=== PATIENT | male | born 1950 | race Caucasian/White ===

== ENCOUNTER 2021-06-06 18:10 | Inpatient (IN) | payer MEDICARE, SELFPAY ==
--- NOTE | ~2021-06-06 | XR_ITS ---
EXAMINATION: XR CHEST CLINICAL INFORMATION: Shortness of breath COMPARISON: CT abdomen pelvis earlier this evening, chest radiograph 11/06/2019 TECHNIQUE: Frontal view of the chest was obtained. FINDINGS: The heart and pulmonary vessels appear normal. Some minimal left basilar atelectasis is seen. No acute infiltrates, pleural effusions or lung masses are seen. There is no evidence of CHF. XR/XR chest 1V IMPRESSION: No acute intrathoracic disease.
--- NOTE | ~2021-06-06 | CT_ITS ---
EXAMINATION: CT ABDOMEN AND PELVIS WITHOUT CONTRAST CLINICAL INFORMATION: Abdominal pain with question of colitis COMPARISON: CT abdomen pelvis 11/06/[address] abdomen pelvis 06/18/2019 TECHNIQUE: Multidetector volumetric imaging was performed from the superior aspect of the liver through the pubic symphysis. Sagittal and coronal reformatted images were obtained on the technologist's workstation. This CT examination was performed using dose optimization techniques as appropriate, variously including the following: *Automated exposure control *Adjustment of mA and/or kV according to patient size (this includes techniques or standardized protocols for targeted exams where dose is matched to indication/reason for exam; i.e. extremities or head) *Use of iterative reconstruction technique DLP: 753 mGy-cm FINDINGS: LUNG BASES: The visualized lung bases are unremarkable. LIVER, GALLBLADDER, AND BILIARY TREE: The liver is normal in size, shape, and attenuation. No focal hepatic lesion or biliary ductal dilatation is present. Status post cholecystectomy PANCREAS: Unremarkable. SPLEEN: Unremarkable. ADRENAL GLANDS: Unremarkable. KIDNEYS AND URETERS: The kidneys are normal in size, shape, and attenuation. No hydronephrosis, hydroureter, or calculi seen. Some renal cysts are present including a tiny hyperattenuating Bosniak class II right renal cortical cyst. No perinephric stranding. BLADDER: Unremarkable. GASTROINTESTINAL TRACT: The patient status post colectomy. There is dilated proximal small bowel seen in the upper abdomen. Distal small bowel loops are completely decompressed (4.5 cm proximally versus 1 cm distally). Transition point appears to be similar to that noted on 06/18/2019 CT scan in the left lower quadrant. ABDOMINAL WALL: Ileostomy right abdomen. LYMPH NODES: No retroperitoneal lymphadenopathy. VASCULAR: Calcific atherosclerotic changes present in the aorta and iliofemoral vessels. PELVIC VISCERA: Unremarkable. OSSEOUS STRUCTURES: Unremarkable. CT/CT abdomen pelvis wo con IMPRESSION: Small bowel obstruction with significantly dilated proximal jejunum and decompressed small caliber ileum. A transition zone appears to be present in the pelvis, similar to that noted on the 06/18/2019 study. Fleischner guidelines were followed.
--- NOTE | ~2021-06-06 | XR_ITS ---
EXAMINATION: XR CHEST CLINICAL INFORMATION: Enteric tube placement. COMPARISON: Chest radiograph done earlier today at 10:[address] abdomen/pelvis done earlier today at 8:23 PM. TECHNIQUE: AP view of the chest was obtained. FINDINGS: An enteric tube terminates in satisfactory positioning within the stomach. EKG wires overlie the patient. Stable appearance of the cardiomediastinal silhouette. Redemonstration of left lower lobe/retrocardiac opacities and a small left pleural effusion which are slightly more apparent in this examination due to differences in patient positioning. No new focal airspace opacities. Evaluation of pneumothorax is suboptimal since the lung apices are outside of the field of view. No acute osseous abnormalities. Dilated loops of small bowel are best appreciated on a CT of the abdomen from a few hours earlier. XR/XR chest 1V IMPRESSION: Enteric tube terminates in appropriate positioning within the stomach body. Left lower lobe/retrocardiac opacities are likely related with subsegmental atelectasis. Trace amount of left-sided pleural fluid.
[2021-06-06 18:22] VITALS: BP 118/72; BP 153/73; PULSE 82; PULSE 90; RESP 18; TEMP 36.8; O2SAT 97; O2SAT 98; BMI 31.9
--- NOTE | 2021-06-06 18:30 | ED.GENADULT ---
HPI - General Adult General Chief complaint: General Medical Stated complaint: NAUSEA,VOMITING,CHILLS Time Seen by Provider: 06/06/21 18:30 Source: patient Mode of arrival: EMS Limitations: no limitations History of Present Illness HPI narrative: Patient status post right hip replacement One week on 05/25/21 ago 3 days after discharge patient complaining of nausea vomiting and loose stools in the colostomy bag with chills no fever diffuse abdominal cramps+ no other family members sick stool is darkish in color patient is on Eliquis and taking Pepto-Bismol no shortness of breath no cough Related Data Home Medications Medication Instructions Recorded Confirmed abacavir 600 mg-dolutegravir 50 1 tab PO DAILY 06/06/21 06/06/21 mg-lamivudine 300 mg tablet (Triumeq) acetaminophen 500 mg tablet 500 mg PO BID PRN 06/06/21 06/06/21 albuterol sulfate 90 mcg/actuation 2 puff INHALATION QID PRN 06/06/21 06/06/21 aerosol inhaler amlodipine 10 mg tablet 10 mg PO DAILY 06/06/21 06/06/21 apixaban 2.5 mg tablet 2.5 mg PO BID 06/06/21 06/06/21 buprenorphine 8 mg-naloxone 2 mg 3 film SUBLINGUAL DAILY 06/06/21 06/06/21 sublingual film buspirone 5 mg tablet 5 mg PO TID 06/06/21 06/06/21 carvedilol 12.5 mg tablet 12.5 mg PO BID 06/06/21 06/06/21 cetirizine 10 mg tablet 10 mg PO DAILY PRN 06/06/21 06/06/21 diclofenac sodium 1 % topical gel 2 g TOPICAL BID 06/06/21 06/06/21 gabapentin 600 mg tablet 600 mg PO BID 06/06/21 06/06/21 hydrochlorothiazide 12.5 mg tablet 12.5 mg PO DAILY 06/06/21 06/06/21 hydromorphone 4 mg tablet 4 mg PO Q3H PRN 06/06/21 06/06/21 omeprazole 20 mg capsule,delayed 20 mg PO DAILY@0630 06/06/21 06/06/21 release pravastatin 40 mg tablet 40 mg PO BEDTIME 06/06/21 06/06/21 sertraline 50 mg tablet 75 mg PO DAILY 06/06/21 06/06/21 sitagliptin 50 mg tablet (Januvia) 50 mg PO DAILY 06/06/21 06/06/21 trazodone 100 mg tablet 100 mg PO BEDTIME PRN 06/06/21 06/06/21 Allergies Allergy/AdvReac Type Severity Reaction Status Date / Time ampicillin [AMPICILLIN] Allergy Mild HIVES Unverified 01/15/20 15:10 aspirin [ASPIRIN] Allergy Unknown RASH Unverified 01/15/20 15:10 Review of Systems Review of Systems: Yes all other systems are reviewed and are negative [facility] Past Medical History Medical History (Updated 06/07/21 @ 01:17 by Carlo Mirza MD) Chronic hepatitis Chronic use of nonprescription opiate drugs CKD (chronic kidney disease) Diabetes mellitus HIV (human immunodeficiency virus infection) HTN (hypertension), benign Hyperlipemia Pancreatitis Ulcerative colitis Surgical History (Updated 06/06/21 @ 21:58 by Carlo Mirza MD) H/O colectomy History of total left knee replacement (TKR) Hx of cholecystectomy Hx of splenectomy Status post right hip replacement Social History Social History Alcohol intake: never Patient Tobacco Use Status: Never used Tobacco Use of substances other than those prescribed or required for medical reasons: No Advance Directives: No Advance Directives Information Provided: Yes Physical Exam Vital Signs: Vital Signs: Last Vital Signs Temp 98.3 F 06/07/21 00:54 Pulse 86 06/07/21 00:54 Resp 15 06/07/21 00:54 BP 162/72 H 06/07/21 00:54 Pulse Ox 97 06/06/21 23:17 BMI result Body Mass Index 31.9 Appearance: Alert. Oriented X3. in mild distress. Eyes: Pallor+ no icterus ENT: Pharynx normal. Oral Mucosa moist Neck: Normal inspection. Neck supple. CVS: Normal heart rate and rhythm. Pulses normal. Respiratory: No respiratory distress. Equal air entry bilateral, no wheezing/rales/rhonchi Abdomen: slight distended , diffuse abdominal tenderness no rebound tenderness or guarding close him back in place with liquid dark maroon colored stool, guaiac positive, Bowel sounds are present, no mass palpable, no CVA tenderness Skin: Skin warm and dry. Normal skin color. Normal skin turgor. Extremities: Right leg edema ++ No calf tenderness right hip postop Neuro: Oriented X 3. No motor deficit. Medical Decision Making MDM Narrative Medical decision making narrative: Patient CT scan of the abdomen showed small-bowel obstruction with significant GI bleed on Eliquis hemoglobin dropped to 6.5 will give blood transfusion admit for GI bleed and MARY JO a G-tube placed drained clear liquid Lab Data Lab results reviewed: Yes I reviewed the patient's lab results. Result diagrams: 06/06/21 20:54 06/06/21 20:54 Labs: Lab Results 06/06/21 06/06/21 06/06/21 Range/Units 19:05 19:21 19:58 WBC (4.8-10.8) X10*3/uL RBC (4.60-5.80) X10*6/uL Hgb (14.0-18.0) g/dl Hct (42.0-52.0) % MCV (80.0-98.0) fL MCH (27.0-33.0) pg MCHC (31.0-36.0) g/dl RDW (11.0-16.0) % Plt Count (160-400) X10*3/uL MPV (9.4-12.4) fL Immature Gran % (Auto) (0.0-0.4) % Neut % (Auto) (45-73) % Lymph % (Auto) (20-40) % [place] % (Auto) (2-11) % Eos % (Auto) (0-4) % Baso % (Auto) (0-2) % Lymph # (Auto) (1.2-4.9) X10*3/uL [place] # (Auto) (0.1-1.2) X10*3/uL Eos # (Auto) (0.0-0.4) X10*3/uL Baso # (Auto) (0.0-0.2) X10*3/uL Abs Immat Gran (auto) (0.00-0.03) X10*3/uL Absolute Neuts (auto) (2.0-8.3) x10*3/uL Absolute Nucleated RBC (0.0-0.012) X10*3/uL Nucleated RBC % (auto) (0.0-0.2) /100WBC PT (9.9-13.0) SEC INR (0.9-1.1) APTT (24.1-38.0) SEC Sodium (135-145) mmol/L Potassium (3.3-5.1) mmol/L Chloride (96-108) mmol/L Carbon Dioxide (22-29) mmol/L Anion Gap (12-20) BUN (9-16) mg/dL Creatinine (0.5-1.4) mg/dL Estim Creat Clear Calc Estimated GFR Random Glucose (60-115) mg/dL Lactic Acid (0.5-2.0) mmol/L Calcium (8.4-10.2) mg/dL Magnesium (1.6-2.6) mg/dL Total Bilirubin (0.0-1.0) mg/dL AST (5-37) U/L ALT (0-40) U/L Alkaline Phosphatase (39-117) U/L Total Protein (6.5-8.0) g/dL Albumin (3.5-5.0) g/dL Urine Color Urine Appearance Urine pH (5.0-8.0) Ur Specific [place] (1.005-1.025) Urine Protein (NEG-TRACE) MG/DL Urine Glucose (UA) (NEG) MG/DL Urine Ketones (NEG) MG/DL Urine Blood (NEG) Urine Nitrite (NEG) Ur Leukocyte Esterase (NEG) Stool Occult Blood POSITIVE (NEGATIVE) COVID-19 (RAYNA) Negative (Negative) COVID-19 Clin Com See Note Blood Type O Positive Antibody Screen NEGATIVE Crossmatch See Detail 06/06/21 06/06/21 06/06/21 Range/Units 20:06 20:54 20:54 WBC 20.0 H (4.8-10.8) X10*3/uL RBC 1.93 L (4.60-5.80) X10*6/uL Hgb 6.5 L* (14.0-18.0) g/dl Hct 19.6 L* (42.0-52.0) % MCV 101.6 H (80.0-98.0) fL MCH 33.7 H (27.0-33.0) pg MCHC 33.2 (31.0-36.0) g/dl RDW 14.6 (11.0-16.0) % Plt Count 334 (160-400) X10*3/uL MPV 9.6 (9.4-12.4) fL Immature Gran % (Auto) 1.0 H (0.0-0.4) % Neut % (Auto) 84.6 H (45-73) % Lymph % (Auto) 10.9 L (20-40) % [place] % (Auto) 3.1 (2-11) % Eos % (Auto) 0.0 (0-4) % Baso % (Auto) 0.4 (0-2) % Lymph # (Auto) 2.2 (1.2-4.9) X10*3/uL [place] # (Auto) 0.6 (0.1-1.2) X10*3/uL Eos # (Auto) 0.0 (0.0-0.4) X10*3/uL Baso # (Auto) 0.1 (0.0-0.2) X10*3/uL Abs Immat Gran (auto) 0.19 H (0.00-0.03) X10*3/uL Absolute Neuts (auto) 17.0 H (2.0-8.3) x10*3/uL Absolute Nucleated RBC 0.020 H (0.0-0.012) X10*3/uL Nucleated RBC % (auto) 0.1 (0.0-0.2) /100WBC PT (9.9-13.0) SEC INR (0.9-1.1) APTT (24.1-38.0) SEC Sodium 137 (135-145) mmol/L Potassium 4.6 (3.3-5.1) mmol/L Chloride 107 (96-108) mmol/L Carbon Dioxide 23 (22-29) mmol/L Anion Gap 12 (12-20) BUN 68 H (9-16) mg/dL Creatinine 2.49 H (0.5-1.4) mg/dL Estim Creat Clear Calc 28.1 Estimated GFR 26 Random Glucose 165 H (60-115) mg/dL Lactic Acid (0.5-2.0) mmol/L Calcium 7.7 L (8.4-10.2) mg/dL Magnesium 1.5 L (1.6-2.6) mg/dL Total Bilirubin 0.4 (0.0-1.0) mg/dL AST 11 (5-37) U/L ALT 9 (0-40) U/L Alkaline Phosphatase 60 (39-117) U/L Total Protein 4.9 L (6.5-8.0) g/dL Albumin 2.7 L (3.5-5.0) g/dL Urine Color YELLOW Urine Appearance CLEAR Urine pH 5.5 (5.0-8.0) Ur Specific [place] 1.015 (1.005-1.025) Urine Protein NEG (NEG-TRACE) MG/DL Urine Glucose (UA) NEG (NEG) MG/DL Urine Ketones NEG (NEG) MG/DL Urine Blood NEG (NEG) Urine Nitrite NEG (NEG) Ur Leukocyte Esterase NEG (NEG) Stool Occult Blood (NEGATIVE) COVID-19 (RAYNA) (Negative) COVID-19 Clin Com Blood Type Antibody Screen Crossmatch 06/06/21 06/06/21 Range/Units 20:54 20:54 WBC (4.8-10.8) X10*3/uL RBC (4.60-5.80) X10*6/uL Hgb (14.0-18.0) g/dl Hct (42.0-52.0) % MCV (80.0-98.0) fL MCH (27.0-33.0) pg MCHC (31.0-36.0) g/dl RDW (11.0-16.0) % Plt Count (160-400) X10*3/uL MPV (9.4-12.4) fL Immature Gran % (Auto) (0.0-0.4) % Neut % (Auto) (45-73) % Lymph % (Auto) (20-40) % [place] % (Auto) (2-11) % Eos % (Auto) (0-4) % Baso % (Auto) (0-2) % Lymph # (Auto) (1.2-4.9) X10*3/uL [place] # (Auto) (0.1-1.2) X10*3/uL Eos # (Auto) (0.0-0.4) X10*3/uL Baso # (Auto) (0.0-0.2) X10*3/uL Abs Immat Gran (auto) (0.00-0.03) X10*3/uL Absolute Neuts (auto) (2.0-8.3) x10*3/uL Absolute Nucleated RBC (0.0-0.012) X10*3/uL Nucleated RBC % (auto) (0.0-0.2) /100WBC PT 14.9 H (9.9-13.0) SEC INR 1.3 H (0.9-1.1) APTT 30.8 (24.1-38.0) SEC Sodium (135-145) mmol/L Potassium (3.3-5.1) mmol/L Chloride (96-108) mmol/L Carbon Dioxide (22-29) mmol/L Anion Gap (12-20) BUN (9-16) mg/dL Creatinine (0.5-1.4) mg/dL Estim Creat Clear Calc Estimated GFR Random Glucose (60-115) mg/dL Lactic Acid 1.3 (0.5-2.0) mmol/L Calcium (8.4-10.2) mg/dL Magnesium (1.6-2.6) mg/dL Total Bilirubin (0.0-1.0) mg/dL AST (5-37) U/L ALT (0-40) U/L Alkaline Phosphatase (39-117) U/L Total Protein (6.5-8.0) g/dL Albumin (3.5-5.0) g/dL Urine Color Urine Appearance Urine pH (5.0-8.0) Ur Specific [place] (1.005-1.025) Urine Protein (NEG-TRACE) MG/DL Urine Glucose (UA) (NEG) MG/DL Urine Ketones (NEG) MG/DL Urine Blood (NEG) Urine Nitrite (NEG) Ur Leukocyte Esterase (NEG) Stool Occult Blood (NEGATIVE) COVID-19 (RAYNA) (Negative) COVID-19 Clin Com Blood Type Antibody Screen Crossmatch Critical Care Time Critical Care Time Critical Care Time: Yes Total Critical Care Time: 55 Attestation: I spent 55 minutes of critical care, with interventions, assessments, speaking to patient, consultants. Discharge Plan Discharge Clinical Impression: Complete small bowel obstruction, Severe anemia, Acute GI bleeding, Acute kidney injury Patient Disposition: Admitted As Inpatient
--- NOTE | 2021-06-06 18:31 | PC.NURSE ---
pt a&ox3, reports nausea, vomiting, diarrhea, dizziness, weak, for about 3 days. right hip replacement about a week ago. colostomy bag for 5 years. provider with pt.
[2021-06-06] MEDS: 0.9 % Sodium Chloride 1,000 ML 999 ML IV ×3 (19:08→21:44)
[2021-06-06] MEDS: ondansetron HCL 4 MG/2 ML VIAL IVPUSH (19:09)
[2021-06-06 19:24] LABS: COVID-19 Test Negative (Negative); IDNOW Serial# 9DD0AD1C
[2021-06-06 19:28] LABS: OBS Int Ctl Valid YES; OBS1 POSITIVE (NEGATIVE)
--- NOTE | 2021-06-06 19:34 | PC.NURSE ---
tech to draw labs, iv site wouldnt draw
--- NOTE | 2021-06-06 19:52 | PC.NURSE ---
colostomy bag emptied, 200ml of rosie red blood, OBX sent to lab per provider order.
[2021-06-06 20:16] LABS: Appearance Urine CLEAR; Color Urine YELLOW; Glucose Urine UA NEG (NEG); Leukocyte Esterase Urine NEG (NEG); Nitrite Urine NEG (NEG); PH 5.5 (5.0-8.0); Specific Gravity - Urine 1.015 (1.005-1.025); Urine Blood NEG (NEG); Urine Ketones NEG (NEG); Urine Protein NEG (NEG-TRACE)
[2021-06-06 20:59] LABS: MANUAL DIFF FLAG NO
[2021-06-06 21:00] LABS: Basophils Absolute Auto 0.1 X10*3/uL (0.0-0.2); Basophils Percent Auto 0.4 % (0-2); Imm Gran Abs Auto 0.19 X10*3/uL (0.00-0.03); Lymphocytes Absolute Auto 2.2 X10*3/uL (1.2-4.9); Lymphocytes Percent Auto 10.9 % (20-40); Mean Corpuscular HGB Conc 33.2 g/dl (31.0-36.0); Mean Corpuscular Hemoglobin 33.7 pg (27.0-33.0); Mean Corpuscular Volume 101.6 fL (80.0-98.0); Mean Platelet Volume 9.6 fL (9.4-12.4); Monocytes Absolute Auto 0.6 X10*3/uL (0.1-1.2); Monocytes Percent Auto 3.1 % (2-11); NRBC Pct Auto 0.1 /100WBC (0.0-0.2); Neutrophils Percent Auto 84.6 % (45-73); Platelet Count 334 X10*3/uL (160-400); Red Blood Count 1.93 X10*6/uL (4.60-5.80); Red Cell Distribution Width 14.6 % (11.0-16.0)
[2021-06-06 21:06] LABS: Hemoglobin 6.5 g/dl (14.0-18.0)
[2021-06-06 21:07] LABS: Hematocrit 19.6 % (42.0-52.0)
[2021-06-06 21:09] LABS: Lactic Acid 1.3 mmol/L (0.5-2.0)
[2021-06-06 21:15] LABS: Alanine Aminotransferase 9 U/L (0-40); Albumin Level 2.7 g/dL (3.5-5.0); Alkaline Phosphatase 60 U/L (39-117); Anion Gap 12 (12-20); Aspartate Amino Transferase 11 U/L (5-37); Bilirubin Total 0.4 mg/dL (0.0-1.0); Blood Urea Nitrogen 68 mg/dL (9-16); Calcium 7.7 mg/dL (8.4-10.2); Carbon Dioxide 23 mmol/L (22-29); Chloride 107 mmol/L (96-108); Creatinine Clr Calc Pharmacy 28.1; Estimated Glomerular Filt Rate 26; Glucose Random 165 mg/dL (60-115); Magnesium 1.5 mg/dL (1.6-2.6); Potassium 4.6 mmol/L (3.3-5.1); Sodium 137 mmol/L (135-145); Total Protein 4.9 g/dL (6.5-8.0)
[2021-06-06 21:16] LABS: INTERNATIONAL NORM RATIO 1.3 (0.9-1.1); Prothrombin Time 14.9 SEC (9.9-13.0)
[2021-06-06 21:18] LABS: Partial Thromboplastin Time 30.8 SEC (24.1-38.0)
--- NOTE | 2021-06-06 21:39 | ECG_ITS ---
Test Reason : SEPSIS Blood Pressure : / mmHG Vent. Rate : 082 BPM Atrial Rate : 082 BPM P-R Int : 160 ms QRS Dur : 076 ms QT Int : 382 ms P-R-T Axes : -01 000 034 degrees QTc Int : 446 ms Normal sinus rhythm Normal ECG When compared with ECG of 06-NOV-2019 02:11, No significant change was found Referred By: Carlo Mirza Electronically Signed By:Miah Lyon
[2021-06-06] MEDS: Morphine Sulfate 4 MG/ML CARTRIDGE IVPUSH (21:41)
[2021-06-06] MEDS: Pantoprazole Sodium 40 MG/10 ML VIAL 80 MG IVPUSH (21:44)
[2021-06-06] MEDS: Piperacillin Sodium/Tazobactam 3.375 GM in 0.9 % Sodium Chloride 50 ML IV (21:44)
--- NOTE | 2021-06-06 21:45 | PHA.MEDREC ---
MED REC COMPLETE, Patient states he has not had his medications for a few days Pharmacy Consult ? Medication Reconciliation Pharmacy has completed the medication reconciliation.
--- NOTE | 2021-06-06 22:40 | PC.NURSE ---
NGT placed by Linda ADAMSON. XRay at bedside with MD to confirm placement. NGT attached to ILWS. Pt aware of plan for a transfusion.
[2021-06-06 22:46] VITALS: PULSE 84; RESP 12
--- NOTE | 2021-06-06 23:11 | P.HPHOSP_ITS ---
History of Present Illness Date of Service: 06/06/21 Chief Complaint: abd pain this is a 71-year-old male with past medical history of diabetes, HIV, HTN, hyperlipidemia, ulcerative colitis status post colostomy, chronic hepatitis, CKD who presents to the hospital with complaints of abdominal pain, nausea vomiting, blood in urostomy bag that started today. Patient had right hip replacement about a week ago and is currently on Eliquis for prophylaxis, he reports tenderness and abdominal pain diffuse, nonradiating, associated with vomiting, also started today, he reports that he has been seeing feces in his ostomy bag that has been bloody. He denies any chest pain, no shortness of breath, no lower extremity edema, no headache or change in vision, no numbness weakness or tingling. On arrival to the ED patient is hemodynamically stable with no significant abnormal vitals Labs are significant for WBC count of 20.7, hemoglobin of 6.5 with a baseline around 12, hematocrit of 19.6, PT of 14.9, INR of 1.3, BUN of 68, creatinine of 2.49 with a baseline around 1, magnesium of 1.5, albumin of 2.7, UA is negative, stool occult blood positive, Abdominal CT shows small bowel obstruction with significant dilated proximal jejunum and decompressed small caliber ileum. NG tube in place and patient will be admitted for further management Review of Systems Review of Systems: Yes all other systems are reviewed and are negative [facility], [facility] Medical History Chronic hepatitis Chronic use of nonprescription opiate drugs CKD (chronic kidney disease) Diabetes mellitus HIV (human immunodeficiency virus infection) HTN (hypertension), benign Hyperlipemia Pancreatitis Ulcerative colitis Surgical History H/O colectomy History of total left knee replacement (TKR) Hx of cholecystectomy Hx of splenectomy Status post right hip replacement Social History Alcohol intake: never Patient Tobacco Use Status: Never used Tobacco Use of substances other than those prescribed or required for medical reasons: No Advance Directives: No Advance Directives Information Provided: Yes Meds Allergies Allergy/AdvReac Type Severity Reaction Status Date / Time ampicillin [AMPICILLIN] Allergy Mild HIVES Unverified 01/15/20 15:10 aspirin [ASPIRIN] Allergy Unknown RASH Unverified 01/15/20 15:10 Active Medications: Current Medications Acetaminophen (Acetaminophen 325 Mg Tablet) 650 mg PO Q6H PRN PRN Reason: Pain, Mild (Pain Scale 1-3) Docusate Sodium (Docusate Sodium 100 Mg Capsule) 100 mg PO DAILY PRN PRN Reason: Constipation Lactated Ringer's (Lr) 1,000 mls @ 80 mls/hr IVCONT .[id number] [facility] [place] Ondansetron HCl (Ondansetron Hcl 4 Mg/2 Ml Vial) 4 mg IVPUSH Q8H PRN PRN Reason: Nausea and Vomiting Pharmacy Consult (Consult Rx Perform Med Rec) 1 each MISCELLANE ONCE PRN PRN Reason: Consult order Sodium Chloride (0.9 % Sodium Chloride Flush 3 Ml Syringe) 3 ml IVFLUSH QSHIFT [facility] Home Medications Medication Instructions Recorded Confirmed Last Taken Type abacavir 600 mg-dolutegravir 50 1 tab PO DAILY 06/06/21 06/06/21 Unknown History mg-lamivudine 300 mg tablet (Triumeq) acetaminophen 500 mg tablet 500 mg PO BID PRN 06/06/21 06/06/21 Unknown History albuterol sulfate 90 mcg/actuation 2 puff INHALATION QID PRN 06/06/21 06/06/21 Unknown History aerosol inhaler amlodipine 10 mg tablet 10 mg PO DAILY 06/06/21 06/06/21 Unknown History apixaban 2.5 mg tablet 2.5 mg PO BID 06/06/21 06/06/21 Unknown History buprenorphine 8 mg-naloxone 2 mg 3 film SUBLINGUAL DAILY 06/06/21 06/06/21 Unknown History sublingual film buspirone 5 mg tablet 5 mg PO TID 06/06/21 06/06/21 Unknown History carvedilol 12.5 mg tablet 12.5 mg PO BID 06/06/21 06/06/21 Unknown History cetirizine 10 mg tablet 10 mg PO DAILY PRN 06/06/21 06/06/21 Unknown History diclofenac sodium 1 % topical gel 2 g TOPICAL BID 06/06/21 06/06/21 Unknown History gabapentin 600 mg tablet 600 mg PO BID 06/06/21 06/06/21 Unknown History hydrochlorothiazide 12.5 mg tablet 12.5 mg PO DAILY 06/06/21 06/06/21 Unknown History hydromorphone 4 mg tablet 4 mg PO Q3H PRN 06/06/21 06/06/21 Unknown History omeprazole 20 mg capsule,delayed 20 mg PO DAILY@0630 06/06/21 06/06/21 Unknown History release pravastatin 40 mg tablet 40 mg PO BEDTIME 06/06/21 06/06/21 Unknown History sertraline 50 mg tablet 75 mg PO DAILY 06/06/21 06/06/21 Unknown History sitagliptin 50 mg tablet (Januvia) 50 mg PO DAILY 06/06/21 06/06/21 Unknown History trazodone 100 mg tablet 100 mg PO BEDTIME PRN 06/06/21 06/06/21 Unknown History Physical Exam Vital Signs and Narrative: Vital Signs: Last Vital Signs Temp 98.3 F 06/06/21 18:22 Pulse 84 06/06/21 22:46 Resp 12 06/06/21 22:46 BP 153/73 H 06/06/21 18:22 Pulse Ox 97 06/06/21 18:22 BMI result Body Mass Index 31.9 Const: General: cooperative and no acute distress Orientation/consciousn ess: patient oriented x3 Eyes: General: appearance normal, both eyes and all related structures Pupils: Equal, round and reactive pupils present Resp: Effort & Inspection: normal respiratory effort Auscultation: clear to auscultation bilaterally Cardio: Rate: regular rate Rhythm: regular rhythm GI: Other: yesterday bag in place with maroon-colored stool abdomen is soft, hyperactive bowel sounds Skin: General skin exam: no rashes or lesions noted Neuro: General: patient oriented x3 Cranial nerves: Yes Equal, round and reactive pupils present Cognition (Neuro): normal cognition Extrem: General: Yes normal to inspection and Yes no pedal edema Results Labs CBC and Chem 7: 06/07/21 06:14 06/07/21 06:14 Labs: Laboratory Results - last 24 hr 06/06/21 06/06/21 06/06/21 19:05 19:21 19:58 Hgb MCV MCH MCHC RDW Plt Count MPV Immature Gran % (Auto) Neut % (Auto) Lymph % (Auto) [place] % (Auto) Eos % (Auto) Baso % (Auto) Lymph # (Auto) [place] # (Auto) Eos # (Auto) Baso # (Auto) Abs Immat Gran (auto) Absolute Neuts (auto) Absolute Nucleated RBC Nucleated RBC % (auto) PT INR APTT Anion Gap Estim Creat Clear Calc Estimated GFR Random Glucose Lactic Acid Calcium Magnesium Total Bilirubin AST ALT Alkaline Phosphatase Total Protein Albumin Urine Color Urine Appearance Urine pH Ur Specific [place] Urine Protein Urine Glucose (UA) Urine Ketones Urine Blood Urine Nitrite Ur Leukocyte Esterase Stool Occult Blood POSITIVE COVID-19 (RAYNA) Negative COVID-19 Clin Com See Note Blood Type O Positive Antibody Screen NEGATIVE Crossmatch See Detail 06/06/21 06/06/21 06/06/21 20:06 20:54 20:54 Hgb 6.5 L* MCV 101.6 H MCH 33.7 H MCHC 33.2 RDW 14.6 Plt Count 334 MPV 9.6 Immature Gran % (Auto) 1.0 H Neut % (Auto) 84.6 H Lymph % (Auto) 10.9 L [place] % (Auto) 3.1 Eos % (Auto) 0.0 Baso % (Auto) 0.4 Lymph # (Auto) 2.2 [place] # (Auto) 0.6 Eos # (Auto) 0.0 Baso # (Auto) 0.1 Abs Immat Gran (auto) 0.19 H Absolute Neuts (auto) 17.0 H Absolute Nucleated RBC 0.020 H Nucleated RBC % (auto) 0.1 PT INR APTT Anion Gap 12 Estim Creat Clear Calc 28.1 Estimated GFR 26 Random Glucose 165 H Lactic Acid Calcium 7.7 L Magnesium 1.5 L Total Bilirubin 0.4 AST 11 ALT 9 Alkaline Phosphatase 60 Total Protein 4.9 L Albumin 2.7 L Urine Color YELLOW Urine Appearance CLEAR Urine pH 5.5 Ur Specific [place] 1.015 Urine Protein NEG Urine Glucose (UA) NEG Urine Ketones NEG Urine Blood NEG Urine Nitrite NEG Ur Leukocyte Esterase NEG Stool Occult Blood COVID-19 (RAYNA) COVID-19 Clin Com Blood Type Antibody Screen Crossmatch 06/06/21 06/06/21 20:54 20:54 Hgb MCV MCH MCHC RDW Plt Count MPV Immature Gran % (Auto) Neut % (Auto) Lymph % (Auto) [place] % (Auto) Eos % (Auto) Baso % (Auto) Lymph # (Auto) [place] # (Auto) Eos # (Auto) Baso # (Auto) Abs Immat Gran (auto) Absolute Neuts (auto) Absolute Nucleated RBC Nucleated RBC % (auto) PT 14.9 H INR 1.3 H APTT 30.8 Anion Gap Estim Creat Clear Calc Estimated GFR Random Glucose Lactic Acid 1.3 Calcium Magnesium Total Bilirubin AST ALT Alkaline Phosphatase Total Protein Albumin Urine Color Urine Appearance Urine pH Ur Specific [place] Urine Protein Urine Glucose (UA) Urine Ketones Urine Blood Urine Nitrite Ur Leukocyte Esterase Stool Occult Blood COVID-19 (RAYNA) COVID-19 Clin Com Blood Type Antibody Screen Crossmatch Imaging Radiologist's Impressions: Impressions Abdomen/Pelvis CT 06/06/21 20:33 IMPRESSION: Small bowel obstruction with significantly dilated proximal jejunum and decompressed small caliber ileum. A transition zone appears to be present in the pelvis, similar to that noted on the 06/18/2019 study. Fleischner guidelines were followed. Chest X-Ray 06/06/21 22:19 IMPRESSION: No acute intrathoracic disease. Chest X-Ray 06/06/21 22:38 IMPRESSION: Enteric tube terminates in appropriate positioning within the stomach body. Left lower lobe/retrocardiac opacities are likely related with subsegmental atelectasis. Trace amount of left-sided pleural fluid. Assessment and Plan (1) Complete small bowel obstruction: Status: Acute (2) Acute GI bleeding: Status: Acute (3) Acute kidney injury: Status: Acute (4) Severe anemia: Status: Acute Plan 71-year-old male with past medical history of HIV hypertension, diabetes who presents to the hospital with complaints of abdominal pain found to have small- bowel obstruction as well as acute GI bleed with anemia # acute small-bowel obstruction - most likely in the setting of history of colostomy as well as ulcerative colitis - NG tube in place - keep NPO - General surgery consulted # acute GI bleed anemia - patient with a recent hip replacement on Eliquis for prophylaxis present with a hemoglobin of 6.9 and stool occult positive - status post 2 units of PRBC transfuse in the ED - hemoglobin not at baseline - will hold Eliquis - GI consulted # MARY JO - possibly prerenal in the setting of GI bleed - IV fluids - follow BMP # recent hip replacement - SCDs for prophylaxis pending GI consultation and further recommendation in regards to prophylaxis # hypertension - stable - continue home meds - will hold hydrochlorothiazide in the setting of MARY JO # HIV - continue antiretrovirals # diabetes - continue home insulin, will add low-dose sliding scale insulin, diabetic diet DVT prophylaxis: SCDs Quality Stroke Does the patient have a stroke diagnosis?: No VTE Prior VTE?: No VTE Risk Level:: Medical - moderate - high VTE Device Contraindication: N/A - Device Ordered VTE Drug Contraindication: Treatment Not Tolerated
[2021-06-06 23:17] VITALS: BP 153/78; PULSE 85; RESP 15; TEMP 36.8; O2SAT 97
[2021-06-06 23:51] VITALS: BP 154/69; PULSE 87; RESP 16; TEMP 36.5
[2021-06-07] VITALS (10 sets, daily range): BP systolic 131–167; BP diastolic 59–79; PULSE 60–89; RESP 12–18; TEMP 36.1–37.1; O2SAT 95–97
[2021-06-07] MEDS: Morphine Sulfate 4 MG/ML CARTRIDGE IVPUSH ×2 (00:03→08:35)
[2021-06-07] MEDS: ondansetron HCL 4 MG/2 ML VIAL IVPUSH (00:03)
[2021-06-07] MEDS: traZODone HCL 100 MG TABLET PO (00:04)
[2021-06-07] MEDS: 0.9 % Sodium Chloride Flush 3 ML SYRINGE IVFLUSH ×2 (00:06→15:50)
[2021-06-07] MEDS: Lactated Ringers 1,000 ML 80 ML IVCONT ×4 (00:09→16:08)
--- NOTE | 2021-06-07 00:59 | PC.NURSE ---
1st unit of PRBC infused w/o difficulty. site intact. pt rating abd pain 12/07. pt medicated for pain. report given to JUAN DIEGO Lyman. Emptied approx 300ml of dk bloody stool from colostomy bag. pt being moved to overflow in stretcher w/o distress.
[2021-06-07 06:19] LABS: MANUAL DIFF FLAG NO
[2021-06-07 06:24] LABS: Basophils Absolute Auto 0.1 X10*3/uL (0.0-0.2); Basophils Percent Auto 0.4 % (0-2); Eosinophils Absolute Auto 0.1 X10*3/uL (0.0-0.4); Eosinophils Percent Auto 0.3 % (0-4); Hematocrit 26.6 % (42.0-52.0); Hemoglobin 9.1 g/dl (14.0-18.0); Imm Gran Abs Auto 0.15 X10*3/uL (0.00-0.03); Imm Gran Pct Auto 0.7 % (0.0-0.4); Lymphocytes Absolute Auto 4.1 X10*3/uL (1.2-4.9); Lymphocytes Percent Auto 19.9 % (20-40); Mean Corpuscular HGB Conc 34.2 g/dl (31.0-36.0); Mean Corpuscular Hemoglobin 33.3 pg (27.0-33.0); Mean Corpuscular Volume 97.4 fL (80.0-98.0); Mean Platelet Volume 9.9 fL (9.4-12.4); Monocytes Absolute Auto 1.5 X10*3/uL (0.1-1.2); Monocytes Percent Auto 7.1 % (2-11); NRBC Pct Auto 0.2 /100WBC (0.0-0.2); Neutrophils Absolute Auto 14.8 x10*3/uL (2.0-8.3); Neutrophils Percent Auto 71.6 % (45-73); Platelet Count 312 X10*3/uL (160-400); Red Blood Count 2.73 X10*6/uL (4.60-5.80); Red Cell Distribution Width 14.1 % (11.0-16.0); White Blood Count 20.7 X10*3/uL (4.8-10.8)
--- NOTE | 2021-06-07 06:40 | PC.NURSE ---
Patient tolerated blood transfusion without complication, VSS. Patient's colostomy bag was changed, patient educated regarding colostomy.
[2021-06-07 06:41] LABS: Anion Gap 13 (12-20); Blood Urea Nitrogen 58 mg/dL (9-16); Calcium 7.8 mg/dL (8.4-10.2); Carbon Dioxide 20 mmol/L (22-29); Chloride 109 mmol/L (96-108); Creatinine Clr Calc Pharmacy 32.7; Estimated Glomerular Filt Rate 31; Glucose Random 140 mg/dL (60-115); Potassium 4.3 mmol/L (3.3-5.1); Sodium 138 mmol/L (135-145)
[2021-06-07 08:15] LABS: Glucose, Whole Blood 143 mg/dL (60-115)
--- NOTE | 2021-06-07 08:20 | PM.CNGS ---
History of Present Illness Consult details Consult date: 06/07/21 Requesting physician: Gina Hi Narrative: 71-year-old male patient with a past history of diabetes, HIV, hypertension, ulcerative colitis status post colectomy with ileostomy performed approximately 10 years ago at [facility] now presenting with complaints of abdominal pain diffusely throughout his abdomen. Patient was also noted to have bloody stool per ostomy he has been on Eliquis following have placement approximately 1 week ago. He is also being treated with pain medication because of hip pain. Patient also reports nausea and vomiting but denied fever or chills. Upon presentation to the emergency department he was noted to be diffusely tender with bloody stool in his bag. WBC of 20.[address] of the abdomen and pelvis was obtained which revealed dilated proximal small bowel with decompressed distal small bowel suggestive of a small-bowel obstruction. . A nasogastric tube was placed in the emergency department. Patient is admitted to the hospital service management. Review of Systems Constitutional: Constitutional: Denies chills, Denies fever(s), Denies headache(s) and Reports poor appetite ENT: Reports dizziness and Denies headache(s) Cardiovascular: Cardiovascular: Denies chest pain, Denies rapid heart rate, Denies palpitations and Denies slow heart rate Respiratory: Respiratory: Denies chest congestion, Denies cough, Denies pain on inspiration and Denies wheezing Gastrointestinal: Gastrointestinal: Reports abdominal pain, Reports melena, Reports bloating, Denies change in stool character, Denies constipation, Denies diarrhea, Denies nausea, Denies vomiting and Denies hematemesis Musculoskeletal: Musculoskeletal: Denies back pain, Denies arthralgias, Denies joint swelling and Denies numbness Integumentary/Breasts: Skin/Breast: Denies change in pigmentation, Denies erythema and Denies rash Neurologic: Reports dizziness, Denies headache(s) and Denies numbness Psychiatric: Psychiatric: Denies anxiety and Denies depression Endocrine: Endocrine: Denies palpitations Hematologic/Lymphatic: Hematologic/Lymphatic: Denies easy bleeding, Denies easy bruising and Denies lymphadenopathy Allergic/Immunologic: Allergic/Immunologic: Denies wheezing PMFSH Past Medical History Medical History Chronic hepatitis Chronic use of nonprescription opiate drugs CKD (chronic kidney disease) Diabetes mellitus HIV (human immunodeficiency virus infection) HTN (hypertension), benign Hyperlipemia Pancreatitis Ulcerative colitis Surgical History Surgical History H/O colectomy History of total left knee replacement (TKR) Hx of cholecystectomy Hx of splenectomy Status post right hip replacement Social History Social History Alcohol intake: never Patient Tobacco Use Status: Never used Tobacco Use of substances other than those prescribed or required for medical reasons: No Advance Directives: No Advance Directives Information Provided: Yes Meds Allergies Allergy/AdvReac Type Severity Reaction Status Date / Time ampicillin [AMPICILLIN] Allergy Mild HIVES Unverified 01/15/20 15:10 aspirin [ASPIRIN] Allergy Unknown RASH Unverified 01/15/20 15:10 Active Medications: Current Medications Acetaminophen (Acetaminophen 325 Mg Tablet) 650 mg PO Q6H PRN PRN Reason: Pain, Mild (Pain Scale 1-3) Albuterol Sulfate (Albuterol Sulfate 90 Mcg 8 Gm Inhaler) 2 puff INHALE QID PRN PRN Reason: Respiratory Distress Amlodipine Besylate (Amlodipine Besylate 10 Mg Tablet) 10 mg PO DAILY RASHAD; Protocol Buprenorphine/Naloxone (Buprenorphine/Naloxone 8/2 Mg Film) 3 film SUBLINGUAL DAILY RASHAD Buspirone HCl (Buspirone Hcl 5 Mg Tablet) 5 mg PO TID RASHAD Carvedilol (Carvedilol 12.5 Mg Tablet) 12.5 mg PO BID RASHAD; Protocol Dextrose (Dextrose 50 % 25 Gm/50 Ml Syringe) 25 gm IVPUSH Q15M PRN; Protocol PRN Reason: per Hypoglycemia Standing Ord. Docusate Sodium (Docusate Sodium 100 Mg Capsule) 100 mg PO DAILY PRN PRN Reason: Constipation Gabapentin (Gabapentin 600 Mg Tablet) 600 mg PO BID RASHAD Glucose (Glucose Gel 15 Gm Gel..Gram.) 15 gm PO Q15M PRN; Protocol PRN Reason: per Hypoglycemia Standing Ord. Hydromorphone HCl (Hydromorphone Hcl 4 Mg Tablet) 4 mg PO Q3H PRN PRN Reason: Pain (Scale Score 4-6) Last Admin: 06/07/21 02:18 Dose: 4 mg Documented by: Lactated Ringer's (Lr) 1,000 mls @ 80 mls/hr IVCONT .[id number] [facility] Last Admin: 06/07/21 00:09 Dose: 80 mls/hr Documented by: Insulin Human Lispro (Insulin Lispro 100 Unit/Ml 3 Ml Vial) 0 unit SUBCUT QIDACHS [facility]; Protocol Loratadine (Loratadine 10 Mg Tablet) 10 mg PO DAILY PRN PRN Reason: Allergic Symptoms Morphine Sulfate (Morphine Sulfate 4 Mg/Ml Cartridge) 4 mg IVPUSH Q4H PRN; Protocol PRN Reason: Pain, Severe (Pain Scale 7-10) Last Admin: 06/07/21 00:03 Dose: 4 mg Documented by: Non-Formulary Medication ([id number] [Triumeq]) 1 tab PO DAILY [facility] Non-Formulary Medication (Diclofenac Sodium) 2 gm TOPICAL BID [facility] Omeprazole (Omeprazole 20 Mg Capsule.Dr) 20 mg PO DAILY@0630 [facility] Last Admin: 06/07/21 07:23 Dose: Not Given Documented by: Ondansetron HCl (Ondansetron Hcl 4 Mg/2 Ml Vial) 4 mg IVPUSH Q8H PRN PRN Reason: Nausea and Vomiting Last Admin: 06/07/21 00:03 Dose: 4 mg Documented by: Pharmacy Consult (Consult Rx Perform Med Rec) 1 each MISCELLANE ONCE PRN PRN Reason: Consult order Pravastatin Sodium (Pravastatin Sodium 40 Mg Tablet) 40 mg PO BEDTIME [facility] Sertraline HCl (Sertraline Hcl 25 Mg Tablet) 75 mg PO DAILY [facility] Sodium Chloride (0.9 % Sodium Chloride Flush 3 Ml Syringe) 3 ml IVFLUSH QSHIFT [facility] Last Admin: 06/07/21 00:06 Dose: 3 ml Documented by: Trazodone HCl (Trazodone Hcl 100 Mg Tablet) 100 mg PO BEDTIME PRN PRN Reason: Sleep Last Admin: 06/07/21 00:04 Dose: 100 mg Documented by: Home Medications Medication Instructions Recorded Confirmed Last Taken Type abacavir 600 mg-dolutegravir 50 1 tab PO DAILY 06/06/21 06/06/21 Unknown History mg-lamivudine 300 mg tablet (Triumeq) acetaminophen 500 mg tablet 500 mg PO BID PRN 06/06/21 06/06/21 Unknown History albuterol sulfate 90 mcg/actuation 2 puff INHALATION QID PRN 06/06/21 06/06/21 Unknown History aerosol inhaler amlodipine 10 mg tablet 10 mg PO DAILY 06/06/21 06/06/21 Unknown History apixaban 2.5 mg tablet 2.5 mg PO BID 06/06/21 06/06/21 Unknown History buprenorphine 8 mg-naloxone 2 mg 3 film SUBLINGUAL DAILY 06/06/21 06/06/21 Unknown History sublingual film buspirone 5 mg tablet 5 mg PO TID 06/06/21 06/06/21 Unknown History carvedilol 12.5 mg tablet 12.5 mg PO BID 06/06/21 06/06/21 Unknown History cetirizine 10 mg tablet 10 mg PO DAILY PRN 06/06/21 06/06/21 Unknown History diclofenac sodium 1 % topical gel 2 g TOPICAL BID 06/06/21 06/06/21 Unknown History gabapentin 600 mg tablet 600 mg PO BID 06/06/21 06/06/21 Unknown History hydrochlorothiazide 12.5 mg tablet 12.5 mg PO DAILY 06/06/21 06/06/21 Unknown History hydromorphone 4 mg tablet 4 mg PO Q3H PRN 06/06/21 06/06/21 Unknown History omeprazole 20 mg capsule,delayed 20 mg PO DAILY@0630 06/06/21 06/06/21 Unknown History release pravastatin 40 mg tablet 40 mg PO BEDTIME 06/06/21 06/06/21 Unknown History sertraline 50 mg tablet 75 mg PO DAILY 06/06/21 06/06/21 Unknown History sitagliptin 50 mg tablet (Januvia) 50 mg PO DAILY 06/06/21 06/06/21 Unknown History trazodone 100 mg tablet 100 mg PO BEDTIME PRN 06/06/21 06/06/21 Unknown History Physical Exam Vital Signs: Vital Signs: Last Vital Signs Temp 97 F 06/07/21 02:04 Pulse 69 06/07/21 06:14 Resp 12 06/07/21 06:14 BP 164/75 H 06/07/21 06:14 Pulse Ox 96 06/07/21 06:14 BMI result Body Mass Index 31.9 Const: General: cooperative, comfortable and well developed Nutritional Appearance: well nourished Orientation/consciousness: patient oriented x3 Eyes: Sclerae: sclerae normal EOM: EOMs intact bilaterally Neck: Neck: Yes normal visual inspection Resp: Effort & Inspection: normal respiratory effort, no cough, no respiratory distress and no stridor Cardio: Jugular venous distension: no JVD GI: Inspection: Yes normal to inspection Palpation (GI): Soft to palpation, Tenderness to palpation present (GI), no guarding and not rigid Percussion: Yes normal to percussion Auscultation: normal bowel sounds Rectal Exam - Male: Yes deferred Abdomen image: 1. ileostomy in place Skin: General skin exam: dry skin Rashes: no rashes Neuro: General: patient oriented x3 and no focal motor deficits Extrem: General: Yes full ROM and Yes no clubbing, cyanosis or edema Psych: Appearance: grossly normal Results Labs Result diagrams: 06/07/21 06:14 06/07/21 06:14 Labs: Abnormal lab results 06/06/21 06/06/21 06/06/21 Range/Units 19:58 20:54 20:54 WBC 20.0 H (4.8-10.8) X10*3/uL RBC 1.93 L (4.60-5.80) X10*6/uL Hgb 6.5 L* (14.0-18.0) g/dl Hct 19.6 L* (42.0-52.0) % MCV 101.6 H (80.0-98.0) fL MCH 33.7 H (27.0-33.0) pg Immature Gran % (Auto) 1.0 H (0.0-0.4) % Neut % (Auto) 84.6 H (45-73) % Lymph % (Auto) 10.9 L (20-40) % [place] # (Auto) (0.1-1.2) X10*3/uL Abs Immat Gran (auto) 0.19 H (0.00-0.03) X10*3/uL Absolute Neuts (auto) 17.0 H (2.0-8.3) x10*3/uL Absolute Nucleated RBC 0.020 H (0.0-0.012) X10*3/uL PT (9.9-13.0) SEC INR (0.9-1.1) Chloride (96-108) mmol/L Carbon Dioxide (22-29) mmol/L BUN 68 H (9-16) mg/dL Creatinine 2.49 H (0.5-1.4) mg/dL POC Glucose (60-115) mg/dL Random Glucose 165 H (60-115) mg/dL Calcium 7.7 L (8.4-10.2) mg/dL Magnesium 1.5 L (1.6-2.6) mg/dL Total Protein 4.9 L (6.5-8.0) g/dL Albumin 2.7 L (3.5-5.0) g/dL Crossmatch See Detail 06/06/21 06/07/21 06/07/21 Range/Units 20:54 06:14 06:14 WBC 20.7 H (4.8-10.8) X10*3/uL RBC 2.73 L D (4.60-5.80) X10*6/uL Hgb 9.1 L D (14.0-18.0) g/dl Hct 26.6 L D (42.0-52.0) % MCV (80.0-98.0) fL MCH 33.3 H (27.0-33.0) pg Immature Gran % (Auto) 0.7 H (0.0-0.4) % Neut % (Auto) (45-73) % Lymph % (Auto) 19.9 L (20-40) % [place] # (Auto) 1.5 H (0.1-1.2) X10*3/uL Abs Immat Gran (auto) 0.15 H (0.00-0.03) X10*3/uL Absolute Neuts (auto) 14.8 H (2.0-8.3) x10*3/uL Absolute Nucleated RBC 0.040 H (0.0-0.012) X10*3/uL PT 14.9 H (9.9-13.0) SEC INR 1.3 H (0.9-1.1) Chloride 109 H (96-108) mmol/L Carbon Dioxide 20 L (22-29) mmol/L BUN 58 H (9-16) mg/dL Creatinine 2.14 H (0.5-1.4) mg/dL POC Glucose (60-115) mg/dL Random Glucose 140 H (60-115) mg/dL Calcium 7.8 L (8.4-10.2) mg/dL Magnesium (1.6-2.6) mg/dL Total Protein (6.5-8.0) g/dL Albumin (3.5-5.0) g/dL Crossmatch 06/07/21 Range/Units 07:44 WBC (4.8-10.8) X10*3/uL RBC (4.60-5.80) X10*6/uL Hgb (14.0-18.0) g/dl Hct (42.0-52.0) % MCV (80.0-98.0) fL MCH (27.0-33.0) pg Immature Gran % (Auto) (0.0-0.4) % Neut % (Auto) (45-73) % Lymph % (Auto) (20-40) % [place] # (Auto) (0.1-1.2) X10*3/uL Abs Immat Gran (auto) (0.00-0.03) X10*3/uL Absolute Neuts (auto) (2.0-8.3) x10*3/uL Absolute Nucleated RBC (0.0-0.012) X10*3/uL PT (9.9-13.0) SEC INR (0.9-1.1) Chloride (96-108) mmol/L Carbon Dioxide (22-29) mmol/L BUN (9-16) mg/dL Creatinine (0.5-1.4) mg/dL POC Glucose 143 H (60-115) mg/dL Random Glucose (60-115) mg/dL Calcium (8.4-10.2) mg/dL Magnesium (1.6-2.6) mg/dL Total Protein (6.5-8.0) g/dL Albumin (3.5-5.0) g/dL Crossmatch Short CBC 06/06/21 06/07/21 Range/Units 20:54 06:14 WBC 20.0 H 20.7 H (4.8-10.8) X10*3/uL Hgb 6.5 L* 9.1 L D (14.0-18.0) g/dl Hct 19.6 L* 26.6 L D (42.0-52.0) % Plt Count 334 312 (160-400) X10*3/uL BMP 06/06/21 06/07/21 20:54 06:14 Sodium 137 138 Potassium 4.6 4.3 Chloride 107 109 H Carbon Dioxide 23 20 L BUN 68 H 58 H Creatinine 2.49 H 2.14 H Calcium 7.7 L 7.8 L Liver Function 06/06/21 Range/Units 20:54 Total Bilirubin 0.4 (0.0-1.0) mg/dL AST 11 (5-37) U/L ALT 9 (0-40) U/L Alkaline Phosphatase 60 (39-117) U/L Albumin 2.7 L (3.5-5.0) g/dL Urine 06/06/21 Range/Units 20:06 Urine Color YELLOW Urine Appearance CLEAR Urine pH 5.5 (5.0-8.0) Ur Specific [place] 1.015 (1.005-1.025) Urine Protein NEG (NEG-TRACE) MG/DL Urine Glucose (UA) NEG (NEG) MG/DL All other labs normal. Assessment and Plan (1) Complete small bowel obstruction: Status: Acute (2) Severe anemia: Status: Acute (3) Acute GI bleeding: Status: Acute Plan 71-year-old male patient with history of ulcerative colitis and prior colectomy with ileostomy presenting with evidence of a small-bowel obstruction and blood per ostomy. Clinically the patient is passing his bowels and reports some nausea and vomiting. Patient has been on Eliquis following hip surgery. In addition he is on pain medication which may result in an ileus following the hip surgery. Recommend continuing nasogastric decompression, IV hydration, and observation. Limit pain medications as much as possible. Will follow along with you during his hospitalization. Procedures Date of Service Date of Service: 06/07/21
--- NOTE | 2021-06-07 09:02 | P.CNGI_ITS ---
History of Present Illness Data of Consult Service Date: 06/07/21 Requesting physician: Gina Hi Primary Care Provider: Unknown Physician HPI Reason for consult: acute blood loss anemia 71-year-old male with past medical history of diabetes, HIV, HTN, hyperlipidemia, ulcerative colitis with colectomy and ileostomy, chronic hepatitis, CKD who I ams seeing for assessment for acute blood loss anemia. Patient had right hip replacement about a week ago and was placed on eliquis for DVT prophylaxis. Then yesterday he noted diffuse, nonradiating, abdominal pain with non bloody emesis and bloody output from the ileostomy. Saw surgical team and recommended to have NGT and decompression. LABS: WBC count of 20.7, hemoglobin 6.5 with a baseline around 12, hematocrit of 19.6,? PT of 14.9, INR of 1.3, BUN of 68, creatinine of 2.49 with a baseline around 1, magnesium of 1.5, albumin of 2.7, UA is negative CT: small bowel obstruction with significant dilated proximal jejunum and decompressed small caliber ileum. Review of Systems Review of Systems: Yes all other systems are reviewed and are negative Constitutional: Constitutional: Denies chills, Denies fever(s), Denies headache(s) and Reports poor appetite ENT: Reports dizziness and Denies headache(s) Cardiovascular: Cardiovascular: Denies chest pain, Denies rapid heart rate, Denies palpitations and Denies slow heart rate Respiratory: Respiratory: Denies chest congestion, Denies cough, Denies pain on inspiration and Denies wheezing Gastrointestinal: Gastrointestinal: Reports abdominal pain, Reports melena, Reports bloating, Denies change in stool character, Denies constipation, Denies diarrhea, Denies nausea, Denies vomiting and Denies hematemesis Musculoskeletal: Musculoskeletal: Denies back pain, Denies arthralgias, Denies joint swelling and Denies numbness Integumentary/Breasts: Skin/Breast: Denies change in pigmentation, Denies erythema and Denies rash Neurologic: Reports dizziness, Denies headache(s) and Denies numbness Psychiatric: Psychiatric: Denies anxiety and Denies depression Endocrine: Endocrine: Denies palpitations Hematologic/Lymphatic: Hematologic/Lymphatic: Denies easy bleeding, Denies easy bruising and Denies lymphadenopathy Allergic/Immunologic: Allergic/Immunologic: Denies wheezing PMFSH Past Medical History Medical History Chronic hepatitis Chronic use of nonprescription opiate drugs CKD (chronic kidney disease) Diabetes mellitus HIV (human immunodeficiency virus infection) HTN (hypertension), benign Hyperlipemia Pancreatitis Ulcerative colitis Surgical History Surgical History H/O colectomy History of total left knee replacement (TKR) Hx of cholecystectomy Hx of splenectomy Status post right hip replacement Social History Social History Alcohol intake: never Patient Tobacco Use Status: Never used Tobacco Use of substances other than those prescribed or required for medical reasons: No Advance Directives: No Advance Directives Information Provided: Yes Meds Allergies Allergy/AdvReac Type Severity Reaction Status Date / Time ampicillin [AMPICILLIN] Allergy Mild HIVES Unverified 01/15/20 15:10 aspirin [ASPIRIN] Allergy Unknown RASH Unverified 01/15/20 15:10 Active Medications: Current Medications Abacavir Sulfate (Abacavir Sulfate 300 Mg Tablet) 600 mg PO DAILY [facility] Acetaminophen (Acetaminophen 325 Mg Tablet) 650 mg PO Q6H PRN PRN Reason: Pain, Mild (Pain Scale 1-3) Albuterol Sulfate (Albuterol Sulfate 90 Mcg 8 Gm Inhaler) 2 puff INHALE QID PRN PRN Reason: Respiratory Distress Amlodipine Besylate (Amlodipine Besylate 10 Mg Tablet) 10 mg PO DAILY RASHAD; Protocol Buprenorphine/Naloxone (Buprenorphine/Naloxone 8/2 Mg Film) 3 film SUBLINGUAL DAILY RASHAD Buspirone HCl (Buspirone Hcl 5 Mg Tablet) 5 mg PO TID RASHAD Carvedilol (Carvedilol 12.5 Mg Tablet) 12.5 mg PO BID RASHAD; Protocol Dextrose (Dextrose 50 % 25 Gm/50 Ml Syringe) 25 gm IVPUSH Q15M PRN; Protocol PRN Reason: per Hypoglycemia Standing Ord. Docusate Sodium (Docusate Sodium 100 Mg Capsule) 100 mg PO DAILY PRN PRN Reason: Constipation Dolutegravir Sodium (Dolutegravir Sodium 50 Mg Tablet) 50 mg PO DAILY RASHAD Gabapentin (Gabapentin 600 Mg Tablet) 600 mg PO BID RASHAD Glucose (Glucose Gel 15 Gm Gel..Gram.) 15 gm PO Q15M PRN; Protocol PRN Reason: per Hypoglycemia Standing Ord. Hydromorphone HCl (Hydromorphone Hcl 4 Mg Tablet) 4 mg PO Q3H PRN PRN Reason: Pain (Scale Score 4-6) Last Admin: 06/07/21 02:18 Dose: 4 mg Documented by: Lactated Ringer's (Lr) 1,000 mls @ 80 mls/hr IVCONT .[id number] [facility] Last Admin: 06/07/21 00:09 Dose: 80 mls/hr Documented by: Insulin Human Lispro (Insulin Lispro 100 Unit/Ml 3 Ml Vial) 0 unit SUBCUT QIDACHS [facility]; Protocol Last Admin: 06/07/21 08:24 Dose: Not Given Documented by: Lamivudine (Lamivudine 150 Mg Tablet) 300 mg PO DAILY RASHAD Loratadine (Loratadine 10 Mg Tablet) 10 mg PO DAILY PRN PRN Reason: Allergic Symptoms Morphine Sulfate (Morphine Sulfate 4 Mg/Ml Cartridge) 4 mg IVPUSH Q4H PRN; Protocol PRN Reason: Pain, Severe (Pain Scale 7-10) Last Admin: 06/07/21 08:35 Dose: 4 mg Documented by: Omeprazole (Omeprazole 20 Mg Capsule.Dr) 20 mg PO DAILY@0630 [facility] Last Admin: 06/07/21 07:23 Dose: Not Given Documented by: Ondansetron HCl (Ondansetron Hcl 4 Mg/2 Ml Vial) 4 mg IVPUSH Q8H PRN PRN Reason: Nausea and Vomiting Last Admin: 06/07/21 00:03 Dose: 4 mg Documented by: Pharmacy Consult (Consult Rx Perform Med Rec) 1 each MISCELLANE ONCE PRN PRN Reason: Consult order Pravastatin Sodium (Pravastatin Sodium 40 Mg Tablet) 40 mg PO BEDTIME RASHAD Sertraline HCl (Sertraline Hcl 25 Mg Tablet) 75 mg PO DAILY [facility] Sodium Chloride (0.9 % Sodium Chloride Flush 3 Ml Syringe) [facility] Last Admin: 06/07/21 08:35 Dose: Not Given Documented by: Trazodone HCl (Trazodone Hcl 100 Mg Tablet) 100 mg PO BEDTIME PRN PRN Reason: Sleep Last Admin: 06/07/21 00:04 Dose: 100 mg Documented by: Home Medications Medication Instructions Recorded Confirmed Last Taken Type abacavir 600 mg-dolutegravir 50 1 tab PO DAILY 06/06/21 06/06/21 Unknown History mg-lamivudine 300 mg tablet (Triumeq) acetaminophen 500 mg tablet 500 mg PO BID PRN 06/06/21 06/06/21 Unknown History albuterol sulfate 90 mcg/actuation 2 puff INHALATION QID PRN 06/06/21 06/06/21 Unknown History aerosol inhaler amlodipine 10 mg tablet 10 mg PO DAILY 06/06/21 06/06/21 Unknown History apixaban 2.5 mg tablet 2.5 mg PO BID 06/06/21 06/06/21 Unknown History buprenorphine 8 mg-naloxone 2 mg 3 film SUBLINGUAL DAILY 06/06/21 06/06/21 Unknown History sublingual film buspirone 5 mg tablet 5 mg PO TID 06/06/21 06/06/21 Unknown History carvedilol 12.5 mg tablet 12.5 mg PO BID 06/06/21 06/06/21 Unknown History cetirizine 10 mg tablet 10 mg PO DAILY PRN 06/06/21 06/06/21 Unknown History diclofenac sodium 1 % topical gel 2 g TOPICAL BID 06/06/21 06/06/21 Unknown History gabapentin 600 mg tablet 600 mg PO BID 06/06/21 06/06/21 Unknown History hydrochlorothiazide 12.5 mg tablet 12.5 mg PO DAILY 06/06/21 06/06/21 Unknown H istory hydromorphone 4 mg tablet 4 mg PO Q3H PRN 06/06/21 06/06/21 Unknown History omeprazole 20 mg capsule,delayed 20 mg PO DAILY@0630 06/06/21 06/06/21 Unknown History release pravastatin 40 mg tablet 40 mg PO BEDTIME 06/06/21 06/06/21 Unknown History sertraline 50 mg tablet 75 mg PO DAILY 06/06/21 06/06/21 Unknown History sitagliptin 50 mg tablet (Januvia) 50 mg PO DAILY 06/06/21 06/06/21 Unknown History trazodone 100 mg tablet 100 mg PO BEDTIME PRN 06/06/21 06/06/21 Unknown History Physical Exam Vital Signs: Vital Signs: Last Vital Signs Temp 97 F 06/07/21 02:04 Pulse 69 06/07/21 06:14 Resp 12 06/07/21 06:14 BP 164/75 H 06/07/21 06:14 Pulse Ox 96 06/07/21 06:14 BMI result Body Mass Index 31.9 Const: General: cooperative, comfortable, no acute distress and well developed Nutritional Appearance: well nourished Orientation/consciousness: patient oriented x3 Eyes: General: appearance normal, both eyes and all related structures Sclerae: sclerae normal Pupils: Equal, round and reactive pupils present EOM: EOMs intact bilaterally Neck: Neck: Yes normal visual inspection Resp: Effort & Inspection: normal respiratory effort, no cough, no respiratory distress and no stridor Auscultation: clear to auscultation bilaterally Cardio: Jugular venous distension: no JVD Rate: regular rate Rhythm: regular rhythm GI: Other: yesterday bag in place with maroon-colored stool abdomen is soft, hyperactive bowel sounds Inspection: Yes normal to inspection Palpation (GI): Soft to palpation, Tenderness to palpation present (GI), no guarding and not rigid Percussion: Yes normal to percussion Auscultation: normal bowel sounds Rectal Exam - Male: Yes deferred Skin: General skin exam: no rashes or lesions noted and dry skin Rashes: no rashes Neuro: General: patient oriented x3 and no focal motor deficits Cranial nerves: Yes Equal, round and reactive pupils present Cognition (Neuro): normal cognition Extrem: General: Yes normal to inspection, Yes full ROM, Yes no clubbing, cyanosis or edema and Yes no pedal edema Psych: Appearance: grossly normal Results Labs CBC & Chem 7: 06/07/21 06:14 06/07/21 06:14 Labs: Short CBC 06/06/21 06/07/21 Range/Units 20:54 06:14 WBC 20.0 H 20.7 H (4.8-10.8) X10*3/uL Hgb 6.5 L* 9.1 L D (14.0-18.0) g/dl Hct 19.6 L* 26.6 L D (42.0-52.0) % Plt Count 334 312 (160-400) X10*3/uL BMP 06/06/21 06/07/21 20:54 06:14 Sodium 137 138 Potassium 4.6 4.3 Chloride 107 109 H Carbon Dioxide 23 20 L BUN 68 H 58 H Creatinine 2.49 H 2.14 H Calcium 7.7 L 7.8 L Liver Function 06/06/21 Range/Units 20:54 Total Bilirubin 0.4 (0.0-1.0) mg/dL AST 11 (5-37) U/L ALT 9 (0-40) U/L Alkaline Phosphatase 60 (39-117) U/L Albumin 2.7 L (3.5-5.0) g/dL Urine 06/06/21 Range/Units 20:06 Urine Color YELLOW Urine Appearance CLEAR Urine pH 5.5 (5.0-8.0) Ur Specific [place] 1.015 (1.005-1.025) Urine Protein NEG (NEG-TRACE) MG/DL Urine Glucose (UA) NEG (NEG) MG/DL Assessment and Plan (1) Complete small bowel obstruction: Status: Acute (2) Acute GI bleeding: Status: Acute
[2021-06-07] MEDS: Dolutegravir Sodium 50 MG TABLET PO (09:36)
[2021-06-07] MEDS: Omeprazole 20 MG CAPSULE.DR PO (09:36)
[2021-06-07] MEDS: lamiVUDine 150 MG TABLET 300 MG PO (09:36)
[2021-06-07] MEDS: Gabapentin 600 MG TABLET PO ×2 (09:37→20:49)
[2021-06-07] MEDS: amLODIPine Besylate 10 MG TABLET PO (09:37)
[2021-06-07] MEDS: busPIRone HCl 5 MG TABLET PO ×3 (09:37→20:47)
[2021-06-07] MEDS: carvediloL 12.5 MG TABLET PO ×2 (09:37→20:47)
[2021-06-07] MEDS: Sertraline HCL 25 MG TABLET 75 MG PO (09:37)
[2021-06-07] MEDS: Buprenorphine/Naloxone 8/2 mg FILM 3 FILM SUBLINGUAL (10:20)
--- NOTE | 2021-06-07 10:26 | MHC.SHP ---
Pre-Procedural Eval Section A Date of Service: 06/07/21 The patient is an INPATIENT: Yes The History & Physical has been completed within 30 days and I have reviewed it.: Yes Section B Chief Complaint: SNO. GI Bleed Allergies: Allergies Allergy/AdvReac Type Severity Reaction Status Date / Time ampicillin [AMPICILLIN] Allergy Mild HIVES Unverified 01/15/20 15:10 aspirin [ASPIRIN] Allergy Unknown RASH Unverified 01/15/20 15:10 Plan I have reviewed the history and physical and performed a pertinent physical examination on my patient. No changes have occurred unless specified.
--- NOTE | 2021-06-07 10:52 | PM.EVENT ---
Event Note Date of Service: 06/07/21 Event Note: GI-Full note dictated-Hx via patient, RN, and EMR Imp: UGI Bleed in a 71 yo male on Eliquis after right hip surgery 2 weeks ago at [facility]. He describes using Aleve at home despite having been told not to. Distant hx of EtOH and describes possible treatment for Hep C as well. He describes onset of abdominal pain with N/V yesterday with bloody emesis and maroon stool in colostomy bag. He has been stable overnight after transfusions without any further signs of bleeding. His ileus/SBO seems to be resolving as well. Diff Dx: UGI bleed due to PUD, Orin-Mustafa tear, gastritis Rec: EGD with MAC today with me or Dr. Cruz. Full consent has been obtained for this, including risks of bleeding and perforation. Continue IV PPI. Thanks.
--- NOTE | 2021-06-07 11:02 | PC.NURSE ---
Pt A&Ox4, pain 11/06 to abd at this time. Medicated accordingly. NG tube to R nare, low int suction with minimal output which is bile-like in appearance. Pt colostomy to R abd, burped for gas, brown liquid output with no signs of bleeding noted at this time. Pt noted to have one IV to R AC, second large bore IV not present, s/p blood transfusion done over nightshift. Plan for Endo mid day today. Call lyle within reach, will continue to monitor.
[2021-06-07 12:55] LABS: Glucose, Whole Blood 128 mg/dL (60-115)
--- NOTE | 2021-06-07 12:57 | PC.NURSE ---
Pt to SSS at this time.
--- NOTE | 2021-06-07 12:59 | HO.PM.IMPN ---
Subjective Subjective Date of Service: 06/07/21 Review of Systems Follow up SBO and GI Bleed Abd pain continued Physical Exam Vital Signs: Vital Signs: Last Vital Signs Temp 98.7 F 06/07/21 12:30 Pulse 64 06/07/21 12:30 Resp 16 06/07/21 12:30 BP 137/71 06/07/21 12:30 Pulse Ox 95 06/07/21 12:30 BMI result Body Mass Index 31.9 Appearing in pain neck is supple no lymphadenopathy, no JVD noted lung sounds are clear to auscultation heart regular rate rhythm, clear S1, S2 tender abdomen, NGT present neuro patient is alert x3, no focal deficits Objective Data Active Medications Abacavir Sulfate (Abacavir Sulfate 300 Mg Tablet) 600 mg PO DAILY [facility] Last Admin: 06/07/21 09:36 Dose: 600 mg Documented by: CECILY-CARLEEN Acetaminophen (Acetaminophen 325 Mg Tablet) 650 mg PO Q6H PRN PRN Reason: Pain, Mild (Pain Scale 1-3) Albuterol Sulfate (Albuterol Sulfate 90 Mcg 8 Gm Inhaler) 2 puff INHALE QID PRN PRN Reason: Respiratory Distress Amlodipine Besylate (Amlodipine Besylate 10 Mg Tablet) 10 mg PO DAILY [facility]; Protocol Last Admin: 06/07/21 09:37 Dose: 10 mg Documented by: CECILY-CARLEEN Buprenorphine/Naloxone (Buprenorphine/Naloxone 8/2 Mg Film) 3 film SUBLINGUAL DAILY [facility] Last Admin: 06/07/21 10:20 Dose: 3 film Documented by: CECILY-CARLEEN Buspirone HCl (Buspirone Hcl 5 Mg Tablet) 5 mg PO TID [facility] Last Admin: 06/07/21 09:37 Dose: 5 mg Documented by: CECILY-CARLEEN Carvedilol (Carvedilol 12.5 Mg Tablet) 12.5 mg PO BID [facility]; Protocol Last Admin: 06/07/21 09:37 Dose: 12.5 mg Documented by: CECILY-CARLEEN Dextrose (Dextrose 50 % 25 Gm/50 Ml Syringe) 25 gm IVPUSH Q15M PRN; Protocol PRN Reason: per Hypoglycemia Standing Ord. Docusate Sodium (Docusate Sodium 100 Mg Capsule) 100 mg PO DAILY PRN PRN Reason: Constipation Dolutegravir Sodium (Dolutegravir Sodium 50 Mg Tablet) 50 mg PO DAILY [facility] Last Admin: 06/07/21 09:36 Dose: 50 mg Documented by: CRUZ Gabapentin (Gabapentin 600 Mg Tablet) 600 mg PO BID [facility] Last Admin: 06/07/21 09:37 Dose: 600 mg Documented by: CRUZ Glucose (Glucose Gel 15 Gm Gel..Gram.) 15 gm PO Q15M PRN; Protocol PRN Reason: per Hypoglycemia Standing Ord. Hydromorphone HCl (Hydromorphone Hcl 4 Mg Tablet) 4 mg PO Q3H PRN PRN Reason: Pain (Scale Score 4-6) Last Admin: 06/07/21 02:18 Dose: 4 mg Documented by: ANABELL Lactated Ringer's (Lr) 1,000 mls @ 80 mls/hr IVCONT .[id number] [facility] Last Admin: 06/07/21 12:58 Dose: 80 mls/hr Documented by: CRUZ Insulin Human Lispro (Insulin Lispro 100 Unit/Ml 3 Ml Vial) 0 unit SUBCUT QIDACHS [facility]; Protocol Last Admin: 06/07/21 12:58 Dose: Not Given Documented by: CRUZ Non-Admin Reason: Off Unit: Surgery Lamivudine (Lamivudine 150 Mg Tablet) 300 mg PO DAILY [facility] Last Admin: 06/07/21 09:36 Dose: 300 mg Documented by: CRUZ Loratadine (Loratadine 10 Mg Tablet) 10 mg PO DAILY PRN PRN Reason: Allergic Symptoms Morphine Sulfate (Morphine Sulfate 4 Mg/Ml Cartridge) 4 mg IVPUSH Q4H PRN; Protocol PRN Reason: Pain, Severe (Pain Scale 7-10) Last Admin: 06/07/21 08:35 Dose: 4 mg Documented by: CRUZ Ondansetron HCl (Ondansetron Hcl 4 Mg/2 Ml Vial) 4 mg IVPUSH Q8H PRN PRN Reason: Nausea and Vomiting Last Admin: 06/07/21 00:03 Dose: 4 mg Documented by: JUAN MIGUEL Pantoprazole Sodium (Pantoprazole Sodium 40 Mg/10 Ml Vial) 40 mg IVPUSH BID@0630,1630 [facility] Last Admin: 06/07/21 12:59 Dose: Not Given Documented by: CRUZ Non-Admin Reason: Off Unit: Surgery Pharmacy Consult (Consult Rx Perform Med Rec) 1 each MISCELLANE ONCE PRN PRN Reason: Consult order Pravastatin Sodium (Pravastatin Sodium 40 Mg Tablet) 40 mg PO BEDTIME RASHAD Sertraline HCl (Sertraline Hcl 25 Mg Tablet) 75 mg PO DAILY [facility] Last Admin: 06/07/21 09:37 Dose: 75 mg Documented by: CRUZ Sodium Chloride (0.9 % Sodium Chloride Flush 3 Ml Syringe) 3 ml IVFLUSH QSHIFT [facility] Last Admin: 06/07/21 08:35 Dose: Not Given Documented by: CRUZ Non-Admin Reason: IV Running Trazodone HCl (Trazodone Hcl 100 Mg Tablet) 100 mg PO BEDTIME PRN PRN Reason: Sleep Last Admin: 06/07/21 00:04 Dose: 100 mg Documented by: JUAN MIGUEL Labs CBC & Chem 7: 06/07/21 06:14 06/07/21 06:14 Labs: Laboratory Results - last 24 hr 06/06/21 06/06/21 06/06/21 19:05 19:21 19:58 MCV MCH MCHC RDW Plt Count MPV Immature Gran % (Auto) Neut % (Auto) Lymph % (Auto) [place] % (Auto) Eos % (Auto) Baso % (Auto) Lymph # (Auto) [place] # (Auto) Eos # (Auto) Baso # (Auto) Abs Immat Gran (auto) Absolute Neuts (auto) Absolute Nucleated RBC Nucleated RBC % (auto) Smear Path Review PT INR APTT Anion Gap Estim Creat Clear Calc Estimated GFR POC Glucose Random Glucose Lactic Acid Calcium Magnesium Total Bilirubin AST ALT Alkaline Phosphatase Total Protein Albumin Urine Color Urine Appearance Urine pH Ur Specific [place] Urine Protein Urine Glucose (UA) Urine Ketones Urine Blood Urine Nitrite Ur Leukocyte Esterase Stool Occult Blood POSITIVE COVID-19 (RAYNA) Negative COVID-19 Clin Com See Note Blood Type O Positive Antibody Screen NEGATIVE Crossmatch See Detail 06/06/21 06/06/21 06/06/21 20:06 20:54 20:54 MCV 101.6 H MCH 33.7 H MCHC 33.2 RDW 14.6 Plt Count 334 MPV 9.6 Immature Gran % (Auto) 1.0 H Neut % (Auto) 84.6 H Lymph % (Auto) 10.9 L [place] % (Auto) 3.1 Eos % (Auto) 0.0 Baso % (Auto) 0.4 Lymph # (Auto) 2.2 [place] # (Auto) 0.6 Eos # (Auto) 0.0 Baso # (Auto) 0.1 Abs Immat Gran (auto) 0.19 H Absolute Neuts (auto) 17.0 H Absolute Nucleated RBC 0.020 H Nucleated RBC % (auto) 0.1 Smear Path Review SEE NOTE PT INR APTT Anion Gap 12 Estim Creat Clear Calc 28.1 Estimated GFR 26 POC Glucose Random Glucose 165 H Lactic Acid Calcium 7.7 L Magnesium 1.5 L Total Bilirubin 0.4 AST 11 ALT 9 Alkaline Phosphatase 60 Total Protein 4.9 L Albumin 2.7 L Urine Color YELLOW Urine Appearance CLEAR Urine pH 5.5 Ur Specific [place] 1.015 Urine Protein NEG Urine Glucose (UA) NEG Urine Ketones NEG Urine Blood NEG Urine Nitrite NEG Ur Leukocyte Esterase NEG Stool Occult Blood COVID-19 (RAYNA) COVID-19 [facility] Com Blood Type Antibody Screen Crossmatch 06/06/21 06/06/21 06/07/21 20:54 20:54 06:14 MCV 97.4 MCH 33.3 H MCHC 34.2 RDW 14.1 Plt Count 312 MPV 9.9 Immature Gran % (Auto) 0.7 H Neut % (Auto) 71.6 Lymph % (Auto) 19.9 L [place] % (Auto) 7.1 Eos % (Auto) 0.3 Baso % (Auto) 0.4 Lymph # (Auto) 4.1 [place] # (Auto) 1.5 H Eos # (Auto) 0.1 Baso # (Auto) 0.1 Abs Immat Gran (auto) 0.15 H Absolute Neuts (auto) 14.8 H Absolute Nucleated RBC 0.040 H Nucleated RBC % (auto) 0.2 Smear Path Review PT 14.9 H INR 1.3 H APTT 30.8 Anion Gap Estim Creat Clear Calc Estimated GFR POC Glucose Random Glucose Lactic Acid 1.3 Calcium Magnesium Total Bilirubin AST ALT Alkaline Phosphatase Total Protein Albumin Urine Color Urine Appearance Urine pH Ur Specific [place] Urine Protein Urine Glucose (UA) Urine Ketones Urine Blood Urine Nitrite Ur Leukocyte Esterase Stool Occult Blood COVID-19 (RAYNA) COVID-19 [facility] Com Blood Type Antibody Screen Crossmatch 06/07/21 06/07/21 06/07/21 06:14 07:44 12:41 MCV MCH MCHC RDW Plt Count MPV Immature Gran % (Auto) Neut % (Auto) Lymph % (Auto) [place] % (Auto) Eos % (Auto) Baso % (Auto) Lymph # (Auto) [place] # (Auto) Eos # (Auto) Baso # (Auto) Abs Immat Gran (auto) Absolute Neuts (auto) Absolute Nucleated RBC Nucleated RBC % (auto) Smear Path Review PT INR APTT Anion Gap 13 Estim Creat Clear Calc 32.7 Estimated GFR 31 POC Glucose 143 H 128 H Random Glucose 140 H Lactic Acid Calcium 7.8 L Magnesium Total Bilirubin AST ALT Alkaline Phosphatase Total Protein Albumin Urine Color Urine Appearance Urine pH Ur Specific [place] Urine Protein Urine Glucose (UA) Urine Ketones Urine Blood Urine Nitrite Ur Leukocyte Esterase Stool Occult Blood COVID-19 (RAYNA) COVID-19 Clin Com Blood Type Antibody Screen Crossmatch Assessment and Plan (1) Complete small bowel obstruction: Status: Acute Plan ?71-year-old male with past medical history of HIV hypertension, diabetes who presents to the hospital with complaints of abdominal pain found to have small-bowel obstruction as well as acute GI bleed with anemia Acute small-bowel obstruction, most likely in the setting of history of colostomy as well as ulcerative colitis NG tube in place keep NPO General surgery rec continued NGT, no surgical intervention at this time. Acute GI bleed with anemia., patient with a recent hip replacement on Eliquis for prophylaxis present with a hemoglobin of 6.9? and stool occult positive, also using aleve bloody emesis and maroon stool in colostomy bag yesterday status post 2 units of PRBC transfuse in the ED HH stable will hold Eliquis GI following, EGD in progress IV PPI MARY JO, possibly prerenal in the setting of GI bleed IV fluids follow BMP Recent hip replacement SCDs for prophylaxis pending GI consultation and further recommendation in regards to prophylaxis Hypertension, stable will hold hydrochlorothiazide in the setting of MARY JO HIV continue antiretrovirals diabetes continue home insulin, will add low-dose sliding scale insulin, diabetic diet DVT prophylaxis:? SCDs Attending Dr. [place]on Quality Stroke Does the patient have a stroke diagnosis?: No VTE Prior VTE?: No VTE Risk Level:: Medical - moderate - high VTE Device Contraindication: N/A - Device Ordered VTE Drug Contraindication: Treatment Not Tolerated
--- NOTE | 2021-06-07 13:25 | HO.ANESPROP2 ---
HPI - Anesthesia Eval Consult details Narrative: 71 M for EGD PMFSH Active Problems Active Problems: All Active Problems (Updated 06/07/21 @ 01:17 by Carlo Mirza MD) Complete small bowel obstruction (Acute) Severe anemia (Acute) Acute GI bleeding (Acute) Acute kidney injury (Acute) Past Medical History Medical History Chronic hepatitis Chronic use of nonprescription opiate drugs CKD (chronic kidney disease) Diabetes mellitus HIV (human immunodeficiency virus infection) HTN (hypertension), benign Hyperlipemia Pancreatitis Ulcerative colitis Family History Family history of problems with anesthesia: No Surgical History Surgical History H/O colectomy History of total left knee replacement (TKR) Hx of cholecystectomy Hx of splenectomy Status post right hip replacement History of Problems with Anesthesia: No Social History Social History Alcohol intake: never Patient Tobacco Use Status: Former Tobacco user Tobacco use type: Cigarette Smoked in Last 30 Days: No Use of substances other than those prescribed or required for medical reasons: Yes Are you DNR?: No Advance Directives: Yes Advance Directives on File: Yes Advance Directives Date on File: 06/07/21 service: No Current occupational status: disabled Meds Allergies Allergy/AdvReac Type Severity Reaction Status Date / Time ampicillin [AMPICILLIN] Allergy Mild HIVES Verified 06/07/21 12:29 aspirin [ASPIRIN] Allergy Unknown RASH Verified 06/07/21 12:29 Active Medications: Current Medications Abacavir Sulfate (Abacavir Sulfate 300 Mg Tablet) 600 mg PO DAILY [facility] Last Admin: 06/07/21 09:36 Dose: 600 mg Documented by: Acetaminophen (Acetaminophen 325 Mg Tablet) 650 mg PO Q6H PRN PRN Reason: Pain, Mild (Pain Scale 1-3) Albuterol Sulfate (Albuterol Sulfate 90 Mcg 8 Gm Inhaler) 2 puff INHALE QID PRN PRN Reason: Respiratory Distress Amlodipine Besylate (Amlodipine Besylate 10 Mg Tablet) 10 mg PO DAILY [facility]; Protocol Last Admin: 06/07/21 09:37 Dose: 10 mg Documented by: Buprenorphine/Naloxone (Buprenorphine/Naloxone 8/2 Mg Film) 3 film SUBLINGUAL DAILY [facility] Last Admin: 06/07/21 10:20 Dose: 3 film Documented by: Buspirone HCl (Buspirone Hcl 5 Mg Tablet) 5 mg PO TID [facility] Last Admin: 06/07/21 09:37 Dose: 5 mg Documented by: Carvedilol (Carvedilol 12.5 Mg Tablet) 12.5 mg PO BID [facility]; Protocol Last Admin: 06/07/21 09:37 Dose: 12.5 mg Documented by: Dextrose (Dextrose 50 % 25 Gm/50 Ml Syringe) 25 gm IVPUSH Q15M PRN; Protocol PRN Reason: per Hypoglycemia Standing Ord. Docusate Sodium (Docusate Sodium 100 Mg Capsule) 100 mg PO DAILY PRN PRN Reason: Constipation Dolutegravir Sodium (Dolutegravir Sodium 50 Mg Tablet) 50 mg PO DAILY [facility] Last Admin: 06/07/21 09:36 Dose: 50 mg Documented by: Gabapentin (Gabapentin 600 Mg Tablet) 600 mg PO BID [facility] Last Admin: 06/07/21 09:37 Dose: 600 mg Documented by: Glucose (Glucose Gel 15 Gm Gel..Gram.) 15 gm PO Q15M PRN; Protocol PRN Reason: per Hypoglycemia Standing Ord. Hydromorphone HCl (Hydromorphone Hcl 4 Mg Tablet) 4 mg PO Q3H PRN PRN Reason: Pain (Scale Score 4-6) Last Admin: 06/07/21 02:18 Dose: 4 mg Documented by: Lactated Ringer's (Lr) 1,000 mls @ 80 mls/hr IVCONT .[id number] [facility] Last Admin: 06/07/21 12:58 Dose: 80 mls/hr Documented by: Insulin Human Lispro (Insulin Lispro 100 Unit/Ml 3 Ml Vial) 0 unit SUBCUT QIDACHS [facility]; Protocol Last Admin: 06/07/21 12:58 Dose: Not Given Documented by: Lamivudine (Lamivudine 150 Mg Tablet) 300 mg PO DAILY [facility] Last Admin: 06/07/21 09:36 Dose: 300 mg Documented by: Loratadine (Loratadine 10 Mg Tablet) 10 mg PO DAILY PRN PRN Reason: Allergic Symptoms Morphine Sulfate (Morphine Sulfate 4 Mg/Ml Cartridge) 4 mg IVPUSH Q4H PRN; Protocol PRN Reason: Pain, Severe (Pain Scale 7-10) Last Admin: 06/07/21 08:35 Dose: 4 mg Documented by: Ondansetron HCl (Ondansetron Hcl 4 Mg/2 Ml Vial) 4 mg IVPUSH Q8H PRN PRN Reason: Nausea and Vomiting Last Admin: 06/07/21 00:03 Dose: 4 mg Documented by: Pantoprazole Sodium (Pantoprazole Sodium 40 Mg/10 Ml Vial) 40 mg IVPUSH BID@0630,1630 [facility] Last Admin: 06/07/21 12:59 Dose: Not Given Documented by: Pharmacy Consult (Consult Rx Perform Med Rec) 1 each MISCELLANE ONCE PRN PRN Reason: Consult order Pravastatin Sodium (Pravastatin Sodium 40 Mg Tablet) 40 mg PO BEDTIME [facility] Sertraline HCl (Sertraline Hcl 25 Mg Tablet) 75 mg PO DAILY [facility] Last Admin: 06/07/21 09:37 Dose: 75 mg Documented by: Sodium Chloride (0.9 % Sodium Chloride Flush 3 Ml Syringe) 3 ml IVFLUSH QSHIFT [facility] Last Admin: 06/07/21 08:35 Dose: Not Given Documented by: Trazodone HCl (Trazodone Hcl 100 Mg Tablet) 100 mg PO BEDTIME PRN PRN Reason: Sleep Last Admin: 06/07/21 00:04 Dose: 100 mg Documented by: Home Medications Medication Instructions Recorded Confirmed Last Taken Type abacavir 600 mg-dolutegravir 50 1 tab PO DAILY 06/06/21 06/06/21 Unknown History mg-lamivudine 300 mg tablet (Triumeq) acetaminophen 500 mg tablet 500 mg PO BID PRN 06/06/21 06/06/21 Unknown History albuterol sulfate 90 mcg/actuation 2 puff INHALATION QID PRN 06/06/21 06/06/21 Unknown History aerosol inhaler amlodipine 10 mg tablet 10 mg PO DAILY 06/06/21 06/06/21 Unknown History apixaban 2.5 mg tablet 2.5 mg PO BID 06/06/21 06/06/21 Unknown History buprenorphine 8 mg-naloxone 2 mg 3 film SUBLINGUAL DAILY 06/06/21 06/06/21 Unknown History sublingual film buspirone 5 mg tablet 5 mg PO TID 06/06/21 06/06/21 Unknown History carvedilol 12.5 mg tablet 12.5 mg PO BID 06/06/21 06/06/21 Unknown History cetirizine 10 mg tablet 10 mg PO DAILY PRN 06/06/21 06/06/21 Unknown History diclofenac sodium 1 % topical gel 2 g TOPICAL BID 06/06/21 06/06/21 Unknown History gabapentin 600 mg tablet 600 mg PO BID 06/06/21 06/06/21 Unknown History hydrochlorothiazide 12.5 mg tablet 12.5 mg PO DAILY 06/06/21 06/06/21 Unknown History hydromorphone 4 mg tablet 4 mg PO Q3H PRN 06/06/21 06/06/21 Unknown History omeprazole 20 mg capsule,delayed 20 mg PO DAILY@0630 06/06/21 06/06/21 Unknown History release pravastatin 40 mg tablet 40 mg PO BEDTIME 06/06/21 06/06/21 Unknown History sertraline 50 mg tablet 75 mg PO DAILY 06/06/21 06/06/21 Unknown History sitagliptin 50 mg tablet (Januvia) 50 mg PO DAILY 06/06/21 06/06/21 Unknown History trazodone 100 mg tablet 100 mg PO BEDTIME PRN 06/06/21 06/06/21 Unknown History Exam Exam Date and Time: June 07, 2021 1325 Height,Weight and Vital Signs: Height 5 ft 6 in Weight 89.811 kg Last Vital Signs Temp 98.7 F 06/07/21 12:30 Pulse 64 06/07/21 12:30 Resp 16 06/07/21 12:30 BP 137/71 06/07/21 12:30 Pulse Ox 95 06/07/21 12:30 Pertinent Lab Results Pertinent Lab Results: Laboratory Tests 06/06/21 06/06/21 06/06/21 19:05 19:21 19:58 WBC RBC Hgb Hct MCV MCH MCHC RDW Plt Count MPV Immature Gran % (Auto) Neut % (Auto) Lymph % (Auto) Douglas % (Auto) Eos % (Auto) Baso % (Auto) Lymph # (Auto) Douglas # (Auto) Eos # (Auto) Baso # (Auto) Abs Immat Gran (auto) Absolute Neuts (auto) Absolute Nucleated RBC Nucleated RBC % (auto) Smear Path Review PT INR APTT Sodium Potassium Chloride Carbon Dioxide Anion Gap BUN Creatinine Estim Creat Clear Calc Estimated GFR POC Glucose Random Glucose Lactic Acid Calcium Magnesium Total Bilirubin AST ALT Alkaline Phosphatase Total Protein Albumin Urine Color Urine Appearance Urine pH Ur Specific [place] Urine Protein Urine Glucose (UA) Urine Ketones Urine Blood Urine Nitrite Ur Leukocyte Esterase Stool Occult Blood POSITIVE COVID-19 (RAYNA) Negative COVID-19 Clin Com See Note Blood Type O Positive Antibody Screen NEGATIVE Crossmatch See Detail 06/06/21 06/06/21 06/06/21 20:06 20:54 20:54 WBC 20.0 H RBC 1.93 L Hgb 6.5 L* Hct 19.6 L* MCV 101.6 H MCH 33.7 H MCHC 33.2 RDW 14.6 Plt Count 334 MPV 9.6 Immature Gran % (Auto) 1.0 H Neut % (Auto) 84.6 H Lymph % (Auto) 10.9 L Douglas % (Auto) 3.1 Eos % (Auto) 0.0 Baso % (Auto) 0.4 Lymph # (Auto) 2.2 Douglas # (Auto) 0.6 Eos # (Auto) 0.0 Baso # (Auto) 0.1 Abs Immat Gran (auto) 0.19 H Absolute Neuts (auto) 17.0 H Absolute Nucleated RBC 0.020 H Nucleated RBC % (auto) 0.1 Smear Path Review SEE NOTE PT INR APTT Sodium 137 Potassium 4.6 Chloride 107 Carbon Dioxide 23 Anion Gap 12 BUN 68 H Creatinine 2.49 H Estim Creat Clear Calc 28.1 Estimated GFR 26 POC Glucose Random Glucose 165 H Lactic Acid Calcium 7.7 L Magnesium 1.5 L Total Bilirubin 0.4 AST 11 ALT 9 Alkaline Phosphatase 60 Total Protein 4.9 L Albumin 2.7 L Urine Color YELLOW Urine Appearance CLEAR Urine pH 5.5 Ur Specific [place] 1.015 Urine Protein NEG Urine Glucose (UA) NEG Urine Ketones NEG Urine Blood NEG Urine Nitrite NEG Ur Leukocyte Esterase NEG Stool Occult Blood COVID-19 (RAYNA) COVID-19 Clin Com Blood Type Antibody Screen Crossmatch 06/06/21 06/06/21 06/07/21 20:54 20:54 06:14 WBC 20.7 H RBC 2.73 L D Hgb 9.1 L D Hct 26.6 L D MCV 97.4 MCH 33.3 H MCHC 34.2 RDW 14.1 Plt Count 312 MPV 9.9 Immature Gran % (Auto) 0.7 H Neut % (Auto) 71.6 Lymph % (Auto) 19.9 L Douglas % (Auto) 7.1 Eos % (Auto) 0.3 Baso % (Auto) 0.4 Lymph # (Auto) 4.1 Douglas # (Auto) 1.5 H Eos # (Auto) 0.1 Baso # (Auto) 0.1 Abs Immat Gran (auto) 0.15 H Absolute Neuts (auto) 14.8 H Absolute Nucleated RBC 0.040 H Nucleated RBC % (auto) 0.2 Smear Path Review PT 14.9 H INR 1.3 H APTT 30.8 Sodium Potassium Chloride Carbon Dioxide Anion Gap BUN Creatinine Estim Creat Clear Calc Estimated GFR POC Glucose Random Glucose Lactic Acid 1.3 Calcium Magnesium Total Bilirubin AST ALT Alkaline Phosphatase Total Protein Albumin Urine Color Urine Appearance Urine pH Ur Specific [place] Urine Protein Urine Glucose (UA) Urine Ketones Urine Blood Urine Nitrite Ur Leukocyte Esterase Stool Occult Blood COVID-19 (RAYNA) COVID-C4 Imaging Blood Type Antibody Screen Crossmatch 06/07/21 06/07/21 06/07/21 06:14 07:44 12:41 WBC RBC Hgb Hct MCV MCH MCHC RDW Plt Count MPV Immature Gran % (Auto) Neut % (Auto) Lymph % (Auto) Douglas % (Auto) Eos % (Auto) Baso % (Auto) Lymph # (Auto) Douglas # (Auto) Eos # (Auto) Baso # (Auto) Abs Immat Gran (auto) Absolute Neuts (auto) Absolute Nucleated RBC Nucleated RBC % (auto) Smear Path Review PT INR APTT Sodium 138 Potassium 4.3 Chloride 109 H Carbon Dioxide 20 L Anion Gap 13 BUN 58 H Creatinine 2.14 H Estim Creat Clear Calc 32.7 Estimated GFR 31 POC Glucose 143 H 128 H Random Glucose 140 H Lactic Acid Calcium 7.8 L Magnesium Total Bilirubin AST ALT Alkaline Phosphatase Total Protein Albumin Urine Color Urine Appearance Urine pH Ur Specific [place] Urine Protein Urine Glucose (UA) Urine Ketones Urine Blood Urine Nitrite Ur Leukocyte Esterase Stool Occult Blood COVID-19 (RAYNA) COVID-19 [employer] Blood Type Antibody Screen Crossmatch Airway Mallampati Class: IV Neck ROM: Full Partial: Upper and Lower Loose/Missing/Broken Teeth: Yes Heart: rrr Lungs: bl breath sounds Assessment and Plan Assessment Anesthesia Assessment: Anesthesia Plan Discussed Final Anesthetic Review Family History of Problems with Anesthesia: No History of Problems with Anesthesia: No NPO: Yes ASA Class: IV and Emergency Patient Risk: High Procedure Risk: Intermediate Anesthetic Plan Anesthetic Plan: MAC: Disposition: Standard PACU
--- NOTE | 2021-06-07 14:28 | PM.OP ---
Brief Operative Note Date of Service: 06/07/21 Pre-op diagnosis: gi bleed Post-op diagnosis: same (duodenal ulcer) Procedure: egd Surgeon: Randall Crzu Anesthesia: MAC Was an Educational Audiologist used for this Procedure?: No Estimated blood loss (mL): 2 Pathology: other (antral biopsies) Condition: stable Disposition: PACU
--- NOTE | 2021-06-07 14:29 | PM.EVENT ---
Event Note Date of Service: 06/07/21 Event Note: EGD note dictated 15x20 mm duodenal bulb ulcer with visible vessel and no active bleeding ulcer treated with epinephrine and cautery antral biopsies obtained rec no AC/NSAIDs iv ppi follow hct leave ng out, trial clears
--- NOTE | 2021-06-07 15:08 | MHC.CM.PN ---
Attempted to meet with patient in regards to discharge planning. Patient currently having scope. Will attempt to meet again. Continue to monitor for d/c needs.
[2021-06-07] MEDS: Pantoprazole Sodium 40 MG/10 ML VIAL IVPUSH (15:50)
--- NOTE | 2021-06-07 15:54 | MHC.CM.PN ---
PATIENT LIVES ALONE HE HAS A CANE AND A WALKER HE ALSO HAS 2 HOURS OF DAILY [employer] SERVICES. NO VNA PATIENT'S MANAGED INSURANCE ([facility]) PROVIDES TRANSPORT TO AND FROM WHERE NEEDED, INCLUDING [place]. PCP IS DR SOSA TRISTAN OF [facility] OFFICE UPDATED. PATIENT HAS BEEN COVID-19 VACCINATED WITH J&J AND A MODERNA BOOSTER HE WILL GET HIS CARD OUT OF HIS WALLET ONCE HE COMES TO THE FLOORS AND IS FEELING MORE AWAKE ONCE HE DOES, HE WILL LET VIDEO EDITOR KNOW THE VACCINE DATES. CASE MANAGEMENT FOLLOWING. IMM 06/07 IN CHART HCP ON FILE AND VERIFIED
[2021-06-07 18:04] LABS: Glucose, Whole Blood 132 mg/dL (60-115)
[2021-06-07] MEDS: Pravastatin Sodium 40 MG TABLET PO (20:49)
[2021-06-07 20:58] LABS: Glucose, Whole Blood 133 mg/dL (60-115)
--- NOTE | 2021-06-07 23:14 | OP_ITS ---
SURGEON: Randall Cruz MD INDICATIONS: Upper GI bleeding. PREOPERATIVE DIAGNOSIS: POSTOPERATIVE DIAGNOSIS: PROCEDURE PERFORMED: Upper endoscopy with biopsy and control of hemorrhage. ESTIMATED BLOOD LOSS: COMPLICATIONS: ANESTHESIA: ASSISTANTS: SPECIMENS: MEDICATIONS: Monitored anesthesia care. DESCRIPTION OF PROCEDURE: History and physical were performed. The risks and benefits of the procedure were explained to the patient. Informed consent was obtained. The patient is placed in the left lateral decubitus position. The Olympus video gastroscope was introduced into the esophagus, stomach, and duodenum. Examination was performed and the scope was removed. He tolerated the procedure well and was returned to recovery in stable condition. FINDINGS: Esophagus: The esophagus was normal. There was no esophagitis. There was some whitish material adherent to the distal esophagus, possibly related to medication ingestion, but there were no changes of Asrah. Stomach: The stomach showed no evidence of masses or ulcers. There were multiple NG suction ireland from his NG tube, which was removed prior to the start of the procedure. Antral biopsies were obtained to rule out H pylori. Duodenum: In the bulb on the superior posterior wall was a large 15 x 20 mm ulcer with a visible vessel. There was no active bleeding. The 2nd portion was normal. A total of 3 cc of epinephrine was injected at the vicinity of the ulcer with good mucosal blanching and the Gold probe was used to cauterize the visible vessel, which was difficult based on the location and required cautery at a somewhat oblique angle. There was no bleeding at the termination of the procedure. IMPRESSION: 1. Duodenal ulcer. 2. Gastric biopsies obtained. RECOMMENDATION: 1. Follow up the biopsy results. 2. No NSAIDs or anticoagulants. 3. Monitor H and H. Randall Cruz MD BC/MODL / [id number]
--- NOTE | 2021-06-08 04:05 | CONS_ITS ---
DATE OF SERVICE: 06/07/2021 REASON FOR CONSULTATION: Upper GI bleeding. HISTORY OF PRESENT ILLNESS: This is a 71-year-old male who presents with the reported onset of some diffuse abdominal pain, nausea, vomiting, hematemesis, and bloody drainage in his colostomy bag. The patient had a hip repair about 2 weeks ago at [facility]. He was subsequently started on Eliquis postoperatively. Although he was cautioned against using NSAIDs, he reports that he has been using Aleve at home fairly regularly. He denies any previous history of GI bleeding. He does have a history of alcohol use in the past, but has been sober for quite some time. He may have also been treated for hepatitis C. He does have underlying HIV infection. On arrival in the hospital here, his hemoglobin was 6.5 and he received 2 units of blood with a subsequent hemoglobin up to 9.1 this morning. He did have a nasogastric tube placed due to concerns regarding a small bowel obstruction and this has only been draining a yellowish drainage. His colostomy bag has also just had a dark brown stool without any sign of bleeding. The patient denies tobacco use. He denies any previous history of ulcer disease. He denies any chronic heartburn or dysphagia. MEDICATIONS: List does include omeprazole at home. His present medications include Ziagen, albuterol inhaler p.r.n., amlodipine, Suboxone, BuSpar, carvedilol, Tivicay, gabapentin, Dilaudid p.r.n., insulin, Epivir, Claritin, morphine p.r.n., Zofran p.r.n., omeprazole, pravastatin, sertraline, trazodone. PAST MEDICAL HISTORY: Proctocolectomy for apparently refractory ulcerative colitis with a permanent colostomy. Knee replacement. Recent hip surgery as above. HIV infection. Previous alcohol abuse. Renal insufficiency. Hypertension. Hyperlipidemia. History of opiate addiction. Cholecystectomy. Reported splenectomy. SOCIAL HISTORY: He does not smoke. He presently does not use any alcohol. FAMILY HISTORY: Noncontributory. REVIEW OF SYSTEMS: CONSTITUTIONAL: He has been feeling fatigued at home with somewhat diminished appetite. CARDIAC: No chest pain. PULMONARY: No coughing. No hemoptysis. GI: As above. PHYSICAL EXAMINATION: GENERAL: The patient is a pleasant alert male. He does appear chronically ill. He has a nasogastric tube in. SKIN: Warm and dry. EYES: Anicteric sclerae. CARDIAC: Normal S1, S2. ABDOMEN: Soft. Normal bowel sounds. Nontender without palpable mass. LABORATORY DATA: As above. White blood cell count 20.7, hemoglobin 9.1 this morning. Platelets 312,000. PT 14.9 with INR 1.3. Normal electrolytes. BUN 58, creatinine 2.1, total bilirubin is 0.4, AST 11, ALT 9, alkaline phosphatase 60, albumin 2.7. IMAGING: CT scan showed a normal-appearing liver and no sign of any biliary obstruction. He is status post cholecystectomy. Kidneys appeared normal. There appeared to be a small bowel obstruction with decompressed distal small bowel with a transition point in the left lower quadrant. IMPRESSION: Given the patient's clinical history, I suspect his upper GI bleeding is in relation to probable peptic ulcer disease given his chronic use of Aleve in addition to his Eliquis. Other possibilities would be a Orin-Mustafa tear given his associated vomiting. Erosive gastritis and/or esophagitis could be in the differential diagnosis as well. At this point, he appears hemodynamically stable with an appropriate increase in hemoglobin after his transfusions. At this point, I would recommend an upper endoscopy with monitored anesthesia care. Full consent has been obtained for that, including risks of bleeding and perforation. In the meantime, I would switch him to an IV PPI and continue close monitoring of his vital signs and hemoglobin. Given the appearance of stool in his colostomy bag, it does appear that his partial small bowel obstruction seems to be resolving as well. I suspect this most likely is related to adhesions and/or a component of ileus in relation to his recent surgery. Thank you for the consultation. MD GREG Saleh/CHARBEL / [id number]
[2021-06-08 04:22] VITALS: BP 138/72; PULSE 76; RESP 17; TEMP 36.4; O2SAT 97
--- NOTE | 2021-06-08 05:42 | PC.NURSE ---
This RN assumed care at 1900. Patient received medication and is engageable. Patient received pain medication appropriately according to MAR. Colostomy bag emptied, liquid brown stool with no visible evidence of bleeding. Patient slept throughout the night, will continue to monitor.
[2021-06-08] MEDS: Pantoprazole Sodium 40 MG/10 ML VIAL IVPUSH ×2 (06:45→15:26)
--- NOTE | 2021-06-08 06:52 | HO.POSTANES ---
Post Anesthesia Evaluation Post Anesthesia Evaluation Vital Signs: Vital Signs Temp Pulse Resp BP Pulse Ox 06/08/21 04:22 97.6 F 76 17 138/72 97 06/07/21 20:54 68 18 131/59 L 96 Anesthesia: Monitored Mental Status: Awake Pain Control: Satisfactory Nausea/Vomiting: None Hydration: Adequate Anesthesia-Related Issues: No Anes. Related Issues
[2021-06-08 07:21] LABS: Hematocrit 24.8 % (42.0-52.0); Hemoglobin 8.1 g/dl (14.0-18.0); Mean Corpuscular HGB Conc 32.7 g/dl (31.0-36.0); Mean Corpuscular Hemoglobin 32.9 pg (27.0-33.0); Mean Corpuscular Volume 100.8 fL (80.0-98.0); Mean Platelet Volume 10.3 fL (9.4-12.4); NRBC Pct Auto 0.2 /100WBC (0.0-0.2); Platelet Count 317 X10*3/uL (160-400); Red Blood Count 2.46 X10*6/uL (4.60-5.80); Red Cell Distribution Width 15.1 % (11.0-16.0)
[2021-06-08 07:35] LABS: Alanine Aminotransferase 11 U/L (0-40); Albumin Level 2.6 g/dL (3.5-5.0); Alkaline Phosphatase 55 U/L (39-117); Aspartate Amino Transferase 15 U/L (5-37); Bilirubin Direct 0.2 mg/dL (0.0-0.5); Bilirubin Total 0.4 mg/dL (0.0-1.0); Total Protein 4.8 g/dL (6.5-8.0)
[2021-06-08 07:37] LABS: Anion Gap 9 (12-20); Blood Urea Nitrogen 32 mg/dL (9-16); Carbon Dioxide 26 mmol/L (22-29); Chloride 110 mmol/L (96-108); Creatinine Clr Calc Pharmacy 44.3; Estimated Glomerular Filt Rate 43; Glucose Random 133 mg/dL (60-115); Potassium 4.3 mmol/L (3.3-5.1); Sodium 141 mmol/L (135-145)
[2021-06-08 08:13] LABS: Glucose, Whole Blood 116 mg/dL (60-115)
[2021-06-08] MEDS: carvediloL 12.5 MG TABLET PO ×2 (08:51→21:30)
[2021-06-08] MEDS: amLODIPine Besylate 10 MG TABLET PO (08:51)
[2021-06-08] MEDS: lamiVUDine 150 MG TABLET 300 MG PO (08:51)
[2021-06-08] MEDS: Dolutegravir Sodium 50 MG TABLET PO (08:51)
[2021-06-08] MEDS: busPIRone HCl 5 MG TABLET PO ×3 (08:51→21:30)
[2021-06-08] MEDS: Sertraline HCL 25 MG TABLET 75 MG PO (08:51)
[2021-06-08] MEDS: Gabapentin 600 MG TABLET PO ×2 (08:51→21:30)
[2021-06-08] MEDS: 0.9 % Sodium Chloride Flush 3 ML SYRINGE IVFLUSH ×2 (08:59→15:16)
[2021-06-08] MEDS: Buprenorphine/Naloxone 8/2 mg FILM 3 FILM SUBLINGUAL (08:59)
[2021-06-08 09:00] VITALS: BP 145/68; PULSE 72; RESP 14; O2SAT 96
--- NOTE | 2021-06-08 09:43 | HO.PM.IMPN ---
Subjective Subjective Date of Service: 06/08/21 Interval History: seen and examined this AM tolerating clears but reported some abd distension afterwards, althought no nausea or vomiting and his ostomy bag is showing normal appearing (non bloody/tarry stools) Review of Systems negative except interval history Physical Exam Vital Signs: Vital Signs: Last Vital Signs Temp 97.6 F 06/08/21 04:22 Pulse 72 06/08/21 09:00 Resp 14 06/08/21 09:00 BP 145/68 H 06/08/21 09:00 Pulse Ox 96 06/08/21 09:00 BMI result Body Mass Index 31.9 Const: Other: General - no acute distress, appears comfortable Cardiovascular - regular rate and rhythm, S1-S2 Lungs - normal respiratory effort, clear to auscultation bilaterally, no wheezing Abdomen - soft, mildyl distended, ostomy without blood / dark stools; formed and regular apperance Extremities - no edema bilaterally Neuro - awake and alert, no focal deficits Objective Data Active Medications Abacavir Sulfate (Abacavir Sulfate 300 Mg Tablet) 600 mg PO DAILY [facility] Last Admin: 06/07/21 09:36 Dose: 600 mg Documented by: CRUZ Acetaminophen (Acetaminophen 325 Mg Tablet) 650 mg PO Q6H PRN PRN Reason: Pain, Mild (Pain Scale 1-3) Albuterol Sulfate (Albuterol Sulfate 90 Mcg 8 Gm Inhaler) 2 puff INHALE QID PRN PRN Reason: Respiratory Distress Amlodipine Besylate (Amlodipine Besylate 10 Mg Tablet) 10 mg PO DAILY [facility]; Protocol Last Admin: 06/08/21 08:51 Dose: 10 mg Documented by: CRUZ Buprenorphine/Naloxone (Buprenorphine/Naloxone 8/2 Mg Film) 3 film SUBLINGUAL DAILY [facility] Last Admin: 06/08/21 08:59 Dose: 3 film Documented by: CRUZ Buspirone HCl (Buspirone Hcl 5 Mg Tablet) 5 mg PO TID [facility] Last Admin: 06/08/21 08:51 Dose: 5 mg Documented by: CRUZ Carvedilol (Carvedilol 12.5 Mg Tablet) 12.5 mg PO BID [facility]; Protocol Last Admin: 06/08/21 08:51 Dose: 12.5 mg Documented by: HO.N-RAMSK Dextrose (Dextrose 50 % 25 Gm/50 Ml Syringe) 25 gm IVPUSH Q15M PRN; Protocol PRN Reason: per Hypoglycemia Standing Ord. Docusate Sodium (Docusate Sodium 100 Mg Capsule) 100 mg PO DAILY PRN PRN Reason: Constipation Dolutegravir Sodium (Dolutegravir Sodium 50 Mg Tablet) 50 mg PO DAILY [facility] Last Admin: 06/08/21 08:51 Dose: 50 mg Documented by: CECILY-RAMZORA Gabapentin (Gabapentin 600 Mg Tablet) 600 mg PO BID [facility] Last Admin: 06/08/21 08:51 Dose: 600 mg Documented by: CECILY-CARLEEN Glucose (Glucose Gel 15 Gm Gel..Gram.) 15 gm PO Q15M PRN; Protocol PRN Reason: per Hypoglycemia Standing Ord. Hydromorphone HCl (Hydromorphone Hcl 4 Mg Tablet) 4 mg PO Q3H PRN PRN Reason: Pain (Scale Score 4-6) Last Admin: 06/08/21 05:08 Dose: 4 mg Documented by: ANABELL Insulin Human Lispro (Insulin Lispro 100 Unit/Ml 3 Ml Vial) 0 unit SUBCUT QIDACHS [facility]; Protocol Last Admin: 06/08/21 08:58 Dose: Not Given Documented by: CRUZ Non-Admin Reason: No Insulin Coverage Lamivudine (Lamivudine 150 Mg Tablet) 300 mg PO DAILY [facility] Last Admin: 06/08/21 08:51 Dose: 300 mg Documented by: CECILY-CARLEEN Loratadine (Loratadine 10 Mg Tablet) 10 mg PO DAILY PRN PRN Reason: Allergic Symptoms Morphine Sulfate (Morphine Sulfate 4 Mg/Ml Cartridge) 4 mg IVPUSH Q4H PRN; Protocol PRN Reason: Pain, Severe (Pain Scale 7-10) Last Admin: 06/07/21 08:35 Dose: 4 mg Documented by: CRUZ Ondansetron HCl (Ondansetron Hcl 4 Mg/2 Ml Vial) 4 mg IVPUSH Q8H PRN PRN Reason: Nausea and Vomiting Last Admin: 06/07/21 00:03 Dose: 4 mg Documented by: JUAN MIGUEL Pantoprazole Sodium (Pantoprazole Sodium 40 Mg/10 Ml Vial) 40 mg IVPUSH BID@0630,1630 [facility] Last Admin: 06/08/21 06:45 Dose: 40 mg Documented by: ANABELL Pharmacy Consult (Consult Rx Perform Med Rec) 1 each MISCELLANE ONCE PRN PRN Reason: Consult order Pravastatin Sodium (Pravastatin Sodium 40 Mg Tablet) 40 mg PO BEDTIME [facility] Last Admin: 06/07/21 20:49 Dose: 40 mg Documented by: ANABELL Sertraline HCl (Sertraline Hcl 25 Mg Tablet) 75 mg PO DAILY [facility] Last Admin: 06/08/21 08:51 Dose: 75 mg Documented by: CRUZ Sodium Chloride (0.9 % Sodium Chloride Flush 3 Ml Syringe) 3 ml IVFLUSH QSHIFT [facility] Last Admin: 06/08/21 08:59 Dose: 3 ml Documented by: CRUZ Trazodone HCl (Trazodone Hcl 100 Mg Tablet) 100 mg PO BEDTIME PRN PRN Reason: Sleep Last Admin: 06/07/21 00:04 Dose: 100 mg Documented by: JUAN MIGUEL Labs CBC & Chem 7: 06/08/21 06:51 06/08/21 06:51 Labs: Laboratory Results - last 24 hr 06/06/21 06/07/21 06/07/21 20:54 12:41 17:52 MCV MCH MCHC RDW Plt Count MPV Absolute Nucleated RBC Nucleated RBC % (auto) Smear Path Review SEE NOTE Anion Gap Estim Creat Clear Calc Estimated GFR POC Glucose 128 H 132 H Random Glucose Calcium Total Bilirubin Direct Bilirubin AST ALT Alkaline Phosphatase Total Protein Albumin 06/07/21 06/08/21 06/08/21 20:52 06:51 06:51 MCV 100.8 H MCH 32.9 MCHC 32.7 RDW 15.1 Plt Count 317 MPV 10.3 Absolute Nucleated RBC 0.040 H Nucleated RBC % (auto) 0.2 Smear Path Review Anion Gap 9 L Estim Creat Clear Calc 44.3 Estimated GFR 43 POC Glucose 133 H Random Glucose 133 H Calcium 8.0 L Total Bilirubin Direct Bilirubin AST ALT Alkaline Phosphatase Total Protein Albumin 06/08/21 06/08/21 06:51 08:02 MCV MCH MCHC RDW Plt Count MPV Absolute Nucleated RBC Nucleated RBC % (auto) Smear Path Review Anion Gap Estim Creat Clear Calc Estimated GFR POC Glucose 116 H Random Glucose Calcium Total Bilirubin 0.4 Direct Bilirubin 0.2 AST 15 ALT 11 Alkaline Phosphatase 55 Total Protein 4.8 L Albumin 2.6 L Microbiology Microbiology Results: Microbiology 06/06/21 20:54 Blood Culture - Preliminary Blood - Venous No growth after 24 hours. 06/06/21 19:58 Blood Culture - Preliminary Blood - Venous No growth after 24 hours. Assessment and Plan (1) Acute GI bleeding: Status: Acute (2) Acute kidney injury: Status: Acute Plan This is a 71 yo M who was presented to [facility] [place] on 06/06/21 with complaints of abdominal pain. He was found to have SBO on CT as well as acute blood loss anemia secondary to GI bleed. He was admitted for further work up and treatment. 1. Acute Blood loss anemia secondary to GI bleed secondary to duodenal ucler (with visible vessel) slight drop in HCT, but clinically no evidence of further bleeding continue IV ppi for now continue with clear liquids Trend h/h and transfuse below 8 Reported that he had been taking Aleve at home due to his recent hip replacement GI input appreciated -- recommended no OAC or NSAIDS 2. Small bowel obstruction s/p NPO and NG tube placement clinically resolved -- passing stools in ostomy and NG tube has been removed Gen Surg input appreciated 3. Acute Kidney injury baseline SCr appears to be normal suspected secondary to hypovoluemia from his bleed renal function improving continue to monitor 4. DM hold orals, use sliding scale 5. HTN observe off antihypertensvies 6. Mood continue his baseline meds 7. History of HIV continue HAART 8. Recent Hip replacement no OAC for now due to acute gi bleed outpatient f/u with his ortho team at [facility] Full Code DVT pptx, Mechanical due to GI bleed Given the severity of his ulcer, will continue with IV PPI and clear liquids. He likely will require monitoring of his h/h every 6-8 hours for the next 24-48 hours. Quality Stroke Does the patient have a stroke diagnosis?: No VTE Prior VTE?: No VTE Risk Level:: Medical - moderate - high VTE Device Contraindication: N/A - Device Ordered VTE Drug Contraindication: Treatment Not Tolerated
--- NOTE | 2021-06-08 11:17 | PC.NURSE ---
Pt is A&Ox3, pain 6/10 upon morning assessment. Tolerating clear liquid diet at this time. Colostomy draining brown stool at this time with gas. Pt OOB to BR for AM care with stand by assist. IV fluids stopped as per [facility] orders, awaiting bed assignment. Call lyle within reach, will continue to monitor.
[2021-06-08 12:17] LABS: Hematocrit 24.7 % (42.0-52.0); Hemoglobin 8.2 g/dl (14.0-18.0)
[2021-06-08 13:05] VITALS: BP 112/49; PULSE 57; RESP 15; TEMP 36.9; O2SAT 93
--- NOTE | 2021-06-08 13:13 | MHC.CM.PN ---
Received notification from Dr Ordonez that patient will need a total of 14 days of IV antibiotics daily. Patient is active with [facility]. T/W spoke with patient's /HCP, Fracisco via telephone. He feels patient can safely come home with resumption of services and IV antibiotics. [facility] consulted. They will be able to deliver meds for Sunday. [facility] will be able to restart services on Sunday. On 06/09, patient will need her 5pm dose at 3pm, and then she can discharge home via BLS. Dr Ordonez aware. Continue to monitor for d/c needs.
[2021-06-08 13:30] LABS: Glucose, Whole Blood 110 mg/dL (60-115)
[2021-06-08 17:22] VITALS: BP 123/54; PULSE 56; RESP 14; TEMP 36.6; O2SAT 93
[2021-06-08 18:23] LABS: Glucose, Whole Blood 89 mg/dL (60-115)
[2021-06-08 21:27] LABS: Glucose, Whole Blood 126 mg/dL (60-115)
[2021-06-08] MEDS: Pravastatin Sodium 40 MG TABLET PO (21:30)
[2021-06-08] MEDS: traZODone HCL 100 MG TABLET PO (21:34)
[2021-06-08 23:39] VITALS: BP 121/47; PULSE 56; RESP 15; O2SAT 94
[2021-06-09] MEDS: ondansetron HCL 4 MG/2 ML VIAL IVPUSH (05:04)
[2021-06-09] MEDS: Pantoprazole Sodium 40 MG/10 ML VIAL IVPUSH ×2 (06:18→18:08)
[2021-06-09 07:45] LABS: Glucose, Whole Blood 101 mg/dL (60-115)
[2021-06-09] MEDS: amLODIPine Besylate 10 MG TABLET PO (08:12)
[2021-06-09] MEDS: busPIRone HCl 5 MG TABLET PO ×3 (08:12→20:51)
[2021-06-09] MEDS: lamiVUDine 150 MG TABLET 300 MG PO (08:12)
[2021-06-09] MEDS: Buprenorphine/Naloxone 8/2 mg FILM 3 FILM SUBLINGUAL (08:13)
[2021-06-09] MEDS: Dolutegravir Sodium 50 MG TABLET PO (08:13)
[2021-06-09] MEDS: Sertraline HCL 25 MG TABLET 75 MG PO (08:13)
[2021-06-09] MEDS: Gabapentin 600 MG TABLET PO ×2 (08:13→20:51)
[2021-06-09] MEDS: 0.9 % Sodium Chloride Flush 3 ML SYRINGE IVFLUSH ×2 (08:13→18:10)
[2021-06-09] MEDS: carvediloL 12.5 MG TABLET PO ×2 (08:13→20:50)
[2021-06-09 08:56] LABS: Hematocrit 24.4 % (42.0-52.0); Hemoglobin 7.9 g/dl (14.0-18.0); Mean Corpuscular HGB Conc 32.4 g/dl (31.0-36.0); Mean Corpuscular Hemoglobin 33.3 pg (27.0-33.0); Mean Platelet Volume 10.1 fL (9.4-12.4); NRBC Pct Auto 0.4 /100WBC (0.0-0.2); Platelet Count 339 X10*3/uL (160-400); Red Blood Count 2.37 X10*6/uL (4.60-5.80); Red Cell Distribution Width 15.5 % (11.0-16.0); White Blood Count 16.7 X10*3/uL (4.8-10.8)
[2021-06-09 09:09] LABS: Anion Gap 10 (12-20); Blood Urea Nitrogen 19 mg/dL (9-16); Carbon Dioxide 25 mmol/L (22-29); Chloride 108 mmol/L (96-108); Estimated Glomerular Filt Rate 46; Glucose Random 183 mg/dL (60-115); Sodium 139 mmol/L (135-145)
--- NOTE | 2021-06-09 11:01 | PC.NURSE ---
Pt A&Ox3, ambulatory with steady gait. Colostomy emptied for 150cc liquid brown stool, no blood seen at this time. Pt medicated as per [facility] orders. LCA, abd soft, non tender, tolerating clear diet well at this time. Call lyle within reach. Will continue to monitor.
[2021-06-09 12:36] LABS: Glucose, Whole Blood 125 mg/dL (60-115)
--- NOTE | 2021-06-09 14:03 | HO.PM.IMPN ---
Subjective Subjective Date of Service: 06/09/21 Interval History: seen and examined this morning had some abdominal pain overnight which he describes as stabbing. now resolved. no nausea or vomiting Review of Systems Review of Systems: Yes all other systems are reviewed and are negative Constitutional Constitutional: Denies chills and Reports fever(s) Physical Exam Vital Signs: Vital Signs: Last Vital Signs Temp 97.8 F 06/08/21 17:22 Pulse 56 06/08/21 23:39 Resp 15 06/08/21 23:39 BP 121/47 L 06/08/21 23:39 Pulse Ox 94 06/08/21 23:39 BMI result Body Mass Index 31.9 Const: General: cooperative, comfortable, no acute distress, alert and awake Eyes: Sclerae: sclerae normal Resp: Effort & Inspection: normal respiratory effort and able to speak in complete sentences Auscultation: clear to auscultation bilaterally Cardio: Heart sounds: S1 normal heart sound present and S2 normal heart sound present GI: Other: abdomen soft, non-tender; ostomy with non-bloody output Extrem: Other: no leg edema Objective Data Active Medications Abacavir Sulfate (Abacavir Sulfate 300 Mg Tablet) 600 mg PO DAILY [facility] Last Admin: 06/09/21 10:47 Dose: 600 mg Documented by: CECILY-CARLEEN Acetaminophen (Acetaminophen 325 Mg Tablet) 650 mg PO Q6H PRN PRN Reason: Pain, Mild (Pain Scale 1-3) Albuterol Sulfate (Albuterol Sulfate 90 Mcg 8 Gm Inhaler) 2 puff INHALE QID PRN PRN Reason: Respiratory Distress Amlodipine Besylate (Amlodipine Besylate 10 Mg Tablet) 10 mg PO DAILY [facility]; Protocol Last Admin: 06/09/21 08:12 Dose: 10 mg Documented by: CECILY-CARLEEN Buprenorphine/Naloxone (Buprenorphine/Naloxone 8/2 Mg Film) 3 film SUBLINGUAL DAILY [facility] Last Admin: 06/09/21 08:13 Dose: 3 film Documented by: CECILY-CARLEEN Buspirone HCl (Buspirone Hcl 5 Mg Tablet) 5 mg PO TID [facility] Last Admin: 06/09/21 08:12 Dose: 5 mg Documented by: CECILY-CARLEEN Carvedilol (Carvedilol 12.5 Mg Tablet) 12.5 mg PO BID [facility]; Protocol Last Admin: 06/09/21 08:13 Dose: 12.5 mg Documented by: CRUZ Dextrose (Dextrose 50 % 25 Gm/50 Ml Syringe) 25 gm IVPUSH Q15M PRN; Protocol PRN Reason: per Hypoglycemia Standing Ord. Docusate Sodium (Docusate Sodium 100 Mg Capsule) 100 mg PO DAILY PRN PRN Reason: Constipation Dolutegravir Sodium (Dolutegravir Sodium 50 Mg Tablet) 50 mg PO DAILY [facility] Last Admin: 06/09/21 08:13 Dose: 50 mg Documented by: CRUZ Gabapentin (Gabapentin 600 Mg Tablet) 600 mg PO BID [facility] Last Admin: 06/09/21 08:13 Dose: 600 mg Documented by: CRUZ Glucose (Glucose Gel 15 Gm Gel..Gram.) 15 gm PO Q15M PRN; Protocol PRN Reason: per Hypoglycemia Standing Ord. Hydromorphone HCl (Hydromorphone Hcl 4 Mg Tablet) 4 mg PO Q3H PRN PRN Reason: Pain (Scale Score 4-6) Last Admin: 06/09/21 08:12 Dose: 4 mg Documented by: CRUZ Insulin Human Lispro (Insulin Lispro 100 Unit/Ml 3 Ml Vial) 0 unit SUBCUT QIDACHS [facility]; Protocol Last Admin: 06/09/21 07:44 Dose: Not Given Documented by: CRUZ Non-Admin Reason: No Insulin Coverage Lamivudine (Lamivudine 150 Mg Tablet) 300 mg PO DAILY [facility] Last Admin: 06/09/21 08:12 Dose: 300 mg Documented by: CRUZ Loratadine (Loratadine 10 Mg Tablet) 10 mg PO DAILY PRN PRN Reason: Allergic Symptoms Morphine Sulfate (Morphine Sulfate 4 Mg/Ml Cartridge) 4 mg IVPUSH Q4H PRN; Protocol PRN Reason: Pain, Severe (Pain Scale 7-10) Last Admin: 06/07/21 08:35 Dose: 4 mg Documented by: CRUZ Ondansetron HCl (Ondansetron Hcl 4 Mg/2 Ml Vial) 4 mg IVPUSH Q8H PRN PRN Reason: Nausea and Vomiting Last Admin: 06/09/21 05:04 Dose: 4 mg Documented by: ANABELL Pantoprazole Sodium (Pantoprazole Sodium 40 Mg/10 Ml Vial) 40 mg IVPUSH BID@0630,1630 [facility] Last Admin: 06/09/21 06:18 Dose: 40 mg Documented by: ANABELL Pharmacy Consult (Consult Rx Perform Med Rec) 1 each MISCELLANE ONCE PRN PRN Reason: Consult order Pravastatin Sodium (Pravastatin Sodium 40 Mg Tablet) 40 mg PO BEDTIME [facility] Last Admin: 06/08/21 21:30 Dose: 40 mg Documented by: ANABELL Sertraline HCl (Sertraline Hcl 25 Mg Tablet) 75 mg PO DAILY [facility] Last Admin: 06/09/21 08:13 Dose: 75 mg Documented by: CRUZ Sodium Chloride (0.9 % Sodium Chloride Flush 3 Ml Syringe) 3 ml IVFLUSH QSHIFT [facility] Last Admin: 06/09/21 08:13 Dose: 3 ml Documented by: CRUZ Trazodone HCl (Trazodone Hcl 100 Mg Tablet) 100 mg PO BEDTIME PRN PRN Reason: Sleep Last Admin: 06/08/21 21:34 Dose: 100 mg Documented by: ANABELL Labs CBC & Chem 7: 06/09/21 08:50 06/09/21 08:50 Labs: Laboratory Results - last 24 hr 06/08/21 06/08/21 06/09/21 18:20 21:24 07:32 MCV MCH MCHC RDW Plt Count MPV Absolute Nucleated RBC Nucleated RBC % (auto) Anion Gap Estim Creat Clear Calc Estimated GFR POC Glucose 89 126 H 101 Random Glucose Calcium 06/09/21 06/09/21 06/09/21 08:50 08:50 12:33 MCV 103.0 H MCH 33.3 H MCHC 32.4 RDW 15.5 Plt Count 339 MPV 10.1 Absolute Nucleated RBC 0.070 H Nucleated RBC % (auto) 0.4 H Anion Gap 10 L Estim Creat Clear Calc 47.0 Estimated GFR 46 POC Glucose 125 H Random Glucose 183 H D Calcium 8.0 L Microbiology Microbiology Results: Microbiology 06/06/21 20:54 Blood Culture - Preliminary Blood - Venous No growth after 48 hours. 06/06/21 19:58 Blood Culture - Preliminary Blood - Venous No growth after 48 hours. Assessment and Plan (1) Acute GI bleeding: Status: Acute (2) Complete small bowel obstruction: Status: Acute Plan This is a 71 yo M who was presented to [facility] [place] on 06/06/21 with complaints of abdominal pain. He was found to have SBO on CT as well as acute blood loss anemia secondary to GI bleed. He was admitted for further work up and treatment. 1. Acute Blood loss anemia secondary to GI bleed secondary to duodenal ucler (with visible vessel) slight drop in HCT, but clinically no evidence of further bleeding continue IV ppi for now Trend h/h and transfuse below 8 Reported that he had been taking Aleve at home due to his recent hip replacement GI input appreciated -- recommended no OAC or NSAIDS will advance diet and follow CBC in am 2. Small bowel obstruction s/p NPO and NG tube placement clinically resolved -- passing stools in ostomy and NG tube has been removed Gen Surg input appreciated 3. Acute Kidney injury baseline SCr appears to be normal suspected secondary to hypovoluemia from his bleed renal function improving continue to monitor 4. DM hold orals, use sliding scale 5. HTN observe off antihypertensvies 6. Mood continue his baseline meds 7. History of HIV continue HAART 8. Recent Hip replacement no OAC for now due to acute gi bleed [place] [facility] [place] Code DVT pptx, Mechanical due to GI bleed attending: dr. herrera Quality Stroke Does the patient have a stroke diagnosis?: No VTE Prior VTE?: No VTE Risk Level:: Medical - moderate - high VTE Device Contraindication: N/A - Device Ordered VTE Drug Contraindication: Treatment Not Tolerated
[2021-06-09 14:32] VITALS: BP 132/51; PULSE 62; RESP 14; TEMP 36.8; O2SAT 92
[2021-06-09 18:08] LABS: Glucose, Whole Blood 109 mg/dL (60-115)
[2021-06-09 19:11] VITALS: BP 132/55; PULSE 62; RESP 15; TEMP 37.4; O2SAT 92
[2021-06-09] MEDS: traZODone HCL 100 MG TABLET PO (20:50)
[2021-06-09] MEDS: Pravastatin Sodium 40 MG TABLET PO (20:50)
[2021-06-09 20:51] LABS: Glucose, Whole Blood 138 mg/dL (60-115)
--- NOTE | 2021-06-09 21:30 | PC.NURSE ---
RN assumed care of patient at 1900. Patient resting comfortably, colostomy emptied for 100mL of liquid brown stool. Patient medicated per JUN. Will continue to monitor
[2021-06-10 01:25] VITALS: BP 133/49; PULSE 60; RESP 14; TEMP 36.9; O2SAT 90
[2021-06-10] MEDS: Pantoprazole Sodium 40 MG/10 ML VIAL IVPUSH (06:26)
[2021-06-10 06:46] LABS: Hematocrit 26.4 % (42.0-52.0); Hemoglobin 8.4 g/dl (14.0-18.0); Mean Corpuscular HGB Conc 31.8 g/dl (31.0-36.0); Mean Corpuscular Hemoglobin 32.8 pg (27.0-33.0); Mean Corpuscular Volume 103.1 fL (80.0-98.0); Mean Platelet Volume 9.9 fL (9.4-12.4); NRBC Pct Auto 0.4 /100WBC (0.0-0.2); Platelet Count 372 X10*3/uL (160-400); Red Blood Count 2.56 X10*6/uL (4.60-5.80); Red Cell Distribution Width 15.8 % (11.0-16.0); White Blood Count 18.3 X10*3/uL (4.8-10.8)
[2021-06-10 07:18] LABS: Glucose, Whole Blood 130 mg/dL (60-115)
[2021-06-10] MEDS: Sertraline HCL 25 MG TABLET 75 MG PO (07:19)
[2021-06-10] MEDS: carvediloL 12.5 MG TABLET PO (07:19)
[2021-06-10] MEDS: Dolutegravir Sodium 50 MG TABLET PO (07:19)
[2021-06-10] MEDS: lamiVUDine 150 MG TABLET 300 MG PO (07:19)
[2021-06-10] MEDS: amLODIPine Besylate 10 MG TABLET PO (07:19)
[2021-06-10] MEDS: busPIRone HCl 5 MG TABLET PO (07:19)
[2021-06-10] MEDS: Buprenorphine/Naloxone 8/2 mg FILM 3 FILM SUBLINGUAL (07:20)
[2021-06-10] MEDS: Gabapentin 600 MG TABLET PO (07:20)
[2021-06-10 07:37] VITALS: BP 126/48; PULSE 64; RESP 17; O2SAT 96
--- NOTE | 2021-06-10 10:31 | PC.NURSE ---
took morning meds, ate breakfast. in good spirits. pain controlled. ostomy bag changed, stoma appears healthy. producing loose stool and gas. denies abd pain/nausea. completing self care/adls in pt restroom w minimal assistance. likely plan for dc this afternoon per provider.
[2021-06-10 11:20] VITALS: BP 123/62; PULSE 57; RESP 18; O2SAT 94
[2021-06-10 11:35] LABS: Glucose, Whole Blood 160 mg/dL (60-115)
--- NOTE | 2021-06-10 12:12 | PM.DS ---
DS: Providers Provider Date of Service: 06/10/21 Date of admission: 06/06/21 23:07 Date of discharge: 06/10/21 Primary care physician: Noemi Ruffin MD Consults: 06/06/21 23:06 Consult to Gastroenterology Routine Consulting Provider: Kosta Mustafa Reason for consultation: GI bleed Has provider been notified: No Consult to General Surgery Routine Consulting Provider: Jacky Vo Reason for consultation: SBO Has provider been notified: No Attending physician on discharge: Familia Staton Discharging clinician: Arianne Coleman DS: Diagnosis Discharge Diagnosis (1) Acute GI bleeding: Status: Acute (2) Complete small bowel obstruction: Status: Acute (3) Acute kidney injury: Status: Acute (4) Duodenal ulcer: Status: Acute DS: Summary Hospital Course Hospital Course: From H&P on the day of admission this is a 71-year-old male with past medical history of diabetes, HIV, HTN, hyperlipidemia, ulcerative colitis status post colostomy, chronic hepatitis, CKD who presents to the hospital with complaints of abdominal pain, nausea vomiting, blood in urostomy bag? that started today.? Patient had right hip replacement about a week ago and is currently on Eliquis for prophylaxis, he reports tenderness and abdominal pain diffuse, nonradiating, associated with vomiting, also started today, he reports that he has been seeing feces in his ostomy bag that has been bloody.? He denies any chest pain, no shortness of breath, no lower extremity edema, no headache or change in vision, no numbness weakness or tingling.? On arrival to the ED patient is hemodynamically stable with no significant abnormal vitals Labs are significant for? WBC count of 20.7, hemoglobin of 6.5 with a baseline around 12, hematocrit of 19.6,? PT of 14.9, INR of 1.3, BUN of 68, creatinine of 2.49 with a baseline around 1, magnesium of 1.5, albumin of 2.7, UA is negative, stool occult blood positive, Abdominal CT shows small bowel obstruction with significant dilated proximal jejunum and decompressed small caliber ileum. NG tube in place and patient will be admitted for further management Acute Blood loss anemia secondary to GI bleed secondary to duodenal ucler (with visible vessel). Was seen by GI and underwent EGD with above findings. Reported that he had been taking Aleve at home due to his recent hip replacement in addition to eliquis. H/H has been stable for 48 hours. He will be discharged home with increased dose of PPI. He should follow up with GI. He has been instructed to stop using NSAIDs and hold Eliquis for at least 2 weeks. Small bowel obstruction. Initially made NPO and NG tube placement. seen by surgery and GI. Improved with conservative management. He is now tolerating a full diet. Acute Kidney injury baseline SCr appears to be normal. Creatinine improved from 2.49 to 1.49. Will hold HCTZ on discharge. Repeat labs in one week. Follow up with PCP Blood pressure has been stable without HCTZ. Leukocytosis. appears to be chronic. did trend down during admission. recommend outpatient follow up. Time Spent with Patient Time attestation: Total time spent providing and/or coordinating discharge services: Discharge coordination time: Greater than 30 minutes Quality: Stroke Does the patient have a stroke diagnosis?: No Physical Exam Vital Signs: Vital Signs: Last Vital Signs Temp 98.4 F 06/10/21 01:25 Pulse 57 06/10/21 11:20 Resp 18 06/10/21 11:20 BP 123/62 06/10/21 11:20 Pulse Ox 94 06/10/21 11:20 BMI result Body Mass Index 31.9 Const: General: cooperative, comfortable, alert and awake Nutritional Appearance: overweight Resp: Effort & Inspection: normal respiratory effort and able to speak in complete sentences Cardio: Rate: regular rate Heart sounds: S1 normal heart sound present and S2 normal heart sound present GI: Other: ostomy with output in bag; abdomen soft, non-tender Psych: Affect: normal affect DS: Data Data Completed and Pending Completed studies during hospitalization [Text1]: Pending at discharge 06/07/21 14:16 Surgical [PTH] Routine Labs on day of discharge: Laboratory Results - last 24 hr 06/09/21 06/09/21 06/09/21 12:33 18:05 20:43 WBC RBC Hgb Hct MCV MCH MCHC RDW Plt Count MPV Absolute Nucleated RBC Nucleated RBC % (auto) POC Glucose 125 H 109 138 H 06/10/21 06/10/21 06/10/21 06:36 07:06 11:26 WBC 18.3 H RBC 2.56 L Hgb 8.4 L Hct 26.4 L MCV 103.1 H MCH 32.8 MCHC 31.8 RDW 15.8 Plt Count 372 MPV 9.9 Absolute Nucleated RBC 0.070 H Nucleated RBC % (auto) 0.4 H POC Glucose 130 H 160 H Preliminary micro results at discharge 06/06/21 20:54 Blood Culture - Preliminary Blood - Venous No growth after 48 hours. 06/06/21 19:58 Blood Culture - Preliminary Blood - Venous No growth after 48 hours. Discharge Plan Discharge Patient Disposition: Home, Self-Care Discharge Diagnosis: Acute GI Bleeding Acute blood loss anemia secondary to duodenal ulcer Small bowel obstruction MARY JO Referrals: Noemi Ruffin MD [Primary Care Provider] - 1 Week Kosta Mustafa [Physician] - 1 Week Discharge Medications: New omeprazole 40 mg capsule,delayed release(DR/EC) 40 mg PO BID 30 Days Qty: 60 0RF Continued buspirone 5 mg Tablet 5 mg PO TID 0RF gabapentin 600 mg Tablet 600 mg PO BID 0RF carvedilol 12.5 mg Tablet 12.5 mg PO BID 0RF Rx Instructions: must administer with a meal/food cetirizine 10 mg Tablet 10 mg PO DAILY PRN (Reason: Allergic Symptoms) 0RF pravastatin 40 mg Tablet 40 mg PO BEDTIME 0RF trazodone 100 mg Tablet 100 mg PO BEDTIME PRN (Reason: Sleep) 0RF amlodipine 10 mg Tablet 10 mg PO DAILY 0RF albuterol sulfate 90 mcg/actuation Hfa Aerosol Inhaler 2 puff INHALATION QID PRN (Reason: Respiratory Distress) 0RF sertraline 50 mg Tablet 75 mg PO DAILY 0RF acetaminophen 500 mg Tablet 500 mg PO BID PRN (Reason: Pain (Scale Score 1-3)) 0RF Januvia 50 mg Tablet 50 mg PO DAILY 0RF Triumeq 600-50-300 mg Tablet 1 tab PO DAILY 0RF hydromorphone 4 mg Tablet 4 mg PO Q3H PRN (Reason: Pain (Scale Score 4-6)) 0RF buprenorphine-naloxone 8-2 mg Film 3 film SUBLINGUAL DAILY 0RF diclofenac sodium 1 % Gel 2 g TOPICAL BID 0RF Protocol: Apply to: Apply to: PAINFUL KNEES Rx Instructions: apply to single elbow, wrist or hand; for hand includes palm/fingers/back of hand Held hydrochlorothiazide 12.5 mg Tablet 12.5 mg PO DAILY 0RF Hold Instructions: hold until repeat labs in one week or you speak with PCP apixaban 2.5 mg Tablet 2.5 mg PO BID 0RF Hold Instructions: hold until follow up with ortho Discontinued omeprazole 20 mg Capsule,Delayed Release(Dr/Ec) 20 mg PO DAILY@0630 0RF Discharge Orders: Discharge Order (Routine); Ordered 06/10/21 Ordered By: Arianne Coleman Activity on Discharge: As tolerated Stand Alone Forms: Patient Portal Discharge page Other Ambulatory Orders: Basic Metabolic Panel (Routine) Timeframe: 20210617 Facility: [facility] - Location: Laboratory Ordered By: Arianne Coleman Complete Blood Count no Diff (Routine) Timeframe: 20210617 Facility: [facility] - Location: Laboratory Ordered By: Arianne Coleman Care Plan Goals: see below Health Concerns: GI bleeding duodenal ulcer MARY JO Plan of Treatment: do not take Eliquis for at least 2 weeks. follow up with your orthopedic provider do not NSAIDs (aspirin, ibuprofen, aleve or any similar medications) your dose of omeprazole has been increased call to schedule follow up with GI office for duodenal ulcer Call to schedule follow up with ortho and inform them you have been taken off your blood thinner Call to schedule follow up with PCP to follow kidney function and CBC Repeat labs are scheduled in one week, call to discuss results with your PCP Assessment: see discharge summary Discharge Date/Time: 06/10/21 13:40
--- NOTE | 2021-06-10 12:19 | P.CDIC_ITS ---
CDI Concurrent Query Documentation Clarification: PHYSICIAN'S DOCUMENTATION REQUEST Date of Query: 06/10/21 1220 Patient Name: Dhiraj Huntley Admit Date: 06/06/21 Dear Doctor, A review of the medical record indicates additional documentation may be needed. Please review below and update the documentation accordingly. Risk Factors/Clinical Indicators/Treatments H&P: 06/06 -History of Present Illness: CKD PMH: CKD Cr. of 2.49 w a baseline around 1. MARY JO GI note: 06/08 - PMH renal insufficiency Please clarify which of the following accurately represents the patient's renal status: * Acute renal failure on Chronic Kidney Disease (CKD) Stage 1-5 * CKD, please provide stage - see criteria * Other (please specify) * Unable to determine Criteria for MARY JO* Stages of Chronic Kidney Disease* 1. Increase in serum creatinine by ? 0.3 mg/dL Level Description GFR (?26.5 micromol/L) within 48 hours, or G1 Normal or High > 90 2. Increase in serum creatinine to ?1.5 times baseline, G2 Mildly decreased 60 ? 89 which is known or presumed to have occurred within 7 days, or G3a Mildly to moderately decreased 45 ? 59 3. Urine volume <0.5 mL/kg/hour for six hours G3b Moderately to severely decreased 30 - 44 G4 Severely decreased 15 ? 29 G5 Kidney failure < 15 *Source: Kidney Disease: Improving Global Outcomes (KDIGO) 2012 Use of terms such as suspected, likely, concern for, or probable (associated with a specific diagnosis that is being evaluated, monitored, or treated as if it exists) are acceptable and can be coded in the inpatient setting, when documented at the time of discharge. Thank you, Celine Moffett [facility], CDIS Extension: [phone] Please use your independent medical judgment in providing your response. THIS QUERY IS PART OF THE PERMANENT MEDICAL RECORD Provider Response: Acute Kidney Failure
--- NOTE | 2021-06-10 13:23 | MHC.CM.PN ---
PT CLEARED TO [facility] WITH NO NEW SERVICES TRANSPORT TBD
== END 2021-06-10 13:40 | disposition home or self-care (01) | DRG 378 ==
LOC: HO.ED 20:07 → HO.EDOVER 23:39
PROVIDERS: Family Medicine; Internal Medicine Gastroenterology; Nurse Practitioner Acute Care; Admitting Provider Internal Medicine; Emergency Provider Internal Medicine; PCP Internal Medicine; Visit Provider Physician Assistant Medical
PROC: 0DB78ZX Excision of Stomach, Pylorus, Via Natural or Artificial Opening Endoscopic, Diagnostic (ICD-10-PCS; principal; 2021-06-07 12:50)
DX: K26.4 Chronic or unspecified duodenal ulcer with hemorrhage (principal); N17.9 Acute kidney failure, unspecified; D62 Acute posthemorrhagic anemia; K56.601 Complete intestinal obstruction, unspecified as to cause; E78.5 Hyperlipidemia, unspecified; Z93.3 Colostomy status; D72.829 Elevated white blood cell count, unspecified; E11.9 Type 2 diabetes mellitus without complications; Z86.19 Personal history of other infectious and parasitic diseases; Z21 Asymptomatic human immunodeficiency virus [HIV] infection status; Z20.822 Contact with and (suspected) exposure to COVID-19; Z96.652 Presence of left artificial knee joint; Z87.891 Personal history of nicotine dependence; Z79.01 Long term (current) use of anticoagulants; Z79.899 Other long term (current) drug therapy
CPT/HCPCS: 36415; 71045; 74176; 80048; 80053; 80076; 81003; 82272; 82947; 83605; 83735; 85014; 85018; 85025; 85027; 85610; 85730; 86850; 86900; 86901; 86923; 87040; 87635; 88305; 88342; 93005; 96361; 96365; 96375; 96376; 99285; 99291; J0171; J2270; J2370; J2405; J2543; P9016

== ENCOUNTER 2021-06-18 17:19 | Inpatient (IN) | payer MEDICARE, SELFPAY ==
--- NOTE | ~2021-06-18 | US_ITS ---
EXAMINATION: US VENOUS ULTRASOUND WITH DOPPLER LOWER EXTREMITY, BILATERAL CLINICAL INFORMATION: Postoperative pain and swelling. COMPARISON: None TECHNIQUE: Ultrasound of the deep veins is performed from the hip to the calf with compression sonography and color and pulse Doppler assessment. Spectral analysis with color-flow imaging is performed. FINDINGS: RIGHT: There is normal venous compression and respiratory variation and augmented flow. The visualized common femoral vein, superficial femoral vein, profunda femoral vein, popliteal vein, and the trifurcation region shows no evidence of deep venous thrombosis. Calf veins not well seen due to swelling and edema. The visualized portions of peroneal and posterior tibial veins are unremarkable. There is no significant popliteal fossa cyst. LEFT: There is normal venous compression and respiratory variation and augmented flow. The visualized common femoral vein, superficial femoral vein, profunda femoral vein, popliteal vein, and the trifurcation region shows no evidence of deep venous thrombosis. Calf veins not well seen due to swelling and edema. The visualized portions of the posterior tibial veins are unremarkable. Peroneal vein not visualized. There is no significant popliteal fossa cyst. If the patient's symptoms persist, followup ultrasound in 5 days 7 days might be of value to exclude proximal propagation from a non-visualized calf vein. US/US venous duplex LE BI IMPRESSION: No DVT demonstrated in the bilateral lower extremity.
--- NOTE | ~2021-06-18 | XR_ITS ---
EXAMINATION: XR CHEST CLINICAL INFORMATION: Covid positive COMPARISON: Chest x-ray 06/06/2021 TECHNIQUE: Frontal view of the chest was obtained. FINDINGS: Subtle streaky opacities at the left lung base and retrocardiac area persistent unchanged since 06/06/2021. May be atelectasis or scarring. No focal consolidation. No pulmonary vascular congestion. There is no pleural effusion. The heart size is normal. The cardiac and mediastinal contours are normal. There are calcifications of the thoracic aorta. There are multilevel degenerative changes of dorsal spine. XR/XR chest 1V IMPRESSION: Persistent streaky subtle densities at the left lung base may be atelectasis or scarring. No focal consolidation.
[2021-06-18 17:29] VITALS: BP 130/59; PULSE 74; RESP 18; TEMP 36.9; O2SAT 98; BMI 31.9
--- NOTE | 2021-06-18 17:47 | ED.RECABL ---
HPI - Recheck/Abnormal Lab/Rx General Chief Complaint: Recheck/Abnormal Lab/Rx Stated Complaint: abnormal labs Time Seen by Provider: 06/18/21 17:26 Source: patient Mode of arrival: ambulatory Limitations: no limitations History of Present Illness HPI narrative: Patient 71 years old with history diabetes HIV with undetectable viral load, hypertension, hyperlipidemia, ulcerative colitis status post colostomy 5 years ago, chronic hepatitis, CKD, chronic leukocytosis etiology not known, upper GI bleed with duodenal ulcer 06/07/21 with visible vessel treated with epinephrine and cautery no active bleeding comes here as routine labs were done earlier 2 days ago which showed elevated potassium and PCP asked him to go to hospital. Patient otherwise feels at his baseline denies any shortness of breath or chest pain or palpitation has chronic leg edema not on any diuretics. Related Data Home Medications Medication Instructions Recorded Confirmed abacavir 600 mg-dolutegravir 50 1 tab PO DAILY 06/06/21 06/18/21 mg-lamivudine 300 mg tablet (Triumeq) albuterol sulfate 90 mcg/actuation 2 puff INHALATION QID PRN 06/06/21 06/18/21 aerosol inhaler amlodipine 10 mg tablet 10 mg PO DAILY 06/06/21 06/18/21 buprenorphine 8 mg-naloxone 2 mg 3 film SUBLINGUAL DAILY 06/06/21 06/18/21 sublingual film buspirone 5 mg tablet 5 mg PO TID 06/06/21 06/18/21 carvedilol 12.5 mg tablet 12.5 mg PO BID 06/06/21 06/18/21 cetirizine 10 mg tablet 10 mg PO DAILY PRN 06/06/21 06/18/21 diclofenac sodium 1 % topical gel 2 g TOPICAL BID 06/06/21 06/18/21 gabapentin 600 mg tablet 600 mg PO BID 06/06/21 06/18/21 hydrochlorothiazide 12.5 mg tablet 12.5 mg PO DAILY 06/06/21 06/18/21 hydromorphone 4 mg tablet 4 mg PO Q3H PRN 06/06/21 06/18/21 pravastatin 40 mg tablet 40 mg PO BEDTIME 06/06/21 06/18/21 sertraline 50 mg tablet 75 mg PO DAILY 06/06/21 06/18/21 sitagliptin 50 mg tablet (Januvia) 50 mg PO DAILY 06/06/21 06/18/21 trazodone 100 mg tablet 100 mg PO BEDTIME PRN 06/06/21 06/18/21 tramadol 50 mg tablet 1 - 2 tab PO Q4-6H PRN 06/18/21 06/18/21 Previous Rx's Medication Instructions Recorded omeprazole 40 mg capsule,delayed 40 mg PO BID 30 Days #60 cap 06/10/21 release Allergies Allergy/AdvReac Type Severity Reaction Status Date / Time ampicillin [AMPICILLIN] Allergy Mild HIVES Verified 06/07/21 12:29 aspirin [ASPIRIN] Allergy Unknown RASH Verified 06/07/21 12:29 Review of Systems Review of Systems: Yes all other systems are reviewed and are negative [facility] Past Medical History Medical History Chronic hepatitis Chronic use of nonprescription opiate drugs CKD (chronic kidney disease) Diabetes mellitus HIV (human immunodeficiency virus infection) HTN (hypertension), benign Hyperlipemia Pancreatitis Ulcerative colitis Surgical History H/O colectomy History of total left knee replacement (TKR) Hx of cholecystectomy Hx of splenectomy Status post right hip replacement Social History Social History Alcohol intake: never Patient Tobacco Use Status: Former Tobacco user Tobacco use type: Cigarette Advance Directives: Yes Advance Directives on File: Yes Advance Directives Date on File: 06/07/21 service: No Current occupational status: disabled Physical Exam Vital Signs: Vital Signs: Last Vital Signs Temp 98.4 F 06/18/21 21:15 Pulse 65 06/18/21 23:48 Resp 16 06/18/21 23:48 BP 159/78 H 06/18/21 23:48 Pulse Ox 95 06/18/21 23:48 BMI result Body Mass Index 31.9 Appearance: Alert. Oriented X3. No acute distress. Eyes: PERRLA, No Nystagmus pallor ENT: Pharynx normal. Oral Mucosa moist Neck: Normal inspection. Neck supple. CVS: Normal heart rate and rhythm. Pulses normal. Respiratory: No respiratory distress. Equal air entry bilateral, no wheezing/rales/rhonchi Abdomen: Soft and nontender. Colostomy bag in place with brown stool sounds are present, no mass palpable, no CVA tenderness Skin: Skin warm and dry. Normal skin color. Normal skin turgor. Extremities: 2+ lower extremity edema. No calf tenderness Neuro: Oriented X 3. No motor deficit. No sensory deficit. MDM - Recheck/Abnormal Lab/Rx MDM Narrative Medical decision making narrative: Patient's history of CKD with a KI previous creatinine was 1.49 on 06/09 now it is 2.32 also has hyperkalemia potassium 5.9 with no acute EKG changes also patient had hemoglobin dropped to 7.7 from previous 8.4 on 06/10 stools are brown patient denies any abdominal pain will admit patient for worsening of kidney failure hyperkalemia anemia. Patient does have chronic leukocytosis never had any workup done the past MCV is also elevated will check her B12 and folate may need Hematology consult Patient COVID test came positive although does not have any symptoms patient already received a booster dose 2 months ago will do the chest x-ray Chest x-ray without any infiltrate Medical Records Attestation: I reviewed the patient's medical records. Lab Data Attestation: I reviewed the patient's lab results. Result diagrams: 06/18/21 18:07 06/18/21 18:07 Labs: Lab Results 06/18/21 06/18/21 06/18/21 Range/Units 18:07 18:07 18:45 WBC 12.8 H (4.8-10.8) X10*3/uL RBC 2.36 L (4.60-5.80) X10*6/uL Hgb 7.7 L (14.0-18.0) g/dl Hct 24.1 L (42.0-52.0) % MCV 102.1 H (80.0-98.0) fL MCH 32.6 (27.0-33.0) pg MCHC 32.0 (31.0-36.0) g/dl RDW 15.1 (11.0-16.0) % Plt Count 565 H D (160-400) X10*3/uL MPV 9.6 (9.4-12.4) fL Immature Gran % (Auto) 0.2 (0.0-0.4) % Neut % (Auto) 57.4 (45-73) % Lymph % (Auto) 24.1 (20-40) % [place] % (Auto) 12.2 H (2-11) % Eos % (Auto) 5.5 H (0-4) % Baso % (Auto) 0.6 (0-2) % Lymph # (Auto) 3.1 (1.2-4.9) X10*3/uL [place] # (Auto) 1.6 H (0.1-1.2) X10*3/uL Eos # (Auto) 0.7 H (0.0-0.4) X10*3/uL Baso # (Auto) 0.1 (0.0-0.2) X10*3/uL Abs Immat Gran (auto) 0.02 (0.00-0.03) X10*3/uL Absolute Neuts (auto) 7.3 (2.0-8.3) x10*3/uL Absolute Nucleated RBC 0.000 (0.0-0.012) X10*3/uL Nucleated RBC % (auto) 0.0 (0.0-0.2) /100WBC PT 12.5 (9.9-13.0) SEC INR 1.1 (0.9-1.1) APTT 34.5 (24.1-38.0) SEC Sodium 137 (135-145) mmol/L Potassium 5.9 H D (3.3-5.1) mmol/L Chloride 107 (96-108) mmol/L Carbon Dioxide 25 (22-29) mmol/L Anion Gap 11 L (12-20) BUN 32 H D (9-16) mg/dL Creatinine 2.32 H (0.5-1.4) mg/dL Estim Creat Clear Calc 30.2 Estimated GFR 28 POC Glucose (60-115) mg/dL Random Glucose 112 D (60-115) mg/dL Calcium 8.7 D (8.4-10.2) mg/dL COVID-19 (RAYNA) (Negative) COVID-19 Clin Com Blood Type Antibody Screen 06/18/21 06/18/21 06/18/21 Range/Units 18:46 19:14 19:28 WBC (4.8-10.8) X10*3/uL RBC (4.60-5.80) X10*6/uL Hgb (14.0-18.0) g/dl Hct (42.0-52.0) % MCV (80.0-98.0) fL MCH (27.0-33.0) pg MCHC (31.0-36.0) g/dl RDW (11.0-16.0) % Plt Count (160-400) X10*3/uL MPV (9.4-12.4) fL Immature Gran % (Auto) (0.0-0.4) % Neut % (Auto) (45-73) % Lymph % (Auto) (20-40) % [place] % (Auto) (2-11) % Eos % (Auto) (0-4) % Baso % (Auto) (0-2) % Lymph # (Auto) (1.2-4.9) X10*3/uL [place] # (Auto) (0.1-1.2) X10*3/uL Eos # (Auto) (0.0-0.4) X10*3/uL Baso # (Auto) (0.0-0.2) X10*3/uL Abs Immat Gran (auto) (0.00-0.03) X10*3/uL Absolute Neuts (auto) (2.0-8.3) x10*3/uL Absolute Nucleated RBC (0.0-0.012) X10*3/uL Nucleated RBC % (auto) (0.0-0.2) /100WBC PT (9.9-13.0) SEC INR (0.9-1.1) APTT (24.1-38.0) SEC Sodium (135-145) mmol/L Potassium (3.3-5.1) mmol/L Chloride (96-108) mmol/L Carbon Dioxide (22-29) mmol/L Anion Gap (12-20) BUN (9-16) mg/dL Creatinine (0.5-1.4) mg/dL Estim Creat Clear Calc Estimated GFR POC Glucose 81 47 L* (60-115) mg/dL Random Glucose (60-115) mg/dL Calcium (8.4-10.2) mg/dL COVID-19 (RAYNA) (Negative) COVID-19 Clin Com Blood Type O Positive Antibody Screen NEGATIVE 06/18/21 06/18/21 06/18/21 Range/Units 19:46 20:00 20:25 WBC (4.8-10.8) X10*3/uL RBC (4.60-5.80) X10*6/uL Hgb (14.0-18.0) g/dl Hct (42.0-52.0) % MCV (80.0-98.0) fL MCH (27.0-33.0) pg MCHC (31.0-36.0) g/dl RDW (11.0-16.0) % Plt Count (160-400) X10*3/uL MPV (9.4-12.4) fL Immature Gran % (Auto) (0.0-0.4) % Neut % (Auto) (45-73) % Lymph % (Auto) (20-40) % [place] % (Auto) (2-11) % Eos % (Auto) (0-4) % Baso % (Auto) (0-2) % Lymph # (Auto) (1.2-4.9) X10*3/uL [place] # (Auto) (0.1-1.2) X10*3/uL Eos # (Auto) (0.0-0.4) X10*3/uL Baso # (Auto) (0.0-0.2) X10*3/uL Abs Immat Gran (auto) (0.00-0.03) X10*3/uL Absolute Neuts (auto) (2.0-8.3) x10*3/uL Absolute Nucleated RBC (0.0-0.012) X10*3/uL Nucleated RBC % (auto) (0.0-0.2) /100WBC PT (9.9-13.0) SEC INR (0.9-1.1) APTT (24.1-38.0) SEC Sodium (135-145) mmol/L Potassium (3.3-5.1) mmol/L Chloride (96-108) mmol/L Carbon Dioxide (22-29) mmol/L Anion Gap (12-20) BUN (9-16) mg/dL Creatinine (0.5-1.4) mg/dL Estim Creat Clear Calc Estimated GFR POC Glucose 144 H 72 (60-115) mg/dL Random Glucose (60-115) mg/dL Calcium (8.4-10.2) mg/dL COVID-19 (RAYNA) Positive A (Negative) COVID-19 Clin Com See Note Blood Type Antibody Screen ECG Data Attestation: I personally reviewed and interpreted this ECG as follows: Interpretation: Normal sinus rhythm heart rate 69 beats per minute LVH normal intervals normal axis no acute ischemic changes Critical Care Time Critical Care Time Critical Care Time: Yes Total Critical Care Time: 55 Attestation: I spent 55 minutes of critical care, with interventions, assessments, speaking to patient Discharge Plan Discharge Clinical Impression: Acute kidney failure, Acute hyperkalemia, Acute blood loss anemia, Leukocytosis, COVID-19 Patient Disposition: Admitted As Inpatient
--- NOTE | 2021-06-18 17:54 | ECG_ITS ---
Test Reason : ABNORMAL LABS Blood Pressure : / mmHG Vent. Rate : 069 BPM Atrial Rate : 069 BPM P-R Int : 168 ms QRS Dur : 084 ms QT Int : 390 ms P-R-T Axes : 002 -06 025 degrees QTc Int : 417 ms Normal sinus rhythm Minimal voltage criteria for LVH, may be normal variant ( R in aVL ) Borderline ECG When compared with ECG of 06-JUN-2021 21:48, No significant change was found Referred By: Carlo Mirza Electronically Signed By:DENICE ALEJANDRO MD
[2021-06-18 18:12] LABS: MANUAL DIFF FLAG NO
[2021-06-18 18:14] LABS: Basophils Absolute Auto 0.1 X10*3/uL (0.0-0.2); Basophils Percent Auto 0.6 % (0-2); Eosinophils Absolute Auto 0.7 X10*3/uL (0.0-0.4); Eosinophils Percent Auto 5.5 % (0-4); Hematocrit 24.1 % (42.0-52.0); Hemoglobin 7.7 g/dl (14.0-18.0); Imm Gran Abs Auto 0.02 X10*3/uL (0.00-0.03); Imm Gran Pct Auto 0.2 % (0.0-0.4); Lymphocytes Absolute Auto 3.1 X10*3/uL (1.2-4.9); Lymphocytes Percent Auto 24.1 % (20-40); Mean Corpuscular Hemoglobin 32.6 pg (27.0-33.0); Mean Corpuscular Volume 102.1 fL (80.0-98.0); Mean Platelet Volume 9.6 fL (9.4-12.4); Monocytes Absolute Auto 1.6 X10*3/uL (0.1-1.2); Monocytes Percent Auto 12.2 % (2-11); Neutrophils Absolute Auto 7.3 x10*3/uL (2.0-8.3); Neutrophils Percent Auto 57.4 % (45-73); Platelet Count 565 X10*3/uL (160-400); Red Blood Count 2.36 X10*6/uL (4.60-5.80); Red Cell Distribution Width 15.1 % (11.0-16.0); SCAN SMEAR FLAG 1; White Blood Count 12.8 X10*3/uL (4.8-10.8)
[2021-06-18 18:26] LABS: Anion Gap 11 (12-20); Blood Urea Nitrogen 32 mg/dL (9-16); Calcium 8.7 mg/dL (8.4-10.2); Carbon Dioxide 25 mmol/L (22-29); Chloride 107 mmol/L (96-108); Creatinine Clr Calc Pharmacy 30.2; Estimated Glomerular Filt Rate 28; Glucose Random 112 mg/dL (60-115); Potassium 5.9 mmol/L (3.3-5.1); Sodium 137 mmol/L (135-145)
[2021-06-18 18:38] VITALS: BP 161/76; PULSE 79; RESP 15; O2SAT 96
[2021-06-18] MEDS: Sodium Polystyrene Sulfon/Sorb 15 GM/60 ML ORAL.SUSP 30 GM PO (18:40)
[2021-06-18] MEDS: Insulin Regular, Human 100 UNIT/ML 3 ML VIAL IVPUSH (18:46)
[2021-06-18] MEDS: Dextrose 50 % 25 GM/50 ML SYRINGE IVPUSH ×2 (18:48→19:34)
[2021-06-18] MEDS: Calcium Gluconate/NaCl,Iso-Osm 2 GM/100 ML PLAST..BAG IV (18:51)
[2021-06-18 19:01] LABS: INTERNATIONAL NORM RATIO 1.1 (0.9-1.1); Prothrombin Time 12.5 SEC (9.9-13.0)
[2021-06-18 19:03] LABS: Partial Thromboplastin Time 34.5 SEC (24.1-38.0)
[2021-06-18 19:19] LABS: Glucose, Whole Blood 81 mg/dL (60-115)
[2021-06-18 19:33] LABS: Glucose, Whole Blood 47 mg/dL (60-115)
[2021-06-18 19:50] LABS: Glucose, Whole Blood 144 mg/dL (60-115)
[2021-06-18 20:28] VITALS: BP 159/76; PULSE 80; RESP 14; TEMP 36.9; O2SAT 96
--- NOTE | 2021-06-18 20:35 | P.HPHOSP_ITS ---
History of Present Illness Date of Service: 06/18/21 Chief Complaint: Hyperkalemia 71-year-old male with a past medical history of hypertension, hyperlipidemia, diabetes, CKD, opiate dependence on Suboxone, history of ulcerative colitis status post colectomy with subsequent colostomy bag, history of pancreatitis, HIV on HAART therapy, chronic hepatitis; history of left TKR, recent history of right hip replacement; also had a recent history of GI bleed secondary to gastric ulcer-off of Eliquis; anemia, presented to the hospital today with a chief complaint of abnormal labs-hyperkalemia on routine labs done as outpatient. Patient reported that he had routine labs done as outpatient noted to have elevated potassium levels; does not remember the levels; asked to go to the ER for further evaluation. Patient denies any chest pain palpitations lightheadedness dizziness. Denies any numbness tingling or focal weakness. Denies any leg cramps. Patient reports that he has been complaint with his home medications. For mentions that he stay eating and drinking normal. Reports that he had an admission to the hospital about 2 weeks ago for GI bleed secondary to gastric ulcer and as Eliquis was stopped. Patient also reports that he has a right hip replacement done about a month ago; Mentions that he has a right lower extremity swelling which has been gradually worsening over the past 1 month. Also complains of right cough pain. Denies any shortness of breath or dyspnea on exertion. Denies any GI symptoms. Review of all other systems is negative except mentioned above ER course: Per ER team patient on labs noted to have elevated creatinine compared to his baseline as well as potassium levels of 5.9; EKG showed no acute changes; given IV fluids. Admitted to the hospital for further management. [facility] Medical History Chronic hepatitis Chronic use of nonprescription opiate drugs CKD (chronic kidney disease) Diabetes mellitus HIV (human immunodeficiency virus infection) HTN (hypertension), benign Hyperlipemia Pancreatitis Ulcerative colitis Surgical History H/O colectomy History of total left knee replacement (TKR) Hx of cholecystectomy Hx of splenectomy Status post right hip replacement Social History Alcohol intake: never Patient Tobacco Use Status: Former Tobacco user Tobacco use type: Cigarette Advance Directives: Yes Advance Directives on File: Yes Advance Directives Date on File: 06/07/21 service: No Current occupational status: disabled Meds Allergies Allergy/AdvReac Type Severity Reaction Status Date / Time ampicillin [AMPICILLIN] Allergy Mild HIVES Verified 06/07/21 12:29 aspirin [ASPIRIN] Allergy Unknown RASH Verified 06/07/21 12:29 Active Medications: Current Medications Pharmacy Consult (Consult Rx Perform Med Rec) 1 each MISCELLANE ONCE PRN PRN Reason: Consult order Home Medications Medication Instructions Recorded Confirmed Last Taken Type abacavir 600 mg-dolutegravir 50 1 tab PO DAILY 06/06/21 06/18/21 06/18/21 History mg-lamivudine 300 mg tablet (Triumeq) albuterol sulfate 90 mcg/actuation 2 puff INHALATION QID PRN 06/06/21 06/18/21 06/18/21 History aerosol inhaler amlodipine 10 mg tablet 10 mg PO DAILY 06/06/21 06/18/21 06/18/21 History buprenorphine 8 mg-naloxone 2 mg 3 film SUBLINGUAL DAILY 06/06/21 06/18/21 0 06/18/21 History sublingual film buspirone 5 mg tablet 5 mg PO TID 06/06/21 06/18/21 06/18/21 History carvedilol 12.5 mg tablet 12.5 mg PO BID 06/06/21 06/18/21 06/18/21 History cetirizine 10 mg tablet 10 mg PO DAILY PRN 06/06/21 06/18/21 06/18/21 History diclofenac sodium 1 % topical gel 2 g TOPICAL BID 06/06/21 06/18/21 06/18/21 History gabapentin 600 mg tablet 600 mg PO BID 06/06/21 06/18/21 06/18/21 History hydrochlorothiazide 12.5 mg tablet 12.5 mg PO DAILY 06/06/21 06/18/21 06/18/21 History hydromorphone 4 mg tablet 4 mg PO Q3H PRN 06/06/21 06/18/21 06/18/21 History pravastatin 40 mg tablet 40 mg PO BEDTIME 06/06/21 06/18/21 06/17/21 History sertraline 50 mg tablet 75 mg PO DAILY 06/06/21 06/18/21 06/18/21 History sitagliptin 50 mg tablet (Januvia) 50 mg PO DAILY 06/06/21 06/18/21 06/18/21 History trazodone 100 mg tablet 100 mg PO BEDTIME PRN 06/06/21 06/18/21 06/17/21 History tramadol 50 mg tablet 1 - 2 tab PO Q4-6H PRN 06/18/21 06/18/21 06/18/21 History Physical Exam Vital Signs and Narrative: Vital Signs: Last Vital Signs Temp 98.4 F 06/18/21 20:28 Pulse 80 06/18/21 20:28 Resp 14 06/18/21 20:28 BP 159/76 H 06/18/21 20:28 Pulse Ox 96 06/18/21 20:28 BMI result Body Mass Index 31.9 Gen: Appears be in no acute distress HEENT: NCAT, Moist mucosa. Pulmonary: Vesicular breath sounds, fair air entry CVS: Normal S1-S2 Abdomen: BS+, Soft, Nontender. Colostomy bag in place with brown stool Extremities: Warm well perfused; 3+ pitting edema right lower extremity; 1+ pitting edema left lower extremity; right lower extremity is swollen compared to the left lower extremity. Noted right cough tenderness on deep palpation. Neuro: Alert and awake. Grossly nonfocal Results Labs CBC and Chem 7: 06/18/21 18:07 06/18/21 18:07 Labs: Laboratory Results - last 24 hr 06/18/21 06/18/21 06/18/21 18:07 18:07 18:45 MCV 102.1 H MCH 32.6 MCHC 32.0 RDW 15.1 Plt Count 565 H D MPV 9.6 Immature Gran % (Auto) 0.2 Neut % (Auto) 57.4 Lymph % (Auto) 24.1 [place] % (Auto) 12.2 H Eos % (Auto) 5.5 H Baso % (Auto) 0.6 Lymph # (Auto) 3.1 Spencer # (Auto) 1.6 H Eos # (Auto) 0.7 H Baso # (Auto) 0.1 Abs Immat Gran (auto) 0.02 Absolute Neuts (auto) 7.3 Absolute Nucleated RBC 0.000 Nucleated RBC % (auto) 0.0 PT 12.5 INR 1.1 APTT 34.5 Anion Gap 11 L Estim Creat Clear Calc 30.2 Estimated GFR 28 POC Glucose Random Glucose 112 D Calcium 8.7 D Blood Type Antibody Screen 06/18/21 06/18/21 06/18/21 18:46 19:14 19:28 MCV MCH MCHC RDW Plt Count MPV Immature Gran % (Auto) Neut % (Auto) Lymph % (Auto) Spencer % (Auto) Eos % (Auto) Baso % (Auto) Lymph # (Auto) [place] # (Auto) Eos # (Auto) Baso # (Auto) Abs Immat Gran (auto) Absolute Neuts (auto) Absolute Nucleated RBC Nucleated RBC % (auto) PT INR APTT Anion Gap Estim Creat Clear Calc Estimated GFR POC Glucose 81 47 L* Random Glucose Calcium Blood Type O Positive Antibody Screen NEGATIVE 06/18/21 19:46 MCV MCH MCHC RDW Plt Count MPV Immature Gran % (Auto) Neut % (Auto) Lymph % (Auto) Spencer % (Auto) Eos % (Auto) Baso % (Auto) Lymph # (Auto) [place] # (Auto) Eos # (Auto) Baso # (Auto) Abs Immat Gran (auto) Absolute Neuts (auto) Absolute Nucleated RBC Nucleated RBC % (auto) PT INR APTT Anion Gap Estim Creat Clear Calc Estimated GFR POC Glucose 144 H Random Glucose Calcium Blood Type Antibody Screen Assessment and Plan (1) Acute kidney injury superimposed on CKD: Status: Acute (2) Hyperkalemia: Status: Acute Plan 71-year-old male with a past medical history of hypertension, hyperlipidemia, diabetes, CKD, opiate dependence on Suboxone, history of ulcerative colitis status post colectomy with subsequent colostomy bag, history of pancreatitis, HIV on HAART therapy, chronic hepatitis; history of left TKR, recent history of right hip replacement; also had a recent history of GI bleed secondary to gastric ulcer-off of Eliquis; anemia, presented to the hospital today with a chief complaint of abnormal labs-hyperkalemia on routine labs done as outpatient. Noted to have hyperkalemia. Admitted for further management. Hyperkalemia: No EKG changes. Continue IV fluids. Repeat levels. Monitor on telemetry. Patient asymptomatic. Likely in the setting of renal insufficiency. Acute on chronic kidney injury: Patient's baseline creatinine is around 1.5 On presentation creatinine noted to be 2.3 Avoid nephrotoxins Hold home hydrochlorothiazide Gentle IV fluids Nephrology consult Right leg swelling/calf tenderness: Venous Duplex Negative. Episode of hypoglycemia: Patient uses glucose was 47. Followed by improved to 144. Patient asymptomatic. History of diabetes: Insulin sliding scale History of opiate dependence: Patient on Suboxone. Addiction Medicine consult History of anemia: Patient's hemoglobin on presentation was 7.7. Patient baseline hemoglobin is around 8.0. Patient denies any signs of bleeding. Monitor H&H. History of HIV: Continue home triumeq History of hypertension/hyperlipidemia: Continue home medications History of neuropathy: Patient is on gabapentin dose has been reduced to 300 mg b.i.d. given renal insufficiency. Pharmacy to renally dose his home medications. DVT prophylaxis: Subcu heparin Code status: Full code Quality Stroke Does the patient have a stroke diagnosis?: No VTE Prior VTE?: No VTE Risk Level:: Medical - moderate - high VTE Device Contraindication: Treatment Not Indicated VTE Drug Contraindication: N/A - Med Ordered
[2021-06-18 20:36] LABS: COVID-19 Test Positive (Negative)
--- NOTE | 2021-06-18 20:51 | PHA.MEDREC ---
Pharmacy Consult ? Medication Reconciliation Pharmacy has completed the medication reconciliation.
[2021-06-18 21:15] VITALS: BP 165/77; PULSE 71; TEMP 36.9; O2SAT 95
[2021-06-18 21:20] LABS: Glucose, Whole Blood 72 mg/dL (60-115)
[2021-06-18 21:20] LABS: Glucose, Whole Blood 97 mg/dL (60-115)
[2021-06-18] MEDS: 0.9 % Sodium Chloride 1,000 ML 75 ML IVCONT (21:20)
[2021-06-18] MEDS: Heparin Sodium,Porcine 5,000 UNIT/ML VIAL 5000 UNIT SUBCUT (21:25)
--- NOTE | 2021-06-18 21:54 | PC.NURSE ---
pt getting u/s at this time
[2021-06-18 23:48] VITALS: BP 159/78; PULSE 65; RESP 16; O2SAT 95
[2021-06-19] VITALS (9 sets, daily range): BP systolic 141–171; BP diastolic 63–80; PULSE 58–66; RESP 12–18; TEMP 36.8–37.6; O2SAT 92–96
--- NOTE | 2021-06-19 03:19 | PC.NURSE ---
pt pain to his right leg warm swelling and painful 8/10. pt medicated with dilaudid po. pt colostomy emptied and the new appliace is holding well with no leaking.
[2021-06-19] MEDS: Heparin Sodium,Porcine 5,000 UNIT/ML VIAL 5000 UNIT SUBCUT ×3 (04:48→20:33)
[2021-06-19 06:53] LABS: MANUAL DIFF FLAG NO
[2021-06-19 06:58] LABS: Basophils Absolute Auto 0.1 X10*3/uL (0.0-0.2); Basophils Percent Auto 0.9 % (0-2); Eosinophils Absolute Auto 0.8 X10*3/uL (0.0-0.4); Eosinophils Percent Auto 6.6 % (0-4); Hematocrit 26.5 % (42.0-52.0); Hemoglobin 8.6 g/dl (14.0-18.0); Imm Gran Abs Auto 0.03 X10*3/uL (0.00-0.03); Imm Gran Pct Auto 0.3 % (0.0-0.4); Lymphocytes Absolute Auto 2.8 X10*3/uL (1.2-4.9); Lymphocytes Percent Auto 23.1 % (20-40); Mean Corpuscular HGB Conc 32.5 g/dl (31.0-36.0); Mean Corpuscular Hemoglobin 32.7 pg (27.0-33.0); Mean Corpuscular Volume 100.8 fL (80.0-98.0); Mean Platelet Volume 10.5 fL (9.4-12.4); Monocytes Absolute Auto 1.2 X10*3/uL (0.1-1.2); Monocytes Percent Auto 10.3 % (2-11); Neutrophils Percent Auto 58.8 % (45-73); Platelet Count 628 X10*3/uL (160-400); Red Blood Count 2.63 X10*6/uL (4.60-5.80); Red Cell Distribution Width 14.8 % (11.0-16.0); White Blood Count 11.9 X10*3/uL (4.8-10.8)
[2021-06-19 07:14] LABS: Glucose, Whole Blood 104 mg/dL (60-115)
[2021-06-19] MEDS: Omeprazole 40 MG CAPSULE.DR PO ×2 (07:19→20:33)
[2021-06-19] MEDS: amLODIPine Besylate 10 MG TABLET PO (07:19)
[2021-06-19] MEDS: Sertraline HCL 25 MG TABLET 75 MG PO (07:20)
[2021-06-19] MEDS: Gabapentin 600 MG TABLET 300 MG PO ×2 (07:20→20:33)
[2021-06-19] MEDS: carvediloL 12.5 MG TABLET PO ×2 (07:20→20:32)
[2021-06-19 07:21] LABS: Anion Gap 13 (12-20); Blood Urea Nitrogen 23 mg/dL (9-16); Calcium 9.2 mg/dL (8.4-10.2); Carbon Dioxide 24 mmol/L (22-29); Chloride 106 mmol/L (96-108); Creatinine Clr Calc Pharmacy 39.5; Estimated Glomerular Filt Rate 38; Glucose Random 118 mg/dL (60-115); Potassium 5.4 mmol/L (3.3-5.1); Sodium 138 mmol/L (135-145)
[2021-06-19] MEDS: busPIRone HCl 5 MG TABLET PO ×3 (07:32→20:32)
[2021-06-19] MEDS: Dolutegravir Sodium 50 MG TABLET PO (07:32)
[2021-06-19] MEDS: lamiVUDine 150 MG TABLET 300 MG PO (07:32)
[2021-06-19] MEDS: Buprenorphine/Naloxone 8/2 mg FILM 3 FILM SUBLINGUAL (09:58)
[2021-06-19] MEDS: 0.9 % Sodium Chloride 1,000 ML 75 ML IVCONT ×2 (09:59→20:35)
--- NOTE | 2021-06-19 10:23 | PM.PNNEP ---
Subjective Subjective Date of Service: 06/19/21 Principal diagnosis: Patient seen and examined Physical Exam Vital Signs: Vital Signs: Last Vital Signs Temp 98.2 F 06/19/21 10:16 Pulse 64 06/19/21 10:16 Resp 12 06/19/21 10:16 BP 156/73 H 06/19/21 10:16 Pulse Ox 95 06/19/21 10:16 BMI result Body Mass Index 31.9 Objective Data Labs CBC & Chem 7: 06/19/21 06:35 06/19/21 06:35 Labs: Laboratory Results - last 24 hr 06/18/21 06/18/21 06/18/21 18:07 18:07 18:45 WBC 12.8 H RBC 2.36 L Hgb 7.7 L Hct 24.1 L MCV 102.1 H MCH 32.6 MCHC 32.0 RDW 15.1 Plt Count 565 H D MPV 9.6 Immature Gran % (Auto) 0.2 Neut % (Auto) 57.4 Lymph % (Auto) 24.1 [place] % (Auto) 12.2 H Eos % (Auto) 5.5 H Baso % (Auto) 0.6 Lymph # (Auto) 3.1 [place] # (Auto) 1.6 H Eos # (Auto) 0.7 H Baso # (Auto) 0.1 Abs Immat Gran (auto) 0.02 Absolute Neuts (auto) 7.3 Absolute Nucleated RBC 0.000 Nucleated RBC % (auto) 0.0 PT 12.5 INR 1.1 APTT 34.5 Sodium 137 Potassium 5.9 H D Chloride 107 Carbon Dioxide 25 Anion Gap 11 L BUN 32 H D Creatinine 2.32 H Estim Creat Clear Calc 30.2 Estimated GFR 28 POC Glucose Random Glucose 112 D Calcium 8.7 D COVID-19 (RAYNA) COVID-19 Clin Com Blood Type Antibody Screen 06/18/21 06/18/21 06/18/21 18:46 19:14 19:28 WBC RBC Hgb Hct MCV MCH MCHC RDW Plt Count MPV Immature Gran % (Auto) Neut % (Auto) Lymph % (Auto) [place] % (Auto) Eos % (Auto) Baso % (Auto) Lymph # (Auto) [place] # (Auto) Eos # (Auto) Baso # (Auto) Abs Immat Gran (auto) Absolute Neuts (auto) Absolute Nucleated RBC Nucleated RBC % (auto) PT INR APTT Sodium Potassium Chloride Carbon Dioxide Anion Gap BUN Creatinine Estim Creat Clear Calc Estimated GFR POC Glucose 81 47 L* Random Glucose Calcium COVID-19 (RAYNA) COVID-i'mma Com Blood Type O Positive Antibody Screen NEGATIVE 06/18/21 06/18/21 06/18/21 19:46 20:00 20:25 WBC RBC Hgb Hct MCV MCH MCHC RDW Plt Count MPV Immature Gran % (Auto) Neut % (Auto) Lymph % (Auto) [place] % (Auto) Eos % (Auto) Baso % (Auto) Lymph # (Auto) [place] # (Auto) Eos # (Auto) Baso # (Auto) Abs Immat Gran (auto) Absolute Neuts (auto) Absolute Nucleated RBC Nucleated RBC % (auto) PT INR APTT Sodium Potassium Chloride Carbon Dioxide Anion Gap BUN Creatinine Estim Creat Clear Calc Estimated GFR POC Glucose 144 H 72 Random Glucose Calcium COVID-19 (RAYNA) Positive A [employer] See Note Blood Type Antibody Screen 06/18/21 06/19/21 06/19/21 21:14 06:35 06:35 WBC 11.9 H RBC 2.63 L Hgb 8.6 L Hct 26.5 L MCV 100.8 H MCH 32.7 MCHC 32.5 RDW 14.8 Plt Count 628 H MPV 10.5 Immature Gran % (Auto) 0.3 Neut % (Auto) 58.8 Lymph % (Auto) 23.1 [place] % (Auto) 10.3 Eos % (Auto) 6.6 H Baso % (Auto) 0.9 Lymph # (Auto) 2.8 [place] # (Auto) 1.2 Eos # (Auto) 0.8 H Baso # (Auto) 0.1 Abs Immat Gran (auto) 0.03 Absolute Neuts (auto) 7.0 Absolute Nucleated RBC 0.000 Nucleated RBC % (auto) 0.0 PT INR APTT Sodium 138 Potassium 5.4 H Chloride 106 Carbon Dioxide 24 Anion Gap 13 BUN 23 H Creatinine 1.77 H Estim Creat Clear Calc 39.5 Estimated GFR 38 POC Glucose 97 Random Glucose 118 H Calcium 9.2 COVID-19 (RAYNA) [employer] Blood Type Antibody Screen 06/19/21 07:09 WBC RBC Hgb Hct MCV MCH MCHC RDW Plt Count MPV Immature Gran % (Auto) Neut % (Auto) Lymph % (Auto) [place] % (Auto) Eos % (Auto) Baso % (Auto) Lymph # (Auto) [place] # (Auto) Eos # (Auto) Baso # (Auto) Abs Immat Gran (auto) Absolute Neuts (auto) Absolute Nucleated RBC Nucleated RBC % (auto) PT INR APTT Sodium Potassium Chloride Carbon Dioxide Anion Gap BUN Creatinine Estim Creat Clear Calc Estimated GFR POC Glucose 104 Random Glucose Calcium COVID-19 (RAYNA) COVID-19 Clin Com Blood Type Antibody Screen Procedures Date of Service Date of Service: 06/19/21 Assessment & Plan Assessment and plan (1) MARY JO (acute kidney injury): Status: Acute (2) Hyperkalemia: Status: Acute Plan MARY JO due to renal hypopefusion normal baseline kidney function kidney function should improve with presybeterian of isovolemia elevated serum potassium due to decreased distal flow and thrombocytosis REC urine sodium plasma potassium IVF follow kidney function and electrolytes Thank you Time Spent With Patient Time: Total time spent is greater than 50% in coordination of care (as documented) at patient's floor/unit and/or counseling patient: Progress Note: Quality Stroke Does the patient have a stroke diagnosis?: No
--- NOTE | 2021-06-19 10:25 | HO.PM.IMPN ---
Subjective Subjective Date of Service: 06/19/21 Interval History: cc: sent in for outpatient K of 5.9 interval history: no complaints Cardiovascular Cardiovascular: Reports no additional cardiovascular complaints Respiratory Respiratory: Reports no additional respiratory complaints Physical Exam Vital Signs: Vital Signs: Last Vital Signs Temp 98.2 F 06/19/21 10:16 Pulse 64 06/19/21 10:16 Resp 12 06/19/21 10:16 BP 156/73 H 06/19/21 10:16 Pulse Ox 95 06/19/21 10:16 BMI result Body Mass Index 31.9 General: AO X 3, no acute distress Resp: CTA bilateral, no accessory muscles used CVS: S1,S2,RRR GI: soft, non tender, non distended Neuro: motor grossly intact, alert Psych: appropriate affect, appropriate insight Objective Data Active Medications Abacavir Sulfate (Abacavir Sulfate 300 Mg Tablet) 600 mg PO DAILY [facility] Last Admin: 06/19/21 07:32 Dose: 600 mg Documented by: NICK Acetaminophen (Acetaminophen 325 Mg Tablet) 650 mg PO Q6H PRN PRN Reason: Pain, Mild (Pain Scale 1-3) Albuterol Sulfate (Albuterol Sulfate 90 Mcg 8 Gm Inhaler) 2 puff INHALE QID PRN PRN Reason: Respiratory Distress Amlodipine Besylate (Amlodipine Besylate 10 Mg Tablet) 10 mg PO DAILY [facility]; Protocol Last Admin: 06/19/21 07:19 Dose: 10 mg Documented by: NICK Buprenorphine/Naloxone (Buprenorphine/Naloxone 8/2 Mg Film) 3 film SUBLINGUAL DAILY [facility] Last Admin: 06/19/21 09:58 Dose: 3 film Documented by: AMELIA Buspirone HCl (Buspirone Hcl 5 Mg Tablet) 5 mg PO TID [facility] Last Admin: 06/19/21 07:32 Dose: 5 mg Documented by: NICK Carvedilol (Carvedilol 12.5 Mg Tablet) 12.5 mg PO BID [facility]; Protocol Last Admin: 06/19/21 07:20 Dose: 12.5 mg Documented by: NICK Dextrose (Dextrose 50 % 25 Gm/50 Ml Syringe) 25 gm IVPUSH Q15M PRN; Protocol PRN Reason: per Hypoglycemia Standing Ord. Dolutegravir Sodium (Dolutegravir Sodium 50 Mg Tablet) 50 mg PO DAILY [facility] Last Admin: 06/19/21 07:32 Dose: 50 mg Documented by: NICK Gabapentin (Gabapentin 600 Mg Tablet) 300 mg PO BID [facility] Last Admin: 06/19/21 07:20 Dose: 300 mg Documented by: NICK Glucose (Glucose Gel 15 Gm Gel..Gram.) 15 gm PO Q15M PRN; Protocol PRN Reason: per Hypoglycemia Standing Ord. Heparin Sodium (Porcine) (Heparin Sodium,Porcine 5,000 Unit/Ml Vial) 5,000 unit SUBCUT Q8H [facility] Last Admin: 06/19/21 04:48 Dose: 5,000 unit Documented by: MCTA Hydromorphone HCl (Hydromorphone Hcl 4 Mg Tablet) 4 mg PO Q3H PRN PRN Reason: Pain (Scale Score 4-6) Last Admin: 06/19/21 07:21 Dose: 4 mg Documented by: NICK Sodium Chloride (Ns) 1,000 mls @ 75 mls/hr IVCONT .[id number] [facility] Last Admin: 06/19/21 09:59 Dose: 75 mls/hr Documented by: AMELIA Insulin Human Lispro (Insulin Lispro 100 Unit/Ml 3 Ml Vial) 0 unit SUBCUT QIDACHS [facility]; Protocol Last Admin: 06/19/21 07:13 Dose: Not Given Documented by: NICK Non-Admin Reason: No Insulin Coverage Lamivudine (Lamivudine 150 Mg Tablet) 300 mg PO DAILY [facility] Last Admin: 06/19/21 07:32 Dose: 300 mg Documented by: NICK Melatonin (Melatonin 3 Mg Tablet) 6 mg PO BEDTIME PRN PRN Reason: Insomnia Omeprazole (Omeprazole 40 Mg Capsule.Dr) 40 mg PO BID [facility] Last Admin: 06/19/21 07:19 Dose: 40 mg Documented by: NICK Pharmacy Consult (Consult Rx Perform Med Rec) 1 each MISCELLANE ONCE PRN PRN Reason: Consult order Pravastatin Sodium (Pravastatin Sodium 40 Mg Tablet) 40 mg PO BEDTIME [facility] Senna (Sennosides 8.6 Mg Tablet) 17.2 mg PO BEDTIME PRN PRN Reason: Constipation Sertraline HCl (Sertraline Hcl 25 Mg Tablet) 75 mg PO DAILY [facility] Last Admin: 06/19/21 07:20 Dose: 75 mg Documented by: NICK Sodium Chloride (0.9 % Sodium Chloride Flush 3 Ml Syringe) 3 ml IVFLUSH QSHIFT [facility] Last Admin: 06/19/21 07:13 Dose: Not Given Documented by: NICK Non-Admin Reason: Med Not Available Trazodone HCl (Trazodone Hcl 100 Mg Tablet) 100 mg PO BEDTIME PRN PRN Reason: Sleep Labs CBC & Chem 7: 06/19/21 06:35 06/19/21 06:35 Labs: Laboratory Results - last 24 hr 06/18/21 06/18/21 06/18/21 18:07 18:07 18:45 MCV 102.1 H MCH 32.6 MCHC 32.0 RDW 15.1 Plt Count 565 H D MPV 9.6 Immature Gran % (Auto) 0.2 Neut % (Auto) 57.4 Lymph % (Auto) 24.1 [place] % (Auto) 12.2 H Eos % (Auto) 5.5 H Baso % (Auto) 0.6 Lymph # (Auto) 3.1 [place] # (Auto) 1.6 H Eos # (Auto) 0.7 H Baso # (Auto) 0.1 Abs Immat Gran (auto) 0.02 Absolute Neuts (auto) 7.3 Absolute Nucleated RBC 0.000 Nucleated RBC % (auto) 0.0 PT 12.5 INR 1.1 APTT 34.5 Anion Gap 11 L Estim Creat Clear Calc 30.2 Estimated GFR 28 POC Glucose Random Glucose 112 D Calcium 8.7 D COVID-19 (RAYNA) COVID-Zoomaal Com Blood Type Antibody Screen 06/18/21 06/18/21 06/18/21 18:46 19:14 19:28 MCV MCH MCHC RDW Plt Count MPV Immature Gran % (Auto) Neut % (Auto) Lymph % (Auto) [place] % (Auto) Eos % (Auto) Baso % (Auto) Lymph # (Auto) [place] # (Auto) Eos # (Auto) Baso # (Auto) Abs Immat Gran (auto) Absolute Neuts (auto) Absolute Nucleated RBC Nucleated RBC % (auto) PT INR APTT Anion Gap Estim Creat Clear Calc Estimated GFR POC Glucose 81 47 L* Random Glucose Calcium COVID-19 (RAYNA) COVID-Zoomaal Com Blood Type O Positive Antibody Screen NEGATIVE 0206/18/21 06/18/21 19:46 20:00 20:25 MCV MCH MCHC RDW Plt Count MPV Immature Gran % (Auto) Neut % (Auto) Lymph % (Auto) [place] % (Auto) Eos % (Auto) Baso % (Auto) Lymph # (Auto) [place] # (Auto) Eos # (Auto) Baso # (Auto) Abs Immat Gran (auto) Absolute Neuts (auto) Absolute Nucleated RBC Nucleated RBC % (auto) PT INR APTT Anion Gap Estim Creat Clear Calc Estimated GFR POC Glucose 144 H 72 Random Glucose Calcium COVID-19 (RAYNA) Positive A COVID-19 Clin Com See Note Blood Type Antibody Screen 06/18/21 06/19/21 06/19/21 21:14 06:35 06:35 MCV 100.8 H MCH 32.7 MCHC 32.5 RDW 14.8 Plt Count 628 H MPV 10.5 Immature Gran % (Auto) 0.3 Neut % (Auto) 58.8 Lymph % (Auto) 23.1 [place] % (Auto) 10.3 Eos % (Auto) 6.6 H Baso % (Auto) 0.9 Lymph # (Auto) 2.8 [place] # (Auto) 1.2 Eos # (Auto) 0.8 H Baso # (Auto) 0.1 Abs Immat Gran (auto) 0.03 Absolute Neuts (auto) 7.0 Absolute Nucleated RBC 0.000 Nucleated RBC % (auto) 0.0 PT INR APTT Anion Gap 13 Estim Creat Clear Calc 39.5 Estimated GFR 38 POC Glucose 97 Random Glucose 118 H Calcium 9.2 COVID-19 (RAYNA) COVID-Zoomaal Com Blood Type Antibody Screen 06/19/21 07:09 MCV MCH MCHC RDW Plt Count MPV Immature Gran % (Auto) Neut % (Auto) Lymph % (Auto) [place] % (Auto) Eos % (Auto) Baso % (Auto) Lymph # (Auto) [place] # (Auto) Eos # (Auto) Baso # (Auto) Abs Immat Gran (auto) Absolute Neuts (auto) Absolute Nucleated RBC Nucleated RBC % (auto) PT INR APTT Anion Gap Estim Creat Clear Calc Estimated GFR POC Glucose 104 Random Glucose Calcium COVID-19 (RAYNA) COVID-erento Clin Com Blood Type Antibody Screen Assessment and Plan (1) MARY JO (acute kidney injury): Status: Acute Plan 71M sent in for hyperkalemia 5.9 and mary jo on CKDIII hyperkalemia now 5.4, nephro eval, monitor MARY JO on CKDIII now close to baseline covid 19 incidental on admission screen asymptomatic, monitor HIV continue HAART recent gi bleed, duodenal ulcer ppi opiate dependence suboxone Quality Stroke Does the patient have a stroke diagnosis?: No VTE Prior VTE?: No VTE Risk Level:: Medical - moderate - high VTE Device Contraindication: Treatment Not Indicated VTE Drug Contraindication: N/A - Med Ordered
[2021-06-19 12:16] LABS: Glucose, Whole Blood 84 mg/dL (60-115)
--- NOTE | 2021-06-19 13:18 | MHC.CM.PN ---
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
[2021-06-19 17:00] LABS: Glucose, Whole Blood 109 mg/dL (60-115)
[2021-06-19 19:45] LABS: Glucose, Whole Blood 125 mg/dL (60-115)
[2021-06-19] MEDS: Pravastatin Sodium 40 MG TABLET PO (20:32)
[2021-06-19] MEDS: traZODone HCL 100 MG TABLET PO (20:51)
[2021-06-20 03:45] VITALS: BP 170/77; PULSE 54; RESP 18; TEMP 37.6; O2SAT 95
[2021-06-20] MEDS: Heparin Sodium,Porcine 5,000 UNIT/ML VIAL 5000 UNIT SUBCUT ×3 (06:08→20:40)
[2021-06-20 06:51] LABS: Hematocrit 27.2 % (42.0-52.0); Hemoglobin 8.7 g/dl (14.0-18.0); Mean Corpuscular Hemoglobin 32.5 pg (27.0-33.0); Mean Corpuscular Volume 101.5 fL (80.0-98.0); Mean Platelet Volume 10.6 fL (9.4-12.4); Platelet Count 631 X10*3/uL (160-400); Red Blood Count 2.68 X10*6/uL (4.60-5.80); Red Cell Distribution Width 14.9 % (11.0-16.0)
[2021-06-20 06:56] LABS: Anion Gap 14 (12-20); Blood Urea Nitrogen 20 mg/dL (9-16); Calcium 8.9 mg/dL (8.4-10.2); Carbon Dioxide 23 mmol/L (22-29); Chloride 108 mmol/L (96-108); Creatinine Clr Calc Pharmacy 42.2; Estimated Glomerular Filt Rate 41; Glucose Fasting 100 mg/dL (60-99); Sodium 140 mmol/L (135-145)
[2021-06-20 08:00] VITALS: BP 175/74; PULSE 61; RESP 20; TEMP 36.9; O2SAT 94
[2021-06-20 08:06] LABS: Glucose, Whole Blood 118 mg/dL (60-115)
[2021-06-20] MEDS: 0.9 % Sodium Chloride 1,000 ML 75 ML IVCONT ×2 (08:21→20:42)
[2021-06-20] MEDS: 0.9 % Sodium Chloride Flush 3 ML SYRINGE IVFLUSH ×2 (08:24→16:22)
[2021-06-20 09:07] LABS: Folate 12.8 ng/mL (> or = 4.0); Vitamin B12 1288 pg/mL (200-900)
[2021-06-20] MEDS: Buprenorphine/Naloxone 8/2 mg FILM 3 FILM SUBLINGUAL (10:00)
[2021-06-20] MEDS: lamiVUDine 150 MG TABLET 300 MG PO (10:00)
[2021-06-20] MEDS: amLODIPine Besylate 10 MG TABLET PO (10:01)
[2021-06-20] MEDS: Dolutegravir Sodium 50 MG TABLET PO (10:02)
[2021-06-20] MEDS: Gabapentin 600 MG TABLET 300 MG PO ×2 (10:02→20:40)
[2021-06-20] MEDS: Omeprazole 40 MG CAPSULE.DR PO ×2 (10:02→20:39)
[2021-06-20] MEDS: busPIRone HCl 5 MG TABLET PO ×3 (10:02→20:40)
[2021-06-20] MEDS: carvediloL 12.5 MG TABLET PO ×2 (10:02→20:39)
[2021-06-20] MEDS: Sertraline HCL 25 MG TABLET 75 MG PO (10:03)
--- NOTE | 2021-06-20 10:25 | PM.PNNEP ---
Subjective Subjective Date of Service: 06/20/21 Principal diagnosis: Patient seen and examined Interval history: seen and examined no complaints Physical Exam Vital Signs: Vital Signs: Last Vital Signs Temp 98.4 F 06/20/21 08:00 Pulse 61 06/20/21 08:00 Resp 20 06/20/21 08:00 BP 175/74 H 06/20/21 08:00 Pulse Ox 94 06/20/21 08:00 BMI result Body Mass Index 31.9 Const: General: alert and awake HENMT: Head: Yes normocephalic and Yes atraumatic Neck: Neck: Yes supple Resp: Auscultation: diminished lung sounds Cardio: Heart sounds: S1 normal heart sound present and S2 normal heart sound present GI: Palpation (GI): Soft to palpation and nontender Extrem: General: No edema Objective Data Labs CBC & Chem 7: 06/20/21 06:03 06/20/21 06:03 Labs: Laboratory Results - last 24 hr 06/18/21 06/19/21 06/19/21 18:07 12:12 16:52 WBC RBC Hgb Hct MCV MCH MCHC RDW Plt Count MPV Absolute Nucleated RBC Nucleated RBC % (auto) Sodium Potassium Chloride Carbon Dioxide Anion Gap BUN Creatinine Estim Creat Clear Calc Estimated GFR POC Glucose 84 109 Fasting Glucose Calcium Vitamin B12 1288 H Folate 12.8 06/19/21 06/20/21 06/20/21 19:12 06:03 06:03 WBC 12.0 H RBC 2.68 L Hgb 8.7 L Hct 27.2 L MCV 101.5 H MCH 32.5 MCHC 32.0 RDW 14.9 Plt Count 631 H MPV 10.6 Absolute Nucleated RBC 0.000 Nucleated RBC % (auto) 0.0 Sodium 140 Potassium 5.0 Chloride 108 Carbon Dioxide 23 Anion Gap 14 BUN 20 H Creatinine 1.66 H Estim Creat Clear Calc 42.2 Estimated GFR 41 POC Glucose 125 H Fasting Glucose 100 H Calcium 8.9 Vitamin B12 Folate 06/20/21 08:02 WBC RBC Hgb Hct MCV MCH MCHC RDW Plt Count MPV Absolute Nucleated RBC Nucleated RBC % (auto) Sodium Potassium Chloride Carbon Dioxide Anion Gap BUN Creatinine Estim Creat Clear Calc Estimated GFR POC Glucose 118 H Fasting Glucose Calcium Vitamin B12 Folate Procedures Date of Service Date of Service: 06/20/21 Assessment & Plan Assessment and plan (1) MARY JO (acute kidney injury): Status: Acute (2) Hyperkalemia: Status: Acute Plan Scr better MARY JO due to renal hypopefusion normal baseline kidney function elevated serum potassium due to decreased distal flow and thrombocytosis REC IVF follow kidney function and electrolytes Time Spent With Patient Time: Total time spent is greater than 50% in coordination of care (as documented) at patient's floor/unit and/or counseling patient: Progress Note: Quality Stroke Does the patient have a stroke diagnosis?: No
--- NOTE | 2021-06-20 10:43 | P.PNIM_ITS ---
Subjective Subjective Date of Service: 06/20/21 Interval History: cc: sent in for outpatient K of 5.9 interval history: no complaints Cardiovascular Cardiovascular: Reports no additional cardiovascular complaints Respiratory Respiratory: Reports no additional respiratory complaints Physical Exam Vital Signs: Vital Signs: Last Vital Signs Temp 98.4 F 06/20/21 08:00 Pulse 61 06/20/21 08:00 Resp 20 06/20/21 08:00 BP 175/74 H 06/20/21 08:00 Pulse Ox 94 06/20/21 08:00 BMI result Body Mass Index 31.9 General: AO X 3, no acute distress Resp: CTA bilateral, no accessory muscles used CVS: S1,S2,RRR GI: soft, non tender, non distended Neuro: motor grossly intact, alert Psych: appropriate affect, appropriate insight Objective Data Active Medications Abacavir Sulfate (Abacavir Sulfate 300 Mg Tablet) 600 mg PO DAILY [facility] Last Admin: 06/20/21 10:01 Dose: 600 mg Documented by: ERIC Acetaminophen (Acetaminophen 325 Mg Tablet) 650 mg PO Q6H PRN PRN Reason: Pain, Mild (Pain Scale 1-3) Albuterol Sulfate (Albuterol Sulfate 90 Mcg 8 Gm Inhaler) 2 puff INHALE QID PRN PRN Reason: Respiratory Distress Amlodipine Besylate (Amlodipine Besylate 10 Mg Tablet) 10 mg PO DAILY [facility]; Protocol Last Admin: 06/20/21 10:01 Dose: 10 mg Documented by: ERIC Buprenorphine/Naloxone (Buprenorphine/Naloxone 8/2 Mg Film) 3 film SUBLINGUAL DAILY [facility] Last Admin: 06/20/21 10:00 Dose: 3 film Documented by: ERIC Buspirone HCl (Buspirone Hcl 5 Mg Tablet) 5 mg PO TID [facility] Last Admin: 06/20/21 10:02 Dose: 5 mg Documented by: ERIC Carvedilol (Carvedilol 12.5 Mg Tablet) 12.5 mg PO BID [facility]; Protocol Last Admin: 06/20/21 10:02 Dose: 12.5 mg Documented by: ERIC Dextrose (Dextrose 50 % 25 Gm/50 Ml Syringe) 25 gm IVPUSH Q15M PRN; Protocol PRN Reason: per Hypoglycemia Standing Ord. Dolutegravir Sodium (Dolutegravir Sodium 50 Mg Tablet) 50 mg PO DAILY [facility] Last Admin: 06/20/21 10:02 Dose: 50 mg Documented by: ERIC Gabapentin (Gabapentin 600 Mg Tablet) 300 mg PO BID [facility] Last Admin: 06/20/21 10:02 Dose: 300 mg Documented by: ERIC Glucose (Glucose Gel 15 Gm Gel..Gram.) 15 gm PO Q15M PRN; Protocol PRN Reason: per Hypoglycemia Standing Ord. Heparin Sodium (Porcine) (Heparin Sodium,Porcine 5,000 Unit/Ml Vial) 5,000 unit SUBCUT Q8H [facility] Last Admin: 06/20/21 06:08 Dose: 5,000 unit Documented by: ANNA Hydromorphone HCl (Hydromorphone Hcl 4 Mg Tablet) 4 mg PO Q3H PRN PRN Reason: Pain (Scale Score 4-6) Last Admin: 06/20/21 06:18 Dose: 4 mg Documented by: ANNA Sodium Chloride (Ns) 1,000 mls @ 75 mls/hr IVCONT .[id number] [facility] Last Admin: 06/20/21 08:21 Dose: 75 mls/hr Documented by: ERIC Insulin Human Lispro (Insulin Lispro 100 Unit/Ml 3 Ml Vial) 0 unit SUBCUT QIDACHS [facility]; Protocol Last Admin: 06/20/21 08:13 Dose: Not Given Documented by: ERIC Non-Admin Reason: No Insulin Coverage Lamivudine (Lamivudine 150 Mg Tablet) 300 mg PO DAILY [facility] Last Admin: 06/20/21 10:00 Dose: 300 mg Documented by: ERIC Melatonin (Melatonin 3 Mg Tablet) 6 mg PO BEDTIME PRN PRN Reason: Insomnia Omeprazole (Omeprazole 40 Mg Capsule.) 40 mg PO BID [facility] Last Admin: 06/20/21 10:02 Dose: 40 mg Documented by: ERIC Pharmacy Consult (Consult Rx Perform Med Rec) 1 each MISCELLANE ONCE PRN PRN Reason: Consult order Pravastatin Sodium (Pravastatin Sodium 40 Mg Tablet) 40 mg PO BEDTIME [facility] Last Admin: 06/19/21 20:32 Dose: 40 mg Documented by: ROBBI Senna (Sennosides 8.6 Mg Tablet) 17.2 mg PO BEDTIME PRN PRN Reason: Constipation Sertraline HCl (Sertraline Hcl 25 Mg Tablet) 75 mg PO DAILY [facility] Last Admin: 06/20/21 10:03 Dose: 75 mg Documented by: ERIC Sodium Chloride (0.9 % Sodium Chloride Flush 3 Ml Syringe) 3 ml IVFLUSH QSHIFT [facility] Last Admin: 06/20/21 08:24 Dose: 3 ml Documented by: ERIC Trazodone HCl (Trazodone Hcl 100 Mg Tablet) 100 mg PO BEDTIME PRN PRN Reason: Sleep Last Admin: 06/19/21 20:51 Dose: 100 mg Documented by: ROBBI Labs CBC & Chem 7: 06/20/21 06:03 06/20/21 06:03 Labs: Laboratory Results - last 24 hr 06/18/21 06/19/21 06/19/21 18:07 12:12 16:52 MCV MCH MCHC RDW Plt Count MPV Absolute Nucleated RBC Nucleated RBC % (auto) Anion Gap Estim Creat Clear Calc Estimated GFR POC Glucose 84 109 Fasting Glucose Calcium Vitamin B12 1288 H Folate 12.8 06/19/21 06/20/21 06/20/21 19:12 06:03 06:03 MCV 101.5 H MCH 32.5 MCHC 32.0 RDW 14.9 Plt Count 631 H MPV 10.6 Absolute Nucleated RBC 0.000 Nucleated RBC % (auto) 0.0 Anion Gap 14 Estim Creat Clear Calc 42.2 Estimated GFR 41 POC Glucose 125 H Fasting Glucose 100 H Calcium 8.9 Vitamin B12 Folate 06/20/21 08:02 MCV MCH MCHC RDW Plt Count MPV Absolute Nucleated RBC Nucleated RBC % (auto) Anion Gap Estim Creat Clear Calc Estimated GFR POC Glucose 118 H Fasting Glucose Calcium Vitamin B12 Folate Assessment and Plan (1) MARY JO (acute kidney injury): Status: Acute Plan 71M sent in for hyperkalemia 5.9 and mary jo on CKDIII hyperkalemia partially true, partialy pseudohypokalemia from thrombocytosis now 5, nephro appreciated MARY JO baseline creatinine around 1 continue ivf, monitor covid 19 incidental on admission screen asymptomatic, monitor HIV continue HAART recent gi bleed, duodenal ulcer ppi opiate dependence suboxone Quality Stroke Does the patient have a stroke diagnosis?: No VTE Prior VTE?: No VTE Risk Level:: Medical - moderate - high VTE Device Contraindication: Treatment Not Indicated VTE Drug Contraindication: N/A - Med Ordered
[2021-06-20 11:20] VITALS: BP 139/63; PULSE 58; RESP 20; TEMP 36.9; O2SAT 94
[2021-06-20 11:22] LABS: Glucose, Whole Blood 95 mg/dL (60-115)
[2021-06-20 15:39] VITALS: BP 156/70; PULSE 56; RESP 18; TEMP 37.2; O2SAT 98
[2021-06-20 15:46] LABS: Glucose, Whole Blood 78 mg/dL (60-115)
[2021-06-20 20:00] VITALS: BP 167/77; PULSE 67; RESP 18; TEMP 37.1; O2SAT 98
[2021-06-20] MEDS: Pravastatin Sodium 40 MG TABLET PO (20:40)
[2021-06-20] MEDS: traZODone HCL 100 MG TABLET PO (20:40)
[2021-06-20 20:42] LABS: Glucose, Whole Blood 87 mg/dL (60-115)
[2021-06-21] VITALS: BP 162/67; PULSE 56; RESP 20; TEMP 36.6; O2SAT 94
[2021-06-21 00:22] VITALS: BP 162/67; PULSE 56; RESP 20; TEMP 36.6; O2SAT 94
[2021-06-21 03:57] VITALS: BP 168/72; PULSE 53; RESP 18; TEMP 37; O2SAT 94
[2021-06-21] MEDS: Heparin Sodium,Porcine 5,000 UNIT/ML VIAL 5000 UNIT SUBCUT (04:42)
[2021-06-21 06:28] LABS: Hematocrit 27.7 % (42.0-52.0); Hemoglobin 8.8 g/dl (14.0-18.0); Mean Corpuscular HGB Conc 31.8 g/dl (31.0-36.0); Mean Corpuscular Hemoglobin 32.2 pg (27.0-33.0); Mean Corpuscular Volume 101.5 fL (80.0-98.0); Mean Platelet Volume 10.7 fL (9.4-12.4); Platelet Count 621 X10*3/uL (160-400); Red Blood Count 2.73 X10*6/uL (4.60-5.80); Red Cell Distribution Width 14.9 % (11.0-16.0); White Blood Count 10.9 X10*3/uL (4.8-10.8)
[2021-06-21 06:57] LABS: Anion Gap 11 (12-20); Blood Urea Nitrogen 18 mg/dL (9-16); Calcium 8.9 mg/dL (8.4-10.2); Carbon Dioxide 26 mmol/L (22-29); Chloride 108 mmol/L (96-108); Creatinine Clr Calc Pharmacy 47.6; Estimated Glomerular Filt Rate 47; Glucose Fasting 109 mg/dL (60-99); Potassium 4.8 mmol/L (3.3-5.1); Sodium 140 mmol/L (135-145)
[2021-06-21 07:24] LABS: Glucose, Whole Blood 109 mg/dL (60-115)
[2021-06-21 07:38] VITALS: BP 190/84; PULSE 52; RESP 12; TEMP 37.1; O2SAT 95
--- NOTE | 2021-06-21 08:04 | PM.PNNEP ---
Subjective Subjective Date of Service: 06/21/21 Principal diagnosis: Patient seen and examined Interval history: seen and examined no complaints Physical Exam Vital Signs: Vital Signs: Last Vital Signs Temp 98.7 F 06/21/21 07:38 Pulse 52 06/21/21 07:38 Resp 12 06/21/21 07:38 BP 190/84 H 06/21/21 07:38 Pulse Ox 95 06/21/21 07:38 BMI result Body Mass Index 31.9 Const: General: alert and awake HENMT: Head: Yes normocephalic and Yes atraumatic Neck: Neck: Yes supple Resp: Auscultation: diminished lung sounds Cardio: Heart sounds: S1 normal heart sound present and S2 normal heart sound present GI: Palpation (GI): Soft to palpation and nontender Extrem: General: No edema Objective Data Labs CBC & Chem 7: 06/21/21 05:45 06/21/21 05:45 Labs: Laboratory Results - last 24 hr 06/18/21 06/20/21 06/20/21 18:07 08:02 11:18 WBC RBC Hgb Hct MCV MCH MCHC RDW Plt Count MPV Absolute Nucleated RBC Nucleated RBC % (auto) Sodium Potassium Chloride Carbon Dioxide Anion Gap BUN Creatinine Estim Creat Clear Calc Estimated GFR POC Glucose 118 H 95 Fasting Glucose Calcium Vitamin B12 1288 H Folate 12.8 06/20/21 06/20/21 06/21/21 15:38 20:37 05:45 WBC 10.9 H RBC 2.73 L Hgb 8.8 L Hct 27.7 L MCV 101.5 H MCH 32.2 MCHC 31.8 RDW 14.9 Plt Count 621 H MPV 10.7 Absolute Nucleated RBC 0.000 Nucleated RBC % (auto) 0.0 Sodium Potassium Chloride Carbon Dioxide Anion Gap BUN Creatinine Estim Creat Clear Calc Estimated GFR POC Glucose 78 87 Fasting Glucose Calcium Vitamin B12 Folate 06/21/21 06/21/21 05:45 07:17 WBC RBC Hgb Hct MCV MCH MCHC RDW Plt Count MPV Absolute Nucleated RBC Nucleated RBC % (auto) Sodium 140 Potassium 4.8 Chloride 108 Carbon Dioxide 26 Anion Gap 11 L BUN 18 H Creatinine 1.47 H Estim Creat Clear Calc 47.6 Estimated GFR 47 POC Glucose 109 Fasting Glucose 109 H Calcium 8.9 Vitamin B12 Folate Procedures Date of Service Date of Service: 06/21/21 Assessment & Plan Assessment and plan (1) MARY JO (acute kidney injury): Status: Acute Plan kidney function improving MARY JO due to renal hypopefusion normal baseline kidney function elevated serum potassium due to decreased distal flow and thrombocytosis resolved REC discontinue IVF follow kidney function and electrolytes Time Spent With Patient Time: Total time spent is greater than 50% in coordination of care (as documented) at patient's floor/unit and/or counseling patient: Progress Note: Quality Stroke Does the patient have a stroke diagnosis?: No
[2021-06-21] MEDS: Sertraline HCL 25 MG TABLET 75 MG PO (08:07)
[2021-06-21] MEDS: Dolutegravir Sodium 50 MG TABLET PO (08:08)
[2021-06-21] MEDS: amLODIPine Besylate 10 MG TABLET PO (08:10)
[2021-06-21] MEDS: Omeprazole 40 MG CAPSULE.DR PO (08:10)
[2021-06-21] MEDS: Buprenorphine/Naloxone 8/2 mg FILM 3 FILM SUBLINGUAL (08:11)
[2021-06-21] MEDS: busPIRone HCl 5 MG TABLET PO (08:11)
[2021-06-21] MEDS: Gabapentin 600 MG TABLET 300 MG PO (08:12)
[2021-06-21] MEDS: 0.9 % Sodium Chloride Flush 3 ML SYRINGE IVFLUSH (08:12)
[2021-06-21] MEDS: carvediloL 12.5 MG TABLET PO (08:12)
[2021-06-21] MEDS: lamiVUDine 150 MG TABLET 300 MG PO (08:13)
--- NOTE | 2021-06-21 09:38 | PM.DS ---
DS: Providers Provider Date of Service: 06/21/21 Date of admission: 06/18/21 20:31 Primary care physician: Noemi Ruffin MD Consults: 06/18/21 20:31 Consult to Nephrology Routine Consulting Provider: Narciso Flores Reason for consultation: mary jo on ckd; hyperkalemia DS: Diagnosis Discharge Diagnosis (1) MARY JO (acute kidney injury): Status: Acute DS: Summary Hospital Course Hospital Course: Patient was admitted for acute kidney injury and hyperkalemia. The hyperkalemia was a mixture of 2 hyperkalemia and pseudohyperkalemia from thrombocytosis. Hyperkalemia resolved. For MARY JO he was treated with IV fluids and creatinine improved significantly. Patient was incidentally noted to have COVID-19 but is asymptomatic. He should continue isolation per CDC guidelines at home. Patient is feeling much better will be discharged home. Time Spent with Patient Time attestation: Total time spent providing and/or coordinating discharge services: Discharge coordination time: Greater than 30 minutes Quality: Stroke Does the patient have a stroke diagnosis?: No Physical Exam Vital Signs: Vital Signs: Last Vital Signs Temp 98.7 F 06/21/21 07:38 Pulse 52 06/21/21 07:38 Resp 12 06/21/21 07:38 BP 190/84 H 06/21/21 07:38 Pulse Ox 95 06/21/21 07:38 BMI result Body Mass Index 31.9 General: AO X 3, no acute distress Resp: CTA bilateral, no accessory muscles used CVS: S1,S2,RRR GI: soft, non tender, non distended Neuro: motor grossly intact, alert Psych: appropriate affect, appropriate insight DS: Data Data Completed and Pending Completed studies during hospitalization [Text1]: Procedures Excision of Stomach, Pylorus, Via Natural or Artificial Opening Endoscopic, Diagnostic (06/06/21) Introduction of Other Therapeutic Substance into Upper GI, Via Natural or Artificial Opening Endoscopic (06/06/21) Transfusion of Nonautologous Red Blood Cells into Peripheral Vein, Percutaneous Approach (06/06/21) Labs on day of discharge: Laboratory Results - last 24 hr 06/20/21 06/20/21 06/20/21 11:18 15:38 20:37 WBC RBC Hgb Hct MCV MCH MCHC RDW Plt Count MPV Absolute Nucleated RBC Nucleated RBC % (auto) Sodium Potassium Chloride Carbon Dioxide Anion Gap BUN Creatinine Estim Creat Clear Calc Estimated GFR POC Glucose 95 78 87 Fasting Glucose Calcium 06/21/21 06/21/21 06/21/21 05:45 05:45 07:17 WBC 10.9 H RBC 2.73 L Hgb 8.8 L Hct 27.7 L MCV 101.5 H MCH 32.2 MCHC 31.8 RDW 14.9 Plt Count 621 H MPV 10.7 Absolute Nucleated RBC 0.000 Nucleated RBC % (auto) 0.0 Sodium 140 Potassium 4.8 Chloride 108 Carbon Dioxide 26 Anion Gap 11 L BUN 18 H Creatinine 1.47 H Estim Creat Clear Calc 47.6 Estimated GFR 47 POC Glucose 109 Fasting Glucose 109 H Calcium 8.9 Discharge Plan Discharge Patient Disposition: Home, Self-Care Discharge Diagnosis: mary jo Referrals: Noemi Ruffin MD [Primary Care Provider] - 1 Week Discharge Medications: Continued buspirone 5 mg Tablet 5 mg PO TID 0RF gabapentin 600 mg Tablet 600 mg PO BID 0RF carvedilol 12.5 mg Tablet 12.5 mg PO BID 0RF Rx Instructions: must administer with a meal/food cetirizine 10 mg Tablet 10 mg PO DAILY PRN (Reason: Allergic Symptoms) 0RF pravastatin 40 mg Tablet 40 mg PO BEDTIME 0RF trazodone 100 mg Tablet 100 mg PO BEDTIME PRN (Reason: Sleep) 0RF amlodipine 10 mg Tablet 10 mg PO DAILY 0RF albuterol sulfate 90 mcg/actuation Hfa Aerosol Inhaler 2 puff INHALATION QID PRN (Reason: Respiratory Distress) 0RF sertraline 50 mg Tablet 75 mg PO DAILY 0RF Januvia 50 mg Tablet 50 mg PO DAILY 0RF hydrochlorothiazide 12.5 mg Tablet 12.5 mg PO DAILY 0RF Hold Instructions: hold until repeat labs in one week or you speak with PCP Triumeq 600-50-300 mg Tablet 1 tab PO DAILY 0RF hydromorphone 4 mg Tablet 4 mg PO Q3H PRN (Reason: Pain (Scale Score 4-6)) 0RF buprenorphine-naloxone 8-2 mg Film 3 film SUBLINGUAL DAILY 0RF diclofenac sodium 1 % Gel 2 g TOPICAL BID 0RF Protocol: Apply to: Apply to: PAINFUL KNEES Rx Instructions: apply to single elbow, wrist or hand; for hand includes palm/fingers/back of hand omeprazole 40 mg capsule,delayed release(DR/EC) 40 mg PO BID 30 Days Qty: 60 0RF tramadol 50 mg tablet 1 - 2 tab PO Q4-6H PRN (Reason: pain) 0RF Discharge Orders: Discharge Order (Routine); Ordered 06/21/21 Ordered By: Brady Rhodes Activity on Discharge: As tolerated Stand Alone Forms: Patient Portal Discharge page Care Plan Goals: recovery Health Concerns: covid, mary jo Plan of Treatment: follow up nephro, isolation per cdc guidelines for covid Assessment: see above
--- NOTE | 2021-06-21 09:49 | CONS_ITS ---
DATE OF SERVICE: 06/19/2021 REASON FOR CONSULTATION: I was asked to assist in management. HISTORY OF PRESENT ILLNESS: A 71-year-old patient with normal baseline kidney function, presents to the hospital because of worsening kidney function, elevated serum potassium of 3, had blood work as an outpatient. . Denies any chest pain, shortness of breath. There is no report of fever or chills. He recently had a history of GI bleed secondary to gastric ulcer. He tells me that he had been taking Aleve as of 2 weeks ago because of a recent history of hip replacement. He has had some nausea and vomiting in addition to decreased oral intake recently. PAST MEDICAL HISTORY: Remarkable for hypertension, HIV, ulcerative colitis, pancreatitis, dyslipidemia, diabetes mellitus, chronic hepatitis, chronic use of nose prescription opiate drugs. PAST SURGICAL HISTORY: Notable for notable for colectomy, total knee replacement, cholecystectomy, splenectomy, hip replacement. MEDICATIONS: Outpatient review and included 1. Tramadol. 2. Trazodone. 3. Januvia. 4. Sertraline. 5. Pravastatin. 6. Hydrochlorothiazide. 7. Gabapentin. 8. Diclofenac. 9. Carvedilol. 10. Buspirone. 11. Amlodipine. 12. Abacavir/dolutegravir/lamivudine. ALLERGIES: TO PENICILLIN AND ASPIRIN. SOCIAL HISTORY: He is an ex-smoker. FAMILY HISTORY: Negative for kidney disease. REVIEW OF SYMPTOMS: 27- negative except in history of present illness. PHYSICAL EXAMINATION: VITAL SIGNS: Blood pressure 155/75, heart rate 66, respiratory rate 16, temperature afebrile. CONSTITUTIONAL: He looks his stated age. No acute distress. NEUROLOGIC: Alert, awake, and maternal cephalic. NECK: Supple. LUNGS: Good air entry bilaterally. CARDIOVASCULAR: S1, S2. No rub. ABDOMEN: Soft, obese, nontender. EXTREMITIES: No edema. LAB: Showed a sodium 138, potassium 4.4, chloride 106, CO2 24, BUN 23, creatinine 1.77. White count 11.9, hemoglobin 8.6, platelet count 628. IMPRESSION: 1. Acute kidney injury. 2. Hyperkalemia. PLAN: The patient with acute kidney injury due to compromised kidney perfusion resulting in decreased effective circulation and disruption of the autoregulation of the kidney. There is no reason to suspect an acute interstitial injury. I doubt that he has obstructive uropathy. Kidney function should return to baseline which is normal with volume expansion. He has a mildly elevated serum potassium which is in part due to thrombocytosis which can increase the serum potassium by 0.1 mEq for each 100,000 platelet above the normal count. It will be reasonable to obtain a plasma potassium. For the time being, we will have him on IV fluid normal saline. Check his urine sodium and follow closely on his kidney function and electrolytes. Thank you for allowing me to participate in the care of this patient. Eun Bland MD GF/MODL / [id number]
[2021-06-21 11:10] LABS: Glucose, Whole Blood 142 mg/dL (60-115)
--- NOTE | 2021-06-21 11:42 | MHC.CM.PN ---
IMM 06/19/21 Male 71 DX MARY JO/CKD He is discharged home with resumption of services from [facility]. He has arranged for transportation.
[2021-06-21 12:09] VITALS: BP 117/55; PULSE 63
== END 2021-06-21 12:19 | disposition home or self-care (01) | DRG 682 ==
LOC: HO.ED 18:22 → HO.EDOVER 20:37 → HO.IMC 06-19 14:07
PROVIDERS: Admitting Provider Hospitalist; Emergency Provider Internal Medicine; PCP Internal Medicine; Visit Provider Internal Medicine
DX: N17.9 Acute kidney failure, unspecified (principal); U07.1 COVID-19; D62 Acute posthemorrhagic anemia; F11.20 Opioid dependence, uncomplicated; Z21 Asymptomatic human immunodeficiency virus [HIV] infection status; E78.5 Hyperlipidemia, unspecified; I12.9 Hypertensive chronic kidney disease with stage 1 through stage 4 chronic kidney disease, or unspecified chronic kidney disease; E87.5 Hyperkalemia; E11.22 Type 2 diabetes mellitus with diabetic chronic kidney disease; E11.649 Type 2 diabetes mellitus with hypoglycemia without coma; D75.839 Thrombocytosis, unspecified; N18.30 Chronic kidney disease, stage 3 unspecified; K26.9 Duodenal ulcer, unspecified as acute or chronic, without hemorrhage or perforation; E11.40 Type 2 diabetes mellitus with diabetic neuropathy, unspecified; Z88.6 Allergy status to analgesic agent; Z87.891 Personal history of nicotine dependence; Z79.899 Other long term (current) drug therapy
CPT/HCPCS: 36415; 71045; 80048; 82607; 82746; 82947; 85025; 85027; 85610; 85730; 86850; 86900; 86901; 87635; 93005; 93970; 96365; 96366; 96375; 96376; 99285; 99291; J0610

== ENCOUNTER 2022-12-18 05:50 | Inpatient (IN) | payer OTHER, SELFPAY ==
[2022-12-18] VITALS (10 sets, daily range): BP systolic 150–201; BP diastolic 68–92; PULSE 57–79; RESP 14–19; TEMP 36.2–37.7; O2SAT 94–98; BMI 33.4
--- NOTE | ~2022-12-18 | XR_ITS ---
EXAMINATION: XR HAND LEFT XR HAND RIGHT CLINICAL INFORMATION: Bilateral hand pain. COMPARISON: None TECHNIQUE: Right hand, 3 views Left hand, 3 views FINDINGS: Left hand: Bones are diffusely osteopenic. 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 Findings include loss of the radioscaphoid joint space with subarticular sclerosis, osteophytosis, and a well-corticated ossicle projects along the lateral aspect of the radioscaphoid joint. There is mild narrowing of capitolunate joint space. Osteophytes are present at degenerated first carpometacarpal joint. Mild osteoarthritis of the thumb metacarpophalangeal and interphalangeal joints. No erosions or periostitis. Right hand: Findings in the right hand are similar to those seen on the left. Bones are diffusely osteopenic. 4 mm of scapholunate dissociation and severe osteoarthritis of the radioscaphoid joint. There appears to be chondrocalcinosis of the triangular fibrocartilage. Midcarpal and carpometacarpal joint spaces are maintained. Osteophytes are present at degenerated first carpometacarpal joint. Small osteophytes noted at the thumb metacarpophalangeal and interphalangeal joints as well as fourth DIP joint. No erosions or periostitis. 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 * Also, osteoarthritis is noted at other joints in both hands, including [id number] osteoarthritis of bilateral first carpometacarpal joints and moderate osteoarthritis of the left DRUJ.
--- NOTE | ~2022-12-18 | XR_ITS ---
EXAMINATION: XR CHEST CLINICAL INFORMATION: NG placement confirmation COMPARISON: 06/19/2021 TECHNIQUE: Frontal view of the chest was obtained. FINDINGS: Enteric tube tip is below the diaphragm. Patchy atelectasis in the left lung base. No large effusion. No pneumothorax. Degenerative changes in the spine. XR/XR chest 1V IMPRESSION: Enteric tube tip is below the diaphragm.
--- NOTE | ~2022-12-18 | CT_ITS ---
EXAMINATION: CT ABDOMEN AND PELVIS WITHOUT CONTRAST CLINICAL INFORMATION: Recent small bowel resection. Vomiting. COMPARISON: 12/18/2022. TECHNIQUE: Multidetector volumetric imaging was performed from the superior aspect of the liver through the pubic symphysis. Sagittal and coronal reformatted images were obtained on the technologist's workstation. This CT examination was performed using dose optimization techniques as appropriate, variously including the following: *Automated exposure control *Adjustment of mA and/or kV according to patient size (this includes techniques or standardized protocols for targeted exams where dose is matched to indication/reason for exam; i.e. extremities or head) *Use of iterative reconstruction technique DLP: 1109.00 mGy-cm FINDINGS: LUNG BASES: There is atelectatic change at the lung bases associated with minimal left pleural fluid. LIVER, GALLBLADDER, AND BILIARY TREE: The liver is normal in size, shape, and attenuation. No focal hepatic lesion or biliary ductal dilatation is present. There has been a prior cholecystectomy. PANCREAS: Unremarkable. SPLEEN: Not seen. Multiple splenules are noted. ADRENAL GLANDS: Unremarkable. KIDNEYS AND URETERS: The kidneys are normal in size, shape, and attenuation. No hydronephrosis, hydroureter, or calculi seen. No perinephric stranding. BLADDER: Unremarkable. GASTROINTESTINAL TRACT: There is mild gastric distention with an air-fluid level. The duodenum is distended up to 4.6 cm and there is also proximal small bowel dilatation up to 6 cm with dilated small bowel loops extending to the level of the apparent anastomosis and decompressed small bowel distal to the anastomosis in the anterior lower abdomen. ABDOMINAL WALL: A midline surgical scar is noted with surgical clips in place. There is a right abdominal ostomy. There is postoperative infiltrative change and a minimal subcutaneous emphysema along the anterior abdominal wall. LYMPH NODES: Normal. VASCULAR: There is atherosclerotic plaque of the abdominal aorta. PELVIC VISCERA: There is minimal free fluid within the pelvis. OSSEOUS STRUCTURES: There is diffuse [id number]-[id number] disc degenerative change. A right hip prosthesis is in place. CT/CT abdomen pelvis wo IV con IMPRESSION: Distended stomach with an air-fluid levels a dilated duodenum and proximal small bowel to the level of apparent anterior lower abdominal and anastomosis with decompressed bowel beyond the anastomosis. This may be related to a partial obstruction. Correlation and follow up needed. Fleischner guidelines were followed.
--- NOTE | ~2022-12-18 | XR_ITS ---
EXAMINATION: XR ABDOMEN KUB CLINICAL INDICATION: Follow-up small bowel obstruction COMPARISON: Previous CT from yesterday TECHNIQUE: AP view of the abdomen. FINDINGS: There is a nasogastric tube projecting over the proximal stomach. There are still dilated air-filled loops of small bowel. This is similar to previous CT scan from yesterday. There is a possibility of bowel gas seen in the large bowel. There is a right lower quadrant ostomy. There are surgical clips in the right upper quadrant from previous cholecystectomy. There are degenerative changes of the spine and left hip joint. There is a right hip replacement. XR/XR KUB IMPRESSION: Dilated air-filled loops of small bowel and paucity of bowel gas in the large bowel similar to yesterday's CT scan.
--- NOTE | ~2022-12-18 | XR_ITS ---
EXAMINATION: XR CHEST CLINICAL INFORMATION: Check PICC line placement COMPARISON: Previous chest x-ray 12/18/2022 TECHNIQUE: Frontal view of the chest was obtained. FINDINGS: Left upper extremity PICC line tip projects over SVC. The cardiac and mediastinal contours are normal. The lungs are clear. No pleural effusion or pneumothorax. Bony structures are XR/XR chest 1V IMPRESSION: Left upper extremity PICC line tip projects over SVC.
--- NOTE | ~2022-12-18 | XR_ITS ---
EXAMINATION: XR HAND LEFT XR HAND RIGHT CLINICAL INFORMATION: Bilateral hand pain. COMPARISON: None TECHNIQUE: Right hand, 3 views Left hand, 3 views FINDINGS: Left hand: Bones are diffusely osteopenic. 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 Findings include loss of the radioscaphoid joint space with subarticular sclerosis, osteophytosis, and a well-corticated ossicle projects along the lateral aspect of the radioscaphoid joint. There is mild narrowing of capitolunate joint space. Osteophytes are present at degenerated first carpometacarpal joint. Mild osteoarthritis of the thumb metacarpophalangeal and interphalangeal joints. No erosions or periostitis. Right hand: Findings in the right hand are similar to those seen on the left. Bones are diffusely osteopenic. 4 mm of scapholunate dissociation and severe osteoarthritis of the radioscaphoid joint. There appears to be chondrocalcinosis of the triangular fibrocartilage. Midcarpal and carpometacarpal joint spaces are maintained. Osteophytes are present at degenerated first carpometacarpal joint. Small osteophytes noted at the thumb metacarpophalangeal and interphalangeal joints as well as fourth DIP joint. No erosions or periostitis. 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 * Also, osteoarthritis is noted at other joints in both hands, including [id number] osteoarthritis of bilateral first carpometacarpal joints and moderate osteoarthritis of the left DRUJ.
--- NOTE | ~2022-12-18 | CT_ITS ---
EXAMINATION: CT ABDOMEN AND PELVIS WITHOUT CONTRAST CLINICAL INFORMATION: Epigastric and left upper quadrant pain COMPARISON: Previous CT of the abdomen and pelvis May 2021 TECHNIQUE: Multidetector volumetric imaging was performed from the superior aspect of the liver through the pubic symphysis. Sagittal and coronal reformatted images were obtained on the technologist's workstation. This CT examination was performed using dose optimization techniques as appropriate, variously including the following: *Automated exposure control *Adjustment of mA and/or kV according to patient size (this includes techniques or standardized protocols for targeted exams where dose is matched to indication/reason for exam; i.e. extremities or head) *Use of iterative reconstruction technique DLP: 625 mGy-cm FINDINGS: LUNG BASES: The visualized lung bases are unremarkable. LIVER, GALLBLADDER, AND BILIARY TREE: The liver is normal in size, shape, and attenuation. No focal hepatic lesion or biliary ductal dilatation is present. The gallbladder has been removed. PANCREAS: Unremarkable. SPLEEN: Spleen not seen. Left upper quadrant splenules. ADRENAL GLANDS: Unremarkable. KIDNEYS AND URETERS: The kidneys are normal in size, shape, and attenuation. Small 2 mm nonobstructing stone in the lower pole of the left kidney. Kidneys are otherwise unremarkable. BLADDER: Unremarkable. GASTROINTESTINAL TRACT: Postop total colectomy and right lower quadrant ileostomy. Dilated small bowel with air-fluid levels suggestive of proximal small bowel obstruction. Appendix not seen. ABDOMINAL WALL: Redundant small bowel in the ostomy. LYMPH NODES: Normal. VASCULAR: Atherosclerotic disease. No aneurysm. PELVIC VISCERA: Not seen and may been removed. OSSEOUS STRUCTURES: Right hip replacement. Left femoral head AVN. Degenerative changes of the spine. CT/CT abdomen pelvis wo IV con IMPRESSION: Proximal small bowel obstruction. Postsurgical changes following colectomy and right lower quadrant ileostomy. Small nonobstructing left renal stone. Fleischner guidelines were followed.
[2022-12-18] MEDS: ondansetron HCL 4 MG/2 ML VIAL IVPUSH (06:11)
[2022-12-18] MEDS: 0.9 % Sodium Chloride 1,000 ML 999 ML IV ×2 (06:11→09:18)
[2022-12-18 06:20] LABS: Basophils Absolute Auto 0.1 X10*3/uL (0.0-0.2); Basophils Percent Auto 0.5 % (0-2); Eosinophils Absolute Auto 0.3 X10*3/uL (0.0-0.4); Eosinophils Percent Auto 1.5 % (0-4); Hematocrit 41.2 % (42.0-52.0); Imm Gran Abs Auto 0.06 X10*3/uL (0.00-0.03); Imm Gran Pct Auto 0.3 % (0.0-0.4); Lymphocytes Absolute Auto 3.9 X10*3/uL (1.2-4.9); Lymphocytes Percent Auto 21.1 % (20-40); MANUAL DIFF FLAG SCAN; Mean Corpuscular Hemoglobin 34.2 pg (27.0-33.0); Mean Corpuscular Volume 100.7 fL (80.0-98.0); Mean Platelet Volume 10.5 fL (9.4-12.4); Monocytes Absolute Auto 1.5 X10*3/uL (0.1-1.2); Monocytes Percent Auto 8.1 % (2-11); NRBC Pct Auto 0.2 /100WBC (0.0-0.2); Neutrophils Absolute Auto 12.8 x10*3/uL (2.0-8.3); Neutrophils Percent Auto 68.5 % (45-73); Platelet Count 348 X10*3/uL (160-400); Red Blood Count 4.09 X10*6/uL (4.60-5.80); Red Cell Distribution Width 13.7 % (11.0-16.0); SCAN SMEAR FLAG 1; White Blood Count 18.6 X10*3/uL (4.8-10.8)
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
--- OUTSIDE RECORDS SUMMARY | 2022-12-18 06:29 | XMS_ITS | Continuity of Care Document ---
Author Name Unknown Organization [facility] Address [address] [place] [address]- Care Team Providers Care Uptwist Spinner Name Role Phone Laly FERNANDEZ, Noemi Marshall Primary Care Physician [facility] Date(s): 12/03/20 - 01/02/[address] [address]- Allergies, Adverse Reactions, Alerts Substance Reaction Severity Status ampicillin Active aspirin BLEEDING Persistent Severe Active Pollen NASAL CONGESTION SNEEZING Persistent Mode rate Active NSAIDs bleeding Persistent Severe Active Immunizations Given and Recorded Vaccine Date Status Refusal Reason SARS-CoV-2 (COVID-19) mRNA BNT-162b2 vac 12/07/20 Given [...] VIS 10/03 4Result Comment: [12/07/2016] diluent LOT [id number] EXP 03/29/2018 5Result Comment: [07/18/2016] Liquid component: [id number], exp.: 05/2017 6Admin Note: VIS 12/13/2006 7Admin Note: vis 10/30/11 8Admin Note: vis [id number] 9Admin Note: done at [facility] this past march 10Admin Note: VIS GIVEN 2008- 11Admin Note: vis 11/25/06 Medications acetaminophen 500 mg oral tablet 1 tablet = 500 mg, By Mouth, 2 times a day, PRN for pain, take only if needed, # 60 tablet, 5 Refills, Maintenance, 04/17/19 10:49:00 EST, Tablet, [facility] - [place], [place] -, 172, cm, 04/17/19 9:42:00 EST, Height, 83.7, kg, 04/04/19 0:17:00 E... Start Date: 04/17/19 Stop Date: 10/14/19 Status: Ordered albuterol CFC free 90 mcg/inh inhalation aerosol 2, puffs, Inhalation, 4 times a day, PRN, # 1 each, Refills 1, Tot. Refills 1, Soft Stop, 12/07/20 11:08:00 EDT, Route to Pharmacy Electronically, [id number], [place], [place] - [id number], 172, cm, 12/07/20... Start Date: 12/07/20 Stop Date: 02/05/21 Status: Ordered Alcohol Pads See Instructions, # 50 each, Refills 11, Tot. Refills 11, Maintenance, E11.9 check BG daily, 12/05/18 7:49:59 EDT, Compound Start Date: 12/05/18 Status: Ordered amLODIPine 10 mg oral tablet 1 tablet = 10 mg, By Mouth, Daily, please note increase in dose., # 30 tablet, 5 Refills, Maintenance, 11/05/20 12:56:00 EDT, Tablet, [place], [place] - [id number], Partial fill uponpatient request if the prescription is for a schedu... Start Date: 11/05/20 Status: Ordered apixaban 2.5 mg oral tablet 1 tablet = 2.5 mg, By Mouth, 2 times a day, # 60 tablet, 0 Refills, Maintenance, 07/30/20 9:38:00 EDT, Tablet, [facility] 3, Partial fill upon patient request if the prescription is for aschedule II opioid drug., 172, cm, 07/30/20 7:29:00... Start Date: 07/30/20 Stop Date: 08/29/20 Status: Ordered azelastine 0.05% ophthalmic solution 1 [...] 07/14/19 Status: Ordered Talbert Elastic barrier strips #270748 Talbert Elastic barrier strips #[id number], See Instructions, # 1 units, Refills 11, Tot. Refills 11, Maintenance, To remove appliance at every change Dx Ulcerative Colitis, 01/31/18 11:44:17 EDT, Compound Start Date: 01/31/18 Status: Ordered busPIRone 5 mg oral tablet 1, tablet, By Mouth, 3 times a day, FOR ANXIETY., # 270 tablet, Refills 1, Tot. Refills 0, Maintenance, 10/26/20 10:29:00 EDT, Route to Pharmacy Electronically, [facility], 172, cm, 07/30/20 16:38:00 EDT, Height, 89.7, kg, 07/29/20 7:42:00 EDT, D... Start Date: 10/26/20 Status: Ordered carvedilol 12.5 mg oral tablet 12.5 mg, 1, tablet, By Mouth, 2 times a day, increase in dose, # 60 tablet, Refills 11, Tot. Refills 11, Maintenance, 10/12/20 11:48:00 EDT, Route to Pharmacy Electronically, [place], [place] - [id number], Partial fill upon patient re... Start Date: 10/12/20 Stop Date: 10/07/21 Status: Ordered cetirizine 10 mg oral tablet 1 tablet, By Mouth, Daily, PRN NEEDED for allergy, # 90 tablet, 1 Refills, Maintenance, 10/26/2109:30:00 EDT, [facility], 172, cm, 07/30/20 16:38:00 EDT, Height, 89.7, kg, 07/29/20 7:42:00 EDT, Dry Weight Start Date: 10/26/20 Status: Ordered Colace Capsule 100 mg, 1, capsule, By Mouth, 2 times a day, Hold for loose stool, Refills 0, Maintenance, 208:50:00 EST, Partial fill upon patient request if the prescription is for a schedule II opioid drug. Start Date: 04/12/20 Status: Ordered coloplast #29750 pouch coloplast #50315 pouch, See Instructions, # 20 each, Refills 11, Tot. Refills 11, Maintenance, use as needed for ostomy care. 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 Fax to Andre ([facility]), 06/25/19 12:46:00 EST, Compound Start Date: 06/25/19 Status: Ordered coloplast #32981 pouch coloplast #61292 pouch, See Instructions, # 40 each, Refills 11, Tot. Refills 11, Maintenance, use as needed for ostomy care. 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 Fax to Andre ([facility]). disp 40 coloplast pouche... Start Date: 08/05/19 Status: Ordered coloplast 17761 convex 1 piece coloplast 34439 convex 1 piece, See Instructions, # 1 box, Refills 11, Tot. Refills 11, Maintenance, use for ostomy changes Dx- uc/ileostomy, 07/25/18 11:04:40 EDT, Compound Start Date: 07/25/18 Status: Ordered coloplast bags #85235 coloplast bags #64682, See Instructions, # 20 each, Refills 11, Tot. Refills 11, Maintenance, use as needed for ostomy care Dx. ileostomy Z93.2, 07/14/19 10:56:00 EDT, Compound Start Date: 07/14/19 Status: Ordered Compression Stockings See Instructions, # 4 each, Refills 1, Tot. Refills 1, Maintenance, knee high compression hose 20-30mm 4 pair dx bilateral leg edema. R60.0 pls fax to [facility], 05/12/19 14:02:00 EST, Compound Start Date: 05/12/19 [...] A DAY maximum. WASH HANDS AFTER USE, 172, cm, 07/30/20 16:38:00 EDT,... Start Date: 11/24/20 Status: Ordered sophia seals sophia seals, See [...] refill, # 60 tablet, 11 Refills, Maintenance, 07/23/20 12:00:00 EDT, Tablet, [place], [place] - [id number], 173, cm, 07/19/20 10:52:00 EDT, Height, 86.8, kg, 04/07/20 8:07:00 EST, Dry Weight Start Date: 07/23/20 Stop Date: 07/18/21 Status: Ordered Imodium A-D 2 mg oral tablet See Instructions, PRN, 1 tab po after each loose stool, not to exceed 4 tablets in 24 hrs, # 100 tablet, Refills 1, Tot. Refills 1, Maintenance, for loose stool, 07/19/20 15:15:00 EDT, Instructions Replace Required Details, Route to Pharmacy Electroni... Start Date: 07/19/20 Status: Ordered Januvia 50 mg oral tablet 1 tablet = 50 mg, By Mouth, Daily before breakfast, for 30 days, for diabetes, # 30 tablet, 11 Refills, Hard Stop 07/18/21 12:01:00 EDT, 07/23/20 12:01:00 EDT, Tablet, [place], [place] - [id number], 173, cm, 07/19/20 10:52:00 EDT, Hei... Start Date: 07/23/20 Stop Date: 07/18/21 Status: Ordered LifeLine LifeLine, See Instructions, # 1 each, Refills 0, Tot. Refills 0, Maintenance, use to call for help in the home as directed length of need 99 B20, F32.9, F11.2 Pt address/#: [address] [place] [id number], [address]. [phone] Critical Signal... Start Date: 01/15/18 Status: Ordered [...] Date: 09/12/18 Status: Ordered No-nsting skin prep #[id number] No-nsting skin prep #[id number], See Instructions, # 1 bottle, Refills 11, Tot. Refills 11, Maintenance, Use as needed for ostomy care Dx: colostomy, 01/31/18 11:44:14 EDT, Compound Start Date: 01/31/18 Status: Ordered omeprazole 20 mg oral enteric coated capsule 1 capsule = 20 mg, By Mouth, Daily, PRN only if needed for acid reflux symptoms, # 90 capsule, 1 Refills, Maintenance, 07/23/20 12:01:00 EDT, EC Capsule, [place], [place] - [id number], 173, cm, 07/19/20 10:52:00 EDT, Height, 86.8, kg,... Start Date: 07/23/20 Status: Ordered Ostomy deodorizer liquid Ostomy deodorizer [...] EDT, Compound Start Date: 12/10/18 Status: Ordered pravastatin 40 mg oral tablet 1 tablet, By Mouth, Daily at bedtime, # 30 tablet, 11 Refills, Maintenance, 08/02/20 17:47:00 EDT, [facility], 172, cm, 07/30/20 16:38:00 EDT, Height, 89.7, kg, 07/29/20 7:42:00 EDT, Dry Weight Start Date: 08/02/20 Status: Ordered ready bath disposable WIPES ready [...] Mouth, Daily, # 45 tablet, 11 Refills, Maintenance, 06/22/20 20:22:00 EST, [facility], 173, cm, 04/12/20 11:01:00 EST, Height, 86.8, kg, 04/07/20 8:07:00 EST, Dry Weight Start Date: 06/22/20 Status: Ordered stoma powder stoma powder, See [...] mg sublingual film 2 film, Sublingual, Daily, [id number] MassPATchecked. dissolve under tongue, # 56 film, 0 Refills, Maintenance, 12/08/20 23:01:00 EDT, [facility] [id number], fill on 12/13/20-due date, 2 film Sublingual Daily,x28 days,Instr:X... Start Date: 12/08/20 Stop Date: 01/05/21 Status: Ordered traZODone 100 mg oral tablet 1, tablet, By Mouth, Daily at bedtime, PRN, # 30 tablet, Refills 11, Tot. Refills 0, Maintenance, NEEDED FOR insomnia, 07/23/20 12:03:00 EDT, Route to Pharmacy Electronically, [facility], 173, cm, 07/19/20 10:52:00 EDT, Height, 86.8, kg, 04/07... Start Date: 07/23/20 Status: Ordered Triumeq oral tablet 1 tablet, By Mouth, Daily, # 30 tablet, 11 Refills, Maintenance, 07/23/20 12:00:00 EDT, Tablet, [place], [place] - [id number], 1 tablet By Mouth Daily,x30 days, 173, cm, 07/19/20 10:52:00 EDT, Height, 86.8, kg, 04/07/20 8:07:00 EST, D... Start Date: 07/23/20 Stop Date: 07/18/21 Status: Ordered Unisolve adhesive remover #[id number] Unisolve adhesive remover #913237, See Instructions, # 1 box, Refills 11, [...] inguinal pain(Confirmed) Active 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) Active *[phone] Care Partn krysten-Jesica Jeter(Confirmed) Active traumatic splenectomy [...]
--- OUTSIDE RECORDS SUMMARY | 2022-12-18 06:29 | XMS_ITS | Continuity of Care Document ---
Author Name Unknown Organization [facility] Address [address] [place] [address]- Care Team Providers Care Bar Staff Name Role Phone Noemi Ruffin MD, I Primary Care Physician [facility]counter [facility] Date(s): 06/22/20 - 07/22/[address] [address]- Allergies, Adverse Reactions, Alerts Substance Reaction Severity [...] VIS 10/03 3Result Comment: [12/07/2016] diluent LOT [id number] EXP 03/29/2018 4Result Comment: [07/18/2016] Liquid component: [id number], exp.: 05/2017 5Admin Note: VIS 12/13/2006 6Admin Note: vis 10/30/11 7Admin Note: vis [id number] 8Admin Note: done at [facility] this past march 9Admin Note: VIS GIVEN 2008- 10Admin Note: vis 11/25/06 Medications acetaminophen 500 mg oral tablet 1 tablet = 500 mg, By Mouth, 2 times a day, PRN for pain, take only if needed, # 60 tablet, 5 Refills, Maintenance, 04/17/19 10:49:00 EST, Tablet, [facility] - [place], [place] -, 172, cm, 04/17/19 9:42:00 EST, Height, 83.7, kg, 04/04/19 0:17:00 E... Start Date: 04/17/19 Stop Date: 10/14/19 Status: Ordered albuterol CFC free 90 mcg/inh inhalation aerosol See Instructions, # 18 Gm, Refills 5 Tot. Refills 5, INHALE 2 PUFFS BY MOUTH INTO THE lungs 4 (FOUR) TIMES DAILY NEEDED FOR SHORTNESS OF BREATH OR FOR WHEEZING, [facility] - [place], [place] - Start Date: 01/21/19 Status: Ordered Alcohol Pads See Instructions, # 50 each, Refills 11, Tot. Refills 11, Maintenance, E11.9 check BG daily, 12/05/18 7:49:59 EDT, Compound Start Date: 12/05/18 Status: Ordered amLODIPine 5 mg oral tablet 1 tablet, By Mouth, Daily, # 30 tablet, 11 Refills, Maintenance, 06/22/20 20:22:00 EST, [facility], 173, cm, 04/12/20 11:01:00 EST, Height, 86.8, kg, 04/07/20 8:07:00 EST, Dry Weight Start Date: 06/22/20 Status: Ordered azelastine 0.05% ophthalmic solution 1 [...] 07/14/19 Status: Ordered Talbert Elastic barrier strips #599240 Talbert Elastic barrier strips #487454, See Instructions, # 1 units, Refills 11, [...] 04/19/20 11:34:00 EST, Route to Pharmacy Electronically, [facility] [id number], 173, cm, 04/12/20 11:01:00 EST, Heigh... Start Date: 04/19/20 Stop Date: 11/15/20 Status: Ordered carvedilol 6.25 mg oral tablet 6.25 mg, 1, tablet, By Mouth, 2 times a day, # 60 tablet, Refills 2, Tot. Refills 2, Maintenance, 06/22/20 11:26:00 EST, Route to Pharmacy Electronically, [facility], [facility] [id number], 173, cm, 04/12/20 11:01:00 EST, Height, 86.8, kg... Start Date: 06/22/20 Stop Date: 09/20/20 Status: Ordered carvedilol 6.25 mg oral tablet 6.25 mg, 1, tablet, By Mouth, 2 times a day, # 60 tablet, Refills 11, Tot. Refills 11, Maintenance,06/22/20 21:17:00 EST, Route to Pharmacy Electronically, [facility], [facility] [id number], 173, cm, 04/12/20 11:01:00 EST, Height, 86.8,... Start Date: 06/22/20 Stop Date: 06/17/21 Status: Ordered cetirizine 10 mg oral tablet 1 tablet = 10 mg, By Mouth, Daily, PRN if needed for allergy symptoms, do not blister pack, # 90 tablet, 1 Refills, Maintenance, 04/19/20 11:34:00 EST, Tablet, [facility], [facility] [id number], 173, cm, 04/12/20 11:01:00 EST, Height, 86.... Start Date: 04/19/20 Stop Date: 10/16/20 Status: Ordered Colace Capsule 100 mg, 1, capsule, By Mouth, 2 times a day, Hold for loose stool, Refills 0, Maintenance, 208:50:00 EST, Partial fill upon patient request if the prescription is for a schedule II opioid drug. Start Date: 04/12/20 Status: Ordered coloplast #49886 pouch coloplast #45014 pouch, See Instructions, # 20 each, Refills 11, Tot. Refills 11, Maintenance, use as needed for ostomy care. 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 Fax to Andre ([facility]), 06/25/19 12:46:00 EST, Compound Start Date: 06/25/19 Status: Ordered coloplast #60578 pouch coloplast #10426 pouch, See Instructions, # 40 each, Refills 11, Tot. Refills 11, Maintenance, use as needed for ostomy care. 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 Fax to Andre ([facility]). disp 40 coloplast pouche... Start Date: 08/05/19 Status: Ordered coloplast 32681 convex 1 piece coloplast 33353 convex 1 piece, See Instructions, # 1 box, Refills 11, Tot. Refills 11, Maintenance, use for ostomy changes Dx- uc/ileostomy, 07/25/18 11:04:40 EDT, Compound Start Date: 07/25/18 Status: Ordered coloplast bags #07401 coloplast bags #90880, See Instructions, # 20 each, Refills 11, Tot. Refills 11, Maintenance, use as needed for ostomy care Dx. ileostomy Z93.2, 07/14/19 10:56:00 EDT, Compound Start Date: 07/14/19 Status: Ordered Compression Stockings See Instructions, # 4 each, Refills 1, Tot. Refills 1, Maintenance, knee high compression hose 20-30mm 4 pair dx bilateral leg edema. R60.0 pls fax to [facility], 05/12/19 14:02:00 EST, Compound Start Date: [...] USE, # 100 Gm, 5 Refills, Maintenance, [facility], 30, APPLY TO PAINFUL KNEES 1 [...] 11 Refills, Maintenance, 07/29/19 11:40:00 EDT, Tablet, [place], [place] -, 172, cm, 06/25/19 10:26:00 EST, Height, 83.7, kg, 04/04/19 0:17:00 EST, Dry Weight Start Date: 07/29/19 Stop Date: 07/23/20 Status: Ordered Imodium A-D 2 mg oral [...] 0 Refills, Maintenance, 04/19/20 11:35:00 EST, Tablet, [place], [place] - [id number], 173, cm, 04/12/2011:01:00 EST, Height, 86.8, kg, 04/07/20 8:07:00 ES... Start Date: 04/19/20 Stop Date: 04/14/21 Status: Ordered LifeLine LifeLine, See Instructions, # 1 each, Refills 0, Tot. Refills 0, Maintenance, use to call for help in the home as directed length of need 99 B20, F32.9, F11.2 Pt address/#: [address] [place] [address], [address]. [phone] Critical Signal... Start Date: 01/15/18 Status: Ordered [...] Date: 09/12/18 Status: Ordered No-nsting skin prep #[id number] No-nsting skin prep #43474033, See Instructions, # 1 bottle, Refills 11, Tot. Refills 11, Maintenance, Use as needed for ostomy care Dx: colostomy, 01/31/18 11:44:14 EDT, Compound Start Date: 01/31/18 Status: Ordered omeprazole 20 mg oral enteric coated capsule 1 capsule = 20 mg, By Mouth, Daily, PRN only if needed for acid reflux symptoms, # 90 capsule, 0 Refills, Maintenance, 04/19/20 11:34:00 EST, EC Capsule, [place], [place] - [id number], 173, cm, 04/12/20 11:01:00 EST, Height, 86.8, [...] tablet, 11 Refills, Maintenance, 06/22/20 20:22:00 EST, [facility], 173, cm, 04/12/20 11:01:00 EST, Height, [...] Ordered Suboxone 8 mg-2 mg sublingual film 1.5 film, Sublingual, Daily, [id number] MassPATchecked. dissolve under tongue, # 42 film, 0 Refills,Maintenance, 07/19/20 11:29:00 EDT, [facility] [place], [place] - [id number], 1.5 film Sublingual Daily,x28 days,Instr:[id number]; MassPATchec... Start Date: 07/19/20 Stop Date: 08/16/20 Status: Ordered traZODone 100 mg oral tablet 1, tablet, By Mouth, Daily at bedtime, PRN, # 30 tablet, Refills 11, Tot. Refills 0, Maintenance, NEEDED FOR insomnia, 07/19/19 17:09:00 EDT, Route to Pharmacy Electronically, [facility], 172, cm, 06/25/19 10:26:00 EST, Height, 83.7, kg, 04/04... Start Date: 07/19/19 Status: Ordered Triumeq oral tablet 1 tablet, By Mouth, Daily, # 30 tablet, 11 Refills, Maintenance, 07/29/19 11:40:00 EDT, Tablet, [facility] - [place], [place] -, 1 tablet By Mouth Daily,x30 days, 172, cm, 06/25/19 10:26:00 EST, Height, 83.7, kg, 04/04/19 0:17:00 EST, Dry Weight Start Date: 07/29/19 Stop Date: 07/23/20 Status: Ordered Unisolve adhesive remover #799220 Unisolve adhesive remover #465180, See Instructions, # 1 box, Refills 11, Tot. Refills 11, Maintenance, To remove appliance at every change Dx Ulcerative Colitis, 01/31/18 11:44:15 EDT, Compound Start Date: 01/31/18 Status: Ordered warfarin 1 mg oral tablet See Instructions, Take 1-10 tablets By Mouth Daily as directed by [facility], # 150 tablet, 0 Refills, Maintenance, 04/12/20 8:51:00 EST, Tablet, [facility], [facility], Partial fill upon patient requestif [...] inguinal pain(Confirmed) Active 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) Active [phone] Care Partn er-Jesica Jeter(Confirmed) Active traumatic splenectomy [...]
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
--- OUTSIDE RECORDS SUMMARY | 2022-12-18 06:30 | XMS_ITS | Continuity of Care Document ---
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 Role Phone Laly FERNANDEZ, Noemi Marshall Primary Care Physician Encounter [facility] Date(s): 08/12/20 - 09/11/[address] [address]- Allergies, Adverse Reactions, Alerts Substance Reaction Severity Status ampicillin Active aspirin BLEEDING Persistent Severe Active Pollen NASAL CONGESTION SNEEZING Persistent Mode rate Active NSAIDs bleeding Persistent Severe Active Immunizations Given and Recorded Vaccine Date Status Refusal Reason SARS-CoV-2 (COVID-19) Ad26 vaccine 1 07/21/20 Sundar [...] VIS 10/03 4Result Comment: [12/07/2016] diluent LOT [id number] EXP 03/29/2018 5Result Comment: [07/18/2016] Liquid component: [id number], exp.: 05/2017 6Admin Note: VIS 12/13/2006 7Admin Note: vis 10/30/11 8Admin Note: vis [id number] 9Admin Note: done at [facility] this past march 10Admin Note: VIS GIVEN 2008- 11Admin Note: vis 11/25/06 Medications acetaminophen 500 mg oral tablet 1 tablet = 500 mg, By Mouth, 2 times a day, PRN for pain, take only if needed, # 60 tablet, 5 Refills, Maintenance, 04/17/19 10:49:00 EST, Tablet, [facility] [place], [place] -, 172, cm, 04/17/19 9:42:00 EST, Height, 83.7, kg, 04/04/19 0:17:00 E... Start Date: 04/17/19 Stop Date: 10/14/19 Status: Ordered albuterol CFC free 90 mcg/inh inhalation aerosol See Instructions, # 18 Gm, Refills 5 Tot. Refills 5, INHALE 2 PUFFS BY MOUTH INTO THE lungs 4 (FOUR) TIMES DAILY NEEDED FOR SHORTNESS OF BREATH OR FOR WHEEZING, [facility] [place] [place] - Start Date: 01/21/19 Status: Ordered Alcohol Pads See Instructions, # 50 each, Refills 11, Tot. Refills 11, Maintenance, E11.9 check BG daily, 12/05/18 7:49:59 EDT, Compound Start Date: 12/05/18 Status: Ordered amLODIPine 5 mg oral tablet 1 tablet, By Mouth, Daily, # 30 tablet, 11 Refills, Maintenance, 06/22/20 20:22:00 EST, [facility], 173, cm, 04/12/20 11:01:00 EST, Height, 86.8, kg, 04/07/20 8:07:00 EST, Dry Weight Start Date: 06/22/20 Status: Ordered apixaban 2.5 mg oral tablet 1 tablet = 2.5 mg, By Mouth, 2 times a day, # 60 tablet, 0 Refills, Maintenance, 07/30/20 9:38:00 EDT, Tablet, [facility], Partial fill upon patient request if [...] 07/14/19 Status: Ordered Talbert Elastic barrier strips #384386 Talbert Elastic barrier strips #972133, See Instructions, # 1 units, Refills 11, Tot. Refills 11, Maintenance, To remove appliance at every change Dx Ulcerative Colitis, 01/31/18 11:44:17 EDT, Compound Start Date: 01/31/18 Status: Ordered busPIRone 5 mg oral tablet 5 mg, 1, tablet, By Mouth, 3 times a day, for anxiety, # 270 tablet, Refills 1, Tot. Refills 1, Maintenance, 04/19/20 11:34:00 EST, Route to Pharmacy Electronically, [facility] [id number], 173, cm, 04/12/20 11:01:00 EST, Heigh... Start Date: 04/19/20 Stop Date: 11/15/20 Status: Ordered carvedilol 6.25 mg oral tablet 6.25 mg, 1, tablet, By Mouth, 2 times a day, # 60 tablet, Refills 11, Tot. Refills 11, Maintenance,06/22/20 21:17:00 EST, Route to Pharmacy Electronically, [facility] [id number], 173, cm, 04/12/20 11:01:00 EST, Height, 86.8,... Start Date: 06/22/20 Stop Date: 06/17/21 Status: Ordered cetirizine 10 mg oral tablet 1 tablet = 10 mg, By Mouth, Daily, PRN if needed for allergy symptoms, do not blister pack, # 90 tablet, 1 Refills, Maintenance, 04/19/20 11:34:00 EST, Tablet, [facility] [id number], 173, cm, 04/12/20 11:01:00 EST, Height, 86.... Start Date: 04/19/20 Stop Date: 10/16/20 Status: Ordered Colace Capsule 100 mg, 1, capsule, By Mouth, 2 times a day, Hold for loose stool, Refills 0, Maintenance, :50:00 EST, Partial fill upon patient request if the prescription is for a schedule II opioid drug. Start Date: 04/12/20 Status: Ordered coloplast #81175 pouch coloplast #16300 pouch, See Instructions, # 20 each, Refills 11, Tot. Refills 11, Maintenance, use as needed for ostomy care. 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 [facility] 06/25/19 12:46:00 EST, Compound Start Date: 06/25/19 Status: Ordered coloplast #89798 pouch coloplast #59807 pouch, See Instructions, # 40 each, Refills 11, Tot. Refills 11, Maintenance, use as needed for ostomy care. 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 Fax to [facility] disp 40 coloplast pouche... Start Date: 08/05/19 Status: Ordered coloplast 53266 convex 1 piece coloplast 67990 convex 1 piece, See Instructions, # 1 box, Refills 11, Tot. Refills 11, Maintenance, use for ostomy changes Dx- uc/ileostomy, 07/25/18 11:04:40 EDT, Compound Start Date: 07/25/18 Status: Ordered coloplast bags #81572 coloplast bags #76278, See Instructions, # 20 each, Refills 11, Tot. Refills 11, Maintenance, use as needed for ostomy care Dx. ileostomy Z93.2, 07/14/19 10:56:00 EDT, Compound Start Date: 07/14/19 Status: Ordered Compression Stockings See Instructions, # 4 each, Refills 1, Tot. Refills 1, Maintenance, knee high compression hose 20-30mm 4 pair dx bilateral leg edema. R60.0 pls fax to [facility], 05/12/19 14:02:00 EST, Compound Start Date: 05/12/19 Status: Ordered contour next EZ lancets contour next EZ lancets, See Instructions, # 50 each, Refills 11, Tot. Refills 11, Maintenance, E11.9 check BG daily, 05/22/18 16:10:05 EST, Compound Start Date: 05/22/18 Status: Ordered sophia seals sophia seals, See [...] 11 Refills, Maintenance, 07/23/20 12:00:00 EDT, Tablet, [place], [place] - [id number], 173, cm, 07/19/20 10:52:00 EDT, Height, 86.8, [...] 07/18/21 12:01:00 EDT, 07/23/20 12:01:00 EDT, Tablet, [facility] [place] [place] - [id number], 173, cm, 07/19/20 10:52:00 EDT, Hei... Start Date: 07/23/20 Stop Date: 07/18/21 Status: Ordered LifeLine LifeLine, See Instructions, # 1 each, Refills 0, Tot. Refills 0, Maintenance, use to call for help in the home as directed length of need 99 B20, F32.9, F11.2 Pt address/#: [address] [place] [address], [address]. [phone] Critical Signal... Start Date: 01/15/18 Status: Ordered [...] Date: 09/12/18 Status: Ordered No-nsting skin prep #[id number] No-nsting skin prep #32728604, See Instructions, # 1 bottle, Refills 11, Tot. Refills 11, Maintenance, Use as needed for ostomy care Dx: colostomy, 01/31/18 11:44:14 EDT, Compound Start Date: 01/31/18 Status: Ordered omeprazole 20 mg oral enteric coated capsule 1 capsule = 20 mg, By Mouth, Daily, PRN only if needed for acid reflux symptoms, # 90 capsule, 1 Refills, Maintenance, 07/23/20 12:01:00 EDT, EC Capsule, [facility] [place] [place] - [id number], 173, cm, 07/19/20 10:52:00 EDT, Height, 86.8, [...] tablet, 11 Refills, Maintenance, 08/02/20 17:47:00 EDT, [facility], 172, cm, 07/30/20 16:38:00 EDT, Height, [...] tablet, 11 Refills, Maintenance, 06/22/20 20:22:00 EST, [facility], 173, cm, 04/12/20 11:01:00 EST, Height, [...] mg sublingual film 2 film, Sublingual, Daily, [id number] MassPATchecked. dissolve under tongue, # 56 film, 0 Refills, Maintenance, 08/27/20 9:08:00 EDT, [place], [place] - [id number], 2 film Sublingual Daily,x28 days,Instr:[id number]; MassPATchecked.... Start Date: 08/27/20 Stop Date: 09/24/20 Status: Ordered traZODone 100 mg oral tablet 1, tablet, By Mouth, Daily at bedtime, PRN, # 30 tablet, Refills 11, Tot. Refills 0, Maintenance, NEEDED FOR insomnia, 07/23/20 12:03:00 EDT, Route to Pharmacy Electronically, [facility], 173, cm, 07/19/20 10:52:00 EDT, Height, 86.8, kg, 04/07... Start Date: 07/23/20 Status: Ordered Triumeq oral tablet 1 tablet, By Mouth, Daily, # 30 tablet, 11 Refills, Maintenance, 07/23/20 12:00:00 EDT, Tablet, [facility] [place] [place] - [id number], 1 tablet By Mouth Daily,x30 days, 173, cm, 07/19/20 10:52:00 EDT, Height, 86.8, kg, 04/07/20 8:07:00 EST D... Start Date: 07/23/20 Stop Date: 07/18/21 Status: Ordered Unisolve adhesive remover #347123 Unisolve adhesive remover #600426, See Instructions, # 1 box, Refills 11, [...] inguinal pain(Confirmed) Active 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) Active *[id number] Care Partn krysten-Jesica Jeter(Confirmed) Active traumatic splenectomy [...]
--- OUTSIDE RECORDS SUMMARY | 2022-12-18 06:30 | XMS_ITS | Continuity of Care Document ---
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 Role Phone Noemi Ruffin MD, I Primary Care Physician Encounter [facility] Date(s): 09/14/20 - 10/14/[address] [address]- Allergies, Adverse Reactions, Alerts Substance Reaction Severity [...] VIS 10/03 4Result Comment: [12/07/2016] diluent LOT [id number] EXP 03/29/2018 5Result Comment: [07/18/2016] Liquid component: [id number], exp.: 05/2017 6Admin Note: VIS 12/13/2006 7Admin Note: vis 10/30/11 8Admin Note: vis [id number] 9Admin Note: done at [facility] this past march 10Admin Note: VIS GIVEN 2008- 11Admin Note: vis 11/25/06 Medications acetaminophen 500 mg oral tablet 1 tablet = 500 mg, By Mouth, 2 times a day, PRN for pain, take only if needed, # 60 tablet, 5 Refills, Maintenance, 04/17/19 10:49:00 EST, Tablet, [facility] [place], [place] -, 172, cm, 04/17/19 9:42:00 EST, Height, 83.7, kg, 04/04/19 0:17:00 E... Start Date: 04/17/19 Stop Date: 10/14/19 Status: Ordered albuterol CFC free 90 mcg/inh inhalation aerosol See Instructions, # 18 Gm, Refills 5 Tot. Refills 5, INHALE 2 PUFFS BY MOUTH INTO THE lungs 4 (FOUR) TIMES DAILY NEEDED FOR SHORTNESS OF BREATH OR FOR WHEEZING, [facility] [place] [place] - Start Date: 01/21/19 Status: Ordered Alcohol Pads See Instructions, # 50 each, Refills 11, Tot. Refills 11, Maintenance, E11.9 check BG daily, 12/05/18 7:49:59 EDT, Compound Start Date: 12/05/18 Status: Ordered amLODIPine 5 mg oral tablet 1 tablet, By Mouth, Daily, # 30 tablet, 11 Refills, Maintenance, 06/22/20 20:22:00 EST, [facility], 173, cm, 04/12/20 11:01:00 EST, Height, 86.8, kg, 04/07/20 8:07:00 EST, Dry Weight Start Date: 06/22/20 Status: Ordered apixaban 2.5 mg oral tablet 1 tablet = 2.5 mg, By Mouth, 2 times a day, # 60 tablet, 0 Refills, Maintenance, 07/30/20 9:38:00 EDT, Tablet, [facility], Partial fill upon patient [...] 07/14/19 Status: Ordered Talbert Elastic barrier strips #138714 Talbert Elastic barrier strips #[id number], See Instructions, # 1 units, Refills 11, Tot. Refills 11, Maintenance, To remove appliance at every change Dx Ulcerative Colitis, 01/31/18 11:44:17 EDT, Compound Start Date: 01/31/18 Status: Ordered busPIRone 5 mg oral tablet 5 mg, 1, tablet, By Mouth, 3 times a day, for anxiety, # 270 tablet, Refills 1, Tot. Refills 1, Maintenance, 04/19/20 11:34:00 EST, Route to Pharmacy Electronically, [facility] [id number], 173, cm, 04/12/20 11:01:00 EST, Heigh... Start Date: 04/19/20 Stop Date: 11/15/20 Status: Ordered carvedilol 12.5 mg oral tablet 12.5 mg, 1, tablet, By Mouth, 2 times a day, increase in dose, # 60 tablet, Refills 11, Tot. Refills 11, Maintenance, 10/12/20 11:48:00 EDT, Route to Pharmacy Electronically, [facility] [id number], Partial fill upon patient re... Start Date: 10/12/20 Stop Date: 10/07/21 Status: Ordered cetirizine 10 mg oral tablet 1 tablet = 10 mg, By Mouth, Daily, PRN if needed for allergy symptoms, do not blister pack, # 90 tablet, 1 Refills, Maintenance, 04/19/20 11:34:00 EST, Tablet, [place], [place] - [id number], 173, cm, 04/12/20 11:01:00 EST, Height, 86.... Start Date: 04/19/20 Stop Date: 10/16/20 Status: Ordered Colace Capsule 100 mg, 1, capsule, By Mouth, 2 times a day, Hold for loose stool, Refills 0, Maintenance, :50:00 EST, Partial fill upon patient request if the prescription is for a schedule II opioid drug. Start Date: 04/12/20 Status: Ordered coloplast #01257 pouch coloplast #55511 pouch, See Instructions, # 20 each, Refills 11, Tot. Refills 11, Maintenance, use as needed for ostomy care. 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 Fax to [facility], 06/25/19 12:46:00 EST, Compound Start Date: 06/25/19 Status: Ordered coloplast #80377 pouch coloplast #89626 pouch, See Instructions, # 40 each, Refills 11, Tot. Refills 11, Maintenance, use as needed for ostomy care. 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 Fax to [facility]). disp 40 coloplast pouche... Start Date: 08/05/19 Status: Ordered coloplast 81920 convex 1 piece coloplast 37647 convex 1 piece, See Instructions, # 1 box, Refills 11, Tot. Refills 11, Maintenance, use for ostomy changes Dx- uc/ileostomy, 07/25/18 11:04:40 EDT, Compound Start Date: 07/25/18 Status: Ordered coloplast bags #57242 coloplast bags #29625, See Instructions, # 20 each, Refills 11, Tot. Refills 11, Maintenance, use as needed for ostomy care Dx. ileostomy Z93.2, 07/14/19 10:56:00 EDT, Compound Start Date: 07/14/19 Status: Ordered Compression Stockings See Instructions, # 4 each, Refills 1, Tot. Refills 1, Maintenance, knee high compression hose 20-30mm 4 pair dx bilateral leg edema. R60.0 pls fax to [facility], 05/12/19 14:02:00 EST, Compound Start Date: [...] 11 Refills, Maintenance, 07/23/20 12:00:00 EDT, Tablet, [place], [place] - [id number], 173, cm, 07/19/20 10:52:00 EDT, Height, 86.8, [...] 07/18/21 12:01:00 EDT, 07/23/20 12:01:00 EDT, Tablet, [facility] [place] [place] - [id number], 173, cm, 07/19/20 10:52:00 EDT, Hei... Start Date: 07/23/20 Stop Date: 07/18/21 Status: Ordered LifeLine LifeLine, See Instructions, # 1 each, Refills 0, Tot. Refills 0, Maintenance, use to call for help in the home as directed length of need 99 B20, F32.9, F11.2 Pt address/#: [address] [place] [address], [address]. [phone] Critical Signal... Start Date: 01/15/18 Status: Ordered [...] Date: 09/12/18 Status: Ordered No-nsting skin prep #[id number] No-nsting skin prep #[id number], See Instructions, # 1 bottle, Refills 11, Tot. Refills 11, Maintenance, Use as needed for ostomy care Dx: colostomy, 01/31/18 11:44:14 EDT, Compound Start Date: 01/31/18 Status: Ordered omeprazole 20 mg oral enteric coated capsule 1 capsule = 20 mg, By Mouth, Daily, PRN only if needed for acid reflux symptoms, # 90 capsule, 1 Refills, Maintenance, 07/23/20 12:01:00 EDT, EC Capsule, [facility] [place] [place] - [id number], 173, cm, 07/19/20 10:52:00 EDT, Height, 86.8, [...] tablet, 11 Refills, Maintenance, 08/02/20 17:47:00 EDT, [facility], 172, cm, 07/30/20 16:38:00 EDT, [...] tablet, 11 Refills, Maintenance, 06/22/20 20:22:00 EST, [facility], 173, cm, 04/12/20 11:01:00 EST, [...] mg sublingual film 2 film, Sublingual, Daily, [id number] MassPATchecked. dissolve under tongue, # 56 film, 0 Refills, Maintenance, 09/21/20 16:49:00 EDT, [place], [place] - [id number], 2 film SublingualDaily,x28 days,Instr:[id number]; MassPATchecked.... Start Date: 09/21/20 Stop Date: 10/19/20 Status: Ordered traZODone 100 mg oral tablet 1, tablet, By Mouth, Daily at bedtime, PRN, # 30 tablet, Refills 11, Tot. Refills 0, Maintenance, NEEDED FOR insomnia, 07/23/20 12:03:00 EDT, Route to Pharmacy Electronically, [facility], 173, cm, 07/19/20 10:52:00 EDT, Height, 86.8, kg, 04/07... Start Date: 07/23/20 Status: Ordered Triumeq oral tablet 1 tablet, By Mouth, Daily, # 30 tablet, 11 Refills, Maintenance, 07/23/20 12:00:00 EDT, Tablet, [facility] [place] [place] - [id number], 1 tablet By Mouth Daily,x30 days, 173, cm, 07/19/20 10:52:00 EDT, Height, 86.8, kg, 04/07/20 8:07:00 EST, D... Start Date: 07/23/20 Stop Date: 07/18/21 Status: Ordered Unisolve adhesive remover #922138 Unisolve adhesive remover #268985, See Instructions, # 1 box, Refills 11, [...] inguinal pain(Confirmed) Active 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) Active *[phone] Care Partn er-Jesica Jeter(Confirmed) Active traumatic splenectomy [...]
--- OUTSIDE RECORDS SUMMARY | 2022-12-18 06:30 | XMS_ITS | Continuity of Care Document ---
Author Name Unknown Organization 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 Phone Noemi Ruffin MD, I Primary Care Physician Encounter [facility] Date(s): 08/19/20 - 09/18/[address] [address]- Allergies, Adverse Reactions, Alerts Substance Reaction Severity [...] 02/22/07 Gi jurgen influenza virus vaccine, inactivated 02/23/06 Gi jurgen influenza virus vaccine, inactivated [...] VIS 10/03 4Result Comment: [12/07/2016] diluent LOT [id number] EXP 03/29/2018 5Result Comment: [07/18/2016] Liquid component: [id number], exp.: 05/2017 6Admin Note: VIS 12/13/2006 7Admin Note: vis 10/30/11 8Admin Note: vis [id number] 9Admin Note: done at [facility] this past march 10Admin Note: VIS GIVEN 2008- 11Admin Note: vis 11/25/06 Medications acetaminophen 500 mg oral tablet 1 tablet = 500 mg, By Mouth, 2 times a day, PRN for pain, take only if needed, # 60 tablet, 5 Refills, Maintenance, 04/17/19 10:49:00 EST, Tablet, [facility] [place], [place] -, 172, cm, 04/17/19 9:42:00 EST, Height, 83.7, kg, 04/04/19 0:17:00 E... Start Date: 04/17/19 Stop Date: 10/14/19 Status: Ordered albuterol CFC free 90 mcg/inh inhalation aerosol See Instructions, # 18 Gm, Refills 5 Tot. Refills 5, INHALE 2 PUFFS BY MOUTH INTO THE lungs 4 (FOUR) TIMES DAILY NEEDED FOR SHORTNESS OF BREATH OR FOR WHEEZING, [facility] [place] [place] - Start Date: 01/21/19 Status: Ordered Alcohol Pads See Instructions, # 50 each, Refills 11, Tot. Refills 11, Maintenance, E11.9 check BG daily, 12/05/18 7:49:59 EDT, Compound Start Date: 12/05/18 Status: Ordered amLODIPine 5 mg oral tablet 1 tablet, By Mouth, Daily, # 30 tablet, 11 Refills, Maintenance, 06/22/20 20:22:00 EST, [facility], 173, cm, 04/12/20 11:01:00 EST, Height, 86.8, kg, 04/07/20 8:07:00 EST, Dry Weight Start Date: 06/22/20 Status: Ordered apixaban 2.5 mg oral tablet 1 tablet = 2.5 mg, By Mouth, 2 times a day, # 60 tablet, 0 Refills, Maintenance, 07/30/20 9:38:00 EDT, Tablet, [facility], Partial fill upon patient [...] 07/14/19 Status: Ordered Talbert Elastic barrier strips #322874 Talbert Elastic barrier strips #228113, See Instructions, # 1 units, Refills 11, Tot. Refills 11, Maintenance, To remove appliance at every change Dx Ulcerative Colitis, 01/31/18 11:44:17 EDT, Compound Start Date: 01/31/18 Status: Ordered busPIRone 5 mg oral tablet 5 mg, 1, tablet, By Mouth, 3 times a day, for anxiety, # 270 tablet, Refills 1, Tot. Refills 1, Maintenance, 04/19/20 11:34:00 EST, Route to Pharmacy Electronically, [facility] [id number], 173, cm, 04/12/20 11:01:00 EST, Heigh... Start Date: 04/19/20 Stop Date: 11/15/20 Status: Ordered carvedilol 6.25 mg oral tablet 6.25 mg, 1, tablet, By Mouth, 2 times a day, # 60 tablet, Refills 11, Tot. Refills 11, Maintenance,06/22/20 21:17:00 EST, Route to Pharmacy Electronically, [facility] [id number], 173, cm, 04/12/20 11:01:00 EST, Height, 86.8,... Start Date: 06/22/20 Stop Date: 06/17/21 Status: Ordered cetirizine 10 mg oral tablet 1 tablet = 10 mg, By Mouth, Daily, PRN if needed for allergy symptoms, do not blister pack, # 90 tablet, 1 Refills, Maintenance, 04/19/20 11:34:00 EST, Tablet, [facility] [id number], 173, cm, 04/12/20 11:01:00 EST, Height, 86.... Start Date: 04/19/20 Stop Date: 10/16/20 Status: Ordered Colace Capsule 100 mg, 1, capsule, By Mouth, 2 times a day, Hold for loose stool, Refills 0, Maintenance, :50:00 EST, Partial fill upon patient request if the prescription is for a schedule II opioid drug. Start Date: 04/12/20 Status: Ordered coloplast #55742 pouch coloplast #40426 pouch, See Instructions, # 20 each, Refills 11, Tot. Refills 11, Maintenance, use as needed for ostomy care. 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 Fax to [facility]), 06/25/19 12:46:00 EST, Compound Start Date: 06/25/19 Status: Ordered coloplast #59903 pouch coloplast #26110 pouch, See Instructions, # 40 each, Refills 11, Tot. Refills 11, Maintenance, use as needed for ostomy care. 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 Fax to [facility] ([facility]). disp 40 coloplast pouche... Start Date: 08/05/19 Status: Ordered coloplast 68254 convex 1 piece coloplast 47292 convex 1 piece, See Instructions, # 1 box, Refills 11, Tot. Refills 11, Maintenance, use for ostomy changes Dx- uc/ileostomy, 07/25/18 11:04:40 EDT, Compound Start Date: 07/25/18 Status: Ordered coloplast bags #24515 coloplast bags #67690, See Instructions, # 20 each, Refills 11, Tot. Refills 11, Maintenance, use as needed for ostomy care Dx. ileostomy Z93.2, 07/14/19 10:56:00 EDT, Compound Start Date: 07/14/19 Status: Ordered Compression Stockings See Instructions, # 4 each, Refills 1, Tot. Refills 1, Maintenance, knee high compression hose 20-30mm 4 pair dx bilateral leg edema. R60.0 pls fax to [facility], 05/12/19 14:02:00 EST, Compound Start Date: [...] 11 Refills, Maintenance, 07/23/20 12:00:00 EDT, Tablet, [place], [place] - [id number], 173, cm, 07/19/20 10:52:00 EDT, Height, 86.8, [...] 07/18/21 12:01:00 EDT, 07/23/20 12:01:00 EDT, Tablet, [facility] [place] [place] - [id number], 173, cm, 07/19/20 10:52:00 EDT, Hei... Start Date: 07/23/20 Stop Date: 07/18/21 Status: Ordered LifeLine LifeLine, See Instructions, # 1 each, Refills 0, Tot. Refills 0, Maintenance, use to call for help in the home as directed length of need 99 B20, F32.9, F11.2 Pt address/#: [address] [place] [address], [address]. [phone] Critical Signal... Start Date: 01/15/18 Status: Ordered [...] Date: 09/12/18 Status: Ordered No-nsting skin prep #22501109 No-nsting skin prep #38708193, See Instructions, # 1 bottle, Refills 11, Tot. Refills 11, Maintenance, Use as needed for ostomy care Dx: colostomy, 01/31/18 11:44:14 EDT, Compound Start Date: 01/31/18 Status: Ordered omeprazole 20 mg oral enteric coated capsule 1 capsule = 20 mg, By Mouth, Daily, PRN only if needed for acid reflux symptoms, # 90 capsule, 1 Refills, Maintenance, 07/23/20 12:01:00 EDT, EC Capsule, [facility] [place] [place] - [id number], 173, cm, 07/19/20 10:52:00 EDT, Height, 86.8, [...] tablet, 11 Refills, Maintenance, 08/02/20 17:47:00 EDT, [facility], 172, cm, 07/30/20 16:38:00 EDT, [...] tablet, 11 Refills, Maintenance, 06/22/20 20:22:00 EST, [facility], 173, cm, 04/12/20 11:01:00 EST, [...] mg sublingual film 2 film, Sublingual, Daily, [id number] MassPATchecked. dissolve under tongue, # 56 film, 0 Refills, Maintenance, 08/27/20 9:08:00 EDT, [place], [place] - [id number], 2 film Sublingual Daily,x28 days,Instr:[id number]; MassPATchecked.... Start Date: 08/27/20 Stop Date: 09/24/20 Status: Ordered traZODone 100 mg oral tablet 1, tablet, By Mouth, Daily at bedtime, PRN, # 30 tablet, Refills 11, Tot. Refills 0, Maintenance, NEEDED FOR insomnia, 07/23/20 12:03:00 EDT, Route to Pharmacy Electronically, [facility], 173, cm, 07/19/20 10:52:00 EDT, Height, 86.8, kg, 04/07... Start Date: 07/23/20 Status: Ordered Triumeq oral tablet 1 tablet, By Mouth, Daily, # 30 tablet, 11 Refills, Maintenance, 07/23/20 12:00:00 EDT, Tablet, [facility] [place] [place] - [id number], 1 tablet By Mouth Daily,x30 days, 173, cm, 07/19/20 10:52:00 EDT, Height, 86.8, kg, 04/07/20 8:07:00 Heri MCGOVERN.. Start Date: 07/23/20 Stop Date: 07/18/21 Status: Ordered Unisolve adhesive remover #221192 Unisolve adhesive remover #852718, See Instructions, # 1 box, Refills 11, [...] inguinal pain(Confirmed) Active 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) Active *[phone] Care Partn krysten-Jesica Jeter(Confirmed) Active traumatic splenectomy [...]
--- OUTSIDE RECORDS SUMMARY | 2022-12-18 06:30 | XMS_ITS | Continuity of Care Document ---
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 this past march 10Admin Note: VIS GIVEN 2008- 11Admin Note: vis 11/25/06 Medications acetaminophen 500 mg oral tablet 1 tablet, By Mouth, 2 times a day, PRN NEEDED FOR PAIN, TAKE ONLY IF needed, # 60 tablet, 5 Refills, [facility], 172, cm, 01/18/21 12:02:00 EDT, Height, 89.7, kg, 07/29/20 7:42:00 EDT, Dry Weight Start Date: 01/27/21 Status: Ordered Albuterol (Eqv-ProAir HFA) 90 mcg/inh inhalation aerosol 2 puffs, Inhalation, 4 times a day, PRN NEEDED FOR SHORTNESS OF BREATH OR FOR WHEEZING, # 25.5 Gm, 1 Refills, Maintenance, 02/21/21 9:52:00 EDT, [place], [place] - [id number], 2 puffs Inhalation 4 times a day,PRN: [...] Weight Start Date: 01/05/21 Status: Ordered amLODIPine 10 mg oral tablet 1 tablet = 10 mg, By Mouth, Daily, please note increase in dose., # 30 tablet, 5 Refills, Maintenance, 11/05/20 12:56:00 EDT, Tablet, [place], [place] - [id number], Partial fill uponpatient request if the prescription is for a schedu... Start Date: 11/05/20 Status: Ordered apixaban 2.5 mg oral tablet 1 tablet = 2.5 mg, By Mouth, 2 times a day, # 60 tablet, 0 Refills, Maintenance, 07/30/20 9:38:00 EDT, Tablet, [facility], Partial fill upon patient request [...] 07/14/19 Status: Ordered Talbert Elastic barrier strips #021939 Talbert Elastic barrier strips #871073, See Instructions, # 1 units, Refills 11, Tot. Refills 11, Maintenance, To remove appliance at every change Dx Ulcerative Colitis, 01/31/18 11:44:17 EDT, Compound Start Date: 01/31/18 Status: Ordered busPIRone 5 mg oral tablet 1, tablet, By Mouth, 3 times a day, FOR ANXIETY., # 270 tablet, Refills 1, Tot. Refills 0, Maintenance, 10/26/20 10:29:00 EDT, Route to Pharmacy Electronically, [facility], 172, cm, 07/30/20 16:38:00 EDT, Height, 89.7, kg, 07/29/20 7:42:00 EDT, D... Start Date: 10/26/20 Status: Ordered carvedilol 12.5 mg oral tablet 12.5 mg, 1, tablet, By Mouth, 2 times a day, increase in dose, # 60 tablet, Refills 11, Tot. Refills 11, Maintenance, 10/12/20 11:48:00 EDT, Route to Pharmacy Electronically, [place], [place] - [id number], Partial fill upon patient re... Start Date: 10/12/20 Stop Date: 10/07/21 Status: Ordered cetirizine 10 mg oral tablet 1 tablet, By Mouth, Daily, PRN NEEDED for allergy, # 90 tablet, 1 Refills, Maintenance, 10/26/2109:30:00 EDT, [facility], 172, cm, [...] drug. Start Date: 04/12/20 Status: Ordered coloplast #84378 pouch coloplast #38826 pouch, See Instructions, # 20 each, Refills 11, Tot. Refills 11, Maintenance, use as needed for ostomy care. 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 Fax to [facility] ([facility]), 06/25/19 12:46:00 EST, Compound Start Date: 06/25/19 Status: Ordered coloplast #70757 pouch coloplast #29490 pouch, See Instructions, # 40 each, Refills 11, Tot. Refills 11, Maintenance, use as needed for ostomy care. 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 Fax to [facility] ([facility]). disp 40 coloplast pouche... Start Date: 08/05/19 Status: Ordered coloplast 75159 convex 1 piece coloplast 17511 convex 1 piece, See Instructions, # 1 box, Refills 11, Tot. Refills 11, Maintenance, use for ostomy changes Dx- uc/ileostomy, 07/25/18 11:04:40 EDT, Compound Start Date: 07/25/18 Status: Ordered coloplast bags #96478 coloplast bags #19508, See Instructions, # 20 each, Refills 11, Tot. Refills 11, Maintenance, use as needed for ostomy care Dx. ileostomy Z93.2, 07/14/19 10:56:00 EDT, Compound Start Date: 07/14/19 Status: Ordered Compression Stockings See Instructions, # 4 each, Refills 1, Tot. Refills 1, Maintenance, knee high compression hose 20-30mm 4 pair dx bilateral leg edema. R60.0 pls fax to [facility], 05/12/19 14:02:00 EST, Compound Start Date: [...] 11 Refills, Maintenance, 07/23/20 12:00:00 EDT, Tablet, [facility] [id number], 173, cm, 07/19/20 10:52:00 EDT, Height, 86.8, kg, 04/07/20 8:07:00 EST, Dry Weight Start Date: 07/23/20 Stop Date: 07/18/21 Status: Ordered hydrochlorothiazide 12.5 mg oral tablet 1 tablet = 12.5 mg, By Mouth, Daily, # 30 tablet, 11 Refills, Maintenance, 01/04/21 11:11:00 EDT, Tablet, [facility] [id number], Partial fill upon patient request if the [...] 07/18/21 12:01:00 EDT, 07/23/20 12:01:00 EDT, Tablet, [facility] [id number], 173, cm, 07/19/20 10:52:00 EDT, Hei... Start Date: 07/23/20 Stop Date: 07/18/21 Status: Ordered LifeLine LifeLine, See Instructions, # 1 each, Refills 0, Tot. Refills 0, Maintenance, use to call for help in the home as directed length of need 99 B20, F32.9, F11.2 Pt address/#: [place] [address], [address]. [phone] Critical Signal... Start Date: 01/15/18 Status: Ordered [...] Date: 09/12/18 Status: Ordered No-nsting skin prep #[id number] No-nsting skin prep #69503799, See Instructions, # 1 bottle, Refills 11, Tot. Refills 11, Maintenance, Use as needed for ostomy care Dx: colostomy, 01/31/18 11:44:14 EDT, Compound Start Date: 01/31/18 Status: Ordered omeprazole 20 mg oral enteric coated capsule 1 capsule = 20 mg, By Mouth, Daily, PRN only if needed for acid reflux symptoms, # 90 capsule, 0 Refills, Maintenance, 01/21/21 6:58:00 EDT, EC Capsule, [facility], 172, cm, 01/18/21 12:02:00 EDT, Height, 89.7, kg, 07/29/20 7:42:00 EDT,... Start Date: 01/21/21 Status: Ordered Ostomy deodorizer liquid Ostomy deodorizer [...] 1 recliner seat pls fax to [facility], 03/04/21 16:24:00 EDT, Supply Start Date: 03/04/21 Status: Ordered right hinged knee brace right [...] mg sublingual film 3 film, Sublingual, Daily, [id number] MassPATchecked. dissolve under tongue, # 84 film, 0 Refills, Maintenance, 02/08/21 17:07:00 EDT, [place], [place] - [id number], increase in dose from 16 mg to 24 mg daily, 3 film Sublingual Jennifer... Start Date: 02/08/21 Stop Date: 03/08/21 Status: Ordered traZODone 100 mg oral tablet 1, tablet, By Mouth, Daily at bedtime, PRN, # 30 tablet, Refills 11, Tot. Refills 0, Maintenance, NEEDED FOR insomnia, 07/23/20 12:03:00 EDT, Route to Pharmacy Electronically, [facility], 173, cm, 07/19/20 10:52:00 EDT, Height, 86.8, kg, 04/07... Start Date: 07/23/20 Status: Ordered Triumeq oral tablet 1 tablet, By Mouth, Daily, # 30 tablet, 11 Refills, Maintenance, 07/23/20 12:00:00 EDT, Tablet, [facility] [place], [place] - [id number], 1 tablet By Mouth Daily,x30 days, 173, cm, 07/19/20 10:52:00 EDT, Height, 86.8, kg, 04/07/20 8:07:00 EST, D... 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
--- OUTSIDE RECORDS SUMMARY | 2022-12-18 06:30 | XMS_ITS | Continuity of Care Document ---
Author Name Unknown Organization [facility] Address [address] [place] [address]- Care Team Providers Care Proposal Consultant Name Role Phone Noemi Ruffin MD, I Primary Care Physician [phone] Encounter [facility] Date(s): 06/21/20 - 07/21/[address] [address]- Allergies, Adverse Reactions, Alerts Substance Reaction Severity [...] VIS 10/03 3Result Comment: [12/07/2016] diluent LOT [id number] EXP 03/29/2018 4Result Comment: [07/18/2016] Liquid component: [id number], exp.: 05/2017 5Admin Note: VIS 12/13/2006 6Admin Note: vis 10/30/11 7Admin Note: vis [id number] 8Admin Note: done at [facility] this past march 9Admin Note: VIS GIVEN 2008- 10Admin Note: vis 11/25/06 Medications acetaminophen 500 mg oral tablet 1 tablet = 500 mg, By Mouth, 2 times a day, PRN for pain, take only if needed, # 60 tablet, 5 Refills, Maintenance, 04/17/19 10:49:00 EST, Tablet, [facility] - [place], [place] -, 172, cm, 04/17/19 9:42:00 EST, Height, 83.7, kg, 04/04/19 0:17:00 E... Start Date: 04/17/19 Stop Date: 10/14/19 Status: Ordered albuterol CFC free 90 mcg/inh inhalation aerosol See Instructions, # 18 Gm, Refills 5 Tot. Refills 5, INHALE 2 PUFFS BY MOUTH INTO THE lungs 4 (FOUR) TIMES DAILY NEEDED FOR SHORTNESS OF BREATH OR FOR WHEEZING, [facility] - [place], [place] - Start Date: 01/21/19 Status: Ordered Alcohol Pads See Instructions, # 50 each, Refills 11, Tot. Refills 11, Maintenance, E11.9 check BG daily, 12/05/18 7:49:59 EDT, Compound Start Date: 12/05/18 Status: Ordered amLODIPine 5 mg oral tablet 1 tablet, By Mouth, Daily, # 30 tablet, 11 Refills, Maintenance, 06/22/20 20:22:00 EST, [facility], 173, cm, 04/12/20 11:01:00 EST, [...] 07/14/19 Status: Ordered Talbert Elastic barrier strips #085823 Talbert Elastic barrier strips #239850, See Instructions, # 1 units, Refills 11, [...] 04/19/20 11:34:00 EST, Route to Pharmacy Electronically, [facility] [id number], 173, cm, 04/12/20 11:01:00 EST, Heigh... Start Date: 04/19/20 Stop Date: 11/15/20 Status: Ordered carvedilol 6.25 mg oral tablet 6.25 mg, 1, tablet, By Mouth, 2 times a day, # 60 tablet, Refills 2, Tot. Refills 2, Maintenance, 06/22/20 11:26:00 EST, Route to Pharmacy Electronically, [facility], [facility] [id number], 173, cm, 04/12/20 11:01:00 EST, Height, 86.8, kg... Start Date: 06/22/20 Stop Date: 09/20/20 Status: Ordered carvedilol 6.25 mg oral tablet 6.25 mg, 1, tablet, By Mouth, 2 times a day, # 60 tablet, Refills 11, Tot. Refills 11, Maintenance,06/22/20 21:17:00 EST, Route to Pharmacy Electronically, [facility], [facility] [id number], 173, cm, 04/12/20 11:01:00 EST, Height, 86.8,... Start Date: 06/22/20 Stop Date: 06/17/21 Status: Ordered cetirizine 10 mg oral tablet 1 tablet = 10 mg, By Mouth, Daily, PRN if needed for allergy symptoms, do not blister pack, # 90 tablet, 1 Refills, Maintenance, 04/19/20 11:34:00 EST, Tablet, [facility], [facility] [id number], 173, cm, 04/12/20 11:01:00 EST, Height, 86.... Start Date: 04/19/20 Stop Date: 10/16/20 Status: Ordered Colace Capsule 100 mg, 1, capsule, By Mouth, 2 times a day, Hold for loose stool, Refills 0, Maintenance, 208:50:00 EST, Partial fill upon patient request if the prescription is for a schedule II opioid drug. Start Date: 04/12/20 Status: Ordered coloplast #89064 pouch coloplast #51864 pouch, See Instructions, # 20 each, Refills 11, Tot. Refills 11, Maintenance, use as needed for ostomy care. 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 Fax to Andre ([facility]), 06/25/19 12:46:00 EST, Compound Start Date: 06/25/19 Status: Ordered coloplast #13869 pouch coloplast #96435 pouch, See Instructions, # 40 each, Refills 11, Tot. Refills 11, Maintenance, use as needed for ostomy care. 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 Fax to Andre ([facility]). disp 40 coloplast pouche... Start Date: 08/05/19 Status: Ordered coloplast 93495 convex 1 piece coloplast 87413 convex 1 piece, See Instructions, # 1 box, Refills 11, Tot. Refills 11, Maintenance, use for ostomy changes Dx- uc/ileostomy, 07/25/18 11:04:40 EDT, Compound Start Date: 07/25/18 Status: Ordered coloplast bags #56480 coloplast bags #51897, See Instructions, # 20 each, Refills 11, Tot. Refills 11, Maintenance, use as needed for ostomy care Dx. ileostomy Z93.2, 07/14/19 10:56:00 EDT, Compound Start Date: 07/14/19 Status: Ordered Compression Stockings See Instructions, # 4 each, Refills 1, Tot. Refills 1, Maintenance, knee high compression hose 20-30mm 4 pair dx bilateral leg edema. R60.0 pls fax to [facility], 05/12/19 14:02:00 EST, Compound Start Date: [...] USE, # 100 Gm, 5 Refills, Maintenance, [facility], 30, APPLY TO PAINFUL KNEES [...] 11 Refills, Maintenance, 07/29/19 11:40:00 EDT, Tablet, [place], [place] -, 172, cm, 06/25/19 10:26:00 EST, [...] 0 Refills, Maintenance, 04/19/20 11:35:00 EST, Tablet, [place], [place] - [id number], 173, cm, 04/12/2011:01:00 EST, Height, 86.8, kg, 04/07/20 8:07:00 ES... Start Date: 04/19/20 Stop Date: 04/14/21 Status: Ordered LifeLine LifeLine, See Instructions, # 1 each, Refills 0, Tot. Refills 0, Maintenance, use to call for help in the home as directed length of need 99 B20, F32.9, F11.2 Pt address/#: [address] [place] [address], [address]. [phone] Critical Signal... Start Date: 01/15/18 Status: Ordered [...] Date: 09/12/18 Status: Ordered No-nsting skin prep #[id number] No-nsting skin prep #95843752, See Instructions, # 1 bottle, Refills 11, Tot. Refills 11, Maintenance, Use as needed for ostomy care Dx: colostomy, 01/31/18 11:44:14 EDT, Compound Start Date: 01/31/18 Status: Ordered omeprazole 20 mg oral enteric coated capsule 1 capsule = 20 mg, By Mouth, Daily, PRN only if needed for acid reflux symptoms, # 90 capsule, 0 Refills, Maintenance, 04/19/20 11:34:00 EST, EC Capsule, [place], [place] - [id number], 173, cm, 04/12/20 11:01:00 EST, Height, 86.8, [...] tablet, 11 Refills, Maintenance, 06/22/20 20:22:00 EST, [facility], 173, cm, 04/12/20 11:01:00 EST, [...] mg sublingual film 1.5 film, Sublingual, Daily, [id number] MassPATchecked. dissolve under tongue, # 42 film, 0 Refills,Maintenance, 07/19/20 11:29:00 EDT, [facility] [place], [place] - [id number], 1.5 film Sublingual Daily,x28 days,Instr:[id number]; MassPATchec... Start Date: 07/19/20 Stop Date: 08/16/20 Status: Ordered traZODone 100 mg oral tablet 1, tablet, By Mouth, Daily at bedtime, PRN, # 30 tablet, Refills 11, Tot. Refills 0, Maintenance, NEEDED FOR insomnia, 07/19/19 17:09:00 EDT, Route to Pharmacy Electronically, [facility], 172, cm, 06/25/19 10:26:00 EST, Height, 83.7, kg, 04/04... Start Date: 07/19/19 Status: Ordered Triumeq oral tablet 1 tablet, By Mouth, Daily, # 30 tablet, 11 Refills, Maintenance, 07/29/19 11:40:00 EDT, Tablet, [facility] - [place], [place] -, 1 tablet By Mouth Daily,x30 days, 172, cm, 06/25/19 10:26:00 EST, Height, 83.7, kg, 04/04/19 0:17:00 EST, Dry Weight Start Date: 07/29/19 Stop Date: 07/23/20 Status: Ordered Unisolve adhesive remover #008215 Unisolve adhesive remover #641435, See Instructions, # 1 box, Refills 11, Tot. Refills 11, Maintenance, To remove appliance at every change Dx Ulcerative Colitis, 01/31/18 11:44:15 EDT, Compound Start Date: 01/31/18 Status: Ordered warfarin 1 mg oral tablet See Instructions, Take 1-10 tablets By Mouth Daily as directed by [facility]OS, # 150 tablet, 0 Refills, Maintenance, 04/12/20 8:51:00 EST, Tablet, [facility], Partial fill upon patient requestif the [...] inguinal pain(Confirmed) Active 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) Active *[phone] Care Partn er-Jesica Jeter(Confirmed) Active traumatic splenectomy [...]
--- OUTSIDE RECORDS SUMMARY | 2022-12-18 06:30 | XMS_ITS | Continuity of Care Document ---
Author Name Unknown Organization [facility] Address [address] [place] [address]- Care Team Providers Care Marine Driller Name Role Phone Laly FERNANEDZ, Noemi Marshall Primary Care Physician [facility]counter [facility] Date(s): 12/02/20 - 01/01/[address] [address]- Allergies, Adverse Reactions, Alerts Substance Reaction Severity [...] VIS 10/03 4Result Comment: [12/07/2016] diluent LOT [id number] EXP 03/29/2018 5Result Comment: [07/18/2016] Liquid component: [id number], exp.: 05/2017 6Admin Note: VIS 12/13/2006 7Admin Note: vis 10/30/11 8Admin Note: vis [id number] 9Admin Note: done at [facility] this past march 10Admin Note: VIS GIVEN 2008- 11Admin Note: vis 11/25/06 Medications acetaminophen 500 mg oral tablet 1 tablet = 500 mg, By Mouth, 2 times a day, PRN for pain, take only if needed, # 60 tablet, 5 Refills, Maintenance, 04/17/19 10:49:00 EST, Tablet, [facility] - [place], [place] -, 172, cm, 04/17/19 9:42:00 EST, Height, 83.7, kg, 04/04/19 0:17:00 E... Start Date: 04/17/19 Stop Date: 10/14/19 Status: Ordered albuterol CFC free 90 mcg/inh inhalation aerosol 2, puffs, Inhalation, 4 times a day, PRN, # 1 each, Refills 1, Tot. Refills 1, Soft Stop, 12/07/20 11:08:00 EDT, Route to Pharmacy Electronically, [id number], [place], [place] - [id number], 172, cm, 12/07/20... Start Date: 12/07/20 Stop [...] 5 Refills, Maintenance, 11/05/20 12:56:00 EDT, Tablet, [place], [place] - [id number], Partial fill uponpatient request if the prescription is for a schedu... Start Date: 11/05/20 Status: Ordered apixaban 2.5 mg oral tablet 1 tablet = 2.5 mg, By Mouth, 2 times a day, # 60 tablet, 0 Refills, Maintenance, 07/30/20 9:38:00 EDT, Tablet, [facility], Partial fill upon patient request if [...] 07/14/19 Status: Ordered Talbert Elastic barrier strips #914114 Talbert Elastic barrier strips #344738, See Instructions, # 1 units, Refills 11, Tot. Refills 11, Maintenance, To remove appliance at every change Dx Ulcerative Colitis, 01/31/18 11:44:17 EDT, Compound Start Date: 01/31/18 Status: Ordered busPIRone 5 mg oral tablet 1, tablet, By Mouth, 3 times a day, FOR ANXIETY., # 270 tablet, Refills 1, Tot. Refills 0, Maintenance, 10/26/20 10:29:00 EDT, Route to Pharmacy Electronically, [facility], 172, cm, 07/30/20 16:38:00 EDT, Height, 89.7, kg, 07/29/20 7:42:00 EDT, D... Start Date: 10/26/20 Status: Ordered carvedilol 12.5 mg oral tablet 12.5 mg, 1, tablet, By Mouth, 2 times a day, increase in dose, # 60 tablet, Refills 11, Tot. Refills 11, Maintenance, 10/12/20 11:48:00 EDT, Route to Pharmacy Electronically, [facility] [place], [place] - [id number], Partial fill upon patient re... Start Date: 10/12/20 Stop Date: 10/07/21 Status: Ordered cetirizine 10 mg oral tablet 1 tablet, By Mouth, Daily, PRN NEEDED for allergy, # 90 tablet, 1 Refills, Maintenance, 10/26/2109:30:00 EDT, [facility], [...] drug. Start Date: 04/12/20 Status: Ordered coloplast #32599 pouch coloplast #33216 pouch, See Instructions, # 20 each, Refills 11, Tot. Refills 11, Maintenance, use as needed for ostomy care. 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 Fax to Andre ([facility]), 06/25/19 12:46:00 EST, Compound Start Date: 06/25/19 Status: Ordered coloplast #76079 pouch coloplast #61679 pouch, See Instructions, # 40 each, Refills 11, Tot. Refills 11, Maintenance, use as needed for ostomy care. 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 Fax to Andre ([facility]). disp 40 coloplast pouche... Start Date: 08/05/19 Status: Ordered coloplast 72662 convex 1 piece coloplast 39955 convex 1 piece, See Instructions, # 1 box, Refills 11, Tot. Refills 11, Maintenance, use for ostomy changes Dx- uc/ileostomy, 07/25/18 11:04:40 EDT, Compound Start Date: 07/25/18 Status: Ordered coloplast bags #77592 coloplast bags #50103, See Instructions, # 20 each, Refills 11, Tot. Refills 11, Maintenance, use as needed for ostomy care Dx. ileostomy Z93.2, 07/14/19 10:56:00 EDT, Compound Start Date: 07/14/19 Status: Ordered Compression Stockings See Instructions, # 4 each, Refills 1, Tot. Refills 1, Maintenance, knee high compression hose 20-30mm 4 pair dx bilateral leg edema. R60.0 pls fax to [facility], 05/12/19 14:02:00 EST, Compound Start Date: [...] 11 Refills, Maintenance, 07/23/20 12:00:00 EDT, Tablet, [place], [place] - [id number], 173, cm, 07/19/20 10:52:00 EDT, Height, 86.8, [...] 07/18/21 12:01:00 EDT, 07/23/20 12:01:00 EDT, Tablet, [place], [place] - [id number], 173, cm, 07/19/20 10:52:00 EDT, Hei... Start Date: 07/23/20 Stop Date: 07/18/21 Status: Ordered LifeLine LifeLine, See Instructions, # 1 each, Refills 0, Tot. Refills 0, Maintenance, use to call for help in the home as directed length of need 99 B20, F32.9, F11.2 Pt address/#: [address] [place] [address], [address]. [phone] Critical Signal... Start Date: 01/15/18 Status: Ordered [...] Date: 09/12/18 Status: Ordered No-nsting skin prep #20430521 No-nsting skin prep #51146196, See Instructions, # 1 bottle, Refills 11, Tot. Refills 11, Maintenance, Use as needed for ostomy care Dx: colostomy, 01/31/18 11:44:14 EDT, Compound Start Date: 01/31/18 Status: Ordered omeprazole 20 mg oral enteric coated capsule 1 capsule = 20 mg, By Mouth, Daily, PRN only if needed for acid reflux symptoms, # 90 capsule, 1 Refills, Maintenance, 07/23/20 12:01:00 EDT, EC Capsule, [place], [place] - [id number], 173, cm, 07/19/20 10:52:00 EDT, Height, 86.8, [...] mg sublingual film 2 film, Sublingual, Daily, [id number] MassPATchecked. dissolve under tongue, # 56 film, 0 Refills, Maintenance, 12/08/20 23:01:00 EDT, [facility] [id number], fill on 12/13/20-due date, 2 film Sublingual Daily,x28 days,Instr:X... Start Date: 12/08/20 Stop Date: 01/05/21 Status: Ordered traZODone 100 mg oral tablet 1, tablet, By Mouth, Daily at bedtime, PRN, # 30 tablet, Refills 11, Tot. Refills 0, Maintenance, NEEDED FOR insomnia, 07/23/20 12:03:00 EDT, Route to Pharmacy Electronically, [facility], 173, cm, 07/19/20 10:52:00 EDT, Height, 86.8, kg, 04/07... Start Date: 07/23/20 Status: Ordered Triumeq oral tablet 1 tablet, By Mouth, Daily, # 30 tablet, 11 Refills, Maintenance, 07/23/20 12:00:00 EDT, Tablet, [place], [place] - [id number], 1 tablet By Mouth Daily,x30 days, 173, cm, 07/19/20 10:52:00 EDT, Height, 86.8, kg, 04/07/20 8:07:00 EST, D... Start Date: 07/23/20 Stop Date: 07/18/21 Status: Ordered Unisolve adhesive remover #850209 Unisolve adhesive remover #019204, See Instructions, # 1 box, Refills 11, [...] inguinal pain(Confirmed) Active 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) Active *[phone] Care Partn krysten-Jesica Jeter(Confirmed) Active traumatic splenectomy [...]
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
--- OUTSIDE RECORDS SUMMARY | 2022-12-18 06:30 | XMS_ITS | Continuity of Care Document ---
Author Name Unknown Organization [facility] [place] Address [address] [place] [address]- Care Team Providers Care Supervisor Elementary Education Name Role Phone Noemi Ruffin MD, I Primary Care Physician [phone] Encounter [facility] Date(s): 07/05/22 - 08/04/22 [facility] [place] [address] [place] [address]- Attending Physician: Jorge A Sutton Admitting Physician: AdmtrJorge A Referring Physician: Admtr, Ar8 Allergies, Adverse Reactions, Alerts Substance Reaction Severity Status ampicillin Active aspirin BLEEDING Persistent Severe Active NSAIDs bleeding Persistent Severe Active Pollen NASAL CONGESTION SNEEZING Persistent Mode rate Active Immunizations Given and Recorded Vaccine Date Status Refusal Reason [id number] 12y+ bivalent booster vax 02/02/22 Recorded SARS-CoV-2 [...] VIS 10/03 4Result Comment: [12/07/2016] diluent LOT [id number] EXP 03/29/2018 5Result Comment: [07/18/2016] Liquid component: [id number], exp.: 05/2017 6Admin Note: VIS 12/13/2006 7Admin Note: vis 10/30/11 8Admin Note: vis [id number] 9Admin Note: done at [facility] this past march 10Admin Note: VIS GIVEN 2008- 11Admin Note: vis 11/25/06 Medications acetaminophen 500 mg oral tablet 1 tablet, By Mouth, 4 times a day, PRN NEEDED FOR PAIN, TAKE ONLY IF needed, # 100 tablet, 5 Refills, Maintenance, 04/14/22 15:58:00 EST, [place], [place] - [id number], 167, cm, 04/10/22 11:48:00 EST, Height, 89.9, kg, 05/25/21 10:... Start Date: 04/14/22 Status: Ordered Albuterol (Eqv-ProAir HFA) 90 mcg/inh inhalation aerosol 2 puffs, Inhalation, 4 times a day, PRN NEEDED FOR SHORTNESS OF BREATH OR FOR WHEEZING, # 25.5 Gm, 5 Refills, [facility], 4, INHALE 2 PUFFS BY [...] tablet, 5 Refills, Maintenance, 06/26/22 22:22:00 EST, [facility], 167, cm, 04/10/22 11:48:00 EST, [...] 09/09/21 Status: Ordered Talbert Elastic barrier strips #875538 Talbert Elastic barrier strips #770663, See Instructions, # 120 each, Refills 11, [...] 07/24/22 17:21:00 EDT, Route to Pharmacy Electronically, [facility], 167, cm, 04/10/22 11:48:00 EST, Height, 89.9, kg, 05/25/21 10:21:00 EST, Start Date: 07/24/22 Status: Ordered carvedilol 12.5 mg oral tablet 1, tablet, By Mouth, 2 times a day, # 180 tablet, Refills 1, Maintenance, 06/26/22 22:23:00 EST, Route to Pharmacy Electronically, [facility], 167, cm, 04/10/22 11:48:00 EST, Height, 89.9, kg, 05/25/21 10:21:00 EST, Dry Weight Start Date: 06/26/22 Status: Ordered cetirizine 10 mg oral tablet 1 tablet, By Mouth, Daily, PRN NEEDED FOR FOR ALLERGY, # 90 tablet, 1 Refills, 02/23/22 14:13:00EDT, [facility] - [place], [place] - [id number], 167, cm, 08/08/21 11:18:00 EDT, Height, 89.9, kg, 05/25/21 10:21:00 EST, Dry Weight Start Date: 02/23/22 Status: Ordered coloplast #21439 pouch coloplast #38918 pouch, See Instructions, # 20 each, Refills 11, Tot. Refills 11, Maintenance, use as needed for ostomy care. 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 Fax to [facility]), 06/25/19 12:46:00 EST, Compound Start Date: 06/25/19 Status: Ordered coloplast #94713 pouch coloplast #84129 pouch, See Instructions, # 40 each, Refills 11, Tot. Refills 11, Maintenance, use as needed for ostomy care. 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 Fax to [facility] ([facility]). disp 40 coloplast pouche... Start Date: 08/05/19 Status: Ordered coloplast 24409 convex 1 piece coloplast 97678 convex 1 piece, See Instructions, # 1 box, Refills 11, Tot. Refills 11, Maintenance, use for ostomy changes Dx- uc/ileostomy, 07/25/18 11:04:40 EDT, Compound Start Date: 07/25/18 Status: Ordered coloplast bags #46851 coloplast bags #05967, See Instructions, # 20 each, Refills 11, [...] bilateral leg edema. R60.0 pls fax to [facility], 05/12/19 14:02:00 EST, Compound Start Date: [...] Gm, 5 Refills, Maintenance, 06/27/22 16:38:00 EST, [facility], 30, APPLY TO PAINFUL KNEES 1 TO 2 TIMES A DAY maximum. WASH HANDS AFTER USE, 167, cm,... Start Date: 06/27/22 Status: Ordered Dovato 50 mg-300 mg oral tablet 1 tablet, By Mouth, Daily, *pharmacy: please change triumeq to dovato with the next monthly medication delivery., # 30 tablet, 11 Refills, Maintenance, 04/21/22 14:15:00 EST, Tablet, [facility] - [place], [place] - [id number], Partial fill upon pa... Start Date: 04/21/22 [...] tablet, 11 Refills, Maintenance, 06/27/22 16:38:00 EST, [facility], 167, cm, 04/10/22 11:48:00 [...] tablet, 2 Refills, Maintenance, 05/27/22 4:01:00 EST, [facility], 167, cm, 04/10/22 11:48:00 EST, [...] 11 Refills, Maintenance, 07/07/22 11:45:00 EST, Tablet, [facility] - [place], [place] - [id number], Partial fill upon patient request if the prescription is for a schedule II opioid drug., 167,... Start Date: 07/07/22 Status: Ordered LifeLine LifeLine, See Instructions, # 1 each, Refills 0, Tot. Refills 0, Maintenance, use to call for help in the home as directed length of need 99 B20, F32.9, F11.2 Pt address/#: [address] [facility] [address], [address]. [phone] Critical Signal... Start Date: 01/15/18 Status: Ordered [...] Date: 09/12/18 Status: Ordered No-nsting skin prep #[id number] No-nsting skin prep #09272821, See Instructions, # 1 bottle, Refills 11, Tot. Refills 11, Maintenance, Use as needed for ostomy care Dx: colostomy, 01/31/18 11:44:14 EDT, Compound Start Date: 01/31/18 Status: Ordered omeprazole 40 mg oral enteric coated capsule 1 capsule, By Mouth, 2 times a day, # 60 capsule, 1 Refills, Maintenance, 07/24/22 17:23:00 EDT, [facility], 167, cm, 04/10/22 11:48:00 EST, [...] tablet, 1 Refills, Maintenance, 06/26/22 22:24:00 EST, [facility], 167, cm, 04/10/22 11:48:00 EST, [...] tablet, 11 Refills, Maintenance, 05/29/22 18:56:00 EST, [facility], 167, cm, 04/10/22 11:48:00 [...] mg sublingual film 3 film, Sublingual, Daily, Laly [id number] MassPATchecked. dissolve under tongue, # 84 film, 0 Refills, Maintenance, 07/14/22 9:48:00 EDT, [facility] [id number], increase in dose from 16 mg to 24 mg daily, 3 film Subling... Start Date: 07/14/22 Stop Date: 08/11/22 Status: Ordered traZODone 100 mg oral tablet 1, tablet, By Mouth, Daily at bedtime, PRN, # 90 tablet, Refills 1, Maintenance, NEEDED FOR insomnia, 06/27/22 16:38:00 EST, Route to Pharmacy Electronically, [facility], 167, cm, 04/10/22 11:48:00 EST, Height, 89.9, kg, 05/25/21 10:21:00 EST,... Start Date: 06/27/22 Status: Ordered Trulicity Pen 0.75 mg/0.5 mL subcutaneous solution 0.5 mL = 0.75 mg, Subcutaneous Injection, Every week, rotate injection sites, # 2 mL, 11 Refills, Maintenance, 07/07/22 11:45:00 EST, Solution, [facility] [id number], Partialfill upon patient request if the prescription is fo... 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/2020 Confirmed Active Hyperlipidemia Confirmed Active Hypertension Confirmed Active Right inguinal pain Confirmed Active NIDDM in obese Confirmed Active *[phone] Toddler Nanny Nitin Hancock Confirmed Active SLAC (scapholunate advanced [...] Care team information Care Team Personnel Name: Maru Grey NP Position: [facility] PCO Associate Professional Member Role: Primary Care Nurse Address: Address: [address] [place] [address]- Name: Arianne George RN Position: S RN Member Role: Primary Care Nurse Name: Radha Ewing RN Position: S RN Member Role: Primary Care Nurse Name: Macey Trevino RN Position: [facility] PCO RN Member Role: Primary Care Nurse Name: Nesha Leigh RN Position: [facility] SN RN Member Role: Primary Care Nurse Name: Alanna Ashby RN Position: [facility] RN Member Role: Primary Care Nurse Name: Loren Jimenez RN Position: [facility] RN Member Role: Primary Care Nurse Name: Starr Poon RN Position: [facility] SN RN Member Role: Primary Care Nurse Name: Vilma Perez RN Position: [facility] MR W/ Merge Member Role: Primary Care Nurse Name: John Noguera RN Position: [facility] RN Member Role: Primary Care Nurse Name: Noemi Ruffin MD, I Position: [facility] Primary Care Physician Member Role: PCP Address: Address: [address] [place] [address]- [place] Name: Dunia Arechiga RN Position: [facility] RN Member Role: Primary Care Nurse Name: Kamilah Baron Position: [facility] PCO TA Member Role: Primary Care Nurse Name: Ro Lopez RN Position: [facility] RN Member Role: Primary Care Nurse Name: Kosta Braun III, RN Position: [facility] RN Member Role: Primary Care Nurse Name: Lauryn Jiménez RN Position: [facility] Household Appliance Installer Member Role: Primary Care Nurse Name: Jorge Ching RN Position: [facility] RN Member Role: Primary Care Nurse Name: Valarie Srivastava RN Position: [facility] RN Member Role: Primary Care Nurse Name: Monica Jacobs RN Position: [facility] RN Member Role: Primary Care Nurse Name: Johanna Castaneda RN Position: [facility] RN Member Role: Primary Care Nurse Address: Address: [address] [place] [address]- [place] Name: Luisa Zavaleta RN Position: [facility] AMB Nurse Member Role: Primary Care Nurse Name: Yulissa Mora RN Position: [facility] SN RN Member Role: Primary Care Nurse Name: Francine Abrams RN Position: [facility] RN Member Role: Primary Care Nurse Name: Shea Marinelli RN Position: [facility] RN Member Role: Primary Care Nurse Care Team Related Persons Name: PEGGY GARDNER Address: home [address] [place] [address] Name: JLUIS WHITE STAGE NAME Name: ADIA WINTERS
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
--- OUTSIDE RECORDS SUMMARY | 2022-12-18 06:30 | XMS_ITS | Continuity of Care Document ---
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 Name Role Phone Mora Gooden MD Primary Care Physician Encounter [facility] Date(s): 11/03/22 - 12/03/[address] [address]- Allergies, Adverse Reactions, Alerts Substance Reaction Severity Status ampicillin Active aspirin BLEEDING Persistent Severe Active Pollen NASAL CONGESTION SNEEZING Persistent Mode rate Active NSAIDs bleeding Persistent Severe Active Immunizations Given and Recorded Vaccine Date Status Refusal Reason [id number] 12y+ bivalent booster vax 02/02/22 Recorded SARS-CoV-2 (COVID-19) mRNA-1273 vaccine 09/13/21 R ecorded SARS-CoV-2 (COVID-19) mRNA BNT-162b2 vac 05/17/21 Given SARS-CoV-2 (COVID-19) mRNA BNT-162b2 vac 12/07/20 Given SARS-CoV-2 (COVID-19) Ad26 vaccine 1 07/21/20 Sundar rded meningococcal group B vaccine 03/15/20 Given meningococcal group B vaccine 11/25/19 Given influenza virus vaccine, inactivated 03/15/20 Give n influenza virus vaccine, inactivated 02/01/20 Sundar rded influenza virus vaccine, inactivated 06/25/19 Give n influenza virus vaccine, inactivated 01/31/18 Give n influenza virus vaccine, inactivated 02/08/17 Give n influenza virus vaccine, inactivated 02/08/16 Give n influenza virus vaccine, inactivated 01/28/15 Give n influenza virus vaccine, inactivated 02/18/14 Give n influenza virus vaccine, inactivated 02/18/14 Give n influenza virus vaccine, inactivated 10/18/13 Give n influenza virus vaccine, inactivated 02/27/08 [...] VIS 10/03 4Result Comment: [12/07/2016] diluent LOT [id number] EXP 03/29/2018 5Result Comment: [07/18/2016] Liquid component: [id number], exp.: 05/2017 6Admin Note: VIS 12/13/2006 7Admin Note: vis 10/30/11 8Admin Note: vis [id number] 9Admin Note: done at [facility] this past march 10Admin Note: VIS GIVEN 2008- 11Admin Note: vis 11/25/06 Medications acetaminophen 500 mg oral tablet 1 tablet, By Mouth, 4 times a day, PRN NEEDED FOR PAIN, TAKE ONLY IF needed, # 100 tablet, 11 Refills, Maintenance, 10/06/22 14:19:00 EDT, [facility], 167, cm, 08/01/22 10:08:00 EDT, Height, 89.9, kg, 05/25/21 10:21:00 EST, Dry Weight Start Date: 10/06/22 Status: Ordered Albuterol (Eqv-ProAir HFA) 90 mcg/inh inhalation aerosol 2 puffs, Inhalation, 4 times a day, PRN NEEDED FOR SHORTNESS OF BREATH OR FOR WHEEZING, # 25.5 Gm, 5 Refills, [facility], 4, INHALE 2 PUFFS BY MOUTH [...] 09/09/21 Status: Ordered Talbert Elastic barrier strips #829430 Talbert Elastic barrier strips #855262, See Instructions, # 120 each, Refills 11, Tot. Refills 11, Maintenance, Dx: K51; Z93. 3 sig: use 4 strips a day with ostomy bag. disp: 4 bags of 30 strips = 120 strips per month. Fax to [facility] [phone], 07... Start Date: 11/09/22 Status: Ordered busPIRone 5 mg oral tablet 1, tablet, By Mouth, 3 times a day, PRN, # 270 tablet, Refills 1, Maintenance, NEEDED FOR ANXIETY, 07/24/22 17:21:00 EDT, Route to Pharmacy Electronically, [facility], 167, cm, 04/10/22 11:48:00 EST, Height, 89.9, kg, 05/25/21 10:21:00 EST, Start Date: 07/24/22 Status: Ordered carvedilol 12.5 mg oral tablet 1, tablet, By Mouth, 2 times a day, # 180 tablet, Refills 0, Tot. Refills 0, Maintenance, 11/17/22 10:57:00 EDT, Route to Pharmacy Electronically, [facility] [place], [place] - [id number], 167,cm, 10/10/22 10:21:00 EDT, Height, 89.9, kg, ... Start Date: 11/17/22 Status: Ordered cetirizine 10 mg oral tablet See Instructions, TAKE 1 TABLET BY MOUTH ONCE DAILY NEEDED for allergy, # 90 tablet, 1 Refills, Maintenance, 08/24/22 11:40:00 EDT, [facility], 167, cm, 08/01/22 10:08:00 EDT, Height, 89.9, kg, 05/25/21 10:21:00 EST, Dry Weight Start Date: 08/24/22 Status: Ordered coloplast #45587 pouch coloplast #28245 pouch, See Instructions, # 20 each, Refills 11, Tot. Refills 11, Maintenance, use as needed for ostomy care. 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 Fax to [facility] ([facility]), 06/25/19 12:46:00 EST, Compound Start Date: 06/25/19 Status: Ordered coloplast 64150 convex 1 piece coloplast 15298 convex 1 piece, See Instructions, # 1 box, Refills 11, Tot. Refills 11, Maintenance, use for ostomy changes Dx- uc/ileostomy, 07/25/18 11:04:40 EDT, Compound Start Date: 07/25/18 Status: Ordered coloplast bags #97363 coloplast bags #99013, See Instructions, # 20 each, Refills 11, [...] fax t... Start Date: 08/01/22 Status: Ordered contour next EZ lancets contour [...] Gm, 5 Refills, Maintenance, 06/27/22 16:38:00 EST, [facility], 30, APPLY TO PAINFUL KNEES 1 TO 2 TIMES A DAY maximum. WASH HANDS AFTER USE, 167, cm,... Start Date: 06/27/22 Status: Ordered Dovato 50 mg-300 mg oral tablet 1 tablet, By Mouth, Daily, *pharmacy: please change triumeq to dovato with the next monthly medication delivery., # 30 tablet, 11 Refills, Maintenance, 04/21/22 14:15:00 EST, Tablet, [facility] [place], [place] - [id number], Partial fill upon pa... Start Date: 04/21/22 [...] EDT, Supply Start Date: 08/01/22 Status: Ordered Gloves, size L Gloves, size L, See Instructions, # 4 each, Refills 11, Tot. Refills 11, Maintenance, Disp: 4 boxes/mo ICD 10 Z93. 3; K51 RICH 99 Fax to [facility] [phone], 09/28/22 14:39:00 EDT, Supply Start Date: 09/28/22 Status: Ordered hydrochlorothiazide 12.5 mg oral tablet See Instructions, TAKE 1 TABLET BY MOUTH ONCE DAILY, # 30 tablet, 5 Refills, Maintenance, 08/24/22 11:41:00 EDT, [place], [place] - [id number], 167, cm, 08/01/22 10:08:00 EDT, Height, 89.9, kg, 05/25/21 10:21:00 EST, Dry Weight Start Date: 08/24/22 Status: Ordered Imodium A-D 2 mg oral [...] 11 Refills, Maintenance, 07/07/22 11:45:00 EST, Tablet, [place], [place] - [id number], Partial fill upon patient request if the prescription is for a schedule II opioid drug., 167,... Start Date: 07/07/22 Status: Ordered LifeLine LifeLine, See Instructions, # 1 each, Refills 0, Tot. Refills 0, Maintenance, use to call for help in the home as directed length of need 99 B20, F32.9, F11.2 Pt address/#: [address] [place] [address], [address] [phone] Critical Signal... Start Date: 01/15/18 Status: Ordered [...] Date: 09/12/18 Status: Ordered No-nsting skin prep #34794247 No-nsting skin prep #42665103, See Instructions, # 1 bottle, Refills 11, Tot. Refills 11, Maintenance, Use as needed for ostomy care Dx: colostomy, 01/31/18 11:44:14 EDT, Compound Start Date: 01/31/18 Status: Ordered omeprazole 40 mg oral enteric coated capsule 1 capsule, By Mouth, 2 times a day, # 60 capsule, 11 Refills, Maintenance, 09/21/22 16:32:00 EDT, [facility], 167, cm, 08/01/22 10:08:00 EDT, Height, 89.9, kg, 05/25/21 10:21:00 EST, Dry Weight Start Date: 09/21/22 Status: Ordered Ostomy deodorizer liquid Ostomy deodorizer [...] EDT, Supply Start Date: 09/09/21 Status: Ordered polyethylene glycol 3350 oral powder for reconstitution See Instructions, DISSOLVE 17GM IN WATER BEFORE TAKING. TAKE WHILE ON SUBOXONE, # 510 Gm, 5 Refills, Maintenance, 08/24/22 15:20:00 EDT, [facility], 30, DISSOLVE 17GM IN WATER BEFORE TAKING. TAKE WHILE ON SUBOXONE, 167, cm, 08/01/22 10:08:00 EDT,... Start Date: 08/24/22 Status: Ordered pravastatin 40 mg oral tablet 1 tablet, By Mouth, Daily at bedtime, # 90 tablet, 1 Refills, Maintenance, 06/26/22 22:24:00 EST, [facility], 167, cm, 04/10/22 11:48:00 EST, [...] care z43.... Start Date: 08/01/22 Status: Ordered Ready Bath Disposable Wipes Ready Bath Disposable Wipes, See Instructions, # 24 each, Refills 11, Tot. Refills 11, Maintenance,Disp: 24 packages per 30d ICD 10 Z93. 3; K51 Fax to [facility], 09/07/22 15:51:00 EDT, Supply Start Date: 09/07/22 Status: Ordered Recliner seat Recliner seat, See [...] tablet, 11 Refills, Maintenance, 05/29/22 18:56:00 EST, [facility], 167, cm, 04/10/22 11:48:00 EST, [...] mg sublingual film 3 film, Sublingual, Daily, Fill on/after 10/05/2022 MassPATchecked. dissolve under tongue, # 90 film,1 Refills, Maintenance, 10/04/22 15:34:00 EDT, [facility] - [place], [place] - [id number], 3 film Sublingual Daily,x30 days,Instr:Fill on/after 6... Start Date: 10/04/22 Stop Date: 12/03/22 Status: Ordered traZODone 100 mg oral tablet 1, tablet, By Mouth, Daily at bedtime, PRN, # 90 tablet, Refills 1, Maintenance, NEEDED FOR insomnia, 06/27/22 16:38:00 EST, Route to Pharmacy Electronically, [facility], 167, cm, 04/10/22 11:48:00 EST, Height, 89.9, kg, 05/25/21 10:21:00 EST,... Start Date: 06/27/22 Status: Ordered Trulicity Pen 0.75 mg/0.5 mL subcutaneous solution 0.5 mL = 0.75 mg, Subcutaneous Injection, Every week, rotate injection sites, # 2 mL, 11 Refills, Maintenance, 07/07/22 11:45:00 EST, Solution, [facility] - [place], [place] - [id number], Partialfill upon patient request if the prescription is fo... 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 Confirmed Active Hyperlipidemia Confirmed Active Hypertension Confirmed Active Right inguinal pain Confirmed Active NIDDM in obese Confirmed Active Osteoarthritis of both hands Confirmed Active *[phone]-Genoveva katie Harris Confirmed Active SLAC (scapholunate advanced collapse) wrist [...] team information Care Team Personnel Name: Que TAVERA Maru M Position: [facility] PCO Associate Professional Member Role: Primary Care Nurse Address: Address: [address] [place] [address] [place] [address]- Name: Arianne George RN Position: [facility] RN Member Role: Primary Care Nurse Name: Radha Ewing RN Position: [facility] RN Member Role: Primary Care Nurse Name: Macey Trevino RN Position: [facility] AMB Nurse Member Role: Primary Care Nurse Name: Nesha Leigh RN Position: [facility] SN RN Member Role: Primary Care Nurse Name: Alanna Ashby RN Position: [facility] RN Member Role: Primary Care Nurse Name: Loren Jimenez RN Position: [facility] RN Member Role: Primary Care Nurse Name: Starr Poon RN Position: [facility] SN RN Member Role: Primary Care Nurse Name: Vilma Perez RN Position: [facility] MR W/ Merge Member Role: Primary Care Nurse Name: John Noguera RN Position: [facility] RN Member Role: Primary Care Nurse Name: Dunia Arechiga RN Position: [facility] RN Member Role: Primary Care Nurse Name: Kamilah Baron Position: [facility] PCO TA Member Role: Primary Care Nurse Name: Ro Lopez RN Position: [facility] RN Member Role: Primary Care Nurse Name: Kosta Braun III, RN Position: [facility] RN Member Role: Primary Care Nurse Name: Lauryn Jiménez RN Position: [facility] Hospital Poker Manager Member Role: Primary Care Nurse Name: Jorge Ching RN Position: [facility] RN Member Role: Primary Care Nurse Name: Valarie Srivastava RN Position: [facility] RN Member Role: Primary Care Nurse Name: Monica Jacobs RN Position: [facility] RN Member Role: Primary Care Nurse Name: Johanna Castaneda RN Position: [facility] RN Member Role: Primary Care Nurse Address: Address: [address] [place] [address]- Name: Luisa Zavaleta RN Position: [facility] AMB Nurse Member Role: Primary Care Nurse Name: Yulissa Mora RN Position: [facility] SN RN Member Role: Primary Care Nurse Name: Francine Abrams RN Position: [facility] RN Member Role: Primary Care Nurse Name: Shea Marinelli RN Position: [facility] RN Member Role: Primary Care Nurse Name: Mora Gooden MD Position: [facility] Physician - Primary Care Member Role: PCP Address: Address: [address] [place] [address]- [place] Care Team Related Persons Name: PEGGY GARDNER Address: home [address] [place] [address] Name: JLUIS WHITE STAGE NAME Name: ADIA WINTERS
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
--- OUTSIDE RECORDS SUMMARY | 2022-12-18 06:31 | XMS_ITS | Continuity of Care Document ---
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 Name Role Phone Noemi Ruffin MD, I Primary Care Physician [facility]counter [facility] Date(s): 05/17/22 - 06/16/[address] [address]- Allergies, Adverse Reactions, Alerts Substance Reaction Severity Status ampicillin Active aspirin BLEEDING Persistent Severe Active Pollen NASAL CONGESTION SNEEZING Persistent Mode rate Active NSAIDs bleeding Persistent Severe Active Immunizations Given and Recorded Vaccine Date Status Refusal Reason [id number] 12y+ bivalent booster vax 02/02/22 Recorded SARS-CoV-2 [...] VIS 10/03 4Result Comment: [12/07/2016] diluent LOT [id number] EXP 03/29/2018 5Result Comment: [07/18/2016] Liquid component: [id number], exp.: 05/2017 6Admin Note: VIS 12/13/2006 7Admin Note: vis 10/30/11 8Admin Note: vis [id number] 9Admin Note: done at [facility] this past march 10Admin Note: VIS GIVEN 2008- 11Admin Note: vis 11/25/06 Medications acetaminophen 500 mg oral tablet 1 tablet, By Mouth, 4 times a day, PRN NEEDED FOR PAIN, TAKE ONLY IF needed, # 100 tablet, 5 Refills, Maintenance, 04/14/22 15:58:00 EST, [place], [place] - [id number], 167, cm, 04/10/22 11:48:00 EST, Height, 89.9, kg, 05/25/21 10:... Start Date: 04/14/22 Status: Ordered Albuterol (Eqv-ProAir HFA) 90 mcg/inh inhalation aerosol 2 puffs, Inhalation, 4 times a day, PRN NEEDED FOR SHORTNESS OF BREATH OR FOR WHEEZING, # 25.5 Gm, 5 Refills, [facility], 4, INHALE 2 PUFFS [...] 07/26/21 14:15:00 EDT, Route to Pharmacy Electronically, [place], [place] - [id number], Partial fill upon patient request if the [...] 09/09/21 Status: Ordered Talbert Elastic barrier strips #920359 Talbert Elastic barrier strips #679311, See Instructions, # 120 each, Refills 11, [...] Tot. Refills 1, Maintenance, NEEDED FOR ANXIETY, 01/26/22 18:01:00 EDT, Route to Pharmacy Electronically, [place], [place] - [id number], 167, cm, 08/08/21 11:18:00 E... Start Date: 01/26/22 Stop Date: 07/25/22 Status: Ordered carvedilol 12.5 mg oral tablet 1, tablet, By Mouth, 2 times a day, # 180 tablet, Refills 0, Tot. Refills 0, Maintenance, 03/27/22 6:13:00 EST, Route to Pharmacy Electronically, [place], [place] - [id number], Office visit needed for further refills., 167, cm, ... Start Date: 03/27/22 Status: Ordered cetirizine 10 mg oral tablet 1 tablet, By Mouth, Daily, PRN NEEDED FOR FOR ALLERGY, # 90 tablet, 1 Refills, 02/23/22 14:13:00EDT, [facility], [place] - [id number], 167, cm, 08/08/21 11:18:00 EDT, Height, 89.9, kg, 05/25/21 10:21:00 EST, Dry Weight Start Date: 02/23/22 Status: Ordered coloplast #38909 pouch coloplast #16486 pouch, See Instructions, # 20 each, Refills 11, Tot. Refills 11, Maintenance, use as needed for ostomy care. 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 Fax to [facility] ([facility]), 06/25/19 12:46:00 EST, Compound Start Date: 06/25/19 Status: Ordered coloplast #84260 pouch coloplast #59739 pouch, See Instructions, # 40 each, Refills 11, Tot. Refills 11, Maintenance, use as needed for ostomy care. 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 Fax to [facility] ([facility]). disp 40 coloplast pouche... Start Date: 08/05/19 Status: Ordered coloplast 63005 convex 1 piece coloplast 18426 convex 1 piece, See Instructions, # 1 box, Refills 11, Tot. Refills 11, Maintenance, use for ostomy changes Dx- uc/ileostomy, 07/25/18 11:04:40 EDT, Compound Start Date: 07/25/18 Status: Ordered coloplast bags #52831 coloplast bags #27974, See Instructions, # 20 each, Refills 11, Tot. Refills 11, Maintenance, use as needed for ostomy care Dx. ileostomy Z93.2 fax to [facility], 09/09/21 10:48:00 EDT, Compound Start Date: 09/09/21 Status: Ordered Compression Stockings See Instructions, # 4 each, Refills 1, Tot. Refills 1, Maintenance, knee high compression hose 20-30mm 4 pair dx bilateral leg edema. R60.0 pls fax to [facility], 05/12/19 14:02:00 EST, Compound Start Date: 05/12/19 [...] USE, # 100 Gm, 5 Refills, Maintenance, 12/29/21 18:49:00 EDT, [facility], 30, APPLY TO PAINFUL KNEES 1 TO 2 TIMES A DAY maximum. WASH HANDS AFTER USE, 167, cm,... Start Date: 12/29/21 Status: Ordered Dovato 50 mg-300 mg oral tablet 1 tablet, By Mouth, Daily, *pharmacy: please change triumeq to dovato with the next monthly medication delivery., # 30 tablet, 11 Refills, Maintenance, 04/21/22 14:15:00 EST, Tablet, [facility] [place], [place] - [id number], Partial fill upon pa... Start Date: 04/21/22 [...] a day, # 60 tablet, 11 Refills, [facility], 167, cm, 05/26/21 7:07:00 EST, Height, [...] tablet, 2 Refills, Maintenance, 05/27/22 4:01:00 EST, [facility], 167, cm, 04/10/22 11:48:00 [...] Pharmacy Electroni... Start Date: 04/10/22 Status: Ordered LifeLine LifeLine, See Instructions, # 1 each, Refills 0, Tot. Refills 0, Maintenance, use to call for help in the home as directed length of need 99 B20, F32.9, F11.2 Pt address/#: [address] [place] [address], [address]. [phone] Critical Signal... Start Date: 01/15/18 Status: Ordered Lokelma 10 g oral powder for reconstitution See Instructions, DISSOLVE THE CONTENT OF 1 PACKET IN WATER AND DRINK ONCE DAILY. DO NOT TAKE WITHIN 2 HOURS OF other MEDICATIONS, # 30 pack/packet, 5 Refills, Maintenance, 04/25/22 16:05:00 EST, [facility], 167, cm, 04/10/22 11:48:00 EST, Height... Start Date: 04/25/22 Status: Ordered no sting skin prep spray [...] Date: 09/12/18 Status: Ordered No-nsting skin prep #[id number] No-nsting skin prep #10721009, See Instructions, # 1 bottle, Refills 11, Tot. Refills 11, Maintenance, Use as needed for ostomy care Dx: colostomy, 01/31/18 11:44:14 EDT, Compound Start Date: 01/31/18 Status: Ordered omeprazole 40 mg oral enteric coated capsule 1 capsule, By Mouth, 2 times a day, # 60 capsule, 1 Refills, Maintenance, 05/27/22 4:01:00 EST, [facility], 167, cm, 04/10/22 11:48:00 EST, Height, 89.9, kg, 05/25/21 10:21:00 EST, Dry Weight Start Date: 05/27/22 Status: Ordered Ostomy deodorizer liquid Ostomy deodorizer [...] bedtime, # 90 tablet, 1 Refills, Maintenance, 12/29/21 10:31:00 EDT, [facility], 167, cm, 08/08/21 11:18:00 EDT, Height, 89.9, kg, 05/25/21 10:21:00 EST, Dry Weight Start Date: 12/29/21 Status: Ordered ready bath disposable WIPES ready [...] tablet, 11 Refills, Maintenance, 05/29/22 18:56:00 EST, [facility], 167, cm, 04/10/22 11:48:00 EST, Height, 89.9, kg, 05/25/21 10:21:00 EST, Dry Weight Start Date: 05/29/22 Status: Ordered sitaGLIPtin 25 mg oral tablet 1 tablet = 25 mg, By Mouth, Daily, pls note the lower dose., # 30 tablet, 11 Refills, Maintenance, 08/11/21 15:34:00 EDT, Tablet, [facility] [place], [place] - [phone], Partial fill upon patient request if the [...] sublingual film 3 film, Sublingual, Daily, Laly [id number] MassPATchecked. dissolve under tongue, # 84 film, 0 Refills, Maintenance, 06/15/22 16:49:00 EST, [facility] [place], [place] - [id number], increasein dose from 16 mg to 24 mg daily, 3 film Sublin... Start Date: 06/15/22 Stop Date: 07/13/22 Status: Ordered traZODone 100 mg oral tablet 1, tablet, By Mouth, Daily at bedtime, PRN, # 90 tablet, Refills 1, Maintenance, NEEDED FOR insomnia, 12/29/21 10:33:00 EDT, Route to Pharmacy Electronically, [facility], 167, cm, 08/08/21 11:18:00 EDT, Height, 89.9, kg, 05/25/21 10:21:00 EST,... 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 Nitin Hancock Confirmed Active [facility]AC (scapholunate advanced [...] Team Personnel Name: Maru Grey NP Position: [facility] PCO Associate Professional Member Role: Primary Care Nurse Address: Address: [address] [place] [address]- Name: Arianne George RN Position: [facility] RN Member Role: Primary Care Nurse Name: Radha Ewing RN Position: [facility] RN Member Role: Primary Care Nurse Name: Macey Trevino RN [facility] RN Member Role: Primary Care Nurse Name: Nesha Leigh RN Position: [facility] SN RN Member Role: Primary Care Nurse Name: Alanna Ashby RN Position: [facility] RN Member Role: Primary Care Nurse Name: Loren Jimenez RN Position: [facility] RN Member Role: Primary Care Nurse Name: Starr Poon RN Position: [facility] SN RN Member Role: Primary Care Nurse Name: Vilma Perez RN Position: [facility] MR W/ Merge Member Role: Primary Care Nurse Name: John Noguera RN Position: [facility] RN Member Role: Primary Care Nurse Name: Noemi Ruffin MD, I Position: [facility] Primary Care Physician Member Role: PCP Address: Address: [address] [place] [address]- [place] Name: Dunia Arechiga RN Position: [facility] RN Member Role: Primary Care Nurse Name: Kamilah Baron Position: [facility] PCO TA Member Role: Primary Care Nurse Name: Manuela Duvall RN Position: [facility] RN Member Role: Primary Care Nurse Name: Ro Lopez RN Position: [facility] RN Member Role: Primary Care Nurse Name: Kosta Braun III, RN Position: [facility] RN Member Role: Primary Care Nurse Name: Lauryn Jiménez RN Position: [facility] Hospital Ammonia Still Operator Member Role: Primary Care Nurse Name: Jorge Ching RN Position: [facility] RN Member Role: Primary Care Nurse Name: Valarie Srivastava RN Position: [facility] RN Member Role: Primary Care Nurse Name: Monica Jacobs RN Position: [facility] RN Member Role: Primary Care Nurse Name: Johanna Castaneda RN Position: [facility] RN Member Role: Primary Care Nurse Address: Address: [address] [place] [address] Name: Luisa Zavaleta RN Position: [facility] AMB Nurse Member Role: Primary Care Nurse Name: Yulissa Mora RN Position: [facility] SN RN Member Role: Primary Care Nurse Name: Francine Abrams RN Position: [facility] RN Member Role: Primary Care Nurse Name: Shea Marinelli RN Position: [facility] RN Member Role: Primary Care Nurse Care Team Related Persons Name: PEGGY GARDNER Address: [address] [place] [address] Name: JLUIS WHITE STAGE NAME Name: ADIA WINTERS
--- OUTSIDE RECORDS SUMMARY | 2022-12-18 06:31 | XMS_ITS | Continuity of Care Document ---
Author Name Unknown Organization [facility] Address [address] [place] [address]- Care Team Providers Care Athletic Coordinator Name Role Phone Laly FERNANDEZ, Noemi Marshall Primary Care Physician [facility] Date(s): 06/15/22 - 07/15/[address] [address]- Allergies, Adverse Reactions, Alerts Substance Reaction Severity Status ampicillin Active aspirin BLEEDING Persistent Severe Active NSAIDs bleeding Persistent Severe Active Pollen NASAL CONGESTION SNEEZING Persistent Mode rate Active Immunizations Given and Recorded Vaccine Date Status Refusal Reason [id number] 12y+ bivalent booster vax 02/02/22 Recorded SARS-CoV-2 [...] VIS 10/03 4Result Comment: [12/07/2016] diluent LOT [id number] EXP 03/29/2018 5Result Comment: [07/18/2016] Liquid component: [id number], exp.: 05/2017 6Admin Note: VIS 12/13/2006 7Admin Note: vis 10/30/11 8Admin Note: vis [id number] 9Admin Note: done at [facility] this past march 10Admin Note: VIS GIVEN 2008- 11Admin Note: vis 11/25/06 Medications acetaminophen 500 mg oral tablet 1 tablet, By Mouth, 4 times a day, PRN NEEDED FOR PAIN, TAKE ONLY IF needed, # 100 tablet, 5 Refills, Maintenance, 04/14/22 15:58:00 EST, [place], [place] - [id number], 167, cm, 04/10/22 11:48:00 EST, Height, 89.9, kg, 05/25/21 10:... Start Date: 04/14/22 Status: Ordered Albuterol (Eqv-ProAir HFA) 90 mcg/inh inhalation aerosol 2 puffs, Inhalation, 4 times a day, PRN NEEDED FOR SHORTNESS OF BREATH OR FOR WHEEZING, # 25.5 Gm, 5 Refills, [facility], 4, INHALE 2 PUFFS BY [...] tablet, 5 Refills, Maintenance, 06/26/22 22:22:00 EST, [facility], 167, cm, 04/10/22 11:48:00 EST, Height, [...] 09/09/21 Status: Ordered Talbert Elastic barrier strips #135881 Talbert Elastic barrier strips #165654, See Instructions, # 120 each, Refills 11, [...] 01/26/22 18:01:00 EDT, Route to Pharmacy Electronically, [facility] - [place], [place] - [id number], 167, cm, 08/08/21 11:18:00 E... Start Date: 01/26/22 Stop Date: 07/25/22 Status: Ordered carvedilol 12.5 mg oral tablet 1, tablet, By Mouth, 2 times a day, # 180 tablet, Refills 1, Maintenance, 06/26/22 22:23:00 EST, Route to Pharmacy Electronically, [facility], 167, cm, 04/10/22 11:48:00 EST, Height, 89.9, kg, 05/25/21 10:21:00 EST, Dry Weight Start Date: 06/26/22 Status: Ordered cetirizine 10 mg oral tablet 1 tablet, By Mouth, Daily, PRN NEEDED FOR FOR ALLERGY, # 90 tablet, 1 Refills, 02/23/22 14:13:00EDT, [place], [place] - [id number], 167, cm, 08/08/21 11:18:00 EDT, Height, 89.9, kg, 05/25/21 10:21:00 EST, Dry Weight Start Date: 02/23/22 Status: Ordered coloplast #76161 pouch coloplast #62964 pouch, See Instructions, # 20 each, Refills 11, Tot. Refills 11, Maintenance, use as needed for ostomy care. 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 Fax to Andre ([facility]), 06/25/19 12:46:00 EST, Compound Start Date: 06/25/19 Status: Ordered coloplast #32247 pouch coloplast #43524 pouch, See Instructions, # 40 each, Refills 11, Tot. Refills 11, Maintenance, use as needed for ostomy care. 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 Fax to Andre ([facility]). disp 40 coloplast pouche... Start Date: 08/05/19 Status: Ordered coloplast 54598 convex 1 piece coloplast 27791 convex 1 piece, See Instructions, # 1 box, Refills 11, Tot. Refills 11, Maintenance, use for ostomy changes Dx- uc/ileostomy, 07/25/18 11:04:40 EDT, Compound Start Date: 07/25/18 Status: Ordered coloplast bags #10938 coloplast bags #91499, See Instructions, # 20 each, Refills 11, Tot. Refills 11, Maintenance, use as needed for ostomy care Dx. ileostomy Z93.2 fax to [facility], 09/09/21 10:48:00 EDT, Compound Start Date: 09/09/21 Status: Ordered Compression Stockings See Instructions, # 4 each, Refills 1, Tot. Refills 1, Maintenance, knee high compression hose 20-30mm 4 pair dx bilateral leg edema. R60.0 pls fax to [facility], 05/12/19 14:02:00 EST, Compound Start Date: [...] Gm, 5 Refills, Maintenance, 06/27/22 16:38:00 EST, [facility], 30, APPLY TO PAINFUL KNEES 1 TO 2 TIMES A DAY maximum. WASH HANDS AFTER USE, 167, cm,... Start Date: 06/27/22 Status: Ordered Dovato 50 mg-300 mg oral tablet 1 tablet, By Mouth, Daily, *pharmacy: please change triumeq to dovato with the next monthly medication delivery., # 30 tablet, 11 Refills, Maintenance, 04/21/22 14:15:00 EST, Tablet, [facility] - [place], [place] - [id number], Partial fill upon pa... Start Date: 04/21/22 [...] tablet, 2 Refills, Maintenance, 05/27/22 4:01:00 EST, [facility], 167, cm, 04/10/22 11:48:00 EST, [...] 11 Refills, Maintenance, 07/07/22 11:45:00 EST, Tablet, [facility] - [place], [place] - [id number], Partial fill upon patient request if the prescription is for a schedule II opioid drug., 167,... Start Date: 07/07/22 Status: Ordered LifeLine LifeLine, See Instructions, # 1 each, Refills 0, Tot. Refills 0, Maintenance, use to call for help in the home as directed length of need 99 B20, F32.9, F11.2 Pt address/#: [address] [place] [address], [address]. [phone] Critical Signal... Start Date: 01/15/18 Status: Ordered Lokelma 10 g oral powder for reconstitution See Instructions, DISSOLVE THE CONTENT OF 1 PACKET IN WATER AND DRINK ONCE DAILY. DO NOT TAKE WITHIN 2 HOURS OF other MEDICATIONS, # 30 pack/packet, 5 Refills, Maintenance, 04/25/22 16:05:00 EST, [facility], 167, cm, 04/10/22 11:48:00 EST, [...] Date: 09/12/18 Status: Ordered No-nsting skin prep #[id number] No-nsting skin prep #[id number], See Instructions, # 1 bottle, Refills 11, Tot. Refills 11, Maintenance, Use as needed for ostomy care Dx: colostomy, 01/31/18 11:44:14 EDT, Compound Start Date: 01/31/18 Status: Ordered omeprazole 40 mg oral enteric coated capsule 1 capsule, By Mouth, 2 times a day, # 60 capsule, 1 Refills, Maintenance, 05/27/22 4:01:00 EST, [facility], 167, cm, 04/10/22 11:48:00 EST, [...] tablet, 1 Refills, Maintenance, 06/26/22 22:24:00 EST, [facility], 167, cm, 04/10/22 11:48:00 EST, [...] tablet, 11 Refills, Maintenance, 05/29/22 18:56:00 EST, [facility], 167, cm, 04/10/22 11:48:00 EST, [...] sublingual film 3 film, Sublingual, Daily, Laly [id number] MassPATchecked. dissolve under tongue, # 84 film, 0 Refills, Maintenance, 07/14/22 9:48:00 EDT, [facility] [id number], increase in dose from 16 mg to 24 mg daily, 3 film Subling... Start Date: 07/14/22 Stop Date: 08/11/22 Status: Ordered traZODone 100 mg oral tablet 1, tablet, By Mouth, Daily at bedtime, PRN, # 90 tablet, Refills 1, Maintenance, NEEDED FOR insomnia, 06/27/22 16:38:00 EST, Route to Pharmacy Electronically, [facility], 167, cm, 04/10/22 11:48:00 EST, Height, 89.9, kg, 05/25/21 10:21:00 EST,... Start Date: 06/27/22 Status: Ordered Trulicity Pen 0.75 mg/0.5 mL subcutaneous solution 0.5 mL = 0.75 mg, Subcutaneous Injection, Every week, rotate injection sites, # 2 mL, 11 Refills, Maintenance, 07/07/22 11:45:00 EST, Solution, [facility], [place] - [phone], Partialfill upon patient request if the prescription is fo... Start Date: 07/07/22 Status: Ordered Unisolve adhesive remover #891266 Unisolve adhesive remover #927358, See Instructions, # 1 box, Refills 11, [...] Confirmed Active Obese class II Confirmed Active *[id number] Oracle Specialist Nitin Hancock Confirmed Active [facility] (scapholunate advanced [...] Member Role: Primary Care Nurse Address: Address: [address] [place] [address]- Name: Arianne George RN Position: [facility] RN Member Role: Primary Care Nurse Name: Radha Ewing RN Position: [facility] RN Member Role: Primary Care Nurse Name: Macey Trevino RN [facility] RN Member Role: Primary Care Nurse Name: Nesha Leigh RN Position: [facility] SN RN Member Role: Primary Care Nurse Name: Alanna Ashby RN Position: [facility] RN Member Role: Primary Care Nurse Name: Loren Jimenez RN Position: [facility] RN Member Role: Primary Care Nurse Name: Starr Poon RN Position: [facility] RN Member Role: Primary Care Nurse Name: Vilma Perez RN Position: [facility] W/ Jonny Member Role: Primary Care Nurse Name: John Noguera RN Position: [facility] RN Member Role: Primary Care Nurse Name: Noemi Ruffin MD, I Position: [facility] Primary Care Physician Member Role: PCP Address: Address: [address] [place] [address] [place] [address]- [place] Name: Dunia Arechiga RN [facility] Jiménez RN Position: [facility] [place] Member Role: Primary Care Nurse Name: Jorge hCing RN Position: [facility] RN Member Role: Primary Care Nurse Name: Valarie Srivastava RN Position: [facility] RN Member Role: Primary Care Nurse Name: Monica Jacobs RN Position: [facility] RN Member Role: Primary Care Nurse Name: Johanna Castaneda RN Position: [facility] RN Member Role: Primary Care Nurse Address: Address: [address] [place] [address]- Name: Luisa Zavaleta RN Position: [facility] [...] Persons Name: PEGGY GARDNER Address: home [address] [place] [address] Name: JLUIS WHITE STAGE NAME Name: ADIA WINTERS
--- OUTSIDE RECORDS SUMMARY | 2022-12-18 06:31 | XMS_ITS | Continuity of Care Document ---
Author Name Unknown Organization [facility] Address [address] [place] [address]- Care Team Providers Care Tip Out Worker Name Role Phone Noemi Ruffin MD, I Primary Care Physician [facility]counter [facility] Date(s): 06/22/20 - 07/22/[address] [address]- Allergies, Adverse Reactions, Alerts Substance Reaction Severity [...] VIS 10/03 3Result Comment: [12/07/2016] diluent LOT [id number] EXP 03/29/2018 4Result Comment: [07/18/2016] Liquid component: [id number], exp.: 05/2017 5Admin Note: VIS 12/13/2006 6Admin Note: vis 10/30/11 7Admin Note: vis [id number] 8Admin Note: done at [facility] this past march 9Admin Note: VIS GIVEN 2008- 10Admin Note: vis 11/25/06 Medications acetaminophen 500 mg oral tablet 1 tablet = 500 mg, By Mouth, 2 times a day, PRN for pain, take only if needed, # 60 tablet, 5 Refills, Maintenance, 04/17/19 10:49:00 EST, Tablet, [facility] - [place], [place] -, 172, cm, 04/17/19 9:42:00 EST, Height, 83.7, kg, 04/04/19 0:17:00 E... Start Date: 04/17/19 Stop Date: 10/14/19 Status: Ordered albuterol CFC free 90 mcg/inh inhalation aerosol See Instructions, # 18 Gm, Refills 5 Tot. Refills 5, INHALE 2 PUFFS BY MOUTH INTO THE lungs 4 (FOUR) TIMES DAILY NEEDED FOR SHORTNESS OF BREATH OR FOR WHEEZING, [facility] - [place], [place] - Start Date: 01/21/19 Status: Ordered Alcohol Pads See Instructions, # 50 each, Refills 11, Tot. Refills 11, Maintenance, E11.9 check BG daily, 12/05/18 7:49:59 EDT, Compound Start Date: 12/05/18 Status: Ordered amLODIPine 5 mg oral tablet 1 tablet, By Mouth, Daily, # 30 tablet, 11 Refills, Maintenance, 06/22/20 20:22:00 EST, [facility], 173, cm, 04/12/20 11:01:00 EST, [...] 07/14/19 Status: Ordered Talbert Elastic barrier strips #360620 Talbert Elastic barrier strips #475622, See Instructions, # 1 units, Refills 11, [...] 04/19/20 11:34:00 EST, Route to Pharmacy Electronically, [facility], [facility] [id number], 173, cm, 04/12/20 11:01:00 EST, [facility]... Start Date: 04/19/20 Stop Date: 11/15/20 Status: Ordered carvedilol 6.25 mg oral tablet 6.25 mg, 1, tablet, By Mouth, 2 times a day, # 60 tablet, Refills 2, Tot. Refills 2, Maintenance, 06/22/20 11:26:00 EST, Route to Pharmacy Electronically, [facility], [facility] [id number], 173, cm, 04/12/20 11:01:00 EST, Height, 86.8, kg... Start Date: 06/22/20 Stop Date: 09/20/20 Status: Ordered carvedilol 6.25 mg oral tablet 6.25 mg, 1, tablet, By Mouth, 2 times a day, # 60 tablet, Refills 11, Tot. Refills 11, Maintenance,06/22/20 21:17:00 EST, Route to Pharmacy Electronically, [facility], [facility] [id number], 173, cm, 04/12/20 11:01:00 EST, Height, 86.8,... Start Date: 06/22/20 Stop Date: 06/17/21 Status: Ordered cetirizine 10 mg oral tablet 1 tablet = 10 mg, By Mouth, Daily, PRN if needed for allergy symptoms, do not blister pack, # 90 tablet, 1 Refills, Maintenance, 04/19/20 11:34:00 EST, Tablet, [facility], [facility] [id number], 173, cm, 04/12/20 11:01:00 EST, Height, 86.... Start Date: 04/19/20 Stop Date: 10/16/20 Status: Ordered Colace Capsule 100 mg, 1, capsule, By Mouth, 2 times a day, Hold for loose stool, Refills 0, Maintenance, 208:50:00 EST, Partial fill upon patient request if the prescription is for a schedule II opioid drug. Start Date: 04/12/20 Status: Ordered coloplast #76256 pouch coloplast #17273 pouch, See Instructions, # 20 each, Refills 11, Tot. Refills 11, Maintenance, use as needed for ostomy care. 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 Fax to Andre ([facility]), 06/25/19 12:46:00 EST, Compound Start Date: 06/25/19 Status: Ordered coloplast #74495 pouch coloplast #15168 pouch, See Instructions, # 40 each, Refills 11, Tot. Refills 11, Maintenance, use as needed for ostomy care. 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 Fax to Andre ([facility]). disp 40 coloplast pouche... Start Date: 08/05/19 Status: Ordered coloplast 28914 convex 1 piece coloplast 67287 convex 1 piece, See Instructions, # 1 box, Refills 11, Tot. Refills 11, Maintenance, use for ostomy changes Dx- uc/ileostomy, 07/25/18 11:04:40 EDT, Compound Start Date: 07/25/18 Status: Ordered coloplast bags #60646 coloplast bags #08547, See Instructions, # 20 each, Refills 11, Tot. Refills 11, Maintenance, use as needed for ostomy care Dx. ileostomy Z93.2, 07/14/19 10:56:00 EDT, Compound Start Date: 07/14/19 Status: Ordered Compression Stockings See Instructions, # 4 each, Refills 1, Tot. Refills 1, Maintenance, knee high compression hose 20-30mm 4 pair dx bilateral leg edema. R60.0 pls fax to [facility], 05/12/19 14:02:00 EST, Compound Start Date: 05/12/19 [...] USE, # 100 Gm, 5 Refills, Maintenance, [facility], 30, APPLY TO PAINFUL KNEES [...] 11 Refills, Maintenance, 07/29/19 11:40:00 EDT, Tablet, [place], [place] -, 172, cm, 06/25/19 10:26:00 EST, [...] 0 Refills, Maintenance, 04/19/20 11:35:00 EST, Tablet, [place], [place] - [id number], 173, cm, 04/12/2011:01:00 EST, Height, 86.8, kg, 04/07/20 8:07:00 ES... Start Date: 04/19/20 Stop Date: 04/14/21 Status: Ordered LifeLine LifeLine, See Instructions, # 1 each, Refills 0, Tot. Refills 0, Maintenance, use to call for help in the home as directed length of need 99 B20, F32.9, F11.2 Pt address/#: [address] [place] [address], [address]. [phone] Critical Signal... Start Date: 01/15/18 Status: Ordered [...] Date: 09/12/18 Status: Ordered No-nsting skin prep #[id number] No-nsting skin prep #50721414, See Instructions, # 1 bottle, Refills 11, Tot. Refills 11, Maintenance, Use as needed for ostomy care Dx: colostomy, 01/31/18 11:44:14 EDT, Compound Start Date: 01/31/18 Status: Ordered omeprazole 20 mg oral enteric coated capsule 1 capsule = 20 mg, By Mouth, Daily, PRN only if needed for acid reflux symptoms, # 90 capsule, 0 Refills, Maintenance, 04/19/20 11:34:00 EST, EC Capsule, [facility] [id number], 173, cm, 04/12/20 11:01:00 EST, Height, 86.8, [...] tablet, 11 Refills, Maintenance, 06/22/20 20:22:00 EST, [facility], 173, cm, 04/12/20 11:01:00 EST, [...] mg sublingual film 1.5 film, Sublingual, Daily, [id number] MassPATchecked. dissolve under tongue, # 42 film, 0 Refills,Maintenance, 07/19/20 11:29:00 EDT, [facility] [place], [place] - [id number], 1.5 film Sublingual Daily,x28 days,Instr:[id number]; MassPATchec... Start Date: 07/19/20 Stop Date: 08/16/20 Status: Ordered traZODone 100 mg oral tablet 1, tablet, By Mouth, Daily at bedtime, PRN, # 30 tablet, Refills 11, Tot. Refills 0, Maintenance, NEEDED FOR insomnia, 07/19/19 17:09:00 EDT, Route to Pharmacy Electronically, [facility], 172, cm, 06/25/19 10:26:00 EST, Height, 83.7, kg, 04/04... Start Date: 07/19/19 Status: Ordered Triumeq oral tablet 1 tablet, By Mouth, Daily, # 30 tablet, 11 Refills, Maintenance, 07/29/19 11:40:00 EDT, Tablet, [facility] - [place], [place] -, 1 tablet By Mouth Daily,x30 days, 172, cm, 06/25/19 10:26:00 EST, Height, 83.7, kg, 04/04/19 0:17:00 EST, Dry Weight Start Date: 07/29/19 Stop Date: 07/23/20 Status: Ordered Unisolve adhesive remover #123688 Unisolve adhesive remover #077451, See Instructions, # 1 box, Refills 11, Tot. 

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
--- OUTSIDE RECORDS SUMMARY | 2022-12-18 06:31 | XMS_ITS | Continuity of Care Document ---
Author Name Unknown Organization [facility] Address [address] [place] [address]- Care Team Providers Care Park Naturalist Name Role Phone Noemi Ruffin MD, I Primary Care Physician Encounter [facility] Date(s): 07/03/20 - 08/02/[address] [address]- Allergies, Adverse Reactions, Alerts Substance Reaction Severity [...] VIS 10/03 3Result Comment: [12/07/2016] diluent LOT [id number] EXP 03/29/2018 4Result Comment: [07/18/2016] Liquid component: [id number], exp.: 05/2017 5Admin Note: VIS 12/13/2006 6Admin Note: vis 10/30/11 7Admin Note: vis [id number] 8Admin Note: done at [facility] this past march 9Admin Note: VIS GIVEN 2008- 10Admin Note: vis 11/25/06 Medications acetaminophen 500 mg oral tablet 1 tablet = 500 mg, By Mouth, 2 times a day, PRN for pain, take only if needed, # 60 tablet, 5 Refills, Maintenance, 04/17/19 10:49:00 EST, Tablet, [facility] [place], [place] -, 172, cm, 04/17/19 9:42:00 EST, Height, 83.7, kg, 04/04/19 0:17:00 E... Start Date: 04/17/19 Stop Date: 10/14/19 Status: Ordered albuterol CFC free 90 mcg/inh inhalation aerosol See Instructions, # 18 Gm, Refills 5 Tot. Refills 5, INHALE 2 PUFFS BY MOUTH INTO THE lungs 4 (FOUR) TIMES DAILY NEEDED FOR SHORTNESS OF BREATH OR FOR WHEEZING, [facility] - [place], [place] - Start Date: 01/21/19 Status: Ordered Alcohol Pads See Instructions, # 50 each, Refills 11, Tot. Refills 11, Maintenance, E11.9 check BG daily, 12/05/18 7:49:59 EDT, Compound Start Date: 12/05/18 Status: Ordered amLODIPine 5 mg oral tablet 1 tablet, By Mouth, Daily, # 30 tablet, 11 Refills, Maintenance, 06/22/20 20:22:00 EST, [facility], 173, cm, 04/12/20 11:01:00 EST, Height, 86.8, kg, 04/07/20 8:07:00 EST, Dry Weight Start Date: 06/22/20 Status: Ordered apixaban 2.5 mg oral tablet 1 tablet = 2.5 mg, By Mouth, 2 times a day, # 60 tablet, 0 Refills, Maintenance, 07/30/20 9:38:00 EDT, Tablet, [facility], Partial fill upon patient [...] 07/14/19 Status: Ordered Talbert Elastic barrier strips #[id number] Talbert Elastic barrier strips #592354, See Instructions, # 1 units, Refills 11, Tot. Refills 11, Maintenance, To remove appliance at every change Dx Ulcerative Colitis, 01/31/18 11:44:17 EDT, Compound Start Date: 01/31/18 Status: Ordered busPIRone 5 mg oral tablet 5 mg, 1, tablet, By Mouth, 3 times a day, for anxiety, # 270 tablet, Refills 1, Tot. Refills 1, Maintenance, 04/19/20 11:34:00 EST, Route to Pharmacy Electronically, [facility] [id number], 173, cm, 04/12/20 11:01:00 EST, Heigh... Start Date: 04/19/20 Stop Date: 11/15/20 Status: Ordered carvedilol 6.25 mg oral tablet 6.25 mg, 1, tablet, By Mouth, 2 times a day, # 60 tablet, Refills 11, Tot. Refills 11, Maintenance,06/22/20 21:17:00 EST, Route to Pharmacy Electronically, [facility] [id number], 173, cm, 04/12/20 11:01:00 EST, Height, 86.8,... Start Date: 06/22/20 Stop Date: 06/17/21 Status: Ordered cetirizine 10 mg oral tablet 1 tablet = 10 mg, By Mouth, Daily, PRN if needed for allergy symptoms, do not blister pack, # 90 tablet, 1 Refills, Maintenance, 04/19/20 11:34:00 EST, Tablet, [facility] [id number], 173, cm, 04/12/20 11:01:00 EST, Height, 86.... Start Date: 04/19/20 Stop Date: 10/16/20 Status: Ordered Colace Capsule 100 mg, 1, capsule, By Mouth, 2 times a day, Hold for loose stool, Refills 0, Maintenance, 208:50:00 EST, Partial fill upon patient request if the prescription is for a schedule II opioid drug. Start Date: 04/12/20 Status: Ordered coloplast #19824 pouch coloplast #18361 pouch, See Instructions, # 20 each, Refills 11, Tot. Refills 11, Maintenance, use as needed for ostomy care. 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 Fax to [facility]), 06/25/19 12:46:00 EST, Compound Start Date: 06/25/19 Status: Ordered coloplast #62501 pouch coloplast #59981 pouch, See Instructions, # 40 each, Refills 11, Tot. Refills 11, Maintenance, use as needed for ostomy care. 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 Fax to [facility]). disp 40 coloplast pouche... Start Date: 08/05/19 Status: Ordered coloplast 02320 convex 1 piece coloplast 63828 convex 1 piece, See Instructions, # 1 box, Refills 11, Tot. Refills 11, Maintenance, use for ostomy changes Dx- uc/ileostomy, 07/25/18 11:04:40 EDT, Compound Start Date: 07/25/18 Status: Ordered coloplast bags #90884 coloplast bags #86159, See Instructions, # 20 each, Refills 11, Tot. Refills 11, Maintenance, use as needed for ostomy care Dx. ileostomy Z93.2, 07/14/19 10:56:00 EDT, Compound Start Date: 07/14/19 Status: Ordered Compression Stockings See Instructions, # 4 each, Refills 1, Tot. Refills 1, Maintenance, knee high compression hose 20-30mm 4 pair dx bilateral leg edema. R60.0 pls fax to [facility], 05/12/19 14:02:00 EST, Compound Start Date: 05/12/19 Status: Ordered contour next EZ lancets contour next EZ lancets, See Instructions, # 50 each, Refills 11, Tot. Refills 11, Maintenance, E11.9 check BG daily, 05/22/18 16:10:05 EST, Compound Start Date: 05/22/18 Status: Ordered doxycycline monohydrate 100 mg oral capsule = 100 mg, By Mouth, Every 12 hours, for 14 days, infection prophylaxis, # 28 capsule, 0 Refills, Acute 08/13/20 9:43:00 EDT, 07/30/20 9:43:00 EDT, Capsule, [facility], Partial fill uponpatient request if the prescription is for a schedu... Start Date: 07/30/20 Stop Date: 08/13/20 Status: Ordered sophia seals sophia seals, See [...] 11 Refills, Maintenance, 07/23/20 12:00:00 EDT, Tablet, [facility] [place], [place] - [id number], 173, cm, 07/19/20 10:52:00 EDT, Height, 86.8, kg, 04/07/20 8:07:00 EST, Dry Weight Start Date: 07/23/20 Stop Date: 07/18/21 Status: Ordered HYDROmorphone 4 mg oral tablet See Instructions, PRN Pain , Mild, Take 1 tablet By Mouth Every 3 hours as needed for pain., # 56 tablet, 0 Refills, Acute 08/06/20 9:40:00 EDT, 07/30/20 9:39:00 EDT, Tablet, [facility], Partial fill upon patient request if the prescript... Start Date: 07/30/20 Stop Date: 08/06/20 Status: Ordered Imodium A-D 2 mg oral [...] 07/18/21 12:01:00 EDT, 07/23/20 12:01:00 EDT, Tablet, [facility] [place], [place] - [id number], 173, cm, 07/19/20 10:52:00 EDT, Hei... Start Date: 07/23/20 Stop Date: 07/18/21 Status: Ordered LifeLine LifeLine, See Instructions, # 1 each, Refills 0, Tot. Refills 0, Maintenance, use to call for help in the home as directed length of need 99 B20, F32.9, F11.2 Pt address/#: [address] [facility] [address], [address]. [phone] Critical Signal... Start Date: 01/15/18 Status: Ordered [...] Date: 09/12/18 Status: Ordered No-nsting skin prep #[id number] No-nsting skin prep #58715785, See Instructions, # 1 bottle, Refills 11, Tot. Refills 11, Maintenance, Use as needed for ostomy care Dx: colostomy, 01/31/18 11:44:14 EDT, Compound Start Date: 01/31/18 Status: Ordered omeprazole 20 mg oral enteric coated capsule 1 capsule = 20 mg, By Mouth, Daily, PRN only if needed for acid reflux symptoms, # 90 capsule, 1 Refills, Maintenance, 07/23/20 12:01:00 EDT, EC Capsule, [place], [place] - [id number], 173, cm, 07/19/20 10:52:00 EDT, Height, 86.8, [...] mg sublingual film 1.5 film, Sublingual, Daily, [id number] MassPATchecked. dissolve under tongue, # 42 film, 0 Refills,Maintenance, 07/19/20 11:29:00 EDT, [place], [place] - [id number], 1.5 film Sublingual Daily,x28 days,Instr:[id number]; MassPATchec... Start Date: 07/19/20 Stop Date: 08/16/20 Status: Ordered traZODone 100 mg oral tablet 1, tablet, By Mouth, Daily at bedtime, PRN, # 30 tablet, Refills 11, Tot. Refills 0, Maintenance, NEEDED FOR insomnia, 07/23/20 12:03:00 EDT, Route to Pharmacy Electronically, [facility], 173, cm, 07/19/20 10:52:00 EDT, Height, 86.8, kg, 04/07... Start Date: 07/23/20 Status: Ordered Triumeq oral tablet 1 tablet, By Mouth, Daily, # 30 tablet, 11 Refills, Maintenance, 07/23/20 12:00:00 EDT, Tablet, [place], [place] - [id number], 1 tablet By Mouth Daily,x30 days, 173, cm, 07/19/20 10:52:00 EDT, Height, 86.8, kg, 04/07/20 8:07:00 EST, D... Start Date: 07/23/20 Stop Date: 07/18/21 Status: Ordered Unisolve adhesive remover #[id number] Unisolve adhesive remover #959434, See Instructions, # 1 box, Refills 11, [...] inguinal pain(Confirmed) Active 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) Active *[id number] Care Partn krysten-Jesica Jeter(Confirmed) Active traumatic splenectomy [...]
--- OUTSIDE RECORDS SUMMARY | 2022-12-18 06:31 | XMS_ITS | Continuity of Care Document ---
Author Name Unknown Organization [facility] Address [address] [place] [address]- Care Team Providers Care Spectrographer Name Role Phone Noemi Ruffin MD, I Primary Care Physician [phone] [facility] Date[facility]): 11/27/[facility] - 12/27/[address] [address]- [facility] Allergies, Adverse Reactions, Alerts Substance Reaction Severity [...] VIS 10/03 3Result Comment: [12/07/2016] diluent LOT [id number] EXP 03/29/2018 4Result Comment: [07/18/2016] Liquid component: [id number], exp.: 05/2017 5Admin Note: VIS 12/13/2006 6Admin Note: vis 10/30/11 7Admin Note: vis [id number] 8Admin Note: done at [facility] this past march 9Admin Note: VIS GIVEN 2008- 10Admin Note: vis 11/25/06 Medications acetaminophen 500 mg oral tablet 1 tablet = 500 mg, By Mouth, 2 times a day, PRN for pain, take only if needed, # 60 tablet, 5 Refills, Maintenance, 04/17/19 10:49:00 EST, Tablet, [place], [place] -, 172, cm, 04/17/19 9:42:00 EST, Height, 83.7, kg, 04/04/19 0:17:00 E... Start Date: 04/17/19 Stop Date: 10/14/19 Status: Ordered albuterol CFC free 90 mcg/inh inhalation aerosol See Instructions, # 18 Gm, Refills 5 Tot. Refills 5, INHALE 2 PUFFS BY MOUTH INTO THE lungs 4 (FOUR) TIMES DAILY NEEDED FOR SHORTNESS OF BREATH OR FOR WHEEZING, [place], [place] - Start Date: 01/21/19 Status: Ordered Alcohol Pads See Instructions, # 50 each, Refills 11, Tot. Refills 11, Maintenance, E11.9 check BG daily, 12/05/18 7:49:59 EDT, Compound Start Date: 12/05/18 Status: Ordered amLODIPine 5 mg oral tablet 5 mg, 1, tablet, By Mouth, Daily, # 30 tablet, Refills 11, Tot. Refills 11, Maintenance, 06/16/19 12:27:00 EST, Route to Pharmacy Electronically, [facility] [place], [place] -, 172, cm, 06/16/19 11:20:00 EST, [...] 07/14/19 Status: Ordered Talbert Elastic barrier strips #[id number] Talbert Elastic barrier strips #[id number], See Instructions, # 1 units, Refills 11, Tot. Refills 11, Maintenance, To remove appliance at every change Dx Ulcerative Colitis, 01/31/18 11:44:17 EDT, Compound Start Date: 01/31/18 Status: Ordered busPIRone 5 mg oral tablet 5 mg, 1, tablet, By Mouth, 3 times a day, for anxiety, # 90 tablet, Refills 11, Tot. Refills 11, Maintenance, 04/17/19 10:43:00 EST, Route to Pharmacy Electronically, [place], [place] -, 172, cm, 04/17/19 9:42:00 EST, Height, 83.7, kg... Start Date: 04/17/19 Stop Date: 04/11/20 Status: Ordered carvedilol 6.25 mg oral tablet 6.25 mg, 1, tablet, By Mouth, 2 times a day, # 60 tablet, Refills 11, Tot. Refills 11, Maintenance,06/16/19 12:25:00 EST, Route to Pharmacy Electronically, [place], [place] -, 172, cm, 06/16/19 11:20:00 EST, [...] 04/17/19 10:43:00 EST, Route to Pharmacy Electronically, [place], [place] -, 172, cm, 04/17/19 9:42:00 EST, Height, 83.7, kg, 04/04/19 0:17:... Start Date: 04/17/19 Stop Date: 04/11/20 Status: Ordered Citrucel 500 mg oral tablet 2 tablet = 1,000 mg, By Mouth, Daily, for 60 days, with plenty of water, # 120 tablet, 1 Refills, Acute 02/12/20 16:54:00 EDT, 10/15/19 16:54:00 EDT, [facility], 172, cm, 06/25/19 10:26:00 EST, Height, 83.7, kg, 04/04/19 0:17:... Start Date: 10/15/19 Stop Date: 02/12/20 Status: Ordered coloplast #06688 pouch coloplast #92470 pouch, See Instructions, # 20 each, Refills 11, Tot. Refills 11, Maintenance, use as needed for ostomy care. 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 Fax to [facility]), 06/25/19 12:46:00 EST, Compound Start Date: 06/25/19 Status: Ordered coloplast #96636 pouch coloplast #07009 pouch, See Instructions, # 40 each, Refills 11, Tot. Refills 11, Maintenance, use as needed for ostomy care. 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 Fax to [facility] ([facility]). disp 40 coloplast pouche... Start Date: 08/05/19 Status: Ordered coloplast 73787 convex 1 piece coloplast 16834 convex 1 piece, See Instructions, # 1 box, Refills 11, Tot. Refills 11, Maintenance, use for ostomy changes Dx- uc/ileostomy, 07/25/18 11:04:40 EDT, Compound Start Date: 07/25/18 Status: Ordered coloplast bags #77191 coloplast bags #70619, See Instructions, # 20 each, Refills 11, Tot. Refills 11, Maintenance, use as needed for ostomy care Dx. ileostomy Z93.2, 07/14/19 10:56:00 EDT, Compound Start Date: 07/14/19 Status: Ordered Compression Stockings See Instructions, # 4 each, Refills 1, Tot. Refills 1, Maintenance, knee high compression hose 20-30mm 4 pair dx bilateral leg edema. R60.0 pls fax to [facility], 05/12/19 14:02:00 EST, Compound Start Date: [...] 11 Refills, Maintenance, 07/29/19 11:40:00 EDT, Tablet, [facility] [place], [place] -, 172, cm, 06/25/19 10:26:00 EST, Height, 83.7, kg, 04/04/19 0:17:00 EST, Dry Weight Start Date: 07/29/19 Stop Date: 07/23/20 Status: Ordered hydrOXYzine hydrochloride 10 mg oral tablet 2 tablet = 20 mg, By Mouth, 3 times a day, PRN for itching, # 80 tablet, 0 Refills, Maintenance, 06/25/19 11:37:00 EST, Tablet, [place], [place] -, 172, cm, 06/25/19 10:26:00 EST, [...] 01/02/19 10:34:25 EDT, Route to Pharmacy Electronically, [id number], [place]... Start Date: 01/02/19 Stop Date: 07/01/19 Status: Ordered Januvia 50 mg oral tablet 1 tablet = 50 mg, By Mouth, Daily before breakfast, for diabetes, # 30 tablet, 11 Refills, Maintenance, 04/17/19 10:46:00 EST, Tablet, [place], [place] -, 172, cm, 04/17/19 9:42:00 EST, Height, 83.7, kg, 04/04/19 0:17:00 EST, Dry Weight Start Date: 04/17/19 Stop Date: 04/11/20 Status: Ordered LifeLine LifeLine, See Instructions, # 1 each, Refills 0, Tot. Refills 0, Maintenance, use to call for help in the home as directed length of need 99 B20, F32.9, F11.2 Pt address/#: [address] [place] [id number], [address]. [phone] Critical Signal... Start Date: 01/15/18 Status: Ordered [...] Date: 09/12/18 Status: Ordered No-nsting skin prep #[id number] No-nsting skin prep #[id number], See Instructions, # 1 bottle, Refills 11, Tot. Refills 11, Maintenance, Use as needed for ostomy care Dx: colostomy, 01/31/18 11:44:14 EDT, Compound Start Date: 01/31/18 Status: Ordered omeprazole 20 mg oral enteric coated capsule 1 capsule = 20 mg, By Mouth, Daily, PRN only if needed for acid reflux symptoms, # 30 capsule, 5 Refills, Maintenance, 04/17/19 10:49:00 EST, EC Capsule, [place], [place] -, 172, cm,04/17/19 9:42:00 EST, Height, [...] tablet, 5 Refills, Maintenance, 07/19/19 13:20:00 EDT, [facility], 172, cm, 06/25/19 10:26:00 EST, Height, [...] 11 Refills, Maintenance, 06/16/19 12:26:00 EST, Tablet, [facility] [place], [place] -, 172, cm, 06/16/19 11:20:00 EST, [...] mg sublingual film 3 each, Sublingual, Daily, [id number], MassPATchecked. dissolve under tongue (ok to divide dose 3x/dif helps w/ pain), # 84 film, 0 Refills, Maintenance, 11/25/19 11:54:00 EDT, [place], [place] - [id number], 3 each Sublingual Daily,x... Start Date: 11/25/19 Stop Date: 12/23/19 Status: Ordered traZODone 100 mg oral tablet 1, tablet, By Mouth, Daily at bedtime, PRN, # 30 tablet, Refills 11, Tot. Refills 0, Maintenance, NEEDED FOR insomnia, 07/19/19 17:09:00 EDT, Route to Pharmacy Electronically, [facility], 172, cm, 06/25/19 10:26:00 EST, Height, 83.7, kg, 04/04... Start Date: 07/19/19 Status: Ordered Triumeq oral tablet 1 tablet, By Mouth, Daily, # 30 tablet, 11 Refills, Maintenance, 07/29/19 11:40:00 EDT, Tablet, [place], [place] -, 1 tablet By Mouth Daily,x30 days, 172, cm, 06/25/19 10:26:00 EST, Height, 83.7, kg, 04/04/19 0:17:00 EST, Dry Weight Start Date: 07/29/19 Stop Date: 07/23/20 Status: Ordered Unisolve adhesive remover #[id number] Unisolve adhesive remover #149455, See Instructions, # 1 box, Refills 11, Tot. Refills 11, Maintenance, To remove appliance at every change Dx Ulcerative Colitis, 01/31/18 11:44:15 EDT, Compound Start Date: 01/31/18 Status: Ordered Voltaren 1% topical gel See Instructions, PRN pain R knee, apply to painful knees 1-2x/day maximum; wash hands after, # 100Gm, 3 Refills, Maintenance, 06/25/19 11:49:00 EST, Gel, [place], [place] -, apply to painful knees 1-2x/day [...] 0 Refills, Maintenance, 06/25/19 11:36:00 EST, Tablet, [facility] [place], [place] -, 172, cm, 06/25/19 10:26:00 EST, [...] inguinal pain(Confirmed) Active 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) Active *[id number]- Care Part ner Jacky Sandhu(Confirmed) Active traumatic [...]
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
--- OUTSIDE RECORDS SUMMARY | 2022-12-18 06:31 | XMS_ITS | Continuity of Care Document ---
Author Name Unknown Organization [facility] Address [address] [place] [address]- Care Team Providers Care Registered Land Surveyor Name Role Phone Laly FERNANDEZ, Noemi Marshall Primary Care Physician [facility]counter [facility] Date(s): 06/29/22 - 07/29/[address] [address]- Allergies, Adverse Reactions, Alerts Substance Reaction Severity Status ampicillin Active aspirin BLEEDING Persistent Severe Active Pollen NASAL CONGESTION SNEEZING Persistent Mode rate Active NSAIDs bleeding Persistent Severe Active Immunizations Given and Recorded Vaccine Date Status Refusal Reason [id number] 12y+ bivalent booster vax 02/02/22 Recorded SARS-CoV-2 [...] VIS 10/03 4Result Comment: [12/07/2016] diluent LOT [id number] EXP 03/29/2018 5Result Comment: [07/18/2016] Liquid component: [id number], exp.: 05/2017 6Admin Note: VIS 12/13/2006 7Admin Note: vis 10/30/11 8Admin Note: vis [id number] 9Admin Note: done at [facility] this past march 10Admin Note: VIS GIVEN 2008- 11Admin Note: vis 11/25/06 Medications acetaminophen 500 mg oral tablet 1 tablet, By Mouth, 4 times a day, PRN NEEDED FOR PAIN, TAKE ONLY IF needed, # 100 tablet, 5 Refills, Maintenance, 04/14/22 15:58:00 EST, [place], [place] - [id number], 167, cm, 04/10/22 11:48:00 EST, Height, 89.9, kg, 05/25/21 10:... Start Date: 04/14/22 Status: Ordered Albuterol (Eqv-ProAir HFA) 90 mcg/inh inhalation aerosol 2 puffs, Inhalation, 4 times a day, PRN NEEDED FOR SHORTNESS OF BREATH OR FOR WHEEZING, # 25.5 Gm, 5 Refills, [facility], 4, INHALE 2 PUFFS BY [...] tablet, 5 Refills, Maintenance, 06/26/22 22:22:00 EST, [facility], 167, cm, 04/10/22 11:48:00 EST, Height, [...] 09/09/21 Status: Ordered Talbert Elastic barrier strips #083345 Talbert Elastic barrier strips #207334, See Instructions, # 120 each, Refills 11, [...] EST, Height, 89.9, kg, 05/25/21 10:21:00 EST, . Start Date: 07/24/22 Status: Ordered carvedilol 12.5 mg oral tablet 1, tablet, By Mouth, 2 times a day, # 180 tablet, Refills 1, Maintenance, 06/26/22 22:23:00 EST, Route to Pharmacy Electronically, [facility], 167, cm, 04/10/22 11:48:00 EST, Height, 89.9, kg, 05/25/21 10:21:00 EST, Dry Weight Start Date: 06/26/22 Status: Ordered cetirizine 10 mg oral tablet 1 tablet, By Mouth, Daily, PRN NEEDED FOR FOR ALLERGY, # 90 tablet, 1 Refills, 02/23/22 14:13:00EDT, [place], [place] - [id number], 167, cm, 08/08/21 11:18:00 EDT, Height, 89.9, kg, 05/25/21 10:21:00 EST, Dry Weight Start Date: 02/23/22 Status: Ordered coloplast #30618 pouch coloplast #64105 pouch, See Instructions, # 20 each, Refills 11, Tot. Refills 11, Maintenance, use as needed for ostomy care. 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 Fax to Andre ([facility]), 06/25/19 12:46:00 EST, Compound Start Date: 06/25/19 Status: Ordered coloplast #97256 pouch coloplast #15578 pouch, See Instructions, # 40 each, Refills 11, Tot. Refills 11, Maintenance, use as needed for ostomy care. 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 Fax to Andre ([facility]). disp 40 coloplast pouche... Start Date: 08/05/19 Status: Ordered coloplast 39519 convex 1 piece coloplast 04809 convex 1 piece, See Instructions, # 1 box, Refills 11, Tot. Refills 11, Maintenance, use for ostomy changes Dx- uc/ileostomy, 07/25/18 11:04:40 EDT, Compound Start Date: 07/25/18 Status: Ordered coloplast bags #06621 coloplast bags #45082, See Instructions, # 20 each, Refills 11, Tot. Refills 11, Maintenance, use as needed for ostomy care Dx. ileostomy Z93.2 fax to [facility], 09/09/21 10:48:00 EDT, Compound Start Date: 09/09/21 Status: Ordered Compression Stockings See Instructions, # 4 each, Refills 1, Tot. Refills 1, Maintenance, knee high compression hose 20-30mm 4 pair dx bilateral leg edema. R60.0 pls fax to [facility], 05/12/19 14:02:00 EST, Compound Start Date: [...] Gm, 5 Refills, Maintenance, 06/27/22 16:38:00 EST, [facility], 30, APPLY TO PAINFUL KNEES 1 TO 2 TIMES A DAY maximum. WASH HANDS AFTER USE, 167, cm,... Start Date: 06/27/22 Status: Ordered Dovato 50 mg-300 mg oral tablet 1 tablet, By Mouth, Daily, *pharmacy: please change triumeq to dovato with the next monthly medication delivery., # 30 tablet, 11 Refills, Maintenance, 04/21/22 14:15:00 EST, Tablet, [facility] - [place], [place] - [id number], Partial fill upon pa... Start Date: 04/21/22 [...] tablet, 2 Refills, Maintenance, 05/27/22 4:01:00 EST, [facility], 167, cm, 04/10/22 11:48:00 EST, [...] 11 Refills, Maintenance, 07/07/22 11:45:00 EST, Tablet, [facility] [place], [place] - [phone], Partial fill upon patient request if the prescription is for a schedule II opioid drug., 167,... Start Date: 07/07/22 Status: Ordered LifeLine LifeLine, See Instructions, # 1 each, Refills 0, Tot. Refills 0, Maintenance, use to call for help in the home as directed length of need 99 B20, F32.9, F11.2 Pt address/#: [address] [place] [address], [address]. [phone] Critical Signal... Start Date: 01/15/18 Status: Ordered Lokelma 10 g oral powder for reconstitution See Instructions, DISSOLVE THE CONTENT OF 1 PACKET IN WATER AND DRINK ONCE DAILY. DO NOT TAKE WITHIN 2 HOURS OF other MEDICATIONS, # 30 pack/packet, 5 Refills, Maintenance, 04/25/22 16:05:00 EST, [facility], 167, cm, 04/10/22 11:48:00 EST, [...] Date: 09/12/18 Status: Ordered No-nsting skin prep #[id number] No-nsting skin prep #[id number], See Instructions, # 1 bottle, Refills 11, [...] tablet, 1 Refills, Maintenance, 06/26/22 22:24:00 EST, [facility], 167, cm, 04/10/22 11:48:00 EST, [...] tablet, 11 Refills, Maintenance, 05/29/22 18:56:00 EST, [facility], 167, cm, 04/10/22 11:48:00 EST, [...] sublingual film 3 film, Sublingual, Daily, Laly [id number] MassPATchecked. dissolve under tongue, # 84 film, 0 Refills, Maintenance, 07/14/22 9:48:00 EDT, [facility], [place] - [id number], increase in dose from 16 mg to 24 mg daily, 3 film Subling... Start Date: 07/14/22 Stop Date: 08/11/22 Status: Ordered traZODone 100 mg oral tablet 1, tablet, By Mouth, Daily at bedtime, PRN, # 90 tablet, Refills 1, Maintenance, NEEDED FOR insomnia, 06/27/22 16:38:00 EST, Route to Pharmacy Electronically, [facility], 167, cm, 04/10/22 11:48:00 EST, Height, 89.9, kg, 05/25/21 10:21:00 EST,... Start Date: 06/27/22 Status: Ordered Trulicity Pen 0.75 mg/0.5 mL subcutaneous solution 0.5 mL = 0.75 mg, Subcutaneous Injection, Every week, rotate injection sites, # 2 mL, 11 Refills, Maintenance, 07/07/22 11:45:00 EST, Solution, [facility], [facility] [phone], Partialfill upon patient request if the prescription is fo... 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 Confirmed Active SLAC (scapholunate advanced [...] Team Personnel Name: Maru Grey NP Position: [facility] PCO Associate Professional Member Role: Primary Care Nurse Address: Address: [address] [place] [address]- Name: Arianne George RN Position: [facility] RN Member Role: Primary Care Nurse Name: Radha Ewing RN Position: [facility] RN Member Role: Primary Care Nurse Name: Macey Trevino RN Position: [facility] RN Member Role: Primary Care Nurse Name: Nesha Leigh RN Position: [facility] SN RN Member Role: Primary Care Nurse Name: Alanna Ashby RN Position: [facility] RN Member Role: Primary Care Nurse Name: Loren Jimenez RN Position: [facility] RN Member Role: Primary Care Nurse Name: Starr Poon RN Position: [facility] RN Member Role: Primary Care Nurse Name: Vilma Perez RN Position: [facility] W/ Jonny Member Role: Primary Care Nurse Name: John Noguera RN Position: [facility] RN Member Role: Primary Care Nurse Name: Noemi Ruffin MD, I Position: [facility] Primary Care Physician Member Role: PCP Address: Address: [address] [place] [address]- [place] Name: Dunia Arechiga RN Position: [facility] RN Member Role: Primary Care Nurse Name: Kamilah Baron Position: [facility] PCO TA Member Role: Primary Care Nurse Name: Ro Lopez RN Position: [facility] RN Member Role: Primary Care Nurse Name: Kosta Braun III, RN Position: [facility] RN Member Role: Primary Care Nurse Name: Lauryn Jiménez RN Position: [facility] Hospital Manager Operations Member Role: Primary Care Nurse Name: Jorge Ching RN Position: [facility] RN Member Role: Primary Care Nurse Name: Valarie Srivastava RN Position: [facility] RN Member Role: Primary Care Nurse Name: Monica Jacobs RN Position: [facility] RN Member Role: Primary Care Nurse Name: Johanna Castaneda RN Position: [facility] RN Member Role: Primary Care Nurse Address: Address: [address] [place] [address]- Name: Luisa Zavaleta RN Position: [facility] AMB Nurse Member Role: Primary Care Nurse Name: Yulissa Mora RN Position: [facility] SN RN Member Role: Primary Care Nurse Name: Francine Abrams RN Position: [facility] RN Member Role: Primary Care Nurse Name: Shea Marinelli RN Position: [facility] RN Member Role: Primary Care Nurse Care Team Related Persons Name: KENDRA PEGGY Address: [address] [place] [address] Name: JLUIS WHITE STAGE NAME Name: ADIA WINTERS
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
[2022-12-18 06:32] LABS: SLIDE REVIEW VERIFIED
--- OUTSIDE RECORDS SUMMARY | 2022-12-18 06:32 | XMS_ITS | Continuity of Care Document ---
Author Name Unknown Organization [facility] Address [address] [place] [address]- Care Team Providers Care Food Production Supervisor Name Role Phone Laly FERNANDEZ, Noemi Marshall Primary Care Physician [phone] Encounter [facility] Date(s): 06/21/22 - 07/21/[address] [address]- Allergies, Adverse Reactions, Alerts Substance Reaction Severity Status ampicillin Active aspirin BLEEDING Persistent Severe Active Pollen NASAL CONGESTION SNEEZING Persistent Mode rate Active NSAIDs bleeding Persistent Severe Active Immunizations Given and Recorded Vaccine Date Status Refusal Reason [id number] 12y+ bivalent booster vax 02/02/22 Recorded SARS-CoV-2 [...] VIS 10/03 4Result Comment: [12/07/2016] diluent LOT [id number] EXP 03/29/2018 5Result Comment: [07/18/2016] Liquid component: [id number], exp.: 05/2017 6Admin Note: VIS 12/13/2006 7Admin Note: vis 10/30/11 8Admin Note: vis [id number] 9Admin Note: done at [facility] this past march 10Admin Note: VIS GIVEN 2008- 11Admin Note: vis 11/25/06 Medications acetaminophen 500 mg oral tablet 1 tablet, By Mouth, 4 times a day, PRN NEEDED FOR PAIN, TAKE ONLY IF needed, # 100 tablet, 5 Refills, Maintenance, 04/14/22 15:58:00 EST, [place], [place] - [id number], 167, cm, 04/10/22 11:48:00 EST, Height, 89.9, kg, 05/25/21 10:... Start Date: 04/14/22 Status: Ordered Albuterol (Eqv-ProAir HFA) 90 mcg/inh inhalation aerosol 2 puffs, Inhalation, 4 times a day, PRN NEEDED FOR SHORTNESS OF BREATH OR FOR WHEEZING, # 25.5 Gm, 5 Refills, [facility], 4, INHALE 2 PUFFS BY [...] tablet, 5 Refills, Maintenance, 06/26/22 22:22:00 EST, [facility], 167, cm, 04/10/22 11:48:00 EST, Height, 89.9, [...] 09/09/21 Status: Ordered Talbert Elastic barrier strips #515388 Talbert Elastic barrier strips #452931, See Instructions, # 120 each, Refills 11, [...] 01/26/22 18:01:00 EDT, Route to Pharmacy Electronically, [facility] - [place], [place] - [id number], 167, cm, 08/08/21 11:18:00 E... Start Date: 01/26/22 Stop Date: 07/25/22 Status: Ordered carvedilol 12.5 mg oral tablet 1, tablet, By Mouth, 2 times a day, # 180 tablet, Refills 1, Maintenance, 06/26/22 22:23:00 EST, Route to Pharmacy Electronically, [facility], 167, cm, 04/10/22 11:48:00 EST, Height, 89.9, kg, 05/25/21 10:21:00 EST, Dry Weight Start Date: 06/26/22 Status: Ordered cetirizine 10 mg oral tablet 1 tablet, By Mouth, Daily, PRN NEEDED FOR FOR ALLERGY, # 90 tablet, 1 Refills, 02/23/22 14:13:00EDT, [facility] - [place], [place] - [id number], 167, cm, 08/08/21 11:18:00 EDT, Height, 89.9, kg, 05/25/21 10:21:00 EST, Dry Weight Start Date: 02/23/22 Status: Ordered coloplast #36487 pouch coloplast #88754 pouch, See Instructions, # 20 each, Refills 11, Tot. Refills 11, Maintenance, use as needed for ostomy care. 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 Fax to Andre ([facility]), 06/25/19 12:46:00 EST, Compound Start Date: 06/25/19 Status: Ordered coloplast #03953 pouch coloplast #69693 pouch, See Instructions, # 40 each, Refills 11, Tot. Refills 11, Maintenance, use as needed for ostomy care. 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 Fax to Andre ([facility]). disp 40 coloplast pouche... Start Date: 08/05/19 Status: Ordered coloplast 44220 convex 1 piece coloplast 19321 convex 1 piece, See Instructions, # 1 box, Refills 11, Tot. Refills 11, Maintenance, use for ostomy changes Dx- uc/ileostomy, 07/25/18 11:04:40 EDT, Compound Start Date: 07/25/18 Status: Ordered coloplast bags #10987 coloplast bags #84330, See Instructions, # 20 each, Refills 11, Tot. Refills 11, Maintenance, use as needed for ostomy care Dx. ileostomy Z93.2 fax to [facility], 09/09/21 10:48:00 EDT, Compound Start Date: 09/09/21 Status: Ordered Compression Stockings See Instructions, # 4 each, Refills 1, Tot. Refills 1, Maintenance, knee high compression hose 20-30mm 4 pair dx bilateral leg edema. R60.0 pls fax to &[facility], 05/12/19 14:02:00 EST, Compound Start Date: [...] Gm, 5 Refills, Maintenance, 06/27/22 16:38:00 EST, [facility], 30, APPLY TO PAINFUL KNEES 1 TO 2 TIMES A DAY maximum. WASH HANDS AFTER USE, 167, cm,... Start Date: 06/27/22 Status: Ordered Dovato 50 mg-300 mg oral tablet 1 tablet, By Mouth, Daily, *pharmacy: please change triumeq to dovato with the next monthly medication delivery., # 30 tablet, 11 Refills, Maintenance, 04/21/22 14:15:00 EST, Tablet, [facility] - [place], [place] - [id number], Partial fill upon pa... Start Date: 04/21/22 [...] tablet, 2 Refills, Maintenance, 05/27/22 4:01:00 EST, [facility], 167, cm, 04/10/22 11:48:00 EST, [...] 11 Refills, Maintenance, 07/07/22 11:45:00 EST, Tablet, [facility] - [place], [place] - [id number], Partial fill upon patient request if the prescription is for a schedule II opioid drug., 167,... Start Date: 07/07/22 Status: Ordered LifeLine LifeLine, See Instructions, # 1 each, Refills 0, Tot. Refills 0, Maintenance, use to call for help in the home as directed length of need 99 B20, F32.9, F11.2 Pt address/#: [address] [place] [address], [address]. [phone] Critical Signal... Start Date: 01/15/18 Status: Ordered Lokelma 10 g oral powder for reconstitution See Instructions, DISSOLVE THE CONTENT OF 1 PACKET IN WATER AND DRINK ONCE DAILY. DO NOT TAKE WITHIN 2 HOURS OF other MEDICATIONS, # 30 pack/packet, 5 Refills, Maintenance, 04/25/22 16:05:00 EST, [facility], 167, cm, 04/10/22 11:48:00 EST, [...] Date: 09/12/18 Status: Ordered No-nsting skin prep #[id number] No-nsting skin prep #[id number], See Instructions, # 1 bottle, Refills 11, Tot. Refills 11, Maintenance, Use as needed for ostomy care Dx: colostomy, 01/31/18 11:44:14 EDT, Compound Start Date: 01/31/18 Status: Ordered omeprazole 40 mg oral enteric coated capsule 1 capsule, By Mouth, 2 times a day, # 60 capsule, 1 Refills, Maintenance, 05/27/22 4:01:00 EST, [facility], 167, cm, 04/10/22 11:48:00 EST, [...] tablet, 1 Refills, Maintenance, 06/26/22 22:24:00 EST, [facility], 167, cm, 04/10/22 11:48:00 EST, [...] sublingual film 3 film, Sublingual, Daily, Laly [id number] MassPATchecked. dissolve under tongue, # 84 film, 0 Refills, Maintenance, 07/14/22 9:48:00 EDT, [facility], [facility] [id number], increase in dose from 16 mg to 24 mg daily, 3 film Subling... Start Date: 07/14/22 Stop Date: 08/11/22 Status: Ordered traZODone 100 mg oral tablet 1, tablet, By Mouth, Daily at bedtime, PRN, # 90 tablet, Refills 1, Maintenance, NEEDED FOR insomnia, 06/27/22 16:38:00 EST, Route to Pharmacy Electronically, [facility], 167, cm, 04/10/22 11:48:00 EST, Height, 89.9, kg, 05/25/21 10:21:00 EST,... Start Date: 06/27/22 Status: Ordered Trulicity Pen 0.75 mg/0.5 mL subcutaneous solution 0.5 mL = 0.75 mg, Subcutaneous Injection, Every week, rotate injection sites, # 2 mL, 11 Refills, Maintenance, 07/07/22 11:45:00 EST, Solution, [facility], [place] - [id number], Partialfill upon patient request if the prescription is fo... 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 PCO Associate Professional Member Role: Primary Care Nurse Address: Address: [address] [place] [address]- Name: Arianne George RN Position: [facility] RN Member Role: Primary Care Nurse Name: Radha Ewing RN Position: [facility] RN Member Role: Primary Care Nurse Name: Macey Trevino RN [facility] RN Member Role: Primary Care Nurse Name: Nesha Leigh RN Position: [facility] SN RN Member Role: Primary Care Nurse Name: Alanna Ashby RN Position: [facility] RN Member Role: Primary Care Nurse Name: Loren Jimenez RN Position: [facility] RN Member Role: Primary Care Nurse Name: Starr Poon RN Position: [facility] RN Member Role: Primary Care Nurse Name: Vilma Perez RN Position: [facility] W/ Jonny Member Role: Primary Care Nurse Name: John Noguera RN Position: [facility] RN Member Role: Primary Care Nurse Name: Noemi Ruffin MD, I Position: [facility] Primary Care Physician Member Role: PCP Address: Address: [address] [place] [address], [place] [address]- [place] Name: Dunia Arechiga RN Position: [facility] RN Member Role: Primary Care Nurse Name: Kamilah Baron Position: [facility] PCO TA Member Role: Primary Care Nurse Name: Ro Lopez RN Position: [facility] RN Member Role: Primary Care Nurse Name: Kosta Braun III, RN Position: [facility] RN Member Role: Primary Care Nurse Name: Lauryn Jiménez RN Position: [facility] Hospital Pipe Machine Operator Member Role: Primary Care Nurse Name: Jorge Ching RN Position: [facility] RN Member Role: Primary Care Nurse Name: Valarie Srivastava RN Position: [facility] RN Member Role: Primary Care Nurse Name: Monica Jacobs RN Position: [facility] RN Member Role: Primary Care Nurse Name: Johanna Castaneda RN Position: [facility] RN Member Role: Primary Care Nurse Address: Address: [address] [place] [address]- Name: Luisa Zavaleta RN Position: [facility] AMB Nurse Member Role: Primary Care Nurse Name: Yulissa Mora RN Position: [facility] SN RN Member Role: Primary Care Nurse Name: Francine Abrams RN Position: [facility] RN Member Role: Primary Care Nurse Name: Shea Marinelli RN Position: [facility] RN Member Role: Primary Care Nurse Care Team Related Persons Name: PEGGY GARDNER Address: home [address] [place] [address] Name: JLUIS WHITE STAGE NAME Name: ADIA WINTERS
--- OUTSIDE RECORDS SUMMARY | 2022-12-18 06:32 | XMS_ITS | Continuity of Care Document ---
Author Name Unknown Organization [facility] Address [address] [place] [address]- Care Team Providers Care Service Greeter Name Role Phone Noemi Ruffin MD, I Primary Care Physician [facility]counter [facility] Date(s): 04/27/20 - 05/27/[address] [address]- Allergies, Adverse Reactions, Alerts Substance Reaction Severity [...] VIS 10/03 3Result Comment: [12/07/2016] diluent LOT [id number] EXP 03/29/2018 4Result Comment: [07/18/2016] Liquid component: [id number], exp.: 05/2017 5Admin Note: VIS 12/13/2006 6Admin Note: vis 10/30/11 7Admin Note: vis [id number] 8Admin Note: done at [facility] this past march 9Admin Note: VIS GIVEN 2008- 10Admin Note: vis 11/25/06 Medications acetaminophen 500 mg oral tablet 1 tablet = 500 mg, By Mouth, 2 times a day, PRN for pain, take only if needed, # 60 tablet, 5 Refills, Maintenance, 04/17/19 10:49:00 EST, Tablet, [facility] - [place], [place] -, 172, cm, 04/17/19 9:42:00 EST, Height, 83.7, kg, 04/04/19 0:17:00 E... Start Date: 04/17/19 Stop Date: 10/14/19 Status: Ordered albuterol CFC free 90 mcg/inh inhalation aerosol See Instructions, # 18 Gm, Refills 5 Tot. Refills 5, INHALE 2 PUFFS BY MOUTH INTO THE lungs 4 (FOUR) TIMES DAILY NEEDED FOR SHORTNESS OF BREATH OR FOR WHEEZING, [place], [place] - Start Date: 01/21/19 Status: Ordered Alcohol Pads See Instructions, # 50 each, Refills 11, Tot. Refills 11, Maintenance, E11.9 check BG daily, 12/05/18 7:49:59 EDT, Compound Start Date: 12/05/18 Status: Ordered amLODIPine 5 mg oral tablet 5 mg, 1, tablet, By Mouth, Daily at bedtime, # 30 tablet, Refills 11, Tot. Refills 11, Maintenance,06/16/19 12:27:00 EST, Route to Pharmacy Electronically, [place], [place] -, 172, cm, 06/16/19 11:20:00 EST, [...] 07/14/19 Status: Ordered Talbert Elastic barrier strips #[id number] Talbret Elastic barrier strips #536205, See Instructions, # 1 units, Refills 11, [...] 04/19/20 11:34:00 EST, Route to Pharmacy Electronically, [place], [place]- [id number], 173, cm, 04/12/20 11:01:00 EST, Heigh... Start Date: 04/19/20 Stop Date: 11/15/20 Status: Ordered carvedilol 6.25 mg oral tablet 6.25 mg, 1, tablet, By Mouth, 2 times a day, # 60 tablet, Refills 11, Tot. Refills 11, Maintenance,06/16/19 12:25:00 EST, Route to Pharmacy Electronically, [place], [place] -, 172, cm, 06/16/19 11:20:00 EST, Height, 83.7, kg, ... Start Date: 06/16/19 Stop Date: 06/10/20 Status: Ordered cetirizine 10 mg oral tablet 1 tablet = 10 mg, By Mouth, Daily, PRN if needed for allergy symptoms, do not blister pack, # 90 tablet, 1 Refills, Maintenance, 04/19/20 11:34:00 EST, Tablet, [place], [place] - [id number], 173, cm, 04/12/20 11:01:00 EST, Height, 86.... [...] 5 Refills, Maintenance, 05/21/20 12:39:00 EST, Granule, [facility] - [place], [place] - [id number], Partial fill u... Start Date: 05/21/20 Stop Date: 11/17/20 Status: Ordered coloplast #96666 pouch coloplast #62644 pouch, See Instructions, # 20 each, Refills 11, Tot. Refills 11, Maintenance, use as needed for ostomy care. 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 Fax to Andre ([facility]), 06/25/19 12:46:00 EST, Compound Start Date: 06/25/19 Status: Ordered coloplast #91495 pouch coloplast #94667 pouch, See Instructions, # 40 each, Refills 11, Tot. Refills 11, Maintenance, use as needed for ostomy care. 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 Fax to Andre ([facility]). disp 40 coloplast pouche... Start Date: 08/05/19 Status: Ordered coloplast 04349 convex 1 piece coloplast 74722 convex 1 piece, See Instructions, # 1 box, Refills 11, Tot. Refills 11, Maintenance, use for ostomy changes Dx- uc/ileostomy, 07/25/18 11:04:40 EDT, Compound Start Date: 07/25/18 Status: Ordered coloplast bags #29464 coloplast bags #76440, See Instructions, # 20 each, Refills 11, Tot. Refills 11, Maintenance, use as needed for ostomy care Dx. ileostomy Z93.2, 07/14/19 10:56:00 EDT, Compound Start Date: 07/14/19 Status: Ordered Compression Stockings See Instructions, # 4 each, Refills 1, Tot. Refills 1, Maintenance, knee high compression hose 20-30mm 4 pair dx bilateral leg edema. R60.0 pls fax to [facility], 05/12/19 14:02:00 EST, Compound Start Date: [...] 11 Refills, Maintenance, 07/29/19 11:40:00 EDT, Tablet, [place], [place] -, 172, cm, 06/25/19 10:26:00 EST, Height, 83.7, kg, 04/04/19 0:17:00 EST, Dry Weight Start Date: 07/29/19 Stop Date: 07/23/20 Status: Ordered Januvia 50 mg oral tablet 1 tablet = 50 mg, By Mouth, Daily before breakfast, for diabetes, # 90 tablet, 0 Refills, Maintenance, 04/19/20 11:35:00 EST, Tablet, [place], [place] - [id number], 173, cm, 04/12/2011:01:00 EST, Height, 86.8, kg, 04/07/20 8:07:00 ES... Start Date: 04/19/20 Stop Date: 04/14/21 Status: Ordered LifeLine LifeLine, See Instructions, # 1 each, Refills 0, Tot. Refills 0, Maintenance, use to call for help in the home as directed length of need 99 B20, F32.9, F11.2 Pt address/#: [address] [place] [address], [address]. [phone] Critical Signal... Start Date: 01/15/18 Status: Ordered [...] Date: 09/12/18 Status: Ordered No-nsting skin prep #[id number] No-nsting skin prep #57637375, See Instructions, # 1 bottle, Refills 11, Tot. Refills 11, Maintenance, Use as needed for ostomy care Dx: colostomy, 01/31/18 11:44:14 EDT, Compound Start Date: 01/31/18 Status: Ordered omeprazole 20 mg oral enteric coated capsule 1 capsule = 20 mg, By Mouth, Daily, PRN only if needed for acid reflux symptoms, # 90 capsule, 0 Refills, Maintenance, 04/19/20 11:34:00 EST, EC Capsule, [place], [place] - [id number], 173, cm, 04/12/20 11:01:00 EST, Height, 86.8, [...] 11 Refills, Maintenance, 06/16/19 12:26:00 EST, Tablet, [facility] - [place], [place] -, 172, cm, 06/16/19 11:20:00 EST, [...] mg sublingual film 2 film, Sublingual, Daily, [id number], MassPATchecked. dissolve under tongue, # 56 film, 0 Refills, Maintenance, 05/24/20 18:26:00 EST, [place], [place] - [id number], 2 film Sublingual Daily,x28 days,Instr:[id number], MassGavinoed. d... Start Date: 05/24/20 Stop Date: 06/21/20 Status: Ordered traZODone 100 mg oral tablet 1, tablet, By Mouth, Daily at bedtime, PRN, # 30 tablet, Refills 11, Tot. Refills 0, Maintenance, NEEDED FOR insomnia, 07/19/19 17:09:00 EDT, Route to Pharmacy Electronically, [facility], 172, cm, 06/25/19 10:26:00 EST, Height, 83.7, kg, 04/04... Start Date: 07/19/19 Status: Ordered Triumeq oral tablet 1 tablet, By Mouth, Daily, # 30 tablet, 11 Refills, Maintenance, 07/29/19 11:40:00 EDT, Tablet, [place], [place] -, 1 tablet By Mouth Daily,x30 days, 172, cm, 06/25/19 10:26:00 EST, Height, 83.7, kg, 04/04/19 0:17:00 EST, Dry Weight Start Date: 07/29/19 Stop Date: 07/23/20 Status: Ordered Unisolve adhesive remover #886121 Unisolve adhesive remover #259969, See Instructions, # 1 box, Refills 11, Tot. Refills 11, Maintenance, To remove appliance at every change Dx Ulcerative Colitis, 01/31/18 11:44:15 EDT, Compound Start Date: 01/31/18 Status: Ordered warfarin 1 mg oral tablet See Instructions, Take 1-10 tablets By Mouth Daily as directed by [facility], # 150 tablet, 0 Refills, Maintenance, 04/12/20 8:51:00 EST, Tablet, [facility], Partial fill upon patient requestif [...] inguinal pain(Confirmed) Active 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) Active *[phone] Care Partn krysten-Jesica Jeter(Confirmed) Active traumatic splenectomy [...]
--- OUTSIDE RECORDS SUMMARY | 2022-12-18 06:32 | XMS_ITS | Continuity of Care Document ---
Author Name Unknown Organization [facility] Address [address] [place] [address]- Care Team Providers Care Destination Imagination Coordinator Name Role Phone Mora Gooden MD Primary Care Physician [facility] Date(s): 09/08/22 - 10/08/[address] [address]- Allergies, Adverse Reactions, Alerts Substance Reaction Severity Status ampicillin Active aspirin BLEEDING Persistent Severe Active NSAIDs bleeding Persistent Severe Active Pollen NASAL CONGESTION SNEEZING Persistent Mode rate Active Immunizations Given and Recorded Vaccine Date Status Refusal Reason [id number] 12y+ bivalent booster vax 02/02/22 Recorded SARS-CoV-2 [...] VIS 10/03 4Result Comment: [12/07/2016] diluent LOT [id number] EXP 03/29/2018 5Result Comment: [07/18/2016] Liquid component: [id number], exp.: 05/2017 6Admin Note: VIS 12/13/2006 7Admin Note: vis 10/30/11 8Admin Note: vis [id number] 9Admin Note: [facility] 10Admin Note: [...] Daily, # 30 tablet, 5 Refills, Maintenance, 02/27/23 22:22:00 EST, [facility], 167, cm, 04/10/22 [...] 09/09/21 Status: Ordered Talbert Elastic barrier strips #283438 Talbert Elastic barrier strips #205757, See Instructions, # 120 each, Refills 11, Tot. Refills 11, Maintenance, Dx: K51; Z93. 3 sig: use 4 strips a day with ostomy bag. disp: 4 bags of 30 strips = 120 strips per month. Fax to [facility] [phone], 04... Start Date: 08/21/22 Status: Ordered busPIRone 5 mg oral tablet 1, tablet, By Mouth, 3 times a day, PRN, # 270 tablet, Refills 1, Maintenance, NEEDED FOR ANXIETY, 07/24/22 17:21:00 EDT, Route to Pharmacy Electronically, [facility], 167, cm, 04/10/22 11:48:00 EST, Height, 89.9, kg, 05/25/21 10:21:00 EST, [facility].. Start Date: 07/24/22 Status: Ordered carvedilol 12.5 mg oral tablet 1, tablet, By Mouth, 2 times a day, # 180 tablet, Refills 1, Maintenance, 06/26/22 22:23:00 EST, Route to Pharmacy Electronically, [facility], 167, cm, 04/10/22 11:48:00 EST, Height, 89.9, kg, 05/25/21 10:21:00 EST, Dry Weight Start Date: 06/26/22 Status: Ordered cetirizine 10 mg oral tablet See Instructions, TAKE 1 TABLET BY MOUTH ONCE DAILY NEEDED for allergy, # 90 tablet, 1 Refills, Maintenance, 08/24/22 11:40:00 EDT, [facility], 167, cm, 08/01/22 10:08:00 EDT, Height, 89.9, kg, 05/25/21 10:21:00 EST, Dry Weight Start Date: 08/24/22 Status: Ordered coloplast #15033 pouch coloplast #12675 pouch, See Instructions, # 20 each, Refills 11, Tot. Refills 11, Maintenance, use as needed for ostomy care. 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 Fax to [facility] ([facility]), 06/25/19 12:46:00 EST, Compound Start Date: 06/25/19 Status: Ordered coloplast #84025 pouch coloplast #83133 pouch, See Instructions, # 40 each, Refills 11, Tot. Refills 11, Maintenance, use as needed for ostomy care. 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 Fax to Andre ([facility]). disp 40 coloplast pouche... Start Date: 08/05/19 Status: Ordered coloplast 23764 convex 1 piece coloplast 56020 convex 1 piece, See Instructions, # 1 box, Refills 11, Tot. Refills 11, Maintenance, use for ostomy changes Dx- uc/ileostomy, 07/25/18 11:04:40 EDT, Compound Start Date: 07/25/18 Status: Ordered coloplast bags #34481 coloplast bags #58860, See Instructions, # 20 each, Refills 11, [...] leg edema. R60.0 pls fax to [facility], 05/12/19 14:02:00 EST, Compound Start [...] Gm, 5 Refills, Maintenance, 06/27/22 16:38:00 EST, [facility], 30, APPLY TO PAINFUL KNEES 1 TO 2 TIMES A DAY maximum. WASH HANDS AFTER USE, 167, cm,... Start Date: 06/27/22 Status: Ordered Dovato 50 mg-300 mg oral tablet 1 tablet, By Mouth, Daily, *pharmacy: please change triumeq to dovato with the next monthly medication delivery., # 30 tablet, 11 Refills, Maintenance, 04/21/22 14:15:00 EST, Tablet, [facility] - [place], [place] - [phone], Partial fill upon pa... Start Date: 04/21/22 [...] tablet, 11 Refills, Maintenance, 06/27/22 16:38:00 EST, [facility], 167, cm, 04/10/22 11:48:00 EST, [...] Z93. 3; K51 RICH 99 Fax to [facility] [phone], 09/28/22 14:39:00 EDT, Supply Start Date: 09/28/22 Status: Ordered hydrochlorothiazide 12.5 mg oral tablet See Instructions, TAKE 1 TABLET BY MOUTH ONCE DAILY, # 30 tablet, 5 Refills, Maintenance, 08/24/22 11:41:00 EDT, [place], [place] - [id number], 167, cm, 08/01/22 10:08:00 EDT, Height, 89.9, [...] 11 Refills, Maintenance, 07/07/22 11:45:00 EST, Tablet, [facility] - [place], [place] - [phone], Partial fill upon patient request if the prescription is for a schedule II opioid drug., 167,... Start Date: 07/07/22 Status: Ordered LifeLine LifeLine, See Instructions, # 1 each, Refills 0, Tot. Refills 0, Maintenance, use to call for help in the home as directed length of need 99 B20, F32.9, F11.2 Pt address/#: [address] [place] [address], [address] [phone] Critical Signal... Start Date: 01/15/18 Status: Ordered [...] Date: 09/12/18 Status: Ordered No-nsting skin prep #[id number] No-nsting skin prep #[id number], See Instructions, # 1 bottle, Refills 11, Tot. Refills 11, Maintenance, Use as needed for ostomy care Dx: colostomy, 01/31/18 11:44:14 EDT, Compound Start Date: 01/31/18 Status: Ordered omeprazole 40 mg oral enteric coated capsule 1 capsule, By Mouth, 2 times a day, # 60 capsule, 11 Refills, Maintenance, 09/21/22 16:32:00 EDT, [facility], 167, cm, 08/01/22 10:08:00 EDT, [...] Gm, 5 Refills, Maintenance, 08/24/22 15:20:00 EDT, [facility], 30, DISSOLVE 17GM IN WATER [...] ICD 10 Z93. 3; K51 Fax to [facility], 09/07/22 15:51:00 EDT, Supply Start [...] 90 film,1 Refills, Maintenance, 10/04/22 15:34:00 EDT, [facility] [id number], 3 film Sublingual Daily,x30 days,Instr:Fill on/after 6... Start Date: 10/04/22 Stop Date: 12/03/22 Status: Ordered traZODone 100 mg oral tablet 1, tablet, By Mouth, Daily at bedtime, PRN, # 90 tablet, Refills 1, Maintenance, NEEDED FOR insomnia, 06/27/22 16:38:00 EST, Route to Pharmacy Electronically, [facility], 167, cm, 04/10/22 11:48:00 EST, Height, 89.9, kg, 05/25/21 10:21:00 EST,... Start Date: 06/27/22 Status: Ordered Trulicity Pen 0.75 mg/0.5 mL subcutaneous solution 0.5 mL = 0.75 mg, Subcutaneous Injection, Every week, rotate injection sites, # 2 mL, 11 Refills, Maintenance, 07/07/22 11:45:00 EST, Solution, [facility] [id number], Partialfill upon patient request if the prescription is fo... Start Date: 07/07/22 Status: Ordered Unisolve adhesive remover #739128 Unisolve adhesive remover #186815, See Instructions, # 1 box, Refills 11, [...] Active Osteoarthritis of both hands Confirmed Active *[id number]-Genoveva katie Harris Confirmed Active SLAC (scapholunate advanced [...] Team Personnel Name: Maru Grey NP Position: [facility] PCO Associate Professional Member Role: Primary Care Nurse Address: Address: [address] [place] [address] [place] [address]- Name: Arianne George RN Position: [facility] RN Member Role: Primary Care Nurse Name: Radha Ewing RN Position: [facility] RN Member Role: Primary Care Nurse Name: Macey Trevino RN Position: [facility] AMB Nurse Member Role: Primary Care Nurse Name: Nesha Leigh RN Position: [facility] RN Member Role: Primary Care Nurse Name: Alanna Ashby RN Position: [facility] RN Member Role: Primary Care Nurse Name: Loren Jimenez RN Position: [facility] RN Member Role: Primary Care Nurse Name: Starr Poon RN Position: [facility] SN RN Member Role: Primary Care Nurse Name: Vilma Perez RN Position: [facility] MR W/ Merge Member Role: Primary Care Nurse Name: John Noguera RN Position: [facility] RN Member Role: Primary Care Nurse Name: Dunia Arechiga RN Position: [facility] RN Member Role: Primary Care Nurse Name: Kamilah Baron Position: [facility] PCO TA Member Role: Primary Care Nurse Name: Ro Lopez RN Position: [facility] RN Member Role: Primary Care Nurse Name: Kosta Braun III, RN Position: [facility] RN Member Role: Primary Care Nurse Name: Lauryn Jiménez RN Position: [facility] Hospital Underground Foreman Member Role: Primary Care Nurse Name: Jorge Ching RN Position: [facility] RN Member Role: Primary Care Nurse Name: Valarie Srivastava RN Position: [facility] RN Member Role: Primary Care Nurse Name: Monica Jacobs RN Position: [facility] RN Member Role: Primary Care Nurse Name: Johanna Castaneda RN Position: [facility] RN Member Role: Primary Care Nurse Address: Address: [address] [place] [address]- [place] Name: Luisa Zavaleta RN Position: [facility] AMB Nurse Member Role: Primary Care Nurse Name: Yulissa Mora RN Position: [facility] SN RN Member Role: Primary Care Nurse Name: Francine Abrams RN Position: [facility] RN Member Role: Primary Care Nurse Name: Shea Marinelli RN Position: [facility] RN Member Role: Primary Care Nurse Name: Mora Gooden MD Position: [facility] Physician - Primary Care Member Role: PCP Address: Address: [address] [place] [address]- [place] Care Team Related Persons Name: KENDRA PEGGY Address: home [address] [place] [address] Name: JLUIS WHITE STAGE NAME Name: ADIA WINTERS
--- OUTSIDE RECORDS SUMMARY | 2022-12-18 06:32 | XMS_ITS | Continuity of Care Document ---
Author Name Unknown Organization [facility] Address [address] [place] [address]- Care Team Providers Care Mobile Solutions Architect Name Role Phone Noemi Ruffin MD, I Primary Care Physician [facility] Date(s): 12/31/19 - 01/30/[address] [address]- [facility] Allergies, Adverse Reactions, Alerts Substance Reaction Severity [...] VIS 10/03 3Result Comment: [12/07/2016] diluent LOT [id number] EXP 03/29/2018 4Result Comment: [07/18/2016] Liquid component: [id number], exp.: 05/2017 5Admin Note: VIS 12/13/2006 6Admin Note: vis 10/30/11 7Admin Note: vis [id number] 8Admin Note: done at [facility] this past march 9Admin Note: VIS GIVEN 2008- 10Admin Note: vis 11/25/06 Medications acetaminophen 500 mg oral tablet 1 tablet = 500 mg, By Mouth, 2 times a day, PRN for pain, take only if needed, # 60 tablet, 5 Refills, Maintenance, 04/17/19 10:49:00 EST, Tablet, [place], [place] -, 172, cm, 04/17/19 9:42:00 EST, Height, 83.7, kg, 04/04/19 0:17:00 E... Start Date: 04/17/19 Stop Date: 10/14/19 Status: Ordered albuterol CFC free 90 mcg/inh inhalation aerosol See Instructions, # 18 Gm, Refills 5 Tot. Refills 5, INHALE 2 PUFFS BY MOUTH INTO THE lungs 4 (FOUR) TIMES DAILY NEEDED FOR SHORTNESS OF BREATH OR FOR WHEEZING, [place], [place] - Start Date: 01/21/19 Status: Ordered Alcohol Pads See Instructions, # 50 each, Refills 11, Tot. Refills 11, Maintenance, E11.9 check BG daily, 12/05/18 7:49:59 EDT, Compound Start Date: 12/05/18 Status: Ordered amLODIPine 5 mg oral tablet 5 mg, 1, tablet, By Mouth, Daily, # 30 tablet, Refills 11, Tot. Refills 11, Maintenance, 06/16/19 12:27:00 EST, Route to Pharmacy Electronically, [facility] - [place], [place] -, 172, cm, 06/16/19 11:20:00 EST, [...] 07/14/19 Status: Ordered Talbert Elastic barrier strips #782980 Talbert Elastic barrier strips #469072, See Instructions, # 1 units, Refills 11, Tot. Refills 11, Maintenance, To remove appliance at every change Dx Ulcerative Colitis, 01/31/18 11:44:17 EDT, Compound Start Date: 01/31/18 Status: Ordered busPIRone 5 mg oral tablet 5 mg, 1, tablet, By Mouth, 3 times a day, for anxiety, # 90 tablet, Refills 11, Tot. Refills 11, Maintenance, 04/17/19 10:43:00 EST, Route to Pharmacy Electronically, [place], [place] -, 172, cm, 04/17/19 9:42:00 EST, Height, 83.7, kg... Start Date: 04/17/19 Stop Date: 04/11/20 Status: Ordered carvedilol 6.25 mg oral tablet 6.25 mg, 1, tablet, By Mouth, 2 times a day, # 60 tablet, Refills 11, Tot. Refills 11, Maintenance,06/16/19 12:25:00 EST, Route to Pharmacy Electronically, [place], [place] -, 172, cm, 06/16/19 11:20:00 EST, [...] 04/17/19 10:43:00 EST, Route to Pharmacy Electronically, [place], [place] -, 172, cm, 04/17/19 9:42:00 EST, Height, 83.7, kg, 04/04/19 0:17:... Start Date: 04/17/19 Stop Date: 04/11/20 Status: Ordered Citrucel 500 mg oral tablet 2 tablet = 1,000 mg, By Mouth, Daily, for 60 days, with plenty of water, # 120 tablet, 1 Refills, Acute 02/12/20 16:54:00 EDT, 10/15/19 16:54:00 EDT, [facility], 172, cm, 06/25/19 10:26:00 EST, Height, 83.7, kg, 04/04/19 0:17:... Start Date: 10/15/19 Stop Date: 02/12/20 Status: Ordered coloplast #39924 pouch coloplast #12951 pouch, See Instructions, # 20 each, Refills 11, Tot. Refills 11, Maintenance, use as needed for ostomy care. 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 Fax to [facility]), 06/25/19 12:46:00 EST, Compound Start Date: 06/25/19 Status: Ordered coloplast #62089 pouch coloplast #49943 pouch, See Instructions, # 40 each, Refills 11, Tot. Refills 11, Maintenance, use as needed for ostomy care. 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 Fax to Andre ([facility]). disp 40 coloplast pouche... Start Date: 08/05/19 Status: Ordered coloplast 82509 convex 1 piece coloplast 02680 convex 1 piece, See Instructions, # 1 box, Refills 11, Tot. Refills 11, Maintenance, use for ostomy changes Dx- uc/ileostomy, 07/25/18 11:04:40 EDT, Compound Start Date: 07/25/18 Status: Ordered coloplast bags #71030 coloplast bags #56938, See Instructions, # 20 each, Refills 11, Tot. Refills 11, Maintenance, use as needed for ostomy care Dx. ileostomy Z93.2, 07/14/19 10:56:00 EDT, Compound Start Date: 07/14/19 Status: Ordered Compression Stockings See Instructions, # 4 each, Refills 1, Tot. Refills 1, Maintenance, knee high compression hose 20-30mm 4 pair dx bilateral leg edema. R60.0 pls fax to [facility], 05/12/19 14:02:00 EST, Compound Start Date: 05/12/19 [...] 11 Refills, Maintenance, 07/29/19 11:40:00 EDT, Tablet, [facility] [place], [place] -, 172, cm, 06/25/19 10:26:00 EST, Height, 83.7, kg, 04/04/19 0:17:00 EST, Dry Weight Start Date: 07/29/19 Stop Date: 07/23/20 Status: Ordered hydrOXYzine hydrochloride 10 mg oral tablet 2 tablet = 20 mg, By Mouth, 3 times a day, PRN for itching, # 80 tablet, 0 Refills, Maintenance, 06/25/19 11:37:00 EST, Tablet, [place], [place] -, 172, cm, 06/25/19 10:26:00 EST, [...] 01/02/19 10:34:25 EDT, Route to Pharmacy Electronically, [id number], Kate... Start Date: 01/02/19 Stop Date: 07/01/19 Status: Ordered Januvia 50 mg oral tablet 1 tablet = 50 mg, By Mouth, Daily before breakfast, for diabetes, # 30 tablet, 11 Refills, Maintenance, 04/17/19 10:46:00 EST, Tablet, [place], [place] -, 172, cm, 04/17/19 9:42:00 EST, Height, 83.7, kg, 04/04/19 0:17:00 EST, Dry Weight Start Date: 04/17/19 Stop Date: 04/11/20 Status: Ordered LifeLine LifeLine, See Instructions, # 1 each, Refills 0, Tot. Refills 0, Maintenance, use to call for help in the home as directed length of need 99 B20, F32.9, F11.2 Pt address/#: [address] [place] [address], [address]. [phone] Critical Signal... Start Date: 01/15/18 Status: Ordered [...] Date: 09/12/18 Status: Ordered No-nsting skin prep #[id number] No-nsting skin prep #12889166, See Instructions, # 1 bottle, Refills 11, Tot. Refills 11, Maintenance, Use as needed for ostomy care Dx: colostomy, 01/31/18 11:44:14 EDT, Compound Start Date: 01/31/18 Status: Ordered omeprazole 20 mg oral enteric coated capsule 1 capsule = 20 mg, By Mouth, Daily, PRN only if needed for acid reflux symptoms, # 30 capsule, 5 Refills, Maintenance, 04/17/19 10:49:00 EST, EC Capsule, [place], [place] -, 172, cm,04/17/19 9:42:00 EST, Height, [...] tablet, 5 Refills, Maintenance, 01/19/20 15:08:00 EDT, [facility] [id number], 172, cm, 11/25/19 11:30:00 EDT, Height, 83.7,kg, [...] 11 Refills, Maintenance, 06/16/19 12:26:00 EST, Tablet, [facility] - [place], [place] -, 172, cm, 06/16/19 11:20:00 EST, [...] mg sublingual film 3 each, Sublingual, Daily, [id number], MassPATchecked. dissolve under tongue (ok to divide dose 3x/dif helps w/ pain), # 84 film, 0 Refills, Maintenance, 11/25/19 11:54:00 EDT, [place], [place] - [id number], 3 each Sublingual Daily,x... Start Date: 11/25/19 Stop Date: 12/23/19 Status: Ordered traZODone 100 mg oral tablet 1, tablet, By Mouth, Daily at bedtime, PRN, # 30 tablet, Refills 11, Tot. Refills 0, Maintenance, NEEDED FOR insomnia, 07/19/19 17:09:00 EDT, Route to Pharmacy Electronically, [facility], 172, cm, 06/25/19 10:26:00 EST, Height, 83.7, kg, 04/04... Start Date: 07/19/19 Status: Ordered Triumeq oral tablet 1 tablet, By Mouth, Daily, # 30 tablet, 11 Refills, Maintenance, 07/29/19 11:40:00 EDT, Tablet, [place], [place] -, 1 tablet By Mouth Daily,x30 days, 172, cm, 06/25/19 10:26:00 EST, Height, 83.7, kg, 04/04/19 0:17:00 EST, Dry Weight Start Date: 07/29/19 Stop Date: 07/23/20 Status: Ordered Unisolve adhesive remover #537861 Unisolve adhesive remover #144712, See Instructions, # 1 box, Refills 11, Tot. Refills 11, Maintenance, To remove appliance at every change Dx Ulcerative Colitis, 01/31/18 11:44:15 EDT, Compound Start Date: 01/31/18 Status: Ordered Voltaren 1% topical gel See Instructions, PRN pain R knee, apply to painful knees 1-2x/day maximum; wash hands after, # 100Gm, 3 Refills, Maintenance, 06/25/19 11:49:00 EST, Gel, [place], [place] -, apply to painful knees 1-2x/day [...] 0 Refills, Maintenance, 06/25/19 11:36:00 EST, Tablet, [facility] [place], [place] -, 172, cm, 06/25/19 10:26:00 EST, [...] inguinal pain(Confirmed) Active 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) Active *[id number] Care Partn -Jesica Jeter(Confirmed) Active traumatic splenectomy [...]
--- OUTSIDE RECORDS SUMMARY | 2022-12-18 06:32 | XMS_ITS | Continuity of Care Document ---
Author Name Unknown Organization [facility] Address [address] [place] [address]- Care Team Providers Care Assistant Director Of Residence Life Name Role Phone Laly FERNANDEZ, Noemi Marshall Primary Care Physician [phone] [facility]counter [facility] Date(s): 06/29/21 - 07/29/[address] [address]- Allergies, Adverse Reactions, Alerts Substance Reaction Severity [...] VIS 10/03 4Result Comment: [12/07/2016] diluent LOT [id number] EXP 03/29/2018 5Result Comment: [07/18/2016] Liquid component: [id number], exp.: 05/2017 6Admin Note: VIS 12/13/2006 7Admin Note: vis 10/30/11 8Admin Note: vis [id number] 9Admin Note: done at [facility] this past march 10Admin Note: VIS GIVEN 2008- 11Admin Note: vis 11/25/06 Medications acetaminophen 500 mg oral tablet 1 tablet, By Mouth, 2 times a day, PRN NEEDED FOR PAIN, TAKE ONLY IF needed, # 60 tablet, 5 Refills, [facility], 172, cm, 01/18/21 12:02:00 EDT, Height, 89.7, kg, 07/29/20 7:42:00 EDT, Dry Weight Start Date: 01/27/21 Status: Ordered Albuterol (Eqv-ProAir HFA) 90 mcg/inh inhalation aerosol 2 puffs, Inhalation, 4 times a day, PRN NEEDED FOR SHORTNESS OF BREATH OR FOR WHEEZING, # 25.5 Gm, 1 Refills, Maintenance, 02/21/21 9:52:00 EDT, [facility] [id number], 2 puffs Inhalation 4 times a day,PRN: [...] 07/26/21 14:15:00 EDT, Route to Pharmacy Electronically, [facility] [id number], Partial fill upon patient request if the [...] 07/14/19 Status: Ordered Talbert Elastic barrier strips #909170 Talbert Elastic barrier strips #496843, See Instructions, # 1 units, Refills 11, Tot. Refills 11, Maintenance, To remove appliance at every change Dx Ulcerative Colitis, 01/31/18 11:44:17 EDT, Compound Start Date: 01/31/18 Status: Ordered busPIRone 5 mg oral tablet 1, tablet, By Mouth, 3 times a day, FOR ANXIETY., # 90 tablet, Refills 1, Route to Pharmacy Electronically, [facility], 167, cm, 05/26/21 7:07:00 EST, Height, 89.9, kg, 05/25/21 10:21:00 EST, Dry Weight Start Date: 06/22/21 Status: Ordered carvedilol 12.5 mg oral tablet 12.5 mg, 1, tablet, By Mouth, 2 times a day, increase in dose, # 60 tablet, Refills 11, Tot. Refills 11, Maintenance, 10/12/20 11:48:00 EDT, Route to Pharmacy Electronically, [facility] [id number], Partial fill upon patient re... Start Date: 10/12/20 Stop Date: 10/07/21 Status: Ordered cetirizine 10 mg oral tablet 1 tablet, By Mouth, Daily, PRN NEEDED for allergy, # 90 tablet, 1 Refills, Maintenance, 04/21/2112:42:00 EST, [place], [place] - [id number], 172, cm, 02/22/21 10:36:00 EDT, Height, 89.7, kg, 07/29/20 7:42:00 EDT, Dry Weight Start Date: 04/21/21 Status: Ordered coloplast #10707 pouch coloplast #65972 pouch, See Instructions, # 20 each, Refills 11, Tot. Refills 11, Maintenance, use as needed for ostomy care. 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 Fax to Andre ([facility]), 06/25/19 12:46:00 EST, Compound Start Date: 06/25/19 Status: Ordered coloplast #06584 pouch coloplast #88987 pouch, See Instructions, # 40 each, Refills 11, Tot. Refills 11, Maintenance, use as needed for ostomy care. 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 Fax to Andre ([facility]). disp 40 coloplast pouche... Start Date: 08/05/19 Status: Ordered coloplast 94891 convex 1 piece coloplast 54590 convex 1 piece, See Instructions, # 1 box, Refills 11, Tot. Refills 11, Maintenance, use for ostomy changes Dx- uc/ileostomy, 07/25/18 11:04:40 EDT, Compound Start Date: 07/25/18 Status: Ordered coloplast bags #79292 coloplast bags #98435, See Instructions, # 20 each, Refills 11, Tot. Refills 11, Maintenance, use as needed for ostomy care Dx. ileostomy Z93.2, 07/14/19 10:56:00 EDT, Compound Start Date: 07/14/19 Status: Ordered Compression Stockings See Instructions, # 4 each, Refills 1, Tot. Refills 1, Maintenance, knee high compression hose 20-30mm 4 pair dx bilateral leg edema. R60.0 pls fax to [facility], 05/12/19 14:02:00 EST, Compound Start Date: [...] a day, # 60 tablet, 11 Refills, [facility], 167, cm, 05/26/21 7:07:00 EST, Height, 89.9, kg, 05/25/21 10:21:00 EST, Dry Weight Start Date: 07/25/21 Status: Ordered hydrochlorothiazide 12.5 mg oral tablet 1 tablet = 12.5 mg, By Mouth, Daily, # 30 tablet, 11 Refills, Maintenance, 01/04/21 11:11:00 EDT, Tablet, [facility] - [place], [place] - [id number], Partial fill upon patient request if the [...] FOR diabetes., # 30 tablet, 11 Refills, [facility], 167, cm, 05/26/21 7:07:00 EST, Height, 89.9, kg, 05/25/21 10:21:00 EST, Dry Weight Start Date: 07/25/21 Status: Ordered LifeLine LifeLine, See Instructions, # 1 each, Refills 0, Tot. Refills 0, Maintenance, use to call for help in the home as directed length of need 99 B20, F32.9, F11.2 Pt address/#: [address] [place] [address], [address]. [phone] Critical Signal... Start Date: 01/15/18 Status: Ordered [...] Date: 09/12/18 Status: Ordered No-nsting skin prep #[id number] No-nsting skin prep #06388240, See Instructions, # 1 bottle, Refills 11, Tot. Refills 11, Maintenance, Use as needed for ostomy care Dx: colostomy, 01/31/18 11:44:14 EDT, Compound Start Date: 01/31/18 Status: Ordered omeprazole 40 mg oral enteric coated capsule 1 capsule, By Mouth, 2 times a day, # 60 capsule, 1 Refills, [facility], 167, cm, 05/26/21 7:07:00 EST, Height, [...] tablet, 1 Refills, Maintenance, 07/25/21 12:03:00 EDT, [facility] [place], [place] - [id number], 167, cm, 05/26/21 7:07:00 EST, Height, 89.9, [...] Mouth, Daily, # 45 tablet, 11 Refills, [facility], 167, cm, 05/26/21 7:07:00 EST, Height, [...] mg sublingual film 3 film, Sublingual, Daily, [id number] MassPATchecked. dissolve under tongue Due 07/12/2021, # 84 film, 0 Refills, Maintenance, 07/14/21 11:59:00 EDT, [facility] - [place], [place] - [id number], increase in dose from 16 mg to 24 mg daily, 3 angélica... Start Date: 07/14/21 Stop Date: 08/11/21 Status: Ordered traZODone 100 mg oral tablet 1, tablet, By Mouth, Daily at bedtime, PRN, # 90 tablet, Refills 1, Tot. Refills 1, Maintenance, ASNEEDED FOR insomnia, 07/25/21 12:04:00 EDT, Route to Pharmacy Electronically, [facility] - [place], [place] - [id number], 167, cm, 05/26/21 7:07:00... Start Date: 07/25/21 Status: Ordered Triumeq oral tablet 1 tablet, By Mouth, Daily, # 30 tablet, 11 Refills, [facility], 30, TAKE ONE TABLET BY MOUTH DAILY, 167, cm, 05/26/21 7:07:00 EST, Height, 89.9, kg, 05/25/21 10:21:00 EST, Dry Weight Start Date: 07/25/21 Status: Ordered Unisolve adhesive remover #596440 Unisolve adhesive remover #224540, See Instructions, # 1 box, Refills 11, [...] in obese(Confirmed) Active Obese class I(Confirmed) Active *[phone] Care Partn er-Jesica Bookerdo(Confirmed) Active traumatic splenectomy [...]
--- OUTSIDE RECORDS SUMMARY | 2022-12-18 06:32 | XMS_ITS | Continuity of Care Document ---
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 this past march 10Admin Note: VIS GIVEN 2008- 11Admin Note: vis 11/25/06 Medications acetaminophen 500 mg oral tablet 1 tablet = 500 mg, By Mouth, 2 times a day, PRN for pain, take only if needed, # 60 tablet, 5 Refills, Maintenance, 04/17/19 10:49:00 EST, Tablet, [facility] [place], [place] -, 172, cm, 04/17/19 9:42:00 EST, Height, 83.7, kg, 04/04/19 0:17:00 E... Start Date: 04/17/19 Stop Date: 10/14/19 Status: Ordered albuterol CFC free 90 mcg/inh inhalation aerosol 2, puffs, Inhalation, 4 times a day, PRN, # 1 each, Refills 1, Tot. Refills 1, Soft Stop, 12/07/20 11:08:00 EDT, Route to Pharmacy Electronically, [id number], [place], [place] - [id number], 172, cm, 12/07/20... Start Date: 12/07/20 Stop [...] 5 Refills, Maintenance, 11/05/20 12:56:00 EDT, Tablet, [place], [place] - [id number], Partial fill uponpatient request if the prescription is for a schedu... Start Date: 11/05/20 Status: Ordered apixaban 2.5 mg oral tablet 1 tablet = 2.5 mg, By Mouth, 2 times a day, # 60 tablet, 0 Refills, Maintenance, 07/30/20 9:38:00 EDT, Tablet, [facility], Partial fill upon patient request [...] 07/14/19 Status: Ordered Talbert Elastic barrier strips #452215 Talbert Elastic barrier strips #673876, See Instructions, # 1 units, Refills 11, Tot. Refills 11, Maintenance, To remove appliance at every change Dx Ulcerative Colitis, 01/31/18 11:44:17 EDT, Compound Start Date: 01/31/18 Status: Ordered busPIRone 5 mg oral tablet 1, tablet, By Mouth, 3 times a day, FOR ANXIETY., # 270 tablet, Refills 1, Tot. Refills 0, Maintenance, 10/26/20 10:29:00 EDT, Route to Pharmacy Electronically, [facility], 172, cm, 07/30/20 16:38:00 EDT, Height, 89.7, kg, 07/29/20 7:42:00 EDT, D... Start Date: 10/26/20 Status: Ordered carvedilol 12.5 mg oral tablet 12.5 mg, 1, tablet, By Mouth, 2 times a day, increase in dose, # 60 tablet, Refills 11, Tot. Refills 11, Maintenance, 10/12/20 11:48:00 EDT, Route to Pharmacy Electronically, [facility] - [place], [place] - [id number], Partial fill upon patient re... Start Date: 10/12/20 Stop Date: 10/07/21 Status: Ordered cetirizine 10 mg oral tablet 1 tablet, By Mouth, Daily, PRN NEEDED for allergy, # 90 tablet, 1 Refills, Maintenance, 10/26/2109:30:00 EDT, [facility], 172, cm, 07/30/20 16:38:00 EDT, Height, 89.7, kg, 07/29/20 7:42:00 EDT, Dry Weight Start Date: 10/26/20 Status: Ordered Colace Capsule 100 mg, 1, capsule, By Mouth, 2 times a day, Hold for loose stool, Refills 0, Maintenance, :50:00 EST, Partial fill upon patient request if the prescription is for a schedule II opioid drug. Start Date: 04/12/20 Status: Ordered coloplast #63699 pouch coloplast #06856 pouch, See Instructions, # 20 each, Refills 11, Tot. Refills 11, Maintenance, use as needed for ostomy care. 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 Fax to [facility]), 06/25/19 12:46:00 EST, Compound Start Date: 06/25/19 Status: Ordered coloplast #90832 pouch coloplast #65849 pouch, See Instructions, # 40 each, Refills 11, Tot. Refills 11, Maintenance, use as needed for ostomy care. 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 Fax to Andre ([facility]). disp 40 coloplast pouche... Start Date: 08/05/19 Status: Ordered coloplast 99043 convex 1 piece coloplast 83586 convex 1 piece, See Instructions, # 1 box, Refills 11, Tot. Refills 11, Maintenance, use for ostomy changes Dx- uc/ileostomy, 07/25/18 11:04:40 EDT, Compound Start Date: 07/25/18 Status: Ordered coloplast bags #47688 coloplast bags #14347, See Instructions, # 20 each, Refills 11, Tot. Refills 11, Maintenance, use as needed for ostomy care Dx. ileostomy Z93.2, 07/14/19 10:56:00 EDT, Compound Start Date: 07/14/19 Status: Ordered Compression Stockings See Instructions, # 4 each, Refills 1, Tot. Refills 1, Maintenance, knee high compression hose 20-30mm 4 pair dx bilateral leg edema. R60.0 pls fax to [facility], 05/12/19 14:02:00 EST, Compound Start Date: 05/12/19 [...] 11 Refills, Maintenance, 07/23/20 12:00:00 EDT, Tablet, [facility] [id number], 173, cm, 07/19/20 10:52:00 EDT, Height, 86.8, kg, 04/07/20 8:07:00 EST, Dry Weight Start Date: 07/23/20 Stop Date: 07/18/21 Status: Ordered hydrochlorothiazide 12.5 mg oral tablet 1 tablet = 12.5 mg, By Mouth, Daily, # 30 tablet, 11 Refills, Maintenance, 01/04/21 11:11:00 EDT, Tablet, [facility] [id number], Partial fill upon patient request if the [...] 07/18/21 12:01:00 EDT, 07/23/20 12:01:00 EDT, Tablet, [facility] [id number], 173, cm, 07/19/20 10:52:00 EDT, Hei... Start Date: 07/23/20 Stop Date: 07/18/21 Status: Ordered LifeLine LifeLine, See Instructions, # 1 each, Refills 0, Tot. Refills 0, Maintenance, use to call for help in the home as directed length of need 99 B20, F32.9, F11.2 Pt address/#: [address] [address], [address] [phone] Critical Signal... Start Date: 01/15/18 Status: Ordered [...] Date: 09/12/18 Status: Ordered No-nsting skin prep #[id number] No-nsting skin prep #60738720, See Instructions, # 1 bottle, Refills 11, Tot. Refills 11, Maintenance, Use as needed for ostomy care Dx: colostomy, 01/31/18 11:44:14 EDT, Compound Start Date: 01/31/18 Status: Ordered omeprazole 20 mg oral enteric coated capsule 1 capsule = 20 mg, By Mouth, Daily, PRN only if needed for acid reflux symptoms, # 90 capsule, 1 Refills, Maintenance, 07/23/20 12:01:00 EDT, EC Capsule, [facility] [place], [place] - [id number], 173, cm, 07/19/20 10:52:00 EDT, Height, 86.8, [...] tablet, 11 Refills, Maintenance, 08/02/20 17:47:00 EDT, [facility], 172, cm, 07/30/20 16:38:00 EDT, [...] tablet, 11 Refills, Maintenance, 06/22/20 20:22:00 EST, [facility], 173, cm, 04/12/20 11:01:00 EST, [...] mg sublingual film 2 film, Sublingual, Daily, [id number] MassPATchecked. dissolve under tongue, # 56 film, 0 Refills, Maintenance, 12/08/20 23:01:00 EDT, [place], [place] - [id number], fill on 12/13/20-due date, 2 film Sublingual Daily,x28 days,Instr:X... Start Date: 12/08/20 Stop Date: 01/05/21 Status: Ordered traZODone 100 mg oral tablet 1, tablet, By Mouth, Daily at bedtime, PRN, # 30 tablet, Refills 11, Tot. Refills 0, Maintenance, NEEDED FOR insomnia, 07/23/20 12:03:00 EDT, Route to Pharmacy Electronically, [facility], 173, cm, 07/19/20 10:52:00 EDT, Height, 86.8, kg, 04/07... Start Date: 07/23/20 Status: Ordered Triumeq oral tablet 1 tablet, By Mouth, Daily, # 30 tablet, 11 Refills, Maintenance, 07/23/20 12:00:00 EDT, Tablet, [place], [place] - [id number], 1 tablet By Mouth Daily,x30 days, 173, cm, 07/19/20 10:52:00 EDT, Height, 86.8, kg, 04/07/20 8:07:00 Evan MCGOVERN. Start Date: 07/23/20 Stop Date: 07/18/21 Status: Ordered Unisolve adhesive remover #851657 Unisolve adhesive remover #266891, See Instructions, # 1 box, Refills 11, [...] inguinal pain(Confirmed) Active 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) Active *[phone] Care Partn krysten-Jesica Jeter(Confirmed) Active traumatic splenectomy [...]
--- OUTSIDE RECORDS SUMMARY | 2022-12-18 06:32 | XMS_ITS | Continuity of Care Document ---
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 Role Phone Noemi Ruffin MD, I Primary Care Physician [phone] [facility] Date(s): 09/17/20 - 10/17/[address] [address]- Allergies, Adverse Reactions, Alerts Substance Reaction Severity [...] VIS 10/03 4Result Comment: [12/07/2016] diluent LOT [id number] EXP 03/29/2018 5Result Comment: [07/18/2016] Liquid component: [id number], exp.: 05/2017 6Admin Note: VIS 12/13/2006 7Admin Note: vis 10/30/11 8Admin Note: vis 8860-3731 9Admin Note: done at [facility] this past march 10Admin Note: VIS GIVEN 2008- 11Admin Note: vis 11/25/06 Medications acetaminophen 500 mg oral tablet 1 tablet = 500 mg, By Mouth, 2 times a day, PRN for pain, take only if needed, # 60 tablet, 5 Refills, Maintenance, 04/17/19 10:49:00 EST, Tablet, [facility] - [place], [place] -, 172, cm, 04/17/19 9:42:00 EST, Height, 83.7, kg, 04/04/19 0:17:00 E... Start Date: 04/17/19 Stop Date: 10/14/19 Status: Ordered albuterol CFC free 90 mcg/inh inhalation aerosol See Instructions, # 18 Gm, Refills 5 Tot. Refills 5, INHALE 2 PUFFS BY MOUTH INTO THE lungs 4 (FOUR) TIMES DAILY NEEDED FOR SHORTNESS OF BREATH OR FOR WHEEZING, [facility] - [place], [place] - Start Date: 01/21/19 Status: Ordered Alcohol Pads See Instructions, # 50 each, Refills 11, Tot. Refills 11, Maintenance, E11.9 check BG daily, 12/05/18 7:49:59 EDT, Compound Start Date: 12/05/18 Status: Ordered amLODIPine 5 mg oral tablet 1 tablet, By Mouth, Daily, # 30 tablet, 11 Refills, Maintenance, 06/22/20 20:22:00 EST, [facility], 173, cm, 04/12/20 11:01:00 EST, Height, 86.8, kg, 04/07/20 8:07:00 EST, Dry Weight Start Date: 06/22/20 Status: Ordered apixaban 2.5 mg oral tablet 1 tablet = 2.5 mg, By Mouth, 2 times a day, # 60 tablet, 0 Refills, Maintenance, 07/30/20 9:38:00 EDT, Tablet, [facility], Partial fill upon patient [...] 07/14/19 Status: Ordered Talbert Elastic barrier strips #776604 Talbert Elastic barrier strips #893237, See Instructions, # 1 units, Refills 11, Tot. Refills 11, Maintenance, To remove appliance at every change Dx Ulcerative Colitis, 01/31/18 11:44:17 EDT, Compound Start Date: 01/31/18 Status: Ordered busPIRone 5 mg oral tablet 5 mg, 1, tablet, By Mouth, 3 times a day, for anxiety, # 270 tablet, Refills 1, Tot. Refills 1, Maintenance, 04/19/20 11:34:00 EST, Route to Pharmacy Electronically, [facility] [id number], 173, cm, 04/12/20 11:01:00 EST, Heigh... Start Date: 04/19/20 Stop Date: 11/15/20 Status: Ordered carvedilol 12.5 mg oral tablet 12.5 mg, 1, tablet, By Mouth, 2 times a day, increase in dose, # 60 tablet, Refills 11, Tot. Refills 11, Maintenance, 10/12/20 11:48:00 EDT, Route to Pharmacy Electronically, [facility] [id number], Partial fill upon patient re... Start Date: 10/12/20 Stop Date: 10/07/21 Status: Ordered cetirizine 10 mg oral tablet 1 tablet = 10 mg, By Mouth, Daily, PRN if needed for allergy symptoms, do not blister pack, # 90 tablet, 1 Refills, Maintenance, 04/19/20 11:34:00 EST, Tablet, [place], [place] - [id number], 173, cm, 04/12/20 11:01:00 EST, Height, 86.... Start Date: 04/19/20 Stop Date: 10/16/20 Status: Ordered Colace Capsule 100 mg, 1, capsule, By Mouth, 2 times a day, Hold for loose stool, Refills 0, Maintenance, :50:00 EST, Partial fill upon patient request if the prescription is for a schedule II opioid drug. Start Date: 04/12/20 Status: Ordered coloplast #46359 pouch coloplast #14179 pouch, See Instructions, # 20 each, Refills 11, Tot. Refills 11, Maintenance, use as needed for ostomy care. 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 Fax to [facility], 06/25/19 12:46:00 EST, Compound Start Date: 06/25/19 Status: Ordered coloplast #00174 pouch coloplast #04269 pouch, See Instructions, # 40 each, Refills 11, Tot. Refills 11, Maintenance, use as needed for ostomy care. 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 Fax to [facility]). disp 40 coloplast pouche... Start Date: 08/05/19 Status: Ordered coloplast 21568 convex 1 piece coloplast 40677 convex 1 piece, See Instructions, # 1 box, Refills 11, Tot. Refills 11, Maintenance, use for ostomy changes Dx- uc/ileostomy, 07/25/18 11:04:40 EDT, Compound Start Date: 07/25/18 Status: Ordered coloplast bags #38532 coloplast bags #39275, See Instructions, # 20 each, Refills 11, Tot. Refills 11, Maintenance, use as needed for ostomy care Dx. ileostomy Z93.2, 07/14/19 10:56:00 EDT, Compound Start Date: 07/14/19 Status: Ordered Compression Stockings See Instructions, # 4 each, Refills 1, Tot. Refills 1, Maintenance, knee high compression hose 20-30mm 4 pair dx bilateral leg edema. R60.0 pls fax to [facility], 05/12/19 14:02:00 EST, Compound Start Date: [...] 11 Refills, Maintenance, 07/23/20 12:00:00 EDT, Tablet, [place], [place] - [id number], 173, cm, 07/19/20 10:52:00 EDT, Height, 86.8, [...] 07/18/21 12:01:00 EDT, 07/23/20 12:01:00 EDT, Tablet, [facility] [place], [place] - [id number], 173, cm, 07/19/20 10:52:00 EDT, Hei... Start Date: 07/23/20 Stop Date: 07/18/21 Status: Ordered LifeLine LifeLine, See Instructions, # 1 each, Refills 0, Tot. Refills 0, Maintenance, use to call for help in the home as directed length of need 99 B20, F32.9, F11.2 Pt address/#: [address] [place] [address], [address]. [phone] Critical Signal... Start Date: 01/15/18 Status: Ordered [...] Date: 09/12/18 Status: Ordered No-nsting skin prep #[id number] No-nsting skin prep #60376670, See Instructions, # 1 bottle, Refills 11, Tot. Refills 11, Maintenance, Use as needed for ostomy care Dx: colostomy, 01/31/18 11:44:14 EDT, Compound Start Date: 01/31/18 Status: Ordered omeprazole 20 mg oral enteric coated capsule 1 capsule = 20 mg, By Mouth, Daily, PRN only if needed for acid reflux symptoms, # 90 capsule, 1 Refills, Maintenance, 07/23/20 12:01:00 EDT, EC Capsule, [facility] [place], [place] - [id number], 173, cm, 07/19/20 10:52:00 EDT, Height, 86.8, [...] tablet, 11 Refills, Maintenance, 08/02/20 17:47:00 EDT, [facility], 172, cm, 07/30/20 16:38:00 EDT, Height, [...] tablet, 11 Refills, Maintenance, 06/22/20 20:22:00 EST, [facility], 173, cm, 04/12/20 11:01:00 EST, Height, [...] mg sublingual film 2 film, Sublingual, Daily, [id number] MassPATchecked. dissolve under tongue, # 56 film, 0 Refills, Maintenance, 09/21/20 16:49:00 EDT, [place], [place] - [id number], 2 film SublingualDaily,x28 days,Instr:[id number]; MassPATchecked.... Start Date: 09/21/20 Stop Date: 10/19/20 Status: Ordered traZODone 100 mg oral tablet 1, tablet, By Mouth, Daily at bedtime, PRN, # 30 tablet, Refills 11, Tot. Refills 0, Maintenance, NEEDED FOR insomnia, 07/23/20 12:03:00 EDT, Route to Pharmacy Electronically, [facility], 173, cm, 07/19/20 10:52:00 EDT, Height, 86.8, kg, 04/07... Start Date: 07/23/20 Status: Ordered Triumeq oral tablet 1 tablet, By Mouth, Daily, # 30 tablet, 11 Refills, Maintenance, 07/23/20 12:00:00 EDT, Tablet, [facility] - [place], [place] - [id number], 1 tablet By Mouth Daily,x30 days, 173, cm, 07/19/20 10:52:00 EDT, Height, 86.8, kg, 04/07/20 8:07:00 EST, D... Start Date: 07/23/20 Stop Date: 07/18/21 Status: Ordered Unisolve adhesive remover #465423 Unisolve adhesive remover #047246, See Instructions, # 1 box, Refills 11, [...] inguinal pain(Confirmed) Active 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) Active *[phone] Care Partn er-Jesica Jeter(Confirmed) Active traumatic splenectomy [...]
--- OUTSIDE RECORDS SUMMARY | 2022-12-18 06:32 | XMS_ITS | Continuity of Care Document ---
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 Date(s): 11/28/19 - 12/28/19 [facility] [address] [place] [address]- [facility] Allergies, Adverse Reactions, Alerts Substance Reaction Severity [...] VIS 10/03 3Result Comment: [12/07/2016] diluent LOT [id number] EXP 03/29/2018 4Result Comment: [07/18/2016] Liquid component: [id number], exp.: 05/2017 5Admin Note: VIS 12/13/2006 6Admin Note: vis 10/30/11 7Admin Note: vis [id number] 8Admin Note: done at [facility] this past march 9Admin Note: VIS GIVEN 2008- 10Admin Note: vis 11/25/06 Medications acetaminophen 500 mg oral tablet 1 tablet = 500 mg, By Mouth, 2 times a day, PRN for pain, take only if needed, # 60 tablet, 5 Refills, Maintenance, 04/17/19 10:49:00 EST, Tablet, [place], [place] -, 172, cm, 04/17/19 9:42:00 EST, Height, 83.7, kg, 04/04/19 0:17:00 E... Start Date: 04/17/19 Stop Date: 10/14/19 Status: Ordered albuterol CFC free 90 mcg/inh inhalation aerosol See Instructions, # 18 Gm, Refills 5 Tot. Refills 5, INHALE 2 PUFFS BY MOUTH INTO THE lungs 4 (FOUR) TIMES DAILY NEEDED FOR SHORTNESS OF BREATH OR FOR WHEEZING, [place], [place] - Start Date: 01/21/19 Status: Ordered Alcohol Pads See Instructions, # 50 each, Refills 11, Tot. Refills 11, Maintenance, E11.9 check BG daily, 12/05/18 7:49:59 EDT, Compound Start Date: 12/05/18 Status: Ordered amLODIPine 5 mg oral tablet 5 mg, 1, tablet, By Mouth, Daily, # 30 tablet, Refills 11, Tot. Refills 11, Maintenance, 06/16/19 12:27:00 EST, Route to Pharmacy Electronically, [facility] [place], [place] -, 172, cm, 06/16/19 11:20:00 EST, [...] 07/14/19 Status: Ordered Talbert Elastic barrier strips #096549 Talbert Elastic barrier strips #[id number], See Instructions, # 1 units, Refills 11, Tot. Refills 11, Maintenance, To remove appliance at every change Dx Ulcerative Colitis, 01/31/18 11:44:17 EDT, Compound Start Date: 01/31/18 Status: Ordered busPIRone 5 mg oral tablet 5 mg, 1, tablet, By Mouth, 3 times a day, for anxiety, # 90 tablet, Refills 11, Tot. Refills 11, Maintenance, 04/17/19 10:43:00 EST, Route to Pharmacy Electronically, [facility], 172, cm, 04/17/19 9:42:00 EST, Height, 83.7, kg... Start Date: 04/17/19 Stop Date: 04/11/20 Status: Ordered carvedilol 6.25 mg oral tablet 6.25 mg, 1, tablet, By Mouth, 2 times a day, # 60 tablet, Refills 11, Tot. Refills 11, Maintenance,06/16/19 12:25:00 EST, Route to Pharmacy Electronically, [place], [place] -, 172, cm, 06/16/19 11:20:00 EST, [...] 04/17/19 10:43:00 EST, Route to Pharmacy Electronically, [place], [place] -, 172, cm, 04/17/19 9:42:00 EST, Height, 83.7, kg, 04/04/19 0:17:... Start Date: 04/17/19 Stop Date: 04/11/20 Status: Ordered Citrucel 500 mg oral tablet 2 tablet = 1,000 mg, By Mouth, Daily, for 60 days, with plenty of water, # 120 tablet, 1 Refills, Acute 02/12/20 16:54:00 EDT, 10/15/19 16:54:00 EDT, [facility], 172, cm, 06/25/19 10:26:00 EST, Height, 83.7, kg, 04/04/19 0:17:... Start Date: 10/15/19 Stop Date: 02/12/20 Status: Ordered coloplast #78232 pouch coloplast #96596 pouch, See Instructions, # 20 each, Refills 11, Tot. Refills 11, Maintenance, use as needed for ostomy care. 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 Fax to [facility]), 06/25/19 12:46:00 EST, Compound Start Date: 06/25/19 Status: Ordered coloplast #17728 pouch coloplast #43816 pouch, See Instructions, # 40 each, Refills 11, Tot. Refills 11, Maintenance, use as needed for ostomy care. 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 Fax to [facility] ([facility]). disp 40 coloplast pouche... Start Date: 08/05/19 Status: Ordered coloplast 18036 convex 1 piece coloplast 19626 convex 1 piece, See Instructions, # 1 box, Refills 11, Tot. Refills 11, Maintenance, use for ostomy changes Dx- uc/ileostomy, 07/25/18 11:04:40 EDT, Compound Start Date: 07/25/18 Status: Ordered coloplast bags #53768 coloplast bags #96292, See Instructions, # 20 each, Refills 11, [...] 11 Refills, Maintenance, 07/29/19 11:40:00 EDT, Tablet, [facility] [place], [place] -, 172, cm, 06/25/19 10:26:00 EST, Height, 83.7, kg, 04/04/19 0:17:00 EST, Dry Weight Start Date: 07/29/19 Stop Date: 07/23/20 Status: Ordered hydrOXYzine hydrochloride 10 mg oral tablet 2 tablet = 20 mg, By Mouth, 3 times a day, PRN for itching, # 80 tablet, 0 Refills, Maintenance, 06/25/19 11:37:00 EST, Tablet, [place], [place] -, 172, cm, 06/25/19 10:26:00 EST, [...] 01/02/19 10:34:25 EDT, Route to Pharmacy Electronically, [id number], Kate... Start Date: 01/02/19 Stop Date: 07/01/19 Status: Ordered Januvia 50 mg oral tablet 1 tablet = 50 mg, By Mouth, Daily before breakfast, for diabetes, # 30 tablet, 11 Refills, Maintenance, 04/17/19 10:46:00 EST, Tablet, [place], [place] -, 172, cm, 04/17/19 9:42:00 EST, Height, 83.7, kg, 04/04/19 0:17:00 EST, Dry Weight Start Date: 04/17/19 Stop Date: 04/11/20 Status: Ordered LifeLine LifeLine, See Instructions, # 1 each, Refills 0, Tot. Refills 0, Maintenance, use to call for help in the home as directed length of need 99 B20, F32.9, F11.2 Pt address/#: [address] [place] [address], [address]. [phone] Critical Signal... Start Date: 01/15/18 Status: Ordered [...] Date: 09/12/18 Status: Ordered No-nsting skin prep #[id number] No-nsting skin prep #[id number], See Instructions, # 1 bottle, Refills 11, Tot. Refills 11, Maintenance, Use as needed for ostomy care Dx: colostomy, 01/31/18 11:44:14 EDT, Compound Start Date: 01/31/18 Status: Ordered omeprazole 20 mg oral enteric coated capsule 1 capsule = 20 mg, By Mouth, Daily, PRN only if needed for acid reflux symptoms, # 30 capsule, 5 Refills, Maintenance, 04/17/19 10:49:00 EST, EC Capsule, [place], [place] -, 172, cm,04/17/19 9:42:00 EST, Height, [...] tablet, 5 Refills, Maintenance, 07/19/19 13:20:00 EDT, [facility], 172, cm, 06/25/19 10:26:00 EST, Height, 83.7, kg, 12/06/19 0:17:00 EST, Dry Weight Start Date: 07/19/19 [...] 11 Refills, Maintenance, 06/16/19 12:26:00 EST, Tablet, [facility] [place], [place] -, 172, cm, 06/16/19 11:20:00 EST, [...] mg sublingual film 3 each, Sublingual, Daily, [id number], MassPATchecked. dissolve under tongue (ok to divide dose 3x/dif helps w/ pain), # 84 film, 0 Refills, Maintenance, 11/25/19 11:54:00 EDT, [place], [place] - [id number], 3 each Sublingual Daily,x... Start Date: 11/25/19 Stop Date: 12/23/19 Status: Ordered traZODone 100 mg oral tablet 1, tablet, By Mouth, Daily at bedtime, PRN, # 30 tablet, Refills 11, Tot. Refills 0, Maintenance, NEEDED FOR insomnia, 07/19/19 17:09:00 EDT, Route to Pharmacy Electronically, [facility], 172, cm, 06/25/19 10:26:00 EST, Height, 83.7, kg, 04/04... Start Date: 07/19/19 Status: Ordered Triumeq oral tablet 1 tablet, By Mouth, Daily, # 30 tablet, 11 Refills, Maintenance, 07/29/19 11:40:00 EDT, Tablet, [place], [place] -, 1 tablet By Mouth Daily,x30 days, 172, cm, 06/25/19 10:26:00 EST, Height, 83.7, kg, 04/04/19 0:17:00 EST, Dry Weight Start Date: 07/29/19 Stop Date: 07/23/20 Status: Ordered Unisolve adhesive remover #[id number] Unisolve adhesive remover #138439, See Instructions, # 1 box, Refills 11, Tot. Refills 11, Maintenance, To remove appliance at every change Dx Ulcerative Colitis, 01/31/18 11:44:15 EDT, Compound Start Date: 01/31/18 Status: Ordered Voltaren 1% topical gel See Instructions, PRN pain R knee, apply to painful knees 1-2x/day maximum; wash hands after, # 100Gm, 3 Refills, Maintenance, 06/25/19 11:49:00 EST, Gel, [place], [place] -, apply to painful knees 1-2x/day [...] 0 Refills, Maintenance, 06/25/19 11:36:00 EST, Tablet, [facility] [place], [place] -, 172, cm, 06/25/19 10:26:00 EST, [...] inguinal pain(Confirmed) Active 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) Active *[phone] [facility] 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
--- OUTSIDE RECORDS SUMMARY | 2022-12-18 06:32 | XMS_ITS | Continuity of Care Document ---
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 Name Role Phone Laly FERNANDEZ, Noemi Marshall Primary Care Physician Encounter [facility] Date(s): 11/06/19 - 12/06/[address] [address]- [facility] Allergies, Adverse Reactions, Alerts Substance Reaction Severity [...] VIS 10/03 3Result Comment: [12/07/2016] diluent LOT [id number] EXP 03/29/2018 4Result Comment: [07/18/2016] Liquid component: [id number], exp.: 05/2017 5Admin Note: VIS 12/13/2006 6Admin Note: vis 10/30/11 7Admin Note: vis [id number] 8Admin Note: done at [facility] this past march 9Admin Note: VIS GIVEN 2008- 10Admin Note: vis 11/25/06 Medications acetaminophen 500 mg oral tablet 1 tablet = 500 mg, By Mouth, 2 times a day, PRN for pain, take only if needed, # 60 tablet, 5 Refills, Maintenance, 04/17/19 10:49:00 EST, Tablet, [place], [place] -, 172, cm, 04/17/19 9:42:00 EST, Height, 83.7, kg, 04/04/19 0:17:00 E... Start Date: 04/17/19 Stop Date: 10/14/19 Status: Ordered albuterol CFC free 90 mcg/inh inhalation aerosol See Instructions, # 18 Gm, Refills 5 Tot. Refills 5, INHALE 2 PUFFS BY MOUTH INTO THE lungs 4 (FOUR) TIMES DAILY NEEDED FOR SHORTNESS OF BREATH OR FOR WHEEZING, [place], [place] - Start Date: 01/21/19 Status: Ordered Alcohol Pads See Instructions, # 50 each, Refills 11, Tot. Refills 11, Maintenance, E11.9 check BG daily, 12/05/18 7:49:59 EDT, Compound Start Date: 12/05/18 Status: Ordered amLODIPine 5 mg oral tablet 5 mg, 1, tablet, By Mouth, Daily, # 30 tablet, Refills 11, Tot. Refills 11, Maintenance, 06/16/19 12:27:00 EST, Route to Pharmacy Electronically, [facility] [place], [place] -, 172, cm, 06/16/19 11:20:00 EST, [...] 07/14/19 Status: Ordered Talbert Elastic barrier strips #552159 Talbert Elastic barrier strips #[id number], See Instructions, # 1 units, Refills 11, Tot. Refills 11, Maintenance, To remove appliance at every change Dx Ulcerative Colitis, 01/31/18 11:44:17 EDT, Compound Start Date: 01/31/18 Status: Ordered busPIRone 5 mg oral tablet 5 mg, 1, tablet, By Mouth, 3 times a day, for anxiety, # 90 tablet, Refills 11, Tot. Refills 11, Maintenance, 04/17/19 10:43:00 EST, Route to Pharmacy Electronically, [place], [place] -, 172, cm, 04/17/19 9:42:00 EST, Height, 83.7, kg... Start Date: 04/17/19 Stop Date: 04/11/20 Status: Ordered carvedilol 6.25 mg oral tablet 6.25 mg, 1, tablet, By Mouth, 2 times a day, # 60 tablet, Refills 11, Tot. Refills 11, Maintenance,06/16/19 12:25:00 EST, Route to Pharmacy Electronically, [place], [place] -, 172, cm, 06/16/19 11:20:00 EST, [...] 04/17/19 10:43:00 EST, Route to Pharmacy Electronically, [place], [place] -, 172, cm, 04/17/19 9:42:00 EST, Height, 83.7, kg, 04/04/19 0:17:... Start Date: 04/17/19 Stop Date: 04/11/20 Status: Ordered Citrucel 500 mg oral tablet 2 tablet = 1,000 mg, By Mouth, Daily, for 60 days, with plenty of water, # 120 tablet, 1 Refills, Acute 02/12/20 16:54:00 EDT, 10/15/19 16:54:00 EDT, [facility], 172, cm, 06/25/19 10:26:00 EST, Height, 83.7, kg, 04/04/19 0:17:... Start Date: 10/15/19 Stop Date: 02/12/20 Status: Ordered coloplast #39580 pouch coloplast #62150 pouch, See Instructions, # 20 each, Refills 11, Tot. Refills 11, Maintenance, use as needed for ostomy care. 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 Fax to [facility]), 06/25/19 12:46:00 EST, Compound Start Date: 06/25/19 Status: Ordered coloplast #92483 pouch coloplast #75310 pouch, See Instructions, # 40 each, Refills 11, Tot. Refills 11, Maintenance, use as needed for ostomy care. 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 Fax to [facility] ([facility]). disp 40 coloplast pouche... Start Date: 08/05/19 Status: Ordered coloplast 47827 convex 1 piece coloplast 84978 convex 1 piece, See Instructions, # 1 box, Refills 11, Tot. Refills 11, Maintenance, use for ostomy changes Dx- uc/ileostomy, 07/25/18 11:04:40 EDT, Compound Start Date: 07/25/18 Status: Ordered coloplast bags #77839 coloplast bags #17876, See Instructions, # 20 each, Refills 11, Tot. Refills 11, Maintenance, use as needed for ostomy care Dx. ileostomy Z93.2, 07/14/19 10:56:00 EDT, Compound Start Date: 07/14/19 Status: Ordered Compression Stockings See Instructions, # 4 each, Refills 1, Tot. Refills 1, Maintenance, knee high compression hose 20-30mm 4 pair dx bilateral leg edema. R60.0 pls fax to [facility], 05/12/19 14:02:00 EST, Compound Start Date: 05/12/19 [...] Refills, Maintenance, 07/29/19 11:40:00 EDT, Tablet, [facility] [place], [place] -, 172, cm, 06/25/19 10:26:00 EST, Height, 83.7, kg, 04/04/19 0:17:00 EST, Dry Weight Start Date: 07/29/19 Stop Date: 07/23/20 Status: Ordered hydrOXYzine hydrochloride 10 mg oral tablet 2 tablet = 20 mg, By Mouth, 3 times a day, PRN for itching, # 80 tablet, 0 Refills, Maintenance, 06/25/19 11:37:00 EST, Tablet, [place], [place] -, 172, cm, 06/25/19 10:26:00 EST, [...] 01/02/19 10:34:25 EDT, Route to Pharmacy Electronically, [id number], Kate... Start Date: 01/02/19 Stop Date: 07/01/19 Status: Ordered Januvia 50 mg oral tablet 1 tablet = 50 mg, By Mouth, Daily before breakfast, for diabetes, # 30 tablet, 11 Refills, Maintenance, 04/17/19 10:46:00 EST, Tablet, [place], [place] -, 172, cm, 04/17/19 9:42:00 EST, Height, 83.7, kg, 04/04/19 0:17:00 EST, Dry Weight Start Date: 04/17/19 Stop Date: 04/11/20 Status: Ordered LifeLine LifeLine, See Instructions, # 1 each, Refills 0, Tot. Refills 0, Maintenance, use to call for help in the home as directed length of need 99 B20, F32.9, F11.2 Pt address/#: [address] [place] [address], [address]. [phone] Critical Signal... Start Date: 01/15/18 Status: Ordered [...] Date: 09/12/18 Status: Ordered No-nsting skin prep #[id number] No-nsting skin prep #37689721, See Instructions, # 1 bottle, Refills 11, Tot. Refills 11, Maintenance, Use as needed for ostomy care Dx: colostomy, 01/31/18 11:44:14 EDT, Compound Start Date: 01/31/18 Status: Ordered omeprazole 20 mg oral enteric coated capsule 1 capsule = 20 mg, By Mouth, Daily, PRN only if needed for acid reflux symptoms, # 30 capsule, 5 Refills, Maintenance, 04/17/19 10:49:00 EST, EC Capsule, [place], [place] -, 172, cm,04/17/19 9:42:00 EST, Height, [...] tablet, 5 Refills, Maintenance, 07/19/19 13:20:00 EDT, [place], [place] -, 172, cm, 06/25/19 10:26:00 EST, [...] 11 Refills, Maintenance, 06/16/19 12:26:00 EST, Tablet, [place], [place] -, 172, cm, 06/16/19 11:20:00 EST, [...] mg sublingual film 3 each, Sublingual, Daily, [id number], MassPATchecked. dissolve under tongue (ok to divide dose 3x/dif helps w/ pain), # 84 film, 0 Refills, Maintenance, 11/25/19 11:54:00 EDT, [place], [place] - [id number], 3 each Sublingual Daily,x... Start Date: 11/25/19 Stop Date: 12/23/19 Status: Ordered traZODone 100 mg oral tablet 1, tablet, By Mouth, Daily at bedtime, PRN, # 30 tablet, Refills 11, Tot. Refills 0, Maintenance, NEEDED FOR insomnia, 07/19/19 17:09:00 EDT, Route to Pharmacy Electronically, [facility], 172, cm, 06/25/19 10:26:00 EST, Height, 83.7, kg, 04/04... Start Date: 07/19/19 Status: Ordered Triumeq oral tablet 1 tablet, By Mouth, Daily, # 30 tablet, 11 Refills, Maintenance, 07/29/19 11:40:00 EDT, Tablet, [place], [place] -, 1 tablet By Mouth Daily,x30 days, 172, cm, 06/25/19 10:26:00 EST, Height, 83.7, kg, 04/04/19 0:17:00 EST, Dry Weight Start Date: 07/29/19 Stop Date: 07/23/20 Status: Ordered Unisolve adhesive remover #329806 Unisolve adhesive remover #223901, See Instructions, # 1 box, Refills 11, Tot. Refills 11, Maintenance, To remove appliance at every change Dx Ulcerative Colitis, 01/31/18 11:44:15 EDT, Compound Start Date: 01/31/18 Status: Ordered Voltaren 1% topical gel See Instructions, PRN pain R knee, apply to painful knees 1-2x/day maximum; wash hands after, # 100Gm, 3 Refills, Maintenance, 06/25/19 11:49:00 EST, Gel, [place], [place] -, apply to painful knees 1-2x/day [...] 06/25/19 11:36:00 EST, Tablet, [facility] [place], [place] -, 172, cm, 06/25/19 10:26:00 EST, [...] inguinal pain(Confirmed) Active 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) Active *[phone] [facility] 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
--- OUTSIDE RECORDS SUMMARY | 2022-12-18 06:32 | XMS_ITS | Continuity of Care Document ---
Author Name Unknown Organization [facility] Address [address] [place] [address]- Care Team Providers Care Diploma Maker Name Role Phone Laly FERNANDEZ, Noemi Marshall Primary Care Physician Encounter [facility] [id number] Date(s): 06/25/19 - 07/05/[address] [address]- [facility] Attending Physician: Jorge A Sutton Admitting Physician: Jorge A Sutton Referring Physician: AdmtrJorge A Allergies, Adverse Reactions, Alerts Substance Reaction Severity Status ampicillin Active aspirin BLEEDING Persistent Severe Active Pollen NASAL CONGESTION SNEEZING Persistent Mode rate Active NSAIDs bleeding Persistent Severe Active Immunizations Given and Recorded Vaccine Date Status Refusal Reason influenza virus vaccine, inactivated 06/25/19 Give n [...] VIS 10/03 3Result Comment: [12/07/2016] diluent LOT [id number] EXP 03/29/2018 4Result Comment: [07/18/2016] Liquid component: [id number], exp.: 05/2017 5Admin Note: VIS 12/13/2006 6Admin Note: vis 10/30/11 7Admin Note: vis [id number] 8Admin Note: done at [facility] this past march 9Admin Note: VIS GIVEN 2008- 10Admin Note: vis 11/25/06 Medications acetaminophen 500 mg oral tablet 1 tablet = 500 mg, By Mouth, 2 times a day, PRN for pain, take only if needed, # 60 tablet, 5 Refills, Maintenance, 04/17/19 10:49:00 EST, Tablet, [facility] - [place], [place] -, 172, cm, 04/17/19 9:42:00 EST, Height, 83.7, kg, 04/04/19 0:17:00 E... Start Date: 04/17/19 Stop Date: 10/14/19 Status: Ordered albuterol CFC free 90 mcg/inh inhalation aerosol See Instructions, # 18 Gm, Refills 5 Tot. Refills 5, INHALE 2 PUFFS BY MOUTH INTO THE lungs 4 (FOUR) TIMES DAILY NEEDED FOR SHORTNESS OF BREATH OR FOR WHEEZING, [facility] Start Date: 01/21/19 Status: Ordered Alcohol Pads See Instructions, # 50 each, Refills 11, Tot. Refills 11, Maintenance, E11.9 check BG daily, 12/05/18 7:49:59 EDT, Compound Start Date: 12/05/18 Status: Ordered amLODIPine 5 mg oral tablet 5 mg, 1, tablet, By Mouth, Daily, # 30 tablet, Refills 11, Tot. Refills 11, Maintenance, 06/16/19 12:27:00 EST, Route to Pharmacy Electronically, [place], [place] -, 172, cm, 06/16/19 11:20:00 EST, [...] 09/12/18 Status: Ordered Talbert Elastic barrier strips #885232 Talbert Elastic barrier strips #602191, See Instructions, # 1 units, Refills 11, Tot. Refills 11, Maintenance, To remove appliance at every change Dx Ulcerative Colitis, 01/31/18 11:44:17 EDT, Compound Start Date: 01/31/18 Status: Ordered busPIRone 5 mg oral tablet 5 mg, 1, tablet, By Mouth, 3 times a day, for anxiety, # 90 tablet, Refills 11, Tot. Refills 11, Maintenance, 04/17/19 10:43:00 EST, Route to Pharmacy Electronically, [place], [place] -, 172, cm, 04/17/19 9:42:00 EST, Height, 83.7, kg... Start Date: 04/17/19 Stop Date: 04/11/20 Status: Ordered carvedilol 6.25 mg oral tablet 6.25 mg, 1, tablet, By Mouth, 2 times a day, # 60 tablet, Refills 11, Tot. Refills 11, Maintenance,06/16/19 12:25:00 EST, Route to Pharmacy Electronically, [place], [place] -, 172, cm, 06/16/19 11:20:00 EST, [...] 04/17/19 10:43:00 EST, Route to Pharmacy Electronically, [place], [place] -, 172, cm, 04/17/19 9:42:00 EST, Height, 83.7, kg, 04/04/19 0:17:... Start Date: 04/17/19 Stop Date: 04/11/20 Status: Ordered coloplast #87794 pouch coloplast #09934 pouch, See Instructions, # 20 each, Refills 11, Tot. Refills 11, Maintenance, use as needed for ostomy care. 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 Fax to Andre ([facility]), 06/25/19 12:46:00 EST, Compound Start Date: 06/25/19 Status: Ordered coloplast 23889 convex 1 piece coloplast 26026 convex 1 piece, See Instructions, # 1 box, Refills 11, Tot. Refills 11, Maintenance, use for ostomy changes Dx- uc/ileostomy, 07/25/18 11:04:40 EDT, Compound Start Date: 07/25/18 Status: Ordered Compression Stockings See Instructions, # 4 each, Refills 1, Tot. Refills 1, Maintenance, knee high compression hose 20-30mm 4 pair dx bilateral leg edema. R60.0 pls fax [facility], 05/12/19 14:02:00 EST, Compound Start Date: 05/12/19 [...] 0 Refills, Maintenance, 06/25/19 11:37:00 EST, Tablet, [place], [place] -, 172, cm, 06/25/19 10:26:00 EST, [...] 01/02/19 10:34:25 EDT, Route to Pharmacy Electronically, [id number], Kate... Start Date: 01/02/19 Stop Date: 07/01/19 Status: Ordered Januvia 50 mg oral tablet 1 tablet = 50 mg, By Mouth, Daily before breakfast, for diabetes, # 30 tablet, 11 Refills, Maintenance, 04/17/19 10:46:00 EST, Tablet, [place], [place] -, 172, cm, 04/17/19 9:42:00 EST, Height, 83.7, kg, 04/04/19 0:17:00 EST, Dry Weight Start Date: 04/17/19 Stop Date: 04/11/20 Status: Ordered LifeLine LifeLine, See Instructions, # 1 each, Refills 0, Tot. Refills 0, Maintenance, use to call for help in the home as directed length of need 99 B20, F32.9, F11.2 Pt address/#: [address] [place] [address], [address]. [phone] Critical Signal... Start Date: 01/15/18 Status: Ordered no sting skin prep spray no sting skin prep spray, See Instructions, # 1 bottle, Refills 11, Tot. Refills 11, Maintenance, use as needed for ostomy care dx = illeostomy, 09/12/18 10:12:45 EDT, Compound Start Date: 09/12/18 Status: Ordered No-nsting skin prep #[id number] No-nsting skin prep #[id number], See Instructions, # 1 bottle, Refills 11, Tot. Refills 11, Maintenance, Use as needed for ostomy care Dx: colostomy, 01/31/18 11:44:14 EDT, Compound Start Date: 01/31/18 Status: Ordered omeprazole 20 mg oral enteric coated capsule 1 capsule = 20 mg, By Mouth, Daily, PRN only if needed for acid reflux symptoms, # 30 capsule, 5 Refills, Maintenance, 04/17/19 10:49:00 EST, EC Capsule, [facility] - [place], [place] -, 172, cm,04/17/19 9:42:00 EST, Height, [...] 11 Refills, Maintenance, 06/16/19 12:26:00 EST, Tablet, [place], [place] -, 172, cm, 06/16/19 11:20:00 EST, [...] mg sublingual film 2 each, Sublingual, Daily, [id number] MassPAT reviewed dissolve under the tongue fax to [facility] Fill on or after 07/14/19, # 56 each, 0 Refills, Maintenance, 07/14/19 11:42:00 EDT Start Date: 07/14/19 Stop Date: 08/11/19 Status: Ordered traZODone 100 mg oral tablet 100 mg, 1, tablet, By Mouth, Daily at bedtime, PRN, # 30 tablet, Refills 11, Tot. Refills 11, Maintenance, Insomnia, 07/11/18 10:25:23 EDT, Route to Pharmacy Electronically, [id number], [place], [place] - Start Date: 07/11/18 Stop Date: 07/06/19 Status: Ordered Triumeq oral tablet 1 tablet, By Mouth, Daily, # 30 tablet, 11 Refills, Maintenance, 07/11/18 10:25:21 EDT, Tablet, 1 tablet By Mouth Daily,x30 days Start Date: 07/11/18 Stop Date: 07/06/19 Status: Ordered Unisolve adhesive remover #[id number] Unisolve adhesive remover #454001, See Instructions, # 1 box, Refills 11, Tot. Refills 11, Maintenance, To remove appliance at every change Dx Ulcerative Colitis, 01/31/18 11:44:15 EDT, Compound Start Date: 01/31/18 Status: Ordered Voltaren 1% topical gel See Instructions, PRN pain R knee, apply to painful knees 1-2x/day maximum; wash hands after, # 100Gm, 3 Refills, Maintenance, 06/25/19 11:49:00 EST, Gel, [place], [place] -, apply to painful knees 1-2x/day maximum; wash hands after,... Start Date: 06/25/19 Status: Ordered Zofran 4 mg oral tablet 1 tablet = 4 mg, By Mouth, Every 8 hours, # 18 tablet, 0 Refills, Maintenance, 06/25/19 11:36:00 EST, Tablet, [place], [place] -, 172, cm, 06/25/19 10:26:00 EST, [...] inguinal pain(Confirmed) Active 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) Active *[id number]- Care Part ner Jacky Sandhu(Confirmed) Active traumatic [...]
--- OUTSIDE RECORDS SUMMARY | 2022-12-18 06:32 | XMS_ITS | Continuity of Care Document ---
Author Name Unknown Organization 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/[address] [address]- Attending Physician: Erna Bray NP Admitting Physician: Erna Bray NP Allergies, Adverse Reactions, Alerts Substance Reaction Severity Status ampicillin Active aspirin BLEEDING Persistent Severe Active Pollen NASAL CONGESTION SNEEZING Persistent Mode rate Active NSAIDs bleeding Persistent Severe Active Immunizations Given and Recorded Vaccine Date Status Refusal Reason [id number] 12y+ bivalent booster vax 02/02/22 Recorded SARS-CoV-2 [...] VIS 10/03 4Result Comment: [12/07/2016] diluent LOT [id number] EXP 03/29/2018 5Result Comment: [07/18/2016] Liquid component: [id number], exp.: 05/2017 6Admin Note: VIS 12/13/2006 7Admin Note: vis 10/30/11 8Admin Note: vis [id number] 9Admin Note: done at [facility] this past march 10Admin Note: VIS GIVEN 2008- 11Admin Note: vis 11/25/06 Medications acetaminophen 500 mg oral tablet 1 tablet, By Mouth, 4 times a day, PRN NEEDED FOR PAIN, TAKE ONLY IF needed, # 100 tablet, 5 Refills, Maintenance, 04/14/22 15:58:00 EST, [facility] - [place], [place] - [id number], 167, cm, 04/10/22 11:48:00 EST, Height, 89.9, kg, 05/25/21 10:... Start Date: 04/14/22 Status: Ordered Albuterol (Eqv-ProAir HFA) 90 mcg/inh inhalation aerosol 2 puffs, Inhalation, 4 times a day, PRN NEEDED FOR SHORTNESS OF BREATH OR FOR WHEEZING, # 25.5 Gm, 5 Refills, [facility], 4, INHALE 2 PUFFS BY [...] 09/09/21 Status: Ordered Talbert Elastic barrier strips #006327 Talbert Elastic barrier strips #279582, See Instructions, # 120 each, Refills 11, Tot. Refills 11, Maintenance, Dx: K51; Z93. 3 sig: use 4 strips a day with ostomy bag. disp: 4 bags of 30 strips = 120 strips per month. Fax to [facility] [phone], 04... Start Date: 08/21/22 Status: Ordered busPIRone 5 mg oral tablet 1, tablet, By Mouth, 3 times a day, PRN, # 270 tablet, Refills 1, Maintenance, NEEDED FOR ANXIETY, 07/24/22 17:21:00 EDT, Route to Pharmacy Electronically, [facility], 167, cm, 04/10/22 11:48:00 EST, Height, 89.9, kg, 05/25/21 10:21:00 EST, DrCatalino.. Start Date: 07/24/22 Status: Ordered carvedilol 12.5 mg oral tablet 1, tablet, By Mouth, 2 times a day, # 180 tablet, Refills 1, Maintenance, 06/26/22 22:23:00 EST, Route to Pharmacy Electronically, [facility], 167, cm, 04/10/22 11:48:00 EST, Height, 89.9, kg, 05/25/21 10:21:00 EST, Dry Weight Start Date: 06/26/22 Status: Ordered cetirizine 10 mg oral tablet See Instructions, TAKE 1 TABLET BY MOUTH ONCE DAILY NEEDED for allergy, # 90 tablet, 1 Refills, Maintenance, 08/24/22 11:40:00 EDT, [facility], 167, cm, 08/01/22 10:08:00 EDT, Height, 89.9, kg, 05/25/21 10:21:00 EST, Dry Weight Start Date: 08/24/22 Status: Ordered coloplast #03373 pouch coloplast #91159 pouch, See Instructions, # 20 each, Refills 11, Tot. Refills 11, Maintenance, use as needed for ostomy care. 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 Fax to Andre ([facility]), 06/25/19 12:46:00 EST, Compound Start Date: 06/25/19 Status: Ordered coloplast #72142 pouch coloplast #53453 pouch, See Instructions, # 40 each, Refills 11, Tot. Refills 11, Maintenance, use as needed for ostomy care. 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 Fax to Andre ([facility]). disp 40 coloplast pouche... Start Date: 08/05/19 Status: Ordered coloplast 51404 convex 1 piece coloplast 99473 convex 1 piece, See Instructions, # 1 box, Refills 11, Tot. Refills 11, Maintenance, use for ostomy changes Dx- uc/ileostomy, 07/25/18 11:04:40 EDT, Compound Start Date: 07/25/18 Status: Ordered coloplast bags #57742 coloplast bags #11849, See Instructions, # 20 each, Refills 11, [...] leg edema. R60.0 pls fax to [facility], 05/12/19 14:02:00 EST, Compound Start [...] Gm, 5 Refills, Maintenance, 06/27/22 16:38:00 EST, [facility], 30, APPLY TO PAINFUL KNEES 1 TO 2 TIMES A DAY maximum. WASH HANDS AFTER USE, 167, cm,... Start Date: 06/27/22 Status: Ordered Dovato 50 mg-300 mg oral tablet 1 tablet, By Mouth, Daily, *pharmacy: please change triumeq to dovato with the next monthly medication delivery., # 30 tablet, 11 Refills, Maintenance, 04/21/22 14:15:00 EST, Tablet, [facility] - [place], [place] - [phone], Partial fill upon pa... Start Date: 04/21/22 [...] tablet, 11 Refills, Maintenance, 06/27/22 16:38:00 EST, [facility], 167, cm, 04/10/22 11:48:00 EST, [...] 4 boxes/mo ICD 10 Z93. 3; K51 Fax to [facility], 08/14/22 17:37:00 EDT, Supply Start Date: 08/14/22 Status: Ordered hydrochlorothiazide 12.5 mg oral tablet See Instructions, TAKE 1 TABLET BY MOUTH ONCE DAILY, # 30 tablet, 5 Refills, Maintenance, 08/24/22 11:41:00 EDT, [place], [place] - [id number], 167, cm, 08/01/22 10:08:00 EDT, Height, 89.9, [...] 11 Refills, Maintenance, 07/07/22 11:45:00 EST, Tablet, [facility] [place], [place] - [phone], Partial fill upon patient request if the prescription is for a schedule II opioid drug., 167,... Start Date: 07/07/22 Status: Ordered LifeLine LifeLine, See Instructions, # 1 each, Refills 0, Tot. Refills 0, Maintenance, use to call for help in the home as directed length of need 99 B20, F32.9, F11.2 Pt address/#: [address] [place] [address], [address]. [phone] Critical Signal... Start Date: 01/15/18 Status: Ordered [...] Date: 09/12/18 Status: Ordered No-nsting skin prep #[id number] No-nsting skin prep #77086962, See Instructions, # 1 bottle, Refills 11, Tot. Refills 11, Maintenance, Use as needed for ostomy care Dx: colostomy, 01/31/18 11:44:14 EDT, Compound Start Date: 01/31/18 Status: Ordered omeprazole 40 mg oral enteric coated capsule 1 capsule, By Mouth, 2 times a day, # 60 capsule, 1 Refills, Maintenance, 07/24/22 17:23:00 EDT, [facility], 167, cm, 04/10/22 11:48:00 EST, [...] Gm, 5 Refills, Maintenance, 08/24/22 15:20:00 EDT, [facility], 30, DISSOLVE 17GM IN WATER [...] Ready Bath Disposable Wipes, See Instructions, # 5 each, Refills 11, Tot. Refills 11, Maintenance, Disp: 5 boxes/mo ICD 10 Z93. 3; K51 Fax to [facility], 08/14/22 17:38:00 EDT, Supply Start Date: 08/14/22 Status: Ordered Recliner seat Recliner seat, See [...] 84film, 0 Refills, Maintenance, 08/08/22 21:41:00 EDT, [facility] [id number], 3 film Sublingual Daily,x28 days,Instr:pls fill... Start Date: 08/08/22 Stop Date: 09/05/22 Status: Ordered traZODone 100 mg oral tablet 1, tablet, By Mouth, Daily at bedtime, PRN, # 90 tablet, Refills 1, Maintenance, NEEDED FOR insomnia, 06/27/22 16:38:00 EST, Route to Pharmacy Electronically, [facility], 167, cm, 04/10/22 11:48:00 EST, Height, 89.9, kg, 05/25/21 10:21:00 EST,... Start Date: 06/27/22 Status: Ordered Trulicity Pen 0.75 mg/0.5 mL subcutaneous solution 0.5 mL = 0.75 mg, Subcutaneous Injection, Every week, rotate injection sites, # 2 mL, 11 Refills, Maintenance, 07/07/22 11:45:00 EST, Solution, [facility] [phone], Partialfill upon patient request if the prescription is fo... 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 [facility] (scapholunate advanced [...] Team Personnel Name: Maru Grey [facility] Associate Professional Member Role: Primary Care Nurse Address: Address: [address] [place] [address] [place] [address]- Name: Arianne George RN Position: [facility] RN Member Role: Primary Care Nurse Name: Radha Ewing RN Position: [facility] RN Member Role: Primary Care Nurse Name: Macey Trevino RN Position: [facility] PCO RN Member Role: Primary Care Nurse Name: Nesha Leigh RN Position: [facility] SN RN Member Role: Primary Care Nurse Name: Alanna Ashby RN Position: [facility] RN Member Role: Primary Care Nurse Name: Loren Jimenez RN Position: [facility] RN Member Role: Primary Care Nurse Name: Starr Poon RN Position: [facility] SN RN Member Role: Primary Care Nurse Name: Vilma Perez RN Position: [facility] MR W/ Merge Member Role: Primary Care Nurse Name: John Noguera RN Position: [facility] RN Member Role: Primary Care Nurse Name: Dunia Arechiga RN Position: [facility] RN Member Role: Primary Care Nurse Name: Kamilah Baron Position: [facility] PCO TA Member Role: Primary Care Nurse Name: Ro Lopez RN Position: [facility] RN Member Role: Primary Care Nurse Name: Kosta Braun III, RN Position: [facility] RN Member Role: Primary Care Nurse Name: Lauryn Jiménez RN Position: [facility] Flyer Builder Member Role: Primary Care Nurse Name: Jorge Ching RN Position: [facility] RN Member Role: Primary Care Nurse Name: Valarie Srivastava RN Position: [facility] RN Member Role: Primary Care Nurse Name: Monica Jacobs RN Position: [facility] RN Member Role: Primary Care Nurse Name: Johanna Castaneda RN Position: [facility] RN Member Role: Primary Care Nurse Address: Address: [address] [place] [address]- Name: Luisa Zavaleta RN Position: [facility] AMB Nurse Member Role: Primary Care Nurse Name: Yulissa Mora RN Position: [facility] SN RN Member Role: Primary Care Nurse Name: Francine Abrams RN Position: [facility] RN Member Role: Primary Care Nurse Name: Shea Marinelli RN Position: [facility] RN Member Role: Primary Care Nurse Name: Mora Gooden MD Position: [facility] Primary Care Physician Member Role: PCP Address: Address: [address] [place] [address]- Care Team Related Persons Name: PEGGY GARDNER Address: home [address] [place] [address] Name: JLUIS WHITE NAME Name: ADIA WINTERS
--- OUTSIDE RECORDS SUMMARY | 2022-12-18 06:32 | XMS_ITS | Continuity of Care Document ---
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 Phone Laly FERNANDEZ, Noemi Marshall Primary Care Physician [facility] Date[facility]): 07/14/21 - 08/13/[address] [address]- Allergies, Adverse Reactions, Alerts Substance Reaction Severity [...] VIS 10/03 4Result Comment: [12/07/2016] diluent LOT [id number] EXP 03/29/2018 5Result Comment: [07/18/2016] Liquid component: [id number], exp.: 05/2017 6Admin Note: VIS 12/13/2006 7Admin Note: vis 10/30/11 8Admin Note: vis [id number] 9Admin Note: done at [facility] this past march 10Admin Note: VIS GIVEN 2008- 11Admin Note: vis 11/25/06 Medications acetaminophen 500 mg oral tablet 1 tablet, By Mouth, 2 times a day, PRN NEEDED FOR PAIN, TAKE ONLY IF needed, # 60 tablet, 5 Refills, [facility], 172, cm, 01/18/21 12:02:00 EDT, Height, 89.7, kg, 07/29/20 7:42:00 EDT, Dry Weight Start Date: 01/27/21 Status: Ordered Albuterol (Eqv-ProAir HFA) 90 mcg/inh inhalation aerosol 2 puffs, Inhalation, 4 times a day, PRN NEEDED FOR SHORTNESS OF BREATH OR FOR WHEEZING, # 25.5 Gm, 1 Refills, Maintenance, 02/21/21 9:52:00 EDT, [place], [place] - [id number], 2 puffs Inhalation 4 times a day,PRN: [...] 07/26/21 14:15:00 EDT, Route to Pharmacy Electronically, [facility] [id number], Partial fill upon patient request if the [...] 07/14/19 Status: Ordered Talbert Elastic barrier strips #980628 Talbert Elastic barrier strips #286248, See Instructions, # 1 units, Refills 11, Tot. Refills 11, Maintenance, To remove appliance at every change Dx Ulcerative Colitis, 01/31/18 11:44:17 EDT, Compound Start Date: 01/31/18 Status: Ordered busPIRone 5 mg oral tablet 1, tablet, By Mouth, 3 times a day, FOR ANXIETY., # 90 tablet, Refills 1, Route to Pharmacy Electronically, [facility], 167, cm, 05/26/21 7:07:00 EST, Height, 89.9, kg, 05/25/21 10:21:00 EST, Dry Weight Start Date: 06/22/21 Status: Ordered carvedilol 12.5 mg oral tablet 12.5 mg, 1, tablet, By Mouth, 2 times a day, increase in dose, # 60 tablet, Refills 11, Tot. Refills 11, Maintenance, 10/12/20 11:48:00 EDT, Route to Pharmacy Electronically, [place], [place] - [id number], Partial fill upon patient re... Start Date: 10/12/20 Stop Date: 10/07/21 Status: Ordered cetirizine 10 mg oral tablet 1 tablet, By Mouth, Daily, PRN NEEDED for allergy, # 90 tablet, 1 Refills, Maintenance, 04/21/2112:42:00 EST, [place], [place] - [id number], 172, cm, 02/22/21 10:36:00 EDT, Height, 89.7, kg, 07/29/20 7:42:00 EDT, Dry Weight Start Date: 04/21/21 Status: Ordered coloplast #81005 pouch coloplast #17139 pouch, See Instructions, # 20 each, Refills 11, Tot. Refills 11, Maintenance, use as needed for ostomy care. 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 Fax to Andre ([facility]), 06/25/19 12:46:00 EST, Compound Start Date: 06/25/19 Status: Ordered coloplast #45800 pouch coloplast #99138 pouch, See Instructions, # 40 each, Refills 11, Tot. Refills 11, Maintenance, use as needed for ostomy care. 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 Fax to Andre ([facility]). disp 40 coloplast pouche... Start Date: 08/05/19 Status: Ordered coloplast 68749 convex 1 piece coloplast 23766 convex 1 piece, See Instructions, # 1 box, Refills 11, Tot. Refills 11, Maintenance, use for ostomy changes Dx- uc/ileostomy, 07/25/18 11:04:40 EDT, Compound Start Date: 07/25/18 Status: Ordered coloplast bags #34894 coloplast bags #33013, See Instructions, # 20 each, Refills 11, Tot. Refills 11, Maintenance, use as needed for ostomy care Dx. ileostomy Z93.2, 07/14/19 10:56:00 EDT, Compound Start Date: 07/14/19 Status: Ordered Compression Stockings See Instructions, # 4 each, Refills 1, Tot. Refills 1, Maintenance, knee high compression hose 20-30mm 4 pair dx bilateral leg edema. R60.0 pls fax to [facility], 05/12/19 14:02:00 EST, Compound Start [...] a day, # 60 tablet, 11 Refills, [facility], 167, cm, 05/26/21 7:07:00 EST, Height, 89.9, kg, 05/25/21 10:21:00 EST, Dry Weight Start Date: 07/25/21 Status: Ordered hydrochlorothiazide 12.5 mg oral tablet 1 tablet = 12.5 mg, By Mouth, Daily, # 30 tablet, 11 Refills, Maintenance, 01/04/21 11:11:00 EDT, Tablet, [place], [place] - [id number], Partial fill upon patient request if the [...] 99 B20, F32.9, F11.2 Pt address/#: [address] [address], [address]. [phone] Critical Signal... Start Date: 01/15/18 Status: Ordered [...] Refills, Maintenance, 08/08/21 11:49:00 EDT, REC Powder, [place], [place] - [id number], Partial fill upon patient request if the [...] Date: 09/12/18 Status: Ordered No-nsting skin prep #43016281 No-nsting skin prep #25705913, See Instructions, # 1 bottle, Refills 11, Tot. Refills 11, Maintenance, Use as needed for ostomy care Dx: colostomy, 01/31/18 11:44:14 EDT, Compound Start Date: 01/31/18 Status: Ordered omeprazole 40 mg oral enteric coated capsule 1 capsule, By Mouth, 2 times a day, # 60 capsule, 1 Refills, [facility], 167, cm, 05/26/21 7:07:00 EST, [...] tablet, 1 Refills, Maintenance, 07/25/21 12:03:00 EDT, [place], [place] - [id number], 167, cm, 05/26/21 7:07:00 EST, Height, 89.9, [...] Mouth, Daily, # 45 tablet, 11 Refills, [facility], 167, cm, 05/26/21 7:07:00 EST, Height, 89.9, kg, 05/25/21 10:21:00 EST, Dry Weight Start Date: 06/22/21 Status: Ordered sitaGLIPtin 25 mg oral tablet 1 tablet = 25 mg, By Mouth, Daily, pls note the lower dose., # 30 tablet, 11 Refills, Maintenance, 08/11/21 15:34:00 EDT, Tablet, [facility] - [place], [place] - [phone], Partial fill upon patient request if the [...] mg sublingual film 3 film, Sublingual, Daily, [id number] MassPATchecked. dissolve under tongue fill on or after 08/11/21when due., # 84 film, 0 Refills, Maintenance, 08/08/21 15:56:00 EDT, [place], [place] - [id number], increase in dose from 16 mg... Start Date: 08/08/21 Stop Date: 09/05/21 Status: Ordered traZODone 100 mg oral tablet 1, tablet, By Mouth, Daily at bedtime, PRN, # 90 tablet, Refills 1, Tot. Refills 1, Maintenance, ASNEEDED FOR insomnia, 07/25/21 12:04:00 EDT, Route to Pharmacy Electronically, [facility], [place] - [id number], 167, cm, 05/26/21 7:07:00... Start Date: 07/25/21 Status: Ordered Triumeq oral tablet 1 tablet, By Mouth, Daily, # 30 tablet, 11 Refills, [facility], 30, TAKE ONE TABLET BY MOUTH DAILY, 167, cm, 05/26/21 7:07:00 EST, Height, 89.9, kg, 05/25/21 10:21:00 EST, Dry Weight Start Date: 07/25/21 Status: Ordered Unisolve adhesive remover #411261 Unisolve adhesive remover #786497, See Instructions, # 1 box, Refills 11, [...] in obese(Confirmed) Active Obese class I(Confirmed) Active *[id number] Care Partn krysten-Jesica Jeter(Confirmed) Active traumatic splenectomy [...]
--- OUTSIDE RECORDS SUMMARY | 2022-12-18 06:32 | XMS_ITS | Continuity of Care Document ---
Author Name Unknown Organization 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 Phone Noemi Ruffin MD, I Primary Care Physician [facility]counter [facility] Date[facility]s): 03/23/20 - 04/22/[address] [address]- Allergies, Adverse Reactions, Alerts Substance Reaction Severity [...] VIS 10/03 3Result Comment: [12/07/2016] diluent LOT [id number] EXP 03/29/2018 4Result Comment: [07/18/2016] Liquid component: [id number], exp.: 05/2017 5Admin Note: VIS 12/13/2006 6Admin Note: vis 10/30/11 7Admin Note: vis [id number] 8Admin Note: done at [facility] this past march 9Admin Note: VIS GIVEN 2008- 10Admin Note: vis 11/25/06 Medications acetaminophen 500 mg oral tablet 1 tablet = 500 mg, By Mouth, 2 times a day, PRN for pain, take only if needed, # 60 tablet, 5 Refills, Maintenance, 04/17/19 10:49:00 EST, Tablet, [facility] [place] [facility] [place], [place] -, 172, cm, 04/17/19 9:42:00 EST, Height, 83.7, kg, 04/04/19 0:17:00 E... Start Date: 04/17/19 Stop Date: 10/14/19 Status: Ordered albuterol CFC free 90 mcg/inh inhalation aerosol See Instructions, # 18 Gm, Refills 5 Tot. Refills 5, INHALE 2 PUFFS BY MOUTH INTO THE lungs 4 (FOUR) TIMES DAILY NEEDED FOR SHORTNESS OF BREATH OR FOR WHEEZING, [place], [place] - Start Date: 01/21/19 Status: Ordered Alcohol Pads See Instructions, # 50 each, Refills 11, Tot. Refills 11, Maintenance, E11.9 check BG daily, 12/05/18 7:49:59 EDT, Compound Start Date: 12/05/18 Status: Ordered amLODIPine 5 mg oral tablet 5 mg, 1, tablet, By Mouth, Daily at bedtime, # 30 tablet, Refills 11, Tot. Refills 11, Maintenance,06/16/19 12:27:00 EST, Route to Pharmacy Electronically, [place], [place] -, 172, cm, 06/16/19 11:20:00 EST, [...] 07/14/19 Status: Ordered Talbert Elastic barrier strips #725284 Talbert Elastic barrier strips #162750, See Instructions, # 1 units, Refills 11, [...] 04/19/20 11:34:00 EST, Route to Pharmacy Electronically, [place], [place]- [id number], 173, cm, 04/12/20 11:01:00 EST, Heigh... Start Date: 04/19/20 Stop Date: 11/15/20 Status: Ordered carvedilol 6.25 mg oral tablet 6.25 mg, 1, tablet, By Mouth, 2 times a day, # 60 tablet, Refills 11, Tot. Refills 11, Maintenance,06/16/19 12:25:00 EST, Route to Pharmacy Electronically, [place], [place] -, 172, cm, 06/16/19 11:20:00 EST, Height, 83.7, kg, ... Start Date: 06/16/19 Stop Date: 06/10/20 Status: Ordered cetirizine 10 mg oral tablet 1 tablet = 10 mg, By Mouth, Daily, PRN if needed for allergy symptoms, do not blister pack, # 90 tablet, 1 Refills, Maintenance, 04/19/20 11:34:00 EST, Tablet, [place], [place] - [id number], 173, cm, 04/12/20 11:01:00 EST, Height, 86.... [...] 1 Refills, Maintenance, 03/16/20 13:27:00 EST, Granule, [facility] - [place], [place] - [id number], Partial fill u... Start Date: 03/16/20 Stop Date: 05/15/20 Status: Ordered coloplast #81818 pouch coloplast #35448 pouch, See Instructions, # 20 each, Refills 11, Tot. Refills 11, Maintenance, use as needed for ostomy care. 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 Fax to Andre ([facility]), 06/25/19 12:46:00 EST, Compound Start Date: 06/25/19 Status: Ordered coloplast #12524 pouch coloplast #26921 pouch, See Instructions, # 40 each, Refills 11, Tot. Refills 11, Maintenance, use as needed for ostomy care. 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 Fax to Andre ([facility]). disp 40 coloplast pouche... Start Date: 08/05/19 Status: Ordered coloplast 95517 convex 1 piece coloplast 85840 convex 1 piece, See Instructions, # 1 box, Refills 11, Tot. Refills 11, Maintenance, use for ostomy changes Dx- uc/ileostomy, 07/25/18 11:04:40 EDT, Compound Start Date: 07/25/18 Status: Ordered coloplast bags #87493 coloplast bags #83436, See Instructions, # 20 each, Refills 11, Tot. Refills 11, Maintenance, use as needed for ostomy care Dx. ileostomy Z93.2, 07/14/19 10:56:00 EDT, Compound Start Date: 07/14/19 Status: Ordered Compression Stockings See Instructions, # 4 each, Refills 1, Tot. Refills 1, Maintenance, knee high compression hose 20-30mm 4 pair dx bilateral leg edema. R60.0 pls fax to [facility], 05/12/19 14:02:00 EST, Compound Start [...] 11 Refills, Maintenance, 07/29/19 11:40:00 EDT, Tablet, [facility] [place] [facility] [place], [place] -, 172, cm, 06/25/19 10:26:00 EST, Height, 83.7, kg, 04/04/19 0:17:00 EST, Dry Weight Start Date: 07/29/19 Stop Date: 07/23/20 Status: Ordered Januvia 50 mg oral tablet 1 tablet = 50 mg, By Mouth, Daily before breakfast, for diabetes, # 90 tablet, 0 Refills, Maintenance, 04/19/20 11:35:00 EST, Tablet, [facility] - [place], [place] - [id number], 173, cm, 04/12/2011:01:00 EST, Height, 86.8, kg, 04/07/20 8:07:00 ES... Start Date: 04/19/20 Stop Date: 04/14/21 Status: Ordered LifeLine LifeLine, See Instructions, # 1 each, Refills 0, Tot. Refills 0, Maintenance, use to call for help in the home as directed length of need 99 B20, F32.9, F11.2 Pt address/#: [address] [place] [address], [address]. [phone] Critical Signal... Start Date: 01/15/18 Status: Ordered [...] Date: 09/12/18 Status: Ordered No-nsting skin prep #[id number] No-nsting skin prep #87739201, See Instructions, # 1 bottle, Refills 11, Tot. Refills 11, Maintenance, Use as needed for ostomy care Dx: colostomy, 01/31/18 11:44:14 EDT, Compound Start Date: 01/31/18 Status: Ordered omeprazole 20 mg oral enteric coated capsule 1 capsule = 20 mg, By Mouth, Daily, PRN only if needed for acid reflux symptoms, # 90 capsule, 0 Refills, Maintenance, 04/19/20 11:34:00 EST, EC Capsule, [facility] [place] [facility] [place], [place] - [id number], 173, cm, 04/12/20 11:01:00 EST, Height, 86.8, [...] 11 Refills, Maintenance, 06/16/19 12:26:00 EST, Tablet, [facility] - [place], [place] -, 172, cm, 06/16/19 11:20:00 EST, [...] 07/19/19 17:09:00 EDT, Route to Pharmacy Electronically, [facility], 172, cm, 06/25/19 10:26:00 EST, Height, 83.7, kg, 04/04... Start Date: 07/19/19 Status: Ordered Triumeq oral tablet 1 tablet, By Mouth, Daily, # 30 tablet, 11 Refills, Maintenance, 07/29/19 11:40:00 EDT, Tablet, [facility] - [place], [place] -, 1 tablet By Mouth Daily,x30 days, 172, cm, 06/25/19 10:26:00 EST, Height, 83.7, kg, 04/04/19 0:17:00 EST, Dry Weight Start Date: 07/29/19 Stop Date: 07/23/20 Status: Ordered Unisolve adhesive remover #716376 Unisolve adhesive remover #836447, See Instructions, # 1 box, Refills 11, Tot. Refills 11, Maintenance, To remove appliance at every change Dx Ulcerative Colitis, 01/31/18 11:44:15 EDT, Compound Start Date: 01/31/18 Status: Ordered warfarin 1 mg oral tablet See Instructions, Take 1-10 tablets By Mouth Daily as directed by EVELYN, # 150 tablet, 0 Refills, Maintenance, 04/12/20 8:51:00 EST, Tablet, [facility], Partial fill upon patient requestif the [...] inguinal pain(Confirmed) Active 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) Active *[phone] Care Partn er-Jesica Jeter(Confirmed) Active traumatic splenectomy [...]
--- OUTSIDE RECORDS SUMMARY | 2022-12-18 06:32 | XMS_ITS | Continuity of Care Document ---
Author Name Unknown Organization [facility] Address [address] [place] [address]- Care Team Providers Care Boating Safety Officer Name Role Phone Laly FERNANDEZ, Noemi Marshall Primary Care Physician [facility] Date(s): 01/23/21 - 02/22/[address] [address]- Allergies, Adverse Reactions, Alerts Substance Reaction Severity [...] VIS 10/03 4Result Comment: [12/07/2016] diluent LOT [id number] EXP 03/29/2018 5Result Comment: [07/18/2016] Liquid component: [id number], exp.: 05/2017 6Admin Note: VIS 12/13/2006 7Admin Note: vis 10/30/11 8Admin Note: vis [id number] 9Admin Note: done at [facility] this past march 10Admin Note: VIS GIVEN 2008- 11Admin Note: vis 11/25/06 Medications acetaminophen 500 mg oral tablet 1 tablet, By Mouth, 2 times a day, PRN NEEDED FOR PAIN, TAKE ONLY IF needed, # 60 tablet, 5 Refills, [facility], 172, cm, 01/18/21 12:02:00 EDT, Height, 89.7, kg, 07/29/20 7:42:00 EDT, Dry Weight Start Date: 01/27/21 Status: Ordered Albuterol (Eqv-ProAir HFA) 90 mcg/inh inhalation aerosol 2 puffs, Inhalation, 4 times a day, PRN NEEDED FOR SHORTNESS OF BREATH OR FOR WHEEZING, # 25.5 Gm, 1 Refills, Maintenance, 02/21/21 9:52:00 EDT, [place], [place] - [id number], 2 puffs Inhalation 4 times a day,PRN: [...] 5 Refills, Maintenance, 11/05/20 12:56:00 EDT, Tablet, [place], [place] - [id number], Partial fill uponpatient request if the prescription is for a schedu... Start Date: 11/05/20 Status: Ordered apixaban 2.5 mg oral tablet 1 tablet = 2.5 mg, By Mouth, 2 times a day, # 60 tablet, 0 Refills, Maintenance, 07/30/20 9:38:00 EDT, Tablet, [facility] 3, Partial fill upon patient request [...] 07/14/19 Status: Ordered Talbert Elastic barrier strips #200519 Talbert Elastic barrier strips #322239, See Instructions, # 1 units, Refills 11, Tot. Refills 11, Maintenance, To remove appliance at every change Dx Ulcerative Colitis, 01/31/18 11:44:17 EDT, Compound Start Date: 01/31/18 Status: Ordered busPIRone 5 mg oral tablet 1, tablet, By Mouth, 3 times a day, FOR ANXIETY., # 270 tablet, Refills 1, Tot. Refills 0, Maintenance, 10/26/20 10:29:00 EDT, Route to Pharmacy Electronically, [facility], 172, cm, 07/30/20 16:38:00 EDT, Height, 89.7, kg, 07/29/20 7:42:00 EDT, D... Start Date: 10/26/20 Status: Ordered carvedilol 12.5 mg oral tablet 12.5 mg, 1, tablet, By Mouth, 2 times a day, increase in dose, # 60 tablet, Refills 11, Tot. Refills 11, Maintenance, 10/12/20 11:48:00 EDT, Route to Pharmacy Electronically, [facility] [place], [place] - [id number], Partial fill upon patient re... Start Date: 10/12/20 Stop Date: 10/07/21 Status: Ordered cetirizine 10 mg oral tablet 1 tablet, By Mouth, Daily, PRN NEEDED for allergy, # 90 tablet, 1 Refills, Maintenance, 10/26/2109:30:00 EDT, [facility], 172, cm, 07/30/20 16:38:00 EDT, Height, 89.7, kg, 07/29/20 7:42:00 EDT, Dry Weight Start Date: 10/26/20 Status: Ordered Colace Capsule 100 mg, 1, capsule, By Mouth, 2 times a day, Hold for loose stool, Refills 0, Maintenance, 208:50:00 EST, Partial fill upon patient request if the prescription is for a schedule II opioid drug. Start Date: 04/12/20 Status: Ordered coloplast #28217 pouch coloplast #21907 pouch, See Instructions, # 20 each, Refills 11, Tot. Refills 11, Maintenance, use as needed for ostomy care. 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 Fax to Andre ([facility]), 06/25/19 12:46:00 EST, Compound Start Date: 06/25/19 Status: Ordered coloplast #84461 pouch coloplast #91842 pouch, See Instructions, # 40 each, Refills 11, Tot. Refills 11, Maintenance, use as needed for ostomy care. 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 Fax to Andre ([facility]). disp 40 coloplast pouche... Start Date: 08/05/19 Status: Ordered coloplast 42926 convex 1 piece coloplast 25891 convex 1 piece, See Instructions, # 1 box, Refills 11, Tot. Refills 11, Maintenance, use for ostomy changes Dx- uc/ileostomy, 07/25/18 11:04:40 EDT, Compound Start Date: 07/25/18 Status: Ordered coloplast bags #82721 coloplast bags #25320, See Instructions, # 20 each, Refills 11, Tot. Refills 11, Maintenance, use as needed for ostomy care Dx. ileostomy Z93.2, 07/14/19 10:56:00 EDT, Compound Start Date: 07/14/19 Status: Ordered Compression Stockings See Instructions, # 4 each, Refills 1, Tot. Refills 1, Maintenance, knee high compression hose 20-30mm 4 pair dx bilateral leg edema. R60.0 pls fax to [facility], 05/12/19 14:02:00 EST, Compound Start Date: [...] 11 Refills, Maintenance, 07/23/20 12:00:00 EDT, Tablet, [facility] [phone], 173, cm, 07/19/20 10:52:00 EDT, Height, 86.8, kg, 04/07/20 8:07:00 EST, Dry Weight Start Date: 07/23/20 Stop Date: 07/18/21 Status: Ordered hydrochlorothiazide 12.5 mg oral tablet 1 tablet = 12.5 mg, By Mouth, Daily, # 30 tablet, 11 Refills, Maintenance, 01/04/21 11:11:00 EDT, Tablet, [facility] [phone], Partial fill upon patient request if the [...] 07/18/21 12:01:00 EDT, 07/23/20 12:01:00 EDT, Tablet, [facility] [id number], 173, cm, 07/19/20 10:52:00 EDT, Hei... Start Date: 07/23/20 Stop Date: 07/18/21 Status: Ordered LifeLine LifeLine, See Instructions, # 1 each, Refills 0, Tot. Refills 0, Maintenance, use to call for help in the home as directed length of need 99 B20, F32.9, F11.2 Pt [facility] [address] [address]. [phone] Critical Signal... Start Date: 01/15/18 Status: Ordered [...] Date: 09/12/18 Status: Ordered No-nsting skin prep #[id number] No-nsting skin prep #92483196, See Instructions, # 1 bottle, Refills 11, Tot. Refills 11, Maintenance, Use as needed for ostomy care Dx: colostomy, 01/31/18 11:44:14 EDT, Compound Start Date: 01/31/18 Status: Ordered omeprazole 20 mg oral enteric coated capsule 1 capsule = 20 mg, By Mouth, Daily, PRN only if needed for acid reflux symptoms, # 90 capsule, 0 Refills, Maintenance, 01/21/21 6:58:00 EDT, EC Capsule, [facility], 172, cm, 01/18/21 12:02:00 [...] tablet, 11 Refills, Maintenance, 08/02/20 17:47:00 EDT, [facility], 172, cm, 07/30/20 16:38:00 EDT, Height, [...] tablet, 11 Refills, Maintenance, 06/22/20 20:22:00 EST, [facility], 173, cm, 04/12/20 11:01:00 EST, Height, [...] mg sublingual film 3 film, Sublingual, Daily, [id number] MassPATchecked. dissolve under tongue, # 84 film, 0 Refills, Maintenance, 02/08/21 17:07:00 EDT, [place], [place] - [id number], increase in dose from 16 mg to 24 mg daily, 3 film Sublingual Jennifer... Start Date: 02/08/21 Stop Date: 03/08/21 Status: Ordered traZODone 100 mg oral tablet 1, tablet, By Mouth, Daily at bedtime, PRN, # 30 tablet, Refills 11, Tot. Refills 0, Maintenance, NEEDED FOR insomnia, 07/23/20 12:03:00 EDT, Route to Pharmacy Electronically, [facility], 173, cm, 07/19/20 10:52:00 EDT, Height, 86.8, kg, 04/07... Start Date: 07/23/20 Status: Ordered Triumeq oral tablet 1 tablet, By Mouth, Daily, # 30 tablet, 11 Refills, Maintenance, 07/23/20 12:00:00 EDT, Tablet, [facility] - [place], [place] - [id number], 1 tablet By Mouth Daily,x30 days, 173, cm, 07/19/20 10:52:00 EDT, Height, 86.8, kg, 04/07/20 8:07:00 Evan MCGOVERN. Start Date: 07/23/20 Stop Date: 07/18/21 Status: Ordered Unisolve adhesive remover #370229 Unisolve adhesive remover #430027, See Instructions, # 1 box, Refills 11, [...] inguinal pain(Confirmed) Active 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) Active *[phone] Care Partn krysten-Jesica Jeter(Confirmed) Active traumatic splenectomy [...]
[2022-12-18 06:33] LABS: Alanine Aminotransferase 21 U/L (0-40); Albumin Level 4.2 g/dL (3.5-5.0); Alkaline Phosphatase 83 U/L (39-117); Anion Gap 16 (12-20); Aspartate Amino Transferase 17 U/L (5-37); Bilirubin Direct 0.1 mg/dL (0.0-0.5); Bilirubin Total 0.3 mg/dL (0.0-1.0); Blood Urea Nitrogen 44 mg/dL (9-16); Calcium 10.4 mg/dL (8.4-10.2); Carbon Dioxide 24 mmol/L (22-29); Chloride 105 mmol/L (96-108); Creatinine Clr Calc Pharmacy 23.7; Estimated Glomerular Filt Rate 21; Glucose Random 216 mg/dL (60-115); Lipase 30 U/L (8-78); Potassium 4.3 mmol/L (3.3-5.1); Sodium 141 mmol/L (135-145); Total Protein 7.9 g/dL (6.5-8.0)
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
--- OUTSIDE RECORDS SUMMARY | 2022-12-18 06:33 | XMS_ITS | Continuity of Care Document ---
Author Name Unknown Organization [facility] ter Address [address] [place] [address]- Care Team Providers Care Parimutuel Cashier Name Role Phone Laly FERNANDEZ, Noemi Marshall Primary Care Physician [phone] [facility]counter [facility] Date(s): 05/16/19 - 05/23/[address] [address]- [facility] Attending Physician: Not on Staff, Attending MD Allergies, Adverse Reactions, Alerts Substance Reaction [...] VIS 10/03 3Result Comment: [12/07/2016] diluent LOT [id number] EXP 03/29/2018 4Result Comment: [07/18/2016] Liquid component: [id number], exp.: 05/2017 5Admin Note: VIS 12/13/2006 6Admin Note: vis 10/30/11 7Admin Note: vis [id number] 8Admin Note: done at [facility] this past march 9Admin Note: VIS GIVEN 2008- 10Admin Note: vis 11/25/06 Medications acetaminophen 500 mg oral tablet 1 tablet = 500 mg, By Mouth, 2 times a day, PRN for pain, take only if needed, # 60 tablet, 5 Refills, Maintenance, 04/17/19 10:49:00 EST, Tablet, [place], [place] -, 172, cm, 04/17/19 9:42:00 EST, Height, 83.7, kg, 04/04/19 0:17:00 E... Start Date: 04/17/19 Stop Date: 10/14/19 Status: Ordered albuterol CFC free 90 mcg/inh inhalation aerosol See Instructions, # 18 Gm, Refills 5 Tot. Refills 5, INHALE 2 PUFFS BY MOUTH INTO THE lungs 4 (FOUR) TIMES DAILY NEEDED FOR SHORTNESS OF BREATH OR FOR WHEEZING, [place], [place] - Start Date: 01/21/19 Status: Ordered Alcohol Pads See Instructions, # 50 each, Refills 11, Tot. Refills 11, Maintenance, E11.9 check BG daily, 12/05/18 7:49:59 EDT, Compound Start Date: 12/05/18 Status: Ordered amLODIPine 10 mg oral tablet See Instructions, Take 1/2 tablet po daily (change from 10mg daily 05/12/18), # 30 capsule, 2 Refills, Maintenance, 05/12/19 14:01:00 EST, Tablet, [place], [place] -, 172, cm, 05/12/19 13:25:00 EST, [...] 09/12/18 Status: Ordered Talbert Elastic barrier strips #831116 Talbert Elastic barrier strips #534281, See Instructions, # 1 units, Refills 11, Tot. Refills 11, Maintenance, To remove appliance at every change Dx Ulcerative Colitis, 01/31/18 11:44:17 EDT, Compound Start Date: 01/31/18 Status: Ordered busPIRone 5 mg oral tablet 5 mg, 1, tablet, By Mouth, 3 times a day, for anxiety, # 90 tablet, Refills 11, Tot. Refills 11, Maintenance, 04/17/19 10:43:00 EST, Route to Pharmacy Electronically, [place], [place] -, 172, cm, 04/17/19 9:42:00 EST, Height, 83.7, kg... Start Date: 04/17/19 Stop Date: 04/11/20 Status: Ordered carvedilol 6.25 mg oral tablet 6.25 mg, 1, tablet, By Mouth, 2 times a day, # 60 tablet, Refills 2, Tot. Refills 2, Maintenance, 05/12/19 14:03:00 EST, Route to Pharmacy Electronically, [place], [place] -, 172, cm, 05/12/19 13:25:00 EST, [...] 04/17/19 10:43:00 EST, Route to Pharmacy Electronically, [place], [place] -, 172, cm, 04/17/19 9:42:00 EST, Height, 83.7, kg, 04/04/19 0:17:... Start Date: 04/17/19 Stop Date: 04/11/20 Status: Ordered coloplast #60922 pouch coloplast #19685 pouch, See Instructions, # 20 each, Refills 11, Tot. Refills 11, Maintenance, use as needed for ostomy care dx + ileostomy, 09/12/18 10:12:37 EDT, Compound Start Date: 09/12/18 Status: Ordered coloplast 04022 convex 1 piece coloplast 65554 convex 1 piece, See Instructions, # 1 box, Refills 11, Tot. Refills 11, Maintenance, use for ostomy changes Dx- uc/ileostomy, 07/25/18 11:04:40 EDT, Compound Start Date: 07/25/18 Status: Ordered Compression Stockings See Instructions, # 4 each, Refills 1, Tot. Refills 1, Maintenance, knee high compression hose 20-30mm 4 pair dx bilateral leg edema. R60.0 pls fax to [facility], 05/12/19 14:02:00 EST, Compound Start Date: [...] Date: 03/06/19 Stop Date: 02/29/20 Status: Ordered Imodium A-D 2 mg oral tablet 2 mg, 1, tablet, By Mouth, 3 times a day, can take 2 tabs at once. not to exceed 4 tabs in 24 hrs.,# 90 tablet, Refills 5, Tot. Refills 5, Soft Stop, 01/02/19 10:34:25 EDT, Route to Pharmacy Electronically, [id number]... Start Date: 01/02/19 Stop Date: 07/01/19 Status: Ordered Januvia 50 mg oral tablet 1 tablet = 50 mg, By Mouth, Daily before breakfast, for diabetes, # 30 tablet, 11 Refills, Maintenance, 04/17/19 10:46:00 EST, Tablet, [place], [place] -, 172, cm, 04/17/19 9:42:00 EST, Height, 83.7, kg, 04/04/19 0:17:00 EST, Dry Weight Start Date: 04/17/19 Stop Date: 04/11/20 Status: Ordered LifeLine LifeLine, See Instructions, # 1 each, Refills 0, Tot. Refills 0, Maintenance, use to call for help in the home as directed length of need 99 B20, F32.9, F11.2 Pt address/#: [address] [address], [address] [phone] Critical Signal... Start Date: 01/15/18 Status: Ordered no sting skin prep spray no sting skin prep spray, See Instructions, # 1 bottle, Refills 11, Tot. Refills 11, Maintenance, use as needed for ostomy care dx = illeostomy, 09/12/18 10:12:45 EDT, Compound Start Date: 09/12/18 Status: Ordered No-nsting skin prep #[id number] No-nsting skin prep #52641502, See Instructions, # 1 bottle, Refills 11, Tot. Refills 11, Maintenance, Use as needed for ostomy care Dx: colostomy, 01/31/18 11:44:14 EDT, Compound Start Date: 01/31/18 Status: Ordered omeprazole 20 mg oral enteric coated capsule 1 capsule = 20 mg, By Mouth, Daily, PRN only if needed for acid reflux symptoms, # 30 capsule, 5 Refills, Maintenance, 04/17/19 10:49:00 EST, EC Capsule, [place], [place] -, 172, cm,04/17/19 9:42:00 EST, Height, [...] PARoxetine 10 mg oral tablet See Instructions, taper off: 1.5 tab qd x 7d, then 1 tab qd x 7d, then 0.5 tab qd x7d, then start sertraline, # 21 tablet, Refills 0, Tot. Refills 0, Maintenance, 04/17/19 10:43:00 EST, Instructions Replace Required Details, Route to Pharmacy Electron... Start Date: 04/17/19 Status: Ordered pravastatin 40 mg oral tablet [...] tablet, 2 Refills, Maintenance, 04/17/19 10:45:00 EST, [facility] [place], [place] -, 172, cm, 04/17/19 9:42:00 EST, Height, [...] mg sublingual film 2 each, Sublingual, Daily, [id number] MassPAT reviewed dissolve under the tongue fax to [facility], # 56 each, 0 Refills, Maintenance, 05/20/19 12:48:00 EST Start Date: 05/20/19 Stop Date: 06/17/19 Status: Ordered traZODone 100 mg oral tablet 100 mg, 1, tablet, By Mouth, Daily at bedtime, PRN, # 30 tablet, Refills 11, Tot. Refills 11, Maintenance, Insomnia, 07/11/18 10:25:23 EDT, Route to Pharmacy Electronically, [id number], [facility] [place], [place] - Start Date: 07/11/18 Stop Date: 07/06/19 Status: Ordered Triumeq oral tablet 1 tablet, By Mouth, Daily, # 30 tablet, 11 Refills, Maintenance, 07/11/18 10:25:21 EDT, Tablet, 1 tablet By Mouth Daily,x30 days Start Date: 07/11/18 Stop Date: 07/06/19 Status: Ordered Unisolve adhesive remover #[id number] Unisolve adhesive remover #767367, See Instructions, # 1 box, Refills 11, Tot. Refills 11, Maintenance, To remove appliance at every change Dx Ulcerative Colitis, 01/31/18 11:44:15 EDT, Compound Start Date: 01/31/18 Status: Ordered Voltaren 1% topical gel See Instructions, PRN pain R knee, apply to painful knees 1-2x/day maximum; wash hands after, # 100Gm, 3 Refills, Maintenance, 05/01/19 9:33:00 EST, Gel, [facility] [place] [place] -, apply to painful knees 1-2x/day maximum; wash hands after,P... Start Date: 05/01/19 Status: Ordered Problem List Condition Effective Dates Status Health Status Inform ant Allergic rhinitis(Confirmed) Active BPH(Confirmed) Active Cholecystectomy(Confirmed) 1 Active Chronic hepatitis B(Confirmed) 2 Active Diabetes mellitus(Confirmed) Active History of R TKR 2008, then infection and poly exchange R knee 05/[address] Boss(Confirmed) Active Hyperlipidemia(Confirmed) Active Hypertension(Confirmed) Active Right inguinal pain(Confirmed) Active 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) Active *[phone]- Care Part ner Jacky Sandhu(Confirmed) Active traumatic [...]
--- OUTSIDE RECORDS SUMMARY | 2022-12-18 06:33 | XMS_ITS | Continuity of Care Document ---
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 Name Role Phone Noemi Ruffin MD, I Primary Care Physician [facility]counter [facility] Date(s): 11/24/19 - 12/28/[address] [address]- [facility] Attending Physician: Royce Saini MD Admitting Physician: [...] VIS 10/03 3Result Comment: [12/07/2016] diluent LOT [id number] EXP 03/29/2018 4Result Comment: [07/18/2016] Liquid component: [id number], exp.: 05/2017 5Admin Note: VIS 12/13/2006 6Admin Note: vis 10/30/11 7Admin Note: vis [id number] 8Admin Note: done at [facility] this past march 9Admin Note: VIS GIVEN 2008- 10Admin Note: vis 11/25/06 Medications acetaminophen 500 mg oral tablet 1 tablet = 500 mg, By Mouth, 2 times a day, PRN for pain, take only if needed, # 60 tablet, 5 Refills, Maintenance, 04/17/19 10:49:00 EST, Tablet, [place], [place] -, 172, cm, 04/17/19 9:42:00 EST, Height, 83.7, kg, 04/04/19 0:17:00 E... Start Date: 04/17/19 Stop Date: 10/14/19 Status: Ordered albuterol CFC free 90 mcg/inh inhalation aerosol See Instructions, # 18 Gm, Refills 5 Tot. Refills 5, INHALE 2 PUFFS BY MOUTH INTO THE lungs 4 (FOUR) TIMES DAILY NEEDED FOR SHORTNESS OF BREATH OR FOR WHEEZING, [place] - Start Date: 01/21/19 Status: Ordered Alcohol Pads See Instructions, # 50 each, Refills 11, Tot. Refills 11, Maintenance, E11.9 check BG daily, 12/05/18 7:49:59 EDT, Compound Start Date: 12/05/18 Status: Ordered amLODIPine 5 mg oral tablet 5 mg, 1, tablet, By Mouth, Daily, # 30 tablet, Refills 11, Tot. Refills 11, Maintenance, 06/16/19 12:27:00 EST, Route to Pharmacy Electronically, [place], [place] -, 172, cm, 06/16/19 11:20:00 EST, [...] 07/14/19 Status: Ordered Talbert Elastic barrier strips #[id number] Talbert Elastic barrier strips #950656, See Instructions, # 1 units, Refills 11, Tot. Refills 11, Maintenance, To remove appliance at every change Dx Ulcerative Colitis, 01/31/18 11:44:17 EDT, Compound Start Date: 01/31/18 Status: Ordered busPIRone 5 mg oral tablet 5 mg, 1, tablet, By Mouth, 3 times a day, for anxiety, # 90 tablet, Refills 11, Tot. Refills 11, Maintenance, 04/17/19 10:43:00 EST, Route to Pharmacy Electronically, [place], [place] -, 172, cm, 04/17/19 9:42:00 EST, Height, 83.7, kg... Start Date: 04/17/19 Stop Date: 04/11/20 Status: Ordered carvedilol 6.25 mg oral tablet 6.25 mg, 1, tablet, By Mouth, 2 times a day, # 60 tablet, Refills 11, Tot. Refills 11, Maintenance,06/16/19 12:25:00 EST, Route to Pharmacy Electronically, [place], [place] -, 172, cm, 06/16/19 11:20:00 EST, [...] 04/17/19 10:43:00 EST, Route to Pharmacy Electronically, [place], [place] -, 172, cm, 04/17/19 9:42:00 EST, Height, 83.7, kg, 04/04/19 0:17:... Start Date: 04/17/19 Stop Date: 04/11/20 Status: Ordered Citrucel 500 mg oral tablet 2 tablet = 1,000 mg, By Mouth, Daily, for 60 days, with plenty of water, # 120 tablet, 1 Refills, Acute 02/12/20 16:54:00 EDT, 10/15/19 16:54:00 EDT, [place], [place] -, 172, cm, 06/25/19 10:26:00 EST, Height, 83.7, kg, 04/04/19 0:17:... Start Date: 10/15/19 Stop Date: 02/12/20 Status: Ordered coloplast #32386 pouch coloplast #75374 pouch, See Instructions, # 20 each, Refills 11, Tot. Refills 11, Maintenance, use as needed for ostomy care. 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 Fax to [facility]), 06/25/19 12:46:00 EST, Compound Start Date: 06/25/19 Status: Ordered coloplast #35156 pouch coloplast #30255 pouch, See Instructions, # 40 each, Refills 11, Tot. Refills 11, Maintenance, use as needed for ostomy care. 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 Fax to [facility]). disp 40 coloplast pouche... Start Date: 08/05/19 Status: Ordered coloplast 59138 convex 1 piece coloplast 41207 convex 1 piece, See Instructions, # 1 box, Refills 11, Tot. Refills 11, Maintenance, use for ostomy changes Dx- uc/ileostomy, 07/25/18 11:04:40 EDT, Compound Start Date: 07/25/18 Status: Ordered coloplast bags #99571 coloplast bags #57043, See Instructions, # 20 each, Refills 11, Tot. Refills 11, Maintenance, use as needed for ostomy care Dx. ileostomy Z93.2, 07/14/19 10:56:00 EDT, Compound Start Date: 07/14/19 Status: Ordered Compression Stockings See Instructions, # 4 each, Refills 1, Tot. Refills 1, Maintenance, knee high compression hose 20-30mm 4 pair dx bilateral leg edema. R60.0 pls fax to [facility], 05/12/19 14:02:00 EST, Compound Start [...] 11 Refills, Maintenance, 07/29/19 11:40:00 EDT, Tablet, [facility] [place], [place] -, 172, cm, 06/25/19 10:26:00 EST, Height, 83.7, kg, 04/04/19 0:17:00 EST, Dry Weight Start Date: 07/29/19 Stop Date: 07/23/20 Status: Ordered hydrOXYzine hydrochloride 10 mg oral tablet 2 tablet = 20 mg, By Mouth, 3 times a day, PRN for itching, # 80 tablet, 0 Refills, Maintenance, 06/25/19 11:37:00 EST, Tablet, [place], [place] -, 172, cm, 06/25/19 10:26:00 EST, [...] 01/02/19 10:34:25 EDT, Route to Pharmacy Electronically, [id number], [place]... Start Date: 01/02/19 Stop Date: 07/01/19 Status: Ordered Januvia 50 mg oral tablet 1 tablet = 50 mg, By Mouth, Daily before breakfast, for diabetes, # 30 tablet, 11 Refills, Maintenance, 04/17/19 10:46:00 EST, Tablet, [place], [place] -, 172, cm, 04/17/19 9:42:00 EST, Height, 83.7, kg, 04/04/19 0:17:00 EST, Dry Weight Start Date: 04/17/19 Stop Date: 04/11/20 Status: Ordered LifeLine LifeLine, See Instructions, # 1 each, Refills 0, Tot. Refills 0, Maintenance, use to call for help in the home as directed length of need 99 B20, F32.9, F11.2 Pt address/#: [address] [place] [address], [address] [phone] Critical Signal... Start Date: 01/15/18 Status: Ordered [...] Date: 09/12/18 Status: Ordered No-nsting skin prep #[id number] No-nsting skin prep #[id number], See Instructions, # 1 bottle, Refills 11, Tot. Refills 11, Maintenance, Use as needed for ostomy care Dx: colostomy, 01/31/18 11:44:14 EDT, Compound Start Date: 01/31/18 Status: Ordered omeprazole 20 mg oral enteric coated capsule 1 capsule = 20 mg, By Mouth, Daily, PRN only if needed for acid reflux symptoms, # 30 capsule, 5 Refills, Maintenance, 04/17/19 10:49:00 EST, EC Capsule, [place], [place] -, 172, cm,04/17/19 9:42:00 EST, Height, [...] tablet, 5 Refills, Maintenance, 07/19/19 13:20:00 EDT, [place], [place] -, 172, cm, 06/25/19 10:26:00 EST, [...] 11 Refills, Maintenance, 06/16/19 12:26:00 EST, Tablet, [facility] [place], [place] -, 172, cm, 06/16/19 11:20:00 EST, [...] mg sublingual film 3 each, Sublingual, Daily, [id number], MassPATchecked. dissolve under tongue (ok to divide dose 3x/dif helps w/ pain), # 84 film, 0 Refills, Maintenance, 11/25/19 11:54:00 EDT, [place], [place] - [id number], 3 each Sublingual Daily,x... Start Date: 11/25/19 Stop Date: 12/23/19 Status: Ordered traZODone 100 mg oral tablet 1, tablet, By Mouth, Daily at bedtime, PRN, # 30 tablet, Refills 11, Tot. Refills 0, Maintenance, NEEDED FOR insomnia, 07/19/19 17:09:00 EDT, Route to Pharmacy Electronically, [facility], 172, cm, 06/25/19 10:26:00 EST, Height, 83.7, kg, 04/04... Start Date: 07/19/19 Status: Ordered Triumeq oral tablet 1 tablet, By Mouth, Daily, # 30 tablet, 11 Refills, Maintenance, 07/29/19 11:40:00 EDT, Tablet, [place], [place] -, 1 tablet By Mouth Daily,x30 days, 172, cm, 06/25/19 10:26:00 EST, Height, 83.7, kg, 04/04/19 0:17:00 EST, Dry Weight Start Date: 07/29/19 Stop Date: 07/23/20 Status: Ordered Unisolve adhesive remover #989054 Unisolve adhesive remover #165553, See Instructions, # 1 box, Refills 11, Tot. Refills 11, Maintenance, To remove appliance at every change Dx Ulcerative Colitis, 01/31/18 11:44:15 EDT, Compound Start Date: 01/31/18 Status: Ordered Voltaren 1% topical gel See Instructions, PRN pain R knee, apply to painful knees 1-2x/day maximum; wash hands after, # 100Gm, 3 Refills, Maintenance, 06/25/19 11:49:00 EST, Gel, [place], [place] -, apply to painful knees 1-2x/day [...] 06/25/19 11:36:00 EST, Tablet, [facility] [place], [place] -, 172, cm, 06/25/19 10:26:00 EST, [...] inguinal pain(Confirmed) Active 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) Active *[phone]- Care Part ner Jacky Sandhu(Confirmed) Active traumatic [...]
--- OUTSIDE RECORDS SUMMARY | 2022-12-18 06:33 | XMS_ITS | Continuity of Care Document ---
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 Role Phone Noemi Ruffin MD, I Primary Care Physician [phone] [facility]counter [facility] Date(s): 04/04/22 - 05/04/[address] [address] Allergies, Adverse Reactions, Alerts Substance Reaction Severity Status ampicillin Active aspirin BLEEDING Persistent Severe Active Pollen NASAL CONGESTION SNEEZING Persistent Mode rate Active NSAIDs bleeding Persistent Severe Active Immunizations Given and Recorded Vaccine Date Status Refusal Reason [id number] 12y+ bivalent booster vax 02/02/22 Recorded SARS-CoV-2 [...] VIS 10/03 4Result Comment: [12/07/2016] diluent LOT [id number] EXP 03/29/2018 5Result Comment: [07/18/2016] Liquid component: [id number], exp.: 05/2017 6Admin Note: VIS 12/13/2006 7Admin Note: vis 10/30/11 8Admin Note: vis [id number] 9Admin Note: done at [facility] this past march 10Admin Note: VIS GIVEN 2008- 11Admin Note: vis 11/25/06 Medications acetaminophen 500 mg oral tablet 1 tablet, By Mouth, 4 times a day, PRN NEEDED FOR PAIN, TAKE ONLY IF needed, # 100 tablet, 5 Refills, Maintenance, 04/14/22 15:58:[address] [facility], [place], [place] - [phone], 167, cm, 04/10/22 11:48:00 EST, Height, 89.9, kg, 05/25/21 10:... Start Date: 04/14/22 Status: Ordered Albuterol (Eqv-ProAir HFA) 90 mcg/inh inhalation aerosol 2 puffs, Inhalation, 4 times a day, PRN NEEDED FOR SHORTNESS OF BREATH OR FOR WHEEZING, # 25.5 Gm, 5 Refills, [facility], 4, INHALE 2 PUFFS BY [...] 07/26/21 14:15:00 EDT, Route to Pharmacy Electronically, [facility], [place] - [id number], Partial fill upon patient request if the [...] 09/09/21 Status: Ordered Talbert Elastic barrier strips #133383 Talbert Elastic barrier strips #537091, See Instructions, # 1 units, Refills 11, Tot. Refills 11, Maintenance, To remove appliance at every change Dx Ulcerative Colitis, 01/31/18 11:44:17 EDT, Compound Start Date: 01/31/18 Status: Ordered busPIRone 5 mg oral tablet 1, tablet, By Mouth, 3 times a day, PRN, # 270 tablet, Refills 1, Tot. Refills 1, Maintenance, NEEDED FOR ANXIETY, 01/26/22 18:01:00 EDT, Route to Pharmacy Electronically, [facility] [id number], 167, cm, 08/08/21 11:18:00 E... Start Date: 01/26/22 Stop Date: 07/25/22 Status: Ordered carvedilol 12.5 mg oral tablet 1, tablet, By Mouth, 2 times a day, # 180 tablet, Refills 0, Tot. Refills 0, Maintenance, 03/27/22 6:13:00 EST, Route to Pharmacy Electronically, [facility] [id number], Office visit needed for further refills., 167, cm, ... Start Date: 03/27/22 Status: Ordered cetirizine 10 mg oral tablet 1 tablet, By Mouth, Daily, PRN NEEDED FOR FOR ALLERGY, # 90 tablet, 1 Refills, 02/23/22 14:13:00EDT, [place], [place] - [id number], 167, cm, 08/08/21 11:18:00 EDT, Height, 89.9, kg, 05/25/21 10:21:00 EST, Dry Weight Start Date: 02/23/22 Status: Ordered coloplast #59664 pouch coloplast #92303 pouch, See Instructions, # 20 each, Refills 11, Tot. Refills 11, Maintenance, use as needed for ostomy care. 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 Fax to [facility] ([facility]), 06/25/19 12:46:00 EST, Compound Start Date: 06/25/19 Status: Ordered coloplast #10569 pouch coloplast #52033 pouch, See Instructions, # 40 each, Refills 11, Tot. Refills 11, Maintenance, use as needed for ostomy care. 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 Fax to [facility] ([facility]). disp 40 coloplast pouche... Start Date: 08/05/19 Status: Ordered coloplast 65656 convex 1 piece coloplast 21763 convex 1 piece, See Instructions, # 1 box, Refills 11, Tot. Refills 11, Maintenance, use for ostomy changes Dx- uc/ileostomy, 07/25/18 11:04:40 EDT, Compound Start Date: 07/25/18 Status: Ordered coloplast bags #52601 coloplast bags #83425, See Instructions, # 20 each, Refills 11, Tot. Refills 11, Maintenance, use as needed for ostomy care Dx. ileostomy Z93.2 fax to [facility], 09/09/21 10:48:00 EDT, Compound Start Date: 09/09/21 Status: Ordered Compression Stockings See Instructions, # 4 each, Refills 1, Tot. Refills 1, Maintenance, knee high compression hose 20-30mm 4 pair dx bilateral leg edema. R60.0 pls fax to [facility], 05/12/19 14:02:00 EST, Compound Start Date: [...] Gm, 5 Refills, Maintenance, 12/29/21 18:49:00 EDT, [facility], 30, APPLY TO PAINFUL KNEES 1 TO 2 TIMES A DAY maximum. WASH HANDS AFTER USE, 167, cm,... Start Date: 12/29/21 Status: Ordered Dovato 50 mg-300 mg oral tablet 1 tablet, By Mouth, Daily, *pharmacy: please change triumeq to dovato with the next monthly medication delivery., # 30 tablet, 11 Refills, Maintenance, 04/21/22 14:15:00 EST, Tablet, [facility] [place], [place] - [id number], Partial fill upon pa... Start Date: 04/21/22 [...] a day, # 60 tablet, 11 Refills, [facility], 167, cm, 05/26/21 7:07:00 EST, [...] Mouth, Daily, # 30 tablet, 2 Refills, 02/23/22 14:14:00 EDT, [facility] [place], [place] - [id number], 167, cm, 08/08/21 11:18:00 EDT, Height, 89.9, kg, 05/25/21 10:21:00 EST, Dry Weight Start Date: 02/23/22 Status: Ordered Imodium A-D 2 mg oral [...] 99 B20, F32.9, F11.2 Pt address/#: [address] [place] [address], [address] [phone] Critical Signal... Start Date: 01/15/18 Status: Ordered Lokelma 10 g oral powder for reconstitution See Instructions, DISSOLVE THE CONTENT OF 1 PACKET IN WATER AND DRINK ONCE DAILY. DO NOT TAKE WITHIN 2 HOURS OF other MEDICATIONS, # 30 pack/packet, 5 Refills, Maintenance, 04/25/22 16:05:00 EST, [facility], 167, cm, 04/10/22 11:48:00 EST, [...] Date: 09/12/18 Status: Ordered No-nsting skin prep #[id number] No-nsting skin prep #09017584, See Instructions, # 1 bottle, Refills 11, Tot. Refills 11, Maintenance, Use as needed for ostomy care Dx: colostomy, 01/31/18 11:44:14 EDT, Compound Start Date: 01/31/18 Status: Ordered omeprazole 40 mg oral enteric coated capsule 1 capsule, By Mouth, 2 times a day, # 60 capsule, 1 Refills, Maintenance, 03/27/22 20:08:00 EST, [facility], 167, cm, 08/08/21 11:18:00 EDT, Height, 89.9, kg, 05/25/21 10:21:00 EST, Dry Weight Start Date: 03/27/22 Status: Ordered Ostomy deodorizer liquid Ostomy deodorizer [...] Mouth, Daily, # 45 tablet, 11 Refills, [facility], 167, cm, 05/26/21 7:07:00 EST, Height, 89.9, kg, 05/25/21 10:21:00 EST, Dry Weight Start Date: 06/22/21 Status: Ordered sitaGLIPtin 25 mg oral tablet 1 tablet = 25 mg, By Mouth, Daily, pls note the lower dose., # 30 tablet, 11 Refills, Maintenance, 08/11/21 15:34:00 EDT, Tablet, [facility] [place], [place] - [id number], Partial fill upon patient request if the [...] sublingual film 3 film, Sublingual, Daily, Laly [id number] MassPATchecked. dissolve under tongue May fill on or after 04/19/2022., # 84 film, 0 Refills, Maintenance, 04/17/22 17:05:00 EST, [facility] [place], [place] - [id number], increase in dose from 1... Start Date: 04/17/22 Stop Date: 05/15/22 Status: Ordered traZODone 100 mg oral tablet 1, tablet, By Mouth, Daily at bedtime, PRN, # 90 tablet, Refills 1, Maintenance, NEEDED FOR insomnia, 12/29/21 10:33:00 EDT, Route to Pharmacy Electronically, [facility], 167, cm, 08/08/21 11:18:00 EDT, Height, 89.9, kg, 05/25/21 10:21:00 EST,... Start Date: 12/29/21 Status: Ordered Unisolve adhesive remover #784334 Unisolve adhesive remover #799866, See Instructions, # 1 box, Refills 11, [...] Confirmed Active Obese class II Confirmed Active *[phone] Event Planning Manager Nitin Hancock Confirmed Active SLAC (scapholunate advanced [...] NP Position: [facility] Associate Professional Member Role: Primary Care Nurse Address: Address: [address] [place] [address]- Name: Arianne George RN Position: [facility] RN Member Role: Primary Care Nurse Name: Radha Ewing RN Position: [facility] RN Member Role: Primary Care Nurse Name: Macey Trevino RN Position: [facility] RN Member Role: Primary Care Nurse Name: Nesha Leigh RN Position: [facility] RN Member Role: Primary Care Nurse Name: Alanna Ashby RN Position: [facility] RN Member Role: Primary Care Nurse Name: Loren Jimenez RN Position: [facility] RN Member Role: Primary Care Nurse Name: Starr Poon RN Position: [facility] RN Member Role: Primary Care Nurse Name: Vilma Perez RN Position: [facility] MR W/ Merge Member Role: Primary Care Nurse Name: John Noguera RN Position: [facility] RN Member Role: Primary Care Nurse Name: Noemi Rufifn MD, I Position: [facility] Primary Care Physician Member Role: PCP Address: Address: [address] [place] [address]- [place] Name: Dunia Arechiga RN Position: [facility] RN Member Role: Primary Care Nurse Name: Kamilah Baron Position: [facility] PCO TA Member Role: Primary Care Nurse Name: Manuela [place] RN Position: [facility] RN Member Role: Primary Care Nurse Name: Ro Lopez RN Position: [facility] RN Member Role: Primary Care Nurse Name: Kosta Braun III, RN Position: [facility] RN Member Role: Primary Care Nurse Name: Lauryn Jiménez RN Position: [facility] Hospital Stab Setter And Driller Member Role: Primary Care Nurse Name: Jorge Ching RN Position: [facility] RN Member Role: Primary Care Nurse Name: Valarie Srivastava RN Position: [facility] RN Member Role: Primary Care Nurse Name: Monica Jacobs RN Position: [facility] RN Member Role: Primary Care Nurse Name: Johanna Castaneda RN Position: [facility] RN Member Role: Primary Care Nurse Address: Address: [address] [place] [address] Name: Luisa Zavaleta RN Position: [facility] AMB Nurse Member Role: Primary Care Nurse Name: Yulissa Mora RN Position: [facility] SN RN Member Role: Primary Care Nurse Name: Francine Abrams RN Position: [facility] RN Member Role: Primary Care Nurse Name: Shea Marinelli RN Position: [facility] RN Member Role: Primary Care Nurse Care Team Related Persons Name: PEGGY GARDNER Address: [address] [place] [address] Name: JLUIS WHITE STAGE NAME Name: ADIA WINTERS
--- OUTSIDE RECORDS SUMMARY | 2022-12-18 06:33 | XMS_ITS | Continuity of Care Document ---
Author Name Unknown Organization [facility] Address [address] [place] [address]- Care Team Providers Care Chain Person Name Role Phone Laly FERNANDEZ, Noemi Marshall Primary Care Physician Encounter [facility] Date(s): 06/02/22 - 07/02/[address] [address]- Allergies, Adverse Reactions, Alerts Substance Reaction Severity Status ampicillin Active aspirin BLEEDING Persistent Severe Active Pollen NASAL CONGESTION SNEEZING Persistent Mode rate Active NSAIDs bleeding Persistent Severe Active Immunizations Given and Recorded Vaccine Date Status Refusal Reason [id number] 12y+ bivalent booster vax 02/02/22 Recorded SARS-CoV-2 [...] VIS 10/03 4Result Comment: [12/07/2016] diluent LOT [id number] EXP 03/29/2018 5Result Comment: [07/18/2016] Liquid component: [id number], exp.: 05/2017 6Admin Note: VIS 12/13/2006 7Admin Note: vis 10/30/11 8Admin Note: vis [id number] 9Admin Note: done at [facility] this past march 10Admin Note: VIS GIVEN 2008- 11Admin Note: vis 11/25/06 Medications acetaminophen 500 mg oral tablet 1 tablet, By Mouth, 4 times a day, PRN NEEDED FOR PAIN, TAKE ONLY IF needed, # 100 tablet, 5 Refills, Maintenance, 04/14/22 15:58:00 EST, [place], [place] - [phone], 167, cm, 04/10/22 11:48:00 EST, Height, 89.9, kg, 05/25/21 10:... Start Date: 04/14/22 Status: Ordered Albuterol (Eqv-ProAir HFA) 90 mcg/inh inhalation aerosol 2 puffs, Inhalation, 4 times a day, PRN NEEDED FOR SHORTNESS OF BREATH OR FOR WHEEZING, # 25.5 Gm, 5 Refills, [facility], 4, INHALE 2 PUFFS BY [...] tablet, 5 Refills, Maintenance, 06/26/22 22:22:00 EST, [facility], 167, cm, 04/10/22 11:48:00 EST, Height, 89.9, [...] 09/09/21 Status: Ordered Talbert Elastic barrier strips #[id number] Talbert Elastic barrier strips #714261, See Instructions, # 120 each, Refills 11, [...] 01/26/22 18:01:00 EDT, Route to Pharmacy Electronically, [facility] - [place], [place] - [phone], 167, cm, 08/08/21 11:18:00 E... Start Date: 01/26/22 Stop Date: 07/25/22 Status: Ordered carvedilol 12.5 mg oral tablet 1, tablet, By Mouth, 2 times a day, # 180 tablet, Refills 1, Maintenance, 06/26/22 22:23:00 EST, Route to Pharmacy Electronically, [facility], 167, cm, 04/10/22 11:48:00 EST, Height, 89.9, kg, 05/25/21 10:21:00 EST, Dry Weight Start Date: 06/26/22 Status: Ordered cetirizine 10 mg oral tablet 1 tablet, By Mouth, Daily, PRN NEEDED FOR FOR ALLERGY, # 90 tablet, 1 Refills, 02/23/22 14:13:00EDT, [facility] - [place], [place] - [id number], 167, cm, 08/08/21 11:18:00 EDT, Height, 89.9, kg, 05/25/21 10:21:00 EST, Dry Weight Start Date: 02/23/22 Status: Ordered coloplast #69738 pouch coloplast #97310 pouch, See Instructions, # 20 each, Refills 11, Tot. Refills 11, Maintenance, use as needed for ostomy care. 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 Fax to [facility] ([facility]), 06/25/19 12:46:00 EST, Compound Start Date: 06/25/19 Status: Ordered coloplast #59928 pouch coloplast #40954 pouch, See Instructions, # 40 each, Refills 11, Tot. Refills 11, Maintenance, use as needed for ostomy care. 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 Fax to [facility] ([facility]). disp 40 coloplast pouche... Start Date: 08/05/19 Status: Ordered coloplast 81153 convex 1 piece coloplast 76508 convex 1 piece, See Instructions, # 1 box, Refills 11, Tot. Refills 11, Maintenance, use for ostomy changes Dx- uc/ileostomy, 07/25/18 11:04:40 EDT, Compound Start Date: 07/25/18 Status: Ordered coloplast bags #28629 coloplast bags #99332, See Instructions, # 20 each, Refills 11, Tot. Refills 11, Maintenance, use as needed for ostomy care Dx. ileostomy Z93.2 fax to [facility], 09/09/21 10:48:00 EDT, Compound Start Date: 09/09/21 Status: Ordered Compression Stockings See Instructions, # 4 each, Refills 1, Tot. Refills 1, Maintenance, knee high compression hose 20-30mm 4 pair dx bilateral leg edema. R60.0 pls fax to [facility], 05/12/19 14:02:00 EST, Compound Start Date: 05/12/19 [...] Gm, 5 Refills, Maintenance, 06/27/22 16:38:00 EST, [facility], 30, APPLY TO PAINFUL KNEES 1 TO 2 TIMES A DAY maximum. WASH HANDS AFTER USE, 167, cm,... Start Date: 06/27/22 Status: Ordered Dovato 50 mg-300 mg oral tablet 1 tablet, By Mouth, Daily, *pharmacy: please change triumeq to dovato with the next monthly medication delivery., # 30 tablet, 11 Refills, Maintenance, 04/21/22 14:15:00 EST, Tablet, [facility] - [place], [place] - [phone], Partial fill upon pa... Start Date: 04/21/22 [...] tablet, 2 Refills, Maintenance, 05/27/22 4:01:00 EST, [facility], 167, cm, 04/10/22 11:48:00 EST, [...] 99 B20, F32.9, F11.2 Pt address/#: [address] [place] [address], [address]. [phone] Critical Signal... Start Date: 01/15/18 Status: Ordered Lokelma 10 g oral powder for reconstitution See Instructions, DISSOLVE THE CONTENT OF 1 PACKET IN WATER AND DRINK ONCE DAILY. DO NOT TAKE WITHIN 2 HOURS OF other MEDICATIONS, # 30 pack/packet, 5 Refills, Maintenance, 04/25/22 16:05:00 EST, [facility], 167, cm, 04/10/22 11:48:00 EST, [...] Date: 09/12/18 Status: Ordered No-nsting skin prep #[id number] No-nsting skin prep #24638189, See Instructions, # 1 bottle, Refills 11, Tot. Refills 11, Maintenance, Use as needed for ostomy care Dx: colostomy, 01/31/18 11:44:14 EDT, Compound Start Date: 01/31/18 Status: Ordered omeprazole 40 mg oral enteric coated capsule 1 capsule, By Mouth, 2 times a day, # 60 capsule, 1 Refills, Maintenance, 05/27/22 4:01:00 EST, [facility], 167, cm, 04/10/22 11:48:00 EST, [...] tablet, 1 Refills, Maintenance, 06/26/22 22:24:00 EST, [facility], 167, cm, 04/10/22 11:48:00 EST, [...] tablet, 11 Refills, Maintenance, 05/29/22 18:56:00 EST, [facility], 167, cm, 04/10/22 11:48:00 EST, Height, 89.9, kg, 05/25/21 10:21:00 EST, Dry Weight Start Date: 05/29/22 Status: Ordered sitaGLIPtin 25 mg oral tablet 1 tablet = 25 mg, By Mouth, Daily, pls note the lower dose., # 30 tablet, 11 Refills, Maintenance, 08/11/21 15:34:00 EDT, Tablet, [facility] - [place], [place] - [phone], Partial fill upon patient request if the [...] sublingual film 3 film, Sublingual, Daily, Laly [id number] MassPATchecked. dissolve under tongue, # 84 film, 0 Refills, Maintenance, 06/15/22 16:49:00 EST, [facility] - [place], [place] - [phone], increasein dose from 16 mg to 24 mg daily, 3 film Sublin... Start Date: 06/15/22 Stop Date: 07/13/22 Status: Ordered traZODone 100 mg oral tablet 1, tablet, By Mouth, Daily at bedtime, PRN, # 90 tablet, Refills 1, Maintenance, NEEDED FOR insomnia, 06/27/22 16:38:00 EST, Route to Pharmacy Electronically, [facility], 167, cm, 04/10/22 11:48:00 EST, Height, 89.9, kg, 05/25/21 10:21:00 EST,... 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 SLAC (scapholunate advanced [...] Team Personnel Name: Maru Grey NP [facility] Associate Professional Member Role: Primary Care Nurse Address: Address: [address] [place] [address]- Name: Arianne George RN Position: [facility] RN Member Role: Primary Care Nurse Name: Radha Ewing RN Position: [facility] RN Member Role: Primary Care Nurse Name: Macey Trevino RN Position: [facility] RN Member Role: Primary Care Nurse Name: Nesha Leigh RN Position: [facility] SN RN Member Role: Primary Care Nurse Name: Alanna Ashby RN Position: [facility] RN Member Role: Primary Care Nurse Name: Loren Jimenez RN Position: [facility] RN Member Role: Primary Care Nurse Name: Starr Poon RN Position: [facility] SN RN Member Role: Primary Care Nurse Name: Vilma Perez RN Position: [facility] MR W/ Merge Member Role: Primary Care Nurse Name: John Noguera RN Position: [facility] RN Member Role: Primary Care Nurse Name: Noemi Ruffin MD, I Position: [facility] Primary Care Physician Member Role: PCP Address: Address: [address] [place] [address]- [place] Name: Dunia Arechiga RN Position: [facility] RN Member Role: Primary Care Nurse Name: Kamilah Baron Position: [facility] PCO TA Member Role: Primary Care Nurse Name: Ro Lopez RN Position: [facility] RN Member Role: Primary Care Nurse Name: Kosta Braun III, RN Position: [facility] RN Member Role: Primary Care Nurse Name: Lauryn Jiménez RN Position: [facility] Hospital Sales Assistant Displays Member Role: Primary Care Nurse Name: Jorge Ching RN Position: [facility] RN Member Role: Primary Care Nurse Name: Valarie Srivastava RN Position: [facility] RN Member Role: Primary Care Nurse Name: Monica Jacobs RN Position: [facility] RN Member Role: Primary Care Nurse Name: Johanna Castaneda RN Position: [facility] RN Member Role: Primary Care Nurse Address: Address: [address] [place] [address] Name: Luisa Zavaleta RN Position: [facility] AMB Nurse Member Role: Primary Care Nurse Name: Yulissa Mora RN Position: [facility] SN RN Member Role: Primary Care Nurse Name: Francine Abrams RN Position: [facility] RN Member Role: Primary Care Nurse Name: Shea Marinelli RN Position: [facility] RN Member Role: Primary Care Nurse Care Team Related Persons Name: PEGGY GARDNER Address: home [address] [place] [address] Name: JLUIS WHITE STAGE NAME Name: ADIA WINTERS
--- OUTSIDE RECORDS SUMMARY | 2022-12-18 06:33 | XMS_ITS | Continuity of Care Document ---
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 Role Phone Laly FERNANDEZ, Noemi Marshall Primary Care Physician [phone] [place] [facility] [id number] Date(s): 08/12/19 - 08/22/[address] [address]- [facility] Attending Physician: Jorge A Sutton Admitting Physician: [...] VIS 10/03 3Result Comment: [12/07/2016] diluent LOT [id number] EXP 03/29/2018 4Result Comment: [07/18/2016] Liquid component: [id number], exp.: 05/2017 5Admin Note: VIS 12/13/2006 6Admin Note: vis 10/30/11 7Admin Note: vis [id number] 8Admin Note: done at [facility] this past march 9Admin Note: VIS GIVEN 2008- 10Admin Note: vis 11/25/06 Medications acetaminophen 500 mg oral tablet 1 tablet = 500 mg, By Mouth, 2 times a day, PRN for pain, take only if needed, # 60 tablet, 5 Refills, Maintenance, 04/17/19 10:49:00 EST, Tablet, [facility] - [place], [place] -, 172, cm, 04/17/19 9:42:00 EST, Height, 83.7, kg, 04/04/19 0:17:00 E... Start Date: 04/17/19 Stop Date: 10/14/19 Status: Ordered albuterol CFC free 90 mcg/inh inhalation aerosol See Instructions, # 18 Gm, Refills 5 Tot. Refills 5, INHALE 2 PUFFS BY MOUTH INTO THE lungs 4 (FOUR) TIMES DAILY NEEDED FOR SHORTNESS OF BREATH OR FOR WHEEZING, [place], [place] - Start Date: 01/21/19 Status: Ordered Alcohol Pads See Instructions, # 50 each, Refills 11, Tot. Refills 11, Maintenance, E11.9 check BG daily, 12/05/18 7:49:59 EDT, Compound Start Date: 12/05/18 Status: Ordered amLODIPine 5 mg oral tablet 5 mg, 1, tablet, By Mouth, Daily, # 30 tablet, Refills 11, Tot. Refills 11, Maintenance, 06/16/19 12:27:00 EST, Route to Pharmacy Electronically, [place], [place] -, 172, cm, 06/16/19 11:20:00 EST, [...] 07/14/19 Status: Ordered Talbert Elastic barrier strips #385883 Talbert Elastic barrier strips #383442, See Instructions, # 1 units, Refills 11, Tot. Refills 11, Maintenance, To remove appliance at every change Dx Ulcerative Colitis, 01/31/18 11:44:17 EDT, Compound Start Date: 01/31/18 Status: Ordered busPIRone 5 mg oral tablet 5 mg, 1, tablet, By Mouth, 3 times a day, for anxiety, # 90 tablet, Refills 11, Tot. Refills 11, Maintenance, 04/17/19 10:43:00 EST, Route to Pharmacy Electronically, [place], [place] -, 172, cm, 04/17/19 9:42:00 EST, Height, 83.7, kg... Start Date: 04/17/19 Stop Date: 04/11/20 Status: Ordered carvedilol 6.25 mg oral tablet 6.25 mg, 1, tablet, By Mouth, 2 times a day, # 60 tablet, Refills 11, Tot. Refills 11, Maintenance,06/16/19 12:25:00 EST, Route to Pharmacy Electronically, [facility], 172, cm, 06/16/19 11:20:00 EST, Height, 83.7, [...] 04/17/19 10:43:00 EST, Route to Pharmacy Electronically, [place], [place] -, 172, cm, 04/17/19 9:42:00 EST, Height, 83.7, kg, 04/04/19 0:17:... Start Date: 04/17/19 Stop Date: 04/11/20 Status: Ordered coloplast #46400 pouch coloplast #04335 pouch, See Instructions, # 20 each, Refills 11, Tot. Refills 11, Maintenance, use as needed for ostomy care. 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 Fax to [facility]), 06/25/19 12:46:00 EST, Compound Start Date: 06/25/19 Status: Ordered coloplast #46032 pouch coloplast #61730 pouch, See Instructions, # 40 each, Refills 11, Tot. Refills 11, Maintenance, use as needed for ostomy care. 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 Fax to [facility] ([facility]). disp 40 coloplast pouche... Start Date: 08/05/19 Status: Ordered coloplast 69006 convex 1 piece coloplast 37596 convex 1 piece, See Instructions, # 1 box, Refills 11, Tot. Refills 11, Maintenance, use for ostomy changes Dx- uc/ileostomy, 07/25/18 11:04:40 EDT, Compound Start Date: 07/25/18 Status: Ordered coloplast bags #25810 coloplast bags #34439, See Instructions, # 20 each, Refills 11, Tot. Refills 11, Maintenance, use as needed for ostomy care Dx. ileostomy Z93.2, 07/14/19 10:56:00 EDT, Compound Start Date: 07/14/19 Status: Ordered Compression Stockings See Instructions, # 4 each, Refills 1, Tot. Refills 1, Maintenance, knee high compression hose 20-30mm 4 pair dx bilateral leg edema. R60.0 pls fax to [facility], 05/12/19 14:02:00 EST, Compound Start Date: [...] 11 Refills, Maintenance, 07/29/19 11:40:00 EDT, Tablet, [place], [place] -, 172, cm, 06/25/19 10:26:00 EST, Height, 83.7, kg, 04/04/19 0:17:00 EST, Dry Weight Start Date: 07/29/19 Stop Date: 07/23/20 Status: Ordered hydrOXYzine hydrochloride 10 mg oral tablet 2 tablet = 20 mg, By Mouth, 3 times a day, PRN for itching, # 80 tablet, 0 Refills, Maintenance, 06/25/19 11:37:00 EST, Tablet, [place], [place] -, 172, cm, 06/25/19 10:26:00 EST, [...] 01/02/19 10:34:25 EDT, Route to Pharmacy Electronically, [id number], Kate... Start Date: 01/02/19 Stop Date: 07/01/19 Status: Ordered Januvia 50 mg oral tablet 1 tablet = 50 mg, By Mouth, Daily before breakfast, for diabetes, # 30 tablet, 11 Refills, Maintenance, 04/17/19 10:46:00 EST, Tablet, [facility] - [place], [place] -, 172, cm, 04/17/19 9:42:00 EST, Height, 83.7, kg, 04/04/19 0:17:00 EST, Dry Weight Start Date: 04/17/19 Stop Date: 04/11/20 Status: Ordered LifeLine LifeLine, See Instructions, # 1 each, Refills 0, Tot. Refills 0, Maintenance, use to call for help in the home as directed length of need 99 B20, F32.9, F11.2 Pt address/#: [address] [place] [address], [address]. [phone] Critical Signal... Start Date: 01/15/18 Status: Ordered [...] Date: 09/12/18 Status: Ordered No-nsting skin prep #[id number] No-nsting skin prep #37638248, See Instructions, # 1 bottle, Refills 11, Tot. Refills 11, Maintenance, Use as needed for ostomy care Dx: colostomy, 01/31/18 11:44:14 EDT, Compound Start Date: 01/31/18 Status: Ordered omeprazole 20 mg oral enteric coated capsule 1 capsule = 20 mg, By Mouth, Daily, PRN only if needed for acid reflux symptoms, # 30 capsule, 5 Refills, Maintenance, 04/17/19 10:49:00 EST, EC Capsule, [place], [place] -, 172, cm,04/17/19 9:42:00 EST, Height, [...] tablet, 5 Refills, Maintenance, 07/19/19 13:20:00 EDT, [place], [place] -, 172, cm, 06/25/19 10:26:00 EST, [...] need 99 colostomy care z43.... Start Date: 07/16/19 Status: Ordered right hinged knee brace right [...] 11 Refills, Maintenance, 06/16/19 12:26:00 EST, Tablet, [facility] - [place], [place] -, 172, cm, 06/16/19 11:20:00 EST, [...] mg sublingual film 2 each, Sublingual, Daily, [id number] MassPAT reviewed dissolve under the tongue fax to [facility] Fill on or after 08/11/19, # 56 each, 0 Refills, Maintenance, 08/11/19 10:59:00 EDT Start Date: 08/11/19 Stop Date: 09/08/19 Status: Ordered traZODone 100 mg oral tablet 1, tablet, By Mouth, Daily at bedtime, PRN, # 30 tablet, Refills 11, Tot. Refills 0, Maintenance, NEEDED FOR insomnia, 07/19/19 17:09:00 EDT, Route to Pharmacy Electronically, [facility], 172, cm, 06/25/19 10:26:00 EST, Height, 83.7, kg, 04/04... Start Date: 07/19/19 Status: Ordered Triumeq oral tablet 1 tablet, By Mouth, Daily, # 30 tablet, 11 Refills, Maintenance, 07/29/19 11:40:00 EDT, Tablet, [place], [place] -, 1 tablet By Mouth Daily,x30 days, 172, cm, 06/25/19 10:26:00 EST, Height, 83.7, kg, 04/04/19 0:17:00 EST, Dry Weight Start Date: 07/29/19 Stop Date: 07/23/20 Status: Ordered Unisolve adhesive remover #972868 Unisolve adhesive remover #828420, See Instructions, # 1 box, Refills 11, Tot. Refills 11, Maintenance, To remove appliance at every change Dx Ulcerative Colitis, 01/31/18 11:44:15 EDT, Compound Start Date: 01/31/18 Status: Ordered Voltaren 1% topical gel See Instructions, PRN pain R knee, apply to painful knees 1-2x/day maximum; wash hands after, # 100Gm, 3 Refills, Maintenance, 06/25/19 11:49:00 EST, Gel, [place], [place] -, apply to painful knees 1-2x/day [...] 0 Refills, Maintenance, 06/25/19 11:36:00 EST, Tablet, [place], [place] -, 172, cm, 06/25/19 10:26:00 EST, [...] inguinal pain(Confirmed) Active 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) Active *[id number]- [facility] Part ner Jacky Phoebe(Confirmed) Active traumatic splenectomy [...]
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
--- OUTSIDE RECORDS SUMMARY | 2022-12-18 06:33 | XMS_ITS | Continuity of Care Document ---
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 Phone Noemi Ruffin MD, I Primary Care Physician [phone] [facility]counter [facility] Date(s): 11/25/19 - 12/25/[address] [address]- [facility] Allergies, Adverse Reactions, Alerts Substance Reaction Severity [...] VIS 10/03 3Result Comment: [12/07/2016] diluent LOT [id number] EXP 03/29/2018 4Result Comment: [07/18/2016] Liquid component: [id number], exp.: 05/2017 5Admin Note: VIS 12/13/2006 6Admin Note: vis 10/30/11 7Admin Note: vis [id number] 8Admin Note: done at [facility] this past march 9Admin Note: VIS GIVEN 2008- 10Admin Note: vis 11/25/06 Medications acetaminophen 500 mg oral tablet 1 tablet = 500 mg, By Mouth, 2 times a day, PRN for pain, take only if needed, # 60 tablet, 5 Refills, Maintenance, 04/17/19 10:49:00 EST, Tablet, [place], [place] -, 172, cm, 04/17/19 9:42:00 EST, Height, 83.7, kg, 04/04/19 0:17:00 E... Start Date: 04/17/19 Stop Date: 10/14/19 Status: Ordered albuterol CFC free 90 mcg/inh inhalation aerosol See Instructions, # 18 Gm, Refills 5 Tot. Refills 5, INHALE 2 PUFFS BY MOUTH INTO THE lungs 4 (FOUR) TIMES DAILY NEEDED FOR SHORTNESS OF BREATH OR FOR WHEEZING, [place], [place] - Start Date: 01/21/19 Status: Ordered Alcohol Pads See Instructions, # 50 each, Refills 11, Tot. Refills 11, Maintenance, E11.9 check BG daily, 12/05/18 7:49:59 EDT, Compound Start Date: 12/05/18 Status: Ordered amLODIPine 5 mg oral tablet 5 mg, 1, tablet, By Mouth, Daily, # 30 tablet, Refills 11, Tot. Refills 11, Maintenance, 06/16/19 12:27:00 EST, Route to Pharmacy Electronically, [facility] [place], [place] -, 172, cm, 06/16/19 11:20:00 EST, [...] 07/14/19 Status: Ordered Talbert Elastic barrier strips #756103 Talbert Elastic barrier strips #024891, See Instructions, # 1 units, Refills 11, Tot. Refills 11, Maintenance, To remove appliance at every change Dx Ulcerative Colitis, 01/31/18 11:44:17 EDT, Compound Start Date: 01/31/18 Status: Ordered busPIRone 5 mg oral tablet 5 mg, 1, tablet, By Mouth, 3 times a day, for anxiety, # 90 tablet, Refills 11, Tot. Refills 11, Maintenance, 04/17/19 10:43:00 EST, Route to Pharmacy Electronically, [place], [place] -, 172, cm, 04/17/19 9:42:00 EST, Height, 83.7, kg... Start Date: 04/17/19 Stop Date: 04/11/20 Status: Ordered carvedilol 6.25 mg oral tablet 6.25 mg, 1, tablet, By Mouth, 2 times a day, # 60 tablet, Refills 11, Tot. Refills 11, Maintenance,06/16/19 12:25:00 EST, Route to Pharmacy Electronically, [place], [place] -, 172, cm, 06/16/19 11:20:00 EST, [...] 04/17/19 10:43:00 EST, Route to Pharmacy Electronically, [place], [place] -, 172, cm, 04/17/19 9:42:00 EST, Height, 83.7, kg, 04/04/19 0:17:... Start Date: 04/17/19 Stop Date: 04/11/20 Status: Ordered Citrucel 500 mg oral tablet 2 tablet = 1,000 mg, By Mouth, Daily, for 60 days, with plenty of water, # 120 tablet, 1 Refills, Acute 02/12/20 16:54:00 EDT, 10/15/19 16:54:00 EDT, [facility], 172, cm, 06/25/19 10:26:00 EST, Height, 83.7, kg, 04/04/19 0:17:... Start Date: 10/15/19 Stop Date: 02/12/20 Status: Ordered coloplast #47889 pouch coloplast #59247 pouch, See Instructions, # 20 each, Refills 11, Tot. Refills 11, Maintenance, use as needed for ostomy care. 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 Fax to [facility]), 06/25/19 12:46:00 EST, Compound Start Date: 06/25/19 Status: Ordered coloplast #29014 pouch coloplast #91288 pouch, See Instructions, # 40 each, Refills 11, Tot. Refills 11, Maintenance, use as needed for ostomy care. 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 Fax to Andre ([facility]). disp 40 coloplast pouche... Start Date: 08/05/19 Status: Ordered coloplast 00624 convex 1 piece coloplast 04707 convex 1 piece, See Instructions, # 1 box, Refills 11, Tot. Refills 11, Maintenance, use for ostomy changes Dx- uc/ileostomy, 07/25/18 11:04:40 EDT, Compound Start Date: 07/25/18 Status: Ordered coloplast bags #36418 coloplast bags #98296, See Instructions, # 20 each, Refills 11, Tot. Refills 11, Maintenance, use as needed for ostomy care Dx. ileostomy Z93.2, 07/14/19 10:56:00 EDT, Compound Start Date: 07/14/19 Status: Ordered Compression Stockings See Instructions, # 4 each, Refills 1, Tot. Refills 1, Maintenance, knee high compression hose 20-30mm 4 pair dx bilateral leg edema. R60.0 pls fax to [facility], 05/12/19 14:02:00 EST, Compound Start [...] 11 Refills, Maintenance, 07/29/19 11:40:00 EDT, Tablet, [facility] [place], [place] -, 172, cm, 06/25/19 10:26:00 EST, Height, 83.7, kg, 04/04/19 0:17:00 EST, Dry Weight Start Date: 07/29/19 Stop Date: 07/23/20 Status: Ordered hydrOXYzine hydrochloride 10 mg oral tablet 2 tablet = 20 mg, By Mouth, 3 times a day, PRN for itching, # 80 tablet, 0 Refills, Maintenance, 06/25/19 11:37:00 EST, Tablet, [place], [place] -, 172, cm, 06/25/19 10:26:00 EST, [...] 01/02/19 10:34:25 EDT, Route to Pharmacy Electronically, [id number], Kate... Start Date: 01/02/19 Stop Date: 07/01/19 Status: Ordered Januvia 50 mg oral tablet 1 tablet = 50 mg, By Mouth, Daily before breakfast, for diabetes, # 30 tablet, 11 Refills, Maintenance, 04/17/19 10:46:00 EST, Tablet, [place], [place] -, 172, cm, 04/17/19 9:42:00 EST, Height, 83.7, kg, 04/04/19 0:17:00 EST, Dry Weight Start Date: 04/17/19 Stop Date: 04/11/20 Status: Ordered LifeLine LifeLine, See Instructions, # 1 each, Refills 0, Tot. Refills 0, Maintenance, use to call for help in the home as directed length of need 99 B20, F32.9, F11.2 Pt address/#: [address] [place] [address], [address]. [phone] Critical Signal... Start Date: 01/15/18 Status: Ordered [...] Date: 09/12/18 Status: Ordered No-nsting skin prep #[id number] No-nsting skin prep #58116655, See Instructions, # 1 bottle, Refills 11, Tot. Refills 11, Maintenance, Use as needed for ostomy care Dx: colostomy, 01/31/18 11:44:14 EDT, Compound Start Date: 01/31/18 Status: Ordered omeprazole 20 mg oral enteric coated capsule 1 capsule = 20 mg, By Mouth, Daily, PRN only if needed for acid reflux symptoms, # 30 capsule, 5 Refills, Maintenance, 04/17/19 10:49:00 EST, EC Capsule, [place], [place] -, 172, cm,04/17/19 9:42:00 EST, Height, [...] tablet, 5 Refills, Maintenance, 07/19/19 13:20:00 EDT, [facility], 172, cm, 06/25/19 10:26:00 EST, [...] 11 Refills, Maintenance, 06/16/19 12:26:00 EST, Tablet, [facility] [place], [place] -, 172, cm, 06/16/19 11:20:00 EST, [...] mg sublingual film 3 each, Sublingual, Daily, [id number], MassPATchecked. dissolve under tongue (ok to divide dose 3x/dif helps w/ pain), # 84 film, 0 Refills, Maintenance, 11/25/19 11:54:00 EDT, [place], [place] - [id number], 3 each Sublingual Daily,x... Start Date: 11/25/19 Stop Date: 12/23/19 Status: Ordered traZODone 100 mg oral tablet 1, tablet, By Mouth, Daily at bedtime, PRN, # 30 tablet, Refills 11, Tot. Refills 0, Maintenance, NEEDED FOR insomnia, 07/19/19 17:09:00 EDT, Route to Pharmacy Electronically, [facility], 172, cm, 06/25/19 10:26:00 EST, Height, 83.7, kg, 04/04... Start Date: 07/19/19 Status: Ordered Triumeq oral tablet 1 tablet, By Mouth, Daily, # 30 tablet, 11 Refills, Maintenance, 07/29/19 11:40:00 EDT, Tablet, [place], [place] -, 1 tablet By Mouth Daily,x30 days, 172, cm, 06/25/19 10:26:00 EST, Height, 83.7, kg, 04/04/19 0:17:00 EST, Dry Weight Start Date: 07/29/19 Stop Date: 07/23/20 Status: Ordered Unisolve adhesive remover #888756 Unisolve adhesive remover #784998, See Instructions, # 1 box, Refills 11, Tot. Refills 11, Maintenance, To remove appliance at every change Dx Ulcerative Colitis, 01/31/18 11:44:15 EDT, Compound Start Date: 01/31/18 Status: Ordered Voltaren 1% topical gel See Instructions, PRN pain R knee, apply to painful knees 1-2x/day maximum; wash hands after, # 100Gm, 3 Refills, Maintenance, 06/25/19 11:49:00 EST, Gel, [place], [place] -, apply to painful knees 1-2x/day [...] 0 Refills, Maintenance, 06/25/19 11:36:00 EST, Tablet, [facility] [place], [place] -, 172, cm, 06/25/19 10:26:00 EST, [...] inguinal pain(Confirmed) Active 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) Active *[phone]- Care Part ner Jacky Sandhu(Confirmed) Active traumatic [...]
--- OUTSIDE RECORDS SUMMARY | 2022-12-18 06:33 | XMS_ITS | Continuity of Care Document ---
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 Phone Laly FERNANDEZ, Noemi Marshall Primary Care Physician [phone] [facility]counter [facility] Date(s): 06/18/21 - 07/18/[address] [address]- Allergies, Adverse Reactions, Alerts Substance Reaction Severity [...] VIS 10/03 4Result Comment: [12/07/2016] diluent LOT [id number] EXP 03/29/2018 5Result Comment: [07/18/2016] Liquid component: [id number], exp.: 05/2017 6Admin Note: VIS 12/13/2006 7Admin Note: vis 10/30/11 8Admin Note: vis [id number] 9Admin Note: done at [facility] this past march 10Admin Note: VIS GIVEN 2008- 11Admin Note: vis 11/25/06 Medications acetaminophen 500 mg oral tablet 1 tablet, By Mouth, 2 times a day, PRN NEEDED FOR PAIN, TAKE ONLY IF needed, # 60 tablet, 5 Refills, [facility], 172, cm, 01/18/21 12:02:00 EDT, Height, 89.7, kg, 07/29/20 7:42:00 EDT, Dry Weight Start Date: 01/27/21 Status: Ordered Albuterol (Eqv-ProAir HFA) 90 mcg/inh inhalation aerosol 2 puffs, Inhalation, 4 times a day, PRN NEEDED FOR SHORTNESS OF BREATH OR FOR WHEEZING, # 25.5 Gm, 1 Refills, Maintenance, 02/21/21 9:52:00 EDT, [place], [place] - [id number], 2 puffs Inhalation 4 times a day,PRN: [...] Dry Weight Start Date: 01/05/21 Status: Ordered azelastine 0.05% ophthalmic solution 1 [...] 07/14/19 Status: Ordered Talbert Elastic barrier strips #914258 Talbert Elastic barrier strips #387977, See Instructions, # 1 units, Refills 11, Tot. Refills 11, Maintenance, To remove appliance at every change Dx Ulcerative Colitis, 01/31/18 11:44:17 EDT, Compound Start Date: 01/31/18 Status: Ordered busPIRone 5 mg oral tablet 1, tablet, By Mouth, 3 times a day, FOR ANXIETY., # 90 tablet, Refills 1, Route to Pharmacy Electronically, [facility], 167, cm, 05/26/21 7:07:00 EST, Height, 89.9, kg, 05/25/21 10:21:00 EST, Dry Weight Start Date: 06/22/21 Status: Ordered carvedilol 12.5 mg oral tablet 12.5 mg, 1, tablet, By Mouth, 2 times a day, increase in dose, # 60 tablet, Refills 11, Tot. Refills 11, Maintenance, 10/12/20 11:48:00 EDT, Route to Pharmacy Electronically, [place], [place] - [id number], Partial fill upon patient re... Start Date: 10/12/20 Stop Date: 10/07/21 Status: Ordered cetirizine 10 mg oral tablet 1 tablet, By Mouth, Daily, PRN NEEDED for allergy, # 90 tablet, 1 Refills, Maintenance, 04/21/2112:42:00 EST, [facility], [place] - [id number], 172, cm, 02/22/21 10:36:00 EDT, Height, 89.7, kg, 07/29/20 7:42:00 EDT, Dry Weight Start Date: 04/21/21 Status: Ordered coloplast #62978 pouch coloplast #26831 pouch, See Instructions, # 20 each, Refills 11, Tot. Refills 11, Maintenance, use as needed for ostomy care. 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 Fax to [facility]), 06/25/19 12:46:00 EST, Compound Start Date: 06/25/19 Status: Ordered coloplast #24665 pouch coloplast #00426 pouch, See Instructions, # 40 each, Refills 11, Tot. Refills 11, Maintenance, use as needed for ostomy care. 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 Fax to Andre ([facility]). disp 40 coloplast pouche... Start Date: 08/05/19 Status: Ordered coloplast 61658 convex 1 piece coloplast 16422 convex 1 piece, See Instructions, # 1 box, Refills 11, Tot. Refills 11, Maintenance, use for ostomy changes Dx- uc/ileostomy, 07/25/18 11:04:40 EDT, Compound Start Date: 07/25/18 Status: Ordered coloplast bags #31359 coloplast bags #73446, See Instructions, # 20 each, Refills 11, Tot. Refills 11, Maintenance, use as needed for ostomy care Dx. ileostomy Z93.2, 07/14/19 10:56:00 EDT, Compound Start Date: 07/14/19 Status: Ordered Compression Stockings See Instructions, # 4 each, Refills 1, Tot. Refills 1, Maintenance, knee high compression hose 20-30mm 4 pair dx bilateral leg edema. R60.0 pls fax to [facility], 05/12/19 14:02:00 EST, Compound Start Date: [...] 11 Refills, Maintenance, 07/23/20 12:00:00 EDT, Tablet, [facility] [id number], 173, cm, 07/19/20 10:52:00 EDT, Height, 86.8, kg, 04/07/20 8:07:00 EST, Dry Weight Start Date: 07/23/20 Stop Date: 07/18/21 Status: Ordered hydrochlorothiazide 12.5 mg oral tablet 1 tablet = 12.5 mg, By Mouth, Daily, # 30 tablet, 11 Refills, Maintenance, 01/04/21 11:11:00 EDT, Tablet, [facility] [id number], Partial fill upon patient request if the [...] 99 B20, F32.9, F11.2 Pt address/#: [address] [facility] [address], [address]. [phone] Critical Signal... Start Date: 01/15/18 Status: Ordered [...] Date: 09/12/18 Status: Ordered No-nsting skin prep #[id number] No-nsting skin prep #85849124, See Instructions, # 1 bottle, Refills 11, Tot. Refills 11, Maintenance, Use as needed for ostomy care Dx: colostomy, 01/31/18 11:44:14 EDT, Compound Start Date: 01/31/18 Status: Ordered omeprazole 40 mg oral enteric coated capsule 1 capsule, By Mouth, 2 times a day, # 60 capsule, 1 Refills, [facility], 167, cm, 05/26/21 7:07:00 EST, [...] tablet, 11 Refills, Maintenance, 08/02/20 17:47:00 EDT, [facility], 172, cm, 07/30/20 16:38:00 EDT, [...] Mouth, Daily, # 45 tablet, 11 Refills, [facility], 167, cm, 05/26/21 7:07:00 EST, [...] mg sublingual film 3 film, Sublingual, Daily, [id number] MassPATchecked. dissolve under tongue Due 07/12/2021, # 84 film, 0 Refills, Maintenance, 07/14/21 11:59:00 EDT, [place], [place] - [id number], increase in dose from 16 mg to 24 mg daily, 3 angélica... Start Date: 07/14/21 Stop Date: 08/11/21 Status: Ordered traZODone 100 mg oral tablet 1, tablet, By Mouth, Daily at bedtime, PRN, # 30 tablet, Refills 11, Tot. Refills 0, Maintenance, NEEDED FOR insomnia, 07/23/20 12:03:00 EDT, Route to Pharmacy Electronically, [facility], 173, cm, 07/19/20 10:52:00 EDT, Height, 86.8, kg, 04/07... Start Date: 07/23/20 Status: Ordered Triumeq oral tablet 1 tablet, By Mouth, Daily, # 30 tablet, 11 Refills, Maintenance, 07/23/20 12:00:00 EDT, Tablet, [facility] [place], [place] - [id number], 1 tablet By Mouth Daily,x30 days, 173, cm, 07/19/20 10:52:00 EDT, Height, 86.8, kg, 04/07/20 8:07:00 EST [place].. Start Date: 07/23/20 Stop Date: 07/18/21 Status: Ordered Unisolve adhesive remover #747575 Unisolve adhesive remover #892527, See Instructions, # 1 box, Refills 11, [...] in obese(Confirmed) Active Obese class I(Confirmed) Active *[phone] Care Partn krysten-Jesica Jeter(Confirmed) Active traumatic splenectomy [...]
--- OUTSIDE RECORDS SUMMARY | 2022-12-18 06:33 | XMS_ITS | Continuity of Care Document ---
Author Name Unknown Organization [facility] Address [address] [place] [id number]- Care Team Providers Care Health Information Clerk Name Role Phone Laly FERNANDEZ, Noemi Marshall Primary Care Physician Encounter [facility] Date(s): 11/24/19 - 12/25/[address] [address]- [facility] Attending Physician: Royce Saini MD Referring Physician: Royce [...] (Td) 09/06/04 Given Meningococcal Conjugate Vaccine 3 8/10/17 Given Meningococcal Conjugate Vaccine 4 07/18/16 Given [...] VIS 10/03 3Result Comment: [12/07/2016] diluent LOT [id number] EXP 03/29/2018 4Result Comment: [07/18/2016] Liquid component: [id number], exp.: 05/2017 5Admin Note: VIS 12/13/2006 6Admin Note: vis 10/30/11 7Admin Note: vis [id number] 8Admin Note: done at [facility] this past march 9Admin Note: VIS GIVEN 2008- 10Admin Note: vis 11/25/06 Medications acetaminophen 500 mg oral tablet 1 tablet = 500 mg, By Mouth, 2 times a day, PRN for pain, take only if needed, # 60 tablet, 5 Refills, Maintenance, 04/17/19 10:49:00 EST, Tablet, [place], [place] -, 172, cm, 04/17/19 9:42:00 EST, Height, 83.7, kg, 04/04/19 0:17:00 E... Start Date: 04/17/19 Stop Date: 10/14/19 Status: Ordered albuterol CFC free 90 mcg/inh inhalation aerosol See Instructions, # 18 Gm, Refills 5 Tot. Refills 5, INHALE 2 PUFFS BY MOUTH INTO THE lungs 4 (FOUR) TIMES DAILY NEEDED FOR SHORTNESS OF BREATH OR FOR WHEEZING, [place], [place] - Start Date: 01/21/19 Status: Ordered Alcohol Pads See Instructions, # 50 each, Refills 11, Tot. Refills 11, Maintenance, E11.9 check BG daily, 12/05/18 7:49:59 EDT, Compound Start Date: 12/05/18 Status: Ordered amLODIPine 5 mg oral tablet 5 mg, 1, tablet, By Mouth, Daily, # 30 tablet, Refills 11, Tot. Refills 11, Maintenance, 06/16/19 12:27:00 EST, Route to Pharmacy Electronically, [facility] [place], [place] -, 172, cm, 06/16/19 11:20:00 EST, [...] 07/14/19 Status: Ordered Talbert Elastic barrier strips #795119 Talbert Elastic barrier strips #[id number], See Instructions, # 1 units, Refills 11, Tot. Refills 11, Maintenance, To remove appliance at every change Dx Ulcerative Colitis, 01/31/18 11:44:17 EDT, Compound Start Date: 01/31/18 Status: Ordered busPIRone 5 mg oral tablet 5 mg, 1, tablet, By Mouth, 3 times a day, for anxiety, # 90 tablet, Refills 11, Tot. Refills 11, Maintenance, 04/17/19 10:43:00 EST, Route to Pharmacy Electronically, [facility] [place] -, 172, cm, 04/17/19 9:42:00 EST, Height, 83.7, kg... Start Date: 04/17/19 Stop Date: 04/11/20 Status: Ordered carvedilol 6.25 mg oral tablet 6.25 mg, 1, tablet, By Mouth, 2 times a day, # 60 tablet, Refills 11, Tot. Refills 11, Maintenance,06/16/19 12:25:00 EST, Route to Pharmacy Electronically, [facility] [place] -, 172, cm, 06/16/19 11:20:00 EST, Height, [...] 04/17/19 10:43:00 EST, Route to Pharmacy Electronically, [facility] [place] -, 172, cm, 04/17/19 9:42:00 EST, Height, 83.7, kg, 04/04/19 0:17:... Start Date: 04/17/19 Stop Date: 04/11/20 Status: Ordered Citrucel 500 mg oral tablet 2 tablet = 1,000 mg, By Mouth, Daily, for 60 days, with plenty of water, # 120 tablet, 1 Refills, Acute 02/12/20 16:54:00 EDT, 10/15/19 16:54:00 EDT, [facility], 172, cm, 06/25/19 10:26:00 EST, Height, 83.7, kg, 04/04/19 0:17:... Start Date: 10/15/19 Stop Date: 02/12/20 Status: Ordered coloplast #88753 pouch coloplast #15321 pouch, See Instructions, # 20 each, Refills 11, Tot. Refills 11, Maintenance, use as needed for ostomy care. 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 Fax to [facility]), 06/25/19 12:46:00 EST, Compound Start Date: 06/25/19 Status: Ordered coloplast #52204 pouch coloplast #68055 pouch, See Instructions, # 40 each, Refills 11, Tot. Refills 11, Maintenance, use as needed for ostomy care. 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 Fax to [facility]). disp 40 coloplast pouche... Start Date: 08/05/19 Status: Ordered coloplast 89669 convex 1 piece coloplast 74750 convex 1 piece, See Instructions, # 1 box, Refills 11, Tot. Refills 11, Maintenance, use for ostomy changes Dx- uc/ileostomy, 07/25/18 11:04:40 EDT, Compound Start Date: 07/25/18 Status: Ordered coloplast bags #63938 coloplast bags #36868, See Instructions, # 20 each, Refills 11, [...] 11 Refills, Maintenance, 07/29/19 11:40:00 EDT, Tablet, [facility] [place], [place] -, 172, cm, 06/25/19 10:26:00 EST, Height, 83.7, kg, 04/04/19 0:17:00 EST, Dry Weight Start Date: 07/29/19 Stop Date: 07/23/20 Status: Ordered hydrOXYzine hydrochloride 10 mg oral tablet 2 tablet = 20 mg, By Mouth, 3 times a day, PRN for itching, # 80 tablet, 0 Refills, Maintenance, 06/25/19 11:37:00 EST, Tablet, [place], [place] -, 172, cm, 06/25/19 10:26:00 EST, [...] 01/02/19 10:34:25 EDT, Route to Pharmacy Electronically, [id number], [place]... Start Date: 01/02/19 Stop Date: 07/01/19 Status: Ordered Januvia 50 mg oral tablet 1 tablet = 50 mg, By Mouth, Daily before breakfast, for diabetes, # 30 tablet, 11 Refills, Maintenance, 04/17/19 10:46:00 EST, Tablet, [place], [place] -, 172, cm, 04/17/19 9:42:00 EST, Height, 83.7, kg, 04/04/19 0:17:00 EST, Dry Weight Start Date: 04/17/19 Stop Date: 04/11/20 Status: Ordered LifeLine LifeLine, See Instructions, # 1 each, Refills 0, Tot. Refills 0, Maintenance, use to call for help in the home as directed length of need 99 B20, F32.9, F11.2 Pt address/#: [address] [place] [id number], [address]. [phone] Critical Signal... Start Date: 01/15/18 Status: Ordered [...] Date: 09/12/18 Status: Ordered No-nsting skin prep #[id number] No-nsting skin prep #[id number], See Instructions, # 1 bottle, Refills 11, Tot. Refills 11, Maintenance, Use as needed for ostomy care Dx: colostomy, 01/31/18 11:44:14 EDT, Compound Start Date: 01/31/18 Status: Ordered omeprazole 20 mg oral enteric coated capsule 1 capsule = 20 mg, By Mouth, Daily, PRN only if needed for acid reflux symptoms, # 30 capsule, 5 Refills, Maintenance, 04/17/19 10:49:00 EST, EC Capsule, [place], [place] -, 172, cm,04/17/19 9:42:00 EST, Height, [...] tablet, 5 Refills, Maintenance, 07/19/19 13:20:00 EDT, [place], [place] -, 172, cm, 06/25/19 10:26:00 EST, [...] 11 Refills, Maintenance, 06/16/19 12:26:00 EST, Tablet, [facility] [place], [place] -, 172, cm, 06/16/19 11:20:00 EST, [...] mg sublingual film 3 each, Sublingual, Daily, [id number], MassPATchecked. dissolve under tongue (ok to divide dose 3x/dif helps w/ pain), # 84 film, 0 Refills, Maintenance, 11/25/19 11:54:00 EDT, [place], [place] - [id number], 3 each Sublingual Daily,x... Start Date: 11/25/19 Stop Date: 12/23/19 Status: Ordered traZODone 100 mg oral tablet 1, tablet, By Mouth, Daily at bedtime, PRN, # 30 tablet, Refills 11, Tot. Refills 0, Maintenance, NEEDED FOR insomnia, 07/19/19 17:09:00 EDT, Route to Pharmacy Electronically, [facility], 172, cm, 06/25/19 10:26:00 EST, Height, 83.7, kg, 04/04... Start Date: 07/19/19 Status: Ordered Triumeq oral tablet 1 tablet, By Mouth, Daily, # 30 tablet, 11 Refills, Maintenance, 07/29/19 11:40:00 EDT, Tablet, [place], [place] -, 1 tablet By Mouth Daily,x30 days, 172, cm, 06/25/19 10:26:00 EST, Height, 83.7, kg, 04/04/19 0:17:00 EST, Dry Weight Start Date: 07/29/19 Stop Date: 07/23/20 Status: Ordered Unisolve adhesive remover #441946 Unisolve adhesive remover #141592, See Instructions, # 1 box, Refills 11, Tot. Refills 11, Maintenance, To remove appliance at every change Dx Ulcerative Colitis, 01/31/18 11:44:15 EDT, Compound Start Date: 01/31/18 Status: Ordered Voltaren 1% topical gel See Instructions, PRN pain R knee, apply to painful knees 1-2x/day maximum; wash hands after, # 100Gm, 3 Refills, Maintenance, 06/25/19 11:49:00 EST, Gel, [place], [place] -, apply to painful knees 1-2x/day [...] 0 Refills, Maintenance, 06/25/19 11:36:00 EST, Tablet, [facility] [place], [place] -, 172, cm, 06/25/19 10:26:00 EST, [...] inguinal pain(Confirmed) Active 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) Active *[id number]- Care Part ner Jacky Sandhu(Confirmed) Active traumatic [...]
--- OUTSIDE RECORDS SUMMARY | 2022-12-18 06:33 | XMS_ITS | Continuity of Care Document ---
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 Name Role Phone Noemi Ruffin MD, I Primary Care Physician Encounter [facility] [id number] Date(s): 03/15/20 - 04/14/[address] [address]- Attending Physician: Jorge A Sutton Admitting Physician: [...] VIS 10/03 3Result Comment: [12/07/2016] diluent LOT [id number] EXP 03/29/2018 4Result Comment: [07/18/2016] Liquid component: [id number], exp.: 05/2017 5Admin Note: VIS 12/13/2006 6Admin Note: vis 10/30/11 7Admin Note: vis [id number] 8Admin Note: done at [facility] this past march 9Admin Note: VIS GIVEN 2008- 10Admin Note: vis 11/25/06 Medications acetaminophen 500 mg oral tablet 1 tablet = 500 mg, By Mouth, 2 times a day, PRN for pain, take only if needed, # 60 tablet, 5 Refills, Maintenance, 04/17/19 10:49:00 EST, Tablet, [facility] [place], [place] -, 172, cm, 04/17/19 9:42:00 EST, Height, 83.7, kg, 04/04/19 0:17:00 E... Start Date: 04/17/19 Stop Date: 10/14/19 Status: Ordered albuterol CFC free 90 mcg/inh inhalation aerosol See Instructions, # 18 Gm, Refills 5 Tot. Refills 5, INHALE 2 PUFFS BY MOUTH INTO THE lungs 4 (FOUR) TIMES DAILY NEEDED FOR SHORTNESS OF BREATH OR FOR WHEEZING, [facility] [place], [place] - Start Date: 01/21/19 Status: Ordered Alcohol Pads See Instructions, # 50 each, Refills 11, Tot. Refills 11, Maintenance, E11.9 check BG daily, 12/05/18 7:49:59 EDT, Compound Start Date: 12/05/18 Status: Ordered amLODIPine 5 mg oral tablet 5 mg, 1, tablet, By Mouth, Daily at bedtime, # 30 tablet, Refills 11, Tot. Refills 11, Maintenance,06/16/19 12:27:00 EST, Route to Pharmacy Electronically, [place], [place] -, 172, cm, 06/16/19 11:20:00 EST, [...] 07/14/19 Status: Ordered Talbert Elastic barrier strips #393964 Talbert Elastic barrier strips #875364, See Instructions, # 1 units, Refills 11, [...] 04/17/19 10:43:00 EST, Route to Pharmacy Electronically, [place], [place] -, 172, cm, 04/17/19 9:42:00 EST, Height, 83.7, kg... Start Date: 04/17/19 Stop Date: 04/11/20 Status: Ordered carvedilol 6.25 mg oral tablet 6.25 mg, 1, tablet, By Mouth, 2 times a day, # 60 tablet, Refills 11, Tot. Refills 11, Maintenance,06/16/19 12:25:00 EST, Route to Pharmacy Electronically, [place], [place] -, 172, cm, 06/16/19 11:20:00 EST, [...] 1 Refills, Maintenance, 03/16/20 13:27:00 EST, Granule, [facility] [place], [place] - [phone], Partial fill u... Start Date: 03/16/20 Stop Date: 05/15/20 Status: Ordered coloplast #95214 pouch coloplast #77061 pouch, See Instructions, # 20 each, Refills 11, Tot. Refills 11, Maintenance, use as needed for ostomy care. 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 Fax to [facility]), 06/25/19 12:46:00 EST, Compound Start Date: 06/25/19 Status: Ordered coloplast #91493 pouch coloplast #80282 pouch, See Instructions, # 40 each, Refills 11, Tot. Refills 11, Maintenance, use as needed for ostomy care. 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 Fax to [facility]). disp 40 coloplast pouche... Start Date: 08/05/19 Status: Ordered coloplast 72430 convex 1 piece coloplast 26994 convex 1 piece, See Instructions, # 1 box, Refills 11, Tot. Refills 11, Maintenance, use for ostomy changes Dx- uc/ileostomy, 07/25/18 11:04:40 EDT, Compound Start Date: 07/25/18 Status: Ordered coloplast bags #19195 coloplast bags #38086, See Instructions, # 20 each, Refills 11, Tot. Refills 11, Maintenance, use as needed for ostomy care Dx. ileostomy Z93.2, 07/14/19 10:56:00 EDT, Compound Start Date: 07/14/19 Status: Ordered Compression Stockings See Instructions, # 4 each, Refills 1, Tot. Refills 1, Maintenance, knee high compression hose 20-30mm 4 pair dx bilateral leg edema. R60.0 pls fax to [facility], 05/12/19 14:02:00 EST, Compound Start Date: 05/12/19 [...] 04/19/20 8:54:00 EST, 04/12/20 8:53:00 EST, Tablet, [facility],Partial fill upon patient request [...] 11 Refills, Maintenance, 07/29/19 11:40:00 EDT, Tablet, [place], [place] -, 172, cm, 06/25/19 10:26:00 EST, Height, 83.7, kg, 04/04/19 0:17:00 EST, Dry Weight Start Date: 07/29/19 Stop Date: 07/23/20 Status: Ordered Januvia 50 mg oral tablet 1 tablet = 50 mg, By Mouth, Daily before breakfast, for diabetes, # 30 tablet, 11 Refills, Maintenance, 04/17/19 10:46:00 EST, Tablet, [place], [place] -, 172, cm, 04/17/19 9:42:00 EST, Height, 83.7, kg, 04/04/19 0:17:00 EST, Dry Weight Start Date: 04/17/19 Stop Date: 04/11/20 Status: Ordered LifeLine LifeLine, See Instructions, # 1 each, Refills 0, Tot. Refills 0, Maintenance, use to call for help in the home as directed length of need 99 B20, F32.9, F11.2 Pt address/#: [address] [place] [address], [address]. [phone] Critical Signal... Start Date: 01/15/18 Status: Ordered [...] Date: 09/12/18 Status: Ordered No-nsting skin prep #[id number] No-nsting skin prep #65727246, See Instructions, # 1 bottle, Refills 11, Tot. Refills 11, Maintenance, Use as needed for ostomy care Dx: colostomy, 01/31/18 11:44:14 EDT, Compound Start Date: 01/31/18 Status: Ordered omeprazole 20 mg oral enteric coated capsule 1 capsule = 20 mg, By Mouth, Daily, PRN only if needed for acid reflux symptoms, # 30 capsule, 5 Refills, Maintenance, 04/17/19 10:49:00 EST, EC Capsule, [facility] [place], [place] -, 172, cm,04/17/19 9:42:00 EST, Height, [...] 11 Refills, Maintenance, 06/16/19 12:26:00 EST, Tablet, [facility] [place], [place] -, 172, cm, 06/16/19 11:20:00 EST, [...] 07/19/19 17:09:00 EDT, Route to Pharmacy Electronically, [facility], 172, cm, 06/25/19 10:26:00 EST, Height, 83.7, kg, 04/04... Start Date: 07/19/19 Status: Ordered Triumeq oral tablet 1 tablet, By Mouth, Daily, # 30 tablet, 11 Refills, Maintenance, 07/29/19 11:40:00 EDT, Tablet, [facility] [place] [place] -, 1 tablet By Mouth Daily,x30 days, 172, cm, 06/25/19 10:26:00 EST, Height, 83.7, kg, 04/04/19 0:17:00 EST, Dry Weight Start Date: 07/29/19 Stop Date: 07/23/20 Status: Ordered Unisolve adhesive remover #254644 Unisolve adhesive remover #372794, See Instructions, # 1 box, Refills 11, Tot. Refills 11, Maintenance, To remove appliance at every change Dx Ulcerative Colitis, 01/31/18 11:44:15 EDT, Compound Start Date: 01/31/18 Status: Ordered warfarin 1 mg oral tablet See Instructions, Take 1-10 tablets By Mouth Daily as directed by EVELYN, # 150 tablet, 0 Refills, Maintenance, 04/12/20 8:51:00 EST, Tablet, [facility], Partial fill upon patient [...] inguinal pain(Confirmed) Active 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) Active [phone] Care Partn er-Jesica Jeter(Confirmed) Active traumatic splenectomy [...]
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
--- OUTSIDE RECORDS SUMMARY | 2022-12-18 06:33 | XMS_ITS | Continuity of Care Document ---
Author Name Unknown Organization [facility] Address [address] [place] [address]- Care Team Providers Care Mri Manager Name Role Phone Mora Gooden MD Primary Care Physician [facility]counter [facility] Date(s): 07/31/22 - 08/30/[address] [address]- Allergies, Adverse Reactions, Alerts Substance Reaction Severity Status ampicillin Active aspirin BLEEDING Persistent Severe Active Pollen NASAL CONGESTION SNEEZING Persistent Mode rate Active NSAIDs bleeding Persistent Severe Active Immunizations Given and Recorded Vaccine Date Status Refusal Reason [id number] 12y+ bivalent booster vax 02/02/22 Recorded SARS-CoV-2 [...] VIS 10/03 4Result Comment: [12/07/2016] diluent LOT [id number] EXP 03/29/2018 5Result Comment: [07/18/2016] Liquid component: [id number], exp.: 05/2017 6Admin Note: VIS 12/13/2006 7Admin Note: vis 10/30/11 8Admin Note: vis [id number] 9Admin Note: done at [facility] this past march 10Admin Note: VIS GIVEN 2008- 11Admin Note: vis 11/25/06 Medications acetaminophen 500 mg oral tablet 1 tablet, By Mouth, 4 times a day, PRN NEEDED FOR PAIN, TAKE ONLY IF needed, # 100 tablet, 5 Refills, Maintenance, 04/14/22 15:58:00 EST, [place], [place] - [id number], 167, cm, 04/10/22 11:48:00 EST, Height, 89.9, kg, 05/25/21 10:... Start Date: 04/14/22 Status: Ordered Albuterol (Eqv-ProAir HFA) 90 mcg/inh inhalation aerosol 2 puffs, Inhalation, 4 times a day, PRN NEEDED FOR SHORTNESS OF BREATH OR FOR WHEEZING, # 25.5 Gm, 5 Refills, [facility], 4, INHALE 2 PUFFS BY [...] 09/09/21 Status: Ordered Talbert Elastic barrier strips #[id number] Talbert Elastic barrier strips #679723, See Instructions, # 120 each, Refills 11, Tot. Refills 11, Maintenance, Dx: K51; Z93. 3 sig: use 4 strips a day with ostomy bag. disp: 4 bags of 30 strips = 120 strips per month. Fax to [facility] [phone], 04... Start Date: 08/21/22 Status: Ordered busPIRone 5 mg oral tablet 1, tablet, By Mouth, 3 times a day, PRN, # 270 tablet, Refills 1, Maintenance, NEEDED FOR ANXIETY, 07/24/22 17:21:00 EDT, Route to Pharmacy Electronically, [facility], 167, cm, 04/10/22 11:48:00 EST, Height, 89.9, kg, 05/25/21 10:21:00 EST, [facility]. Start Date: 07/24/22 Status: Ordered carvedilol 12.5 mg oral tablet 1, tablet, By Mouth, 2 times a day, # 180 tablet, Refills 1, Maintenance, 06/26/22 22:23:00 EST, Route to Pharmacy Electronically, [facility], 167, cm, 04/10/22 11:48:00 EST, Height, 89.9, kg, 05/25/21 10:21:00 EST, Dry Weight Start Date: 06/26/22 Status: Ordered cetirizine 10 mg oral tablet See Instructions, TAKE 1 TABLET BY MOUTH ONCE DAILY NEEDED for allergy, # 90 tablet, 1 Refills, Maintenance, 08/24/22 11:40:00 EDT, [facility], 167, cm, 08/01/22 10:08:00 EDT, Height, 89.9, kg, 05/25/21 10:21:00 EST, Dry Weight Start Date: 08/24/22 Status: Ordered coloplast #37749 pouch coloplast #01680 pouch, See Instructions, # 20 each, Refills 11, Tot. Refills 11, Maintenance, use as needed for ostomy care. 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 [facility]ax to [facility]), 06/25/19 12:46:00 EST, Compound Start Date: 06/25/19 Status: Ordered coloplast #31142 pouch coloplast #68551 pouch, See Instructions, # 40 each, Refills 11, Tot. Refills 11, Maintenance, use as needed for ostomy care. 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 Fax to [facility]). disp 40 coloplast pouche... Start Date: 08/05/19 Status: Ordered coloplast 38402 convex 1 piece coloplast 01073 convex 1 piece, See Instructions, # 1 box, Refills 11, Tot. Refills 11, Maintenance, use for ostomy changes Dx- uc/ileostomy, 07/25/18 11:04:40 EDT, Compound Start Date: 07/25/18 Status: Ordered coloplast bags #16571 coloplast bags #97565, See Instructions, # 20 each, Refills 11, [...] leg edema. R60.0 pls fax to [facility], 05/12/19 14:02:00 EST, Compound Start [...] 11 Refills, Maintenance, 04/21/22 14:15:00 EST, Tablet, [facility] [place] [place] - [phone], Partial fill upon pa... Start Date: 04/21/22 [...] tablet, 11 Refills, Maintenance, 06/27/22 16:38:00 EST, [facility], 167, cm, 04/10/22 11:48:00 EST, [...] tablet, 5 Refills, Maintenance, 08/24/22 11:41:00 EDT, [place], [place] - [id number], 167, cm, 08/01/22 10:08:00 EDT, Height, 89.9, [...] 11 Refills, Maintenance, 07/07/22 11:45:00 EST, Tablet, [facility] [place], [place] - [id number], Partial fill upon patient request if the prescription is for a schedule II opioid drug., 167,... Start Date: 07/07/22 Status: Ordered LifeLine LifeLine, See Instructions, # 1 each, Refills 0, Tot. Refills 0, Maintenance, use to call for help in the home as directed length of need 99 B20, F32.9, F11.2 Pt address/#: [address] [place] [address], [address]. [phone] Critical Signal... Start Date: 01/15/18 Status: Ordered [...] Date: 09/12/18 Status: Ordered No-nsting skin prep #[id number] No-nsting skin prep #47694034, See Instructions, # 1 bottle, Refills 11, Tot. Refills 11, Maintenance, Use as needed for ostomy care Dx: colostomy, 01/31/18 11:44:14 EDT, Compound Start Date: 01/31/18 Status: Ordered omeprazole 40 mg oral enteric coated capsule 1 capsule, By Mouth, 2 times a day, # 60 capsule, 1 Refills, Maintenance, 07/24/22 17:23:00 EDT, [facility], 167, cm, 04/10/22 11:48:00 EST, [...] Gm, 5 Refills, Maintenance, 08/24/22 15:20:00 EDT, [facility], 30, DISSOLVE 17GM IN WATER [...] ICD 10 Z93. 3; K51 Fax to [facility], 08/14/22 17:38:00 EDT, Supply Start [...] 84film, 0 Refills, Maintenance, 08/08/22 21:41:00 EDT, [facility] [id number], 3 film Sublingual Daily,x28 days,Instr:pls fill... Start Date: 08/08/22 Stop Date: 09/05/22 Status: Ordered traZODone 100 mg oral tablet 1, tablet, By Mouth, Daily at bedtime, PRN, # 90 tablet, Refills 1, Maintenance, NEEDED FOR insomnia, 06/27/22 16:38:00 EST, Route to Pharmacy Electronically, [facility], 167, cm, 04/10/22 11:48:00 EST, Height, 89.9, kg, 05/25/21 10:21:00 EST,... Start Date: 06/27/22 Status: Ordered Trulicity Pen 0.75 mg/0.5 mL subcutaneous solution 0.5 mL = 0.75 mg, Subcutaneous Injection, Every week, rotate injection sites, # 2 mL, 11 Refills, Maintenance, 07/07/22 11:45:00 EST, Solution, [place], [place] - [id number], Partialfill upon patient request if the prescription is fo... 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 SLAC (scapholunate advanced [...] Team Personnel Name: Maru Grey NP [facility] Associate Professional Member Role: Primary Care Nurse Address: Address: [address] [place] [address] [place] [address]- Name: Arianne George RN Position: [facility] RN Member Role: Primary Care Nurse Name: Radha Ewing RN Position: [facility] RN Member Role: Primary Care Nurse Name: Macey Trevino RN Position: [facility] PCO RN Member Role: Primary Care Nurse Name: Nesha Leigh RN Position: [facility] SN RN Member Role: Primary Care Nurse Name: Alanna Ashby RN Position: [facility] RN Member Role: Primary Care Nurse Name: Loren Jimenez RN Position: [facility] RN Member Role: Primary Care Nurse Name: Starr Poon RN Position: [facility] SN RN Member Role: Primary Care Nurse Name: Vilma Perez RN Position: [facility] MR W/ Merge Member Role: Primary Care Nurse Name: John Noguera RN Position: [facility] RN Member Role: Primary Care Nurse Name: Dunia Arechiga RN Position: [facility] RN Member Role: Primary Care Nurse Name: Kamilah Baron Position: [facility] PCO TA Member Role: Primary Care Nurse Name: Ro Lopez RN Position: [facility] RN Member Role: Primary Care Nurse Name: Kosta Braun III, RN Position: [facility] RN Member Role: Primary Care Nurse Name: Lauryn Jiménez RN Position: [facility] Health Physics Technician Member Role: Primary Care Nurse Name: Jorge Ching RN Position: [facility] RN Member Role: Primary Care Nurse Name: Valarie Srivastava RN Position: [facility] RN Member Role: Primary Care Nurse Name: Monica Jacobs RN Position: [facility] RN Member Role: Primary Care Nurse Name: Johanna Castaneda RN Position: [facility] RN Member Role: Primary Care Nurse Address: Address: [address] [place] [address]- [place] Name: Luisa Zavaleta RN Position: [facility] AMB Nurse Member Role: Primary Care Nurse Name: Yulissa Mora RN Position: [facility] SN RN Member Role: Primary Care Nurse Name: Francine Abrams RN Position: [facility] RN Member Role: Primary Care Nurse Name: Shea Marinelli RN Position: [facility] RN Member Role: Primary Care Nurse Name: Mora Gooden MD Position: [facility] Primary Care Physician Member Role: PCP Address: Address: [address] [place] [address]- Care Team Related Persons Name: PEGGY GARDNER Address: [address] [place] [address] Name: JLUIS WHITE NAME Name: ADIA WINTERS
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
--- OUTSIDE RECORDS SUMMARY | 2022-12-18 06:34 | XMS_ITS | Continuity of Care Document ---
Author Name Unknown Organization [facility] Address [address] [place] [address]- Care Team Providers Care Forest Aide Name Role Phone Noemi Ruffin MD, I Primary Care Physician [facility] Date[facility]): 11/24/19 - 12/24/[address] [address]- [facility] Allergies, Adverse Reactions, Alerts Substance Reaction [...] VIS 10/03 3Result Comment: [12/07/2016] diluent LOT [id number] EXP 03/29/2018 4Result Comment: [07/18/2016] Liquid component: [id number], exp.: 05/2017 5Admin Note: VIS 12/13/2006 6Admin Note: vis 10/30/11 7Admin Note: vis [id number] 8Admin Note: done at [facility] this past march 9Admin Note: VIS GIVEN 2008- 10Admin Note: vis 11/25/06 Medications acetaminophen 500 mg oral tablet 1 tablet = 500 mg, By Mouth, 2 times a day, PRN for pain, take only if needed, # 60 tablet, 5 Refills, Maintenance, 04/17/19 10:49:00 EST, Tablet, [place], [place] -, 172, cm, 04/17/19 9:42:00 EST, Height, 83.7, kg, 04/04/19 0:17:00 E... Start Date: 04/17/19 Stop Date: 10/14/19 Status: Ordered albuterol CFC free 90 mcg/inh inhalation aerosol See Instructions, # 18 Gm, Refills 5 Tot. Refills 5, INHALE 2 PUFFS BY MOUTH INTO THE lungs 4 (FOUR) TIMES DAILY NEEDED FOR SHORTNESS OF BREATH OR FOR WHEEZING, [place], [place] - Start Date: 01/21/19 Status: Ordered Alcohol Pads See Instructions, # 50 each, Refills 11, Tot. Refills 11, Maintenance, E11.9 check BG daily, 12/05/18 7:49:59 EDT, Compound Start Date: 12/05/18 Status: Ordered amLODIPine 5 mg oral tablet 5 mg, 1, tablet, By Mouth, Daily, # 30 tablet, Refills 11, Tot. Refills 11, Maintenance, 06/16/19 12:27:00 EST, Route to Pharmacy Electronically, [facility] - [place], [place] -, 172, cm, 06/16/19 11:20:00 EST, [...] 07/14/19 Status: Ordered Talbert Elastic barrier strips #273773 Talbert Elastic barrier strips #091770, See Instructions, # 1 units, Refills 11, Tot. Refills 11, Maintenance, To remove appliance at every change Dx Ulcerative Colitis, 01/31/18 11:44:17 EDT, Compound Start Date: 01/31/18 Status: Ordered busPIRone 5 mg oral tablet 5 mg, 1, tablet, By Mouth, 3 times a day, for anxiety, # 90 tablet, Refills 11, Tot. Refills 11, Maintenance, 04/17/19 10:43:00 EST, Route to Pharmacy Electronically, [place], [place] -, 172, cm, 04/17/19 9:42:00 EST, Height, 83.7, kg... Start Date: 04/17/19 Stop Date: 04/11/20 Status: Ordered carvedilol 6.25 mg oral tablet 6.25 mg, 1, tablet, By Mouth, 2 times a day, # 60 tablet, Refills 11, Tot. Refills 11, Maintenance,06/16/19 12:25:00 EST, Route to Pharmacy Electronically, [place], [place] -, 172, cm, 06/16/19 11:20:00 EST, [...] 04/17/19 10:43:00 EST, Route to Pharmacy Electronically, [place], [place] -, 172, cm, 04/17/19 9:42:00 EST, Height, 83.7, kg, 04/04/19 0:17:... Start Date: 04/17/19 Stop Date: 04/11/20 Status: Ordered Citrucel 500 mg oral tablet 2 tablet = 1,000 mg, By Mouth, Daily, for 60 days, with plenty of water, # 120 tablet, 1 Refills, Acute 02/12/20 16:54:00 EDT, 10/15/19 16:54:00 EDT, [facility], 172, cm, 06/25/19 10:26:00 EST, Height, 83.7, kg, 04/04/19 0:17:... Start Date: 10/15/19 Stop Date: 02/12/20 Status: Ordered coloplast #51976 pouch coloplast #63877 pouch, See Instructions, # 20 each, Refills 11, Tot. Refills 11, Maintenance, use as needed for ostomy care. 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 Fax to [facility]), 06/25/19 12:46:00 EST, Compound Start Date: 06/25/19 Status: Ordered coloplast #45375 pouch coloplast #44661 pouch, See Instructions, # 40 each, Refills 11, Tot. Refills 11, Maintenance, use as needed for ostomy care. 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 Fax to Andre ([facility]). disp 40 coloplast pouche... Start Date: 08/05/19 Status: Ordered coloplast 17002 convex 1 piece coloplast 73810 convex 1 piece, See Instructions, # 1 box, Refills 11, Tot. Refills 11, Maintenance, use for ostomy changes Dx- uc/ileostomy, 07/25/18 11:04:40 EDT, Compound Start Date: 07/25/18 Status: Ordered coloplast bags #78028 coloplast bags #42051, See Instructions, # 20 each, Refills 11, Tot. Refills 11, Maintenance, use as needed for ostomy care Dx. ileostomy Z93.2, 07/14/19 10:56:00 EDT, Compound Start Date: 07/14/19 Status: Ordered Compression Stockings See Instructions, # 4 each, Refills 1, Tot. Refills 1, Maintenance, knee high compression hose 20-30mm 4 pair dx bilateral leg edema. R60.0 pls fax to [facility], 05/12/19 14:02:00 EST, Compound Start [...] 11 Refills, Maintenance, 07/29/19 11:40:00 EDT, Tablet, [facility] [place], [place] -, 172, cm, 06/25/19 10:26:00 EST, Height, 83.7, kg, 04/04/19 0:17:00 EST, Dry Weight Start Date: 07/29/19 Stop Date: 07/23/20 Status: Ordered hydrOXYzine hydrochloride 10 mg oral tablet 2 tablet = 20 mg, By Mouth, 3 times a day, PRN for itching, # 80 tablet, 0 Refills, Maintenance, 06/25/19 11:37:00 EST, Tablet, [place], [place] -, 172, cm, 06/25/19 10:26:00 EST, [...] 01/02/19 10:34:25 EDT, Route to Pharmacy Electronically, [id number], Kate... Start Date: 01/02/19 Stop Date: 07/01/19 Status: Ordered Januvia 50 mg oral tablet 1 tablet = 50 mg, By Mouth, Daily before breakfast, for diabetes, # 30 tablet, 11 Refills, Maintenance, 04/17/19 10:46:00 EST, Tablet, [place], [place] -, 172, cm, 04/17/19 9:42:00 EST, Height, 83.7, kg, 04/04/19 0:17:00 EST, Dry Weight Start Date: 04/17/19 Stop Date: 04/11/20 Status: Ordered LifeLine LifeLine, See Instructions, # 1 each, Refills 0, Tot. Refills 0, Maintenance, use to call for help in the home as directed length of need 99 B20, F32.9, F11.2 Pt address/#: [address] [place] [address], [address]. [phone] Critical Signal... Start Date: 01/15/18 Status: Ordered [...] Date: 09/12/18 Status: Ordered No-nsting skin prep #[id number] No-nsting skin prep #[id number], See Instructions, # 1 bottle, Refills 11, Tot. Refills 11, Maintenance, Use as needed for ostomy care Dx: colostomy, 01/31/18 11:44:14 EDT, Compound Start Date: 01/31/18 Status: Ordered omeprazole 20 mg oral enteric coated capsule 1 capsule = 20 mg, By Mouth, Daily, PRN only if needed for acid reflux symptoms, # 30 capsule, 5 Refills, Maintenance, 04/17/19 10:49:00 EST, EC Capsule, [place], [place] -, 172, cm,04/17/19 9:42:00 EST, Height, [...] tablet, 5 Refills, Maintenance, 07/19/19 13:20:00 EDT, [facility], 172, cm, 06/25/19 10:26:00 EST, [...] 11 Refills, Maintenance, 06/16/19 12:26:00 EST, Tablet, [facility] - [place], [place] -, 172, cm, 06/16/19 11:20:00 EST, [...] mg sublingual film 3 each, Sublingual, Daily, [id number], MassPATchecked. dissolve under tongue (ok to divide dose 3x/dif helps w/ pain), # 84 film, 0 Refills, Maintenance, 11/25/19 11:54:00 EDT, [place], [place] - [id number], 3 each Sublingual Daily,x... Start Date: 11/25/19 Stop Date: 12/23/19 Status: Ordered traZODone 100 mg oral tablet 1, tablet, By Mouth, Daily at bedtime, PRN, # 30 tablet, Refills 11, Tot. Refills 0, Maintenance, NEEDED FOR insomnia, 07/19/19 17:09:00 EDT, Route to Pharmacy Electronically, [facility], 172, cm, 06/25/19 10:26:00 EST, Height, 83.7, kg, 04/04... Start Date: 07/19/19 Status: Ordered Triumeq oral tablet 1 tablet, By Mouth, Daily, # 30 tablet, 11 Refills, Maintenance, 07/29/19 11:40:00 EDT, Tablet, [place], [place] -, 1 tablet By Mouth Daily,x30 days, 172, cm, 06/25/19 10:26:00 EST, Height, 83.7, kg, 04/04/19 0:17:00 EST, Dry Weight Start Date: 07/29/19 Stop Date: 07/23/20 Status: Ordered Unisolve adhesive remover #088099 Unisolve adhesive remover #384225, See Instructions, # 1 box, Refills 11, Tot. Refills 11, Maintenance, To remove appliance at every change Dx Ulcerative Colitis, 01/31/18 11:44:15 EDT, Compound Start Date: 01/31/18 Status: Ordered Voltaren 1% topical gel See Instructions, PRN pain R knee, apply to painful knees 1-2x/day maximum; wash hands after, # 100Gm, 3 Refills, Maintenance, 06/25/19 11:49:00 EST, Gel, [place], [place] -, apply to painful knees 1-2x/day [...] 0 Refills, Maintenance, 06/25/19 11:36:00 EST, Tablet, [facility] - [place], [place] -, 172, cm, 06/25/19 10:26:00 EST, [...] inguinal pain(Confirmed) Active 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) Active *[id number]- Care Part ner Jacky Sandhu(Confirmed) Active traumatic [...]
--- OUTSIDE RECORDS SUMMARY | 2022-12-18 06:34 | XMS_ITS | Continuity of Care Document ---
Author Name Unknown Organization [facility] Address [address] [place] [address]- Care Team Providers Care Assistant Secretary Name Role Phone Noemi Ruffin MD, I Primary Care Physician Encounter [facility] Date(s): 07/22/20 - 08/21/[address] [address]- Allergies, Adverse Reactions, Alerts Substance Reaction Severity [...] VIS 10/03 4Result Comment: [12/07/2016] diluent LOT [id number] EXP 03/29/2018 5Result Comment: [07/18/2016] Liquid component: [id number], exp.: 05/2017 6Admin Note: VIS 12/13/2006 7Admin Note: vis 10/30/11 8Admin Note: vis [id number] 9Admin Note: done at [facility] this past march 10Admin Note: VIS GIVEN 2008- 11Admin Note: vis 11/25/06 Medications acetaminophen 500 mg oral tablet 1 tablet = 500 mg, By Mouth, 2 times a day, PRN for pain, take only if needed, # 60 tablet, 5 Refills, Maintenance, 04/17/19 10:49:00 EST, Tablet, [facility] [place], [place] -, 172, cm, 04/17/19 9:42:00 EST, Height, 83.7, kg, 04/04/19 0:17:00 E... Start Date: 04/17/19 Stop Date: 10/14/19 Status: Ordered albuterol CFC free 90 mcg/inh inhalation aerosol See Instructions, # 18 Gm, Refills 5 Tot. Refills 5, INHALE 2 PUFFS BY MOUTH INTO THE lungs 4 (FOUR) TIMES DAILY NEEDED FOR SHORTNESS OF BREATH OR FOR WHEEZING, [facility] - [place], [place] - Start Date: 01/21/19 Status: Ordered Alcohol Pads See Instructions, # 50 each, Refills 11, Tot. Refills 11, Maintenance, E11.9 check BG daily, 12/05/18 7:49:59 EDT, Compound Start Date: 12/05/18 Status: Ordered amLODIPine 5 mg oral tablet 1 tablet, By Mouth, Daily, # 30 tablet, 11 Refills, Maintenance, 06/22/20 20:22:00 EST, [facility], 173, cm, 04/12/20 11:01:00 EST, Height, 86.8, kg, 04/07/20 8:07:00 EST, Dry Weight Start Date: 06/22/20 Status: Ordered apixaban 2.5 mg oral tablet 1 tablet = 2.5 mg, By Mouth, 2 times a day, # 60 tablet, 0 Refills, Maintenance, 07/30/20 9:38:00 EDT, Tablet, [facility], Partial fill upon patient [...] 07/14/19 Status: Ordered Talbert Elastic barrier strips #455735 Talbert Elastic barrier strips #707281, See Instructions, # 1 units, Refills 11, Tot. Refills 11, Maintenance, To remove appliance at every change Dx Ulcerative Colitis, 01/31/18 11:44:17 EDT, Compound Start Date: 01/31/18 Status: Ordered busPIRone 5 mg oral tablet 5 mg, 1, tablet, By Mouth, 3 times a day, for anxiety, # 270 tablet, Refills 1, Tot. Refills 1, Maintenance, 04/19/20 11:34:00 EST, Route to Pharmacy Electronically, [facility] [id number], 173, cm, 04/12/20 11:01:00 EST, Heigh... Start Date: 04/19/20 Stop Date: 11/15/20 Status: Ordered carvedilol 6.25 mg oral tablet 6.25 mg, 1, tablet, By Mouth, 2 times a day, # 60 tablet, Refills 11, Tot. Refills 11, Maintenance,06/22/20 21:17:00 EST, Route to Pharmacy Electronically, [facility] [id number], 173, cm, 04/12/20 11:01:00 EST, Height, 86.8,... Start Date: 06/22/20 Stop Date: 06/17/21 Status: Ordered cetirizine 10 mg oral tablet 1 tablet = 10 mg, By Mouth, Daily, PRN if needed for allergy symptoms, do not blister pack, # 90 tablet, 1 Refills, Maintenance, 04/19/20 11:34:00 EST, Tablet, [facility] [id number], 173, cm, 04/12/20 11:01:00 EST, Height, 86.... Start Date: 04/19/20 Stop Date: 10/16/20 Status: Ordered Colace Capsule 100 mg, 1, capsule, By Mouth, 2 times a day, Hold for loose stool, Refills 0, Maintenance, :50:00 EST, Partial fill upon patient request if the prescription is for a schedule II opioid drug. Start Date: 04/12/20 Status: Ordered coloplast #09195 pouch coloplast #31792 pouch, See Instructions, # 20 each, Refills 11, Tot. Refills 11, Maintenance, use as needed for ostomy care. 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 Fax to [facility]), 06/25/19 12:46:00 EST, Compound Start Date: 06/25/19 Status: Ordered coloplast #74698 pouch coloplast #20099 pouch, See Instructions, # 40 each, Refills 11, Tot. Refills 11, Maintenance, use as needed for ostomy care. 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 Fax to Andre ([facility]). disp 40 coloplast pouche... Start Date: 08/05/19 Status: Ordered coloplast 67581 convex 1 piece coloplast 00026 convex 1 piece, See Instructions, # 1 box, Refills 11, Tot. Refills 11, Maintenance, use for ostomy changes Dx- uc/ileostomy, 07/25/18 11:04:40 EDT, Compound Start Date: 07/25/18 Status: Ordered coloplast bags #92779 coloplast bags #52219, See Instructions, # 20 each, Refills 11, Tot. Refills 11, Maintenance, use as needed for ostomy care Dx. ileostomy Z93.2, 07/14/19 10:56:00 EDT, Compound Start Date: 07/14/19 Status: Ordered Compression Stockings See Instructions, # 4 each, Refills 1, Tot. Refills 1, Maintenance, knee high compression hose 20-30mm 4 pair dx bilateral leg edema. R60.0 pls fax to [facility], 05/12/19 14:02:00 EST, Compound Start Date: 05/12/19 [...] 11 Refills, Maintenance, 07/23/20 12:00:00 EDT, Tablet, [place], [place] - [id number], 173, cm, 07/19/20 10:52:00 EDT, Height, 86.8, [...] 07/18/21 12:01:00 EDT, 07/23/20 12:01:00 EDT, Tablet, [facility] [place], [place] - [id number], 173, cm, 07/19/20 10:52:00 EDT, Hei... Start Date: 07/23/20 Stop Date: 07/18/21 Status: Ordered LifeLine LifeLine, See Instructions, # 1 each, Refills 0, Tot. Refills 0, Maintenance, use to call for help in the home as directed length of need 99 B20, F32.9, F11.2 Pt address/#: [address] [place] [address], [address]. [phone] Critical Signal... Start Date: 01/15/18 Status: Ordered [...] Date: 09/12/18 Status: Ordered No-nsting skin prep #[id number] No-nsting skin prep #07019574, See Instructions, # 1 bottle, Refills 11, Tot. Refills 11, Maintenance, Use as needed for ostomy care Dx: colostomy, 01/31/18 11:44:14 EDT, Compound Start Date: 01/31/18 Status: Ordered omeprazole 20 mg oral enteric coated capsule 1 capsule = 20 mg, By Mouth, Daily, PRN only if needed for acid reflux symptoms, # 90 capsule, 1 Refills, Maintenance, 07/23/20 12:01:00 EDT, EC Capsule, [facility] [place], [place] - [id number], 173, cm, 07/19/20 10:52:00 EDT, Height, 86.8, [...] tablet, 11 Refills, Maintenance, 08/02/20 17:47:00 EDT, [facility], 172, cm, 07/30/20 16:38:00 EDT, [...] tablet, 11 Refills, Maintenance, 06/22/20 20:22:00 EST, [facility], 173, cm, 04/12/20 11:01:00 EST, [...] mg sublingual film 1.5 film, Sublingual, Daily, [id number] MassPATchecked. dissolve under tongue, # 42 film, 0 Refills,Maintenance, 07/19/20 11:29:00 EDT, [place], [place] - [id number], 1.5 film Sublingual Daily,x28 days,Instr:[id number]; MassPATchec... Start Date: 07/19/20 Stop Date: 08/16/20 Status: Ordered traZODone 100 mg oral tablet 1, tablet, By Mouth, Daily at bedtime, PRN, # 30 tablet, Refills 11, Tot. Refills 0, Maintenance, NEEDED FOR insomnia, 07/23/20 12:03:00 EDT, Route to Pharmacy Electronically, [facility], 173, cm, 07/19/20 10:52:00 EDT, Height, 86.8, kg, 04/07... Start Date: 07/23/20 Status: Ordered Triumeq oral tablet 1 tablet, By Mouth, Daily, # 30 tablet, 11 Refills, Maintenance, 07/23/20 12:00:00 EDT, Tablet, [facility] [place], [place] - [id number], 1 tablet By Mouth Daily,x30 days, 173, cm, 07/19/20 10:52:00 EDT, Height, 86.8, kg, 04/07/20 8:07:00 Heri MCGOVERN.. Start Date: 07/23/20 Stop Date: 07/18/21 Status: Ordered Unisolve adhesive remover #062152 Unisolve adhesive remover #925407, See Instructions, # 1 box, Refills 11, [...] inguinal pain(Confirmed) Active 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) Active *[phone] Care Partn krysten-Jesica Corona(Confirmed) Active traumatic splenectomy [...]
--- OUTSIDE RECORDS SUMMARY | 2022-12-18 06:34 | XMS_ITS | Continuity of Care Document ---
Author Name Unknown Organization [facility] Address [address] [place] [address]- Care Team Providers Care Linux Kernel Developer Name Role Phone Laly FERNANDEZ, Noemi Marshall Primary Care Physician [phone] Encounter [facility] Date(s): 06/18/21 - 07/18/[address] [address]- Allergies, Adverse Reactions, Alerts Substance Reaction Severity [...] VIS 10/03 4Result Comment: [12/07/2016] diluent LOT [id number] EXP 03/29/2018 5Result Comment: [07/18/2016] Liquid component: [id number], exp.: 05/2017 6Admin Note: VIS 12/13/2006 7Admin Note: vis 10/30/11 8Admin Note: vis [id number] 9Admin Note: done at [facility] this past march 10Admin Note: VIS GIVEN 2008- 11Admin Note: vis 11/25/06 Medications acetaminophen 500 mg oral tablet 1 tablet, By Mouth, 2 times a day, PRN NEEDED FOR PAIN, TAKE ONLY IF needed, # 60 tablet, 5 Refills, [facility], 172, cm, 01/18/21 12:02:00 EDT, Height, 89.7, kg, 07/29/20 7:42:00 EDT, Dry Weight Start Date: 01/27/21 Status: Ordered Albuterol (Eqv-ProAir HFA) 90 mcg/inh inhalation aerosol 2 puffs, Inhalation, 4 times a day, PRN NEEDED FOR SHORTNESS OF BREATH OR FOR WHEEZING, # 25.5 Gm, 1 Refills, Maintenance, 02/21/21 9:52:00 EDT, [place], [place] - [id number], 2 puffs Inhalation 4 times a day,PRN: [...] 07/14/19 Status: Ordered Talbert Elastic barrier strips #042878 Talbert Elastic barrier strips #169756, See Instructions, # 1 units, Refills 11, Tot. Refills 11, Maintenance, To remove appliance at every change Dx Ulcerative Colitis, 01/31/18 11:44:17 EDT, Compound Start Date: 01/31/18 Status: Ordered busPIRone 5 mg oral tablet 1, tablet, By Mouth, 3 times a day, FOR ANXIETY., # 90 tablet, Refills 1, Route to Pharmacy Electronically, [facility], 167, cm, 05/26/21 7:07:00 EST, Height, 89.9, kg, 05/25/21 10:21:00 EST, Dry Weight Start Date: 06/22/21 Status: Ordered carvedilol 12.5 mg oral tablet 12.5 mg, 1, tablet, By Mouth, 2 times a day, increase in dose, # 60 tablet, Refills 11, Tot. Refills 11, Maintenance, 10/12/20 11:48:00 EDT, Route to Pharmacy Electronically, [place], [place] - [id number], Partial fill upon patient re... Start Date: 10/12/20 Stop Date: 10/07/21 Status: Ordered cetirizine 10 mg oral tablet 1 tablet, By Mouth, Daily, PRN NEEDED for allergy, # 90 tablet, 1 Refills, Maintenance, 04/21/2112:42:00 EST, [facility], [place] - [id number], 172, cm, 02/22/21 10:36:00 EDT, Height, 89.7, kg, 07/29/20 7:42:00 EDT, Dry Weight Start Date: 04/21/21 Status: Ordered coloplast #43864 pouch coloplast #47411 pouch, See Instructions, # 20 each, Refills 11, Tot. Refills 11, Maintenance, use as needed for ostomy care. 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 Fax to [facility]), 06/25/19 12:46:00 EST, Compound Start Date: 06/25/19 Status: Ordered coloplast #18961 pouch coloplast #72615 pouch, See Instructions, # 40 each, Refills 11, Tot. Refills 11, Maintenance, use as needed for ostomy care. 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 Fax to Andre ([facility]). disp 40 coloplast pouche... Start Date: 08/05/19 Status: Ordered coloplast 93343 convex 1 piece coloplast 27545 convex 1 piece, See Instructions, # 1 box, Refills 11, Tot. Refills 11, Maintenance, use for ostomy changes Dx- uc/ileostomy, 07/25/18 11:04:40 EDT, Compound Start Date: 07/25/18 Status: Ordered coloplast bags #54671 coloplast bags #09146, See Instructions, # 20 each, Refills 11, Tot. Refills 11, Maintenance, use as needed for ostomy care Dx. ileostomy Z93.2, 07/14/19 10:56:00 EDT, Compound Start Date: 07/14/19 Status: Ordered Compression Stockings See Instructions, # 4 each, Refills 1, Tot. Refills 1, Maintenance, knee high compression hose 20-30mm 4 pair dx bilateral leg edema. R60.0 pls fax to [facility], 05/12/19 14:02:00 EST, Compound Start Date: [...] 11 Refills, Maintenance, 07/23/20 12:00:00 EDT, Tablet, [facility] [id number], 173, cm, 07/19/20 10:52:00 EDT, Height, 86.8, kg, 04/07/20 8:07:00 EST, Dry Weight Start Date: 07/23/20 Stop Date: 07/18/21 Status: Ordered hydrochlorothiazide 12.5 mg oral tablet 1 tablet = 12.5 mg, By Mouth, Daily, # 30 tablet, 11 Refills, Maintenance, 01/04/21 11:11:00 EDT, Tablet, [facility] [id number], Partial fill upon patient request if the [...] 99 B20, F32.9, F11.2 Pt address/#: [address] [facility] [address], [address]. [phone] Critical Signal... Start Date: 01/15/18 Status: Ordered [...] Date: 09/12/18 Status: Ordered No-nsting skin prep #94121502 No-nsting skin prep #29471025, See Instructions, # 1 bottle, Refills 11, Tot. Refills 11, Maintenance, Use as needed for ostomy care Dx: colostomy, 01/31/18 11:44:14 EDT, Compound Start Date: 01/31/18 Status: Ordered omeprazole 40 mg oral enteric coated capsule 1 capsule, By Mouth, 2 times a day, # 60 capsule, 1 Refills, [facility], 167, cm, 05/26/21 7:07:00 [...] tablet, 11 Refills, Maintenance, 08/02/20 17:47:00 EDT, [facility], 172, cm, 07/30/20 16:38:00 EDT, [...] Mouth, Daily, # 45 tablet, 11 Refills, [facility], 167, cm, 05/26/21 7:07:00 [...] mg sublingual film 3 film, Sublingual, Daily, [id number] MassPATchecked. dissolve under tongue Due 07/12/2021, # 84 film, 0 Refills, Maintenance, 07/14/21 11:59:00 EDT, [place], [place] - [id number], increase in dose from 16 mg to 24 mg daily, 3 angélica... Start Date: 07/14/21 Stop Date: 08/11/21 Status: Ordered traZODone 100 mg oral tablet 1, tablet, By Mouth, Daily at bedtime, PRN, # 30 tablet, Refills 11, Tot. Refills 0, Maintenance, NEEDED FOR insomnia, 07/23/20 12:03:00 EDT, Route to Pharmacy Electronically, [facility], 173, cm, 07/19/20 10:52:00 EDT, Height, 86.8, kg, 04/07... Start Date: 07/23/20 Status: Ordered Triumeq oral tablet 1 tablet, By Mouth, Daily, # 30 tablet, 11 Refills, Maintenance, 07/23/20 12:00:00 EDT, Tablet, [facility] [place], [place] - [id number], 1 tablet By Mouth Daily,x30 days, 173, cm, 07/19/20 10:52:00 EDT, Height, 86.8, kg, 04/07/20 8:07:00 EST DCatalino.. Start Date: 07/23/20 Stop Date: 07/18/21 Status: Ordered Unisolve adhesive remover #745840 Unisolve adhesive remover #369970, See Instructions, # 1 box, Refills 11, [...] in obese(Confirmed) Active Obese class I(Confirmed) Active *[phone] Care Partn krysten-Jesica Jeter(Confirmed) Active traumatic splenectomy [...]
--- OUTSIDE RECORDS SUMMARY | 2022-12-18 06:34 | XMS_ITS | Continuity of Care Document ---
Author Name Unknown Organization [facility] Address [address] [place] [address]- Care Team Providers Care Inspector Raw Quartz Name Role Phone Noemi Ruffin MD, I Primary Care Physician [phone] Encounter [facility] Date(s): 02/04/20 - 03/05/[address] [address]- Allergies, Adverse Reactions, Alerts Substance Reaction Severity [...] VIS 10/03 3Result Comment: [12/07/2016] diluent LOT [id number] EXP 03/29/2018 4Result Comment: [07/18/2016] Liquid component: [id number], exp.: 05/2017 5Admin Note: VIS 12/13/2006 6Admin Note: vis 10/30/11 7Admin Note: vis [id number] 8Admin Note: done at [facility] this past march 9Admin Note: VIS GIVEN 2008- 10Admin Note: vis 11/25/06 Medications acetaminophen 500 mg oral tablet 1 tablet = 500 mg, By Mouth, 2 times a day, PRN for pain, take only if needed, # 60 tablet, 5 Refills, Maintenance, 04/17/19 10:49:00 EST, Tablet, [place], [place] -, 172, cm, 04/17/19 9:42:00 EST, Height, 83.7, kg, 04/04/19 0:17:00 E... Start Date: 04/17/19 Stop Date: 10/14/19 Status: Ordered albuterol CFC free 90 mcg/inh inhalation aerosol See Instructions, # 18 Gm, Refills 5 Tot. Refills 5, INHALE 2 PUFFS BY MOUTH INTO THE lungs 4 (FOUR) TIMES DAILY NEEDED FOR SHORTNESS OF BREATH OR FOR WHEEZING, [place], [place] - Start Date: 01/21/19 Status: Ordered Alcohol Pads See Instructions, # 50 each, Refills 11, Tot. Refills 11, Maintenance, E11.9 check BG daily, 12/05/18 7:49:59 EDT, Compound Start Date: 12/05/18 Status: Ordered amLODIPine 5 mg oral tablet 5 mg, 1, tablet, By Mouth, Daily, # 30 tablet, Refills 11, Tot. Refills 11, Maintenance, 06/16/19 12:27:00 EST, Route to Pharmacy Electronically, [facility] [place], [place] -, 172, cm, 06/16/19 11:20:00 EST, [...] 07/14/19 Status: Ordered Talbert Elastic barrier strips #572577 Talbert Elastic barrier strips #923804, See Instructions, # 1 units, Refills 11, Tot. Refills 11, Maintenance, To remove appliance at every change Dx Ulcerative Colitis, 01/31/18 11:44:17 EDT, Compound Start Date: 01/31/18 Status: Ordered busPIRone 5 mg oral tablet 5 mg, 1, tablet, By Mouth, 3 times a day, for anxiety, # 90 tablet, Refills 11, Tot. Refills 11, Maintenance, 04/17/19 10:43:00 EST, Route to Pharmacy Electronically, [facility], 172, cm, 04/17/19 9:42:00 EST, Height, 83.7, kg... Start Date: 04/17/19 Stop Date: 04/11/20 Status: Ordered carvedilol 6.25 mg oral tablet 6.25 mg, 1, tablet, By Mouth, 2 times a day, # 60 tablet, Refills 11, Tot. Refills 11, Maintenance,06/16/19 12:25:00 EST, Route to Pharmacy Electronically, [place], [place] -, 172, cm, 06/16/19 11:20:00 EST, [...] 04/17/19 10:43:00 EST, Route to Pharmacy Electronically, [place], [place] -, 172, cm, 04/17/19 9:42:00 EST, Height, 83.7, kg, 04/04/19 0:17:... Start Date: 04/17/19 Stop Date: 04/11/20 Status: Ordered coloplast #69009 pouch coloplast #03740 pouch, See Instructions, # 20 each, Refills 11, Tot. Refills 11, Maintenance, use as needed for ostomy care. 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 Fax to Andre ([facility]), 06/25/19 12:46:00 EST, Compound Start Date: 06/25/19 Status: Ordered coloplast #67213 pouch coloplast #45978 pouch, See Instructions, # 40 each, Refills 11, Tot. Refills 11, Maintenance, use as needed for ostomy care. 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 Fax to Andre ([facility]). disp 40 coloplast pouche... Start Date: 08/05/19 Status: Ordered coloplast 66755 convex 1 piece coloplast 61594 convex 1 piece, See Instructions, # 1 box, Refills 11, Tot. Refills 11, Maintenance, use for ostomy changes Dx- uc/ileostomy, 07/25/18 11:04:40 EDT, Compound Start Date: 07/25/18 Status: Ordered coloplast bags #88586 coloplast bags #60088, See Instructions, # 20 each, Refills 11, Tot. Refills 11, Maintenance, use as needed for ostomy care Dx. ileostomy Z93.2, 07/14/19 10:56:00 EDT, Compound Start Date: 07/14/19 Status: Ordered Compression Stockings See Instructions, # 4 each, Refills 1, Tot. Refills 1, Maintenance, knee high compression hose 20-30mm 4 pair dx bilateral leg edema. R60.0 pls fax to [facility], 05/12/19 14:02:00 EST, Compound Start Date: [...] 11 Refills, Maintenance, 07/29/19 11:40:00 EDT, Tablet, [place], [place] -, 172, cm, 06/25/19 10:26:00 EST, Height, 83.7, kg, 04/04/19 0:17:00 EST, Dry Weight Start Date: 07/29/19 Stop Date: 07/23/20 Status: Ordered hydrOXYzine hydrochloride 10 mg oral tablet 2 tablet = 20 mg, By Mouth, 3 times a day, PRN for itching, # 80 tablet, 0 Refills, Maintenance, 06/25/19 11:37:00 EST, Tablet, [place], [place] -, 172, cm, 06/25/19 10:26:00 EST, [...] 01/02/19 10:34:25 EDT, Route to Pharmacy Electronically, [id number]... Start Date: 01/02/19 Stop Date: 07/01/19 Status: Ordered Januvia 50 mg oral tablet 1 tablet = 50 mg, By Mouth, Daily before breakfast, for diabetes, # 30 tablet, 11 Refills, Maintenance, 04/17/19 10:46:00 EST, Tablet, [facility] [place], [place] -, 172, cm, 04/17/19 9:42:00 EST, Height, 83.7, kg, 04/04/19 0:17:00 EST, Dry Weight Start Date: 04/17/19 Stop Date: 04/11/20 Status: Ordered LifeLine LifeLine, See Instructions, # 1 each, Refills 0, Tot. Refills 0, Maintenance, use to call for help in the home as directed length of need 99 B20, F32.9, F11.2 Pt address/#: [address] [place] [address], [address]. [phone] Critical Signal... Start Date: 01/15/18 Status: Ordered [...] Date: 09/12/18 Status: Ordered No-nsting skin prep #68665680 No-nsting skin prep #43278463, See Instructions, # 1 bottle, Refills 11, Tot. Refills 11, Maintenance, Use as needed for ostomy care Dx: colostomy, 01/31/18 11:44:14 EDT, Compound Start Date: 01/31/18 Status: Ordered omeprazole 20 mg oral enteric coated capsule 1 capsule = 20 mg, By Mouth, Daily, PRN only if needed for acid reflux symptoms, # 30 capsule, 5 Refills, Maintenance, 04/17/19 10:49:00 EST, EC Capsule, [place], [place] -, 172, cm,04/17/19 9:42:00 EST, Height, [...] tablet, 5 Refills, Maintenance, 01/19/20 15:08:00 EDT, [place], [place] - [id number], 172, cm, 11/25/19 11:30:00 EDT, Height, 83.7,kg, [...] 11 Refills, Maintenance, 06/16/19 12:26:00 EST, Tablet, [facility] [place], [place] -, 172, cm, 06/16/19 11:20:00 EST, [...] 01/31/18 Status: Ordered Suboxone 8 mg-2 mg Sublingual Film 1.5 film, Sublingual, Daily, (dose was reduced to prepare for TKR. required by NEOS/anesthesia) dissolve under the tongue, 0 Refills, Maintenance, 02/02/20 10:07:00 EDT, Film Start Date: 02/02/20 Status: Ordered Suboxone 8 mg-2 mg sublingual film 1.5 film, Sublingual, Daily, [id number], MassPATchecked. dissolve under tongue, # 42 film, 0 Refills, Maintenance, 03/03/20 23:05:00 EST, Dry Weight Start Date: 03/03/20 Stop Date: 03/31/20 Status: Ordered traZODone 100 mg oral tablet 1, tablet, By Mouth, Daily at bedtime, PRN, # 30 tablet, Refills 11, Tot. Refills 0, Maintenance, NEEDED FOR insomnia, 07/19/19 17:09:00 EDT, Route to Pharmacy Electronically, [facility], 172, cm, 06/25/19 10:26:00 EST, Height, 83.7, kg, 04/04... Start Date: 07/19/19 Status: Ordered Triumeq oral tablet 1 tablet, By Mouth, Daily, # 30 tablet, 11 Refills, Maintenance, 07/29/19 11:40:00 EDT, Tablet, [place], [place] -, 1 tablet By Mouth Daily,x30 days, 172, cm, 06/25/19 10:26:00 EST, Height, 83.7, kg, 04/04/19 0:17:00 EST, Dry Weight Start Date: 07/29/19 Stop Date: 07/23/20 Status: Ordered Unisolve adhesive remover #300803 Unisolve adhesive remover #976183, See Instructions, # 1 box, Refills 11, Tot. Refills 11, Maintenance, To remove appliance at every change Dx Ulcerative Colitis, 01/31/18 11:44:15 EDT, Compound Start Date: 01/31/18 Status: Ordered Voltaren 1% topical gel See Instructions, PRN pain R knee, apply to painful knees 1-2x/day maximum; wash hands after, # 100Gm, 3 Refills, Maintenance, 06/25/19 11:49:00 EST, Gel, [place], [place] -, apply to painful knees 1-2x/day [...] 0 Refills, Maintenance, 06/25/19 11:36:00 EST, Tablet, [facility], 172, cm, 06/25/19 10:26:00 EST, Height, [...] inguinal pain(Confirmed) Active 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) Active *[phone] Care Partn er-Jesica Jeter(Confirmed) Active traumatic splenectomy [...]
--- OUTSIDE RECORDS SUMMARY | 2022-12-18 06:34 | XMS_ITS | Continuity of Care Document ---
Author Name Unknown Organization [facility] Address [address] [place] [id number]- Care Team Providers Care Product Development Director Name Role Phone Laly FERNANDEZ, Noemi Marshall Primary Care Physician [place] [facility] [id number] Date(s): 05/20/19 - 05/30/[address] [address] [facility] Attending Physician: Jorge A Sutton Admitting Physician: [...] Pneumococcal Poly (PPV23) (oldterm) 10 02/22/07 Gi jurgne Pneumococcal Poly (PPV23) (oldterm) 11/05/87 Given Pneumococcal Vacc (oldterm) 10/28/01 Given 1Admin Note: vis 2Admin Note: VIS 10/03 3Result Comment: [12/07/2016] diluent LOT [id number] EXP 03/29/2018 4Result Comment: [07/18/2016] Liquid component: [id number], exp.: 05/2017 5Admin Note: VIS 12/13/2006 6Admin Note: vis 10/30/11 7Admin Note: vis [id number] 8Admin Note: done at [facility] this past march 9Admin Note: VIS GIVEN 2008- 10Admin Note: vis 11/25/06 Medications acetaminophen 500 mg oral tablet 1 tablet = 500 mg, By Mouth, 2 times a day, PRN for pain, take only if needed, # 60 tablet, 5 Refills, Maintenance, 04/17/19 10:49:00 EST, Tablet, [place], [place] -, 172, cm, 04/17/19 9:42:00 EST, Height, 83.7, kg, 04/04/19 0:17:00 E... Start Date: 04/17/19 Stop Date: 10/14/19 Status: Ordered albuterol CFC free 90 mcg/inh inhalation aerosol See Instructions, # 18 Gm, Refills 5 Tot. Refills 5, INHALE 2 PUFFS BY MOUTH INTO THE lungs 4 (FOUR) TIMES DAILY NEEDED FOR SHORTNESS OF BREATH OR FOR WHEEZING, [facility] Start Date: 01/21/19 Status: Ordered Alcohol Pads See Instructions, # 50 each, Refills 11, Tot. Refills 11, Maintenance, E11.9 check BG daily, 12/05/18 7:49:59 EDT, Compound Start Date: 12/05/18 Status: Ordered amLODIPine 10 mg oral tablet See Instructions, Take 1/2 tablet po daily (change from 10mg daily 05/12/18), # 30 capsule, 2 Refills, Maintenance, 05/12/19 14:01:00 EST, Tablet, [place], [place] -, 172, cm, 05/12/19 13:25:00 EST, [...] 09/12/18 Status: Ordered Talbert Elastic barrier strips #[id number] Talbert Elastic barrier strips #[id number], See Instructions, # 1 units, Refills 11, Tot. Refills 11, Maintenance, To remove appliance at every change Dx Ulcerative Colitis, 01/31/18 11:44:17 EDT, Compound Start Date: 01/31/18 Status: Ordered busPIRone 5 mg oral tablet 5 mg, 1, tablet, By Mouth, 3 times a day, for anxiety, # 90 tablet, Refills 11, Tot. Refills 11, Maintenance, 04/17/19 10:43:00 EST, Route to Pharmacy Electronically, [place], [place] -, 172, cm, 04/17/19 9:42:00 EST, Height, 83.7, kg... Start Date: 04/17/19 Stop Date: 04/11/20 Status: Ordered carvedilol 6.25 mg oral tablet 6.25 mg, 1, tablet, By Mouth, 2 times a day, # 60 tablet, Refills 2, Tot. Refills 2, Maintenance, 05/12/19 14:03:00 EST, Route to Pharmacy Electronically, [place], [place] -, 172, cm, 05/12/19 13:25:00 EST, [...] 04/17/19 10:43:00 EST, Route to Pharmacy Electronically, [place], [place] -, 172, cm, 04/17/19 9:42:00 EST, Height, 83.7, kg, 04/04/19 0:17:... Start Date: 04/17/19 Stop Date: 04/11/20 Status: Ordered coloplast #20268 pouch coloplast #10265 pouch, See Instructions, # 20 each, Refills 11, Tot. Refills 11, Maintenance, use as needed for ostomy care dx + ileostomy, 09/12/18 10:12:37 EDT, Compound Start Date: 09/12/18 Status: Ordered coloplast 28143 convex 1 piece coloplast 53159 convex 1 piece, See Instructions, # 1 box, Refills 11, Tot. Refills 11, Maintenance, use for ostomy changes Dx- uc/ileostomy, 07/25/18 11:04:40 EDT, Compound Start Date: 07/25/18 Status: Ordered Compression Stockings See Instructions, # 4 each, Refills 1, Tot. Refills 1, Maintenance, knee high compression hose 20-30mm 4 pair dx bilateral leg edema. R60.0 pls fax to [facility], 05/12/19 14:02:00 EST, Compound Start [...] 01/02/19 10:34:25 EDT, Route to Pharmacy Electronically, [id number], Kate... Start Date: 01/02/19 Stop Date: 07/01/19 Status: Ordered Januvia 50 mg oral tablet 1 tablet = 50 mg, By Mouth, Daily before breakfast, for diabetes, # 30 tablet, 11 Refills, Maintenance, 04/17/19 10:46:00 EST, Tablet, [facility] [place], [place] -, 172, cm, 04/17/19 9:42:00 EST, Height, 83.7, kg, 04/04/19 0:17:00 EST, Dry Weight Start Date: 04/17/19 Stop Date: 04/11/20 Status: Ordered LifeLine LifeLine, See Instructions, # 1 each, Refills 0, Tot. Refills 0, Maintenance, use to call for help in the home as directed length of need 99 B20, F32.9, F11.2 Pt address/#: [address] [place] [address], [address]. [phone] Critical Signal... Start Date: 01/15/18 Status: Ordered no sting skin prep spray no sting skin prep spray, See Instructions, # 1 bottle, Refills 11, Tot. Refills 11, Maintenance, use as needed for ostomy care dx = illeostomy, 09/12/18 10:12:45 EDT, Compound Start Date: 09/12/18 Status: Ordered No-nsting skin prep #[id number] No-nsting skin prep #[id number], See Instructions, # 1 bottle, Refills 11, Tot. Refills 11, Maintenance, Use as needed for ostomy care Dx: colostomy, 01/31/18 11:44:14 EDT, Compound Start Date: 01/31/18 Status: Ordered omeprazole 20 mg oral enteric coated capsule 1 capsule = 20 mg, By Mouth, Daily, PRN only if needed for acid reflux symptoms, # 30 capsule, 5 Refills, Maintenance, 04/17/19 10:49:00 EST, EC Capsule, [place], [place] -, 172, cm,04/17/19 9:42:00 EST, Height, [...] tablet, 2 Refills, Maintenance, 04/17/19 10:45:00 EST, [place], [place] -, 172, cm, 04/17/19 9:42:00 EST, [...] mg sublingual film 2 each, Sublingual, Daily, [id number] MassPAT reviewed dissolve under the tongue fax to [facility], # 56 each, 0 Refills, Maintenance, 05/20/19 12:48:00 EST Start Date: 05/20/19 Stop Date: 06/17/19 Status: Ordered traZODone 100 mg oral tablet 100 mg, 1, tablet, By Mouth, Daily at bedtime, PRN, # 30 tablet, Refills 11, Tot. Refills 11, Maintenance, Insomnia, 07/11/18 10:25:23 EDT, Route to Pharmacy Electronically, [id number], [place] - Start Date: 07/11/18 Stop Date: 07/06/19 Status: Ordered Triumeq oral tablet 1 tablet, By Mouth, Daily, # 30 tablet, 11 Refills, Maintenance, 07/11/18 10:25:21 EDT, Tablet, 1 tablet By Mouth Daily,x30 days Start Date: 07/11/18 Stop Date: 07/06/19 Status: Ordered Unisolve adhesive remover #[id number] Unisolve adhesive remover #769376, See Instructions, # 1 box, Refills 11, Tot. Refills 11, Maintenance, To remove appliance at every change Dx Ulcerative Colitis, 01/31/18 11:44:15 EDT, Compound Start Date: 01/31/18 Status: Ordered Voltaren 1% topical gel See Instructions, PRN pain R knee, apply to painful knees 1-2x/day maximum; wash hands after, # 100Gm, 3 Refills, Maintenance, 05/01/19 9:33:00 EST, Gel, [place], [place] -, apply to painful knees 1-2x/day [...] inguinal pain(Confirmed) Active 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) Active *[id number]- Care Part ner Jacky Sandhu(Confirmed) Active traumatic [...]
--- OUTSIDE RECORDS SUMMARY | 2022-12-18 06:34 | XMS_ITS | Continuity of Care Document ---
Author Name Unknown Organization [facility] Address [address] [place] [address]- Care Team Providers Care Sales Development Consultant Name Role Phone Noemi Ruffin MD, I Primary Care Physician [phone] [facility] [place] [id number] Date(s): 12/01/19 - 12/31/[address] [address]- [facility] Attending Physician: Jorge A Sutton Admitting Physician: [...] VIS 10/03 3Result Comment: [12/07/2016] diluent LOT [id number] EXP 03/29/2018 4Result Comment: [07/18/2016] Liquid component: [id number], exp.: 05/2017 5Admin Note: VIS 12/13/2006 6Admin Note: vis 10/30/11 7Admin Note: vis [id number] 8Admin Note: done at [facility] this past march 9Admin Note: VIS GIVEN 2008- 10Admin Note: vis 11/25/06 Medications acetaminophen 500 mg oral tablet 1 tablet = 500 mg, By Mouth, 2 times a day, PRN for pain, take only if needed, # 60 tablet, 5 Refills, Maintenance, 04/17/19 10:49:00 EST, Tablet, [facility] [place], [place] -, 172, cm, 04/17/19 9:42:00 EST, Height, 83.7, kg, 04/04/19 0:17:00 E... Start Date: 04/17/19 Stop Date: 10/14/19 Status: Ordered albuterol CFC free 90 mcg/inh inhalation aerosol See Instructions, # 18 Gm, Refills 5 Tot. Refills 5, INHALE 2 PUFFS BY MOUTH INTO THE lungs 4 (FOUR) TIMES DAILY NEEDED FOR SHORTNESS OF BREATH OR FOR WHEEZING, [place], [place] - Start Date: 01/21/19 Status: Ordered Alcohol Pads See Instructions, # 50 each, Refills 11, Tot. Refills 11, Maintenance, E11.9 check BG daily, 12/05/18 7:49:59 EDT, Compound Start Date: 12/05/18 Status: Ordered amLODIPine 5 mg oral tablet 5 mg, 1, tablet, By Mouth, Daily, # 30 tablet, Refills 11, Tot. Refills 11, Maintenance, 06/16/19 12:27:00 EST, Route to Pharmacy Electronically, [place], [place] -, 172, cm, 06/16/19 11:20:00 EST, [...] 07/14/19 Status: Ordered Talbert Elastic barrier strips #[id number] Talbert Elastic barrier strips #450754, See Instructions, # 1 units, Refills 11, Tot. Refills 11, Maintenance, To remove appliance at every change Dx Ulcerative Colitis, 01/31/18 11:44:17 EDT, Compound Start Date: 01/31/18 Status: Ordered busPIRone 5 mg oral tablet 5 mg, 1, tablet, By Mouth, 3 times a day, for anxiety, # 90 tablet, Refills 11, Tot. Refills 11, Maintenance, 04/17/19 10:43:00 EST, Route to Pharmacy Electronically, [facility], 172, cm, 04/17/19 9:42:00 EST, Height, 83.7, kg... Start Date: 04/17/19 Stop Date: 04/11/20 Status: Ordered carvedilol 6.25 mg oral tablet 6.25 mg, 1, tablet, By Mouth, 2 times a day, # 60 tablet, Refills 11, Tot. Refills 11, Maintenance,06/16/19 12:25:00 EST, Route to Pharmacy Electronically, [facility], 172, cm, 06/16/19 11:20:00 EST, Height, 83.7, [...] 04/17/19 10:43:00 EST, Route to Pharmacy Electronically, [facility], 172, cm, 04/17/19 9:42:00 EST, Height, 83.7, kg, 04/04/19 0:17:... Start Date: 04/17/19 Stop Date: 04/11/20 Status: Ordered Citrucel 500 mg oral tablet 2 tablet = 1,000 mg, By Mouth, Daily, for 60 days, with plenty of water, # 120 tablet, 1 Refills, Acute 02/12/20 16:54:00 EDT, 10/15/19 16:54:00 EDT, [facility], 172, cm, 06/25/19 10:26:00 EST, Height, 83.7, kg, 04/04/19 0:17:... Start Date: 10/15/19 Stop Date: 02/12/20 Status: Ordered coloplast #24383 pouch coloplast #90553 pouch, See Instructions, # 20 each, Refills 11, Tot. Refills 11, Maintenance, use as needed for ostomy care. 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 Fax to [facility] ([facility]), 06/25/19 12:46:00 EST, Compound Start Date: 06/25/19 Status: Ordered coloplast #33714 pouch coloplast #50354 pouch, See Instructions, # 40 each, Refills 11, Tot. Refills 11, Maintenance, use as needed for ostomy care. 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 Fax to [facility]). disp 40 coloplast pouche... Start Date: 08/05/19 Status: Ordered coloplast 13329 convex 1 piece coloplast 60930 convex 1 piece, See Instructions, # 1 box, Refills 11, Tot. Refills 11, Maintenance, use for ostomy changes Dx- uc/ileostomy, 07/25/18 11:04:40 EDT, Compound Start Date: 07/25/18 Status: Ordered coloplast bags #31004 coloplast bags #45737, See Instructions, # 20 each, Refills 11, Tot. Refills 11, Maintenance, use as needed for ostomy care Dx. ileostomy Z93.2, 07/14/19 10:56:00 EDT, Compound Start Date: 07/14/19 Status: Ordered Compression Stockings See Instructions, # 4 each, Refills 1, Tot. Refills 1, Maintenance, knee high compression hose 20-30mm 4 pair dx bilateral leg edema. R60.0 pls fax to [facility], 05/12/19 14:02:00 EST, Compound Start Date: [...] 11 Refills, Maintenance, 07/29/19 11:40:00 EDT, Tablet, [place], [place] -, 172, cm, 06/25/19 10:26:00 EST, Height, 83.7, kg, 04/04/19 0:17:00 EST, Dry Weight Start Date: 07/29/19 Stop Date: 07/23/20 Status: Ordered hydrOXYzine hydrochloride 10 mg oral tablet 2 tablet = 20 mg, By Mouth, 3 times a day, PRN for itching, # 80 tablet, 0 Refills, Maintenance, 06/25/19 11:37:00 EST, Tablet, [place], [place] -, 172, cm, 06/25/19 10:26:00 EST, [...] 01/02/19 10:34:25 EDT, Route to Pharmacy Electronically, [id number], Kate... Start Date: 01/02/19 Stop Date: 07/01/19 Status: Ordered Januvia 50 mg oral tablet 1 tablet = 50 mg, By Mouth, Daily before breakfast, for diabetes, # 30 tablet, 11 Refills, Maintenance, 04/17/19 10:46:00 EST, Tablet, [place], [place] -, 172, cm, 04/17/19 9:42:00 EST, Height, 83.7, kg, 04/04/19 0:17:00 EST, Dry Weight Start Date: 04/17/19 Stop Date: 04/11/20 Status: Ordered LifeLine LifeLine, See Instructions, # 1 each, Refills 0, Tot. Refills 0, Maintenance, use to call for help in the home as directed length of need 99 B20, F32.9, F11.2 Pt address/#: [address] [place] [address], [address]. [phone] Critical Signal... Start Date: 01/15/18 Status: Ordered [...] Date: 09/12/18 Status: Ordered No-nsting skin prep #[id number] No-nsting skin prep #32834309, See Instructions, # 1 bottle, Refills 11, Tot. Refills 11, Maintenance, Use as needed for ostomy care Dx: colostomy, 01/31/18 11:44:14 EDT, Compound Start Date: 01/31/18 Status: Ordered omeprazole 20 mg oral enteric coated capsule 1 capsule = 20 mg, By Mouth, Daily, PRN only if needed for acid reflux symptoms, # 30 capsule, 5 Refills, Maintenance, 04/17/19 10:49:00 EST, EC Capsule, [facility], 172, cm,04/17/19 9:42:00 EST, Height, 83.7, [...] tablet, 5 Refills, Maintenance, 07/19/19 13:20:00 EDT, [place], [place] -, 172, cm, 06/25/19 10:26:00 EST, [...] 11 Refills, Maintenance, 06/16/19 12:26:00 EST, Tablet, [place], [place] -, 172, cm, 06/16/19 11:20:00 EST, [...] mg sublingual film 3 each, Sublingual, Daily, [id number], MassPATchecked. dissolve under tongue (ok to divide dose 3x/dif helps w/ pain), # 84 film, 0 Refills, Maintenance, 11/25/19 11:54:00 EDT, [place], [place] - [id number], 3 each Sublingual Daily,x... Start Date: 11/25/19 Stop Date: 12/23/19 Status: Ordered traZODone 100 mg oral tablet 1, tablet, By Mouth, Daily at bedtime, PRN, # 30 tablet, Refills 11, Tot. Refills 0, Maintenance, NEEDED FOR insomnia, 07/19/19 17:09:00 EDT, Route to Pharmacy Electronically, [facility], 172, cm, 06/25/19 10:26:00 EST, Height, 83.7, kg, 04/04... Start Date: 07/19/19 Status: Ordered Triumeq oral tablet 1 tablet, By Mouth, Daily, # 30 tablet, 11 Refills, Maintenance, 07/29/19 11:40:00 EDT, Tablet, [place], [place] -, 1 tablet By Mouth Daily,x30 days, 172, cm, 06/25/19 10:26:00 EST, Height, 83.7, kg, 04/04/19 0:17:00 EST, Dry Weight Start Date: 07/29/19 Stop Date: 07/23/20 Status: Ordered Unisolve adhesive remover #[id number] Unisolve adhesive remover #327428, See Instructions, # 1 box, Refills 11, Tot. Refills 11, Maintenance, To remove appliance at every change Dx Ulcerative Colitis, 01/31/18 11:44:15 EDT, Compound Start Date: 01/31/18 Status: Ordered Voltaren 1% topical gel See Instructions, PRN pain R knee, apply to painful knees 1-2x/day maximum; wash hands after, # 100Gm, 3 Refills, Maintenance, 06/25/19 11:49:00 EST, Gel, [place], [place] -, apply to painful knees 1-2x/day [...] 0 Refills, Maintenance, 06/25/19 11:36:00 EST, Tablet, [facility] [place], [place] -, 172, cm, 06/25/19 10:26:00 EST, [...] inguinal pain(Confirmed) Active 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) Active *[phone]- [facility] Part ner Jacky Phoebe(Confirmed) Active traumatic splenectomy [...]
--- OUTSIDE RECORDS SUMMARY | 2022-12-18 06:34 | XMS_ITS | Continuity of Care Document ---
Author Name Unknown Organization [facility] Address [address] [place] [id number]- Care Team Providers Care Lead Recreation Assistant Name Role Phone Laly FERNANDEZ, Noemi Marshall Primary Care Physician [phone] Encounter [facility] [id number] Date(s): 10/06/19 - 11/05/[address] [address]- [facility] Attending Physician: Jorge A Sutton Admitting Physician: [...] VIS 10/03 3Result Comment: [12/07/2016] diluent LOT [id number] EXP 03/29/2018 4Result Comment: [07/18/2016] Liquid component: [id number], exp.: 05/2017 5Admin Note: VIS 12/13/2006 6Admin Note: vis 10/30/11 7Admin Note: vis [id number] 8Admin Note: done at [facility] this past march 9Admin Note: VIS GIVEN 2008- 10Admin Note: vis 11/25/06 Medications acetaminophen 500 mg oral tablet 1 tablet = 500 mg, By Mouth, 2 times a day, PRN for pain, take only if needed, # 60 tablet, 5 Refills, Maintenance, 04/17/19 10:49:00 EST, Tablet, [facility] [place], [place] -, 172, cm, 04/17/19 9:42:00 EST, Height, 83.7, kg, 04/04/19 0:17:00 E... Start Date: 04/17/19 Stop Date: 10/14/19 Status: Ordered albuterol CFC free 90 mcg/inh inhalation aerosol See Instructions, # 18 Gm, Refills 5 Tot. Refills 5, INHALE 2 PUFFS BY MOUTH INTO THE lungs 4 (FOUR) TIMES DAILY NEEDED FOR SHORTNESS OF BREATH OR FOR WHEEZING, [place], [place] - Start Date: 01/21/19 Status: Ordered Alcohol Pads See Instructions, # 50 each, Refills 11, Tot. Refills 11, Maintenance, E11.9 check BG daily, 12/05/18 7:49:59 EDT, Compound Start Date: 12/05/18 Status: Ordered amLODIPine 5 mg oral tablet 5 mg, 1, tablet, By Mouth, Daily, # 30 tablet, Refills 11, Tot. Refills 11, Maintenance, 06/16/19 12:27:00 EST, Route to Pharmacy Electronically, [place], [place] -, 172, cm, 06/16/19 11:20:00 EST, [...] 07/14/19 Status: Ordered Talbert Elastic barrier strips #049142 Talbert Elastic barrier strips #086331, See Instructions, # 1 units, Refills 11, Tot. Refills 11, Maintenance, To remove appliance at every change Dx Ulcerative Colitis, 01/31/18 11:44:17 EDT, Compound Start Date: 01/31/18 Status: Ordered busPIRone 5 mg oral tablet 5 mg, 1, tablet, By Mouth, 3 times a day, for anxiety, # 90 tablet, Refills 11, Tot. Refills 11, Maintenance, 04/17/19 10:43:00 EST, Route to Pharmacy Electronically, [place], [place] -, 172, cm, 04/17/19 9:42:00 EST, Height, 83.7, kg... Start Date: 04/17/19 Stop Date: 04/11/20 Status: Ordered carvedilol 6.25 mg oral tablet 6.25 mg, 1, tablet, By Mouth, 2 times a day, # 60 tablet, Refills 11, Tot. Refills 11, Maintenance,06/16/19 12:25:00 EST, Route to Pharmacy Electronically, [facility], 172, cm, 06/16/19 11:20:00 EST, Height, [...] 04/17/19 10:43:00 EST, Route to Pharmacy Electronically, [place], [place] -, 172, cm, 04/17/19 9:42:00 EST, Height, 83.7, kg, 04/04/19 0:17:... Start Date: 04/17/19 Stop Date: 04/11/20 Status: Ordered Citrucel 500 mg oral tablet 2 tablet = 1,000 mg, By Mouth, Daily, for 60 days, with plenty of water, # 120 tablet, 1 Refills, Acute 02/12/20 16:54:00 EDT, 10/15/19 16:54:00 EDT, [facility], 172, cm, 06/25/19 10:26:00 EST, Height, 83.7, kg, 04/04/19 0:17:... Start Date: 10/15/19 Stop Date: 02/12/20 Status: Ordered coloplast #58793 pouch coloplast #64792 pouch, See Instructions, # 20 each, Refills 11, Tot. Refills 11, Maintenance, use as needed for ostomy care. 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 Fax to Andre ([facility]), 06/25/19 12:46:00 EST, Compound Start Date: 06/25/19 Status: Ordered coloplast #93414 pouch coloplast #49112 pouch, See Instructions, # 40 each, Refills 11, Tot. Refills 11, Maintenance, use as needed for ostomy care. 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 Fax to Andre ([facility]). disp 40 coloplast pouche... Start Date: 08/05/19 Status: Ordered coloplast 59935 convex 1 piece coloplast 35323 convex 1 piece, See Instructions, # 1 box, Refills 11, Tot. Refills 11, Maintenance, use for ostomy changes Dx- uc/ileostomy, 07/25/18 11:04:40 EDT, Compound Start Date: 07/25/18 Status: Ordered coloplast bags #30661 coloplast bags #30737, See Instructions, # 20 each, Refills 11, Tot. Refills 11, Maintenance, use as needed for ostomy care Dx. ileostomy Z93.2, 07/14/19 10:56:00 EDT, Compound Start Date: 07/14/19 Status: Ordered Compression Stockings See Instructions, # 4 each, Refills 1, Tot. Refills 1, Maintenance, knee high compression hose 20-30mm 4 pair dx bilateral leg edema. R60.0 pls fax to [facility], 05/12/19 14:02:00 EST, Compound Start Date: [...] 11 Refills, Maintenance, 07/29/19 11:40:00 EDT, Tablet, [facility] [place], [place] -, 172, cm, 06/25/19 10:26:00 EST, Height, 83.7, kg, 04/04/19 0:17:00 EST, Dry Weight Start Date: 07/29/19 Stop Date: 07/23/20 Status: Ordered hydrOXYzine hydrochloride 10 mg oral tablet 2 tablet = 20 mg, By Mouth, 3 times a day, PRN for itching, # 80 tablet, 0 Refills, Maintenance, 06/25/19 11:37:00 EST, Tablet, [place], [place] -, 172, cm, 06/25/19 10:26:00 EST, [...] 01/02/19 10:34:25 EDT, Route to Pharmacy Electronically, [id number], Kate... Start Date: 01/02/19 Stop Date: 07/01/19 Status: Ordered Januvia 50 mg oral tablet 1 tablet = 50 mg, By Mouth, Daily before breakfast, for diabetes, # 30 tablet, 11 Refills, Maintenance, 04/17/19 10:46:00 EST, Tablet, [place], [place] -, 172, cm, 04/17/19 9:42:00 EST, Height, 83.7, kg, 04/04/19 0:17:00 EST, Dry Weight Start Date: 04/17/19 Stop Date: 04/11/20 Status: Ordered LifeLine LifeLine, See Instructions, # 1 each, Refills 0, Tot. Refills 0, Maintenance, use to call for help in the home as directed length of need 99 B20, F32.9, F11.2 Pt address/#: [address] [place] [address], [address]. [phone] Critical Signal... Start Date: 01/15/18 Status: Ordered loperamide 2 mg oral capsule 2 mg, 1, capsule, By Mouth, 2 times a day, for 30 days, # 60 capsule, Refills 0, Tot. Refills 0, Acute 11/14/19 16:56:00 EDT, 10/15/19 16:56:00 EDT, Route to Pharmacy Electronically, [place], [place] -, 172, cm, 06/25/19 10:26:00 EST,... Start Date: 10/15/19 Stop Date: 11/14/19 Status: Ordered no sting skin prep spray [...] Date: 09/12/18 Status: Ordered No-nsting skin prep #[id number] No-nsting skin prep #[id number], See Instructions, # 1 bottle, Refills 11, Tot. Refills 11, Maintenance, Use as needed for ostomy care Dx: colostomy, 01/31/18 11:44:14 EDT, Compound Start Date: 01/31/18 Status: Ordered omeprazole 20 mg oral enteric coated capsule 1 capsule = 20 mg, By Mouth, Daily, PRN only if needed for acid reflux symptoms, # 30 capsule, 5 Refills, Maintenance, 04/17/19 10:49:00 EST, EC Capsule, [facility] - [place], [place] -, 172, cm,04/17/19 9:42:00 EST, Height, [...] tablet, 5 Refills, Maintenance, 07/19/19 13:20:00 EDT, [place], [place] -, 172, cm, 06/25/19 10:26:00 EST, [...] 11 Refills, Maintenance, 06/16/19 12:26:00 EST, Tablet, [place], [place] -, 172, cm, 06/16/19 11:20:00 EST, [...] Ordered Suboxone 8 mg-2 mg sublingual film 2.5 each, Sublingual, Daily, [id number], MassPATchecked. dissolve under tongue (ok to divide dose 3x/d if helps w/ pain) (note increase in dose), # 70 film, 0 Refills, Maintenance, 10/29/19 15:21:00 EDT, Dry Weight Start Date: 10/29/19 Stop Date: 11/26/19 Status: Ordered traZODone 100 mg oral tablet 1, tablet, By Mouth, Daily at bedtime, PRN, # 30 tablet, Refills 11, Tot. Refills 0, Maintenance, NEEDED FOR insomnia, 07/19/19 17:09:00 EDT, Route to Pharmacy Electronically, [facility], 172, cm, 06/25/19 10:26:00 EST, Height, 83.7, kg, 04/04... Start Date: 07/19/19 Status: Ordered Triumeq oral tablet 1 tablet, By Mouth, Daily, # 30 tablet, 11 Refills, Maintenance, 07/29/19 11:40:00 EDT, Tablet, [facility] [place], [place] -, 1 tablet By Mouth Daily,x30 days, 172, cm, 06/25/19 10:26:00 EST, Height, 83.7, kg, 04/04/19 0:17:00 EST, Dry Weight Start Date: 07/29/19 Stop Date: 07/23/20 Status: Ordered Unisolve adhesive remover #217312 Unisolve adhesive remover #257754, See Instructions, # 1 box, Refills 11, Tot. Refills 11, Maintenance, To remove appliance at every change Dx Ulcerative Colitis, 01/31/18 11:44:15 EDT, Compound Start Date: 01/31/18 Status: Ordered Voltaren 1% topical gel See Instructions, PRN pain R knee, apply to painful knees 1-2x/day maximum; wash hands after, # 100Gm, 3 Refills, Maintenance, 06/25/19 11:49:00 EST, Gel, [place], [place] -, apply to painful knees 1-2x/day [...] 0 Refills, Maintenance, 06/25/19 11:36:00 EST, Tablet, [place], [place] -, 172, cm, 06/25/19 10:26:00 EST, [...] inguinal pain(Confirmed) Active 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) Active *[phone]- [facility] 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
--- OUTSIDE RECORDS SUMMARY | 2022-12-18 06:34 | XMS_ITS | Continuity of Care Document ---
Author Name Unknown Organization [facility] Address [address] [place] [address]- Care Team Providers Care Automotive Lot Attendant Name Role Phone Noemi Ruffin MD, I Primary Care Physician [phone] Encounter [facility] Date(s): 02/04/20 - 03/05/[address] [address]- Allergies, Adverse Reactions, Alerts Substance Reaction Severity [...] VIS 10/03 3Result Comment: [12/07/2016] diluent LOT [id number] EXP 03/29/2018 4Result Comment: [07/18/2016] Liquid component: [id number], exp.: 05/2017 5Admin Note: VIS 12/13/2006 6Admin Note: vis 10/30/11 7Admin Note: vis [id number] 8Admin Note: done at [facility] this past march 9Admin Note: VIS GIVEN 2008- 10Admin Note: vis 11/25/06 Medications acetaminophen 500 mg oral tablet 1 tablet = 500 mg, By Mouth, 2 times a day, PRN for pain, take only if needed, # 60 tablet, 5 Refills, Maintenance, 04/17/19 10:49:00 EST, Tablet, [place], [place] -, 172, cm, 04/17/19 9:42:00 EST, Height, 83.7, kg, 04/04/19 0:17:00 E... Start Date: 04/17/19 Stop Date: 10/14/19 Status: Ordered albuterol CFC free 90 mcg/inh inhalation aerosol See Instructions, # 18 Gm, Refills 5 Tot. Refills 5, INHALE 2 PUFFS BY MOUTH INTO THE lungs 4 (FOUR) TIMES DAILY NEEDED FOR SHORTNESS OF BREATH OR FOR WHEEZING, [place], [place] - Start Date: 01/21/19 Status: Ordered Alcohol Pads See Instructions, # 50 each, Refills 11, Tot. Refills 11, Maintenance, E11.9 check BG daily, 12/05/18 7:49:59 EDT, Compound Start Date: 12/05/18 Status: Ordered amLODIPine 5 mg oral tablet 5 mg, 1, tablet, By Mouth, Daily, # 30 tablet, Refills 11, Tot. Refills 11, Maintenance, 06/16/19 12:27:00 EST, Route to Pharmacy Electronically, [facility] [place], [place] -, 172, cm, 06/16/19 11:20:00 EST, [...] 07/14/19 Status: Ordered Talbert Elastic barrier strips #099798 Talbert Elastic barrier strips #[id number], See Instructions, # 1 units, Refills 11, Tot. Refills 11, Maintenance, To remove appliance at every change Dx Ulcerative Colitis, 01/31/18 11:44:17 EDT, Compound Start Date: 01/31/18 Status: Ordered busPIRone 5 mg oral tablet 5 mg, 1, tablet, By Mouth, 3 times a day, for anxiety, # 90 tablet, Refills 11, Tot. Refills 11, Maintenance, 12/19/19 10:43:00 EST, Route to Pharmacy Electronically, [facility], 172, cm, 04/17/19 9:42:00 EST, Height, 83.7, kg... Start Date: 04/17/19 Stop Date: 04/11/20 Status: Ordered carvedilol 6.25 mg oral tablet 6.25 mg, 1, tablet, By Mouth, 2 times a day, # 60 tablet, Refills 11, Tot. Refills 11, Maintenance,06/16/19 12:25:00 EST, Route to Pharmacy Electronically, [place], [place] -, 172, cm, 06/16/19 11:20:00 EST, [...] 04/17/19 10:43:00 EST, Route to Pharmacy Electronically, [place], [place] -, 172, cm, 04/17/19 9:42:00 EST, Height, 83.7, kg, 04/04/19 0:17:... Start Date: 04/17/19 Stop Date: 04/11/20 Status: Ordered coloplast #77782 pouch coloplast #01977 pouch, See Instructions, # 20 each, Refills 11, Tot. Refills 11, Maintenance, use as needed for ostomy care. 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 Fax to Andre ([facility]), 06/25/19 12:46:00 EST, Compound Start Date: 06/25/19 Status: Ordered coloplast #88434 pouch coloplast #77679 pouch, See Instructions, # 40 each, Refills 11, Tot. Refills 11, Maintenance, use as needed for ostomy care. 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 Fax to Andre ([facility]). disp 40 coloplast pouche... Start Date: 08/05/19 Status: Ordered coloplast 20892 convex 1 piece coloplast 80521 convex 1 piece, See Instructions, # 1 box, Refills 11, Tot. Refills 11, Maintenance, use for ostomy changes Dx- uc/ileostomy, 07/25/18 11:04:40 EDT, Compound Start Date: 07/25/18 Status: Ordered coloplast bags #88302 coloplast bags #76206, See Instructions, # 20 each, Refills 11, Tot. Refills 11, Maintenance, use as needed for ostomy care Dx. ileostomy Z93.2, 07/14/19 10:56:00 EDT, Compound Start Date: 07/14/19 Status: Ordered Compression Stockings See Instructions, # 4 each, Refills 1, Tot. Refills 1, Maintenance, knee high compression hose 20-30mm 4 pair dx bilateral leg edema. R60.0 pls fax to [facility], 05/12/19 14:02:00 EST, Compound Start Date: 05/12/19 [...] 11 Refills, Maintenance, 07/29/19 11:40:00 EDT, Tablet, [place], [place] -, 172, cm, 06/25/19 10:26:00 EST, Height, 83.7, kg, 04/04/19 0:17:00 EST, Dry Weight Start Date: 07/29/19 Stop Date: 07/23/20 Status: Ordered hydrOXYzine hydrochloride 10 mg oral tablet 2 tablet = 20 mg, By Mouth, 3 times a day, PRN for itching, # 80 tablet, 0 Refills, Maintenance, 06/25/19 11:37:00 EST, Tablet, [place], [place] -, 172, cm, 06/25/19 10:26:00 EST, [...] 01/02/19 10:34:25 EDT, Route to Pharmacy Electronically, [id number], Kate... Start Date: 01/02/19 Stop Date: 07/01/19 Status: Ordered Januvia 50 mg oral tablet 1 tablet = 50 mg, By Mouth, Daily before breakfast, for diabetes, # 30 tablet, 11 Refills, Maintenance, 04/17/19 10:46:00 EST, Tablet, [facility] [place], [place] -, 172, cm, 04/17/19 9:42:00 EST, Height, 83.7, kg, 04/04/19 0:17:00 EST, Dry Weight Start Date: 04/17/19 Stop Date: 04/11/20 Status: Ordered LifeLine LifeLine, See Instructions, # 1 each, Refills 0, Tot. Refills 0, Maintenance, use to call for help in the home as directed length of need 99 B20, F32.9, F11.2 Pt address/#: [address] [place] [address], [address]. [phone] Critical Signal... Start Date: 01/15/18 Status: Ordered [...] Date: 09/12/18 Status: Ordered No-nsting skin prep #[id number] No-nsting skin prep #78240686, See Instructions, # 1 bottle, Refills 11, Tot. Refills 11, Maintenance, Use as needed for ostomy care Dx: colostomy, 01/31/18 11:44:14 EDT, Compound Start Date: 01/31/18 Status: Ordered omeprazole 20 mg oral enteric coated capsule 1 capsule = 20 mg, By Mouth, Daily, PRN only if needed for acid reflux symptoms, # 30 capsule, 5 Refills, Maintenance, 04/17/19 10:49:00 EST, EC Capsule, [place], [place] -, 172, cm,04/17/19 9:42:00 EST, Height, [...] tablet, 5 Refills, Maintenance, 01/19/20 15:08:00 EDT, [place], [place] - [id number], 172, cm, 11/25/19 11:30:00 EDT, Height, 83.7,kg, [...] 11 Refills, Maintenance, 06/16/19 12:26:00 EST, Tablet, [facility] [place], [place] -, 172, cm, 06/16/19 11:20:00 EST, [...] mg sublingual film 1.5 film, Sublingual, Daily, [id number], MassPATchecked. dissolve under tongue, # 42 film, 0 Refills, Maintenance, 03/03/20 23:05:00 EST, Dry Weight Start Date: 03/03/20 Stop Date: 03/31/20 Status: Ordered traZODone 100 mg oral tablet 1, tablet, By Mouth, Daily at bedtime, PRN, # 30 tablet, Refills 11, Tot. Refills 0, Maintenance, NEEDED FOR insomnia, 07/19/19 17:09:00 EDT, Route to Pharmacy Electronically, [facility], 172, cm, 06/25/19 10:26:00 EST, Height, 83.7, kg, 04/04... Start Date: 07/19/19 Status: Ordered Triumeq oral tablet 1 tablet, By Mouth, Daily, # 30 tablet, 11 Refills, Maintenance, 07/29/19 11:40:00 EDT, Tablet, [facility], 1 tablet By Mouth Daily,x30 days, 172, cm, 06/25/19 10:26:00 EST, Height, 83.7, kg, 04/04/19 0:17:00 EST, Dry Weight Start Date: 07/29/19 Stop Date: 07/23/20 Status: Ordered Unisolve adhesive remover #920826 Unisolve adhesive remover #166787, See Instructions, # 1 box, Refills 11, Tot. Refills 11, Maintenance, To remove appliance at every change Dx Ulcerative Colitis, 01/31/18 11:44:15 EDT, Compound Start Date: 01/31/18 Status: Ordered Voltaren 1% topical gel See Instructions, PRN pain R knee, apply to painful knees 1-2x/day maximum; wash hands after, # 100Gm, 3 Refills, Maintenance, 06/25/19 11:49:00 EST, Gel, [facility], apply to painful knees 1-2x/day maximum; wash [...] 0 Refills, Maintenance, 06/25/19 11:36:00 EST, Tablet, [facility], 172, cm, 06/25/19 10:26:00 EST, Height, [...] inguinal pain(Confirmed) Active 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) Active *[phone] Care Partn er-Jesica Jeter(Confirmed) Active traumatic splenectomy [...]
--- OUTSIDE RECORDS SUMMARY | 2022-12-18 06:34 | XMS_ITS | Continuity of Care Document ---
Author Name Unknown Organization [facility] Address [address] [place] [address]- Care Team Providers Care Filling Machine Tender Name Role Phone Laly FERNANDEZ, Noemi Marshall Primary Care Physician Encounter [facility] Date(s): 06/15/22 - 07/15/[address] [address]- Allergies, Adverse Reactions, Alerts Substance Reaction Severity Status ampicillin Active aspirin BLEEDING Persistent Severe Active Pollen NASAL CONGESTION SNEEZING Persistent Mode rate Active NSAIDs bleeding Persistent Severe Active Immunizations Given and Recorded Vaccine Date Status Refusal Reason [id number] 12y+ bivalent booster vax 02/02/22 Recorded SARS-CoV-2 [...] VIS 10/03 4Result Comment: [12/07/2016] diluent LOT [id number] EXP 03/29/2018 5Result Comment: [07/18/2016] Liquid component: [id number], exp.: 05/2017 6Admin Note: VIS 12/13/2006 7Admin Note: vis 10/30/11 8Admin Note: vis [id number] 9Admin Note: done at [facility] this past march 10Admin Note: VIS GIVEN 2008- 11Admin Note: vis 11/25/06 Medications acetaminophen 500 mg oral tablet 1 tablet, By Mouth, 4 times a day, PRN NEEDED FOR PAIN, TAKE ONLY IF needed, # 100 tablet, 5 Refills, Maintenance, 04/14/22 15:58:00 EST, [place], [place] - [id number], 167, cm, 04/10/22 11:48:00 EST, Height, 89.9, kg, 05/25/21 10:... Start Date: 04/14/22 Status: Ordered Albuterol (Eqv-ProAir HFA) 90 mcg/inh inhalation aerosol 2 puffs, Inhalation, 4 times a day, PRN NEEDED FOR SHORTNESS OF BREATH OR FOR WHEEZING, # 25.5 Gm, 5 Refills, [facility], 4, INHALE 2 PUFFS BY MOUTH [...] tablet, 5 Refills, Maintenance, 06/26/22 22:22:00 EST, [facility], 167, cm, 04/10/22 11:48:00 EST, [...] 09/09/21 Status: Ordered Talbert Elastic barrier strips #[id number] Talbert Elastic barrier strips #[id number], See Instructions, # 120 each, Refills 11, [...] 01/26/22 18:01:00 EDT, Route to Pharmacy Electronically, [facility] - [place], [place] - [id number], 167, cm, 08/08/21 11:18:00 E... Start Date: 01/26/22 Stop Date: 07/25/22 Status: Ordered carvedilol 12.5 mg oral tablet 1, tablet, By Mouth, 2 times a day, # 180 tablet, Refills 1, Maintenance, 06/26/22 22:23:00 EST, Route to Pharmacy Electronically, [facility], 167, cm, 04/10/22 11:48:00 EST, Height, 89.9, kg, 05/25/21 10:21:00 EST, Dry Weight Start Date: 06/26/22 Status: Ordered cetirizine 10 mg oral tablet 1 tablet, By Mouth, Daily, PRN NEEDED FOR FOR ALLERGY, # 90 tablet, 1 Refills, 02/23/22 14:13:00EDT, [facility] - [place], [place] - [id number], 167, cm, 08/08/21 11:18:00 EDT, Height, 89.9, kg, 05/25/21 10:21:00 EST, Dry Weight Start Date: 02/23/22 Status: Ordered coloplast #06608 pouch coloplast #99285 pouch, See Instructions, # 20 each, Refills 11, Tot. Refills 11, Maintenance, use as needed for ostomy care. 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 Fax to Andre ([facility]), 06/25/19 12:46:00 EST, Compound Start Date: 06/25/19 Status: Ordered coloplast #62372 pouch coloplast #21413 pouch, See Instructions, # 40 each, Refills 11, Tot. Refills 11, Maintenance, use as needed for ostomy care. 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 Fax to Andre ([facility]). disp 40 coloplast pouche... Start Date: 08/05/19 Status: Ordered coloplast 84625 convex 1 piece coloplast 45588 convex 1 piece, See Instructions, # 1 box, Refills 11, Tot. Refills 11, Maintenance, use for ostomy changes Dx- uc/ileostomy, 07/25/18 11:04:40 EDT, Compound Start Date: 07/25/18 Status: Ordered coloplast bags #25029 coloplast bags #98051, See Instructions, # 20 each, Refills 11, Tot. Refills 11, Maintenance, use as needed for ostomy care Dx. ileostomy Z93.2 fax to [facility], 09/09/21 10:48:00 EDT, Compound Start Date: 09/09/21 Status: Ordered Compression Stockings See Instructions, # 4 each, Refills 1, Tot. Refills 1, Maintenance, knee high compression hose 20-30mm 4 pair dx bilateral leg edema. R60.0 pls fax [facility], 05/12/19 14:02:00 EST, Compound Start Date: [...] Gm, 5 Refills, Maintenance, 06/27/22 16:38:00 EST, [facility], 30, APPLY TO PAINFUL KNEES 1 TO 2 TIMES A DAY maximum. WASH HANDS AFTER USE, 167, cm,... Start Date: 06/27/22 Status: Ordered Dovato 50 mg-300 mg oral tablet 1 tablet, By Mouth, Daily, *pharmacy: please change triumeq to dovato with the next monthly medication delivery., # 30 tablet, 11 Refills, Maintenance, 04/21/22 14:15:00 EST, Tablet, [facility] - [place], [place] - [id number], Partial fill upon pa... Start Date: 04/21/22 [...] tablet, 2 Refills, Maintenance, 05/27/22 4:01:00 EST, [facility], 167, cm, 04/10/22 11:48:00 EST, Height, [...] 11 Refills, Maintenance, 07/07/22 11:45:00 EST, Tablet, [facility] - [place], [place] - [id number], Partial fill upon patient request if the prescription is for a schedule II opioid drug., 167,... Start Date: 07/07/22 Status: Ordered LifeLine LifeLine, See Instructions, # 1 each, Refills 0, Tot. Refills 0, Maintenance, use to call for help in the home as directed length of need 99 B20, F32.9, F11.2 Pt address/#: [address] [place] [address], [address]. [phone] Critical Signal... Start Date: 01/15/18 Status: Ordered Lokelma 10 g oral powder for reconstitution See Instructions, DISSOLVE THE CONTENT OF 1 PACKET IN WATER AND DRINK ONCE DAILY. DO NOT TAKE WITHIN 2 HOURS OF other MEDICATIONS, # 30 pack/packet, 5 Refills, Maintenance, 04/25/22 16:05:00 EST, [facility], 167, cm, 04/10/22 11:48:00 EST, Height... [...] Date: 09/12/18 Status: Ordered No-nsting skin prep #[id number] No-nsting skin prep #12508863, See Instructions, # 1 bottle, Refills 11, Tot. Refills 11, Maintenance, Use as needed for ostomy care Dx: colostomy, 01/31/18 11:44:14 EDT, Compound Start Date: 01/31/18 Status: Ordered omeprazole 40 mg oral enteric coated capsule 1 capsule, By Mouth, 2 times a day, # 60 capsule, 1 Refills, Maintenance, 05/27/22 4:01:00 EST, [facility], 167, cm, 04/10/22 11:48:00 EST, Height, [...] tablet, 1 Refills, Maintenance, 06/26/22 22:24:00 EST, [facility], 167, cm, 04/10/22 11:48:00 EST, Height, [...] sublingual film 3 film, Sublingual, Daily, Laly [id number] MassPATchecked. dissolve under tongue, # 84 film, 0 Refills, Maintenance, 07/14/22 9:48:00 EDT, [facility], [facility] [id number], increase in dose from 16 mg to 24 mg daily, 3 film Subling... Start Date: 07/14/22 Stop Date: 08/11/22 Status: Ordered traZODone 100 mg oral tablet 1, tablet, By Mouth, Daily at bedtime, PRN, # 90 tablet, Refills 1, Maintenance, NEEDED FOR insomnia, 06/27/22 16:38:00 EST, Route to Pharmacy Electronically, [facility], 167, cm, 04/10/22 11:48:00 EST, Height, 89.9, kg, 05/25/21 10:21:00 EST,... Start Date: 06/27/22 Status: Ordered Trulicity Pen 0.75 mg/0.5 mL subcutaneous solution 0.5 mL = 0.75 mg, Subcutaneous Injection, Every week, rotate injection sites, # 2 mL, 11 Refills, Maintenance, 07/07/22 11:45:00 EST, Solution, [facility], [place] - [id number], Partialfill upon patient request if the prescription is fo... Start Date: 07/07/22 Status: Ordered Unisolve adhesive remover #096722 Unisolve adhesive remover #265878, See Instructions, # 1 box, Refills 11, [...] Confirmed Active Obese class II Confirmed Active *[id number] Experimental Display Builder Nitin Hancock Confirmed Active SLAC (scapholunate advanced [...] Name: Maru Grey NP Position: [facility] PCO Associate Professional Member Role: Primary Care Nurse Address: Address: [address] [place] [address]- Name: Arianne George RN Position: [facility] RN Member Role: Primary Care Nurse Name: Radha Ewing RN Position: [facility] RN Member Role: Primary Care Nurse Name: Macey Trevino RN [facility] RN Member Role: Primary Care Nurse Name: Nesha Leigh RN Position: [facility] SN RN Member Role: Primary Care Nurse Name: Alanna Ashby RN Position: [facility] RN Member Role: Primary Care Nurse Name: Loren Jimenez RN Position: [facility] RN Member Role: Primary Care Nurse Name: Starr Poon RN Position: [facility] RN Member Role: Primary Care Nurse Name: Vilma Perez RN Position: [facility] W/ Jonny Member Role: Primary Care Nurse Name: John Noguera RN Position: [facility] RN Member Role: Primary Care Nurse Name: Noemi Ruffin MD, I Position: [facility] Primary Care Physician Member Role: PCP Address: Address: [address] [place] [address], [place] [address]- [place] Name: Dunia Arechiga RN Position: [facility] RN Member Role: Primary Care Nurse Name: Kamilah Baron Position: [facility] TA Member Role: Primary Care Nurse Name: Ro Lopez RN Position: [facility] RN Member Role: Primary Care Nurse Name: Kosta Braun III, RN Position: [facility] RN Member Role: Primary Care Nurse Name: Lauryn Jiménez RN Position: [facility] Hospital [employer] Correspondent Member Role: Primary Care Nurse Name: Jorge Ching RN Position: [facility] RN Member Role: Primary Care Nurse Name: Valarie Srivastava RN Position: [facility] RN Member Role: Primary Care Nurse Name: Monica Jacobs RN Position: [facility] RN Member Role: Primary Care Nurse Name: Johanna Castaneda RN Position: [facility] RN Member Role: Primary Care Nurse Address: Address: [address] [place] [address]- Name: Luisa Zavaleta RN Position: [facility] AMB Nurse Member Role: Primary Care Nurse Name: Yulissa Mora RN Position: [facility] SN RN Member Role: Primary Care Nurse Name: Francine Abrams RN Position: [facility] RN Member Role: Primary Care Nurse Name: Shea Marinelli RN Position: [facility] RN Member Role: Primary Care Nurse Care Team Related Persons Name: PEGGY GARDNER Address: home [address] [place] [address] Name: JLUIS WHITE STAGE NAME Name: ADIA WINTERS
--- OUTSIDE RECORDS SUMMARY | 2022-12-18 06:34 | XMS_ITS | Continuity of Care Document ---
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 Name Role Phone Noemi Ruffin MD, I Primary Care Physician [phone] Encounter [facility] Date(s): 06/13/21 - 08/04/[address] [address]- Attending Physician: Noemi Ruffin MD, I Admitting [...] VIS 10/03 4Result Comment: [12/07/2016] diluent LOT [id number] EXP 03/29/2018 5Result Comment: [07/18/2016] Liquid component: [id number], exp.: 05/2017 6Admin Note: VIS 12/13/2006 7Admin Note: vis 10/30/11 8Admin Note: vis [id number] 9Admin Note: done at [facility] this past march 10Admin Note: VIS GIVEN 2008- 11Admin Note: vis 11/25/06 Medications acetaminophen 500 mg oral tablet 1 tablet, By Mouth, 2 times a day, PRN NEEDED FOR PAIN, TAKE ONLY IF needed, # 60 tablet, 5 Refills, [facility], 172, cm, 01/18/21 12:02:00 EDT, Height, 89.7, kg, 07/29/20 7:42:00 EDT, Dry Weight Start Date: 01/27/21 Status: Ordered Albuterol (Eqv-ProAir HFA) 90 mcg/inh inhalation aerosol 2 puffs, Inhalation, 4 times a day, PRN NEEDED FOR SHORTNESS OF BREATH OR FOR WHEEZING, # 25.5 Gm, 1 Refills, Maintenance, 02/21/21 9:52:00 EDT, [facility] [id number], 2 puffs Inhalation 4 times a day,PRN: [...] EDT, Route to Pharmacy Electronically, [facility] [id number], Partial fill upon patient request if the [...] asneeded for ostomy care dx = ileostomy, 05/16/19 10:12:48 EDT, Compound Start Date: 09/12/18 Status: Ordered brava strips brava strips, See Instructions, # 40 each, Refills 11, Tot. Refills 11, Maintenance, use as needed for ostomy care Dx ileostomy Z 93.2, 07/14/19 10:55:00 EDT, Compound Start Date: 07/14/19 Status: Ordered Talbert Elastic barrier strips #163391 Talbert Elastic barrier strips #042420, See Instructions, # 1 units, Refills 11, Tot. Refills 11, Maintenance, To remove appliance at every change Dx Ulcerative Colitis, 01/31/18 11:44:17 EDT, Compound Start Date: 01/31/18 Status: Ordered busPIRone 5 mg oral tablet 1, tablet, By Mouth, 3 times a day, FOR ANXIETY., # 90 tablet, Refills 1, Route to Pharmacy Electronically, [facility], 167, cm, 05/26/21 7:07:00 EST, Height, 89.9, kg, 05/25/21 10:21:00 EST, Dry Weight Start Date: 06/22/21 Status: Ordered carvedilol 12.5 mg oral tablet 12.5 mg, 1, tablet, By Mouth, 2 times a day, increase in dose, # 60 tablet, Refills 11, Tot. Refills 11, Maintenance, 10/12/20 11:48:00 EDT, Route to Pharmacy Electronically, [facility] [id number], Partial fill upon patient re... Start Date: 10/12/20 Stop Date: 10/07/21 Status: Ordered cetirizine 10 mg oral tablet 1 tablet, By Mouth, Daily, PRN NEEDED for allergy, # 90 tablet, 1 Refills, Maintenance, 04/21/2112:42:00 EST, [facility] [id number], 172, cm, 02/22/21 10:36:00 EDT, Height, 89.7, kg, 07/29/20 7:42:00 EDT, Dry Weight Start Date: 04/21/21 Status: Ordered coloplast #70269 pouch coloplast #75720 pouch, See Instructions, # 20 each, Refills 11, Tot. Refills 11, Maintenance, use as needed for ostomy care. 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 Fax to [facility]), 06/25/19 12:46:00 EST, Compound Start Date: 06/25/19 Status: Ordered coloplast #31893 pouch coloplast #88630 pouch, See Instructions, # 40 each, Refills 11, Tot. Refills 11, Maintenance, use as needed for ostomy care. 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 Fax to Andre ([facility]). disp 40 coloplast pouche... Start Date: 08/05/19 Status: Ordered coloplast 59460 convex 1 piece coloplast 47948 convex 1 piece, See Instructions, # 1 box, Refills 11, Tot. Refills 11, Maintenance, use for ostomy changes Dx- uc/ileostomy, 07/25/18 11:04:40 EDT, Compound Start Date: 07/25/18 Status: Ordered coloplast bags #46803 coloplast bags #92684, See Instructions, # 20 each, Refills 11, Tot. Refills 11, Maintenance, use as needed for ostomy care Dx. ileostomy Z93.2, 07/14/19 10:56:00 EDT, Compound Start Date: 07/14/19 Status: Ordered Compression Stockings See Instructions, # 4 each, Refills 1, Tot. Refills 1, Maintenance, knee high compression hose 20-30mm 4 pair dx bilateral leg edema. R60.0 pls fax to [facility], 05/12/19 14:02:00 EST, Compound Start Date: [...] AFTER USE, # 100 Gm, 5 Refills, [facility], 180, APPLY TO PAINFUL KNEES 1 [...] a day, # 60 tablet, 11 Refills, [facility], 167, cm, 05/26/21 7:07:00 EST, Height, 89.9, kg, 05/25/21 10:21:00 EST, Dry Weight Start Date: 07/25/21 Status: Ordered hydrochlorothiazide 12.5 mg oral tablet 1 tablet = 12.5 mg, By Mouth, Daily, # 30 tablet, 11 Refills, Maintenance, 01/04/21 11:11:00 EDT, Tablet, [facility] - [place], [place] - [id number], Partial fill upon patient request if the [...] FOR diabetes., # 30 tablet, 11 Refills, [facility], 167, cm, 05/26/21 7:07:00 EST, Height, 89.9, kg, 05/25/21 10:21:00 EST, Dry Weight Start Date: 07/25/21 Status: Ordered LifeLine LifeLine, See Instructions, # 1 each, Refills 0, Tot. Refills 0, Maintenance, use to call for help in the home as directed length of need 99 B20, F32.9, F11.2 Pt address/#: [address] [place] [address], [address] [phone] Critical Signal... Start Date: 01/15/18 Status: Ordered [...] Date: 09/12/18 Status: Ordered No-nsting skin prep #84349401 No-nsting skin prep #12488063, See Instructions, # 1 bottle, Refills 11, Tot. Refills 11, Maintenance, Use as needed for ostomy care Dx: colostomy, 01/31/18 11:44:14 EDT, Compound Start Date: 01/31/18 Status: Ordered omeprazole 40 mg oral enteric coated capsule 1 capsule, By Mouth, 2 times a day, # 60 capsule, 1 Refills, [facility], 167, cm, 05/26/21 7:07:00 [...] tablet, 1 Refills, Maintenance, 07/25/21 12:03:00 EDT, [facility] - [place], [place] - [id number], 167, cm, 05/26/21 7:07:00 EST, Height, 89.9, [...] Mouth, Daily, # 45 tablet, 11 Refills, [facility], 167, cm, 05/26/21 7:07:00 [...] mg sublingual film 3 film, Sublingual, Daily, [id number] MassPATchecked. dissolve under tongue Due 07/12/2021, # 84 film, 0 Refills, Maintenance, 07/14/21 11:59:00 EDT, [facility] [id number], increase in dose from 16 mg to 24 mg daily, 3 angélica... Start Date: 07/14/21 Stop Date: 08/11/21 Status: Ordered traZODone 100 mg oral tablet 1, tablet, By Mouth, Daily at bedtime, PRN, # 90 tablet, Refills 1, Tot. Refills 1, Maintenance, ASNEEDED FOR insomnia, 07/25/21 12:04:00 EDT, Route to Pharmacy Electronically, [facility], [place] - [id number], 167, cm, 05/26/21 7:07:00... Start Date: 07/25/21 Status: Ordered Triumeq oral tablet 1 tablet, By Mouth, Daily, # 30 tablet, 11 Refills, [facility], 30, TAKE ONE TABLET BY MOUTH DAILY, 167, cm, 05/26/21 7:07:00 EST, Height, 89.9, kg, 05/25/21 10:21:00 EST, Dry Weight Start Date: 07/25/21 Status: Ordered Unisolve adhesive remover #433583 Unisolve adhesive remover #609520, See Instructions, # 1 box, Refills 11, [...] in obese(Confirmed) Active Obese class I(Confirmed) Active *[id number] Care Partn er-Jesica Jeter(Confirmed) Active traumatic splenectomy [...]
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
--- OUTSIDE RECORDS SUMMARY | 2022-12-18 06:34 | XMS_ITS | Continuity of Care Document ---
Author Name Unknown Organization [facility] Address [address] [place] [address]- Care Team Providers Care Gyro Compass Tester Name Role Phone Mora Gooden MD Primary Care Physician Encounter [facility] [id number] Date(s): 08/01/22 - 08/31/22 [facility]/[address] [address]- Attending Physician: Jorge A Sutton Admitting Physician: AdmJorge A decker Referring Physician: Admtr, Ar8 Allergies, Adverse Reactions, Alerts Substance Reaction Severity Status ampicillin Active aspirin BLEEDING Persistent Severe Active Pollen NASAL CONGESTION SNEEZING Persistent Mode rate Active NSAIDs bleeding Persistent Severe Active Immunizations Given and Recorded Vaccine Date Status Refusal Reason [id number] 12y+ bivalent booster vax 02/02/22 Recorded SARS-CoV-2 [...] VIS 10/03 4Result Comment: [12/07/2016] diluent LOT [id number] EXP 03/29/2018 5Result Comment: [07/18/2016] Liquid component: [id number], exp.: 05/2017 6Admin Note: VIS 12/13/2006 7Admin Note: vis 10/30/11 8Admin Note: vis [id number] 9Admin Note: done at [facility] this past march 10Admin Note: VIS GIVEN 2008- 11Admin Note: vis 11/25/06 Medications acetaminophen 500 mg oral tablet 1 tablet, By Mouth, 4 times a day, PRN NEEDED FOR PAIN, TAKE ONLY IF needed, # 100 tablet, 5 Refills, Maintenance, 12/16/22 15:58:00 EST, [facility] [place], [place] - [id number], 167, cm, 04/10/22 11:48:00 EST, Height, 89.9, kg, 05/25/21 10:... Start Date: 04/14/22 Status: Ordered Albuterol (Eqv-ProAir HFA) 90 mcg/inh inhalation aerosol 2 puffs, Inhalation, 4 times a day, PRN NEEDED FOR SHORTNESS OF BREATH OR FOR WHEEZING, # 25.5 Gm, 5 Refills, [facility], 4, INHALE 2 PUFFS BY [...] 09/09/21 Status: Ordered Talbert Elastic barrier strips #382455 Talbert Elastic barrier strips #115973, See Instructions, # 120 each, Refills 11, Tot. Refills 11, Maintenance, Dx: K51; Z93. 3 sig: use 4 strips a day with ostomy bag. disp: 4 bags of 30 strips = 120 strips per month. Fax to [facility] [phone], 04... Start Date: 08/21/22 Status: Ordered busPIRone 5 mg oral tablet 1, tablet, By Mouth, 3 times a day, PRN, # 270 tablet, Refills 1, Maintenance, NEEDED FOR ANXIETY, 07/24/22 17:21:00 EDT, Route to Pharmacy Electronically, [facility], 167, cm, 04/10/22 11:48:00 EST, Height, 89.9, kg, 05/25/21 10:21:00 EST, [facility]. Start Date: 07/24/22 Status: Ordered carvedilol 12.5 mg oral tablet 1, tablet, By Mouth, 2 times a day, # 180 tablet, Refills 1, Maintenance, 06/26/22 22:23:00 EST, Route to Pharmacy Electronically, [facility], 167, cm, 04/10/22 11:48:00 EST, Height, 89.9, kg, 05/25/21 10:21:00 EST, Dry Weight Start Date: 06/26/22 Status: Ordered cetirizine 10 mg oral tablet See Instructions, TAKE 1 TABLET BY MOUTH ONCE DAILY NEEDED for allergy, # 90 tablet, 1 Refills, Maintenance, 08/24/22 11:40:00 EDT, [facility], 167, cm, 08/01/22 10:08:00 EDT, Height, 89.9, kg, 05/25/21 10:21:00 EST, Dry Weight Start Date: 08/24/22 Status: Ordered coloplast #16735 pouch coloplast #74787 pouch, See Instructions, # 20 each, Refills 11, Tot. Refills 11, Maintenance, use as needed for ostomy care. 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 Fax to Andre ([facility]), 06/25/19 12:46:00 EST, Compound Start Date: 06/25/19 Status: Ordered coloplast #80647 pouch coloplast #22484 pouch, See Instructions, # 40 each, Refills 11, Tot. Refills 11, Maintenance, use as needed for ostomy care. 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 Fax to Andre ([facility]). disp 40 coloplast pouche... Start Date: 08/05/19 Status: Ordered coloplast 54623 convex 1 piece coloplast 27444 convex 1 piece, See Instructions, # 1 box, Refills 11, Tot. Refills 11, Maintenance, use for ostomy changes Dx- uc/ileostomy, 07/25/18 11:04:40 EDT, Compound Start Date: 07/25/18 Status: Ordered coloplast bags #63539 coloplast bags #80060, See Instructions, # 20 each, Refills 11, [...] leg edema. R60.0 pls fax to [facility] 05/12/19 14:02:00 EST, Compound Start Date: 05/12/19 [...] Gm, 5 Refills, Maintenance, 06/27/22 16:38:00 EST, [facility], 30, APPLY TO PAINFUL KNEES 1 TO 2 TIMES A DAY maximum. WASH HANDS AFTER USE, 167, cm,... Start Date: 06/27/22 Status: Ordered Dovato 50 mg-300 mg oral tablet 1 tablet, By Mouth, Daily, *pharmacy: please change triumeq to dovato with the next monthly medication delivery., # 30 tablet, 11 Refills, Maintenance, 04/21/22 14:15:00 EST, Tablet, [facility] - [place], [place] - [id number], Partial fill upon pa... Start Date: 04/21/22 [...] tablet, 11 Refills, Maintenance, 06/27/22 16:38:00 EST, [facility], 167, cm, 04/10/22 11:48:00 EST, Height, [...] tablet, 5 Refills, Maintenance, 08/24/22 11:41:00 EDT, [place], [place] - [id number], 167, cm, 08/01/22 10:08:00 EDT, Height, 89.9, [...] 11 Refills, Maintenance, 07/07/22 11:45:00 EST, Tablet, [facility] - [place], [place] - [id number], Partial fill upon patient request if the prescription is for a schedule II opioid drug., 167,... Start Date: 07/07/22 Status: Ordered LifeLine LifeLine, See Instructions, # 1 each, Refills 0, Tot. Refills 0, Maintenance, use to call for help in the home as directed length of need 99 B20, F32.9, F11.2 Pt address/#: [address] [place] [address], [address] [phone] Critical Signal... Start Date: 01/15/18 Status: Ordered [...] Date: 09/12/18 Status: Ordered No-nsting skin prep #[id number] No-nsting skin prep #41104895, See Instructions, # 1 bottle, Refills 11, Tot. Refills 11, Maintenance, Use as needed for ostomy care Dx: colostomy, 01/31/18 11:44:14 EDT, Compound Start Date: 01/31/18 Status: Ordered omeprazole 40 mg oral enteric coated capsule 1 capsule, By Mouth, 2 times a day, # 60 capsule, 1 Refills, Maintenance, 07/24/22 17:23:00 EDT, [facility], 167, cm, 04/10/22 11:48:00 EST, [...] Gm, 5 Refills, Maintenance, 08/24/22 15:20:00 EDT, [facility], 30, DISSOLVE 17GM IN WATER [...] 84film, 0 Refills, Maintenance, 08/08/22 21:41:00 EDT, [place], [place] - [id number], 3 film Sublingual Daily,x28 days,Instr:pls fill... Start Date: 08/08/22 Stop Date: 09/05/22 Status: Ordered traZODone 100 mg oral tablet 1, tablet, By Mouth, Daily at bedtime, PRN, # 90 tablet, Refills 1, Maintenance, NEEDED FOR insomnia, 06/27/22 16:38:00 EST, Route to Pharmacy Electronically, [facility], 167, cm, 04/10/22 11:48:00 EST, Height, 89.9, kg, 05/25/21 10:21:00 EST,... Start Date: 06/27/22 Status: Ordered Trulicity Pen 0.75 mg/0.5 mL subcutaneous solution 0.5 mL = 0.75 mg, Subcutaneous Injection, Every week, rotate injection sites, # 2 mL, 11 Refills, Maintenance, 07/07/22 11:45:00 EST, Solution, [facility] [phone], Partialfill upon patient request if the prescription is fo... Start Date: 07/07/22 Status: Ordered Unisolve adhesive remover #715844 Unisolve adhesive remover #952174, See Instructions, # 1 box, Refills 11, [...] Confirmed Active NIDDM in obese Confirmed Active *[id number] County Agent Nitin Hancock Confirmed Active SL[facility] (scapholunate advanced [...] Team Personnel Name: Maru Grey NP Position: [facility]O Associate Professional Member Role: Primary Care Nurse Address: Address: [address] [place] [address] [place] [address]- Name: Arianne George RN Position: [facility] RN Member Role: Primary Care Nurse Name: Radha Ewing RN Position: [facility] RN Member Role: Primary Care Nurse Name: Macey Trevino RN Position: [facility] RN Member Role: Primary Care Nurse Name: Nesha Leigh RN Position: [facility] SN RN Member Role: Primary Care Nurse Name: Alanna Ashby RN Position: [facility] RN Member Role: Primary Care Nurse Name: Loren Jimenez RN Position: [facility] RN Member Role: Primary Care Nurse Name: Starr Poon RN Position: [facility] SN RN Member Role: Primary Care Nurse Name: Vilma Perez RN Position: [facility] MR W/ Merge Member Role: Primary Care Nurse Name: John Noguera RN Position: [facility] RN Member Role: Primary Care Nurse Name: Dunia Arechiga RN Position: [facility] RN Member Role: Primary Care Nurse Name: Kamilah Baron Position: [facility] PCO TA Member Role: Primary Care Nurse Name: Ro Lopez RN Position: [facility] RN Member Role: Primary Care Nurse Name: Kosta Braun III, RN Position: [facility] RN Member Role: Primary Care Nurse Name: Lauryn Jiménez RN Position: [facility] Laborer Syrup Machine Member Role: Primary Care Nurse Name: Jorge Ching RN Position: [facility] RN Member Role: Primary Care Nurse Name: Valarie Srivastava RN Position: [facility] RN Member Role: Primary Care Nurse Name: Monica Jacobs RN Position: [facility] RN Member Role: Primary Care Nurse Name: Johanna Castaneda RN Position: [facility] RN Member Role: Primary Care Nurse Address: Address: [address] [place] [address]- Name: Luisa Zavaleta RN Position: [facility] AMB Nurse Member Role: Primary Care Nurse Name: Yulissa Mora RN Position: [facility] SN RN Member Role: Primary Care Nurse Name: Francine Abrams RN Position: [facility] RN Member Role: Primary Care Nurse Name: Shea Marinelli RN Position: [facility] RN Member Role: Primary Care Nurse Name: Mora Gooden MD Position: [facility] Primary Care Physician Member Role: PCP Address: Address: [address] [place] [address]- Care Team Related Persons Name: PEGGY GARDNER Address: home [address] [place] [address] Name: JLUIS WHITE STAGE NAME Name: ADIA WINTERS
--- OUTSIDE RECORDS SUMMARY | 2022-12-18 06:34 | XMS_ITS | Continuity of Care Document ---
Author Name Unknown Organization [facility] Address [address] [place] [address]- Care Team Providers Care Pelt Inspector Name Role Phone Noemi Ruffin MD, I Primary Care Physician Encounter [facility] Date(s): 05/21/20 - 06/20/[address] [address]- Allergies, Adverse Reactions, Alerts Substance Reaction Severity [...] VIS 10/03 3Result Comment: [12/07/2016] diluent LOT [id number] EXP 03/29/2018 4Result Comment: [07/18/2016] Liquid component: [id number], exp.: 05/2017 5Admin Note: VIS 12/13/2006 6Admin Note: vis 10/30/11 7Admin Note: vis [id number] 8Admin Note: done at [facility] this past march 9Admin Note: VIS GIVEN 2008- 10Admin Note: vis 11/25/06 Medications acetaminophen 500 mg oral tablet 1 tablet = 500 mg, By Mouth, 2 times a day, PRN for pain, take only if needed, # 60 tablet, 5 Refills, Maintenance, 04/17/19 10:49:00 EST, Tablet, [facility] - [place], [place] -, 172, cm, 04/17/19 9:42:00 EST, Height, 83.7, kg, 04/04/19 0:17:00 E... Start Date: 04/17/19 Stop Date: 10/14/19 Status: Ordered albuterol CFC free 90 mcg/inh inhalation aerosol See Instructions, # 18 Gm, Refills 5 Tot. Refills 5, INHALE 2 PUFFS BY MOUTH INTO THE lungs 4 (FOUR) TIMES DAILY NEEDED FOR SHORTNESS OF BREATH OR FOR WHEEZING, [place], [place] - Start Date: 01/21/19 Status: Ordered Alcohol Pads See Instructions, # 50 each, Refills 11, Tot. Refills 11, Maintenance, E11.9 check BG daily, 12/05/18 7:49:59 EDT, Compound Start Date: 12/05/18 Status: Ordered amLODIPine 5 mg oral tablet 5 mg, 1, tablet, By Mouth, Daily at bedtime, # 30 tablet, Refills 11, Tot. Refills 11, Maintenance,06/16/19 12:27:00 EST, Route to Pharmacy Electronically, [place], [place] -, 172, cm, 06/16/19 11:20:00 EST, [...] 07/14/19 Status: Ordered Talbert Elastic barrier strips #901620 Talbert Elastic barrier strips #701673, See Instructions, # 1 units, Refills 11, [...] 04/19/20 11:34:00 EST, Route to Pharmacy Electronically, [place], [place]- [id number], 173, cm, 04/12/20 11:01:00 EST, Heigh... Start Date: 04/19/20 Stop Date: 11/15/20 Status: Ordered carvedilol 6.25 mg oral tablet 6.25 mg, 1, tablet, By Mouth, 2 times a day, # 60 tablet, Refills 11, Tot. Refills 11, Maintenance,06/16/19 12:25:00 EST, Route to Pharmacy Electronically, [place], [place] -, 172, cm, 06/16/19 11:20:00 EST, Height, 83.7, kg, ... Start Date: 06/16/19 Stop Date: 06/10/20 Status: Ordered cetirizine 10 mg oral tablet 1 tablet = 10 mg, By Mouth, Daily, PRN if needed for allergy symptoms, do not blister pack, # 90 tablet, 1 Refills, Maintenance, 04/19/20 11:34:00 EST, Tablet, [place], [place] - [id number], 173, cm, 04/12/20 11:01:00 EST, Height, 86.... [...] 5 Refills, Maintenance, 05/21/20 12:39:00 EST, Granule, [facility] - [place], [place] - [id number], Partial fill u... Start Date: 05/21/20 Stop Date: 11/17/20 Status: Ordered coloplast #41804 pouch coloplast #05956 pouch, See Instructions, # 20 each, Refills 11, Tot. Refills 11, Maintenance, use as needed for ostomy care. 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 Fax to Andre ([facility]), 06/25/19 12:46:00 EST, Compound Start Date: 06/25/19 Status: Ordered coloplast #62367 pouch coloplast #39339 pouch, See Instructions, # 40 each, Refills 11, Tot. Refills 11, Maintenance, use as needed for ostomy care. 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 Fax to Andre ([facility]). disp 40 coloplast pouche... Start Date: 08/05/19 Status: Ordered coloplast 19096 convex 1 piece coloplast 99467 convex 1 piece, See Instructions, # 1 box, Refills 11, Tot. Refills 11, Maintenance, use for ostomy changes Dx- uc/ileostomy, 07/25/18 11:04:40 EDT, Compound Start Date: 07/25/18 Status: Ordered coloplast bags #77514 coloplast bags #76965, See Instructions, # 20 each, Refills 11, Tot. Refills 11, Maintenance, use as needed for ostomy care Dx. ileostomy Z93.2, 07/14/19 10:56:00 EDT, Compound Start Date: 07/14/19 Status: Ordered Compression Stockings See Instructions, # 4 each, Refills 1, Tot. Refills 1, Maintenance, knee high compression hose 20-30mm 4 pair dx bilateral leg edema. R60.0 pls fax to [facility], 05/12/19 14:02:00 EST, Compound Start [...] 11 Refills, Maintenance, 07/29/19 11:40:00 EDT, Tablet, [place], [place] -, 172, cm, 06/25/19 10:26:00 EST, Height, 83.7, kg, 04/04/19 0:17:00 EST, Dry Weight Start Date: 07/29/19 Stop Date: 07/23/20 Status: Ordered Januvia 50 mg oral tablet 1 tablet = 50 mg, By Mouth, Daily before breakfast, for diabetes, # 90 tablet, 0 Refills, Maintenance, 04/19/20 11:35:00 EST, Tablet, [place], [place] - [id number], 173, cm, 04/12/2011:01:00 EST, Height, 86.8, kg, 04/07/20 8:07:00 ES... Start Date: 04/19/20 Stop Date: 04/14/21 Status: Ordered LifeLine LifeLine, See Instructions, # 1 each, Refills 0, Tot. Refills 0, Maintenance, use to call for help in the home as directed length of need 99 B20, F32.9, F11.2 Pt address/#: [address] [place] [address], [address]. [phone] Critical Signal... Start Date: 01/15/18 Status: Ordered [...] Date: 09/12/18 Status: Ordered No-nsting skin prep #[id number] No-nsting skin prep #[id number], See Instructions, # 1 bottle, Refills 11, Tot. Refills 11, Maintenance, Use as needed for ostomy care Dx: colostomy, 01/31/18 11:44:14 EDT, Compound Start Date: 01/31/18 Status: Ordered omeprazole 20 mg oral enteric coated capsule 1 capsule = 20 mg, By Mouth, Daily, PRN only if needed for acid reflux symptoms, # 90 capsule, 0 Refills, Maintenance, 04/19/20 11:34:00 EST, EC Capsule, [place], [place] - [id number], 173, cm, 04/12/20 11:01:00 EST, Height, 86.8, [...] 06/16/19 12:26:00 EST, Tablet, [facility] - [place], [place] -, 172, cm, 06/16/19 11:20:00 EST, [...] mg sublingual film 2 film, Sublingual, Daily, [id number], MassPATchecked. dissolve under tongue, # 56 film, 0 Refills, Maintenance, 05/24/20 18:26:00 EST, [place], [place] - [id number], 2 film Sublingual Daily,x28 days,Instr:[id number], MassGavinoed. d... Start Date: 05/24/20 Stop Date: 06/21/20 Status: Ordered traZODone 100 mg oral tablet 1, tablet, By Mouth, Daily at bedtime, PRN, # 30 tablet, Refills 11, Tot. Refills 0, Maintenance, NEEDED FOR insomnia, 07/19/19 17:09:00 EDT, Route to Pharmacy Electronically, [facility], 172, cm, 06/25/19 10:26:00 EST, Height, 83.7, kg, 04/04... Start Date: 07/19/19 Status: Ordered Triumeq oral tablet 1 tablet, By Mouth, Daily, # 30 tablet, 11 Refills, Maintenance, 07/29/19 11:40:00 EDT, Tablet, [place], [place] -, 1 tablet By Mouth Daily,x30 days, 172, cm, 06/25/19 10:26:00 EST, Height, 83.7, kg, 04/04/19 0:17:00 EST, Dry Weight Start Date: 07/29/19 Stop Date: 07/23/20 Status: Ordered Unisolve adhesive remover #726182 Unisolve adhesive remover #456925, See Instructions, # 1 box, Refills 11, Tot. Refills 11, Maintenance, To remove appliance at every change Dx Ulcerative Colitis, 01/31/18 11:44:15 EDT, Compound Start Date: 01/31/18 Status: Ordered warfarin 1 mg oral tablet See Instructions, Take 1-10 tablets By Mouth Daily as directed by [facility], # 150 tablet, 0 Refills, Maintenance, 04/12/20 8:51:00 EST, Tablet, [facility], Partial fill upon patient requestif [...] inguinal pain(Confirmed) Active 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) Active *[phone] Care Partn krysten-Jesica Jeter(Confirmed) Active traumatic splenectomy [...]
--- OUTSIDE RECORDS SUMMARY | 2022-12-18 06:34 | XMS_ITS | Continuity of Care Document ---
Author Name Unknown Organization [facility] Address [address] [place] [address]- Care Team Providers Care Principal Technical Architect Name Role Phone Noemi Ruffin MD, I Primary Care Physician Encounter [facility] Date(s): 02/28/21 - 03/30/[address] [address]- Allergies, Adverse Reactions, Alerts Substance Reaction Severity [...] VIS 10/03 4Result Comment: [12/07/2016] diluent LOT [id number] EXP 03/29/2018 5Result Comment: [07/18/2016] Liquid component: [id number], exp.: 05/2017 6Admin Note: VIS 12/13/2006 7Admin Note: vis 10/30/11 8Admin Note: vis [id number] 9Admin Note: done at [facility] this past march 10Admin Note: VIS GIVEN 2008- 11Admin Note: vis 11/25/06 Medications acetaminophen 500 mg oral tablet 1 tablet, By Mouth, 2 times a day, PRN NEEDED FOR PAIN, TAKE ONLY IF needed, # 60 tablet, 5 Refills, [facility], 172, cm, 01/18/21 12:02:00 EDT, Height, 89.7, kg, 07/29/20 7:42:00 EDT, Dry Weight Start Date: 01/27/21 Status: Ordered Albuterol (Eqv-ProAir HFA) 90 mcg/inh inhalation aerosol 2 puffs, Inhalation, 4 times a day, PRN NEEDED FOR SHORTNESS OF BREATH OR FOR WHEEZING, # 25.5 Gm, 1 Refills, Maintenance, 02/21/21 9:52:00 EDT, [place], [place] - [id number], 2 puffs Inhalation 4 times a day,PRN: [...] 5 Refills, Maintenance, 11/05/20 12:56:00 EDT, Tablet, [place], [place] - [id number], Partial fill uponpatient request if the prescription is for a schedu... Start Date: 11/05/20 Status: Ordered apixaban 2.5 mg oral tablet 1 tablet = 2.5 mg, By Mouth, 2 times a day, # 60 tablet, 0 Refills, Maintenance, 07/30/20 9:38:00 EDT, Tablet, [facility] 3, Partial fill upon patient request [...] 07/14/19 Status: Ordered Talbert Elastic barrier strips #519583 Talbert Elastic barrier strips #418984, See Instructions, # 1 units, Refills 11, Tot. Refills 11, Maintenance, To remove appliance at every change Dx Ulcerative Colitis, 01/31/18 11:44:17 EDT, Compound Start Date: 01/31/18 Status: Ordered busPIRone 5 mg oral tablet 1, tablet, By Mouth, 3 times a day, FOR ANXIETY., # 270 tablet, Refills 1, Tot. Refills 0, Maintenance, 10/26/20 10:29:00 EDT, Route to Pharmacy Electronically, [facility], 172, cm, 07/30/20 16:38:00 EDT, Height, 89.7, kg, 07/29/20 7:42:00 EDT, D... Start Date: 10/26/20 Status: Ordered carvedilol 12.5 mg oral tablet 12.5 mg, 1, tablet, By Mouth, 2 times a day, increase in dose, # 60 tablet, Refills 11, Tot. Refills 11, Maintenance, 10/12/20 11:48:00 EDT, Route to Pharmacy Electronically, [place], [place] - [id number], Partial fill upon patient re... Start Date: 10/12/20 Stop Date: 10/07/21 Status: Ordered cetirizine 10 mg oral tablet 1 tablet, By Mouth, Daily, PRN NEEDED for allergy, # 90 tablet, 1 Refills, Maintenance, 10/26/2109:30:00 EDT, [facility], 172, cm, 07/30/20 16:38:00 EDT, Height, 89.7, kg, 07/29/20 7:42:00 EDT, Dry Weight Start Date: 10/26/20 Status: Ordered Colace Capsule 100 mg, 1, capsule, By Mouth, 2 times a day, Hold for loose stool, Refills 0, Maintenance, 208:50:00 EST, Partial fill upon patient request if the prescription is for a schedule II opioid drug. Start Date: 04/12/20 Status: Ordered coloplast #09140 pouch coloplast #72231 pouch, See Instructions, # 20 each, Refills 11, Tot. Refills 11, Maintenance, use as needed for ostomy care. 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 Fax to Andre ([facility]), 06/25/19 12:46:00 EST, Compound Start Date: 06/25/19 Status: Ordered coloplast #37182 pouch coloplast #02435 pouch, See Instructions, # 40 each, Refills 11, Tot. Refills 11, Maintenance, use as needed for ostomy care. 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 Fax to Anrde ([facility]). disp 40 coloplast pouche... Start Date: 08/05/19 Status: Ordered coloplast 79384 convex 1 piece coloplast 46053 convex 1 piece, See Instructions, # 1 box, Refills 11, Tot. Refills 11, Maintenance, use for ostomy changes Dx- uc/ileostomy, 07/25/18 11:04:40 EDT, Compound Start Date: 07/25/18 Status: Ordered coloplast bags #41693 coloplast bags #84204, See Instructions, # 20 each, Refills 11, [...] 11 Refills, Maintenance, 07/23/20 12:00:00 EDT, Tablet, [facility] [id number], 173, cm, 07/19/20 10:52:00 EDT, Height, 86.8, kg, 04/07/20 8:07:00 EST, Dry Weight Start Date: 07/23/20 Stop Date: 07/18/21 Status: Ordered hydrochlorothiazide 12.5 mg oral tablet 1 tablet = 12.5 mg, By Mouth, Daily, # 30 tablet, 11 Refills, Maintenance, 01/04/21 11:11:00 EDT, Tablet, [facility] [id number], Partial fill upon patient request if the [...] 07/18/21 12:01:00 EDT, 07/23/20 12:01:00 EDT, Tablet, [facility] [id number], 173, cm, 07/19/20 10:52:00 EDT, Hei... Start Date: 07/23/20 Stop Date: 3/21/22 Status: Ordered LifeLine LifeLine, See Instructions, # 1 each, Refills 0, Tot. Refills 0, Maintenance, use to call for help in the home as directed length of need 99 B20, F32.9, F11.2 Pt address/#: [place] [address], [address]. [phone] Critical Signal... Start Date: 01/15/18 Status: Ordered [...] Date: 09/12/18 Status: Ordered No-nsting skin prep #[id number] No-nsting skin prep #29961079, See Instructions, # 1 bottle, Refills 11, Tot. Refills 11, Maintenance, Use as needed for ostomy care Dx: colostomy, 01/31/18 11:44:14 EDT, Compound Start Date: 01/31/18 Status: Ordered omeprazole 20 mg oral enteric coated capsule 1 capsule = 20 mg, By Mouth, Daily, PRN only if needed for acid reflux symptoms, # 90 capsule, 0 Refills, Maintenance, 01/21/21 6:58:00 EDT, EC Capsule, [facility], 172, cm, 01/18/21 12:02:00 [...] tablet, 11 Refills, Maintenance, 08/02/20 17:47:00 EDT, [facility], 172, cm, 07/30/20 16:38:00 EDT, [...] tablet, 11 Refills, Maintenance, 06/22/20 20:22:00 EST, [facility], 173, cm, 04/12/20 11:01:00 EST, [...] mg sublingual film 3 film, Sublingual, Daily, [id number] MassPATchecked. dissolve under tongue, # 84 film, 0 Refills, Maintenance, 03/07/21 16:43:00 EST, [place], [place] - [id number], increase in dose from 16 mg to 24 mg daily, 3 film Sublingual Jennifer... Start Date: 03/07/21 Stop Date: 04/04/21 Status: Ordered traZODone 100 mg oral tablet 1, tablet, By Mouth, Daily at bedtime, PRN, # 30 tablet, Refills 11, Tot. Refills 0, Maintenance, NEEDED FOR insomnia, 07/23/20 12:03:00 EDT, Route to Pharmacy Electronically, [facility], 173, cm, 07/19/20 10:52:00 EDT, Height, 86.8, kg, 04/07... Start Date: 07/23/20 Status: Ordered Triumeq oral tablet 1 tablet, By Mouth, Daily, # 30 tablet, 11 Refills, Maintenance, 07/23/20 12:00:00 EDT, Tablet, [facility] - [place], [place] - [id number], 1 tablet By Mouth Daily,x30 days, 173, cm, 07/19/20 10:52:00 EDT, Height, 86.8, kg, 04/07/20 8:07:00 EST, D... Start Date: 07/23/20 Stop Date: 07/18/21 Status: Ordered Unisolve adhesive remover #930497 Unisolve adhesive remover #932503, See Instructions, # 1 box, Refills 11, [...] inguinal pain(Confirmed) Active 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) Active *[phone] Care Partn krysten-Jesica Jeter(Confirmed) Active traumatic splenectomy [...]
[2022-12-18 06:35] LABS: Troponin-I High Sensitivity 18.2 ng/L (<3.5-35.0)
--- OUTSIDE RECORDS SUMMARY | 2022-12-18 06:35 | XMS_ITS | Continuity of Care Document ---
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 Name Role Phone Mora Gooden MD Primary Care Physician [facility]counter [facility] Date(s): 08/14/22 - 09/13/[address] [address]- Allergies, Adverse Reactions, Alerts Substance Reaction Severity Status ampicillin Active aspirin BLEEDING Persistent Severe Active Pollen NASAL CONGESTION SNEEZING Persistent Mode rate Active NSAIDs bleeding Persistent Severe Active Immunizations Given and Recorded Vaccine Date Status Refusal Reason [id number] 12y+ bivalent booster vax 02/02/22 Recorded SARS-CoV-2 [...] VIS 10/03 4Result Comment: [12/07/2016] diluent LOT [id number] EXP 03/29/2018 5Result Comment: [07/18/2016] Liquid component: [id number], exp.: 05/2017 6Admin Note: VIS 12/13/2006 7Admin Note: vis 10/30/11 8Admin Note: vis [id number] 9Admin Note: done at [facility] this past march 10Admin Note: VIS GIVEN 2008- 11Admin Note: vis 11/25/06 Medications acetaminophen 500 mg oral tablet 1 tablet, By Mouth, 4 times a day, PRN NEEDED FOR PAIN, TAKE ONLY IF needed, # 100 tablet, 5 Refills, Maintenance, 04/14/22 15:58:00 EST, [facility] - [place], [place] - [phone], 167, cm, 04/10/22 11:48:00 EST, Height, 89.9, kg, 05/25/21 10:... Start Date: 04/14/22 Status: Ordered Albuterol (Eqv-ProAir HFA) 90 mcg/inh inhalation aerosol 2 puffs, Inhalation, 4 times a day, PRN NEEDED FOR SHORTNESS OF BREATH OR FOR WHEEZING, # 25.5 Gm, 5 Refills, [facility], 4, INHALE 2 PUFFS BY [...] 09/09/21 Status: Ordered Talbert Elastic barrier strips #[id number] Talbert Elastic barrier strips #[id number], See Instructions, # 120 each, Refills 11, Tot. Refills 11, Maintenance, Dx: K51; Z93. 3 sig: use 4 strips a day with ostomy bag. disp: 4 bags of 30 strips = 120 strips per month. Fax to [facility] [phone], 04... Start Date: 08/21/22 Status: Ordered busPIRone 5 mg oral tablet 1, tablet, By Mouth, 3 times a day, PRN, # 270 tablet, Refills 1, Maintenance, NEEDED FOR ANXIETY, 07/24/22 17:21:00 EDT, Route to Pharmacy Electronically, [facility], 167, cm, 04/10/22 11:48:00 EST, Height, 89.9, kg, 05/25/21 10:21:00 EST, [facility]. Start Date: 07/24/22 Status: Ordered carvedilol 12.5 mg oral tablet 1, tablet, By Mouth, 2 times a day, # 180 tablet, Refills 1, Maintenance, 06/26/22 22:23:00 EST, Route to Pharmacy Electronically, [facility], 167, cm, 04/10/22 11:48:00 EST, Height, 89.9, kg, 05/25/21 10:21:00 EST, Dry Weight Start Date: 06/26/22 Status: Ordered cetirizine 10 mg oral tablet See Instructions, TAKE 1 TABLET BY MOUTH ONCE DAILY NEEDED for allergy, # 90 tablet, 1 Refills, Maintenance, 08/24/22 11:40:00 EDT, [facility], 167, cm, 08/01/22 10:08:00 EDT, Height, 89.9, kg, 05/25/21 10:21:00 EST, Dry Weight Start Date: 08/24/22 Status: Ordered coloplast #09762 pouch coloplast #51063 pouch, See Instructions, # 20 each, Refills 11, Tot. Refills 11, Maintenance, use as needed for ostomy care. 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 Fax to Andre ([facility]), 06/25/19 12:46:00 EST, Compound Start Date: 06/25/19 Status: Ordered coloplast #53610 pouch coloplast #57424 pouch, See Instructions, # 40 each, Refills 11, Tot. Refills 11, Maintenance, use as needed for ostomy care. 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 Fax to Andre ([facility]). disp 40 coloplast pouche... Start Date: 08/05/19 Status: Ordered coloplast 31164 convex 1 piece coloplast 92564 convex 1 piece, See Instructions, # 1 box, Refills 11, Tot. Refills 11, Maintenance, use for ostomy changes Dx- uc/ileostomy, 07/25/18 11:04:40 EDT, Compound Start Date: 07/25/18 Status: Ordered coloplast bags #56653 coloplast bags #01465, See Instructions, # 20 each, Refills 11, [...] R60.0 pls fax to [facility] 05/12/19 14:02:00 EST, Compound Start Date: [...] Gm, 5 Refills, Maintenance, 06/27/22 16:38:00 EST, [facility], 30, APPLY TO PAINFUL KNEES 1 TO 2 TIMES A DAY maximum. WASH HANDS AFTER USE, 167, cm,... Start Date: 06/27/22 Status: Ordered Dovato 50 mg-300 mg oral tablet 1 tablet, By Mouth, Daily, *pharmacy: please change triumeq to dovato with the next monthly medication delivery., # 30 tablet, 11 Refills, Maintenance, 04/21/22 14:15:00 EST, Tablet, [facility] - [place], [place] - [phone], Partial fill upon pa... Start Date: 04/21/22 [...] tablet, 11 Refills, Maintenance, 06/27/22 16:38:00 EST, [facility], 167, cm, 04/10/22 11:48:00 EST, [...] tablet, 5 Refills, Maintenance, 08/24/22 11:41:00 EDT, [place], [place] - [id number], 167, cm, 08/01/22 10:08:00 EDT, Height, 89.9, [...] 11 Refills, Maintenance, 07/07/22 11:45:00 EST, Tablet, [facility] - [place], [place] - [phone], Partial fill upon patient request if the prescription is for a schedule II opioid drug., 167,... Start Date: 07/07/22 Status: Ordered LifeLine LifeLine, See Instructions, # 1 each, Refills 0, Tot. Refills 0, Maintenance, use to call for help in the home as directed length of need 99 B20, F32.9, F11.2 Pt address/#: [address] [place] [address], [address] [phone] Critical Signal... Start Date: 01/15/18 Status: Ordered [...] Date: 09/12/18 Status: Ordered No-nsting skin prep #[id number] No-nsting skin prep #[id number], See Instructions, # 1 bottle, Refills 11, Tot. Refills 11, Maintenance, Use as needed for ostomy care Dx: colostomy, 01/31/18 11:44:14 EDT, Compound Start Date: 01/31/18 Status: Ordered omeprazole 40 mg oral enteric coated capsule 1 capsule, By Mouth, 2 times a day, # 60 capsule, 1 Refills, Maintenance, 07/24/22 17:23:00 EDT, [facility], 167, cm, 04/10/22 11:48:00 EST, [...] Gm, 5 Refills, Maintenance, 08/24/22 15:20:00 EDT, [facility], 30, DISSOLVE 17GM IN WATER BEFORE [...] mg sublingual film 3 film, Sublingual, Daily, MassPATchecked. dissolve under tongue, # 90 film, 0 Refills, Maintenance, 09/07/22 15:44:00 EDT, [facility] [id number], 3 film Sublingual Daily,l03aclj,Instr:MassPATchecked. dissolve under tongue,... Start Date: 09/07/22 Stop Date: 10/07/22 Status: Ordered traZODone 100 mg oral tablet 1, tablet, By Mouth, Daily at bedtime, PRN, # 90 tablet, Refills 1, Maintenance, NEEDED FOR insomnia, 06/27/22 16:38:00 EST, Route to Pharmacy Electronically, [facility], 167, cm, 04/10/22 11:48:00 EST, Height, 89.9, kg, 05/25/21 10:21:00 EST,... Start Date: 06/27/22 Status: Ordered Trulicity Pen 0.75 mg/0.5 mL subcutaneous solution 0.5 mL = 0.75 mg, Subcutaneous Injection, Every week, rotate injection sites, # 2 mL, 11 Refills, Maintenance, 07/07/22 11:45:00 EST, Solution, [facility] [phone], Partialfill upon patient request if the prescription is fo... 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 SLAC (scapholunate [...] Team Personnel Name: Maru Grey NP [facility] Associate Professional Member Role: Primary Care Nurse Address: Address: [address] [place] [address] [place] [address]- Name: Arianne George RN Position: [facility] RN Member Role: Primary Care Nurse Name: Radha Ewing RN Position: [facility] RN Member Role: Primary Care Nurse Name: Macey Trevino RN Position: [facility] PCO RN Member Role: Primary Care Nurse Name: Nesha Leigh RN Position: [facility] SN RN Member Role: Primary Care Nurse Name: Alanna Ashby RN Position: [facility] RN Member Role: Primary Care Nurse Name: Loren Jimenez RN Position: [facility] RN Member Role: Primary Care Nurse Name: Starr Poon RN Position: [facility] SN RN Member Role: Primary Care Nurse Name: Vilma Perez RN Position: [facility] MR W/ Merge Member Role: Primary Care Nurse Name: John Noguera RN Position: [facility] RN Member Role: Primary Care Nurse Name: Dunia Arechiga RN Position: [facility] RN Member Role: Primary Care Nurse Name: Kamilah Baron Position: [facility] PCO TA Member Role: Primary Care Nurse Name: Ro Lopez RN Position: [facility] RN Member Role: Primary Care Nurse Name: Kosta Braun III, RN Position: [facility] RN Member Role: Primary Care Nurse Name: Lauryn Jiménez RN Position: [facility] Nurse Member Role: Primary Care Nurse Name: Jorge Ching RN Position: [facility] RN Member Role: Primary Care Nurse Name: Valarie Srivastava RN Position: [facility] RN Member Role: Primary Care Nurse Name: Monica Jacobs RN Position: [facility] RN Member Role: Primary Care Nurse Name: Johanna Castaneda RN Position: [facility] RN Member Role: Primary Care Nurse Address: Address: [address] [place] [address]- Name: Luisa Zavaleta RN Position: [facility] AMB Nurse Member Role: Primary Care Nurse Name: Yulissa Mora RN Position: [facility] SN RN Member Role: Primary Care Nurse Name: Francine Abrams RN Position: [facility] RN Member Role: Primary Care Nurse Name: Shea Marinelli RN Position: [facility] RN Member Role: Primary Care Nurse Name: Mora Gooden MD Position: [facility] Primary Care Physician Member Role: PCP Address: Address: [address] [place] [address]- Care Team Related Persons Name: PEGGY GARDNER Address: home [address] [place] [address] Name: JLUIS WHITE STAGE NAME Name: ADIA WINTERS
--- OUTSIDE RECORDS SUMMARY | 2022-12-18 06:35 | XMS_ITS | Continuity of Care Document ---
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 Role Phone Noemi Ruffin MD, I Primary Care Physician [facility]counter [facility] Date[facility]s): 03/19/20 - 04/18/[address] [address] Attending Physician: AdmJorge A decker Admitting Physician: Admtr, [id number] Referring Physician: Admtr, [id number] Allergies, Adverse Reactions, [...] VIS 10/03 3Result Comment: [12/07/2016] diluent LOT [id number] EXP 03/29/2018 4Result Comment: [07/18/2016] Liquid component: [id number], exp.: 05/2017 5Admin Note: VIS 12/13/2006 6Admin Note: vis 10/30/11 7Admin Note: vis [id number] 8Admin Note: done at [facility] this past march 9Admin Note: VIS GIVEN 2008- 10Admin Note: vis 11/25/06 Medications acetaminophen 500 mg oral tablet 1 tablet = 500 mg, By Mouth, 2 times a day, PRN for pain, take only if needed, # 60 tablet, 5 Refills, Maintenance, 04/17/19 10:49:00 EST, Tablet, [facility] - [place], [place] -, 172, cm, 04/17/19 9:42:00 EST, Height, 83.7, kg, 04/04/19 0:17:00 E... Start Date: 04/17/19 Stop Date: 10/14/19 Status: Ordered albuterol CFC free 90 mcg/inh inhalation aerosol See Instructions, # 18 Gm, Refills 5 Tot. Refills 5, INHALE 2 PUFFS BY MOUTH INTO THE lungs 4 (FOUR) TIMES DAILY NEEDED FOR SHORTNESS OF BREATH OR FOR WHEEZING, [facility] - [place], [place] - Start Date: 01/21/19 Status: Ordered Alcohol Pads See Instructions, # 50 each, Refills 11, Tot. Refills 11, Maintenance, E11.9 check BG daily, 12/05/18 7:49:59 EDT, Compound Start Date: 12/05/18 Status: Ordered amLODIPine 5 mg oral tablet 5 mg, 1, tablet, By Mouth, Daily at bedtime, # 30 tablet, Refills 11, Tot. Refills 11, Maintenance,06/16/19 12:27:00 EST, Route to Pharmacy Electronically, [facility] - [place], [place] -, 172, cm, 06/16/19 11:20:00 EST, [...] 07/14/19 Status: Ordered Talbert Elastic barrier strips #[id number] Talbert Elastic barrier strips #073054, See Instructions, # 1 units, Refills 11, [...] 04/17/19 10:43:00 EST, Route to Pharmacy Electronically, [place], [place] -, 172, cm, 04/17/19 9:42:00 EST, Height, 83.7, kg... Start Date: 04/17/19 Stop Date: 04/11/20 Status: Ordered carvedilol 6.25 mg oral tablet 6.25 mg, 1, tablet, By Mouth, 2 times a day, # 60 tablet, Refills 11, Tot. Refills 11, Maintenance,06/16/19 12:25:00 EST, Route to Pharmacy Electronically, [place], [place] -, 172, cm, 06/16/19 11:20:00 EST, [...] 1 Refills, Maintenance, 03/16/20 13:27:00 EST, Granule, [facility] - [place], [place] - [phone], Partial fill u... Start Date: 03/16/20 Stop Date: 05/15/20 Status: Ordered coloplast #50153 pouch coloplast #70782 pouch, See Instructions, # 20 each, Refills 11, Tot. Refills 11, Maintenance, use as needed for ostomy care. 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 Fax to Andre ([facility]), 06/25/19 12:46:00 EST, Compound Start Date: 06/25/19 Status: Ordered coloplast #40737 pouch coloplast #08545 pouch, See Instructions, # 40 each, Refills 11, Tot. Refills 11, Maintenance, use as needed for ostomy care. 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 Fax to Andre ([facility]). disp 40 coloplast pouche... Start Date: 08/05/19 Status: Ordered coloplast 34602 convex 1 piece coloplast 55663 convex 1 piece, See Instructions, # 1 box, Refills 11, Tot. Refills 11, Maintenance, use for ostomy changes Dx- uc/ileostomy, 07/25/18 11:04:40 EDT, Compound Start Date: 07/25/18 Status: Ordered coloplast bags #27752 coloplast bags #67627, See Instructions, # 20 each, Refills 11, [...] 04/19/20 8:54:00 EST, 04/12/20 8:53:00 EST, Tablet, [facility],Partial fill upon patient request if [...] 11 Refills, Maintenance, 07/29/19 11:40:00 EDT, Tablet, [place], [place] -, 172, cm, 06/25/19 10:26:00 EST, Height, 83.7, kg, 04/04/19 0:17:00 EST, Dry Weight Start Date: 07/29/19 Stop Date: 07/23/20 Status: Ordered Januvia 50 mg oral tablet 1 tablet = 50 mg, By Mouth, Daily before breakfast, for diabetes, # 30 tablet, 11 Refills, Maintenance, 04/17/19 10:46:00 EST, Tablet, [place], [place] -, 172, cm, 04/17/19 9:42:00 EST, Height, 83.7, kg, 04/04/19 0:17:00 EST, Dry Weight Start Date: 04/17/19 Stop Date: 04/11/20 Status: Ordered LifeLine LifeLine, See Instructions, # 1 each, Refills 0, Tot. Refills 0, Maintenance, use to call for help in the home as directed length of need 99 B20, F32.9, F11.2 Pt address/#: [address] [address], [address] [phone] Critical Signal... Start Date: 01/15/18 Status: Ordered [...] Date: 09/12/18 Status: Ordered No-nsting skin prep #74776806 No-nsting skin prep #59566552, See Instructions, # 1 bottle, Refills 11, Tot. Refills 11, Maintenance, Use as needed for ostomy care Dx: colostomy, 01/31/18 11:44:14 EDT, Compound Start Date: 01/31/18 Status: Ordered omeprazole 20 mg oral enteric coated capsule 1 capsule = 20 mg, By Mouth, Daily, PRN only if needed for acid reflux symptoms, # 30 capsule, 5 Refills, Maintenance, 04/17/19 10:49:00 EST, EC Capsule, [facility] - [place], [place] -, 172, cm,04/17/19 9:42:00 EST, Height, [...] 11 Refills, Maintenance, 06/16/19 12:26:00 EST, Tablet, [facility] - [place], [place] -, 172, cm, 06/16/19 11:20:00 EST, [...] 07/19/19 17:09:00 EDT, Route to Pharmacy Electronically, [facility], 172, cm, 06/25/19 10:26:00 EST, Height, 83.7, kg, 04/04... Start Date: 07/19/19 Status: Ordered Triumeq oral tablet 1 tablet, By Mouth, Daily, # 30 tablet, 11 Refills, Maintenance, 07/29/19 11:40:00 EDT, Tablet, [facility] - [place], [place] -, 1 tablet By Mouth Daily,x30 days, 172, cm, 06/25/19 10:26:00 EST, Height, 83.7, kg, 04/04/19 0:17:00 EST, Dry Weight Start Date: 07/29/19 Stop Date: 07/23/20 Status: Ordered Unisolve adhesive remover #158549 Unisolve adhesive remover #162099, See Instructions, # 1 box, Refills 11, Tot. Refills 11, Maintenance, To remove appliance at every change Dx Ulcerative Colitis, 01/31/18 11:44:15 EDT, Compound Start Date: 01/31/18 Status: Ordered warfarin 1 mg oral tablet See Instructions, Take 1-10 tablets By Mouth Daily as directed by EVELYN, # 150 tablet, 0 Refills, Maintenance, 04/12/20 8:51:00 EST, Tablet, [facility], Partial fill upon patient requestif the [...] inguinal pain(Confirmed) Active 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) Active *[id number] Care Partn er-Jesica Jeter(Confirmed) Active traumatic splenectomy [...]
--- OUTSIDE RECORDS SUMMARY | 2022-12-18 06:35 | XMS_ITS | Continuity of Care Document ---
Author Name Unknown Organization [facility] Address [address] [place] [address]- Care Team Providers Care Body Joiner Name Role Phone Noemi Ruffin MD, I Primary Care Physician [place] [facility] [id number] Date(s): 04/10/22 - 05/10/[address] [address]- Attending Physician: Jorge A Sutton Admitting Physician: AdmtrJorge A Referring Physician: Admtr, Ar8 Allergies, Adverse Reactions, Alerts Substance Reaction Severity Status ampicillin Active aspirin BLEEDING Persistent Severe Active Pollen NASAL CONGESTION SNEEZING Persistent Mode rate Active NSAIDs bleeding Persistent Severe Active Immunizations Given and Recorded Vaccine Date Status Refusal Reason [id number] 12y+ bivalent booster vax 02/02/22 Recorded SARS-CoV-2 [...] influenza virus vaccine, inactivated 2 02/22/07 Gi jrugen influenza virus vaccine, inactivated 3 02/23/06 Gi [...] Pneumococcal Poly (PPV23) (oldterm) 11 02/22/07 Gi juregn Pneumococcal Poly (PPV23) (oldterm) 11/05/87 Given Pneumococcal Vacc (oldterm) 10/28/01 Given 1Result Comment: Received where he lives 2Admin Note: vis 3Admin Note: VIS 10/03 4Result Comment: [12/07/2016] diluent LOT [id number] EXP 03/29/2018 5Result Comment: [07/18/2016] Liquid component: [id number], exp.: 05/2017 6Admin Note: VIS 12/13/2006 7Admin Note: vis 10/30/11 8Admin Note: vis [id number] 9Admin Note: done at [facility] this past march 10Admin Note: VIS GIVEN 2008- 11Admin Note: vis 11/25/06 Medications acetaminophen 500 mg oral tablet 1 tablet, By Mouth, 4 times a day, PRN NEEDED FOR PAIN, TAKE ONLY IF needed, # 100 tablet, 5 Refills, Maintenance, 04/14/22 15:58:00 EST, [place], [place] - [id number], 167, cm, 04/10/22 11:48:00 EST, Height, 89.9, kg, 05/25/21 10:... Start Date: 04/14/22 Status: Ordered Albuterol (Eqv-ProAir HFA) 90 mcg/inh inhalation aerosol 2 puffs, Inhalation, 4 times a day, PRN NEEDED FOR SHORTNESS OF BREATH OR FOR WHEEZING, # 25.5 Gm, 5 Refills, [facility], 4, INHALE 2 PUFFS BY [...] 07/26/21 14:15:00 EDT, Route to Pharmacy Electronically, [facility] [phone], Partial fill upon patient request if the [...] 09/09/21 Status: Ordered Talbert Elastic barrier strips #[id number] Talbert Elastic barrier strips #[id number], See Instructions, # 1 units, Refills 11, Tot. Refills 11, Maintenance, To remove appliance at every change Dx Ulcerative Colitis, 01/31/18 11:44:17 EDT, Compound Start Date: 01/31/18 Status: Ordered busPIRone 5 mg oral tablet 1, tablet, By Mouth, 3 times a day, PRN, # 270 tablet, Refills 1, Tot. Refills 1, Maintenance, NEEDED FOR ANXIETY, 01/26/22 18:01:00 EDT, Route to Pharmacy Electronically, [facility] [place], [place] - [id number], 167, cm, 08/08/21 11:18:00 E... Start Date: 01/26/22 Stop Date: 07/25/22 Status: Ordered carvedilol 12.5 mg oral tablet 1, tablet, By Mouth, 2 times a day, # 180 tablet, Refills 0, Tot. Refills 0, Maintenance, 03/27/22 6:13:00 EST, Route to Pharmacy Electronically, [place], [place] - [id number], Office visit needed for further refills., 167, cm, ... Start Date: 03/27/22 Status: Ordered cetirizine 10 mg oral tablet 1 tablet, By Mouth, Daily, PRN NEEDED FOR FOR ALLERGY, # 90 tablet, 1 Refills, 02/23/22 14:13:00EDT, [facility], [place] - [id number], 167, cm, 08/08/21 11:18:00 EDT, Height, 89.9, kg, 05/25/21 10:21:00 EST, Dry Weight Start Date: 02/23/22 Status: Ordered coloplast #82122 pouch coloplast #87797 pouch, See Instructions, # 20 each, Refills 11, Tot. Refills 11, Maintenance, use as needed for ostomy care. 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 Fax to Andre ([facility]), 06/25/19 12:46:00 EST, Compound Start Date: 06/25/19 Status: Ordered coloplast #92505 pouch coloplast #41926 pouch, See Instructions, # 40 each, Refills 11, Tot. Refills 11, Maintenance, use as needed for ostomy care. 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 Fax to Andre ([facility]). disp 40 coloplast pouche... Start Date: 08/05/19 Status: Ordered coloplast 59419 convex 1 piece coloplast 90496 convex 1 piece, See Instructions, # 1 box, Refills 11, Tot. Refills 11, Maintenance, use for ostomy changes Dx- uc/ileostomy, 07/25/18 11:04:40 EDT, Compound Start Date: 07/25/18 Status: Ordered coloplast bags #74933 coloplast bags #00157, See Instructions, # 20 each, Refills 11, Tot. Refills 11, Maintenance, use as needed for ostomy care Dx. ileostomy Z93.2 fax to [facility], 09/09/21 10:48:00 EDT, Compound Start Date: 09/09/21 Status: Ordered Compression Stockings See Instructions, # 4 each, Refills 1, Tot. Refills 1, Maintenance, knee high compression hose 20-30mm 4 pair dx bilateral leg edema. R60.0 pls fax to [facility], 05/12/19 14:02:00 EST, Compound Start [...] Gm, 5 Refills, Maintenance, 12/29/21 18:49:00 EDT, [facility], 30, APPLY TO PAINFUL KNEES 1 TO 2 TIMES A DAY maximum. WASH HANDS AFTER USE, 167, cm,... Start Date: 12/29/21 Status: Ordered Dovato 50 mg-300 mg oral tablet 1 tablet, By Mouth, Daily, *pharmacy: please change triumeq to dovato with the next monthly medication delivery., # 30 tablet, 11 Refills, Maintenance, 04/21/22 14:15:00 EST, Tablet, [facility] - [place], [place] - [id number], Partial fill upon pa... Start Date: 04/21/22 [...] a day, # 60 tablet, 11 Refills, [facility], 167, cm, 05/26/21 7:07:00 EST, [...] 30 tablet, 2 Refills, 02/23/22 14:14:00 EDT, [facility] - [place], [place] - [id number], 167, cm, 08/08/21 11:18:00 EDT, Height, 89.9, [...] need 99 B20, F32.9, F11.2 Pt address/#: [address] [place] [address], [address]. [phone] Critical Signal... Start Date: 01/15/18 Status: Ordered Lokelma 10 g oral powder for reconstitution See Instructions, DISSOLVE THE CONTENT OF 1 PACKET IN WATER AND DRINK ONCE DAILY. DO NOT TAKE WITHIN 2 HOURS OF other MEDICATIONS, # 30 pack/packet, 5 Refills, Maintenance, 04/25/22 16:05:00 EST, [facility], 167, cm, 04/10/22 11:48:00 EST, [...] Date: 09/12/18 Status: Ordered No-nsting skin prep #[id number] No-nsting skin prep #[id number], See Instructions, # 1 bottle, Refills 11, [...] Mouth, Daily, # 45 tablet, 11 Refills, [facility], 167, cm, 05/26/21 7:07:00 EST, Height, 89.9, kg, 05/25/21 10:21:00 EST, Dry Weight Start Date: 06/22/21 Status: Ordered sitaGLIPtin 25 mg oral tablet 1 tablet = 25 mg, By Mouth, Daily, pls note the lower dose., # 30 tablet, 11 Refills, Maintenance, 08/11/21 15:34:00 EDT, Tablet, [facility] - [place], [place] - [id number], Partial fill upon patient request if the [...] needed with every change Dx ulcerative Colitis, 10/04/18 11:44:07 EDT, Compound Start Date: 01/31/18 Status: Ordered Suboxone 8 mg-2 mg sublingual film 3 film, Sublingual, Daily, Laly [id number] MassPATchecked. dissolve under tongue May fill on or after 04/19/2022., # 84 film, 0 Refills, Maintenance, 04/17/22 17:05:00 EST, [facility] - [place], [place] - [id number], increase in dose from 1... Start Date: 04/17/22 Stop Date: 05/15/22 Status: Ordered traZODone 100 mg oral tablet 1, tablet, By Mouth, Daily at bedtime, PRN, # 90 tablet, Refills 1, Maintenance, NEEDED FOR insomnia, 12/29/21 10:33:00 EDT, Route to Pharmacy Electronically, [facility], 167, cm, 08/08/21 11:18:00 EDT, Height, 89.9, kg, 05/25/21 10:21:00 EST,... 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 Sex Note * Event Display: Laboratory Result Scanned Authored Date: * Event Display: IR Special Procedures, Non-BH Authored Date: * Event Display: Non BH Lab Results Authored Date: * Event Display: Laboratory Result Scanned Authored Date: * Event Display: IR Special Procedures Authored Date: * Vivi Rhodes: PERFORM Event Display: Case Management Discharge Plan Authored Date: Today CM spoke to darren at the [employer] and she ask if i had hear anything form client. CM told her I haven't seen him in a while. Darren said I'm still waiting on his Cori paperwork. CM said I will let him know if I see him. Darren said I will sent out al letter to him it will not have anything about HIV on it letting him know that if I don't get the paperwork within two week or a phone call I will close out his case. GERONIMO said ok and If I speak to him I will let him know. Patient Care team information Care Team Personnel Name: Maru Grey NP Position: [facility] PCO Associate Professional Member Role: Primary Care Nurse Address: Address: [address] [place] [address] [place] [address]- Name: Arianne George RN Position: S RN Member Role: Primary Care Nurse Name: Radha Ewing RN Position: [facility] RN Member Role: Primary Care Nurse Name: Macey Trevino RN Position: [facility] RN Member Role: Primary Care Nurse Name: Nesha Leigh RN Position: [facility] SN RN Member Role: Primary Care Nurse Name: Alanna Ashby RN Position: [facility] RN Member Role: Primary Care Nurse Name: Loren Jimenez RN Position: [facility] RN Member Role: Primary Care Nurse Name: Starr Poon RN Position: [facility] SN RN Member Role: Primary Care Nurse Name: Vilma Perez RN Position: [facility] MR W/ Merge Member Role: Primary Care Nurse Name: John Noguera RN Position: [facility] RN Member Role: Primary Care Nurse Name: Noemi Ruffin MD, I Position: [facility] Primary Care Physician Member Role: PCP Address: Address: [address] [place] [address]- Name: Dunia Arechiga RN Position: [facility] RN Member Role: Primary Care Nurse Name: Kamilah Baron Position: [facility] TA Member Role: Primary Care Nurse Name: Darren Duvall RN Position: [facility] RN Member Role: Primary Care Nurse Name: Ro Lopez RN Position: [facility] RN Member Role: Primary Care Nurse Name: Kosta Braun III, RN Position: [facility] RN Member Role: Primary Care Nurse Name: Lauryn Jiménez RN Position: [facility] Network Operations Analyst Member Role: Primary Care Nurse Name: Jorge Ching RN Position: [facility] RN Member Role: Primary Care Nurse Name: Valarie Srivastava RN Position: [facility] RN Member Role: Primary Care Nurse Name: Monica Jacobs RN Position: [facility] RN Member Role: Primary Care Nurse Name: Johanna Castaneda RN Position: [facility] RN Member Role: Primary Care Nurse Address: Address: [address] [place] [address]- [place] Name: Luisa Zavaleta RN Position: [facility] AMB Nurse Member Role: Primary Care Nurse Name: Yulissa Mora RN Position: [facility] SN RN Member Role: Primary Care Nurse Name: Francine Abrams RN Position: [facility] RN Member Role: Primary Care Nurse Name: Shea Marinelli RN Position: [facility] RN Member Role: Primary Care Nurse Care Team Related Persons Name: PEGGY GARDNER Address: home [address] [place] [address] Name: JLUIS WHITE STAGE NAME Name: ADIA WINTERS
--- OUTSIDE RECORDS SUMMARY | 2022-12-18 06:35 | XMS_ITS | Continuity of Care Document ---
Author Name Unknown Organization [facility] Address [address] [place] [address]- Care Team Providers Care Agriculture Sales Account Manager Name Role Phone Mora Gooden MD Primary Care Physician Encounter [facility] Date(s): 08/24/22 - 09/23/[address] [address]- Allergies, Adverse Reactions, Alerts Substance Reaction Severity Status ampicillin Active aspirin BLEEDING Persistent Severe Active Pollen NASAL CONGESTION SNEEZING Persistent Mode rate Active NSAIDs bleeding Persistent Severe Active Immunizations Given and Recorded Vaccine Date Status Refusal Reason [id number] 12y+ bivalent booster vax 02/02/22 Recorded SARS-CoV-2 [...] VIS 10/03 4Result Comment: [12/07/2016] diluent LOT [id number] EXP 03/29/2018 5Result Comment: [07/18/2016] Liquid component: [id number], exp.: 05/2017 6Admin Note: VIS 12/13/2006 7Admin Note: vis 10/30/11 8Admin Note: vis [id number] 9Admin Note: done at [facility] this past march 10Admin Note: VIS GIVEN 2008- 11Admin Note: vis 11/25/06 Medications acetaminophen 500 mg oral tablet 1 tablet, By Mouth, 4 times a day, PRN NEEDED FOR PAIN, TAKE ONLY IF needed, # 100 tablet, 5 Refills, Maintenance, 04/14/22 15:58:00 EST, [facility] - [place], [place] - [id number], 167, cm, 04/10/22 11:48:00 EST, Height, 89.9, kg, 05/25/21 10:... Start Date: 04/14/22 Status: Ordered Albuterol (Eqv-ProAir HFA) 90 mcg/inh inhalation aerosol 2 puffs, Inhalation, 4 times a day, PRN NEEDED FOR SHORTNESS OF BREATH OR FOR WHEEZING, # 25.5 Gm, 5 Refills, [facility], 4, INHALE 2 PUFFS BY [...] 09/09/21 Status: Ordered Talbert Elastic barrier strips #628364 Talbert Elastic barrier strips #798133, See Instructions, # 120 each, Refills 11, Tot. Refills 11, Maintenance, Dx: K51; Z93. 3 sig: use 4 strips a day with ostomy bag. disp: 4 bags of 30 strips = 120 strips per month. Fax to [facility] [phone], 04... Start Date: 08/21/22 Status: Ordered busPIRone 5 mg oral tablet 1, tablet, By Mouth, 3 times a day, PRN, # 270 tablet, Refills 1, Maintenance, NEEDED FOR ANXIETY, 07/24/22 17:21:00 EDT, Route to Pharmacy Electronically, [facility], 167, cm, 04/10/22 11:48:00 EST, Height, 89.9, kg, 05/25/21 10:21:00 EST, [facility]. Start Date: 07/24/22 Status: Ordered carvedilol 12.5 mg oral tablet 1, tablet, By Mouth, 2 times a day, # 180 tablet, Refills 1, Maintenance, 06/26/22 22:23:00 EST, Route to Pharmacy Electronically, [facility], 167, cm, 04/10/22 11:48:00 EST, Height, 89.9, kg, 05/25/21 10:21:00 EST, Dry Weight Start Date: 06/26/22 Status: Ordered cetirizine 10 mg oral tablet See Instructions, TAKE 1 TABLET BY MOUTH ONCE DAILY NEEDED for allergy, # 90 tablet, 1 Refills, Maintenance, 08/24/22 11:40:00 EDT, [facility], 167, cm, 08/01/22 10:08:00 EDT, Height, 89.9, kg, 05/25/21 10:21:00 EST, Dry Weight Start Date: 08/24/22 Status: Ordered coloplast #46229 pouch coloplast #85162 pouch, See Instructions, # 20 each, Refills 11, Tot. Refills 11, Maintenance, use as needed for ostomy care. 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 Fax to Andre ([facility]), 06/25/19 12:46:00 EST, Compound Start Date: 06/25/19 Status: Ordered coloplast #39103 pouch coloplast #00566 pouch, See Instructions, # 40 each, Refills 11, Tot. Refills 11, Maintenance, use as needed for ostomy care. 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 Fax to Andre ([facility]). disp 40 coloplast pouche... Start Date: 08/05/19 Status: Ordered coloplast 73690 convex 1 piece coloplast 91608 convex 1 piece, See Instructions, # 1 box, Refills 11, Tot. Refills 11, Maintenance, use for ostomy changes Dx- uc/ileostomy, 07/25/18 11:04:40 EDT, Compound Start Date: 07/25/18 Status: Ordered coloplast bags #07307 coloplast bags #57481, See Instructions, # 20 each, Refills 11, [...] leg edema. R60.0 pls fax to [facility] 05/12/19 14:02:00 EST, Compound Start Date: 05/12/19 [...] Gm, 5 Refills, Maintenance, 06/27/22 16:38:00 EST, [facility], 30, APPLY TO PAINFUL KNEES 1 TO 2 TIMES A DAY maximum. WASH HANDS AFTER USE, 167, cm,... Start Date: 06/27/22 Status: Ordered Dovato 50 mg-300 mg oral tablet 1 tablet, By Mouth, Daily, *pharmacy: please change triumeq to dovato with the next monthly medication delivery., # 30 tablet, 11 Refills, Maintenance, 04/21/22 14:15:00 EST, Tablet, [facility] - [place], [place] - [id number], Partial fill upon pa... Start Date: 04/21/22 [...] tablet, 11 Refills, Maintenance, 06/27/22 16:38:00 EST, [facility], 167, cm, 04/10/22 11:48:00 EST, [...] Maintenance, 08/24/22 11:41:00 EDT, [place], [place] - [id number], 167, cm, 08/01/22 10:08:00 EDT, Height, 89.9, [...] 11 Refills, Maintenance, 07/07/22 11:45:00 EST, Tablet, [facility] - [place], [place] - [id number], Partial fill upon patient request if the prescription is for a schedule II opioid drug., 167,... Start Date: 07/07/22 Status: Ordered LifeLine LifeLine, See Instructions, # 1 each, Refills 0, Tot. Refills 0, Maintenance, use to call for help in the home as directed length of need 99 B20, F32.9, F11.2 Pt address/#: [address] [place] [address], [address]. [phone] Critical Signal... Start Date: 01/15/18 Status: Ordered [...] Date: 09/12/18 Status: Ordered No-nsting skin prep #[id number] No-nsting skin prep #97268824, See Instructions, # 1 bottle, Refills 11, Tot. Refills 11, Maintenance, Use as needed for ostomy care Dx: colostomy, 01/31/18 11:44:14 EDT, Compound Start Date: 01/31/18 Status: Ordered omeprazole 40 mg oral enteric coated capsule 1 capsule, By Mouth, 2 times a day, # 60 capsule, 11 Refills, Maintenance, 09/21/22 16:32:00 EDT, [facility], 167, cm, 08/01/22 10:08:00 EDT, [...] Gm, 5 Refills, Maintenance, 08/24/22 15:20:00 EDT, [facility], 30, DISSOLVE 17GM IN WATER [...] film, 0 Refills, Maintenance, 09/07/22 15:44:00 EDT, [facility] [id number], 3 film Sublingual Daily,[id number],Instr:MassPATchecked. dissolve under tongue,... Start Date: 09/07/22 Stop Date: 10/07/22 Status: Ordered traZODone 100 mg oral tablet 1, tablet, By Mouth, Daily at bedtime, PRN, # 90 tablet, Refills 1, Maintenance, NEEDED FOR insomnia, 06/27/22 16:38:00 EST, Route to Pharmacy Electronically, [facility], 167, cm, 04/10/22 11:48:00 EST, Height, 89.9, kg, 05/25/21 10:21:00 EST,... Start Date: 06/27/22 Status: Ordered Trulicity Pen 0.75 mg/0.5 mL subcutaneous solution 0.5 mL = 0.75 mg, Subcutaneous Injection, Every week, rotate injection sites, # 2 mL, 11 Refills, Maintenance, 07/07/22 11:45:00 EST, Solution, [facility] [phone], Partialfill upon patient request if the prescription is fo... Start Date: 07/07/22 Status: Ordered Unisolve adhesive remover #[id number] Unisolve adhesive remover #163124, See Instructions, # 1 box, Refills 11, [...] Active Osteoarthritis of both hands Confirmed Active *[phone] [employer] Crew Member Nitin Hancock Confirmed Active SLAC (scapholunate advanced [...] Team Personnel Name: Maru Grey NP [facility] Associate Professional Member Role: Primary Care Nurse Address: Address: [address] [place] [address] [place] [address]- Name: Arianne George RN Position: [facility] RN Member Role: Primary Care Nurse Name: Radha Ewing RN Position: [facility] RN Member Role: Primary Care Nurse Name: Macey Trevino RN Position: [facility] PCO RN Member Role: Primary Care Nurse Name: Nesha Leigh RN Position: [facility] RN Member Role: Primary Care Nurse Name: Alanna Ashby RN Position: [facility] RN Member Role: Primary Care Nurse Name: Loren Jimenez RN Position: [facility] RN Member Role: Primary Care Nurse Name: Starr Poon RN Position: [facility] SN RN Member Role: Primary Care Nurse Name: Vilma Perez RN Position: [facility] MR W/ Merge Member Role: Primary Care Nurse Name: John Noguera RN Position: [facility] RN Member Role: Primary Care Nurse Name: Dunia Arechiga RN Position: [facility] RN Member Role: Primary Care Nurse Name: Kamilah Baron Position: [facility] PCO TA Member Role: Primary Care Nurse Name: Ro Lopez RN Position: [facility] RN Member Role: Primary Care Nurse Name: Kosta Braun III, RN Position: [facility] RN Member Role: Primary Care Nurse Name: Lauryn Jiménez RN Position: [facility] Installations Inspector Member Role: Primary Care Nurse Name: Jorge Ching RN Position: [facility] RN Member Role: Primary Care Nurse Name: Valarie Srivastava RN Position: [facility] RN Member Role: Primary Care Nurse Name: Monica Jacobs RN Position: [facility] RN Member Role: Primary Care Nurse Name: Johanna Castaneda RN Position: [facility] RN Member Role: Primary Care Nurse Address: Address: [address] [place] [address]- Name: Luisa Zavaleta RN Position: [facility] AMB Nurse Member Role: Primary Care Nurse Name: Yulissa Mora RN Position: [facility] SN RN Member Role: Primary Care Nurse Name: Francine Abrams RN Position: [facility] RN Member Role: Primary Care Nurse Name: Shea Marinelli RN Position: [facility] RN Member Role: Primary Care Nurse Name: Mora Gooden MD Position: [facility] Physician - Primary Care Member Role: PCP Address: Address: [address] [place] [address]- Care Team Related Persons Name: KENDRA PEGGY Address: [address] [place] [address] Name: JLUIS WHITE STAGE NAME Name: ADIA WINTERS
--- OUTSIDE RECORDS SUMMARY | 2022-12-18 06:35 | XMS_ITS | Continuity of Care Document ---
Author Name Unknown Organization [facility] Address [address] [place] [address]- Care Team Providers Care District Manager Name Role Phone Noemi Ruffin MD, I Primary Care Physician [phone] Encounter [facility] ACCT R [id number] Date(s): 09/16/20 - 10/16/[address] [address]- Attending Physician: Jorge A Sutton Admitting Physician: [...] VIS 10/03 4Result Comment: [12/07/2016] diluent LOT [id number] EXP 03/29/2018 5Result Comment: [07/18/2016] Liquid component: [id number], exp.: 05/2017 6Admin Note: VIS 12/13/2006 7Admin Note: vis 10/30/11 8Admin Note: vis 9Admin Note: done at [facility] this past march 10Admin Note: VIS GIVEN 2008- 11Admin Note: vis 11/25/06 Medications acetaminophen 500 mg oral tablet 1 tablet = 500 mg, By Mouth, 2 times a day, PRN for pain, take only if needed, # 60 tablet, 5 Refills, Maintenance, 04/17/19 10:49:00 EST, Tablet, [facility] [place], [place] -, 172, cm, 04/17/19 9:42:00 EST, Height, 83.7, kg, 04/04/19 0:17:00 E... Start Date: 04/17/19 Stop Date: 10/14/19 Status: Ordered albuterol CFC free 90 mcg/inh inhalation aerosol See Instructions, # 18 Gm, Refills 5 Tot. Refills 5, INHALE 2 PUFFS BY MOUTH INTO THE lungs 4 (FOUR) TIMES DAILY NEEDED FOR SHORTNESS OF BREATH OR FOR WHEEZING, [facility] [place], [place] - Start Date: 01/21/19 Status: Ordered Alcohol Pads See Instructions, # 50 each, Refills 11, Tot. Refills 11, Maintenance, E11.9 check BG daily, 12/05/18 7:49:59 EDT, Compound Start Date: 12/05/18 Status: Ordered amLODIPine 5 mg oral tablet 1 tablet, By Mouth, Daily, # 30 tablet, 11 Refills, Maintenance, 06/22/20 20:22:00 EST, [facility], 173, cm, 04/12/20 11:01:00 EST, Height, 86.8, kg, 04/07/20 8:07:00 EST, Dry Weight Start Date: 06/22/20 Status: Ordered apixaban 2.5 mg oral tablet 1 tablet = 2.5 mg, By Mouth, 2 times a day, # 60 tablet, 0 Refills, Maintenance, 07/30/20 9:38:00 EDT, Tablet, [facility], Partial fill upon patient [...] 07/14/19 Status: Ordered Talbert Elastic barrier strips #042524 Talbert Elastic barrier strips #968810, See Instructions, # 1 units, Refills 11, Tot. Refills 11, Maintenance, To remove appliance at every change Dx Ulcerative Colitis, 01/31/18 11:44:17 EDT, Compound Start Date: 01/31/18 Status: Ordered busPIRone 5 mg oral tablet 5 mg, 1, tablet, By Mouth, 3 times a day, for anxiety, # 270 tablet, Refills 1, Tot. Refills 1, Maintenance, 04/19/20 11:34:00 EST, Route to Pharmacy Electronically, [facility] [id number], 173, cm, 04/12/20 11:01:00 EST, Heigh... Start Date: 04/19/20 Stop Date: 11/15/20 Status: Ordered carvedilol 12.5 mg oral tablet 12.5 mg, 1, tablet, By Mouth, 2 times a day, increase in dose, # 60 tablet, Refills 11, Tot. Refills 11, Maintenance, 10/12/20 11:48:00 EDT, Route to Pharmacy Electronically, [facility] [id number], Partial fill upon patient re... Start Date: 10/12/20 Stop Date: 10/07/21 Status: Ordered cetirizine 10 mg oral tablet 1 tablet = 10 mg, By Mouth, Daily, PRN if needed for allergy symptoms, do not blister pack, # 90 tablet, 1 Refills, Maintenance, 04/19/20 11:34:00 EST, Tablet, [facility] [id number], 173, cm, 04/12/20 11:01:00 EST, Height, 86.... Start Date: 04/19/20 Stop Date: 10/16/20 Status: Ordered Colace Capsule 100 mg, 1, capsule, By Mouth, 2 times a day, Hold for loose stool, Refills 0, Maintenance, 12/14/208:50:00 EST, Partial fill upon patient request if the prescription is for a schedule II opioid drug. Start Date: 04/12/20 Status: Ordered coloplast #37966 pouch coloplast #81609 pouch, See Instructions, # 20 each, Refills 11, Tot. Refills 11, Maintenance, use as needed for ostomy care. 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 Fax to [facility]), 06/25/19 12:46:00 EST, Compound Start Date: 06/25/19 Status: Ordered coloplast #67496 pouch coloplast #01989 pouch, See Instructions, # 40 each, Refills 11, Tot. Refills 11, Maintenance, use as needed for ostomy care. 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 Fax to Andre ([facility] disp 40 coloplast pouche... Start Date: 08/05/19 Status: Ordered coloplast 13114 convex 1 piece coloplast 19495 convex 1 piece, See Instructions, # 1 box, Refills 11, Tot. Refills 11, Maintenance, use for ostomy changes Dx- uc/ileostomy, 07/25/18 11:04:40 EDT, Compound Start Date: 07/25/18 Status: Ordered coloplast bags #38312 coloplast bags #97047, See Instructions, # 20 each, Refills 11, Tot. Refills 11, Maintenance, use as needed for ostomy care Dx. ileostomy Z93.2, 07/14/19 10:56:00 EDT, Compound Start Date: 07/14/19 Status: Ordered Compression Stockings See Instructions, # 4 each, Refills 1, Tot. Refills 1, Maintenance, knee high compression hose 20-30mm 4 pair dx bilateral leg edema. R60.0 pls fax to [facility], 05/12/19 14:02:00 EST, Compound Start Date: [...] 11 Refills, Maintenance, 07/23/20 12:00:00 EDT, Tablet, [place], [place] - [id number], 173, cm, 07/19/20 10:52:00 EDT, Height, 86.8, [...] 07/18/21 12:01:00 EDT, 07/23/20 12:01:00 EDT, Tablet, [facility] [place], [place] - [id number], 173, cm, 07/19/20 10:52:00 EDT, Hei... Start Date: 07/23/20 Stop Date: 07/18/21 Status: Ordered LifeLine LifeLine, See Instructions, # 1 each, Refills 0, Tot. Refills 0, Maintenance, use to call for help in the home as directed length of need 99 B20, F32.9, F11.2 Pt address/#: [address] [place] [address], [address]. [phone] Critical Signal... Start Date: 01/15/18 Status: Ordered [...] Date: 09/12/18 Status: Ordered No-nsting skin prep #80515808 No-nsting skin prep #82977865, See Instructions, # 1 bottle, Refills 11, Tot. Refills 11, Maintenance, Use as needed for ostomy care Dx: colostomy, 01/31/18 11:44:14 EDT, Compound Start Date: 01/31/18 Status: Ordered omeprazole 20 mg oral enteric coated capsule 1 capsule = 20 mg, By Mouth, Daily, PRN only if needed for acid reflux symptoms, # 90 capsule, 1 Refills, Maintenance, 07/23/20 12:01:00 EDT, EC Capsule, [facility] [place], [place] - [id number], 173, cm, 07/19/20 10:52:00 EDT, Height, 86.8, [...] tablet, 11 Refills, Maintenance, 08/02/20 17:47:00 EDT, [facility], 172, cm, 07/30/20 16:38:00 EDT, [...] tablet, 11 Refills, Maintenance, 06/22/20 20:22:00 EST, [facility], 173, cm, 04/12/20 11:01:00 EST, [...] mg sublingual film 2 film, Sublingual, Daily, [id number] MassPATchecked. dissolve under tongue, # 56 film, 0 Refills, Maintenance, 09/21/20 16:49:00 EDT, [place], [place] - [id number], 2 film SublingualDaily,x28 days,Instr:[id number]; MassPATchecked.... Start Date: 09/21/20 Stop Date: 10/19/20 Status: Ordered traZODone 100 mg oral tablet 1, tablet, By Mouth, Daily at bedtime, PRN, # 30 tablet, Refills 11, Tot. Refills 0, Maintenance, NEEDED FOR insomnia, 07/23/20 12:03:00 EDT, Route to Pharmacy Electronically, [facility], 173, cm, 07/19/20 10:52:00 EDT, Height, 86.8, kg, 04/07... Start Date: 07/23/20 Status: Ordered Triumeq oral tablet 1 tablet, By Mouth, Daily, # 30 tablet, 11 Refills, Maintenance, 07/23/20 12:00:00 EDT, Tablet, [facility] [place], [place] - [id number], 1 tablet By Mouth Daily,x30 days, 173, cm, 07/19/20 10:52:00 EDT, Height, 86.8, kg, 04/07/20 8:07:00 EST D... Start Date: 07/23/20 Stop Date: 07/18/21 Status: Ordered Unisolve adhesive remover #587564 Unisolve adhesive remover #767212, See Instructions, # 1 box, Refills 11, [...] inguinal pain(Confirmed) Active 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) Active *[id number] Care Partn krysten-Jesica Jeter(Confirmed) Active traumatic splenectomy [...]
--- OUTSIDE RECORDS SUMMARY | 2022-12-18 06:35 | XMS_ITS | Continuity of Care Document ---
Author Name Unknown Organization [facility] Address [address] [place] [address]- Care Team Providers Care Teletypesetter Operator Name Role Phone Noemi Ruffin MD, I Primary Care Physician [phone] Encounter [facility] Date(s): 11/09/20 - 12/09/[address] [address]- Allergies, Adverse Reactions, Alerts Substance Reaction Severity [...] VIS 10/03 4Result Comment: [12/07/2016] diluent LOT [id number] EXP 03/29/2018 5Result Comment: [07/18/2016] Liquid component: [id number], exp.: 05/2017 6Admin Note: VIS 12/13/2006 7Admin Note: vis 10/30/11 8Admin Note: vis [id number] 9Admin Note: done at [facility] this past march 10Admin Note: VIS GIVEN 2008- 11Admin Note: vis 11/25/06 Medications acetaminophen 500 mg oral tablet 1 tablet = 500 mg, By Mouth, 2 times a day, PRN for pain, take only if needed, # 60 tablet, 5 Refills, Maintenance, 04/17/19 10:49:00 EST, Tablet, [facility] [place], [place] -, 172, cm, 04/17/19 9:42:00 EST, Height, 83.7, kg, 04/04/19 0:17:00 E... Start Date: 04/17/19 Stop Date: 10/14/19 Status: Ordered albuterol CFC free 90 mcg/inh inhalation aerosol 2, puffs, Inhalation, 4 times a day, PRN, # 1 each, Refills 1, Tot. Refills 1, Soft Stop, 12/07/20 11:08:00 EDT, Route to Pharmacy Electronically, [id number], [place], [place] - [id number], 172, cm, 12/07/20... Start Date: 12/07/20 Stop [...] 5 Refills, Maintenance, 11/05/20 12:56:00 EDT, Tablet, [place], [place] - [id number], Partial fill uponpatient request if the prescription is for a schedu... Start Date: 11/05/20 Status: Ordered apixaban 2.5 mg oral tablet 1 tablet = 2.5 mg, By Mouth, 2 times a day, # 60 tablet, 0 Refills, Maintenance, 07/30/20 9:38:00 EDT, Tablet, [facility], Partial fill upon patient request [...] 07/14/19 Status: Ordered Talbert Elastic barrier strips #836086 Talbert Elastic barrier strips #877578, See Instructions, # 1 units, Refills 11, Tot. Refills 11, Maintenance, To remove appliance at every change Dx Ulcerative Colitis, 01/31/18 11:44:17 EDT, Compound Start Date: 01/31/18 Status: Ordered busPIRone 5 mg oral tablet 1, tablet, By Mouth, 3 times a day, FOR ANXIETY., # 270 tablet, Refills 1, Tot. Refills 0, Maintenance, 10/26/20 10:29:00 EDT, Route to Pharmacy Electronically, [facility], 172, cm, 07/30/20 16:38:00 EDT, Height, 89.7, kg, 07/29/20 7:42:00 EDT, D... Start Date: 10/26/20 Status: Ordered carvedilol 12.5 mg oral tablet 12.5 mg, 1, tablet, By Mouth, 2 times a day, increase in dose, # 60 tablet, Refills 11, Tot. Refills 11, Maintenance, 10/12/20 11:48:00 EDT, Route to Pharmacy Electronically, [facility] [place], [place] - [id number], Partial fill upon patient re... Start Date: 10/12/20 Stop Date: 10/07/21 Status: Ordered cetirizine 10 mg oral tablet 1 tablet, By Mouth, Daily, PRN NEEDED for allergy, # 90 tablet, 1 Refills, Maintenance, 10/26/2109:30:00 EDT, [facility], 172, cm, 07/30/20 16:38:00 EDT, Height, 89.7, kg, 07/29/20 7:42:00 EDT, Dry Weight Start Date: 10/26/20 Status: Ordered Colace Capsule 100 mg, 1, capsule, By Mouth, 2 times a day, Hold for loose stool, Refills 0, Maintenance, 208:50:00 EST, Partial fill upon patient request if the prescription is for a schedule II opioid drug. Start Date: 04/12/20 Status: Ordered coloplast #24343 pouch coloplast #01577 pouch, See Instructions, # 20 each, Refills 11, Tot. Refills 11, Maintenance, use as needed for ostomy care. 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 Fax to [facility] ([facility]), 06/25/19 12:46:00 EST, Compound Start Date: 06/25/19 Status: Ordered coloplast #48613 pouch coloplast #81216 pouch, See Instructions, # 40 each, Refills 11, Tot. Refills 11, Maintenance, use as needed for ostomy care. 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 Fax to Andre ([facility]). disp 40 coloplast pouche... Start Date: 08/05/19 Status: Ordered coloplast 04566 convex 1 piece coloplast 35701 convex 1 piece, See Instructions, # 1 box, Refills 11, Tot. Refills 11, Maintenance, use for ostomy changes Dx- uc/ileostomy, 07/25/18 11:04:40 EDT, Compound Start Date: 07/25/18 Status: Ordered coloplast bags #27145 coloplast bags #27321, See Instructions, # 20 each, Refills 11, Tot. Refills 11, Maintenance, use as needed for ostomy care Dx. ileostomy Z93.2, 07/14/19 10:56:00 EDT, Compound Start Date: 07/14/19 Status: Ordered Compression Stockings See Instructions, # 4 each, Refills 1, Tot. Refills 1, Maintenance, knee high compression hose 20-30mm 4 pair dx bilateral leg edema. R60.0 pls fax to [facility], 05/12/19 14:02:00 EST, Compound Start [...] 11 Refills, Maintenance, 07/23/20 12:00:00 EDT, Tablet, [place], [place] - [id number], 173, cm, 07/19/20 10:52:00 EDT, Height, 86.8, [...] 07/18/21 12:01:00 EDT, 07/23/20 12:01:00 EDT, Tablet, [place], [place] - [id number], 173, cm, 07/19/20 10:52:00 EDT, Hei... Start Date: 07/23/20 Stop Date: 07/18/21 Status: Ordered LifeLine LifeLine, See Instructions, # 1 each, Refills 0, Tot. Refills 0, Maintenance, use to call for help in the home as directed length of need 99 B20, F32.9, F11.2 Pt address/#: [address] [place] [address], [address]. [phone] Critical Signal... Start Date: 01/15/18 Status: Ordered [...] Date: 09/12/18 Status: Ordered No-nsting skin prep #05134894 No-nsting skin prep #00452873, See Instructions, # 1 bottle, Refills 11, Tot. Refills 11, Maintenance, Use as needed for ostomy care Dx: colostomy, 01/31/18 11:44:14 EDT, Compound Start Date: 01/31/18 Status: Ordered omeprazole 20 mg oral enteric coated capsule 1 capsule = 20 mg, By Mouth, Daily, PRN only if needed for acid reflux symptoms, # 90 capsule, 1 Refills, Maintenance, 07/23/20 12:01:00 EDT, EC Capsule, [facility] [id number], 173, cm, 07/19/20 10:52:00 EDT, Height, 86.8, [...] mg sublingual film 2 film, Sublingual, Daily, for 28 days, [id number] MassPATchecked. dissolve under tongue, # 56 film,0 Refills, Hard Stop 12/13/20 16:29:00 EDT, 11/15/20 16:29:00 EDT, [facility] [id number], 172, cm, 07/30/20 16:38:00 EDT, H... Start Date: 11/15/20 Stop Date: 12/13/20 Status: Ordered Suboxone 8 mg-2 mg sublingual film 2 film, Sublingual, Daily, [id number] MassPATchecked. dissolve under tongue, # 56 film, 0 Refills, Maintenance, 12/08/20 23:01:00 EDT, [facility] [id number], fill on 12/13/20-due date, 2 film Sublingual Daily,x28 days,Instr:X... Start Date: 12/08/20 Stop Date: 01/05/21 Status: Ordered traZODone 100 mg oral tablet 1, tablet, By Mouth, Daily at bedtime, PRN, # 30 tablet, Refills 11, Tot. Refills 0, Maintenance, NEEDED FOR insomnia, 07/23/20 12:03:00 EDT, Route to Pharmacy Electronically, [facility], 173, cm, 07/19/20 10:52:00 EDT, Height, 86.8, kg, 04/07... Start Date: 07/23/20 Status: Ordered Triumeq oral tablet 1 tablet, By Mouth, Daily, # 30 tablet, 11 Refills, Maintenance, 07/23/20 12:00:00 EDT, Tablet, [facility], [place] - [id number], 1 tablet By Mouth Daily,x30 days, 173, cm, 07/19/20 10:52:00 EDT, Height, 86.8, kg, 04/07/20 8:07:00 EST, D... Start Date: 07/23/20 Stop Date: 07/18/21 Status: Ordered Unisolve adhesive remover #199487 Unisolve adhesive remover #614714, See Instructions, # 1 box, Refills 11, [...] inguinal pain(Confirmed) Active 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) Active *[phone] Care Partn krysten-Jesica Jeter(Confirmed) Active traumatic splenectomy [...]
--- OUTSIDE RECORDS SUMMARY | 2022-12-18 06:35 | XMS_ITS | Continuity of Care Document ---
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 Barge Mounted Name Role Phone Noemi Ruffin MD, I Primary Care Physician Encounter [facility] [id number] Date(s): 03/08/21 - 04/07/[address] [address]- Attending Physician: AdmJorge A decker Admitting Physician: AdmtrJorge A Referring Physician: Admtr, [...] VIS 10/03 4Result Comment: [12/07/2016] diluent LOT [id number] EXP 03/29/2018 5Result Comment: [07/18/2016] Liquid component: [id number], exp.: 05/2017 6Admin Note: VIS 12/13/2006 7Admin Note: vis 10/30/11 8Admin Note: vis [id number] 9Admin Note: done at [facility] this past march 10Admin Note: VIS GIVEN 2008- 11Admin Note: vis 11/25/06 Medications acetaminophen 500 mg oral tablet 1 tablet, By Mouth, 2 times a day, PRN NEEDED FOR PAIN, TAKE ONLY IF needed, # 60 tablet, 5 Refills, [facility], 172, cm, 01/18/21 12:02:00 EDT, Height, 89.7, kg, 07/29/20 7:42:00 EDT, Dry Weight Start Date: 01/27/21 Status: Ordered Albuterol (Eqv-ProAir HFA) 90 mcg/inh inhalation aerosol 2 puffs, Inhalation, 4 times a day, PRN NEEDED FOR SHORTNESS OF BREATH OR FOR WHEEZING, # 25.5 Gm, 1 Refills, Maintenance, 02/21/21 9:52:00 EDT, [place], [place] - [id number], 2 puffs Inhalation 4 times a day,PRN: [...] 5 Refills, Maintenance, 11/05/20 12:56:00 EDT, Tablet, [place], [place] - [id number], Partial fill uponpatient request if the prescription [...] 07/14/19 Status: Ordered Talbert Elastic barrier strips #247826 Talbert Elastic barrier strips #596466, See Instructions, # 1 units, Refills 11, Tot. Refills 11, Maintenance, To remove appliance at every change Dx Ulcerative Colitis, 01/31/18 11:44:17 EDT, Compound Start Date: 01/31/18 Status: Ordered busPIRone 5 mg oral tablet 1, tablet, By Mouth, 3 times a day, FOR ANXIETY., # 270 tablet, Refills 1, Tot. Refills 0, Maintenance, 10/26/20 10:29:00 EDT, Route to Pharmacy Electronically, [facility], 172, cm, 07/30/20 16:38:00 EDT, Height, 89.7, kg, 07/29/20 7:42:00 EDT, D... Start Date: 10/26/20 Status: Ordered carvedilol 12.5 mg oral tablet 12.5 mg, 1, tablet, By Mouth, 2 times a day, increase in dose, # 60 tablet, Refills 11, Tot. Refills 11, Maintenance, 10/12/20 11:48:00 EDT, Route to Pharmacy Electronically, [facility] - [place], [place] - [id number], Partial fill upon patient re... Start Date: 10/12/20 Stop Date: 10/07/21 Status: Ordered cetirizine 10 mg oral tablet 1 tablet, By Mouth, Daily, PRN NEEDED for allergy, # 90 tablet, 1 Refills, Maintenance, 10/26/2109:30:00 EDT, [facility], 172, cm, 07/30/20 16:38:00 EDT, Height, 89.7, kg, 07/29/20 7:42:00 EDT, Dry Weight Start Date: 10/26/20 Status: Ordered Colace Capsule 100 mg, 1, capsule, By Mouth, 2 times a day, Hold for loose stool, Refills 0, Maintenance, 208:50:00 EST, Partial fill upon patient request if the prescription is for a schedule II opioid drug. Start Date: 04/12/20 Status: Ordered coloplast #80686 pouch coloplast #26237 pouch, See Instructions, # 20 each, Refills 11, Tot. Refills 11, Maintenance, use as needed for ostomy care. 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 Fax to [facility] ([facility]), 06/25/19 12:46:00 EST, Compound Start Date: 06/25/19 Status: Ordered coloplast #86528 pouch coloplast #15297 pouch, See Instructions, # 40 each, Refills 11, Tot. Refills 11, Maintenance, use as needed for ostomy care. 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 Fax to Andre ([facility]). disp 40 coloplast pouche... Start Date: 08/05/19 Status: Ordered coloplast 88124 convex 1 piece coloplast 47964 convex 1 piece, See Instructions, # 1 box, Refills 11, Tot. Refills 11, Maintenance, use for ostomy changes Dx- uc/ileostomy, 07/25/18 11:04:40 EDT, Compound Start Date: 07/25/18 Status: Ordered coloplast bags #57367 coloplast bags #48797, See Instructions, # 20 each, Refills 11, Tot. Refills 11, Maintenance, use as needed for ostomy care Dx. ileostomy Z93.2, 07/14/19 10:56:00 EDT, Compound Start Date: 07/14/19 Status: Ordered Compression Stockings See Instructions, # 4 each, Refills 1, Tot. Refills 1, Maintenance, knee high compression hose 20-30mm 4 pair dx bilateral leg edema. R60.0 pls fax to [facility] [address] 05/12/19 14:02:00 EST, Compound Start Date: 05/12/19 [...] 11 Refills, Maintenance, 07/23/20 12:00:00 EDT, Tablet, [facility] [id number], 173, cm, 07/19/20 10:52:00 EDT, Height, 86.8, kg, 04/07/20 8:07:00 EST, Dry Weight Start Date: 07/23/20 Stop Date: 07/18/21 Status: Ordered hydrochlorothiazide 12.5 mg oral tablet 1 tablet = 12.5 mg, By Mouth, Daily, # 30 tablet, 11 Refills, Maintenance, 01/04/21 11:11:00 EDT, Tablet, [facility] [id number], Partial fill upon patient request if the [...] 07/18/21 12:01:00 EDT, 07/23/20 12:01:00 EDT, Tablet, [place], [place] - [id number], 173, cm, 07/19/20 10:52:00 EDT, Hei... Start Date: 07/23/20 Stop Date: 07/18/21 Status: Ordered LifeLine LifeLine, See Instructions, # 1 each, Refills 0, Tot. Refills 0, Maintenance, use to call for help in the home as directed length of need 99 B20, F32.9, F11.2 Pt address/#: [address] [place] [address], [address]. [phone] Critical Signal... Start Date: 01/15/18 Status: Ordered [...] Date: 09/12/18 Status: Ordered No-nsting skin prep #19823691 No-nsting skin prep #38475217, See Instructions, # 1 bottle, Refills 11, Tot. Refills 11, Maintenance, Use as needed for ostomy care Dx: colostomy, 01/31/18 11:44:14 EDT, Compound Start Date: 01/31/18 Status: Ordered omeprazole 20 mg oral enteric coated capsule 1 capsule = 20 mg, By Mouth, Daily, PRN only if needed for acid reflux symptoms, # 90 capsule, 0 Refills, Maintenance, 01/21/21 6:58:00 EDT, EC Capsule, [facility], 172, cm, 01/18/21 12:02:00 EDT, Height, [...] tablet, 11 Refills, Maintenance, 08/02/20 17:47:00 EDT, [facility], 172, cm, 07/30/20 16:38:00 EDT, [...] tablet, 11 Refills, Maintenance, 06/22/20 20:22:00 EST, [facility], 173, cm, 04/12/20 11:01:00 EST, [...] mg sublingual film 3 film, Sublingual, Daily, [id number] MassPATchecked. dissolve under tongue, # 84 film, 0 Refills, Maintenance, 04/05/21 13:12:00 EST, [place], [place] - [id number], increase in dose from 16 mg to 24 mg daily, 3 film Sublingual Jennifer... Start Date: 04/05/21 Stop Date: 05/03/21 Status: Ordered traZODone 100 mg oral tablet 1, tablet, By Mouth, Daily at bedtime, PRN, # 30 tablet, Refills 11, Tot. Refills 0, Maintenance, NEEDED FOR insomnia, 07/23/20 12:03:00 EDT, Route to Pharmacy Electronically, [facility], 173, cm, 07/19/20 10:52:00 EDT, Height, 86.8, kg, 04/07... Start Date: 07/23/20 Status: Ordered Triumeq oral tablet 1 tablet, By Mouth, Daily, # 30 tablet, 11 Refills, Maintenance, 07/23/20 12:00:00 EDT, Tablet, [facility] [place], [place] - [id number], 1 tablet By Mouth Daily,x30 days, 173, cm, 07/19/20 10:52:00 EDT, Height, 86.8, kg, 04/07/20 8:07:00 EST, D... Start Date: 07/23/20 Stop Date: 07/18/21 Status: Ordered Unisolve adhesive remover #037506 Unisolve adhesive remover #899225, See Instructions, # 1 box, Refills 11, [...] inguinal pain(Confirmed) Active 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) Active *[phone] Care Partn er-Jesica Jeter(Confirmed) Active traumatic splenectomy [...]
--- OUTSIDE RECORDS SUMMARY | 2022-12-18 06:35 | XMS_ITS | Continuity of Care Document ---
Author Name Unknown Organization [facility] ter Address [address] [place] [id number]- Care Team Providers Care Etcher Aircraft Name Role Phone Noemi Ruffin MD, I Primary Care Physician Encounter [facility] Date(s): 07/15/20 - 08/14/[address] [id number] Attending Physician: Jorge A Sutton Admitting Physician: [...] VIS 10/03 3Result Comment: [12/07/2016] diluent LOT [id number] EXP 03/29/2018 4Result Comment: [07/18/2016] Liquid component: [id number], exp.: 05/2017 5Admin Note: VIS 12/13/2006 6Admin Note: vis 10/30/11 7Admin Note: vis 1254-3385 8Admin Note: done at [facility] this past march 9Admin Note: VIS GIVEN 2008- 10Admin Note: vis 11/25/06 Medications acetaminophen 500 mg oral tablet 1 tablet = 500 mg, By Mouth, 2 times a day, PRN for pain, take only if needed, # 60 tablet, 5 Refills, Maintenance, 04/17/19 10:49:00 EST, Tablet, [facility] - -, 172, cm, 04/17/19 9:42:00 EST, Height, 83.7, kg, 04/04/19 0:17:00 E... Start Date: 04/17/19 Stop Date: 10/14/19 Status: Ordered albuterol CFC free 90 mcg/inh inhalation aerosol See Instructions, # 18 Gm, Refills 5 Tot. Refills 5, INHALE 2 PUFFS BY MOUTH INTO THE lungs 4 (FOUR) TIMES DAILY NEEDED FOR SHORTNESS OF BREATH OR FOR WHEEZING, [facility] - - Start Date: 01/21/19 Status: Ordered Alcohol Pads See Instructions, # 50 each, Refills 11, Tot. Refills 11, Maintenance, E11.9 check BG daily, 12/05/18 7:49:59 EDT, Compound Start Date: 12/05/18 Status: Ordered amLODIPine 5 mg oral tablet 1 tablet, By Mouth, Daily, # 30 tablet, 11 Refills, Maintenance, 06/22/20 20:22:00 EST, [facility], 173, cm, 04/12/20 11:01:00 EST, Height, 86.8, kg, 04/07/20 8:07:00 EST, Dry Weight Start Date: 06/22/20 Status: Ordered apixaban 2.5 mg oral tablet 1 tablet = 2.5 mg, By Mouth, 2 times a day, # 60 tablet, 0 Refills, Maintenance, 07/30/20 9:38:00 EDT, Tablet, [facility], Partial fill upon patient [...] 07/14/19 Status: Ordered Talbert Elastic barrier strips #491424 Talbert Elastic barrier strips #723734, See Instructions, # 1 units, Refills 11, Tot. Refills 11, Maintenance, To remove appliance at every change Dx Ulcerative Colitis, 01/31/18 11:44:17 EDT, Compound Start Date: 01/31/18 Status: Ordered busPIRone 5 mg oral tablet 5 mg, 1, tablet, By Mouth, 3 times a day, for anxiety, # 270 tablet, Refills 1, Tot. Refills 1, Maintenance, 04/19/20 11:34:00 EST, Route to Pharmacy Electronically, [facility] [id number], 173, cm, 04/12/20 11:01:00 EST, Heigh... Start Date: 04/19/20 Stop Date: 11/15/20 Status: Ordered carvedilol 6.25 mg oral tablet 6.25 mg, 1, tablet, By Mouth, 2 times a day, # 60 tablet, Refills 11, Tot. Refills 11, Maintenance,06/22/20 21:17:00 EST, Route to Pharmacy Electronically, [facility] [id number], 173, cm, 04/12/20 11:01:00 EST, Height, 86.8,... Start Date: 06/22/20 Stop Date: 06/17/21 Status: Ordered cetirizine 10 mg oral tablet 1 tablet = 10 mg, By Mouth, Daily, PRN if needed for allergy symptoms, do not blister pack, # 90 tablet, 1 Refills, Maintenance, 04/19/20 11:34:00 EST, Tablet, [facility] [id number], 173, cm, 04/12/20 11:01:00 EST, Height, 86.... Start Date: 04/19/20 Stop Date: 10/16/20 Status: Ordered Colace Capsule 100 mg, 1, capsule, By Mouth, 2 times a day, Hold for loose stool, Refills 0, Maintenance, :50:00 EST, Partial fill upon patient request if the prescription is for a schedule II opioid drug. Start Date: 04/12/20 Status: Ordered coloplast #92057 pouch coloplast #80761 pouch, See Instructions, # 20 each, Refills 11, Tot. Refills 11, Maintenance, use as needed for ostomy care. 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 Fax to [facility], 06/25/19 12:46:00 EST, Compound Start Date: 06/25/19 Status: Ordered coloplast #41553 pouch coloplast #97142 pouch, See Instructions, # 40 each, Refills 11, Tot. Refills 11, Maintenance, use as needed for ostomy care. 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 Fax to [facility]). disp 40 coloplast pouche... Start Date: 08/05/19 Status: Ordered coloplast 67357 convex 1 piece coloplast 93884 convex 1 piece, See Instructions, # 1 box, Refills 11, Tot. Refills 11, Maintenance, use for ostomy changes Dx- uc/ileostomy, 07/25/18 11:04:40 EDT, Compound Start Date: 07/25/18 Status: Ordered coloplast bags #96296 coloplast bags #27956, See Instructions, # 20 each, Refills 11, Tot. Refills 11, Maintenance, use as needed for ostomy care Dx. ileostomy Z93.2, 07/14/19 10:56:00 EDT, Compound Start Date: 07/14/19 Status: Ordered Compression Stockings See Instructions, # 4 each, Refills 1, Tot. Refills 1, Maintenance, knee high compression hose 20-30mm 4 pair dx bilateral leg edema. R60.0 pls fax to [facility], 05/12/19 14:02:00 EST, Compound Start Date: [...] 11 Refills, Maintenance, 07/23/20 12:00:00 EDT, Tablet, [place], [place] - [id number], 173, cm, 07/19/20 10:52:00 EDT, Height, 86.8, [...] 07/18/21 12:01:00 EDT, 07/23/20 12:01:00 EDT, Tablet, [facility] - - [id number], 173, cm, 07/19/20 10:52:00 EDT, Hei... Start Date: 07/23/20 Stop Date: 07/18/21 Status: Ordered LifeLine LifeLine, See Instructions, # 1 each, Refills 0, Tot. Refills 0, Maintenance, use to call for help in the home as directed length of need 99 B20, F32.9, F11.2 Pt address/#: [address] [place] [address], [address]. [phone] Critical Signal... Start Date: 01/15/18 Status: Ordered [...] Date: 09/12/18 Status: Ordered No-nsting skin prep #[id number] No-nsting skin prep #[id number], See Instructions, # 1 bottle, Refills 11, Tot. Refills 11, Maintenance, Use as needed for ostomy care Dx: colostomy, 01/31/18 11:44:14 EDT, Compound Start Date: 01/31/18 Status: Ordered omeprazole 20 mg oral enteric coated capsule 1 capsule = 20 mg, By Mouth, Daily, PRN only if needed for acid reflux symptoms, # 90 capsule, 1 Refills, Maintenance, 07/23/20 12:01:00 EDT, EC Capsule, [facility] - - [id number], 173, cm, 07/19/20 10:52:00 EDT, Height, 86.8, [...] tablet, 11 Refills, Maintenance, 08/02/20 17:47:00 EDT, [facility], 172, cm, 07/30/20 16:38:00 EDT, [...] tablet, 11 Refills, Maintenance, 06/22/20 20:22:00 EST, [facility], 173, cm, 04/12/20 11:01:00 EST, [...] mg sublingual film 1.5 film, Sublingual, Daily, [id number] MassPATchecked. dissolve under tongue, # 42 film, 0 Refills,Maintenance, 07/19/20 11:29:00 EDT, [place], [place] - [id number], 1.5 film Sublingual Daily,x28 days,Instr:[id number]; MassPATchec... Start Date: 07/19/20 Stop Date: 08/16/20 Status: Ordered traZODone 100 mg oral tablet 1, tablet, By Mouth, Daily at bedtime, PRN, # 30 tablet, Refills 11, Tot. Refills 0, Maintenance, NEEDED FOR insomnia, 07/23/20 12:03:00 EDT, Route to Pharmacy Electronically, [facility], 173, cm, 07/19/20 10:52:00 EDT, Height, 86.8, kg, 04/07... Start Date: 07/23/20 Status: Ordered Triumeq oral tablet 1 tablet, By Mouth, Daily, # 30 tablet, 11 Refills, Maintenance, 07/23/20 12:00:00 EDT, Tablet, [facility] - - [id number], 1 tablet By Mouth Daily,x30 days, 173, cm, 07/19/20 10:52:00 EDT, Height, 86.8, kg, 04/07/20 8:07:00 EST, D... Start Date: 07/23/20 Stop Date: 07/18/21 Status: Ordered Unisolve adhesive remover #140507 Unisolve adhesive remover #[id number], See Instructions, # 1 box, Refills 11, [...] inguinal pain(Confirmed) Active 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) Active *[id number] Care Partn er-Jesica Jeter(Confirmed) Active traumatic splenectomy [...]
--- OUTSIDE RECORDS SUMMARY | 2022-12-18 06:35 | XMS_ITS | Continuity of Care Document ---
Author Name Unknown Organization [facility] Address [address] [place] [address]- Care Team Providers Care Sample Wrapper Name Role Phone Noemi Ruffin MD, I Primary Care Physician [phone] Encounter [facility] Date(s): 11/28/19 - 12/28/[address] [address]- [facility] Attending Physician: Jorge A Sutton Admitting [...] VIS 10/03 3Result Comment: [12/07/2016] diluent LOT [id number] EXP 03/29/2018 4Result Comment: [07/18/2016] Liquid component: [id number], exp.: 05/2017 5Admin Note: VIS 12/13/2006 6Admin Note: vis 10/30/11 7Admin Note: vis [id number] 8Admin Note: done at [facility] this past march 9Admin Note: VIS GIVEN 2008- 10Admin Note: vis 11/25/06 Medications acetaminophen 500 mg oral tablet 1 tablet = 500 mg, By Mouth, 2 times a day, PRN for pain, take only if needed, # 60 tablet, 5 Refills, Maintenance, 04/17/19 10:49:00 EST, Tablet, [place], [place] -, 172, cm, 04/17/19 9:42:00 EST, Height, 83.7, kg, 04/04/19 0:17:00 E... Start Date: 04/17/19 Stop Date: 10/14/19 Status: Ordered albuterol CFC free 90 mcg/inh inhalation aerosol See Instructions, # 18 Gm, Refills 5 Tot. Refills 5, INHALE 2 PUFFS BY MOUTH INTO THE lungs 4 (FOUR) TIMES DAILY NEEDED FOR SHORTNESS OF BREATH OR FOR WHEEZING, [place], [place] - Start Date: 01/21/19 Status: Ordered Alcohol Pads See Instructions, # 50 each, Refills 11, Tot. Refills 11, Maintenance, E11.9 check BG daily, 12/05/18 7:49:59 EDT, Compound Start Date: 12/05/18 Status: Ordered amLODIPine 5 mg oral tablet 5 mg, 1, tablet, By Mouth, Daily, # 30 tablet, Refills 11, Tot. Refills 11, Maintenance, 06/16/19 12:27:00 EST, Route to Pharmacy Electronically, [place], [place] -, 172, cm, 06/16/19 11:20:00 EST, [...] 07/14/19 Status: Ordered Talbert Elastic barrier strips #324811 Talbert Elastic barrier strips #310026, See Instructions, # 1 units, Refills 11, Tot. Refills 11, Maintenance, To remove appliance at every change Dx Ulcerative Colitis, 01/31/18 11:44:17 EDT, Compound Start Date: 01/31/18 Status: Ordered busPIRone 5 mg oral tablet 5 mg, 1, tablet, By Mouth, 3 times a day, for anxiety, # 90 tablet, Refills 11, Tot. Refills 11, Maintenance, 04/17/19 10:43:00 EST, Route to Pharmacy Electronically, [place], [place] -, 172, cm, 04/17/19 9:42:00 EST, Height, 83.7, kg... Start Date: 04/17/19 Stop Date: 04/11/20 Status: Ordered carvedilol 6.25 mg oral tablet 6.25 mg, 1, tablet, By Mouth, 2 times a day, # 60 tablet, Refills 11, Tot. Refills 11, Maintenance,06/16/19 12:25:00 EST, Route to Pharmacy Electronically, [place], [place] -, 172, cm, 06/16/19 11:20:00 EST, [...] 04/17/19 10:43:00 EST, Route to Pharmacy Electronically, [place], [place] -, 172, cm, 04/17/19 9:42:00 EST, Height, 83.7, kg, 04/04/19 0:17:... Start Date: 04/17/19 Stop Date: 04/11/20 Status: Ordered Citrucel 500 mg oral tablet 2 tablet = 1,000 mg, By Mouth, Daily, for 60 days, with plenty of water, # 120 tablet, 1 Refills, Acute 02/12/20 16:54:00 EDT, 10/15/19 16:54:00 EDT, [place], [place] -, 172, cm, 06/25/19 10:26:00 EST, Height, 83.7, kg, 04/04/19 0:17:... Start Date: 10/15/19 Stop Date: 02/12/20 Status: Ordered coloplast #70971 pouch coloplast #82459 pouch, See Instructions, # 20 each, Refills 11, Tot. Refills 11, Maintenance, use as needed for ostomy care. 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 Fax to [facility]), 06/25/19 12:46:00 EST, Compound Start Date: 06/25/19 Status: Ordered coloplast #50721 pouch coloplast #97689 pouch, See Instructions, # 40 each, Refills 11, Tot. Refills 11, Maintenance, use as needed for ostomy care. 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 Fax to [facility]). disp 40 coloplast pouche... Start Date: 08/05/19 Status: Ordered coloplast 87446 convex 1 piece coloplast 02612 convex 1 piece, See Instructions, # 1 box, Refills 11, Tot. Refills 11, Maintenance, use for ostomy changes Dx- uc/ileostomy, 07/25/18 11:04:40 EDT, Compound Start Date: 07/25/18 Status: Ordered coloplast bags #39316 coloplast bags #36891, See Instructions, # 20 each, Refills 11, [...] 11 Refills, Maintenance, 07/29/19 11:40:00 EDT, Tablet, [facility] [place], [place] -, 172, cm, 06/25/19 10:26:00 EST, Height, 83.7, kg, 04/04/19 0:17:00 EST, Dry Weight Start Date: 07/29/19 Stop Date: 07/23/20 Status: Ordered hydrOXYzine hydrochloride 10 mg oral tablet 2 tablet = 20 mg, By Mouth, 3 times a day, PRN for itching, # 80 tablet, 0 Refills, Maintenance, 06/25/19 11:37:00 EST, Tablet, [place], [place] -, 172, cm, 06/25/19 10:26:00 EST, [...] 01/02/19 10:34:25 EDT, Route to Pharmacy Electronically, [id number], [place]... Start Date: 01/02/19 Stop Date: 07/01/19 Status: Ordered Januvia 50 mg oral tablet 1 tablet = 50 mg, By Mouth, Daily before breakfast, for diabetes, # 30 tablet, 11 Refills, Maintenance, 04/17/19 10:46:00 EST, Tablet, [place], [place] -, 172, cm, 04/17/19 9:42:00 EST, Height, 83.7, kg, 04/04/19 0:17:00 EST, Dry Weight Start Date: 04/17/19 Stop Date: 04/11/20 Status: Ordered LifeLine LifeLine, See Instructions, # 1 each, Refills 0, Tot. Refills 0, Maintenance, use to call for help in the home as directed length of need 99 B20, F32.9, F11.2 Pt address/#: [address] [place] [address], [address]. [phone] Critical Signal... Start Date: 01/15/18 Status: Ordered [...] Date: 09/12/18 Status: Ordered No-nsting skin prep #[id number] No-nsting skin prep #00805602, See Instructions, # 1 bottle, Refills 11, Tot. Refills 11, Maintenance, Use as needed for ostomy care Dx: colostomy, 01/31/18 11:44:14 EDT, Compound Start Date: 01/31/18 Status: Ordered omeprazole 20 mg oral enteric coated capsule 1 capsule = 20 mg, By Mouth, Daily, PRN only if needed for acid reflux symptoms, # 30 capsule, 5 Refills, Maintenance, 04/17/19 10:49:00 EST, EC Capsule, [place], [place] -, 172, cm,04/17/19 9:42:00 EST, Height, [...] tablet, 5 Refills, Maintenance, 07/19/19 13:20:00 EDT, [place], [place] -, 172, cm, 06/25/19 10:26:00 EST, [...] 11 Refills, Maintenance, 06/16/19 12:26:00 EST, Tablet, [facility] [place], [place] -, 172, cm, 06/16/19 11:20:00 EST, [...] mg sublingual film 3 each, Sublingual, Daily, [id number], MassPATchecked. dissolve under tongue (ok to divide dose 3x/dif helps w/ pain), # 84 film, 0 Refills, Maintenance, 11/25/19 11:54:00 EDT, [place], [place] - [id number], 3 each Sublingual Daily,x... Start Date: 11/25/19 Stop Date: 12/23/19 Status: Ordered traZODone 100 mg oral tablet 1, tablet, By Mouth, Daily at bedtime, PRN, # 30 tablet, Refills 11, Tot. Refills 0, Maintenance, NEEDED FOR insomnia, 07/19/19 17:09:00 EDT, Route to Pharmacy Electronically, [facility], 172, cm, 06/25/19 10:26:00 EST, Height, 83.7, kg, 04/04... Start Date: 07/19/19 Status: Ordered Triumeq oral tablet 1 tablet, By Mouth, Daily, # 30 tablet, 11 Refills, Maintenance, 07/29/19 11:40:00 EDT, Tablet, [place], [place] -, 1 tablet By Mouth Daily,x30 days, 172, cm, 06/25/19 10:26:00 EST, Height, 83.7, kg, 04/04/19 0:17:00 EST, Dry Weight Start Date: 07/29/19 Stop Date: 07/23/20 Status: Ordered Unisolve adhesive remover #191606 Unisolve adhesive remover #263649, See Instructions, # 1 box, Refills 11, Tot. Refills 11, Maintenance, To remove appliance at every change Dx Ulcerative Colitis, 01/31/18 11:44:15 EDT, Compound Start Date: 01/31/18 Status: Ordered Voltaren 1% topical gel See Instructions, PRN pain R knee, apply to painful knees 1-2x/day maximum; wash hands after, # 100Gm, 3 Refills, Maintenance, 06/25/19 11:49:00 EST, Gel, [place], [place] -, apply to painful knees 1-2x/day [...] 06/25/19 11:36:00 EST, Tablet, [facility] [place], [place] -, 172, cm, 06/25/19 10:26:00 EST, [...] inguinal pain(Confirmed) Active 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) Active *[id number]- [facility] 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
--- OUTSIDE RECORDS SUMMARY | 2022-12-18 06:35 | XMS_ITS | Continuity of Care Document ---
Author Name Unknown Organization [facility] Address [address] [place] [address]- Care Team Providers Care Permit Review Assistant Name Role Phone Noemi Ruffin MD, I Primary Care Physician [facility] Date([facility]): 12/01/19 - 12/31/[address] [address]- [facility] Allergies, Adverse Reactions, Alerts Substance Reaction Severity [...] VIS 10/03 3Result Comment: [12/07/2016] diluent LOT [id number] EXP 03/29/2018 4Result Comment: [07/18/2016] Liquid component: [id number], exp.: 05/2017 5Admin Note: VIS 12/13/2006 6Admin Note: vis 10/30/11 7Admin Note: vis [id number] 8Admin Note: done at [facility] this past march 9Admin Note: VIS GIVEN 2008- 10Admin Note: vis 11/25/06 Medications acetaminophen 500 mg oral tablet 1 tablet = 500 mg, By Mouth, 2 times a day, PRN for pain, take only if needed, # 60 tablet, 5 Refills, Maintenance, 04/17/19 10:49:00 EST, Tablet, [place], [place] -, 172, cm, 04/17/19 9:42:00 EST, Height, 83.7, kg, 04/04/19 0:17:00 E... Start Date: 04/17/19 Stop Date: 10/14/19 Status: Ordered albuterol CFC free 90 mcg/inh inhalation aerosol See Instructions, # 18 Gm, Refills 5 Tot. Refills 5, INHALE 2 PUFFS BY MOUTH INTO THE lungs 4 (FOUR) TIMES DAILY NEEDED FOR SHORTNESS OF BREATH OR FOR WHEEZING, [place], [place] - Start Date: 01/21/19 Status: Ordered Alcohol Pads See Instructions, # 50 each, Refills 11, Tot. Refills 11, Maintenance, E11.9 check BG daily, 12/05/18 7:49:59 EDT, Compound Start Date: 12/05/18 Status: Ordered amLODIPine 5 mg oral tablet 5 mg, 1, tablet, By Mouth, Daily, # 30 tablet, Refills 11, Tot. Refills 11, Maintenance, 06/16/19 12:27:00 EST, Route to Pharmacy Electronically, [facility] [place], [place] -, 172, cm, 06/16/19 11:20:00 EST, [...] 07/14/19 Status: Ordered Talbert Elastic barrier strips #896905 Talbert Elastic barrier strips #[id number], See Instructions, # 1 units, Refills 11, Tot. Refills 11, Maintenance, To remove appliance at every change Dx Ulcerative Colitis, 01/31/18 11:44:17 EDT, Compound Start Date: 01/31/18 Status: Ordered busPIRone 5 mg oral tablet 5 mg, 1, tablet, By Mouth, 3 times a day, for anxiety, # 90 tablet, Refills 11, Tot. Refills 11, Maintenance, 04/17/19 10:43:00 EST, Route to Pharmacy Electronically, [place], [place] -, 172, cm, 04/17/19 9:42:00 EST, Height, 83.7, kg... Start Date: 04/17/19 Stop Date: 04/11/20 Status: Ordered carvedilol 6.25 mg oral tablet 6.25 mg, 1, tablet, By Mouth, 2 times a day, # 60 tablet, Refills 11, Tot. Refills 11, Maintenance,06/16/19 12:25:00 EST, Route to Pharmacy Electronically, [place], [place] -, 172, cm, 06/16/19 11:20:00 EST, [...] 04/17/19 10:43:00 EST, Route to Pharmacy Electronically, [place], [place] -, 172, cm, 04/17/19 9:42:00 EST, Height, 83.7, kg, 04/04/19 0:17:... Start Date: 04/17/19 Stop Date: 04/11/20 Status: Ordered Citrucel 500 mg oral tablet 2 tablet = 1,000 mg, By Mouth, Daily, for 60 days, with plenty of water, # 120 tablet, 1 Refills, Acute 02/12/20 16:54:00 EDT, 10/15/19 16:54:00 EDT, [facility], 172, cm, 06/25/19 10:26:00 EST, Height, 83.7, kg, 04/04/19 0:17:... Start Date: 10/15/19 Stop Date: 02/12/20 Status: Ordered coloplast #49536 pouch coloplast #41504 pouch, See Instructions, # 20 each, Refills 11, Tot. Refills 11, Maintenance, use as needed for ostomy care. 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 Fax to [facility]), 06/25/19 12:46:00 EST, Compound Start Date: 06/25/19 Status: Ordered coloplast #95004 pouch coloplast #11987 pouch, See Instructions, # 40 each, Refills 11, Tot. Refills 11, Maintenance, use as needed for ostomy care. 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 Fax to [facility]). disp 40 coloplast pouche... Start Date: 08/05/19 Status: Ordered coloplast 35845 convex 1 piece coloplast 49357 convex 1 piece, See Instructions, # 1 box, Refills 11, Tot. Refills 11, Maintenance, use for ostomy changes Dx- uc/ileostomy, 07/25/18 11:04:40 EDT, Compound Start Date: 07/25/18 Status: Ordered coloplast bags #28450 coloplast bags #11545, See Instructions, # 20 each, Refills 11, Tot. Refills 11, Maintenance, use as needed for ostomy care Dx. ileostomy Z93.2, 07/14/19 10:56:00 EDT, Compound Start Date: 07/14/19 Status: Ordered Compression Stockings See Instructions, # 4 each, Refills 1, Tot. Refills 1, Maintenance, knee high compression hose 20-30mm 4 pair dx bilateral leg edema. R60.0 pls fax to [facility], 05/12/19 14:02:00 EST, Compound [...] 11 Refills, Maintenance, 07/29/19 11:40:00 EDT, Tablet, [facility] [place], [place] -, 172, cm, 06/25/19 10:26:00 EST, Height, 83.7, kg, 04/04/19 0:17:00 EST, Dry Weight Start Date: 07/29/19 Stop Date: 07/23/20 Status: Ordered hydrOXYzine hydrochloride 10 mg oral tablet 2 tablet = 20 mg, By Mouth, 3 times a day, PRN for itching, # 80 tablet, 0 Refills, Maintenance, 06/25/19 11:37:00 EST, Tablet, [place], [place] -, 172, cm, 06/25/19 10:26:00 EST, [...] 01/02/19 10:34:25 EDT, Route to Pharmacy Electronically, [id number]... Start Date: 01/02/19 Stop Date: 07/01/19 Status: Ordered Januvia 50 mg oral tablet 1 tablet = 50 mg, By Mouth, Daily before breakfast, for diabetes, # 30 tablet, 11 Refills, Maintenance, 04/17/19 10:46:00 EST, Tablet, [place], [place] -, 172, cm, 04/17/19 9:42:00 EST, Height, 83.7, kg, 04/04/19 0:17:00 EST, Dry Weight Start Date: 04/17/19 Stop Date: 04/11/20 Status: Ordered LifeLine LifeLine, See Instructions, # 1 each, Refills 0, Tot. Refills 0, Maintenance, use to call for help in the home as directed length of need 99 B20, F32.9, F11.2 Pt address/#: [address] [place] [id number], [address]. [phone] Critical Signal... Start Date: 01/15/18 Status: Ordered [...] Date: 09/12/18 Status: Ordered No-nsting skin prep #08230261 No-nsting skin prep #[id number], See Instructions, # 1 bottle, Refills 11, Tot. Refills 11, Maintenance, Use as needed for ostomy care Dx: colostomy, 01/31/18 11:44:14 EDT, Compound Start Date: 01/31/18 Status: Ordered omeprazole 20 mg oral enteric coated capsule 1 capsule = 20 mg, By Mouth, Daily, PRN only if needed for acid reflux symptoms, # 30 capsule, 5 Refills, Maintenance, 04/17/19 10:49:00 EST, EC Capsule, [place], [place] -, 172, cm,04/17/19 9:42:00 EST, Height, [...] tablet, 5 Refills, Maintenance, 07/19/19 13:20:00 EDT, [facility], 172, cm, 06/25/19 10:26:00 EST, [...] 11 Refills, Maintenance, 06/16/19 12:26:00 EST, Tablet, [facility] [place], [place] -, 172, cm, 06/16/19 11:20:00 EST, [...] mg sublingual film 3 each, Sublingual, Daily, [id number], MassPATchecked. dissolve under tongue (ok to divide dose 3x/dif helps w/ pain), # 84 film, 0 Refills, Maintenance, 11/25/19 11:54:00 EDT, [place], [place] - [id number], 3 each Sublingual Daily,x... Start Date: 11/25/19 Stop Date: 12/23/19 Status: Ordered traZODone 100 mg oral tablet 1, tablet, By Mouth, Daily at bedtime, PRN, # 30 tablet, Refills 11, Tot. Refills 0, Maintenance, NEEDED FOR insomnia, 07/19/19 17:09:00 EDT, Route to Pharmacy Electronically, [facility], 172, cm, 06/25/19 10:26:00 EST, Height, 83.7, kg, 04/04... Start Date: 07/19/19 Status: Ordered Triumeq oral tablet 1 tablet, By Mouth, Daily, # 30 tablet, 11 Refills, Maintenance, 07/29/19 11:40:00 EDT, Tablet, [place], [place] -, 1 tablet By Mouth Daily,x30 days, 172, cm, 06/25/19 10:26:00 EST, Height, 83.7, kg, 04/04/19 0:17:00 EST, Dry Weight Start Date: 07/29/19 Stop Date: 07/23/20 Status: Ordered Unisolve adhesive remover #[id number] Unisolve adhesive remover #766777, See Instructions, # 1 box, Refills 11, Tot. Refills 11, Maintenance, To remove appliance at every change Dx Ulcerative Colitis, 01/31/18 11:44:15 EDT, Compound Start Date: 01/31/18 Status: Ordered Voltaren 1% topical gel See Instructions, PRN pain R knee, apply to painful knees 1-2x/day maximum; wash hands after, # 100Gm, 3 Refills, Maintenance, 06/25/19 11:49:00 EST, Gel, [place], [place] -, apply to painful knees 1-2x/day maximum; wash hands after,... Start Date: 06/25/19 Status: Ordered XL pull-ups XL pull-ups, See Instructions, # 150 each, Refills 11, Tot. Refills 11, Maintenance, dx urge urinary incontinence (N39.41) use 5/day length of need 99 ht 172cm, wt 80kg, bmi 27., 03/24/20 13:10:00 EDT, Supply Start Date: 07/22/19 Status: Ordered Zofran 4 mg oral tablet 1 tablet = 4 mg, By Mouth, Every 8 hours, # 18 tablet, 0 Refills, Maintenance, 06/25/19 11:36:00 EST, Tablet, [facility] [place], [place] -, 172, cm, 06/25/19 10:26:00 EST, [...] inguinal pain(Confirmed) Active 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) Active *[id number]- Care Part ner Jacky Sandhu(Confirmed) Active traumatic [...]
--- OUTSIDE RECORDS SUMMARY | 2022-12-18 06:35 | XMS_ITS | Continuity of Care Document ---
Author Name Unknown Organization [facility] Address [address] [place] [address]- Care Team Providers Care Frame Table Operator Helper Name Role Phone Laly FERNANDEZ, Noemi Marshall Primary Care Physician [facility] Date[facility]): 11/[facility]19 - 12/06/[address] [address]- [facility] Allergies, Adverse Reactions, Alerts Substance Reaction [...] VIS 10/03 3Result Comment: [12/07/2016] diluent LOT [id number] EXP 03/29/2018 4Result Comment: [07/18/2016] Liquid component: [id number], exp.: 05/2017 5Admin Note: VIS 12/13/2006 6Admin Note: vis 10/30/11 7Admin Note: vis [id number] 8Admin Note: done at [facility] this past march 9Admin Note: VIS GIVEN 2008- 10Admin Note: vis 11/25/06 Medications acetaminophen 500 mg oral tablet 1 tablet = 500 mg, By Mouth, 2 times a day, PRN for pain, take only if needed, # 60 tablet, 5 Refills, Maintenance, 04/17/19 10:49:00 EST, Tablet, [place], [place] -, 172, cm, 04/17/19 9:42:00 EST, Height, 83.7, kg, 04/04/19 0:17:00 E... Start Date: 04/17/19 Stop Date: 10/14/19 Status: Ordered albuterol CFC free 90 mcg/inh inhalation aerosol See Instructions, # 18 Gm, Refills 5 Tot. Refills 5, INHALE 2 PUFFS BY MOUTH INTO THE lungs 4 (FOUR) TIMES DAILY NEEDED FOR SHORTNESS OF BREATH OR FOR WHEEZING, [place], [place] - Start Date: 01/21/19 Status: Ordered Alcohol Pads See Instructions, # 50 each, Refills 11, Tot. Refills 11, Maintenance, E11.9 check BG daily, 12/05/18 7:49:59 EDT, Compound Start Date: 12/05/18 Status: Ordered amLODIPine 5 mg oral tablet 5 mg, 1, tablet, By Mouth, Daily, # 30 tablet, Refills 11, Tot. Refills 11, Maintenance, 06/16/19 12:27:00 EST, Route to Pharmacy Electronically, [facility] [place], [place] -, 172, cm, 06/16/19 11:20:00 EST, [...] 07/14/19 Status: Ordered Talbert Elastic barrier strips #313321 Talbert Elastic barrier strips #374865, See Instructions, # 1 units, Refills 11, Tot. Refills 11, Maintenance, To remove appliance at every change Dx Ulcerative Colitis, 01/31/18 11:44:17 EDT, Compound Start Date: 01/31/18 Status: Ordered busPIRone 5 mg oral tablet 5 mg, 1, tablet, By Mouth, 3 times a day, for anxiety, # 90 tablet, Refills 11, Tot. Refills 11, Maintenance, 04/17/19 10:43:00 EST, Route to Pharmacy Electronically, [place], [place] -, 172, cm, 04/17/19 9:42:00 EST, Height, 83.7, kg... Start Date: 04/17/19 Stop Date: 04/11/20 Status: Ordered carvedilol 6.25 mg oral tablet 6.25 mg, 1, tablet, By Mouth, 2 times a day, # 60 tablet, Refills 11, Tot. Refills 11, Maintenance,06/16/19 12:25:00 EST, Route to Pharmacy Electronically, [place], [place] -, 172, cm, 06/16/19 11:20:00 EST, [...] 04/17/19 10:43:00 EST, Route to Pharmacy Electronically, [place], [place] -, 172, cm, 04/17/19 9:42:00 EST, Height, 83.7, kg, 04/04/19 0:17:... Start Date: 04/17/19 Stop Date: 04/11/20 Status: Ordered Citrucel 500 mg oral tablet 2 tablet = 1,000 mg, By Mouth, Daily, for 60 days, with plenty of water, # 120 tablet, 1 Refills, Acute 02/12/20 16:54:00 EDT, 10/15/19 16:54:00 EDT, [facility], 172, cm, 06/25/19 10:26:00 EST, Height, 83.7, kg, 04/04/19 0:17:... Start Date: 10/15/19 Stop Date: 02/12/20 Status: Ordered coloplast #28007 pouch coloplast #64457 pouch, See Instructions, # 20 each, Refills 11, Tot. Refills 11, Maintenance, use as needed for ostomy care. 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 Fax to [facility], 06/25/19 12:46:00 EST, Compound Start Date: 06/25/19 Status: Ordered coloplast #77693 pouch coloplast #26301 pouch, See Instructions, # 40 each, Refills 11, Tot. Refills 11, Maintenance, use as needed for ostomy care. 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 Fax to [facility]). disp 40 coloplast pouche... Start Date: 08/05/19 Status: Ordered coloplast 89134 convex 1 piece coloplast 65222 convex 1 piece, See Instructions, # 1 box, Refills 11, Tot. Refills 11, Maintenance, use for ostomy changes Dx- uc/ileostomy, 07/25/18 11:04:40 EDT, Compound Start Date: 07/25/18 Status: Ordered coloplast bags #78567 coloplast bags #01128, See Instructions, # 20 each, Refills 11, Tot. Refills 11, Maintenance, use as needed for ostomy care Dx. ileostomy Z93.2, 07/14/19 10:56:00 EDT, Compound Start Date: 07/14/19 Status: Ordered Compression Stockings See Instructions, # 4 each, Refills 1, Tot. Refills 1, Maintenance, knee high compression hose 20-30mm 4 pair dx bilateral leg edema. R60.0 pls fax to [facility], 05/12/19 14:02:00 EST, Compound Start [...] 11 Refills, Maintenance, 07/29/19 11:40:00 EDT, Tablet, [facility] [place], [place] -, 172, cm, 06/25/19 10:26:00 EST, Height, 83.7, kg, 04/04/19 0:17:00 EST, Dry Weight Start Date: 07/29/19 Stop Date: 07/23/20 Status: Ordered hydrOXYzine hydrochloride 10 mg oral tablet 2 tablet = 20 mg, By Mouth, 3 times a day, PRN for itching, # 80 tablet, 0 Refills, Maintenance, 06/25/19 11:37:00 EST, Tablet, [place], [place] -, 172, cm, 06/25/19 10:26:00 EST, [...] 01/02/19 10:34:25 EDT, Route to Pharmacy Electronically, [id number], [place]... Start Date: 01/02/19 Stop Date: 07/01/19 Status: Ordered Januvia 50 mg oral tablet 1 tablet = 50 mg, By Mouth, Daily before breakfast, for diabetes, # 30 tablet, 11 Refills, Maintenance, 04/17/19 10:46:00 EST, Tablet, [place], [place] -, 172, cm, 04/17/19 9:42:00 EST, Height, 83.7, kg, 04/04/19 0:17:00 EST, Dry Weight Start Date: 04/17/19 Stop Date: 04/11/20 Status: Ordered LifeLine LifeLine, See Instructions, # 1 each, Refills 0, Tot. Refills 0, Maintenance, use to call for help in the home as directed length of need 99 B20, F32.9, F11.2 Pt address/#: [address] [address], [address]. [phone] Critical Signal... Start Date: 01/15/18 Status: Ordered [...] Date: 09/12/18 Status: Ordered No-nsting skin prep #[id number] No-nsting skin prep #14957267, See Instructions, # 1 bottle, Refills 11, Tot. Refills 11, Maintenance, Use as needed for ostomy care Dx: colostomy, 01/31/18 11:44:14 EDT, Compound Start Date: 01/31/18 Status: Ordered omeprazole 20 mg oral enteric coated capsule 1 capsule = 20 mg, By Mouth, Daily, PRN only if needed for acid reflux symptoms, # 30 capsule, 5 Refills, Maintenance, 04/17/19 10:49:00 EST, EC Capsule, [place], [place] -, 172, cm,04/17/19 9:42:00 EST, Height, [...] tablet, 5 Refills, Maintenance, 07/19/19 13:20:00 EDT, [place], [place] -, 172, cm, 06/25/19 10:26:00 EST, [...] 11 Refills, Maintenance, 06/16/19 12:26:00 EST, Tablet, [place], [place] -, 172, cm, 06/16/19 11:20:00 EST, [...] mg sublingual film 3 each, Sublingual, Daily, [id number], MassPATchecked. dissolve under tongue (ok to divide dose 3x/dif helps w/ pain), # 84 film, 0 Refills, Maintenance, 11/25/19 11:54:00 EDT, [place], [place] - [id number], 3 each Sublingual Daily,x... Start Date: 11/25/19 Stop Date: 12/23/19 Status: Ordered traZODone 100 mg oral tablet 1, tablet, By Mouth, Daily at bedtime, PRN, # 30 tablet, Refills 11, Tot. Refills 0, Maintenance, NEEDED FOR insomnia, 07/19/19 17:09:00 EDT, Route to Pharmacy Electronically, [facility], 172, cm, 06/25/19 10:26:00 EST, Height, 83.7, kg, 04/04... Start Date: 07/19/19 Status: Ordered Triumeq oral tablet 1 tablet, By Mouth, Daily, # 30 tablet, 11 Refills, Maintenance, 07/29/19 11:40:00 EDT, Tablet, [place], [place] -, 1 tablet By Mouth Daily,x30 days, 172, cm, 06/25/19 10:26:00 EST, Height, 83.7, kg, 04/04/19 0:17:00 EST, Dry Weight Start Date: 07/29/19 Stop Date: 07/23/20 Status: Ordered Unisolve adhesive remover #787999 Unisolve adhesive remover #942194, See Instructions, # 1 box, Refills 11, Tot. Refills 11, Maintenance, To remove appliance at every change Dx Ulcerative Colitis, 01/31/18 11:44:15 EDT, Compound Start Date: 01/31/18 Status: Ordered Voltaren 1% topical gel See Instructions, PRN pain R knee, apply to painful knees 1-2x/day maximum; wash hands after, # 100Gm, 3 Refills, Maintenance, 06/25/19 11:49:00 EST, Gel, [place], [place] -, apply to painful knees 1-2x/day [...] 06/25/19 11:36:00 EST, Tablet, [facility] [place], [place] -, 172, cm, 06/25/19 10:26:00 EST, [...] inguinal pain(Confirmed) Active 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) Active *[phone]- [facility] [place] 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
--- OUTSIDE RECORDS SUMMARY | 2022-12-18 06:35 | XMS_ITS | Continuity of Care Document ---
Author Name Unknown Organization [facility] Address [address] [place] [address]- Care Team Providers Care Hr Clerk Name Role Phone Noemi Ruffin MD, I Primary Care Physician [phone] Encounter [facility] Date(s): 06/09/20 - 07/09/[address] [address]- Allergies, Adverse Reactions, Alerts Substance Reaction Severity [...] VIS 10/03 3Result Comment: [12/07/2016] diluent LOT [id number] EXP 03/29/2018 4Result Comment: [07/18/2016] Liquid component: [id number], exp.: 05/2017 5Admin Note: VIS 12/13/2006 6Admin Note: vis 10/30/11 7Admin Note: vis [id number] 8Admin Note: done at [facility] this past march 9Admin Note: VIS GIVEN 2008- 10Admin Note: vis 11/25/06 Medications acetaminophen 500 mg oral tablet 1 tablet = 500 mg, By Mouth, 2 times a day, PRN for pain, take only if needed, # 60 tablet, 5 Refills, Maintenance, 04/17/19 10:49:00 EST, Tablet, [facility] - [place], [place] -, 172, cm, 04/17/19 9:42:00 EST, Height, 83.7, kg, 04/04/19 0:17:00 E... Start Date: 04/17/19 Stop Date: 10/14/19 Status: Ordered albuterol CFC free 90 mcg/inh inhalation aerosol See Instructions, # 18 Gm, Refills 5 Tot. Refills 5, INHALE 2 PUFFS BY MOUTH INTO THE lungs 4 (FOUR) TIMES DAILY NEEDED FOR SHORTNESS OF BREATH OR FOR WHEEZING, [facility] - [place], [place] - Start Date: 01/21/19 Status: Ordered Alcohol Pads See Instructions, # 50 each, Refills 11, Tot. Refills 11, Maintenance, E11.9 check BG daily, 12/05/18 7:49:59 EDT, Compound Start Date: 12/05/18 Status: Ordered amLODIPine 5 mg oral tablet 1 tablet, By Mouth, Daily, # 30 tablet, 11 Refills, Maintenance, 06/22/20 20:22:00 EST, [facility], 173, cm, 04/12/20 11:01:00 EST, [...] 07/14/19 Status: Ordered Talbert Elastic barrier strips #481530 Talbert Elastic barrier strips #087192, See Instructions, # 1 units, Refills 11, [...] 04/19/20 11:34:00 EST, Route to Pharmacy Electronically, [facility] [id number], 173, cm, 04/12/20 11:01:00 EST, Heigh... Start Date: 04/19/20 Stop Date: 11/15/20 Status: Ordered carvedilol 6.25 mg oral tablet 6.25 mg, 1, tablet, By Mouth, 2 times a day, # 60 tablet, Refills 2, Tot. Refills 2, Maintenance, 06/22/20 11:26:00 EST, Route to Pharmacy Electronically, [facility], [facility] [id number], 173, cm, 04/12/20 11:01:00 EST, Height, 86.8, kg... Start Date: 06/22/20 Stop Date: 09/20/20 Status: Ordered carvedilol 6.25 mg oral tablet 6.25 mg, 1, tablet, By Mouth, 2 times a day, # 60 tablet, Refills 11, Tot. Refills 11, Maintenance,06/22/20 21:17:00 EST, Route to Pharmacy Electronically, [facility], [facility] [id number], 173, cm, 04/12/20 11:01:00 EST, Height, 86.8,... Start Date: 06/22/20 Stop Date: 06/17/21 Status: Ordered cetirizine 10 mg oral tablet 1 tablet = 10 mg, By Mouth, Daily, PRN if needed for allergy symptoms, do not blister pack, # 90 tablet, 1 Refills, Maintenance, 04/19/20 11:34:00 EST, Tablet, [facility], [facility] [id number], 173, cm, 04/12/20 11:01:00 EST, Height, 86.... [...] 5 Refills, Maintenance, 05/21/20 12:39:00 EST, Granule, [facility] - [place], [place] - [id number], Partial fill u... Start Date: 05/21/20 Stop Date: 11/17/20 Status: Ordered coloplast #97687 pouch coloplast #46633 pouch, See Instructions, # 20 each, Refills 11, Tot. Refills 11, Maintenance, use as needed for ostomy care. 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 Fax to Andre ([facility]), 06/25/19 12:46:00 EST, Compound Start Date: 06/25/19 Status: Ordered coloplast #78476 pouch coloplast #04789 pouch, See Instructions, # 40 each, Refills 11, Tot. Refills 11, Maintenance, use as needed for ostomy care. 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 Fax to [facility] ([facility]). disp 40 coloplast pouche... Start Date: 08/05/19 Status: Ordered coloplast 37250 convex 1 piece coloplast 26956 convex 1 piece, See Instructions, # 1 box, Refills 11, Tot. Refills 11, Maintenance, use for ostomy changes Dx- uc/ileostomy, 07/25/18 11:04:40 EDT, Compound Start Date: 07/25/18 Status: Ordered coloplast bags #41771 coloplast bags #52559, See Instructions, # 20 each, Refills 11, Tot. Refills 11, Maintenance, use as needed for ostomy care Dx. ileostomy Z93.2, 07/14/19 10:56:00 EDT, Compound Start Date: 07/14/19 Status: Ordered Compression Stockings See Instructions, # 4 each, Refills 1, Tot. Refills 1, Maintenance, knee high compression hose 20-30mm 4 pair dx bilateral leg edema. R60.0 pls fax to [facility], 05/12/19 14:02:00 EST, Compound Start Date: 05/12/19 [...] 11 Refills, Maintenance, 07/29/19 11:40:00 EDT, Tablet, [place], [place] -, 172, cm, 06/25/19 10:26:00 EST, Height, 83.7, kg, 04/04/19 0:17:00 EST, Dry Weight Start Date: 07/29/19 Stop Date: 07/23/20 Status: Ordered Januvia 50 mg oral tablet 1 tablet = 50 mg, By Mouth, Daily before breakfast, for diabetes, # 90 tablet, 0 Refills, Maintenance, 04/19/20 11:35:00 EST, Tablet, [place], [place] - [id number], 173, cm, 04/12/2011:01:00 EST, Height, 86.8, kg, 04/07/20 8:07:00 ES... Start Date: 04/19/20 Stop Date: 04/14/21 Status: Ordered LifeLine LifeLine, See Instructions, # 1 each, Refills 0, Tot. Refills 0, Maintenance, use to call for help in the home as directed length of need 99 B20, F32.9, F11.2 Pt address/#: [address] [place] [address], [address]. [phone] Critical Signal... Start Date: 01/15/18 Status: Ordered [...] Date: 09/12/18 Status: Ordered No-nsting skin prep #25313507 No-nsting skin prep #64440819, See Instructions, # 1 bottle, Refills 11, Tot. Refills 11, Maintenance, Use as needed for ostomy care Dx: colostomy, 01/31/18 11:44:14 EDT, Compound Start Date: 01/31/18 Status: Ordered omeprazole 20 mg oral enteric coated capsule 1 capsule = 20 mg, By Mouth, Daily, PRN only if needed for acid reflux symptoms, # 90 capsule, 0 Refills, Maintenance, 04/19/20 11:34:00 EST, EC Capsule, [facility] [id number], 173, cm, 04/12/20 11:01:00 EST, Height, 86.8, [...] mg sublingual film 2 film, Sublingual, Daily, [id number] MassPATchecked. dissolve under tongue, # 56 film, 0 Refills, Maintenance, 06/22/20 21:18:00 EST, [place], [place] - [id number], 2 film SublingualDaily,x28 days,Instr:[id number]; MassPATchecked.... Start Date: 06/22/20 Stop Date: 07/20/20 Status: Ordered traZODone 100 mg oral tablet 1, tablet, By Mouth, Daily at bedtime, PRN, # 30 tablet, Refills 11, Tot. Refills 0, Maintenance, NEEDED FOR insomnia, 07/19/19 17:09:00 EDT, Route to Pharmacy Electronically, [facility], 172, cm, 06/25/19 10:26:00 EST, Height, 83.7, kg, 04/04... Start Date: 07/19/19 Status: Ordered Triumeq oral tablet 1 tablet, By Mouth, Daily, # 30 tablet, 11 Refills, Maintenance, 07/29/19 11:40:00 EDT, Tablet, [place], [place] -, 1 tablet By Mouth Daily,x30 days, 172, cm, 06/25/19 10:26:00 EST, Height, 83.7, kg, 04/04/19 0:17:00 EST, Dry Weight Start Date: 07/29/19 Stop Date: 07/23/20 Status: Ordered Unisolve adhesive remover #335699 Unisolve adhesive remover #548752, See Instructions, # 1 box, Refills 11, Tot. Refills 11, Maintenance, To remove appliance at every change Dx Ulcerative Colitis, 01/31/18 11:44:15 EDT, Compound Start Date: 01/31/18 Status: Ordered warfarin 1 mg oral tablet See Instructions, Take 1-10 tablets By Mouth Daily as directed by [facility], # 150 tablet, 0 Refills, Maintenance, 04/12/20 8:51:00 EST, Tablet, [facility] 3, Partial fill upon patient [...] inguinal pain(Confirmed) Active 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) Active *[id number] Care Partn krysten-Jesica Jeter(Confirmed) Active traumatic splenectomy [...]
--- OUTSIDE RECORDS SUMMARY | 2022-12-18 06:35 | XMS_ITS | Continuity of Care Document ---
Author Name Unknown Organization [facility] Address [address] [place] [address]- Care Team Providers Care Metal Room Dental Technician Name Role Phone Mora Gooden MD Primary Care Physician Encounter [facility] Date(s): 10/04/22 - 11/03/[address] [address]- Allergies, Adverse Reactions, Alerts Substance Reaction Severity Status ampicillin Active aspirin BLEEDING Persistent Severe Active Pollen NASAL CONGESTION SNEEZING Persistent Mode rate Active NSAIDs bleeding Persistent Severe Active Immunizations Given and Recorded Vaccine Date Status Refusal Reason [id number] 12y+ bivalent booster vax 02/02/22 Recorded SARS-CoV-2 [...] VIS 10/03 4Result Comment: [12/07/2016] diluent LOT [id number] EXP 03/29/2018 5Result Comment: [07/18/2016] Liquid component: [id number], exp.: 05/2017 6Admin Note: VIS 12/13/2006 7Admin Note: vis 10/30/11 8Admin Note: vis [id number] 9Admin Note: [facility] [...] 09/09/21 Status: Ordered Talbert Elastic barrier strips #303236 Talbert Elastic barrier strips #934637, See Instructions, # 120 each, Refills 11, Tot. Refills 11, Maintenance, Dx: K51; Z93. 3 sig: use 4 strips a day with ostomy bag. disp: 4 bags of 30 strips = 120 strips per month. Fax to [facility] [phone], 07... Start Date: 11/03/22 Status: Ordered busPIRone 5 mg oral tablet 1, tablet, By Mouth, 3 times a day, PRN, # 270 tablet, Refills 1, Maintenance, NEEDED FOR ANXIETY, 07/24/22 17:21:00 EDT, Route to Pharmacy Electronically, [facility], 167, cm, 04/10/22 11:48:00 EST, Height, 89.9, kg, 05/25/21 10:21:00 EST, [facility]. Start Date: 07/24/22 Status: Ordered carvedilol 12.5 mg oral tablet 1, tablet, By Mouth, 2 times a day, # 180 tablet, Refills 1, Maintenance, 06/26/22 22:23:00 EST, Route to Pharmacy Electronically, [facility], 167, cm, 04/10/22 11:48:00 EST, Height, 89.9, kg, 05/25/21 10:21:00 EST, Dry Weight Start Date: 06/26/22 Status: Ordered cetirizine 10 mg oral tablet See Instructions, TAKE 1 TABLET BY MOUTH ONCE DAILY NEEDED for allergy, # 90 tablet, 1 Refills, Maintenance, 08/24/22 11:40:00 EDT, [facility], 167, cm, 08/01/22 10:08:00 EDT, Height, 89.9, kg, 05/25/21 10:21:00 EST, Dry Weight Start Date: 08/24/22 Status: Ordered coloplast #14397 pouch coloplast #26976 pouch, See Instructions, # 20 each, Refills 11, Tot. Refills 11, Maintenance, use as needed for ostomy care. 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 Fax to Andre ([facility]), 06/25/19 12:46:00 EST, Compound Start Date: 06/25/19 Status: Ordered coloplast 15196 convex 1 piece coloplast 08429 convex 1 piece, See Instructions, # 1 box, Refills 11, Tot. Refills 11, Maintenance, use for ostomy changes Dx- uc/ileostomy, 07/25/18 11:04:40 EDT, Compound Start Date: 07/25/18 Status: Ordered coloplast bags #82881 coloplast bags #92227, See Instructions, # 20 each, Refills 11, [...] Gm, 5 Refills, Maintenance, 06/27/22 16:38:00 EST, [facility], 30, APPLY TO PAINFUL KNEES 1 TO 2 TIMES A DAY maximum. WASH HANDS AFTER USE, 167, cm,... Start Date: 06/27/22 Status: Ordered Dovato 50 mg-300 mg oral tablet 1 tablet, By Mouth, Daily, *pharmacy: please change triumeq to dovato with the next monthly medication delivery., # 30 tablet, 11 Refills, Maintenance, 04/21/22 14:15:00 EST, Tablet, [facility] - [place], [place] - [id number], Partial fill upon pa... Start Date: 04/21/22 [...] Z93. 3; K51 RICH 99 Fax to [facility] [phone], 09/28/22 14:39:00 EDT, Supply Start Date: 09/28/22 Status: Ordered hydrochlorothiazide 12.5 mg oral tablet See Instructions, TAKE 1 TABLET BY MOUTH ONCE DAILY, # 30 tablet, 5 Refills, Maintenance, 08/24/22 11:41:00 EDT, [facility] [id number], 167, cm, 08/01/22 10:08:00 EDT, Height, 89.9, [...] 11 Refills, Maintenance, 07/07/22 11:45:00 EST, Tablet, [place], [place] - [id number], Partial fill upon patient request if the prescription is for a schedule II opioid drug., 167,... Start Date: 07/07/22 Status: Ordered LifeLine LifeLine, See Instructions, # 1 each, Refills 0, Tot. Refills 0, Maintenance, use to call for help in the home as directed length of need 99 B20, F32.9, F11.2 Pt address/#: [address] [address], [address] [phone] Critical Signal... Start Date: 01/15/18 Status: Ordered [...] Date: 09/12/18 Status: Ordered No-nsting skin prep #73745351 No-nsting skin prep #70694760, See Instructions, # 1 bottle, Refills 11, Tot. Refills 11, Maintenance, Use as needed for ostomy care Dx: colostomy, 01/31/18 11:44:14 EDT, Compound Start Date: 01/31/18 Status: Ordered omeprazole 40 mg oral enteric coated capsule 1 capsule, By Mouth, 2 times a day, # 60 capsule, 11 Refills, Maintenance, 09/21/22 16:32:00 EDT, [facility], 167, cm, 08/01/22 10:08:00 EDT, [...] Gm, 5 Refills, Maintenance, 08/24/22 15:20:00 EDT, [facility], 30, DISSOLVE 17GM IN WATER [...] 3; K51 Fax to [facility], 09/07/22 15:51:00 EDT, Supply Start [...] 90 film,1 Refills, Maintenance, 10/04/22 15:34:00 EDT, [place], [place] - [id number], 3 film Sublingual Daily,x30 days,Instr:Fill on/after 6... Start Date: 10/04/22 Stop Date: 12/03/22 Status: Ordered traZODone 100 mg oral tablet 1, tablet, By Mouth, Daily at bedtime, PRN, # 90 tablet, Refills 1, Maintenance, NEEDED FOR insomnia, 06/27/22 16:38:00 EST, Route to Pharmacy Electronically, [facility], 167, cm, 04/10/22 11:48:00 EST, Height, 89.9, kg, 05/25/21 10:21:00 EST,... Start Date: 06/27/22 Status: Ordered Trulicity Pen 0.75 mg/0.5 mL subcutaneous solution 0.5 mL = 0.75 mg, Subcutaneous Injection, Every week, rotate injection sites, # 2 mL, 11 Refills, Maintenance, 07/07/22 11:45:00 EST, Solution, [place], [place] - [id number], Partialfill upon patient request if the prescription is fo... Start Date: 07/07/22 Status: Ordered Unisolve adhesive remover #450596 Unisolve adhesive remover #160329, See Instructions, # 1 box, Refills 11, [...] Active Osteoarthritis of both hands Confirmed Active *[phone]-Genoveva katie Harris Confirmed Active SLAC (scapholunate advanced [...] Team Personnel Name: Maru Grey NP Position: [facility] PCO Associate Professional Member Role: Primary Care Nurse Address: Address: [address] [place] [address] [place], [place] [address] Name: Arianne George RN Position: [facility] RN Member Role: Primary Care Nurse Name: Radha Ewing RN Position: [facility] RN Member Role: Primary Care Nurse Name: Macey Trevino RN Position: [facility] AMB Nurse Member Role: Primary Care Nurse Name: Nesha Leigh RN Position: [facility] SN RN Member Role: Primary Care Nurse Name: Alanna Ashby RN Position: [facility] RN Member Role: Primary Care Nurse Name: Loren Jimenez RN Position: [facility] RN Member Role: Primary Care Nurse Name: Starr Poon RN Position: [facility] SN RN Member Role: Primary Care Nurse Name: Vilma Perez RN Position: [facility] MR W/ Merge Member Role: Primary Care Nurse Name: John Noguera RN Position: [facility] RN Member Role: Primary Care Nurse Name: Dunia Arechiga RN Position: [facility] RN Member Role: Primary Care Nurse Name: Kamilah Baron Position: [facility] PCO TA Member Role: Primary Care Nurse Name: Ro Lopez RN Position: [facility] RN Member Role: Primary Care Nurse Name: Kosta Braun III, RN Position: [facility] RN Member Role: Primary Care Nurse Name: Lauryn Jiménez RN Position: [facility] Hospital Funeral Home Attendant Member Role: Primary Care Nurse Name: Jorge Ching RN Position: [facility] RN Member Role: Primary Care Nurse Name: Valarie Srivastava RN Position: [facility] RN Member Role: Primary Care Nurse Name: Monica Jacobs RN Position: [facility] RN Member Role: Primary Care Nurse Name: Johanna Castaneda RN Position: [facility] RN Member Role: Primary Care Nurse Address: Address: [address] [place] [address]- Name: Luisa Zavaleta RN Position: [facility] AMB Nurse Member Role: Primary Care Nurse Name: Yulissa Mora RN Position: [facility] SN RN Member Role: Primary Care Nurse Name: Francine Abrams RN Position: [facility] RN Member Role: Primary Care Nurse Name: Shea Marinelli RN Position: [facility] RN Member Role: Primary Care Nurse Name: Mora Gooden MD Position: [facility] Physician - Primary Care Member Role: PCP Address: Address: [address] [place] [address]- Care Team Related Persons Name: KENDRA PEGGY Address: home [address] [place] [address] Name: JLUIS WHITE NAME Name: ADIA WINTERS
--- OUTSIDE RECORDS SUMMARY | 2022-12-18 06:36 | XMS_ITS | Continuity of Care Document ---
Author Name Unknown Organization [facility] Address [address] [place] [address]- Care Team Providers Care Guest Relations Associate Name Role Phone Laly FERNANDEZ, Noemi Marshall Primary Care Physician [facility]counter [facility] Date(s): 06/21/22 - 07/21/[address] [address]- Allergies, Adverse Reactions, Alerts Substance Reaction Severity Status ampicillin Active aspirin BLEEDING Persistent Severe Active Pollen NASAL CONGESTION SNEEZING Persistent Mode rate Active NSAIDs bleeding Persistent Severe Active Immunizations Given and Recorded Vaccine Date Status Refusal Reason [id number] 12y+ bivalent booster vax 02/02/22 Recorded SARS-CoV-2 [...] VIS 10/03 4Result Comment: [12/07/2016] diluent LOT [id number] EXP 03/29/2018 5Result Comment: [07/18/2016] Liquid component: [id number], exp.: 05/2017 6Admin Note: VIS 12/13/2006 7Admin Note: vis 10/30/11 8Admin Note: vis [id number] 9Admin Note: done at [facility] this past march 10Admin Note: VIS GIVEN 2008- 11Admin Note: vis 11/25/06 Medications acetaminophen 500 mg oral tablet 1 tablet, By Mouth, 4 times a day, PRN NEEDED FOR PAIN, TAKE ONLY IF needed, # 100 tablet, 5 Refills, Maintenance, 04/14/22 15:58:00 EST, [place], [place] - [id number], 167, cm, 04/10/22 11:48:00 EST, Height, 89.9, kg, 05/25/21 10:... Start Date: 04/14/22 Status: Ordered Albuterol (Eqv-ProAir HFA) 90 mcg/inh inhalation aerosol 2 puffs, Inhalation, 4 times a day, PRN NEEDED FOR SHORTNESS OF BREATH OR FOR WHEEZING, # 25.5 Gm, 5 Refills, [facility], 4, INHALE 2 PUFFS [...] tablet, 5 Refills, Maintenance, 06/26/22 22:22:00 EST, [facility], 167, cm, 04/10/22 11:48:00 EST, [...] 09/09/21 Status: Ordered Talbert Elastic barrier strips #481605 Talbert Elastic barrier strips #[id number], See Instructions, # 120 each, Refills 11, [...] 01/26/22 18:01:00 EDT, Route to Pharmacy Electronically, [facility] - [place], [place] - [id number], 167, cm, 08/08/21 11:18:00 E... Start Date: 01/26/22 Stop Date: 07/25/22 Status: Ordered carvedilol 12.5 mg oral tablet 1, tablet, By Mouth, 2 times a day, # 180 tablet, Refills 1, Maintenance, 06/26/22 22:23:00 EST, Route to Pharmacy Electronically, [facility], 167, cm, 04/10/22 11:48:00 EST, Height, 89.9, kg, 05/25/21 10:21:00 EST, Dry Weight Start Date: 06/26/22 Status: Ordered cetirizine 10 mg oral tablet 1 tablet, By Mouth, Daily, PRN NEEDED FOR FOR ALLERGY, # 90 tablet, 1 Refills, 02/23/22 14:13:00EDT, [place], [place] - [id number], 167, cm, 08/08/21 11:18:00 EDT, Height, 89.9, kg, 05/25/21 10:21:00 EST, Dry Weight Start Date: 02/23/22 Status: Ordered coloplast #82237 pouch coloplast #66097 pouch, See Instructions, # 20 each, Refills 11, Tot. Refills 11, Maintenance, use as needed for ostomy care. 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 Fax to Andre ([facility]), 06/25/19 12:46:00 EST, Compound Start Date: 06/25/19 Status: Ordered coloplast #51049 pouch coloplast #10106 pouch, See Instructions, # 40 each, Refills 11, Tot. Refills 11, Maintenance, use as needed for ostomy care. 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 Fax to Andre ([facility]). disp 40 coloplast pouche... Start Date: 08/05/19 Status: Ordered coloplast 45011 convex 1 piece coloplast 39166 convex 1 piece, See Instructions, # 1 box, Refills 11, Tot. Refills 11, Maintenance, use for ostomy changes Dx- uc/ileostomy, 07/25/18 11:04:40 EDT, Compound Start Date: 07/25/18 Status: Ordered coloplast bags #27489 coloplast bags #58549, See Instructions, # 20 each, Refills 11, Tot. Refills 11, Maintenance, use as needed for ostomy care Dx. ileostomy Z93.2 fax to [facility], 09/09/21 10:48:00 EDT, Compound Start Date: 09/09/21 Status: Ordered Compression Stockings See Instructions, # 4 each, Refills 1, Tot. Refills 1, Maintenance, knee high compression hose 20-30mm 4 pair dx bilateral leg edema. R60.0 pls fax to [facility], 05/12/19 14:02:00 EST, Compound Start Date: [...] Gm, 5 Refills, Maintenance, 06/27/22 16:38:00 EST, [facility], 30, APPLY TO PAINFUL KNEES 1 TO 2 TIMES A DAY maximum. WASH HANDS AFTER USE, 167, cm,... Start Date: 06/27/22 Status: Ordered Dovato 50 mg-300 mg oral tablet 1 tablet, By Mouth, Daily, *pharmacy: please change triumeq to dovato with the next monthly medication delivery., # 30 tablet, 11 Refills, Maintenance, 04/21/22 14:15:00 EST, Tablet, [facility] - [place], [place] - [id number], Partial fill upon pa... Start Date: 04/21/22 [...] tablet, 2 Refills, Maintenance, 05/27/22 4:01:00 EST, [facility], 167, cm, 04/10/22 11:48:00 [...] 11 Refills, Maintenance, 07/07/22 11:45:00 EST, Tablet, [facility] - [place], [place] - [id number], Partial fill upon patient request if the prescription is for a schedule II opioid drug., 167,... Start Date: 07/07/22 Status: Ordered LifeLine LifeLine, See Instructions, # 1 each, Refills 0, Tot. Refills 0, Maintenance, use to call for help in the home as directed length of need 99 B20, F32.9, F11.2 Pt address/#: [address] [place] [address], [address]. [phone] Critical Signal... Start Date: 01/15/18 Status: Ordered Lokelma 10 g oral powder for reconstitution See Instructions, DISSOLVE THE CONTENT OF 1 PACKET IN WATER AND DRINK ONCE DAILY. DO NOT TAKE WITHIN 2 HOURS OF other MEDICATIONS, # 30 pack/packet, 5 Refills, Maintenance, 04/25/22 16:05:00 EST, [facility], 167, cm, 04/10/22 11:48:00 [...] Date: 09/12/18 Status: Ordered No-nsting skin prep #56790004 No-nsting skin prep #59075005, See Instructions, # 1 bottle, Refills 11, Tot. Refills 11, Maintenance, Use as needed for ostomy care Dx: colostomy, 01/31/18 11:44:14 EDT, Compound Start Date: 01/31/18 Status: Ordered omeprazole 40 mg oral enteric coated capsule 1 capsule, By Mouth, 2 times a day, # 60 capsule, 1 Refills, Maintenance, 05/27/22 4:01:00 EST, [facility], 167, cm, 04/10/22 11:48:00 [...] tablet, 1 Refills, Maintenance, 06/26/22 22:24:00 EST, [facility], 167, cm, 04/10/22 11:48:00 [...] tablet, 11 Refills, Maintenance, 05/29/22 18:56:00 EST, [facility], 167, cm, 04/10/22 11:48:00 [...] sublingual film 3 film, Sublingual, Daily, Laly [id number] MassPATchecked. dissolve under tongue, # 84 film, 0 Refills, Maintenance, 07/14/22 9:48:00 EDT, [facility], [facility] [id number], increase in dose from 16 mg to 24 mg daily, 3 film Subling... Start Date: 07/14/22 Stop Date: 08/11/22 Status: Ordered traZODone 100 mg oral tablet 1, tablet, By Mouth, Daily at bedtime, PRN, # 90 tablet, Refills 1, Maintenance, NEEDED FOR insomnia, 06/27/22 16:38:00 EST, Route to Pharmacy Electronically, [facility], 167, cm, 04/10/22 11:48:00 EST, Height, 89.9, kg, 05/25/21 10:21:00 EST,... Start Date: 06/27/22 Status: Ordered Trulicity Pen 0.75 mg/0.5 mL subcutaneous solution 0.5 mL = 0.75 mg, Subcutaneous Injection, Every week, rotate injection sites, # 2 mL, 11 Refills, Maintenance, 07/07/22 11:45:00 EST, Solution, [facility], [place] - [id number], Partialfill upon patient request if the prescription is fo... Start Date: 07/07/22 Status: Ordered Unisolve adhesive remover #[id number] Unisolve adhesive remover #930989, See Instructions, # 1 box, Refills 11, [...] Confirmed Active Obese class II Confirmed Active *[id number] Web Producer Nitin Hancock Confirmed Active SLAC (scapholunate advanced [...] Team Personnel Name: Maru Grey NP Position: [facility] PCO Associate Professional Member Role: Primary Care Nurse Address: Address: [address] [place] [address]- Name: Arianne George RN Position: [facility] RN Member Role: Primary Care Nurse Name: Radha Ewing RN Position: [facility] RN Member Role: Primary Care Nurse Name: Macey Trevino RN [facility] RN Member Role: Primary Care Nurse Name: Nesha Leigh RN Position: [facility] SN RN Member Role: Primary Care Nurse Name: Alanna Ashby RN Position: [facility] RN Member Role: Primary Care Nurse Name: Loren Jimenez RN Position: [facility] RN Member Role: Primary Care Nurse Name: Starr Poon RN Position: [facility] RN Member Role: Primary Care Nurse Name: Vilma Perez RN Position: [facility] W/ Jonny Member Role: Primary Care Nurse Name: John Noguera RN Position: [facility] RN Member Role: Primary Care Nurse Name: Noemi Ruffin MD, I Position: [facility] Primary Care Physician Member Role: PCP Address: Address: [address] [place] [address] [place] [address]- [place] Name: Dunia Arechiga RN Position: [facility] RN Member Role: Primary Care Nurse Name: Kamilah Baron Position: [facility] PCO TA Member Role: Primary Care Nurse Name: Ro Lopez RN Position: [facility] RN Member Role: Primary Care Nurse Name: Kosta Braun III, RN Position: [facility] RN Member Role: Primary Care Nurse Name: Lauryn Jiménez RN Position: [facility] Hospital Television Repair Teacher Member Role: Primary Care Nurse Name: Jorge Ching RN Position: [facility] RN Member Role: Primary Care Nurse Name: Valarie Srivastava RN Position: [facility] RN Member Role: Primary Care Nurse Name: Monica Jacobs RN Position: [facility] RN Member Role: Primary Care Nurse Name: Johanna Castaneda RN Position: [facility] RN Member Role: Primary Care Nurse Address: Address: [address] [place] [address]- Name: Luisa Zavaleta RN Position: [facility] AMB Nurse Member Role: Primary Care Nurse Name: Yulissa Mora RN Position: [facility] SN RN Member Role: Primary Care Nurse Name: Francine Abrams RN Position: [facility] RN Member Role: Primary Care Nurse Name: hSea Marinelli RN Position: [facility] RN Member Role: Primary Care Nurse Care Team Related Persons Name: PEGGY GARDNER Address: home [address] [place] [address] Name: JLUIS WHITE STAGE NAME Name: ADIA WINTERS
--- OUTSIDE RECORDS SUMMARY | 2022-12-18 06:36 | XMS_ITS | Continuity of Care Document ---
Author Name Unknown Organization [facility] Address [address] [place] [address]- Care Team Providers Care Test Operator Name Role Phone Noemi Ruffin MD, I Primary Care Physician [phone] Encounter [facility] Date(s): 02/04/20 - 03/05/[address] [address]- Allergies, Adverse Reactions, Alerts Substance Reaction Severity [...] VIS 10/03 3Result Comment: [12/07/2016] diluent LOT [id number] EXP 03/29/2018 4Result Comment: [07/18/2016] Liquid component: [id number], exp.: 05/2017 5Admin Note: VIS 12/13/2006 6Admin Note: vis 10/30/11 7Admin Note: vis [id number] 8Admin Note: done at [facility] this past march 9Admin Note: VIS GIVEN 2008- 10Admin Note: vis 11/25/06 Medications acetaminophen 500 mg oral tablet 1 tablet = 500 mg, By Mouth, 2 times a day, PRN for pain, take only if needed, # 60 tablet, 5 Refills, Maintenance, 04/17/19 10:49:00 EST, Tablet, [place], [place] -, 172, cm, 04/17/19 9:42:00 EST, Height, 83.7, kg, 04/04/19 0:17:00 E... Start Date: 04/17/19 Stop Date: 10/14/19 Status: Ordered albuterol CFC free 90 mcg/inh inhalation aerosol See Instructions, # 18 Gm, Refills 5 Tot. Refills 5, INHALE 2 PUFFS BY MOUTH INTO THE lungs 4 (FOUR) TIMES DAILY NEEDED FOR SHORTNESS OF BREATH OR FOR WHEEZING, [place], [place] - Start Date: 01/21/19 Status: Ordered Alcohol Pads See Instructions, # 50 each, Refills 11, Tot. Refills 11, Maintenance, E11.9 check BG daily, 12/05/18 7:49:59 EDT, Compound Start Date: 12/05/18 Status: Ordered amLODIPine 5 mg oral tablet 5 mg, 1, tablet, By Mouth, Daily, # 30 tablet, Refills 11, Tot. Refills 11, Maintenance, 06/16/19 12:27:00 EST, Route to Pharmacy Electronically, [facility] - [place], [place] -, 172, cm, 06/16/19 11:20:00 EST, [...] 07/14/19 Status: Ordered Talbert Elastic barrier strips #[id number] Talbert Elastic barrier strips #780954, See Instructions, # 1 units, Refills 11, Tot. Refills 11, Maintenance, To remove appliance at every change Dx Ulcerative Colitis, 01/31/18 11:44:17 EDT, Compound Start Date: 01/31/18 Status: Ordered busPIRone 5 mg oral tablet 5 mg, 1, tablet, By Mouth, 3 times a day, for anxiety, # 90 tablet, Refills 11, Tot. Refills 11, Maintenance, 04/17/19 10:43:00 EST, Route to Pharmacy Electronically, [facility], 172, cm, 04/17/19 9:42:00 EST, Height, 83.7, kg... Start Date: 04/17/19 Stop Date: 04/11/20 Status: Ordered carvedilol 6.25 mg oral tablet 6.25 mg, 1, tablet, By Mouth, 2 times a day, # 60 tablet, Refills 11, Tot. Refills 11, Maintenance,06/16/19 12:25:00 EST, Route to Pharmacy Electronically, [place], [place] -, 172, cm, 06/16/19 11:20:00 EST, [...] 04/17/19 10:43:00 EST, Route to Pharmacy Electronically, [place], [place] -, 172, cm, 04/17/19 9:42:00 EST, Height, 83.7, kg, 04/04/19 0:17:... Start Date: 04/17/19 Stop Date: 04/11/20 Status: Ordered coloplast #12524 pouch coloplast #98986 pouch, See Instructions, # 20 each, Refills 11, Tot. Refills 11, Maintenance, use as needed for ostomy care. 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 Fax to Andre ([facility]), 06/25/19 12:46:00 EST, Compound Start Date: 06/25/19 Status: Ordered coloplast #02198 pouch coloplast #75008 pouch, See Instructions, # 40 each, Refills 11, Tot. Refills 11, Maintenance, use as needed for ostomy care. 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 Fax to [facility] ([facility]). disp 40 coloplast pouche... Start Date: 08/05/19 Status: Ordered coloplast 88750 convex 1 piece coloplast 29055 convex 1 piece, See Instructions, # 1 box, Refills 11, Tot. Refills 11, Maintenance, use for ostomy changes Dx- uc/ileostomy, 07/25/18 11:04:40 EDT, Compound Start Date: 07/25/18 Status: Ordered coloplast bags #83865 coloplast bags #98859, See Instructions, # 20 each, Refills 11, Tot. Refills 11, Maintenance, use as needed for ostomy care Dx. ileostomy Z93.2, 07/14/19 10:56:00 EDT, Compound Start Date: 07/14/19 Status: Ordered Compression Stockings See Instructions, # 4 each, Refills 1, Tot. Refills 1, Maintenance, knee high compression hose 20-30mm 4 pair dx bilateral leg edema. R60.0 pls fax to [facility], 05/12/19 14:02:00 EST, Compound Start Date: 05/12/19 [...] 11 Refills, Maintenance, 07/29/19 11:40:00 EDT, Tablet, [place], [place] -, 172, cm, 06/25/19 10:26:00 EST, Height, 83.7, kg, 04/04/19 0:17:00 EST, Dry Weight Start Date: 07/29/19 Stop Date: 07/23/20 Status: Ordered hydrOXYzine hydrochloride 10 mg oral tablet 2 tablet = 20 mg, By Mouth, 3 times a day, PRN for itching, # 80 tablet, 0 Refills, Maintenance, 06/25/19 11:37:00 EST, Tablet, [place], [place] -, 172, cm, 06/25/19 10:26:00 EST, [...] 01/02/19 10:34:25 EDT, Route to Pharmacy Electronically, [id number]... Start Date: 01/02/19 Stop Date: 07/01/19 Status: Ordered Januvia 50 mg oral tablet 1 tablet = 50 mg, By Mouth, Daily before breakfast, for diabetes, # 30 tablet, 11 Refills, Maintenance, 04/17/19 10:46:00 EST, Tablet, [facility] - [place], [place] -, 172, cm, 04/17/19 9:42:00 EST, Height, 83.7, kg, 04/04/19 0:17:00 EST, Dry Weight Start Date: 04/17/19 Stop Date: 04/11/20 Status: Ordered LifeLine LifeLine, See Instructions, # 1 each, Refills 0, Tot. Refills 0, Maintenance, use to call for help in the home as directed length of need 99 B20, F32.9, F11.2 Pt address/#: [address] [place] [address], [address]. [phone] Critical Signal... Start Date: 01/15/18 Status: Ordered [...] Date: 09/12/18 Status: Ordered No-nsting skin prep #[id number] No-nsting skin prep #03342218, See Instructions, # 1 bottle, Refills 11, Tot. Refills 11, Maintenance, Use as needed for ostomy care Dx: colostomy, 01/31/18 11:44:14 EDT, Compound Start Date: 01/31/18 Status: Ordered omeprazole 20 mg oral enteric coated capsule 1 capsule = 20 mg, By Mouth, Daily, PRN only if needed for acid reflux symptoms, # 30 capsule, 5 Refills, Maintenance, 04/17/19 10:49:00 EST, EC Capsule, [place], [place] -, 172, cm,04/17/19 9:42:00 EST, Height, [...] tablet, 5 Refills, Maintenance, 01/19/20 15:08:00 EDT, [place], [place] - [id number], 172, cm, 11/25/19 11:30:00 EDT, Height, 83.7,kg, [...] 12:26:00 EST, Tablet, [facility] - [place], [place] -, 172, cm, 06/16/19 11:20:00 EST, [...] mg sublingual film 1.5 film, Sublingual, Daily, [id number], MassPATchecked. dissolve under tongue, # 42 film, 0 Refills, Maintenance, 03/03/20 23:05:00 EST, Dry Weight Start Date: 03/03/20 Stop Date: 03/31/20 Status: Ordered traZODone 100 mg oral tablet 1, tablet, By Mouth, Daily at bedtime, PRN, # 30 tablet, Refills 11, Tot. Refills 0, Maintenance, NEEDED FOR insomnia, 07/19/19 17:09:00 EDT, Route to Pharmacy Electronically, [facility], 172, cm, 06/25/19 10:26:00 EST, Height, 83.7, kg, 04/04... Start Date: 07/19/19 Status: Ordered Triumeq oral tablet 1 tablet, By Mouth, Daily, # 30 tablet, 11 Refills, Maintenance, 07/29/19 11:40:00 EDT, Tablet, [place], [place] -, 1 tablet By Mouth Daily,x30 days, 172, cm, 06/25/19 10:26:00 EST, Height, 83.7, kg, 04/04/19 0:17:00 EST, Dry Weight Start Date: 07/29/19 Stop Date: 07/23/20 Status: Ordered Unisolve adhesive remover #036323 Unisolve adhesive remover #259579, See Instructions, # 1 box, Refills 11, Tot. Refills 11, Maintenance, To remove appliance at every change Dx Ulcerative Colitis, 01/31/18 11:44:15 EDT, Compound Start Date: 01/31/18 Status: Ordered Voltaren 1% topical gel See Instructions, PRN pain R knee, apply to painful knees 1-2x/day maximum; wash hands after, # 100Gm, 3 Refills, Maintenance, 06/25/19 11:49:00 EST, Gel, [place], [place] -, apply to painful knees 1-2x/day [...] 0 Refills, Maintenance, 06/25/19 11:36:00 EST, Tablet, [facility], 172, cm, 06/25/19 10:26:00 EST, Height, [...] inguinal pain(Confirmed) Active 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) Active *[phone] Care Partn er-Jesica Jeter(Confirmed) Active traumatic splenectomy [...]
--- OUTSIDE RECORDS SUMMARY | 2022-12-18 06:36 | XMS_ITS | Continuity of Care Document ---
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 Role Phone Noemi Ruffin MD, I Primary Care Physician [facility] Date(s): 11/13/19 - 12/13/[address] [address]- [facility] Allergies, Adverse Reactions, Alerts Substance [...] VIS 10/03 3Result Comment: [12/07/2016] diluent LOT [id number] EXP 03/29/2018 4Result Comment: [07/18/2016] Liquid component: [id number], exp.: 05/2017 5Admin Note: VIS 12/13/2006 6Admin Note: vis 10/30/11 7Admin Note: vis [id number] 8Admin Note: done at [facility] this past march 9Admin Note: VIS GIVEN 2008- 10Admin Note: vis 11/25/06 Medications acetaminophen 500 mg oral tablet 1 tablet = 500 mg, By Mouth, 2 times a day, PRN for pain, take only if needed, # 60 tablet, 5 Refills, Maintenance, 04/17/19 10:49:00 EST, Tablet, [place], [place] -, 172, cm, 04/17/19 9:42:00 EST, Height, 83.7, kg, 04/04/19 0:17:00 E... Start Date: 04/17/19 Stop Date: 10/14/19 Status: Ordered albuterol CFC free 90 mcg/inh inhalation aerosol See Instructions, # 18 Gm, Refills 5 Tot. Refills 5, INHALE 2 PUFFS BY MOUTH INTO THE lungs 4 (FOUR) TIMES DAILY NEEDED FOR SHORTNESS OF BREATH OR FOR WHEEZING, [place], [place] - Start Date: 01/21/19 Status: Ordered Alcohol Pads See Instructions, # 50 each, Refills 11, Tot. Refills 11, Maintenance, E11.9 check BG daily, 12/05/18 7:49:59 EDT, Compound Start Date: 12/05/18 Status: Ordered amLODIPine 5 mg oral tablet 5 mg, 1, tablet, By Mouth, Daily, # 30 tablet, Refills 11, Tot. Refills 11, Maintenance, 06/16/19 12:27:00 EST, Route to Pharmacy Electronically, [facility] [place], [place] -, 172, cm, 06/16/19 11:20:00 EST, [...] 07/14/19 Status: Ordered Talbert Elastic barrier strips #989904 Talbert Elastic barrier strips #[id number], See Instructions, # 1 units, Refills 11, Tot. Refills 11, Maintenance, To remove appliance at every change Dx Ulcerative Colitis, 01/31/18 11:44:17 EDT, Compound Start Date: 01/31/18 Status: Ordered busPIRone 5 mg oral tablet 5 mg, 1, tablet, By Mouth, 3 times a day, for anxiety, # 90 tablet, Refills 11, Tot. Refills 11, Maintenance, 04/17/19 10:43:00 EST, Route to Pharmacy Electronically, [place], [place] -, 172, cm, 04/17/19 9:42:00 EST, Height, 83.7, kg... Start Date: 04/17/19 Stop Date: 04/11/20 Status: Ordered carvedilol 6.25 mg oral tablet 6.25 mg, 1, tablet, By Mouth, 2 times a day, # 60 tablet, Refills 11, Tot. Refills 11, Maintenance,06/16/19 12:25:00 EST, Route to Pharmacy Electronically, [place], [place] -, 172, cm, 06/16/19 11:20:00 EST, [...] 04/17/19 10:43:00 EST, Route to Pharmacy Electronically, [place], [place] -, 172, cm, 04/17/19 9:42:00 EST, Height, 83.7, kg, 04/04/19 0:17:... Start Date: 04/17/19 Stop Date: 04/11/20 Status: Ordered Citrucel 500 mg oral tablet 2 tablet = 1,000 mg, By Mouth, Daily, for 60 days, with plenty of water, # 120 tablet, 1 Refills, Acute 02/12/20 16:54:00 EDT, 10/15/19 16:54:00 EDT, [facility], 172, cm, 06/25/19 10:26:00 EST, Height, 83.7, kg, 04/04/19 0:17:... Start Date: 10/15/19 Stop Date: 02/12/20 Status: Ordered coloplast #03601 pouch coloplast #15033 pouch, See Instructions, # 20 each, Refills 11, Tot. Refills 11, Maintenance, use as needed for ostomy care. 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 Fax to [facility]), 06/25/19 12:46:00 EST, Compound Start Date: 06/25/19 Status: Ordered coloplast #53989 pouch coloplast #09291 pouch, See Instructions, # 40 each, Refills 11, Tot. Refills 11, Maintenance, use as needed for ostomy care. 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 Fax to [facility]). disp 40 coloplast pouche... Start Date: 08/05/19 Status: Ordered coloplast 65713 convex 1 piece coloplast 61716 convex 1 piece, See Instructions, # 1 box, Refills 11, Tot. Refills 11, Maintenance, use for ostomy changes Dx- uc/ileostomy, 07/25/18 11:04:40 EDT, Compound Start Date: 07/25/18 Status: Ordered coloplast bags #19459 coloplast bags #96325, See Instructions, # 20 each, Refills 11, Tot. Refills 11, Maintenance, use as needed for ostomy care Dx. ileostomy Z93.2, 07/14/19 10:56:00 EDT, Compound Start Date: 07/14/19 Status: Ordered Compression Stockings See Instructions, # 4 each, Refills 1, Tot. Refills 1, Maintenance, knee high compression hose 20-30mm 4 pair dx bilateral leg edema. R60.0 pls fax to [facility], 05/12/19 14:02:00 EST, Compound Start [...] 11 Refills, Maintenance, 07/29/19 11:40:00 EDT, Tablet, [facility] [place], [place] -, 172, cm, 06/25/19 10:26:00 EST, Height, 83.7, kg, 04/04/19 0:17:00 EST, Dry Weight Start Date: 07/29/19 Stop Date: 07/23/20 Status: Ordered hydrOXYzine hydrochloride 10 mg oral tablet 2 tablet = 20 mg, By Mouth, 3 times a day, PRN for itching, # 80 tablet, 0 Refills, Maintenance, 06/25/19 11:37:00 EST, Tablet, [place], [place] -, 172, cm, 06/25/19 10:26:00 EST, [...] 01/02/19 10:34:25 EDT, Route to Pharmacy Electronically, [id number], Kate... Start Date: 01/02/19 Stop Date: 07/01/19 Status: Ordered Januvia 50 mg oral tablet 1 tablet = 50 mg, By Mouth, Daily before breakfast, for diabetes, # 30 tablet, 11 Refills, Maintenance, 04/17/19 10:46:00 EST, Tablet, [place], [place] -, 172, cm, 04/17/19 9:42:00 EST, Height, 83.7, kg, 04/04/19 0:17:00 EST, Dry Weight Start Date: 04/17/19 Stop Date: 04/11/20 Status: Ordered LifeLine LifeLine, See Instructions, # 1 each, Refills 0, Tot. Refills 0, Maintenance, use to call for help in the home as directed length of need 99 B20, F32.9, F11.2 Pt address/#: [address] [place] [address], [address]. [phone] Critical Signal... Start Date: 01/15/18 Status: Ordered [...] Date: 09/12/18 Status: Ordered No-nsting skin prep #31088756 No-nsting skin prep #[id number], See Instructions, # 1 bottle, Refills 11, Tot. Refills 11, Maintenance, Use as needed for ostomy care Dx: colostomy, 01/31/18 11:44:14 EDT, Compound Start Date: 01/31/18 Status: Ordered omeprazole 20 mg oral enteric coated capsule 1 capsule = 20 mg, By Mouth, Daily, PRN only if needed for acid reflux symptoms, # 30 capsule, 5 Refills, Maintenance, 04/17/19 10:49:00 EST, EC Capsule, [place], [place] -, 172, cm,04/17/19 9:42:00 EST, Height, [...] tablet, 5 Refills, Maintenance, 07/19/19 13:20:00 EDT, [place], [place] -, 172, cm, 06/25/19 10:26:00 EST, [...] 11 Refills, Maintenance, 06/16/19 12:26:00 EST, Tablet, [place], [place] -, 172, cm, 06/16/19 11:20:00 EST, [...] mg sublingual film 3 each, Sublingual, Daily, [id number], MassPATchecked. dissolve under tongue (ok to divide dose 3x/dif helps w/ pain), # 84 film, 0 Refills, Maintenance, 11/25/19 11:54:00 EDT, [place], [place] - [id number], 3 each Sublingual Daily,x... Start Date: 11/25/19 Stop Date: 12/23/19 Status: Ordered traZODone 100 mg oral tablet 1, tablet, By Mouth, Daily at bedtime, PRN, # 30 tablet, Refills 11, Tot. Refills 0, Maintenance, NEEDED FOR insomnia, 07/19/19 17:09:00 EDT, Route to Pharmacy Electronically, [facility], 172, cm, 06/25/19 10:26:00 EST, Height, 83.7, kg, 04/04... Start Date: 07/19/19 Status: Ordered Triumeq oral tablet 1 tablet, By Mouth, Daily, # 30 tablet, 11 Refills, Maintenance, 07/29/19 11:40:00 EDT, Tablet, [place], [place] -, 1 tablet By Mouth Daily,x30 days, 172, cm, 06/25/19 10:26:00 EST, Height, 83.7, kg, 04/04/19 0:17:00 EST, Dry Weight Start Date: 07/29/19 Stop Date: 07/23/20 Status: Ordered Unisolve adhesive remover #[id number] Unisolve adhesive remover #975945, See Instructions, # 1 box, Refills 11, Tot. Refills 11, Maintenance, To remove appliance at every change Dx Ulcerative Colitis, 01/31/18 11:44:15 EDT, Compound Start Date: 01/31/18 Status: Ordered Voltaren 1% topical gel See Instructions, PRN pain R knee, apply to painful knees 1-2x/day maximum; wash hands after, # 100Gm, 3 Refills, Maintenance, 06/25/19 11:49:00 EST, Gel, [place], [place] -, apply to painful knees 1-2x/day [...] 0 Refills, Maintenance, 06/25/19 11:36:00 EST, Tablet, [facility] [place], [place] -, 172, cm, 06/25/19 10:26:00 EST, [...] inguinal pain(Confirmed) Active 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) Active *[id number]- [facility] 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
--- OUTSIDE RECORDS SUMMARY | 2022-12-18 06:36 | XMS_ITS | Continuity of Care Document ---
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 Phone Noemi Ruffin MD, I Primary Care Physician [facility] Date(s): 02/04/20 - 03/05/[address] [address]- Allergies, Adverse Reactions, Alerts Substance Reaction Severity [...] VIS 10/03 3Result Comment: [12/07/2016] diluent LOT [id number] EXP 03/29/2018 4Result Comment: [07/18/2016] Liquid component: [id number], exp.: 05/2017 5Admin Note: VIS 12/13/2006 6Admin Note: vis 10/30/11 7Admin Note: vis [id number] 8Admin Note: done at [facility] this past march 9Admin Note: VIS GIVEN 2008- 10Admin Note: vis 11/25/06 Medications acetaminophen 500 mg oral tablet 1 tablet = 500 mg, By Mouth, 2 times a day, PRN for pain, take only if needed, # 60 tablet, 5 Refills, Maintenance, 04/17/19 10:49:00 EST, Tablet, [place], [place] -, 172, cm, 04/17/19 9:42:00 EST, Height, 83.7, kg, 04/04/19 0:17:00 E... Start Date: 04/17/19 Stop Date: 10/14/19 Status: Ordered albuterol CFC free 90 mcg/inh inhalation aerosol See Instructions, # 18 Gm, Refills 5 Tot. Refills 5, INHALE 2 PUFFS BY MOUTH INTO THE lungs 4 (FOUR) TIMES DAILY NEEDED FOR SHORTNESS OF BREATH OR FOR WHEEZING, [place], [place] - Start Date: 01/21/19 Status: Ordered Alcohol Pads See Instructions, # 50 each, Refills 11, Tot. Refills 11, Maintenance, E11.9 check BG daily, 12/05/18 7:49:59 EDT, Compound Start Date: 12/05/18 Status: Ordered amLODIPine 5 mg oral tablet 5 mg, 1, tablet, By Mouth, Daily, # 30 tablet, Refills 11, Tot. Refills 11, Maintenance, 06/16/19 12:27:00 EST, Route to Pharmacy Electronically, [facility] [place], [place] -, 172, cm, 06/16/19 11:20:00 EST, [...] 07/14/19 Status: Ordered Talbert Elastic barrier strips #[id number] Talbert Elastic barrier strips #954197, See Instructions, # 1 units, Refills 11, Tot. Refills 11, Maintenance, To remove appliance at every change Dx Ulcerative Colitis, 01/31/18 11:44:17 EDT, Compound Start Date: 01/31/18 Status: Ordered busPIRone 5 mg oral tablet 5 mg, 1, tablet, By Mouth, 3 times a day, for anxiety, # 90 tablet, Refills 11, Tot. Refills 11, Maintenance, 04/17/19 10:43:00 EST, Route to Pharmacy Electronically, [facility], 172, cm, 04/17/19 9:42:00 EST, Height, 83.7, kg... Start Date: 04/17/19 Stop Date: 04/11/20 Status: Ordered carvedilol 6.25 mg oral tablet 6.25 mg, 1, tablet, By Mouth, 2 times a day, # 60 tablet, Refills 11, Tot. Refills 11, Maintenance,06/16/19 12:25:00 EST, Route to Pharmacy Electronically, [place], [place] -, 172, cm, 06/16/19 11:20:00 EST, [...] 04/17/19 10:43:00 EST, Route to Pharmacy Electronically, [place], [place] -, 172, cm, 04/17/19 9:42:00 EST, Height, 83.7, kg, 04/04/19 0:17:... Start Date: 04/17/19 Stop Date: 04/11/20 Status: Ordered coloplast #63122 pouch coloplast #28185 pouch, See Instructions, # 20 each, Refills 11, Tot. Refills 11, Maintenance, use as needed for ostomy care. 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 Fax to [facility] ([facility]), 06/25/19 12:46:00 EST, Compound Start Date: 06/25/19 Status: Ordered coloplast #32049 pouch coloplast #45951 pouch, See Instructions, # 40 each, Refills 11, Tot. Refills 11, Maintenance, use as needed for ostomy care. 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 Fax to [facility] ([facility]). disp 40 coloplast pouche... Start Date: 08/05/19 Status: Ordered coloplast 54979 convex 1 piece coloplast 49874 convex 1 piece, See Instructions, # 1 box, Refills 11, Tot. Refills 11, Maintenance, use for ostomy changes Dx- uc/ileostomy, 07/25/18 11:04:40 EDT, Compound Start Date: 07/25/18 Status: Ordered coloplast bags #11909 coloplast bags #08828, See Instructions, # 20 each, Refills 11, Tot. Refills 11, Maintenance, use as needed for ostomy care Dx. ileostomy Z93.2, 07/14/19 10:56:00 EDT, Compound Start Date: 07/14/19 Status: Ordered Compression Stockings See Instructions, # 4 each, Refills 1, Tot. Refills 1, Maintenance, knee high compression hose 20-30mm 4 pair dx bilateral leg edema. R60.0 pls fax to [facility], 05/12/19 14:02:00 EST, Compound Start Date: [...] 11 Refills, Maintenance, 07/29/19 11:40:00 EDT, Tablet, [place], [place] -, 172, cm, 06/25/19 10:26:00 EST, Height, 83.7, kg, 04/04/19 0:17:00 EST, Dry Weight Start Date: 07/29/19 Stop Date: 07/23/20 Status: Ordered hydrOXYzine hydrochloride 10 mg oral tablet 2 tablet = 20 mg, By Mouth, 3 times a day, PRN for itching, # 80 tablet, 0 Refills, Maintenance, 06/25/19 11:37:00 EST, Tablet, [place], [place] -, 172, cm, 06/25/19 10:26:00 EST, [...] 01/02/19 10:34:25 EDT, Route to Pharmacy Electronically, [id number]... Start Date: 01/02/19 Stop Date: 07/01/19 Status: Ordered Januvia 50 mg oral tablet 1 tablet = 50 mg, By Mouth, Daily before breakfast, for diabetes, # 30 tablet, 11 Refills, Maintenance, 04/17/19 10:46:00 EST, Tablet, [facility] [place], [place] -, 172, cm, 04/17/19 9:42:00 EST, Height, 83.7, kg, 04/04/19 0:17:00 EST, Dry Weight Start Date: 04/17/19 Stop Date: 04/11/20 Status: Ordered LifeLine LifeLine, See Instructions, # 1 each, Refills 0, Tot. Refills 0, Maintenance, use to call for help in the home as directed length of need 99 B20, F32.9, F11.2 Pt address/#: [address] [place] [address], [address]. [phone] Critical Signal... Start Date: 01/15/18 Status: Ordered [...] Date: 09/12/18 Status: Ordered No-nsting skin prep #[id number] No-nsting skin prep #[id number], See Instructions, # 1 bottle, Refills 11, Tot. Refills 11, Maintenance, Use as needed for ostomy care Dx: colostomy, 01/31/18 11:44:14 EDT, Compound Start Date: 01/31/18 Status: Ordered omeprazole 20 mg oral enteric coated capsule 1 capsule = 20 mg, By Mouth, Daily, PRN only if needed for acid reflux symptoms, # 30 capsule, 5 Refills, Maintenance, 04/17/19 10:49:00 EST, EC Capsule, [place], [place] -, 172, cm,04/17/19 9:42:00 EST, Height, [...] tablet, 5 Refills, Maintenance, 01/19/20 15:08:00 EDT, [place], [place] - [id number], 172, cm, 11/25/19 11:30:00 EDT, Height, 83.7,kg, [...] 12:26:00 EST, Tablet, [facility] [place], [place] -, 172, cm, 06/16/19 11:20:00 EST, [...] mg sublingual film 1.5 film, Sublingual, Daily, [id number], MassPATchecked. dissolve under tongue, # 42 film, [...] 11 Refills, Maintenance, 07/29/19 11:40:00 EDT, Tablet, [place], [place] -, 1 tablet By Mouth Daily,x30 days, 172, cm, 06/25/19 10:26:00 EST, Height, 83.7, kg, 04/04/19 0:17:00 EST, Dry Weight Start Date: 07/29/19 Stop Date: 07/23/20 Status: Ordered Unisolve adhesive remover #658634 Unisolve adhesive remover #556643, See Instructions, # 1 box, Refills 11, Tot. Refills 11, Maintenance, To remove appliance at every change Dx Ulcerative Colitis, 01/31/18 11:44:15 EDT, Compound Start Date: 01/31/18 Status: Ordered Voltaren 1% topical gel See Instructions, PRN pain R knee, apply to painful knees 1-2x/day maximum; wash hands after, # 100Gm, 3 Refills, Maintenance, 06/25/19 11:49:00 EST, Gel, [place], [place] -, apply to painful knees 1-2x/day [...] 0 Refills, Maintenance, 06/25/19 11:36:00 EST, Tablet, [facility], 172, cm, 06/25/19 10:26:00 EST, Height, 83.7, [...] inguinal pain(Confirmed) Active 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) Active *[id number] Care Partn er-Jesica Jeter(Confirmed) Active traumatic splenectomy [...]
--- OUTSIDE RECORDS SUMMARY | 2022-12-18 06:36 | XMS_ITS | Continuity of Care Document ---
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 Role Phone Noemi Ruffin MD, I Primary Care Physician [facility]counter [facility] Date(s): 04/19/20 - 05/19/[address] [address]- Allergies, Adverse Reactions, Alerts Substance Reaction Severity [...] Pneumococcal Poly (PPV23) (oldterm) 10 02/22/07 Gi jugren Pneumococcal Poly (PPV23) (oldterm) 11/05/87 Given Pneumococcal Vacc (oldterm) 10/28/01 Given 1Admin Note: vis 2Admin Note: VIS 10/03 3Result Comment: [12/07/2016] diluent LOT [id number] EXP 03/29/2018 4Result Comment: [07/18/2016] Liquid component: [id number], exp.: 05/2017 5Admin Note: VIS 12/13/2006 6Admin Note: vis 10/30/11 7Admin Note: vis [id number] 8Admin Note: done at [facility] this past march 9Admin Note: VIS GIVEN 2008- 10Admin Note: vis 11/25/06 Medications acetaminophen 500 mg oral tablet 1 tablet = 500 mg, By Mouth, 2 times a day, PRN for pain, take only if needed, # 60 tablet, 5 Refills, Maintenance, 04/17/19 10:49:00 EST, Tablet, [facility] [place], [place] -, 172, cm, 04/17/19 9:42:00 EST, Height, 83.7, kg, 04/04/19 0:17:00 E... Start Date: 04/17/19 Stop Date: 10/14/19 Status: Ordered albuterol CFC free 90 mcg/inh inhalation aerosol See Instructions, # 18 Gm, Refills 5 Tot. Refills 5, INHALE 2 PUFFS BY MOUTH INTO THE lungs 4 (FOUR) TIMES DAILY NEEDED FOR SHORTNESS OF BREATH OR FOR WHEEZING, [place], [place] - Start Date: 01/21/19 Status: Ordered Alcohol Pads See Instructions, # 50 each, Refills 11, Tot. Refills 11, Maintenance, E11.9 check BG daily, 12/05/18 7:49:59 EDT, Compound Start Date: 12/05/18 Status: Ordered amLODIPine 5 mg oral tablet 5 mg, 1, tablet, By Mouth, Daily at bedtime, # 30 tablet, Refills 11, Tot. Refills 11, Maintenance,06/16/19 12:27:00 EST, Route to Pharmacy Electronically, [place], [place] -, 172, cm, 06/16/19 11:20:00 EST, [...] 07/14/19 Status: Ordered Talbert Elastic barrier strips #[id number] Talbert Elastic barrier strips #[id number], See Instructions, # 1 units, Refills 11, [...] 04/19/20 11:34:00 EST, Route to Pharmacy Electronically, [place], [place]- [id number], 173, cm, 04/12/20 11:01:00 EST, Heigh... Start Date: 04/19/20 Stop Date: 11/15/20 Status: Ordered carvedilol 6.25 mg oral tablet 6.25 mg, 1, tablet, By Mouth, 2 times a day, # 60 tablet, Refills 11, Tot. Refills 11, Maintenance,06/16/19 12:25:00 EST, Route to Pharmacy Electronically, [place], [place] -, 172, cm, 06/16/19 11:20:00 EST, Height, 83.7, kg, ... Start Date: 06/16/19 Stop Date: 06/10/20 Status: Ordered cetirizine 10 mg oral tablet 1 tablet = 10 mg, By Mouth, Daily, PRN if needed for allergy symptoms, do not blister pack, # 90 tablet, 1 Refills, Maintenance, 04/19/20 11:34:00 EST, Tablet, [place], [place] - [id number], 173, cm, 04/12/20 11:01:00 EST, Height, 86.... [...] 1 Refills, Maintenance, 03/16/20 13:27:00 EST, Granule, [facility] [place], [place] - [id number], Partial fill u... Start Date: 03/16/20 Stop Date: 05/15/20 Status: Ordered coloplast #37365 pouch coloplast #29842 pouch, See Instructions, # 20 each, Refills 11, Tot. Refills 11, Maintenance, use as needed for ostomy care. 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 Fax to [facility] ([facility]), 06/25/19 12:46:00 EST, Compound Start Date: 06/25/19 Status: Ordered coloplast #55359 pouch coloplast #87077 pouch, See Instructions, # 40 each, Refills 11, Tot. Refills 11, Maintenance, use as needed for ostomy care. 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 Fax to [facility] ([facility]). disp 40 coloplast pouche... Start Date: 08/05/19 Status: Ordered coloplast 12006 convex 1 piece coloplast 79701 convex 1 piece, See Instructions, # 1 box, Refills 11, Tot. Refills 11, Maintenance, use for ostomy changes Dx- uc/ileostomy, 07/25/18 11:04:40 EDT, Compound Start Date: 07/25/18 Status: Ordered coloplast bags #34564 coloplast bags #68628, See Instructions, # 20 each, Refills 11, Tot. Refills 11, Maintenance, use as needed for ostomy care Dx. ileostomy Z93.2, 07/14/19 10:56:00 EDT, Compound Start Date: 07/14/19 Status: Ordered Compression Stockings See Instructions, # 4 each, Refills 1, Tot. Refills 1, Maintenance, knee high compression hose 20-30mm 4 pair dx bilateral leg edema. R60.0 pls fax to [facility], 05/12/19 14:02:00 EST, Compound Start [...] 11 Refills, Maintenance, 07/29/19 11:40:00 EDT, Tablet, [facility] [place], [place] -, 172, cm, 06/25/19 10:26:00 EST, Height, 83.7, kg, 04/04/19 0:17:00 EST, Dry Weight Start Date: 07/29/19 Stop Date: 07/23/20 Status: Ordered Januvia 50 mg oral tablet 1 tablet = 50 mg, By Mouth, Daily before breakfast, for diabetes, # 90 tablet, 0 Refills, Maintenance, 04/19/20 11:35:00 EST, Tablet, [facility] [place], [place] - [id number], 173, cm, 04/12/2011:01:00 EST, Height, 86.8, kg, 04/07/20 8:07:00 ES... Start Date: 04/19/20 Stop Date: 04/14/21 Status: Ordered LifeLine LifeLine, See Instructions, # 1 each, Refills 0, Tot. Refills 0, Maintenance, use to call for help in the home as directed length of need 99 B20, F32.9, F11.2 Pt address/#: [address] [place] [address], [address] [phone] Critical Signal... Start Date: 01/15/18 Status: Ordered [...] Date: 09/12/18 Status: Ordered No-nsting skin prep #[id number] No-nsting skin prep #63583616, See Instructions, # 1 bottle, Refills 11, Tot. Refills 11, Maintenance, Use as needed for ostomy care Dx: colostomy, 01/31/18 11:44:14 EDT, Compound Start Date: 01/31/18 Status: Ordered omeprazole 20 mg oral enteric coated capsule 1 capsule = 20 mg, By Mouth, Daily, PRN only if needed for acid reflux symptoms, # 90 capsule, 0 Refills, Maintenance, 04/19/20 11:34:00 EST, EC Capsule, [facility] [place], [place] - [id number], 173, cm, 04/12/20 11:01:00 EST, Height, 86.8, [...] 11 Refills, Maintenance, 06/16/19 12:26:00 EST, Tablet, [place], [place] -, 172, cm, 06/16/19 11:20:00 EST, [...] mg sublingual film 2 film, Sublingual, Daily, [id number], MassPATchecked. dissolve under tongue, # 56 film, 0 Refills, Maintenance, 04/28/20 15:01:00 EST, [place], [place] - [id number], 2 film Sublingual Daily,x28 days,Instr:[id number], MassPATchecked. d... Start Date: 04/28/20 Stop Date: 05/26/20 Status: Ordered traZODone 100 mg oral tablet 1, tablet, By Mouth, Daily at bedtime, PRN, # 30 tablet, Refills 11, Tot. Refills 0, Maintenance, NEEDED FOR insomnia, 07/19/19 17:09:00 EDT, Route to Pharmacy Electronically, [facility], 172, cm, 06/25/19 10:26:00 EST, Height, 83.7, kg, 04/04... Start Date: 07/19/19 Status: Ordered Triumeq oral tablet 1 tablet, By Mouth, Daily, # 30 tablet, 11 Refills, Maintenance, 07/29/19 11:40:00 EDT, Tablet, [facility] [place], [place] -, 1 tablet By Mouth Daily,x30 days, 172, cm, 06/25/19 10:26:00 EST, Height, 83.7, kg, 04/04/19 0:17:00 EST, Dry Weight Start Date: 07/29/19 Stop Date: 07/23/20 Status: Ordered Unisolve adhesive remover #140763 Unisolve adhesive remover #131792, See Instructions, # 1 box, Refills 11, Tot. Refills 11, Maintenance, To remove appliance at every change Dx Ulcerative Colitis, 01/31/18 11:44:15 EDT, Compound Start Date: 01/31/18 Status: Ordered warfarin 1 mg oral tablet See Instructions, Take 1-10 tablets By Mouth Daily as directed by [facility], # 150 tablet, 0 Refills, Maintenance, 04/12/20 8:51:00 EST, Tablet, [facility]- [facility] By [facility], Partial fill upon patient requestif the [...] inguinal pain(Confirmed) Active 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) Active *[phone] Care Partn er-Jesica Bookerdo(Confirmed) Active traumatic splenectomy [...]
--- OUTSIDE RECORDS SUMMARY | 2022-12-18 06:36 | XMS_ITS | Continuity of Care Document ---
Author Name Unknown Organization [facility] Address [address] [place] [address]- Care Team Providers Care Bungy Jump Master Name Role Phone Noemi Ruffin MD, I Primary Care Physician Encounter [facility] Date(s): 12/01/19 - 12/31/[address] [address]- [facility] Allergies, Adverse Reactions, Alerts Substance Reaction [...] VIS 10/03 3Result Comment: [12/07/2016] diluent LOT [id number] EXP 03/29/2018 4Result Comment: [07/18/2016] Liquid component: [id number], exp.: 05/2017 5Admin Note: VIS 12/13/2006 6Admin Note: vis 10/30/11 7Admin Note: vis [id number] 8Admin Note: done at [facility] this past march 9Admin Note: VIS GIVEN 2008- 10Admin Note: vis 11/25/06 Medications acetaminophen 500 mg oral tablet 1 tablet = 500 mg, By Mouth, 2 times a day, PRN for pain, take only if needed, # 60 tablet, 5 Refills, Maintenance, 04/17/19 10:49:00 EST, Tablet, [place], [place] -, 172, cm, 04/17/19 9:42:00 EST, Height, 83.7, kg, 04/04/19 0:17:00 E... Start Date: 04/17/19 Stop Date: 10/14/19 Status: Ordered albuterol CFC free 90 mcg/inh inhalation aerosol See Instructions, # 18 Gm, Refills 5 Tot. Refills 5, INHALE 2 PUFFS BY MOUTH INTO THE lungs 4 (FOUR) TIMES DAILY NEEDED FOR SHORTNESS OF BREATH OR FOR WHEEZING, [place], [place] - Start Date: 01/21/19 Status: Ordered Alcohol Pads See Instructions, # 50 each, Refills 11, Tot. Refills 11, Maintenance, E11.9 check BG daily, 12/05/18 7:49:59 EDT, Compound Start Date: 12/05/18 Status: Ordered amLODIPine 5 mg oral tablet 5 mg, 1, tablet, By Mouth, Daily, # 30 tablet, Refills 11, Tot. Refills 11, Maintenance, 06/16/19 12:27:00 EST, Route to Pharmacy Electronically, [facility] [place], [place] -, 172, cm, 06/16/19 11:20:00 EST, [...] 07/14/19 Status: Ordered Talbert Elastic barrier strips #[id number] Talbert Elastic barrier strips #[id number], See Instructions, # 1 units, Refills 11, Tot. Refills 11, Maintenance, To remove appliance at every change Dx Ulcerative Colitis, 01/31/18 11:44:17 EDT, Compound Start Date: 01/31/18 Status: Ordered busPIRone 5 mg oral tablet 5 mg, 1, tablet, By Mouth, 3 times a day, for anxiety, # 90 tablet, Refills 11, Tot. Refills 11, Maintenance, 04/17/19 10:43:00 EST, Route to Pharmacy Electronically, [place], [place] -, 172, cm, 04/17/19 9:42:00 EST, Height, 83.7, kg... Start Date: 04/17/19 Stop Date: 04/11/20 Status: Ordered carvedilol 6.25 mg oral tablet 6.25 mg, 1, tablet, By Mouth, 2 times a day, # 60 tablet, Refills 11, Tot. Refills 11, Maintenance,06/16/19 12:25:00 EST, Route to Pharmacy Electronically, [place], [place] -, 172, cm, 06/16/19 11:20:00 EST, [...] 04/17/19 10:43:00 EST, Route to Pharmacy Electronically, [place], [place] -, 172, cm, 04/17/19 9:42:00 EST, Height, 83.7, kg, 04/04/19 0:17:... Start Date: 04/17/19 Stop Date: 04/11/20 Status: Ordered Citrucel 500 mg oral tablet 2 tablet = 1,000 mg, By Mouth, Daily, for 60 days, with plenty of water, # 120 tablet, 1 Refills, Acute 02/12/20 16:54:00 EDT, 10/15/19 16:54:00 EDT, [facility], 172, cm, 06/25/19 10:26:00 EST, Height, 83.7, kg, 04/04/19 0:17:... Start Date: 10/15/19 Stop Date: 02/12/20 Status: Ordered coloplast #51549 pouch coloplast #46737 pouch, See Instructions, # 20 each, Refills 11, Tot. Refills 11, Maintenance, use as needed for ostomy care. 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 Fax to [facility]), 06/25/19 12:46:00 EST, Compound Start Date: 06/25/19 Status: Ordered coloplast #91546 pouch coloplast #47699 pouch, See Instructions, # 40 each, Refills 11, Tot. Refills 11, Maintenance, use as needed for ostomy care. 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 Fax to [facility]). disp 40 coloplast pouche... Start Date: 08/05/19 Status: Ordered coloplast 98889 convex 1 piece coloplast 64830 convex 1 piece, See Instructions, # 1 box, Refills 11, Tot. Refills 11, Maintenance, use for ostomy changes Dx- uc/ileostomy, 07/25/18 11:04:40 EDT, Compound Start Date: 07/25/18 Status: Ordered coloplast bags #21704 coloplast bags #49658, See Instructions, # 20 each, Refills 11, Tot. Refills 11, Maintenance, use as needed for ostomy care Dx. ileostomy Z93.2, 07/14/19 10:56:00 EDT, Compound Start Date: 07/14/19 Status: Ordered Compression Stockings See Instructions, # 4 each, Refills 1, Tot. Refills 1, Maintenance, knee high compression hose 20-30mm 4 pair dx bilateral leg edema. R60.0 pls fax to [facility], 05/12/19 14:02:00 EST, Compound Start Date: [...] 11 Refills, Maintenance, 07/29/19 11:40:00 EDT, Tablet, [facility] [place], [place] -, 172, cm, 06/25/19 10:26:00 EST, Height, 83.7, kg, 04/04/19 0:17:00 EST, Dry Weight Start Date: 07/29/19 Stop Date: 07/23/20 Status: Ordered hydrOXYzine hydrochloride 10 mg oral tablet 2 tablet = 20 mg, By Mouth, 3 times a day, PRN for itching, # 80 tablet, 0 Refills, Maintenance, 06/25/19 11:37:00 EST, Tablet, [place], [place] -, 172, cm, 06/25/19 10:26:00 EST, [...] 01/02/19 10:34:25 EDT, Route to Pharmacy Electronically, [id number]... Start Date: 01/02/19 Stop Date: 07/01/19 Status: Ordered Januvia 50 mg oral tablet 1 tablet = 50 mg, By Mouth, Daily before breakfast, for diabetes, # 30 tablet, 11 Refills, Maintenance, 04/17/19 10:46:00 EST, Tablet, [place], [place] -, 172, cm, 04/17/19 9:42:00 EST, Height, 83.7, kg, 04/04/19 0:17:00 EST, Dry Weight Start Date: 04/17/19 Stop Date: 04/11/20 Status: Ordered LifeLine LifeLine, See Instructions, # 1 each, Refills 0, Tot. Refills 0, Maintenance, use to call for help in the home as directed length of need 99 B20, F32.9, F11.2 Pt address/#: [address] [place] [address], [address]. [phone] Critical Signal... Start Date: 01/15/18 Status: Ordered [...] Date: 09/12/18 Status: Ordered No-nsting skin prep #[id number] No-nsting skin prep #[id number], See Instructions, # 1 bottle, Refills 11, Tot. Refills 11, Maintenance, Use as needed for ostomy care Dx: colostomy, 01/31/18 11:44:14 EDT, Compound Start Date: 01/31/18 Status: Ordered omeprazole 20 mg oral enteric coated capsule 1 capsule = 20 mg, By Mouth, Daily, PRN only if needed for acid reflux symptoms, # 30 capsule, 5 Refills, Maintenance, 04/17/19 10:49:00 EST, EC Capsule, [place], [place] -, 172, cm,04/17/19 9:42:00 EST, Height, [...] tablet, 5 Refills, Maintenance, 07/19/19 13:20:00 EDT, [facility], 172, cm, 06/25/19 10:26:00 EST, Height, 83.7, [...] 11 Refills, Maintenance, 06/16/19 12:26:00 EST, Tablet, [facility] [place], [place] -, 172, cm, 06/16/19 11:20:00 EST, [...] mg sublingual film 3 each, Sublingual, Daily, [id number], MassPATchecked. dissolve under tongue (ok to divide dose 3x/dif helps w/ pain), # 84 film, 0 Refills, Maintenance, 11/25/19 11:54:00 EDT, [place], [place] - [id number], 3 each Sublingual Daily,x... Start Date: 11/25/19 Stop Date: 12/23/19 Status: Ordered traZODone 100 mg oral tablet 1, tablet, By Mouth, Daily at bedtime, PRN, # 30 tablet, Refills 11, Tot. Refills 0, Maintenance, NEEDED FOR insomnia, 07/19/19 17:09:00 EDT, Route to Pharmacy Electronically, [facility], 172, cm, 06/25/19 10:26:00 EST, Height, 83.7, kg, 04/04... Start Date: 07/19/19 Status: Ordered Triumeq oral tablet 1 tablet, By Mouth, Daily, # 30 tablet, 11 Refills, Maintenance, 07/29/19 11:40:00 EDT, Tablet, [place], [place] -, 1 tablet By Mouth Daily,x30 days, 172, cm, 06/25/19 10:26:00 EST, Height, 83.7, kg, 04/04/19 0:17:00 EST, Dry Weight Start Date: 07/29/19 Stop Date: 07/23/20 Status: Ordered Unisolve adhesive remover #047738 Unisolve adhesive remover #639260, See Instructions, # 1 box, Refills 11, Tot. Refills 11, Maintenance, To remove appliance at every change Dx Ulcerative Colitis, 01/31/18 11:44:15 EDT, Compound Start Date: 01/31/18 Status: Ordered Voltaren 1% topical gel See Instructions, PRN pain R knee, apply to painful knees 1-2x/day maximum; wash hands after, # 100Gm, 3 Refills, Maintenance, 06/25/19 11:49:00 EST, Gel, [place], [place] -, apply to painful knees 1-2x/day [...] 0 Refills, Maintenance, 06/25/19 11:36:00 EST, Tablet, [facility] [place], [place] -, 172, cm, 06/25/19 10:26:00 EST, [...] inguinal pain(Confirmed) Active 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) Active *[id number]- Care Part ner Jacky Sandhu(Confirmed) Active traumatic [...]
--- OUTSIDE RECORDS SUMMARY | 2022-12-18 06:36 | XMS_ITS | Continuity of Care Document ---
Author Name Unknown Organization [facility] Address [address] [place] [address]- Care Team Providers Care Quill Cleaner Name Role Phone Mora Gooden MD Primary Care Physician Encounter [facility] [id number] Date(s): 08/01/22 - 08/31/[address] [address]- Attending Physician: AdmJorge A decker Admitting Physician: AdmtrJorge A Referring Physician: Admtr, Ar8 Allergies, Adverse Reactions, Alerts Substance Reaction Severity Status ampicillin Active aspirin BLEEDING Persistent Severe Active NSAIDs bleeding Persistent Severe Active Pollen NASAL CONGESTION SNEEZING Persistent Mode rate Active Immunizations Given and Recorded Vaccine Date Status Refusal Reason [id number] 12y+ bivalent booster vax 02/02/22 Recorded SARS-CoV-2 [...] VIS 10/03 4Result Comment: [12/07/2016] diluent LOT [id number] EXP 03/29/2018 5Result Comment: [07/18/2016] Liquid component: [id number], exp.: 05/2017 6Admin Note: VIS 12/13/2006 7Admin Note: vis 10/30/11 8Admin Note: vis [id number] 9Admin Note: done at [facility] this past march 10Admin Note: VIS GIVEN 2008- 11Admin Note: vis 11/25/06 Medications acetaminophen 500 mg oral tablet 1 tablet, By Mouth, 4 times a day, PRN NEEDED FOR PAIN, TAKE ONLY IF needed, # 100 tablet, 5 Refills, Maintenance, 04/14/22 15:58:00 EST, [facility] [place], [place] - [phone], 167, cm, 04/10/22 11:48:00 EST, Height, 89.9, kg, 05/25/21 10:... Start Date: 04/14/22 Status: Ordered Albuterol (Eqv-ProAir HFA) 90 mcg/inh inhalation aerosol 2 puffs, Inhalation, 4 times a day, PRN NEEDED FOR SHORTNESS OF BREATH OR FOR WHEEZING, # 25.5 Gm, 5 Refills, [facility], 4, INHALE 2 PUFFS [...] 09/09/21 Status: Ordered Talbert Elastic barrier strips #061314 Talbert Elastic barrier strips #509716, See Instructions, # 120 each, Refills 11, Tot. Refills 11, Maintenance, Dx: K51; Z93. 3 sig: use 4 strips a day with ostomy bag. disp: 4 bags of 30 strips = 120 strips per month. Fax to [facility] [phone], 04... Start Date: 08/21/22 Status: Ordered busPIRone [...] 22:23:00 EST, Route to Pharmacy Electronically, [facility], 167, cm, 04/10/22 11:48:00 EST, Height, 89.9, kg, 05/25/21 10:21:00 EST, Dry Weight Start Date: 06/26/22 Status: Ordered cetirizine 10 mg oral tablet See Instructions, TAKE 1 TABLET BY MOUTH ONCE DAILY NEEDED for allergy, # 90 tablet, 1 Refills, Maintenance, 08/24/22 11:40:00 EDT, [facility], 167, cm, 08/01/22 10:08:00 EDT, Height, 89.9, kg, 05/25/21 10:21:00 EST, Dry Weight Start Date: 08/24/22 Status: Ordered coloplast #93167 pouch coloplast #03121 pouch, See Instructions, # 20 each, Refills 11, Tot. Refills 11, Maintenance, use as needed for ostomy care. 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 Fax to [facility] ([facility]), 06/25/19 12:46:00 EST, Compound Start Date: 06/25/19 Status: Ordered coloplast #77450 pouch coloplast #49849 pouch, See Instructions, # 40 each, Refills 11, Tot. Refills 11, Maintenance, use as needed for ostomy care. 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 Fax to [facility] ([facility]). disp 40 coloplast pouche... Start Date: 08/05/19 Status: Ordered coloplast 05701 convex 1 piece coloplast 93779 convex 1 piece, See Instructions, # 1 box, Refills 11, Tot. Refills 11, Maintenance, use for ostomy changes Dx- uc/ileostomy, 07/25/18 11:04:40 EDT, Compound Start Date: 07/25/18 Status: Ordered coloplast bags #79380 coloplast bags #46833, See Instructions, # 20 each, Refills 11, [...] leg edema. R60.0 pls fax to [facility], 05/12/19 14:02:00 EST, Compound Start Date: [...] 5 Refills, Maintenance, 06/27/22 16:38:00 EST, [facility], 30, APPLY TO PAINFUL KNEES 1 TO 2 TIMES A DAY maximum. WASH HANDS AFTER USE, 167, cm,... Start Date: 06/27/22 Status: Ordered Dovato 50 mg-300 mg oral tablet 1 tablet, By Mouth, Daily, *pharmacy: please change triumeq to dovato with the next monthly medication delivery., # 30 tablet, 11 Refills, Maintenance, 04/21/22 14:15:00 EST, Tablet, [facility] [place], [place] - [phone], Partial fill upon pa... Start Date: 04/21/22 [...] tablet, 11 Refills, Maintenance, 06/27/22 16:38:00 EST, [facility], 167, cm, 04/10/22 11:48:00 [...] tablet, 5 Refills, Maintenance, 08/24/22 11:41:00 EDT, [place], [place] - [phone], 167, cm, 08/01/22 10:08:00 EDT, Height, 89.9, [...] 11 Refills, Maintenance, 07/07/22 11:45:00 EST, Tablet, [facility] [place], [place] - [phone], Partial fill upon patient request if the prescription is for a schedule II opioid drug., 167,... Start Date: 07/07/22 Status: Ordered LifeLine LifeLine, See Instructions, # 1 each, Refills 0, Tot. Refills 0, Maintenance, use to call for help in the home as directed length of need 99 B20, F32.9, F11.2 Pt address/#: [address] [place] [address], [address] [phone] Critical Signal... Start Date: 01/15/18 Status: Ordered [...] Date: 09/12/18 Status: Ordered No-nsting skin prep #[id number] No-nsting skin prep #93438038, See Instructions, # 1 bottle, Refills 11, Tot. Refills 11, Maintenance, Use as needed for ostomy care Dx: colostomy, 01/31/18 11:44:14 EDT, Compound Start Date: 01/31/18 Status: Ordered omeprazole 40 mg oral enteric coated capsule 1 capsule, By Mouth, 2 times a day, # 60 capsule, 1 Refills, Maintenance, 07/24/22 17:23:00 EDT, [facility], 167, cm, 04/10/22 11:48:00 [...] Gm, 5 Refills, Maintenance, 08/24/22 15:20:00 EDT, [facility], 30, DISSOLVE 17GM IN WATER BEFORE [...] 84film, 0 Refills, Maintenance, 08/08/22 21:41:00 EDT, [place], [place] - [id number], 3 film Sublingual Daily,x28 days,Instr:pls fill... Start Date: 08/08/22 Stop Date: 09/05/22 Status: Ordered traZODone 100 mg oral tablet 1, tablet, By Mouth, Daily at bedtime, PRN, # 90 tablet, Refills 1, Maintenance, NEEDED FOR insomnia, 06/27/22 16:38:00 EST, Route to Pharmacy Electronically, [facility], 167, cm, 04/10/22 11:48:00 EST, Height, 89.9, kg, 05/25/21 10:21:00 EST,... Start Date: 06/27/22 Status: Ordered Trulicity Pen 0.75 mg/0.5 mL subcutaneous solution 0.5 mL = 0.75 mg, Subcutaneous Injection, Every week, rotate injection sites, # 2 mL, 11 Refills, Maintenance, 07/07/22 11:45:00 EST, Solution, [place], [place] - [phone], Partialfill upon patient request if the prescription is fo... Start Date: 07/07/22 Status: Ordered Unisolve adhesive remover #894899 Unisolve adhesive remover #551079, See Instructions, # 1 box, Refills 11, [...] Confirmed Active NIDDM in obese Confirmed Active *[id number] Toolmaker Nitin Hancock Confirmed Active [facility] (scapholunate advanced [...] age 20-21 until 10 years ago.. Sex Laboratory * Event Display: Laboratory Result Scanned Authored Date: * Event Display: Non BH Lab Results Authored Date: * Event Display: Laboratory Result Scanned Authored Date: Radiology * Event Display: IR Special Procedures, Non-BH Authored Date: * Event Display: IR Special Procedures Authored Date: Note * Vivi Rhodes: PERFORM Event Display: Case Management Discharge Plan Authored Date: Today CM spoke to darren at [facility] [employer] and she ask if i had hear [...] call I will close out his case. CM said ok and If I speak to him I will let him know. Patient Care team information Care Team Personnel Name: Maru Grey NP Position: [facility] PCO Associate Professional Member Role: Primary Care Nurse Address: Address: [address] [place] [address] [place] [address]- Name: Arianne George RN Position: [facility] RN Member Role: Primary Care Nurse Name: Radha Ewing RN Position: [facility] RN Member Role: Primary Care Nurse Name: Macey Trevino RN [facility] RN Member Role: Primary Care Nurse [...] Care Nurse Name: Lauryn Jiménez RN Position: [facility] Hospital Enterprise Sales Person Member Role: Primary Care Nurse Name: Jorge [...] Member Role: Primary Care Nurse Address: Address: [address] [place] [address]- Name: Luisa Zavaleta RN [facility] [...] Care Physician Member Role: PCP Address: Address: [address] [place] [address]- Care Team Related Persons Name: PEGGY GARDNER Address: home [address] [place] [address] Name: JLUIS WHITE STAGE NAME Name: ADIA WINTERS
--- OUTSIDE RECORDS SUMMARY | 2022-12-18 06:36 | XMS_ITS | Continuity of Care Document ---
Author Name Unknown Organization [facility] Address [address] [place] [address]- Care Team Providers Care Wire Twister Name Role Phone Noemi Ruffin MD, I Primary Care Physician [phone] Encounter [facility] Date(s): 03/25/19 - 05/08/[address] [address]- [facility] Attending Physician: Noemi Ruffin MD, I Admitting Physician: Noemi Ruffin MD, I Referring Physician: Noemi Ruffin MD, I Allergies, [...] VIS 10/03 3Result Comment: [12/07/2016] diluent LOT [id number] EXP 03/29/2018 4Result Comment: [07/18/2016] Liquid component: [id number], exp.: 05/2017 5Admin Note: VIS 12/13/2006 6Admin Note: vis 10/30/11 7Admin Note: vis [id number] 8Admin Note: done at [facility] this past march 9Admin Note: VIS GIVEN 2008- 10Admin Note: vis 11/25/06 Medications acetaminophen 500 mg oral tablet 1 tablet = 500 mg, By Mouth, 2 times a day, PRN for pain, take only if needed, # 60 tablet, 5 Refills, Maintenance, 04/17/19 10:49:00 EST, Tablet, [facility] [place], [place] -, 172, cm, 04/17/19 9:42:00 EST, Height, 83.7, kg, 04/04/19 0:17:00 E... Start Date: 04/17/19 Stop Date: 10/14/19 Status: Ordered albuterol CFC free 90 mcg/inh inhalation aerosol See Instructions, # 18 Gm, Refills 5 Tot. Refills 5, INHALE 2 PUFFS BY MOUTH INTO THE lungs 4 (FOUR) TIMES DAILY NEEDED FOR SHORTNESS OF BREATH OR FOR WHEEZING, [facility] Start Date: 01/21/19 Status: Ordered Alcohol Pads See Instructions, # 50 each, Refills 11, Tot. Refills 11, Maintenance, E11.9 check BG daily, 12/05/18 7:49:59 EDT, Compound Start Date: 12/05/18 Status: Ordered amLODIPine 10 mg oral tablet 1 tablet = 10 mg, By Mouth, Daily, # 30 tablet, 11 Refills, Maintenance, 04/17/19 10:46:00 EST, Tablet, [place], [place] -, 172, cm, 04/17/19 9:42:00 EST, Height, 83.7, kg, 04/04/19 0:17:00 EST, Dry Weight Start Date: 04/17/19 Stop Date: 04/11/20 Status: Ordered azelastine 0.05% ophthalmic solution 1 [...] 09/12/18 Status: Ordered Talbert Elastic barrier strips #451651 Talbert Elastic barrier strips #991009, See Instructions, # 1 units, Refills 11, Tot. Refills 11, Maintenance, To remove appliance at every change Dx Ulcerative Colitis, 01/31/18 11:44:17 EDT, Compound Start Date: 01/31/18 Status: Ordered busPIRone 5 mg oral tablet 5 mg, 1, tablet, By Mouth, 3 times a day, for anxiety, # 90 tablet, Refills 11, Tot. Refills 11, Maintenance, 04/17/19 10:43:00 EST, Route to Pharmacy Electronically, [place], [place] -, 172, cm, 04/17/19 9:42:00 EST, Height, 83.7, kg... Start Date: 04/17/19 Stop Date: 04/11/20 Status: Ordered cetirizine 10 mg oral tablet [...] 04/17/19 10:43:00 EST, Route to Pharmacy Electronically, [facility] [place], [place] -, 172, cm, 04/17/19 9:42:00 EST, Height, 83.7, kg, 04/04/19 0:17:... Start Date: 04/17/19 Stop Date: 04/11/20 Status: Ordered coloplast #77289 pouch coloplast #30295 pouch, See Instructions, # 20 each, Refills 11, Tot. Refills 11, Maintenance, use as needed for ostomy care dx + ileostomy, 09/12/18 10:12:37 EDT, Compound Start Date: 09/12/18 Status: Ordered coloplast 55000 convex 1 piece coloplast 58581 convex 1 piece, See Instructions, # 1 box, Refills 11, Tot. Refills 11, Maintenance, use for ostomy changes Dx- uc/ileostomy, 07/25/18 11:04:40 EDT, Compound Start Date: 07/25/18 Status: Ordered Compression Stockings See Instructions, # 4 each, Refills 1, Tot. Refills 1, Maintenance, knee high compression hose 20-30mm 4 pair dx bilateral leg edema pls fax to [facility], 05/08/19 12:02:00 EST, Compound Start Date: 05/08/19 Status: Ordered contour next EZ lancets contour [...] 01/02/19 10:34:25 EDT, Route to Pharmacy Electronically, [id number], Kate... Start Date: 01/02/19 Stop Date: 07/01/19 Status: Ordered Januvia 50 mg oral tablet 1 tablet = 50 mg, By Mouth, Daily before breakfast, for diabetes, # 30 tablet, 11 Refills, Maintenance, 04/17/19 10:46:00 EST, Tablet, [place], [place] -, 172, cm, 04/17/19 9:42:00 EST, Height, 83.7, kg, 04/04/19 0:17:00 EST, Dry Weight Start Date: 04/17/19 Stop Date: 04/11/20 Status: Ordered LifeLine LifeLine, See Instructions, # 1 each, Refills 0, Tot. Refills 0, Maintenance, use to call for help in the home as directed length of need 99 B20, F32.9, F11.2 Pt address/#: [address] [place] [address], [address] [phone] Critical Signal... Start Date: 01/15/18 Status: Ordered no sting skin prep spray no sting skin prep spray, See Instructions, # 1 bottle, Refills 11, Tot. Refills 11, Maintenance, use as needed for ostomy care dx = illeostomy, 09/12/18 10:12:45 EDT, Compound Start Date: 09/12/18 Status: Ordered No-nsting skin prep #[id number] No-nsting skin prep #34334966, See Instructions, # 1 bottle, Refills 11, Tot. Refills 11, Maintenance, Use as needed for ostomy care Dx: colostomy, 01/31/18 11:44:14 EDT, Compound Start Date: 01/31/18 Status: Ordered omeprazole 20 mg oral enteric coated capsule 1 capsule = 20 mg, By Mouth, Daily, PRN only if needed for acid reflux symptoms, # 30 capsule, 5 Refills, Maintenance, 04/17/19 10:49:00 EST, EC Capsule, [place], [place] -, 172, cm,04/17/19 9:42:00 EST, Height, [...] tablet, 2 Refills, Maintenance, 04/17/19 10:45:00 EST, [facility] [place], [place] -, 172, cm, 04/17/19 9:42:00 EST, [...] mg sublingual film 2 each, Sublingual, Daily, [id number] MassPAT reviewed dissolve under the tongue fax to [facility], # 56 each, 0 Refills, Maintenance, 04/22/19 12:09:00 EST Start Date: 04/22/19 Stop Date: 05/20/19 Status: Ordered traZODone 100 mg oral tablet 100 mg, 1, tablet, By Mouth, Daily at bedtime, PRN, # 30 tablet, Refills 11, Tot. Refills 11, Maintenance, Insomnia, 07/11/18 10:25:23 EDT, Route to Pharmacy Electronically, [id number], [place], [place] - Start Date: 07/11/18 Stop Date: 07/06/19 Status: Ordered Triumeq oral tablet 1 tablet, By Mouth, Daily, # 30 tablet, 11 Refills, Maintenance, 07/11/18 10:25:21 EDT, Tablet, 1 tablet By Mouth Daily,x30 days Start Date: 07/11/18 Stop Date: 07/06/19 Status: Ordered Unisolve adhesive remover #358211 Unisolve adhesive remover #443334, See Instructions, # 1 box, Refills 11, Tot. Refills 11, Maintenance, To remove appliance at every change Dx Ulcerative Colitis, 01/31/18 11:44:15 EDT, Compound Start Date: 01/31/18 Status: Ordered Voltaren 1% topical gel See Instructions, PRN pain R knee, apply to painful knees 1-2x/day maximum; wash hands after, # 100Gm, 3 Refills, Maintenance, 05/01/19 9:33:00 EST, Gel, [place], [place] -, apply to painful knees 1-2x/day [...] inguinal pain(Confirmed) Active 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) Active *[id number]- [facility] Part ner Jacky Sandhu(Confirmed) Active traumatic [...]
--- OUTSIDE RECORDS SUMMARY | 2022-12-18 06:36 | XMS_ITS | Continuity of Care Document ---
Author Name Unknown Organization [facility] Address [address] [place] [address]- Care Team Providers Care Summons Server Name Role Phone Mora Gooden MD Primary Care Physician Encounter [facility] Date(s): 09/01/22 - 10/01/[address] [address]- Allergies, Adverse Reactions, Alerts Substance Reaction Severity Status ampicillin Active aspirin BLEEDING Persistent Severe Active Pollen NASAL CONGESTION SNEEZING Persistent Mode rate Active NSAIDs bleeding Persistent Severe Active Immunizations Given and Recorded Vaccine Date Status Refusal Reason [id number] 12y+ bivalent booster vax 02/02/22 Recorded SARS-CoV-2 [...] VIS 10/03 4Result Comment: [12/07/2016] diluent LOT [id number] EXP 03/29/2018 5Result Comment: [07/18/2016] Liquid component: [id number], exp.: 05/2017 6Admin Note: VIS 12/13/2006 7Admin Note: vis 10/30/11 8Admin Note: vis [id number] 9Admin Note: done at [facility] this past march 10Admin Note: VIS GIVEN 2008- 11Admin Note: vis 11/25/06 Medications acetaminophen 500 mg oral tablet 1 tablet, By Mouth, 4 times a day, PRN NEEDED FOR PAIN, TAKE ONLY IF needed, # 100 tablet, 5 Refills, Maintenance, 04/14/22 15:58:00 EST, [facility] - [place], [place] - [id number], 167, cm, 04/10/22 11:48:00 EST, Height, 89.9, kg, 05/25/21 10:... Start Date: 04/14/22 Status: Ordered Albuterol (Eqv-ProAir HFA) 90 mcg/inh inhalation aerosol 2 puffs, Inhalation, 4 times a day, PRN NEEDED FOR SHORTNESS OF BREATH OR FOR WHEEZING, # 25.5 Gm, 5 Refills, [facility], 4, INHALE 2 PUFFS BY [...] 09/09/21 Status: Ordered Talbert Elastic barrier strips #467956 Talbert Elastic barrier strips #669340, See Instructions, # 120 each, Refills 11, Tot. Refills 11, Maintenance, Dx: K51; Z93. 3 sig: use 4 strips a day with ostomy bag. disp: 4 bags of 30 strips = 120 strips per month. Fax to [facility] [phone], 04... Start Date: 08/21/22 Status: Ordered busPIRone [...] Weight Start Date: 08/24/22 Status: Ordered coloplast #93111 pouch coloplast #17206 pouch, See Instructions, # 20 each, Refills 11, Tot. Refills 11, Maintenance, use as needed for ostomy care. 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 Fax to Andre ([facility]), 06/25/19 12:46:00 EST, Compound Start Date: 06/25/19 Status: Ordered coloplast #63034 pouch coloplast #95016 pouch, See Instructions, # 40 each, Refills 11, Tot. Refills 11, Maintenance, use as needed for ostomy care. 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 Fax to Andre ([facility]). disp 40 coloplast pouche... Start Date: 08/05/19 Status: Ordered coloplast 10597 convex 1 piece coloplast 69868 convex 1 piece, See Instructions, # 1 box, Refills 11, Tot. Refills 11, Maintenance, use for ostomy changes Dx- uc/ileostomy, 07/25/18 11:04:40 EDT, Compound Start Date: 07/25/18 Status: Ordered coloplast bags #21795 coloplast bags #74336, See Instructions, # 20 each, Refills 11, [...] pls fax to [facility] 05/12/19 14:02:00 EST, Compound Start Date: 05/12/19 [...] 11 Refills, Maintenance, 04/21/22 14:15:00 EST, Tablet, [facility] - [place], [place] - [phone], Partial fill upon pa... Start Date: 04/21/22 [...] Z93. 3; K51 RICH 99 Fax to [facility] [phone], 09/28/22 14:39:00 EDT, Supply Start Date: 09/28/22 Status: Ordered hydrochlorothiazide 12.5 mg oral tablet See Instructions, TAKE 1 TABLET BY MOUTH ONCE DAILY, # 30 tablet, 5 Refills, Maintenance, 08/24/22 11:41:00 EDT, [place], [place] - [id number], 167, cm, 08/01/22 10:08:00 EDT, Height, 89.9, [...] 11 Refills, Maintenance, 07/07/22 11:45:00 EST, Tablet, [facility] - [place], [place] - [phone], Partial fill upon patient request if the prescription is for a schedule II opioid drug., 167,... Start Date: 07/07/22 Status: Ordered LifeLine LifeLine, See Instructions, # 1 each, Refills 0, Tot. Refills 0, Maintenance, use to call for help in the home as directed length of need 99 B20, F32.9, F11.2 Pt address/#: [address] [place] [address], [address] [phone] Critical Signal... Start Date: 01/15/18 Status: Ordered [...] Date: 09/12/18 Status: Ordered No-nsting skin prep #14244076 No-nsting skin prep #97757349, See Instructions, # 1 bottle, Refills 11, [...] film, 0 Refills, Maintenance, 09/07/22 15:44:00 EDT, [facility] [id number], 3 film Sublingual Daily,w21hazu,Instr:MassPATchecked. dissolve under tongue,... Start Date: 09/07/22 Stop Date: 10/07/22 Status: Ordered traZODone 100 mg oral tablet 1, tablet, By Mouth, Daily at bedtime, PRN, # 90 tablet, Refills 1, Maintenance, NEEDED FOR insomnia, 06/27/22 16:38:00 EST, Route to Pharmacy Electronically, [facility], 167, cm, 04/10/22 11:48:00 EST, Height, 89.9, kg, 05/25/21 10:21:00 EST,... Start Date: 06/27/22 Status: Ordered Trulicity Pen 0.75 mg/0.5 mL subcutaneous solution 0.5 mL = 0.75 mg, Subcutaneous Injection, Every week, rotate injection sites, # 2 mL, 11 Refills, Maintenance, 07/07/22 11:45:00 EST, Solution, [facility] [phone], Partialfill upon patient request if the prescription is fo... Start Date: 07/07/22 Status: Ordered Unisolve adhesive remover #201607 Unisolve adhesive remover #517424, See Instructions, # 1 box, Refills 11, [...] Active Osteoarthritis of both hands Confirmed Active *[id number] Environmental Health Officer Nitin Aminier Confirmed Active SLAC (scapholunate advanced collapse) wrist [...] Team Personnel Name: Maru Grey NP Position: [facility] PCO Associate Professional Member Role: Primary Care Nurse Address: Address: [address] [place] [address] [place] [address]- Name: Arianne George RN Position: [facility] RN Member Role: Primary Care Nurse Name: Radha Ewing RN Position: [facility] RN Member Role: Primary Care Nurse Name: Macey Trevino RN Position: [facility] AMB Nurse Member Role: Primary Care Nurse Name: Nesha Leigh RN Position: [facility] RN Member Role: Primary Care Nurse Name: Alanna Ashby RN Position: [facility] RN Member Role: Primary Care Nurse Name: Loren Jimenez RN Position: [facility] RN Member Role: Primary Care Nurse Name: Starr Poon RN Position: [facility] SN RN Member Role: Primary Care Nurse Name: Vilma Perez RN Position: [facility] MR W/ Merge Member Role: Primary Care Nurse Name: John Noguera RN Position: [facility] RN Member Role: Primary Care Nurse Name: Dunia Arechiga RN Position: [facility] RN Member Role: Primary Care Nurse Name: Kamilah Baron Position: [facility] PCO TA Member Role: Primary Care Nurse Name: Ro Lopez RN Position: [facility] RN Member Role: Primary Care Nurse Name: Kosta Braun III, RN Position: [facility] RN Member Role: Primary Care Nurse Name: Lauryn Jiménez RN Position: [facility] Hospital Service Car Operator Member Role: Primary Care Nurse Name: Jorge Ching RN Position: [facility] RN Member Role: Primary Care Nurse Name: Valarie Srivastava RN Position: [facility] RN Member Role: Primary Care Nurse Name: Monica Jacobs RN Position: [facility] RN Member Role: Primary Care Nurse Name: Johanna Castaneda RN Position: [facility] RN Member Role: Primary Care Nurse Address: Address: [address] [place] [address]- [place] Name: Luisa Zavaleta RN Position: [facility] AMB Nurse Member Role: Primary Care Nurse Name: Yulissa Mora RN Position: [facility] SN RN Member Role: Primary Care Nurse Name: Francine Abrams RN Position: [facility] RN Member Role: Primary Care Nurse Name: Shea Marinelli RN Position: [facility] RN Member Role: Primary Care Nurse Name: Mora Gooden MD Position: [facility] Physician - Primary Care Member Role: PCP Address: Address: [address] [place] [address]- [place] Care Team Related Persons Name: KENDRA PEGGY Address: home [address] [place] [address] Name: JLUIS WHITE STAGE NAME Name: ADIA WINTERS
--- OUTSIDE RECORDS SUMMARY | 2022-12-18 06:36 | XMS_ITS | Continuity of Care Document ---
Author Name Unknown Organization [facility] ter Address [address] [place] [address]- Care Team Providers Care Hogshead Head Matcher Name Role Phone Noemi Ruffin MD, I Primary Care Physician Encounter [facility] Date(s): 07/09/20 - 08/14/[address] [address] Attending Physician: Royce Saini MD Admitting Physician: [...] VIS 10/03 3Result Comment: [12/07/2016] diluent LOT [id number] EXP 03/29/2018 4Result Comment: [07/18/2016] Liquid component: [id number], exp.: 05/2017 5Admin Note: VIS 12/13/2006 6Admin Note: vis 10/30/11 7Admin Note: vis [id number] 8Admin Note: done at [facility] this past march 9Admin Note: VIS GIVEN 2008- 10Admin Note: vis 11/25/06 Medications acetaminophen 500 mg oral tablet 1 tablet = 500 mg, By Mouth, 2 times a day, PRN for pain, take only if needed, # 60 tablet, 5 Refills, Maintenance, 04/17/19 10:49:00 EST, Tablet, [facility] - [place], [place] -, 172, cm, 04/17/19 9:42:00 EST, Height, 83.7, kg, 04/04/19 0:17:00 E... Start Date: 04/17/19 Stop Date: 10/14/19 Status: Ordered albuterol CFC free 90 mcg/inh inhalation aerosol See Instructions, # 18 Gm, Refills 5 Tot. Refills 5, INHALE 2 PUFFS BY MOUTH INTO THE lungs 4 (FOUR) TIMES DAILY NEEDED FOR SHORTNESS OF BREATH OR FOR WHEEZING, [facility] - [place], [place] - Start Date: 01/21/19 Status: Ordered [...] 0 Refills, Maintenance, 07/30/20 9:38:00 EDT, Tablet, [facility], Partial fill upon patient request [...] 93.2, 07/14/19 10:55:00 EDT, Compound Start Date: 3/16/20 Status: Ordered Talbert Elastic barrier strips #927204 Talbert Elastic barrier strips #958372, See Instructions, # 1 units, Refills 11, Tot. Refills 11, Maintenance, To remove appliance at every change Dx Ulcerative Colitis, 01/31/18 11:44:17 EDT, Compound Start Date: 01/31/18 Status: Ordered busPIRone 5 mg oral tablet 5 mg, 1, tablet, By Mouth, 3 times a day, for anxiety, # 270 tablet, Refills 1, Tot. Refills 1, Maintenance, 04/19/20 11:34:00 EST, Route to Pharmacy Electronically, [facility] [id number], 173, cm, 04/12/20 11:01:00 EST, Heigh... Start Date: 04/19/20 Stop Date: 11/15/20 Status: Ordered carvedilol 6.25 mg oral tablet 6.25 mg, 1, tablet, By Mouth, 2 times a day, # 60 tablet, Refills 11, Tot. Refills 11, Maintenance,06/22/20 21:17:00 EST, Route to Pharmacy Electronically, [facility] [id number], 173, cm, 04/12/20 11:01:00 EST, Height, 86.8,... Start Date: 06/22/20 Stop Date: 06/17/21 Status: Ordered cetirizine 10 mg oral tablet 1 tablet = 10 mg, By Mouth, Daily, PRN if needed for allergy symptoms, do not blister pack, # 90 tablet, 1 Refills, Maintenance, 04/19/20 11:34:00 EST, Tablet, [facility] [id number], 173, cm, 04/12/20 11:01:00 EST, Height, 86.... Start Date: 04/19/20 Stop Date: 10/16/20 Status: Ordered Colace Capsule 100 mg, 1, capsule, By Mouth, 2 times a day, Hold for loose stool, Refills 0, Maintenance, :50:00 EST, Partial fill upon patient request if the prescription is for a schedule II opioid drug. Start Date: 04/12/20 Status: Ordered coloplast #15127 pouch coloplast #66118 pouch, See Instructions, # 20 each, Refills 11, Tot. Refills 11, Maintenance, use as needed for ostomy care. 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 Fax to [facility], 06/25/19 12:46:00 EST, Compound Start Date: 06/25/19 Status: Ordered coloplast #70983 pouch coloplast #57843 pouch, See Instructions, # 40 each, Refills 11, Tot. Refills 11, Maintenance, use as needed for ostomy care. 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 [facility] disp 40 coloplast pouche... Start Date: 08/05/19 Status: Ordered coloplast 28112 convex 1 piece coloplast 64473 convex 1 piece, See Instructions, # 1 box, Refills 11, Tot. Refills 11, Maintenance, use for ostomy changes Dx- uc/ileostomy, 07/25/18 11:04:40 EDT, Compound Start Date: 07/25/18 Status: Ordered coloplast bags #92625 coloplast bags #70389, See Instructions, # 20 each, Refills 11, Tot. Refills 11, Maintenance, use as needed for ostomy care Dx. ileostomy Z93.2, 07/14/19 10:56:00 EDT, Compound Start Date: 07/14/19 Status: Ordered Compression Stockings See Instructions, # 4 each, Refills 1, Tot. Refills 1, Maintenance, knee high compression hose 20-30mm 4 pair dx bilateral leg edema. R60.0 pls fax to [facility], 05/12/19 14:02:00 EST, Compound Start [...] 11 Refills, Maintenance, 07/23/20 12:00:00 EDT, Tablet, [place], [place] - [id number], 173, cm, 07/19/20 10:52:00 EDT, Height, 86.8, [...] 07/18/21 12:01:00 EDT, 07/23/20 12:01:00 EDT, Tablet, [facility] - [place], [place] - [id number], 173, cm, 07/19/20 10:52:00 EDT, Hei... Start Date: 07/23/20 Stop Date: 07/18/21 Status: Ordered LifeLine LifeLine, See Instructions, # 1 each, Refills 0, Tot. Refills 0, Maintenance, use to call for help in the home as directed length of need 99 B20, F32.9, F11.2 Pt address/#: [address] [place] [address], [address]. [phone] Critical Signal... Start Date: 01/15/18 Status: Ordered [...] Date: 09/12/18 Status: Ordered No-nsting skin prep #03577570 No-nsting skin prep #94757772, See Instructions, # 1 bottle, Refills 11, Tot. Refills 11, Maintenance, Use as needed for ostomy care Dx: colostomy, 01/31/18 11:44:14 EDT, Compound Start Date: 01/31/18 Status: Ordered omeprazole 20 mg oral enteric coated capsule 1 capsule = 20 mg, By Mouth, Daily, PRN only if needed for acid reflux symptoms, # 90 capsule, 1 Refills, Maintenance, 07/23/20 12:01:00 EDT, EC Capsule, [facility] - [place], [place] - [id number], 173, cm, 07/19/20 10:52:00 EDT, Height, 86.8, [...] tablet, 11 Refills, Maintenance, 08/02/20 17:47:00 EDT, [facility], 172, cm, 07/30/20 16:38:00 EDT, [...] need 99 colostomy care z43.... Start Date: 7/28/20 Status: Ordered right hinged knee brace right [...] mg sublingual film 1.5 film, Sublingual, Daily, [id number] MassPATchecked. dissolve under tongue, # 42 film, 0 Refills,Maintenance, 07/19/20 11:29:00 EDT, [place], [place] - [id number], 1.5 film Sublingual Daily,x28 days,Instr:[id number]; MassPATchec... Start Date: 07/19/20 Stop Date: 08/16/20 Status: Ordered traZODone 100 mg oral tablet 1, tablet, By Mouth, Daily at bedtime, PRN, # 30 tablet, Refills 11, Tot. Refills 0, Maintenance, NEEDED FOR insomnia, 07/23/20 12:03:00 EDT, Route to Pharmacy Electronically, [facility], 173, cm, 07/19/20 10:52:00 EDT, Height, 86.8, kg, 04/07... Start Date: 07/23/20 Status: Ordered Triumeq oral tablet 1 tablet, By Mouth, Daily, # 30 tablet, 11 Refills, Maintenance, 07/23/20 12:00:00 EDT, Tablet, [facility] [place], [place] - [id number], 1 tablet By Mouth Daily,x30 days, 173, cm, 07/19/20 10:52:00 EDT, Height, 86.8, kg, 04/07/20 8:07:00 EST, D... 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
--- OUTSIDE RECORDS SUMMARY | 2022-12-18 06:36 | XMS_ITS | Continuity of Care Document ---
Author Name Unknown Organization [facility] Address [address] [place] [address]- Care Team Providers Care Car Retarder Operator Name Role Phone Noemi Ruffin MD, I Primary Care Physician [phone] Encounter [facility] Date(s): 12/08/20 - 01/07/[address] [address]- Allergies, Adverse Reactions, Alerts Substance Reaction Severity [...] VIS 10/03 4Result Comment: [12/07/2016] diluent LOT [id number] EXP 03/29/2018 5Result Comment: [07/18/2016] Liquid component: [id number], exp.: 05/2017 6Admin Note: VIS 12/13/2006 7Admin Note: vis 10/30/11 8Admin Note: vis [id number] 9Admin Note: done at [facility] this past march 10Admin Note: VIS GIVEN 2008- 11Admin Note: vis 11/25/06 Medications acetaminophen 500 mg oral tablet 1 tablet = 500 mg, By Mouth, 2 times a day, PRN for pain, take only if needed, # 60 tablet, 5 Refills, Maintenance, 04/17/19 10:49:00 EST, Tablet, [facility] - [place], [place] -, 172, cm, 04/17/19 9:42:00 EST, Height, 83.7, kg, 04/04/19 0:17:00 E... Start Date: 04/17/19 Stop Date: 10/14/19 Status: Ordered albuterol CFC free 90 mcg/inh inhalation aerosol 2, puffs, Inhalation, 4 times a day, PRN, # 1 each, Refills 1, Tot. Refills 1, Soft Stop, 12/07/20 11:08:00 EDT, Route to Pharmacy Electronically, [id number], [place], [place] - [id number], 172, cm, 12/07/20... Start Date: 12/07/20 Stop [...] 5 Refills, Maintenance, 11/05/20 12:56:00 EDT, Tablet, [place], [place] - [id number], Partial fill uponpatient request if the prescription is for a schedu... Start Date: 11/05/20 Status: Ordered apixaban 2.5 mg oral tablet 1 tablet = 2.5 mg, By Mouth, 2 times a day, # 60 tablet, 0 Refills, Maintenance, 07/30/20 9:38:00 EDT, Tablet, [facility] 3, Partial fill upon patient request [...] 07/14/19 Status: Ordered Talbert Elastic barrier strips #818986 Talbert Elastic barrier strips #617191, See Instructions, # 1 units, Refills 11, Tot. Refills 11, Maintenance, To remove appliance at every change Dx Ulcerative Colitis, 01/31/18 11:44:17 EDT, Compound Start Date: 01/31/18 Status: Ordered busPIRone 5 mg oral tablet 1, tablet, By Mouth, 3 times a day, FOR ANXIETY., # 270 tablet, Refills 1, Tot. Refills 0, Maintenance, 10/26/20 10:29:00 EDT, Route to Pharmacy Electronically, [facility], 172, cm, 07/30/20 16:38:00 EDT, Height, 89.7, kg, 07/29/20 7:42:00 EDT, D... Start Date: 10/26/20 Status: Ordered carvedilol 12.5 mg oral tablet 12.5 mg, 1, tablet, By Mouth, 2 times a day, increase in dose, # 60 tablet, Refills 11, Tot. Refills 11, Maintenance, 10/12/20 11:48:00 EDT, Route to Pharmacy Electronically, [facility] - [place], [place] - [id number], Partial fill upon patient re... Start Date: [...] drug. Start Date: 04/12/20 Status: Ordered coloplast #36759 pouch coloplast #17223 pouch, See Instructions, # 20 each, Refills 11, Tot. Refills 11, Maintenance, use as needed for ostomy care. 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 Fax to [facility]), 06/25/19 12:46:00 EST, Compound Start Date: 06/25/19 Status: Ordered coloplast #61731 pouch coloplast #02386 pouch, See Instructions, # 40 each, Refills 11, Tot. Refills 11, Maintenance, use as needed for ostomy care. 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 Fax to Andre ([facility]). disp 40 coloplast pouche... Start Date: 08/05/19 Status: Ordered coloplast 73266 convex 1 piece coloplast 59950 convex 1 piece, See Instructions, # 1 box, Refills 11, Tot. Refills 11, Maintenance, use for ostomy changes Dx- uc/ileostomy, 07/25/18 11:04:40 EDT, Compound Start Date: 07/25/18 Status: Ordered coloplast bags #78968 coloplast bags #04051, See Instructions, # 20 each, Refills 11, Tot. Refills 11, Maintenance, use as needed for ostomy care Dx. ileostomy Z93.2, 07/14/19 10:56:00 EDT, Compound Start Date: 07/14/19 Status: Ordered Compression Stockings See Instructions, # 4 each, Refills 1, Tot. Refills 1, Maintenance, knee high compression hose 20-30mm 4 pair dx bilateral leg edema. R60.0 pls fax to [facility], 05/12/19 14:02:00 EST, Compound Start Date: [...] 11 Refills, Maintenance, 07/23/20 12:00:00 EDT, Tablet, [facility] [id number], 173, cm, 07/19/20 10:52:00 EDT, Height, 86.8, kg, 04/07/20 8:07:00 EST, Dry Weight Start Date: 07/23/20 Stop Date: 07/18/21 Status: Ordered hydrochlorothiazide 12.5 mg oral tablet 1 tablet = 12.5 mg, By Mouth, Daily, # 30 tablet, 11 Refills, Maintenance, 01/04/21 11:11:00 EDT, Tablet, [facility] [id number], Partial fill upon patient request if the [...] 07/18/21 12:01:00 EDT, 07/23/20 12:01:00 EDT, Tablet, [facility] [id number], 173, cm, 07/19/20 10:52:00 EDT, Hei... Start Date: 07/23/20 Stop Date: 07/18/21 Status: Ordered LifeLine LifeLine, See Instructions, # 1 each, Refills 0, Tot. Refills 0, Maintenance, use to call for help in the home as directed length of need 99 B20, F32.9, F11.2 Pt address/#: [address] [facility] [address], [address] [phone] Critical Signal... Start Date: 01/15/18 Status: Ordered [...] Date: 09/12/18 Status: Ordered No-nsting skin prep #[id number] No-nsting skin prep #76134429, See Instructions, # 1 bottle, Refills 11, Tot. Refills 11, Maintenance, Use as needed for ostomy care Dx: colostomy, 01/31/18 11:44:14 EDT, Compound Start Date: 01/31/18 Status: Ordered omeprazole 20 mg oral enteric coated capsule 1 capsule = 20 mg, By Mouth, Daily, PRN only if needed for acid reflux symptoms, # 90 capsule, 1 Refills, Maintenance, 07/23/20 12:01:00 EDT, EC Capsule, [facility] [place], [place] - [id number], 173, cm, 07/19/20 10:52:00 EDT, Height, 86.8, [...] tablet, 11 Refills, Maintenance, 08/02/20 17:47:00 EDT, [facility], 172, cm, 07/30/20 16:38:00 EDT, [...] tablet, 11 Refills, Maintenance, 06/22/20 20:22:00 EST, [facility], 173, cm, 04/12/20 11:01:00 EST, [...] mg sublingual film 2 film, Sublingual, Daily, [id number] MassPATchecked. dissolve under tongue, # 56 film, 0 Refills, Maintenance, 12/08/20 23:01:00 EDT, [place], [place] - [id number], fill on 12/13/20-due date, 2 film Sublingual Daily,x28 days,Instr:X... Start Date: 12/08/20 Stop Date: 01/05/21 Status: Ordered traZODone 100 mg oral tablet 1, tablet, By Mouth, Daily at bedtime, PRN, # 30 tablet, Refills 11, Tot. Refills 0, Maintenance, NEEDED FOR insomnia, 07/23/20 12:03:00 EDT, Route to Pharmacy Electronically, [facility], 173, cm, 07/19/20 10:52:00 EDT, Height, 86.8, kg, 04/07... Start Date: 07/23/20 Status: Ordered Triumeq oral tablet 1 tablet, By Mouth, Daily, # 30 tablet, 11 Refills, Maintenance, 07/23/20 12:00:00 EDT, Tablet, [place], [place] - [id number], 1 tablet By Mouth Daily,x30 days, 173, cm, 07/19/20 10:52:00 EDT, Height, 86.8, kg, 04/07/20 8:07:00 Evan MCGOVERN. Start Date: 07/23/20 Stop Date: 07/18/21 Status: Ordered Unisolve adhesive remover #004627 Unisolve adhesive remover #893539, See Instructions, # 1 box, Refills 11, [...] inguinal pain(Confirmed) Active 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) Active *[phone] Care Partn krysten-Jesica Jeter(Confirmed) Active traumatic splenectomy [...]
--- OUTSIDE RECORDS SUMMARY | 2022-12-18 06:36 | XMS_ITS | Continuity of Care Document ---
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 Role Phone Noemi Ruffin MD, I Primary Care Physician [facility]counter [facility] Date(s): 11/18/19 - 12/18/[address] [address]- [facility] Allergies, Adverse Reactions, Alerts Substance Reaction [...] VIS 10/03 3Result Comment: [12/07/2016] diluent LOT [id number] EXP 03/29/2018 4Result Comment: [07/18/2016] Liquid component: [id number], exp.: 05/2017 5Admin Note: VIS 12/13/2006 6Admin Note: vis 10/30/11 7Admin Note: vis 0919-1500 8Admin Note: done at [facility] this past march 9Admin Note: VIS GIVEN 2008- 10Admin Note: vis 11/25/06 Medications acetaminophen 500 mg oral tablet 1 tablet = 500 mg, By Mouth, 2 times a day, PRN for pain, take only if needed, # 60 tablet, 5 Refills, Maintenance, 04/17/19 10:49:00 EST, Tablet, [place], [place] -, 172, cm, 04/17/19 9:42:00 EST, Height, 83.7, kg, 04/04/19 0:17:00 E... Start Date: 04/17/19 Stop Date: 10/14/19 Status: Ordered albuterol CFC free 90 mcg/inh inhalation aerosol See Instructions, # 18 Gm, Refills 5 Tot. Refills 5, INHALE 2 PUFFS BY MOUTH INTO THE lungs 4 (FOUR) TIMES DAILY NEEDED FOR SHORTNESS OF BREATH OR FOR WHEEZING, [place], [place] - Start Date: 01/21/19 Status: Ordered Alcohol Pads See Instructions, # 50 each, Refills 11, Tot. Refills 11, Maintenance, E11.9 check BG daily, 12/05/18 7:49:59 EDT, Compound Start Date: 12/05/18 Status: Ordered amLODIPine 5 mg oral tablet 5 mg, 1, tablet, By Mouth, Daily, # 30 tablet, Refills 11, Tot. Refills 11, Maintenance, 06/16/19 12:27:00 EST, Route to Pharmacy Electronically, [facility] [place], [place] -, 172, cm, 06/16/19 11:20:00 EST, [...] 07/14/19 Status: Ordered Talbert Elastic barrier strips #903034 Talbert Elastic barrier strips #[id number], See Instructions, # 1 units, Refills 11, Tot. Refills 11, Maintenance, To remove appliance at every change Dx Ulcerative Colitis, 01/31/18 11:44:17 EDT, Compound Start Date: 01/31/18 Status: Ordered busPIRone 5 mg oral tablet 5 mg, 1, tablet, By Mouth, 3 times a day, for anxiety, # 90 tablet, Refills 11, Tot. Refills 11, Maintenance, 04/17/19 10:43:00 EST, Route to Pharmacy Electronically, [place], [place] -, 172, cm, 04/17/19 9:42:00 EST, Height, 83.7, kg... Start Date: 04/17/19 Stop Date: 04/11/20 Status: Ordered carvedilol 6.25 mg oral tablet 6.25 mg, 1, tablet, By Mouth, 2 times a day, # 60 tablet, Refills 11, Tot. Refills 11, Maintenance,06/16/19 12:25:00 EST, Route to Pharmacy Electronically, [place], [place] -, 172, cm, 06/16/19 11:20:00 EST, [...] 04/17/19 10:43:00 EST, Route to Pharmacy Electronically, [place], [place] -, 172, cm, 04/17/19 9:42:00 EST, Height, 83.7, kg, 04/04/19 0:17:... Start Date: 04/17/19 Stop Date: 04/11/20 Status: Ordered Citrucel 500 mg oral tablet 2 tablet = 1,000 mg, By Mouth, Daily, for 60 days, with plenty of water, # 120 tablet, 1 Refills, Acute 02/12/20 16:54:00 EDT, 10/15/19 16:54:00 EDT, [facility], 172, cm, 06/25/19 10:26:00 EST, Height, 83.7, kg, 04/04/19 0:17:... Start Date: 10/15/19 Stop Date: 02/12/20 Status: Ordered coloplast #45263 pouch coloplast #78836 pouch, See Instructions, # 20 each, Refills 11, Tot. Refills 11, Maintenance, use as needed for ostomy care. 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 Fax to [facility]), 06/25/19 12:46:00 EST, Compound Start Date: 06/25/19 Status: Ordered coloplast #95906 pouch coloplast #24644 pouch, See Instructions, # 40 each, Refills 11, Tot. Refills 11, Maintenance, use as needed for ostomy care. 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 Fax to [facility]). disp 40 coloplast pouche... Start Date: 08/05/19 Status: Ordered coloplast 55662 convex 1 piece coloplast 65441 convex 1 piece, See Instructions, # 1 box, Refills 11, Tot. Refills 11, Maintenance, use for ostomy changes Dx- uc/ileostomy, 07/25/18 11:04:40 EDT, Compound Start Date: 07/25/18 Status: Ordered coloplast bags #56485 coloplast bags #10756, See Instructions, # 20 each, Refills 11, Tot. Refills 11, Maintenance, use as needed for ostomy care Dx. ileostomy Z93.2, 07/14/19 10:56:00 EDT, Compound Start Date: 07/14/19 Status: Ordered Compression Stockings See Instructions, # 4 each, Refills 1, Tot. Refills 1, Maintenance, knee high compression hose 20-30mm 4 pair dx bilateral leg edema. R60.0 pls fax to [facility], 05/12/19 14:02:00 EST, Compound Start [...] 11 Refills, Maintenance, 07/29/19 11:40:00 EDT, Tablet, [facility] [place], [place] -, 172, cm, 06/25/19 10:26:00 EST, Height, 83.7, kg, 04/04/19 0:17:00 EST, Dry Weight Start Date: 07/29/19 Stop Date: 07/23/20 Status: Ordered hydrOXYzine hydrochloride 10 mg oral tablet 2 tablet = 20 mg, By Mouth, 3 times a day, PRN for itching, # 80 tablet, 0 Refills, Maintenance, 06/25/19 11:37:00 EST, Tablet, [place], [place] -, 172, cm, 06/25/19 10:26:00 EST, [...] 01/02/19 10:34:25 EDT, Route to Pharmacy Electronically, [id number], Kate... Start Date: 01/02/19 Stop Date: 07/01/19 Status: Ordered Januvia 50 mg oral tablet 1 tablet = 50 mg, By Mouth, Daily before breakfast, for diabetes, # 30 tablet, 11 Refills, Maintenance, 04/17/19 10:46:00 EST, Tablet, [place], [place] -, 172, cm, 04/17/19 9:42:00 EST, Height, 83.7, kg, 04/04/19 0:17:00 EST, Dry Weight Start Date: 04/17/19 Stop Date: 04/11/20 Status: Ordered LifeLine LifeLine, See Instructions, # 1 each, Refills 0, Tot. Refills 0, Maintenance, use to call for help in the home as directed length of need 99 B20, F32.9, F11.2 Pt address/#: [address] [place] [address], [address]. [phone] Critical Signal... Start Date: 01/15/18 Status: Ordered [...] Date: 09/12/18 Status: Ordered No-nsting skin prep #[id number] No-nsting skin prep #[id number], See Instructions, # 1 bottle, Refills 11, Tot. Refills 11, Maintenance, Use as needed for ostomy care Dx: colostomy, 01/31/18 11:44:14 EDT, Compound Start Date: 01/31/18 Status: Ordered omeprazole 20 mg oral enteric coated capsule 1 capsule = 20 mg, By Mouth, Daily, PRN only if needed for acid reflux symptoms, # 30 capsule, 5 Refills, Maintenance, 04/17/19 10:49:00 EST, EC Capsule, [place], [place] -, 172, cm,04/17/19 9:42:00 EST, Height, [...] tablet, 5 Refills, Maintenance, 07/19/19 13:20:00 EDT, [place], [place] -, 172, cm, 06/25/19 10:26:00 EST, [...] 11 Refills, Maintenance, 06/16/19 12:26:00 EST, Tablet, [place], [place] -, 172, cm, 06/16/19 11:20:00 EST, [...] mg sublingual film 3 each, Sublingual, Daily, [id number], MassPATchecked. dissolve under tongue (ok to divide dose 3x/dif helps w/ pain), # 84 film, 0 Refills, Maintenance, 11/25/19 11:54:00 EDT, [place], [place] - [id number], 3 each Sublingual Daily,x... Start Date: 11/25/19 Stop Date: 12/23/19 Status: Ordered traZODone 100 mg oral tablet 1, tablet, By Mouth, Daily at bedtime, PRN, # 30 tablet, Refills 11, Tot. Refills 0, Maintenance, NEEDED FOR insomnia, 07/19/19 17:09:00 EDT, Route to Pharmacy Electronically, [facility], 172, cm, 06/25/19 10:26:00 EST, Height, 83.7, kg, 04/04... Start Date: 07/19/19 Status: Ordered Triumeq oral tablet 1 tablet, By Mouth, Daily, # 30 tablet, 11 Refills, Maintenance, 07/29/19 11:40:00 EDT, Tablet, [place], [place] -, 1 tablet By Mouth Daily,x30 days, 172, cm, 06/25/19 10:26:00 EST, Height, 83.7, kg, 04/04/19 0:17:00 EST, Dry Weight Start Date: 07/29/19 Stop Date: 07/23/20 Status: Ordered Unisolve adhesive remover #[id number] Unisolve adhesive remover #096768, See Instructions, # 1 box, Refills 11, Tot. Refills 11, Maintenance, To remove appliance at every change Dx Ulcerative Colitis, 01/31/18 11:44:15 EDT, Compound Start Date: 01/31/18 Status: Ordered Voltaren 1% topical gel See Instructions, PRN pain R knee, apply to painful knees 1-2x/day maximum; wash hands after, # 100Gm, 3 Refills, Maintenance, 06/25/19 11:49:00 EST, Gel, [place], [place] -, apply to painful knees 1-2x/day [...] 0 Refills, Maintenance, 06/25/19 11:36:00 EST, Tablet, [facility] [place], [place] -, 172, cm, 06/25/19 10:26:00 EST, [...] inguinal pain(Confirmed) Active 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) Active *[id number]- [facility] Part ner Jacky Sandhu(Confirmed) Active traumatic [...]
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
--- OUTSIDE RECORDS SUMMARY | 2022-12-18 06:36 | XMS_ITS | Continuity of Care Document ---
Author Name Unknown Organization [facility] [place] Address [address] [place] [address]- Care Team Providers Care Mess Attendant Name Role Phone Laly FERNANDEZ, Noemi Marshall Primary Care Physician Encounter [facility] Date(s): 04/06/22 - 08/04/22 [facility] [place] [address] [place] [address]- Attending Physician: Enrico Buck MD Referring Physician: Noemi Ruffin MD, I Allergies, Adverse Reactions, Alerts Substance Reaction Severity Status ampicillin Active aspirin BLEEDING Persistent Severe Active Pollen NASAL CONGESTION SNEEZING Persistent Mode rate Active NSAIDs bleeding Persistent Severe Active Immunizations Given and Recorded Vaccine Date Status Refusal Reason [id number] 12y+ bivalent booster vax 02/02/22 Recorded SARS-CoV-2 [...] VIS 10/03 4Result Comment: [12/07/2016] diluent LOT [id number] EXP 03/29/2018 5Result Comment: [07/18/2016] Liquid component: [id number], exp.: 05/2017 6Admin Note: VIS 12/13/2006 7Admin Note: vis 10/30/11 8Admin Note: vis [id number] 9Admin Note: done at [facility] this past march 10Admin Note: VIS GIVEN 2008- 11Admin Note: vis 11/25/06 Medications acetaminophen 500 mg oral tablet 1 tablet, By Mouth, 4 times a day, PRN NEEDED FOR PAIN, TAKE ONLY IF needed, # 100 tablet, 5 Refills, Maintenance, 04/14/22 15:58:00 EST, [place], [place] - [id number], 167, cm, 04/10/22 11:48:00 EST, Height, 89.9, kg, 05/25/21 10:... Start Date: 04/14/22 Status: Ordered Albuterol (Eqv-ProAir HFA) 90 mcg/inh inhalation aerosol 2 puffs, Inhalation, 4 times a day, PRN NEEDED FOR SHORTNESS OF BREATH OR FOR WHEEZING, # 25.5 Gm, 5 Refills, [facility], 4, INHALE 2 PUFFS [...] tablet, 5 Refills, Maintenance, 06/26/22 22:22:00 EST, [facility], 167, cm, 04/10/22 11:48:00 [...] 09/09/21 Status: Ordered Talbert Elastic barrier strips #706006 Talbert Elastic barrier strips #280133, See Instructions, # 120 each, Refills 11, [...] 07/24/22 17:21:00 EDT, Route to Pharmacy Electronically, [facility], 167, cm, 04/10/22 11:48:00 EST, Height, 89.9, kg, 05/25/21 10:21:00 EST, Start Date: 07/24/22 Status: Ordered carvedilol 12.5 mg oral tablet 1, tablet, By Mouth, 2 times a day, # 180 tablet, Refills 1, Maintenance, 06/26/22 22:23:00 EST, Route to Pharmacy Electronically, [facility], 167, cm, 04/10/22 11:48:00 EST, Height, 89.9, kg, 05/25/21 10:21:00 EST, Dry Weight Start Date: 06/26/22 Status: Ordered cetirizine 10 mg oral tablet 1 tablet, By Mouth, Daily, PRN NEEDED FOR FOR ALLERGY, # 90 tablet, 1 Refills, 02/23/22 14:13:00EDT, [facility] - [place], [place] - [id number], 167, cm, 08/08/21 11:18:00 EDT, Height, 89.9, kg, 05/25/21 10:21:00 EST, Dry Weight Start Date: 02/23/22 Status: Ordered coloplast #42561 pouch coloplast #53947 pouch, See Instructions, # 20 each, Refills 11, Tot. Refills 11, Maintenance, use as needed for ostomy care. 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 Fax to Andre ([facility]), 06/25/19 12:46:00 EST, Compound Start Date: 06/25/19 Status: Ordered coloplast #79345 pouch coloplast #93909 pouch, See Instructions, # 40 each, Refills 11, Tot. Refills 11, Maintenance, use as needed for ostomy care. 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 Fax to Andre ([facility]). disp 40 coloplast pouche... Start Date: 08/05/19 Status: Ordered coloplast 08312 convex 1 piece coloplast 85471 convex 1 piece, See Instructions, # 1 box, Refills 11, Tot. Refills 11, Maintenance, use for ostomy changes Dx- uc/ileostomy, 07/25/18 11:04:40 EDT, Compound Start Date: 07/25/18 Status: Ordered coloplast bags #97636 coloplast bags #56356, See Instructions, # 20 each, Refills 11, Tot. Refills 11, Maintenance, use as needed for ostomy care Dx. ileostomy Z93.2 fax to [facility], 09/09/21 10:48:00 EDT, Compound Start Date: 09/09/21 [...] leg edema. R60.0 pls fax to [facility], 05/12/19 14:02:00 EST, Compound Start [...] Gm, 5 Refills, Maintenance, 06/27/22 16:38:00 EST, [facility], 30, APPLY TO PAINFUL KNEES 1 TO 2 TIMES A DAY maximum. WASH HANDS AFTER USE, 167, cm,... Start Date: 06/27/22 Status: Ordered Dovato 50 mg-300 mg oral tablet 1 tablet, By Mouth, Daily, *pharmacy: please change triumeq to dovato with the next monthly medication delivery., # 30 tablet, 11 Refills, Maintenance, 04/21/22 14:15:00 EST, Tablet, [facility] - [place], [place] - [id number], Partial fill upon pa... Start Date: 04/21/22 [...] tablet, 2 Refills, Maintenance, 05/27/22 4:01:00 EST, [facility], 167, cm, 04/10/22 11:48:00 [...] 11 Refills, Maintenance, 07/07/22 11:45:00 EST, Tablet, [facility] - [place], [place] - [id number], Partial fill upon patient request if the prescription is for a schedule II opioid drug., 167,... Start Date: 07/07/22 Status: Ordered LifeLine LifeLine, See Instructions, # 1 each, Refills 0, Tot. Refills 0, Maintenance, use to call for help in the home as directed length of need 99 B20, F32.9, F11.2 Pt address/#: [address] [address], [address]. [phone] Critical Signal... Start Date: 01/15/18 Status: Ordered [...] Date: 09/12/18 Status: Ordered No-nsting skin prep #[id number] No-nsting skin prep #[id number], See Instructions, # 1 bottle, Refills 11, Tot. Refills 11, Maintenance, Use as needed for ostomy care Dx: colostomy, 01/31/18 11:44:14 EDT, Compound Start Date: 01/31/18 Status: Ordered omeprazole 40 mg oral enteric coated capsule 1 capsule, By Mouth, 2 times a day, # 60 capsule, 1 Refills, Maintenance, 07/24/22 17:23:00 EDT, [facility], 167, cm, 04/10/22 11:48:00 [...] sublingual film 3 film, Sublingual, Daily, Laly [id number] MassPATchecked. dissolve under tongue, # 84 film, 0 Refills, Maintenance, 07/14/22 9:48:00 EDT, [place], [place] - [id number], increase in dose from 16 mg to 24 mg daily, 3 film Subling... Start Date: 07/14/22 Stop Date: 08/11/22 Status: Ordered traZODone 100 mg oral tablet 1, tablet, By Mouth, Daily at bedtime, PRN, # 90 tablet, Refills 1, Maintenance, NEEDED FOR insomnia, 06/27/22 16:38:00 EST, Route to Pharmacy Electronically, [facility], 167, cm, 04/10/22 11:48:00 EST, Height, 89.9, kg, 05/25/21 10:21:00 EST,... Start Date: 06/27/22 Status: Ordered Trulicity Pen 0.75 mg/0.5 mL subcutaneous solution 0.5 mL = 0.75 mg, Subcutaneous Injection, Every week, rotate injection sites, # 2 mL, 11 Refills, Maintenance, 07/07/22 11:45:00 EST, Solution, [place], [place] - [id number], Partialfill upon patient request if the prescription is fo... Start Date: 07/07/22 Status: Ordered Unisolve adhesive remover #[id number] Unisolve adhesive remover #482571, See Instructions, # 1 box, Refills 11, [...] Confirmed Active NIDDM in obese Confirmed Active *[phone] Evaporator Supervisor Nitin Hancock Confirmed Active SLAC (scapholunate advanced [...] Team Personnel Name: Maru Grey NP Position: [facility] PCO Associate Professional Member Role: Primary Care Nurse Address: Address: [address] [place] [address]- Name: Arianne George RN Position: [facility] RN Member Role: Primary Care Nurse Name: Radha Ewing RN Position: [facility] RN Member Role: Primary Care Nurse Name: Macey Trevino [facility] RN Member Role: Primary Care Nurse Name: Nesha Leigh RN Position: [facility] SN RN Member Role: Primary Care Nurse Name: Alanna Ashby RN Position: [facility] RN Member Role: Primary Care Nurse Name: Loren Jimenez RN Position: [facility] RN Member Role: Primary Care Nurse Name: Starr Poon RN Position: [facility] SN RN Member Role: Primary Care Nurse Name: Vilma Perez RN Position: [facility] MR W/ Merge Member Role: Primary Care Nurse Name: John Noguera RN Position: [facility] RN Member Role: Primary Care Nurse Name: Noemi Ruffin MD, I Position: [facility] Primary Care Physician Member Role: PCP Address: Address: [address] [place] [address]- [place] Name: Dunia Arechiga RN Position: [facility] RN Member Role: Primary Care Nurse Name: Kamilah Baron Position: [facility] PCO TA Member Role: Primary Care Nurse Name: Ro Lopez RN Position: [facility] RN Member Role: Primary Care Nurse Name: Kosta Braun III, RN Position: [facility] RN Member Role: Primary Care Nurse Name: Lauryn Jiménez RN Position: [facility] Epic Willow Specialist Member Role: Primary Care Nurse Name: Jorge Ching RN Position: [facility] RN Member Role: Primary Care Nurse Name: Valarie Srivastava RN Position: [facility] RN Member Role: Primary Care Nurse Name: Monica Jacobs RN Position: [facility] RN Member Role: Primary Care Nurse Name: Johanna Castaneda RN Position: [facility] RN Member Role: Primary Care Nurse Address: Address: [address] [place] [address]- [place] Name: Luisa Zavaleta RN Position: [facility] AMB Nurse Member Role: Primary Care Nurse Name: Yulissa Mora RN Position: [facility] SN RN Member Role: Primary Care Nurse Name: Francine Abrams RN Position: [facility] RN Member Role: Primary Care Nurse Name: Shea Marinelli RN Position: [facility] RN Member Role: Primary Care Nurse Care Team Related Persons Name: PEGGY GARDNER Address: home [address] [place] [address] Name: MELNAI WHITEBONicole STAGE NAME Name: ADIA WINTERS
--- OUTSIDE RECORDS SUMMARY | 2022-12-18 06:37 | XMS_ITS | Continuity of Care Document ---
Author Name Unknown Organization [facility] Address [address] [place] [address]- Care Team Providers Care Growth Media Mixer Mushroom Name Role Phone Laly FERNANDEZ, Noemi Marshall Primary Care Physician [place] [facility] [place] [id number] Date(s): 08/08/21 - 09/07/[address] [address]- Attending Physician: Jorge A Sutton Admitting Physician: [...] VIS 10/03 4Result Comment: [12/07/2016] diluent LOT [id number] EXP 03/29/2018 5Result Comment: [07/18/2016] Liquid component: [id number], exp.: 05/2017 6Admin Note: VIS 12/13/2006 7Admin Note: vis 10/30/11 8Admin Note: vis [id number] 9Admin Note: done at [facility] this past march 10Admin Note: VIS GIVEN 2008- 11Admin Note: vis 11/25/06 Medications acetaminophen 500 mg oral tablet 1 tablet, By Mouth, 2 times a day, PRN NEEDED FOR PAIN, TAKE ONLY IF needed, # 60 tablet, 5 Refills, Maintenance, 08/24/21 8:13:00 EDT, [place], [place] - [id number], 167, cm, 08/08/21 11:18:00 EDT, Height, 89.9, kg, 05/25/21 10:21... Start Date: 08/24/21 Status: Ordered Albuterol (Eqv-ProAir HFA) 90 mcg/inh inhalation aerosol 2 puffs, Inhalation, 4 times a day, PRN NEEDED FOR SHORTNESS OF BREATH OR FOR WHEEZING, # 25.5 Gm, 1 Refills, Maintenance, 02/21/21 9:52:00 EDT, [facility] [id number], 2 puffs Inhalation 4 times a day,PRN: [...] 07/26/21 14:15:00 EDT, Route to Pharmacy Electronically, [facility] [id number], Partial fill upon patient request if the [...] Dx ileostomy Z 93.2 fax to [facility], 09/07/21 21:15:00 EDT, Compound Start Date: 09/07/21 Status: Ordered Talbert Elastic barrier strips #492631 Talbert Elastic barrier strips #865213, See Instructions, # 1 units, Refills 11, Tot. Refills 11, Maintenance, To remove appliance at every change Dx Ulcerative Colitis, 01/31/18 11:44:17 EDT, Compound Start Date: 01/31/18 Status: Ordered busPIRone 5 mg oral tablet 1, tablet, By Mouth, 3 times a day, PRN, # 270 tablet, Refills 1, Tot. Refills 1, Maintenance, NEEDED FOR ANXIETY, 08/24/21 8:09:00 EDT, Route to Pharmacy Electronically, [facility] [id number], 167, cm, 08/08/21 11:18:00 ED... Start Date: 08/24/21 Status: Ordered carvedilol 12.5 mg oral tablet 12.5 mg, 1, tablet, By Mouth, 2 times a day, increase in dose, # 60 tablet, Refills 11, Tot. Refills 11, Maintenance, 10/12/20 11:48:00 EDT, Route to Pharmacy Electronically, [facility] [id number], Partial fill upon patient re... Start Date: 10/12/20 Stop Date: 10/07/21 Status: Ordered cetirizine 10 mg oral tablet 1 tablet, By Mouth, Daily, PRN NEEDED for allergy, # 90 tablet, 1 Refills, Maintenance, 04/21/2112:42:00 EST, [facility] [id number], 172, cm, 02/22/21 10:36:00 EDT, Height, 89.7, kg, 07/29/20 7:42:00 EDT, Dry Weight Start Date: 04/21/21 Status: Ordered coloplast #99303 pouch coloplast #15120 pouch, See Instructions, # 20 each, Refills 11, Tot. Refills 11, Maintenance, use as needed for ostomy care. 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 Fax to Andre ([facility]), 06/25/19 12:46:00 EST, Compound Start Date: 06/25/19 Status: Ordered coloplast #04760 pouch coloplast #79982 pouch, See Instructions, # 40 each, Refills 11, Tot. Refills 11, Maintenance, use as needed for ostomy care. 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 Fax to Andre ([facility]). disp 40 coloplast pouche... Start Date: 08/05/19 Status: Ordered coloplast 11109 convex 1 piece coloplast 74567 convex 1 piece, See Instructions, # 1 box, Refills 11, Tot. Refills 11, Maintenance, use for ostomy changes Dx- uc/ileostomy, 07/25/18 11:04:40 EDT, Compound Start Date: 07/25/18 Status: Ordered coloplast bags #78253 coloplast bags #47866, See Instructions, # 20 each, Refills 11, Tot. Refills 11, Maintenance, use as needed for ostomy care Dx. ileostomy Z93.2 fax to [facility], 09/07/21 21:15:00 EDT, Compound Start Date: 09/07/21 Status: Ordered Compression Stockings See Instructions, # 4 each, Refills 1, Tot. Refills 1, Maintenance, knee high compression hose 20-30mm 4 pair dx bilateral leg edema. R60.0 pls fax to [facility], 05/12/19 14:02:00 EST, Compound Start Date: [...] maintenance Dx ileostomy Z93.2 fax to [facility], 09/07/21 21:15:00 EDT, Compound Start Date: 09/07/21 Status: Ordered sophia seals sophia seals, See [...] a day, # 60 tablet, 11 Refills, [facility], 167, cm, 05/26/21 7:07:00 EST, [...] 11 Refills, Maintenance, 01/04/21 11:11:00 EDT, Tablet, [facility] - [place], [place] - [id number], Partial fill upon patient request if the [...] [facility] [address], [address]. [phone] Critical Signal... Start Date: 01/15/18 Status: Ordered [...] Refills, Maintenance, 08/08/21 11:49:00 EDT, REC Powder, [facility] [place], [place] - [id number], Partial fill upon patient request if the prescri... Start Date: 08/08/21 Status: Ordered no sting skin prep spray no sting skin prep spray, See Instructions, # 1 each, Refills 11, Tot. Refills 11, Maintenance, useas needed for ostomy care. Dx ileostomy Z 93.2 fax to [facility], 09/07/21 21:15:00 EDT, Compound Start Date: 09/07/21 Status: Ordered no sting skin prep spray no sting skin prep spray, See Instructions, # 1 bottle, Refills 11, Tot. Refills 11, Maintenance, use as needed for ostomy care dx = illeostomy, 09/12/18 10:12:45 EDT, Compound Start Date: 09/12/18 Status: Ordered No-nsting skin prep #[id number] No-nsting skin prep #48141921, See Instructions, # 1 bottle, Refills 11, Tot. Refills 11, Maintenance, Use as needed for ostomy care Dx: colostomy, 01/31/18 11:44:14 EDT, Compound Start Date: 01/31/18 Status: Ordered omeprazole 40 mg oral enteric coated capsule 1 capsule, By Mouth, 2 times a day, # 60 capsule, 1 Refills, [facility], 167, cm, 05/26/21 7:07:00 EST, [...] maintenance Dx ileostomy Z93.2 fax to [facility], 09/07/21 21:19:00 EDT, Supply Start Date: 09/07/21 Status: Ordered pravastatin 40 mg oral tablet 1 tablet, By Mouth, Daily at bedtime, # 90 tablet, 1 Refills, Maintenance, 07/25/21 12:03:00 EDT, [place], [place] - [id number], 167, cm, 05/26/21 7:07:00 EST, Height, 89.9, [...] Mouth, Daily, # 45 tablet, 11 Refills, [facility], 167, cm, 05/26/21 7:07:00 EST, Height, 89.9, kg, 05/25/21 10:21:00 EST, Dry Weight Start Date: 06/22/21 Status: Ordered sitaGLIPtin 25 mg oral tablet 1 tablet = 25 mg, By Mouth, Daily, pls note the lower dose., # 30 tablet, 11 Refills, Maintenance, 08/11/21 15:34:00 EDT, Tablet, [place], [place] - [id number], Partial fill upon patient request if the [...] mg sublingual film 3 film, Sublingual, Daily, [id number] MassPATchecked. dissolve under tongue May fill on or after 09/08/2021., # 84 film, 0 Refills, Maintenance, 09/04/21 13:48:00 EDT, [place], [place]- [id number], increase in dose from 16 mg to 24... Start Date: 09/04/21 Stop Date: 10/02/21 Status: Ordered traZODone 100 mg oral tablet 1, tablet, By Mouth, Daily at bedtime, PRN, # 90 tablet, Refills 1, Tot. Refills 1, Maintenance, ASNEEDED FOR insomnia, 07/25/21 12:04:00 EDT, [facility] [place] [facility] [id number], 167, cm, 05/26/21 7:07:00... Start Date: 07/25/21 Status: Ordered Triumeq oral tablet 1 tablet, By Mouth, Daily, # 30 tablet, 11 Refills, [facility], 30, TAKE ONE TABLET BY MOUTH DAILY, 167, cm, 05/26/21 7:07:00 EST, Height, 89.9, kg, 05/25/21 10:21:00 EST, Dry Weight Start Date: 07/25/21 Status: Ordered Unisolve adhesive remover #955113 Unisolve adhesive remover #818227, See Instructions, # 1 box, Refills 11, [...] in obese(Confirmed) Active Obese class I(Confirmed) Active *[phone] Care Partn krysten-Jesica Jeter(Confirmed) Active traumatic splenectomy [...]
--- OUTSIDE RECORDS SUMMARY | 2022-12-18 06:37 | XMS_ITS | Continuity of Care Document ---
Author Name Unknown Organization [facility] Address [address] [place] [address]- Care Team Providers Care Head End Desizing Machine Operator Name Role Phone Laly FERNANDEZ, Noemi Marshall Primary Care Physician [phone] Encounter [facility] Date(s): 08/11/20 - 09/10/[address] [address]- Allergies, Adverse Reactions, Alerts Substance Reaction Severity [...] VIS 10/03 4Result Comment: [12/07/2016] diluent LOT [id number] EXP 03/29/2018 5Result Comment: [07/18/2016] Liquid component: [id number], exp.: 05/2017 6Admin Note: VIS 12/13/2006 7Admin Note: vis 10/30/11 8Admin Note: vis [id number] 9Admin Note: done at [facility] this past march 10Admin Note: VIS GIVEN 2008- 11Admin Note: vis 11/25/06 Medications acetaminophen 500 mg oral tablet 1 tablet = 500 mg, By Mouth, 2 times a day, PRN for pain, take only if needed, # 60 tablet, 5 Refills, Maintenance, 04/17/19 10:49:00 EST, Tablet, [facility] [place], [place] -, 172, cm, 04/17/19 9:42:00 EST, Height, 83.7, kg, 04/04/19 0:17:00 E... Start Date: 04/17/19 Stop Date: 10/14/19 Status: Ordered albuterol CFC free 90 mcg/inh inhalation aerosol See Instructions, # 18 Gm, Refills 5 Tot. Refills 5, INHALE 2 PUFFS BY MOUTH INTO THE lungs 4 (FOUR) TIMES DAILY NEEDED FOR SHORTNESS OF BREATH OR FOR WHEEZING, [facility] [place] [place] - Start Date: 01/21/19 Status: Ordered [...] 07/30/20 9:38:00 EDT, Tablet, [facility], Partial fill upon patient [...] 07/14/19 Status: Ordered Talbert Elastic barrier strips #[id number] Talbert Elastic barrier strips #[id number], See Instructions, # 1 units, Refills 11, Tot. Refills 11, Maintenance, To remove appliance at every change Dx Ulcerative Colitis, 01/31/18 11:44:17 EDT, Compound Start Date: 01/31/18 Status: Ordered busPIRone 5 mg oral tablet 5 mg, 1, tablet, By Mouth, 3 times a day, for anxiety, # 270 tablet, Refills 1, Tot. Refills 1, Maintenance, 04/19/20 11:34:00 EST, Route to Pharmacy Electronically, [facility] [id number], 173, cm, 04/12/20 11:01:00 EST, Heigh... Start Date: 04/19/20 Stop Date: 11/15/20 Status: Ordered carvedilol 6.25 mg oral tablet 6.25 mg, 1, tablet, By Mouth, 2 times a day, # 60 tablet, Refills 11, Tot. Refills 11, Maintenance,06/22/20 21:17:00 EST, Route to Pharmacy Electronically, [facility] [id number], 173, cm, 04/12/20 11:01:00 EST, Height, 86.8,... Start Date: 06/22/20 Stop Date: 06/17/21 Status: Ordered cetirizine 10 mg oral tablet 1 tablet = 10 mg, By Mouth, Daily, PRN if needed for allergy symptoms, do not blister pack, # 90 tablet, 1 Refills, Maintenance, 04/19/20 11:34:00 EST, Tablet, [facility] [id number], 173, cm, 04/12/20 11:01:00 EST, Height, 86.... Start Date: 04/19/20 Stop Date: 10/16/20 Status: Ordered Colace Capsule 100 mg, 1, capsule, By Mouth, 2 times a day, Hold for loose stool, Refills 0, Maintenance, :50:00 EST, Partial fill upon patient request if the prescription is for a schedule II opioid drug. Start Date: 04/12/20 Status: Ordered coloplast #29153 pouch coloplast #46973 pouch, See Instructions, # 20 each, Refills 11, Tot. Refills 11, Maintenance, use as needed for ostomy care. 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 Fax to [facility]), 06/25/19 12:46:00 EST, Compound Start Date: 06/25/19 Status: Ordered coloplast #51771 pouch coloplast #27513 pouch, See Instructions, # 40 each, Refills 11, Tot. Refills 11, Maintenance, use as needed for ostomy care. 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 Fax to [facility] ([facility]). disp 40 coloplast pouche... Start Date: 08/05/19 Status: Ordered coloplast 42614 convex 1 piece coloplast 82659 convex 1 piece, See Instructions, # 1 box, Refills 11, Tot. Refills 11, Maintenance, use for ostomy changes Dx- uc/ileostomy, 07/25/18 11:04:40 EDT, Compound Start Date: 07/25/18 Status: Ordered coloplast bags #32679 coloplast bags #69915, See Instructions, # 20 each, Refills 11, Tot. Refills 11, Maintenance, use as needed for ostomy care Dx. ileostomy Z93.2, 07/14/19 10:56:00 EDT, Compound Start Date: 07/14/19 Status: Ordered Compression Stockings See Instructions, # 4 each, Refills 1, Tot. Refills 1, Maintenance, knee high compression hose 20-30mm 4 pair dx bilateral leg edema. R60.0 pls fax to [facility], 05/12/19 14:02:00 EST, Compound Start [...] 11 Refills, Maintenance, 07/23/20 12:00:00 EDT, Tablet, [place], [place] - [id number], 173, cm, 07/19/20 10:52:00 EDT, Height, 86.8, [...] 07/18/21 12:01:00 EDT, 07/23/20 12:01:00 EDT, Tablet, [facility] [place] [place] - [id number], 173, cm, 07/19/20 10:52:00 EDT, Hei... Start Date: 07/23/20 Stop Date: 07/18/21 Status: Ordered LifeLine LifeLine, See Instructions, # 1 each, Refills 0, Tot. Refills 0, Maintenance, use to call for help in the home as directed length of need 99 B20, F32.9, F11.2 Pt address/#: [address] [place] [address], [address]. [phone] Critical Signal... Start Date: 01/15/18 Status: Ordered [...] Date: 09/12/18 Status: Ordered No-nsting skin prep #[id number] No-nsting skin prep #[id number], See Instructions, # 1 bottle, Refills 11, Tot. Refills 11, Maintenance, Use as needed for ostomy care Dx: colostomy, 01/31/18 11:44:14 EDT, Compound Start Date: 01/31/18 Status: Ordered omeprazole 20 mg oral enteric coated capsule 1 capsule = 20 mg, By Mouth, Daily, PRN only if needed for acid reflux symptoms, # 90 capsule, 1 Refills, Maintenance, 07/23/20 12:01:00 EDT, EC Capsule, [facility] [place] [place] - [id number], 173, cm, 07/19/20 10:52:00 EDT, Height, 86.8, [...] tablet, 11 Refills, Maintenance, 08/02/20 17:47:00 EDT, [facility], 172, cm, 07/30/20 16:38:00 EDT, [...] mg sublingual film 2 film, Sublingual, Daily, [id number] MassPATchecked. dissolve under tongue, # 56 film, 0 Refills, Maintenance, 08/27/20 9:08:00 EDT, [place], [place] - [id number], 2 film Sublingual Daily,x28 days,Instr:[id number]; MassPATchecked.... Start Date: 08/27/20 Stop Date: 09/24/20 Status: Ordered traZODone 100 mg oral tablet 1, tablet, By Mouth, Daily at bedtime, PRN, # 30 tablet, Refills 11, Tot. Refills 0, Maintenance, NEEDED FOR insomnia, 07/23/20 12:03:00 EDT, Route to Pharmacy Electronically, [facility], 173, cm, 07/19/20 10:52:00 EDT, Height, 86.8, kg, 04/07... Start Date: 07/23/20 Status: Ordered Triumeq oral tablet 1 tablet, By Mouth, Daily, # 30 tablet, 11 Refills, Maintenance, 07/23/20 12:00:00 EDT, Tablet, [facility] [place], [place] - [id number], 1 tablet By Mouth Daily,x30 days, 173, cm, 07/19/20 10:52:00 EDT, Height, 86.8, kg, 04/07/20 8:07:00 EST D... Start Date: 07/23/20 Stop Date: 07/18/21 Status: Ordered Unisolve adhesive remover #852752 Unisolve adhesive remover #[id number], See Instructions, # 1 box, Refills 11, [...] inguinal pain(Confirmed) Active 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) Active *[id number] Care Partn krysten-Jesica Jeter(Confirmed) Active traumatic splenectomy [...]
--- OUTSIDE RECORDS SUMMARY | 2022-12-18 06:37 | XMS_ITS | Continuity of Care Document ---
Author Name Unknown Organization [facility] Address [address] [place] [address]- Care Team Providers Care Education Coordinator Name Role Phone Noemi Ruffin MD, I Primary Care Physician [facility]counter [facility] Date(s): 11/25/19 - 12/25/[address] [address]- [facility] Allergies, Adverse Reactions, Alerts Substance Reaction Severity [...] VIS 10/03 3Result Comment: [12/07/2016] diluent LOT [id number] EXP 03/29/2018 4Result Comment: [07/18/2016] Liquid component: [id number], exp.: 05/2017 5Admin Note: VIS 12/13/2006 6Admin Note: vis 10/30/11 7Admin Note: vis [id number] 8Admin Note: done at [facility] this past march 9Admin Note: VIS GIVEN 2008- 10Admin Note: vis 11/25/06 Medications acetaminophen 500 mg oral tablet 1 tablet = 500 mg, By Mouth, 2 times a day, PRN for pain, take only if needed, # 60 tablet, 5 Refills, Maintenance, 04/17/19 10:49:00 EST, Tablet, [place], [place] -, 172, cm, 04/17/19 9:42:00 EST, Height, 83.7, kg, 04/04/19 0:17:00 E... Start Date: 04/17/19 Stop Date: 10/14/19 Status: Ordered albuterol CFC free 90 mcg/inh inhalation aerosol See Instructions, # 18 Gm, Refills 5 Tot. Refills 5, INHALE 2 PUFFS BY MOUTH INTO THE lungs 4 (FOUR) TIMES DAILY NEEDED FOR SHORTNESS OF BREATH OR FOR WHEEZING, [place], [place] - Start Date: 01/21/19 Status: Ordered Alcohol Pads See Instructions, # 50 each, Refills 11, Tot. Refills 11, Maintenance, E11.9 check BG daily, 12/05/18 7:49:59 EDT, Compound Start Date: 12/05/18 Status: Ordered amLODIPine 5 mg oral tablet 5 mg, 1, tablet, By Mouth, Daily, # 30 tablet, Refills 11, Tot. Refills 11, Maintenance, 06/16/19 12:27:00 EST, Route to Pharmacy Electronically, [facility] [place], [place] -, 172, cm, 06/16/19 11:20:00 EST, [...] 07/14/19 Status: Ordered Talbert Elastic barrier strips #[id number] Talbert Elastic barrier strips #357365, See Instructions, # 1 units, Refills 11, Tot. Refills 11, Maintenance, To remove appliance at every change Dx Ulcerative Colitis, 01/31/18 11:44:17 EDT, Compound Start Date: 01/31/18 Status: Ordered busPIRone 5 mg oral tablet 5 mg, 1, tablet, By Mouth, 3 times a day, for anxiety, # 90 tablet, Refills 11, Tot. Refills 11, Maintenance, 04/17/19 10:43:00 EST, Route to Pharmacy Electronically, [place], [place] -, 172, cm, 04/17/19 9:42:00 EST, Height, 83.7, kg... Start Date: 04/17/19 Stop Date: 04/11/20 Status: Ordered carvedilol 6.25 mg oral tablet 6.25 mg, 1, tablet, By Mouth, 2 times a day, # 60 tablet, Refills 11, Tot. Refills 11, Maintenance,06/16/19 12:25:00 EST, Route to Pharmacy Electronically, [place], [place] -, 172, cm, 06/16/19 11:20:00 EST, [...] 04/17/19 10:43:00 EST, Route to Pharmacy Electronically, [place], [place] -, 172, cm, 04/17/19 9:42:00 EST, Height, 83.7, kg, 04/04/19 0:17:... Start Date: 04/17/19 Stop Date: 04/11/20 Status: Ordered Citrucel 500 mg oral tablet 2 tablet = 1,000 mg, By Mouth, Daily, for 60 days, with plenty of water, # 120 tablet, 1 Refills, Acute 02/12/20 16:54:00 EDT, 10/15/19 16:54:00 EDT, [facility], 172, cm, 06/25/19 10:26:00 EST, Height, 83.7, kg, 04/04/19 0:17:... Start Date: 10/15/19 Stop Date: 02/12/20 Status: Ordered coloplast #00987 pouch coloplast #05524 pouch, See Instructions, # 20 each, Refills 11, Tot. Refills 11, Maintenance, use as needed for ostomy care. 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 [facility]ax to [facility]), 06/25/19 12:46:00 EST, Compound Start Date: 06/25/19 Status: Ordered coloplast #87743 pouch coloplast #53985 pouch, See Instructions, # 40 each, Refills 11, Tot. Refills 11, Maintenance, use as needed for ostomy care. 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 Fax to [facility] ([facility]). disp 40 coloplast pouche... Start Date: 08/05/19 Status: Ordered coloplast 14185 convex 1 piece coloplast 68293 convex 1 piece, See Instructions, # 1 box, Refills 11, Tot. Refills 11, Maintenance, use for ostomy changes Dx- uc/ileostomy, 07/25/18 11:04:40 EDT, Compound Start Date: 07/25/18 Status: Ordered coloplast bags #69842 coloplast bags #83433, See Instructions, # 20 each, Refills 11, Tot. Refills 11, Maintenance, use as needed for ostomy care Dx. ileostomy Z93.2, 07/14/19 10:56:00 EDT, Compound Start Date: 07/14/19 Status: Ordered Compression Stockings See Instructions, # 4 each, Refills 1, Tot. Refills 1, Maintenance, knee high compression hose 20-30mm 4 pair dx bilateral leg edema. R60.0 pls fax to [facility], 05/12/19 14:02:00 EST, Compound Start [...] 11 Refills, Maintenance, 07/29/19 11:40:00 EDT, Tablet, [facility] [place], [place] -, 172, cm, 06/25/19 10:26:00 EST, Height, 83.7, kg, 04/04/19 0:17:00 EST, Dry Weight Start Date: 07/29/19 Stop Date: 07/23/20 Status: Ordered hydrOXYzine hydrochloride 10 mg oral tablet 2 tablet = 20 mg, By Mouth, 3 times a day, PRN for itching, # 80 tablet, 0 Refills, Maintenance, 06/25/19 11:37:00 EST, Tablet, [place], [place] -, 172, cm, 06/25/19 10:26:00 EST, [...] 01/02/19 10:34:25 EDT, Route to Pharmacy Electronically, [id number], Kate... Start Date: 01/02/19 Stop Date: 07/01/19 Status: Ordered Januvia 50 mg oral tablet 1 tablet = 50 mg, By Mouth, Daily before breakfast, for diabetes, # 30 tablet, 11 Refills, Maintenance, 04/17/19 10:46:00 EST, Tablet, [place], [place] -, 172, cm, 04/17/19 9:42:00 EST, Height, 83.7, kg, 04/04/19 0:17:00 EST, Dry Weight Start Date: 04/17/19 Stop Date: 04/11/20 Status: Ordered LifeLine LifeLine, See Instructions, # 1 each, Refills 0, Tot. Refills 0, Maintenance, use to call for help in the home as directed length of need 99 B20, F32.9, F11.2 Pt address/#: [address] [place] [address], [address]. [phone] Critical Signal... Start Date: 01/15/18 Status: Ordered [...] Date: 09/12/18 Status: Ordered No-nsting skin prep #[id number] No-nsting skin prep #52979052, See Instructions, # 1 bottle, Refills 11, Tot. Refills 11, Maintenance, Use as needed for ostomy care Dx: colostomy, 01/31/18 11:44:14 EDT, Compound Start Date: 01/31/18 Status: Ordered omeprazole 20 mg oral enteric coated capsule 1 capsule = 20 mg, By Mouth, Daily, PRN only if needed for acid reflux symptoms, # 30 capsule, 5 Refills, Maintenance, 04/17/19 10:49:00 EST, EC Capsule, [place], [place] -, 172, cm,04/17/19 9:42:00 EST, Height, [...] tablet, 5 Refills, Maintenance, 07/19/19 13:20:00 EDT, [facility], 172, cm, 06/25/19 10:26:00 EST, Height, [...] 11 Refills, Maintenance, 06/16/19 12:26:00 EST, Tablet, [facility] [place], [place] -, 172, cm, 06/16/19 11:20:00 EST, [...] mg sublingual film 3 each, Sublingual, Daily, [id number], MassPATchecked. dissolve under tongue (ok to divide dose 3x/dif helps w/ pain), # 84 film, 0 Refills, Maintenance, 11/25/19 11:54:00 EDT, [place], [place] - [id number], 3 each Sublingual Daily,x... Start Date: 11/25/19 Stop Date: 12/23/19 Status: Ordered traZODone 100 mg oral tablet 1, tablet, By Mouth, Daily at bedtime, PRN, # 30 tablet, Refills 11, Tot. Refills 0, Maintenance, NEEDED FOR insomnia, 07/19/19 17:09:00 EDT, Route to Pharmacy Electronically, [facility], 172, cm, 06/25/19 10:26:00 EST, Height, 83.7, kg, 04/04... Start Date: 07/19/19 Status: Ordered Triumeq oral tablet 1 tablet, By Mouth, Daily, # 30 tablet, 11 Refills, Maintenance, 07/29/19 11:40:00 EDT, Tablet, [place], [place] -, 1 tablet By Mouth Daily,x30 days, 172, cm, 06/25/19 10:26:00 EST, Height, 83.7, kg, 04/04/19 0:17:00 EST, Dry Weight Start Date: 07/29/19 Stop Date: 07/23/20 Status: Ordered Unisolve adhesive remover #318604 Unisolve adhesive remover #917569, See Instructions, # 1 box, Refills 11, Tot. Refills 11, Maintenance, To remove appliance at every change Dx Ulcerative Colitis, 01/31/18 11:44:15 EDT, Compound Start Date: 01/31/18 Status: Ordered Voltaren 1% topical gel See Instructions, PRN pain R knee, apply to painful knees 1-2x/day maximum; wash hands after, # 100Gm, 3 Refills, Maintenance, 06/25/19 11:49:00 EST, Gel, [place], [place] -, apply to painful knees 1-2x/day [...] 0 Refills, Maintenance, 06/25/19 11:36:00 EST, Tablet, [facility] [place], [place] -, 172, cm, 06/25/19 10:26:00 EST, [...] inguinal pain(Confirmed) Active 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) Active *[phone]- Care Part ner Jacky Sandhu(Confirmed) Active traumatic [...]
--- OUTSIDE RECORDS SUMMARY | 2022-12-18 06:37 | XMS_ITS | Continuity of Care Document ---
Author Name Unknown Organization [facility] Address [address] [place] [address]- Care Team Providers Care Qa Specialist Name Role Phone Noemi Ruffin MD, I Primary Care Physician [facility] Date[facility]s): 12/10/19 - 01/09/[address] [address]- [facility] Allergies, Adverse Reactions, Alerts [...] VIS 10/03 3Result Comment: [12/07/2016] diluent LOT [id number] EXP 03/29/2018 4Result Comment: [07/18/2016] Liquid component: [id number], exp.: 05/2017 5Admin Note: VIS 12/13/2006 6Admin Note: vis 10/30/11 7Admin Note: vis [id number] 8Admin Note: done at [facility] this past march 9Admin Note: VIS GIVEN 2008- 10Admin Note: vis 11/25/06 Medications acetaminophen 500 mg oral tablet 1 tablet = 500 mg, By Mouth, 2 times a day, PRN for pain, take only if needed, # 60 tablet, 5 Refills, Maintenance, 04/17/19 10:49:00 EST, Tablet, [place], [place] -, 172, cm, 04/17/19 9:42:00 EST, Height, 83.7, kg, 04/04/19 0:17:00 E... Start Date: 04/17/19 Stop Date: 10/14/19 Status: Ordered albuterol CFC free 90 mcg/inh inhalation aerosol See Instructions, # 18 Gm, Refills 5 Tot. Refills 5, INHALE 2 PUFFS BY MOUTH INTO THE lungs 4 (FOUR) TIMES DAILY NEEDED FOR SHORTNESS OF BREATH OR FOR WHEEZING, [place], [place] - Start Date: 01/21/19 Status: Ordered Alcohol Pads See Instructions, # 50 each, Refills 11, Tot. Refills 11, Maintenance, E11.9 check BG daily, 12/05/18 7:49:59 EDT, Compound Start Date: 12/05/18 Status: Ordered amLODIPine 5 mg oral tablet 5 mg, 1, tablet, By Mouth, Daily, # 30 tablet, Refills 11, Tot. Refills 11, Maintenance, 06/16/19 12:27:00 EST, Route to Pharmacy Electronically, [facility] [place], [place] -, 172, cm, 06/16/19 11:20:00 EST, [...] 07/14/19 Status: Ordered Talbert Elastic barrier strips #374231 Talbert Elastic barrier strips #395432, See Instructions, # 1 units, Refills 11, Tot. Refills 11, Maintenance, To remove appliance at every change Dx Ulcerative Colitis, 01/31/18 11:44:17 EDT, Compound Start Date: 01/31/18 Status: Ordered busPIRone 5 mg oral tablet 5 mg, 1, tablet, By Mouth, 3 times a day, for anxiety, # 90 tablet, Refills 11, Tot. Refills 11, Maintenance, 04/17/19 10:43:00 EST, Route to Pharmacy Electronically, [place], [place] -, 172, cm, 04/17/19 9:42:00 EST, Height, 83.7, kg... Start Date: 04/17/19 Stop Date: 04/11/20 Status: Ordered carvedilol 6.25 mg oral tablet 6.25 mg, 1, tablet, By Mouth, 2 times a day, # 60 tablet, Refills 11, Tot. Refills 11, Maintenance,06/16/19 12:25:00 EST, Route to Pharmacy Electronically, [place], [place] -, 172, cm, 06/16/19 11:20:00 [...] 04/17/19 10:43:00 EST, Route to Pharmacy Electronically, [place], [place] -, 172, cm, 04/17/19 9:42:00 [...] 10/15/19 Stop Date: 02/12/20 Status: Ordered coloplast #72289 pouch coloplast #93858 pouch, See Instructions, # 20 each, Refills 11, Tot. Refills 11, Maintenance, use as needed for ostomy care. 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 Fax to [facility]), 06/25/19 12:46:00 EST, Compound Start Date: 06/25/19 Status: Ordered coloplast #15798 pouch coloplast #50484 pouch, See Instructions, # 40 each, Refills 11, Tot. Refills 11, Maintenance, use as needed for ostomy care. 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 Fax to [facility]). disp 40 coloplast pouche... Start Date: 08/05/19 Status: Ordered coloplast 57703 convex 1 piece coloplast 88368 convex 1 piece, See Instructions, # 1 box, Refills 11, Tot. Refills 11, Maintenance, use for ostomy changes Dx- uc/ileostomy, 07/25/18 11:04:40 EDT, Compound Start Date: 07/25/18 Status: Ordered coloplast bags #41178 coloplast bags #15599, See Instructions, # 20 each, Refills 11, Tot. Refills 11, Maintenance, use as needed for ostomy care Dx. ileostomy Z93.2, 07/14/19 10:56:00 EDT, Compound Start Date: 07/14/19 Status: Ordered Compression Stockings See Instructions, # 4 each, Refills 1, Tot. Refills 1, Maintenance, knee high compression hose 20-30mm 4 pair dx bilateral leg edema. R60.0 pls fax to [facility], 05/12/19 14:02:00 EST, Compound Start Date: [...] 11 Refills, Maintenance, 07/29/19 11:40:00 EDT, Tablet, [facility] [place], [place] -, 172, cm, 06/25/19 10:26:00 EST, Height, 83.7, kg, 04/04/19 0:17:00 EST, Dry Weight Start Date: 07/29/19 Stop Date: 07/23/20 Status: Ordered hydrOXYzine hydrochloride 10 mg oral tablet 2 tablet = 20 mg, By Mouth, 3 times a day, PRN for itching, # 80 tablet, 0 Refills, Maintenance, 06/25/19 11:37:00 EST, Tablet, [place], [place] -, 172, cm, 06/25/19 10:26:00 [...] 01/02/19 10:34:25 EDT, Route to Pharmacy Electronically, [id number]... Start Date: 01/02/19 Stop Date: 07/01/19 Status: Ordered Januvia 50 mg oral tablet 1 tablet = 50 mg, By Mouth, Daily before breakfast, for diabetes, # 30 tablet, 11 Refills, Maintenance, 04/17/19 10:46:00 EST, Tablet, [place], [place] -, 172, cm, 04/17/19 9:42:00 EST, Height, 83.7, kg, 04/04/19 0:17:00 EST, Dry Weight Start Date: 04/17/19 Stop Date: 04/11/20 Status: Ordered LifeLine LifeLine, See Instructions, # 1 each, Refills 0, Tot. Refills 0, Maintenance, use to call for help in the home as directed length of need 99 B20, F32.9, F11.2 Pt address/#: [address] [place] [address], [address]. [phone] Critical Signal... Start Date: 01/15/18 Status: Ordered [...] Date: 09/12/18 Status: Ordered No-nsting skin prep #[id number] No-nsting skin prep #27604049, See Instructions, # 1 bottle, Refills 11, Tot. Refills 11, Maintenance, Use as needed for ostomy care Dx: colostomy, 01/31/18 11:44:14 EDT, Compound Start Date: 01/31/18 Status: Ordered omeprazole 20 mg oral enteric coated capsule 1 capsule = 20 mg, By Mouth, Daily, PRN only if needed for acid reflux symptoms, # 30 capsule, 5 Refills, Maintenance, 04/17/19 10:49:00 EST, EC Capsule, [place], [place] -, 172, cm,04/17/19 9:42:00 EST, [...] tablet, 5 Refills, Maintenance, 07/19/19 13:20:00 EDT, [facility], 172, cm, 06/25/19 10:26:00 [...] 11 Refills, Maintenance, 06/16/19 12:26:00 EST, Tablet, [facility] [place], [place] -, 172, cm, 06/16/19 11:20:00 EST, [...] mg sublingual film 3 each, Sublingual, Daily, [id number], MassPATchecked. dissolve under tongue (ok to divide dose 3x/dif helps w/ pain), # 84 film, 0 Refills, Maintenance, 11/25/19 11:54:00 EDT, [place], [place] - [id number], 3 each Sublingual Daily,x... Start Date: 11/25/19 Stop Date: 12/23/19 Status: Ordered traZODone 100 mg oral tablet 1, tablet, By Mouth, Daily at bedtime, PRN, # 30 tablet, Refills 11, Tot. Refills 0, Maintenance, NEEDED FOR insomnia, 07/19/19 17:09:00 EDT, Route to Pharmacy Electronically, [facility], 172, cm, 06/25/19 10:26:00 EST, Height, 83.7, kg, 04/04... Start Date: 07/19/19 Status: Ordered Triumeq oral tablet 1 tablet, By Mouth, Daily, # 30 tablet, 11 Refills, Maintenance, 07/29/19 11:40:00 EDT, Tablet, [place], [place] -, 1 tablet By Mouth Daily,x30 days, 172, cm, 06/25/19 10:26:00 EST, Height, 83.7, kg, 04/04/19 0:17:00 EST, Dry Weight Start Date: 07/29/19 Stop Date: 07/23/20 Status: Ordered Unisolve adhesive remover #961131 Unisolve adhesive remover #318081, See Instructions, # 1 box, Refills 11, Tot. Refills 11, Maintenance, To remove appliance at every change Dx Ulcerative Colitis, 01/31/18 11:44:15 EDT, Compound Start Date: 01/31/18 Status: Ordered Voltaren 1% topical gel See Instructions, PRN pain R knee, apply to painful knees 1-2x/day maximum; wash hands after, # 100Gm, 3 Refills, Maintenance, 06/25/19 11:49:00 EST, Gel, [place], [place] -, apply to painful knees 1-2x/day [...] 0 Refills, Maintenance, 06/25/19 11:36:00 EST, Tablet, [facility] [place], [place] -, 172, cm, 06/25/19 10:26:00 EST, [...] inguinal pain(Confirmed) Active 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) Active *[phone]- Care Part ner Jacky Sandhu(Confirmed) Active traumatic [...]
--- OUTSIDE RECORDS SUMMARY | 2022-12-18 06:37 | XMS_ITS | Continuity of Care Document ---
Author Name Unknown Organization [facility] Address [address] [place] [address]- Care Team Providers Care Floral Associate Name Role Phone Noemi Ruffin MD, I Primary Care Physician Encounter [facility] Date(s): 06/22/20 - 07/22/[address] [address]- Allergies, Adverse Reactions, Alerts Substance Reaction Severity [...] VIS 10/03 3Result Comment: [12/07/2016] diluent LOT [id number] EXP 03/29/2018 4Result Comment: [07/18/2016] Liquid component: [id number], exp.: 05/2017 5Admin Note: VIS 12/13/2006 6Admin Note: vis 10/30/11 7Admin Note: vis [id number] 8Admin Note: done at [facility] this past march 9Admin Note: VIS GIVEN 2008- 10Admin Note: vis 11/25/06 Medications acetaminophen 500 mg oral tablet 1 tablet = 500 mg, By Mouth, 2 times a day, PRN for pain, take only if needed, # 60 tablet, 5 Refills, Maintenance, 04/17/19 10:49:00 EST, Tablet, [facility] [place], [place] -, 172, cm, 04/17/19 9:42:00 EST, Height, 83.7, kg, 04/04/19 0:17:00 E... Start Date: 04/17/19 Stop Date: 10/14/19 Status: Ordered albuterol CFC free 90 mcg/inh inhalation aerosol See Instructions, # 18 Gm, Refills 5 Tot. Refills 5, INHALE 2 PUFFS BY MOUTH INTO THE lungs 4 (FOUR) TIMES DAILY NEEDED FOR SHORTNESS OF BREATH OR FOR WHEEZING, [facility] [place], [place] - Start Date: 01/21/19 Status: Ordered Alcohol Pads See Instructions, # 50 each, Refills 11, Tot. Refills 11, Maintenance, E11.9 check BG daily, 12/05/18 7:49:59 EDT, Compound Start Date: 12/05/18 Status: Ordered amLODIPine 5 mg oral tablet 1 tablet, By Mouth, Daily, # 30 tablet, 11 Refills, Maintenance, 06/22/20 20:22:00 EST, [facility], 173, cm, 04/12/20 11:01:00 [...] 07/14/19 Status: Ordered Talbert Elastic barrier strips #[id number] Talbert Elastic barrier strips #454144, See Instructions, # 1 units, Refills 11, [...] 04/19/20 11:34:00 EST, Route to Pharmacy Electronically, [facility], [facility] [id number], 173, cm, 04/12/20 11:01:00 EST, Heigh... Start Date: 04/19/20 Stop Date: 11/15/20 Status: Ordered carvedilol 6.25 mg oral tablet 6.25 mg, 1, tablet, By Mouth, 2 times a day, # 60 tablet, Refills 2, Tot. Refills 2, Maintenance, 06/22/20 11:26:00 EST, Route to Pharmacy Electronically, [facility], [facility] [id number], 173, cm, 04/12/20 11:01:00 EST, Height, 86.8, kg... Start Date: 06/22/20 Stop Date: 09/20/20 Status: Ordered carvedilol 6.25 mg oral tablet 6.25 mg, 1, tablet, By Mouth, 2 times a day, # 60 tablet, Refills 11, Tot. Refills 11, Maintenance,06/22/20 21:17:00 EST, Route to Pharmacy Electronically, [facility], [facility] [id number], 173, cm, 04/12/20 11:01:00 EST, Height, 86.8,... Start Date: 06/22/20 Stop Date: 06/17/21 Status: Ordered cetirizine 10 mg oral tablet 1 tablet = 10 mg, By Mouth, Daily, PRN if needed for allergy symptoms, do not blister pack, # 90 tablet, 1 Refills, Maintenance, 04/19/20 11:34:00 EST, Tablet, [facility], [facility] [id number], 173, cm, 04/12/20 11:01:00 EST, Height, 86.... Start Date: 04/19/20 Stop Date: 10/16/20 Status: Ordered Colace Capsule 100 mg, 1, capsule, By Mouth, 2 times a day, Hold for loose stool, Refills 0, Maintenance, 208:50:00 EST, Partial fill upon patient request if the prescription is for a schedule II opioid drug. Start Date: 04/12/20 Status: Ordered coloplast #73532 pouch coloplast #77018 pouch, See Instructions, # 20 each, Refills 11, Tot. Refills 11, Maintenance, use as needed for ostomy care. 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 Fax to Andre ([facility] [place]), 06/25/19 12:46:00 EST, Compound Start Date: 06/25/19 Status: Ordered coloplast #19180 pouch coloplast #09961 pouch, See Instructions, # 40 each, Refills 11, Tot. Refills 11, Maintenance, use as needed for ostomy care. 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 Fax to Andre ([facility] [place]). disp 40 coloplast pouche... Start Date: 08/05/19 Status: Ordered coloplast 22311 convex 1 piece coloplast 54468 convex 1 piece, See Instructions, # 1 box, Refills 11, Tot. Refills 11, Maintenance, use for ostomy changes Dx- uc/ileostomy, 07/25/18 11:04:40 EDT, Compound Start Date: 07/25/18 Status: Ordered coloplast bags #24794 coloplast bags #48205, See Instructions, # 20 each, Refills 11, Tot. Refills 11, Maintenance, use as needed for ostomy care Dx. ileostomy Z93.2, 07/14/19 10:56:00 EDT, Compound Start Date: 07/14/19 Status: Ordered Compression Stockings See Instructions, # 4 each, Refills 1, Tot. Refills 1, Maintenance, knee high compression hose 20-30mm 4 pair dx bilateral leg edema. R60.0 pls fax to [facility], 05/12/19 14:02:00 EST, Compound Start [...] USE, # 100 Gm, 5 Refills, Maintenance, [facility], 30, APPLY TO PAINFUL [...] 11 Refills, Maintenance, 07/29/19 11:40:00 EDT, Tablet, [place], [place] -, 172, cm, 06/25/19 10:26:00 EST, [...] 0 Refills, Maintenance, 04/19/20 11:35:00 EST, Tablet, [place], [place] - [id number], 173, cm, 04/12/2011:01:00 EST, Height, 86.8, kg, 04/07/20 8:07:00 ES... Start Date: 04/19/20 Stop Date: 04/14/21 Status: Ordered LifeLine LifeLine, See Instructions, # 1 each, Refills 0, Tot. Refills 0, Maintenance, use to call for help in the home as directed length of need 99 B20, F32.9, F11.2 Pt address/#: [address] [place] [address], [address]. [phone] Critical Signal... Start Date: 01/15/18 Status: Ordered [...] Date: 09/12/18 Status: Ordered No-nsting skin prep #47309770 No-nsting skin prep #35255039, See Instructions, # 1 bottle, Refills 11, Tot. Refills 11, Maintenance, Use as needed for ostomy care Dx: colostomy, 01/31/18 11:44:14 EDT, Compound Start Date: 01/31/18 Status: Ordered omeprazole 20 mg oral enteric coated capsule 1 capsule = 20 mg, By Mouth, Daily, PRN only if needed for acid reflux symptoms, # 90 capsule, 0 Refills, Maintenance, 04/19/20 11:34:00 EST, EC Capsule, [facility] [id number], 173, cm, 04/12/20 11:01:00 EST, Height, 86.8, [...] tablet, 11 Refills, Maintenance, 06/22/20 20:22:00 EST, [facility], 173, cm, 04/12/20 11:01:00 [...] mg sublingual film 1.5 film, Sublingual, Daily, [id number] MassPATchecked. dissolve under tongue, # 42 film, 0 Refills,Maintenance, 07/19/20 11:29:00 EDT, [facility] [place], [place] - [id number], 1.5 film Sublingual Daily,x28 days,Instr:[id number]; MassPATchec... Start Date: 07/19/20 Stop Date: 08/16/20 Status: Ordered traZODone 100 mg oral tablet 1, tablet, By Mouth, Daily at bedtime, PRN, # 30 tablet, Refills 11, Tot. Refills 0, Maintenance, NEEDED FOR insomnia, 07/19/19 17:09:00 EDT, Route to Pharmacy Electronically, [facility], 172, cm, 06/25/19 10:26:00 EST, Height, 83.7, kg, 04/04... Start Date: 07/19/19 Status: Ordered Triumeq oral tablet 1 tablet, By Mouth, Daily, # 30 tablet, 11 Refills, Maintenance, 07/29/19 11:40:00 EDT, Tablet, [facility] [place], [place] -, 1 tablet By Mouth Daily,x30 days, 172, cm, 06/25/19 10:26:00 EST, Height, 83.7, kg, 04/04/19 0:17:00 EST, Dry Weight Start Date: 07/29/19 Stop Date: 07/23/20 Status: Ordered Unisolve adhesive remover #072152 Unisolve adhesive remover #189236, See Instructions, # 1 box, Refills 11, Tot. Refills 11, Maintenance, To remove appliance at every change Dx Ulcerative Colitis, 01/31/18 11:44:15 EDT, Compound Start Date: 01/31/18 Status: Ordered warfarin 1 mg oral tablet See Instructions, Take 1-10 tablets By Mouth Daily as directed by [facility], # 150 tablet, 0 Refills, Maintenance, 04/12/20 8:51:00 EST, Tablet, [facility] 3, Partial fill upon patient [...] inguinal pain(Confirmed) Active 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) Active *[phone] Care Partn er-Jesica Jeter(Confirmed) Active traumatic splenectomy [...]
--- OUTSIDE RECORDS SUMMARY | 2022-12-18 06:37 | XMS_ITS | Continuity of Care Document ---
Author Name Unknown Organization [facility] Address [address] [place] [address]- Care Team Providers Care Control Engineer Name Role Phone Laly FERNANDEZ, Noemi Marshall Primary Care Physician [place] [facility] [place] [facility] [place]14/19 [facility] [address] [place] [address]- [facility] Attending Physician: Jorge A Sutton Admitting Physician: [...] VIS 10/03 3Result Comment: [12/07/2016] diluent LOT [id number] EXP 03/29/2018 4Result Comment: [07/18/2016] Liquid component: [id number], exp.: 05/2017 5Admin Note: VIS 12/13/2006 6Admin Note: vis 10/30/11 7Admin Note: vis [id number] 8Admin Note: done at [facility] this past march 9Admin Note: VIS GIVEN 2008- 10Admin Note: vis 11/25/06 Medications acetaminophen 500 mg oral tablet 1 tablet = 500 mg, By Mouth, 2 times a day, PRN for pain, take only if needed, # 60 tablet, 5 Refills, Maintenance, 04/17/19 10:49:00 EST, Tablet, [place], [place] -, 172, cm, 04/17/19 9:42:00 EST, Height, 83.7, kg, 04/04/19 0:17:00 E... Start Date: 04/17/19 Stop Date: 10/14/19 Status: Ordered albuterol CFC free 90 mcg/inh inhalation aerosol See Instructions, # 18 Gm, Refills 5 Tot. Refills 5, INHALE 2 PUFFS BY MOUTH INTO THE lungs 4 (FOUR) TIMES DAILY NEEDED FOR SHORTNESS OF BREATH OR FOR WHEEZING, [place], [place] - Start Date: 01/21/19 Status: Ordered Alcohol Pads See Instructions, # 50 each, Refills 11, Tot. Refills 11, Maintenance, E11.9 check BG daily, 12/05/18 7:49:59 EDT, Compound Start Date: 12/05/18 Status: Ordered amLODIPine 5 mg oral tablet 5 mg, 1, tablet, By Mouth, Daily, # 30 tablet, Refills 11, Tot. Refills 11, Maintenance, 06/16/19 12:27:00 EST, Route to Pharmacy Electronically, [place], [place] -, 172, cm, 06/16/19 11:20:00 [...] 07/14/19 Status: Ordered Talbert Elastic barrier strips #437628 Talbert Elastic barrier strips #361419, See Instructions, # 1 units, Refills 11, Tot. Refills 11, Maintenance, To remove appliance at every change Dx Ulcerative Colitis, 01/31/18 11:44:17 EDT, Compound Start Date: 01/31/18 Status: Ordered busPIRone 5 mg oral tablet 5 mg, 1, tablet, By Mouth, 3 times a day, for anxiety, # 90 tablet, Refills 11, Tot. Refills 11, Maintenance, 04/17/19 10:43:00 EST, Route to Pharmacy Electronically, [facility], 172, cm, 04/17/19 9:42:00 EST, Height, 83.7, kg... Start Date: 04/17/19 Stop Date: 04/11/20 Status: Ordered carvedilol 6.25 mg oral tablet 6.25 mg, 1, tablet, By Mouth, 2 times a day, # 60 tablet, Refills 11, Tot. Refills 11, Maintenance,06/16/19 12:25:00 EST, Route to Pharmacy Electronically, [place], [place] -, 172, cm, 06/16/19 11:20:00 [...] 04/17/19 10:43:00 EST, Route to Pharmacy Electronically, [place], [place] -, 172, cm, 04/17/19 9:42:00 EST, Height, 83.7, kg, 04/04/19 0:17:... Start Date: 04/17/19 Stop Date: 04/11/20 Status: Ordered Citrucel 500 mg oral tablet 2 tablet = 1,000 mg, By Mouth, Daily, for 60 days, with plenty of water, # 120 tablet, 1 Refills, Acute 02/12/20 16:54:00 EDT, 10/15/19 16:54:00 EDT, [place], [place] -, 172, cm, 06/25/19 10:26:00 EST, Height, 83.7, kg, 04/04/19 0:17:... Start Date: 10/15/19 Stop Date: 02/12/20 Status: Ordered coloplast #85831 pouch coloplast #36094 pouch, See Instructions, # 20 each, Refills 11, Tot. Refills 11, Maintenance, use as needed for ostomy care. 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 Fax to [facility]), 06/25/19 12:46:00 EST, Compound Start Date: 06/25/19 Status: Ordered coloplast #98246 pouch coloplast #12377 pouch, See Instructions, # 40 each, Refills 11, Tot. Refills 11, Maintenance, use as needed for ostomy care. 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 Fax to [facility]). disp 40 coloplast pouche... Start Date: 08/05/19 Status: Ordered coloplast 55979 convex 1 piece coloplast 61432 convex 1 piece, See Instructions, # 1 box, Refills 11, Tot. Refills 11, Maintenance, use for ostomy changes Dx- uc/ileostomy, 07/25/18 11:04:40 EDT, Compound Start Date: 07/25/18 Status: Ordered coloplast bags #44500 coloplast bags #10281, See Instructions, # 20 each, Refills 11, Tot. Refills 11, Maintenance, use as needed for ostomy care Dx. ileostomy Z93.2, 07/14/19 10:56:00 EDT, Compound Start Date: 07/14/19 Status: Ordered Compression Stockings See Instructions, # 4 each, Refills 1, Tot. Refills 1, Maintenance, knee high compression hose 20-30mm 4 pair dx bilateral leg edema. R60.0 pls fax to [facility], 05/12/19 14:02:00 EST, Compound Start [...] 11 Refills, Maintenance, 07/29/19 11:40:00 EDT, Tablet, [facility] [place], [place] -, 172, cm, 06/25/19 10:26:00 EST, Height, 83.7, kg, 04/04/19 0:17:00 EST, Dry Weight Start Date: 07/29/19 Stop Date: 07/23/20 Status: Ordered hydrOXYzine hydrochloride 10 mg oral tablet 2 tablet = 20 mg, By Mouth, 3 times a day, PRN for itching, # 80 tablet, 0 Refills, Maintenance, 06/25/19 11:37:00 EST, Tablet, [place], [place] -, 172, cm, 06/25/19 10:26:00 [...] 01/02/19 10:34:25 EDT, Route to Pharmacy Electronically, [id number], Kate... Start Date: 01/02/19 Stop Date: 07/01/19 Status: Ordered Januvia 50 mg oral tablet 1 tablet = 50 mg, By Mouth, Daily before breakfast, for diabetes, # 30 tablet, 11 Refills, Maintenance, 04/17/19 10:46:00 EST, Tablet, [place], [place] -, 172, cm, 04/17/19 9:42:00 EST, Height, 83.7, kg, 04/04/19 0:17:00 EST, Dry Weight Start Date: 04/17/19 Stop Date: 04/11/20 Status: Ordered LifeLine LifeLine, See Instructions, # 1 each, Refills 0, Tot. Refills 0, Maintenance, use to call for help in the home as directed length of need 99 B20, F32.9, F11.2 Pt address/#: [address] [place] [address], [address]. [phone] Critical Signal... Start Date: 01/15/18 Status: Ordered [...] Date: 09/12/18 Status: Ordered No-nsting skin prep #[id number] No-nsting skin prep #98221596, See Instructions, # 1 bottle, Refills 11, Tot. Refills 11, Maintenance, Use as needed for ostomy care Dx: colostomy, 01/31/18 11:44:14 EDT, Compound Start Date: 01/31/18 Status: Ordered omeprazole 20 mg oral enteric coated capsule 1 capsule = 20 mg, By Mouth, Daily, PRN only if needed for acid reflux symptoms, # 30 capsule, 5 Refills, Maintenance, 04/17/19 10:49:00 EST, EC Capsule, [place], [place] -, 172, cm,04/17/19 9:42:00 EST, [...] tablet, 5 Refills, Maintenance, 07/19/19 13:20:00 EDT, [facility], 172, cm, 06/25/19 10:26:00 EST, [...] 11 Refills, Maintenance, 06/16/19 12:26:00 EST, Tablet, [facility] [place], [place] -, 172, cm, 06/16/19 11:20:00 EST, [...] mg sublingual film 2.5 each, Sublingual, Daily, [id number], MassPATchecked. dissolve under tongue (ok to divide [...] 17:09:00 EDT, Route to Pharmacy Electronically, [facility], 172, cm, 06/25/19 10:26:00 EST, Height, 83.7, kg, 04/04... Start Date: 07/19/19 Status: Ordered Triumeq oral tablet 1 tablet, By Mouth, Daily, # 30 tablet, 11 Refills, Maintenance, 07/29/19 11:40:00 EDT, Tablet, [place], [place] -, 1 tablet By Mouth Daily,x30 days, 172, cm, 06/25/19 10:26:00 EST, Height, 83.7, kg, 04/04/19 0:17:00 EST, Dry Weight Start Date: 07/29/19 Stop Date: 07/23/20 Status: Ordered Unisolve adhesive remover #117644 Unisolve adhesive remover #526862, See Instructions, # 1 box, Refills 11, Tot. Refills 11, Maintenance, To remove appliance at every change Dx Ulcerative Colitis, 01/31/18 11:44:15 EDT, Compound Start Date: 01/31/18 Status: Ordered Voltaren 1% topical gel See Instructions, PRN pain R knee, apply to painful knees 1-2x/day maximum; wash hands after, # 100Gm, 3 Refills, Maintenance, 06/25/19 11:49:00 EST, Gel, [place], [place] -, apply to painful knees [...] 0 Refills, Maintenance, 06/25/19 11:36:00 EST, Tablet, [facility] [place], [place] -, 172, cm, 06/25/19 10:26:00 EST, [...] inguinal pain(Confirmed) Active 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) Active *[phone]- [facility] Part ner Jacky Sandhu(Confirmed) Active traumatic [...]
--- OUTSIDE RECORDS SUMMARY | 2022-12-18 06:37 | XMS_ITS | Continuity of Care Document ---
Author Name Unknown Organization [facility] Address [address] [place] [address]- Care Team Providers Care Quality Improvement Coordinator Name Role Phone Noemi Ruffin MD, I Primary Care Physician Encounter [place] Date(s): 07/26/20 - 09/18/[address] [address]- Attending Physician: Mark Saleem OD Admitting Physician: Mark Saleem OD Referring Physician: Noemi Ruffin MD, I Allergies, [...] VIS 10/03 4Result Comment: [12/07/2016] diluent LOT [id number] EXP 03/29/2018 5Result Comment: [07/18/2016] Liquid component: [id number], exp.: 05/2017 6Admin Note: VIS 12/13/2006 7Admin Note: vis 10/30/11 8Admin Note: vis [id number] 9Admin Note: done at [facility] this past march 10Admin Note: VIS GIVEN 2008- 11Admin Note: vis 11/25/06 Medications acetaminophen 500 mg oral tablet 1 tablet = 500 mg, By Mouth, 2 times a day, PRN for pain, take only if needed, # 60 tablet, 5 Refills, Maintenance, 04/17/19 10:49:00 EST, Tablet, [facility] [place], [place] -, 172, cm, 04/17/19 9:42:00 EST, Height, 83.7, kg, 04/04/19 0:17:00 E... Start Date: 04/17/19 Stop Date: 10/14/19 Status: Ordered albuterol CFC free 90 mcg/inh inhalation aerosol See Instructions, # 18 Gm, Refills 5 Tot. Refills 5, INHALE 2 PUFFS BY MOUTH INTO THE lungs 4 (FOUR) TIMES DAILY NEEDED FOR SHORTNESS OF BREATH OR FOR WHEEZING, [facility] [place] [place] - Start Date: 01/21/19 Status: Ordered Alcohol Pads See Instructions, # 50 each, Refills 11, Tot. Refills 11, Maintenance, E11.9 check BG daily, 12/05/18 7:49:59 EDT, Compound Start Date: 12/05/18 Status: Ordered amLODIPine 5 mg oral tablet 1 tablet, By Mouth, Daily, # 30 tablet, 11 Refills, Maintenance, 06/22/20 20:22:00 EST, [facility], 173, cm, 04/12/20 11:01:00 EST, Height, 86.8, kg, 04/07/20 8:07:00 EST, Dry Weight Start Date: 06/22/20 Status: Ordered apixaban 2.5 mg oral tablet 1 tablet = 2.5 mg, By Mouth, 2 times a day, # 60 tablet, 0 Refills, Maintenance, 07/30/20 9:38:00 EDT, Tablet, [facility], Partial fill upon patient request [...] 07/14/19 Status: Ordered Talbert Elastic barrier strips #212604 Talbert Elastic barrier strips #814339, See Instructions, # 1 units, Refills 11, Tot. Refills 11, Maintenance, To remove appliance at every change Dx Ulcerative Colitis, 01/31/18 11:44:17 EDT, Compound Start Date: 01/31/18 Status: Ordered busPIRone 5 mg oral tablet 5 mg, 1, tablet, By Mouth, 3 times a day, for anxiety, # 270 tablet, Refills 1, Tot. Refills 1, Maintenance, 04/19/20 11:34:00 EST, Route to Pharmacy Electronically, [facility] [id number], 173, cm, 04/12/20 11:01:00 EST, Heigh... Start Date: 04/19/20 Stop Date: 11/15/20 Status: Ordered carvedilol 6.25 mg oral tablet 6.25 mg, 1, tablet, By Mouth, 2 times a day, # 60 tablet, Refills 11, Tot. Refills 11, Maintenance,06/22/20 21:17:00 EST, Route to Pharmacy Electronically, [facility] [id number], 173, cm, 04/12/20 11:01:00 EST, Height, 86.8,... Start Date: 06/22/20 Stop Date: 06/17/21 Status: Ordered cetirizine 10 mg oral tablet 1 tablet = 10 mg, By Mouth, Daily, PRN if needed for allergy symptoms, do not blister pack, # 90 tablet, 1 Refills, Maintenance, 04/19/20 11:34:00 EST, Tablet, [facility] [id number], 173, cm, 04/12/20 11:01:00 EST, Height, 86.... Start Date: 04/19/20 Stop Date: 10/16/20 Status: Ordered Colace Capsule 100 mg, 1, capsule, By Mouth, 2 times a day, Hold for loose stool, Refills 0, Maintenance, 208:50:00 EST, Partial fill upon patient request if the prescription is for a schedule II opioid drug. Start Date: 04/12/20 Status: Ordered coloplast #57917 pouch coloplast #26536 pouch, See Instructions, # 20 each, Refills 11, Tot. Refills 11, Maintenance, use as needed for ostomy care. 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 Fax to [facility]), 06/25/19 12:46:00 EST, Compound Start Date: 06/25/19 Status: Ordered coloplast #68172 pouch coloplast #12285 pouch, See Instructions, # 40 each, Refills 11, Tot. Refills 11, Maintenance, use as needed for ostomy care. 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 Fax to [facility]). disp 40 coloplast pouche... Start Date: 08/05/19 Status: Ordered coloplast 68364 convex 1 piece coloplast 52581 convex 1 piece, See Instructions, # 1 box, Refills 11, Tot. Refills 11, Maintenance, use for ostomy changes Dx- uc/ileostomy, 07/25/18 11:04:40 EDT, Compound Start Date: 07/25/18 Status: Ordered coloplast bags #83532 coloplast bags #14436, See Instructions, # 20 each, Refills 11, [...] 11 Refills, Maintenance, 07/23/20 12:00:00 EDT, Tablet, [place], [place] - [id number], 173, cm, 07/19/20 10:52:00 EDT, Height, 86.8, [...] 07/18/21 12:01:00 EDT, 07/23/20 12:01:00 EDT, Tablet, [facility] [place] [place] - [id number], 173, cm, 07/19/20 10:52:00 EDT, Hei... Start Date: 07/23/20 Stop Date: 07/18/21 Status: Ordered LifeLine LifeLine, See Instructions, # 1 each, Refills 0, Tot. Refills 0, Maintenance, use to call for help in the home as directed length of need 99 B20, F32.9, F11.2 Pt address/#: [address] [place] [address], [address]. [phone] Critical Signal... Start Date: 01/15/18 Status: Ordered [...] Date: 09/12/18 Status: Ordered No-nsting skin prep #[id number] No-nsting skin prep #54357420, See Instructions, # 1 bottle, Refills 11, Tot. Refills 11, Maintenance, Use as needed for ostomy care Dx: colostomy, 01/31/18 11:44:14 EDT, Compound Start Date: 01/31/18 Status: Ordered omeprazole 20 mg oral enteric coated capsule 1 capsule = 20 mg, By Mouth, Daily, PRN only if needed for acid reflux symptoms, # 90 capsule, 1 Refills, Maintenance, 07/23/20 12:01:00 EDT, EC Capsule, [place], [place] - [id number], 173, cm, 07/19/20 10:52:00 EDT, Height, 86.8, [...] tablet, 11 Refills, Maintenance, 08/02/20 17:47:00 EDT, [facility], 172, cm, 07/30/20 16:38:00 EDT, [...] tablet, 11 Refills, Maintenance, 06/22/20 20:22:00 EST, [facility], 173, cm, 04/12/20 11:01:00 EST, [...] mg sublingual film 2 film, Sublingual, Daily, [id number] MassPATchecked. dissolve under tongue, # 56 film, 0 Refills, Maintenance, 08/27/20 9:08:00 EDT, [place], [place] - [id number], 2 film Sublingual Daily,x28 days,Instr:[id number]; MassPATchecked.... Start Date: 08/27/20 Stop Date: 09/24/20 Status: Ordered traZODone 100 mg oral tablet 1, tablet, By Mouth, Daily at bedtime, PRN, # 30 tablet, Refills 11, Tot. Refills 0, Maintenance, NEEDED FOR insomnia, 07/23/20 12:03:00 EDT, Route to Pharmacy Electronically, [facility], 173, cm, 07/19/20 10:52:00 EDT, Height, 86.8, kg, 04/07... Start Date: 07/23/20 Status: Ordered Triumeq oral tablet 1 tablet, By Mouth, Daily, # 30 tablet, 11 Refills, Maintenance, 07/23/20 12:00:00 EDT, Tablet, [facility] [place] [place] - [id number], 1 tablet By Mouth Daily,x30 days, 173, cm, 07/19/20 10:52:00 EDT, Height, 86.8, kg, 04/07/20 8:07:00 EST, D... Start Date: 07/23/20 Stop Date: 07/18/21 Status: Ordered Unisolve adhesive remover #923482 Unisolve adhesive remover #039757, See Instructions, # 1 box, Refills 11, [...] inguinal pain(Confirmed) Active 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) Active *[phone] Care Partn er-Jesica Corona(Confirmed) Active traumatic splenectomy [...]
--- OUTSIDE RECORDS SUMMARY | 2022-12-18 06:37 | XMS_ITS | Continuity of Care Document ---
Author Name Unknown Organization [facility] Address [address] [place] [address]- Care Team Providers Care Medical Cost Consultant Name Role Phone Laly FERNANDEZ, Noemi Marshall Primary Care Physician [phone] Encounter [facility] Date(s): 08/31/21 - 09/30/[address] [address]- Allergies, Adverse Reactions, Alerts Substance Reaction Severity [...] VIS 10/03 4Result Comment: [12/07/2016] diluent LOT [id number] EXP 03/29/2018 5Result Comment: [07/18/2016] Liquid component: [id number], exp.: 05/2017 6Admin Note: VIS 12/13/2006 7Admin Note: vis 10/30/11 8Admin Note: vis [id number] 9Admin Note: done at [facility] this past march 10Admin Note: VIS GIVEN 2008- 11Admin Note: vis 11/25/06 Medications acetaminophen 500 mg oral tablet 1 tablet, By Mouth, 2 times a day, PRN NEEDED FOR PAIN, TAKE ONLY IF needed, # 60 tablet, 5 Refills, Maintenance, 08/24/21 8:13:00 EDT, [facility] [employer], [place] - [id number], 167, cm, 08/08/21 11:18:00 EDT, Height, 89.9, kg, 05/25/21 10:21... Start Date: 08/24/21 Status: Ordered Albuterol (Eqv-ProAir HFA) 90 mcg/inh inhalation aerosol 2 puffs, Inhalation, 4 times a day, PRN NEEDED FOR SHORTNESS OF BREATH OR FOR WHEEZING, # 25.5 Gm, 1 Refills, Maintenance, 02/21/21 9:52:00 EDT, [facility] [id number], 2 puffs Inhalation 4 times a day,PRN: [...] 07/26/21 14:15:00 EDT, Route to Pharmacy Electronically, [facility] [id number], Partial fill upon patient request if the [...] 09/09/21 Status: Ordered Talbert Elastic barrier strips #221079 Talbert Elastic barrier strips #595195, See Instructions, # 1 units, Refills 11, Tot. Refills 11, Maintenance, To remove appliance at every change Dx Ulcerative Colitis, 01/31/18 11:44:17 EDT, Compound Start Date: 01/31/18 Status: Ordered busPIRone 5 mg oral tablet 1, tablet, By Mouth, 3 times a day, PRN, # 270 tablet, Refills 1, Tot. Refills 1, Maintenance, NEEDED FOR ANXIETY, 08/24/21 8:09:00 EDT, Route to Pharmacy Electronically, [facility] [id number], 167, cm, 08/08/21 11:18:00 ED... Start Date: 08/24/21 Status: Ordered carvedilol 12.5 mg oral tablet 1, tablet, By Mouth, 2 times a day, # 180 tablet, Refills 1, Tot. Refills 1, Maintenance, 09/21/21 9:52:00 EDT, Route to Pharmacy Electronically, [facility] [id number], 167, cm, 08/08/21 11:18:00 EDT, Height, 89.9, kg, ... Start Date: 09/21/21 Status: Ordered cetirizine 10 mg oral tablet 1 tablet, By Mouth, Daily, PRN NEEDED for allergy, # 90 tablet, 1 Refills, Maintenance, 04/21/2112:42:00 EST, [facility] [id number], 172, cm, 02/22/21 10:36:00 EDT, Height, 89.7, kg, 07/29/20 7:42:00 EDT, Dry Weight Start Date: 04/21/21 Status: Ordered coloplast #81327 pouch coloplast #63390 pouch, See Instructions, # 20 each, Refills 11, Tot. Refills 11, Maintenance, use as needed for ostomy care. 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 Fax to [facility] ([facility]), 06/25/19 12:46:00 EST, Compound Start Date: 06/25/19 Status: Ordered coloplast #46463 pouch coloplast #76377 pouch, See Instructions, # 40 each, Refills 11, Tot. Refills 11, Maintenance, use as needed for ostomy care. 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 Fax to [facility] ([facility]). disp 40 coloplast pouche... Start Date: 08/05/19 Status: Ordered coloplast 66712 convex 1 piece coloplast 46523 convex 1 piece, See Instructions, # 1 box, Refills 11, Tot. Refills 11, Maintenance, use for ostomy changes Dx- uc/ileostomy, 07/25/18 11:04:40 EDT, Compound Start Date: 07/25/18 Status: Ordered coloplast bags #41537 coloplast bags #90195, See Instructions, # 20 each, Refills 11, Tot. Refills 11, Maintenance, use as needed for ostomy care Dx. ileostomy Z93.2 fax to [facility], 09/09/21 10:48:00 EDT, Compound Start Date: 09/09/21 Status: Ordered Compression Stockings See Instructions, # 4 each, Refills 1, Tot. Refills 1, Maintenance, knee high compression hose 20-30mm 4 pair dx bilateral leg edema. R60.0 pls fax to [facility], 05/12/19 14:02:00 EST, Compound Start Date: 05/12/19 [...] a day, # 60 tablet, 11 Refills, [facility], 167, cm, 05/26/21 7:07:00 EST, [...] 11 Refills, Maintenance, 01/04/21 11:11:00 EDT, Tablet, [facility] [employer], [place] - [id number], Partial fill upon patient request if the [...] address/#: [address] [address], [address]. [phone] Critical Signal... Start Date: 01/15/18 Status: Ordered Lokelma 10 g oral powder for reconstitution = 10 Gm, By Mouth, Daily, do not take within 2 hours of other medications mix with water, # 30 each, 3 Refills, Maintenance, 09/22/21 9:46:00 EDT, [facility], [place], [place] - [id number], Partial fill upon patient request if the prescr... Start Date: 09/22/21 Stop Date: 01/20/22 Status: Ordered MiraLax oral powder for reconstitution = 17 Gm, By Mouth, Daily, daily while on suboxone. dissolve in water before taking, # 255 Gm, 5 Refills, Maintenance, 08/08/21 11:49:00 EDT, REC Powder, [place], [place] - [id number], Partial fill upon patient request if the [...] Date: 09/12/18 Status: Ordered No-nsting skin prep #[id number] No-nsting skin prep #[id number], See Instructions, # 1 bottle, Refills 11, Tot. Refills 11, Maintenance, Use as needed for ostomy care Dx: colostomy, 01/31/18 11:44:14 EDT, Compound Start Date: 01/31/18 Status: Ordered omeprazole 40 mg oral enteric coated capsule 1 capsule, By Mouth, 2 times a day, # 60 capsule, 2 Refills, Maintenance, 09/21/21 9:50:00 EDT, [place], [place] - [id number], 167, cm, 08/08/21 11:18:00 EDT, Height, 89.9, kg, 05/25/21 10:21:00 EST, Dry Weight Start Date: 09/21/21 Status: Ordered Ostomy deodorizer liquid Ostomy deodorizer [...] tablet, 1 Refills, Maintenance, 07/25/21 12:03:00 EDT, [place], [place] - [id number], 167, cm, 05/26/21 7:07:00 EST, Height, 89.9, [...] Mouth, Daily, # 45 tablet, 11 Refills, [facility], 167, cm, 05/26/21 7:07:00 EST, Height, 89.9, kg, 05/25/21 10:21:00 EST, Dry Weight Start Date: 06/22/21 Status: Ordered sitaGLIPtin 25 mg oral tablet 1 tablet = 25 mg, By Mouth, Daily, pls note the lower dose., # 30 tablet, 11 Refills, Maintenance, 08/11/21 15:34:00 EDT, Tablet, [place], [place] - [id number], Partial fill upon patient request if the [...] mg sublingual film 3 film, Sublingual, Daily, [id number] MassPATchecked. dissolve under tongue May fill on or after 09/08/2021., # 84 film, 0 Refills, Maintenance, 09/04/21 13:48:00 EDT, [place], [place]- [id number], increase in dose from 16 mg to 24... Start Date: 09/04/21 Stop Date: 10/02/21 Status: Ordered traZODone 100 mg oral tablet 1, tablet, By Mouth, Daily at bedtime, PRN, # 90 tablet, Refills 1, Tot. Refills 1, Maintenance, ASNEEDED FOR insomnia, 07/25/21 12:04:00 EDT, Route to Pharmacy Electronically, [place], [place] - [id number], 167, cm, 05/26/21 7:07:00... Start Date: 07/25/21 Status: Ordered Triumeq oral tablet 1 tablet, By Mouth, Daily, # 30 tablet, 11 Refills, [facility], 30, TAKE ONE TABLET BY MOUTH DAILY, 167, cm, 05/26/21 7:07:00 EST, Height, 89.9, kg, 05/25/21 10:21:00 EST, Dry Weight Start Date: 07/25/21 Status: Ordered Unisolve adhesive remover #274778 Unisolve adhesive remover #626109, See Instructions, # 1 box, Refills 11, [...] in obese(Confirmed) Active Obese class I(Confirmed) Active *[phone] Care Partn er-Jesica Jeter(Confirmed) Active traumatic splenectomy [...]
--- OUTSIDE RECORDS SUMMARY | 2022-12-18 06:37 | XMS_ITS | Continuity of Care Document ---
Author Name Unknown Organization [facility] Address [address] [place] [address]- Care Team Providers Care Floral Clerk Name Role Phone Noemi Ruffin MD, I Primary Care Physician [phone] Encounter [facility] Date(s): 12/07/20 - 01/06/[address] [address]- Allergies, Adverse Reactions, Alerts Substance Reaction Severity [...] VIS 10/03 4Result Comment: [12/07/2016] diluent LOT [id number] EXP 03/29/2018 5Result Comment: [07/18/2016] Liquid component: [id number], exp.: 05/2017 6Admin Note: VIS 12/13/2006 7Admin Note: vis 10/30/11 8Admin Note: vis 1046-1945 9Admin Note: done at [facility] this past march 10Admin Note: VIS GIVEN 2008- 11Admin Note: vis 11/25/06 Medications acetaminophen 500 mg oral tablet 1 tablet = 500 mg, By Mouth, 2 times a day, PRN for pain, take only if needed, # 60 tablet, 5 Refills, Maintenance, 04/17/19 10:49:00 EST, Tablet, [facility] [place], [place] -, 172, cm, 04/17/19 9:42:00 EST, Height, 83.7, kg, 04/04/19 0:17:00 E... Start Date: 04/17/19 Stop Date: 10/14/19 Status: Ordered albuterol CFC free 90 mcg/inh inhalation aerosol 2, puffs, Inhalation, 4 times a day, PRN, # 1 each, Refills 1, Tot. Refills 1, Soft Stop, 12/07/20 11:08:00 EDT, Route to Pharmacy Electronically, [id number], [place], [place] - [id number], 172, cm, 12/07/20... Start Date: 12/07/20 Stop [...] 5 Refills, Maintenance, 11/05/20 12:56:00 EDT, Tablet, [place], [place] - [id number], Partial fill uponpatient request if the prescription is for a schedu... Start Date: 11/05/20 Status: Ordered apixaban 2.5 mg oral tablet 1 tablet = 2.5 mg, By Mouth, 2 times a day, # 60 tablet, 0 Refills, Maintenance, 07/30/20 9:38:00 EDT, Tablet, [facility], Partial fill upon patient request [...] 07/14/19 Status: Ordered Talbert Elastic barrier strips #654252 Talbert Elastic barrier strips #879236, See Instructions, # 1 units, Refills 11, Tot. Refills 11, Maintenance, To remove appliance at every change Dx Ulcerative Colitis, 01/31/18 11:44:17 EDT, Compound Start Date: 01/31/18 Status: Ordered busPIRone 5 mg oral tablet 1, tablet, By Mouth, 3 times a day, FOR ANXIETY., # 270 tablet, Refills 1, Tot. Refills 0, Maintenance, 10/26/20 10:29:00 EDT, Route to Pharmacy Electronically, [facility], 172, cm, 07/30/20 16:38:00 EDT, Height, 89.7, kg, 07/29/20 7:42:00 EDT, D... Start Date: 10/26/20 Status: Ordered carvedilol 12.5 mg oral tablet 12.5 mg, 1, tablet, By Mouth, 2 times a day, increase in dose, # 60 tablet, Refills 11, Tot. Refills 11, Maintenance, 10/12/20 11:48:00 EDT, Route to Pharmacy Electronically, [facility] [place], [place] - [id number], Partial fill upon patient re... Start Date: [...] drug. Start Date: 04/12/20 Status: Ordered coloplast #80909 pouch coloplast #83872 pouch, See Instructions, # 20 each, Refills 11, Tot. Refills 11, Maintenance, use as needed for ostomy care. 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 Fax to [facility]), 06/25/19 12:46:00 EST, Compound Start Date: 06/25/19 Status: Ordered coloplast #06406 pouch coloplast #95636 pouch, See Instructions, # 40 each, Refills 11, Tot. Refills 11, Maintenance, use as needed for ostomy care. 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 Fax to Andre ([facility]). disp 40 coloplast pouche... Start Date: 08/05/19 Status: Ordered coloplast 60907 convex 1 piece coloplast 10914 convex 1 piece, See Instructions, # 1 box, Refills 11, Tot. Refills 11, Maintenance, use for ostomy changes Dx- uc/ileostomy, 07/25/18 11:04:40 EDT, Compound Start Date: 07/25/18 Status: Ordered coloplast bags #68878 coloplast bags #27212, See Instructions, # 20 each, Refills 11, Tot. Refills 11, Maintenance, use as needed for ostomy care Dx. ileostomy Z93.2, 07/14/19 10:56:00 EDT, Compound Start Date: 07/14/19 Status: Ordered Compression Stockings See Instructions, # 4 each, Refills 1, Tot. Refills 1, Maintenance, knee high compression hose 20-30mm 4 pair dx bilateral leg edema. R60.0 pls fax to [facility], 05/12/19 14:02:00 EST, Compound Start Date: 05/12/19 [...] Maintenance, 07/23/20 12:00:00 EDT, Tablet, [facility] [id number], 173, cm, 07/19/20 10:52:00 EDT, Height, 86.8, kg, 04/07/20 8:07:00 EST, Dry Weight Start Date: 07/23/20 Stop Date: 07/18/21 Status: Ordered hydrochlorothiazide 12.5 mg oral tablet 1 tablet = 12.5 mg, By Mouth, Daily, # 30 tablet, 11 Refills, Maintenance, 01/04/21 11:11:00 EDT, Tablet, [facility] [id number], Partial fill upon patient request if the [...] 07/18/21 12:01:00 EDT, 07/23/20 12:01:00 EDT, Tablet, [facility] [id number], 173, cm, 07/19/20 10:52:00 EDT, Hei... Start Date: 07/23/20 Stop Date: 07/18/21 Status: Ordered LifeLine LifeLine, See Instructions, # 1 each, Refills 0, Tot. Refills 0, Maintenance, use to call for help in the home as directed length of need 99 B20, F32.9, F11.2 Pt address/#: [address] [address], [address]. [phone] Critical Signal... Start Date: 01/15/18 Status: Ordered [...] Date: 09/12/18 Status: Ordered No-nsting skin prep #[id number] No-nsting skin prep #50552492, See Instructions, # 1 bottle, Refills 11, Tot. Refills 11, Maintenance, Use as needed for ostomy care Dx: colostomy, 01/31/18 11:44:14 EDT, Compound Start Date: 01/31/18 Status: Ordered omeprazole 20 mg oral enteric coated capsule 1 capsule = 20 mg, By Mouth, Daily, PRN only if needed for acid reflux symptoms, # 90 capsule, 1 Refills, Maintenance, 07/23/20 12:01:00 EDT, EC Capsule, [facility] [place], [place] - [id number], 173, cm, 07/19/20 10:52:00 EDT, Height, 86.8, [...] tablet, 11 Refills, Maintenance, 08/02/20 17:47:00 EDT, [facility], 172, cm, 07/30/20 16:38:00 EDT, Height, [...] tablet, 11 Refills, Maintenance, 06/22/20 20:22:00 EST, [facility], 173, cm, 04/12/20 11:01:00 EST, Height, [...] mg sublingual film 2 film, Sublingual, Daily, [id number] MassPATchecked. dissolve under tongue, # 56 film, 0 Refills, Maintenance, 12/08/20 23:01:00 EDT, [place], [place] - [id number], fill on 12/13/20-due date, 2 film Sublingual Daily,x28 days,Instr:X... Start Date: 12/08/20 Stop Date: 01/05/21 Status: Ordered traZODone 100 mg oral tablet 1, tablet, By Mouth, Daily at bedtime, PRN, # 30 tablet, Refills 11, Tot. Refills 0, Maintenance, NEEDED FOR insomnia, 07/23/20 12:03:00 EDT, Route to Pharmacy Electronically, [facility], 173, cm, 07/19/20 10:52:00 EDT, Height, 86.8, kg, 04/07... Start Date: 07/23/20 Status: Ordered Triumeq oral tablet 1 tablet, By Mouth, Daily, # 30 tablet, 11 Refills, Maintenance, 07/23/20 12:00:00 EDT, Tablet, [facility], [place] - [id number], 1 tablet By Mouth Daily,x30 days, 173, cm, 07/19/20 10:52:00 EDT, Height, 86.8, kg, 04/07/20 8:07:00 Evan MCGOVERN. Start Date: 07/23/20 Stop Date: 07/18/21 Status: Ordered Unisolve adhesive remover #045960 Unisolve adhesive remover #743320, See Instructions, # 1 box, Refills 11, [...] inguinal pain(Confirmed) Active 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) Active *[phone] Care Partn krysten-Jesica Jeter(Confirmed) Active traumatic splenectomy [...]
--- OUTSIDE RECORDS SUMMARY | 2022-12-18 06:37 | XMS_ITS | Continuity of Care Document ---
Author Name Unknown Organization [facility] Address [address] [place] [address]- Care Team Providers Care End Frazer Name Role Phone Laly FERNANDEZ, Noemi Marshall Primary Care Physician [facility]counter [facility] Date(s): 06/06/22 - 07/06/[address] [address]- Allergies, Adverse Reactions, Alerts Substance Reaction Severity Status ampicillin Active aspirin BLEEDING Persistent Severe Active NSAIDs bleeding Persistent Severe Active Pollen NASAL CONGESTION SNEEZING Persistent Mode rate Active Immunizations Given and Recorded Vaccine Date Status Refusal Reason [id number] 12y+ bivalent booster vax 02/02/22 Recorded SARS-CoV-2 [...] VIS 10/03 4Result Comment: [12/07/2016] diluent LOT [id number] EXP 03/29/2018 5Result Comment: [07/18/2016] Liquid component: [id number], exp.: 05/2017 6Admin Note: VIS 12/13/2006 7Admin Note: vis 10/30/11 8Admin Note: vis [id number] 9Admin Note: done at [facility] 10Admin Note: VIS GIVEN 2008- 11Admin Note: vis 11/25/06 Medications acetaminophen 500 mg oral tablet 1 tablet, By Mouth, 4 times a day, PRN NEEDED FOR PAIN, TAKE ONLY IF needed, # 100 tablet, 5 Refills, Maintenance, 04/14/22 15:58:00 EST, [place], [place] - [id number], 167, cm, 04/10/22 11:48:00 EST, Height, 89.9, kg, 05/25/21 10:... Start Date: 04/14/22 Status: Ordered Albuterol (Eqv-ProAir HFA) 90 mcg/inh inhalation aerosol 2 puffs, Inhalation, 4 times a day, PRN NEEDED FOR SHORTNESS OF BREATH OR FOR WHEEZING, # 25.5 Gm, 5 Refills, [facility], 4, INHALE 2 PUFFS [...] 5 Refills, Maintenance, 06/26/22 22:22:00 EST, [facility], 167, cm, 04/10/22 11:48:00 EST, [...] 09/09/21 Status: Ordered Talbert Elastic barrier strips #[id number] Talbert Elastic barrier strips #[id number], See Instructions, # 120 each, Refills 11, [...] 01/26/22 18:01:00 EDT, Route to Pharmacy Electronically, [facility] [place], [place] - [id number], 167, cm, 08/08/21 11:18:00 E... Start Date: 01/26/22 Stop Date: 07/25/22 Status: Ordered carvedilol 12.5 mg oral tablet 1, tablet, By Mouth, 2 times a day, # 180 tablet, Refills 1, Maintenance, 06/26/22 22:23:00 EST, Route to Pharmacy Electronically, [facility], 167, cm, 04/10/22 11:48:00 EST, Height, 89.9, kg, 05/25/21 10:21:00 EST, Dry Weight Start Date: 06/26/22 Status: Ordered cetirizine 10 mg oral tablet 1 tablet, By Mouth, Daily, PRN NEEDED FOR FOR ALLERGY, # 90 tablet, 1 Refills, 02/23/22 14:13:00EDT, [facility] [place], [place] - [id number], 167, cm, 08/08/21 11:18:00 EDT, Height, 89.9, kg, 05/25/21 10:21:00 EST, Dry Weight Start Date: 02/23/22 Status: Ordered coloplast #64299 pouch coloplast #21319 pouch, See Instructions, # 20 each, Refills 11, Tot. Refills 11, Maintenance, use as needed for ostomy care. 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 Fax to Andre ([facility]), 06/25/19 12:46:00 EST, Compound Start Date: 06/25/19 Status: Ordered coloplast #06928 pouch coloplast #29346 pouch, See Instructions, # 40 each, Refills 11, Tot. Refills 11, Maintenance, use as needed for ostomy care. 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 Fax to Andre ([facility]). disp 40 coloplast pouche... Start Date: 08/05/19 Status: Ordered coloplast 26680 convex 1 piece coloplast 41704 convex 1 piece, See Instructions, # 1 box, Refills 11, Tot. Refills 11, Maintenance, use for ostomy changes Dx- uc/ileostomy, 07/25/18 11:04:40 EDT, Compound Start Date: 07/25/18 Status: Ordered coloplast bags #28717 coloplast bags #32928, See Instructions, # 20 each, Refills 11, Tot. Refills 11, Maintenance, use as needed for ostomy care Dx. ileostomy Z93.2 fax to [facility], 09/09/21 10:48:00 EDT, Compound Start Date: 09/09/21 Status: Ordered Compression Stockings See Instructions, # 4 each, Refills 1, Tot. Refills 1, Maintenance, knee high compression hose 20-30mm 4 pair dx bilateral leg edema. R60.0 pls fax to [facility], 05/12/19 14:02:00 EST, Compound Start [...] Gm, 5 Refills, Maintenance, 06/27/22 16:38:00 EST, [facility], 30, APPLY TO PAINFUL KNEES 1 TO 2 TIMES A DAY maximum. WASH HANDS AFTER USE, 167, cm,... Start Date: 06/27/22 Status: Ordered Dovato 50 mg-300 mg oral tablet 1 tablet, By Mouth, Daily, *pharmacy: please change triumeq to dovato with the next monthly medication delivery., # 30 tablet, 11 Refills, Maintenance, 04/21/22 14:15:00 EST, Tablet, [facility] - [place], [place] - [id number], Partial fill upon pa... Start Date: 04/21/22 [...] tablet, 2 Refills, Maintenance, 05/27/22 4:01:00 EST, [facility], 167, cm, 04/10/22 11:48:00 [...] need 99 B20, F32.9, F11.2 Pt address/#: [address] [place] [address], [address]. [phone] Critical Signal... Start Date: 01/15/18 Status: Ordered Lokelma 10 g oral powder for reconstitution See Instructions, DISSOLVE THE CONTENT OF 1 PACKET IN WATER AND DRINK ONCE DAILY. DO NOT TAKE WITHIN 2 HOURS OF other MEDICATIONS, # 30 pack/packet, 5 Refills, Maintenance, 04/25/22 16:05:00 EST, [facility], 167, cm, 04/10/22 11:48:00 [...] Date: 09/12/18 Status: Ordered No-nsting skin prep #[id number] No-nsting skin prep #[id number], See Instructions, # 1 bottle, Refills 11, Tot. Refills 11, Maintenance, Use as needed for ostomy care Dx: colostomy, 01/31/18 11:44:14 EDT, Compound Start Date: 01/31/18 Status: Ordered omeprazole 40 mg oral enteric coated capsule 1 capsule, By Mouth, 2 times a day, # 60 capsule, 1 Refills, Maintenance, 05/27/22 4:01:00 EST, [facility], 167, cm, 04/10/22 11:48:00 [...] tablet, 1 Refills, Maintenance, 06/26/22 22:24:00 EST, [facility], 167, cm, 04/10/22 11:48:00 [...] tablet, 11 Refills, Maintenance, 05/29/22 18:56:00 EST, [facility], 167, cm, 04/10/22 11:48:00 EST, Height, 89.9, kg, 05/25/21 10:21:00 EST, Dry Weight Start Date: 05/29/22 Status: Ordered sitaGLIPtin 25 mg oral tablet 1 tablet = 25 mg, By Mouth, Daily, pls note the lower dose., # 30 tablet, 11 Refills, Maintenance, 08/11/21 15:34:00 EDT, Tablet, [facility] - [place], [place] - [phone], Partial fill upon patient request if the [...] sublingual film 3 film, Sublingual, Daily, Laly [id number] MassPATchecked. dissolve under tongue, # 84 film, 0 Refills, Maintenance, 06/15/22 16:49:00 EST, [facility] [place], [place] - [id number], increasein dose from 16 mg to 24 mg daily, 3 film Sublin... Start Date: 06/15/22 Stop Date: 07/13/22 Status: Ordered traZODone 100 mg oral tablet 1, tablet, By Mouth, Daily at bedtime, PRN, # 90 tablet, Refills 1, Maintenance, NEEDED FOR insomnia, 06/27/22 16:38:00 EST, Route to Pharmacy Electronically, [facility], 167, cm, 04/10/22 11:48:00 EST, Height, 89.9, kg, 05/25/21 10:21:00 EST,... Start Date: 06/27/22 Status: Ordered Unisolve adhesive remover #162130 Unisolve adhesive remover #986330, See Instructions, # 1 box, Refills 11, [...] Confirmed Active Obese class II Confirmed Active *[id number] Asbestos Remover Nitin Hancock Confirmed Active SLAC (scapholunate advanced [...] Member Role: Primary Care Nurse Address: Address: [address] [place] [address]- Name: Arianne George RN Position: [facility] RN Member Role: Primary Care Nurse Name: Radha Ewing RN Position: [facility] RN Member Role: Primary Care Nurse Name: Macey Trevino RN [facility] RN Member Role: Primary Care Nurse Name: Nesha Leigh RN Position: [facility] SN RN Member Role: Primary Care Nurse Name: lAanna Ashby RN Position: [facility] RN Member Role: Primary Care Nurse Name: Loren Jimenez RN Position: [facility] RN Member Role: Primary Care Nurse Name: Starr Poon RN Position: [facility] SN RN Member Role: Primary Care Nurse Name: Vilma Perez RN Position: [facility] MR W/ Merge Member Role: Primary Care Nurse Name: John Noguera RN Position: [facility] RN Member Role: Primary Care Nurse Name: Noemi Ruffin MD, I Position: [facility] Primary Care Physician Member Role: PCP Address: Address: [address] [place] [address]- [place] Name: Dunia Arechiga RN Position: [facility] RN Member Role: Primary Care Nurse Name: Kamilah Baron Position: [facility] PCO TA Member Role: Primary Care Nurse Name: Ro Lopez RN Position: [facility] RN Member Role: Primary Care Nurse Name: Kosta Braun III, RN Position: [facility] RN Member Role: Primary Care Nurse Name: Lauryn Jiménez RN Position: [facility] Hospital Playback Operator Member Role: Primary Care Nurse Name: Jorge Ching RN Position: [facility] RN Member Role: Primary Care Nurse Name: Valarie Srivastava RN Position: [facility] RN Member Role: Primary Care Nurse Name: Monica Jaocbs RN Position: [facility] RN Member Role: Primary Care Nurse Name: Johanna Castaneda RN Position: [facility] RN Member Role: Primary Care Nurse Address: Address: [address] [place] [address] Name: Luisa Zavaleta RN Position: [facility] AMB Nurse Member Role: Primary Care Nurse Name: Yulissa Mora RN Position: [facility] SN RN Member Role: Primary Care Nurse Name: Francine Abrams RN Position: [facility] RN Member Role: Primary Care Nurse Name: Shea Marinelli RN Position: [facility] RN Member Role: Primary Care Nurse Care Team Related Persons Name: PEGGY GARDNER Address: home [address] [place] [address] Name: JLUIS WHITE STAGE NAME Name: ADIA WINTERS
--- OUTSIDE RECORDS SUMMARY | 2022-12-18 06:37 | XMS_ITS | Continuity of Care Document ---
Author Name Unknown Organization [facility] Address [address] [place] [address]- Care Team Providers Care Cellophane Bag Machine Operator Name Role Phone Noemi Ruffin MD, I Primary Care Physician [facility]counter [facility] Date(s): 05/10/21 - 06/16/[address] [address]- Attending Physician: Not on Staff, Attending MD Referring Physician: Noemi Ruffin MD, I [...] VIS 10/03 4Result Comment: [12/07/2016] diluent LOT [id number] EXP 03/29/2018 5Result Comment: [07/18/2016] Liquid component: [id number], exp.: 05/2017 6Admin Note: VIS 12/13/2006 7Admin Note: vis 10/30/11 8Admin Note: vis [id number] 9Admin Note: done at [facility] this past march 10Admin Note: VIS GIVEN 2008- 11Admin Note: vis 11/25/06 Medications acetaminophen 500 mg oral tablet 1 tablet, By Mouth, 2 times a day, PRN NEEDED FOR PAIN, TAKE ONLY IF needed, # 60 tablet, 5 Refills, [facility], 172, cm, 01/18/21 12:02:00 EDT, Height, 89.7, kg, 07/29/20 7:42:00 EDT, Dry Weight Start Date: 01/27/21 Status: Ordered Albuterol (Eqv-ProAir HFA) 90 mcg/inh inhalation aerosol 2 puffs, Inhalation, 4 times a day, PRN NEEDED FOR SHORTNESS OF BREATH OR FOR WHEEZING, # 25.5 Gm, 1 Refills, Maintenance, 02/21/21 9:52:00 EDT, [facility] [id number], 2 puffs Inhalation 4 times a day,PRN: [...] 2 Refills, Maintenance, 04/21/21 12:39:00 EST, Tablet, [place], [place] - [id number], Partial fill uponpatient request if the prescription is for a schedu... Start Date: 04/21/21 Status: Ordered apixaban 2.5 mg oral tablet 1 tablet = 2.5 mg, By Mouth, 2 times a day, # 60 tablet, 0 Refills, Maintenance, 05/26/21 9:34:00 EST, Tablet, [facility], Partial fill upon patient request [...] 07/14/19 Status: Ordered Talbert Elastic barrier strips #554316 Talbert Elastic barrier strips #591104, See Instructions, # 1 units, Refills 11, Tot. Refills 11, Maintenance, To remove appliance at every change Dx Ulcerative Colitis, 01/31/18 11:44:17 EDT, Compound Start Date: 01/31/18 Status: Ordered busPIRone 5 mg oral tablet 1, tablet, By Mouth, 3 times a day, FOR ANXIETY., # 90 tablet, Refills 1, Route to Pharmacy Electronically, [facility], 172, cm, 02/22/21 10:36:00 EDT, Height, 89.7, kg, 07/29/20 7:42:00 EDT, Dry Weight Start Date: 04/21/21 Status: Ordered carvedilol 12.5 mg oral tablet 12.5 mg, 1, tablet, By Mouth, 2 times a day, increase in dose, # 60 tablet, Refills 11, Tot. Refills 11, Maintenance, 10/12/20 11:48:00 EDT, Route to Pharmacy Electronically, [facility] [id number], Partial fill upon patient re... Start Date: 10/12/20 Stop Date: 10/07/21 Status: Ordered cetirizine 10 mg oral tablet 1 tablet, By Mouth, Daily, PRN NEEDED for allergy, # 90 tablet, 1 Refills, Maintenance, 04/21/2112:42:00 EST, [facility], [facility] [id number], 172, cm, 02/22/21 10:36:00 EDT, Height, 89.7, kg, 07/29/20 7:42:00 EDT, Dry Weight Start Date: 04/21/21 Status: Ordered coloplast #32805 pouch coloplast #02679 pouch, See Instructions, # 20 each, Refills 11, Tot. Refills 11, Maintenance, use as needed for ostomy care. 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 Fax to Andre ([facility]), 06/25/19 12:46:00 EST, Compound Start Date: 06/25/19 Status: Ordered coloplast #73028 pouch coloplast #80869 pouch, See Instructions, # 40 each, Refills 11, Tot. Refills 11, Maintenance, use as needed for ostomy care. 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 Fax to Andre ([facility]). disp 40 coloplast pouche... Start Date: 08/05/19 Status: Ordered coloplast 41875 convex 1 piece coloplast 77540 convex 1 piece, See Instructions, # 1 box, Refills 11, Tot. Refills 11, Maintenance, use for ostomy changes Dx- uc/ileostomy, 07/25/18 11:04:40 EDT, Compound Start Date: 07/25/18 Status: Ordered coloplast bags #52678 coloplast bags #39074, See Instructions, # 20 each, Refills 11, [...] 11 Refills, Maintenance, 07/23/20 12:00:00 EDT, Tablet, [facility] [id number], 173, cm, 07/19/20 10:52:00 EDT, Height, 86.8, kg, 04/07/20 8:07:00 EST, Dry Weight Start Date: 07/23/20 Stop Date: 07/18/21 Status: Ordered hydrochlorothiazide 12.5 mg oral tablet 1 tablet = 12.5 mg, By Mouth, Daily, # 30 tablet, 11 Refills, Maintenance, 01/04/21 11:11:00 EDT, Tablet, [facility] [id number], Partial fill upon patient request if the [...] 07/18/21 12:01:00 EDT, 07/23/20 12:01:00 EDT, Tablet, [facility] [id number], 173, cm, 07/19/20 10:52:00 EDT, Hei... Start Date: 07/23/20 Stop Date: 07/18/21 Status: Ordered LifeLine LifeLine, See Instructions, # 1 each, Refills 0, Tot. Refills 0, Maintenance, use to call for help in the home as directed length of need 99 B20, F32.9, F11.2 Pt address/#: [address] [place] [address], [address]. [phone] Critical Signal... Start Date: 01/15/18 Status: Ordered [...] Date: 09/12/18 Status: Ordered No-nsting skin prep #[id number] No-nsting skin prep #10931922, See Instructions, # 1 bottle, Refills 11, Tot. Refills 11, Maintenance, Use as needed for ostomy care Dx: colostomy, 01/31/18 11:44:14 EDT, Compound Start Date: 01/31/18 Status: Ordered omeprazole 20 mg oral enteric coated capsule 1 capsule = 20 mg, By Mouth, Daily, PRN only if needed for acid reflux symptoms, # 90 capsule, 0 Refills, Maintenance, 01/21/21 6:58:00 EDT, EC Capsule, [facility], 172, cm, 01/18/21 12:02:00 [...] mg sublingual film 3 film, Sublingual, Daily, [id number] MassPATchecked. dissolve under tongue, # 84 film, 0 Refills, Maintenance, 06/13/21 22:21:00 EST, [facility], [place] - [id number], increase in dose from 16 mg to 24 mg daily, 3 film Sublingual Jennifer... Start Date: 06/13/21 Stop Date: 07/11/21 Status: Ordered traZODone 100 mg oral tablet 1, tablet, By Mouth, Daily at bedtime, PRN, # 30 tablet, Refills 11, Tot. Refills 0, Maintenance, NEEDED FOR insomnia, 07/23/20 12:03:00 EDT, Route to Pharmacy Electronically, [facility], 173, cm, 07/19/20 10:52:00 EDT, Height, 86.8, kg, 04/07... Start Date: 07/23/20 Status: Ordered Triumeq oral tablet 1 tablet, By Mouth, Daily, # 30 tablet, 11 Refills, Maintenance, 07/23/20 12:00:00 EDT, Tablet, [facility], [place] - [id number], 1 tablet By Mouth Daily,x30 days, 173, cm, 07/19/20 10:52:00 EDT, Height, 86.8, kg, 04/07/20 8:07:00 EST, D... 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
--- NOTE | 2022-12-18 06:41 | ED.GENADULT ---
HPI - General Adult General Chief complaint: Nausea/Vomiting/Diarrhea Stated complaint: Nausea/Vomitting Time Seen by Provider: 12/18/22 06:37 Source: patient Mode of arrival: ambulatory Limitations: no limitations History of Present Illness HPI narrative: A 72-year-old male history of diabetes, hypertension, HIV , pancreatitis presenting to the emergency department via ambulance for complaints of epigastric/ left upper quadrant pain that started suddenly this morning, patient reports abdominal pain is associated nausea and vomiting. Unable to tell me what makes anything better or worse. Patient tells me he is very uncomfortable. Reports he was a former drinker however no current history of Alcohol abuse. patient does have a history of pancreatitis . patient denies sick contacts. Denies fevers, chills, chest pain, shortness of breath, headache, vision changes, melena, hematochezia, headache, vision changes, dizziness Related Data Home Medications Medication Instructions Recorded Confirmed albuterol sulfate 90 mcg/actuation 2 puff inhalation QID PRN 06/06/21 12/18/22 aerosol inhaler Respiratory Distress buprenorphine 8 mg-naloxone 2 mg 1 film sublingual TID 06/06/21 12/18/22 sublingual film buspirone 5 mg tablet 5 mg PO TID 06/06/21 12/18/22 carvedilol 12.5 mg tablet 12.5 mg PO BID 06/06/21 12/18/22 cetirizine 10 mg tablet 10 mg PO DAILY PRN Allergic 06/06/21 12/18/22 Symptoms gabapentin 600 mg tablet 600 mg PO BID 06/06/21 12/18/22 hydrochlorothiazide 12.5 mg tablet 12.5 mg PO DAILY 06/06/21 12/18/22 pravastatin 40 mg tablet 40 mg PO BEDTIME 06/06/21 12/18/22 sertraline 50 mg tablet 75 mg PO DAILY 06/06/21 12/18/22 trazodone 100 mg tablet 100 mg PO BEDTIME PRN Sleep 06/06/21 12/18/22 amlodipine 5 mg tablet 5 mg PO DAILY 12/18/22 12/18/22 dolutegravir 50 mg-lamivudine 300 1 tab PO DAILY 12/18/22 12/18/22 mg tablet (Dovato) dulaglutide 0.75 mg/0.5 mL 0.75 mg subcut MO 12/18/22 12/18/22 subcutaneous pen injector (Trulicity) empagliflozin 10 mg tablet 10 mg PO DAILY 12/18/22 12/18/22 (Jardiance) loperamide 2 mg tablet 2 mg PO Q6H PRN Diarrhea 12/18/22 12/18/22 (Anti-Diarrheal (loperamide)) Previous Rx's Medication Instructions Recorded omeprazole 40 mg capsule,delayed 40 mg PO BID 30 days #60 caps 06/10/21 release Allergies Allergy/AdvReac Type Severity Reaction Status Date / Time ampicillin [AMPICILLIN] Allergy Mild HIVES Verified 06/07/21 12:29 aspirin [ASPIRIN] Allergy Unknown RASH Verified 06/07/21 12:29 Review of Systems Review of Systems: Constitutional : No Weight loss, No Fever, No Chills, No Fatigue, No Malaise ENT/Mouth : No sore throat, No Rhinorrhea Eyes: No Eye Pain, No Swelling, No Redness Cardiovascular : No Chest Pain, No SOB, No Dyspnea on Exertion, No Orthopnea, No Edema, No Palpitations Respiratory : No Cough, No Sputum, No Wheezing Gastrointestinal : + Nausea, + Vomiting, No Diarrhea, No Constipation, + abdominal Pain, No Hematochezia, No Melena Genitourinary : No Dysuria, No Urinary Frequency, No Hematuria, Musculoskeletal : No joint pain, No Myalgias, No Joint Swelling Skin : No Skin Lesions, No rash Neuro : No Weakness, No Numbness, No Dizziness, No Headache Psych : No Anxiety/Panic, No Depression All other systems reviewed and are negative Yes all other systems are reviewed and are negative [facility] Past Medical History Attestation statement: The following information was validated with the patient. Source: old records reviewed and nursing notes reviewed Medical History Chronic hepatitis Chronic use of nonprescription opiate drugs CKD (chronic kidney disease) Diabetes mellitus HIV (human immunodeficiency virus infection) HTN (hypertension), benign Hyperlipemia Pancreatitis Ulcerative colitis Surgical History H/O colectomy History of total left knee replacement (TKR) Hx of cholecystectomy Hx of splenectomy Status post right hip replacement Social History Social History Household Members: None Alcohol intake: never Patient Tobacco Use Status: Former Tobacco user Tobacco use type: Cigarette Smoked in Last 30 Days: No Use of substances other than those prescribed or required for medical reasons: No Advance Directives: Yes Advance Directives on File: Yes Advance Directives Date on File: 06/07/21 service: No Current occupational status: disabled Physical Exam ED Vital Signs: Vital Signs - 24 hr 12/18/22 06:14 12/18/22 07:29 12/18/22 09:03 Temperature 98.4 F 98.2 F Pulse Rate 57 59 65 Respiratory Rate 14 15 14 Blood Pressure 201/88 H 192/87 H 178/68 H Pulse Oximetry 97 98 97 Oxygen Delivery Method Room Air Room Air Room Air Oxygen Flow Rate 12/18/22 10:51 12/18/22 11:41 Temperature 100 F Pulse Rate 75 79 Respiratory Rate 17 17 Blood Pressure 184/79 H 150/73 H Pulse Oximetry 97 95 Oxygen Delivery Method Nasal Cannula Nasal Cannula Oxygen Flow Rate 2 2 BMI result Body Mass Index 33.4 hypertensive however currently actively vomiting likely reason for hypertension Appearance: Alert.? Oriented X3.? No acute distress.? Head: Normocephalic, atraumatic, no step-offs or deformities Eyes: Pupils equal, round and reactive to light.? Neck: Normal inspection.? Neck supple.? CVS: Normal heart rate and rhythm.? Pulses normal.? Respiratory: No respiratory distress.? Breath sounds normal.? Abdomen: Soft and epigastric and LUQ ttp .? Skin: Skin warm and dry.? Normal skin color.? Normal skin turgor.? Extremities: No lower extremity edema.? No calf ttp. 5/5 strength to bilateral upper and lower extremities Neuro: Oriented X 3.? No motor deficit.? No sensory deficit. CN 2-12 intact Course Reevaluation(s) Reevaluation #1: CBC with leukocytosis 18.6 likely reactive secondary to nausea and vomiting, unlikely from infection, no left shift. Chemistry with acute on chronic kidney injury, fluids have been ordered, I suspect this is likely secondary to GI losses from nausea and vomiting. Patient's calcium also slightly elevated 10.4. CT abdomen pelvis with proximal small-bowel obstruction, postsurgical changes following colectomy and right lower quadrant ileostomy. Small nonobstructing left renal stone. NGT ordered and surgical consult to Dr. Bill placed. Time: 09:55 Reevaluation #2: Dr. Vo will come evaluate patient. Time: 09:56 Medications Administered Generic Name Dose Route Start Last Admin Trade Name Freq PRN Reason Stop Dose Admin Enoxaparin Sodium 30 mg 12/18/22 11:00 12/18/22 11:42 Enoxaparin Sodium 30 Mg/0.3 Ml Syringe SUBCUT 30 mg Q24H RASHAD Administration Lactated Ringer's 1,000 mls @ 100 mls/hr 12/18/22 10:30 12/18/22 11:15 Lr IVCONT 100 mls/hr .Q10H RASHAD Administration Acetaminophen 1,000 mg in 100 mls @ 400 mls/hr 12/18/22 10:30 12/18/22 11:15 Ofirmev IV 12/19/22 04:44 Infused Q6H RASHAD Infusion Discontinued Medications Generic Name Dose Route Start Last Admin Trade Name Freq PRN Reason Stop Dose Admin Diphenhydramine HCl 25 mg 12/18/22 07:35 12/18/22 07:49 Diphenhydramine Hcl 50 Mg/Ml Vial IVPUSH 12/18/22 07:36 25 mg ONCE ONE Administration Fentanyl 50 mcg 12/18/22 08:33 12/18/22 09:01 Fentanyl Citrate/Pf 100 Mcg/2 Ml Vial IVPUSH 12/18/22 08:34 50 mcg ONCE ONE Administration Protocol Sodium Chloride 1,000 mls @ 999 mls/hr 12/18/22 05:55 12/18/22 08:23 Ns IV 12/18/22 06:55 Infused .Q1H1M ONE Infusion Sodium Chloride 1,000 mls @ 999 mls/hr 12/18/22 09:15 12/18/22 11:15 Ns IV 12/18/22 10:15 Infused .Q1H1M RASHAD Infusion Lidocaine HCl 1 appl 12/18/22 10:38 12/18/22 11:42 Lidocaine Hcl 4 % Mpf W/Madgic 5 Ml Ampul TOPICAL 12/18/22 10:39 1 appl ONCE ONE Administration Protocol Metoclopramide HCl 10 mg 12/18/22 07:35 12/18/22 07:49 Metoclopramide Hcl 10 Mg/2 Ml Vial IVPUSH 12/18/22 07:36 10 mg ONCE ONE Administration Morphine Sulfate 4 mg 12/18/22 07:20 12/18/22 07:26 Morphine Sulfate 4 Mg/Ml Cartridge IVPUSH 12/18/22 07:21 4 mg ONCE ONE Administration Protocol Ondansetron HCl 4 mg 12/18/22 05:55 12/18/22 06:11 Ondansetron Hcl 4 Mg/2 Ml Vial IVPUSH 12/18/22 05:56 4 mg ONCE ONE Administration Medical Decision Making Medical Decision Making [facility] Narrative: 1645 72-year-old male presents to the emergency department with complaints of epigastric/ left upper quadrant pain, nausea and vomiting since this morning sudden onset. No sick contacts physical exam with epigastric/left upper quadrant tenderness to palpation. Concerns for pancreatitis versus viral illness vs obstruction vs ileus. Unlikely diverticulitis, cholecystitis, appendicitis or acute surgical abdomen. Plan at this time labs, imaging, urine. Differential Diagnosis Differential Diagnoses: The differential diagnosis associated with the presentation includes Concerns for pancreatitis versus viral illness vs obstruction vs ileus.. Unlikely diverticulitis, cholecystitis, appendicitis or acute surgical abdomen. Admission/Observation Consideration of admission/observation: Escalation of care including admission/observation considered Consult Healthcare Provider Management of the patient was discussed with: Lipcoat Sprayer Lab Data [facility] Lab Attestation statement: I reviewed the patient's lab results. 12/18/22 06:07 12/18/22 06:07 Labs: Lab Results 12/18/22 12/18/22 12/18/22 Range/Units 06:07 06:07 06:07 WBC 18.6 H (4.8-10.8) X10*3/uL RBC 4.09 L D (4.60-5.80) X10*6/uL Hgb 14.0 D (14.0-18.0) g/dl Hct 41.2 L D (42.0-52.0) % MCV 100.7 H (80.0-98.0) fL MCH 34.2 H (27.0-33.0) pg MCHC 34.0 (31.0-36.0) g/dl RDW 13.7 (11.0-16.0) % Plt Count 348 D (160-400) X10*3/uL MPV 10.5 (9.4-12.4) fL Immature Gran % (Auto) 0.3 (0.0-0.4) % Neut % (Auto) 68.5 (45-73) % Lymph % (Auto) 21.1 (20-40) % [place] % (Auto) 8.1 (2-11) % Eos % (Auto) 1.5 (0-4) % Baso % (Auto) 0.5 (0-2) % Lymph # (Auto) 3.9 (1.2-4.9) X10*3/uL [place] # (Auto) 1.5 H (0.1-1.2) X10*3/uL Eos # (Auto) 0.3 (0.0-0.4) X10*3/uL Baso # (Auto) 0.1 (0.0-0.2) X10*3/uL Abs Immat Gran (auto) 0.06 H (0.00-0.03) X10*3/uL Absolute Neuts (auto) 12.8 H (2.0-8.3) x10*3/uL Absolute Nucleated RBC 0.030 H (0.0-0.012) X10*3/uL Nucleated RBC % (auto) 0.2 (0.0-0.2) /100WBC Smear Tech's Comments VERIFIED Sodium 141 (135-145) mmol/L Potassium 4.3 (3.3-5.1) mmol/L Chloride 105 (96-108) mmol/L Carbon Dioxide 24 (22-29) mmol/L Anion Gap 16 (12-20) BUN 44 H (9-16) mg/dL Creatinine 2.97 H (0.5-1.4) mg/dL Estim Creat Clear Calc 23.7 Estimated GFR 21 Random Glucose 216 H (60-115) mg/dL Calcium 10.4 H D (8.4-10.2) mg/dL Total Bilirubin 0.3 (0.0-1.0) mg/dL Direct Bilirubin 0.1 (0.0-0.5) mg/dL AST 17 (5-37) U/L ALT 21 (0-40) U/L Alkaline Phosphatase 83 (39-117) U/L Troponin I High Sens 18.2 (<3.5-35.0) ng/L Total Protein 7.9 (6.5-8.0) g/dL Albumin 4.2 (3.5-5.0) g/dL Lipase 30 (8-78) U/L Urine Color Urine Appearance Urine pH (5.0-9.0) Ur Specific [place] (1.005-1.025) Urine Protein (Neg-Trace) mg/dL Urine Glucose (UA) (Negative) mg/dL Urine Ketones (Negative) mg/dL Urine Blood (Negative) Urine Nitrite (Negative) Ur Leukocyte Esterase (Negative) Urine RBC (0-2) /HPF Urine WBC (0-5) /HPF Ur Squamous Epith Cells (0-2) /HPF Urine Bacteria (None Seen) Hyaline Casts (0-2) /LPF 12/18/22 Range/Units 10:49 WBC (4.8-10.8) X10*3/uL RBC (4.60-5.80) X10*6/uL Hgb (14.0-18.0) g/dl Hct (42.0-52.0) % MCV (80.0-98.0) fL MCH (27.0-33.0) pg MCHC (31.0-36.0) g/dl RDW (11.0-16.0) % Plt Count (160-400) X10*3/uL MPV (9.4-12.4) fL Immature Gran % (Auto) (0.0-0.4) % Neut % (Auto) (45-73) % Lymph % (Auto) (20-40) % [place] % (Auto) (2-11) % Eos % (Auto) (0-4) % Baso % (Auto) (0-2) % Lymph # (Auto) (1.2-4.9) X10*3/uL [place] # (Auto) (0.1-1.2) X10*3/uL Eos # (Auto) (0.0-0.4) X10*3/uL Baso # (Auto) (0.0-0.2) X10*3/uL Abs Immat Gran (auto) (0.00-0.03) X10*3/uL Absolute Neuts (auto) (2.0-8.3) x10*3/uL Absolute Nucleated RBC (0.0-0.012) X10*3/uL Nucleated RBC % (auto) (0.0-0.2) /100WBC Smear Tech's Comments Sodium (135-145) mmol/L Potassium (3.3-5.1) mmol/L Chloride (96-108) mmol/L Carbon Dioxide (22-29) mmol/L Anion Gap (12-20) BUN (9-16) mg/dL Creatinine (0.5-1.4) mg/dL Estim Creat Clear Calc Estimated GFR Random Glucose (60-115) mg/dL Calcium (8.4-10.2) mg/dL Total Bilirubin (0.0-1.0) mg/dL Direct Bilirubin (0.0-0.5) mg/dL AST (5-37) U/L ALT (0-40) U/L Alkaline Phosphatase (39-117) U/L Troponin I High Sens (<3.5-35.0) ng/L Total Protein (6.5-8.0) g/dL Albumin (3.5-5.0) g/dL Lipase (8-78) U/L Urine Color Yellow Urine Appearance Clear Urine pH 5.5 (5.0-9.0) Ur Specific [place] 1.015 (1.005-1.025) Urine Protein 30 (1+) H (Neg-Trace) mg/dL Urine Glucose (UA) 500 H (Negative) mg/dL Urine Ketones Negative (Negative) mg/dL Urine Blood Trace H (Negative) Urine Nitrite Negative (Negative) Ur Leukocyte Esterase Negative (Negative) Urine RBC 0-2 (0-2) /HPF Urine WBC 0-5 (0-5) /HPF Ur Squamous Epith Cells 0-2 (0-2) /HPF Urine Bacteria None Seen (None Seen) Hyaline Casts 0-2 (0-2) /LPF Independent Interpretation I performed an independent interpretation of an: CT Scan ( CT/CT abdomen pelvis wo IV con IMPRESSION: Proximal small bowel obstruction. Postsurgical changes following colectomy and right lower quadrant ileostomy. Small nonobstructing left renal stone. Fleischner guidelines were followed.) Radiology Impression Discussion of test interpretation with radiology: I have reviewed the radiologist's reading. Critical Care Time Critical Care Time Critical Care Time: Yes Total Critical Care Time: 35 Attestation: I attest to this time spent taking care of the patient, obtaining history, physical, reviewing labs, imaging, speaking to my attending, speaking to specialist. Discharge Plan Discharge Clinical Impression: Small bowel obstruction Patient Disposition: Still a Patient Prescriptions: No Action buspirone 5 mg Tablet 5 mg PO TID gabapentin 600 mg Tablet 600 mg PO BID carvedilol 12.5 mg Tablet 12.5 mg PO BID Rx Instructions: must administer with a meal/food cetirizine 10 mg Tablet 10 mg PO DAILY PRN (Reason: Allergic Symptoms) pravastatin 40 mg Tablet 40 mg PO BEDTIME trazodone 100 mg Tablet 100 mg PO BEDTIME PRN (Reason: Sleep) albuterol sulfate 90 mcg/actuation Hfa Aerosol Inhaler 2 puff INHALATION QID PRN (Reason: Respiratory Distress) sertraline 50 mg Tablet 75 mg PO DAILY hydrochlorothiazide 12.5 mg Tablet 12.5 mg PO DAILY Hold Instructions: hold until repeat labs in one week or you speak with PCP buprenorphine-naloxone 8-2 mg Film 1 film SUBLINGUAL TID omeprazole 40 mg capsule,delayed release(DR/EC) 40 mg PO BID 30 Days Qty: 60 0RF loperamide [Anti-Diarrheal (loperamide)] 2 mg tablet 2 mg PO Q6H PRN (Reason: Diarrhea) amlodipine 5 mg tablet 5 mg PO DAILY Jardiance 10 mg tablet 10 mg PO DAILY Dovato 50-300 mg tablet 1 tab PO DAILY Trulicity 0.75 mg/0.5 mL pen injector 0.75 mg subcut MO
[2022-12-18] MEDS: Morphine Sulfate 4 MG/ML CARTRIDGE IVPUSH (07:26)
[2022-12-18] MEDS: Metoclopramide HCl 10 MG/2 ML VIAL IVPUSH (07:49)
[2022-12-18] MEDS: diphenhydrAMINE HCL 50 MG/ML VIAL 25 MG IVPUSH (07:49)
[2022-12-18] MEDS: fentaNYL citrate/PF 100 MCG/2 ML VIAL 50 MCG IVPUSH (09:01)
--- NOTE | 2022-12-18 09:40 | PHA.MEDREC ---
Pharmacy Consult ? Medication Reconciliation Pharmacy has completed the medication reconciliation. Patient is on Dovato now in place of Triumeq. Patient also stopped januvia and is now on jardiance Davonte
--- NOTE | 2022-12-18 10:28 | P.HPGS_ITS ---
History of Present Illness History of Present Illness Date of Service: 12/18/22 Chief complaint: Nausea/Vomitting Narrative: 71-year-old male patient with a past history of diabetes, HIV, hypertension, ulcerative colitis status post colectomy with ileostomy performed approximately 10 years ago at [facility] now presenting with complaints of abdominal pain diffusely throughout his abdomen.? Patient also reports nausea and vomiting but denied fever or chills. His ostomy has been producing liquid without gas for the past several days. Patient had similar symptoms approximately 6 months ago was admitted to the hospitalist service. At that time he was found to have blood in his ostomy and was anemic. Currently denies any blood per ostomy. Upon presentation to the emergency department he was noted to be diffusely tender with palpation to his abdomen. ? WBC of 18.6 with a normal hemoglobin. A CT abdomen and pelvis revealed dilated loops of small bowel with air-fluid levels suggestive of a proximal small bowel obstruction. Decompressed small bowel was noted distally. A nasogastric tube was requested in the emergency department.? Patient is admitted to the? hospital service management. Review of Systems Constitutional: Constitutional: Denies chills, Denies fever(s), Denies headache(s) and Reports poor appetite ENT: Reports dizziness and Denies headache(s) Cardiovascular: Cardiovascular: Denies chest pain, Denies rapid heart rate, Denies palpitations and Denies slow heart rate Respiratory: Respiratory: Denies chest congestion, Denies cough, Denies pain on inspiration and Denies wheezing Gastrointestinal: Gastrointestinal: Reports abdominal pain, Reports melena, Reports bloating, Reports change in stool character (per ileostomy), Denies constipation, Denies diarrhea, Reports nausea, Reports vomiting and Denies hematemesis Musculoskeletal: Musculoskeletal: Denies back pain, Denies arthralgias, Denies joint swelling and Denies numbness Integumentary/Breasts: Skin/Breast: Denies change in pigmentation, Denies erythema and Denies rash Neurologic: Reports dizziness, Denies headache(s) and Denies numbness Psychiatric: Psychiatric: Denies anxiety and Denies depression Endocrine: Endocrine: Denies palpitations Hematologic/Lymphatic: Hematologic/Lymphatic: Denies easy bleeding, Denies easy bruising and Denies lymphadenopathy Allergic/Immunologic: Allergic/Immunologic: Denies wheezing PMFSH Past Medical History Medical History Chronic hepatitis Chronic use of nonprescription opiate drugs CKD (chronic kidney disease) Diabetes mellitus HIV (human immunodeficiency virus infection) HTN (hypertension), benign Hyperlipemia Pancreatitis Ulcerative colitis Surgical History Surgical History H/O colectomy History of total left knee replacement (TKR) Hx of cholecystectomy Hx of splenectomy Status post right hip replacement Social History Social History Household Members: None Alcohol intake: never Patient Tobacco Use Status: Former Tobacco user Tobacco use type: Cigarette Smoked in Last 30 Days: No Use of substances other than those prescribed or required for medical reasons: No Advance Directives: Yes Advance Directives on File: Yes Advance Directives Date on File: 06/07/21 service: No Current occupational status: disabled Meds Allergies Allergy/AdvReac Type Severity Reaction Status Date / Time ampicillin [AMPICILLIN] Allergy Mild HIVES Verified 06/07/21 12:29 aspirin [ASPIRIN] Allergy Unknown RASH Verified 06/07/21 12:29 Active Medications: Current Medications Vancomycin HCl (Vancomycin/Ns) 2,000 mg in 500 mls @ 250 mls/hr IV ONCE ONE Stop: 12/18/22 12:01 Pharmacy Consult (Consult Rx Vancomycin Dosing) 1 each MISCELLANE DAILY PRN PRN Reason: Consult order Home Medications Medication Instructions Recorded Confirmed Last Taken Type albuterol sulfate 90 mcg/actuation 2 puff inhalation QID PRN 06/06/21 12/18/22 2 Days Ago History aerosol inhaler Respiratory Distress ~12/16/22 buprenorphine 8 mg-naloxone 2 mg 1 film sublingual TID 06/06/21 12/18/22 2 Days Ago History sublingual film ~12/16/22 buspirone 5 mg tablet 5 mg PO TID 06/06/21 12/18/22 2 Days Ago History ~12/16/22 carvedilol 12.5 mg tablet 12.5 mg PO BID 06/06/21 12/18/22 2 Days Ago History ~12/16/22 cetirizine 10 mg tablet 10 mg PO DAILY PRN Allergic 06/06/21 12/18/22 2 Days Ago History Symptoms ~12/16/22 gabapentin 600 mg tablet 600 mg PO BID 06/06/21 12/18/22 2 Days Ago History ~12/16/22 hydrochlorothiazide 12.5 mg tablet 12.5 mg PO DAILY 06/06/21 12/18/22 2 Days Ago History ~12/16/22 pravastatin 40 mg tablet 40 mg PO BEDTIME 06/06/21 12/18/22 2 Days Ago History ~12/16/22 sertraline 50 mg tablet 75 mg PO DAILY 06/06/21 12/18/22 2 Days Ago History ~12/16/22 trazodone 100 mg tablet 100 mg PO BEDTIME PRN Sleep 06/06/21 12/18/22 2 Days Ago History ~12/16/22 amlodipine 5 mg tablet 5 mg PO DAILY 12/18/22 12/18/22 2 Days Ago History ~12/16/22 dolutegravir 50 mg-lamivudine 300 1 tab PO DAILY 12/18/22 12/18/22 2 Days Ago History mg tablet (Dovato) ~12/16/22 dulaglutide 0.75 mg/0.5 mL 0.75 mg subcut MO 12/18/22 12/18/22 2 Days Ago History subcutaneous pen injector ~12/16/22 (Trulicity) empagliflozin 10 mg tablet 10 mg PO DAILY 12/18/22 12/18/22 2 Days Ago History (Jardiance) ~12/16/22 loperamide 2 mg tablet 2 mg PO Q6H PRN Diarrhea 12/18/22 12/18/22 2 Days Ago History (Anti-Diarrheal (loperamide)) ~12/16/22 Physical Exam Vital Signs: Vital Signs: Last Vital Signs Temp 98.2 F 12/18/22 07:29 Pulse 65 12/18/22 09:03 Resp 14 12/18/22 09:03 BP 178/68 H 12/18/22 09:03 Pulse Ox 97 12/18/22 09:03 O2 Del Method Room Air 12/18/22 09:03 BMI result Body Mass Index 33.4 Const: General: cooperative, comfortable and well developed Nutritional Appearance: well nourished Orientation/consciousness: patient oriented x3 Eyes: Sclerae: sclerae normal EOM: EOMs intact bilaterally Neck: Neck: Yes normal visual inspection Resp: Effort & Inspection: normal respiratory effort, no cough, no respiratory distress and no stridor Cardio: Jugular venous distension: no JVD GI: Inspection: Yes normal to inspection Palpation (GI): Soft to palpation, Tenderness to palpation present (GI), no guarding and not rigid Percussion: Yes normal to percussion and Yes tympanic to percussion Auscultation: normal bowel sounds Rectal Exam - Male: Yes deferred Skin: General skin exam: dry skin Rashes: no rashes Neuro: General: patient oriented x3 and no focal motor deficits Extrem: General: Yes full ROM and Yes no clubbing, cyanosis or edema Psych: Appearance: grossly normal Results Results Labs: Short CBC 12/18/22 Range/Units 06:07 WBC 18.6 H (4.8-10.8) X10*3/uL Hgb 14.0 D (14.0-18.0) g/dl Hct 41.2 L D (42.0-52.0) % Plt Count 348 D (160-400) X10*3/uL BMP 12/18/22 06:07 Sodium 141 Potassium 4.3 Chloride 105 Carbon Dioxide 24 BUN 44 H Creatinine 2.97 H Calcium 10.4 H D Liver Function 12/18/22 Range/Units 06:07 Total Bilirubin 0.3 (0.0-1.0) mg/dL Direct Bilirubin 0.1 (0.0-0.5) mg/dL AST 17 (5-37) U/L ALT 21 (0-40) U/L Alkaline Phosphatase 83 (39-117) U/L Albumin 4.2 (3.5-5.0) g/dL Assessment and Plan (1) Small bowel obstruction: Status: Acute Plan 72-year-old male patient with history of a prior colectomy with ileostomy presenting with complaints of abdominal pain, nausea and vomiting. He also reports decreased output from his ostomy with decreased gas formation. He has a previous history of bowel obstruction treated approximately 6 months ago with similar symptoms. At that time he had blood per ostomy although this time he does not have any bleeding. CT abdomen and pelvis does reveal dilated loops of small bowel proximally with air-fluid level suggestive of a proximal small bowel obstruction without a clear transition point. He is being admitted to the surgical service for NG tube decompression. Hospitalist consultation was requested for management of his multiple medical issues. Time Spent With Patient Time: Total time managing care of this patient today ____ minutes. Quality Stroke Does the patient have a stroke diagnosis?: No VTE Prior VTE?: No VTE Risk Level:: Surgical - moderate VTE Device Contraindication: N/A - Device Ordered VTE Drug Contraindication: N/A - Med Ordered Procedures Date of Service Date of Service: 12/18/22
[2022-12-18] MEDS: Acetaminophen 1,000 MG/100 ML PIGGYBACK 400 MG IV ×3 (10:55→21:47)
[2022-12-18 10:58] LABS: Appearance Urine Clear; Color Urine Yellow; Glucose Urine UA 500 mg/dL (Negative); Leukocyte Esterase Urine Negative (Negative); Nitrite Urine Negative (Negative); PH 5.5 (5.0-9.0); Specific Gravity - Urine 1.015 (1.005-1.025); UMIC TRIGGER UACC YES; Urine Blood Trace (Negative); Urine Ketones Negative (Negative); Urine Protein 30 (1+) mg/dL (Neg-Trace)
[2022-12-18 11:10] LABS: Bacteria Urine None Seen (None Seen); Hyaline Casts Urine 0-2 /LPF (0-2); RBC Urine 0-2 /HPF (0-2); Squamous Epithelial Cell Urine 0-2 /HPF (0-2); WBC Urine 0-5 /HPF (0-5)
[2022-12-18] MEDS: Lactated Ringers 1,000 ML 100 ML IVCONT ×2 (11:15→19:27)
--- NOTE | 2022-12-18 11:20 | PC.NURSE ---
assumed care pt this am. pt reported 02/06; n/v. pt medicated per jun. improved sx. ivf infused. pt reported pain upon reassessment; 01/07 pain; pt medicated per order. LR infusing. pt axox4, respirations even and unlabored, sats 98% 2L NC, nsr on monitor 76 bpm. +bs x 4. ostomy RLQ with liquid stool present. skin wpd. call to pharmacy for lidocaine.
[2022-12-18] MEDS: Enoxaparin Sodium 30 MG/0.3 ML SYRINGE SUBCUT (11:42)
[2022-12-18] MEDS: Lidocaine HCl 4 % MPF w/MADgic 5 ML AMPUL 1 APPL TOPICAL (11:42)
--- NOTE | 2022-12-18 11:59 | PC.NURSE ---
nasogastric tube inserted R. nare; no immediate output. pt tolerated well. dressing secured. awaiting xray to confirm placement.
--- NOTE | 2022-12-18 13:24 | PM.IMHP ---
History of Present Illness Date of Service: 12/18/22 Attending physician on admission: Jacky Vo Chief Complaint: medical management 72-year-old male with history of [id number] type 2 diabetes, HIV on do Dovato following with [facility] ID, hypertension, ulcerative colitis s/p colectomy with ileostomy, GERD, and mood disorder admitted to General surgery for conservative management of small-bowel obstruction with consult placed to hospitalist service for medical management. Last viral load was undetectable and last CD4 count was greater than 900. He reports compliance with all of his medications. He is a former smoker with a history of IV drug abuse who quit 20 years ago. He denies any alcohol use. Review of Systems Review of Systems: General: No fevers, malaise, unintentional weight loss HEENT: No blurred vision, diplopia. No sore throat, nasal congestion, rhinorrhea, sinus pain, ear pain Cardiovascular: No chest pain, palpitations, or leg edema Respiratory: No shortness of breath, wheezing, cough GI: +abd pain, +nasuea. No vomiting, diarrhea, constipation, melena, hematochezia Neuro: No headaches, weakness, paresthesias Skin: No rashes or lesions PMFSH Medical History Chronic hepatitis Chronic use of nonprescription opiate drugs CKD (chronic kidney disease) Diabetes mellitus HIV (human immunodeficiency virus infection) HTN (hypertension), benign Hyperlipemia Pancreatitis Ulcerative colitis Surgical History H/O colectomy History of total left knee replacement (TKR) Hx of cholecystectomy Hx of splenectomy Status post right hip replacement Social History Household Members: None Alcohol intake: never Patient Tobacco Use Status: Former Tobacco user Tobacco use type: Cigarette Smoked in Last 30 Days: No Use of substances other than those prescribed or required for medical reasons: No Advance Directives: Yes Advance Directives on File: Yes Advance Directives Date on File: 06/07/21 service: No Current occupational status: disabled Meds Allergies Allergy/AdvReac Type Severity Reaction Status Date / Time ampicillin [AMPICILLIN] Allergy Mild HIVES Verified 06/07/21 12:29 aspirin [ASPIRIN] Allergy Unknown RASH Verified 06/07/21 12:29 Active Medications: Current Medications Enoxaparin Sodium (Enoxaparin Sodium 30 Mg/0.3 Ml Syringe) 30 mg SUBCUT Q24H [facility] Last Admin: 12/18/22 11:42 Dose: 30 mg Hydromorphone HCl (Hydromorphone Hcl 0.5 Mg/0.5 Ml Syringe) 0.5 mg IVPUSH Q3H PRN; Protocol PRN Reason: Pain, Severe (Pain Scale 7-10) Lactated Ringer's (Lr) 1,000 mls @ 100 mls/hr IVCONT .Q10H [facility] Last Admin: 12/18/22 11:15 Dose: 100 mls/hr Acetaminophen (Ofirmev) 1,000 mg in 100 mls @ 400 mls/hr IV Q6H [facility] Stop: 12/19/22 04:44 Last Infusion: 12/18/22 11:15 Dose: Infused Ondansetron HCl (Ondansetron Hcl 4 Mg/2 Ml Vial) 4 mg IVPUSH Q8H PRN PRN Reason: Nausea and Vomiting Sodium Chloride (0.9 % Sodium Chloride Flush 3 Ml Syringe) 3 ml IVFLUSH QSHIFT [facility] Zolpidem Tartrate (Zolpidem Tartrate 5 Mg Tablet) 5 mg PO BEDTIME PRN PRN Reason: Insomnia Home Medications Medication Instructions Recorded Confirmed Last Taken Type albuterol sulfate 90 mcg/actuation 2 puff inhalation QID PRN 06/06/21 12/18/22 2 Days Ago History aerosol inhaler Respiratory Distress ~12/16/22 buprenorphine 8 mg-naloxone 2 mg 1 film sublingual TID 06/06/21 12/18/22 2 Days Ago History sublingual film ~12/16/22 buspirone 5 mg tablet 5 mg PO TID 06/06/21 12/18/22 2 Days Ago History ~12/16/22 carvedilol 12.5 mg tablet 12.5 mg PO BID 06/06/21 12/18/22 2 Days Ago History ~12/16/22 cetirizine 10 mg tablet 10 mg PO DAILY PRN Allergic 06/06/21 12/18/22 2 Days Ago History Symptoms ~12/16/22 gabapentin 600 mg tablet 600 mg PO BID 06/06/21 12/18/22 2 Days Ago History ~12/16/22 hydrochlorothiazide 12.5 mg tablet 12.5 mg PO DAILY 06/06/21 12/18/22 2 Days Ago History ~12/16/22 pravastatin 40 mg tablet 40 mg PO BEDTIME 06/06/21 12/18/22 2 Days Ago History ~12/16/22 sertraline 50 mg tablet 75 mg PO DAILY 06/06/21 12/18/22 2 Days Ago History ~12/16/22 trazodone 100 mg tablet 100 mg PO BEDTIME PRN Sleep 06/06/21 12/18/22 2 Days Ago History ~12/16/22 amlodipine 5 mg tablet 5 mg PO DAILY 12/18/22 12/18/22 2 Days Ago History ~12/16/22 dolutegravir 50 mg-lamivudine 300 1 tab PO DAILY 12/18/22 12/18/22 2 Days Ago History mg tablet (Dovato) ~12/16/22 dulaglutide 0.75 mg/0.5 mL 0.75 mg subcut MO 12/18/22 12/18/22 2 Days Ago History subcutaneous pen injector ~12/16/22 (Trulicity) empagliflozin 10 mg tablet 10 mg PO DAILY 12/18/22 12/18/22 2 Days Ago History (Jardiance) ~12/16/22 loperamide 2 mg tablet 2 mg PO Q6H PRN Diarrhea 12/18/22 12/18/22 2 Days Ago History (Anti-Diarrheal (loperamide)) ~12/16/22 Physical Exam Vital Signs and Narrative: Vital Signs: Last Vital Signs Temp 100 F 12/18/22 10:51 Pulse 79 12/18/22 11:41 Resp 17 12/18/22 11:41 BP 150/73 H 12/18/22 11:41 Pulse Ox 95 12/18/22 11:41 O2 Del Method Nasal Cannula 12/18/22 11:41 O2 Flow Rate 2 12/18/22 11:41 BMI result Body Mass Index 33.4 Constitutional - Awake and Alert, No apparent distress Eyes - PERRLA, EOMI Cardiovascular - S1S2, RRR, No edema Respiratory - Normal lung expansion, Normal respiratory effort, No respiratory distress, CTA bilaterally Extremities - no calf tenderness bilaterally, no swelling Skin - Warm/Dry Neurological - Alert & oriented x3 Psychological - Appropriate affect Results Labs 12/18/22 06:07 12/18/22 06:07 Labs: Laboratory Results - last 24 hr 12/18/22 12/18/22 12/18/22 06:07 06:07 10:49 MCV 100.7 H MCH 34.2 H MCHC 34.0 RDW 13.7 Plt Count 348 D MPV 10.5 Immature Gran % (Auto) 0.3 Neut % (Auto) 68.5 Lymph % (Auto) 21.1 [place] % (Auto) 8.1 Eos % (Auto) 1.5 Baso % (Auto) 0.5 Lymph # (Auto) 3.9 [place] # (Auto) 1.5 H Eos # (Auto) 0.3 Baso # (Auto) 0.1 Abs Immat Gran (auto) 0.06 H Absolute Neuts (auto) 12.8 H Absolute Nucleated RBC 0.030 H Nucleated RBC % (auto) 0.2 Smear Tech's Comments VERIFIED Anion Gap 16 Estim Creat Clear Calc 23.7 Estimated GFR 21 Random Glucose 216 H Calcium 10.4 H D Total Bilirubin 0.3 Direct Bilirubin 0.1 AST 17 ALT 21 Alkaline Phosphatase 83 Total Protein 7.9 Albumin 4.2 Lipase 30 Urine Color Yellow Urine Appearance Clear Urine pH 5.5 Ur Specific [place] 1.015 Urine Protein 30 (1+) H Urine Glucose (UA) 500 H Urine Ketones Negative Urine Blood Trace H Urine Nitrite Negative Ur Leukocyte Esterase Negative Urine RBC 0-2 Urine WBC 0-5 Ur Squamous Epith Cells 0-2 Urine Bacteria None Seen Hyaline Casts 0-2 Imaging Radiologist's Impressions: Impressions Abdomen/Pelvis CT 12/18/22 08:12 IMPRESSION: Proximal small bowel obstruction. Postsurgical changes following colectomy and right lower quadrant ileostomy. Small nonobstructing left renal stone. Fleischner guidelines were followed. Assessment and Plan (1) Small bowel obstruction: Status: Acute Plan 72-year-old male with history of [id number] type 2 diabetes, HIV on do Dovato following with [facility] ID, hypertension, ulcerative colitis s/p colectomy with ileostomy, GERD, and mood disorder admitted to General surgery for conservative management of small-bowel obstruction with consult placed to hospitalist service for medical management. #Acute SBO -plan per general surgery -npo with NG tube in place # huq-nldfgrg-cvheigkzr type 2 diabetes -POC glucose -advanced diabetic diet per General surgery -hold on Humalog per sliding scale given NPO status -continue Jardiance # HIV -last viral load undetectable, last CD4 count greater than 900 -continue dovato # hypertension -continue carvedilol, amlodipine -hold hydrochlorothiazide setting of MARY JO # mood disorder -continue Zoloft, trazodone, BuSpar -hold gabapentin setting of MARY JO DVT prophylaxis per General surgery Thank you for this consult, we will continue to follow Time Spent With Patient Time: Total time managing care of this patient today ____ minutes. Quality Stroke Does the patient have a stroke diagnosis?: No VTE Prior VTE?: No VTE Risk Level:: Surgical - moderate VTE Device Contraindication: N/A - Device Ordered VTE Drug Contraindication: N/A - Med Ordered
--- NOTE | 2022-12-18 13:35 | PC.NURSE ---
Pt appears comfortable. Awaiting placement xray to result prior to suction
[2022-12-18] MEDS: HYDROmorphone HCl 0.5 MG/0.5 ML SYRINGE IVPUSH ×2 (14:50→18:01)
--- NOTE | 2022-12-18 15:05 | PC.NURSE ---
report given to JUAN DIEGO Romero
[2022-12-18] MEDS: Omeprazole 40 MG CAPSULE.DR PO (16:43)
[2022-12-18] MEDS: busPIRone HCl 5 MG TABLET PO ×2 (16:43→19:26)
[2022-12-18] MEDS: Buprenorphine/Naloxone 8/2 mg FILM 1 FILM SUBLINGUAL ×2 (16:43→19:27)
[2022-12-18 16:44] LABS: Glucose, Whole Blood 162 mg/dL (60-115)
[2022-12-18] MEDS: carvediloL 12.5 MG TABLET PO (19:26)
[2022-12-18] MEDS: traZODone HCL 100 MG TABLET PO (19:26)
[2022-12-18 20:26] LABS: Glucose, Whole Blood 132 mg/dL (60-115)
[2022-12-19] VITALS (7 sets, daily range): BP systolic 158–162; BP diastolic 80–92; PULSE 63–70; RESP 16–20; TEMP 36.3–36.7; O2SAT 93–95
[2022-12-19] MEDS: HYDROmorphone HCl 0.5 MG/0.5 ML SYRINGE IVPUSH ×8 (00:59→20:37)
[2022-12-19] MEDS: Acetaminophen 1,000 MG/100 ML PIGGYBACK 400 MG IV ×4 (03:47→20:41)
[2022-12-19] MEDS: Lactated Ringers 1,000 ML 100 ML IVCONT ×3 (03:47→23:46)
[2022-12-19 05:53] LABS: Basophils Absolute Auto 0.1 X10*3/uL (0.0-0.2); Basophils Percent Auto 0.3 % (0-2); Eosinophils Percent Auto 0.2 % (0-4); Hematocrit 42.1 % (42.0-52.0); Imm Gran Abs Auto 0.08 X10*3/uL (0.00-0.03); Imm Gran Pct Auto 0.4 % (0.0-0.4); Lymphocytes Absolute Auto 1.5 X10*3/uL (1.2-4.9); Lymphocytes Percent Auto 7.2 % (20-40); MANUAL DIFF FLAG SCAN; Mean Corpuscular HGB Conc 33.3 g/dl (31.0-36.0); Mean Corpuscular Hemoglobin 34.3 pg (27.0-33.0); Mean Corpuscular Volume 103.2 fL (80.0-98.0); Mean Platelet Volume 11.2 fL (9.4-12.4); Monocytes Absolute Auto 1.9 X10*3/uL (0.1-1.2); Neutrophils Absolute Auto 17.2 x10*3/uL (2.0-8.3); Neutrophils Percent Auto 82.9 % (45-73); Platelet Count 302 X10*3/uL (160-400); Red Blood Count 4.08 X10*6/uL (4.60-5.80); Red Cell Distribution Width 13.8 % (11.0-16.0); SCAN SMEAR FLAG 1; White Blood Count 20.8 X10*3/uL (4.8-10.8)
[2022-12-19 06:09] LABS: Anion Gap 15 (12-20); Blood Urea Nitrogen 29 mg/dL (9-16); Calcium 9.4 mg/dL (8.4-10.2); Carbon Dioxide 26 mmol/L (22-29); Chloride 104 mmol/L (96-108); Creatinine Clr Calc Pharmacy 35.8; Estimated Glomerular Filt Rate 33; Glucose Random 163 mg/dL (60-115); Sodium 141 mmol/L (135-145)
[2022-12-19] MEDS: Omeprazole 40 MG CAPSULE.DR PO ×2 (06:20→14:45)
[2022-12-19 06:34] LABS: SLIDE REVIEW VERIFIED
[2022-12-19 07:39] LABS: Glucose, Whole Blood 180 mg/dL (60-115)
--- NOTE | 2022-12-19 07:47 | P.PNGS_ITS ---
Subjective Subjective Date of Service: 12/19/22 <Sophie Zavaleta PA-C - Last Filed: 12/19/22 07:52> 12/19/22 <Jacky Vo MD - Last Filed: 12/19/22 08:07> Interval history: C/o nausea. Still has diffuse abd pain. Ostomy with liquid output. <CLAIRE Esposito Last Filed: 12/19/22 07:52> Physical Exam Vital Signs: Vital Signs: Last Vital Signs Temp 97.3 F 12/19/22 07:09 Pulse 68 12/19/22 07:09 Resp 20 12/19/22 07:09 BP 162/82 H 12/19/22 07:09 Pulse Ox 95 12/19/22 07:09 O2 Del Method Room Air 12/19/22 07:09 O2 Flow Rate 2 12/18/22 15:36 BMI result Body Mass Index 33.4 <CLAIRE Esposito Last Filed: 12/19/22 07:52> Const: General: no acute distress and alert <CLAIRE Esposito st Filed: 12/19/22 07:52> Orientation/consciousness: patient oriented x3 <CLAIRE Esposito Last Filed: 12/19/22 07:52> HEENT: Other: NGT with bilious output <CLAIRE Esposito Last Filed: 12/19/22 07:52> Resp: Effort & Inspection: normal respiratory effort <CLAIRE Esposito Last Filed: 12/19/22 07:52> GI: Other: soft, nondistended, mild mid abdominal tenderness, ostomy pink with liquid output <CLAIRE Esposito Last Filed: 12/19/22 07:52> Skin: General skin exam: no rashes or lesions noted <CLAIRE Esposito Last Filed: 12/19/22 07:52> Neuro: General: patient oriented x3 and moves all extremities <CLAIRE Esposito Last Filed: 12/19/22 07:52> Objective Data Active Medications Albuterol Sulfate (Albuterol Sulfate 90 Mcg 8 Gm Inhaler) 2 puff INHALE RQID PRN PRN Reason: Respiratory Distress Amlodipine Besylate (Amlodipine Besylate 5 Mg Tablet) 5 mg PO DAILY [facility]; Protocol Buprenorphine/Naloxone (Buprenorphine/Naloxone 8/2 Mg Film) 1 film SUBLINGUAL TID [facility] Last Admin: 12/18/22 19:27 Dose: 1 film Documented By: MISHEL Buspirone HCl (Buspirone Hcl 5 Mg Tablet) 5 mg PO TID [facility] Last Admin: 12/18/22 19:26 Dose: 5 mg Documented By: MISHEL Carvedilol (Carvedilol 12.5 Mg Tablet) 12.5 mg PO BID [facility]; Protocol Last Admin: 12/18/22 19:26 Dose: 12.5 mg Documented By: MISHEL Dextrose (Dextrose 50 % 25 Gm/50 Ml Syringe) 25 gm IVPUSH Q15M PRN; Protocol PRN Reason: per Hypoglycemia Standing Ord. Enoxaparin Sodium (Enoxaparin Sodium 30 Mg/0.3 Ml Syringe) 30 mg SUBCUT Q24H [facility] Last Admin: 12/18/22 11:42 Dose: 30 mg Documented By: MELANIA Glucose (Glucose Gel 15 Gm Gel..Gram.) 15 gm PO Q15M PRN; Protocol PRN Reason: per Hypoglycemia Standing Ord. Hydromorphone HCl (Hydromorphone Hcl 0.5 Mg/0.5 Ml Syringe) 0.5 mg IVPUSH Q3H PRN; Protocol PRN Reason: Pain, Severe (Pain Scale 7-10) Last Admin: 12/19/22 06:34 Dose: 0.5 mg Documented By: MISHEL Lactated Ringer's (Lr) 1,000 mls @ 100 mls/hr IVCONT .Q10H [facility] Last Admin: 12/19/22 03:47 Dose: 100 mls/hr Documented By: MISHEL Loratadine (Loratadine 10 Mg Tablet) 10 mg PO DAILY PRN PRN Reason: Allergic Symptoms Non-Formulary Medication (Dolutegravir-Lamivudine [Dovato]) 1 tab PO DAILY [facility] Omeprazole (Omeprazole 40 Mg Capsule.) 40 mg PO BID@0630,1630 [facility] Last Admin: 12/19/22 06:20 Dose: 40 mg Documented By: MISHEL Ondansetron HCl (Ondansetron Hcl 4 Mg/2 Ml Vial) 4 mg IVPUSH Q8H PRN PRN Reason: Nausea and Vomiting Sertraline HCl (Sertraline Hcl 25 Mg Tablet) 75 mg PO DAILY [facility] Sodium Chloride (0.9 % Sodium Chloride Flush 3 Ml Syringe) 3 ml IVFLUSH QSHIFT [facility] Last Admin: 12/19/22 07:38 Dose: Not Given Documented By: COTEMA Non-Admin Reason: IV Running Trazodone HCl (Trazodone Hcl 100 Mg Tablet) 100 mg PO BEDTIME PRN PRN Reason: Sleep Last Admin: 12/18/22 19:26 Dose: 100 mg Documented By: MISHEL Zolpidem Tartrate (Zolpidem Tartrate 5 Mg Tablet) 5 mg PO BEDTIME PRN PRN Reason: Insomnia <Sophie Zavaleta PA-C - Last Filed: 12/19/22 07:52> Labs CBC & Chem 7: 12/19/22 05:27 12/19/22 05:27 <Sophie Zavaleta PA-C - Last Filed: 12/19/22 07:52> Labs: Laboratory Results - last 24 hr 12/18/22 12/18/22 12/18/22 10:49 16:40 20:16 MCV MCH MCHC RDW Plt Count MPV Immature Gran % (Auto) Neut % (Auto) Lymph % (Auto) [place] % (Auto) Eos % (Auto) Baso % (Auto) Lymph # (Auto) [place] # (Auto) Eos # (Auto) Baso # (Auto) Abs Immat Gran (auto) Absolute Neuts (auto) Absolute Nucleated RBC Nucleated RBC % (auto) Smear Tech's Comments Anion Gap Estim Creat Clear Calc Estimated GFR POC Glucose 162 H 132 H Random Glucose Calcium Urine Color Yellow Urine Appearance Clear Urine pH 5.5 Ur Specific [place] 1.015 Urine Protein 30 (1+) H Urine Glucose (UA) 500 H Urine Ketones Negative Urine Blood Trace H Urine Nitrite Negative Ur Leukocyte Esterase Negative Urine RBC 0-2 Urine WBC 0-5 Ur Squamous Epith Cells 0-2 Urine Bacteria None Seen Hyaline Casts 0-2 12/19/22 12/19/22 12/19/22 05:27 05:27 07:22 MCV 103.2 H MCH 34.3 H MCHC 33.3 RDW 13.8 Plt Count 302 MPV 11.2 Immature Gran % (Auto) 0.4 Neut % (Auto) 82.9 H Lymph % (Auto) 7.2 L [place] % (Auto) 9.0 Eos % (Auto) 0.2 Baso % (Auto) 0.3 Lymph # (Auto) 1.5 [place] # (Auto) 1.9 H Eos # (Auto) 0.0 Baso # (Auto) 0.1 Abs Immat Gran (auto) 0.08 H Absolute Neuts (auto) 17.2 H Absolute Nucleated RBC 0.000 Nucleated RBC % (auto) 0.0 Smear Tech's Comments VERIFIED Anion Gap 15 Estim Creat Clear Calc 35.8 Estimated GFR 33 POC Glucose 180 H Random Glucose 163 H Calcium 9.4 D Urine Color Urine Appearance Urine pH Ur Specific [place] Urine Protein Urine Glucose (UA) Urine Ketones Urine Blood Urine Nitrite Ur Leukocyte Esterase Urine RBC Urine WBC Ur Squamous Epith Cells Urine Bacteria Hyaline Casts <Sophie Zavaleta PA-C - Last Filed: 12/19/22 07:52> Procedures Date of Service Date of Service: 12/19/22 <Sophie Zavaleta PA-C - Last Filed: 12/19/22 07:52> 12/19/22 <Jacky Vo MD - Last Filed: 12/19/22 08:07> Progress Note: A&P Assessment and plan (1) Small bowel obstruction: Status: Acute <Sophie Zavaleta PA-C - Last Filed: 12/19/22 07:52> Assessment and Plan: 72 year old male with history of total colectomy with end ileostomy now with SBO. Appears uncomfortable this am but has not received suboxone yet. NGT in place and draining, abd soft. Will obtain AXR this am. Will reassess later today. Cont conservative measures with NGT, IVF, OOB/ambulation. Pain control. <Sophie Zavaleta PA-C - Last Filed: 12/19/22 07:52> 72 year old male with history of total colectomy with end ileostomy now with SBO. Appears uncomfortable this am but has not received suboxone yet. NGT in place and draining, abd soft. Will obtain AXR this am. Will reassess later today. Cont conservative measures with NGT, IVF, OOB/ambulation. Pain control. Agree with the above assessment and plan. Patient due for his suboxone and is having abdominal discomfort. Will reevaluate after meds provided. <Jacky Vo MD - Last Filed: 12/19/22 08:07> Time Spent With Patient Time: Total time managing care of this patient today ____ minutes. <Sophie Zavaleta PA-C - Last Filed: 12/19/22 07:52> Quality Stroke Does the patient have a stroke diagnosis?: No <Sophie Zavaleta PA-C - Last Filed: 12/19/22 07:52> VTE Prior VTE?: No <Sophie Zavaleta PA-C - Last Filed: 12/19/22 07:52> VTE Risk Level:: Surgical - moderate <Sophie Zavaleta PA-C - Last Filed: 12/19/22 07:52> VTE Device Contraindication: N/A - Device Ordered <Sophie Zavaleta PA-C - Last Filed: 12/19/22 07:52> VTE Drug Contraindication: N/A - Med Ordered <Sophie Zavaleta PA-C - Last Filed: 12/19/22 07:52>
[2022-12-19] MEDS: carvediloL 12.5 MG TABLET PO ×2 (08:40→20:44)
[2022-12-19] MEDS: Dolutegravir Sodium 50 MG TABLET PO (08:40)
[2022-12-19] MEDS: Buprenorphine/Naloxone 8/2 mg FILM 1 FILM SUBLINGUAL ×3 (08:40→20:45)
[2022-12-19] MEDS: busPIRone HCl 5 MG TABLET PO ×3 (08:40→20:44)
[2022-12-19] MEDS: amLODIPine Besylate 5 MG TABLET PO (08:40)
[2022-12-19] MEDS: Sertraline HCL 25 MG TABLET 75 MG PO (08:40)
[2022-12-19] MEDS: lamiVUDine 150 MG TABLET 300 MG PO (09:02)
[2022-12-19] MEDS: Enoxaparin Sodium 30 MG/0.3 ML SYRINGE SUBCUT (09:04)
[2022-12-19 11:24] LABS: Glucose, Whole Blood 168 mg/dL (60-115)
[2022-12-19] MEDS: ondansetron HCL 4 MG/2 ML VIAL IVPUSH (12:59)
--- NOTE | 2022-12-19 15:41 | HO.PM.IMPN ---
Subjective Subjective Date of Service: 12/19/22 Interval History: complaining of abdominal pain, nausea, NG tube with bilious drainage, denies headache, no dizziness, no fevers, no chills, no chest pain, no shortness of breath or cough no other acute issues overnight Review of Systems all other system reviewed and negative Physical Exam Vital Signs: Vital Signs: Last Vital Signs Temp 97.6 F 12/19/22 15:23 Pulse 70 12/19/22 15:23 Resp 16 12/19/22 15:23 BP 162/82 H 12/19/22 07:09 Pulse Ox 93 12/19/22 15:23 O2 Del Method Room Air 12/19/22 15:23 O2 Flow Rate 2 12/18/22 15:36 BMI result Body Mass Index 33.4 Const: Other: General awake alert x3,in no acute distress. NG with bilious drainage Neck is supple no JVD. CVS regular rate rhythm, Respiratory lungs clear to auscultation, no respiratory distress, no rhonchi. Gastrointestinal abdomen soft, mid abdominal tenderness to palpation, bowel sounds audible, no guarding , no rigidity, colostomy bag with light brown liquid. Extremities no edema. Neuro nonfocal ,speech clear. Skin no rash appropriate affect Objective Data Active Medications Albuterol Sulfate (Albuterol Sulfate 90 Mcg 8 Gm Inhaler) 2 puff INHALE RQID PRN PRN Reason: Respiratory Distress Amlodipine Besylate (Amlodipine Besylate 5 Mg Tablet) 5 mg PO DAILY [facility]; Protocol Last Admin: 12/19/22 08:40 Dose: 5 mg Documented By: PEG.COTEMA Buprenorphine/Naloxone (Buprenorphine/Naloxone 8/2 Mg Film) 1 film SUBLINGUAL TID [facility] Last Admin: 12/19/22 14:45 Dose: 1 film Documented By: PEG.COTEMA Buspirone HCl (Buspirone Hcl 5 Mg Tablet) 5 mg PO TID [facility] Last Admin: 12/19/22 14:45 Dose: 5 mg Documented By: PEG.COTEMA Carvedilol (Carvedilol 12.5 Mg Tablet) 12.5 mg PO BID [facility]; Protocol Last Admin: 12/19/22 08:40 Dose: 12.5 mg Documented By: COTEMA Dextrose (Dextrose 50 % 25 Gm/50 Ml Syringe) 25 gm IVPUSH Q15M PRN; Protocol PRN Reason: per Hypoglycemia Standing Ord. Dolutegravir Sodium (Dolutegravir Sodium 50 Mg Tablet) 50 mg PO DAILY [facility] Last Admin: 12/19/22 08:40 Dose: 50 mg Documented By: PEG.COTEMA Enoxaparin Sodium (Enoxaparin Sodium 30 Mg/0.3 Ml Syringe) 30 mg SUBCUT Q24H [facility] Last Admin: 12/19/22 09:04 Dose: 30 mg Documented By: PEG.COTEMA Gabapentin (Gabapentin 600 Mg Tablet) 600 mg PO BID [facility] Glucose (Glucose Gel 15 Gm Gel..Gram.) 15 gm PO Q15M PRN; Protocol PRN Reason: per Hypoglycemia Standing Ord. Hydromorphone HCl (Hydromorphone Hcl 0.5 Mg/0.5 Ml Syringe) 0.5 mg IVPUSH Q3H PRN; Protocol PRN Reason: Pain, Severe (Pain Scale 7-10) Last Admin: 12/19/22 14:46 Dose: 0.5 mg Documented By: COTEMA Lactated Ringer's (Lr) 1,000 mls @ 100 mls/hr IVCONT .Q10H [facility] Last Admin: 12/19/22 14:03 Dose: 100 mls/hr Documented By: PEG.COTEMA Acetaminophen (Ofirmev) 1,000 mg in 100 mls @ 400 mls/hr IV Q6H [facility] Last Infusion: 12/19/22 14:21 Dose: 0 mls/hr Documented By: COTEMA Lamivudine (Lamivudine 150 Mg Tablet) 300 mg PO DAILY [facility] Last Admin: 12/19/22 09:02 Dose: 300 mg Documented By: COTEMA Loratadine (Loratadine 10 Mg Tablet) 10 mg PO DAILY PRN PRN Reason: Allergic Symptoms Omeprazole (Omeprazole 40 Mg Capsule.) 40 mg PO BID@0630,1630 [facility] Last Admin: 12/19/22 14:45 Dose: 40 mg Documented By: PEG.COTEMA Ondansetron HCl (Ondansetron Hcl 4 Mg/2 Ml Vial) 4 mg IVPUSH Q8H PRN PRN Reason: Nausea and Vomiting Last Admin: 12/19/22 12:59 Dose: 4 mg Documented By: PEG.COTEMA Sertraline HCl (Sertraline Hcl 25 Mg Tablet) 75 mg PO DAILY [facility] Last Admin: 12/19/22 08:40 Dose: 75 mg Documented By: JEANINE Sodium Chloride (0.9 % Sodium Chloride Flush 3 Ml Syringe) 3 ml IVFLUSH QSHIFT [facility] Last Admin: 12/19/22 14:46 Dose: Not Given Documented By: JEANINE Non-Admin Reason: IV Running Trazodone HCl (Trazodone Hcl 100 Mg Tablet) 100 mg PO BEDTIME PRN PRN Reason: Sleep Last Admin: 12/18/22 19:26 Dose: 100 mg Documented By: MISHEL Zolpidem Tartrate (Zolpidem Tartrate 5 Mg Tablet) 5 mg PO BEDTIME PRN PRN Reason: Insomnia Labs 12/19/22 05:27 12/19/22 05:27 Labs: Laboratory Results - last 24 hr 12/18/22 12/18/22 12/19/22 16:40 20:16 05:27 MCV 103.2 H MCH 34.3 H MCHC 33.3 RDW 13.8 Plt Count 302 MPV 11.2 Immature Gran % (Auto) 0.4 Neut % (Auto) 82.9 H Lymph % (Auto) 7.2 L [place] % (Auto) 9.0 Eos % (Auto) 0.2 Baso % (Auto) 0.3 Lymph # (Auto) 1.5 [place] # (Auto) 1.9 H Eos # (Auto) 0.0 Baso # (Auto) 0.1 Abs Immat Gran (auto) 0.08 H Absolute Neuts (auto) 17.2 H Absolute Nucleated RBC 0.000 Nucleated RBC % (auto) 0.0 Smear Tech's Comments VERIFIED Anion Gap Estim Creat Clear Calc Estimated GFR POC Glucose 162 H 132 H Random Glucose Calcium 12/19/22 12/19/22 12/19/22 05:27 07:22 11:14 MCV MCH MCHC RDW Plt Count MPV Immature Gran % (Auto) Neut % (Auto) Lymph % (Auto) [place] % (Auto) Eos % (Auto) Baso % (Auto) Lymph # (Auto) [place] # (Auto) Eos # (Auto) Baso # (Auto) Abs Immat Gran (auto) Absolute Neuts (auto) Absolute Nucleated RBC Nucleated RBC % (auto) Smear Tech's Comments Anion Gap 15 Estim Creat Clear Calc 35.8 Estimated GFR 33 POC Glucose 180 H 168 H Random Glucose 163 H Calcium 9.4 D Assessment and Plan (1) Small bowel obstruction: Status: Acute (2) Leukocytosis: Status: Acute (3) Acute kidney injury superimposed on CKD: Status: Acute Plan 72-year-old male with history of [id number] type 2 diabetes, HIV on do Dovato [place] [facility] [place] [facility], hypertension, ulcerative colitis s/p colectomy with ileostomy, GERD, and mood disorder admitted to General surgery for conservative management of small-bowel obstruction with consult placed to hospitalist service for medical management. #Acute SBO -npo with NG tube in place, receiving IV fluids, 650 NG output this morning, scheduled for K[facility] treatment plan as per General surgery chronically elevated leukocytosis, normal UA, normal chest x-ray, CT abdomen pelvis not suggestive of infection. # [id number] type 2 diabetes -POC glucose Less than 200 -advanced diabetic diet per General surgery -hold on Humalog per sliding scale given NPO status, hold Jardiance # acute on chronic kidney disease stage III continue IV fluid renal function trending down # HIV -last viral load undetectable, last CD4 count greater than 900 -continue dovato # hypertension -continue carvedilol, amlodipine, hold hydrochlorothiazide setting of MARY JO # mood disorder -continue Zoloft, trazodone, BuSpar, resume gabapentin DVT prophylaxis on Lovenox disposition as per General surgery Time Spent With Patient Time: Total time managing care of this patient today ____ minutes. Quality Stroke Does the patient have a stroke diagnosis?: No VTE Prior VTE?: No VTE Risk Level:: Surgical - moderate VTE Device Contraindication: N/A - Device Ordered VTE Drug Contraindication: N/A - Med Ordered
[2022-12-19 16:48] LABS: Glucose, Whole Blood 185 mg/dL (60-115)
--- NOTE | 2022-12-19 17:17 | PC.NURSE ---
PATIENT COMPLAINT OF 10/10 PAIN AT 1240 PT WAS NOT DUE FOR IV DILAUDID OR IV TYLENOL. NG TUBE DRAINING. GARY COTA AWARE- 1X DOSE OF IV DILAUDID ORDERED AND GIVEN. PT COMPLAINT OF 10/10 PAIN AGAIN AT 1620 STATING HE DID NOT FEEL LIKE HE WAS GETTING ANY BETTER AND THAT HE BELIEVED HE NEEDED SURGERY PT NOT DUE FOR ANY PAIN MEDICATION AT THIS TIME. NG TUBE DRAINING. DR. PHILLIPS MADE AWARE AND SAID HE WILL ADD HIM TO THE SURGICAL SCHEDULE FOR TOMORROW IF NO RESOLUTION IN PAIN. WILL CONTINUE TO MONITOR NG OUTPUT AND PAIN.
[2022-12-19] MEDS: LORazepam 2 MG/ML VIAL 0.5 MG IVPUSH (18:07)
[2022-12-19 20:25] LABS: Glucose, Whole Blood 157 mg/dL (60-115)
[2022-12-19] MEDS: traZODone HCL 100 MG TABLET PO (20:44)
[2022-12-19] MEDS: Gabapentin 600 MG TABLET PO (20:44)
[2022-12-20] VITALS (43 sets, daily range): BP systolic 156–200; BP diastolic 60–103; PULSE 57–97; RESP 14–22; TEMP 32–36.9; O2SAT 91–99
[2022-12-20] MEDS: HYDROmorphone HCl 0.5 MG/0.5 ML SYRINGE IVPUSH ×8 (02:17→22:07)
[2022-12-20] MEDS: LORazepam 2 MG/ML VIAL 0.5 MG IVPUSH ×2 (02:20→20:32)
[2022-12-20] MEDS: Acetaminophen 1,000 MG/100 ML PIGGYBACK 400 MG IV ×2 (02:23→18:45)
[2022-12-20] MEDS: Omeprazole 40 MG CAPSULE.DR PO (05:50)
[2022-12-20 05:53] LABS: Hematocrit 39.9 % (42.0-52.0); Mean Corpuscular HGB Conc 32.6 g/dl (31.0-36.0); Mean Corpuscular Hemoglobin 33.4 pg (27.0-33.0); Mean Corpuscular Volume 102.6 fL (80.0-98.0); Mean Platelet Volume 11.2 fL (9.4-12.4); NRBC Pct Auto 0.2 /100WBC (0.0-0.2); Platelet Count 273 X10*3/uL (160-400); Red Blood Count 3.89 X10*6/uL (4.60-5.80); Red Cell Distribution Width 13.7 % (11.0-16.0); White Blood Count 10.1 X10*3/uL (4.8-10.8)
[2022-12-20 06:04] LABS: Anion Gap 14 (12-20); Blood Urea Nitrogen 32 mg/dL (9-16); Calcium 9.2 mg/dL (8.4-10.2); Carbon Dioxide 27 mmol/L (22-29); Chloride 102 mmol/L (96-108); Creatinine Clr Calc Pharmacy 37.1; Estimated Glomerular Filt Rate 35; Glucose Random 147 mg/dL (60-115); Potassium 3.6 mmol/L (3.3-5.1); Sodium 139 mmol/L (135-145)
[2022-12-20 07:30] LABS: Glucose, Whole Blood 153 mg/dL (60-115)
[2022-12-20] MEDS: Sertraline HCL 25 MG TABLET 75 MG PO (07:52)
[2022-12-20] MEDS: carvediloL 12.5 MG TABLET PO ×2 (07:52→22:07)
[2022-12-20] MEDS: lamiVUDine 150 MG TABLET 300 MG PO (07:53)
[2022-12-20] MEDS: amLODIPine Besylate 5 MG TABLET PO (07:54)
[2022-12-20] MEDS: busPIRone HCl 5 MG TABLET PO ×2 (07:54→22:07)
[2022-12-20] MEDS: Gabapentin 600 MG TABLET PO ×2 (07:55→22:07)
[2022-12-20] MEDS: Buprenorphine/Naloxone 8/2 mg FILM 1 FILM SUBLINGUAL ×2 (07:55→22:08)
[2022-12-20] MEDS: 0.9 % Sodium Chloride Flush 3 ML SYRINGE IVFLUSH (07:56)
[2022-12-20] MEDS: Dolutegravir Sodium 50 MG TABLET PO (07:57)
--- NOTE | 2022-12-20 08:17 | PM.PNGS ---
Subjective Subjective Date of Service: 12/20/22 Interval history: Pain 7/10 this morning; having some liquid stool from ostomy. NGT with bilious output. Physical Exam Vital Signs: Vital Signs: Last Vital Signs Temp 97.5 F 12/20/22 07:43 Pulse 63 12/20/22 07:43 Resp 18 12/20/22 07:43 BP 181/85 H 12/20/22 07:43 Pulse Ox 91 L 12/20/22 07:43 O2 Del Method Room Air 12/20/22 07:43 O2 Flow Rate 2 12/18/22 15:36 BMI result Body Mass Index 33.4 Const: General: well developed Nutritional Appearance: well nourished Orientation/consciousness: patient oriented x3 Limitations: no limitations Resp: Effort & Inspection: normal respiratory effort GI: Palpation (GI): Soft to palpation, Tenderness to palpation present (GI) in the LLQ and in the RLQ, no guarding, not rigid and No Rebound tenderness present Percussion: Yes normal to percussion Auscultation: normal bowel sounds Neuro: General: patient oriented x3 Extrem: General: Yes normal to inspection Objective Data Active Medications Albuterol Sulfate (Albuterol Sulfate 90 Mcg 8 Gm Inhaler) 2 puff INHALE RQID PRN PRN Reason: Respiratory Distress Amlodipine Besylate (Amlodipine Besylate 5 Mg Tablet) 5 mg PO DAILY [facility]; Protocol Last Admin: 12/20/22 07:54 Dose: 5 mg Documented By: ABAD Buprenorphine/Naloxone (Buprenorphine/Naloxone 8/2 Mg Film) 1 film SUBLINGUAL TID [facility] Last Admin: 12/20/22 07:55 Dose: 1 film Documented By: ABAD Buspirone HCl (Buspirone Hcl 5 Mg Tablet) 5 mg PO TID [facility] Last Admin: 12/20/22 07:54 Dose: 5 mg Documented By: ABAD Carvedilol (Carvedilol 12.5 Mg Tablet) 12.5 mg PO BID [facility]; Protocol Last Admin: 12/20/22 07:52 Dose: 12.5 mg Documented By: ABAD Dextrose (Dextrose 50 % 25 Gm/50 Ml Syringe) 25 gm IVPUSH Q15M PRN; Protocol PRN Reason: per Hypoglycemia Standing Ord. Dolutegravir Sodium (Dolutegravir Sodium 50 Mg Tablet) 50 mg PO DAILY [facility] Last Admin: 12/20/22 07:57 Dose: 50 mg Documented By: ABAD Enoxaparin Sodium (Enoxaparin Sodium 30 Mg/0.3 Ml Syringe) 30 mg SUBCUT Q24H [facility] Last Admin: 12/19/22 09:04 Dose: 30 mg Documented By: JEANINE Gabapentin (Gabapentin 600 Mg Tablet) 600 mg PO BID [facility] Last Admin: 12/20/22 07:55 Dose: 600 mg Documented By: ABAD Glucose (Glucose Gel 15 Gm Gel..Gram.) 15 gm PO Q15M PRN; Protocol PRN Reason: per Hypoglycemia Standing Ord. Hydromorphone HCl (Hydromorphone Hcl 0.5 Mg/0.5 Ml Syringe) 0.5 mg IVPUSH Q3H PRN; Protocol PRN Reason: Pain, Severe (Pain Scale 7-10) Last Admin: 12/20/22 05:56 Dose: 0.5 mg Documented By: HERMAN Lactated Ringer's (Lr) 1,000 mls @ 100 mls/hr IVCONT .Q10H [facility] Last Admin: 12/19/22 23:46 Dose: 100 mls/hr Documented By: HERMAN Acetaminophen (Ofirmev) 1,000 mg in 100 mls @ 400 mls/hr IV Q6H [facility] Last Infusion: 12/20/22 03:08 Dose: 0 mls/hr Documented By: HERMAN Lamivudine (Lamivudine 150 Mg Tablet) 300 mg PO DAILY [facility] Last Admin: 12/20/22 07:53 Dose: 300 mg Documented By: ABAD Loratadine (Loratadine 10 Mg Tablet) 10 mg PO DAILY PRN PRN Reason: Allergic Symptoms Lorazepam (Lorazepam 2 Mg/Ml Vial) 0.5 mg IVPUSH Q8H PRN PRN Reason: Anxiety Stop: 12/21/22 17:54 Last Admin: 12/20/22 02:20 Dose: 0.5 mg Documented By: HERMAN Omeprazole (Omeprazole 40 Mg Capsule.) 40 mg PO BID@0630,1630 [facility] Last Admin: 12/20/22 05:50 Dose: 40 mg Documented By: HERMAN Ondansetron HCl (Ondansetron Hcl 4 Mg/2 Ml Vial) 4 mg IVPUSH Q8H PRN PRN Reason: Nausea and Vomiting Last Admin: 12/19/22 12:59 Dose: 4 mg Documented By: JEANINE Sertraline HCl (Sertraline Hcl 25 Mg Tablet) 75 mg PO DAILY [facility] Last Admin: 12/20/22 07:52 Dose: 75 mg Documented By: ABAD Sodium Chloride (0.9 % Sodium Chloride Flush 3 Ml Syringe) 3 ml IVFLUSH QSHIFT [facility] Last Admin: 12/20/22 07:56 Dose: 3 ml Documented By: ABAD Trazodone HCl (Trazodone Hcl 100 Mg Tablet) 100 mg PO BEDTIME PRN PRN Reason: Sleep Last Admin: 12/19/22 20:44 Dose: 100 mg Documented By: HERMAN Zolpidem Tartrate (Zolpidem Tartrate 5 Mg Tablet) 5 mg PO BEDTIME PRN PRN Reason: Insomnia Labs 12/20/22 05:07 12/20/22 05:07 Labs: Laboratory Results - last 24 hr 12/19/22 12/19/22 12/19/22 11:14 16:43 20:21 MCV MCH MCHC RDW Plt Count MPV Absolute Nucleated RBC Nucleated RBC % (auto) Anion Gap Estim Creat Clear Calc Estimated GFR POC Glucose 168 H 185 H 157 H Random Glucose Calcium 12/20/22 12/20/22 12/20/22 05:07 05:07 07:08 MCV 102.6 H MCH 33.4 H MCHC 32.6 RDW 13.7 Plt Count 273 MPV 11.2 Absolute Nucleated RBC 0.020 H Nucleated RBC % (auto) 0.2 Anion Gap 14 Estim Creat Clear Calc 37.1 Estimated GFR 35 POC Glucose 153 H Random Glucose 147 H Calcium 9.2 Procedures Date of Service Date of Service: 12/20/22 Progress Note: A&P Assessment and plan (1) Small bowel obstruction: Status: Acute Plan Overall patient is improved today with improved labs, normal WBC, and decreased abdominal pain. Ostomy producing clear liquid stool. Discussed possible exploratory laparotomy with lysis of adhesions vs. continued observation. Pain seems somewhat improved, therefore will continue bowel rest, NGT. Encouraged OOB and ambulation today. Time Spent With Patient Time: Total time managing care of this patient today ____ minutes. Quality Stroke Does the patient have a stroke diagnosis?: No VTE Prior VTE?: No VTE Risk Level:: Surgical - moderate VTE Device Contraindication: N/A - Device Ordered VTE Drug Contraindication: N/A - Med Ordered
--- NOTE | 2022-12-20 10:22 | P.CONAN_ITS ---
[facility] Active Problems Active Problems: All Active Problems (Updated 12/18/22 @ 09:57 by BUTCH Elmore) Small bowel obstruction (Acute) Acute hyperkalemia (Acute) Leukocytosis (Acute) COVID-19 (Acute) Acute kidney injury superimposed on CKD (Acute) Duodenal ulcer (Acute) Severe anemia (Acute) Past Medical History Medical History Chronic hepatitis Chronic use of nonprescription opiate drugs CKD (chronic kidney disease) Diabetes mellitus HIV (human immunodeficiency virus infection) HTN (hypertension), benign Hyperlipemia Pancreatitis Ulcerative colitis Family History Family history of problems with anesthesia: No Surgical History Surgical History H/O colectomy History of total left knee replacement (TKR) Hx of cholecystectomy Hx of splenectomy Status post right hip replacement History of Problems with Anesthesia: No Social History Social History Household Members: None Housing: Apartment Do you presently have visiting nurse or other home services: No Alcohol intake: never Patient Tobacco Use Status: Former Tobacco user Tobacco use type: Cigarette Advance Directives Date on File: 06/07/21 service: No Current occupational status: disabled Meds Allergies Allergy/AdvReac Type Severity Reaction Status Date / Time ampicillin [AMPICILLIN] Allergy Mild HIVES Verified 06/07/21 12:29 aspirin [ASPIRIN] Allergy Unknown RASH Verified 06/07/21 12:29 Active Medications: Current Medications Albuterol Sulfate (Albuterol Sulfate 90 Mcg 8 Gm Inhaler) 2 puff INHALE RQID PRN PRN Reason: Respiratory Distress Amlodipine Besylate (Amlodipine Besylate 5 Mg Tablet) 5 mg PO DAILY [facility]; Protocol Last Admin: 12/20/22 07:54 Dose: 5 mg Buprenorphine/Naloxone (Buprenorphine/Naloxone 8/2 Mg Film) 1 film SUBLINGUAL TID [facility] Last Admin: 12/20/22 07:55 Dose: 1 film Buspirone HCl (Buspirone Hcl 5 Mg Tablet) 5 mg PO TID [facility] Last Admin: 12/20/22 07:54 Dose: 5 mg Carvedilol (Carvedilol 12.5 Mg Tablet) 12.5 mg PO BID [facility]; Protocol Last Admin: 12/20/22 07:52 Dose: 12.5 mg Dextrose (Dextrose 50 % 25 Gm/50 Ml Syringe) 25 gm IVPUSH Q15M PRN; Protocol PRN Reason: per Hypoglycemia Standing Ord. Dolutegravir Sodium (Dolutegravir Sodium 50 Mg Tablet) 50 mg PO DAILY [facility] Last Admin: 12/20/22 07:57 Dose: 50 mg Enoxaparin Sodium (Enoxaparin Sodium 30 Mg/0.3 Ml Syringe) 30 mg SUBCUT Q24H [facility] Last Admin: 12/19/22 09:04 Dose: 30 mg Gabapentin (Gabapentin 600 Mg Tablet) 600 mg PO BID [facility] Last Admin: 12/20/22 07:55 Dose: 600 mg Glucose (Glucose Gel 15 Gm Gel..Gram.) 15 gm PO Q15M PRN; Protocol PRN Reason: per Hypoglycemia Standing Ord. Hydromorphone HCl (Hydromorphone Hcl 0.5 Mg/0.5 Ml Syringe) 0.5 mg IVPUSH Q3H PRN; Protocol PRN Reason: Pain, Severe (Pain Scale 7-10) Last Admin: 12/20/22 09:29 Dose: 0.5 mg Lactated Ringer's (Lr) 1,000 mls @ 100 mls/hr IVCONT .Q10H [facility] Last Infusion: 12/20/22 09:46 Dose: Infused Acetaminophen (Ofirmev) 1,000 mg in 100 mls @ 400 mls/hr IV Q6H [facility] Last Infusion: 12/20/22 03:08 Dose: Infused Lamivudine (Lamivudine 150 Mg Tablet) 300 mg PO DAILY [facility] Last Admin: 12/20/22 07:53 Dose: 300 mg Loratadine (Loratadine 10 Mg Tablet) 10 mg PO DAILY PRN PRN Reason: Allergic Symptoms Lorazepam (Lorazepam 2 Mg/Ml Vial) 0.5 mg IVPUSH Q8H PRN PRN Reason: Anxiety Stop: 12/21/22 17:54 Last Admin: 12/20/22 02:20 Dose: 0.5 mg Omeprazole (Omeprazole 40 Mg Capsule.Dr) 40 mg PO BID@0630,1630 [facility] Last Admin: 12/20/22 05:50 Dose: 40 mg Ondansetron HCl (Ondansetron Hcl 4 Mg/2 Ml Vial) 4 mg IVPUSH Q8H PRN PRN Reason: Nausea and Vomiting Last Admin: 12/19/22 12:59 Dose: 4 mg Sertraline HCl (Sertraline Hcl 25 Mg Tablet) 75 mg PO DAILY [facility] Last Admin: 12/20/22 07:52 Dose: 75 mg Sodium Chloride (0.9 % Sodium Chloride Flush 3 Ml Syringe) 3 ml IVFLUSH QSHIFT [facility] Last Admin: 12/20/22 07:56 Dose: 3 ml Trazodone HCl (Trazodone Hcl 100 Mg Tablet) 100 mg PO BEDTIME PRN PRN Reason: Sleep Last Admin: 12/19/22 20:44 Dose: 100 mg Zolpidem Tartrate (Zolpidem Tartrate 5 Mg Tablet) 5 mg PO BEDTIME PRN PRN Reason: Insomnia Home Medications Medication Instructions Recorded Confirmed Last Taken Type albuterol sulfate 90 mcg/actuation 2 puff inhalation QID PRN 06/06/21 12/18/22 2 Days Ago History aerosol inhaler Respiratory Distress ~12/16/22 buprenorphine 8 mg-naloxone 2 mg 1 film sublingual TID 06/06/21 12/18/22 2 Days Ago History sublingual film ~12/16/22 buspirone 5 mg tablet 5 mg PO TID 06/06/21 12/18/22 2 Days Ago History ~12/16/22 carvedilol 12.5 mg tablet 12.5 mg PO BID 06/06/21 12/18/22 2 Days Ago History ~12/16/22 cetirizine 10 mg tablet 10 mg PO DAILY PRN Allergic 06/06/21 12/18/22 2 Days Ago History Symptoms ~12/16/22 gabapentin 600 mg tablet 600 mg PO BID 06/06/21 12/18/22 2 Days Ago History ~12/16/22 hydrochlorothiazide 12.5 mg tablet 12.5 mg PO DAILY 06/06/21 12/18/22 2 Days Ago History ~12/16/22 pravastatin 40 mg tablet 40 mg PO BEDTIME 06/06/21 12/18/22 2 Days Ago History ~12/16/22 sertraline 50 mg tablet 75 mg PO DAILY 06/06/21 12/18/22 2 Days Ago History ~12/16/22 trazodone 100 mg tablet 100 mg PO BEDTIME PRN Sleep 06/06/21 12/18/22 2 Days Ago History ~12/16/22 amlodipine 5 mg tablet 5 mg PO DAILY 12/18/22 12/18/22 2 Days Ago History ~12/16/22 dolutegravir 50 mg-lamivudine 300 1 tab PO DAILY 12/18/22 12/18/22 2 Days Ago History mg tablet (Dovato) ~12/16/22 dulaglutide 0.75 mg/0.5 mL 0.75 mg subcut [place] 12/18/22 12/18/22 2 Days Ago History subcutaneous pen injector ~12/16/22 (Trulicity) empagliflozin 10 mg tablet 10 mg PO DAILY 12/18/22 12/18/22 2 Days Ago History (Jardiance) ~12/16/22 loperamide 2 mg tablet 2 mg PO Q6H PRN Diarrhea 12/18/22 12/18/22 2 Days Ago History (Anti-Diarrheal (loperamide)) ~12/16/22 Exam Exam Date and Time: December 20, 2022 1022 Height,Weight and Vital Signs: Height 5 ft 6 in Weight 93.9 kg Last Vital Signs Temp 97.5 F 12/20/22 07:43 Pulse 63 12/20/22 07:43 Resp 18 12/20/22 07:43 BP 181/85 H 12/20/22 07:43 Pulse Ox 91 L 12/20/22 07:43 O2 Del Method Room Air 12/20/22 07:43 O2 Flow Rate 2 12/18/22 15:36 Pertinent Lab Results Pertinent Lab Results: Laboratory Tests 12/18/22 12/18/22 12/18/22 06:07 06:07 06:07 WBC 18.6 H RBC 4.09 L D Hgb 14.0 D Hct 41.2 L D MCV 100.7 H MCH 34.2 H MCHC 34.0 RDW 13.7 Plt Count 348 D MPV 10.5 Immature Gran % (Auto) 0.3 Neut % (Auto) 68.5 Lymph % (Auto) 21.1 Edgar % (Auto) 8.1 Eos % (Auto) 1.5 Baso % (Auto) 0.5 Lymph # (Auto) 3.9 Edgar # (Auto) 1.5 H Eos # (Auto) 0.3 Baso # (Auto) 0.1 Abs Immat Gran (auto) 0.06 H Absolute Neuts (auto) 12.8 H Absolute Nucleated RBC 0.030 H Nucleated RBC % (auto) 0.2 Smear Tech's Comments VERIFIED Sodium 141 Potassium 4.3 Chloride 105 Carbon Dioxide 24 Anion Gap 16 BUN 44 H Creatinine 2.97 H Estim Creat Clear Calc 23.7 Estimated GFR 21 POC Glucose Random Glucose 216 H Calcium 10.4 H D Total Bilirubin 0.3 Direct Bilirubin 0.1 AST 17 ALT 21 Alkaline Phosphatase 83 Troponin I High Sens 18.2 Total Protein 7.9 Albumin 4.2 Lipase 30 Urine Color Urine Appearance Urine pH Ur Specific [place] Urine Protein Urine Glucose (UA) Urine Ketones Urine Blood Urine Nitrite Ur Leukocyte Esterase Urine RBC Urine WBC Ur Squamous Epith Cells Urine Bacteria Hyaline Casts 12/18/22 12/18/22 12/18/22 10:49 16:40 20:16 WBC RBC Hgb Hct MCV MCH MCHC RDW Plt Count MPV Immature Gran % (Auto) Neut % (Auto) Lymph % (Auto) Edgar % (Auto) Eos % (Auto) Baso % (Auto) Lymph # (Auto) Edgar # (Auto) Eos # (Auto) Baso # (Auto) Abs Immat Gran (auto) Absolute Neuts (auto) Absolute Nucleated RBC Nucleated RBC % (auto) Smear Tech's Comments Sodium Potassium Chloride Carbon Dioxide Anion Gap BUN Creatinine Estim Creat Clear Calc Estimated GFR POC Glucose 162 H 132 H Random Glucose Calcium Total Bilirubin Direct Bilirubin AST ALT Alkaline Phosphatase Troponin I High Sens Total Protein Albumin Lipase Urine Color Yellow Urine Appearance Clear Urine pH 5.5 Ur Specific [place] 1.015 Urine Protein 30 (1+) H Urine Glucose (UA) 500 H Urine Ketones Negative Urine Blood Trace H Urine Nitrite Negative Ur Leukocyte Esterase Negative Urine RBC 0-2 Urine WBC 0-5 Ur Squamous Epith Cells 0-2 Urine Bacteria None Seen Hyaline Casts 0-2 12/19/22 12/19/22 12/19/22 05:27 05:27 07:22 WBC 20.8 H RBC 4.08 L Hgb 14.0 Hct 42.1 MCV 103.2 H MCH 34.3 H MCHC 33.3 RDW 13.8 Plt Count 302 MPV 11.2 Immature Gran % (Auto) 0.4 Neut % (Auto) 82.9 H Lymph % (Auto) 7.2 L Edgar % (Auto) 9.0 Eos % (Auto) 0.2 Baso % (Auto) 0.3 Lymph # (Auto) 1.5 Edgar # (Auto) 1.9 H Eos # (Auto) 0.0 Baso # (Auto) 0.1 Abs Immat Gran (auto) 0.08 H Absolute Neuts (auto) 17.2 H Absolute Nucleated RBC 0.000 Nucleated RBC % (auto) 0.0 Smear Tech's Comments VERIFIED Sodium 141 Potassium 4.0 Chloride 104 Carbon Dioxide 26 Anion Gap 15 BUN 29 H Creatinine 1.97 H Estim Creat Clear Calc 35.8 Estimated GFR 33 POC Glucose 180 H Random Glucose 163 H Calcium 9.4 D Total Bilirubin Direct Bilirubin AST ALT Alkaline Phosphatase Troponin I High Sens Total Protein Albumin Lipase Urine Color Urine Appearance Urine pH Ur Specific [place] Urine Protein Urine Glucose (UA) Urine Ketones Urine Blood Urine Nitrite Ur Leukocyte Esterase Urine RBC Urine WBC Ur Squamous Epith Cells Urine Bacteria Hyaline Casts 12/19/22 12/19/22 12/19/22 11:14 16:43 20:21 WBC RBC Hgb Hct MCV MCH MCHC RDW Plt Count MPV Immature Gran % (Auto) Neut % (Auto) Lymph % (Auto) Edgar % (Auto) Eos % (Auto) Baso % (Auto) Lymph # (Auto) Edgar # (Auto) Eos # (Auto) Baso # (Auto) Abs Immat Gran (auto) Absolute Neuts (auto) Absolute Nucleated RBC Nucleated RBC % (auto) Smear Tech's Comments Sodium Potassium Chloride Carbon Dioxide Anion Gap BUN Creatinine Estim Creat Clear Calc Estimated GFR POC Glucose 168 H 185 H 157 H Random Glucose Calcium Total Bilirubin Direct Bilirubin AST ALT Alkaline Phosphatase Troponin I High Sens Total Protein Albumin Lipase Urine Color Urine Appearance Urine pH Ur Specific [place] Urine Protein Urine Glucose (UA) Urine Ketones Urine Blood Urine Nitrite Ur Leukocyte Esterase Urine RBC Urine WBC Ur Squamous Epith Cells Urine Bacteria Hyaline Casts 12/20/22 12/20/22 12/20/22 05:07 05:07 07:08 WBC 10.1 RBC 3.89 L Hgb 13.0 L Hct 39.9 L MCV 102.6 H MCH 33.4 H MCHC 32.6 RDW 13.7 Plt Count 273 MPV 11.2 Immature Gran % (Auto) Neut % (Auto) Lymph % (Auto) Edgar % (Auto) Eos % (Auto) Baso % (Auto) Lymph # (Auto) Edgar # (Auto) Eos # (Auto) Baso # (Auto) Abs Immat Gran (auto) Absolute Neuts (auto) Absolute Nucleated RBC 0.020 H Nucleated RBC % (auto) 0.2 Smear Tech's Comments Sodium 139 Potassium 3.6 Chloride 102 Carbon Dioxide 27 Anion Gap 14 BUN 32 H Creatinine 1.90 H Estim Creat Clear Calc 37.1 Estimated GFR 35 POC Glucose 153 H Random Glucose 147 H Calcium 9.2 Total Bilirubin Direct Bilirubin AST ALT Alkaline Phosphatase Troponin I High Sens Total Protein Albumin Lipase Urine Color Urine Appearance Urine pH Ur Specific [place] Urine Protein Urine Glucose (UA) Urine Ketones Urine Blood Urine Nitrite Ur Leukocyte Esterase Urine RBC Urine WBC Ur Squamous Epith Cells Urine Bacteria Hyaline Casts Airway Mallampati Class: II TM Dist: >3cm Neck ROM: Limited Heart: rrr Lungs: cta Assessment and Plan Assessment Anesthesia Assessment: Anesthesia Plan Discussed and Chart Reviewed Final Anesthetic Review Family History of Problems with Anesthesia: No History of Problems with Anesthesia: No NPO: Yes ASA Class: III and Emergency Final Preanesthetic Review: No Changes in Pt Med Stat, Meds/Allgs Chart Reviewed, Consent Obtained/Reviewed and Anes Risks/Benef Reviewed Patient Risk: Intermediate Procedure Risk: High Anesthetic Plan Anesthetic Plan: GA and Agree w/ Assess. and Plan Disposition: Standard PACU
[2022-12-20] MEDS: Famotidine/PF 20 MG/2 ML VIAL IVPUSH (10:36)
--- NOTE | 2022-12-20 10:44 | P.CDIM_ITS ---
PROVIDER RESPONSE TEXT: To clarify, the appropriate diagnosis supported by the clinical indicators: Partial SBO QUERY TEXT: PHYSICIAN'S DOCUMENTATION REQUEST Date of Query: 12/19/2022 01:58 PM EDT Patient Name: Dhiraj Huntley Admit Date: 12/18/2022 Dear Jacky Vo, A review of the medical record indicates additional documentation may be needed. Please review below and update the documentation accordingly. Clinical Indicators: The following diagnoses or signs and symptoms were noted in the patient record: Per General Surgery H&P 12/18/22: CT abdomen and pelvis does reveal dilated loops of small bowel proximally with air-fluid level sugges tive of a proximal small bowel obstruction without a clear transition point. He is being admitted to the surgical service for NG tube decompression. Based on the above, could you clarify the appropriate diagnosis, if significant, that supports the ab ove abnormalities and additional evaluation, monitoring, and/or treatment rendered: Complete SBO Partial SBO Other (explain)Clinically unable to determine (explain)Thank you, Nhung Lozano RN Use of terms such as suspected, likely, concern for, or probable (associated with a specific diagnosi s that is being evaluated, monitored, or treated as if it exists) are acceptable and can be coded in the inpatient se tting, when documented at the time of discharge. Please use your independent medical judgment in providing your response. THIS QUERY IS PART OF THE PERMANENT MEDICAL RECORD
[2022-12-20 10:51] LABS: Glucose, Whole Blood 155 mg/dL (60-115)
--- NOTE | 2022-12-20 10:51 | PC.NURSE ---
o2 sat down to 88-90% when falling asleep. o2 2l nc applied
[2022-12-20] MEDS: ceFAZolin Sodium/Dextrose,Iso 2 GM/50 ML PIGGYBACK IV (11:36)
--- NOTE | 2022-12-20 12:14 | P.PNIM_ITS ---
Subjective Subjective Date of Service: 12/21/22 Interval History: sbo,htn , ckd Review of Systems went for surgery Physical Exam Vital Signs: Vital Signs: Last Vital Signs Temp 98.4 F 12/20/22 10:28 Pulse 57 12/20/22 10:28 Resp 18 12/20/22 10:28 BP 178/86 H 12/20/22 10:28 Pulse Ox 92 12/20/22 10:28 O2 Del Method Room Air 12/20/22 10:28 O2 Flow Rate 2 12/18/22 15:36 BMI result Body Mass Index 33.4 Appearance: Alert.? Oriented X3.? not in distress.? cvs: rrr, [id number]. res: clear to auscultation ,no rhonchii or wheezing abd: ext pulses present , no cyanosis. neuro: axo3 , nonfocal. Objective Data Active Medications Albuterol Sulfate (Albuterol Sulfate 90 Mcg 8 Gm Inhaler) 2 puff INHALE RQID PRN PRN Reason: Respiratory Distress Amlodipine Besylate (Amlodipine Besylate 5 Mg Tablet) 5 mg PO DAILY [facility]; Protocol Last Admin: 12/20/22 07:54 Dose: 5 mg Documented By: ABAD Buprenorphine/Naloxone (Buprenorphine/Naloxone 8/2 Mg Film) 1 film SUBLINGUAL TID [facility] Last Admin: 12/20/22 07:55 Dose: 1 film Documented By: ABAD Buspirone HCl (Buspirone Hcl 5 Mg Tablet) 5 mg PO TID [facility] Last Admin: 12/20/22 07:54 Dose: 5 mg Documented By: ABAD Carvedilol (Carvedilol 12.5 Mg Tablet) 12.5 mg PO BID [facility]; Protocol Last Admin: 12/20/22 07:52 Dose: 12.5 mg Documented By: ABAD Dextrose (Dextrose 50 % 25 Gm/50 Ml Syringe) 25 gm IVPUSH Q15M PRN; Protocol PRN Reason: per Hypoglycemia Standing Ord. Dolutegravir Sodium (Dolutegravir Sodium 50 Mg Tablet) 50 mg PO DAILY [facility] Last Admin: 12/20/22 07:57 Dose: 50 mg Documented By: ABAD Enoxaparin Sodium (Enoxaparin Sodium 30 Mg/0.3 Ml Syringe) 30 mg SUBCUT Q24H [facility] Last Admin: 12/19/22 09:04 Dose: 30 mg Documented By: JEANINE Gabapentin (Gabapentin 600 Mg Tablet) 600 mg PO BID [facility] Last Admin: 12/20/22 07:55 Dose: 600 mg Documented By: ABAD Glucose (Glucose Gel 15 Gm Gel..Gram.) 15 gm PO Q15M PRN; Protocol PRN Reason: per Hypoglycemia Standing Ord. Hydromorphone HCl (Hydromorphone Hcl 0.5 Mg/0.5 Ml Syringe) 0.5 mg IVPUSH Q3H PRN; Protocol PRN Reason: Pain, Severe (Pain Scale 7-10) Last Admin: 12/20/22 09:29 Dose: 0.5 mg Documented By: ABAD Lactated Ringer's (Lr) 1,000 mls @ 100 mls/hr IVCONT .Q10H [facility] Last Infusion: 12/20/22 09:46 Dose: 0 mls/hr Documented By: ABAD Acetaminophen (Ofirmev) 1,000 mg in 100 mls @ 400 mls/hr IV Q6H [facility] Last Infusion: 12/20/22 03:08 Dose: 0 mls/hr Documented By: HERMAN Lamivudine (Lamivudine 150 Mg Tablet) 300 mg PO DAILY [facility] Last Admin: 12/20/22 07:53 Dose: 300 mg Documented By: ABAD Loratadine (Loratadine 10 Mg Tablet) 10 mg PO DAILY PRN PRN Reason: Allergic Symptoms Lorazepam (Lorazepam 2 Mg/Ml Vial) 0.5 mg IVPUSH Q8H PRN PRN Reason: Anxiety Stop: 12/21/22 17:54 Last Admin: 12/20/22 02:20 Dose: 0.5 mg Documented By: HERMAN Omeprazole (Omeprazole 40 Mg Capsule.Dr) 40 mg PO BID@0630,1630 [facility] Last Admin: 12/20/22 05:50 Dose: 40 mg Documented By: HERMAN Ondansetron HCl (Ondansetron Hcl 4 Mg/2 Ml Vial) 4 mg IVPUSH Q8H PRN PRN Reason: Nausea and Vomiting Last Admin: 12/19/22 12:59 Dose: 4 mg Documented By: JEANINE Sertraline HCl (Sertraline Hcl 25 Mg Tablet) 75 mg PO DAILY [facility] Last Admin: 12/20/22 07:52 Dose: 75 mg Documented By: ABAD Sodium Chloride (0.9 % Sodium Chloride Flush 3 Ml Syringe) 3 ml IVFLUSH QSHIFT [facility] Last Admin: 12/20/22 07:56 Dose: 3 ml Documented By: ABAD Trazodone HCl (Trazodone Hcl 100 Mg Tablet) 100 mg PO BEDTIME PRN PRN Reason: Sleep Last Admin: 12/19/22 20:44 Dose: 100 mg Documented By: HERMAN Zolpidem Tartrate (Zolpidem Tartrate 5 Mg Tablet) 5 mg PO BEDTIME PRN PRN Reason: Insomnia Labs 12/20/22 05:07 12/20/22 05:07 Labs: Laboratory Results - last 24 hr 12/19/22 12/19/22 12/20/22 16:43 20:21 05:07 MCV 102.6 H MCH 33.4 H MCHC 32.6 RDW 13.7 Plt Count 273 MPV 11.2 Absolute Nucleated RBC 0.020 H Nucleated RBC % (auto) 0.2 Anion Gap Estim Creat Clear Calc Estimated GFR POC Glucose 185 H 157 H Random Glucose Calcium Blood Type Antibody Screen 12/20/22 12/20/22 12/20/22 05:07 07:08 09:53 MCV MCH MCHC RDW Plt Count MPV Absolute Nucleated RBC Nucleated RBC % (auto) Anion Gap 14 Estim Creat Clear Calc 37.1 Estimated GFR 35 POC Glucose 153 H Random Glucose 147 H Calcium 9.2 Blood Type O Positive Antibody Screen NEGATIVE 12/20/22 10:45 MCV MCH MCHC RDW Plt Count MPV Absolute Nucleated RBC Nucleated RBC % (auto) Anion Gap Estim Creat Clear Calc Estimated GFR POC Glucose 155 H Random Glucose Calcium Blood Type Antibody Screen Assessment and Plan (1) Small bowel obstruction: Status: Acute Plan 72-year-old male with history of ank-ayxndyl-ndookqqrr type 2 diabetes, HIV [place]ov[place], hypertension, ulcerative colitis s/p colectomy with ileostomy, GERD, and mood disorder admitted to General surgery for conservative management of small-bowel obstruction with consult placed to hospitalist service for medical management. Acute SBO -npo with NG tube in place, receiving IV fluids, 650 NG output this morning, scheduled for KUB treatment plan as per General surgery ? chronically elevated leukocytosis, normal UA, normal chest x-ray, CT abdomen pelvis not suggestive of? infection. [id number] type 2 diabetes -POC glucose Less than 200 -advanced diabetic diet per General surgery -hold on Humalog per sliding scale given NPO status, hold Jardiance acute on chronic kidney disease? stage III continue IV fluid renal function trending down HIV -last viral load undetectable, last CD4 count greater than 900 -continue dovato hypertension -continue carvedilol, amlodipine, hold hydrochlorothiazide setting of MARY JO mood disorder -continue Zoloft, trazodone, BuSpar, resume? gabapentin DVT prophylaxis? on Lovenox ?dispo-as per primary team. Time Spent With Patient Time: Total time managing care of this patient today ____ minutes. Quality Stroke Does the patient have a stroke diagnosis?: No VTE Prior VTE?: No VTE Risk Level:: Surgical - moderate VTE Device Contraindication: N/A - Device Ordered VTE Drug Contraindication: N/A - Med Ordered
--- NOTE | 2022-12-20 14:56 | W.PM.OPN ---
Operative Note Operative Note Date of Service: 12/20/22 Narrative: Preoperative diagnosis:Small-bowel obstruction, history of ulcer colitis with total colectomy, ileostomy Postoperative diagnosis: same with density adhesions Procedure: exploratory laparotomy, extensive lysis of adhesions , small-bowel resection Surgeon: Jacky Vo MD Coverage Specialist Rn: Sophie Zavaleta PA-C Anesthesia: general endotracheal (Dr. Jones) Indications for procedure: 72-year-old male patient history of ulcerative colitis previous history of total abdominal colectomy and ileostomy presenting with recurrent episode of abdominal pain, nausea and vomiting found to have small-bowel obstruction by CT scan. After An attempt at non operative management with nasogastric deep compression decision was made to proceed to exploratory laparotomy with lysis of adhesions due to persistent pain and abdominal distension. Operative findings: Extensive adhesions throughout the abdominal especially in the pelvis. Decompressed small bowel noted distally extending to the ostomy. No infarcted bowel although severely stricture bowel noted within the pelvis. Small-bowel resection performed. Specimen: small-bowel Estimated blood loss: 100 mL Complications: none Procedure details: patient was brought to the OR placed in a supine position. After administering general anesthesia patient's abdomen was prepped with ChloraPrep and draped in a sterile fashion. A surgical time-out was called the consent confirmed. Patient received preoperative antibiotics and Venodyne boots were in place. Local anesthesia consisting of 0.5% Sensorcaine with epinephrine was infiltrated in the midline over the previous incision. Midline incision was then made and carried out through subcutaneous tissue, through linea alba into the peritoneal cavity. Immediately dense adhesions were identified. Extensive lysis of adhesions was required. Dilated proximal small bowel was identified. This was then dissected distally and a single loop noted to be densely adherent into the pelvis. This was dissected with much difficulty and subsequently brought up through the incision. Small bowel distal to this was noted to be decompressed. A small-bowel resection was performed at this loop. Mesentery was divided using a hemostat and a EHCO 60 stapler with a blue load used to divide proximal and distal to the area obstruction. The mesentery was then divided using LigaSure. Specimens passed off table and sent to pathology for further examination. A functional end-to-end anastomosis then performed using a ECHO stapler to anastomose the proximal distal loops of small bowel. The enterotomies were then closed using a TA 60 blue stapler. The anastomosis was then reinforced using Lembert 3-0 Surgilon sutures. A suture was also placed at the crotch of the incision to prevent twisting. Remainder of the small bowel was run and no other areas of obstruction could be identified. Abdomen was then thoroughly irrigated with Irrisept followed by saline solution. Hemostasis was assured using electrocautery. The small-bowel was returned to the abdominal cavity in a sinusoidal fashion to prevent further obstruction. Fascia was then closed using a running looped PDS 0 suture. Additional local was infiltrated into the subcutaneous tissue. Dermis was then reapproximated using interrupted 3-0 Polysorb sutures. Skin was closed using skin radha. Sterile dressings were then applied and a new ostomy appliance applied. The patient tolerated the procedure well was transferred to PACU in stable condition. Sponge, instrument, needle counts reported as correct.
[2022-12-20] MEDS: hydrALAZINE HCl 20 MG/ML VIAL 10 MG IVPUSH ×2 (15:38→16:00)
[2022-12-20 15:41] LABS: ABG HCO3 23 mmol/L (22-26); ABG pCO2 26 mmHg (32-45); ABG pH 7.54 (7.35-7.45); ABG pO2 107 mmHg (83-108)
[2022-12-20] MEDS: fentaNYL citrate/PF 100 MCG/2 ML VIAL 50 MCG IVPUSH ×2 (17:20→17:40)
--- NOTE | 2022-12-20 17:28 | P.CONCC_ITS ---
History of Present Illness Data of Consult Service Date: 12/20/22 Requesting physician: Drew Jones Primary Care Provider: Unknown Physician HPI Reason for consult: postoperative respiratory insufficiency 72-year-old male with a remote history of IV drug abuse. Twenty years ago resulting in HIV he is on antiretroviral regimen last the viral load count was undetectable and his last CD4 count was greater than 900 and he is status post colectomy with ileostomy for ulcerative colitis presents with small-bowel obstruction and he failed to respond to conservative therapy with NG suction and went in and had a very long complex case with lysis of adhesions to relieve the obstruction and it did have to have some resection and reanastomosis of the bowel came out still on the ventilator and just needed a little bit more time to be able to wean from the ventilator he apparently been given a rather large dose of of fentanyl postoperatively but on the pressure support of 5/5 for an hour he was consistently pulling 550-650 cc tidal volumes end-tidal CO2 is which were initially 30 and comfortable actually dropped as low as 24 his respiratory rate was very low teens minute ventilatory requirement was under 10 L he was on an FiO2 that was barely 30% he clearly qualify for it in for extubation which we did without complication and just simply placed him on nasal cannula Underlying hypertensive and [id number] type 2 diabetic as well with resolving acute on chronic renal insufficiency Bedside echo showing normal LV and RV function no significant IVC distension and no primary valve or pericardial disease Review of Systems Review of Systems: Yes Unobtainable due to mental status PMFSH Past Medical History Medical History Chronic hepatitis Chronic use of nonprescription opiate drugs CKD (chronic kidney disease) Diabetes mellitus HIV (human immunodeficiency virus infection) HTN (hypertension), benign Hyperlipemia Pancreatitis Ulcerative colitis Surgical History Surgical History H/O colectomy History of total left knee replacement (TKR) Hx of cholecystectomy Hx of splenectomy Status post right hip replacement Social History Social History Household Members: None Housing: Apartment Do you presently have visiting nurse or other home services: No Alcohol intake: never Patient Tobacco Use Status: Former Tobacco user Quit Date: 15 yrs ago Tobacco use type: Cigarette Advance Directives Date on File: 06/07/21 service: No Current occupational status: disabled Meds Allergies Allergy/AdvReac Type Severity Reaction Status Date / Time ampicillin [AMPICILLIN] Allergy Mild HIVES Verified 06/07/21 12:29 aspirin [ASPIRIN] Allergy Unknown RASH Verified 06/07/21 12:29 Active Medications: Current Medications Albuterol Sulfate (Albuterol Sulfate 90 Mcg 8 Gm Inhaler) 2 puff INHALE RQID PRN PRN Reason: Respiratory Distress Amlodipine Besylate (Amlodipine Besylate 5 Mg Tablet) 5 mg PO DAILY [facility]; Protocol Last Admin: 12/20/22 07:54 Dose: 5 mg Buprenorphine/Naloxone (Buprenorphine/Naloxone 8/2 Mg Film) 1 film SUBLINGUAL TID [facility] Last Admin: 12/20/22 07:55 Dose: 1 film Buspirone HCl (Buspirone Hcl 5 Mg Tablet) 5 mg PO TID [facility] Last Admin: 12/20/22 07:54 Dose: 5 mg Carvedilol (Carvedilol 12.5 Mg Tablet) 12.5 mg PO BID [facility]; Protocol Last Admin: 12/20/22 07:52 Dose: 12.5 mg Dextrose (Dextrose 50 % 25 Gm/50 Ml Syringe) 25 gm IVPUSH Q15M PRN; Protocol PRN Reason: per Hypoglycemia Standing Ord. Dolutegravir Sodium (Dolutegravir Sodium 50 Mg Tablet) 50 mg PO DAILY [facility] Last Admin: 12/20/22 07:57 Dose: 50 mg Enoxaparin Sodium (Enoxaparin Sodium 30 Mg/0.3 Ml Syringe) 30 mg SUBCUT Q24H [facility] Last Admin: 12/19/22 09:04 Dose: 30 mg Fentanyl (Fentanyl Citrate/Pf 100 Mcg/2 Ml Vial) 50 mcg IVPUSH Q5M PRN; Protocol PRN Reason: Pain, Severe (Pain Scale 7-10) Last Admin: 12/20/22 17:20 Dose: 50 mcg Fentanyl (Fentanyl Citrate/Pf 100 Mcg/2 Ml Vial) 50 mcg IVPUSH Q5M PRN; Protocol PRN Reason: Pain, Severe (Pain Scale 7-10) Gabapentin (Gabapentin 600 Mg Tablet) 600 mg PO BID [facility] Last Admin: 12/20/22 07:55 Dose: 600 mg Glucose (Glucose Gel 15 Gm Gel..Gram.) 15 gm PO Q15M PRN; Protocol PRN Reason: per Hypoglycemia Standing Ord. Hydralazine HCl (Hydralazine Hcl 20 Mg/Ml Vial) 10 mg IVPUSH Q20M PRN PRN Reason: SBP >160 Last Admin: 12/20/22 16:00 Dose: 10 mg Hydromorphone HCl (Hydromorphone Hcl 0.5 Mg/0.5 Ml Syringe) 0.5 mg IVPUSH Q3H PRN; Protocol PRN Reason: Pain, Severe (Pain Scale 7-10) Last Admin: 12/20/22 09:29 Dose: 0.5 mg Hydromorphone HCl (Hydromorphone Hcl 0.5 Mg/0.5 Ml Syringe) 0.5 mg IVPUSH Q5M PRN; Protocol PRN Reason: Pain, Severe (Pain Scale 7-10) Lactated Ringer's (Lr) 1,000 mls @ 100 mls/hr IVCONT .Q10H [facility] Last Infusion: 12/20/22 09:46 Dose: Infused Acetaminophen (Ofirmev) 1,000 mg in 100 mls @ 400 mls/hr IV Q6H [facility] Last Infusion: 12/20/22 03:08 Dose: Infused Lamivudine (Lamivudine 150 Mg Tablet) 300 mg PO DAILY [facility] Last Admin: 12/20/22 07:53 Dose: 300 mg Loratadine (Loratadine 10 Mg Tablet) 10 mg PO DAILY PRN PRN Reason: Allergic Symptoms Lorazepam (Lorazepam 2 Mg/Ml Vial) 0.5 mg IVPUSH Q8H PRN PRN Reason: Anxiety Stop: 12/21/22 17:54 Last Admin: 12/20/22 02:20 Dose: 0.5 mg Omeprazole (Omeprazole 40 Mg Capsule.Dr) 40 mg PO BID@0630,1630 [facility] Last Admin: 12/20/22 05:50 Dose: 40 mg Ondansetron HCl (Ondansetron Hcl 4 Mg/2 Ml Vial) 4 mg IVPUSH Q8H PRN PRN Reason: Nausea and Vomiting Last Admin: 12/19/22 12:59 Dose: 4 mg Ondansetron HCl (Ondansetron Hcl 4 Mg/2 Ml Vial) 4 mg IVPUSH ONCE PRN PRN Reason: Nausea and Vomiting Ondansetron HCl (Ondansetron Hcl 4 Mg/2 Ml Vial) 4 mg IVPUSH ONCE PRN PRN Reason: Nausea and Vomiting Sertraline HCl (Sertraline Hcl 25 Mg Tablet) 75 mg PO DAILY [facility] Last Admin: 12/20/22 07:52 Dose: 75 mg Sodium Chloride (0.9 % Sodium Chloride Flush 3 Ml Syringe) 3 ml IVFLUSH QSHIFT [facility] Last Admin: 12/20/22 07:56 Dose: 3 ml Trazodone HCl (Trazodone Hcl 100 Mg Tablet) 100 mg PO BEDTIME PRN PRN Reason: Sleep Last Admin: 12/19/22 20:44 Dose: 100 mg Zolpidem Tartrate (Zolpidem Tartrate 5 Mg Tablet) 5 mg PO BEDTIME PRN PRN Reason: Insomnia Home Medications Medication Instructions Recorded Confirmed Last Taken Type albuterol sulfate 90 mcg/actuation 2 puff inhalation QID PRN 06/06/21 12/18/22 2 Days Ago History aerosol inhaler Respiratory Distress ~12/16/22 buprenorphine 8 mg-naloxone 2 mg 1 film sublingual TID 06/06/21 12/18/22 2 Days Ago History sublingual film ~12/16/22 buspirone 5 mg tablet 5 mg PO TID 06/06/21 12/18/22 2 Days Ago History ~12/16/22 carvedilol 12.5 mg tablet 12.5 mg PO BID 06/06/21 12/18/22 2 Days Ago History ~12/16/22 cetirizine 10 mg tablet 10 mg PO DAILY PRN Allergic 06/06/21 12/18/22 2 Days Ago History Symptoms ~12/16/22 gabapentin 600 mg tablet 600 mg PO BID 06/06/21 12/18/22 2 Days Ago History ~12/16/22 hydrochlorothiazide 12.5 mg tablet 12.5 mg PO DAILY 06/06/21 12/18/22 2 Days Ago History ~12/16/22 pravastatin 40 mg tablet 40 mg PO BEDTIME 06/06/21 12/18/22 2 Days Ago History ~12/16/22 sertraline 50 mg tablet 75 mg PO DAILY 06/06/21 12/18/22 2 Days Ago History ~12/16/22 trazodone 100 mg tablet 100 mg PO BEDTIME PRN Sleep 06/06/21 12/18/22 2 Days Ago History ~12/16/22 amlodipine 5 mg tablet 5 mg PO DAILY 12/18/22 12/18/22 2 Days Ago History ~12/16/22 dolutegravir 50 mg-lamivudine 300 1 tab PO DAILY 12/18/22 12/18/22 2 Days Ago History mg tablet (Dovato) ~12/16/22 dulaglutide 0.75 mg/0.5 mL 0.75 mg subcut MO 12/18/22 12/18/22 2 Days Ago History subcutaneous pen injector ~12/16/22 (Trulicity) empagliflozin 10 mg tablet 10 mg PO DAILY 12/18/22 12/18/22 2 Days Ago History (Jardiance) ~12/16/22 loperamide 2 mg tablet 2 mg PO Q6H PRN Diarrhea 12/18/22 12/18/22 2 Days Ago History (Anti-Diarrheal (loperamide)) ~12/16/22 Physical Exam Vital Signs: Vital Signs: Last Vital Signs Temp 97.5 F 12/20/22 15:41 Pulse 91 12/20/22 17:25 Resp 18 12/20/22 17:25 BP 181/86 H 12/20/22 17:25 Pulse Ox 95 12/20/22 17:25 O2 Del Method Nasal Cannula 12/20/22 17:25 O2 Flow Rate 2 12/20/22 17:25 FiO2 30 12/20/22 16:11 BMI result Body Mass Index 33.4 He was Blanca hypertensive but clearly was having postoperative discomfort and he was awakening to acute indications I personally would not treat the acute hypertension I think extubation will serve that purpose 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 Bedside echo depicting normal LV function Chest x-ray basically clear Results Labs 12/20/22 05:07 12/20/22 05:07 Labs: Short CBC 12/20/22 Range/Units 05:07 WBC 10.1 (4.8-10.8) X10*3/uL Hgb 13.0 L (14.0-18.0) g/dl Hct 39.9 L (42.0-52.0) % Plt Count 273 (160-400) X10*3/uL BMP 12/20/22 05:07 Sodium 139 Potassium 3.6 Chloride 102 Carbon Dioxide 27 BUN 32 H Creatinine 1.90 H Calcium 9.2 Assessment and Plan (1) S/P exploratory laparotomy: Status: Acute (2) Small bowel obstruction: Status: Acute (3) Acute hyperkalemia: Status: Acute (4) Leukocytosis: Status: Acute (5) COVID-19: Status: Acute (6) Acute kidney injury superimposed on CKD: Status: Acute (7) Duodenal ulcer: Status: Acute (8) Severe anemia: Status: Acute Plan Stayed with him for an hour as he did awaken hypertension certainly did not hurt his function it was purely secondary to awakening as well as having pain the cure for all this was extubation which we did successfully He was able to go back to regular medical floor no need for more advance care rhythm was excellent EKG unchanged no acute ST-T problems Time Spent With Patient Time: Total time managing care of this patient today 60____ minutes.
[2022-12-20] MEDS: Morphine Sulfate 2 MG/ML CARTRIDGE 5 MG IVPUSH (17:57)
[2022-12-20] MEDS: HYDROmorphone HCl 2 MG/ML VIAL IVPUSH (18:30)
[2022-12-20] MEDS: ondansetron HCL 4 MG/2 ML VIAL IVPUSH (20:32)
[2022-12-20 20:37] LABS: Glucose, Whole Blood 185 mg/dL (60-115)
[2022-12-21] MEDS: hydrALAZINE HCl 20 MG/ML VIAL 10 MG IVPUSH (00:02)
[2022-12-21 00:27] LABS: ABG Refer to POC result
[2022-12-21] MEDS: Acetaminophen 1,000 MG/100 ML PIGGYBACK 400 MG IV ×4 (01:00→20:09)
[2022-12-21] MEDS: traZODone HCL 100 MG TABLET PO (01:00)
[2022-12-21 04:00] VITALS: BP 148/76; PULSE 84; RESP 16; TEMP 36.8; O2SAT 94
[2022-12-21] MEDS: HYDROmorphone HCl 0.5 MG/0.5 ML SYRINGE IVPUSH ×6 (04:40→20:56)
[2022-12-21] MEDS: Lactated Ringers 1,000 ML 100 ML IVCONT ×3 (06:01→23:46)
[2022-12-21] MEDS: Omeprazole 40 MG CAPSULE.DR PO ×2 (06:02→16:33)
[2022-12-21 07:28] LABS: Glucose, Whole Blood 165 mg/dL (60-115)
[2022-12-21 07:47] VITALS: BP 179/91; PULSE 82; RESP 18; TEMP 36.8; O2SAT 97
--- NOTE | 2022-12-21 07:52 | PM.PNGS ---
Subjective Subjective Date of Service: 12/21/22 Interval history: C/o abdominal pain this morning, at incision site. Different than yesterday. Some mild nausea. Ostomy with stool output. Physical Exam Vital Signs: Vital Signs: Last Vital Signs Temp 98.3 F 12/21/22 07:47 Pulse 82 12/21/22 07:47 Resp 18 12/21/22 07:47 BP 179/91 H 12/21/22 07:47 Pulse Ox 97 12/21/22 07:47 O2 Del Method Nasal Cannula 12/21/22 07:47 O2 Flow Rate 2 12/21/22 07:47 FiO2 33 12/20/22 18:30 BMI result Body Mass Index 33.4 Const: General: comfortable, no acute distress and alert Orientation/consciousness: patient oriented x3 Resp: Effort & Inspection: normal respiratory effort GI: Other: stoma pink, soft brown stool in appliance Inspection: No distended and Yes incision (dressing c/d/i) Palpation (GI): Soft to palpation, Tenderness to palpation present (GI) (incisional), no guarding and not rigid Skin: General skin exam: no rashes or lesions noted Neuro: General: patient oriented x3 and moves all extremities Objective Data Active Medications Albuterol Sulfate (Albuterol Sulfate 90 Mcg 8 Gm Inhaler) 2 puff INHALE RQID PRN PRN Reason: Respiratory Distress Amlodipine Besylate (Amlodipine Besylate 5 Mg Tablet) 5 mg PO DAILY [facility]; Protocol Last Admin: 12/20/22 07:54 Dose: 5 mg Documented By: ABAD Buprenorphine/Naloxone (Buprenorphine/Naloxone 8/2 Mg Film) 1 film SUBLINGUAL TID [facility] Last Admin: 12/20/22 22:08 Dose: 1 film Documented By: SARAHI Buspirone HCl (Buspirone Hcl 5 Mg Tablet) 5 mg PO TID [facility] Last Admin: 12/20/22 22:07 Dose: 5 mg Documented By: SARAHI Carvedilol (Carvedilol 12.5 Mg Tablet) 12.5 mg PO BID [facility]; Protocol Last Admin: 12/20/22 22:07 Dose: 12.5 mg Documented By: SARAHI Dextrose (Dextrose 50 % 25 Gm/50 Ml Syringe) 25 gm IVPUSH Q15M PRN; Protocol PRN Reason: per Hypoglycemia Standing Ord. Dextrose (Dextrose 50 % 25 Gm/50 Ml Syringe) 25 gm IVPUSH Q15M PRN; Protocol PRN Reason: per Hypoglycemia Standing Ord. Dolutegravir Sodium (Dolutegravir Sodium 50 Mg Tablet) 50 mg PO DAILY [facility] Last Admin: 12/20/22 07:57 Dose: 50 mg Documented By: ABAD Enoxaparin Sodium (Enoxaparin Sodium 30 Mg/0.3 Ml Syringe) 30 mg SUBCUT Q24H [facility] Last Admin: 12/20/22 20:37 Dose: Not Given Documented By: SARAHI Non-Admin Reason: surgery Fentanyl (Fentanyl Citrate/Pf 100 Mcg/2 Ml Vial) 50 mcg IVPUSH Q5M PRN; Protocol PRN Reason: Pain, Severe (Pain Scale 7-10) Last Admin: 12/20/22 17:40 Dose: 50 mcg Documented By: BLAIR Gabapentin (Gabapentin 600 Mg Tablet) 600 mg PO BID [facility] Last Admin: 12/20/22 22:07 Dose: 600 mg Documented By: SARAHI Glucose (Glucose Gel 15 Gm Gel..Gram.) 15 gm PO Q15M PRN; Protocol PRN Reason: per Hypoglycemia Standing Ord. Hydralazine HCl (Hydralazine Hcl 20 Mg/Ml Vial) 10 mg IVPUSH Q20M PRN PRN Reason: SBP >160 Last Admin: 12/21/22 00:02 Dose: 10 mg Documented By: SARAHI Hydromorphone HCl (Hydromorphone Hcl 0.5 Mg/0.5 Ml Syringe) 0.5 mg IVPUSH Q2H PRN; Protocol PRN Reason: Pain, Severe (Pain Scale 7-10) Lactated Ringer's (Lr) 1,000 mls @ 100 mls/hr IVCONT .Q10H [facility] Last Admin: 12/21/22 06:01 Dose: 100 mls/hr Documented By: SARAHI Acetaminophen (Ofirmev) 1,000 mg in 100 mls @ 400 mls/hr IV Q6H [facility] Last Infusion: 12/21/22 01:15 Dose: 0 mls/hr Documented By: SARAHI Insulin Human Lispro (Insulin Lispro 100 Unit/Ml 3 Ml Vial) 0 unit SUBCUT Q6H [facility]; Protocol Lamivudine (Lamivudine 150 Mg Tablet) 300 mg PO DAILY [facility] Last Admin: 12/20/22 07:53 Dose: 300 mg Documented By: ABAD Loratadine (Loratadine 10 Mg Tablet) 10 mg PO DAILY PRN PRN Reason: Allergic Symptoms Lorazepam (Lorazepam 2 Mg/Ml Vial) 0.5 mg IVPUSH Q8H PRN PRN Reason: Anxiety Stop: 12/21/22 17:54 Last Admin: 12/20/22 20:32 Dose: 0.5 mg Documented By: SARAHI Omeprazole (Omeprazole 40 Mg Capsule.Dr) 40 mg PO BID@0630,1630 [facility] Last Admin: 12/21/22 06:02 Dose: 40 mg Documented By: SARAHI Ondansetron HCl (Ondansetron Hcl 4 Mg/2 Ml Vial) 4 mg IVPUSH Q8H PRN PRN Reason: Nausea and Vomiting Last Admin: 12/20/22 20:32 Dose: 4 mg Documented By: SARAHI Ondansetron HCl (Ondansetron Hcl 4 Mg/2 Ml Vial) 4 mg IVPUSH ONCE PRN PRN Reason: Nausea and Vomiting Sertraline HCl (Sertraline Hcl 25 Mg Tablet) 75 mg PO DAILY [facility] Last Admin: 12/20/22 07:52 Dose: 75 mg Documented By: ABAD Sodium Chloride (0.9 % Sodium Chloride Flush 3 Ml Syringe) 3 ml IVFLUSH QSHIFT [facility] Last Admin: 12/20/22 22:18 Dose: Not Given Documented By: SARAHI Non-Admin Reason: IV Running Trazodone HCl (Trazodone Hcl 100 Mg Tablet) 100 mg PO BEDTIME PRN PRN Reason: Sleep Last Admin: 12/21/22 01:00 Dose: 100 mg Documented By: SARAHI Zolpidem Tartrate (Zolpidem Tartrate 5 Mg Tablet) 5 mg PO BEDTIME PRN PRN Reason: Insomnia Labs 12/20/22 05:07 12/20/22 05:07 Labs: Laboratory Results - last 24 hr 12/20/22 12/20/22 12/20/22 09:53 10:45 15:36 O2 Saturation 100.0 ABG pH at Pt Temp 7.54 H ABG pCO2 at Pt Temp 26 L ABG pO2 at Pt Temp 107 ABG HCO3 23 ABG Base Excess (Actual) 2.0 POC Glucose 155 H Blood Type O Positive Antibody Screen NEGATIVE 12/20/22 12/21/22 20:26 07:25 O2 Saturation ABG pH at Pt Temp ABG pCO2 at Pt Temp ABG pO2 at Pt Temp ABG HCO3 ABG Base Excess (Actual) POC Glucose 185 H 165 H Blood Type Antibody Screen Procedures Date of Service Date of Service: 12/21/22 Progress Note: A&P Assessment and plan (1) Small bowel obstruction: Status: Acute (2) S/P exploratory laparotomy: Status: Acute Plan 72 year old male with history of total colectomy admitted with SBO now POD #1 s/p exploratory laparotomy, extensive lysis of adhesions , small-bowel resection. Ostomy now with soft stool output. Patient c/o incisional pain. VSS. Abd exam benign, soft with appropriate post op tenderness, dressing c/d/i. Pain control will be difficulty in light of suboxone. Encouraged OOB/ambulation and IS use. Dc kenyon. Follow NGT output. Hospitalists following. Time Spent With Patient Time: Total time managing care of this patient today ____ minutes. Quality Stroke Does the patient have a stroke diagnosis?: No VTE Prior VTE?: No VTE Risk Level:: Surgical - moderate VTE Device Contraindication: N/A - Device Ordered VTE Drug Contraindication: N/A - Med Ordered
[2022-12-21] MEDS: 0.9 % Sodium Chloride Flush 3 ML SYRINGE IVFLUSH (08:00)
[2022-12-21] MEDS: Sertraline HCL 25 MG TABLET 75 MG PO (08:02)
[2022-12-21] MEDS: Dolutegravir Sodium 50 MG TABLET PO (08:02)
[2022-12-21] MEDS: lamiVUDine 150 MG TABLET 300 MG PO (08:03)
[2022-12-21] MEDS: carvediloL 12.5 MG TABLET PO ×2 (08:03→20:10)
[2022-12-21] MEDS: Buprenorphine/Naloxone 8/2 mg FILM 1 FILM SUBLINGUAL ×3 (08:04→20:10)
[2022-12-21] MEDS: amLODIPine Besylate 5 MG TABLET PO (08:04)
[2022-12-21] MEDS: Gabapentin 600 MG TABLET PO ×2 (08:04→20:10)
[2022-12-21] MEDS: Insulin Lispro 100 UNIT/ML 3 ML VIAL SUBCUT (08:15)
[2022-12-21] MEDS: busPIRone HCl 5 MG TABLET PO ×3 (08:27→20:10)
[2022-12-21 09:08] LABS: Hematocrit 39.9 % (42.0-52.0); Hemoglobin 13.4 g/dl (14.0-18.0); Mean Corpuscular HGB Conc 33.6 g/dl (31.0-36.0); Mean Corpuscular Hemoglobin 34.6 pg (27.0-33.0); Mean Corpuscular Volume 103.1 fL (80.0-98.0); Mean Platelet Volume 11.5 fL (9.4-12.4); NRBC Pct Auto 0.3 /100WBC (0.0-0.2); Platelet Count 239 X10*3/uL (160-400); Red Blood Count 3.87 X10*6/uL (4.60-5.80); Red Cell Distribution Width 13.9 % (11.0-16.0); White Blood Count 16.2 X10*3/uL (4.8-10.8)
--- NOTE | 2022-12-21 09:15 | HO.PM.IMPN ---
Subjective Subjective Date of Service: 12/21/22 Interval History: sbo,htn , ckd Review of Systems abd pain seems slightly improving Ostomy now with soft stool output Physical Exam Vital Signs: Vital Signs: Last Vital Signs Temp 98.3 F 12/21/22 07:47 Pulse 82 12/21/22 07:47 Resp 18 12/21/22 07:47 BP 179/91 H 12/21/22 07:47 Pulse Ox 97 12/21/22 07:47 O2 Del Method Nasal Cannula 12/21/22 07:47 O2 Flow Rate 2 12/21/22 07:47 FiO2 33 12/20/22 18:30 BMI result Body Mass Index 33.4 Appearance: Alert.? Oriented X3.? not in distress.? cvs: rrr, [id number]. res: clear to auscultation ,no rhonchii or wheezing abd:no rigidity or guarding ,abd soft-small amount of soft stool in ostomy bag ext pulses present , no cyanosis. neuro: axo3 , nonfocal. Objective Data Active Medications Albuterol Sulfate (Albuterol Sulfate 90 Mcg 8 Gm Inhaler) 2 puff INHALE RQID PRN PRN Reason: Respiratory Distress Amlodipine Besylate (Amlodipine Besylate 5 Mg Tablet) 5 mg PO DAILY [facility]; Protocol Last Admin: 12/21/22 08:04 Dose: 5 mg Documented By: ABAD Buprenorphine/Naloxone (Buprenorphine/Naloxone 8/2 Mg Film) 1 film SUBLINGUAL TID [facility] Last Admin: 12/21/22 08:04 Dose: 1 film Documented By: ABAD Buspirone HCl (Buspirone Hcl 5 Mg Tablet) 5 mg PO TID [facility] Last Admin: 12/21/22 08:27 Dose: 5 mg Documented By: ABAD Carvedilol (Carvedilol 12.5 Mg Tablet) 12.5 mg PO BID [facility]; Protocol Last Admin: 12/21/22 08:03 Dose: 12.5 mg Documented By: ABAD Dextrose (Dextrose 50 % 25 Gm/50 Ml Syringe) 25 gm IVPUSH Q15M PRN; Protocol PRN Reason: per Hypoglycemia Standing Ord. Dextrose (Dextrose 50 % 25 Gm/50 Ml Syringe) 25 gm IVPUSH Q15M PRN; Protocol PRN Reason: per Hypoglycemia Standing Ord. Dolutegravir Sodium (Dolutegravir Sodium 50 Mg Tablet) 50 mg PO DAILY [facility] Last Admin: 12/21/22 08:02 Dose: 50 mg Documented By: ABAD Enoxaparin Sodium (Enoxaparin Sodium 30 Mg/0.3 Ml Syringe) 30 mg SUBCUT Q24H [facility] Last Admin: 12/20/22 20:37 Dose: Not Given Documented By: SARAHI Non-Admin Reason: surgery Fentanyl (Fentanyl Citrate/Pf 100 Mcg/2 Ml Vial) 50 mcg IVPUSH Q5M PRN; Protocol PRN Reason: Pain, Severe (Pain Scale 7-10) Last Admin: 12/20/22 17:40 Dose: 50 mcg Documented By: BLIAR Gabapentin (Gabapentin 600 Mg Tablet) 600 mg PO BID [facility] Last Admin: 12/21/22 08:04 Dose: 600 mg Documented By: ABAD Glucose (Glucose Gel 15 Gm Gel..Gram.) 15 gm PO Q15M PRN; Protocol PRN Reason: per Hypoglycemia Standing Ord. Hydralazine HCl (Hydralazine Hcl 20 Mg/Ml Vial) 10 mg IVPUSH Q20M PRN PRN Reason: SBP >160 Last Admin: 12/21/22 00:02 Dose: 10 mg Documented By: SARAHI Hydromorphone HCl (Hydromorphone Hcl 0.5 Mg/0.5 Ml Syringe) 0.5 mg IVPUSH Q2H PRN; Protocol PRN Reason: Pain, Severe (Pain Scale 7-10) Last Admin: 12/21/22 08:17 Dose: 0.5 mg Documented By: ABAD Lactated Ringer's (Lr) 1,000 mls @ 100 mls/hr IVCONT .Q10H [facility] Last Admin: 12/21/22 06:01 Dose: 100 mls/hr Documented By: SARAHI Acetaminophen (Ofirmev) 1,000 mg in 100 mls @ 400 mls/hr IV Q6H [facility] Last Infusion: 12/21/22 08:25 Dose: 0 mls/hr Documented By: ABAD Insulin Human Lispro (Insulin Lispro 100 Unit/Ml 3 Ml Vial) 0 unit SUBCUT Q6H [facility]; Protocol Last Admin: 12/21/22 08:15 Dose: 2 unit Documented By: ABAD Lamivudine (Lamivudine 150 Mg Tablet) 300 mg PO DAILY [facility] Last Admin: 12/21/22 08:03 Dose: 300 mg Documented By: ABAD Loratadine (Loratadine 10 Mg Tablet) 10 mg PO DAILY PRN PRN Reason: Allergic Symptoms Lorazepam (Lorazepam 2 Mg/Ml Vial) 0.5 mg IVPUSH Q8H PRN PRN Reason: Anxiety Stop: 12/21/22 17:54 Last Admin: 12/20/22 20:32 Dose: 0.5 mg Documented By: SARAHI Omeprazole (Omeprazole 40 Mg Capsule.) 40 mg PO BID@0630,1630 [facility] Last Admin: 12/21/22 06:02 Dose: 40 mg Documented By: SARAHI Ondansetron HCl (Ondansetron Hcl 4 Mg/2 Ml Vial) 4 mg IVPUSH Q8H PRN PRN Reason: Nausea and Vomiting Last Admin: 12/20/22 20:32 Dose: 4 mg Documented By: SARAHI Ondansetron HCl (Ondansetron Hcl 4 Mg/2 Ml Vial) 4 mg IVPUSH ONCE PRN PRN Reason: Nausea and Vomiting Sertraline HCl (Sertraline Hcl 25 Mg Tablet) 75 mg PO DAILY [facility] Last Admin: 12/21/22 08:02 Dose: 75 mg Documented By: ABAD Sodium Chloride (0.9 % Sodium Chloride Flush 3 Ml Syringe) 3 ml IVFLUSH [facility] Last Admin: 12/21/22 08:00 Dose: 3 ml Documented By: ABAD Trazodone HCl (Trazodone Hcl 100 Mg Tablet) 100 mg PO BEDTIME PRN PRN Reason: Sleep Last Admin: 12/21/22 01:00 Dose: 100 mg Documented By: SARAHI Zolpidem Tartrate (Zolpidem Tartrate 5 Mg Tablet) 5 mg PO BEDTIME PRN PRN Reason: Insomnia Labs 12/21/22 08:45 12/20/22 05:07 Labs: Laboratory Results - last 24 hr 12/20/22 12/20/22 12/20/22 09:53 10:45 15:36 MCV MCH MCHC RDW Plt Count MPV Immature Gran % (Auto) Neut % (Auto) Lymph % (Auto) [place] % (Auto) Eos % (Auto) Baso % (Auto) Lymph # (Auto) [place] # (Auto) Eos # (Auto) Baso # (Auto) Abs Immat Gran (auto) Absolute Neuts (auto) Absolute Nucleated RBC Nucleated RBC % (auto) O2 Saturation 100.0 ABG pH at Pt Temp 7.54 H ABG pCO2 at Pt Temp 26 L ABG pO2 at Pt Temp 107 ABG HCO3 23 ABG Base Excess (Actual) 2.0 POC Glucose 155 H Blood Type O Positive Antibody Screen NEGATIVE 12/20/22 12/21/22 12/21/22 20:26 07:25 08:45 MCV 103.1 H MCH 34.6 H MCHC 33.6 RDW 13.9 Plt Count 239 MPV 11.5 Immature Gran % (Auto) Cancelled Neut % (Auto) Cancelled Lymph % (Auto) Cancelled [place] % (Auto) Cancelled Eos % (Auto) Cancelled Baso % (Auto) Cancelled Lymph # (Auto) Cancelled [place] # (Auto) Cancelled Eos # (Auto) Cancelled Baso # (Auto) Cancelled Abs Immat Gran (auto) Cancelled Absolute Neuts (auto) Cancelled Absolute Nucleated RBC 0.050 H Nucleated RBC % (auto) 0.3 H O2 Saturation ABG pH at Pt Temp ABG pCO2 at Pt Temp ABG pO2 at Pt Temp ABG HCO3 ABG Base Excess (Actual) POC Glucose 185 H 165 H Blood Type Antibody Screen Assessment and Plan (1) Small bowel obstruction: Status: Acute Plan 72-year-old male with history of [id number] type 2 diabetes, HIV on do Dovato following with [facility] ID, hypertension, ulcerative colitis s/p colectomy with ileostomy, GERD, and mood disorder admitted to General surgery for conservative management of small-bowel obstruction with consult placed to hospitalist service for medical management. Acute SBO chronically elevated leukocytosis, normal UA, normal chest x-ray, CT abdomen pelvis not suggestive of? infection. s/p exploratory laparotomy, extensive lysis of adhesions , small-bowel resection (12/20/22). pain control with dilaudid. [id number] type 2 diabetes -avoid POC glucose Less than 200 -advanced diabetic diet per General surgery -hold on Humalog per sliding scale given NPO status, hold Jardiance acute on chronic kidney disease? stage III continue IV fluid renal function trending down HIV -last viral load undetectable, last CD4 count greater than 900 -continue dovato hypertension -continue carvedilol, amlodipine, hold hydrochlorothiazide setting of MARY JO mood disorder -continue Zoloft, trazodone, BuSpar, resume? gabapentin possible mary jo : in : cr was around 1.5 range continue iv hydration added nephro eval. DVT prophylaxis? on Lovenox ?dispo-as per primary team. Time Spent With Patient Time: Total time managing care of this patient today ____ minutes. Quality Stroke Does the patient have a stroke diagnosis?: No VTE Prior VTE?: No VTE Risk Level:: Surgical - moderate VTE Device Contraindication: N/A - Device Ordered VTE Drug Contraindication: N/A - Med Ordered
[2022-12-21 09:25] LABS: Anion Gap 12 (12-20); Blood Urea Nitrogen 37 mg/dL (9-16); Calcium 8.5 mg/dL (8.4-10.2); Carbon Dioxide 26 mmol/L (22-29); Chloride 104 mmol/L (96-108); Creatinine Clr Calc Pharmacy 38.1; Estimated Glomerular Filt Rate 36; Glucose Random 177 mg/dL (60-115); Potassium 3.4 mmol/L (3.3-5.1); Sodium 139 mmol/L (135-145)
--- NOTE | 2022-12-21 10:03 | HO.POSTANES ---
Post Anesthesia Evaluation Post Anesthesia Evaluation Date of Service: 12/21/22 Vital Signs: Vital Signs Temp Pulse Resp BP Pulse Ox O2 Del Method O2 Flow Rate 12/21/22 07:47 98.3 F 82 18 179/91 H 97 Nasal Cannula 2 12/21/22 04:00 98.3 F 84 16 148/76 H 94 Nasal Cannula 2 12/20/22 23:34 96.8 F 80 16 190/90 H 97 Nasal Cannula 2 Anesthesia: General Endotracheal-GETA Mental Status: Awake Pain Control: Satisfactory (mild pain) Nausea/Vomiting: Mild Hydration: Adequate Anesthesia-Related Issues: No Anes. Related Issues
[2022-12-21 10:07] LABS: Band Neutrophils Percent 20 % (3-5); Lymphocytes Absolute Manual 1.5 X10*3/uL (1.2-4.9); Lymphocytes Percent Manual 9 % (20-40); Monocytes Absolute Manual 0.5 X10*3/uL (0.1-1.2); Monocytes Percent Manual 3 % (2-11); Neutrophils Absolute Manual 14.3 X10*3/uL (2.0-8.3); Neutrophils Percent Manual 68 % (45-73); Nucleated Red Blood Cells 2 /100WBC (0-0)
[2022-12-21 10:11] LABS: Acanthocytes 2+ (3-5) /OIF; Burr Cells 1+ (0-2) /OIF; Dohle Bodies PRESENT; Macrocytosis 1+ (5-14) /OIF; Platelet Estimate NORMAL (NORMAL); Platelet Morphology Comment NORMAL; RBC Morphology NOTED
[2022-12-21 11:47] LABS: Glucose, Whole Blood 137 mg/dL (60-115)
[2022-12-21 11:48] VITALS: BP 167/81; PULSE 78; RESP 18; TEMP 36.8; O2SAT 95
[2022-12-21] MEDS: Enoxaparin Sodium 30 MG/0.3 ML SYRINGE SUBCUT (11:56)
[2022-12-21 15:13] VITALS: BP 161/70; PULSE 75; RESP 18; TEMP 36.4; O2SAT 96
[2022-12-21 16:22] LABS: Glucose, Whole Blood 140 mg/dL (60-115)
--- NOTE | 2022-12-21 17:49 | PC.NURSE ---
Lazo removed at 1330 per protocol. @ 1700 pt reports that he has not been able to void yet. Bladder scan shows 4ml. Will inform provider and continue to monitor
--- NOTE | 2022-12-21 18:58 | PC.NURSE ---
@ 1815 pt voided 200ml in urinal
[2022-12-21 19:00] VITALS: BP 170/78; PULSE 74; RESP 16; TEMP 36.2; O2SAT 95
[2022-12-21 20:12] LABS: Glucose, Whole Blood 150 mg/dL (60-115)
[2022-12-21] MEDS: LORazepam 2 MG/ML VIAL 0.5 MG IVPUSH (20:56)
[2022-12-21 23:48] VITALS: BP 154/76; PULSE 74; RESP 18; TEMP 36.1; O2SAT 96
[2022-12-22] MEDS: HYDROmorphone HCl 0.5 MG/0.5 ML SYRINGE IVPUSH ×6 (01:12→23:15)
[2022-12-22] MEDS: Acetaminophen 1,000 MG/100 ML PIGGYBACK 400 MG IV ×4 (01:50→20:37)
[2022-12-22 03:35] VITALS: BP 150/70; PULSE 66; RESP 18; TEMP 36.2; O2SAT 95
[2022-12-22] MEDS: Omeprazole 40 MG CAPSULE.DR PO (05:12)
[2022-12-22 05:44] LABS: Hemoglobin 11.2 g/dl (14.0-18.0); Mean Corpuscular HGB Conc 32.9 g/dl (31.0-36.0); Mean Corpuscular Hemoglobin 34.7 pg (27.0-33.0); Mean Corpuscular Volume 105.3 fL (80.0-98.0); Mean Platelet Volume 11.8 fL (9.4-12.4); NRBC Pct Auto 0.1 /100WBC (0.0-0.2); Platelet Count 186 X10*3/uL (160-400); Red Blood Count 3.23 X10*6/uL (4.60-5.80); Red Cell Distribution Width 13.9 % (11.0-16.0); White Blood Count 18.1 X10*3/uL (4.8-10.8)
[2022-12-22 06:09] LABS: Anion Gap 11 (12-20); Blood Urea Nitrogen 42 mg/dL (9-16); Carbon Dioxide 27 mmol/L (22-29); Chloride 106 mmol/L (96-108); Creatinine Clr Calc Pharmacy 40.3; Estimated Glomerular Filt Rate 38; Glucose Random 134 mg/dL (60-115); Potassium 3.4 mmol/L (3.3-5.1); Sodium 141 mmol/L (135-145)
[2022-12-22 06:20] LABS: Band Neutrophils Percent 15 % (3-5); Eosinophils Absolute Manual 0.2 X10*3/uL (0.0-0.4); Eosinophils Percent Manual 1 % (0-4); Lymphocytes Absolute Manual 1.8 X10*3/uL (1.2-4.9); Lymphocytes Percent Manual 10 % (20-40); Monocytes Absolute Manual 1.3 X10*3/uL (0.1-1.2); Monocytes Percent Manual 7 % (2-11); Neutrophils Absolute Manual 14.8 X10*3/uL (2.0-8.3); Neutrophils Percent Manual 67 % (45-73); Nucleated Red Blood Cells 1 /100WBC (0-0)
[2022-12-22 06:21] LABS: Acanthocytes 1+ (0-2) /OIF; Basophilic Stippling 1+ (0-2) /OIF; Burr Cells 2+ (3-5) /OIF; Dohle Bodies PRESENT; Howell Jolly Bodies PRESENT; Macrocytosis 1+ (5-14) /OIF; Pappenheimer Bodies PRESENT; Platelet Estimate NORMAL (NORMAL); Platelet Morphology Comment NORMAL; RBC Morphology NOTED; Smudge Cells PRESENT
[2022-12-22 06:22] LABS: Toxic Vacuolation PRESENT
--- NOTE | 2022-12-22 07:57 | P.PNGS_ITS ---
Agree with the above assessment and plan. Overall patient is improved and ostomy is now producing stool. Agree with clamping trial of NG tube. Will monitor WBC. Encourage out of bed and ambulation, incentive spirometry. Subjective Subjective Date of Service: 12/22/22 Interval history: Feels improved this morning but still has incisional pain. Ostomy with soft stool and liquid output. Nausea improved. has not been OOB. Physical Exam Vital Signs: Vital Signs: Last Vital Signs Temp 97.1 F 12/22/22 03:35 Pulse 66 12/22/22 03:35 Resp 18 12/22/22 03:35 BP 150/70 H 12/22/22 03:35 Pulse Ox 95 12/22/22 03:35 O2 Del Method Nasal Cannula 12/22/22 03:35 O2 Flow Rate 2 12/22/22 03:35 FiO2 33 12/20/22 18:30 BMI result Body Mass Index 33.4 Const: General: comfortable, no acute distress and alert Orientation/consciousness: patient oriented x3 HEENT: Other: NGT in place, scant bilious output Resp: Effort & Inspection: normal respiratory effort GI: Inspection: No distended and Yes incision (clean incision) Palpation (GI): Soft to palpation, Tenderness to palpation present (GI) (mild, incisiona l), no guarding and not rigid Skin: General skin exam: no rashes or lesions noted Neuro: General: patient oriented x3 Objective Data Active Medications Albuterol Sulfate (Albuterol Sulfate 90 Mcg 8 Gm Inhaler) 2 puff INHALE RQID PRN PRN Reason: Respiratory Distress Amlodipine Besylate (Amlodipine Besylate 5 Mg Tablet) 5 mg PO DAILY [facility]; Protocol Last Admin: 12/21/22 08:04 Dose: 5 mg Documented By: ABAD Buprenorphine/Naloxone (Buprenorphine/Naloxone 8/2 Mg Film) 1 film SUBLINGUAL TID [facility] Last Admin: 12/21/22 20:10 Dose: 1 film Documented By: SARAHI Buspirone HCl (Buspirone Hcl 5 Mg Tablet) 5 mg PO TID [facility] Last Admin: 12/21/22 20:10 Dose: 5 mg Documented By: SARAHI Carvedilol (Carvedilol 12.5 Mg Tablet) 12.5 mg PO BID [facility]; Protocol Last Admin: 12/21/22 20:10 Dose: 12.5 mg Documented By: SARAHI Dextrose (Dextrose 50 % 25 Gm/50 Ml Syringe) 25 gm IVPUSH Q15M PRN; Protocol PRN Reason: per Hypoglycemia Standing Ord. Dextrose (Dextrose 50 % 25 Gm/50 Ml Syringe) 25 gm IVPUSH Q15M PRN; Protocol PRN Reason: per Hypoglycemia Standing Ord. Dolutegravir Sodium (Dolutegravir Sodium 50 Mg Tablet) 50 mg PO DAILY [facility] Last Admin: 12/21/22 08:02 Dose: 50 mg Documented By: ABAD Enoxaparin Sodium (Enoxaparin Sodium 30 Mg/0.3 Ml Syringe) 30 mg SUBCUT Q24H [facility] Last Admin: 12/21/22 11:56 Dose: 30 mg Documented By: ABAD Fentanyl (Fentanyl Citrate/Pf 100 Mcg/2 Ml Vial) 50 mcg IVPUSH Q5M PRN; Protocol PRN Reason: Pain, Severe (Pain Scale 7-10) Last Admin: 12/20/22 17:40 Dose: 50 mcg Documented By: BLAIR Gabapentin (Gabapentin 600 Mg Tablet) 600 mg PO BID [facility] Last Admin: 12/21/22 20:10 Dose: 600 mg Documented By: SARAHI Glucose (Glucose Gel 15 Gm Gel..Gram.) 15 gm PO Q15M PRN; Protocol PRN Reason: per Hypoglycemia Standing Ord. Hydralazine HCl (Hydralazine Hcl 20 Mg/Ml Vial) 10 mg IVPUSH Q20M PRN PRN Reason: SBP >160 Last Admin: 12/21/22 00:02 Dose: 10 mg Documented By: SARAHI Hydromorphone HCl (Hydromorphone Hcl 0.5 Mg/0.5 Ml Syringe) 0.5 mg IVPUSH Q2H PRN; Protocol PRN Reason: Pain, Severe (Pain Scale 7-10) Last Admin: 12/22/22 05:11 Dose: 0.5 mg Documented By: SARAHI Lactated Ringer's (Lr) 1,000 mls @ 100 mls/hr IVCONT .Q10H [facility] Last Admin: 12/21/22 23:46 Dose: 100 mls/hr Documented By: SARAHI Acetaminophen (Ofirmev) 1,000 mg in 100 mls @ 400 mls/hr IV Q6H [facility] Last Infusion: 12/22/22 02:05 Dose: 0 mls/hr Documented By: SARAHI Insulin Human Lispro (Insulin Lispro 100 Unit/Ml 3 Ml Vial) 0 unit SUBCUT QIDACHS [facility]; Protocol Last Admin: 12/21/22 20:15 Dose: Not Given Documented By: SARAHI Non-Admin Reason: No Insulin Coverage Lamivudine (Lamivudine 150 Mg Tablet) 300 mg PO DAILY [facility] Last Admin: 12/21/22 08:03 Dose: 300 mg Documented By: ABAD Loratadine (Loratadine 10 Mg Tablet) 10 mg PO DAILY PRN PRN Reason: Allergic Symptoms Lorazepam (Lorazepam 2 Mg/Ml Vial) 0.5 mg IVPUSH Q8H PRN PRN Reason: anxiety/restlessness Last Admin: 12/21/22 20:56 Dose: 0.5 mg Documented By: SARAHI Omeprazole (Omeprazole 40 Mg Capsule.Dr) 40 mg PO BID@0630,1630 [facility] Last Admin: 12/22/22 05:12 Dose: 40 mg Documented By: SARAHI Ondansetron HCl (Ondansetron Hcl 4 Mg/2 Ml Vial) 4 mg IVPUSH Q8H PRN PRN Reason: Nausea and Vomiting Last Admin: 12/20/22 20:32 Dose: 4 mg Documented By: SARAHI Ondansetron HCl (Ondansetron Hcl 4 Mg/2 Ml Vial) 4 mg IVPUSH ONCE PRN PRN Reason: Nausea and Vomiting Sertraline HCl (Sertraline Hcl 25 Mg Tablet) 75 mg PO DAILY [facility] Last Admin: 12/21/22 08:02 Dose: 75 mg Documented By: ABAD Sodium Chloride (0.9 % Sodium Chloride Flush 3 Ml Syringe) 3 ml IVFLUSH QSHIFT [facility] Last Admin: 12/21/22 20:29 Dose: Not Given Documented By: SARAHI Non-Admin Reason: IV Running Trazodone HCl (Trazodone Hcl 100 Mg Tablet) 100 mg PO BEDTIME PRN PRN Reason: Sleep Last Admin: 12/21/22 01:00 Dose: 100 mg Documented By: SARAHI Zolpidem Tartrate (Zolpidem Tartrate 5 Mg Tablet) 5 mg PO BEDTIME PRN PRN Reason: Insomnia Labs 12/22/22 05:05 12/22/22 05:05 Labs: Laboratory Results - last 24 hr 12/21/22 12/21/22 12/21/22 08:45 08:45 11:38 MCV 103.1 H MCH 34.6 H MCHC 33.6 RDW 13.9 Plt Count 239 MPV 11.5 Immature Gran % (Auto) Cancelled Neut % (Auto) Cancelled Lymph % (Auto) Cancelled [place] % (Auto) Cancelled Eos % (Auto) Cancelled Baso % (Auto) Cancelled Lymph # (Auto) Cancelled [place] # (Auto) Cancelled Eos # (Auto) Cancelled Baso # (Auto) Cancelled Abs Immat Gran (auto) Cancelled Absolute Neuts (auto) Cancelled Absolute Nucleated RBC 0.050 H Nucleated RBC % (auto) 0.3 H Neutrophils % (Manual) 68 Band Neutrophils % 20 H Lymphocytes % (Manual) 9 L Monocytes % (Manual) 3 Eosinophils % (Manual) Abs Neuts (Manual) 14.3 H Lymphocytes # (Manual) 1.5 Monocytes # (Manual) 0.5 Eosinophils # (Manual) Nucleated RBCs 2 H Smudge Cells Toxic Vacuolation Dohle Bodies PRESENT Platelet Estimate NORMAL Plt Morphology Comment NORMAL RBC Morphology NOTED Basophilic Stippling Macrocytosis 1+ (5-14) Pappenheimer Bodies [place] Bodies [place] Cells 1+ (0-2) Acanthocytes (Spur) 2+ (3-5) Anion Gap 12 Estim Creat Clear Calc 38.1 Estimated GFR 36 POC Glucose 137 H Random Glucose 177 H Calcium 8.5 D 12/21/22 12/21/22 12/22/22 16:06 20:05 05:05 MCV 105.3 H MCH 34.7 H MCHC 32.9 RDW 13.9 Plt Count 186 MPV 11.8 Immature Gran % (Auto) Cancelled Neut % (Auto) Cancelled Lymph % (Auto) Cancelled [place] % (Auto) Cancelled Eos % (Auto) Cancelled Baso % (Auto) Cancelled Lymph # (Auto) Cancelled [place] # (Auto) Cancelled Eos # (Auto) Cancelled Baso # (Auto) Cancelled Abs Immat Gran (auto) Cancelled Absolute Neuts (auto) Cancelled Absolute Nucleated RBC 0.020 H Nucleated RBC % (auto) 0.1 Neutrophils % (Manual) 67 Band Neutrophils % 15 H Lymphocytes % (Manual) 10 L Monocytes % (Manual) 7 Eosinophils % (Manual) 1 Abs Neuts (Manual) 14.8 H Lymphocytes # (Manual) 1.8 Monocytes # (Manual) 1.3 H Eosinophils # (Manual) 0.2 Nucleated RBCs 1 H Smudge Cells PRESENT Toxic Vacuolation PRESENT Dohle Bodies PRESENT Platelet Estimate NORMAL Plt Morphology Comment NORMAL RBC Morphology NOTED Basophilic Stippling 1+ (0-2) Macrocytosis 1+ (5-14) Pappenheimer Bodies PRESENT [place] Bodies PRESENT [place] Cells 2+ (3-5) Acanthocytes (Spur) 1+ (0-2) Anion Gap Estim Creat Clear Calc Estimated GFR POC Glucose 140 H 150 H Random Glucose Calcium 12/22/22 05:05 MCV MCH MCHC RDW Plt Count MPV Immature Gran % (Auto) Neut % (Auto) Lymph % (Auto) [place] % (Auto) Eos % (Auto) Baso % (Auto) Lymph # (Auto) [place] # (Auto) Eos # (Auto) Baso # (Auto) Abs Immat Gran (auto) Absolute Neuts (auto) Absolute Nucleated RBC Nucleated RBC % (auto) Neutrophils % (Manual) Band Neutrophils % Lymphocytes % (Manual) Monocytes % (Manual) Eosinophils % (Manual) Abs Neuts (Manual) Lymphocytes # (Manual) Monocytes # (Manual) Eosinophils # (Manual) Nucleated RBCs Smudge Cells Toxic Vacuolation Dohle Bodies Platelet Estimate Plt Morphology Comment RBC Morphology Basophilic Stippling Macrocytosis Pappenheimer Bodies [place] Bodies [place] Cells Acanthocytes (Spur) Anion Gap 11 L Estim Creat Clear Calc 40.3 Estimated GFR 38 POC Glucose Random Glucose 134 H Calcium 9.0 Procedures Date of Service Date of Service: 12/22/22 Progress Note: A&P Assessment and plan (1) S/P exploratory laparotomy: Status: Acute (2) Small bowel obstruction: Status: Acute Plan 72 year old male with history of total colectomy admitted with SBO now POD #2 s/p exploratory laparotomy, extensive lysis of adhesions , small-bowel resection. Ostomy continues with soft stool output, NGT output less. VSS. Abd exam benign, nondistended with clean incision. Cont pain control, IVF. Encouraged OOB/ambulation and IS use. Will return for possible NGT clamping trial. WBC up this am, repeat in AM. MARY JO improving. Hospitalists following. Time Spent With Patient Time: Total time managing care of this patient today ____ minutes. Quality Stroke Does the patient have a stroke diagnosis?: No VTE Prior VTE?: No VTE Risk Level:: Surgical - moderate VTE Device Contraindication: N/A - Device Ordered VTE Drug Contraindication: N/A - Med Ordered
[2022-12-22 08:00] VITALS: BP 162/70; PULSE 73; RESP 18; TEMP 36.3; O2SAT 97
[2022-12-22 08:08] LABS: Glucose, Whole Blood 126 mg/dL (60-115)
[2022-12-22] MEDS: 0.9 % Sodium Chloride Flush 3 ML SYRINGE IVFLUSH ×2 (09:05→20:38)
[2022-12-22] MEDS: Lactated Ringers 1,000 ML 100 ML IVCONT ×3 (09:06→23:47)
[2022-12-22] MEDS: Sertraline HCL 25 MG TABLET 75 MG PO (09:12)
[2022-12-22] MEDS: Gabapentin 600 MG TABLET PO ×2 (09:12→20:53)
[2022-12-22] MEDS: lamiVUDine 150 MG TABLET 300 MG PO (09:12)
[2022-12-22] MEDS: Dolutegravir Sodium 50 MG TABLET PO (09:12)
[2022-12-22] MEDS: carvediloL 12.5 MG TABLET PO ×2 (09:12→20:52)
[2022-12-22] MEDS: amLODIPine Besylate 5 MG TABLET PO (09:13)
[2022-12-22] MEDS: busPIRone HCl 5 MG TABLET PO ×3 (09:13→20:53)
[2022-12-22] MEDS: Buprenorphine/Naloxone 8/2 mg FILM 1 FILM SUBLINGUAL ×3 (09:13→20:52)
[2022-12-22 11:16] LABS: Glucose, Whole Blood 122 mg/dL (60-115)
--- NOTE | 2022-12-22 11:20 | MHC.CM.PN ---
PER [facility] NURSE, JEANETTE PEARL, PT IS ACTIVE WITH [facility]. RETURN REFERRAL SENT VIA [employer].
[2022-12-22] MEDS: Enoxaparin Sodium 30 MG/0.3 ML SYRINGE SUBCUT (11:57)
--- NOTE | 2022-12-22 12:05 | P.PNIM_ITS ---
Subjective Subjective Date of Service: 12/22/22 Interval History: sbo,htn , ckd Review of Systems abd pain seems slightly improving Ostomy now with soft stool output Physical Exam Vital Signs: Vital Signs: Last Vital Signs Temp 97.4 F 12/22/22 08:00 Pulse 73 12/22/22 08:00 Resp 18 12/22/22 08:00 BP 162/70 H 12/22/22 08:00 Pulse Ox 97 12/22/22 08:00 O2 Del Method Nasal Cannula 12/22/22 08:00 O2 Flow Rate 1.5 12/22/22 08:00 FiO2 33 12/20/22 18:30 BMI result Body Mass Index 33.4 Appearance: Alert.? Oriented X3.? not in distress.? cvs: rrr, [id number]. res: clear to auscultation ,no rhonchii or wheezing abd:no rigidity or guarding ,abd soft-small amount of liquid stool in ostomy bag ext pulses present , no cyanosis. neuro: axo3 , nonfocal. Objective Data Active Medications Albuterol Sulfate (Albuterol Sulfate 90 Mcg 8 Gm Inhaler) 2 puff INHALE RQID PRN PRN Reason: Respiratory Distress Amlodipine Besylate (Amlodipine Besylate 5 Mg Tablet) 5 mg PO DAILY [facility]; Protocol Last Admin: 12/22/22 09:13 Dose: 5 mg Documented By: BRUCE Buprenorphine/Naloxone (Buprenorphine/Naloxone 8/2 Mg Film) 1 film SUBLINGUAL TID [facility] Last Admin: 12/22/22 09:13 Dose: 1 film Documented By: BRUCE Buspirone HCl (Buspirone Hcl 5 Mg Tablet) 5 mg PO TID [facility] Last Admin: 12/22/22 09:13 Dose: 5 mg Documented By: BRUCE Carvedilol (Carvedilol 12.5 Mg Tablet) 12.5 mg PO BID [facility]; Protocol Last Admin: 12/22/22 09:12 Dose: 12.5 mg Documented By: BRUCE Dextrose (Dextrose 50 % 25 Gm/50 Ml Syringe) 25 gm IVPUSH Q15M PRN; Protocol PRN Reason: per Hypoglycemia Standing Ord. Dextrose (Dextrose 50 % 25 Gm/50 Ml Syringe) 25 gm IVPUSH Q15M PRN; Protocol PRN Reason: per Hypoglycemia Standing Ord. Dolutegravir Sodium (Dolutegravir Sodium 50 Mg Tablet) 50 mg PO DAILY [facility] Last Admin: 12/22/22 09:12 Dose: 50 mg Documented By: BRUCE Enoxaparin Sodium (Enoxaparin Sodium 30 Mg/0.3 Ml Syringe) 30 mg SUBCUT Q24H [facility] Last Admin: 12/22/22 11:57 Dose: 30 mg Documented By: BRUCE Fentanyl (Fentanyl Citrate/Pf 100 Mcg/2 Ml Vial) 50 mcg IVPUSH Q5M PRN; Protocol PRN Reason: Pain, Severe (Pain Scale 7-10) Last Admin: 12/20/22 17:40 Dose: 50 mcg Documented By: BLAIR Gabapentin (Gabapentin 600 Mg Tablet) 600 mg PO BID [facility] Last Admin: 12/22/22 09:12 Dose: 600 mg Documented By: BRUCE Glucose (Glucose Gel 15 Gm Gel..Gram.) 15 gm PO Q15M PRN; Protocol PRN Reason: per Hypoglycemia Standing Ord. Hydralazine HCl (Hydralazine Hcl 20 Mg/Ml Vial) 10 mg IVPUSH Q20M PRN PRN Reason: SBP >160 Last Admin: 12/21/22 00:02 Dose: 10 mg Documented By: SARAHI Hydromorphone HCl (Hydromorphone Hcl 0.5 Mg/0.5 Ml Syringe) 0.5 mg IVPUSH Q2H PRN; Protocol PRN Reason: Pain, Severe (Pain Scale 7-10) Last Admin: 12/22/22 09:06 Dose: 0.5 mg Documented By: BRUCE Lactated Ringer's (Lr) 1,000 mls @ 100 mls/hr IVCONT .Q10H [facility] Last Admin: 12/22/22 09:06 Dose: 100 mls/hr Documented By: BRUCE Acetaminophen (Ofirmev) 1,000 mg in 100 mls @ 400 mls/hr IV Q6H [facility] Last Infusion: 12/22/22 09:31 Dose: 0 mls/hr Documented By: BRUCE Insulin Human Lispro (Insulin Lispro 100 Unit/Ml 3 Ml Vial) 0 unit SUBCUT QIDACHS [facility]; Protocol Last Admin: 12/22/22 11:20 Dose: Not Given Documented By: BRUCE Non-Admin Reason: No Insulin Coverage Lamivudine (Lamivudine 150 Mg Tablet) 300 mg PO DAILY [facility] Last Admin: 12/22/22 09:12 Dose: 300 mg Documented By: BRUCE Loratadine (Loratadine 10 Mg Tablet) 10 mg PO DAILY PRN PRN Reason: Allergic Symptoms Lorazepam (Lorazepam 2 Mg/Ml Vial) 0.5 mg IVPUSH Q8H PRN PRN Reason: anxiety/restlessness Last Admin: 12/21/22 20:56 Dose: 0.5 mg Documented By: SARAHI Omeprazole (Omeprazole 40 Mg Capsule.Dr) 40 mg PO BID@0630,1630 [facility] Last Admin: 12/22/22 05:12 Dose: 40 mg Documented By: SARAHI Ondansetron HCl (Ondansetron Hcl 4 Mg/2 Ml Vial) 4 mg IVPUSH Q8H PRN PRN Reason: Nausea and Vomiting Last Admin: 12/20/22 20:32 Dose: 4 mg Documented By: SARAHI Ondansetron HCl (Ondansetron Hcl 4 Mg/2 Ml Vial) 4 mg IVPUSH ONCE PRN PRN Reason: Nausea and Vomiting Sertraline HCl (Sertraline Hcl 25 Mg Tablet) 75 mg PO DAILY [facility] Last Admin: 12/22/22 09:12 Dose: 75 mg Documented By: BRUCE Sodium Chloride (0.9 % Sodium Chloride Flush 3 Ml Syringe) 3 ml IVFLUSH QSHIFT [facility] Last Admin: 12/22/22 09:05 Dose: 3 ml Documented By: BRUCE Trazodone HCl (Trazodone Hcl 100 Mg Tablet) 100 mg PO BEDTIME PRN PRN Reason: Sleep Last Admin: 12/21/22 01:00 Dose: 100 mg Documented By: SARAHI Zolpidem Tartrate (Zolpidem Tartrate 5 Mg Tablet) 5 mg PO BEDTIME PRN PRN Reason: Insomnia Labs 12/22/22 05:05 12/22/22 05:05 Labs: Laboratory Results - last 24 hr 12/21/22 12/21/22 12/22/22 16:06 20:05 05:05 MCV 105.3 H MCH 34.7 H MCHC 32.9 RDW 13.9 Plt Count 186 MPV 11.8 Immature Gran % (Auto) Cancelled Neut % (Auto) Cancelled Lymph % (Auto) Cancelled Hinds % (Auto) Cancelled Eos % (Auto) Cancelled Baso % (Auto) Cancelled Lymph # (Auto) Cancelled Hinds # (Auto) Cancelled Eos # (Auto) Cancelled Baso # (Auto) Cancelled Abs Immat Gran (auto) Cancelled Absolute Neuts (auto) Cancelled Absolute Nucleated RBC 0.020 H Nucleated RBC % (auto) 0.1 Neutrophils % (Manual) 67 Band Neutrophils % 15 H Lymphocytes % (Manual) 10 L Monocytes % (Manual) 7 Eosinophils % (Manual) 1 Abs Neuts (Manual) 14.8 H Lymphocytes # (Manual) 1.8 Monocytes # (Manual) 1.3 H Eosinophils # (Manual) 0.2 Nucleated RBCs 1 H Smudge Cells PRESENT Toxic Vacuolation PRESENT Dohle Bodies PRESENT Platelet Estimate NORMAL Plt Morphology Comment NORMAL RBC Morphology NOTED Basophilic Stippling 1+ (0-2) Macrocytosis 1+ (5-14) Pappenheimer Bodies PRESENT Hammer-Mecca Bodies PRESENT Crawford Cells 2+ (3-5) Acanthocytes (Spur) 1+ (0-2) Anion Gap Estim Creat Clear Calc Estimated GFR POC Glucose 140 H 150 H Random Glucose Calcium 12/22/22 12/22/22 12/22/22 05:05 08:05 11:00 MCV MCH MCHC RDW Plt Count MPV Immature Gran % (Auto) Neut % (Auto) Lymph % (Auto) Hinds % (Auto) Eos % (Auto) Baso % (Auto) Lymph # (Auto) Hinds # (Auto) Eos # (Auto) Baso # (Auto) Abs Immat Gran (auto) Absolute Neuts (auto) Absolute Nucleated RBC Nucleated RBC % (auto) Neutrophils % (Manual) Band Neutrophils % Lymphocytes % (Manual) Monocytes % (Manual) Eosinophils % (Manual) Abs Neuts (Manual) Lymphocytes # (Manual) Monocytes # (Manual) Eosinophils # (Manual) Nucleated RBCs Smudge Cells Toxic Vacuolation Dohle Bodies Platelet Estimate Plt Morphology Comment RBC Morphology Basophilic Stippling Macrocytosis Pappenheimer Bodies Hammer-Mecca Bodies Balta Cells Acanthocytes (Spur) Anion Gap 11 L Estim Creat Clear Calc 40.3 Estimated GFR 38 POC Glucose 126 H 122 H Random Glucose 134 H Calcium 9.0 Assessment and Plan (1) S/P exploratory laparotomy: Status: Acute (2) Small bowel obstruction: Status: Acute Plan 72-year-old male with history of qci-pnxqpps-xrbdkcvct type 2 diabetes, HIV on do Dovato following with [facility] ID, hypertension, ulcerative colitis s/p colectomy with ileostomy, GERD, and mood disorder admitted to General surgery for conservative management of small-bowel obstruction with consult placed to hospitalist service for medical management. Acute SBO ?chronically elevated leukocytosis, normal UA, normal chest x-ray, CT abdomen pelvis not suggestive of? infection. s/p exploratory laparotomy, extensive lysis of adhesions , small-bowel resection (12/20/22). pain control with dilaudid. [id number] type 2 diabetes -avoid POC glucose Less than 200 -advanced diabetic diet per General surgery -hold on Humalog per sliding scale given NPO status, hold Jardiance ?acute on chronic kidney disease? stage III continue IV fluid renal function trending down HIV -last viral load undetectable, last CD4 count greater than 900 -continue dovato hypertension -continue carvedilol, amlodipine, hold hydrochlorothiazide setting of MARY JO ?mood disorder -continue Zoloft, trazodone, BuSpar, resume? gabapentin possible mary jo on possible ckd 3: in : cr was around 1.5 range continue iv hydration if cr worsen nephro eval. DVT prophylaxis? on Lovenox ?dispo-as per primary team. Time Spent With Patient Time: Total time managing care of this patient today ____ minutes. Quality Stroke Does the patient have a stroke diagnosis?: No VTE Prior VTE?: No VTE Risk Level:: Surgical - moderate VTE Device Contraindication: N/A - Device Ordered VTE Drug Contraindication: N/A - Med Ordered
[2022-12-22 15:19] VITALS: BP 164/78; PULSE 62; RESP 18; TEMP 36; O2SAT 94
[2022-12-22 16:11] LABS: Glucose, Whole Blood 128 mg/dL (60-115)
[2022-12-22] MEDS: LORazepam 2 MG/ML VIAL 0.5 MG IVPUSH (18:38)
[2022-12-22 19:08] VITALS: BP 168/84; PULSE 64; RESP 18; TEMP 36; O2SAT 97
[2022-12-22 19:20] VITALS: BP 152/70
[2022-12-22 20:21] LABS: Glucose, Whole Blood 105 mg/dL (60-115)
[2022-12-22] MEDS: traZODone HCL 100 MG TABLET PO (23:17)
[2022-12-22] MEDS: ondansetron HCL 4 MG/2 ML VIAL IVPUSH (23:46)
[2022-12-22 23:47] VITALS: RESP 16
[2022-12-23] VITALS (14 sets, daily range): BP systolic 135–182; BP diastolic 60–80; PULSE 60–75; RESP 16–19; TEMP 36.1–36.8; O2SAT 95–96
[2022-12-23] MEDS: HYDROmorphone HCl 0.5 MG/0.5 ML SYRINGE IVPUSH ×8 (02:16→19:35)
[2022-12-23] MEDS: Acetaminophen 1,000 MG/100 ML PIGGYBACK 400 MG IV ×4 (02:16→19:59)
[2022-12-23] MEDS: hydrALAZINE HCl 20 MG/ML VIAL 10 MG IVPUSH ×3 (05:16→15:03)
[2022-12-23] MEDS: Omeprazole 40 MG CAPSULE.DR PO (05:30)
[2022-12-23 06:07] LABS: MANUAL DIFF FLAG NO
[2022-12-23 06:12] LABS: Basophils Absolute Auto 0.1 X10*3/uL (0.0-0.2); Basophils Percent Auto 0.5 % (0-2); Eosinophils Absolute Auto 0.2 X10*3/uL (0.0-0.4); Hematocrit 34.2 % (42.0-52.0); Imm Gran Abs Auto 0.13 X10*3/uL (0.00-0.03); Imm Gran Pct Auto 0.8 % (0.0-0.4); Lymphocytes Absolute Auto 1.3 X10*3/uL (1.2-4.9); Mean Corpuscular HGB Conc 32.2 g/dl (31.0-36.0); Mean Corpuscular Hemoglobin 33.8 pg (27.0-33.0); Mean Corpuscular Volume 105.2 fL (80.0-98.0); Mean Platelet Volume 12.2 fL (9.4-12.4); Monocytes Absolute Auto 1.5 X10*3/uL (0.1-1.2); NRBC Pct Auto 0.2 /100WBC (0.0-0.2); Neutrophils Absolute Auto 13.5 x10*3/uL (2.0-8.3); Neutrophils Percent Auto 80.7 % (45-73); Platelet Count 208 X10*3/uL (160-400); Red Blood Count 3.25 X10*6/uL (4.60-5.80); Red Cell Distribution Width 14.2 % (11.0-16.0); White Blood Count 16.7 X10*3/uL (4.8-10.8)
[2022-12-23 06:28] LABS: Anion Gap 12 (12-20); Blood Urea Nitrogen 41 mg/dL (9-16); Calcium 8.9 mg/dL (8.4-10.2); Carbon Dioxide 26 mmol/L (22-29); Chloride 108 mmol/L (96-108); Creatinine Clr Calc Pharmacy 53.8; Estimated Glomerular Filt Rate 54; Glucose Fasting 109 mg/dL (60-99); Potassium 3.2 mmol/L (3.3-5.1); Sodium 143 mmol/L (135-145)
[2022-12-23 07:39] LABS: Glucose, Whole Blood 105 mg/dL (60-115)
[2022-12-23] MEDS: Buprenorphine/Naloxone 8/2 mg FILM 1 FILM SUBLINGUAL ×3 (08:54→20:02)
[2022-12-23] MEDS: amLODIPine Besylate 5 MG TABLET PO (08:54)
[2022-12-23] MEDS: busPIRone HCl 5 MG TABLET PO ×3 (08:54→20:02)
[2022-12-23] MEDS: Potassium Chloride/H20 10 MEQ/100 ML PIGGYBACK 100 MEQ IV ×4 (08:55→12:17)
[2022-12-23] MEDS: Gabapentin 600 MG TABLET PO ×2 (08:55→20:02)
[2022-12-23] MEDS: Sertraline HCL 25 MG TABLET 75 MG PO (08:55)
[2022-12-23] MEDS: lamiVUDine 150 MG TABLET 300 MG PO (08:55)
[2022-12-23] MEDS: carvediloL 12.5 MG TABLET PO ×2 (08:55→20:02)
[2022-12-23] MEDS: Dolutegravir Sodium 50 MG TABLET PO (08:55)
--- NOTE | 2022-12-23 10:10 | P.PNIM_ITS ---
Subjective Subjective Date of Service: 12/23/22 Interval History: sbo,htn , ckd Review of Systems abd pain seems slightly improving Ostomy now with soft stool output Physical Exam Vital Signs: Vital Signs: Last Vital Signs Temp 97.9 F 12/23/22 07:09 Pulse 70 12/23/22 07:09 Resp 18 12/23/22 07:48 BP 168/78 H 12/23/22 08:57 Pulse Ox 95 12/23/22 07:09 O2 Del Method Nasal Cannula 12/23/22 07:09 O2 Flow Rate 2 12/23/22 07:09 FiO2 33 12/20/22 18:30 BMI result Body Mass Index 33.4 Appearance: Alert.? Oriented X3.? not in distress.? cvs: rrr, [id number]. res: clear to auscultation ,no rhonchii or wheezing abd:no rigidity or guarding ,abd soft-small amount of liquid stool in ostomy bag ext pulses present , no cyanosis. neuro: axo3 , nonfocal. Objective Data Active Medications Albuterol Sulfate (Albuterol Sulfate 90 Mcg 8 Gm Inhaler) 2 puff INHALE RQID PRN PRN Reason: Respiratory Distress Amlodipine Besylate (Amlodipine Besylate 5 Mg Tablet) 5 mg PO DAILY [facility]; Protocol Last Admin: 12/23/22 08:54 Dose: 5 mg Documented By: COTEMA Buprenorphine/Naloxone (Buprenorphine/Naloxone 8/2 Mg Film) 1 film SUBLINGUAL TID [facility] Last Admin: 12/23/22 08:54 Dose: 1 film Documented By: COTEMA Buspirone HCl (Buspirone Hcl 5 Mg Tablet) 5 mg PO TID [facility] Last Admin: 12/23/22 08:54 Dose: 5 mg Documented By: COTEMA Carvedilol (Carvedilol 12.5 Mg Tablet) 12.5 mg PO BID [facility]; Protocol Last Admin: 12/23/22 08:55 Dose: 12.5 mg Documented By: COTEMA Dextrose (Dextrose 50 % 25 Gm/50 Ml Syringe) 25 gm IVPUSH Q15M PRN; Protocol PRN Reason: per Hypoglycemia Standing Ord. Dextrose (Dextrose 50 % 25 Gm/50 Ml Syringe) 25 gm IVPUSH Q15M PRN; Protocol PRN Reason: per Hypoglycemia Standing Ord. Dolutegravir Sodium (Dolutegravir Sodium 50 Mg Tablet) 50 mg PO DAILY [facility] Last Admin: 12/23/22 08:55 Dose: 50 mg Documented By: JEANINE Enoxaparin Sodium (Enoxaparin Sodium 30 Mg/0.3 Ml Syringe) 30 mg SUBCUT Q24H [facility] Last Admin: 12/22/22 11:57 Dose: 30 mg Documented By: BRUCE Fentanyl (Fentanyl Citrate/Pf 100 Mcg/2 Ml Vial) 50 mcg IVPUSH Q5M PRN; Protocol PRN Reason: Pain, Severe (Pain Scale 7-10) Last Admin: 12/20/22 17:40 Dose: 50 mcg Documented By: GUILLAUMEERSLuz Gabapentin (Gabapentin 600 Mg Tablet) 600 mg PO BID [facility] Last Admin: 12/23/22 08:55 Dose: 600 mg Documented By: JEANINE Glucose (Glucose Gel 15 Gm Gel..Gram.) 15 gm PO Q15M PRN; Protocol PRN Reason: per Hypoglycemia Standing Ord. Hydralazine HCl (Hydralazine Hcl 20 Mg/Ml Vial) 10 mg IVPUSH Q20M PRN PRN Reason: SBP >160 Last Admin: 12/23/22 07:48 Dose: 10 mg Documented By: JEANINE Hydromorphone HCl (Hydromorphone Hcl 0.5 Mg/0.5 Ml Syringe) 0.5 mg IVPUSH Q2H PRN; Protocol PRN Reason: Pain, Severe (Pain Scale 7-10) Last Admin: 12/23/22 07:48 Dose: 0.5 mg Documented By: JEANINE Lactated Ringer's (Lr) 1,000 mls @ 100 mls/hr IVCONT .Q10H [facility] Last Admin: 12/22/22 23:47 Dose: 100 mls/hr Documented By: OZORALB Acetaminophen (Ofirmev) 1,000 mg in 100 mls @ 400 mls/hr IV Q6H [facility] Last Infusion: 12/23/22 08:09 Dose: 0 mls/hr Documented By: BRENDANEMA Potassium Chloride (Potassium Chloride/H20) 10 meq in 100 mls @ 100 mls/hr IV Q1H [facility] Stop: 12/23/22 12:59 Last Admin: 12/23/22 08:55 Dose: 100 mls/hr Documented By: JEANINE Insulin Human Lispro (Insulin Lispro 100 Unit/Ml 3 Ml Vial) 0 unit SUBCUT QIDACHS [facility]; Protocol Last Admin: 12/23/22 07:20 Dose: Not Given Documented By: JEANINE Non-Admin Reason: No Insulin Coverage Lamivudine (Lamivudine 150 Mg Tablet) 300 mg PO DAILY [facility] Last Admin: 12/23/22 08:55 Dose: 300 mg Documented By: JEANINE Loratadine (Loratadine 10 Mg Tablet) 10 mg PO DAILY PRN PRN Reason: Allergic Symptoms Lorazepam (Lorazepam 2 Mg/Ml Vial) 0.5 mg IVPUSH Q8H PRN PRN Reason: anxiety/restlessness Last Admin: 12/22/22 18:38 Dose: 0.5 mg Documented By: BRUCE Omeprazole (Omeprazole 40 Mg Capsule.Dr) 40 mg PO BID@0630,1630 [facility] Last Admin: 12/23/22 05:30 Dose: 40 mg Documented By: WAYLON Ondansetron HCl (Ondansetron Hcl 4 Mg/2 Ml Vial) 4 mg IVPUSH Q8H PRN PRN Reason: Nausea and Vomiting Last Admin: 12/22/22 23:46 Dose: 4 mg Documented By: WAYLON Ondansetron HCl (Ondansetron Hcl 4 Mg/2 Ml Vial) 4 mg IVPUSH ONCE PRN PRN Reason: Nausea and Vomiting Sertraline HCl (Sertraline Hcl 25 Mg Tablet) 75 mg PO DAILY [facility] Last Admin: 12/23/22 08:55 Dose: 75 mg Documented By: JEANINE Sodium Chloride (0.9 % Sodium Chloride Flush 3 Ml Syringe) [facility] Last Admin: 12/23/22 07:20 Dose: Not Given Documented By: JEANINE Non-Admin Reason: IV Running Trazodone HCl (Trazodone Hcl 100 Mg Tablet) 100 mg PO BEDTIME PRN PRN Reason: Sleep Last Admin: 12/22/22 23:17 Dose: 100 mg Documented By: WAYLON Zolpidem Tartrate (Zolpidem Tartrate 5 Mg Tablet) 5 mg PO BEDTIME PRN PRN Reason: Insomnia Labs 12/23/22 05:26 12/23/22 05:26 Labs: Laboratory Results - last 24 hr 12/22/22 12/22/22 12/22/22 11:00 16:08 20:13 MCV MCH MCHC RDW Plt Count MPV Immature Gran % (Auto) Neut % (Auto) Lymph % (Auto) Haines % (Auto) Eos % (Auto) Baso % (Auto) Lymph # (Auto) Haines # (Auto) Eos # (Auto) Baso # (Auto) Abs Immat Gran (auto) Absolute Neuts (auto) Absolute Nucleated RBC Nucleated RBC % (auto) Anion Gap Estim Creat Clear Calc Estimated GFR POC Glucose 122 H 128 H 105 Fasting Glucose Calcium Magnesium 12/23/22 12/23/22 12/23/22 05:26 05:26 07:14 MCV 105.2 H MCH 33.8 H MCHC 32.2 RDW 14.2 Plt Count 208 MPV 12.2 Immature Gran % (Auto) 0.8 H Neut % (Auto) 80.7 H Lymph % (Auto) 8.0 L Haines % (Auto) 9.0 Eos % (Auto) 1.0 Baso % (Auto) 0.5 Lymph # (Auto) 1.3 Haines # (Auto) 1.5 H Eos # (Auto) 0.2 Baso # (Auto) 0.1 Abs Immat Gran (auto) 0.13 H Absolute Neuts (auto) 13.5 H Absolute Nucleated RBC 0.030 H Nucleated RBC % (auto) 0.2 Anion Gap 12 Estim Creat Clear Calc 53.8 Estimated GFR 54 POC Glucose 105 Fasting Glucose 109 H Calcium 8.9 Magnesium 2.0 Assessment and Plan (1) Small bowel obstruction: Status: Acute Plan 72-year-old male with history of jii-gmhtrim-iyumqbxew type 2 diabetes, HIV on do Dovato following with [facility] ID, hypertension, ulcerative colitis s/p colectomy with ileostomy, GERD, and mood disorder admitted to General surgery for conservative management of small-bowel obstruction with consult placed to hospitalist service for medical management. Acute SBO ?chronically elevated leukocytosis, normal UA, normal chest x-ray, CT abdomen pelvis not suggestive of? infection. s/p exploratory laparotomy, extensive lysis of adhesions , small-bowel resection (12/20/22). pain control with dilaudid. bod-kudighc-uresszrwt type 2 diabetes -avoid POC glucose Less than 200 -advanced diabetic diet per General surgery -hold on Humalog per sliding scale given NPO status, hold Jardiance ?acute on chronic kidney disease? stage III continue IV fluid renal function trending down HIV -last viral load undetectable, last CD4 count greater than 900 -continue dovato hypertension -continue carvedilol, amlodipine, hold hydrochlorothiazide setting of MARY JO ?mood disorder -continue Zoloft, trazodone, BuSpar, resume? gabapentin possible mary jo on possible? ckd 3: in : cr was around 1.5 range continue iv hydration if? cr worsen nephro eval. DVT prophylaxis? on Lovenox ?dispo-as per primary team. Time Spent With Patient Time: Total time managing care of this patient today ____ minutes. Quality Stroke Does the patient have a stroke diagnosis?: No VTE Prior VTE?: No VTE Risk Level:: Surgical - moderate VTE Device Contraindication: N/A - Device Ordered VTE Drug Contraindication: N/A - Med Ordered
[2022-12-23] MEDS: Lactated Ringers 1,000 ML 100 ML IVCONT ×2 (10:12→21:09)
[2022-12-23] MEDS: Enoxaparin Sodium 30 MG/0.3 ML SYRINGE SUBCUT (10:13)
[2022-12-23 11:37] LABS: Glucose, Whole Blood 104 mg/dL (60-115)
[2022-12-23 16:42] LABS: Glucose, Whole Blood 103 mg/dL (60-115)
[2022-12-23] MEDS: LORazepam 2 MG/ML VIAL 0.5 MG IVPUSH (17:05)
--- NOTE | 2022-12-23 17:24 | P.PNGS_ITS ---
Subjective Subjective Date of Service: 12/23/22 Interval history: Patient would like his NG tube removed. Has not been out of bed. Has not been using his incentive spirometer. Modest NG tube output. White blood cell 16, H&H stable. Physical Exam Vital Signs: Vital Signs: Last Vital Signs Temp 98.2 F 12/23/22 14:50 Pulse 75 12/23/22 15:25 Resp 16 12/23/22 14:50 BP 168/72 H 12/23/22 15:25 Pulse Ox 95 12/23/22 14:50 O2 Del Method Nasal Cannula 12/23/22 14:50 O2 Flow Rate 2 12/23/22 14:50 FiO2 33 12/20/22 18:30 BMI result Body Mass Index 33.4 GI: Other: Abdomen soft. Ileostomy with semi-solid output. Incision clean dry and intact. Objective Data Active Medications Albuterol Sulfate (Albuterol Sulfate 90 Mcg 8 Gm Inhaler) 2 puff INHALE RQID PRN PRN Reason: Respiratory Distress Amlodipine Besylate (Amlodipine Besylate 5 Mg Tablet) 5 mg PO DAILY [facility]; Protocol Last Admin: 12/23/22 08:54 Dose: 5 mg Documented By: COTEMA Buprenorphine/Naloxone (Buprenorphine/Naloxone 8/2 Mg Film) 1 film SUBLINGUAL TID [facility] Last Admin: 12/23/22 14:21 Dose: 1 film Documented By: COTEMA Buspirone HCl (Buspirone Hcl 5 Mg Tablet) 5 mg PO TID [facility] Last Admin: 12/23/22 14:21 Dose: 5 mg Documented By: COTEMA Carvedilol (Carvedilol 12.5 Mg Tablet) 12.5 mg PO BID [facility]; Protocol Last Admin: 12/23/22 08:55 Dose: 12.5 mg Documented By: COTEMA Dextrose (Dextrose 50 % 25 Gm/50 Ml Syringe) 25 gm IVPUSH Q15M PRN; Protocol PRN Reason: per Hypoglycemia Standing Ord. Dextrose (Dextrose 50 % 25 Gm/50 Ml Syringe) 25 gm IVPUSH Q15M PRN; Protocol PRN Reason: per Hypoglycemia Standing Ord. Dolutegravir Sodium (Dolutegravir Sodium 50 Mg Tablet) 50 mg PO DAILY [facility] Last Admin: 12/23/22 08:55 Dose: 50 mg Documented By: COTEMA Enoxaparin Sodium (Enoxaparin Sodium 30 Mg/0.3 Ml Syringe) 30 mg SUBCUT Q24H [facility] Last Admin: 12/23/22 10:13 Dose: 30 mg Documented By: COTEMA Fentanyl (Fentanyl Citrate/Pf 100 Mcg/2 Ml Vial) 50 mcg IVPUSH Q5M PRN; Protocol PRN Reason: Pain, Severe (Pain Scale 7-10) Last Admin: 12/20/22 17:40 Dose: 50 mcg Documented By: BLAIR Gabapentin (Gabapentin 600 Mg Tablet) 600 mg PO BID [facility] Last Admin: 12/23/22 08:55 Dose: 600 mg Documented By: JEANINE Glucose (Glucose Gel 15 Gm Gel..Gram.) 15 gm PO Q15M PRN; Protocol PRN Reason: per Hypoglycemia Standing Ord. Hydralazine HCl (Hydralazine Hcl 20 Mg/Ml Vial) 10 mg IVPUSH Q20M PRN PRN Reason: SBP >160 Last Admin: 12/23/22 15:03 Dose: 10 mg Documented By: JEANINE Hydromorphone HCl (Hydromorphone Hcl 0.5 Mg/0.5 Ml Syringe) 0.5 mg IVPUSH Q2H PRN; Protocol PRN Reason: Pain, Severe (Pain Scale 7-10) Last Admin: 12/23/22 17:06 Dose: 0.5 mg Documented By: COTEMA Lactated Ringer's (Lr) 1,000 mls @ 100 mls/hr IVCONT .Q10H [facility] Last Admin: 12/23/22 10:12 Dose: 100 mls/hr Documented By: COTEMA Acetaminophen (Ofirmev) 1,000 mg in 100 mls @ 400 mls/hr IV Q6H [facility] Last Infusion: 12/23/22 14:42 Dose: 0 mls/hr Documented By: JEANINE Insulin Human Lispro (Insulin Lispro 100 Unit/Ml 3 Ml Vial) 0 unit SUBCUT QIDACHS [facility]; Protocol Last Admin: 12/23/22 16:50 Dose: Not Given Documented By: COTEMA Non-Admin Reason: No Insulin Coverage Lamivudine (Lamivudine 150 Mg Tablet) 300 mg PO DAILY [facility] Last Admin: 12/23/22 08:55 Dose: 300 mg Documented By: HO.COTEMA Loratadine (Loratadine 10 Mg Tablet) 10 mg PO DAILY PRN PRN Reason: Allergic Symptoms Lorazepam (Lorazepam 2 Mg/Ml Vial) 0.5 mg IVPUSH Q8H PRN PRN Reason: anxiety/restlessness Last Admin: 12/23/22 17:05 Dose: 0.5 mg Documented By: JEANINE Omeprazole (Omeprazole 40 Mg Capsule.Dr) 40 mg PO BID@0630,1630 [facility] Last Admin: 12/23/22 15:03 Dose: Not Given Documented By: JEANINE Non-Admin Reason: Patient Refused Ondansetron HCl (Ondansetron Hcl 4 Mg/2 Ml Vial) 4 mg IVPUSH Q8H PRN PRN Reason: Nausea and Vomiting Last Admin: 12/22/22 23:46 Dose: 4 mg Documented By: WAYLON Ondansetron HCl (Ondansetron Hcl 4 Mg/2 Ml Vial) 4 mg IVPUSH ONCE PRN PRN Reason: Nausea and Vomiting Sertraline HCl (Sertraline Hcl 25 Mg Tablet) 75 mg PO DAILY [facility] Last Admin: 12/23/22 08:55 Dose: 75 mg Documented By: JEANINE Sodium Chloride (0.9 % Sodium Chloride Flush 3 Ml Syringe) 3 ml IVFLUSH QSHIFT [facility] Last Admin: 12/23/22 14:20 Dose: Not Given Documented By: JEANINE Non-Admin Reason: IV Running Trazodone HCl (Trazodone Hcl 100 Mg Tablet) 100 mg PO BEDTIME PRN PRN Reason: Sleep Last Admin: 12/22/22 23:17 Dose: 100 mg Documented By: WAYLON Zolpidem Tartrate (Zolpidem Tartrate 5 Mg Tablet) 5 mg PO BEDTIME PRN PRN Reason: Insomnia Labs 12/23/22 05:26 12/23/22 05:26 Labs: Laboratory Results - last 24 hr 12/22/22 12/23/22 12/23/22 20:13 05:26 05:26 MCV 105.2 H MCH 33.8 H MCHC 32.2 RDW 14.2 Plt Count 208 MPV 12.2 Immature Gran % (Auto) 0.8 H Neut % (Auto) 80.7 H Lymph % (Auto) 8.0 L Benzie % (Auto) 9.0 Eos % (Auto) 1.0 Baso % (Auto) 0.5 Lymph # (Auto) 1.3 Benzie # (Auto) 1.5 H Eos # (Auto) 0.2 Baso # (Auto) 0.1 Abs Immat Gran (auto) 0.13 H Absolute Neuts (auto) 13.5 H Absolute Nucleated RBC 0.030 H Nucleated RBC % (auto) 0.2 Anion Gap 12 Estim Creat Clear Calc 53.8 Estimated GFR 54 POC Glucose 105 Fasting Glucose 109 H Calcium 8.9 Magnesium 2.0 12/23/22 12/23/22 12/23/22 07:14 11:18 16:29 MCV MCH MCHC RDW Plt Count MPV Immature Gran % (Auto) Neut % (Auto) Lymph % (Auto) Benzie % (Auto) Eos % (Auto) Baso % (Auto) Lymph # (Auto) Benzie # (Auto) Eos # (Auto) Baso # (Auto) Abs Immat Gran (auto) Absolute Neuts (auto) Absolute Nucleated RBC Nucleated RBC % (auto) Anion Gap Estim Creat Clear Calc Estimated GFR POC Glucose 105 104 103 Fasting Glucose Calcium Magnesium Procedures Date of Service Date of Service: 12/23/22 Progress Note: A&P Assessment and plan (1) S/P exploratory laparotomy: Status: Acute (2) Small bowel obstruction: Status: Acute Plan DC NG tube, sips of p.o., out of bed with assistance, incentive spirometry, follow I's and O's. Time Spent With Patient Time: Total time managing care of this patient today ____ minutes. Quality Stroke Does the patient have a stroke diagnosis?: No VTE Prior VTE?: No VTE Risk Level:: Surgical - moderate VTE Device Contraindication: N/A - Device Ordered VTE Drug Contraindication: N/A - Med Ordered
[2022-12-23] MEDS: 0.9 % Sodium Chloride Flush 3 ML SYRINGE IVFLUSH (20:02)
[2022-12-23 20:18] LABS: Glucose, Whole Blood 90 mg/dL (60-115)
[2022-12-24] VITALS (21 sets, daily range): BP systolic 134–192; BP diastolic 66–93; PULSE 70–86; RESP 15–20; TEMP 36.1–37; O2SAT 92–95
[2022-12-24] MEDS: HYDROmorphone HCl 0.5 MG/0.5 ML SYRINGE IVPUSH ×8 (00:58→23:37)
[2022-12-24] MEDS: traZODone HCL 100 MG TABLET PO (00:58)
[2022-12-24] MEDS: LORazepam 2 MG/ML VIAL 0.5 MG IVPUSH ×2 (03:01→11:23)
[2022-12-24] MEDS: Omeprazole 40 MG CAPSULE.DR PO ×2 (05:43→15:29)
[2022-12-24] MEDS: Lactated Ringers 1,000 ML 100 ML IVCONT (05:44)
[2022-12-24 07:31] LABS: Glucose, Whole Blood 131 mg/dL (60-115)
[2022-12-24] MEDS: busPIRone HCl 5 MG TABLET PO ×3 (07:45→20:19)
[2022-12-24] MEDS: lamiVUDine 150 MG TABLET 300 MG PO (07:45)
[2022-12-24] MEDS: amLODIPine Besylate 10 MG TABLET PO (07:45)
[2022-12-24] MEDS: Gabapentin 600 MG TABLET PO ×2 (07:45→20:19)
[2022-12-24] MEDS: carvediloL 12.5 MG TABLET PO (07:45)
[2022-12-24] MEDS: Sertraline HCL 25 MG TABLET 75 MG PO (07:45)
[2022-12-24] MEDS: Dolutegravir Sodium 50 MG TABLET PO (07:46)
[2022-12-24] MEDS: Acetaminophen 1,000 MG/100 ML PIGGYBACK 400 MG IV (07:46)
[2022-12-24 08:31] LABS: Potassium 3.6 mmol/L (3.3-5.1)
[2022-12-24] MEDS: Buprenorphine/Naloxone 8/2 mg FILM 1 FILM SUBLINGUAL ×3 (08:49→20:18)
--- NOTE | 2022-12-24 10:20 | P.PNIM_ITS ---
Subjective Subjective Date of Service: 12/24/22 Interval History: sbo,htn , ckd Review of Systems abd pain seems slightly improving Ostomy now with soft stool output Physical Exam Vital Signs: Vital Signs: Last Vital Signs Temp 98.6 F 12/24/22 07:09 Pulse 77 12/24/22 07:09 Resp 19 12/24/22 07:46 BP 179/80 H 12/24/22 07:09 Pulse Ox 95 12/24/22 07:09 O2 Del Method Nasal Cannula 12/24/22 07:09 O2 Flow Rate 2 12/24/22 07:09 FiO2 33 12/20/22 18:30 BMI result Body Mass Index 33.4 Appearance: Alert.? Oriented X3.? not in distress.? cvs: rrr, [id number]. res: clear to auscultation ,no rhonchii or wheezing abd:no rigidity or guarding ,abd soft-small amount of liquid stool in ostomy bag ext pulses present , no cyanosis. neuro: axo3 , nonfocal. Objective Data Active Medications Albuterol Sulfate (Albuterol Sulfate 90 Mcg 8 Gm Inhaler) 2 puff INHALE RQID PRN PRN Reason: Respiratory Distress Amlodipine Besylate (Amlodipine Besylate 10 Mg Tablet) 10 mg PO DAILY [facility]; Protocol Last Admin: 12/24/22 07:45 Dose: 10 mg Documented By: COTEMA Buprenorphine/Naloxone (Buprenorphine/Naloxone 8/2 Mg Film) 1 film SUBLINGUAL TID [facility] Last Admin: 12/24/22 08:49 Dose: 1 film Documented By: COTEMA Buspirone HCl (Buspirone Hcl 5 Mg Tablet) 5 mg PO TID [facility] Last Admin: 12/24/22 07:45 Dose: 5 mg Documented By: COTEMA Carvedilol (Carvedilol 12.5 Mg Tablet) 12.5 mg PO BID [facility]; Protocol Last Admin: 12/24/22 07:45 Dose: 12.5 mg Documented By: COTEMA Dextrose (Dextrose 50 % 25 Gm/50 Ml Syringe) 25 gm IVPUSH Q15M PRN; Protocol PRN Reason: per Hypoglycemia Standing Ord. Dextrose (Dextrose 50 % 25 Gm/50 Ml Syringe) 25 gm IVPUSH Q15M PRN; Protocol PRN Reason: per Hypoglycemia Standing Ord. Dolutegravir Sodium (Dolutegravir Sodium 50 Mg Tablet) 50 mg PO DAILY [facility] Last Admin: 12/24/22 07:46 Dose: 50 mg Documented By: JEANINE Enoxaparin Sodium (Enoxaparin Sodium 30 Mg/0.3 Ml Syringe) 30 mg SUBCUT Q24H [facility] Last Admin: 12/23/22 10:13 Dose: 30 mg Documented By: BRENDANEMA Fentanyl (Fentanyl Citrate/Pf 100 Mcg/2 Ml Vial) 50 mcg IVPUSH Q5M PRN; Protocol PRN Reason: Pain, Severe (Pain Scale 7-10) Last Admin: 12/20/22 17:40 Dose: 50 mcg Documented By: ANDERSO Gabapentin (Gabapentin 600 Mg Tablet) 600 mg PO BID [facility] Last Admin: 12/24/22 07:45 Dose: 600 mg Documented By: JEANINE Glucose (Glucose Gel 15 Gm Gel..Gram.) 15 gm PO Q15M PRN; Protocol PRN Reason: per Hypoglycemia Standing Ord. Hydralazine HCl (Hydralazine Hcl 20 Mg/Ml Vial) 10 mg IVPUSH Q20M PRN PRN Reason: SBP >160 Last Admin: 12/23/22 15:03 Dose: 10 mg Documented By: JEANINE Hydromorphone HCl (Hydromorphone Hcl 0.5 Mg/0.5 Ml Syringe) 0.5 mg IVPUSH Q2H PRN; Protocol PRN Reason: Pain, Severe (Pain Scale 7-10) Last Admin: 12/24/22 07:46 Dose: 0.5 mg Documented By: JEANINE Lactated Ringer's (Lr) 1,000 mls @ 100 mls/hr IVCONT .Q10H [facility] Last Admin: 12/24/22 05:44 Dose: 100 mls/hr Documented By: OZORALB Insulin Human Lispro (Insulin Lispro 100 Unit/Ml 3 Ml Vial) 0 unit SUBCUT QIDACHS [facility]; Protocol Last Admin: 12/24/22 07:35 Dose: Not Given Documented By: JEANINE Non-Admin Reason: No Insulin Coverage Lamivudine (Lamivudine 150 Mg Tablet) 300 mg PO DAILY [facility] Last Admin: 12/24/22 07:45 Dose: 300 mg Documented By: JEANINE Loratadine (Loratadine 10 Mg Tablet) 10 mg PO DAILY PRN PRN Reason: Allergic Symptoms Lorazepam (Lorazepam 2 Mg/Ml Vial) 0.5 mg IVPUSH Q8H PRN PRN Reason: anxiety/restlessness Last Admin: 12/24/22 03:01 Dose: 0.5 mg Documented By: WAYLON Omeprazole (Omeprazole 40 Mg Capsule.) 40 mg PO BID@0630,1630 [facility] Last Admin: 12/24/22 05:43 Dose: 40 mg Documented By: WAYLON Ondansetron HCl (Ondansetron Hcl 4 Mg/2 Ml Vial) 4 mg IVPUSH Q8H PRN PRN Reason: Nausea and Vomiting Last Admin: 12/22/22 23:46 Dose: 4 mg Documented By: WAYLON Ondansetron HCl (Ondansetron Hcl 4 Mg/2 Ml Vial) 4 mg IVPUSH ONCE PRN PRN Reason: Nausea and Vomiting Sertraline HCl (Sertraline Hcl 25 Mg Tablet) 75 mg PO DAILY [facility] Last Admin: 12/24/22 07:45 Dose: 75 mg Documented By: COTEMA Sodium Chloride (0.9 % Sodium Chloride Flush 3 Ml Syringe) 3 ml IVFLUSH QSHIFT [facility] Last Admin: 12/24/22 07:35 Dose: Not Given Documented By: COTEMA Non-Admin Reason: IV Running Trazodone HCl (Trazodone Hcl 100 Mg Tablet) 100 mg PO BEDTIME PRN PRN Reason: Sleep Last Admin: 12/24/22 00:58 Dose: 100 mg Documented By: WAYLON Labs 12/23/22 05:26 12/24/22 08:19 Labs: Laboratory Results - last 24 hr 12/23/22 12/23/22 12/23/22 11:18 16:29 20:12 POC Glucose 104 103 90 12/24/22 07:12 POC Glucose 131 H Assessment and Plan (1) Small bowel obstruction: Status: Acute Plan 72-year-old male with history of [id number] type 2 diabetes, HIV on do Dovato following with [facility] ID, hypertension, ulcerative colitis s/p colectomy with ileostomy, GERD, and mood disorder admitted to General surgery for conservative management of small-bowel obstruction with consult placed to hospitalist service for medical management. Acute SBO ?chronically elevated leukocytosis, normal UA, normal chest x-ray, CT abdomen pelvis not suggestive of? infection. s/p exploratory laparotomy, extensive lysis of adhesions , small-bowel resection (12/20/22). pain control with dilaudid. uni-[id number]-ytwerauah type 2 diabetes -avoid POC glucose Less than 200 -advanced diabetic diet per General surgery -hold on Humalog per sliding scale given NPO status, hold Jardiance ?acute on chronic kidney disease? stage III continue IV fluid renal function tr ending down HIV -last viral load undetectable, last CD4 count greater than 900 -continue dovato hypertension -continue carvedilol, amlodipine, hold hydrochlorothiazide setting of MARY JO ?mood disorder -continue Zoloft, trazodone, BuSpar, resume? gabapentin possible mary jo on possible? ckd 3: in : cr was around 1.5 range continue iv hydration if? cr worsen nephro eval. DVT prophylaxis? on Lovenox ?dispo-as per primary team. Time Spent With Patient Time: Total time managing care of this patient today ____ minutes. Quality Stroke Does the patient have a stroke diagnosis?: No VTE Prior VTE?: No VTE Risk Level:: Surgical - moderate VTE Device Contraindication: N/A - Device Ordered VTE Drug Contraindication: N/A - Med Ordered
[2022-12-24] MEDS: Enoxaparin Sodium 30 MG/0.3 ML SYRINGE SUBCUT (10:49)
[2022-12-24 11:27] LABS: Glucose, Whole Blood 165 mg/dL (60-115)
--- NOTE | 2022-12-24 15:38 | P.PNGS_ITS ---
Subjective Subjective Date of Service: 12/24/22 Interval history: Uneventful evening. Patient tolerated NG tube being removed. He is taking in liquids. He has minimal incisional discomfort. Physical Exam Vital Signs: Vital Signs: Last Vital Signs Temp 96.9 F 12/24/22 15:08 Pulse 70 12/24/22 15:08 Resp 15 12/24/22 15:08 BP 172/84 H 12/24/22 15:08 Pulse Ox 92 12/24/22 15:08 O2 Del Method Room Air 12/24/22 15:08 O2 Flow Rate 2 12/24/22 07:09 FiO2 33 12/20/22 18:30 BMI result Body Mass Index 33.4 GI: Other: Wound clean dry and intact. Ostomy with semi-solid output. Objective Data Active Medications Albuterol Sulfate (Albuterol Sulfate 90 Mcg 8 Gm Inhaler) 2 puff INHALE RQID PRN PRN Reason: Respiratory Distress Amlodipine Besylate (Amlodipine Besylate 10 Mg Tablet) 10 mg PO DAILY [facility]; Protocol Last Admin: 12/24/22 07:45 Dose: 10 mg Documented By: JEANINE Buprenorphine/Naloxone (Buprenorphine/Naloxone 8/2 Mg Film) 1 film SUBLINGUAL TID [facility] Last Admin: 12/24/22 14:16 Dose: 1 film Documented By: ERNIE Buspirone HCl (Buspirone Hcl 5 Mg Tablet) 5 mg PO TID [facility] Last Admin: 12/24/22 14:16 Dose: 5 mg Documented By: ERNIE Carvedilol (Carvedilol 12.5 Mg Tablet) 12.5 mg PO BID [facility]; Protocol Last Admin: 12/24/22 07:45 Dose: 12.5 mg Documented By: JEANINE Dextrose (Dextrose 50 % 25 Gm/50 Ml Syringe) 25 gm IVPUSH Q15M PRN; Protocol PRN Reason: per Hypoglycemia Standing Ord. Dextrose (Dextrose 50 % 25 Gm/50 Ml Syringe) 25 gm IVPUSH Q15M PRN; Protocol PRN Reason: per Hypoglycemia Standing Ord. Dolutegravir Sodium (Dolutegravir Sodium 50 Mg Tablet) 50 mg PO DAILY [facility] Last Admin: 12/24/22 07:46 Dose: 50 mg Documented By: BRENDANEMA Enoxaparin Sodium (Enoxaparin Sodium 30 Mg/0.3 Ml Syringe) 30 mg SUBCUT Q24H [facility] Last Admin: 12/24/22 10:49 Dose: 30 mg Documented By: COTEMA Fentanyl (Fentanyl Citrate/Pf 100 Mcg/2 Ml Vial) 50 mcg IVPUSH Q5M PRN; Protocol PRN Reason: Pain, Severe (Pain Scale 7-10) Last Admin: 12/20/22 17:40 Dose: 50 mcg Documented By: BLAIR Gabapentin (Gabapentin 600 Mg Tablet) 600 mg PO BID [facility] Last Admin: 12/24/22 07:45 Dose: 600 mg Documented By: COTEMA Glucose (Glucose Gel 15 Gm Gel..Gram.) 15 gm PO Q15M PRN; Protocol PRN Reason: per Hypoglycemia Standing Ord. Hydralazine HCl (Hydralazine Hcl 20 Mg/Ml Vial) 10 mg IVPUSH Q20M PRN PRN Reason: SBP >160 Last Admin: 12/23/22 15:03 Dose: 10 mg Documented By: BRENDANEMA Hydromorphone HCl (Hydromorphone Hcl 0.5 Mg/0.5 Ml Syringe) 0.5 mg IVPUSH Q2H PRN; Protocol PRN Reason: Pain, Severe (Pain Scale 7-10) Last Admin: 12/24/22 15:01 Dose: 0.5 mg Documented By: JEANINE Insulin Human Lispro (Insulin Lispro 100 Unit/Ml 3 Ml Vial) 0 unit SUBCUT QIDACHS [facility]; Protocol Last Admin: 12/24/22 11:22 Dose: Not Given Documented By: JEANINE Non-Admin Reason: No Insulin Coverage Lamivudine (Lamivudine 150 Mg Tablet) 300 mg PO DAILY [facility] Last Admin: 12/24/22 07:45 Dose: 300 mg Documented By: COTEMA Loratadine (Loratadine 10 Mg Tablet) 10 mg PO DAILY PRN PRN Reason: Allergic Symptoms Lorazepam (Lorazepam 2 Mg/Ml Vial) 0.5 mg IVPUSH Q8H PRN PRN Reason: anxiety/restlessness Last Admin: 12/24/22 11:23 Dose: 0.5 mg Documented By: BRENDANEMA Omeprazole (Omeprazole 40 Mg Negrita.) 40 mg PO BID@0630,1630 [facility] Last Admin: 12/24/22 15:29 Dose: 40 mg Documented By: GOMEZ Ondansetron HCl (Ondansetron Hcl 4 Mg/2 Ml Vial) 4 mg IVPUSH Q8H PRN PRN Reason: Nausea and Vomiting Last Admin: 12/22/22 23:46 Dose: 4 mg Documented By: WAYLON Ondansetron HCl (Ondansetron Hcl 4 Mg/2 Ml Vial) 4 mg IVPUSH ONCE PRN PRN Reason: Nausea and Vomiting Sertraline HCl (Sertraline Hcl 25 Mg Tablet) 75 mg PO DAILY [facility] Last Admin: 12/24/22 07:45 Dose: 75 mg Documented By: COTEMA Sodium Chloride (0.9 % Sodium Chloride Flush 3 Ml Syringe) 3 ml IVFLUSH QSHIFT [facility] Last Admin: 12/24/22 15:30 Dose: Not Given Documented By: GOMEZ Non-Admin Reason: IV Running Trazodone HCl (Trazodone Hcl 100 Mg Tablet) 100 mg PO BEDTIME PRN PRN Reason: Sleep Last Admin: 12/24/22 00:58 Dose: 100 mg Documented By: WAYLON Labs 12/23/22 05:26 12/24/22 08:19 Labs: Laboratory Results - last 24 hr 12/23/22 12/23/22 12/24/22 16:29 20:12 07:12 POC Glucose 103 90 131 H 12/24/22 11:06 POC Glucose 165 H Procedures Date of Service Date of Service: 12/24/22 Progress Note: A&P Assessment and plan (1) S/P exploratory laparotomy: Status: Acute (2) Small bowel obstruction: Status: Acute Plan Patient does not wish to have his diet advanced be on clear liquids at this time. Out of bed, incentive spirometry, follow outputs Time Spent With Patient Time: Total time managing care of this patient today ____ minutes. Quality Stroke Does the patient have a stroke diagnosis?: No VTE Prior VTE?: No VTE Risk Level:: Surgical - moderate VTE Device Contraindication: N/A - Device Ordered VTE Drug Contraindication: N/A - Med Ordered
[2022-12-24 16:24] LABS: Glucose, Whole Blood 169 mg/dL (60-115)
--- NOTE | 2022-12-24 16:35 | PC.NURSE ---
Addendum entered by Rosemary Mac RN 12/24/22 18:23: dose of IV Hydralazine was adninistered as ordered,BP went down initially but is elevated 186/87 pulse 80 one hour after administration,patient is complaining of feeling very weak,BS was checked is 217,Dr. Barkley was notified Original Note: BP elevated 172/82 pulse 73 ,IV fluid stopped as ordered ,Dr. Aggarwal notified
[2022-12-24] MEDS: hydrALAZINE HCl 20 MG/ML VIAL 10 MG IVPUSH (17:12)
[2022-12-24 18:15] LABS: Glucose, Whole Blood 217 mg/dL (60-115)
[2022-12-24] MEDS: hydrALAZINE HCl 25 MG TABLET PO (19:05)
[2022-12-24 20:13] LABS: Glucose, Whole Blood 183 mg/dL (60-115)
[2022-12-24] MEDS: carvediloL 12.5 MG TABLET 25 MG PO (20:19)
[2022-12-24] MEDS: 0.9 % Sodium Chloride Flush 3 ML SYRINGE IVFLUSH (23:37)
[2022-12-25 00:20] VITALS: BP 128/67; PULSE 65; RESP 16; TEMP 36.6
[2022-12-25] MEDS: HYDROmorphone HCl 0.5 MG/0.5 ML SYRINGE IVPUSH ×5 (05:27→21:43)
[2022-12-25] MEDS: Omeprazole 40 MG CAPSULE.DR PO ×2 (05:27→17:23)
[2022-12-25 07:08] VITALS: BP 159/76; PULSE 78; RESP 18; TEMP 36.1; O2SAT 96
[2022-12-25 07:37] LABS: Glucose, Whole Blood 150 mg/dL (60-115)
[2022-12-25] MEDS: Sertraline HCL 25 MG TABLET 75 MG PO (08:30)
[2022-12-25] MEDS: 0.9 % Sodium Chloride Flush 3 ML SYRINGE IVFLUSH (08:30)
[2022-12-25] MEDS: Gabapentin 600 MG TABLET PO ×2 (08:31→20:20)
[2022-12-25] MEDS: Dolutegravir Sodium 50 MG TABLET PO (08:31)
[2022-12-25] MEDS: carvediloL 12.5 MG TABLET 25 MG PO ×2 (08:31→20:20)
[2022-12-25] MEDS: busPIRone HCl 5 MG TABLET PO ×3 (08:31→20:20)
[2022-12-25] MEDS: lamiVUDine 150 MG TABLET 300 MG PO (08:31)
[2022-12-25] MEDS: amLODIPine Besylate 10 MG TABLET PO (08:31)
[2022-12-25] MEDS: Buprenorphine/Naloxone 8/2 mg FILM 1 FILM SUBLINGUAL ×3 (08:32→20:20)
--- NOTE | 2022-12-25 10:07 | PM.PNGS ---
Subjective Subjective Date of Service: 12/25/22 <Sophie Zavaleta PA-C - Last Filed: 12/25/22 10:11> 12/25/22 <Jacky Vo MD - Last Filed: 12/25/22 13:13> Interval history: NGT removed over the weekend. He is on clear liquids and reports some mild nausea after eating. Ostomy continues with stool output. Has not been OOB. <Sophie Zavaleta PA-C - Last Filed: 12/25/22 10:11> Physical Exam Vital Signs: Vital Signs: Last Vital Signs Temp 96.9 F 12/25/22 07:08 Pulse 78 12/25/22 07:08 Resp 18 12/25/22 07:08 BP 159/76 H 12/25/22 07:08 Pulse Ox 96 12/25/22 07:08 O2 Del Method Nasal Cannula 12/25/22 07:08 O2 Flow Rate 2 12/25/22 07:08 FiO2 33 12/20/22 18:30 BMI result Body Mass Index 33.4 <Sophie Zavaleta PA-C - Last Filed: 12/25/22 10:11> Const: General: comfortable, no acute distress and alert <CLAIRE Esposito Last Filed: 12/25/22 10:11> Orientation/consciousness: patient oriented x3 <Sophie Zavaleta PA-C - Last Filed: 12/25/22 10:11> Resp: Effort & Inspection: normal respiratory effort <Sophie Zavaleta PA-C - Last Filed: 12/25/22 10:11> GI: Inspection: No distended and Yes incision (clean) <Sophie Zavaleta PA-C - Last Filed: 12/25/22 10:11> Palpation (GI): Soft to palpation, Tenderness to palpation present (GI) (mild incisional), no guarding and not rigid <CLAIRE Esposito Last Filed: 12/25/22 10:11> Skin: General skin exam: no rashes or lesions noted <CLAIRE Esposito Last Filed: 12/25/22 10:11> Neuro: General: patient oriented x3 and moves all extremities <Sophie Zavaleta PA-C - Last Filed: 12/25/22 10:11> Objective Data Active Medications Albuterol Sulfate (Albuterol Sulfate 90 Mcg 8 Gm Inhaler) 2 puff INHALE RQID PRN PRN Reason: Respiratory Distress Amlodipine Besylate (Amlodipine Besylate 10 Mg Tablet) 10 mg PO DAILY [facility]; Protocol Last Admin: 12/25/22 08:31 Dose: 10 mg Documented By: BRINA Buprenorphine/Naloxone (Buprenorphine/Naloxone 8/2 Mg Film) 1 film SUBLINGUAL TID [facility] Last Admin: 12/25/22 08:32 Dose: 1 film Documented By: BRINA Buspirone HCl (Buspirone Hcl 5 Mg Tablet) 5 mg PO TID [facility] Last Admin: 12/25/22 08:31 Dose: 5 mg Documented By: BRINA Carvedilol (Carvedilol 12.5 Mg Tablet) 25 mg PO BID [facility]; Protocol Last Admin: 12/25/22 08:31 Dose: 25 mg Documented By: BRINA Dextrose (Dextrose 50 % 25 Gm/50 Ml Syringe) 25 gm IVPUSH Q15M PRN; Protocol PRN Reason: per Hypoglycemia Standing Ord. Dextrose (Dextrose 50 % 25 Gm/50 Ml Syringe) 25 gm IVPUSH Q15M PRN; Protocol PRN Reason: per Hypoglycemia Standing Ord. Dolutegravir Sodium (Dolutegravir Sodium 50 Mg Tablet) 50 mg PO DAILY [facility] Last Admin: 12/25/22 08:31 Dose: 50 mg Documented By: BRINA Enoxaparin Sodium (Enoxaparin Sodium 30 Mg/0.3 Ml Syringe) 30 mg SUBCUT Q24H [facility] Last Admin: 12/24/22 10:49 Dose: 30 mg Documented By: COTEMA Gabapentin (Gabapentin 600 Mg Tablet) 600 mg PO BID [facility] Last Admin: 12/25/22 08:31 Dose: 600 mg Documented By: BRINA Glucose (Glucose Gel 15 Gm Gel..Gram.) 15 gm PO Q15M PRN; Protocol PRN Reason: per Hypoglycemia Standing Ord. Hydralazine HCl (Hydralazine Hcl 20 Mg/Ml Vial) 10 mg IVPUSH Q20M PRN PRN Reason: SBP >160 Last Admin: 12/24/22 17:12 Dose: 10 mg Documented By: GOMEZ Hydromorphone HCl (Hydromorphone Hcl 0.5 Mg/0.5 Ml Syringe) 0.5 mg IVPUSH Q2H PRN; Protocol PRN Reason: Pain, Severe (Pain Scale 7-10) Last Admin: 12/25/22 08:40 Dose: 0.5 mg Documented By: BRINA Insulin Human Lispro (Insulin Lispro 100 Unit/Ml 3 Ml Vial) 0 unit SUBCUT QIDACHS [facility]; Protocol Last Admin: 12/25/22 07:29 Dose: Not Given Documented By: BRINA Non-Admin Reason: No Insulin Coverage Lamivudine (Lamivudine 150 Mg Tablet) 300 mg PO DAILY [facility] Last Admin: 12/25/22 08:31 Dose: 300 mg Documented By: BRINA Loratadine (Loratadine 10 Mg Tablet) 10 mg PO DAILY PRN PRN Reason: Allergic Symptoms Lorazepam (Lorazepam 2 Mg/Ml Vial) 0.5 mg IVPUSH Q8H PRN PRN Reason: anxiety/restlessness Last Admin: 12/24/22 11:23 Dose: 0.5 mg Documented By: JEANINE Omeprazole (Omeprazole 40 Mg Capsule.Dr) 40 mg PO BID@0630,1630 [facility] Last Admin: 12/25/22 05:27 Dose: 40 mg Documented By: BRINA Ondansetron HCl (Ondansetron Hcl 4 Mg/2 Ml Vial) 4 mg IVPUSH Q8H PRN PRN Reason: Nausea and Vomiting Last Admin: 12/22/22 23:46 Dose: 4 mg Documented By: WAYLON Ondansetron HCl (Ondansetron Hcl 4 Mg/2 Ml Vial) 4 mg IVPUSH ONCE PRN PRN Reason: Nausea and Vomiting Sertraline HCl (Sertraline Hcl 25 Mg Tablet) 75 mg PO DAILY [facility] Last Admin: 12/25/22 08:30 Dose: 75 mg Documented By: BRINA Sodium Chloride (0.9 % Sodium Chloride Flush 3 Ml Syringe) 3 ml IVFLUSH [facility] Last Admin: 12/25/22 08:30 Dose: 3 ml Documented By: BRINA Trazodone HCl (Trazodone Hcl 100 Mg Tablet) 100 mg PO BEDTIME PRN PRN Reason: Sleep Last Admin: 12/24/22 00:58 Dose: 100 mg Documented By: WAYLON <Sophie Zavaleta PA-C - Last Filed: 12/25/22 10:11> Labs CBC & Chem 7: 12/23/22 05:26 12/24/22 08:19 <Sophie Zavaleta PA-C - Last Filed: 12/25/22 10:11> Labs: Laboratory Results - last 24 hr 12/24/22 12/24/22 12/24/22 11:06 16:20 18:12 POC Glucose 165 H 169 H 217 H 12/24/22 12/25/22 19:53 07:17 POC Glucose 183 H 150 H <Sophie Zavaleta PA-C - Last Filed: 12/25/22 10:11> Procedures Date of Service Date of Service: 12/25/22 <Sophie Zavaleta PA-C - Last Filed: 12/25/22 10:11> 12/25/22 <Jacky Vo MD - Last Filed: 12/25/22 13:13> Progress Note: A&P Assessment and plan (1) S/P exploratory laparotomy: Status: Acute <Sophie Zavaleta PA-C - Last Filed: 12/25/22 10:11> (2) Small bowel obstruction: Status: Acute <Sophie Zavaleta PA-C - Last Filed: 12/25/22 10:11> Assessment and Plan: 72 year old male with hx of total colectomy admitted with SBO now POD #5 s/p ex lap, extensive LEVI, small bowel resection. NGT removed over the weekend and on clear liquids but c/o nausea with clears. Ostomy continues with stool output, abd benign and incision clean. Will cont clear liquids for now. Strongly encouraged OOB/ambulation. Will consult PT for deconditioning, patient lives alone. <Sophie Zavaleta PA-C - Last Filed: 12/25/22 10:11> 72 year old male with hx of total colectomy admitted with SBO now POD #5 s/p ex lap, extensive LEVI, small bowel resection. NGT removed over the weekend and on clear liquids but c/o nausea with clears. Ostomy continues with stool output, abd benign and incision clean. Will cont clear liquids for now. Strongly encouraged OOB/ambulation. Will consult PT for deconditioning, patient lives alone. Patient continues on clears and is not interested in advancing the diet. Ostomy functioning well with both gas and stool in the bag. Agree with the above assessment and plan. Will start PPN, requested PICC; will need Nephrology consult prior to PICC per radiology. Start TPN once PICC in place. <Jacky Vo MD - Last Filed: 12/25/22 13:13> Time Spent With Patient Time: Total time managing care of this patient today ____ minutes. <Sophie Zavaleta PA-C - Last Filed: 12/25/22 10:11> Quality Stroke Does the patient have a stroke diagnosis?: No <Sophie Zavaleta PA-C - Last Filed: 12/25/22 10:11> VTE Prior VTE?: No <Sophie Zavaleta PA-C - Last Filed: 12/25/22 10:11> VTE Risk Level:: Surgical - moderate <Sophie Zavaleta PA-C - Last Filed: 12/25/22 10:11> VTE Device Contraindication: N/A - Device Ordered <Sophie Zavaleta PA-C - Last Filed: 12/25/22 10:11> VTE Drug Contraindication: N/A - Med Ordered <Sophie Zavaleta PA-C - Last Filed: 12/25/22 10:11>
[2022-12-25 10:24] VITALS: BMI 33.4
--- NOTE | 2022-12-25 10:40 | HO.PM.IMPN ---
Subjective Subjective Date of Service: 12/25/22 Interval History: sbo,htn , ckd Review of Systems abd pain seems slightly improving Ostomy now with soft stool output. Physical Exam Vital Signs: Vital Signs: Last Vital Signs Temp 96.9 F 12/25/22 07:08 Pulse 78 12/25/22 07:08 Resp 18 12/25/22 07:08 BP 159/76 H 12/25/22 07:08 Pulse Ox 96 12/25/22 07:08 O2 Del Method Nasal Cannula 12/25/22 07:08 O2 Flow Rate 2 12/25/22 07:08 FiO2 33 12/20/22 18:30 BMI result Body Mass Index 33.4 Appearance: Alert.? Oriented X3.? not in distress.? cvs: rrr, [id number]. res: clear to auscultation ,no rhonchii or wheezing abd:no rigidity or guarding ,abd soft-small amount of liquid stool in ostomy bag ext pulses present , no cyanosis. neuro: axo3 , nonfocal. Objective Data Active Medications Albuterol Sulfate (Albuterol Sulfate 90 Mcg 8 Gm Inhaler) 2 puff INHALE RQID PRN PRN Reason: Respiratory Distress Amlodipine Besylate (Amlodipine Besylate 10 Mg Tablet) 10 mg PO DAILY [facility]; Protocol Last Admin: 12/25/22 08:31 Dose: 10 mg Documented By: BRINA Buprenorphine/Naloxone (Buprenorphine/Naloxone 8/2 Mg Film) 1 film SUBLINGUAL TID [facility] Last Admin: 12/25/22 08:32 Dose: 1 film Documented By: BRINA Buspirone HCl (Buspirone Hcl 5 Mg Tablet) 5 mg PO TID [facility] Last Admin: 12/25/22 08:31 Dose: 5 mg Documented By: BRINA Carvedilol (Carvedilol 12.5 Mg Tablet) 25 mg PO BID [facility]; Protocol Last Admin: 12/25/22 08:31 Dose: 25 mg Documented By: BRINA Dextrose (Dextrose 50 % 25 Gm/50 Ml Syringe) 25 gm IVPUSH Q15M PRN; Protocol PRN Reason: per Hypoglycemia Standing Ord. Dextrose (Dextrose 50 % 25 Gm/50 Ml Syringe) 25 gm IVPUSH Q15M PRN; Protocol PRN Reason: per Hypoglycemia Standing Ord. Dolutegravir Sodium (Dolutegravir Sodium 50 Mg Tablet) 50 mg PO DAILY [facility] Last Admin: 12/25/22 08:31 Dose: 50 mg Documented By: BRINA Enoxaparin Sodium (Enoxaparin Sodium 30 Mg/0.3 Ml Syringe) 30 mg SUBCUT Q24H [facility] Last Admin: 12/24/22 10:49 Dose: 30 mg Documented By: COTEMA Gabapentin (Gabapentin 600 Mg Tablet) 600 mg PO BID [facility] Last Admin: 12/25/22 08:31 Dose: 600 mg Documented By: BRINA Glucose (Glucose Gel 15 Gm Gel..Gram.) 15 gm PO Q15M PRN; Protocol PRN Reason: per Hypoglycemia Standing Ord. Hydromorphone HCl (Hydromorphone Hcl 0.5 Mg/0.5 Ml Syringe) 0.5 mg IVPUSH Q2H PRN; Protocol PRN Reason: Pain, Severe (Pain Scale 7-10) Last Admin: 12/25/22 08:40 Dose: 0.5 mg Documented By: BRINA Insulin Human Lispro (Insulin Lispro 100 Unit/Ml 3 Ml Vial) 0 unit SUBCUT QIDACHS [facility]; Protocol Last Admin: 12/25/22 07:29 Dose: Not Given Documented By: BRINA Non-Admin Reason: No Insulin Coverage Lamivudine (Lamivudine 150 Mg Tablet) 300 mg PO DAILY [facility] Last Admin: 12/25/22 08:31 Dose: 300 mg Documented By: BRINA Loratadine (Loratadine 10 Mg Tablet) 10 mg PO DAILY PRN PRN Reason: Allergic Symptoms Lorazepam (Lorazepam 2 Mg/Ml Vial) 0.5 mg IVPUSH Q8H PRN PRN Reason: anxiety/restlessness Last Admin: 12/24/22 11:23 Dose: 0.5 mg Documented By: JEANINE Omeprazole (Omeprazole 40 Mg Negrita.) 40 mg PO BID@0630,1630 [facility] Last Admin: 12/25/22 05:27 Dose: 40 mg Documented By: BRINA Ondansetron HCl (Ondansetron Hcl 4 Mg/2 Ml Vial) 4 mg IVPUSH Q8H PRN PRN Reason: Nausea and Vomiting Last Admin: 12/22/22 23:46 Dose: 4 mg Documented By: WAYLON Pharmacy Consult (Consult Rx Parenteral Nutrition Ordering) 1 each MISCELLANE DAILY PRN PRN Reason: Consult order Sertraline HCl (Sertraline Hcl 25 Mg Tablet) 75 mg PO DAILY [facility] Last Admin: 12/25/22 08:30 Dose: 75 mg Documented By: BRINA Sodium Chloride (0.9 % Sodium Chloride Flush 3 Ml Syringe) 3 ml IVFLUSH QSHIFT [facility] Last Admin: 12/25/22 08:30 Dose: 3 ml Documented By: BRINA Trazodone HCl (Trazodone Hcl 100 Mg Tablet) 100 mg PO BEDTIME PRN PRN Reason: Sleep Last Admin: 12/24/22 00:58 Dose: 100 mg Documented By: WAYLON Labs 12/23/22 05:26 12/24/22 08:19 Labs: Laboratory Results - last 24 hr 12/24/22 12/24/22 12/24/22 11:06 16:20 18:12 POC Glucose 165 H 169 H 217 H 12/24/22 12/25/22 19:53 07:17 POC Glucose 183 H 150 H Assessment and Plan (1) Small bowel obstruction: Status: Acute (2) Acute kidney injury superimposed on CKD: Status: Acute Assessment and Plan: 72-year-old male with history of nom-ldraxay-[id number] type 2 diabetes, HIV on do Dovato following with [facility] ID, hypertension, ulcerative colitis s/p colectomy with ileostomy, GERD, and mood disorder admitted to General surgery for conservative management of small-bowel obstruction with consult placed to hospitalist service for medical management. Acute SBO ?chronically elevated leukocytosis, normal UA, normal chest x-ray, CT abdomen pelvis not suggestive of? infection. s/p exploratory laparotomy, extensive lysis of adhesions , small-bowel resection (12/20/22). pain control with dilaudid. byx-bebeepb-vngqfdxit type 2 diabetes -avoid POC glucose Less than 200 -advanced diabetic diet per General surgery -hold on Humalog per sliding scale given NPO status, hold Jardiance ?acute on chronic kidney disease? stage III continue IV fluid renal function trending down HIV -last viral load undetectable, last CD4 count greater than 900 -continue dovato hypertension -continue carvedilol, amlodipine, hold hydrochlorothiazide setting of MARY JO ?mood disorder -continue Zoloft, trazodone, BuSpar, resume? gabapentin possible mary jo on possible? ckd 3: in : cr was around 1.5 range continue iv hydration if? cr worsen nephro eval. DVT prophylaxis? on Lovenox ?dispo-as per primary team. Time Spent With Patient Time: Total time managing care of this patient today ____ minutes. Quality Stroke Does the patient have a stroke diagnosis?: No VTE Prior VTE?: No VTE Risk Level:: Surgical - moderate VTE Device Contraindication: N/A - Device Ordered VTE Drug Contraindication: N/A - Med Ordered
--- NOTE | 2022-12-25 10:47 | MHC.CLN ---
NUTRITION PATIENT WITH SBO WITH CLEAR LIQUID DIET. UNABLE TO MEET NUTRITIONAL NEEDS PO. PATIENT TO RECEIVE PICC TODAY AND START PARENTERAL NUTRITION. IF PPN, RECOMMEND START D10AA4.25 AT 35 ML PER HOUR; 36 G PROTEIN; 84 G DEXTROSE; NO LIPIDS. IF TPN, RECOMMEND START D15AA5 AT 30 ML PER HOUR; 36 G PROTEIN, 108 G DEXTROSE; NO LIPIDS. SEE CLINICAL NUTRITION ASSESSMENT 12/25/22.
[2022-12-25] MEDS: Enoxaparin Sodium 30 MG/0.3 ML SYRINGE SUBCUT (11:21)
[2022-12-25 11:33] LABS: Glucose, Whole Blood 156 mg/dL (60-115)
[2022-12-25 11:52] LABS: Albumin Level 2.5 g/dL (3.5-5.0); Anion Gap 12 (12-20); Blood Urea Nitrogen 40 mg/dL (9-16); Calcium 8.6 mg/dL (8.4-10.2); Carbon Dioxide 27 mmol/L (22-29); Chloride 103 mmol/L (96-108); Creatinine Clr Calc Pharmacy 55.5; Estimated Glomerular Filt Rate 56; Glucose Random 176 mg/dL (60-115); Magnesium 1.9 mg/dL (1.6-2.6); Potassium 3.5 mmol/L (3.3-5.1); Sodium 138 mmol/L (135-145)
[2022-12-25] MEDS: Potassium Phosphate/NS 15 MMOL/250 ML PLAST..BAG 62.5 MMOL IV ×2 (13:00→17:23)
--- NOTE | 2022-12-25 13:20 | PM.PNNEP ---
Subjective Subjective Date of Service: 12/25/22 Interval history: sbo,htn , ckd Physical Exam Vital Signs: Vital Signs: Last Vital Signs Temp 96.9 F 12/25/22 07:08 Pulse 78 12/25/22 07:08 Resp 18 12/25/22 07:08 BP 159/76 H 12/25/22 07:08 Pulse Ox 96 12/25/22 07:08 O2 Del Method Nasal Cannula 12/25/22 07:08 O2 Flow Rate 2 12/25/22 07:08 FiO2 33 12/20/22 18:30 BMI result Body Mass Index 33.4 Objective Data Labs 12/23/22 05:26 12/25/22 11:04 Labs: Laboratory Results - last 24 hr 12/24/22 12/24/22 12/24/22 16:20 18:12 19:53 Sodium Potassium Chloride Carbon Dioxide Anion Gap BUN Creatinine Estim Creat Clear Calc Estimated GFR POC Glucose 169 H 217 H 183 H Random Glucose Calcium Phosphorus Magnesium Albumin 12/25/22 12/25/22 12/25/22 07:17 11:04 11:17 Sodium 138 Potassium 3.5 Chloride 103 Carbon Dioxide 27 Anion Gap 12 BUN 40 H Creatinine 1.27 Estim Creat Clear Calc 55.5 Estimated GFR 56 POC Glucose 150 H 156 H Random Glucose 176 H Calcium 8.6 Phosphorus 2.0 L Magnesium 1.9 Albumin 2.5 L Procedures Date of Service Date of Service: 12/25/22 Assessment & Plan Assessment and plan (1) CKD (chronic kidney disease): Status: Acute Plan CKD 3- Creatinine ar baseline MARY JO resolved No absolute contraindication for PICC line Thank you Time Spent With Patient Time: Total time managing care of this patient today ____ minutes. Progress Note: Quality Stroke Does the patient have a stroke diagnosis?: No
[2022-12-25] MEDS: LORazepam 2 MG/ML VIAL 0.5 MG IVPUSH (14:27)
--- NOTE | 2022-12-25 14:29 | MHC.CM.PN ---
per rounds pt being followed by surgery archana follow for dc orders from same
[2022-12-25 15:02] VITALS: BP 163/78; PULSE 70; RESP 18; TEMP 36.2; O2SAT 96
[2022-12-25 16:14] LABS: Glucose, Whole Blood 168 mg/dL (60-115)
[2022-12-25] MEDS: ondansetron HCL 4 MG/2 ML VIAL IVPUSH (17:47)
[2022-12-25 19:24] VITALS: BP 163/81; PULSE 71; RESP 18; TEMP 36.3; O2SAT 94
[2022-12-25] MEDS: Parenteral Nutrition 840 ML 35 ML IV (21:30)
[2022-12-25 21:45] LABS: Glucose, Whole Blood 146 mg/dL (60-115)
--- NOTE | 2022-12-26 01:20 | PC.NURSE ---
Pt vomited large amt of brown liquid at 2300 washed up no further n/v HOB elevated resting comfortably at present time.
[2022-12-26] MEDS: HYDROmorphone HCl 0.5 MG/0.5 ML SYRINGE IVPUSH ×7 (02:09→22:16)
[2022-12-26] MEDS: ondansetron HCL 4 MG/2 ML VIAL IVPUSH (02:10)
[2022-12-26 03:05] VITALS: BP 138/68; PULSE 72; RESP 18; TEMP 36.3; O2SAT 93
[2022-12-26] MEDS: Omeprazole 40 MG CAPSULE.DR PO ×2 (05:20→16:36)
[2022-12-26] MEDS: Loratadine 10 MG TABLET PO (05:28)
[2022-12-26 07:45] VITALS: BP 138/92; PULSE 90; RESP 20; TEMP 36.3; O2SAT 98
[2022-12-26 07:46] VITALS: BP 130/65; PULSE 77; RESP 20; TEMP 36.1; O2SAT 97
[2022-12-26 07:46] LABS: Glucose, Whole Blood 149 mg/dL (60-115)
[2022-12-26 07:52] LABS: Albumin Level 2.3 g/dL (3.5-5.0); Magnesium 1.8 mg/dL (1.6-2.6); Phosphorus 3.6 mg/dL (2.7-4.5)
--- NOTE | 2022-12-26 07:58 | PM.PNGS ---
Subjective Subjective Date of Service: 12/26/22 Interval history: Feels improved today with decreased abdominal pain and decreased nausea. Did have an episode of vomiting yesterday night, but feels better today. He would like to try a regular diet. Physical Exam Vital Signs: Vital Signs: Last Vital Signs Temp 97.0 F 12/26/22 07:46 Pulse 77 12/26/22 07:46 Resp 20 12/26/22 07:46 BP 130/65 12/26/22 07:46 Pulse Ox 97 12/26/22 07:46 O2 Del Method Room Air 12/26/22 07:46 O2 Flow Rate 2 12/26/22 03:05 FiO2 33 12/20/22 18:30 BMI result Body Mass Index 33.4 Const: General: no acute distress Nutritional Appearance: obese Orientation/consciousness: patient oriented x3 Limitations: no limitations Resp: Effort & Inspection: normal respiratory effort GI: Other: midline incision is clean and dry with a small amount of redness noted to the left of midline. Ostomy functioning well with semisolid stool and gas noted. Skin: General skin exam: no rashes or lesions noted Neuro: General: patient oriented x3 Extrem: General: Yes no clubbing, cyanosis or edema Objective Data Active Medications Albuterol Sulfate (Albuterol Sulfate 90 Mcg 8 Gm Inhaler) 2 puff INHALE RQID PRN PRN Reason: Respiratory Distress Amlodipine Besylate (Amlodipine Besylate 10 Mg Tablet) 10 mg PO DAILY [facility]; Protocol Last Admin: 12/25/22 08:31 Dose: 10 mg Documented By: BRINA Buprenorphine/Naloxone (Buprenorphine/Naloxone 8/2 Mg Film) 1 film SUBLINGUAL TID [facility] Last Admin: 12/25/22 20:20 Dose: 1 film Documented By: SARAHI Buspirone HCl (Buspirone Hcl 5 Mg Tablet) 5 mg PO TID [facility] Last Admin: 12/25/22 20:20 Dose: 5 mg Documented By: SARAHI Carvedilol (Carvedilol 12.5 Mg Tablet) 25 mg PO BID [facility]; Protocol Last Admin: 12/25/22 20:20 Dose: 25 mg Documented By: SARAHI Dextrose (Dextrose 50 % 25 Gm/50 Ml Syringe) 25 gm IVPUSH Q15M PRN; Protocol PRN Reason: per Hypoglycemia Standing Ord. Dextrose (Dextrose 50 % 25 Gm/50 Ml Syringe) 25 gm IVPUSH Q15M PRN; Protocol PRN Reason: per Hypoglycemia Standing Ord. Dolutegravir Sodium (Dolutegravir Sodium 50 Mg Tablet) 50 mg PO DAILY [facility] Last Admin: 12/25/22 08:31 Dose: 50 mg Documented By: BRINA Enoxaparin Sodium (Enoxaparin Sodium 30 Mg/0.3 Ml Syringe) 30 mg SUBCUT Q24H [facility] Last Admin: 12/25/22 11:21 Dose: 30 mg Documented By: BRINA Gabapentin (Gabapentin 600 Mg Tablet) 600 mg PO BID [facility] Last Admin: 12/25/22 20:20 Dose: 600 mg Documented By: SARAHI Glucose (Glucose Gel 15 Gm Gel..Gram.) 15 gm PO Q15M PRN; Protocol PRN Reason: per Hypoglycemia Standing Ord. Hydromorphone HCl (Hydromorphone Hcl 0.5 Mg/0.5 Ml Syringe) 0.5 mg IVPUSH Q2H PRN; Protocol PRN Reason: Pain, Severe (Pain Scale 7-10) Last Admin: 12/26/22 05:20 Dose: 0.5 mg Documented By: SARAHI Nutrition (Parenteral) (Parenteral Nutrition) 840 mls @ 35 mls/hr IV .Q24H [facility]; Protocol Stop: 12/26/22 20:59 Last Admin: 12/25/22 21:30 Dose: 35 mls/hr Documented By: SARAHI Insulin Human Lispro (Insulin Lispro 100 Unit/Ml 3 Ml Vial) 0 unit SUBCUT QIDACHS [facility]; Protocol Last Admin: 12/26/22 07:49 Dose: Not Given Documented By: CARROL Non-Admin Reason: No Insulin Coverage Lamivudine (Lamivudine 150 Mg Tablet) 300 mg PO DAILY [facility] Last Admin: 12/25/22 08:31 Dose: 300 mg Documented By: BRINA Loratadine (Loratadine 10 Mg Tablet) 10 mg PO DAILY PRN PRN Reason: Allergic Symptoms Last Admin: 12/26/22 05:28 Dose: 10 mg Documented By: SARAHI Lorazepam (Lorazepam 2 Mg/Ml Vial) 0.5 mg IVPUSH Q8H PRN PRN Reason: anxiety/restlessness Last Admin: 12/25/22 14:27 Dose: 0.5 mg Documented By: BRINA Omeprazole (Omeprazole 40 Mg Capsule.) 40 mg PO BID@0630,1630 [facility] Last Admin: 12/26/22 05:20 Dose: 40 mg Documented By: SARAHI Ondansetron HCl (Ondansetron Hcl 4 Mg/2 Ml Vial) 4 mg IVPUSH Q8H PRN PRN Reason: Nausea and Vomiting Last Admin: 12/26/22 02:10 Dose: 4 mg Documented By: SARAHI Pharmacy Consult (Consult Rx Parenteral Nutrition Ordering) 1 each MISCELLANE DAILY PRN PRN Reason: Consult order Sertraline HCl (Sertraline Hcl 25 Mg Tablet) 75 mg PO DAILY [facility] Last Admin: 12/25/22 08:30 Dose: 75 mg Documented By: BRINA Sodium Chloride (0.9 % Sodium Chloride Flush 3 Ml Syringe) 3 ml IVFLUSH QSHIFT [facility] Last Admin: 12/26/22 07:40 Dose: Not Given Documented By: CARROL Non-Admin Reason: IV Running Trazodone HCl (Trazodone Hcl 100 Mg Tablet) 100 mg PO BEDTIME PRN PRN Reason: Sleep Last Admin: 12/24/22 00:58 Dose: 100 mg Documented By: BRIIORALB Labs 12/23/22 05:26 12/25/22 11:04 Labs: Laboratory Results - last 24 hr 12/25/22 12/25/22 12/25/22 11:04 11:17 16:05 Anion Gap 12 Estim Creat Clear Calc 55.5 Estimated GFR 56 POC Glucose 156 H 168 H Random Glucose 176 H Calcium 8.6 Phosphorus 2.0 L Magnesium 1.9 Albumin 2.5 L 12/25/22 12/26/22 12/26/22 21:41 07:07 07:41 Anion Gap Estim Creat Clear Calc Estimated GFR POC Glucose 146 H 149 H Random Glucose Calcium Phosphorus 3.6 Magnesium 1.8 Albumin 2.3 L Procedures Date of Service Date of Service: 12/26/22 Progress Note: A&P Assessment and plan (1) S/P exploratory laparotomy: Status: Acute (2) Small bowel obstruction: Status: Acute (3) CKD (chronic kidney disease): Status: Acute Plan S/p exp lap, enterolysis, SBR now tolerating liquids. PICC line planned for today for TPN. Currently on PPN. Will try regular diet today as patient is feeling improved. Appreciate nephrology and hospitalist input. Encouraged OOB, IS. Time Spent With Patient Time: Total time managing care of this patient today ____ minutes. Quality Stroke Does the patient have a stroke diagnosis?: No VTE Prior VTE?: No VTE Risk Level:: Surgical - moderate VTE Device Contraindication: N/A - Device Ordered VTE Drug Contraindication: N/A - Med Ordered
[2022-12-26 08:04] LABS: Anion Gap 11 (12-20); Blood Urea Nitrogen 43 mg/dL (9-16); Calcium 8.8 mg/dL (8.4-10.2); Carbon Dioxide 29 mmol/L (22-29); Chloride 105 mmol/L (96-108); Estimated Glomerular Filt Rate 48; Glucose Random 149 mg/dL (60-115); Potassium 4.4 mmol/L (3.3-5.1); Sodium 141 mmol/L (135-145)
[2022-12-26] MEDS: carvediloL 12.5 MG TABLET 25 MG PO ×2 (08:30→20:02)
[2022-12-26] MEDS: Dolutegravir Sodium 50 MG TABLET PO (08:30)
[2022-12-26] MEDS: Sertraline HCL 25 MG TABLET 75 MG PO (08:30)
[2022-12-26] MEDS: amLODIPine Besylate 10 MG TABLET PO (08:31)
[2022-12-26] MEDS: Buprenorphine/Naloxone 8/2 mg FILM 1 FILM SUBLINGUAL ×3 (08:31→20:02)
[2022-12-26] MEDS: busPIRone HCl 5 MG TABLET PO ×3 (08:31→20:02)
[2022-12-26] MEDS: Gabapentin 600 MG TABLET PO ×2 (08:31→20:02)
[2022-12-26] MEDS: lamiVUDine 150 MG TABLET 300 MG PO (08:31)
--- NOTE | 2022-12-26 09:04 | PC.NURSE ---
Pt asked for OJ this AM. Educated that he is on a clear liquid diet and his status as a dietetic diet that this option is not appropriate per MD orders. Lacks understanding.
--- NOTE | 2022-12-26 10:48 | MHC.CLN ---
F/U PT'S DIET ADVANCED TO 2200DM PT RECEIVED PPN YESTERDAY AT 3ML/HR PROVIDED 428KCALS, 36G PROTEIN, 84G DEXTROSE PATIENT AWAITING PICC TODAY AND START PARENTERAL NUTRITION REVIEWED LABS DISCUSSED WITH PHARMACY IF PPN NEEDED, RECOMMEND INCREASING TO D10AA4.25 AT 55ML PER HOUR TO PROVIDE 673KCALS, 56G PROTEIN, 132G DEXTROSE; NO LIPIDS IF PICC PLACED BEFORE NOON 12/26 START TPN, RECOMMEND D15AA5 AT 50 ML PER HOUR TO PROVIDE 852KCALS, 60G PROTEIN, 180G DEXTROSE; NO LIPIDS CHECK TRIGS REPLETE LYTES NEEDED MONITOR PO INTAKE CLOSELY FOLLOWING WITH TEAM
--- NOTE | 2022-12-26 11:20 | HO.PICC ---
PICC Line Insertion NPICC Diagnosis: Small bowel obstruction Indication: TPN Pertinent Labs: Reviewed Technique: Following informed consent including risks, benefits and alternatives and using sterile technique including cap and mask, sterile gown, glove and drape, the Left arm was prepped and draped in the usual sterile fashion of full barrier technique with CHG. Following completion of [place] Protocol the skin and soft tissues were anesthetized with 1% Lidocaine plain. Using ultrasound guidance, Thew Left brachial vein access was obtained in the second attempt by this RN. Over an 0.018 wire through peel-away sheath, a 5 tunisian triple lumen PASV PICC line was positioned. Catheter length is 49 cm internal length, 0 external length ( it is at the 0 cm sammy ), for a total trimmed length of 49 cm. The procedure was performed in S272. Tip verification was performed by Gordon Spencer with Sherlock 3CG. Tip located in SVC. Ultrasound was used to document vein patency and for needle entry. A formal ultrasound picture and cardiac rhythm strip was recorded. [employer] has released the line for use and it is currently dressed with a StatLock, Tegaderm, and CHG disc. Verification has been performed for blood return and line patency. Arm Circumference: 30 cm Equipment: [employer] PowerPICC Solo HF Catheter with Sherlock 3 CG Catheter Type: 5 tunisian triple lumen PASV PICC Lot #: [id number]
[2022-12-26] MEDS: Enoxaparin Sodium 30 MG/0.3 ML SYRINGE SUBCUT (11:36)
[2022-12-26 11:42] LABS: Glucose, Whole Blood 148 mg/dL (60-115)
[2022-12-26] MEDS: 0.9 % Sodium Chloride Flush 10 ML SYRINGE 5 ML IVFLUSH ×2 (15:09→20:03)
[2022-12-26 16:00] VITALS: BP 132/61; PULSE 85; RESP 20; TEMP 36.2; O2SAT 96
[2022-12-26 16:40] LABS: Glucose, Whole Blood 180 mg/dL (60-115)
[2022-12-26 19:29] VITALS: BP 128/62; PULSE 73; RESP 18; TEMP 36.5; O2SAT 96
[2022-12-26 19:57] LABS: Glucose, Whole Blood 141 mg/dL (60-115)
[2022-12-26] MEDS: Parenteral Nutrition 1,200 ML 50 ML IV (20:03)
[2022-12-26] MEDS: LORazepam 2 MG/ML VIAL 0.5 MG IVPUSH (21:03)
[2022-12-27] MEDS: HYDROmorphone HCl 0.5 MG/0.5 ML SYRINGE IVPUSH ×3 (01:29→08:08)
[2022-12-27 01:48] VITALS: BP 145/70; PULSE 77; RESP 18; TEMP 36.6; O2SAT 93
--- NOTE | 2022-12-27 01:51 | PC.NURSE ---
Very small drainage noted from lower portion of abd incision. ABD pad applied, radha intact.
[2022-12-27 04:00] VITALS: RESP 18
[2022-12-27] MEDS: Omeprazole 40 MG CAPSULE.DR PO ×2 (06:05→17:33)
[2022-12-27 06:12] LABS: Anion Gap 12 (12-20); Blood Urea Nitrogen 44 mg/dL (9-16); Calcium 8.8 mg/dL (8.4-10.2); Carbon Dioxide 26 mmol/L (22-29); Chloride 105 mmol/L (96-108); Creatinine Clr Calc Pharmacy 44.3; Estimated Glomerular Filt Rate 43; Glucose Random 210 mg/dL (60-115); Magnesium 1.9 mg/dL (1.6-2.6); Phosphorus 3.1 mg/dL (2.7-4.5); Potassium 3.9 mmol/L (3.3-5.1); Sodium 139 mmol/L (135-145)
[2022-12-27 07:23] VITALS: BP 145/65; PULSE 92; RESP 20; TEMP 36.3; O2SAT 94
[2022-12-27 07:48] LABS: Glucose, Whole Blood 212 mg/dL (60-115)
[2022-12-27] MEDS: carvediloL 12.5 MG TABLET 25 MG PO ×2 (08:08→21:07)
[2022-12-27] MEDS: busPIRone HCl 5 MG TABLET PO ×3 (08:08→21:07)
[2022-12-27] MEDS: Dolutegravir Sodium 50 MG TABLET PO (08:08)
[2022-12-27] MEDS: Gabapentin 600 MG TABLET PO ×2 (08:08→21:07)
[2022-12-27] MEDS: lamiVUDine 150 MG TABLET 300 MG PO (08:08)
[2022-12-27] MEDS: Insulin Lispro 100 UNIT/ML 3 ML VIAL SUBCUT ×2 (08:09→12:30)
[2022-12-27] MEDS: amLODIPine Besylate 10 MG TABLET PO (08:09)
[2022-12-27] MEDS: Sertraline HCL 25 MG TABLET 75 MG PO (08:09)
[2022-12-27] MEDS: 0.9 % Sodium Chloride Flush 3 ML SYRINGE IVFLUSH ×2 (08:10→14:42)
[2022-12-27] MEDS: Buprenorphine/Naloxone 8/2 mg FILM 1 FILM SUBLINGUAL ×3 (08:11→21:07)
--- NOTE | 2022-12-27 08:12 | PM.PNGS ---
Subjective Subjective Date of Service: 12/27/22 <Sophie Zavaleta PA-C - Last Filed: 12/27/22 08:16> 12/27/22 <Jourdan Blankenship MD - Last Filed: 12/27/22 08:30> Interval history: C/o diffuse abdominal pain. Was able to eat some solid food yesterday. OOB and ambulated. <Sophie Zavaleta PA-C - Last Filed: 12/27/22 08:16> Physical Exam Vital Signs: Vital Signs: Last Vital Signs Temp 97.4 F 12/27/22 07:23 Pulse 92 12/27/22 07:23 Resp 20 12/27/22 07:23 BP 145/65 H 12/27/22 07:23 Pulse Ox 94 12/27/22 07:23 O2 Del Method Nasal Cannula 12/27/22 07:23 O2 Flow Rate 2 12/27/22 07:23 FiO2 33 12/20/22 18:30 BMI result Body Mass Index 33.4 <Sophie Zavaleta PA-C - Last Filed: 12/27/22 08:16> Const: General: comfortable, no acute distress and alert <Sophie Zavlaeta PA-C - Last Filed: 12/27/22 08:16> Orientation/consciousness: patient oriented x3 <CLAIRE Esposito Last Filed: 12/27/22 08:16> Resp: Effort & Inspection: normal respiratory effort <Sophie Zavaleta PA-C - Last Filed: 12/27/22 08:16> GI: Other: inferior aspect of incision with erythema, one staple removed and copious purulent output drained ostomy continues with flatus and stool output <Sophie Zavaleta PA-C - Last Filed: 12/27/22 08:16> Inspection: No distended <CLAIRE Esposito Last Filed: 12/27/22 08:16> Skin: General skin exam: no rashes or lesions noted <CLAIRE Esposito Last Filed: 12/27/22 08:16> Neuro: General: patient oriented x3 and moves all extremities <CLAIRE Esposito Last Filed: 12/27/22 08:16> Objective Data Active Medications Albuterol Sulfate (Albuterol Sulfate 90 Mcg 8 Gm Inhaler) 2 puff INHALE RQID PRN PRN Reason: Respiratory Distress Amlodipine Besylate (Amlodipine Besylate 10 Mg Tablet) 10 mg PO DAILY [facility]; Protocol Last Admin: 12/27/22 08:09 Dose: 10 mg Documented By: KEISHA Buprenorphine/Naloxone (Buprenorphine/Naloxone 8/2 Mg Film) 1 film SUBLINGUAL TID [facility] Last Admin: 12/27/22 08:11 Dose: 1 film Documented By: KEISHA Buspirone HCl (Buspirone Hcl 5 Mg Tablet) 5 mg PO TID [facility] Last Admin: 12/27/22 08:08 Dose: 5 mg Documented By: KEISHA Carvedilol (Carvedilol 12.5 Mg Tablet) 25 mg PO BID [facility]; Protocol Last Admin: 12/27/22 08:08 Dose: 25 mg Documented By: KEISHA Dextrose (Dextrose 50 % 25 Gm/50 Ml Syringe) 25 gm IVPUSH Q15M PRN; Protocol PRN Reason: per Hypoglycemia Standing Ord. Dextrose (Dextrose 50 % 25 Gm/50 Ml Syringe) 25 gm IVPUSH Q15M PRN; Protocol PRN Reason: per Hypoglycemia Standing Ord. Dolutegravir Sodium (Dolutegravir Sodium 50 Mg Tablet) 50 mg PO DAILY [facility] Last Admin: 12/27/22 08:08 Dose: 50 mg Documented By: KEISHA Enoxaparin Sodium (Enoxaparin Sodium 30 Mg/0.3 Ml Syringe) 30 mg SUBCUT Q24H [facility] Last Admin: 12/26/22 11:36 Dose: 30 mg Documented By: CARROL Gabapentin (Gabapentin 600 Mg Tablet) 600 mg PO BID [facility] Last Admin: 12/27/22 08:08 Dose: 600 mg Documented By: KEISHA Glucose (Glucose Gel 15 Gm Gel..Gram.) 15 gm PO Q15M PRN; Protocol PRN Reason: per Hypoglycemia Standing Ord. Hydromorphone HCl (Hydromorphone Hcl 0.5 Mg/0.5 Ml Syringe) 0.5 mg IVPUSH Q2H PRN; Protocol PRN Reason: Pain, Severe (Pain Scale 7-10) Last Admin: 12/27/22 08:08 Dose: 0.5 mg Documented By: KEISHA Nutrition (Parenteral) (Parenteral Nutrition) 1,200 mls @ 50 mls/hr IV .Q24H [facility]; Protocol Stop: 12/27/22 20:59 Last Admin: 12/26/22 20:03 Dose: 50 mls/hr Documented By: BRITTNEY Insulin Human Lispro (Insulin Lispro 100 Unit/Ml 3 Ml Vial) 0 unit SUBCUT QIDACHS [facility]; Protocol Last Admin: 12/27/22 08:09 Dose: 2 unit Documented By: KEISHA Lamivudine (Lamivudine 150 Mg Tablet) 300 mg PO DAILY [facility] Last Admin: 12/27/22 08:08 Dose: 300 mg Documented By: KEISHA Levofloxacin (Levofloxacin 500 Mg Tablet) 500 mg PO Q24H [facility] Loratadine (Loratadine 10 Mg Tablet) 10 mg PO DAILY PRN PRN Reason: Allergic Symptoms Last Admin: 12/26/22 05:28 Dose: 10 mg Documented By: SARAHI Lorazepam (Lorazepam 2 Mg/Ml Vial) 0.5 mg IVPUSH Q8H PRN PRN Reason: anxiety/restlessness Last Admin: 12/26/22 21:03 Dose: 0.5 mg Documented By: BRITTNEY Metronidazole (Metronidazole 500 Mg Tablet) 500 mg PO Q12H [facility] Omeprazole (Omeprazole 40 Mg Capsule.Dr) 40 mg PO BID@0630,1630 [facility] Last Admin: 12/27/22 06:05 Dose: 40 mg Documented By: BRITTNEY Ondansetron HCl (Ondansetron Hcl 4 Mg/2 Ml Vial) 4 mg IVPUSH Q8H PRN PRN Reason: Nausea and Vomiting Last Admin: 12/26/22 02:10 Dose: 4 mg Documented By: SARAHI Pharmacy Consult (Consult Rx Parenteral Nutrition Ordering) 1 each MISCELLANE DAILY PRN PRN Reason: Consult order Sertraline HCl (Sertraline Hcl 25 Mg Tablet) 75 mg PO DAILY [facility] Last Admin: 12/27/22 08:09 Dose: 75 mg Documented By: KEISHA Sodium Chloride (0.9 % Sodium Chloride Flush 3 Ml Syringe) 3 ml IVFLUSH QSHIFT [facility] Last Admin: 12/27/22 08:10 Dose: 3 ml Documented By: KEISHA Sodium Chloride (0.9 % Sodium Chloride Flush 10 Ml Syringe) 5 ml IVFLUSH TID [facility] Last Admin: 12/27/22 07:52 Dose: Not Given Documented By: KEISHA Non-Admin Reason: Duplicate Order Trazodone HCl (Trazodone Hcl 100 Mg Tablet) 100 mg PO BEDTIME PRN PRN Reason: Sleep Last Admin: 12/24/22 00:58 Dose: 100 mg Documented By: WAYLON <Sophie Zavaelta PA-C - Last Filed: 12/27/22 08:16> Labs CBC & Chem 7: 12/23/22 05:26 12/27/22 05:05 <Sophie Zavaleta PA-C - Last Filed: 12/27/22 08:16> Labs: Laboratory Results - last 24 hr 12/26/22 12/26/22 12/26/22 11:37 16:33 19:32 Anion Gap Estim Creat Clear Calc Estimated GFR POC Glucose 148 H 180 H 141 H Random Glucose Calcium Phosphorus Magnesium 12/27/22 12/27/22 05:05 07:43 Anion Gap 12 Estim Creat Clear Calc 44.3 Estimated GFR 43 POC Glucose 212 H Random Glucose 210 H Calcium 8.8 Phosphorus 3.1 Magnesium 1.9 <Sophie Zavaleta PA-C - Last Filed: 12/27/22 08:16> Procedures Date of Service Date of Service: 12/27/22 <Sophie Zavaleta PA-C - Last Filed: 12/27/22 08:16> 12/27/22 <Jourdan Blankenship MD - Last Filed: 12/27/22 08:30> Progress Note: A&P Assessment and plan (1) CKD (chronic kidney disease): Status: Acute <Sophie Zavaleta PA-C - Last Filed: 12/27/22 08:16> Assessment and Plan: Complained of pain on incision Large amount of purulent fluid drained Cultures taken Started on Levaquin and Flagyl p.o. - he has ampicillin allergy Stoma functioning well Diet as tolerated - p.o. intake margin Seen and examined independently <Jourdan Blankenship MD - Last Filed: 12/27/22 08:30> (2) S/P exploratory laparotomy: Status: Acute <Sophie Zavaleta PA-C - Last Filed: 12/27/22 08:16> (3) Small bowel obstruction: Status: Acute <Sophie Zavaleta PA-C - Last Filed: 12/27/22 08:16> Assessment and Plan: S/p exp lap, enterolysis, SBR.? PICC line, continue TPN until PO intake increases.?Purulent incisional drainage cultured, start PO abx. Dressing change as needed. Appreciate nephrology and hospitalist input.? Encouraged OOB, IS, PT.? <Sophie Zavaleta PA-C - Last Filed: 12/27/22 08:16> Time Spent With Patient Time: Total time managing care of this patient today ____ minutes. <Sophie Zavaleta PA-C - Last Filed: 12/27/22 08:16> Quality Stroke Does the patient have a stroke diagnosis?: No <Sophie Zavaleta PA-C - Last Filed: 12/27/22 08:16> VTE Prior VTE?: No <Sophie Zavaleta PA-C - Last Filed: 12/27/22 08:16> VTE Risk Level:: Surgical - moderate <CLAIRE Esposito Last Filed: 12/27/22 08:16> VTE Device Contraindication: N/A - Device Ordered <Sophie Zavaleta PA-C - Last Filed: 12/27/22 08:16> VTE Drug Contraindication: N/A - Med Ordered <Sophie Zavaleta PA-C - Last Filed: 12/27/22 08:16>
[2022-12-27] MEDS: levoFLOXacin 500 MG TABLET PO (08:22)
[2022-12-27] MEDS: metroNIDAZOLE 500 MG TABLET PO (08:22)
--- NOTE | 2022-12-27 09:55 | PM.PNNEP ---
Subjective Subjective Date of Service: 12/28/22 Interval history: Events noted Physical Exam Vital Signs: Vital Signs: Last Vital Signs Temp 97.4 F 12/27/22 07:23 Pulse 92 12/27/22 07:23 Resp 20 12/27/22 07:23 BP 145/65 H 12/27/22 07:23 Pulse Ox 94 12/27/22 07:23 O2 Del Method Nasal Cannula 12/27/22 07:23 O2 Flow Rate 2 12/27/22 07:23 FiO2 33 12/20/22 18:30 BMI result Body Mass Index 33.4 Neck: Neck: Yes supple Resp: Effort & Inspection: normal respiratory effort Cardio: Jugular venous distension: no JVD Palpation: no palpable S3 Heart sounds: no murmurs and no rubs GI: Inspection: Yes other (ostomy bag in place) Palpation (GI): Soft to palpation Auscultation: normal bowel sounds Neuro: Motor exam (neuro): No Asterixis during motor activity present Objective Data Labs 12/23/22 05:26 12/27/22 05:05 Labs: Laboratory Results - last 24 hr 12/26/22 12/26/22 12/26/22 11:37 16:33 19:32 Sodium Potassium Chloride Carbon Dioxide Anion Gap BUN Creatinine Estim Creat Clear Calc Estimated GFR POC Glucose 148 H 180 H 141 H Random Glucose Calcium Phosphorus Magnesium 12/27/22 12/27/22 05:05 07:43 Sodium 139 Potassium 3.9 Chloride 105 Carbon Dioxide 26 Anion Gap 12 BUN 44 H Creatinine 1.59 H Estim Creat Clear Calc 44.3 Estimated GFR 43 POC Glucose 212 H Random Glucose 210 H Calcium 8.8 Phosphorus 3.1 Magnesium 1.9 Procedures Date of Service Date of Service: 12/28/22 Assessment & Plan Assessment and plan (1) Acute kidney injury superimposed on CKD: Status: Acute Plan MARY JO superimposed on CKD MARY JO due to tubular injury Need to watch for obstructive uropathy Keep I > O Avoid hypotension and nephrotoxins Watch Urine output Time Spent With Patient Time: Total time managing care of this patient today ____ minutes. Progress Note: Quality Stroke Does the patient have a stroke diagnosis?: No
--- NOTE | 2022-12-27 10:02 | MHC.CLN ---
Addendum entered by Salma Anderson, GERI 12/27/22 11:22: [id number]. OK TO ADD LIPIDS. RECOMMEND MAX GOAL RATE D15AA5@65 ML PER HOUR, 69 G LIPIDS. PROVIDES 1798 TOTAL KCALS (25 KCALS/KG CMW), 234 G DEXTROSE, 78 G PROTEIN (1.09 G/KG CMW), 69 G LIPIDS. Original Note: F/U DIET=DIABETIC 2200 KCAL. PATIENT WITH ABDOMINAL PAIN. INTAKE SHOWS ABOUT 75%. PICC PLACED AND RECEIVING TPN. RECOMMEND D15AA5 AT 65 ML PER HOUR TO PROVIDE 1108 KCALS, 78 G PROTEIN, 234 G DEXTROSE; NO LIPIDS. REVIEWED LABS, DISCUSSED WITH PHARMACY. AWAITING TRIGLYCERIDES LABS. REVIEW TRIGLYCERIDES AND IF APPROPRIATE ADD LIPIDS. MAX GOAL RATE D15AA5@65 ML PER HOUR, 69 G LIPIDS. PROVIDES 1798 TOTAL KCALS (25 KCALS/KG CMW), 234 G DEXTROSE, 78 G PROTEIN (1.09 G/KG CMW), 69 G LIPIDS. REPLETE LYTES NEEDED. MONITOR PO INTAKE CLOSELY. FOLLOWING WITH TEAM.
[2022-12-27 10:50] LABS: Triglycerides 177 mg/dL (<150)
[2022-12-27] MEDS: Enoxaparin Sodium 30 MG/0.3 ML SYRINGE SUBCUT (11:07)
[2022-12-27] MEDS: ondansetron HCL 4 MG/2 ML VIAL IVPUSH (11:36)
[2022-12-27 12:24] LABS: Glucose, Whole Blood 206 mg/dL (60-115)
[2022-12-27] MEDS: LORazepam 2 MG/ML VIAL 0.5 MG IVPUSH (14:41)
[2022-12-27] MEDS: metroNIDAZOLE/NS 500 MG/100 ML PIGGYBACK 100 MG IV ×2 (14:42→21:09)
[2022-12-27 15:26] VITALS: BP 149/70; PULSE 81; RESP 18; TEMP 36.1; O2SAT 94
[2022-12-27 15:39] VITALS: O2SAT 96
[2022-12-27 16:37] LABS: Glucose, Whole Blood 186 mg/dL (60-115)
[2022-12-27 19:28] VITALS: BP 161/74; PULSE 81; RESP 18; TEMP 36; O2SAT 95
[2022-12-27 19:32] LABS: Glucose, Whole Blood 188 mg/dL (60-115)
[2022-12-27] MEDS: Parenteral Nutrition 1,560 ML 65 ML IV (21:08)
[2022-12-27] MEDS: 0.9 % Sodium Chloride Flush 10 ML SYRINGE 5 ML IVFLUSH (21:08)
[2022-12-28] MEDS: HYDROmorphone HCl 0.5 MG/0.5 ML SYRINGE IVPUSH ×3 (00:13→19:22)
--- NOTE | 2022-12-28 00:38 | PC.NURSE ---
abd CT urgent was ordered at noon yesterday, taken at 1500 the same day but no report at this time.This RN called ER CT to find out what happened, emergency vehicle technician placed stat reading just now, awaiting results.
--- NOTE | 2022-12-28 00:45 | PC.NURSE ---
Moderate amt of purulent drainage noted on lower portion of abd incision/dsg.Placed new gauze followed by ABD pad.
[2022-12-28] MEDS: Acetaminophen 1,000 MG/100 ML PIGGYBACK 400 MG IV ×2 (03:27→10:17)
[2022-12-28 04:00] VITALS: BP 154/70; PULSE 79; RESP 18; TEMP 36.4; O2SAT 95
[2022-12-28 06:02] LABS: Albumin Level 2.2 g/dL (3.5-5.0); Anion Gap 13 (12-20); Blood Urea Nitrogen 43 mg/dL (9-16); Calcium 8.8 mg/dL (8.4-10.2); Carbon Dioxide 24 mmol/L (22-29); Chloride 105 mmol/L (96-108); Creatinine Clr Calc Pharmacy 45.8; Estimated Glomerular Filt Rate 45; Glucose Random 245 mg/dL (60-115); Magnesium 1.8 mg/dL (1.6-2.6); Sodium 138 mmol/L (135-145)
[2022-12-28] MEDS: metroNIDAZOLE/NS 500 MG/100 ML PIGGYBACK 100 MG IV ×3 (06:12→20:27)
[2022-12-28] MEDS: Omeprazole 40 MG CAPSULE.DR PO ×2 (06:12→17:32)
[2022-12-28 07:21] LABS: Glucose, Whole Blood 231 mg/dL (60-115)
[2022-12-28 07:22] VITALS: BP 140/68; PULSE 82; RESP 17; TEMP 36.4; O2SAT 97
[2022-12-28] MEDS: lamiVUDine 150 MG TABLET 300 MG PO (07:45)
[2022-12-28] MEDS: Sertraline HCL 25 MG TABLET 75 MG PO (07:45)
[2022-12-28] MEDS: carvediloL 12.5 MG TABLET 25 MG PO ×2 (07:45→20:24)
[2022-12-28] MEDS: Gabapentin 600 MG TABLET PO ×2 (07:45→20:24)
[2022-12-28 07:46] VITALS: RESP 19
[2022-12-28] MEDS: busPIRone HCl 5 MG TABLET PO ×3 (07:46→20:24)
[2022-12-28] MEDS: Insulin Lispro 100 UNIT/ML 3 ML VIAL SUBCUT ×3 (07:46→20:27)
[2022-12-28] MEDS: Dolutegravir Sodium 50 MG TABLET PO (07:46)
[2022-12-28] MEDS: amLODIPine Besylate 10 MG TABLET PO (07:46)
--- NOTE | 2022-12-28 08:06 | P.PNGS_ITS ---
Subjective Subjective Date of Service: 12/28/22 Interval history: Reports less abdominal pain this morning, not very hungry, just taking water. Physical Exam Vital Signs: Vital Signs: Last Vital Signs Temp 97.5 F 12/28/22 07:22 Pulse 82 12/28/22 07:22 Resp 19 12/28/22 07:46 BP 140/68 H 12/28/22 07:22 Pulse Ox 97 12/28/22 07:22 O2 Del Method Nasal Cannula 12/28/22 07:22 O2 Flow Rate 1 12/28/22 07:22 FiO2 33 12/20/22 18:30 BMI result Body Mass Index 33.4 Const: General: no acute distress Nutritional Appearance: obese Orientation/consciousness: patient oriented x3 Resp: Effort & Inspection: normal respiratory effort, no audible wheezes, no cough and no respiratory distress GI: Other: soft, nondistended, dressings recently changed, clean and dry. Ostomy patent and producing gas and stool. Skin: General skin exam: no rashes or lesions noted Neuro: General: patient oriented x3 Objective Data Active Medications Albuterol Sulfate (Albuterol Sulfate 90 Mcg 8 Gm Inhaler) 2 puff INHALE RQID PRN PRN Reason: Respiratory Distress Amlodipine Besylate (Amlodipine Besylate 10 Mg Tablet) 10 mg PO DAILY [facility]; Protocol Last Admin: 12/28/22 07:46 Dose: 10 mg Documented By: JEANINE Buprenorphine/Naloxone (Buprenorphine/Naloxone 8/2 Mg Film) 1 film SUBLINGUAL TID [facility] Last Admin: 12/27/22 21:07 Dose: 1 film Documented By: LYSDayanara Buspirone HCl (Buspirone Hcl 5 Mg Tablet) 5 mg PO TID [facility] Last Admin: 12/28/22 07:46 Dose: 5 mg Documented By: BRENDANEMA Carvedilol (Carvedilol 12.5 Mg Tablet) 25 mg PO BID [facility]; Protocol Last Admin: 12/28/22 07:45 Dose: 25 mg Documented By: COTEMA Dextrose (Dextrose 50 % 25 Gm/50 Ml Syringe) 25 gm IVPUSH Q15M PRN; Protocol PRN Reason: per Hypoglycemia Standing Ord. Dextrose (Dextrose 50 % 25 Gm/50 Ml Syringe) 25 gm IVPUSH Q15M PRN; Protocol PRN Reason: per Hypoglycemia Standing Ord. Dolutegravir Sodium (Dolutegravir Sodium 50 Mg Tablet) 50 mg PO DAILY [facility] Last Admin: 12/28/22 07:46 Dose: 50 mg Documented By: JEANINE Enoxaparin Sodium (Enoxaparin Sodium 30 Mg/0.3 Ml Syringe) 30 mg SUBCUT Q24H [facility] Last Admin: 12/27/22 11:07 Dose: 30 mg Documented By: MCGINNM Gabapentin (Gabapentin 600 Mg Tablet) 600 mg PO BID [facility] Last Admin: 12/28/22 07:45 Dose: 600 mg Documented By: JEANINE Glucose (Glucose Gel 15 Gm Gel..Gram.) 15 gm PO Q15M PRN; Protocol PRN Reason: per Hypoglycemia Standing Ord. Hydromorphone HCl (Hydromorphone Hcl 0.5 Mg/0.5 Ml Syringe) 0.5 mg IVPUSH Q2H PRN; Protocol PRN Reason: Pain, Severe (Pain Scale 7-10) Last Admin: 12/28/22 07:46 Dose: 0.5 mg Documented By: JEANINE Nutrition (Parenteral) (Parenteral Nutrition) 1,560 mls @ 65 mls/hr IV .Q24H [facility]; Protocol Stop: 12/28/22 20:59 Last Admin: 12/27/22 21:08 Dose: 65 mls/hr Documented By: BRITTNEY Acetaminophen (Ofirmev) 1,000 mg in 100 mls @ 400 mls/hr IV Q6H PRN PRN Reason: abdominal pain Last Infusion: 12/28/22 03:42 Dose: 0 mls/hr Documented By: BRITTNEY Metronidazole (Flagyl) 500 mg in 100 mls @ 100 mls/hr IV Q8H [facility] Last Infusion: 12/28/22 07:37 Dose: 0 mls/hr Documented By: JEANINE Levofloxacin (Levaquin) 250 mg in 50 mls @ 50 mls/hr IV Q24H [facility] Insulin Human Lispro (Insulin Lispro 100 Unit/Ml 3 Ml Vial) 0 unit SUBCUT QIDA [facility]; Protocol Last Admin: 12/28/22 07:46 Dose: 2 unit Documented By: JEANINE Lamivudine (Lamivudine 150 Mg Tablet) 300 mg PO DAILY [facility] Last Admin: 12/28/22 07:45 Dose: 300 mg Documented By: JEANINE Loratadine (Loratadine 10 Mg Tablet) 10 mg PO DAILY PRN PRN Reason: Allergic Symptoms Last Admin: 12/26/22 05:28 Dose: 10 mg Documented By: SARAHI Lorazepam (Lorazepam 2 Mg/Ml Vial) 0.5 mg IVPUSH Q8H PRN PRN Reason: anxiety/restlessness Last Admin: 12/27/22 14:41 Dose: 0.5 mg Documented By: KEISHA Omeprazole (Omeprazole 40 Mg Capsule.Dr) 40 mg PO BID@0630,1630 [facility] Last Admin: 12/28/22 06:12 Dose: 40 mg Documented By: BRITTNEY Ondansetron HCl (Ondansetron Hcl 4 Mg/2 Ml Vial) 4 mg IVPUSH Q8H PRN PRN Reason: Nausea and Vomiting Last Admin: 12/27/22 11:36 Dose: 4 mg Documented By: KEISHA Oxycodone HCl (Oxycodone Hcl Immed Release 5 Mg Tablet) 5 mg PO Q4H PRN PRN Reason: Pain, Moderate(Pain Scale 4-6) Oxycodone HCl (Oxycodone Hcl Immed Release 5 Mg Tablet) 10 mg PO Q4H PRN PRN Reason: Pain, Severe (Pain Scale 7-10) Pharmacy Consult (Consult Rx Parenteral Nutrition Ordering) 1 each MISCELLANE DAILY PRN PRN Reason: Consult order Sertraline HCl (Sertraline Hcl 25 Mg Tablet) 75 mg PO DAILY [facility] Last Admin: 12/28/22 07:45 Dose: 75 mg Documented By: JEANINE Sodium Chloride (0.9 % Sodium Chloride Flush 3 Ml Syringe) 3 ml IVFLUSH QSHIFT [facility] Last Admin: 12/28/22 07:29 Dose: Not Given Documented By: JEANINE Non-Admin Reason: IV Running Sodium Chloride (0.9 % Sodium Chloride Flush 10 Ml Syringe) 5 ml IVFLUSH TID [facility] Last Admin: 12/28/22 07:29 Dose: Not Given Documented By: JEANINE Non-Admin Reason: IV Running Trazodone HCl (Trazodone Hcl 100 Mg Tablet) 100 mg PO BEDTIME PRN PRN Reason: Sleep Last Admin: 12/24/22 00:58 Dose: 100 mg Documented By: WAYLON Labs 12/23/22 05:26 12/28/22 05:00 Labs: Laboratory Results - last 24 hr 12/27/22 12/27/22 12/27/22 10:33 12:20 16:22 Anion Gap Estim Creat Clear Calc Estimated GFR POC Glucose 206 H 186 H Random Glucose Calcium Phosphorus Magnesium Albumin Triglycerides 177 H 12/27/22 12/28/22 12/28/22 19:27 05:00 07:18 Anion Gap 13 Estim Creat Clear Calc 45.8 Estimated GFR 45 POC Glucose 188 H 231 H Random Glucose 245 H Calcium 8.8 Phosphorus 3.0 Magnesium 1.8 Albumin 2.2 L Triglycerides Microbiology Microbiology Results: Microbiology 12/27/22 07:55 Gram Stain - Final Incision Procedures Date of Service Date of Service: 12/28/22 Progress Note: A&P Assessment and plan (1) S/P exploratory laparotomy: Status: Acute (2) Small bowel obstruction: Status: Acute Plan s/p exploratory laparotomy, enterolysis and SBR for SBO, with return of bowel function, but still decreased po intake. Patient currently on TPN; will need to continue. Incision opened yesterday, cultures pending, continue current antibiotics. Encouraged OOB and ambulation. Time Spent With Patient Time: Total time managing care of this patient today ____ minutes. Quality Stroke Does the patient have a stroke diagnosis?: No VTE Prior VTE?: No VTE Risk Level:: Surgical - moderate VTE Device Contraindication: N/A - Device Ordered VTE Drug Contraindication: N/A - Med Ordered
[2022-12-28] MEDS: Buprenorphine/Naloxone 8/2 mg FILM 1 FILM SUBLINGUAL ×3 (08:50→20:25)
--- NOTE | 2022-12-28 10:11 | P.PNNP_ITS ---
Subjective Subjective Date of Service: 12/28/22 Interval history: Events noted Physical Exam 2 Vital Signs: Vital Signs: Last Vital Signs Temp 97.5 F 12/28/22 07:22 Pulse 82 12/28/22 07:22 Resp 19 12/28/22 07:46 BP 140/68 H 12/28/22 07:22 Pulse Ox 97 12/28/22 07:22 O2 Del Method Nasal Cannula 12/28/22 07:22 O2 Flow Rate 1 12/28/22 07:22 FiO2 33 12/20/22 18:30 BMI result Body Mass Index 33.4 Neck: Neck: Yes supple Resp: Effort & Inspection: normal respiratory effort Cardio: Jugular venous distension: no JVD Palpation: no palpable S3 H eart sounds: no murmurs and no rubs GI: Inspection: Yes other (ostomy bag in place) Palpation (GI): Soft to palpation Auscultation: normal bowel sounds Neuro: Motor exam (neuro): No Asterixis during motor activity present Objective Data Labs 12/23/22 05:26 12/28/22 05:00 Labs: Laboratory Results - last 24 hr 12/27/22 12/27/22 12/27/22 10:33 12:20 16:22 Sodium Potassium Chloride Carbon Dioxide Anion Gap BUN Creatinine Estim Creat Clear Calc Estimated GFR POC Glucose 206 H 186 H Random Glucose Calcium Phosphorus Magnesium Albumin Triglycerides 177 H 12/27/22 12/28/22 12/28/22 19:27 05:00 07:18 Sodium 138 Potassium 4.0 Chloride 105 Carbon Dioxide 24 Anion Gap 13 BUN 43 H Creatinine 1.54 H Estim Creat Clear Calc 45.8 Estimated GFR 45 POC Glucose 188 H 231 H Random Glucose 245 H Calcium 8.8 Phosphorus 3.0 Magnesium 1.8 Albumin 2.2 L Triglycerides Microbiology Microbiology Results: Microbiology 12/27/22 07:55 Incision Gram Stain - Final 12/27/22 07:55 Incision Routine Culture - Preliminary Culture in progress. Procedures Date of Service Date of Service: 12/28/22 Assessment & Plan Assessment and plan (1) Acute kidney injury superimposed on CKD: Status: Acute Plan MARY JO superimposed on CKD MARY JO due to tubular injury Creatinine is marginally better Need to watch for obstructive uropathy; currently nonoliguric Keep I > O Avoid hypotension and nephrotoxins Watch Urine output Time Spent With Patient Time: Total time managing care of this patient today ____ minutes. Progress Note: Quality Stroke Does the patient have a stroke diagnosis?: No
[2022-12-28] MEDS: Enoxaparin Sodium 30 MG/0.3 ML SYRINGE SUBCUT (10:17)
[2022-12-28] MEDS: levoFLOXacin/D5W 250 MG/50 ML PIGGYBACK 50 MG IV (11:04)
--- NOTE | 2022-12-28 11:07 | MHC.CLN ---
F/U DIET=DIABETIC 2200 KCAL. INTAKE IS VARIABLE REVIEWED LABS, DISCUSSED WITH PHARMACY PT RECEIVING MAX GOAL RATE D15AA5@65 ML PER HOUR, 69 G LIPIDS. PROVIDES 1798 TOTAL KCALS (25 KCALS/KG CMW), 234 G DEXTROSE, 78 G PROTEIN (1.09 G/KG CMW), 69 G LIPIDS CONTINUE SAME RATE TODAY REPLETE LYTES NEEDED MONITOR PO INTAKE CLOSELY
[2022-12-28 11:09] LABS: Glucose, Whole Blood 191 mg/dL (60-115)
[2022-12-28] MEDS: oxyCODONE HCl Immed Release 5 MG TABLET 10 MG PO (12:31)
[2022-12-28] MEDS: oxyCODONE HCl Immed Release 5 MG TABLET PO (14:30)
[2022-12-28 15:09] VITALS: BP 129/65; PULSE 75; RESP 18; TEMP 36.2; O2SAT 99
[2022-12-28 16:13] LABS: Glucose, Whole Blood 256 mg/dL (60-115)
[2022-12-28 18:20] LABS: Glucose, Whole Blood 235 mg/dL (60-115)
[2022-12-28 19:10] VITALS: BP 136/68; PULSE 79; RESP 20; TEMP 36.4; O2SAT 97
[2022-12-28 19:42] LABS: Glucose, Whole Blood 219 mg/dL (60-115)
[2022-12-28] MEDS: traZODone HCL 100 MG TABLET PO (20:24)
[2022-12-28] MEDS: 0.9 % Sodium Chloride Flush 10 ML SYRINGE 5 ML IVFLUSH (20:29)
[2022-12-28] MEDS: Parenteral Nutrition 1,560 ML 65 ML IV (20:32)
[2022-12-29] MEDS: HYDROmorphone HCl 0.5 MG/0.5 ML SYRINGE IVPUSH ×4 (00:12→19:23)
[2022-12-29] MEDS: LORazepam 2 MG/ML VIAL 0.5 MG IVPUSH ×2 (00:12→12:01)
[2022-12-29 03:15] VITALS: BP 147/69; PULSE 80; RESP 18; TEMP 37.1; O2SAT 95
[2022-12-29] MEDS: Omeprazole 40 MG CAPSULE.DR PO ×2 (05:24→16:52)
[2022-12-29] MEDS: metroNIDAZOLE/NS 500 MG/100 ML PIGGYBACK 100 MG IV ×3 (05:28→21:34)
[2022-12-29 05:42] LABS: MANUAL DIFF FLAG NO
[2022-12-29 05:48] LABS: Basophils Absolute Auto 0.1 X10*3/uL (0.0-0.2); Basophils Percent Auto 0.4 % (0-2); Eosinophils Absolute Auto 0.2 X10*3/uL (0.0-0.4); Eosinophils Percent Auto 0.9 % (0-4); Hematocrit 33.7 % (42.0-52.0); Hemoglobin 10.8 g/dl (14.0-18.0); Imm Gran Abs Auto 0.46 X10*3/uL (0.00-0.03); Imm Gran Pct Auto 2.6 % (0.0-0.4); Lymphocytes Absolute Auto 1.5 X10*3/uL (1.2-4.9); Lymphocytes Percent Auto 8.6 % (20-40); Mean Corpuscular Hemoglobin 33.4 pg (27.0-33.0); Mean Corpuscular Volume 104.3 fL (80.0-98.0); Mean Platelet Volume 11.6 fL (9.4-12.4); Monocytes Absolute Auto 1.3 X10*3/uL (0.1-1.2); Monocytes Percent Auto 7.3 % (2-11); NRBC Pct Auto 0.5 /100WBC (0.0-0.2); Neutrophils Percent Auto 80.2 % (45-73); Platelet Count 324 X10*3/uL (160-400); Red Blood Count 3.23 X10*6/uL (4.60-5.80); Red Cell Distribution Width 13.9 % (11.0-16.0); White Blood Count 17.4 X10*3/uL (4.8-10.8)
[2022-12-29 06:24] LABS: Albumin Level 2.2 g/dL (3.5-5.0); Anion Gap 15 (12-20); Blood Urea Nitrogen 48 mg/dL (9-16); Calcium 9.1 mg/dL (8.4-10.2); Carbon Dioxide 19 mmol/L (22-29); Chloride 106 mmol/L (96-108); Creatinine Clr Calc Pharmacy 44.1; Estimated Glomerular Filt Rate 43; Glucose Random 235 mg/dL (60-115); Magnesium 1.9 mg/dL (1.6-2.6); Potassium 4.4 mmol/L (3.3-5.1); Sodium 136 mmol/L (135-145)
[2022-12-29 07:00] VITALS: BP 132/68; PULSE 79; RESP 18; TEMP 36.1; O2SAT 94
[2022-12-29 07:23] LABS: Glucose, Whole Blood 235 mg/dL (60-115)
--- NOTE | 2022-12-29 07:46 | P.PNGS_ITS ---
Patient feels improved today. CT abdomen and pelvis reviewed. Dilated stomach and small bowel noted. Patient continues to have stool and flatus per ostomy. Agree with clear liquids. Subjective Subjective Date of Service: 12/29/22 Interval history: Feels a little better this morning. Denies nausea. Has been OOB and ambulating. Ostomy still functioning well. Physical Exam Vital Signs: Vital Signs: Last Vital Signs Temp 97 F 12/29/22 07:00 Pulse 79 12/29/22 07:00 Resp 18 12/29/22 07:00 BP 132/68 12/29/22 07:00 Pulse Ox 94 12/29/22 07:00 O2 Del Method Nasal Cannula 12/29/22 07:00 O2 Flow Rate 1 12/29/22 07:00 FiO2 33 12/20/22 18:30 BMI result Body Mass Index 33.4 Const: General: comfortable, no acute distress and alert Orientation/consciousness: patient oriented x3 Resp: Effort & Inspection: normal respiratory effort GI: Other: incision continues with purulent output from superior and inferior aspect; no significant erythema ostomy with liquid output Palpation (GI): Soft to palpation, Tenderness to palpation present (GI) (mild incisional), no guarding and not rigid Skin: General skin exam: no rashes or lesions noted Neuro: General: patient oriented x3 and moves all extremities Objective Data Active Medications Albuterol Sulfate (Albuterol Sulfate 90 Mcg 8 Gm Inhaler) 2 puff INHALE RQID PRN PRN Reason: Respiratory Distress Amlodipine Besylate (Amlodipine Besylate 10 Mg Tablet) 10 mg PO DAILY [facility]; Protocol Last Admin: 12/28/22 07:46 Dose: 10 mg Documented By: COTEMA Buprenorphine/Naloxone (Buprenorphine/Naloxone 8/2 Mg Film) 1 film SUBLINGUAL TID [facility] Last Admin: 12/28/22 20:25 Dose: 1 film Documented By: MISHEL Buspirone HCl (Buspirone Hcl 5 Mg Tablet) 5 mg PO TID [facility] Last Admin: 12/28/22 20:24 Dose: 5 mg Documented By: MISHEL Carvedilol (Carvedilol 12.5 Mg Tablet) 25 mg PO BID [facility]; Protocol Last Admin: 12/28/22 20:24 Dose: 25 mg Documented By: MISHEL Dextrose (Dextrose 50 % 25 Gm/50 Ml Syringe) 25 gm IVPUSH Q15M PRN; Protocol PRN Reason: per Hypoglycemia Standing Ord. Dextrose (Dextrose 50 % 25 Gm/50 Ml Syringe) 25 gm IVPUSH Q15M PRN; Protocol PRN Reason: per Hypoglycemia Standing Ord. Dolutegravir Sodium (Dolutegravir Sodium 50 Mg Tablet) 50 mg PO DAILY [facility] Last Admin: 12/28/22 07:46 Dose: 50 mg Documented By: COTEMA Enoxaparin Sodium (Enoxaparin Sodium 30 Mg/0.3 Ml Syringe) 30 mg SUBCUT Q24H [facility] Last Admin: 12/28/22 10:17 Dose: 30 mg Documented By: JEANINE Gabapentin (Gabapentin 600 Mg Tablet) 600 mg PO BID [facility] Last Admin: 12/28/22 20:24 Dose: 600 mg Documented By: MISHEL Glucose (Glucose Gel 15 Gm Gel..Gram.) 15 gm PO Q15M PRN; Protocol PRN Reason: per Hypoglycemia Standing Ord. Hydromorphone HCl (Hydromorphone Hcl 0.5 Mg/0.5 Ml Syringe) 0.5 mg IVPUSH Q2H PRN; Protocol PRN Reason: Pain, Severe (Pain Scale 7-10) Last Admin: 12/29/22 05:24 Dose: 0.5 mg Documented By: MISHEL Acetaminophen (Ofirmev) 1,000 mg in 100 mls @ 400 mls/hr IV Q6H PRN PRN Reason: abdominal pain Last Infusion: 12/28/22 10:38 Dose: 0 mls/hr Documented By: JEANINE Metronidazole (Flagyl) 500 mg in 100 mls @ 100 mls/hr IV Q8H [facility] Last Infusion: 12/29/22 06:28 Dose: 0 mls/hr Documented By: MISHEL Levofloxacin (Levaquin) 250 mg in 50 mls @ 50 mls/hr IV Q24H [facility] Last Infusion: 12/28/22 12:20 Dose: 0 mls/hr Documented By: COTPHILIP Nutrition (Parenteral) (Parenteral Nutrition) 1,560 mls @ 65 mls/hr IV .Q24H [facility]; Protocol Stop: 12/29/22 20:59 Last Admin: 12/28/22 20:32 Dose: 65 mls/hr Documented By: MISHEL Insulin Human Lispro (Insulin Lispro 100 Unit/Ml 3 Ml Vial) 0 unit SUBCUT QIDACHS [facility]; Protocol Last Admin: 12/28/22 20:27 Dose: 2 unit Documented By: MISHEL Lamivudine (Lamivudine 150 Mg Tablet) 300 mg PO DAILY [facility] Last Admin: 12/28/22 07:45 Dose: 300 mg Documented By: JEANINE Loratadine (Loratadine 10 Mg Tablet) 10 mg PO DAILY PRN PRN Reason: Allergic Symptoms Last Admin: 12/26/22 05:28 Dose: 10 mg Documented By: SARAHI Lorazepam (Lorazepam 2 Mg/Ml Vial) 0.5 mg IVPUSH Q8H PRN PRN Reason: anxiety/restlessness Last Admin: 12/29/22 00:12 Dose: 0.5 mg Documented By: MISHEL Omeprazole (Omeprazole 40 Mg Capsule.Dr) 40 mg PO BID@0630,1630 [facility] Last Admin: 12/29/22 05:24 Dose: 40 mg Documented By: MISHEL Ondansetron HCl (Ondansetron Hcl 4 Mg/2 Ml Vial) 4 mg IVPUSH Q8H PRN PRN Reason: Nausea and Vomiting Last Admin: 12/27/22 11:36 Dose: 4 mg Documented By: KEISHA Oxycodone HCl (Oxycodone Hcl Immed Release 5 Mg Tablet) 5 mg PO Q4H PRN PRN Reason: Pain, Moderate(Pain Scale 4-6) Last Admin: 12/28/22 14:30 Dose: 5 mg Documented By: JEANINE Oxycodone HCl (Oxycodone Hcl Immed Release 5 Mg Tablet) 10 mg PO Q4H PRN PRN Reason: Pain, Severe (Pain Scale 7-10) Last Admin: 12/28/22 12:31 Dose: 10 mg Documented By: JEANINE Pharmacy Consult (Consult Rx Parenteral Nutrition Ordering) 1 each MISCELLANE DAILY PRN PRN Reason: Consult order Sertraline HCl (Sertraline Hcl 25 Mg Tablet) 75 mg PO DAILY [facility] Last Admin: 12/28/22 07:45 Dose: 75 mg Documented By: JEANINE Sodium Chloride (0.9 % Sodium Chloride Flush 3 Ml Syringe) 3 ml IVFLUSH QSHIFT [facility] Last Admin: 12/29/22 07:38 Dose: Not Given Documented By: BRENDANEMA Non-Admin Reason: IV Running Sodium Chloride (0.9 % Sodium Chloride Flush 10 Ml Syringe) 5 ml IVFLUSH TID [facility] Last Admin: 12/29/22 07:38 Dose: Not Given Documented By: BRENDANEMA Non-Admin Reason: IV Running Trazodone HCl (Trazodone Hcl 100 Mg Tablet) 100 mg PO BEDTIME PRN PRN Reason: Sleep Last Admin: 12/28/22 20:24 Dose: 100 mg Documented By: MISHEL Labs 12/29/22 05:01 12/29/22 05:01 Labs: Laboratory Results - last 24 hr 12/28/22 12/28/22 12/28/22 11:00 15:52 18:15 MCV MCH MCHC RDW Plt Count MPV Immature Gran % (Auto) Neut % (Auto) Lymph % (Auto) [place] % (Auto) Eos % (Auto) Baso % (Auto) Lymph # (Auto) [place] # (Auto) Eos # (Auto) Baso # (Auto) Abs Immat Gran (auto) Absolute Neuts (auto) Absolute Nucleated RBC Nucleated RBC % (auto) Anion Gap Estim Creat Clear Calc Estimated GFR POC Glucose 191 H 256 H 235 H Random Glucose Calcium Phosphorus Magnesium Albumin 12/28/22 12/29/22 12/29/22 19:29 05:01 05:01 MCV 104.3 H MCH 33.4 H MCHC 32.0 RDW 13.9 Plt Count 324 D MPV 11.6 Immature Gran % (Auto) 2.6 H Neut % (Auto) 80.2 H Lymph % (Auto) 8.6 L [place] % (Auto) 7.3 Eos % (Auto) 0.9 Baso % (Auto) 0.4 Lymph # (Auto) 1.5 [place] # (Auto) 1.3 H Eos # (Auto) 0.2 Baso # (Auto) 0.1 Abs Immat Gran (auto) 0.46 H Absolute Neuts (auto) 14.0 H Absolute Nucleated RBC 0.080 H Nucleated RBC % (auto) 0.5 H Anion Gap 15 Estim Creat Clear Calc 44.1 Estimated GFR 43 POC Glucose 219 H Random Glucose 235 H Calcium 9.1 Phosphorus 3.0 Magnesium 1.9 Albumin 2.2 L 12/29/22 06:59 MCV MCH MCHC RDW Plt Count MPV Immature Gran % (Auto) Neut % (Auto) Lymph % (Auto) [place] % (Auto) Eos % (Auto) Baso % (Auto) Lymph # (Auto) [place] # (Auto) Eos # (Auto) Baso # (Auto) Abs Immat Gran (auto) Absolute Neuts (auto) Absolute Nucleated RBC Nucleated RBC % (auto) Anion Gap Estim Creat Clear Calc Estimated GFR POC Glucose 235 H Random Glucose Calcium Phosphorus Magnesium Albumin Microbiology Microbiology Results: Microbiology 12/27/22 07:55 Gram Stain - Final Incision Routine Culture - Preliminary Culture in progress. Procedures Date of Service Date of Service: 12/29/22 Progress Note: A&P Assessment and plan (1) S/P exploratory laparotomy: Status: Acute (2) Small bowel obstruction: Status: Acute Plan S/p exploratory laparotomy, enterolysis and SBR for SBO, with return of bowel function, was made NPO for vomiting. Improved, will advance to clear liquids. Patient currently on TPN; will need to continue. Incision continues with puru lent wound drainage, culture pending, continue current antibiotics. Encouraged OOB and ambulation. Dressing change to incision as needed. Time Spent With Patient Time: Total time managing care of this patient today ____ minutes. Quality Stroke Does the patient have a stroke diagnosis?: No VTE Prior VTE?: No VTE Risk Level:: Surgical - moderate VTE Device Contraindication: N/A - Device Ordered VTE Drug Contraindication: N/A - Med Ordered
[2022-12-29] MEDS: amLODIPine Besylate 10 MG TABLET PO (07:54)
[2022-12-29] MEDS: Sertraline HCL 25 MG TABLET 75 MG PO (07:54)
[2022-12-29] MEDS: Acetaminophen 1,000 MG/100 ML PIGGYBACK 400 MG IV ×2 (07:54→16:52)
[2022-12-29] MEDS: busPIRone HCl 5 MG TABLET PO ×3 (07:54→20:35)
[2022-12-29] MEDS: lamiVUDine 150 MG TABLET 300 MG PO (07:55)
[2022-12-29] MEDS: oxyCODONE HCl Immed Release 5 MG TABLET 10 MG PO ×2 (07:55→14:56)
[2022-12-29] MEDS: carvediloL 12.5 MG TABLET 25 MG PO ×2 (07:55→20:35)
[2022-12-29] MEDS: Gabapentin 600 MG TABLET PO ×2 (07:55→20:35)
[2022-12-29] MEDS: Insulin Lispro 100 UNIT/ML 3 ML VIAL SUBCUT ×4 (07:55→20:34)
[2022-12-29] MEDS: Dolutegravir Sodium 50 MG TABLET PO (07:55)
[2022-12-29] MEDS: Buprenorphine/Naloxone 8/2 mg FILM 1 FILM SUBLINGUAL ×3 (08:48→20:35)
--- NOTE | 2022-12-29 10:07 | MHC.CLN ---
F/U DIET DOWNGRADED TO CLEAR LIQUIDS. OSTOMY FUNCTIONING. REVIEWED LABS, COMMUNICATED WITH PHARMACY. PT RECEIVING MAX GOAL RATE [id number]@65 ML PER HOUR, 69 G LIPIDS. PROVIDES 1798 TOTAL KCALS (25 KCALS/KG CMW), 234 G DEXTROSE, 78 G PROTEIN (1.09 G/KG CMW), 69 G LIPIDS. CONTINUE SAME RATE TODAY. REPLETE LYTES NEEDED. MONITOR PO INTAKE CLOSELY.
[2022-12-29] MEDS: levoFLOXacin/D5W 250 MG/50 ML PIGGYBACK 50 MG IV (10:44)
[2022-12-29] MEDS: Enoxaparin Sodium 30 MG/0.3 ML SYRINGE SUBCUT (10:45)
[2022-12-29 11:16] LABS: Glucose, Whole Blood 225 mg/dL (60-115)
[2022-12-29 11:40] VITALS: BP 132/68; PULSE 79; O2SAT 94
[2022-12-29 12:02] VITALS: RESP 19
--- NOTE | 2022-12-29 14:57 | MHC.CM.PN ---
PT recommends STR. Patient is not ready to discharge today.Met with patient to obtain preferences for STR. Referrals have been sent. DP STR via BLS.
[2022-12-29 15:16] VITALS: BP 150/75; PULSE 77; RESP 17; TEMP 36.3; O2SAT 96
[2022-12-29 16:27] LABS: Glucose, Whole Blood 230 mg/dL (60-115)
--- NOTE | 2022-12-29 17:24 | P.PNNP_ITS ---
Subjective Subjective Date of Service: 12/29/22 Interval history: Pt seen Stable overnight Physical Exam Vital Signs: Vital Signs: Last Vital Signs Temp 97.3 F 12/29/22 15:16 Pulse 77 12/29/22 15:16 Resp 17 12/29/22 15:16 BP 150/75 H 12/29/22 15:16 Pulse Ox 96 12/29/22 15:16 O2 Del Method Nasal Cannula 12/29/22 15:16 O2 Flow Rate 1 12/29/22 15:16 FiO2 33 12/20/22 18:30 BMI result Body Mass Index 33.4 Const: Other: General awake alert x3,in no acute distress. NG with bilious drainage Neck is supple no JVD. CVS regular rate rhythm, Respiratory lungs clear to auscultation, no respiratory distress, no rhonchi. Gastrointestinal abdomen soft, mid abdominal tenderness to palpation, bowel sounds audible, no guarding , no rigidity, colostomy bag with light brown liquid. Extremities no edema. Neuro nonfocal ,speech clear. Skin no rash appropriate affect General: cooperative, comfortable, no acute distress, well developed and alert Nutritional Appearance: well nourished and obese Orientation/consciousness: patient oriented x3 Limitations: no limitations and No language barrier HEENT: Other: NGT in place, scant bilious output Eyes: Sclerae: sclerae normal EOM: EOMs intact bilaterally Neck: Neck: Yes normal visual inspection and Yes supple Resp: Effort & Inspection: normal respiratory effort, no audible wheezes, no cough, no respiratory distress and no stridor Cardio: Jugular venous distension: no JVD Palpation: no palpable S3 Heart sounds: no murmurs and no rubs GI: Other: incision continues with purulent output from superior and inferior aspect; no significant erythema ostomy with liquid output Inspection: Yes normal to inspection, No distended, Yes incision (clean) and Yes other (ostomy bag in place) Palpation (GI): Soft to palpation, Tenderness to palpation present (GI) (mild incisional) in the LLQ and in the RLQ, no guarding, not rigid and No Rebound tenderness present Percussion: Yes normal to percussion and Yes tympanic to percussion Auscultation: normal bowel sounds Rectal Exam - Male: Yes deferred Skin: General skin exam: no rashes or lesions noted and dry skin Rashes: no rashes Neuro: General: patient oriented x3, moves all extremities and no focal motor deficits Motor exam (neuro): No Asterixis during motor activity present Extrem: General: Yes normal to inspection, Yes full ROM and Yes no clubbing, cyanosis or edema Psych: Appearance: grossly normal Objective Data Labs 12/29/22 05:01 12/29/22 05:01 Labs: Laboratory Results - last 24 hr 12/28/22 12/28/22 12/29/22 18:15 19:29 05:01 WBC 17.4 H RBC 3.23 L Hgb 10.8 L Hct 33.7 L MCV 104.3 H MCH 33.4 H MCHC 32.0 RDW 13.9 Plt Count 324 D MPV 11.6 Immature Gran % (Auto) 2.6 H Neut % (Auto) 80.2 H Lymph % (Auto) 8.6 L [place] % (Auto) 7.3 Eos % (Auto) 0.9 Baso % (Auto) 0.4 Lymph # (Auto) 1.5 [place] # (Auto) 1.3 H Eos # (Auto) 0.2 Baso # (Auto) 0.1 Abs Immat Gran (auto) 0.46 H Absolute Neuts (auto) 14.0 H Absolute Nucleated RBC 0.080 H Nucleated RBC % (auto) 0.5 H Sodium Potassium Chloride Carbon Dioxide Anion Gap BUN Creatinine Estim Creat Clear Calc Estimated GFR POC Glucose 235 H 219 H Random Glucose Calcium Phosphorus Magnesium Albumin 12/29/22 12/29/22 12/29/22 05:01 06:59 11:01 WBC RBC Hgb Hct MCV MCH MCHC RDW Plt Count MPV Immature Gran % (Auto) Neut % (Auto) Lymph % (Auto) [place] % (Auto) Eos % (Auto) Baso % (Auto) Lymph # (Auto) [place] # (Auto) Eos # (Auto) Baso # (Auto) Abs Immat Gran (auto) Absolute Neuts (auto) Absolute Nucleated RBC Nucleated RBC % (auto) Sodium 136 Potassium 4.4 Chloride 106 Carbon Dioxide 19 L Anion Gap 15 BUN 48 H Creatinine 1.60 H Estim Creat Clear Calc 44.1 Estimated GFR 43 POC Glucose 235 H 225 H Random Glucose 235 H Calcium 9.1 Phosphorus 3.0 Magnesium 1.9 Albumin 2.2 L 12/29/22 16:12 WBC RBC Hgb Hct MCV MCH MCHC RDW Plt Count MPV Immature Gran % (Auto) Neut % (Auto) Lymph % (Auto) [place] % (Auto) Eos % (Auto) Baso % (Auto) Lymph # (Auto) [place] # (Auto) Eos # (Auto) Baso # (Auto) Abs Immat Gran (auto) Absolute Neuts (auto) Absolute Nucleated RBC Nucleated RBC % (auto) Sodium Potassium Chloride Carbon Dioxide Anion Gap BUN Creatinine Estim Creat Clear Calc Estimated GFR POC Glucose 230 H Random Glucose Calcium Phosphorus Magnesium Albumin Microbiology Microbiology Results: Microbiology 12/27/22 07:55 Incision Gram Stain - Final 12/27/22 07:55 Incision Routine Culture - Preliminary Gram negative tesha Pseudomonas species Viridans streptococcus group Procedures Date of Service Date of Service: 12/29/22 Assessment & Plan Assessment and plan (1) Acute kidney injury superimposed on CKD: Status: Acute Assessment and Plan: MARY JO likely ATN, nonoliguric in setting of lap and wound infection (2) CKD (chronic kidney disease): Status: Acute (3) S/P exploratory laparotomy: Status: Acute (4) Small bowel obstruction: Status: Acute Plan Monitor UO Avoid contrast and NSAIDS Time Spent With Patient Time: Total time managing care of this patient today ____ minutes. Progress Note: Quality Stroke Does the patient have a stroke diagnosis?: No
[2022-12-29 19:22] VITALS: BP 146/80; PULSE 74; RESP 16; TEMP 36.7; O2SAT 97
[2022-12-29 20:11] LABS: Glucose, Whole Blood 228 mg/dL (60-115)
[2022-12-29] MEDS: Parenteral Nutrition 1,560 ML 65 ML IV (20:29)
[2022-12-29] MEDS: 0.9 % Sodium Chloride Flush 10 ML SYRINGE 5 ML IVFLUSH (20:39)
[2022-12-29] MEDS: 0.9 % Sodium Chloride Flush 3 ML SYRINGE IVFLUSH (21:34)
[2022-12-30 01:56] VITALS: BP 141/72; PULSE 73; RESP 16; TEMP 36.1; O2SAT 95
[2022-12-30] MEDS: HYDROmorphone HCl 0.5 MG/0.5 ML SYRINGE IVPUSH ×3 (03:06→15:13)
[2022-12-30] MEDS: LORazepam 2 MG/ML VIAL 0.5 MG IVPUSH (03:06)
[2022-12-30] MEDS: metroNIDAZOLE/NS 500 MG/100 ML PIGGYBACK 100 MG IV ×3 (05:24→21:25)
[2022-12-30] MEDS: Omeprazole 40 MG CAPSULE.DR PO ×2 (05:24→16:42)
[2022-12-30 06:33] LABS: Albumin Level 2.2 g/dL (3.5-5.0); Anion Gap 14 (12-20); Blood Urea Nitrogen 47 mg/dL (9-16); Calcium 9.2 mg/dL (8.4-10.2); Carbon Dioxide 21 mmol/L (22-29); Chloride 105 mmol/L (96-108); Creatinine Clr Calc Pharmacy 39.8; Estimated Glomerular Filt Rate 38; Glucose Random 275 mg/dL (60-115); Magnesium 1.8 mg/dL (1.6-2.6); Phosphorus 3.5 mg/dL (2.7-4.5); Potassium 5.4 mmol/L (3.3-5.1); Sodium 135 mmol/L (135-145)
[2022-12-30 07:32] LABS: Glucose, Whole Blood 275 mg/dL (60-115)
[2022-12-30 07:49] VITALS: BP 150/70; PULSE 73; RESP 18; TEMP 36.2; O2SAT 95
[2022-12-30] MEDS: 0.9 % Sodium Chloride Flush 10 ML SYRINGE 5 ML IVFLUSH ×3 (07:49→20:33)
[2022-12-30] MEDS: Insulin Lispro 100 UNIT/ML 3 ML VIAL SUBCUT ×4 (07:49→21:00)
[2022-12-30] MEDS: 0.9 % Sodium Chloride Flush 3 ML SYRINGE IVFLUSH ×3 (07:49→20:33)
[2022-12-30] MEDS: Sertraline HCL 25 MG TABLET 75 MG PO (07:53)
[2022-12-30] MEDS: carvediloL 12.5 MG TABLET 25 MG PO ×2 (07:53→20:33)
[2022-12-30] MEDS: Gabapentin 600 MG TABLET PO ×2 (07:53→20:33)
[2022-12-30] MEDS: amLODIPine Besylate 10 MG TABLET PO (07:53)
[2022-12-30] MEDS: busPIRone HCl 5 MG TABLET PO ×3 (07:53→20:33)
[2022-12-30] MEDS: lamiVUDine 150 MG TABLET 300 MG PO (07:53)
[2022-12-30] MEDS: Dolutegravir Sodium 50 MG TABLET PO (07:54)
[2022-12-30] MEDS: Buprenorphine/Naloxone 8/2 mg FILM 1 FILM SUBLINGUAL ×3 (07:54→20:33)
--- NOTE | 2022-12-30 10:10 | P.PNGS_ITS ---
Subjective Subjective Date of Service: 12/30/22 Interval history: The patient is seen in coverage for Dr. Vo Patient reports he is comfortable with some pain and some flatus/bm. Tolerated some clear Physical Exam Vital Signs: Vital Signs: Last Vital Signs Temp 97.2 F 12/30/22 07:49 Pulse 73 12/30/22 07:49 Resp 18 12/30/22 07:49 BP 150/70 H 12/30/22 07:49 Pulse Ox 95 12/30/22 07:49 O2 Del Method Nasal Cannula 12/30/22 07:49 O2 Flow Rate 2 12/30/22 07:49 FiO2 33 12/20/22 18:30 BMI result Body Mass Index 33.4 Patient is comfortable and in no acute respiratory distress Abdomen is obese, dressings are intact Stoma is pink and viable with gas and stool in bag, no blood Objective Data Active Medications Albuterol Sulfate (Albuterol Sulfate 90 Mcg 8 Gm Inhaler) 2 puff INHALE RQID PRN PRN Reason: Respiratory Distress Amlodipine Besylate (Amlodipine Besylate 10 Mg Tablet) 10 mg PO DAILY [facility]; Protocol Last Admin: 12/30/22 07:53 Dose: 10 mg Documented By: BRUCE Buprenorphine/Naloxone (Buprenorphine/Naloxone 8/2 Mg Film) 1 film SUBLINGUAL TID [facility] Last Admin: 12/30/22 07:54 Dose: 1 film Documented By: BRUCE Buspirone HCl (Buspirone Hcl 5 Mg Tablet) 5 mg PO TID [facility] Last Admin: 12/30/22 07:53 Dose: 5 mg Documented By: BRUCE Carvedilol (Carvedilol 12.5 Mg Tablet) 25 mg PO BID [facility]; Protocol Last Admin: 12/30/22 07:53 Dose: 25 mg Documented By: BRUCE Dextrose (Dextrose 50 % 25 Gm/50 Ml Syringe) 25 gm IVPUSH Q15M PRN; Protocol PRN Reason: per Hypoglycemia Standing Ord. Dextrose (Dextrose 50 % 25 Gm/50 Ml Syringe) 25 gm IVPUSH Q15M PRN; Protocol PRN Reason: per Hypoglycemia Standing Ord. Dolutegravir Sodium (Dolutegravir Sodium 50 Mg Tablet) 50 mg PO DAILY [facility] Last Admin: 12/30/22 07:54 Dose: 50 mg Documented By: BRUCE Enoxaparin Sodium (Enoxaparin Sodium 30 Mg/0.3 Ml Syringe) 30 mg SUBCUT Q24H [facility] Last Admin: 12/29/22 10:45 Dose: 30 mg Documented By: JEANINE Gabapentin (Gabapentin 600 Mg Tablet) 600 mg PO BID [facility] Last Admin: 12/30/22 07:53 Dose: 600 mg Documented By: BRUCE Glucose (Glucose Gel 15 Gm Gel..Gram.) 15 gm PO Q15M PRN; Protocol PRN Reason: per Hypoglycemia Standing Ord. Hydromorphone HCl (Hydromorphone Hcl 0.5 Mg/0.5 Ml Syringe) 0.5 mg IVPUSH Q2H PRN; Protocol PRN Reason: Pain, Severe (Pain Scale 7-10) Last Admin: 12/30/22 03:06 Dose: 0.5 mg Documented By: SARAHI Acetaminophen (Ofirmev) 1,000 mg in 100 mls @ 400 mls/hr IV Q6H PRN PRN Reason: abdominal pain Last Infusion: 12/29/22 17:26 Dose: 0 mls/hr Documented By: JEANINE Metronidazole (Flagyl) 500 mg in 100 mls @ 100 mls/hr IV Q8H [facility] Last Infusion: 12/30/22 06:26 Dose: 0 mls/hr Documented By: SARAHI Levofloxacin (Levaquin) 250 mg in 50 mls @ 50 mls/hr IV Q24H [facility] Last Infusion: 12/29/22 11:46 Dose: 0 mls/hr Documented By: JEANINE Nutrition (Parenteral) (Parenteral Nutrition) 1,560 mls @ 65 mls/hr IV .Q24H [facility]; Protocol Stop: 12/30/22 20:59 Last Admin: 12/29/22 20:29 Dose: 65 mls/hr Documented By: SARAHI Nutrition (Parenteral) (Parenteral Nutrition) 1,560 mls @ 65 mls/hr IV .Q24H [facility]; Protocol Stop: 12/31/22 20:59 Insulin Human Lispro (Insulin Lispro 100 Unit/Ml 3 Ml Vial) 0 unit SUBCUT QIDACHS [facility]; Protocol Last Admin: 12/30/22 07:49 Dose: 6 unit Documented By: BRUCE Lamivudine (Lamivudine 150 Mg Tablet) 300 mg PO DAILY [facility] Last Admin: 12/30/22 07:53 Dose: 300 mg Documented By: BRUCE Loratadine (Loratadine 10 Mg Tablet) 10 mg PO DAILY PRN PRN Reason: Allergic Symptoms Last Admin: 12/26/22 05:28 Dose: 10 mg Documented By: SARAHI Lorazepam (Lorazepam 2 Mg/Ml Vial) 0.5 mg IVPUSH Q8H PRN PRN Reason: anxiety/restlessness Last Admin: 12/30/22 03:06 Dose: 0.5 mg Documented By: SARAHI Omeprazole (Omeprazole 40 Mg Capsule.Dr) 40 mg PO BID@0630,1630 [facility] Last Admin: 12/30/22 05:24 Dose: 40 mg Documented By: SARAHI Ondansetron HCl (Ondansetron Hcl 4 Mg/2 Ml Vial) 4 mg IVPUSH Q8H PRN PRN Reason: Nausea and Vomiting Last Admin: 12/27/22 11:36 Dose: 4 mg Documented By: KEISHA Oxycodone HCl (Oxycodone Hcl Immed Release 5 Mg Tablet) 5 mg PO Q4H PRN PRN Reason: Pain, Moderate(Pain Scale 4-6) Last Admin: 12/28/22 14:30 Dose: 5 mg Documented By: JEANINE Oxycodone HCl (Oxycodone Hcl Immed Release 5 Mg Tablet) 10 mg PO Q4H PRN PRN Reason: Pain, Severe (Pain Scale 7-10) Last Admin: 12/29/22 14:56 Dose: 10 mg Documented By: JEANINE Pharmacy Consult (Consult Rx Parenteral Nutrition Ordering) 1 each MISCELLANE DAILY PRN PRN Reason: Consult order Sertraline HCl (Sertraline Hcl 25 Mg Tablet) 75 mg PO DAILY [facility] Last Admin: 12/30/22 07:53 Dose: 75 mg Documented By: BRUCE Sodium Chloride (0.9 % Sodium Chloride Flush 3 Ml Syringe) 3 ml IVFLUSH QSHIFT [facility] Last Admin: 12/30/22 07:49 Dose: 3 ml Documented By: BRUCE Sodium Chloride (0.9 % Sodium Chloride Flush 10 Ml Syringe) 5 ml IVFLUSH TID [facility] Last Admin: 12/30/22 07:49 Dose: 5 ml Documented By: BRUCE Trazodone HCl (Trazodone Hcl 100 Mg Tablet) 100 mg PO BEDTIME PRN PRN Reason: Sleep Last Admin: 12/28/22 20:24 Dose: 100 mg Documented By: MISHEL Labs 12/29/22 05:01 12/30/22 05:26 Labs: Laboratory Results - last 24 hr 12/29/22 12/29/22 12/29/22 11:01 16:12 19:59 Anion Gap Estim Creat Clear Calc Estimated GFR POC Glucose 225 H 230 H 228 H Random Glucose Calcium Phosphorus Magnesium Albumin 12/30/22 12/30/22 05:26 07:21 Anion Gap 14 Estim Creat Clear Calc 39.8 Estimated GFR 38 POC Glucose 275 H Random Glucose 275 H Calcium 9.2 Phosphorus 3.5 Magnesium 1.8 Albumin 2.2 L Microbiology Microbiology Results: Microbiology 12/27/22 07:55 Gram Stain - Final Incision Routine Culture - Preliminary Gram negative tesha Pseudomonas species Viridans streptococcus group Procedures Date of Service Date of Service: 12/30/22 Progress Note: A&P Assessment and plan (1) S/P exploratory laparotomy: Status: Acute (2) CKD (chronic kidney disease): Status: Acute (3) Small bowel obstruction: Status: Acute Plan Continue present management including TPN and antibiotics Continue present diet Time Spent With Patient Time: Total time managing care of this patient today ____ minutes. Quality Stroke Does the patient have a stroke diagnosis?: No VTE Prior VTE?: No VTE Risk Level:: Surgical - moderate VTE Device Contraindication: N/A - Device Ordered VTE Drug Contraindication: N/A - Med Ordered
[2022-12-30 11:32] LABS: Glucose, Whole Blood 244 mg/dL (60-115)
[2022-12-30] MEDS: Enoxaparin Sodium 30 MG/0.3 ML SYRINGE SUBCUT (11:48)
[2022-12-30] MEDS: levoFLOXacin/D5W 250 MG/50 ML PIGGYBACK 50 MG IV (11:49)
[2022-12-30 16:04] VITALS: BP 158/76; PULSE 70; RESP 22; TEMP 36.4; O2SAT 97
[2022-12-30 16:32] LABS: Glucose, Whole Blood 230 mg/dL (60-115)
--- NOTE | 2022-12-30 18:03 | PC.NURSE ---
moderate amount of purulent drainage noted to lower abd incision, mult. radha not intact; picture sent to promotions executive producer , Dr. Alas. says OK to change dsg; dry gauze qshift, no new orders at this time.
[2022-12-30] MEDS: oxyCODONE HCl Immed Release 5 MG TABLET 10 MG PO (18:24)
[2022-12-30 20:00] VITALS: BP 160/83; PULSE 79; RESP 20; TEMP 36.9; O2SAT 95
[2022-12-30 20:55] LABS: Glucose, Whole Blood 259 mg/dL (60-115)
[2022-12-30] MEDS: Parenteral Nutrition 1,560 ML 65 ML IV (21:04)
[2022-12-31 04:00] VITALS: BP 110/70; PULSE 78; RESP 18; TEMP 36.3; O2SAT 99
[2022-12-31] MEDS: HYDROmorphone HCl 0.5 MG/0.5 ML SYRINGE IVPUSH ×4 (04:00→20:47)
[2022-12-31] MEDS: metroNIDAZOLE/NS 500 MG/100 ML PIGGYBACK 100 MG IV ×3 (05:38→22:09)
[2022-12-31] MEDS: Omeprazole 40 MG CAPSULE.DR PO ×2 (05:38→17:05)
[2022-12-31 06:23] LABS: Albumin Level 2.3 g/dL (3.5-5.0); Anion Gap 12 (12-20); Blood Urea Nitrogen 47 mg/dL (9-16); Calcium 9.1 mg/dL (8.4-10.2); Carbon Dioxide 19 mmol/L (22-29); Chloride 109 mmol/L (96-108); Creatinine Clr Calc Pharmacy 38.1; Estimated Glomerular Filt Rate 36; Glucose Random 277 mg/dL (60-115); Magnesium 1.9 mg/dL (1.6-2.6); Phosphorus 3.9 mg/dL (2.7-4.5); Potassium 4.8 mmol/L (3.3-5.1); Sodium 135 mmol/L (135-145)
[2022-12-31 07:10] LABS: Glucose, Whole Blood 276 mg/dL (60-115)
[2022-12-31 07:23] VITALS: BP 153/76; PULSE 64; RESP 16; TEMP 36.1; O2SAT 95
[2022-12-31] MEDS: Buprenorphine/Naloxone 8/2 mg FILM 1 FILM SUBLINGUAL ×3 (07:39→20:47)
[2022-12-31] MEDS: Insulin Lispro 100 UNIT/ML 3 ML VIAL SUBCUT ×3 (07:39→20:46)
[2022-12-31] MEDS: oxyCODONE HCl Immed Release 5 MG TABLET 10 MG PO ×2 (07:39→13:27)
[2022-12-31] MEDS: lamiVUDine 150 MG TABLET 300 MG PO (07:41)
[2022-12-31] MEDS: 0.9 % Sodium Chloride Flush 10 ML SYRINGE 5 ML IVFLUSH ×3 (07:41→20:48)
[2022-12-31] MEDS: Sertraline HCL 25 MG TABLET 75 MG PO (07:42)
[2022-12-31] MEDS: Gabapentin 600 MG TABLET PO ×2 (07:42→20:46)
[2022-12-31] MEDS: busPIRone HCl 5 MG TABLET PO ×3 (07:42→20:46)
[2022-12-31] MEDS: Dolutegravir Sodium 50 MG TABLET PO (07:42)
[2022-12-31] MEDS: carvediloL 12.5 MG TABLET 25 MG PO ×2 (07:42→20:46)
[2022-12-31] MEDS: amLODIPine Besylate 10 MG TABLET PO (07:42)
[2022-12-31 07:56] LABS: Basophils Absolute Auto 0.1 X10*3/uL (0.0-0.2); Basophils Percent Auto 0.3 % (0-2); Eosinophils Absolute Auto 0.2 X10*3/uL (0.0-0.4); Eosinophils Percent Auto 1.1 % (0-4); Hematocrit 32.9 % (42.0-52.0); Hemoglobin 10.5 g/dl (14.0-18.0); Imm Gran Abs Auto 0.67 X10*3/uL (0.00-0.03); Imm Gran Pct Auto 4.3 % (0.0-0.4); Lymphocytes Absolute Auto 2.1 X10*3/uL (1.2-4.9); Lymphocytes Percent Auto 13.8 % (20-40); MANUAL DIFF FLAG SCAN; Mean Corpuscular HGB Conc 31.9 g/dl (31.0-36.0); Mean Corpuscular Volume 106.5 fL (80.0-98.0); Mean Platelet Volume 11.8 fL (9.4-12.4); Monocytes Absolute Auto 1.7 X10*3/uL (0.1-1.2); Monocytes Percent Auto 10.7 % (2-11); NRBC Pct Auto 0.3 /100WBC (0.0-0.2); Neutrophils Absolute Auto 10.8 x10*3/uL (2.0-8.3); Neutrophils Percent Auto 69.8 % (45-73); Platelet Count 410 X10*3/uL (160-400); Red Blood Count 3.09 X10*6/uL (4.60-5.80); Red Cell Distribution Width 13.9 % (11.0-16.0); SCAN SMEAR FLAG 1; White Blood Count 15.5 X10*3/uL (4.8-10.8)
--- NOTE | 2022-12-31 08:14 | PM.PNNEP ---
Subjective Subjective Date of Service: 12/31/22 Interval history: Pt seen Stable overnigh Getting TPN Physical Exam Vital Signs: Vital Signs: Last Vital Signs Temp 96.9 F 12/31/22 07:23 Pulse 64 12/31/22 07:23 Resp 16 12/31/22 07:23 BP 153/76 H 12/31/22 07:23 Pulse Ox 95 12/31/22 07:23 O2 Del Method Nasal Cannula 12/31/22 07:23 O2 Flow Rate 1 12/31/22 07:23 FiO2 33 12/20/22 18:30 BMI result Body Mass Index 33.4 Const: Other: General awake alert x3,in no acute distress. NG with bilious drainage Neck is supple no JVD. CVS regular rate rhythm, Respiratory lungs clear to auscultation, no respiratory distress, no rhonchi. Gastrointestinal abdomen soft, mid abdominal tenderness to palpation, bowel sounds audible, no guarding , no rigidity, colostomy bag with light brown liquid. Extremities no edema. Neuro nonfocal ,speech clear. Skin no rash appropriate affect General: cooperative, comfortable, no acute distress, well developed and alert Nutritional Appearance: well nourished and obese Orientation/consciousness: patient oriented x3 Limitations: no limitations and No language barrier HEENT: Other: NGT in place, scant bilious output Eyes: Sclerae: sclerae normal EOM: EOMs intact bilaterally Neck: Neck: Yes normal visual inspection and Yes supple Resp: Effort & Inspection: normal respiratory effort, no audible wheezes, no cough, no respiratory distress and no stridor Cardio: Jugular venous distension: no JVD Palpation: no palpable S3 Heart sounds: no murmurs and no rubs GI: Other: incision continues with purulent output from superior and inferior aspect; no significant erythema ostomy with liquid output Inspection: Yes normal to inspection, No distended, Yes incision (clean) and Yes other (ostomy bag in place) Palpation (GI): Soft to palpation, Tenderness to palpation present (GI) (mild incisional) in the LLQ and in the RLQ, no guarding, not rigid and No Rebound tenderness present Percussion: Yes normal to percussion and Yes tympanic to percussion Auscultation: normal bowel sounds Rectal Exam - Male: Yes deferred Skin: General skin exam: no rashes or lesions noted and dry skin Rashes: no rashes Neuro: General: patient oriented x3, moves all extremities and no focal motor deficits Motor exam (neuro): No Asterixis during motor activity present Extrem: General: Yes normal to inspection, Yes full ROM and Yes no clubbing, cyanosis or edema Psych: Appearance: grossly normal Objective Data Labs 12/31/22 05:13 12/31/22 05:13 Labs: Laboratory Results - last 24 hr 12/30/22 12/30/22 12/30/22 11:09 16:17 20:48 WBC RBC Hgb Hct MCV MCH MCHC RDW Plt Count MPV Sodium Potassium Chloride Carbon Dioxide Anion Gap BUN Creatinine Estim Creat Clear Calc Estimated GFR POC Glucose 244 H 230 H 259 H Random Glucose Calcium Phosphorus Magnesium Albumin 12/31/22 12/31/22 12/31/22 05:13 05:13 07:06 WBC 15.5 H RBC 3.09 L Hgb 10.5 L Hct 32.9 L MCV 106.5 H MCH 34.0 H MCHC 31.9 RDW 13.9 Plt Count 410 H D MPV 11.8 Sodium 135 Potassium 4.8 Chloride 109 H Carbon Dioxide 19 L Anion Gap 12 BUN 47 H Creatinine 1.85 H Estim Creat Clear Calc 38.1 Estimated GFR 36 POC Glucose 276 H Random Glucose 277 H Calcium 9.1 Phosphorus 3.9 Magnesium 1.9 Albumin 2.3 L Microbiology Microbiology Results: Microbiology 12/27/22 07:55 Incision Gram Stain - Final 12/27/22 07:55 Incision Routine Culture - Final Enterobacter cloacae complex Pseudomonas aeruginosa Viridans streptococcus group Procedures Date of Service Date of Service: 12/31/22 Assessment & Plan Assessment and plan (1) CKD (chronic kidney disease): Status: Acute (2) Acute kidney injury superimposed on CKD: Status: Acute Assessment and Plan: Slightly worse creatinine 1.8 ATN likely due to sepsis, hypoperfusion around surgery Can't rule out PPI induced AIN (3) Severe anemia: Status: Acute Plan Stop PPI Ensure adeqate fluids with TPN Avoid contrast Time Spent With Patient Time: Total time managing care of this patient today ____ minutes. Progress Note: Quality Stroke Does the patient have a stroke diagnosis?: No
[2022-12-31 08:19] LABS: SLIDE REVIEW VERIFIED
--- NOTE | 2022-12-31 09:32 | P.PNGS_ITS ---
Subjective Subjective Date of Service: 12/31/22 Patient reports: no new complaints Interval history: The patient is seen in coverage for Dr. Vo Patient reports he is comfortable with some nausea but no vomiting and minimal pain; +flatus/succus via ostomy. Tolerated some clears, but did not eat breakfast today noting that he has just not hungry. Physical Exam Vital Signs: Vital Signs: Last Vital Signs Temp 96.9 F 12/31/22 07:23 Pulse 64 12/31/22 07:23 Resp 16 12/31/22 07:23 BP 153/76 H 12/31/22 07:23 Pulse Ox 95 12/31/22 07:23 O2 Del Method Nasal Cannula 12/31/22 07:23 O2 Flow Rate 1 12/31/22 07:23 FiO2 33 12/20/22 18:30 BMI result Body Mass Index 33.4 Abdominal dressing is clean dry and intact Ileostomy is pink and viable with no blood; both gas and succus are expressed. Patient's abdomen is obese with minimal tenderness and no peritoneal sign Objective Data Active Medications Albuterol Sulfate (Albuterol Sulfate 90 Mcg 8 Gm Inhaler) 2 puff INHALE RQID PRN PRN Reason: Respiratory Distress Amlodipine Besylate (Amlodipine Besylate 10 Mg Tablet) 10 mg PO DAILY [facility]; Protocol Last Admin: 12/31/22 07:42 Dose: 10 mg Documented By: BRUCE Buprenorphine/Naloxone (Buprenorphine/Naloxone 8/2 Mg Film) 1 film SUBLINGUAL TID [facility] Last Admin: 12/31/22 07:39 Dose: 1 film Documented By: BRUCE Buspirone HCl (Buspirone Hcl 5 Mg Tablet) 5 mg PO TID [facility] Last Admin: 12/31/22 07:42 Dose: 5 mg Documented By: BRUCE Carvedilol (Carvedilol 12.5 Mg Tablet) 25 mg PO BID [facility]; Protocol Last Admin: 12/31/22 07:42 Dose: 25 mg Documented By: BRUCE Dextrose (Dextrose 50 % 25 Gm/50 Ml Syringe) 25 gm IVPUSH Q15M PRN; Protocol PRN Reason: per Hypoglycemia Standing Ord. Dextrose (Dextrose 50 % 25 Gm/50 Ml Syringe) 25 gm IVPUSH Q15M PRN; Protocol PRN Reason: per Hypoglycemia Standing Ord. Dolutegravir Sodium (Dolutegravir Sodium 50 Mg Tablet) 50 mg PO DAILY [facility] Last Admin: 12/31/22 07:42 Dose: 50 mg Documented By: BRUCE Enoxaparin Sodium (Enoxaparin Sodium 30 Mg/0.3 Ml Syringe) 30 mg SUBCUT Q24H [facility] Last Admin: 12/30/22 11:48 Dose: 30 mg Documented By: BRUCE Gabapentin (Gabapentin 600 Mg Tablet) 600 mg PO BID [facility] Last Admin: 12/31/22 07:42 Dose: 600 mg Documented By: BRUCE Glucose (Glucose Gel 15 Gm Gel..Gram.) 15 gm PO Q15M PRN; Protocol PRN Reason: per Hypoglycemia Standing Ord. Hydromorphone HCl (Hydromorphone Hcl 0.5 Mg/0.5 Ml Syringe) 0.5 mg IVPUSH Q2H PRN; Protocol PRN Reason: Pain, Severe (Pain Scale 7-10) Last Admin: 12/31/22 04:00 Dose: 0.5 mg Documented By: SARAHI Metronidazole (Flagyl) 500 mg in 100 mls @ 100 mls/hr IV Q8H [facility] Last Infusion: 12/31/22 06:40 Dose: 0 mls/hr Documented By: SARAHI Levofloxacin (Levaquin) 250 mg in 50 mls @ 50 mls/hr IV Q24H [facility] Last Infusion: 12/30/22 13:11 Dose: 0 mls/hr Documented By: BRUCE Nutrition (Parenteral) (Parenteral Nutrition) 1,560 mls @ 65 mls/hr IV .Q24H [facility]; Protocol Stop: 12/31/22 20:59 Last Admin: 12/30/22 21:04 Dose: 65 mls/hr Documented By: SARAHI Insulin Human Lispro (Insulin Lispro 100 Unit/Ml 3 Ml Vial) 0 unit SUBCUT QIDACHS [facility]; Protocol Last Admin: 12/31/22 07:39 Dose: 6 unit Documented By: BRUCE Lamivudine (Lamivudine 150 Mg Tablet) 300 mg PO DAILY [facility] Last Admin: 12/31/22 07:41 Dose: 300 mg Documented By: BRUCE Loratadine (Loratadine 10 Mg Tablet) 10 mg PO DAILY PRN PRN Reason: Allergic Symptoms Last Admin: 12/26/22 05:28 Dose: 10 mg Documented By: SARAHI Omeprazole (Omeprazole 40 Mg Capsule.Dr) 40 mg PO BID@0630,1630 [facility] Last Admin: 12/31/22 05:38 Dose: 40 mg Documented By: SARAHI Ondansetron HCl (Ondansetron Hcl 4 Mg/2 Ml Vial) 4 mg IVPUSH Q8H PRN PRN Reason: Nausea and Vomiting Last Admin: 12/27/22 11:36 Dose: 4 mg Documented By: KEISHA Oxycodone HCl (Oxycodone Hcl Immed Release 5 Mg Tablet) 5 mg PO Q4H PRN PRN Reason: Pain, Moderate(Pain Scale 4-6) Last Admin: 12/28/22 14:30 Dose: 5 mg Documented By: COTEMA Oxycodone HCl (Oxycodone Hcl Immed Release 5 Mg Tablet) 10 mg PO Q4H PRN PRN Reason: Pain, Severe (Pain Scale 7-10) Last Admin: 12/31/22 07:39 Dose: 10 mg Documented By: BRUCE Pharmacy Consult (Consult Rx Parenteral Nutrition Ordering) 1 each MISCELLANE DAILY PRN PRN Reason: Consult order Sertraline HCl (Sertraline Hcl 25 Mg Tablet) 75 mg PO DAILY [facility] Last Admin: 12/31/22 07:42 Dose: 75 mg Documented By: BRUCE Sodium Chloride (0.9 % Sodium Chloride Flush 3 Ml Syringe) 3 ml IVFLUSH QSHIFT [facility] Last Admin: 12/31/22 07:35 Dose: Not Given Documented By: BRUCE Non-Admin Reason: IV Running Sodium Chloride (0.9 % Sodium Chloride Flush 10 Ml Syringe) 5 ml IVFLUSH TID [facility] Last Admin: 12/31/22 07:41 Dose: 5 ml Documented By: BRUCE Trazodone HCl (Trazodone Hcl 100 Mg Tablet) 100 mg PO BEDTIME PRN PRN Reason: Sleep Last Admin: 12/28/22 20:24 Dose: 100 mg Documented By: MISHEL Labs 12/31/22 05:13 12/31/22 05:13 Labs: Laboratory Results - last 24 hr 12/30/22 12/30/22 12/30/22 11:09 16:17 20:48 MCV MCH MCHC RDW Plt Count MPV Immature Gran % (Auto) Neut % (Auto) Lymph % (Auto) [place] % (Auto) Eos % (Auto) Baso % (Auto) Lymph # (Auto) [place] # (Auto) Eos # (Auto) Baso # (Auto) Abs Immat Gran (auto) Absolute Neuts (auto) Absolute Nucleated RBC Nucleated RBC % (auto) Smear Tech's Comments Anion Gap Estim Creat Clear Calc Estimated GFR POC Glucose 244 H 230 H 259 H Random Glucose Calcium Phosphorus Magnesium Albumin 12/31/22 12/31/22 12/31/22 05:13 05:13 07:06 MCV 106.5 H MCH 34.0 H MCHC 31.9 RDW 13.9 Plt Count 410 H D MPV 11.8 Immature Gran % (Auto) 4.3 H Neut % (Auto) 69.8 Lymph % (Auto) 13.8 L [place] % (Auto) 10.7 Eos % (Auto) 1.1 Baso % (Auto) 0.3 Lymph # (Auto) 2.1 [place] # (Auto) 1.7 H Eos # (Auto) 0.2 Baso # (Auto) 0.1 Abs Immat Gran (auto) 0.67 H Absolute Neuts (auto) 10.8 H Absolute Nucleated RBC 0.050 H Nucleated RBC % (auto) 0.3 H Smear Tech's Comments VERIFIED Anion Gap 12 Estim Creat Clear Calc 38.1 Estimated GFR 36 POC Glucose 276 H Random Glucose 277 H Calcium 9.1 Phosphorus 3.9 Magnesium 1.9 Albumin 2.3 L Microbiology Microbiology Results: Microbiology 12/27/22 07:55 Gram Stain - Final Incision Routine Culture - Final Enterobacter cloacae complex Pseudomonas aeruginosa Viridans streptococcus group Procedures Date of Service Date of Service: 12/31/22 Progress Note: A&P Assessment and plan (1) S/P exploratory laparotomy: Status: Acute (2) CKD (chronic kidney disease): Status: Acute Plan Antibiotic coverage appears appropriate based on sensitivities; continue to change dressing Q shift and p.r.n. Continue TPN and antibiotics Await improvement in patient's ability to take p.o.. He declined advancing his diet noting that he did not eat breakfast. Time Spent With Patient Time: Total time managing care of this patient today ____ minutes. Quality Stroke Does the patient have a stroke diagnosis?: No VTE Prior VTE?: No VTE Risk Level:: Surgical - moderate VTE Device Contraindication: N/A - Device Ordered VTE Drug Contraindication: N/A - Med Ordered
[2022-12-31 11:10] LABS: Glucose, Whole Blood 255 mg/dL (60-115)
[2022-12-31] MEDS: Enoxaparin Sodium 30 MG/0.3 ML SYRINGE SUBCUT (11:48)
[2022-12-31] MEDS: levoFLOXacin/D5W 250 MG/50 ML PIGGYBACK 50 MG IV (11:49)
[2022-12-31 15:15] VITALS: BP 139/67; PULSE 70; RESP 18; TEMP 36.2; O2SAT 98
[2022-12-31] MEDS: 0.9 % Sodium Chloride Flush 3 ML SYRINGE IVFLUSH ×2 (15:35→23:42)
[2022-12-31 16:14] LABS: Glucose, Whole Blood 183 mg/dL (60-115)
[2022-12-31 19:26] VITALS: BP 159/73; PULSE 75; RESP 20; TEMP 36.4; O2SAT 95
[2022-12-31 20:37] LABS: Glucose, Whole Blood 279 mg/dL (60-115)
[2022-12-31 20:47] VITALS: RESP 18
[2022-12-31] MEDS: traZODone HCL 100 MG TABLET PO (20:57)
[2022-12-31] MEDS: Parenteral Nutrition 1,560 ML 65 ML IV (22:00)
[2023-01-01] MEDS: oxyCODONE HCl Immed Release 5 MG TABLET 10 MG PO ×2 (00:05→10:40)
[2023-01-01 04:00] VITALS: BP 140/64; PULSE 78; RESP 20; TEMP 36.3; O2SAT 96
[2023-01-01] MEDS: HYDROmorphone HCl 0.5 MG/0.5 ML SYRINGE IVPUSH ×4 (05:38→21:05)
[2023-01-01] MEDS: Omeprazole 40 MG CAPSULE.DR PO ×2 (05:39→15:45)
[2023-01-01] MEDS: metroNIDAZOLE/NS 500 MG/100 ML PIGGYBACK 100 MG IV ×3 (05:39→21:48)
[2023-01-01 06:38] LABS: Basophils Absolute Auto 0.1 X10*3/uL (0.0-0.2); Basophils Percent Auto 0.3 % (0-2); Eosinophils Absolute Auto 0.1 X10*3/uL (0.0-0.4); Eosinophils Percent Auto 0.8 % (0-4); Hematocrit 31.1 % (42.0-52.0); Hemoglobin 10.2 g/dl (14.0-18.0); Imm Gran Abs Auto 0.69 X10*3/uL (0.00-0.03); Lymphocytes Absolute Auto 2.2 X10*3/uL (1.2-4.9); Lymphocytes Percent Auto 12.4 % (20-40); MANUAL DIFF FLAG SCAN; Mean Corpuscular HGB Conc 32.8 g/dl (31.0-36.0); Mean Corpuscular Hemoglobin 34.3 pg (27.0-33.0); Mean Corpuscular Volume 104.7 fL (80.0-98.0); Mean Platelet Volume 11.4 fL (9.4-12.4); Monocytes Absolute Auto 1.8 X10*3/uL (0.1-1.2); Monocytes Percent Auto 10.1 % (2-11); NRBC Pct Auto 0.3 /100WBC (0.0-0.2); Neutrophils Absolute Auto 12.6 x10*3/uL (2.0-8.3); Neutrophils Percent Auto 72.4 % (45-73); Platelet Count 470 X10*3/uL (160-400); Red Blood Count 2.97 X10*6/uL (4.60-5.80); Red Cell Distribution Width 13.7 % (11.0-16.0); SCAN SMEAR FLAG 1; White Blood Count 17.4 X10*3/uL (4.8-10.8)
[2023-01-01 06:40] LABS: Albumin Level 2.2 g/dL (3.5-5.0); Anion Gap 12 (12-20); Blood Urea Nitrogen 44 mg/dL (9-16); Calcium 8.9 mg/dL (8.4-10.2); Carbon Dioxide 19 mmol/L (22-29); Chloride 108 mmol/L (96-108); Creatinine Clr Calc Pharmacy 38.9; Estimated Glomerular Filt Rate 37; Glucose Random 301 mg/dL (60-115); Potassium 4.5 mmol/L (3.3-5.1); Sodium 134 mmol/L (135-145)
[2023-01-01 07:18] LABS: SLIDE REVIEW VERIFIED
[2023-01-01 08:00] VITALS: BP 165/78; PULSE 83; RESP 16; TEMP 36.6; O2SAT 93
[2023-01-01 08:01] LABS: Glucose, Whole Blood 288 mg/dL (60-115)
[2023-01-01] MEDS: Gabapentin 600 MG TABLET PO ×2 (08:01→21:20)
[2023-01-01] MEDS: Insulin Lispro 100 UNIT/ML 3 ML VIAL SUBCUT ×4 (08:01→21:19)
[2023-01-01] MEDS: lamiVUDine 150 MG TABLET 300 MG PO (08:02)
[2023-01-01] MEDS: carvediloL 12.5 MG TABLET 25 MG PO ×2 (08:02→21:20)
[2023-01-01] MEDS: Sertraline HCL 25 MG TABLET 75 MG PO (08:02)
[2023-01-01] MEDS: 0.9 % Sodium Chloride Flush 10 ML SYRINGE 5 ML IVFLUSH ×3 (08:02→21:47)
[2023-01-01] MEDS: amLODIPine Besylate 10 MG TABLET PO (08:02)
[2023-01-01] MEDS: busPIRone HCl 5 MG TABLET PO ×3 (08:15→21:20)
[2023-01-01] MEDS: Dolutegravir Sodium 50 MG TABLET PO (08:15)
[2023-01-01] MEDS: Buprenorphine/Naloxone 8/2 mg FILM 1 FILM SUBLINGUAL ×3 (09:06→21:20)
[2023-01-01] MEDS: Enoxaparin Sodium 30 MG/0.3 ML SYRINGE SUBCUT (10:41)
[2023-01-01] MEDS: levoFLOXacin/D5W 250 MG/50 ML PIGGYBACK 50 MG IV (10:41)
--- NOTE | 2023-01-01 10:42 | P.PNGS_ITS ---
Subjective Subjective Date of Service: 01/01/23 Patient reports: feels better, flatus and bowel movement Interval history: The patient is seen in coverage for Dr. Vo Patient reports he is comfortable with some nausea but no vomiting and minimal pain; +flatus/succus via ostomy. Tolerated diabetic diet yesterday Denies SOB Physical Exam Vital Signs: Vital Signs: Last Vital Signs Temp 97.8 F 01/01/23 08:00 Pulse 83 01/01/23 08:00 Resp 16 01/01/23 08:00 BP 165/78 H 01/01/23 08:00 Pulse Ox 93 01/01/23 08:00 O2 Del Method Room Air 01/01/23 08:00 O2 Flow Rate 1 12/31/22 15:15 FiO2 33 12/20/22 18:30 BMI result Body Mass Index 33.4 Abdominal dressing is clean dry and intact Ileostomy is pink and viable with no blood; both gas and succus are expressed. Patient's abdomen is obese with minimal tenderness and no peritoneal sign Objective Data Active Medications Albuterol Sulfate (Albuterol Sulfate 90 Mcg 8 Gm Inhaler) 2 puff INHALE RQID PRN PRN Reason: Respiratory Distress Amlodipine Besylate (Amlodipine Besylate 10 Mg Tablet) 10 mg PO DAILY [facility]; Protocol Last Admin: 01/01/23 08:02 Dose: 10 mg Documented By: KELVIN Buprenorphine/Naloxone (Buprenorphine/Naloxone 8/2 Mg Film) 1 film SUBLINGUAL TID [facility] Last Admin: 01/01/23 09:06 Dose: 1 film Documented By: KELVIN Buspirone HCl (Buspirone Hcl 5 Mg Tablet) 5 mg PO TID [facility] Last Admin: 01/01/23 08:15 Dose: 5 mg Documented By: KELVIN Carvedilol (Carvedilol 12.5 Mg Tablet) 25 mg PO BID [facility]; Protocol Last Admin: 01/01/23 08:02 Dose: 25 mg Documented By: KELVIN Dextrose (Dextrose 50 % 25 Gm/50 Ml Syringe) 25 gm IVPUSH Q15M PRN; Protocol PRN Reason: per Hypoglycemia Standing Ord. Dextrose (Dextrose 50 % 25 Gm/50 Ml Syringe) 25 gm IVPUSH Q15M PRN; Protocol PRN Reason: per Hypoglycemia Standing Ord. Dolutegravir Sodium (Dolutegravir Sodium 50 Mg Tablet) 50 mg PO DAILY [facility] Last Admin: 01/01/23 08:15 Dose: 50 mg Documented By: KELVIN Enoxaparin Sodium (Enoxaparin Sodium 30 Mg/0.3 Ml Syringe) 30 mg SUBCUT Q24H [facility] Last Admin: 12/31/22 11:48 Dose: 30 mg Documented By: BRUCE Gabapentin (Gabapentin 600 Mg Tablet) 600 mg PO BID [facility] Last Admin: 01/01/23 08:01 Dose: 600 mg Documented By: KELVIN Glucose (Glucose Gel 15 Gm Gel..Gram.) 15 gm PO Q15M PRN; Protocol PRN Reason: per Hypoglycemia Standing Ord. Hydromorphone HCl (Hydromorphone Hcl 0.5 Mg/0.5 Ml Syringe) 0.5 mg IVPUSH Q2H PRN; Protocol PRN Reason: Pain, Severe (Pain Scale 7-10) Last Admin: 01/01/23 08:15 Dose: 0.5 mg Documented By: KELVIN Metronidazole (Flagyl) 500 mg in 100 mls @ 100 mls/hr IV Q8H [facility] Last Infusion: 01/01/23 06:39 Dose: 0 mls/hr Documented By: ANTHONY Levofloxacin (Levaquin) 250 mg in 50 mls @ 50 mls/hr IV Q24H [facility] Last Infusion: 12/31/22 13:16 Dose: 0 mls/hr Documented By: BRUCE Nutrition (Parenteral) (Parenteral Nutrition) 1,560 mls @ 65 mls/hr IV .Q24H [facility]; Protocol Stop: 01/01/23 20:59 Last Admin: 12/31/22 22:00 Dose: 65 mls/hr Documented By: ANTHONY Insulin Human Lispro (Insulin Lispro 100 Unit/Ml 3 Ml Vial) 0 unit SUBCUT QIDACHS [facility]; Protocol Last Admin: 01/01/23 08:01 Dose: 6 unit Documented By: KELVIN Lamivudine (Lamivudine 150 Mg Tablet) 300 mg PO DAILY [facility] Last Admin: 01/01/23 08:02 Dose: 300 mg Documented By: KELVIN Loratadine (Loratadine 10 Mg Tablet) 10 mg PO DAILY PRN PRN Reason: Allergic Symptoms Last Admin: 12/26/22 05:28 Dose: 10 mg Documented By: SARAHI Omeprazole (Omeprazole 40 Mg Capsule.Dr) 40 mg PO BID@0630,1630 [facility] Last Admin: 01/01/23 05:39 Dose: 40 mg Documented By: ROBBI Ondansetron HCl (Ondansetron Hcl 4 Mg/2 Ml Vial) 4 mg IVPUSH Q8H PRN PRN Reason: Nausea and Vomiting Last Admin: 12/27/22 11:36 Dose: 4 mg Documented By: KEISHA Oxycodone HCl (Oxycodone Hcl Immed Release 5 Mg Tablet) 5 mg PO Q4H PRN PRN Reason: Pain, Moderate(Pain Scale 4-6) Last Admin: 12/28/22 14:30 Dose: 5 mg Documented By: COTEMA Oxycodone HCl (Oxycodone Hcl Immed Release 5 Mg Tablet) 10 mg PO Q4H PRN PRN Reason: Pain, Severe (Pain Scale 7-10) Last Admin: 01/01/23 00:05 Dose: 10 mg Documented By: HARI Pharmacy Consult (Consult Rx Parenteral Nutrition Ordering) 1 each MISCELLANE DAILY PRN PRN Reason: Consult order Sertraline HCl (Sertraline Hcl 25 Mg Tablet) 75 mg PO DAILY [facility] Last Admin: 01/01/23 08:02 Dose: 75 mg Documented By: KELVIN Sodium Chloride (0.9 % Sodium Chloride Flush 3 Ml Syringe) 3 ml IVFLUSH QSHIFT [facility] Last Admin: 01/01/23 08:03 Dose: Not Given Documented By: KELVIN Non-Admin Reason: No Access Sodium Chloride (0.9 % Sodium Chloride Flush 10 Ml Syringe) 5 ml IVFLUSH TID [facility] Last Admin: 01/01/23 08:02 Dose: 5 ml Documented By: KELVIN Trazodone HCl (Trazodone Hcl 100 Mg Tablet) 100 mg PO BEDTIME PRN PRN Reason: Sleep Last Admin: 12/31/22 20:57 Dose: 100 mg Documented By: RUBAASY Labs 01/01/23 05:59 01/01/23 05:59 Labs: Laboratory Results - last 24 hr 12/31/22 12/31/22 12/31/22 11:06 16:06 20:30 MCV MCH MCHC RDW Plt Count MPV Immature Gran % (Auto) Neut % (Auto) Lymph % (Auto) [place] % (Auto) Eos % (Auto) Baso % (Auto) Lymph # (Auto) [place] # (Auto) Eos # (Auto) Baso # (Auto) Abs Immat Gran (auto) Absolute Neuts (auto) Absolute Nucleated RBC Nucleated RBC % (auto) Smear Tech's Comments Anion Gap Estim Creat Clear Calc Estimated GFR POC Glucose 255 H 183 H 279 H Random Glucose Calcium Albumin 01/01/23 01/01/23 01/01/23 05:59 05:59 07:51 MCV 104.7 H MCH 34.3 H MCHC 32.8 RDW 13.7 Plt Count 470 H MPV 11.4 Immature Gran % (Auto) 4.0 H Neut % (Auto) 72.4 Lymph % (Auto) 12.4 L [place] % (Auto) 10.1 Eos % (Auto) 0.8 Baso % (Auto) 0.3 Lymph # (Auto) 2.2 [place] # (Auto) 1.8 H Eos # (Auto) 0.1 Baso # (Auto) 0.1 Abs Immat Gran (auto) 0.69 H Absolute Neuts (auto) 12.6 H Absolute Nucleated RBC 0.060 H Nucleated RBC % (auto) 0.3 H Smear Tech's Comments VERIFIED Anion Gap 12 Estim Creat Clear Calc 38.9 Estimated GFR 37 POC Glucose 288 H Random Glucose 301 H Calcium 8.9 Albumin 2.2 L Microbiology Microbiology Results: Microbiology 12/27/22 07:55 Gram Stain - Final Incision Routine Culture - Final Enterobacter cloacae complex Pseudomonas aeruginosa Viridans streptococcus group Procedures Date of Service Date of Service: 01/01/23 Progress Note: A&P Assessment and plan (1) S/P exploratory laparotomy: Status: Acute (2) CKD (chronic kidney disease): Status: Acute (3) Small bowel obstruction: Status: Acute Plan Antibiotic coverage appears appropriate based on sensitivities; continue to change dressing Q shift and p.r.n. Continue TPN and antibiotics Continue current diet. Dr. Vo to resume care tomorrow Time Spent With Patient Time: Total time managing care of this patient today ____ minutes. Quality Stroke Does the patient have a stroke diagnosis?: No VTE Prior VTE?: No VTE Risk Level:: Surgical - moderate VTE Device Contraindication: N/A - Device Ordered VTE Drug Contraindication: N/A - Med Ordered
--- NOTE | 2023-01-01 10:53 | MHC.CLN ---
F/U DIET=DIABETIC 2000 KCAL. APPEARS TO BE TOLERATING DIET. VARIABLE INTAKE, 0-50%. CONTINUE TPN PER MD. REVIEWED LABS, COMMUNICATED WITH PHARMACY. PT RECEIVING MAX GOAL RATE [id number]@65 ML PER HOUR, 69 G LIPIDS. PROVIDES 1798 TOTAL KCALS (25 KCALS/KG CMW), 234 G DEXTROSE, 78 G PROTEIN (1.09 G/KG CMW), 69 G LIPIDS. CONTINUE SAME RATE TODAY. REPLETE LYTES NEEDED. MONITOR PO INTAKE CLOSELY.
[2023-01-01 11:45] LABS: Glucose, Whole Blood 267 mg/dL (60-115)
[2023-01-01 11:55] LABS: Magnesium 1.7 mg/dL (1.6-2.6); Phosphorus 3.6 mg/dL (2.7-4.5)
[2023-01-01 15:09] VITALS: BP 174/80; PULSE 77; RESP 18; TEMP 36.9; O2SAT 95
[2023-01-01] MEDS: 0.9 % Sodium Chloride Flush 3 ML SYRINGE IVFLUSH (15:46)
[2023-01-01 16:08] VITALS: BP 168/73; PULSE 86
[2023-01-01 16:26] LABS: Glucose, Whole Blood 292 mg/dL (60-115)
[2023-01-01] MEDS: Trolamine Salicylate 10 % Cream 85 GM TUBE 1 APPL TOPICAL (17:00)
[2023-01-01 20:00] VITALS: BP 137/69; PULSE 91; RESP 18; TEMP 36.5; O2SAT 94
[2023-01-01 20:26] LABS: Glucose, Whole Blood 259 mg/dL (60-115)
[2023-01-01] MEDS: Parenteral Nutrition 1,560 ML 65 ML IV (21:14)
[2023-01-02] MEDS: 0.9 % Sodium Chloride Flush 3 ML SYRINGE IVFLUSH (01:43)
[2023-01-02] MEDS: HYDROmorphone HCl 0.5 MG/0.5 ML SYRINGE IVPUSH ×4 (01:50→21:12)
[2023-01-02 03:56] VITALS: BP 157/75; PULSE 78; RESP 18; TEMP 37; O2SAT 95
[2023-01-02] MEDS: Omeprazole 40 MG CAPSULE.DR PO ×2 (05:27→16:52)
[2023-01-02] MEDS: metroNIDAZOLE/NS 500 MG/100 ML PIGGYBACK 100 MG IV ×3 (05:27→21:29)
[2023-01-02 06:40] LABS: Albumin Level 2.3 g/dL (3.5-5.0); Anion Gap 12 (12-20); Blood Urea Nitrogen 46 mg/dL (9-16); Calcium 8.7 mg/dL (8.4-10.2); Carbon Dioxide 17 mmol/L (22-29); Chloride 109 mmol/L (96-108); Creatinine Clr Calc Pharmacy 38.7; Estimated Glomerular Filt Rate 37; Glucose Random 329 mg/dL (60-115); Magnesium 1.8 mg/dL (1.6-2.6); Phosphorus 3.6 mg/dL (2.7-4.5); Potassium 4.5 mmol/L (3.3-5.1); Sodium 133 mmol/L (135-145)
[2023-01-02 07:09] VITALS: BP 160/76; PULSE 79; RESP 18; TEMP 36.1; O2SAT 94
[2023-01-02 07:47] LABS: Glucose, Whole Blood 297 mg/dL (60-115)
--- NOTE | 2023-01-02 08:40 | P.PNGS_ITS ---
Subjective Subjective Date of Service: 01/02/23 Interval history: Patient tolerating diet better without nausea or vomiting. Increased discharge noted from lower incision. Physical Exam Vital Signs: Vital Signs: Last Vital Signs Temp 96.9 F 01/02/23 07:09 Pulse 79 01/02/23 07:09 Resp 18 01/02/23 07:09 BP 160/76 H 01/02/23 07:09 Pulse Ox 94 01/02/23 07:09 O2 Del Method Room Air 01/02/23 07:09 O2 Flow Rate 1 12/31/22 15:15 FiO2 33 12/20/22 18:30 BMI result Body Mass Index 33.4 Const: General: no acute distress Resp: Effort & Inspection: normal respiratory effort GI: Other: radha removed from lower incision, purulent discharge noted. Area of abscess in lower abdomen noted below midline incision, opened and packed with iodoform packing. All other open areas packed as well. Extrem: Other: tender and swollen right hand, ? arthritic. Objective Data Active Medications Albuterol Sulfate (Albuterol Sulfate 90 Mcg 8 Gm Inhaler) 2 puff INHALE RQID PRN PRN Reason: Respiratory Distress Amlodipine Besylate (Amlodipine Besylate 10 Mg Tablet) 10 mg PO DAILY [facility]; Protocol Last Admin: 01/01/23 08:02 Dose: 10 mg Documented By: KELVIN Buprenorphine/Naloxone (Buprenorphine/Naloxone 8/2 Mg Film) 1 film SUBLINGUAL TID [facility] Last Admin: 01/01/23 21:20 Dose: 1 film Documented By: GOMEZ Buspirone HCl (Buspirone Hcl 5 Mg Tablet) 5 mg PO TID [facility] Last Admin: 01/01/23 21:20 Dose: 5 mg Documented By: GOMEZ Carvedilol (Carvedilol 12.5 Mg Tablet) 25 mg PO BID [facility]; Protocol Last Admin: 01/01/23 21:20 Dose: 25 mg Documented By: GOMEZ Dextrose (Dextrose 50 % 25 Gm/50 Ml Syringe) 25 gm IVPUSH Q15M PRN; Protocol PRN Reason: per Hypoglycemia Standing Ord. Dextrose (Dextrose 50 % 25 Gm/50 Ml Syringe) 25 gm IVPUSH Q15M PRN; Protocol PRN Reason: per Hypoglycemia Standing Ord. Dolutegravir Sodium (Dolutegravir Sodium 50 Mg Tablet) 50 mg PO DAILY [facility] Last Admin: 01/01/23 08:15 Dose: 50 mg Documented By: KELVIN Enoxaparin Sodium (Enoxaparin Sodium 30 Mg/0.3 Ml Syringe) 30 mg SUBCUT Q24H [facility] Last Admin: 01/01/23 10:41 Dose: 30 mg Documented By: KELVIN Gabapentin (Gabapentin 600 Mg Tablet) 600 mg PO BID [facility] Last Admin: 01/01/23 21:20 Dose: 600 mg Documented By: GOMEZ Glucose (Glucose Gel 15 Gm Gel..Gram.) 15 gm PO Q15M PRN; Protocol PRN Reason: per Hypoglycemia Standing Ord. Hydromorphone HCl (Hydromorphone Hcl 0.5 Mg/0.5 Ml Syringe) 0.5 mg IVPUSH Q2H PRN; Protocol PRN Reason: Pain, Severe (Pain Scale 7-10) Last Admin: 01/02/23 05:38 Dose: 0.5 mg Documented By: FREEDOM Metronidazole (Flagyl) 500 mg in 100 mls @ 100 mls/hr IV Q8H [facility] Last Infusion: 01/02/23 06:43 Dose: 100 mls/hr Documented By: FREEDOM Levofloxacin (Levaquin) 250 mg in 50 mls @ 50 mls/hr IV Q24H [facility] Last Infusion: 01/01/23 11:48 Dose: 50 mls/hr Documented By: KELVIN Nutrition (Parenteral) (Parenteral Nutrition) 1,560 mls @ 65 mls/hr IV .Q24H [facility]; Protocol Stop: 01/02/23 20:59 Last Admin: 01/01/23 21:14 Dose: 65 mls/hr Documented By: GOMEZ Insulin Human Lispro (Insulin Lispro 100 Unit/Ml 3 Ml Vial) 0 unit SUBCUT QIDACHS [facility]; Protocol Last Admin: 01/01/23 21:19 Dose: 6 unit Documented By: GOMEZ Lamivudine (Lamivudine 150 Mg Tablet) 300 mg PO DAILY [facility] Last Admin: 01/01/23 08:02 Dose: 300 mg Documented By: KELVIN Loratadine (Loratadine 10 Mg Tablet) 10 mg PO DAILY PRN PRN Reason: Allergic Symptoms Last Admin: 12/26/22 05:28 Dose: 10 mg Documented By: SARAHI Omeprazole (Omeprazole 40 Mg Capsule.) 40 mg PO BID@9830,5540 [facility] Last Admin: 01/02/23 05:27 Dose: 40 mg Documented By: FREEDOM Ondansetron HCl (Ondansetron Hcl 4 Mg/2 Ml Vial) 4 mg IVPUSH Q8H PRN PRN Reason: Nausea and Vomiting Last Admin: 12/27/22 11:36 Dose: 4 mg Documented By: KEISHA Pharmacy Consult (Consult Rx Parenteral Nutrition Ordering) 1 each MISCELLANE DAILY PRN PRN Reason: Consult order Sertraline HCl (Sertraline Hcl 25 Mg Tablet) 75 mg PO DAILY [facility] Last Admin: 01/01/23 08:02 Dose: 75 mg Documented By: KELVIN Sodium Chloride (0.9 % Sodium Chloride Flush 3 Ml Syringe) 3 ml IVFLUSH QSHIFT [facility] Last Admin: 01/02/23 01:43 Dose: 3 ml Documented By: FREEDOM Sodium Chloride (0.9 % Sodium Chloride Flush 10 Ml Syringe) 5 ml IVFLUSH TID [facility] Last Admin: 01/01/23 21:47 Dose: 5 ml Documented By: GOMEZ Trazodone HCl (Trazodone Hcl 100 Mg Tablet) 100 mg PO BEDTIME PRN PRN Reason: Sleep Last Admin: 12/31/22 20:57 Dose: 100 mg Documented By: ANTHONY Trolamine Salicylate (Trolamine Salicylate 10 % Cream 85 Gm Tube) 1 appl TOPICAL QID PRN; Protocol PRN Reason: hand pain Last Admin: 01/01/23 17:00 Dose: 1 appl Documented By: GOMEZ Labs 01/01/23 05:59 01/02/23 05:36 Labs: Laboratory Results - last 24 hr 01/01/23 01/01/23 01/01/23 05:59 11:24 16:17 Anion Gap Estim Creat Clear Calc Estimated GFR POC Glucose 267 H 292 H Random Glucose Calcium Phosphorus 3.6 Magnesium 1.7 Albumin 01/01/23 01/02/23 01/02/23 20:18 05:36 07:12 Anion Gap 12 Estim Creat Clear Calc 38.7 Estimated GFR 37 POC Glucose 259 H 297 H Random Glucose 329 H Calcium 8.7 Phosphorus 3.6 Magnesium 1.8 Albumin 2.3 L Procedures Date of Service Date of Service: 01/02/23 Progress Note: A&P Assessment and plan (1) S/P exploratory laparotomy: Status: Acute (2) Small bowel obstruction: Status: Acute Plan Lower incision opened and wounds packed. Lower abdominal abscess also drained and packed. Will reassess later today. Time Spent With Patient Time: Total time managing care of this patient today ____ minutes. Quality Stroke Does the patient have a stroke diagnosis?: No VTE Prior VTE?: No VTE Risk Level:: Surgical - moderate VTE Device Contraindication: N/A - Device Ordered VTE Drug Contraindication: N/A - Med Ordered
[2023-01-02] MEDS: amLODIPine Besylate 10 MG TABLET PO (09:12)
[2023-01-02] MEDS: Sertraline HCL 25 MG TABLET 75 MG PO (09:12)
[2023-01-02] MEDS: lamiVUDine 150 MG TABLET 300 MG PO (09:12)
[2023-01-02] MEDS: Dolutegravir Sodium 50 MG TABLET PO (09:12)
[2023-01-02] MEDS: carvediloL 12.5 MG TABLET 25 MG PO ×2 (09:13→21:07)
[2023-01-02] MEDS: busPIRone HCl 5 MG TABLET PO ×3 (09:13→21:05)
[2023-01-02] MEDS: Gabapentin 600 MG TABLET PO ×2 (09:13→21:05)
[2023-01-02] MEDS: Buprenorphine/Naloxone 8/2 mg FILM 1 FILM SUBLINGUAL ×3 (09:13→21:07)
[2023-01-02] MEDS: Insulin Lispro 100 UNIT/ML 3 ML VIAL SUBCUT ×4 (09:15→21:04)
[2023-01-02] MEDS: 0.9 % Sodium Chloride Flush 10 ML SYRINGE 5 ML IVFLUSH ×3 (09:21→21:06)
--- NOTE | 2023-01-02 10:51 | MHC.CLN ---
F/U VARIABLE INTAKE RANGING FROM 0-50% DIET RX: 2000DM-APPROPRIATE APPEARS TO BE TOLERATING DIET CONTINUE TPN PER MD REVIEWED LABS, COMMUNICATED WITH PHARMACY PT RECEIVING MAX GOAL RATE D15AA5@65 ML PER HOUR PROVIDES 1798 TOTAL KCALS (25 KCALS/KG CMW), 234 G DEXTROSE, 78 G PROTEIN (1.09 G/KG CMW), AND 69 G LIPIDS CONTINUE SAME RATE TODAY REPLETE LYTES NEEDED MONITOR PO INTAKE CLOSELY
[2023-01-02] MEDS: Enoxaparin Sodium 30 MG/0.3 ML SYRINGE SUBCUT (10:58)
[2023-01-02] MEDS: levoFLOXacin/D5W 250 MG/50 ML PIGGYBACK 50 MG IV (10:58)
[2023-01-02 11:21] LABS: Glucose, Whole Blood 331 mg/dL (60-115)
--- NOTE | 2023-01-02 14:44 | P.PNNP_ITS ---
Subjective Subjective Date of Service: 01/02/23 Interval history: Seen and exxamined, events ntoed Physical Exam Vital Signs: Vital Signs: Last Vital Signs Temp 96.9 F 01/02/23 07:09 Pulse 79 01/02/23 07:09 Resp 18 01/02/23 07:09 BP 160/76 H 01/02/23 07:09 Pulse Ox 94 01/02/23 07:09 O2 Del Method Room Air 01/02/23 07:09 O2 Flow Rate 1 12/31/22 15:15 FiO2 33 12/20/22 18:30 BMI result Body Mass Index 33.4 Const: Other: General awake alert x3,in no acute distress. NG with bilious drainage Neck is supple no JVD. CVS regular rate rhythm, Respiratory lungs clear to auscultation, no respiratory distress, no rhonchi. Gastrointestinal abdomen soft, mid abdominal tenderness to palpation, bowel sounds audible, no guarding , no rigidity, colostomy bag with light brown liquid. Extremities no edema. Neuro nonfocal ,speech clear. Skin no rash appropriate affect General: cooperative, comfortable, no acute distress, well developed and alert Nutritional Appearance: well nourished and obese Orientation/consciousness: patient oriented x3 Limitations: no limitations and No language barrier HEENT: Other: NGT in place, scant bilious output Eyes: Sclerae: sclerae normal EOM: EOMs intact bilaterally Neck: Neck: Yes normal visual inspection and Yes supple Resp: Effort & Inspection: normal respiratory effort, no audible wheezes, no cough, no respiratory distress and no stridor Cardio: Jugular venous distension: no JVD Palpation: no palpable S3 Hea rt sounds: no murmurs and no rubs GI: Other: incision continues with purulent output from superior and inferior aspect; no significant erythema ostomy with liquid output Inspection: Yes normal to inspection, No distended, Yes incision (clean) and Yes other (ostomy bag in place) Palpation (GI): Soft to palpation, Tenderness to palpation present (GI) (mild incisional) in the LLQ and in the RLQ, no guarding, not rigid and No Rebound tenderness present Percussion: Yes normal to percussion and Yes tympanic to percussion Auscultation: normal bowel sounds Rectal Exam - Male: Yes deferred Skin: General skin exam: no rashes or lesions noted and dry skin Rashes: no rashes Neuro: General: patient oriented x3, moves all extremities and no focal motor deficits Motor exam (neuro): No Asterixis during motor activity present Extrem: General: Yes normal to inspection, Yes full ROM and Yes no clubbing, cyanosis or edema Psych: Appearance: grossly normal Objective Data Labs 01/01/23 05:59 01/02/23 05:36 Labs: Laboratory Results - last 24 hr 01/01/23 01/01/23 01/02/23 16:17 20:18 05:36 Sodium 133 L Potassium 4.5 Chloride 109 H Carbon Dioxide 17 L Anion Gap 12 BUN 46 H Creatinine 1.82 H Estim Creat Clear Calc 38.7 Estimated GFR 37 POC Glucose 292 H 259 H Random Glucose 329 H Calcium 8.7 Phosphorus 3.6 Magnesium 1.8 Albumin 2.3 L 01/02/23 01/02/23 07:12 11:11 Sodium Potassium Chloride Carbon Dioxide Anion Gap BUN Creatinine Estim Creat Clear Calc Estimated GFR POC Glucose 297 H 331 H Random Glucose Calcium Phosphorus Magnesium Albumin Microbiology Microbiology Results: Microbiology 12/27/22 07:55 Incision Gram Stain - Final 12/27/22 07:55 Incision Routine Culture - Final Enterobacter cloacae complex Pseudomonas aeruginosa Viridans streptococcus group Procedures Date of Service Date of Service: 01/02/23 Assessment & Plan Assessment and plan (1) CKD (chronic kidney disease): Status: Acute (2) Acute kidney injury superimposed on CKD: Status: Acute (3) Severe anemia: Status: Acute Plan 1. MARY JO: w/u in progress; multfact ATN vs other--remote possibility of PPI assoc AIN 2. DM 3. HIV 4. S/p surg REC: check urine sttudies: FENa and urine eos; consider IV albumin if UOP decr; avoid NToxins; control BS Will follow--if SCr incr further then will get renal U/S as well Time Spent With Patient Time: Total time managing care of this patient today ____ minutes. Progress Note: Quality Stroke Does the patient have a stroke diagnosis?: No
[2023-01-02 15:03] VITALS: BP 125/58; PULSE 84; RESP 18; TEMP 36.7; O2SAT 95
[2023-01-02 16:08] LABS: Glucose, Whole Blood 324 mg/dL (60-115)
[2023-01-02 19:02] VITALS: BP 132/65; PULSE 76; RESP 20; TEMP 36.5; O2SAT 95
[2023-01-02 20:43] LABS: Glucose, Whole Blood 307 mg/dL (60-115)
[2023-01-02] MEDS: Parenteral Nutrition 1,560 ML 65 ML IV (21:24)
[2023-01-02] MEDS: Trolamine Salicylate 10 % Cream 85 GM TUBE 1 APPL TOPICAL (21:28)
[2023-01-03 03:21] VITALS: BP 145/66; PULSE 71; RESP 18; TEMP 37.2; O2SAT 95
[2023-01-03] MEDS: HYDROmorphone HCl 0.5 MG/0.5 ML SYRINGE IVPUSH ×4 (03:22→21:27)
[2023-01-03] MEDS: metroNIDAZOLE/NS 500 MG/100 ML PIGGYBACK 100 MG IV ×3 (05:38→21:32)
[2023-01-03 06:07] LABS: Albumin Level 2.2 g/dL (3.5-5.0); Anion Gap 12 (12-20); Blood Urea Nitrogen 45 mg/dL (9-16); Calcium 8.7 mg/dL (8.4-10.2); Carbon Dioxide 15 mmol/L (22-29); Chloride 110 mmol/L (96-108); Creatinine Clr Calc Pharmacy 41.7; Estimated Glomerular Filt Rate 40; Glucose Random 283 mg/dL (60-115); Magnesium 1.8 mg/dL (1.6-2.6); Phosphorus 3.7 mg/dL (2.7-4.5); Potassium 4.3 mmol/L (3.3-5.1); Sodium 133 mmol/L (135-145)
[2023-01-03] MEDS: Omeprazole 40 MG CAPSULE.DR PO ×2 (06:20→16:47)
[2023-01-03 06:46] LABS: Appearance Urine Clear; Color Urine Yellow; Glucose Urine UA 100 mg/dL (Negative); Leukocyte Esterase Urine Negative (Negative); Nitrite Urine Negative (Negative); PH 5.5 (5.0-9.0); Specific Gravity - Urine 1.015 (1.005-1.025); UMIC TRIGGER UA YES; Urine Blood Trace (Negative); Urine Ketones Negative (Negative); Urine Protein 30 (1+) mg/dL (Neg-Trace)
[2023-01-03 06:51] LABS: Bacteria Urine None Seen (None Seen); RBC Urine 0-2 /HPF (0-2); Squamous Epithelial Cell Urine 0-2 /HPF (0-2); WBC Urine 0-5 /HPF (0-5)
[2023-01-03 06:54] LABS: Creatinine Urine 47.46 mg/dL
[2023-01-03 07:19] VITALS: BP 152/71; PULSE 73; RESP 17; TEMP 36; O2SAT 95
[2023-01-03 07:21] LABS: Glucose, Whole Blood 303 mg/dL (60-115)
--- NOTE | 2023-01-03 07:36 | P.PNGS_ITS ---
Subjective Subjective Date of Service: 01/03/23 Interval history: Patient complaining of bilateral hand pain with swelling. Denies previous episodes of similar occurrence. Not much appetite currently. Physical Exam Vital Signs: Vital Signs: Last Vital Signs Temp 96.8 F 01/03/23 07:19 Pulse 73 01/03/23 07:19 Resp 17 01/03/23 07:19 BP 152/71 H 01/03/23 07:19 Pulse Ox 95 01/03/23 07:19 O2 Del Method Room Air 01/03/23 07:19 O2 Flow Rate 1 12/31/22 15:15 FiO2 33 12/20/22 18:30 BMI result Body Mass Index 33.4 Const: General: tired appearing Nutritional Appearance: obese Orientation/consciousness: patient oriented x3 Resp: Effort & Inspection: normal respiratory effort GI: Other: Dressings changed. Small amount of purulence discharge on incision mainly from the lower incision. No change in chronic skin lower abdomen. Erythema surrounding this is much improved. Clean dressings applied. Neuro: General: patient oriented x3 Extrem: Other: Red swollen hands bilaterally, painful to passive range of motion. Objective Data Active Medications Albuterol Sulfate (Albuterol Sulfate 90 Mcg 8 Gm Inhaler) 2 puff INHALE RQID PRN PRN Reason: Respiratory Distress Amlodipine Besylate (Amlodipine Besylate 10 Mg Tablet) 10 mg PO DAILY REPLACED BY [facility]; Protocol Last Admin: 01/02/23 09:12 Dose: 10 mg Documented By: SOY Buprenorphine/Naloxone (Buprenorphine/Naloxone 8/2 Mg Film) 1 film SUBLINGUAL TID REPLACED BY [facility] Last Admin: 01/02/23 21:07 Dose: 1 film Documented By: GOMEZ Buspirone HCl (Buspirone Hcl 5 Mg Tablet) 5 mg PO TID [facility]PL[facility] BY [facility] Last Admin: 01/02/23 21:05 Dose: 5 mg Documented By: GOMEZ Carvedilol (Carvedilol 12.5 Mg Tablet) 25 mg PO BID [facility]; Protocol Last Admin: 01/02/23 21:07 Dose: 25 mg Documented By: GOMEZ Dextrose (Dextrose 50 % 25 Gm/50 Ml Syringe) 25 gm IVPUSH Q15M PRN; Protocol PRN Reason: per Hypoglycemia Standing Ord. Dextrose (Dextrose 50 % 25 Gm/50 Ml Syringe) 25 gm IVPUSH Q15M PRN; Protocol PRN Reason: per Hypoglycemia Standing Ord. Dolutegravir Sodium (Dolutegravir Sodium 50 Mg Tablet) 50 mg PO DAILY [facility] Last Admin: 01/02/23 09:12 Dose: 50 mg Documented By: SOY Enoxaparin Sodium (Enoxaparin Sodium 30 Mg/0.3 Ml Syringe) 30 mg SUBCUT Q24H REPLACED [facility] Last Admin: 01/02/23 10:58 Dose: 30 mg Documented By: SOY Gabapentin (Gabapentin 600 Mg Tablet) 600 mg PO BID [facility]PL[facility] Last Admin: 01/02/23 21:05 Dose: 600 mg Documented By: GOMEZ Glucose (Glucose Gel 15 Gm Gel..Gram.) 15 gm PO Q15M PRN; Protocol PRN Reason: per Hypoglycemia Standing Ord. Hydromorphone HCl (Hydromorphone Hcl 0.5 Mg/0.5 Ml Syringe) 0.5 mg IVPUSH Q2H PRN; Protocol PRN Reason: Pain, Severe (Pain Scale 7-10) Last Admin: 01/03/23 03:22 Dose: 0.5 mg Documented By: BENITA Metronidazole (Flagyl) 500 mg in 100 mls @ 100 mls/hr IV Q8H REPLACED [facility] Last Infusion: 01/03/23 06:39 Dose: 0 mls/hr Documented By: BENITA Levofloxacin (Levaquin) 250 mg in 50 mls @ 50 mls/hr IV Q24H REPLACED BY [facility] Last Infusion: 01/02/23 12:44 Dose: 0 mls/hr Documented By: SOY Nutrition (Parenteral) (Parenteral Nutrition) 1,560 mls @ 65 mls/hr IV .Q24H REPLACED BY [facility]; Protocol Stop: 01/03/23 20:59 Last Admin: 01/02/23 21:24 Dose: 65 mls/hr Documented By: GOMEZ Insulin Human Lispro (Insulin Lispro 100 Unit/Ml 3 Ml Vial) 0 unit SUBCUT QIDACHS REPLACED BY [facility]; Protocol Last Admin: 01/02/23 21:04 Dose: 8 unit Documented By: GOMEZ Lamivudine (Lamivudine 150 Mg Tablet) 300 mg PO DAILY [facility]PL[facility] Last Admin: 01/02/23 09:12 Dose: 300 mg Documented By: SOY Loratadine (Loratadine 10 Mg Tablet) 10 mg PO DAILY PRN PRN Reason: Allergic Symptoms Last Admin: 12/26/22 05:28 Dose: 10 mg Documented By: SARAHI Omeprazole (Omeprazole 40 Mg Negrita.) 40 mg PO BID@0630,1630 REPLACED BY [facility] Last Admin: 01/03/23 06:20 Dose: 40 mg Documented By: BENITA Ondansetron HCl (Ondansetron Hcl 4 Mg/2 Ml Vial) 4 mg IVPUSH Q8H PRN PRN Reason: Nausea and Vomiting Last Admin: 12/27/22 11:36 Dose: 4 mg Documented By: KEISHA Pharmacy Consult (Consult Rx Parenteral Nutrition Ordering) 1 each MISCELLANE DAILY PRN PRN Reason: Consult order Sertraline HCl (Sertraline Hcl 25 Mg Tablet) 75 mg PO DAILY REPLACED BY [facility] Last Admin: 01/02/23 09:12 Dose: 75 mg Documented By: SOY Sodium Chloride (0.9 % Sodium Chloride Flush 3 Ml Syringe) 3 ml IVFLUSH QSHIFT REPLACED BY [facility] Last Admin: 01/02/23 23:42 Dose: Not Given Documented By: BENITA Non-Admin Reason: picc line only Sodium Chloride (0.9 % Sodium Chloride Flush 10 Ml Syringe) 5 ml IVFLUSH TID REPLACED BY [facility] Last Admin: 01/02/23 21:06 Dose: 5 ml Documented By: GOMEZ Trazodone HCl (Trazodone Hcl 100 Mg Tablet) 100 mg PO BEDTIME PRN PRN Reason: Sleep Last Admin: 12/31/22 20:57 Dose: 100 mg Documented By: ANTHONY Trolamine Salicylate (Trolamine Salicylate 10 % Cream 85 Gm Tube) 1 appl TOPICAL QID PRN; Protocol PRN Reason: hand pain Last Admin: 01/02/23 21:28 Dose: 1 appl Documented By: GOMEZ Labs 01/01/23 05:59 01/03/23 05:08 Labs: Laboratory Results - last 24 hr 01/02/23 01/02/23 01/02/23 07:12 11:11 15:56 Anion Gap Estim Creat Clear Calc Estimated GFR POC Glucose 297 H 331 H 324 H Random Glucose Calcium Phosphorus Magnesium Albumin Urine Color Urine Appearance Urine pH Ur Specific [place] Urine Protein Urine Glucose (UA) Urine Ketones Urine Blood Urine Nitrite Ur Leukocyte Esterase Urine RBC Urine WBC Ur Squamous Epith Cells Urine Bacteria Hyaline Casts Ur Random Sodium Urine Creatinine 01/02/23 01/03/23 01/03/23 20:35 05:08 06:30 Anion Gap 12 Estim Creat Clear Calc 41.7 Estimated GFR 40 POC Glucose 307 H Random Glucose 283 H Calcium 8.7 Phosphorus 3.7 Magnesium 1.8 Albumin 2.2 L Urine Color Yellow Urine Appearance Clear Urine pH 5.5 Ur Specific [place] 1.015 Urine Protein 30 (1+) H Urine Glucose (UA) 100 H Urine Ketones Negative Urine Blood Trace H Urine Nitrite Negative Ur Leukocyte Esterase Negative Urine RBC 0-2 Urine WBC 0-5 Ur Squamous Epith Cells 0-2 Urine Bacteria None Seen Hyaline Casts 3-5 Ur Random Sodium Urine Creatinine 01/03/23 01/03/23 06:30 07:17 Anion Gap Estim Creat Clear Calc Estimated GFR POC Glucose 303 H Random Glucose Calcium Phosphorus Magnesium Albumin Urine Color Urine Appearance Urine pH Ur Specific [place] Urine Protein Urine Glucose (UA) Urine Ketones Urine Blood Urine Nitrite Ur Leukocyte Esterase Urine RBC Urine WBC Ur Squamous Epith Cells Urine Bacteria Hyaline Casts Ur Random Sodium 39.0 Urine Creatinine 47.46 Procedures Date of Service Date of Service: 01/03/23 Progress Note: A&P Assessment and plan (1) S/P exploratory laparotomy: Status: Acute (2) Small bowel obstruction: Status: Acute Plan Patient with superficial wound infection, incision now open and draining. Overall erythema is improved. Will recheck WBC this morning. Continue local wound care. Bilateral upper extremity/hand erythema and pain, appears to be arthritic. Will consult hospitalist to review. Continue TPN Time Spent With Patient Time: Total time managing care of this patient today ____ minutes. Quality Stroke Does the patient have a stroke diagnosis?: No VTE Prior VTE?: No VTE Risk Level:: Surgical - moderate VTE Device Contraindication: N/A - Device Ordered VTE Drug Contraindication: N/A - Med Ordered
[2023-01-03] MEDS: carvediloL 12.5 MG TABLET 25 MG PO ×2 (09:19→20:19)
[2023-01-03] MEDS: Gabapentin 600 MG TABLET PO ×2 (09:19→20:20)
[2023-01-03] MEDS: amLODIPine Besylate 10 MG TABLET PO (09:19)
[2023-01-03] MEDS: lamiVUDine 150 MG TABLET 300 MG PO (09:19)
[2023-01-03] MEDS: Dolutegravir Sodium 50 MG TABLET PO (09:19)
[2023-01-03] MEDS: busPIRone HCl 5 MG TABLET PO ×3 (09:19→20:19)
[2023-01-03] MEDS: Buprenorphine/Naloxone 8/2 mg FILM 1 FILM SUBLINGUAL ×3 (09:20→20:20)
[2023-01-03] MEDS: Sertraline HCL 25 MG TABLET 75 MG PO (09:20)
[2023-01-03] MEDS: Enoxaparin Sodium 30 MG/0.3 ML SYRINGE SUBCUT (09:20)
[2023-01-03] MEDS: 0.9 % Sodium Chloride Flush 10 ML SYRINGE 5 ML IVFLUSH ×3 (09:20→22:38)
[2023-01-03] MEDS: Insulin Lispro 100 UNIT/ML 3 ML VIAL SUBCUT ×6 (09:21→21:27)
--- NOTE | 2023-01-03 09:24 | P.CDIM_ITS ---
PROVIDER RESPONSE TEXT: To clarify, the appropriate diagnosis supported by the clinical indicators: Incision and drainage of skin QUERY TEXT: PHYSICIAN'S DOCUMENTATION REQUEST Date of Query: 01/02/2023 09:26 AM EDT Patient Name: Dhiraj Huntley Admit Date: 12/18/2022 Dear Jacky Vo, A review of the medical record indicates additional documentation may be needed. Please review below and update the documentation accordingly. Clinical Indicators: Per General Surgery Progress Note 01/02/23: Lower abdominal abscess also drained and packed Based on the above, could you clarify the appropriate procedure and depth of the procedure that suppo rts the above abnormalities and additional evaluation, monitoring, and/or treatment rendered: Incision and drainage of skin Incision and drainage of subcutaneous tissue Incision and drainage of muscle Sharp excision and debridement of abscess please specify depth Other (explain)Clinically unable to determine (explain)Thank you, Nhung Lozano RN Use of terms such as suspected, likely, concern for, or probable (associated with a specific diagnosi s that is being evaluated, monitored, or treated as if it exists) are acceptable and can be coded in the inpatient se tting, when documented at the time of discharge. Please use your independent medical judgment in providing your response. THIS QUERY IS PART OF THE PERMANENT MEDICAL RECORD
[2023-01-03 09:26] LABS: EOS Counted 0 CELLS; EOS QC POS YES; EOS Stain Quality OK YES; WBC, Counted 10 CELLS
[2023-01-03] MEDS: Trolamine Salicylate 10 % Cream 85 GM TUBE 1 APPL TOPICAL (09:32)
[2023-01-03] MEDS: levoFLOXacin/D5W 250 MG/50 ML PIGGYBACK 50 MG IV (11:00)
[2023-01-03 11:24] LABS: Glucose, Whole Blood 355 mg/dL (60-115)
--- NOTE | 2023-01-03 11:40 | MHC.CM.PN ---
PT pranav recommends [facility]. Patient is prescribed Suboxone. A referral has been sent to [facility]. DP [facility] via [facility].
--- NOTE | 2023-01-03 12:18 | MHC.CLN ---
F/U VARIABLE INTAKE. ATE 1 PANCAKE AT [facility] THIS MORNING. DIET RX: 2000DM-APPROPRIATE. APPEARS TO BE TOLERATING DIET. CONTINUE TPN PER MD. REVIEWED LABS, COMMUNICATED WITH PHARMACY. PT RECEIVING MAX GOAL RATE D15AA5@65 ML PER HOUR WITH 69 G LIPIDS. PROVIDES 1798 TOTAL KCALS (25 KCALS/KG CMW), 234 G DEXTROSE, 78 G PROTEIN (1.09 G/KG CMW), AND 69 G LIPIDS. CONTINUE SAME RATE TODAY. REPLETE LYTES NEEDED. MONITOR PO INTAKE CLOSELY.
--- NOTE | 2023-01-03 15:26 | PM.EVENT ---
Event Note Date of Service: 01/03/23 Event Note: S: 72-year-old man admitted by general surgery on 12/18/2022 for SBO and is status post exploratory laparotomy, extensive lysis of adhesions and small-bowel resection. He now has complaints of bilateral hand edema has started yesterday. He reported that he had been getting injections in his hands for osteoarthritis every 3 months starting approximately 9 months ago at [facility]. He was unable to identify what injection he was getting. O: Alert and oriented LSCTA soft abd erythema and mild edema to hands, joints, wrist AP: Bilateral hand edema pain management for now would suggest talking with ortho for possible local steroid injection as oral steroids would be contraindicated during patients acute recovery phase Diabetes mellitus type 2 with hyperglycemia Continue sliding scale Mealtime insulin added Time Spent With Patient Time: Total time managing care of this patient today ____ minutes.
[2023-01-03 16:00] VITALS: BP 141/65; PULSE 76; RESP 20; TEMP 36.4; O2SAT 96
--- NOTE | 2023-01-03 16:23 | PM.PNNEP ---
Subjective Subjective Date of Service: 01/03/23 Interval history: Seen and exxamined, events ntoed Physical Exam Vital Signs: Vital Signs: Last Vital Signs Temp 97.5 F 01/03/23 16:00 Pulse 76 01/03/23 16:00 Resp 20 01/03/23 16:00 BP 141/65 H 01/03/23 16:00 Pulse Ox 96 01/03/23 16:00 O2 Del Method Room Air 01/03/23 07:19 O2 Flow Rate 1 12/31/22 15:15 FiO2 33 12/20/22 18:30 BMI result Body Mass Index 33.4 Const: Other: General awake alert x3,in no acute distress. NG with bilious drainage Neck is supple no JVD. CVS regular rate rhythm, Respiratory lungs clear to auscultation, no respiratory distress, no rhonchi. Gastrointestinal abdomen soft, mid abdominal tenderness to palpation, bowel sounds audible, no guarding , no rigidity, colostomy bag with light brown liquid. Extremities no edema. Neuro nonfocal ,speech clear. Skin no rash appropriate affect General: cooperative, comfortable, no acute distress, well developed and alert Nutritional Appearance: well nourished and obese Orientation/consciousness: patient oriented x3 Limitations: no limitations and No language barrier HEENT: Other: NGT in place, scant bilious output Eyes: Sclerae: sclerae normal EOM: EOMs intact bilaterally Neck: Neck: Yes normal visual inspection and Yes supple Resp: Effort & Inspection: normal respiratory effort, no audible wheezes, no cough, no respiratory distress and no stridor Cardio: Jugular venous distension: no JVD Palpation: no palpable S3 Heart sounds: no murmurs and no rubs GI: Other: incision continues with purulent output from superior and inferior aspect; no significant erythema ostomy with liquid output Inspection: Yes normal to inspection, No distended, Yes incision (clean) and Yes other (ostomy bag in place) Palpation (GI): Soft to palpation, Tenderness to palpation present (GI) (mild incisional) in the LLQ and in the RLQ, no guarding, not rigid and No Rebound tenderness present Percussion: Yes normal to percussion and Yes tympanic to percussion Auscultation: normal bowel sounds Rectal Exam - Male: Yes deferred Skin: General skin exam: no rashes or lesions noted and dry skin Rashes: no rashes Neuro: General: patient oriented x3, moves all extremities and no focal motor deficits Motor exam (neuro): No Asterixis during motor activity present Extrem: General: Yes normal to inspection, Yes full ROM and Yes no clubbing, cyanosis or edema Psych: Appearance: grossly normal Objective Data Labs 01/01/23 05:59 01/03/23 05:08 Labs: Laboratory Results - last 24 hr 01/02/23 01/03/23 01/03/23 20:35 05:08 06:30 Sodium 133 L Potassium 4.3 Chloride 110 H Carbon Dioxide 15 L Anion Gap 12 BUN 45 H Creatinine 1.69 H Estim Creat Clear Calc 41.7 Estimated GFR 40 POC Glucose 307 H Random Glucose 283 H Calcium 8.7 Phosphorus 3.7 Magnesium 1.8 Albumin 2.2 L Urine Color Yellow Urine Appearance Clear Urine pH 5.5 Ur Specific [place] 1.015 Urine Protein 30 (1+) H Urine Glucose (UA) 100 H Urine Ketones Negative Urine Blood Trace H Urine Nitrite Negative Ur Leukocyte Esterase Negative Urine RBC 0-2 Urine WBC 0-5 Ur Squamous Epith Cells 0-2 Urine Bacteria None Seen Hyaline Casts 3-5 Urine Eosinophils % 0.0 Ur Random Sodium Urine Creatinine 01/03/23 01/03/23 01/03/23 06:30 07:17 11:11 Sodium Potassium Chloride Carbon Dioxide Anion Gap BUN Creatinine Estim Creat Clear Calc Estimated GFR POC Glucose 303 H 355 H* Random Glucose Calcium Phosphorus Magnesium Albumin Urine Color Urine Appearance Urine pH Ur Specific [place] Urine Protein Urine Glucose (UA) Urine Ketones Urine Blood Urine Nitrite Ur Leukocyte Esterase Urine RBC Urine WBC Ur Squamous Epith Cells Urine Bacteria Hyaline Casts Urine Eosinophils % Ur Random Sodium 39.0 Urine Creatinine 47.46 Microbiology Microbiology Results: Microbiology 12/27/22 07:55 Incision Gram Stain - Final 12/27/22 07:55 Incision Routine Culture - Final Enterobacter cloacae complex Pseudomonas aeruginosa Viridans streptococcus group Procedures Date of Service Date of Service: 01/03/23 Assessment & Plan Assessment and plan (1) CKD (chronic kidney disease): Status: Acute (2) Acute kidney injury superimposed on CKD: Status: Acute (3) Severe anemia: Status: Acute Plan 1. MARY JO: w/u in progress; SCr decr grad; multfact ATN sugg bu FENa > 1% vs other--remote possibility of PPI assoc AIN; 2. DM 3. HIV 4. S/p surg 5. NAGMA REC: cont ot track UOP and renal func; if HCO3 decr furhter then replace HCO3 IV--ask pharm to incr base in TPN; avoid NToxins; control BS Will follow--if SCr incr further then will get renal U/S as well Time Spent With Patient Time: Total time managing care of this patient today ____ minutes. Progress Note: Quality Stroke Does the patient have a stroke diagnosis?: No
[2023-01-03 16:24] LABS: Glucose, Whole Blood 269 mg/dL (60-115)
[2023-01-03] MEDS: 0.9 % Sodium Chloride Flush 3 ML SYRINGE IVFLUSH ×2 (16:47→20:20)
[2023-01-03 20:00] VITALS: PULSE 79; TEMP 36.6; O2SAT 98
[2023-01-03] MEDS: traZODone HCL 100 MG TABLET PO (20:19)
[2023-01-03 20:59] LABS: Glucose, Whole Blood 244 mg/dL (60-115)
[2023-01-03] MEDS: Parenteral Nutrition 1,560 ML 65 ML IV (21:26)
[2023-01-04] MEDS: HYDROmorphone HCl 0.5 MG/0.5 ML SYRINGE IVPUSH ×6 (00:54→21:28)
[2023-01-04 01:52] VITALS: RESP 16
[2023-01-04 03:38] VITALS: BP 120/80; PULSE 72; RESP 20; TEMP 36.5; O2SAT 96
[2023-01-04] MEDS: metroNIDAZOLE/NS 500 MG/100 ML PIGGYBACK 100 MG IV ×3 (05:30→21:06)
[2023-01-04] MEDS: Omeprazole 40 MG CAPSULE.DR PO ×2 (06:31→16:52)
[2023-01-04 06:53] VITALS: RESP 16
[2023-01-04 06:54] LABS: Hematocrit 28.5 % (42.0-52.0); Hemoglobin 9.5 g/dl (14.0-18.0); Mean Corpuscular HGB Conc 33.3 g/dl (31.0-36.0); Mean Corpuscular Hemoglobin 34.5 pg (27.0-33.0); Mean Corpuscular Volume 103.6 fL (80.0-98.0); Mean Platelet Volume 11.7 fL (9.4-12.4); NRBC Pct Auto 0.2 /100WBC (0.0-0.2); Platelet Count 615 X10*3/uL (160-400); Red Blood Count 2.75 X10*6/uL (4.60-5.80); Red Cell Distribution Width 13.9 % (11.0-16.0); White Blood Count 22.2 X10*3/uL (4.8-10.8)
[2023-01-04 07:20] LABS: Glucose, Whole Blood 227 mg/dL (60-115)
[2023-01-04 07:29] VITALS: BP 146/67; PULSE 72; RESP 16; TEMP 36.4; O2SAT 94
[2023-01-04 07:30] LABS: Anion Gap 13 (12-20); Blood Urea Nitrogen 44 mg/dL (9-16); Calcium 8.8 mg/dL (8.4-10.2); Carbon Dioxide 14 mmol/L (22-29); Chloride 110 mmol/L (96-108); Estimated Glomerular Filt Rate 39; Glucose Random 253 mg/dL (60-115); Phosphorus 3.9 mg/dL (2.7-4.5); Potassium 4.4 mmol/L (3.3-5.1); Sodium 133 mmol/L (135-145)
[2023-01-04] MEDS: Insulin Lispro 100 UNIT/ML 3 ML VIAL SUBCUT ×8 (08:17→21:05)
[2023-01-04] MEDS: lamiVUDine 150 MG TABLET 300 MG PO (08:17)
[2023-01-04] MEDS: carvediloL 12.5 MG TABLET 25 MG PO ×2 (08:17→21:04)
[2023-01-04] MEDS: Buprenorphine/Naloxone 8/2 mg FILM 1 FILM SUBLINGUAL ×3 (08:18→21:04)
[2023-01-04] MEDS: 0.9 % Sodium Chloride Flush 10 ML SYRINGE 5 ML IVFLUSH ×3 (08:18→21:07)
[2023-01-04] MEDS: Sertraline HCL 25 MG TABLET 75 MG PO (08:18)
[2023-01-04] MEDS: Dolutegravir Sodium 50 MG TABLET PO (08:18)
[2023-01-04] MEDS: amLODIPine Besylate 10 MG TABLET PO (08:18)
[2023-01-04] MEDS: Gabapentin 600 MG TABLET PO ×2 (08:18→21:03)
[2023-01-04] MEDS: busPIRone HCl 5 MG TABLET PO ×3 (08:18→21:03)
--- NOTE | 2023-01-04 08:25 | PM.PNGS ---
Subjective Subjective Date of Service: 01/04/23 Interval history: Denies abdominal pain, reports dressing was changed earlier this morning. Complains mainly of bilateral hand pain; unable to eat due to the hand pain. Physical Exam Vital Signs: Vital Signs: Last Vital Signs Temp 97.6 F 01/04/23 07:29 Pulse 72 01/04/23 07:29 Resp 16 01/04/23 07:29 BP 146/67 H 01/04/23 07:29 Pulse Ox 94 01/04/23 07:29 O2 Del Method Room Air 01/04/23 07:29 O2 Flow Rate 1 12/31/22 15:15 FiO2 33 12/20/22 18:30 BMI result Body Mass Index 33.4 Const: General: no acute distress Nutritional Appearance: obese Orientation/consciousness: patient oriented x3 Resp: Effort & Inspection: normal respiratory effort, no audible wheezes, no cough and no respiratory distress GI: Other: Dressings clean, dry, and intact, erythema continues to improve. Neuro: General: patient oriented x3 Extrem: Other: Bilateral hands appear less red and swollen today, difficulty with range of motion however. Objective Data Active Medications Albuterol Sulfate (Albuterol Sulfate 90 Mcg 8 Gm Inhaler) 2 puff INHALE RQID PRN PRN Reason: Respiratory Distress Amlodipine Besylate (Amlodipine Besylate 10 Mg Tablet) 10 mg PO DAILY [facility]; Protocol Last Admin: 01/04/23 08:18 Dose: 10 mg Documented By: BRINA Buprenorphine/Naloxone (Buprenorphine/Naloxone 8/2 Mg Film) 1 film SUBLINGUAL TID [facility] Last Admin: 01/04/23 08:18 Dose: 1 film Documented By: BRINA Buspirone HCl (Buspirone Hcl 5 Mg Tablet) 5 mg PO TID [facility] Last Admin: 01/04/23 08:18 Dose: 5 mg Documented By: BRINA Carvedilol (Carvedilol 12.5 Mg Tablet) 25 mg PO BID [facility]; Protocol Last Admin: 01/04/23 08:17 Dose: 25 mg Documented By: BRINA Dextrose (Dextrose 50 % 25 Gm/50 Ml Syringe) 25 gm IVPUSH Q15M PRN; Protocol PRN Reason: per Hypoglycemia Standing Ord. Dextrose (Dextrose 50 % 25 Gm/50 Ml Syringe) 25 gm IVPUSH Q15M PRN; Protocol PRN Reason: per Hypoglycemia Standing Ord. Dolutegravir Sodium (Dolutegravir Sodium 50 Mg Tablet) 50 mg PO DAILY [facility] Last Admin: 01/04/23 08:18 Dose: 50 mg Documented By: BRINA Enoxaparin Sodium (Enoxaparin Sodium 30 Mg/0.3 Ml Syringe) 30 mg SUBCUT Q24H [facility] Last Admin: 01/03/23 09:20 Dose: 30 mg Documented By: SOY Gabapentin (Gabapentin 600 Mg Tablet) 600 mg PO BID [facility] Last Admin: 01/04/23 08:18 Dose: 600 mg Documented By: BRINA Glucose (Glucose Gel 15 Gm Gel..Gram.) 15 gm PO Q15M PRN; Protocol PRN Reason: per Hypoglycemia Standing Ord. Hydromorphone HCl (Hydromorphone Hcl 0.5 Mg/0.5 Ml Syringe) 0.5 mg IVPUSH Q2H PRN; Protocol PRN Reason: Pain, Severe (Pain Scale 7-10) Last Admin: 01/04/23 08:24 Dose: 0.5 mg Documented By: BRINA Metronidazole (Flagyl) 500 mg in 100 mls @ 100 mls/hr IV Q8H [facility] Last Infusion: 01/04/23 06:56 Dose: Infused Documented By: WAYLON Levofloxacin (Levaquin) 250 mg in 50 mls @ 50 mls/hr IV Q24H [facility] Last Infusion: 01/03/23 12:00 Dose: Infused Documented By: SOY Nutrition (Parenteral) (Parenteral Nutrition) 1,560 mls @ 65 mls/hr IV .Q24H [facility]; Protocol Stop: 01/04/23 20:59 Last Admin: 01/03/23 21:26 Dose: 65 mls/hr Documented By: WAYLON Insulin Human Lispro (Insulin Lispro 100 Unit/Ml 3 Ml Vial) 0 unit SUBCUT QIDACHS [facility]; Protocol Last Admin: 01/04/23 08:17 Dose: 2 unit Documented By: BRINA Insulin Human Lispro (Insulin Lispro 100 Unit/Ml 3 Ml Vial) 5 unit SUBCUT QIDACHS [facility] Last Admin: 01/04/23 08:17 Dose: 5 unit Documented By: BRINA Lamivudine (Lamivudine 150 Mg Tablet) 300 mg PO DAILY [facility] Last Admin: 01/04/23 08:17 Dose: 300 mg Documented By: BRINA Loratadine (Loratadine 10 Mg Tablet) 10 mg PO DAILY PRN PRN Reason: Allergic Symptoms Last Admin: 12/26/22 05:28 Dose: 10 mg Documented By: SARAHI Omeprazole (Omeprazole 40 Mg Capsule.Dr) 40 mg PO BID@0630,1630 [facility] Last Admin: 01/04/23 06:31 Dose: 40 mg Documented By: WAYLON Ondansetron HCl (Ondansetron Hcl 4 Mg/2 Ml Vial) 4 mg IVPUSH Q8H PRN PRN Reason: Nausea and Vomiting Last Admin: 12/27/22 11:36 Dose: 4 mg Documented By: KEISHA Oxycodone HCl (Oxycodone Hcl Immed Release 5 Mg Tablet) 5 mg PO Q4H PRN PRN Reason: Pain, Mild (Pain Scale 1-3) Pharmacy Consult (Consult Rx Parenteral Nutrition Ordering) 1 each MISCELLANE DAILY PRN PRN Reason: Consult order Sertraline HCl (Sertraline Hcl 25 Mg Tablet) 75 mg PO DAILY [facility] Last Admin: 01/04/23 08:18 Dose: 75 mg Documented By: BRINA Sodium Chloride (0.9 % Sodium Chloride Flush 3 Ml Syringe) 3 ml IVFLUSH QSHIFT [facility] Last Admin: 01/04/23 08:19 Dose: Not Given Documented By: BRINA Non-Admin Reason: No Access Sodium Chloride (0.9 % Sodium Chloride Flush 10 Ml Syringe) 5 ml IVFLUSH TID [facility] Last Admin: 01/04/23 08:18 Dose: 5 ml Documented By: BRINA Trazodone HCl (Trazodone Hcl 100 Mg Tablet) 100 mg PO BEDTIME PRN PRN Reason: Sleep Last Admin: 01/03/23 20:19 Dose: 100 mg Documented By: WAYLON Trolamine Salicylate (Trolamine Salicylate 10 % Cream 85 Gm Tube) 1 appl TOPICAL QID PRN; Protocol PRN Reason: hand pain Last Admin: 01/03/23 09:32 Dose: 1 appl Documented By: SOY Labs 01/04/23 05:15 01/04/23 05:15 Labs: Laboratory Results - last 24 hr 01/03/23 01/03/23 01/03/23 06:30 11:11 16:16 MCV MCH MCHC RDW Plt Count MPV Absolute Nucleated RBC Nucleated RBC % (auto) Anion Gap Estim Creat Clear Calc Estimated GFR POC Glucose 355 H* Random Glucose Uric Acid 6.0 Calcium Phosphorus Magnesium Albumin Urine Eosinophils % 0.0 01/03/23 01/03/23 01/04/23 16:19 20:56 05:15 MCV 103.6 H MCH 34.5 H MCHC 33.3 RDW 13.9 Plt Count 615 H D MPV 11.7 Absolute Nucleated RBC 0.050 H Nucleated RBC % (auto) 0.2 Anion Gap 13 Estim Creat Clear Calc 41.0 Estimated GFR 39 POC Glucose 269 H 244 H Random Glucose 253 H Uric Acid Calcium 8.8 Phosphorus 3.9 Magnesium 2.0 Albumin 2.0 L Urine Eosinophils % 01/04/23 07:08 MCV MCH MCHC RDW Plt Count MPV Absolute Nucleated RBC Nucleated RBC % (auto) Anion Gap Estim Creat Clear Calc Estimated GFR POC Glucose 227 H Random Glucose Uric Acid Calcium Phosphorus Magnesium Albumin Urine Eosinophils % Procedures Date of Service Date of Service: 01/04/23 Progress Note: A&P Assessment and plan (1) S/P exploratory laparotomy: Status: Acute (2) Small bowel obstruction: Status: Acute Plan Patient with superficial wound infection, incision now open and draining. Overall erythema is improved. Wound cultures covered with Levaquin. WBC elevated today possibly due to hand erythema. Bilateral upper extremity/hand erythema and pain, appears to be arthritic. Discussed with hand surgery this morning; orthopedic consultation placed. P.o. intake limited due to hand pain; will need assistance eating. Continue TPN Time Spent With Patient Time: Total time managing care of this patient today ____ minutes. Quality Stroke Does the patient have a stroke diagnosis?: No VTE Prior VTE?: No VTE Risk Level:: Surgical - moderate VTE Device Contraindication: N/A - Device Ordered VTE Drug Contraindication: N/A - Med Ordered
[2023-01-04 09:16] LABS: Atypical Lymph Absolute Manual 0.4 x10*3/uL; Atypical Lymphs Percent Manual 2 % (0-6); Band Neutrophils Percent 6 % (3-5); Basophils Abs Manual 0.2 X10*3/uL (0.0-0.2); Basophils Percent Manual 1 % (0-2); Eosinophils Absolute Manual 0.4 X10*3/uL (0.0-0.4); Eosinophils Percent Manual 2 % (0-4); Lymphocytes Absolute Manual 1.3 X10*3/uL (1.2-4.9); Lymphocytes Percent Manual 6 % (20-40); Metamyelocytes Absolute 0.2 X10*3/uL; Metamyelocytes Percent 1 %; Monocytes Absolute Manual 0.9 X10*3/uL (0.1-1.2); Monocytes Percent Manual 4 % (2-11); Myelocytes Absolute 0.4 X10*/uL; Myelocytes Percent 2 %; Neutrophils Absolute Manual 18.2 X10*3/uL (2.0-8.3); Neutrophils Percent Manual 76 % (45-73)
[2023-01-04 09:19] LABS: Acanthocytes 1+ (0-2) /OIF; Burr Cells 2+ (3-5) /OIF; Large Platelet PRESENT; Macrocytosis 2+ (15-30) /OIF; Platelet Estimate INCREASED (NORMAL); Platelet Morphology Comment NOTED; RBC Morphology NOTED; Schistocytes 1+ (0-2) /OIF; Smudge Cells PRESENT
[2023-01-04 11:16] LABS: Glucose, Whole Blood 276 mg/dL (60-115)
--- NOTE | 2023-01-04 11:37 | P.CDIM_ITS ---
PROVIDER RESPONSE TEXT: To clarify, the appropriate diagnosis supported by the clinical indicators: DM with hyperglycemia QUERY TEXT: PHYSICIAN'S DOCUMENTATION REQUEST Date of Query: 01/03/2023 09:43 AM EDT Patient Name: Dhiraj Huntley Admit Date: 12/18/2022 Dear Jacky Vo, A review of the medical record indicates additional documentation may be needed. Please review below and update the documentation accordingly. Clinical Indicators: PMH: NIDDM type 2 POC Glucose on 01/02/23: 331, 324, 307 POC Glucose on 01/03/23: 303 Please clarify the following regarding the Complications of Diabetes Mellitus (DM): DM with hyperglycemia No complications of DM Other (explain)Clinically unable to determine (explain)Thank you, Nhung Lozano RN Use of terms such as suspected, likely, concern for, or probable (associated with a specific diagnosi s that is being evaluated, monitored, or treated as if it exists) are acceptable and can be coded in the inpatient se tting, when documented at the time of discharge. Please use your independent medical judgment in providing your response. THIS QUERY IS PART OF THE PERMANENT MEDICAL RECORD
[2023-01-04] MEDS: Enoxaparin Sodium 30 MG/0.3 ML SYRINGE SUBCUT (11:54)
[2023-01-04] MEDS: levoFLOXacin/D5W 250 MG/50 ML PIGGYBACK 50 MG IV (11:54)
--- NOTE | 2023-01-04 13:45 | P.PNNP_ITS ---
Subjective Subjective Date of Service: 01/04/23 Interval history: Seen and exxamined, events ntoed Physical Exam 2 Vital Signs: Vital Signs: Last Vital Signs Temp 97.6 F 01/04/23 07:29 Pulse 72 01/04/23 07:29 Resp 16 01/04/23 07:29 BP 146/67 H 01/04/23 07:29 Pulse Ox 94 01/04/23 07:29 O2 Del Method Room Air 01/04/23 07:29 O2 Flow Rate 1 12/31/22 15:15 FiO2 33 12/20/22 18:30 BMI result Body Mass Index 33.4 Const: Other: General awake alert x3,in no acute distress. NG with bilious drainage Neck is supple no JVD. CVS regular rate rhythm, Respiratory lungs clear to auscultation, no respiratory distress, no rhonchi. Gastrointestinal abdomen soft, mid abdominal tenderness to palpation, bowel sounds audible, no guarding , no rigidity, colostomy bag with light brown liquid. Extremities no edema. Neuro nonfocal ,speech clear. Skin no rash appropriate affect General: cooperative, comfortable, no acute distress, well developed and alert Nutritional Appearance: well nourished and obese O rientation/consciousness: patient oriented x3 Limitations: no limitations and No language barrier HEENT: Other: NGT in place, scant bilious output Eyes: Sclerae: sclerae normal EOM: EOMs intact bilaterally Neck: Neck: Yes normal visual inspection and Yes supple Resp: Effort & Inspection: normal respiratory effort, no audible wheezes, no cough, no respiratory distress and no stridor Cardio: Jugular venous distension: no JVD Palpation: no palpable S3 H eart sounds: no murmurs and no rubs GI: Other: incision continues with purulent output from superior and inferior aspect; no significant erythema ostomy with liquid output Inspection: Yes normal to inspection, No distended, Yes incision (clean) and Yes other (ostomy bag in place) Palpation (GI): Soft to palpation, Tenderness to palpation present (GI) (mild incisional) in the LLQ and in the RLQ, no guarding, not rigid and No Rebound tenderness present Percussion: Yes normal to percussion and Yes tympanic to percussion Auscultation: normal bowel sounds Rectal Exam - Male: Yes deferred Skin: General skin exam: no rashes or lesions noted and dry skin Rashes: no rashes Neuro: General: patient oriented x3, moves all extremities and no focal motor deficits Motor exam (neuro): No Asterixis during motor activity present Extrem: General: Yes normal to inspection, Yes full ROM and Yes no clubbing, cyanosis or edema Psych: Appearance: grossly normal Objective Data Labs 01/04/23 05:15 01/04/23 05:15 Labs: Laboratory Results - last 24 hr 01/03/23 01/03/23 01/03/23 16:16 16:19 20:56 WBC RBC Hgb Hct MCV MCH MCHC RDW Plt Count MPV Absolute Nucleated RBC Nucleated RBC % (auto) Neutrophils % (Manual) Band Neutrophils % Lymphocytes % (Manual) Atypical Lymphs % (Man) Monocytes % (Manual) Eosinophils % (Manual) Basophils % (Manual) Metamyelocytes % Myelocytes % Abs Neuts (Manual) Lymphocytes # (Manual) Atyp Lymphs # (Manual) Monocytes # (Manual) Eosinophils # (Manual) Basophils # (Manual) Metamyelocytes # Myelocytes # Smudge Cells Platelet Estimate Large Platelets Plt Morphology Comment RBC Morphology Macrocytosis [place] Cells Acanthocytes (Spur) Schistocytes Sodium Potassium Chloride Carbon Dioxide Anion Gap BUN Creatinine Estim Creat Clear Calc Estimated GFR POC Glucose 269 H 244 H Random Glucose Uric Acid 6.0 Calcium Phosphorus Magnesium Albumin 01/04/23 01/04/23 01/04/23 05:15 07:08 11:02 WBC 22.2 H RBC 2.75 L Hgb 9.5 L Hct 28.5 L MCV 103.6 H MCH 34.5 H MCHC 33.3 RDW 13.9 Plt Count 615 H D MPV 11.7 Absolute Nucleated RBC 0.050 H Nucleated RBC % (auto) 0.2 Neutrophils % (Manual) 76 H Band Neutrophils % 6 H Lymphocytes % (Manual) 6 L Atypical Lymphs % (Man) 2 Monocytes % (Manual) 4 Eosinophils % (Manual) 2 Basophils % (Manual) 1 Metamyelocytes % 1 Myelocytes % 2 Abs Neuts (Manual) 18.2 H Lymphocytes # (Manual) 1.3 Atyp Lymphs # (Manual) 0.4 Monocytes # (Manual) 0.9 Eosinophils # (Manual) 0.4 Basophils # (Manual) 0.2 Metamyelocytes # 0.2 Myelocytes # 0.4 Smudge Cells PRESENT Platelet Estimate INCREASED Large Platelets PRESENT Plt Morphology Comment NOTED RBC Morphology NOTED Macrocytosis 2+ (15-30) [place] Cells 2+ (3-5) Acanthocytes (Spur) 1+ (0-2) Schistocytes 1+ (0-2) Sodium 133 L Potassium 4.4 Chloride 110 H Carbon Dioxide 14 L Anion Gap 13 BUN 44 H Creatinine 1.72 H Estim Creat Clear Calc 41.0 Estimated GFR 39 POC Glucose 227 H 276 H Random Glucose 253 H Uric Acid Calcium 8.8 Phosphorus 3.9 Magnesium 2.0 Albumin 2.0 L Microbiology Microbiology Results: Microbiology 12/27/22 07:55 Incision Gram Stain - Final 12/27/22 07:55 Incision Routine Culture - Final Enterobacter cloacae complex Pseudomonas aeruginosa Viridans streptococcus group Procedures Date of Service Date of Service: 01/04/23 Assessment & Plan Assessment and plan (1) CKD (chronic kidney disease): Status: Acute (2) Acute kidney injury superimposed on CKD: Status: Acute (3) Severe anemia: Status: Acute Plan 1. MARY JO: w/u in progress; SCr decr grad; multfact ATN sugg bu FENa > 1% vs other--remote possibility of PPI assoc AIN; Reviewing his SCr it is usu 1.5-2.0 over the past year--suspect he had CKD 3b and he is a his BSL 2. DM 3. HIV 4. S/p surg 5. NAGMA REC: cont ot track UOP and renal func; if HCO3 decr furhter then replace HCO3 IV--ask pharm to incr base in TPN ( I will contact Pharmacy); avoid NToxins; control BS Will follow--if SCr incr further then will get renal U/S as well Time Spent With Patient Time: Total time managing care of this patient today ____ minutes. Progress Note: Quality Stroke Does the patient have a stroke diagnosis?: No
--- NOTE | 2023-01-04 14:34 | PM.CNOR ---
History of Present Illness HPI Consult date: 01/04/23 Chief complaint: small-bowel obstruction, ulcerative colitis Narrative: 72 yo male admitted to the medical service for SBO. While in the hospital he c/o bilat wrist pain. He has chronic wrist OA and sees an orthopedist in [facility] who performs steroid injections. He states it has been about 3 months since his last injection. Denies recent injury in the hand or wrist. Review of Systems Review of Systems: per hpi [facility] Past Medical History Medical History (Updated 01/04/23 @ 14:47 by Silvia Braswell PA-C) Hyperlipemia Pancreatitis CKD (chronic kidney disease) HIV (human immunodeficiency virus infection) Chronic hepatitis Chronic use of nonprescription opiate drugs Ulcerative colitis Diabetes mellitus HTN (hypertension), benign Surgical History Surgical History (Updated 12/21/22 @ 07:54 by Sophie Zavaleta PA-C) Hx of cholecystectomy Hx of splenectomy Status post right hip replacement History of total left knee replacement (TKR) H/O colectomy Social History Social History Household Members: None Housing: Apartment Do you presently have visiting nurse or other home services: No Alcohol intake: never Patient Tobacco Use Status: Former Tobacco user Quit Date: 15 yrs ago Tobacco use type: Cigarette Advance Directives Date on File: 06/07/21 service: No Current occupational status: disabled Meds Allergies Allergy/AdvReac Type Severity Reaction Status Date / Time ampicillin [AMPICILLIN] Allergy Mild HIVES Verified 06/07/21 12:29 aspirin [ASPIRIN] Allergy Unknown RASH Verified 06/07/21 12:29 Active Medications: Current Medications Albuterol Sulfate (Albuterol Sulfate 90 Mcg 8 Gm Inhaler) 2 puff INHALE RQID PRN PRN Reason: Respiratory Distress Amlodipine Besylate (Amlodipine Besylate 10 Mg Tablet) 10 mg PO DAILY [facility]; Protocol Last Admin: 01/04/23 08:18 Dose: 10 mg Buprenorphine/Naloxone (Buprenorphine/Naloxone 8/2 Mg Film) 1 film SUBLINGUAL TID [facility] Last Admin: 01/04/23 08:18 Dose: 1 film Buspirone HCl (Buspirone Hcl 5 Mg Tablet) 5 mg PO TID [facility] Last Admin: 01/04/23 08:18 Dose: 5 mg Carvedilol (Carvedilol 12.5 Mg Tablet) 25 mg PO BID [facility]; Protocol Last Admin: 01/04/23 08:17 Dose: 25 mg Dextrose (Dextrose 50 % 25 Gm/50 Ml Syringe) 25 gm IVPUSH Q15M PRN; Protocol PRN Reason: per Hypoglycemia Standing Ord. Dextrose (Dextrose 50 % 25 Gm/50 Ml Syringe) 25 gm IVPUSH Q15M PRN; Protocol PRN Reason: per Hypoglycemia Standing Ord. Dolutegravir Sodium (Dolutegravir Sodium 50 Mg Tablet) 50 mg PO DAILY [facility] Last Admin: 01/04/23 08:18 Dose: 50 mg Enoxaparin Sodium (Enoxaparin Sodium 30 Mg/0.3 Ml Syringe) 30 mg SUBCUT Q24H [facility] Last Admin: 01/04/23 11:54 Dose: 30 mg Gabapentin (Gabapentin 600 Mg Tablet) 600 mg PO BID [facility] Last Admin: 01/04/23 08:18 Dose: 600 mg Glucose (Glucose Gel 15 Gm Gel..Gram.) 15 gm PO Q15M PRN; Protocol PRN Reason: per Hypoglycemia Standing Ord. Hydromorphone HCl (Hydromorphone Hcl 0.5 Mg/0.5 Ml Syringe) 0.5 mg IVPUSH Q2H PRN; Protocol PRN Reason: Pain, Severe (Pain Scale 7-10) Last Admin: 01/04/23 11:54 Dose: 0.5 mg Metronidazole (Flagyl) 500 mg in 100 mls @ 100 mls/hr IV Q8H [facility] Last Infusion: 01/04/23 06:56 Dose: Infused Levofloxacin (Levaquin) 250 mg in 50 mls @ 50 mls/hr IV Q24H [facility] Last Infusion: 01/04/23 13:07 Dose: Infused Nutrition (Parenteral) (Parenteral Nutrition) 1,560 mls @ 65 mls/hr IV .Q24H [facility]; Protocol Stop: 01/04/23 20:59 Last Admin: 01/03/23 21:26 Dose: 65 mls/hr Nutrition (Parenteral) (Parenteral Nutrition) 1,560 mls @ 65 mls/hr IV .Q24H [facility]; Protocol Stop: 01/05/23 20:59 Insulin Human Lispro (Insulin Lispro 100 Unit/Ml 3 Ml Vial) 0 unit SUBCUT QIDACHS [facility]; Protocol Last Admin: 01/04/23 11:55 Dose: 6 unit Insulin Human Lispro (Insulin Lispro 100 Unit/Ml 3 Ml Vial) 5 unit SUBCUT QIDACHS [facility] Last Admin: 01/04/23 11:55 Dose: 5 unit Lamivudine (Lamivudine 150 Mg Tablet) 300 mg PO DAILY [facility] Last Admin: 01/04/23 08:17 Dose: 300 mg Loratadine (Loratadine 10 Mg Tablet) 10 mg PO DAILY PRN PRN Reason: Allergic Symptoms Last Admin: 12/26/22 05:28 Dose: 10 mg Omeprazole (Omeprazole 40 Mg Capsule.Dr) 40 mg PO BID@0630,1630 [facility] Last Admin: 01/04/23 06:31 Dose: 40 mg Ondansetron HCl (Ondansetron Hcl 4 Mg/2 Ml Vial) 4 mg IVPUSH Q8H PRN PRN Reason: Nausea and Vomiting Last Admin: 12/27/22 11:36 Dose: 4 mg Oxycodone HCl (Oxycodone Hcl Immed Release 5 Mg Tablet) 5 mg PO Q4H PRN PRN Reason: Pain, Mild (Pain Scale 1-3) Pharmacy Consult (Consult Rx Parenteral Nutrition Ordering) 1 each MISCELLANE DAILY PRN PRN Reason: Consult order Sertraline HCl (Sertraline Hcl 25 Mg Tablet) 75 mg PO DAILY [facility] Last Admin: 01/04/23 08:18 Dose: 75 mg Sodium Chloride (0.9 % Sodium Chloride Flush 3 Ml Syringe) 3 ml IVFLUSH QSHIFT [facility] Last Admin: 01/04/23 08:19 Dose: Not Given Sodium Chloride (0.9 % Sodium Chloride Flush 10 Ml Syringe) 5 ml IVFLUSH TID [facility] Last Admin: 01/04/23 08:18 Dose: 5 ml Trazodone HCl (Trazodone Hcl 100 Mg Tablet) 100 mg PO BEDTIME PRN PRN Reason: Sleep Last Admin: 01/03/23 20:19 Dose: 100 mg Trolamine Salicylate (Trolamine Salicylate 10 % Cream 85 Gm Tube) 1 appl TOPICAL QID PRN; Protocol PRN Reason: hand pain Last Admin: 01/03/23 09:32 Dose: 1 appl Home Medications Medication Instructions Recorded Confirmed Last Taken Type albuterol sulfate 90 mcg/actuation 2 puff inhalation QID PRN 06/06/21 12/18/22 2 Days Ago History aerosol inhaler Respiratory Distress ~12/16/22 buprenorphine 8 mg-naloxone 2 mg 1 film sublingual TID 06/06/21 12/18/22 2 Days Ago History sublingual film ~12/16/22 buspirone 5 mg tablet 5 mg PO TID 06/06/21 12/18/22 2 Days Ago History ~12/16/22 carvedilol 12.5 mg tablet 12.5 mg PO BID 06/06/21 12/18/22 2 Days Ago History ~12/16/22 cetirizine 10 mg tablet 10 mg PO DAILY PRN Allergic 06/06/21 12/18/22 2 Days Ago History Symptoms ~12/16/22 gabapentin 600 mg tablet 600 mg PO BID 06/06/21 12/18/22 2 Days Ago History ~12/16/22 hydrochlorothiazide 12.5 mg tablet 12.5 mg PO DAILY 06/06/21 12/18/22 2 Days Ago History ~12/16/22 pravastatin 40 mg tablet 40 mg PO BEDTIME 06/06/21 12/18/22 2 Days Ago History ~12/16/22 sertraline 50 mg tablet 75 mg PO DAILY 06/06/21 12/18/22 2 Days Ago History ~12/16/22 trazodone 100 mg tablet 100 mg PO BEDTIME PRN Sleep 06/06/21 12/18/22 2 Days Ago History ~12/16/22 amlodipine 5 mg tablet 5 mg PO DAILY 12/18/22 12/18/22 2 Days Ago History ~12/16/22 dolutegravir 50 mg-lamivudine 300 1 tab PO DAILY 12/18/22 12/18/22 2 Days Ago History mg tablet (Dovato) ~12/16/22 dulaglutide 0.75 mg/0.5 mL 0.75 mg subcut MO 12/18/22 12/18/22 2 Days Ago History subcutaneous pen injector ~12/16/22 (Trulicity) empagliflozin 10 mg tablet 10 mg PO DAILY 12/18/22 12/18/22 2 Days Ago History (Jardiance) ~12/16/22 loperamide 2 mg tablet 2 mg PO Q6H PRN Diarrhea 12/18/22 12/18/22 2 Days Ago History (Anti-Diarrheal (loperamide)) ~12/16/22 Physical Exam Vital Signs: Vital Signs: Last Vital Signs Temp 97.6 F 01/04/23 07:29 Pulse 72 01/04/23 07:29 Resp 16 01/04/23 07:29 BP 146/67 H 01/04/23 07:29 Pulse Ox 94 01/04/23 07:29 O2 Del Method Room Air 01/04/23 07:29 O2 Flow Rate 1 12/31/22 15:15 FiO2 33 12/20/22 18:30 BMI result Body Mass Index 33.4 Const: General: cooperative and no acute distress Orientation/consciousness: patient oriented x3 Resp: Effort & Inspection: normal respiratory effort and able to speak in complete sentences Cardio: Peripheral pulses: Peripheral pulses 2+ throughout Neuro: General: patient oriented x3 Extrem: Other: Bilat hand skin intact, no open wounds or abraisons. No redness. Bilat thumb pain at the base of the thumb along the CMC joint. Pain with CMC grind. She is able to make a full fist and fully extend. NVI. Results Labs 01/04/23 05:15 01/04/23 05:15 Labs: Abnormal lab results 01/03/23 01/03/23 01/04/23 Range/Units 16:19 20:56 05:15 WBC 22.2 H (4.8-10.8) X10*3/uL RBC 2.75 L (4.60-5.80) X10*6/uL Hgb 9.5 L (14.0-18.0) g/dl Hct 28.5 L (42.0-52.0) % MCV 103.6 H (80.0-98.0) fL MCH 34.5 H (27.0-33.0) pg Plt Count 615 H D (160-400) X10*3/uL Absolute Nucleated RBC 0.050 H (0.0-0.012) X10*3/uL Neutrophils % (Manual) 76 H (45-73) % Band Neutrophils % 6 H (3-5) % Lymphocytes % (Manual) 6 L (20-40) % Abs Neuts (Manual) 18.2 H (2.0-8.3) X10*3/uL Sodium 133 L (135-145) mmol/L Chloride 110 H (96-108) mmol/L Carbon Dioxide 14 L (22-29) mmol/L BUN 44 H (9-16) mg/dL Creatinine 1.72 H (0.5-1.4) mg/dL POC Glucose 269 H 244 H (60-115) mg/dL Random Glucose 253 H (60-115) mg/dL Albumin 2.0 L (3.5-5.0) g/dL 01/04/23 01/04/23 Range/Units 07:08 11:02 WBC (4.8-10.8) X10*3/uL RBC (4.60-5.80) X10*6/uL Hgb (14.0-18.0) g/dl Hct (42.0-52.0) % MCV (80.0-98.0) fL MCH (27.0-33.0) pg Plt Count (160-400) X10*3/uL Absolute Nucleated RBC (0.0-0.012) X10*3/uL Neutrophils % (Manual) (45-73) % Band Neutrophils % (3-5) % Lymphocytes % (Manual) (20-40) % Abs Neuts (Manual) (2.0-8.3) X10*3/uL Sodium (135-145) mmol/L Chloride (96-108) mmol/L Carbon Dioxide (22-29) mmol/L BUN (9-16) mg/dL Creatinine (0.5-1.4) mg/dL POC Glucose 227 H 276 H (60-115) mg/dL Random Glucose (60-115) mg/dL Albumin (3.5-5.0) g/dL H & H 12/18/22 12/19/22 12/20/22 Range/Units 06:07 05:27 05:07 Hgb 14.0 D 14.0 13.0 L (14.0-18.0) g/dl Hct 41.2 L D 42.1 39.9 L (42.0-52.0) % 12/21/22 12/22/22 12/23/22 Range/Units 08:45 05:05 05:26 Hgb 13.4 L 11.2 L 11.0 L (14.0-18.0) g/dl Hct 39.9 L 34.0 L 34.2 L (42.0-52.0) % 12/29/22 12/31/22 01/01/23 Range/Units 05:01 05:13 05:59 Hgb 10.8 L 10.5 L 10.2 L (14.0-18.0) g/dl Hct 33.7 L 32.9 L 31.1 L (42.0-52.0) % 01/04/23 Range/Units 05:15 Hgb 9.5 L (14.0-18.0) g/dl Hct 28.5 L (42.0-52.0) % All other labs normal. Diagnostic results Wrist/Hand x-ray: image reviewed (severe OA bilat wrist ) Assessment and Plan (1) Osteoarthritis of wrists, bilateral: Status: Acute Plan Bilat wrist OA NSaids / tylenol prn Injection out patient prn No further intervention warranted Time Spent With Patient Time: Total time managing care of this patient today ____ minutes. Procedures Date of Service Date of Service: 01/04/23
--- NOTE | 2023-01-04 14:37 | MHC.CLN ---
F/U PT RECEIVING MAX GOAL RATE D15AA5@65 ML PER HOUR WITH 69 G LIPIDS PROVIDES 1798 TOTAL KCALS (25 KCALS/KG CMW), 234 G DEXTROSE, 78 G PROTEIN (1.09 G/KG CMW) CONTINUE SAME RATE TODAY REPLETE LYTES NEEDED MONITOR PO INTAKE CLOSELY
[2023-01-04 15:26] VITALS: BP 127/60; PULSE 73; RESP 17; TEMP 36.1; O2SAT 94
[2023-01-04 16:42] LABS: Glucose, Whole Blood 259 mg/dL (60-115)
[2023-01-04] MEDS: 0.9 % Sodium Chloride Flush 3 ML SYRINGE IVFLUSH (16:53)
--- NOTE | 2023-01-04 18:39 | P.PNIM_ITS ---
Subjective Subjective Date of Service: 01/04/23 Interval History: seen and examined follow up med consult for hand swelling no change from that perspective Review of Systems Review of Systems: Yes all other systems are reviewed and are negative Constitutional Constitutional: Denies chills and Denies fever(s) Cardiovascular Cardiovascular: Denies chest pain Physical Exam 2 Vital Signs: Vital Signs: Last Vital Signs Temp 96.9 F 01/04/23 15:26 Pulse 73 01/04/23 15:26 Resp 17 01/04/23 15:26 BP 127/60 01/04/23 15:26 Pulse Ox 94 01/04/23 15:26 O2 Del Method Room Air 01/04/23 15:26 O2 Flow Rate 1 12/31/22 15:15 FiO2 33 12/20/22 18:30 BMI result Body Mass Index 33.4 Const: General: cooperative, comfortable, no acute distress, alert and awake Nutritional Appearance: average body habitus Resp: Effort & Inspection: normal respiratory effort, able to speak in complete sentences, no respiratory distress and no use of accessory muscles Neuro: Other: grossly nonfocal Extrem: Other: no significant hand swelling, full ROM Objective Data Active Medications Albuterol Sulfate (Albuterol Sulfate 90 Mcg 8 Gm Inhaler) 2 puff INHALE RQID PRN PRN Reason: Respiratory Distress Amlodipine Besylate (Amlodipine Besylate 10 Mg Tablet) 10 mg PO DAILY [facility]; Protocol Last Admin: 01/04/23 08:18 Dose: 10 mg Documented By: BRINA Buprenorphine/Naloxone (Buprenorphine/Naloxone 8/2 Mg Film) 1 film SUBLINGUAL TID [facility] Last Admin: 01/04/23 14:43 Dose: 1 film Documented By: BRINA Buspirone HCl (Buspirone Hcl 5 Mg Tablet) 5 mg PO TID [facility] Last Admin: 01/04/23 14:44 Dose: 5 mg Documented By: BRINA Carvedilol (Carvedilol 12.5 Mg Tablet) 25 mg PO BID [facility]; Protocol Last Admin: 01/04/23 08:17 Dose: 25 mg Documented By: BRINA Dextrose (Dextrose 50 % 25 Gm/50 Ml Syringe) 25 gm IVPUSH Q15M PRN; Protocol PRN Reason: per Hypoglycemia Standing Ord. Dextrose (Dextrose 50 % 25 Gm/50 Ml Syringe) 25 gm IVPUSH Q15M PRN; Protocol PRN Reason: per Hypoglycemia Standing Ord. Dolutegravir Sodium (Dolutegravir Sodium 50 Mg Tablet) 50 mg PO DAILY [facility] Last Admin: 01/04/23 08:18 Dose: 50 mg Documented By: BRINA Enoxaparin Sodium (Enoxaparin Sodium 30 Mg/0.3 Ml Syringe) 30 mg SUBCUT Q24H [facility] Last Admin: 01/04/23 11:54 Dose: 30 mg Documented By: BRINA Gabapentin (Gabapentin 600 Mg Tablet) 600 mg PO BID [facility] Last Admin: 01/04/23 08:18 Dose: 600 mg Documented By: BRINA Glucose (Glucose Gel 15 Gm Gel..Gram.) 15 gm PO Q15M PRN; Protocol PRN Reason: per Hypoglycemia Standing Ord. Hydromorphone HCl (Hydromorphone Hcl 0.5 Mg/0.5 Ml Syringe) 0.5 mg IVPUSH Q2H PRN; Protocol PRN Reason: Pain, Severe (Pain Scale 7-10) Last Admin: 01/04/23 14:43 Dose: 0.5 mg Documented By: BRINA Metronidazole (Flagyl) 500 mg in 100 mls @ 100 mls/hr IV Q8H [facility] Last Infusion: 01/04/23 15:50 Dose: Infused Documented By: BRINA Levofloxacin (Levaquin) 250 mg in 50 mls @ 50 mls/hr IV Q24H [facility] Last Infusion: 01/04/23 13:07 Dose: Infused Documented By: BRINA Nutrition (Parenteral) (Parenteral Nutrition) 1,560 mls @ 65 mls/hr IV .Q24H [facility]; Protocol Stop: 01/04/23 20:59 Last Admin: 01/03/23 21:26 Dose: 65 mls/hr Documented By: WAYLON Nutrition (Parenteral) (Parenteral Nutrition) 1,560 mls @ 65 mls/hr IV .Q24H [facility]; Protocol Stop: 01/05/23 20:59 Insulin Human Lispro (Insulin Lispro 100 Unit/Ml 3 Ml Vial) 0 unit SUBCUT QIDACHS [facility]; Protocol Last Admin: 01/04/23 16:52 Dose: 6 unit Documented By: BRINA Insulin Human Lispro (Insulin Lispro 100 Unit/Ml 3 Ml Vial) 5 unit SUBCUT QIDACHS [facility] Last Admin: 01/04/23 16:53 Dose: 5 unit Documented By: BRINA Lamivudine (Lamivudine 150 Mg Tablet) 300 mg PO DAILY [facility] Last Admin: 01/04/23 08:17 Dose: 300 mg Documented By: BRINA Loratadine (Loratadine 10 Mg Tablet) 10 mg PO DAILY PRN PRN Reason: Allergic Symptoms Last Admin: 12/26/22 05:28 Dose: 10 mg Documented By: SARAHI Omeprazole (Omeprazole 40 Mg Capsule.Dr) 40 mg PO BID@0630,1630 [facility] Last Admin: 01/04/23 16:52 Dose: 40 mg Documented By: BRINA Ondansetron HCl (Ondansetron Hcl 4 Mg/2 Ml Vial) 4 mg IVPUSH Q8H PRN PRN Reason: Nausea and Vomiting Last Admin: 12/27/22 11:36 Dose: 4 mg Documented By: KEISHA Oxycodone HCl (Oxycodone Hcl Immed Release 5 Mg Tablet) 5 mg PO Q4H PRN PRN Reason: Pain, Mild (Pain Scale 1-3) Pharmacy Consult (Consult Rx Parenteral Nutrition Ordering) 1 each MISCELLANE DAILY PRN PRN Reason: Consult order Sertraline HCl (Sertraline Hcl 25 Mg Tablet) 75 mg PO DAILY [facility] Last Admin: 01/04/23 08:18 Dose: 75 mg Documented By: BRINA Sodium Chloride (0.9 % Sodium Chloride Flush 3 Ml Syringe) 3 ml IVFLUSH QSHIFT [facility] Last Admin: 01/04/23 16:53 Dose: 3 ml Documented By: BRINA Sodium Chloride (0.9 % Sodium Chloride Flush 10 Ml Syringe) 5 ml IVFLUSH TID [facility] Last Admin: 01/04/23 14:44 Dose: 5 ml Documented By: BRINA Trazodone HCl (Trazodone Hcl 100 Mg Tablet) 100 mg PO BEDTIME PRN PRN Reason: Sleep Last Admin: 01/03/23 20:19 Dose: 100 mg Documented By: OZORALBladimir Trolamine Salicylate (Trolamine Salicylate 10 % Cream 85 Gm Tube) 1 appl TOPICAL QID PRN; Protocol PRN Reason: hand pain Last Admin: 01/03/23 09:32 Dose: 1 appl Documented By: SOY Labs 01/04/23 05:15 01/04/23 05:15 Labs: Laboratory Results - last 24 hr 01/03/23 01/04/23 01/04/23 20:56 05:15 07:08 MCV 103.6 H MCH 34.5 H MCHC 33.3 RDW 13.9 Plt Count 615 H D MPV 11.7 Absolute Nucleated RBC 0.050 H Nucleated RBC % (auto) 0.2 Neutrophils % (Manual) 76 H Band Neutrophils % 6 H Lymphocytes % (Manual) 6 L Atypical Lymphs % (Man) 2 Monocytes % (Manual) 4 Eosinophils % (Manual) 2 Basophils % (Manual) 1 Metamyelocytes % 1 Myelocytes % 2 Abs Neuts (Manual) 18.2 H Lymphocytes # (Manual) 1.3 Atyp Lymphs # (Manual) 0.4 Monocytes # (Manual) 0.9 Eosinophils # (Manual) 0.4 Basophils # (Manual) 0.2 Metamyelocytes # 0.2 Myelocytes # 0.4 Smudge Cells PRESENT Platelet Estimate INCREASED Large Platelets PRESENT Plt Morphology Comment NOTED RBC Morphology NOTED Macrocytosis 2+ (15-30) Balta Cells 2+ (3-5) Acanthocytes (Spur) 1+ (0-2) Schistocytes 1+ (0-2) Anion Gap 13 Estim Creat Clear Calc 41.0 Estimated GFR 39 POC Glucose 244 H 227 H Random Glucose 253 H Calcium 8.8 Phosphorus 3.9 Magnesium 2.0 Albumin 2.0 L 01/04/23 01/04/23 11:02 16:33 MCV MCH MCHC RDW Plt Count MPV Absolute Nucleated RBC Nucleated RBC % (auto) Neutrophils % (Manual) Band Neutrophils % Lymphocytes % (Manual) Atypical Lymphs % (Man) Monocytes % (Manual) Eosinophils % (Manual) Basophils % (Manual) Metamyelocytes % Myelocytes % Abs Neuts (Manual) Lymphocytes # (Manual) Atyp Lymphs # (Manual) Monocytes # (Manual) Eosinophils # (Manual) Basophils # (Manual) Metamyelocytes # Myelocytes # Smudge Cells Platelet Estimate Large Platelets Plt Morphology Comment RBC Morphology Macrocytosis Balta Cells Acanthocytes (Spur) Schistocytes Anion Gap Estim Creat Clear Calc Estimated GFR POC Glucose 276 H 259 H Random Glucose Calcium Phosphorus Magnesium Albumin Assessment and Plan (1) Osteoarthritis of wrists, bilateral: Status: Acute Plan 72 year-old man admitted by general surgery on 12/18/2022 for SBO and is status post exploratory laparotomy, extensive lysis of adhesions and small-bowel resection. He now has complaints of bilateral hand edema has started yesterday. He reported that he had been getting injections in his hands for osteoarthritis every 3 months starting approximately 9 months ago AP: Bilateral hand edema seen by ortho - Bilat wrist OA NSaids / tylenol prn, Injection out patient prn Diabetes mellitus type 2 with hyperglycemia Continue sliding scale Mealtime insulin added thank you for allowing us to participate in the care of this patient. we will follow on an as needed basis Time Spent With Patient Time: Total time managing care of this patient today ____ minutes. Quality Stroke Does the patient have a stroke diagnosis?: No VTE Prior VTE?: No VTE Risk Level:: Surgical - moderate VTE Device Contraindication: N/A - Device Ordered VTE Drug Contraindication: N/A - Med Ordered
[2023-01-04 19:44] VITALS: BP 133/71; PULSE 82; RESP 18; TEMP 36; O2SAT 97
[2023-01-04 20:57] LABS: Glucose, Whole Blood 233 mg/dL (60-115)
[2023-01-04] MEDS: Parenteral Nutrition 1,560 ML 65 ML IV (21:05)
[2023-01-04] MEDS: Trolamine Salicylate 10 % Cream 85 GM TUBE 1 APPL TOPICAL (23:32)
[2023-01-05] MEDS: HYDROmorphone HCl 0.5 MG/0.5 ML SYRINGE IVPUSH ×5 (01:48→20:44)
[2023-01-05 03:31] VITALS: BP 163/76; PULSE 71; RESP 17; TEMP 36.3; O2SAT 96
[2023-01-05 04:43] LABS: Albumin Level 2.2 g/dL (3.5-5.0); Anion Gap 12 (12-20); Blood Urea Nitrogen 51 mg/dL (9-16); Calcium 8.9 mg/dL (8.4-10.2); Carbon Dioxide 17 mmol/L (22-29); Chloride 111 mmol/L (96-108); Creatinine Clr Calc Pharmacy 34.9; Estimated Glomerular Filt Rate 33; Glucose Random 304 mg/dL (60-115); Magnesium 1.9 mg/dL (1.6-2.6); Phosphorus 4.3 mg/dL (2.7-4.5); Potassium 4.6 mmol/L (3.3-5.1); Sodium 135 mmol/L (135-145)
[2023-01-05] MEDS: metroNIDAZOLE/NS 500 MG/100 ML PIGGYBACK 100 MG IV ×3 (06:13→21:52)
[2023-01-05] MEDS: Omeprazole 40 MG CAPSULE.DR PO ×2 (06:13→18:07)
[2023-01-05 07:39] VITALS: BP 134/64; PULSE 70; RESP 17; TEMP 36.1; O2SAT 96
[2023-01-05 07:58] LABS: Glucose, Whole Blood 305 mg/dL (60-115)
[2023-01-05] MEDS: amLODIPine Besylate 10 MG TABLET PO (08:08)
[2023-01-05] MEDS: Insulin Lispro 100 UNIT/ML 3 ML VIAL SUBCUT ×5 (08:08→20:44)
[2023-01-05] MEDS: lamiVUDine 150 MG TABLET 300 MG PO (08:08)
[2023-01-05] MEDS: 0.9 % Sodium Chloride Flush 10 ML SYRINGE 5 ML IVFLUSH ×3 (08:09→20:46)
[2023-01-05] MEDS: Buprenorphine/Naloxone 8/2 mg FILM 1 FILM SUBLINGUAL ×3 (08:09→20:45)
[2023-01-05] MEDS: Gabapentin 600 MG TABLET PO ×2 (08:09→20:46)
[2023-01-05] MEDS: busPIRone HCl 5 MG TABLET PO ×3 (08:09→20:46)
[2023-01-05] MEDS: Dolutegravir Sodium 50 MG TABLET PO (08:09)
[2023-01-05] MEDS: Sertraline HCL 25 MG TABLET 75 MG PO (08:09)
[2023-01-05] MEDS: carvediloL 12.5 MG TABLET 25 MG PO ×2 (08:09→20:45)
--- NOTE | 2023-01-05 08:12 | PM.PNGS ---
Subjective Subjective Date of Service: 01/05/23 Interval history: Patient reports less pain in the right hand but does have some pain in the left hand with persistent swelling. Appetite is improving; denies nausea or vomiting. Ostomy is functioning well. No evidence of small-bowel obstruction. Physical Exam Vital Signs: Vital Signs: Last Vital Signs Temp 97.0 F 01/05/23 07:39 Pulse 70 01/05/23 07:39 Resp 17 01/05/23 07:39 BP 134/64 01/05/23 07:39 Pulse Ox 96 01/05/23 07:39 O2 Del Method Room Air 01/05/23 07:39 O2 Flow Rate 1 12/31/22 15:15 FiO2 33 12/20/22 18:30 BMI result Body Mass Index 33.4 Const: General: no acute distress Nutritional Appearance: obese Orientation/consciousness: patient oriented x3 Resp: Effort & Inspection: normal respiratory effort, no audible wheezes, no cough and no respiratory distress GI: Other: Dressings clean, dry, and intact, continues to drain purulent fluid. Erythema much improved. Neuro: General: patient oriented x3 Extrem: Other: Bilateral hands appear less red and swollen today, difficulty with range of motion however. Objective Data Active Medications Albuterol Sulfate (Albuterol Sulfate 90 Mcg 8 Gm Inhaler) 2 puff INHALE RQID PRN PRN Reason: Respiratory Distress Amlodipine Besylate (Amlodipine Besylate 10 Mg Tablet) 10 mg PO DAILY [facility]; Protocol Last Admin: 01/05/23 08:08 Dose: 10 mg Documented By: BRINA Buprenorphine/Naloxone (Buprenorphine/Naloxone 8/2 Mg Film) 1 film SUBLINGUAL TID [facility] Last Admin: 01/05/23 08:09 Dose: 1 film Documented By: BRINA Buspirone HCl (Buspirone Hcl 5 Mg Tablet) 5 mg PO TID [facility] Last Admin: 01/05/23 08:09 Dose: 5 mg Documented By: BRINA Carvedilol (Carvedilol 12.5 Mg Tablet) 25 mg PO BID [facility]; Protocol Last Admin: 01/05/23 08:09 Dose: 25 mg Documented By: BRINA Dextrose (Dextrose 50 % 25 Gm/50 Ml Syringe) 25 gm IVPUSH Q15M PRN; Protocol PRN Reason: per Hypoglycemia Standing Ord. Dextrose (Dextrose 50 % 25 Gm/50 Ml Syringe) 25 gm IVPUSH Q15M PRN; Protocol PRN Reason: per Hypoglycemia Standing Ord. Dolutegravir Sodium (Dolutegravir Sodium 50 Mg Tablet) 50 mg PO DAILY [facility] Last Admin: 01/05/23 08:09 Dose: 50 mg Documented By: BRINA Enoxaparin Sodium (Enoxaparin Sodium 30 Mg/0.3 Ml Syringe) 30 mg SUBCUT Q24H [facility] Last Admin: 01/04/23 11:54 Dose: 30 mg Documented By: BRINA Gabapentin (Gabapentin 600 Mg Tablet) 600 mg PO BID [facility] Last Admin: 01/05/23 08:09 Dose: 600 mg Documented By: BRINA Glucose (Glucose Gel 15 Gm Gel..Gram.) 15 gm PO Q15M PRN; Protocol PRN Reason: per Hypoglycemia Standing Ord. Hydromorphone HCl (Hydromorphone Hcl 0.5 Mg/0.5 Ml Syringe) 0.5 mg IVPUSH Q2H PRN; Protocol PRN Reason: Pain, Severe (Pain Scale 7-10) Last Admin: 01/05/23 06:22 Dose: 0.5 mg Documented By: CATRACHITO Metronidazole (Flagyl) 500 mg in 100 mls @ 100 mls/hr IV Q8H [facility] Last Infusion: 01/05/23 07:17 Dose: Infused Documented By: BRINA Levofloxacin (Levaquin) 250 mg in 50 mls @ 50 mls/hr IV Q24H [facility] Last Infusion: 01/04/23 13:07 Dose: Infused Documented By: BRINA Nutrition (Parenteral) (Parenteral Nutrition) 1,560 mls @ 20 mls/hr IV .Q24H [facility]; Protocol Stop: 01/07/23 01:49 Last Admin: 01/04/23 21:05 Dose: 65 mls/hr Documented By: CATRACHITO Insulin Human Lispro (Insulin Lispro 100 Unit/Ml 3 Ml Vial) 0 unit SUBCUT QIDAS [facility]; Protocol Last Admin: 01/05/23 08:08 Dose: 8 unit Documented By: BRINA Insulin Human Lispro (Insulin Lispro 100 Unit/Ml 3 Ml Vial) 5 unit SUBCUT QIDABRENDAS [facility] Last Admin: 01/05/23 08:08 Dose: 5 unit Documented By: BRINA Lamivudine (Lamivudine 150 Mg Tablet) 300 mg PO DAILY [facility] Last Admin: 01/05/23 08:08 Dose: 300 mg Documented By: BRINA Loratadine (Loratadine 10 Mg Tablet) 10 mg PO DAILY PRN PRN Reason: Allergic Symptoms Last Admin: 12/26/22 05:28 Dose: 10 mg Documented By: SARAHI Omeprazole (Omeprazole 40 Mg Capsule.Dr) 40 mg PO BID@0630,1630 [facility] Last Admin: 01/05/23 06:13 Dose: 40 mg Documented By: TALYARISRemy Ondansetron HCl (Ondansetron Hcl 4 Mg/2 Ml Vial) 4 mg IVPUSH Q8H PRN PRN Reason: Nausea and Vomiting Last Admin: 12/27/22 11:36 Dose: 4 mg Documented By: KEISHA Oxycodone HCl (Oxycodone Hcl Immed Release 5 Mg Tablet) 5 mg PO Q4H PRN PRN Reason: Pain, Mild (Pain Scale 1-3) Pharmacy Consult (Consult Rx Parenteral Nutrition Ordering) 1 each MISCELLANE DAILY PRN PRN Reason: Consult order Sertraline HCl (Sertraline Hcl 25 Mg Tablet) 75 mg PO DAILY [facility] Last Admin: 01/05/23 08:09 Dose: 75 mg Documented By: BRINA Sodium Chloride (0.9 % Sodium Chloride Flush 3 Ml Syringe) 3 ml IVFLUSH QSHIFT [facility] Last Admin: 01/05/23 08:09 Dose: Not Given Documented By: BRINA Non-Admin Reason: Duplicate Order Sodium Chloride (0.9 % Sodium Chloride Flush 10 Ml Syringe) 5 ml IVFLUSH TID [facility] Last Admin: 01/05/23 08:09 Dose: 5 ml Documented By: BRINA Trazodone HCl (Trazodone Hcl 100 Mg Tablet) 100 mg PO BEDTIME PRN PRN Reason: Sleep Last Admin: 01/03/23 20:19 Dose: 100 mg Documented By: BRIIORALBladimir Trolamine Salicylate (Trolamine Salicylate 10 % Cream 85 Gm Tube) 1 appl TOPICAL QID PRN; Protocol PRN Reason: hand pain Last Admin: 01/04/23 23:32 Dose: 1 appl Documented By: CATRACHITO Labs 01/04/23 05:15 01/05/23 04:09 Labs: Laboratory Results - last 24 hr 01/04/23 01/04/23 01/04/23 05:15 11:02 16:33 Neutrophils % (Manual) 76 H Band Neutrophils % 6 H Lymphocytes % (Manual) 6 L Atypical Lymphs % (Man) 2 Monocytes % (Manual) 4 Eosinophils % (Manual) 2 Basophils % (Manual) 1 Metamyelocytes % 1 Myelocytes % 2 Abs Neuts (Manual) 18.2 H Lymphocytes # (Manual) 1.3 Atyp Lymphs # (Manual) 0.4 Monocytes # (Manual) 0.9 Eosinophils # (Manual) 0.4 Basophils # (Manual) 0.2 Metamyelocytes # 0.2 Myelocytes # 0.4 Smudge Cells PRESENT Platelet Estimate INCREASED Large Platelets PRESENT Plt Morphology Comment NOTED RBC Morphology NOTED Macrocytosis 2+ (15-30) Balta Cells 2+ (3-5) Acanthocytes (Spur) 1+ (0-2) Schistocytes 1+ (0-2) Anion Gap Estim Creat Clear Calc Estimated GFR POC Glucose 276 H 259 H Random Glucose Calcium Phosphorus Magnesium Albumin 01/04/23 01/05/23 01/05/23 20:50 04:09 07:23 Neutrophils % (Manual) Band Neutrophils % Lymphocytes % (Manual) Atypical Lymphs % (Man) Monocytes % (Manual) Eosinophils % (Manual) Basophils % (Manual) Metamyelocytes % Myelocytes % Abs Neuts (Manual) Lymphocytes # (Manual) Atyp Lymphs # (Manual) Monocytes # (Manual) Eosinophils # (Manual) Basophils # (Manual) Metamyelocytes # Myelocytes # Smudge Cells Platelet Estimate Large Platelets Plt Morphology Comment RBC Morphology Macrocytosis Balta Cells Acanthocytes (Spur) Schistocytes Anion Gap 12 Estim Creat Clear Calc 34.9 Estimated GFR 33 POC Glucose 233 H 305 H Random Glucose 304 H Calcium 8.9 Phosphorus 4.3 Magnesium 1.9 Albumin 2.2 L Procedures Date of Service Date of Service: 01/05/23 Progress Note: A&P Assessment and plan (1) S/P exploratory laparotomy: Status: Acute (2) Small bowel obstruction: Status: Acute Plan Patient with superficial wound infection, overall improved today with minimal erythema. Incision remains open and packed with iodoform gauze. Wound cultures covered with Levaquin. Recheck WBC in a.m.. Bilateral upper extremity/hand erythema overall improved today. Appreciate Orthopedic input. P.o. intake appears to be improving therefore will stop TPN later today. Time Spent With Patient Time: Total time managing care of this patient today ____ minutes. Quality Stroke Does the patient have a stroke diagnosis?: No VTE Prior VTE?: No VTE Risk Level:: Surgical - moderate VTE Device Contraindication: N/A - Device Ordered VTE Drug Contraindication: N/A - Med Ordered
--- NOTE | 2023-01-05 09:19 | MHC.CLN ---
F/U PER MD NOTE, APPETITE IMPROVING AND STOP TPN. DIET=DIABETIC 2000 KCALS - APPROPRIATE. ADDING ENSURE MAX BID TO INCREASE PO NUTRITIONAL INTAKE. PROVIDES 300 KCALS, 60 G PROTEIN. INTAKE VARIABLE, 0-100%. FOLLOW FOR PO INTAKE/DIET TOLERANCE.
[2023-01-05] MEDS: Enoxaparin Sodium 30 MG/0.3 ML SYRINGE SUBCUT (11:23)
[2023-01-05] MEDS: levoFLOXacin/D5W 250 MG/50 ML PIGGYBACK 50 MG IV (11:23)
[2023-01-05 12:01] LABS: Glucose, Whole Blood 227 mg/dL (60-115)
--- NOTE | 2023-01-05 14:14 | P.PNNP_ITS ---
Subjective Subjective Date of Service: 01/05/23 Interval history: GFR near baseline Cr usually 1.7-2.0mg/dL VSS Physical Exam 2 Vital Signs: Vital Signs: Last Vital Signs Temp 97.0 F 01/05/23 07:39 Pulse 70 01/05/23 07:39 Resp 17 01/05/23 07:39 BP 134/64 01/05/23 07:39 Pulse Ox 96 01/05/23 07:39 O2 Del Method Room Air 01/05/23 07:39 O2 Flow Rate 1 12/31/22 15:15 FiO2 33 12/20/22 18:30 BMI result Body Mass Index 33.4 Const: Other: General awake alert x3,in no acute distress. NG with bilious drainage Neck is supple no JVD. CVS regular rate rhythm, Respiratory lungs clear to auscultation, no respiratory distress, no rhonchi. Gastrointestinal abdomen soft, mid abdominal tenderness to palpation, bowel sounds audible, no guarding , no rigidity, colostomy bag with light brown liquid. Extremities no edema. Neuro nonfocal ,speech clear. Skin no rash appropriate affect Objective Data Labs 01/04/23 05:15 01/05/23 04:09 Labs: Laboratory Results - last 24 hr 01/04/23 01/04/23 01/05/23 16:33 20:50 04:09 Sodium 135 Potassium 4.6 Chloride 111 H Carbon Dioxide 17 L Anion Gap 12 BUN 51 H Creatinine 2.02 H Estim Creat Clear Calc 34.9 Estimated GFR 33 POC Glucose 259 H 233 H Random Glucose 304 H Calcium 8.9 Phosphorus 4.3 Magnesium 1.9 Albumin 2.2 L 01/05/23 01/05/23 07:23 11:44 Sodium Potassium Chloride Carbon Dioxide Anion Gap BUN Creatinine Estim Creat Clear Calc Estimated GFR POC Glucose 305 H 227 H Random Glucose Calcium Phosphorus Magnesium Albumin Microbiology Microbiology Results: Microbiology 12/27/22 07:55 Incision Gram Stain - Final 12/27/22 07:55 Incision Routine Culture - Final Enterobacter cloacae complex Pseudomonas aeruginosa Viridans streptococcus group Procedures Date of Service Date of Service: 01/05/23 Assessment & Plan Assessment and plan (1) CKD (chronic kidney disease): Status: Acute (2) Acute kidney injury superimposed on CKD: Status: Acute (3) Severe anemia: Status: Acute Plan 1. MARY JO with FeNa >1% after SBO and Exlap. ATN resolved 2. CKD stage IIIb BL Cr 1.7-2.0mg/dL 3. NAGMA 2/2 RTA 4 Plan: - start sodium bicarbonate 1300mg BID chronically even after discharge - no diuresis - rest of MAR reviewed, all is clear - RTANE WILL SIGN OFF PLEASE CALL IF QUESTIONS Time Spent With Patient Time: Total time managing care of this patient today ____ minutes. Progress Note: Quality Stroke Does the patient have a stroke diagnosis?: No
--- NOTE | 2023-01-05 14:56 | MHC.CM.PN ---
Per MD rounds no discharge today. Patient appetit has improved and TPN stopped. PT rec STR. A referral has been sent to [facility]. DP STR via BLS vs Home with resumption of Home care [facility]. CM will continue to follow.
[2023-01-05 15:49] VITALS: BP 128/60; PULSE 75; RESP 20; TEMP 36; O2SAT 95
[2023-01-05 16:19] LABS: Glucose, Whole Blood 143 mg/dL (60-115)
[2023-01-05 19:29] VITALS: BP 125/60; PULSE 76; RESP 20; TEMP 36.4; O2SAT 94
[2023-01-05 20:27] LABS: Glucose, Whole Blood 182 mg/dL (60-115)
[2023-01-05] MEDS: Sodium Bicarbonate 650 MG TABLET 1300 MG PO (20:45)
[2023-01-05] MEDS: 0.9 % Sodium Chloride Flush 3 ML SYRINGE IVFLUSH (22:33)
[2023-01-06 04:00] VITALS: BP 143/81; PULSE 76; RESP 16; TEMP 36.6; O2SAT 97
[2023-01-06] MEDS: oxyCODONE HCl Immed Release 5 MG TABLET PO ×3 (05:04→15:26)
[2023-01-06] MEDS: metroNIDAZOLE/NS 500 MG/100 ML PIGGYBACK 100 MG IV ×3 (05:30→21:48)
[2023-01-06] MEDS: Omeprazole 40 MG CAPSULE.DR PO ×2 (05:30→15:26)
[2023-01-06 07:01] LABS: Hematocrit 29.4 % (42.0-52.0); Hemoglobin 9.8 g/dl (14.0-18.0); Mean Corpuscular HGB Conc 33.3 g/dl (31.0-36.0); Mean Corpuscular Hemoglobin 33.6 pg (27.0-33.0); Mean Corpuscular Volume 100.7 fL (80.0-98.0); Mean Platelet Volume 10.2 fL (9.4-12.4); NRBC Pct Auto 0.4 /100WBC (0.0-0.2); Platelet Count 723 X10*3/uL (160-400); Red Blood Count 2.92 X10*6/uL (4.60-5.80); Red Cell Distribution Width 13.9 % (11.0-16.0)
[2023-01-06 07:03] LABS: WBC ABN SCTR FOR CBC 1
[2023-01-06 07:07] LABS: Glucose, Whole Blood 137 mg/dL (60-115)
[2023-01-06 07:07] LABS: Anion Gap 10 (12-20); Blood Urea Nitrogen 51 mg/dL (9-16); Carbon Dioxide 18 mmol/L (22-29); Chloride 113 mmol/L (96-108); Creatinine Clr Calc Pharmacy 39.8; Estimated Glomerular Filt Rate 38; Glucose Random 161 mg/dL (60-115); Potassium 4.5 mmol/L (3.3-5.1); Sodium 136 mmol/L (135-145)
[2023-01-06 07:15] LABS: Atypical Lymphs Percent Manual 1 % (0-6); Band Neutrophils Percent 5 % (3-5); Eosinophils Percent Manual 2 % (0-4); Lymphocytes Percent Manual 8 % (20-40); Metamyelocytes Percent 1 %; Monocytes Percent Manual 10 % (2-11); Neutrophils Percent Manual 73 % (45-73)
[2023-01-06 07:18] VITALS: BP 134/64; PULSE 73; RESP 16; TEMP 36; O2SAT 97
[2023-01-06 07:19] LABS: Acanthocytes 1+ (0-2) /OIF; Macrocytosis 1+ (5-14) /OIF; RBC Morphology NOTED
[2023-01-06 07:20] LABS: Burr Cells 2+ (3-5) /OIF; Polychromasia 1+ (0-2) /OIF
[2023-01-06 07:21] LABS: Platelet Estimate INCREASED (NORMAL); Schistocytes 1+ (0-2) /OIF
[2023-01-06 07:22] LABS: Large Platelet PRESENT; Nucleated Red Blood Cells 1 /100WBC (0-0); Platelet Morphology Comment NOTED
[2023-01-06 07:25] LABS: Atypical Lymph Absolute Manual 0.2 x10*3/uL; Eosinophils Absolute Manual 0.4 X10*3/uL (0.0-0.4); Lymphocytes Absolute Manual 1.5 X10*3/uL (1.2-4.9); Metamyelocytes Absolute 0.2 X10*3/uL; Monocytes Absolute Manual 1.9 X10*3/uL (0.1-1.2); Neutrophils Absolute Manual 14.6 X10*3/uL (2.0-8.3); White Blood Count 18.7 X10*3/uL (4.8-10.8)
[2023-01-06] MEDS: 0.9 % Sodium Chloride Flush 10 ML SYRINGE 5 ML IVFLUSH ×3 (09:21→20:39)
[2023-01-06] MEDS: amLODIPine Besylate 10 MG TABLET PO (09:21)
[2023-01-06] MEDS: Buprenorphine/Naloxone 8/2 mg FILM 1 FILM SUBLINGUAL ×3 (09:21→20:37)
[2023-01-06] MEDS: Sertraline HCL 25 MG TABLET 75 MG PO (09:21)
[2023-01-06] MEDS: busPIRone HCl 5 MG TABLET PO ×3 (09:21→20:38)
[2023-01-06] MEDS: carvediloL 12.5 MG TABLET 25 MG PO ×2 (09:21→20:37)
[2023-01-06] MEDS: 0.9 % Sodium Chloride Flush 3 ML SYRINGE IVFLUSH ×3 (09:21→20:39)
[2023-01-06] MEDS: lamiVUDine 150 MG TABLET 300 MG PO (09:22)
[2023-01-06] MEDS: Gabapentin 600 MG TABLET PO ×2 (09:22→20:38)
[2023-01-06] MEDS: Sodium Bicarbonate 650 MG TABLET 1300 MG PO ×2 (09:22→20:38)
[2023-01-06] MEDS: Dolutegravir Sodium 50 MG TABLET PO (09:24)
[2023-01-06 11:16] LABS: Glucose, Whole Blood 192 mg/dL (60-115)
[2023-01-06 12:08] VITALS: RESP 19
[2023-01-06] MEDS: HYDROmorphone HCl 0.5 MG/0.5 ML SYRINGE IVPUSH ×2 (12:08→20:38)
[2023-01-06] MEDS: Enoxaparin Sodium 30 MG/0.3 ML SYRINGE SUBCUT (12:08)
[2023-01-06] MEDS: levoFLOXacin/D5W 250 MG/50 ML PIGGYBACK 50 MG IV (12:08)
[2023-01-06 15:05] VITALS: BP 127/59; PULSE 75; RESP 16; TEMP 36.4; O2SAT 94
[2023-01-06 16:13] LABS: Glucose, Whole Blood 220 mg/dL (60-115)
[2023-01-06] MEDS: Insulin Lispro 100 UNIT/ML 3 ML VIAL SUBCUT ×3 (16:41→20:39)
[2023-01-06 19:14] VITALS: BP 142/68; PULSE 83; RESP 18; TEMP 36.7; O2SAT 96
--- NOTE | 2023-01-06 19:22 | PM.PNGS ---
Subjective Subjective Date of Service: 01/06/23 Interval history: pt feeling ok, eating more without nausea and the ostomy working Physical Exam Vital Signs: Vital Signs: Last Vital Signs Temp 98.1 F 01/06/23 19:14 Pulse 83 01/06/23 19:14 Resp 18 01/06/23 19:14 BP 142/68 H 01/06/23 19:14 Pulse Ox 96 01/06/23 19:14 O2 Del Method Room Air 01/06/23 19:14 O2 Flow Rate 1 12/31/22 15:15 FiO2 33 12/20/22 18:30 BMI result Body Mass Index 33.4 Const: General: cooperative, comfortable and no acute distress Orientation/consciousness: oriented to person, oriented to place and oriented to time Resp: Effort & Inspection: normal respiratory effort and able to speak in complete sentences Auscultation: clear to auscultation bilaterally Cardio: Rate: regular rate Rhythm: regular rhythm GI: Other: soft nontender nondistended ostomy looks good with liquid stool and gas. midline incsion dressings ok Inspection: Yes normal to inspection Neuro: General: oriented to person, oriented to place and oriented to time Extrem: General: Yes normal to inspection Objective Data Active Medications Albuterol Sulfate (Albuterol Sulfate 90 Mcg 8 Gm Inhaler) 2 puff INHALE RQID PRN PRN Reason: Respiratory Distress Amlodipine Besylate (Amlodipine Besylate 10 Mg Tablet) 10 mg PO DAILY [facility]S [facility]CLUDE 234 BEDS AT THE [facility]; Protocol Last Admin: 01/06/23 09:21 Dose: 10 mg Documented By: JEANINE Buprenorphine/Naloxone (Buprenorphine/Naloxone 8/2 Mg Film) 1 film SUBLINGUAL TID [facility]S INCLUDE 234 BEDS AT THE [facility] Last Admin: 01/06/23 15:27 Dose: 1 film Documented By: COTEMA Buspirone HCl (Buspirone Hcl 5 Mg Tablet) 5 mg PO TID [facility]S INCLUDE 234 BEDS AT THE [facility] Last Admin: 01/06/23 15:27 Dose: 5 mg Documented By: COTEMA Carvedilol (Carvedilol 12.5 Mg Tablet) 25 mg PO BID [facility]S INCLUDE 234 BEDS AT THE [facility]; Protocol Last Admin: 01/06/23 09:21 Dose: 25 mg Documented By: COTEMA Dextrose (Dextrose 50 % 25 Gm/50 Ml Syringe) 25 gm IVPUSH Q15M PRN; Protocol PRN Reason: per Hypoglycemia Standing Ord. Dextrose (Dextrose 50 % 25 Gm/50 Ml Syringe) 25 gm IVPUSH Q15M PRN; Protocol PRN Reason: per Hypoglycemia Standing Ord. Dolutegravir Sodium (Dolutegravir Sodium 50 Mg Tablet) 50 mg PO DAILY [facility]S INCLUDE 234 BEDS AT THE [facility] Last Admin: 01/06/23 09:24 Dose: 50 mg Documented By: PEG.COTEMA Enoxaparin Sodium (Enoxaparin Sodium 30 Mg/0.3 Ml Syringe) 30 mg SUBCUT Q24H COUNTS INCLUDE 234 BEDS AT THE [facility] Last Admin: 01/06/23 12:08 Dose: 30 mg Documented By: COTEMA Gabapentin (Gabapentin 600 Mg Tablet) 600 mg PO BID [facility]S INCLUDE 234 BEDS AT THE [facility] Last Admin: 01/06/23 09:22 Dose: 600 mg Documented By: COTEMA Glucose (Glucose Gel 15 Gm Gel..Gram.) 15 gm PO Q15M PRN; Protocol PRN Reason: per Hypoglycemia Standing Ord. Hydromorphone HCl (Hydromorphone Hcl 0.5 Mg/0.5 Ml Syringe) 0.5 mg IVPUSH Q2H PRN; Protocol PRN Reason: Pain, Severe (Pain Scale 7-10) Last Admin: 01/06/23 12:08 Dose: 0.5 mg Documented By: COTEMA Metronidazole (Flagyl) 500 mg in 100 mls @ 100 mls/hr IV Q8H COUNTS INCLUDE 234 BEDS AT THE [facility] Last Infusion: 01/06/23 14:55 Dose: Infused Documented By: COTEMA Levofloxacin (Levaquin) 250 mg in 50 mls @ 50 mls/hr IV Q24H COUNTS INCLUDE 234 BEDS AT THE [facility] Last Infusion: 01/06/23 13:11 Dose: Infused Documented By: COTEMA Insulin Human Lispro (Insulin Lispro 100 Unit/Ml 3 Ml Vial) 0 unit SUBCUT QIDAS COUNTS INCLUDE 234 BEDS AT THE [facility]; Protocol Last Admin: 01/06/23 16:41 Dose: 2 unit Documented By: COTEMA Insulin Human Lispro (Insulin Lispro 100 Unit/Ml 3 Ml Vial) 5 unit SUBCUT QIDAS COUNTS INCLUDE 234 BEDS AT THE [facility] Last Admin: 01/06/23 16:41 Dose: 5 unit Documented By: COTEMA Lamivudine (Lamivudine 150 Mg Tablet) 300 mg PO DAILY [facility]S INCLUDE 234 BEDS AT THE [facility] Last Admin: 01/06/23 09:22 Dose: 300 mg Documented By: COTEMA Loratadine (Loratadine 10 Mg Tablet) 10 mg PO DAILY PRN PRN Reason: Allergic Symptoms Last Admin: 12/26/22 05:28 Dose: 10 mg Documented By: SARAHI Omeprazole (Omeprazole 40 Mg Capsule.Dr) 40 mg PO BID@0630,1630 COUNTS INCLUDE 234 BEDS AT THE [facility] Last Admin: 01/06/23 15:26 Dose: 40 mg Documented By: JEANINE Ondansetron HCl (Ondansetron Hcl 4 Mg/2 Ml Vial) 4 mg IVPUSH Q8H PRN PRN Reason: Nausea and Vomiting Last Admin: 12/27/22 11:36 Dose: 4 mg Documented By: KEISHA Oxycodone HCl (Oxycodone Hcl Immed Release 5 Mg Tablet) 5 mg PO Q4H PRN PRN Reason: Pain, Mild (Pain Scale 1-3) Last Admin: 01/06/23 15:26 Dose: 5 mg Documented By: JEANINE Pharmacy Consult (Consult Rx Parenteral Nutrition Ordering) 1 each MISCELLANE DAILY PRN PRN Reason: Consult order Sertraline HCl (Sertraline Hcl 25 Mg Tablet) 75 mg PO DAILY [facility]S INCLUDE 234 BEDS AT THE [facility] Last Admin: 01/06/23 09:21 Dose: 75 mg Documented By: JEANINE Sodium Bicarbonate (Sodium Bicarbonate 650 Mg Tablet) 1,300 mg PO BID COUNTS INCLUDE 234 BEDS AT THE [facility] Last Admin: 01/06/23 09:22 Dose: 1,300 mg Documented By: BRENDANEMA Sodium Chloride (0.9 % Sodium Chloride Flush 3 Ml Syringe) 3 ml IVFLUSH QSHIFT COUNTS INCLUDE 234 BEDS AT THE [facility] Last Admin: 01/06/23 15:27 Dose: 3 ml Documented By: BRENDANEMA Sodium Chloride (0.9 % Sodium Chloride Flush 10 Ml Syringe) 5 ml IVFLUSH TID COUNTS INCLUDE 234 BEDS AT THE [facility] Last Admin: 01/06/23 15:27 Dose: 5 ml Documented By: JEANINE Trazodone HCl (Trazodone Hcl 100 Mg Tablet) 100 mg PO BEDTIME PRN PRN Reason: Sleep Last Admin: 01/03/23 20:19 Dose: 100 mg Documented By: OZORALB Trolamine Salicylate (Trolamine Salicylate 10 % Cream 85 Gm Tube) 1 appl TOPICAL QID PRN; Protocol PRN Reason: hand pain Last Admin: 01/04/23 23:32 Dose: 1 appl Documented By: ODRISM Labs 01/06/23 06:38 01/06/23 06:38 Labs: Laboratory Results - last 24 hr 01/05/23 01/06/23 01/06/23 20:14 06:38 06:52 MCV 100.7 H MCH 33.6 H MCHC 33.3 RDW 13.9 Plt Count 723 H MPV 10.2 Immature Gran % (Auto) Cancelled Neut % (Auto) Cancelled Lymph % (Auto) Cancelled [place] % (Auto) Cancelled Eos % (Auto) Cancelled Baso % (Auto) Cancelled Lymph # (Auto) Cancelled [place] # (Auto) Cancelled Eos # (Auto) Cancelled Baso # (Auto) Cancelled Abs Immat Gran (auto) Cancelled Absolute Neuts (auto) Cancelled Absolute Nucleated RBC 0.080 H Nucleated RBC % (auto) 0.4 H Neutrophils % (Manual) 73 Band Neutrophils % 5 Lymphocytes % (Manual) 8 L Atypical Lymphs % (Man) 1 Monocytes % (Manual) 10 Eosinophils % (Manual) 2 Metamyelocytes % 1 Abs Neuts (Manual) 14.6 H Lymphocytes # (Manual) 1.5 Atyp Lymphs # (Manual) 0.2 Monocytes # (Manual) 1.9 H Eosinophils # (Manual) 0.4 Metamyelocytes # 0.2 Nucleated RBCs 1 H Platelet Estimate INCREASED Large Platelets PRESENT Plt Morphology Comment NOTED RBC Morphology NOTED Polychromasia 1+ (0-2) Macrocytosis 1+ (5-14) [place] Cells 2+ (3-5) Acanthocytes (Spur) 1+ (0-2) Schistocytes 1+ (0-2) Anion Gap 10 L Estim Creat Clear Calc 39.8 Estimated GFR 38 POC Glucose 182 H 137 H Random Glucose 161 H Calcium 9.0 01/06/23 01/06/23 11:12 16:09 MCV MCH MCHC RDW Plt Count MPV Immature Gran % (Auto) Neut % (Auto) Lymph % (Auto) [place] % (Auto) Eos % (Auto) Baso % (Auto) Lymph # (Auto) [place] # (Auto) Eos # (Auto) Baso # (Auto) Abs Immat Gran (auto) Absolute Neuts (auto) Absolute Nucleated RBC Nucleated RBC % (auto) Neutrophils % (Manual) Band Neutrophils % Lymphocytes % (Manual) Atypical Lymphs % (Man) Monocytes % (Manual) Eosinophils % (Manual) Metamyelocytes % Abs Neuts (Manual) Lymphocytes # (Manual) Atyp Lymphs # (Manual) Monocytes # (Manual) Eosinophils # (Manual) Metamyelocytes # Nucleated RBCs Platelet Estimate Large Platelets Plt Morphology Comment RBC Morphology Polychromasia Macrocytosis Balta Cells Acanthocytes (Spur) Schistocytes Anion Gap Estim Creat Clear Calc Estimated GFR POC Glucose 192 H 220 H Random Glucose Calcium Procedures Date of Service Date of Service: 01/06/23 Progress Note: A&P Assessment and plan (1) Small bowel obstruction: Status: Acute Plan Pt s/p expl laparotomy for sbo with LEVI and SBR and 4 days ago with lower incision opened and purulent drainage - wbc coming down now on antibx, eating better and ostomy functioning, plan - cont to encourage po intake and ambulate dressing changes med team following for med issues dvt prophylaxis Time Spent With Patient Time: Total time managing care of this patient today ____ minutes. Quality Stroke Does the patient have a stroke diagnosis?: No VTE Prior VTE?: No VTE Risk Level:: Surgical - moderate VTE Device Contraindication: N/A - Device Ordered VTE Drug Contraindication: N/A - Med Ordered
[2023-01-06 20:23] LABS: Glucose, Whole Blood 150 mg/dL (60-115)
[2023-01-07 03:31] VITALS: BP 128/60; PULSE 81; RESP 18; TEMP 36.2; O2SAT 95
[2023-01-07] MEDS: oxyCODONE HCl Immed Release 5 MG TABLET PO ×2 (04:26→09:28)
[2023-01-07] MEDS: Omeprazole 40 MG CAPSULE.DR PO ×2 (05:12→15:24)
[2023-01-07] MEDS: metroNIDAZOLE/NS 500 MG/100 ML PIGGYBACK 100 MG IV ×3 (05:12→21:34)
[2023-01-07 05:27] VITALS: RESP 16
[2023-01-07 05:50] LABS: Anion Gap 10 (12-20); Blood Urea Nitrogen 52 mg/dL (9-16); Carbon Dioxide 18 mmol/L (22-29); Chloride 113 mmol/L (96-108); Estimated Glomerular Filt Rate 39; Glucose Random 172 mg/dL (60-115); Potassium 4.8 mmol/L (3.3-5.1); Sodium 136 mmol/L (135-145)
[2023-01-07 07:04] LABS: Glucose, Whole Blood 156 mg/dL (60-115)
[2023-01-07 07:20] VITALS: BP 150/74; PULSE 73; RESP 16; TEMP 36.6; O2SAT 96
[2023-01-07] MEDS: amLODIPine Besylate 10 MG TABLET PO (09:27)
[2023-01-07] MEDS: Sodium Bicarbonate 650 MG TABLET 1300 MG PO ×2 (09:27→20:38)
[2023-01-07] MEDS: Sertraline HCL 25 MG TABLET 75 MG PO (09:27)
[2023-01-07] MEDS: lamiVUDine 150 MG TABLET 300 MG PO (09:27)
[2023-01-07] MEDS: busPIRone HCl 5 MG TABLET PO ×3 (09:27→20:38)
[2023-01-07] MEDS: Buprenorphine/Naloxone 8/2 mg FILM 1 FILM SUBLINGUAL ×3 (09:27→20:38)
[2023-01-07] MEDS: Dolutegravir Sodium 50 MG TABLET PO (09:27)
[2023-01-07] MEDS: Gabapentin 600 MG TABLET PO ×2 (09:28→20:38)
[2023-01-07] MEDS: carvediloL 12.5 MG TABLET 25 MG PO ×2 (09:28→20:38)
[2023-01-07] MEDS: 0.9 % Sodium Chloride Flush 10 ML SYRINGE 5 ML IVFLUSH ×3 (09:28→20:39)
[2023-01-07] MEDS: 0.9 % Sodium Chloride Flush 3 ML SYRINGE IVFLUSH ×3 (09:28→21:35)
[2023-01-07 11:12] LABS: Glucose, Whole Blood 166 mg/dL (60-115)
[2023-01-07] MEDS: Enoxaparin Sodium 30 MG/0.3 ML SYRINGE SUBCUT (11:55)
[2023-01-07] MEDS: levoFLOXacin/D5W 250 MG/50 ML PIGGYBACK 50 MG IV (11:55)
[2023-01-07 11:56] VITALS: RESP 19
[2023-01-07] MEDS: HYDROmorphone HCl 0.5 MG/0.5 ML SYRINGE IVPUSH ×2 (11:56→19:22)
--- NOTE | 2023-01-07 13:57 | P.PNGS_ITS ---
Subjective Subjective Date of Service: 01/07/23 Interval history: feels good, walked in [place] today vry well, eating no problems and ostomy working well Physical Exam 2 Vital Signs: Vital Signs: Last Vital Signs Temp 97.8 F 01/07/23 07:20 Pulse 73 01/07/23 07:20 Resp 19 01/07/23 11:56 BP 150/74 H 01/07/23 07:20 Pulse Ox 96 01/07/23 07:20 O2 Del Method Room Air 01/07/23 07:20 O2 Flow Rate 1 12/31/22 15:15 FiO2 33 12/20/22 18:30 BMI result Body Mass Index 33.4 Const: General: cooperative, healthy appearing, comfortable and no acute distress Resp: Effort & Inspection: normal respiratory effort Auscultation: clear to auscultation bilaterally Cardio: Rate: regular rate Rhythm: regular rhythm GI: Other: abdo soft and nontender nondistended ostomy working and looks good nd wounds are open deep but clean no erythema Skin: General skin exam: no rashes or lesions noted Objective Data Active Medications Albuterol Sulfate (Albuterol Sulfate 90 Mcg 8 Gm Inhaler) 2 puff INHALE RQID PRN PRN Reason: Respiratory Distress Amlodipine Besylate (Amlodipine Besylate 10 Mg Tablet) 10 mg PO DAILY [facility]; Protocol Last Admin: 01/07/23 09:27 Dose: 10 mg Documented By: JEANINE Buprenorphine/Naloxone (Buprenorphine/Naloxone 8/2 Mg Film) 1 film SUBLINGUAL TID [facility] Last Admin: 01/07/23 09:27 Dose: 1 film Documented By: JEANINE Buspirone HCl (Buspirone Hcl 5 Mg Tablet) 5 mg PO TID [facility] Last Admin: 01/07/23 09:27 Dose: 5 mg Documented By: BRENDANEMA Carvedilol (Carvedilol 12.5 Mg Tablet) 25 mg PO BID [facility]; Protocol Last Admin: 01/07/23 09:28 Dose: 25 mg Documented By: COTEMA Dextrose (Dextrose 50 % 25 Gm/50 Ml Syringe) 25 gm IVPUSH Q15M PRN; Protocol PRN Reason: per Hypoglycemia Standing Ord. Dextrose (Dextrose 50 % 25 Gm/50 Ml Syringe) 25 gm IVPUSH Q15M PRN; Protocol PRN Reason: per Hypoglycemia Standing Ord. Dolutegravir Sodium (Dolutegravir Sodium 50 Mg Tablet) 50 mg PO DAILY [facility] Last Admin: 01/07/23 09:27 Dose: 50 mg Documented By: COTEMA Enoxaparin Sodium (Enoxaparin Sodium 30 Mg/0.3 Ml Syringe) 30 mg SUBCUT Q24H [facility] Last Admin: 01/07/23 11:55 Dose: 30 mg Documented By: COTEMA Gabapentin (Gabapentin 600 Mg Tablet) 600 mg PO BID [facility] Last Admin: 01/07/23 09:28 Dose: 600 mg Documented By: COTEMA Glucose (Glucose Gel 15 Gm Gel..Gram.) 15 gm PO Q15M PRN; Protocol PRN Reason: per Hypoglycemia Standing Ord. Hydromorphone HCl (Hydromorphone Hcl 0.5 Mg/0.5 Ml Syringe) 0.5 mg IVPUSH Q2H PRN; Protocol PRN Reason: Pain, Severe (Pain Scale 7-10) Last Admin: 01/07/23 11:56 Dose: 0.5 mg Documented By: COTEMA Metronidazole (Flagyl) 500 mg in 100 mls @ 100 mls/hr IV Q8H [facility] Last Admin: 01/07/23 13:53 Dose: 100 mls/hr Documented By: COTEMA Levofloxacin (Levaquin) 250 mg in 50 mls @ 50 mls/hr IV Q24H [facility] Last Infusion: 01/07/23 13:03 Dose: Infused Documented By: BRENDANEMA Insulin Human Lispro (Insulin Lispro 100 Unit/Ml 3 Ml Vial) 0 unit SUBCUT QIDACHS [facility]; Protocol Last Admin: 01/07/23 11:18 Dose: Not Given Documented By: COTEMA Non-Admin Reason: No Insulin Coverage Insulin Human Lispro (Insulin Lispro 100 Unit/Ml 3 Ml Vial) 5 unit SUBCUT QIDACHS [facility] Last Admin: 01/07/23 11:19 Dose: Not Given Documented By: JEANINE Non-Admin Reason: No Insulin Coverage Lamivudine (Lamivudine 150 Mg Tablet) 300 mg PO DAILY [facility] Last Admin: 01/07/23 09:27 Dose: 300 mg Documented By: COTEMA Loratadine (Loratadine 10 Mg Tablet) 10 mg PO DAILY PRN PRN Reason: Allergic Symptoms Last Admin: 12/26/22 05:28 Dose: 10 mg Documented By: SARAHI Omeprazole (Omeprazole 40 Mg Capsule.Dr) 40 mg PO BID@0630,1630 [facility] Last Admin: 01/07/23 05:12 Dose: 40 mg Documented By: WAYLON Ondansetron HCl (Ondansetron Hcl 4 Mg/2 Ml Vial) 4 mg IVPUSH Q8H PRN PRN Reason: Nausea and Vomiting Last Admin: 12/27/22 11:36 Dose: 4 mg Documented By: KEISHA Oxycodone HCl (Oxycodone Hcl Immed Release 5 Mg Tablet) 5 mg PO Q4H PRN PRN Reason: Pain, Mild (Pain Scale 1-3) Last Admin: 01/07/23 09:28 Dose: 5 mg Documented By: JEANINE Pharmacy Consult (Consult Rx Parenteral Nutrition Ordering) 1 each MISCELLANE DAILY PRN PRN Reason: Consult order Sertraline HCl (Sertraline Hcl 25 Mg Tablet) 75 mg PO DAILY [facility] Last Admin: 01/07/23 09:27 Dose: 75 mg Documented By: JEANINE Sodium Bicarbonate (Sodium Bicarbonate 650 Mg Tablet) 1,300 mg PO BID [facility] Last Admin: 01/07/23 09:27 Dose: 1,300 mg Documented By: BRENDANEMA Sodium Chloride (0.9 % Sodium Chloride Flush 3 Ml Syringe) 3 ml IVFLUSH QSHIFT [facility] Last Admin: 01/07/23 09:28 Dose: 3 ml Documented By: COTEMA Sodium Chloride (0.9 % Sodium Chloride Flush 10 Ml Syringe) 5 ml IVFLUSH TID [facility] Last Admin: 01/07/23 13:53 Dose: 5 ml Documented By: JEANINE Trazodone HCl (Trazodone Hcl 100 Mg Tablet) 100 mg PO BEDTIME PRN PRN Reason: Sleep Last Admin: 01/03/23 20:19 Dose: 100 mg Documented By: WAYLON Trolamine Salicylate (Trolamine Salicylate 10 % Cream 85 Gm Tube) 1 appl TOPICAL QID PRN; Protocol PRN Reason: hand pain Last Admin: 01/04/23 23:32 Dose: 1 appl Documented By: TALYARISM Labs 01/06/23 06:38 01/07/23 05:15 Labs: Laboratory Results - last 24 hr 01/06/23 01/06/23 01/07/23 16:09 20:18 05:15 Anion Gap 10 L Estim Creat Clear Calc 41.0 Estimated GFR 39 POC Glucose 220 H 150 H Random Glucose 172 H Calcium 9.0 01/07/23 01/07/23 06:58 11:09 Anion Gap Estim Creat Clear Calc Estimated GFR POC Glucose 156 H 166 H Random Glucose Calcium Procedures Date of Service Date of Service: 01/07/23 Progress Note: A&P Assessment and plan (1) Small bowel obstruction: Status: Acute Assessment and Plan: pt doing well s/p expl lap and LEVI and SBR and ileostomy cont with increasing po intake stay hydrated with po liquids to balance the ostomy output po pain meds finish course of iv antibx. Time Spent With Patient Time: Total time managing care of this patient today ____ minutes. Quality Stroke Does the patient have a stroke diagnosis?: No VTE Prior VTE?: No VTE Risk Level:: Surgical - moderate VTE Device Contraindication: N/A - Device Ordered VTE Drug Contraindication: N/A - Med Ordered
[2023-01-07 15:00] VITALS: BP 136/67; PULSE 75; RESP 16; TEMP 36.3; O2SAT 95
[2023-01-07] MEDS: oxyCODONE HCl Immed Release 5 MG TABLET 10 MG PO (15:25)
[2023-01-07 16:15] LABS: Glucose, Whole Blood 178 mg/dL (60-115)
[2023-01-07 19:11] VITALS: BP 152/71; PULSE 74; RESP 15; TEMP 36.2; O2SAT 96
[2023-01-07 20:32] LABS: Glucose, Whole Blood 170 mg/dL (60-115)
[2023-01-07] MEDS: Trolamine Salicylate 10 % Cream 85 GM TUBE 1 APPL TOPICAL (20:42)
[2023-01-08] MEDS: HYDROmorphone HCl 0.5 MG/0.5 ML SYRINGE IVPUSH ×2 (02:52→19:16)
[2023-01-08 03:18] VITALS: BP 135/64; PULSE 69; RESP 16; TEMP 36.1; O2SAT 95
[2023-01-08] MEDS: Omeprazole 40 MG CAPSULE.DR PO ×2 (05:31→16:20)
[2023-01-08] MEDS: metroNIDAZOLE/NS 500 MG/100 ML PIGGYBACK 100 MG IV ×2 (05:31→22:04)
[2023-01-08 06:11] LABS: Albumin Level 2.2 g/dL (3.5-5.0); Anion Gap 11 (12-20); Blood Urea Nitrogen 49 mg/dL (9-16); Calcium 8.6 mg/dL (8.4-10.2); Carbon Dioxide 19 mmol/L (22-29); Chloride 113 mmol/L (96-108); Creatinine Clr Calc Pharmacy 42.2; Estimated Glomerular Filt Rate 41; Glucose Random 157 mg/dL (60-115); Magnesium 1.6 mg/dL (1.6-2.6); Phosphorus 3.5 mg/dL (2.7-4.5); Potassium 4.6 mmol/L (3.3-5.1); Sodium 138 mmol/L (135-145)
[2023-01-08 07:14] VITALS: BP 136/71; PULSE 62; RESP 16; TEMP 36.4; O2SAT 94
[2023-01-08 07:37] LABS: Glucose, Whole Blood 140 mg/dL (60-115)
[2023-01-08] MEDS: Gabapentin 600 MG TABLET PO ×2 (09:01→20:39)
[2023-01-08] MEDS: lamiVUDine 150 MG TABLET 300 MG PO (09:01)
[2023-01-08] MEDS: Sertraline HCL 25 MG TABLET 75 MG PO (09:02)
[2023-01-08] MEDS: amLODIPine Besylate 10 MG TABLET PO (09:02)
[2023-01-08] MEDS: Dolutegravir Sodium 50 MG TABLET PO (09:02)
[2023-01-08] MEDS: Sodium Bicarbonate 650 MG TABLET 1300 MG PO ×2 (09:03→20:39)
[2023-01-08] MEDS: Buprenorphine/Naloxone 8/2 mg FILM 1 FILM SUBLINGUAL ×3 (09:03→20:39)
[2023-01-08] MEDS: 0.9 % Sodium Chloride Flush 3 ML SYRINGE IVFLUSH ×2 (09:03→20:40)
[2023-01-08] MEDS: 0.9 % Sodium Chloride Flush 10 ML SYRINGE 5 ML IVFLUSH ×2 (09:06→20:40)
[2023-01-08] MEDS: carvediloL 12.5 MG TABLET 25 MG PO ×2 (09:17→20:39)
[2023-01-08] MEDS: busPIRone HCl 5 MG TABLET PO ×3 (09:17→20:39)
[2023-01-08] MEDS: oxyCODONE HCl Immed Release 5 MG TABLET 10 MG PO ×3 (09:17→22:10)
--- NOTE | 2023-01-08 10:04 | MHC.CLN ---
F/U CONSULT FOR SKIN INTEGRITY. STAGE II PRESSURE INJURY TO BUTTOCK. DIET=DIABETIC 2000 KCALS - APPROPRIATE. ENSURE MAX BID TO INCREASE NUTRITIONAL INTAKE AND PROMOTE WOUND HEALING. PROVIDES 300 KCALS, 60 G PROTEIN. INTAKE APPEARS IMPROVED WITH MOST MEALS 50-100%. FOLLOW FOR PO INTAKE AND WOUND HEALING.
[2023-01-08] MEDS: Trolamine Salicylate 10 % Cream 85 GM TUBE 1 APPL TOPICAL (10:24)
--- NOTE | 2023-01-08 11:14 | PM.PNGS ---
Subjective Subjective Date of Service: 01/08/23 Interval history: No events over the weekend. Feels overall improved. Tolerating solid diet without nausea or vomiting. Pain is ok. Ostomy functioning. Ambulating on own with walker. Physical Exam Vital Signs: Vital Signs: Last Vital Signs Temp 97.5 F 01/08/23 07:14 Pulse 62 01/08/23 07:14 Resp 16 01/08/23 07:14 BP 136/71 01/08/23 07:14 Pulse Ox 94 01/08/23 07:14 O2 Del Method Room Air 01/08/23 07:14 O2 Flow Rate 1 12/31/22 15:15 FiO2 33 12/20/22 18:30 BMI result Body Mass Index 33.4 Const: General: comfortable, no acute distress and alert Orientation/consciousness: patient oriented x3 Resp: Effort & Inspection: normal respiratory effort GI: Inspection: No distended and Yes incision (wound openings with scant drainage, packing removed) Palpation (GI): Soft to palpation, Tenderness to palpation present (GI) (incisional, mild), no guarding and not rigid Skin: General skin exam: no rashes or lesions noted Neuro: General: patient oriented x3 Objective Data Active Medications Albuterol Sulfate (Albuterol Sulfate 90 Mcg 8 Gm Inhaler) 2 puff INHALE RQID PRN PRN Reason: Respiratory Distress Amlodipine Besylate (Amlodipine Besylate 10 Mg Tablet) 10 mg PO DAILY [facility]; Protocol Last Admin: 01/08/23 09:02 Dose: 10 mg Documented By: RAVI Buprenorphine/Naloxone (Buprenorphine/Naloxone 8/2 Mg Film) 1 film SUBLINGUAL TID [facility] Last Admin: 01/08/23 09:03 Dose: 1 film Documented By: RAVI Buspirone HCl (Buspirone Hcl 5 Mg Tablet) 5 mg PO TID [facility] Last Admin: 01/08/23 09:17 Dose: 5 mg Documented By: RAVI Carvedilol (Carvedilol 12.5 Mg Tablet) 25 mg PO BID [facility]; Protocol Last Admin: 01/08/23 09:17 Dose: 25 mg Documented By: RAVI Dextrose (Dextrose 50 % 25 Gm/50 Ml Syringe) 25 gm IVPUSH Q15M PRN; Protocol PRN Reason: per Hypoglycemia Standing Ord. Dextrose (Dextrose 50 % 25 Gm/50 Ml Syringe) 25 gm IVPUSH Q15M PRN; Protocol PRN Reason: per Hypoglycemia Standing Ord. Dolutegravir Sodium (Dolutegravir Sodium 50 Mg Tablet) 50 mg PO DAILY [facility] Last Admin: 01/08/23 09:02 Dose: 50 mg Documented By: RAVI Enoxaparin Sodium (Enoxaparin Sodium 30 Mg/0.3 Ml Syringe) 30 mg SUBCUT Q24H [facility] Last Admin: 01/07/23 11:55 Dose: 30 mg Documented By: JEANINE Gabapentin (Gabapentin 600 Mg Tablet) 600 mg PO BID [facility] Last Admin: 01/08/23 09:01 Dose: 600 mg Documented By: RAVI Glucose (Glucose Gel 15 Gm Gel..Gram.) 15 gm PO Q15M PRN; Protocol PRN Reason: per Hypoglycemia Standing Ord. Hydromorphone HCl (Hydromorphone Hcl 0.5 Mg/0.5 Ml Syringe) 0.5 mg IVPUSH Q6H PRN; Protocol PRN Reason: Pain, Severe (Pain Scale 7-10) Last Admin: 01/08/23 02:52 Dose: 0.5 mg Documented By: SARAHI Metronidazole (Flagyl) 500 mg in 100 mls @ 100 mls/hr IV Q8H [facility] Last Infusion: 01/08/23 06:47 Dose: Infused Documented By: SARAHI Levofloxacin (Levaquin) 250 mg in 50 mls @ 50 mls/hr IV Q24H [facility] Last Infusion: 01/07/23 13:03 Dose: Infused Documented By: JEANINE Insulin Human Lispro (Insulin Lispro 100 Unit/Ml 3 Ml Vial) 0 unit SUBCUT QIDACHS [facility]; Protocol Last Admin: 01/08/23 08:52 Dose: Not Given Documented By: RAVI Non-Admin Reason: No Insulin Coverage Insulin Human Lispro (Insulin Lispro 100 Unit/Ml 3 Ml Vial) 5 unit SUBCUT QIDACHS [facility] Last Admin: 01/08/23 09:01 Dose: Not Given Documented By: RAVI Non-Admin Reason: No Insulin Coverage Lamivudine (Lamivudine 150 Mg Tablet) 300 mg PO DAILY [facility] Last Admin: 01/08/23 09:01 Dose: 300 mg Documented By: RAVI Loratadine (Loratadine 10 Mg Tablet) 10 mg PO DAILY PRN PRN Reason: Allergic Symptoms Last Admin: 12/26/22 05:28 Dose: 10 mg Documented By: SARAHI Omeprazole (Omeprazole 40 Mg Capsule.Dr) 40 mg PO BID@0630,1630 [facility] Last Admin: 01/08/23 05:31 Dose: 40 mg Documented By: SARAHI Ondansetron HCl (Ondansetron Hcl 4 Mg/2 Ml Vial) 4 mg IVPUSH Q8H PRN PRN Reason: Nausea and Vomiting Last Admin: 12/27/22 11:36 Dose: 4 mg Documented By: KEISHA Oxycodone HCl (Oxycodone Hcl Immed Release 5 Mg Tablet) 5 mg PO Q4H PRN PRN Reason: Pain, Mild (Pain Scale 1-3) Last Admin: 01/07/23 09:28 Dose: 5 mg Documented By: COTEMA Oxycodone HCl (Oxycodone Hcl Immed Release 5 Mg Tablet) 10 mg PO Q4H PRN PRN Reason: Pain, Severe (Pain Scale 7-10) Last Admin: 01/08/23 09:17 Dose: 10 mg Documented By: RAVI Pharmacy Consult (Consult Rx Parenteral Nutrition Ordering) 1 each MISCELLANE DAILY PRN PRN Reason: Consult order Sertraline HCl (Sertraline Hcl 25 Mg Tablet) 75 mg PO DAILY [facility] Last Admin: 01/08/23 09:02 Dose: 75 mg Documented By: RAVI Sodium Bicarbonate (Sodium Bicarbonate 650 Mg Tablet) 1,300 mg PO BID [facility] Last Admin: 01/08/23 09:03 Dose: 1,300 mg Documented By: RAVI Sodium Chloride (0.9 % Sodium Chloride Flush 3 Ml Syringe) 3 ml IVFLUSH QSHIFT [facility] Last Admin: 01/08/23 09:03 Dose: 3 ml Documented By: RAVI Sodium Chloride (0.9 % Sodium Chloride Flush 10 Ml Syringe) 5 ml IVFLUSH TID [facility] Last Admin: 01/08/23 09:06 Dose: 5 ml Documented By: RAVI Trazodone HCl (Trazodone Hcl 100 Mg Tablet) 100 mg PO BEDTIME PRN PRN Reason: Sleep Last Admin: 01/03/23 20:19 Dose: 100 mg Documented By: WAYLON Trolamine Salicylate (Trolamine Salicylate 10 % Cream 85 Gm Tube) 1 appl TOPICAL QID PRN; Protocol PRN Reason: hand pain Last Admin: 01/08/23 10:24 Dose: 1 appl Documented By: RAVI Labs 01/06/23 06:38 01/08/23 05:28 Labs: Laboratory Results - last 24 hr 01/07/23 01/07/23 01/08/23 16:07 20:14 05:28 Anion Gap 11 L Estim Creat Clear Calc 42.2 Estimated GFR 41 POC Glucose 178 H 170 H Random Glucose 157 H Calcium 8.6 Phosphorus 3.5 Magnesium 1.6 Albumin 2.2 L 01/08/23 07:28 Anion Gap Estim Creat Clear Calc Estimated GFR POC Glucose 140 H Random Glucose Calcium Phosphorus Magnesium Albumin Procedures Date of Service Date of Service: 01/08/23 Progress Note: A&P Assessment and plan (1) S/P exploratory laparotomy: Status: Acute (2) Small bowel obstruction: Status: Acute (3) Acute kidney injury superimposed on CKD: Status: Acute Plan Superficial wound infection improving, packing removed and wound openings gently packed with fluffs. WBC has improved. Will repeat tomorrow. PO intake increasing, no nausea or vomiting or evidence of SBO. Ostomy functioning. Begin dispo planning. If WBC improved tomorrow, possibly dc to home tomorrow or the next day. Patient comfortable with plan. Time Spent With Patient Time: Total time managing care of this patient today ____ minutes. Quality Stroke Does the patient have a stroke diagnosis?: No VTE Prior VTE?: No VTE Risk Level:: Surgical - moderate VTE Device Contraindication: N/A - Device Ordered VTE Drug Contraindication: N/A - Med Ordered
[2023-01-08 11:27] LABS: Glucose, Whole Blood 219 mg/dL (60-115)
[2023-01-08] MEDS: Insulin Lispro 100 UNIT/ML 3 ML VIAL SUBCUT ×2 (11:38→11:39)
[2023-01-08] MEDS: Enoxaparin Sodium 30 MG/0.3 ML SYRINGE SUBCUT (11:38)
[2023-01-08] MEDS: levoFLOXacin/D5W 250 MG/50 ML PIGGYBACK 50 MG IV (12:53)
[2023-01-08 15:46] VITALS: BP 153/72; PULSE 77; RESP 18; TEMP 36.1; O2SAT 96
--- NOTE | 2023-01-08 15:47 | MHC.CM.PN ---
per rounds pt is a surgical pt ,he is not ready for dc
[2023-01-08 16:37] LABS: Glucose, Whole Blood 175 mg/dL (60-115)
--- NOTE | 2023-01-08 19:23 | HO.SKINPHOTO ---
Location:coccyx Category: Stage: Length: Width: Depth: cm Location: Category: Stage: Length: Width: Depth: cm Location: Category: Stage: Length: Width: Depth: cm Location: Category: Stage: Length: Width: Depth: cm Location: Category: Stage: Length: Width: Depth: cm Location: Category: Stage: Length: Width: Depth: cm
[2023-01-08 20:00] VITALS: BP 130/72; PULSE 65; RESP 17; TEMP 36.7; O2SAT 96
--- NOTE | 2023-01-08 20:34 | P.PNNP_ITS ---
Subjective Subjective Date of Service: 01/08/23 Interval history: Seen and examied, events noted Physical Exam 2 Vital Signs: Vital Signs: Last Vital Signs Temp 98.1 F 01/08/23 20:00 Pulse 65 01/08/23 20:00 Resp 17 01/08/23 20:00 BP 130/72 01/08/23 20:00 Pulse Ox 96 01/08/23 20:00 O2 Del Method Room Air 01/08/23 20:00 O2 Flow Rate 1 12/31/22 15:15 FiO2 33 12/20/22 18:30 BMI result Body Mass Index 33.4 Const: Other: General awake alert x3,in no acute distress. NG with bilious drainage Neck is supple no JVD. CVS regular rate rhythm, Respiratory lungs clear to auscultation, no respiratory distress, no rhonchi. Gastrointestinal abdomen soft, mid abdominal tenderness to palpation, bowel sounds audible, no guarding , no rigidity, colostomy bag with light brown liquid. Extremities no edema. Neuro nonfocal ,speech clear. Skin no rash appropriate affect General: cooperative, comfortable, no acute distress, well developed and alert Nutritional Appearance: well nourished and obese O rientation/consciousness: patient oriented x3 Limitations: no limitations and No language barrier HEENT: Other: NGT in place, scant bilious output Eyes: Sclerae: sclerae normal EOM: EOMs intact bilaterally Neck: Neck: Yes normal visual inspection and Yes supple Resp: Effort & Inspection: normal respiratory effort, no audible wheezes, no cough, no respiratory distress and no stridor Cardio: Jugular venous distension: no JVD Palpation: no palpable S3 H eart sounds: no murmurs and no rubs GI: Other: incision continues with purulent output from superior and inferior aspect; no significant erythema ostomy with liquid output Inspection: Yes normal to inspection, No distended, Yes incision (clean) and Yes other (ostomy bag in place) Palpation (GI): Soft to palpation, Tenderness to palpation present (GI) (mild incisional) in the LLQ and in the RLQ, no guarding, not rigid and No Rebound tenderness present Percussion: Yes normal to percussion and Yes tympanic to percussion Auscultation: normal bowel sounds Rectal Exam - Male: Yes deferred Skin: General skin exam: no rashes or lesions noted and dry skin Rashes: no rashes Neuro: General: patient oriented x3, moves all extremities and no focal motor deficits Motor exam (neuro): No Asterixis during motor activity present Extrem: General: Yes normal to inspection, Yes full ROM and Yes no clubbing, cyanosis or edema Psych: Appearance: grossly normal Objective Data Labs 01/06/23 06:38 01/08/23 05:28 Labs: Laboratory Results - last 24 hr 01/08/23 01/08/23 01/08/23 05:28 07:28 11:02 Sodium 138 Potassium 4.6 Chloride 113 H Carbon Dioxide 19 L Anion Gap 11 L BUN 49 H Creatinine 1.67 H Estim Creat Clear Calc 42.2 Estimated GFR 41 POC Glucose 140 H 219 H Random Glucose 157 H Calcium 8.6 Phosphorus 3.5 Magnesium 1.6 Albumin 2.2 L 01/08/23 16:31 Sodium Potassium Chloride Carbon Dioxide Anion Gap BUN Creatinine Estim Creat Clear Calc Estimated GFR POC Glucose 175 H Random Glucose Calcium Phosphorus Magnesium Albumin Microbiology Microbiology Results: Microbiology 12/27/22 07:55 Incision Gram Stain - Final 12/27/22 07:55 Incision Routine Culture - Final Enterobacter cloacae complex Pseudomonas aeruginosa Viridans streptococcus group Procedures Date of Service Date of Service: 01/08/23 Assessment & Plan Assessment and plan (1) CKD (chronic kidney disease): Status: Acute (2) Acute kidney injury superimposed on CKD: Status: Acute (3) Severe anemia: Status: Acute Plan 1. MARY JO with FeNa >1% after SBO and Exlap. ATN resolved 2. CKD stage IIIb BL Cr 1.7-2.0mg/dL 3. NAGMA 2/2 RTA 4 Plan: - start sodium bicarbonate 1300mg BID chronically even after discharge - no diuresis - rest of MAR reviewed, all is clear - RTANE WILL SIGN OFF PLEASE CALL IF QUESTIONS Time Spent With Patient Time: Total time managing care of this patient today ____ minutes. Progress Note: Quality Stroke Does the patient have a stroke diagnosis?: No
[2023-01-08 20:43] LABS: Glucose, Whole Blood 188 mg/dL (60-115)
[2023-01-09 04:00] VITALS: BP 135/60; PULSE 60; RESP 17; TEMP 36.6; O2SAT 96
[2023-01-09] MEDS: metroNIDAZOLE/NS 500 MG/100 ML PIGGYBACK 100 MG IV (05:18)
[2023-01-09] MEDS: Omeprazole 40 MG CAPSULE.DR PO ×2 (05:19→16:44)
[2023-01-09] MEDS: HYDROmorphone HCl 0.5 MG/0.5 ML SYRINGE IVPUSH ×2 (05:24→13:19)
[2023-01-09 06:40] LABS: Basophils Absolute Auto 0.1 X10*3/uL (0.0-0.2); Basophils Percent Auto 0.4 % (0-2); Eosinophils Absolute Auto 0.2 X10*3/uL (0.0-0.4); Eosinophils Percent Auto 0.9 % (0-4); Hematocrit 27.1 % (42.0-52.0); Hemoglobin 9.1 g/dl (14.0-18.0); Imm Gran Abs Auto 0.21 X10*3/uL (0.00-0.03); Imm Gran Pct Auto 1.1 % (0.0-0.4); Lymphocytes Absolute Auto 2.6 X10*3/uL (1.2-4.9); Lymphocytes Percent Auto 14.1 % (20-40); Mean Corpuscular HGB Conc 33.6 g/dl (31.0-36.0); Mean Corpuscular Hemoglobin 34.3 pg (27.0-33.0); Mean Corpuscular Volume 102.3 fL (80.0-98.0); Mean Platelet Volume 10.8 fL (9.4-12.4); Monocytes Absolute Auto 1.6 X10*3/uL (0.1-1.2); Monocytes Percent Auto 8.7 % (2-11); NRBC Pct Auto 0.4 /100WBC (0.0-0.2); Neutrophils Percent Auto 74.8 % (45-73); Platelet Count 665 X10*3/uL (160-400); Red Blood Count 2.65 X10*6/uL (4.60-5.80); Red Cell Distribution Width 14.6 % (11.0-16.0); SCAN SMEAR FLAG 1; White Blood Count 18.7 X10*3/uL (4.8-10.8)
[2023-01-09 07:25] LABS: MANUAL DIFF FLAG SCAN
[2023-01-09 07:26] LABS: SLIDE REVIEW VERIFIED
[2023-01-09 07:28] VITALS: BP 164/74; PULSE 70; RESP 16; TEMP 36.1; O2SAT 97
[2023-01-09 07:29] LABS: Glucose, Whole Blood 143 mg/dL (60-115)
--- NOTE | 2023-01-09 08:24 | P.PNGS_ITS ---
Subjective Subjective Date of Service: 01/09/23 Interval history: Dhiraj reports an episode of sudden increased abdominal pain in the mid abdomen with lasted several minutes. The pain has now resolved. He denies nausea, vomiting, fever or chills. He denies significant abdominal pain currently. Ostomy is producing semisolid stool. He is not interested in STR and prefers d/c to home with VNA. Physical Exam 2 Vital Signs: Vital Signs: Last Vital Signs Temp 97.0 F 01/09/23 07:28 Pulse 70 01/09/23 07:28 Resp 16 01/09/23 07:28 BP 164/74 H 01/09/23 07:28 Pulse Ox 97 01/09/23 07:28 O2 Del Method Room Air 01/09/23 07:28 O2 Flow Rate 1 12/31/22 15:15 FiO2 33 12/20/22 18:30 BMI result Body Mass Index 33.4 Const: General: comfortable Nutritional Appearance: well nourished O rientation/consciousness: patient oriented x3 Limitations: no limitations Resp: Effort & Inspection: normal respiratory effort GI: Other: Dressings recently changed; incision improved with small amount of purulent discharge. No new necrotic skin changes. Inspection: Yes normal to inspection Palpation (GI): Soft to palpation, nontender, no guarding and not rigid Neuro: General: patient oriented x3 Extrem: General: No edema Objective Data Active Medications Albuterol Sulfate (Albuterol Sulfate 90 Mcg 8 Gm Inhaler) 2 puff INHALE RQID PRN PRN Reason: Respiratory Distress Amlodipine Besylate (Amlodipine Besylate 10 Mg Tablet) 10 mg PO DAILY [facility]; Protocol Last Admin: 01/08/23 09:02 Dose: 10 mg Documented By: RAVI Buprenorphine/Naloxone (Buprenorphine/Naloxone 8/2 Mg Film) 1 film SUBLINGUAL TID [facility] Last Admin: 01/08/23 20:39 Dose: 1 film Documented By: SARAHI Buspirone HCl (Buspirone Hcl 5 Mg Tablet) 5 mg PO TID [facility] Last Admin: 01/08/23 20:39 Dose: 5 mg Documented By: SARAHI Carvedilol (Carvedilol 12.5 Mg Tablet) 25 mg PO BID [facility]; Protocol Last Admin: 01/08/23 20:39 Dose: 25 mg Documented By: SARAHI Dextrose (Dextrose 50 % 25 Gm/50 Ml Syringe) 25 gm IVPUSH Q15M PRN; Protocol PRN Reason: per Hypoglycemia Standing Ord. Dextrose (Dextrose 50 % 25 Gm/50 Ml Syringe) 25 gm IVPUSH Q15M PRN; Protocol PRN Reason: per Hypoglycemia Standing Ord. Dolutegravir Sodium (Dolutegravir Sodium 50 Mg Tablet) 50 mg PO DAILY [facility] Last Admin: 01/08/23 09:02 Dose: 50 mg Documented By: RAVI Enoxaparin Sodium (Enoxaparin Sodium 30 Mg/0.3 Ml Syringe) 30 mg SUBCUT Q24H [facility] Last Admin: 01/08/23 11:38 Dose: 30 mg Documented By: RAVI Gabapentin (Gabapentin 600 Mg Tablet) 600 mg PO BID [facility] Last Admin: 01/08/23 20:39 Dose: 600 mg Documented By: SARAHI Glucose (Glucose Gel 15 Gm Gel..Gram.) 15 gm PO Q15M PRN; Protocol PRN Reason: per Hypoglycemia Standing Ord. Hydromorphone HCl (Hydromorphone Hcl 0.5 Mg/0.5 Ml Syringe) 0.5 mg IVPUSH Q6H PRN; Protocol PRN Reason: Pain, Severe (Pain Scale 7-10) Last Admin: 01/09/23 05:24 Dose: 0.5 mg Documented By: SARAHI Metronidazole (Flagyl) 500 mg in 100 mls @ 100 mls/hr IV Q8H [facility] Last Infusion: 01/09/23 06:31 Dose: Infused Documented By: SARAHI Levofloxacin (Levaquin) 250 mg in 50 mls @ 50 mls/hr IV Q24H [facility] Last Infusion: 01/08/23 14:46 Dose: Infused Documented By: RAVI Insulin Human Lispro (Insulin Lispro 100 Unit/Ml 3 Ml Vial) 0 unit SUBCUT QIDACHS [facility]; Protocol Last Admin: 01/09/23 07:32 Dose: Not Given Documented By: BRUCE Non-Admin Reason: No Insulin Coverage Insulin Human Lispro (Insulin Lispro 100 Unit/Ml 3 Ml Vial) 5 unit SUBCUT QIDACHS [facility] Last Admin: 01/09/23 07:32 Dose: Not Given Documented By: BRUCE Non-Admin Reason: No Insulin Coverage Lamivudine (Lamivudine 150 Mg Tablet) 300 mg PO DAILY [facility] Last Admin: 01/08/23 09:01 Dose: 300 mg Documented By: RAVI Loratadine (Loratadine 10 Mg Tablet) 10 mg PO DAILY PRN PRN Reason: Allergic Symptoms Last Admin: 12/26/22 05:28 Dose: 10 mg Documented By: SARAHI Omeprazole (Omeprazole 40 Mg Capsule.Dr) 40 mg PO BID@0630,1630 [facility] Last Admin: 01/09/23 05:19 Dose: 40 mg Documented By: SARAHI Ondansetron HCl (Ondansetron Hcl 4 Mg/2 Ml Vial) 4 mg IVPUSH Q8H PRN PRN Reason: Nausea and Vomiting Last Admin: 12/27/22 11:36 Dose: 4 mg Documented By: KEISHA Oxycodone HCl (Oxycodone Hcl Immed Release 5 Mg Tablet) 5 mg PO Q4H PRN PRN Reason: Pain, Mild (Pain Scale 1-3) Last Admin: 01/07/23 09:28 Dose: 5 mg Documented By: COTEMA Oxycodone HCl (Oxycodone Hcl Immed Release 5 Mg Tablet) 10 mg PO Q4H PRN PRN Reason: Pain, Severe (Pain Scale 7-10) Last Admin: 01/08/23 22:10 Dose: 10 mg Documented By: SARAHI Pharmacy Consult (Consult Rx Parenteral Nutrition Ordering) 1 each MISCELLANE DAILY PRN PRN Reason: Consult order Sertraline HCl (Sertraline Hcl 25 Mg Tablet) 75 mg PO DAILY [facility] Last Admin: 01/08/23 09:02 Dose: 75 mg Documented By: RAVI Sodium Bicarbonate (Sodium Bicarbonate 650 Mg Tablet) 1,300 mg PO BID [facility] Last Admin: 01/08/23 20:39 Dose: 1,300 mg Documented By: SARAHI Sodium Chloride (0.9 % Sodium Chloride Flush 3 Ml Syringe) 3 ml IVFLUSH QSHIFT [facility] Last Admin: 01/08/23 20:40 Dose: 3 ml Documented By: SARAHI Sodium Chloride (0.9 % Sodium Chloride Flush 10 Ml Syringe) 5 ml IVFLUSH TID [facility] Last Admin: 01/08/23 20:40 Dose: 5 ml Documented By: SARAHI Trazodone HCl (Trazodone Hcl 100 Mg Tablet) 100 mg PO BEDTIME PRN PRN Reason: Sleep Last Admin: 01/03/23 20:19 Dose: 100 mg Documented By: WAYLON Trolamine Salicylate (Trolamine Salicylate 10 % Cream 85 Gm Tube) 1 appl TOPICAL QID PRN; Protocol PRN Reason: hand pain Last Admin: 01/08/23 10:24 Dose: 1 appl Documented By: RAVI Labs 01/09/23 05:35 01/08/23 05:28 Labs: Laboratory Results - last 24 hr 01/08/23 01/08/23 01/08/23 11:02 16:31 20:39 MCV MCH MCHC RDW Plt Count MPV Immature Gran % (Auto) Neut % (Auto) Lymph % (Auto) [place] % (Auto) Eos % (Auto) Baso % (Auto) Lymph # (Auto) [place] # (Auto) Eos # (Auto) Baso # (Auto) Abs Immat Gran (auto) Absolute Neuts (auto) Absolute Nucleated RBC Nucleated RBC % (auto) Smear Tech's Comments POC Glucose 219 H 175 H 188 H 01/09/23 01/09/23 05:35 07:26 MCV 102.3 H MCH 34.3 H MCHC 33.6 RDW 14.6 Plt Count 665 H MPV 10.8 Immature Gran % (Auto) 1.1 H Neut % (Auto) 74.8 H Lymph % (Auto) 14.1 L [place] % (Auto) 8.7 Eos % (Auto) 0.9 Baso % (Auto) 0.4 Lymph # (Auto) 2.6 [place] # (Auto) 1.6 H Eos # (Auto) 0.2 Baso # (Auto) 0.1 Abs Immat Gran (auto) 0.21 H Absolute Neuts (auto) 14.0 H Absolute Nucleated RBC 0.070 H Nucleated RBC % (auto) 0.4 H Smear Tech's Comments VERIFIED POC Glucose 143 H Procedures Date of Service Date of Service: 01/09/23 Progress Note: A&P Assessment and plan (1) S/P exploratory laparotomy: Status: Acute (2) Small bowel obstruction: Status: Acute Plan Small bowel obstruction now resolved. Patient tolerating a regular diet. He is ready for discharge to home from a surgical standpoint. Will need VNA for wound care to the abdominal dressings. Time Spent With Patient Time: Total time managing care of this patient today ____ minutes. Quality Stroke Does the patient have a stroke diagnosis?: No VTE Prior VTE?: No VTE Risk Level:: Surgical - moderate VTE Device Contraindication: N/A - Device Ordered VTE Drug Contraindication: N/A - Med Ordered
[2023-01-09] MEDS: 0.9 % Sodium Chloride Flush 3 ML SYRINGE IVFLUSH ×2 (08:59→16:44)
[2023-01-09] MEDS: Sertraline HCL 25 MG TABLET 75 MG PO (08:59)
[2023-01-09] MEDS: 0.9 % Sodium Chloride Flush 10 ML SYRINGE 5 ML IVFLUSH ×2 (08:59→14:41)
[2023-01-09] MEDS: lamiVUDine 150 MG TABLET 300 MG PO (09:00)
[2023-01-09] MEDS: Dolutegravir Sodium 50 MG TABLET PO (09:00)
[2023-01-09] MEDS: Sodium Bicarbonate 650 MG TABLET 1300 MG PO ×2 (09:00→21:14)
[2023-01-09] MEDS: busPIRone HCl 5 MG TABLET PO ×3 (09:00→21:14)
[2023-01-09] MEDS: oxyCODONE HCl Immed Release 5 MG TABLET 10 MG PO ×2 (09:00→21:13)
[2023-01-09] MEDS: Gabapentin 600 MG TABLET PO ×2 (09:01→21:14)
[2023-01-09] MEDS: amLODIPine Besylate 10 MG TABLET PO (09:01)
[2023-01-09] MEDS: Buprenorphine/Naloxone 8/2 mg FILM 1 FILM SUBLINGUAL ×3 (09:01→21:13)
[2023-01-09] MEDS: carvediloL 12.5 MG TABLET 25 MG PO ×2 (09:01→21:14)
[2023-01-09 11:11] LABS: Glucose, Whole Blood 159 mg/dL (60-115)
[2023-01-09] MEDS: Enoxaparin Sodium 30 MG/0.3 ML SYRINGE SUBCUT (12:50)
[2023-01-09] MEDS: levoFLOXacin/D5W 250 MG/50 ML PIGGYBACK 50 MG IV (12:50)
[2023-01-09] MEDS: Trolamine Salicylate 10 % Cream 85 GM TUBE 1 APPL TOPICAL ×2 (14:44→21:24)
[2023-01-09 15:25] VITALS: BP 133/62; PULSE 75; RESP 20; TEMP 36.6; O2SAT 93
[2023-01-09 16:27] LABS: Glucose, Whole Blood 150 mg/dL (60-115)
[2023-01-09 19:28] VITALS: BP 138/63; PULSE 77; RESP 20; TEMP 36.6; O2SAT 94
[2023-01-09 20:37] LABS: Glucose, Whole Blood 169 mg/dL (60-115)
[2023-01-09] MEDS: traZODone HCL 100 MG TABLET PO (21:14)
[2023-01-09] MEDS: Insulin Lispro 100 UNIT/ML 3 ML VIAL SUBCUT (21:15)
[2023-01-10] MEDS: oxyCODONE HCl Immed Release 5 MG TABLET 10 MG PO ×4 (02:03→15:53)
[2023-01-10 03:30] VITALS: BP 133/65; PULSE 75; RESP 16; TEMP 36.6; O2SAT 94
[2023-01-10] MEDS: Omeprazole 40 MG CAPSULE.DR PO (05:50)
[2023-01-10 07:00] VITALS: BP 164/77; PULSE 66; RESP 16; TEMP 37.2; O2SAT 94
[2023-01-10 07:32] LABS: Glucose, Whole Blood 108 mg/dL (60-115)
--- NOTE | 2023-01-10 08:46 | PM.PNGS ---
Subjective Subjective Date of Service: 01/10/23 Interval history: Feels overall better this morning. Pain improved, ostomy continues with output. Tolerating solid diet. OOB and ambulating. Still would like to go home. Feels ready today. Physical Exam Vital Signs: Vital Signs: Last Vital Signs Temp 98.9 F 01/10/23 07:00 Pulse 66 01/10/23 07:00 Resp 16 01/10/23 07:00 BP 164/77 H 01/10/23 07:00 Pulse Ox 94 01/10/23 07:00 O2 Del Method Room Air 01/10/23 07:00 O2 Flow Rate 1 12/31/22 15:15 FiO2 33 12/20/22 18:30 BMI result Body Mass Index 33.4 Const: General: comfortable, no acute distress and alert Orientation/consciousness: patient oriented x3 Resp: Effort & Inspection: normal respiratory effort GI: Other: ostomy with soft stool in appliance, appliance changed Inspection: No distended and Yes incision (wound openings clean, no purulence, packing in place) Palpation (GI): Soft to palpation, Tenderness to palpation present (GI) (mild incisional), no guarding and not rigid Skin: General skin exam: no rashes or lesions noted Neuro: General: patient oriented x3 Objective Data Active Medications Albuterol Sulfate (Albuterol Sulfate 90 Mcg 8 Gm Inhaler) 2 puff INHALE RQID PRN PRN Reason: Respiratory Distress Amlodipine Besylate (Amlodipine Besylate 10 Mg Tablet) 10 mg PO DAILY [facility]; Protocol Last Admin: 01/09/23 09:01 Dose: 10 mg Documented By: BRUCE Buprenorphine/Naloxone (Buprenorphine/Naloxone 8/2 Mg Film) 1 film SUBLINGUAL TID [facility] Last Admin: 01/09/23 21:13 Dose: 1 film Documented By: THERESE Buspirone HCl (Buspirone Hcl 5 Mg Tablet) 5 mg PO TID [facility] Last Admin: 01/09/23 21:14 Dose: 5 mg Documented By: THERESE Carvedilol (Carvedilol 12.5 Mg Tablet) 25 mg PO BID [facility]; Protocol Last Admin: 01/09/23 21:14 Dose: 25 mg Documented By: THERESE Dextrose (Dextrose 50 % 25 Gm/50 Ml Syringe) 25 gm IVPUSH Q15M PRN; Protocol PRN Reason: per Hypoglycemia Standing Ord. Dextrose (Dextrose 50 % 25 Gm/50 Ml Syringe) 25 gm IVPUSH Q15M PRN; Protocol PRN Reason: per Hypoglycemia Standing Ord. Dolutegravir Sodium (Dolutegravir Sodium 50 Mg Tablet) 50 mg PO DAILY [facility] Last Admin: 01/09/23 09:00 Dose: 50 mg Documented By: BRUCE Enoxaparin Sodium (Enoxaparin Sodium 30 Mg/0.3 Ml Syringe) 30 mg SUBCUT Q24H [facility] Last Admin: 01/09/23 12:50 Dose: 30 mg Documented By: BRUCE Gabapentin (Gabapentin 600 Mg Tablet) 600 mg PO BID [facility] Last Admin: 01/09/23 21:14 Dose: 600 mg Documented By: THERESE Glucose (Glucose Gel 15 Gm Gel..Gram.) 15 gm PO Q15M PRN; Protocol PRN Reason: per Hypoglycemia Standing Ord. Hydromorphone HCl (Hydromorphone Hcl 0.5 Mg/0.5 Ml Syringe) 0.5 mg IVPUSH Q6H PRN; Protocol PRN Reason: Pain, Severe (Pain Scale 7-10) Last Admin: 01/09/23 13:19 Dose: 0.5 mg Documented By: BRUCE Insulin Human Lispro (Insulin Lispro 100 Unit/Ml 3 Ml Vial) 0 unit SUBCUT QIDACHS [facility]; Protocol Last Admin: 01/09/23 21:15 Dose: 2 unit Documented By: THERESE Insulin Human Lispro (Insulin Lispro 100 Unit/Ml 3 Ml Vial) 5 unit SUBCUT QIDAS [facility] Last Admin: 01/09/23 21:15 Dose: Not Given Documented By: THERESE Non-Admin Reason: Nursing judgment Lamivudine (Lamivudine 150 Mg Tablet) 300 mg PO DAILY [facility] Last Admin: 01/09/23 09:00 Dose: 300 mg Documented By: BRUCE Loratadine (Loratadine 10 Mg Tablet) 10 mg PO DAILY PRN PRN Reason: Allergic Symptoms Last Admin: 12/26/22 05:28 Dose: 10 mg Documented By: SARAHI Omeprazole (Omeprazole 40 Mg Negrita.) 40 mg PO BID@0630,1630 [facility] Last Admin: 01/10/23 05:50 Dose: 40 mg Documented By: THERESE Ondansetron HCl (Ondansetron Hcl 4 Mg/2 Ml Vial) 4 mg IVPUSH Q8H PRN PRN Reason: Nausea and Vomiting Last Admin: 12/27/22 11:36 Dose: 4 mg Documented By: KEISHA Oxycodone HCl (Oxycodone Hcl Immed Release 5 Mg Tablet) 5 mg PO Q4H PRN PRN Reason: Pain, Mild (Pain Scale 1-3) Last Admin: 01/07/23 09:28 Dose: 5 mg Documented By: COTPHILIP Oxycodone HCl (Oxycodone Hcl Immed Release 5 Mg Tablet) 10 mg PO Q4H PRN PRN Reason: Pain, Severe (Pain Scale 7-10) Last Admin: 01/10/23 06:04 Dose: 10 mg Documented By: THERESE Pharmacy Consult (Consult Rx Parenteral Nutrition Ordering) 1 each MISCELLANE DAILY PRN PRN Reason: Consult order Sertraline HCl (Sertraline Hcl 25 Mg Tablet) 75 mg PO DAILY [facility] Last Admin: 01/09/23 08:59 Dose: 75 mg Documented By: BRUCE Sodium Bicarbonate (Sodium Bicarbonate 650 Mg Tablet) 1,300 mg PO BID [facility] Last Admin: 01/09/23 21:14 Dose: 1,300 mg Documented By: THERESE Sodium Chloride (0.9 % Sodium Chloride Flush 3 Ml Syringe) 3 ml IVFLUSH QSHIFT [facility] Last Admin: 01/09/23 22:33 Dose: Not Given Documented By: THERESE Non-Admin Reason: No Access Sodium Chloride (0.9 % Sodium Chloride Flush 10 Ml Syringe) 5 ml IVFLUSH TID [facility] Last Admin: 01/09/23 21:19 Dose: Not Given Documented By: THERESE Non-Admin Reason: No Access Trazodone HCl (Trazodone Hcl 100 Mg Tablet) 100 mg PO BEDTIME PRN PRN Reason: Sleep Last Admin: 01/09/23 21:14 Dose: 100 mg Documented By: THERESE Trolamine Salicylate (Trolamine Salicylate 10 % Cream 85 Gm Tube) 1 appl TOPICAL QID PRN; Protocol PRN Reason: hand pain Last Admin: 01/09/23 21:24 Dose: 1 appl Documented By: THERESE Labs 01/09/23 05:35 01/08/23 05:28 Labs: Laboratory Results - last 24 hr 01/06/23 01/09/23 01/09/23 06:38 11:07 16:23 Smear Path Review POC Glucose 159 H 150 H 01/09/23 01/10/23 20:28 07:26 Smear Path Review POC Glucose 169 H 108 Procedures Date of Service Date of Service: 01/10/23 Progress Note: A&P Assessment and plan (1) S/P exploratory laparotomy: Status: Acute (2) CKD (chronic kidney disease): Status: Acute (3) Small bowel obstruction: Status: Acute Plan Small bowel obstruction now resolved. Patient tolerating a regular diet. He is ready for discharge to home from a surgical standpoint. To resume VNA services. Completed abx course. F/u in office in 1 week. patient comfortable with plan. Time Spent With Patient Time: Total time managing care of this patient today ____ minutes. Quality Stroke Does the patient have a stroke diagnosis?: No VTE Prior VTE?: No VTE Risk Level:: Surgical - moderate VTE Device Contraindication: N/A - Device Ordered VTE Drug Contraindication: N/A - Med Ordered
[2023-01-10] MEDS: Sertraline HCL 25 MG TABLET 75 MG PO (09:04)
[2023-01-10] MEDS: Dolutegravir Sodium 50 MG TABLET PO (09:04)
[2023-01-10] MEDS: Buprenorphine/Naloxone 8/2 mg FILM 1 FILM SUBLINGUAL ×2 (09:05→14:15)
[2023-01-10] MEDS: busPIRone HCl 5 MG TABLET PO ×2 (09:05→14:15)
[2023-01-10] MEDS: lamiVUDine 150 MG TABLET 300 MG PO (09:05)
[2023-01-10] MEDS: Gabapentin 600 MG TABLET PO (09:05)
[2023-01-10] MEDS: carvediloL 12.5 MG TABLET 25 MG PO (09:05)
[2023-01-10] MEDS: amLODIPine Besylate 10 MG TABLET PO (09:05)
[2023-01-10] MEDS: Sodium Bicarbonate 650 MG TABLET 1300 MG PO (09:05)
--- NOTE | 2023-01-10 09:43 | MHC.CM.PN ---
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
[2023-01-10 11:13] LABS: Glucose, Whole Blood 195 mg/dL (60-115)
[2023-01-10] MEDS: Insulin Lispro 100 UNIT/ML 3 ML VIAL SUBCUT (12:12)
[2023-01-10] MEDS: Enoxaparin Sodium 30 MG/0.3 ML SYRINGE SUBCUT (12:12)
--- NOTE | 2023-01-10 12:59 | MHC.CM.PN ---
pt dcd by amb home with vna and tile conduit layer
[2023-01-10 13:50] VITALS: BP 129/61; PULSE 74; RESP 18; TEMP 37.1; O2SAT 95
--- NOTE | 2023-01-18 12:22 | P.DS_ITS ---
DS: Providers Provider Date of Service: 01/18/23 Date of admission: 12/18/22 10:19 Date of discharge: 01/10/23 Primary care physician: Noemi Ruffin MD Admitting clinician: Jacky Vo Consults: 12/18/22 10:28 Consult to Hospitalist Routine Comment: Consulting Provider: Hospitalist Reason For Exam: DM, HIV, SBO, med management 12/20/22 15:55 Consult to Critical Care Stat Consulting Provider: Claudia Alejandro Reason for consultation: Acute resp failure Has provider been notified: Yes 12/25/22 13:02 Consult to Nephrology Routine Consulting Provider: Jorge Stanton Reason for consultation: CKD, Preop clearance for PICC 01/03/23 07:39 Consult to Hospitalist Routine Comment: Consulting Provider: Hospitalist Reason For Exam: bilateral hand pain, ? arthritis 01/03/23 16:27 Consult to Orthopedics Routine Consulting Provider: [facility] [place] [facility] Reason for consultation: Bilateral hand redness, pain ? steroid injection Discharging clinician: Jacky Vo DS: Diagnosis Discharge Diagnosis (1) Small bowel obstruction: Status: Resolved (2) S/P exploratory laparotomy: Status: Acute (3) CKD (chronic kidney disease): Status: Acute DS: Summary Hospital Course Hospital Course: 72-year-old male patient admitted on 12/18/2022 with complaints of abdominal pain diffusely throughout his abdomen. He has a prior history of diabetes, HIV, hypertension, ulcerative colitis status post total colectomy with ileostomy performed approximately 10 years prior at [facility]. The pain is associated with nausea and vomiting without fever or chills. He reports some liquid being produced by his ileostomy but no gas for several days prior to admission. His symptoms are similar to those experienced 6 months prior when he was admitted and treated non operatively. He denies any blood per ostomy but d oes report diffuse tenderness throughout his abdomen. Workup in the emergency department revealed a WBC of 18.6 with a normal hemoglobin. CT abdomen and pelvis revealed dilated loops of small bowel with air-fluid levels suggestive of a proximal small bowel obstruction and decompressed small bowel distally. He was admitted to the surgical service and nasogastric tube inserted in the emergency department. Consultation with hospitals was requested due to his multiple medical issues. The patient was treated non operatively for the next 2 days however did not seem to improvement in fact his abdominal pain seem to be worsening. The decision was therefore made to proceed to an abdominal exploration for enterolysis. He was subsequently taken to the OR on 12/20/2022. Operative findings were consistent with multiple loops of dilated small bowel with dense adhesions throughout the abdomen. He underwent extensive lysis of adhesions involving the entire small bowel. One area of resection was required in the pelvis involving the mid small bowel. The patient tolerated the procedure well. Postoperatively the patient had a prolonged postoperative course with did begin producing bowels in his ostomy soon after the procedure. He did complain of incisional pain but over the next several days began to develop some redness in the incision suggestive of an infection. Several of the radha were removed in the midline incision producing a purulent discharge. The wound was opened and subsequently packed with gauze. The nasogastric tube was eventually removed he was started on clear liquids and slowly advanced to regular diet. Over the next week he was able to tolerate a regular diet, ambulate with assistance and continues to pass stool and gas from his ostomy. He was subsequently discharged to home with VNA services on 01/10/2023. Discharge instructions were to follow up in the office in 1 week. He will need dressing changes to his abdominal incision and will return to the office for wound check. He should call the office sooner for any new concerns. He expressed understanding and agrees with the plan. Status at Discharge Functional status at discharge: uses cane/walker Overall status at discharge: patient is not back to baseline Time Spent with Patient Time attestation: Total time managing care of this patient today ____ minutes. Discharge coordination time: Less than 30 minutes Quality: Safe Use of Opioids Does Pt have an Active Cancer Diagnosis on the Problem List?: No Quality: Stroke Does the patient have a stroke diagnosis?: No Physical Exam Vital Signs: Vital Signs: Last Vital Signs Temp 98.8 F 01/10/23 13:50 Pulse 74 01/10/23 13:50 Resp 18 01/10/23 13:50 BP 129/61 01/10/23 13:50 Pulse Ox 95 01/10/23 13:50 O2 Del Method Room Air 01/10/23 13:50 O2 Flow Rate 1 12/31/22 15:15 FiO2 33 12/20/22 18:30 BMI result Body Mass Index 33.4 Const: General: comfortable, no acute distress and alert Orientation/consciousness: patient oriented x3 Resp: Effort & Inspection: normal respiratory effort GI: Other: ostomy with soft stool in appliance, appliance changed Inspection: No distended and Yes incision (wound openings clean, no purulence, packing in place) Palpation (GI): Soft to palpation, Tenderness to palpation present (GI) (mild incisional), no guarding and not rigid Skin: General skin exam: no rashes or lesions noted Neuro: General: patient oriented x3 DS: Data Data Completed and Pending Completed studies during hospitalization [Text1]: Pending at discharge 12/20/22 14:10 Surgical [PTH] Routine Procedures Drainage of Abdomen Skin, External Approach (12/18/22) Excision of Small Intestine, Open Approach (12/18/22) Excision of Stomach, Pylorus, Via Natural or Artificial Opening Endoscopic, Diagnostic (06/06/21) Insertion of Infusion Device into Superior Vena Cava, Percutaneous Approach (12/18/22) Introduction of Other Therapeutic Substance into Upper GI, Via Natural or Artificial Opening Endoscopic (06/06/21) Release Small Intestine, Open Approach (12/18/22) Transfusion of Nonautologous Red Blood Cells into Peripheral Vein, Percutaneous Approach (06/06/21) Ultrasonography of Superior Vena Cava, Guidance (12/18/22) Discharge Plan Discharge Anticipated Discharge Date/Time: 01/10/23 13:24 Patient Disposition: Home Health Service Discharge Diagnosis: SBO s/p ex lap, LEVI Referrals: home care vna [Other] - 1 Week Noemi Ruffin MD [Primary Care Provider] - 1 Week Jacky Vo MD [Physician] - 1 Week Discharge Medications: New sodium bicarbonate 650 mg Tablet 1,300 mg PO BID Qty: 120 0RF oxycodone 5 mg tablet 5 mg PO Q4H PRN (Reason: pain (scale score 7-10)) Qty: 14 0RF Rx Instructions: Partial Fill upon patient request. Continued buspirone 5 mg Tablet 5 mg PO TID gabapentin 600 mg Tablet 600 mg PO BID carvedilol 12.5 mg Tablet 12.5 mg PO BID Rx Instructions: must administer with a meal/food cetirizine 10 mg Tablet 10 mg PO DAILY PRN (Reason: Allergic Symptoms) pravastatin 40 mg Tablet 40 mg PO BEDTIME trazodone 100 mg Tablet 100 mg PO BEDTIME PRN (Reason: Sleep) albuterol sulfate 90 mcg/actuation Hfa Aerosol Inhaler 2 puff INHALATION QID PRN (Reason: Respiratory Distress) sertraline 50 mg Tablet 75 mg PO DAILY hydrochlorothiazide 12.5 mg Tablet 12.5 mg PO DAILY Hold Instructions: hold until repeat labs in one week or you speak with PCP buprenorphine-naloxone 8-2 mg Film 1 film SUBLINGUAL TID omeprazole 40 mg capsule,delayed release(DR/EC) 40 mg PO BID 30 Days Qty: 60 0RF loperamide [Anti-Diarrheal (loperamide)] 2 mg tablet 2 mg PO Q6H PRN (Reason: Diarrhea) amlodipine 5 mg tablet 5 mg PO DAILY Jardiance 10 mg tablet 10 mg PO DAILY Dovato 50-300 mg tablet 1 tab PO DAILY Trulicity 0.75 mg/0.5 mL pen injector 0.75 mg subcut MO No Action buprenorphine-naloxone 8-2 mg film 1 film buccal TID 7 Days Qty: 21 0RF Discharge Orders: Discharge Order (Routine); Ordered 01/10/23 Ordered By: Sophie Zavaleta Diet: Advance to usual diet Activity on Discharge: No heavy lifting Stand Alone Forms: Patient Portal Discharge page Activity Restrictions/Additional Instructions: Ok to shower. No tub bath. Dressing change: loose iodoform packing to wound openings (3) followed by fluff and abd dressing. Change every other day. NO HEAVY LIFTING (>10lbs) or strenuous activity. Follow up in office in 1 week. ([phone]) Call Your Doctor If: -Your temperature exceeds 101.5? F -You experience excessive pain or swelling -You have an unexpected reaction to medication -You have excessive bleeding -You experience continued vomiting/nausea Care Plan Goals: Return to baseline health and resume normal activities following recovery period. Wound closure. Health Concerns: Hx of total colectomy SBO CKD Hypertension On suboxone Plan of Treatment: S/p ex lap, LEVI Superficial skin infection, antibiotics completed, wound care. Medical management of comorbidities Assessment: Doing well post op Discharge Date/Time: 01/10/23 16:10
== END 2023-01-10 16:10 | disposition home health service (06) | DRG 329 ==
LOC: HO.ED 09:57 → HO.EDOVER 12:24 → HO.S3 14:37
PROVIDERS: Emergency Medicine; Hospitalist; Internal Medicine; Internal Medicine Nephrology; Physician Assistant Surgical; Student in an Organized Health Care Education/Training Program; Surgery; Admitting Provider Surgery; Emergency Provider Emergency Medicine; PCP Internal Medicine; Responsible Provider Nurse Practitioner Acute Care; Visit Provider Surgery
PROC: 0DB80ZZ Excision of Small Intestine, Open Approach (ICD-10-PCS; CPT 49000; principal; 2022-12-20 09:50)
PROC: 02HV33Z Insertion of Infusion Device into Superior Vena Cava, Percutaneous Approach (ICD-10-PCS; principal; 2022-12-26 09:30)
DX: K56.51 Intestinal adhesions [bands], with partial obstruction (principal); N17.0 Acute kidney failure with tubular necrosis; F11.20 Opioid dependence, uncomplicated; K51.90 Ulcerative colitis, unspecified, without complications; T81.41XA Infection following a procedure, superficial incisional surgical site, initial encounter; Z21 Asymptomatic human immunodeficiency virus [HIV] infection status; F39 Unspecified mood [affective] disorder; Y83.9 Surgical procedure, unspecified as the cause of abnormal reaction of the patient, or of later complication, without mention of misadventure at the time of the procedure; E11.65 Type 2 diabetes mellitus with hyperglycemia; M19.032 Primary osteoarthritis, left wrist; M19.031 Primary osteoarthritis, right wrist; I12.9 Hypertensive chronic kidney disease with stage 1 through stage 4 chronic kidney disease, or unspecified chronic kidney disease; N18.32 Chronic kidney disease, stage 3b; E11.22 Type 2 diabetes mellitus with diabetic chronic kidney disease; E78.5 Hyperlipidemia, unspecified; Z93.2 Ileostomy status; Z87.891 Personal history of nicotine dependence; Z79.899 Other long term (current) drug therapy
CPT/HCPCS: 36415; 36573; 36600; 71045; 73130; 74018; 74176; 80048; 80076; 81001; 81003; 82040; 82570; 82803; 82947; 83690; 83735; 84100; 84132; 84300; 84478; 84484; 84550; 85007; 85025; 85027; 85999; 86850; 86900; 86901; 87070; 87077; 87186; 87205; 88307; 94002; 94799; 97116; 97162; 97530; 99285; C1751; J0131; J0690; J1170; J1200; J1650; J1956; J2060; J2270; J2405; J2765; J3010

== ENCOUNTER → 2022-12-18 06:23 | Outpatient (BNV) | payer MEDICARE, SELFPAY | PROVIDERS: Emergency Provider Emergency Medicine; Visit Provider Surgery | DX: K56.609 Unspecified intestinal obstruction, unspecified as to partial versus complete obstruction (principal); Z98.890 Other specified postprocedural states; N18.9 Chronic kidney disease, unspecified | CPT/HCPCS: 44202; 99024; 99222; 99232 ==

== ENCOUNTER → 2022-12-18 10:19 | Outpatient (BNV) | payer OTHER, SELFPAY | PROVIDERS: Admitting Provider Surgery; Emergency Provider Emergency Medicine; Responsible Provider Internal Medicine; Visit Provider Internal Medicine Cardiovascular Disease | DX: U07.1 COVID-19 (principal); K56.609 Unspecified intestinal obstruction, unspecified as to partial versus complete obstruction; E87.5 Hyperkalemia; N17.9 Acute kidney failure, unspecified; Z98.890 Other specified postprocedural states; D72.829 Elevated white blood cell count, unspecified; N18.9 Chronic kidney disease, unspecified; K26.9 Duodenal ulcer, unspecified as acute or chronic, without hemorrhage or perforation; D64.9 Anemia, unspecified | CPT/HCPCS: 99499 ==

== ENCOUNTER → 2022-12-18 10:19 | Outpatient (BNV) | payer OTHER, SELFPAY | PROVIDERS: Admitting Provider Surgery; Emergency Provider Emergency Medicine; PCP Internal Medicine; Responsible Provider Nurse Practitioner Acute Care; Visit Provider Physician Assistant | DX: M19.031 Primary osteoarthritis, right wrist (principal); M19.032 Primary osteoarthritis, left wrist | CPT/HCPCS: 99231 ==

== ENCOUNTER → 2022-12-18 10:19 | Outpatient (BNV) | payer MEDICARE, SELFPAY | PROVIDERS: Admitting Provider Surgery; Emergency Provider Emergency Medicine; Visit Provider Physician Assistant | DX: M19.031 Primary osteoarthritis, right wrist (principal); M19.032 Primary osteoarthritis, left wrist | CPT/HCPCS: 99222; 99231; 99232; 99233; 99499 ==

== ENCOUNTER 2023-01-11 11:50 | Emergency (ER) | payer OTHER, SELFPAY ==
--- NOTE | ~2023-01-11 | CT_ITS ---
EXAMINATION: CT CERVICAL SPINE WITHOUT CONTRAST CLINICAL INFORMATION: Fall, trauma COMPARISON: None available. TECHNIQUE: Multiple helical unenhanced images were acquired through the cervical spine. Reformatted multiplanar images were created from the helical data set. This CT examination was performed using dose optimization techniques as appropriate, variously including the following: *Automated exposure control *Adjustment of mA and/or kV according to patient size (this includes techniques or standardized protocols for targeted exams where dose is matched to indication/reason for exam; i.e. extremities or head) *Use of iterative reconstruction technique DLP: 3-D for mGy-cm FINDINGS: There is no prevertebral swelling. Vertebral body height and alignment are maintained. No acute fracture or subluxation is detected. Generalized demineralization is suspected in the cervical vertebrae appear somewhat inhomogeneous, with somewhat of a mottled appearance. No cervical adenopathy is detected. CT/CT cervical spine wo IV con IMPRESSION: 1. No acute fracture or subluxation of the cervical spine. 2. Mottled appearance to the vertebral marrow in the cervical spine, raising the possibility of marrow infiltrative disease. Suggest correlation with serum history, chemistry, etc. as myeloma, lymphoma or other marrow infiltrative disease including metastasis could have this appearance. Alternatively, this could be due to inhomogeneous osteoporosis. Fleischner guidelines were followed.
--- NOTE | ~2023-01-11 | CT_ITS ---
EXAMINATION: CT HEAD WITHOUT CONTRAST CLINICAL INFORMATION: Head trauma, fall COMPARISON: Brain CT of 11/25/2018 TECHNIQUE: Contiguous axial imaging was performed from the skull base to vertex without intravenous administration of contrast. This CT examination was performed using dose optimization techniques as appropriate, variously including the following: *Automated exposure control *Adjustment of mA and/or kV according to patient size (this includes techniques or standardized protocols for targeted exams where dose is matched to indication/reason for exam; i.e. extremities or head) *Use of iterative reconstruction technique DLP: 821 mGy-cm FINDINGS: CT examination of the brain shows mild stable age-related involutional changes with prominence of the ventricles and sulci. Periventricular white matter hypodensities are evident, likely on the basis of chronic microvascular ischemic disease. No acute hemorrhage, mass effect or shift is evident. In the posterior fossa, the brainstem, cerebellum and fourth ventricle are unremarkable. The bony calvarium are intact. Bilateral maxillary sinus mucosal thickening is evident. The left orbit is aphakic. The mastoid air cells are well pneumatized and clear. CT/CT head/brain wo IV con IMPRESSION: 1. Mild stable Age-related involutional changes and microvascular disease. No acute hemorrhage, mass effect or shift. 2. No acute intracranial pathology.
[2023-01-11 12:09] VITALS: BP 154/68; BP 174/90; PULSE 74; RESP 16; TEMP 36.9; O2SAT 97; BMI 31.0
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
--- OUTSIDE RECORDS SUMMARY | 2023-01-11 13:02 | XMS_ITS | Continuity of Care Document ---
Author Name Unknown Organization [facility] Address [address] [place] [address]- Care Team Providers Care Category Development Analyst Name Role Phone Mora Gooden MD Primary Care Physician Encounter [facility] Date(s): 12/06/22 - 01/05/[address] [address]- Allergies, Adverse Reactions, Alerts Substance Reaction Severity Status ampicillin Active aspirin BLEEDING Persistent Severe Active NSAIDs bleeding Persistent Severe Active Pollen NASAL CONGESTION SNEEZING Persistent Mode rate Active Immunizations Given and Recorded Vaccine Date Status Refusal Reason [id number] 12y+ bivalent booster vax 02/02/22 Recorded SARS-CoV-2 [...] VIS 10/03 4Result Comment: [12/07/2016] diluent LOT [id number] EXP 03/29/2018 5Result Comment: [07/18/2016] Liquid component: [id number], exp.: 05/2017 6Admin Note: VIS 12/13/2006 7Admin Note: vis 10/30/11 8Admin Note: vis [id number] 9Admin Note: done at [facility] this past march 10Admin Note: VIS GIVEN 2008- 11Admin Note: vis 11/25/06 Medications acetaminophen 500 mg oral tablet 1 tablet, By Mouth, 4 times a day, PRN NEEDED FOR PAIN, TAKE ONLY IF needed, # 100 tablet, 11 Refills, Maintenance, 10/06/22 14:19:00 EDT, [facility], 167, cm, 08/01/22 10:08:00 EDT, Height, 89.9, kg, 05/25/21 10:21:00 EST, Dry Weight Start Date: 10/06/22 Status: Ordered Albuterol (Eqv-ProAir HFA) 90 mcg/inh inhalation aerosol 2 puffs, Inhalation, 4 times a day, PRN NEEDED FOR SHORTNESS OF BREATH OR FOR WHEEZING, # 25.5 Gm, 11 Refills, 12/11/22 11:24:00 EDT, [facility] [place], [place] - [phone], 4, 2 puffs Inhalation 4 times a [...] Maintenance, 12/11/22 11:52:00 EDT, Route toPharmacy Electronically, [facility]... Start Date: 12/11/22 Status: Ordered azelastine 0.05% [...] 09/09/21 Status: Ordered Talbert Elastic barrier strips #084294 Talbert Elastic barrier strips #849585, See Instructions, # 120 each, Refills 11, Tot. Refills 11, Maintenance, Dx: K51; Z93. 3 sig: use 4 strips a day with ostomy bag. disp: 4 bags of 30 strips = 120 strips per month. Fax to [facility] [phone], ... Start Date: 11/09/22 Status: Ordered busPIRone 5 mg oral tablet 1, tablet, By Mouth, 3 times a day, PRN, for anxiety, # 270 tablet, Refills 3, Tot. Refills 3, Maintenance, NEEDED FOR ANXIETY, 12/11/22 11:26:00 EDT, Route to Pharmacy Electronically, [place], [place] - [id number], 167, cm, 06/13/... Start Date: 12/11/22 Stop Date: 12/06/23 Status: Ordered carvedilol 12.5 mg oral tablet 1, tablet, By Mouth, 2 times a day, blood pressure/ control heart rate, # 180 tablet, Refills 3, Tot. Refills 3, Maintenance, 12/11/22 11:26:00 EDT, Route to Pharmacy Electronically, [facility] [place], [place] - [id number], 167, cm, 10/10/22 10... Start Date: 12/11/22 Stop Date: 12/06/23 Status: Ordered cetirizine 10 mg oral tablet See Instructions, TAKE 1 TABLET BY MOUTH ONCE DAILY NEEDED for allergy, # 90 tablet, 1 Refills, Maintenance, 08/24/22 11:40:00 EDT, [facility], 167, cm, 08/01/22 10:08:00 EDT, Height, 89.9, kg, 05/25/21 10:21:00 EST, Dry Weight Start Date: 08/24/22 Status: Ordered coloplast #41120 pouch coloplast #21659 pouch, See Instructions, # 20 each, Refills 11, Tot. Refills 11, Maintenance, use as needed for ostomy care. 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 Fax to Andre ([facility]), 06/25/19 12:46:00 EST, Compound Start Date: 06/25/19 Status: Ordered coloplast 10727 convex 1 piece coloplast 90628 convex 1 piece, See Instructions, # 1 box, Refills 11, Tot. Refills 11, Maintenance, use for ostomy changes Dx- uc/ileostomy, 07/25/18 11:04:40 EDT, Compound Start Date: 07/25/18 Status: Ordered coloplast bags #95003 coloplast bags #03222, See Instructions, # 20 each, Refills 11, [...] bed. disp 2 pair pls fax to ... Start Date: 12/04/22 Status: Ordered contour next [...] Gm, 5 Refills, Maintenance, 06/27/22 16:38:00 EST, [facility], 30, APPLY TO PAINFUL KNEES 1 TO 2 TIMES A DAY maximum. WASH HANDS AFTER USE, 167, cm,... Start Date: 06/27/22 Status: Ordered Dovato 50 mg-300 mg oral tablet 1 tablet, By Mouth, Daily, # 90 tablet, 3 Refills, Maintenance, 12/11/22 11:27:00 EDT, Tablet, [place], [place] - [id number], Partial fill upon patient request if the [...] tablet, 11 Refills, Maintenance, 12/11/22 11:28:00 EDT, [place], [place] - [id number], 167, cm, 10/10/22 10:21:00 EDT, Height,89.9, kg, [...] Z93. 3; K51 RICH 99 Fax to [facility] [phone], 09/28/22 14:39:00 EDT, Supply Start Date: 09/28/22 [...] tablet, 3 Refills, Maintenance, 12/11/22 11:29:00 EDT, [place], [place] - [id number], 167, cm, 10/10/22 10:21:00 EDT, Height, 89.9, [...] 3 Refills, Maintenance, 12/11/22 11:28:00 EDT, Tablet, [facility] [id number], Partial fill upon patient request if the prescription is... Start Date: 12/11/22 Stop Date: 12/06/23 Status: Ordered LifeLine LifeLine, See Instructions, # 1 each, Refills 0, Tot. Refills 0, Maintenance, use to call for help in the home as directed length of need 99 B20, F32.9, F11.2 Pt address/#: [address] [facility] [address], [address] [phone] Critical Signal... Start Date: 01/15/18 Status: Ordered Lokelma 10 g oral powder for reconstitution See Instructions, DISSOLVE THE CONTENT OF 1 PACKET IN WATER AND DRINK ONCE DAILY. DO NOT TAKE WITHIN 2 HOURS OF other MEDICATIONS, # 30 pack/packet, 5 Refills, Maintenance, 12/11/22 11:32:00 EDT, [place], [place] - [id number], 167, cm... Start Date: 12/11/22 Status: Ordered [...] Date: 09/12/18 Status: Ordered No-nsting skin prep #[id number] No-nsting skin prep #[id number], See Instructions, # 1 bottle, Refills 11, Tot. Refills 11, Maintenance, Use as needed for ostomy care Dx: colostomy, 01/31/18 11:44:14 EDT, Compound Start Date: 01/31/18 Status: Ordered omeprazole 40 mg oral enteric coated capsule 1 capsule, By Mouth, 2 times a day, for acid reflux /heartburn, # 180 capsule, 3 Refills, Maintenance, 12/11/22 11:29:00 EDT, [place], [place] - [id number], 167, cm, 10/10/22 10:21:00 EDT, Height, 89.9, [...] Gm, 5 Refills, Maintenance, 08/24/22 15:20:00 EDT, [facility], 30, DISSOLVE 17GM IN WATER BEFORE TAKING. TAKE WHILE ON SUBOXONE, 167, cm, 08/01/22 10:08:00 EDT,... Start Date: 08/24/22 Status: Ordered pravastatin 40 mg oral tablet 1 tablet, By Mouth, Daily at bedtime, cholesterol reducing medication, # 90 tablet, 3 Refills, Maintenance, 12/11/22 11:30:00 EDT, [facility] [place], [place] - [id number], 167, cm, 10/10/22 10:21:00 EDT, Height, 89.9, [...] 10 Z93. 3; K51 Fax to [facility], 09/07/22 15:51:00 EDT, Supply Start Date: [...] 135 tablet, 3 Refills, Maintenance, 12/11/2310:30:00 EDT, [place], [place] - [id number], 167, cm, 10/10/22 10:21:00 EDT, Height, 89.9, [...] 90 film,1 Refills, Maintenance, 12/06/22 15:38:00 EDT, [facility] [id number], 3 film Sublingual Daily,x30 days,Instr:Fill on/after 8... Start Date: 12/06/22 Stop Date: 02/04/23 Status: Ordered traZODone 100 mg oral tablet 1, tablet, By Mouth, Daily at bedtime, PRN, as needed for sleep, # 90 tablet, Refills 3, Tot. Refills 3, Maintenance, NEEDED FOR insomnia, 12/11/22 11:32:00 EDT, Route to Pharmacy Electronically, [facility] [id number], 167,... Start Date: 12/11/22 Status: Ordered Trulicity Pen 0.75 mg/0.5 mL subcutaneous solution 0.5 mL = 0.75 mg, Subcutaneous Injection, Every week, rotate injection sites diabetes control, # 2 mL, 11 Refills, Maintenance, 12/11/22 11:27:00 EDT, Solution, [facility] [id number], Partial fill upon patient request if the... Start Date: 12/11/22 Status: Ordered Unisolve adhesive remover #[id number] Unisolve adhesive remover #433569, See Instructions, # 1 box, Refills 11, [...] Active Osteoarthritis of both hands Confirmed Active *[phone]-Genoveva katie Harris Confirmed Active SLAC (scapholunate advanced [...] Team Personnel Name: Maru Grey NP Position: [facility] PCO Associate Professional Member Role: Primary Care Nurse Address: Address: [address] [place] [address] Name: Arianne George RN Position: [facility] RN Member Role: Primary Care Nurse Name: Radha Ewing RN Position: [facility] RN Member Role: Primary Care Nurse Name: Macey Trevino RN Position: [facility] AMB Nurse Member Role: Primary Care Nurse Name: Nesha Leigh RN Position: [facility] SN RN Member Role: Primary Care Nurse Name: Alanna Ashby RN Position: [facility] RN Member Role: Primary Care Nurse Name: Loren Jimenez RN Position: [facility] RN Member Role: Primary Care Nurse Name: Starr Poon RN Position: [facility] SN RN Member Role: Primary Care Nurse Name: Vilma Perez RN Position: [facility] MR W/ Merge Member Role: Primary Care Nurse Name: John Noguera RN Position: [facility] RN Member Role: Primary Care Nurse Name: Dunia Arechiga RN Position: [facility] RN Member Role: Primary Care Nurse Name: Kamilah Baron Position: [facility] PCO TA Member Role: Primary Care Nurse Name: Ro Lopez RN Position: [facility] RN Member Role: Primary Care Nurse Name: Kosta Braun III, RN Position: [facility] RN Member Role: Primary Care Nurse Name: Lauryn Jiménez RN Position: [facility] Hospital Audiology Assistant Member Role: Primary Care Nurse Name: Jorge Ching RN Position: [facility] RN Member Role: Primary Care Nurse Name: Valarie Srivastava RN Position: [facility] RN Member Role: Primary Care Nurse Name: Monica Jacobs RN Position: [facility] RN Member Role: Primary Care Nurse Name: Johanna Castaneda RN Position: [facility] RN Member Role: Primary Care Nurse Address: Address: [address] [place] [address]- Name: Luisa Zavaleta RN Position: [facility] AMB Nurse Member Role: Primary Care Nurse Name: Yulissa Mora RN Position: [facility] SN RN Member Role: Primary Care Nurse Name: Francine Abrams RN Position: [facility] RN Member Role: Primary Care Nurse Name: Shea Marinelli RN Position: [facility] RN Member Role: Primary Care Nurse Name: Mora Gooden MD Position: [facility] Physician - Primary Care Member Role: PCP Address: Address: [address] [place] [address]- Care Team Related Persons Name: PEGGY GARDNER Address: home [address] [place] [address] Name: JLUIS WHITE STAGE NAME Name: ADIA WINTERS
--- OUTSIDE RECORDS SUMMARY | 2023-01-11 13:06 | XMS_ITS | Continuity of Care Document ---
Author Name Unknown Organization [facility] Address [address] [place] [address]- Care Team Providers Care Executive Marketing Assistant Name Role Phone Mora Gooden MD Primary Care Physician [facility]counter [facility] Date(s): 11/20/22 - 12/20/[address] [address]- Allergies, Adverse Reactions, Alerts Substance Reaction Severity Status ampicillin Active aspirin BLEEDING Persistent Severe Active NSAIDs bleeding Persistent Severe Active Pollen NASAL CONGESTION SNEEZING Persistent Mode rate Active Immunizations Given and Recorded Vaccine Date Status Refusal Reason [id number] 12y+ bivalent booster vax 02/02/22 Recorded SARS-CoV-2 [...] VIS 10/03 4Result Comment: [12/07/2016] diluent LOT [id number] EXP 03/29/2018 5Result Comment: [07/18/2016] Liquid component: [id number], exp.: 05/2017 6Admin Note: VIS 12/13/2006 7Admin Note: vis 10/30/11 8Admin Note: vis [id number] 9Admin Note: done at [facility] this past march 10Admin Note: VIS GIVEN 2008- 11Admin Note: vis 11/25/06 Medications acetaminophen 500 mg oral tablet 1 tablet, By Mouth, 4 times a day, PRN NEEDED FOR PAIN, TAKE ONLY IF needed, # 100 tablet, 11 Refills, Maintenance, 10/06/22 14:19:00 EDT, [facility], 167, cm, 08/01/22 10:08:00 EDT, Height, 89.9, kg, 05/25/21 10:21:00 EST, Dry Weight Start Date: 10/06/22 Status: Ordered Albuterol (Eqv-ProAir HFA) 90 mcg/inh inhalation aerosol 2 puffs, Inhalation, 4 times a day, PRN NEEDED FOR SHORTNESS OF BREATH OR FOR WHEEZING, # 25.5 Gm, 11 Refills, 12/11/22 11:24:00 EDT, [facility] [place], [place] - [id number], 4, 2 puffs Inhalation 4 times a [...] Maintenance, 12/11/22 11:52:00 EDT, Route toPharmacy Electronically, [facility]... Start Date: 12/11/22 Status: Ordered azelastine 0.05% [...] 09/09/21 Status: Ordered Talbert Elastic barrier strips #973061 Talbert Elastic barrier strips #805300, See Instructions, # 120 each, Refills 11, Tot. Refills 11, Maintenance, Dx: K51; Z93. 3 sig: use 4 strips a day with ostomy bag. disp: 4 bags of 30 strips = 120 strips per month. Fax to [facility] [phone], ... Start Date: 11/09/22 Status: Ordered busPIRone 5 mg oral tablet 1, tablet, By Mouth, 3 times a day, PRN, for anxiety, # 270 tablet, Refills 3, Tot. Refills 3, Maintenance, NEEDED FOR ANXIETY, 12/11/22 11:26:00 EDT, Route to Pharmacy Electronically, [place], [place] - [id number], 167, cm, 06/13/... Start Date: 12/11/22 Stop Date: 12/06/23 Status: Ordered carvedilol 12.5 mg oral tablet 1, tablet, By Mouth, 2 times a day, blood pressure/ control heart rate, # 180 tablet, Refills 3, Tot. Refills 3, Maintenance, 12/11/22 11:26:00 EDT, Route to Pharmacy Electronically, [facility] - [place], [place] - [id number], 167, cm, 10/10/22 10... Start Date: 12/11/22 Stop Date: 12/06/23 Status: Ordered cetirizine 10 mg oral tablet See Instructions, TAKE 1 TABLET BY MOUTH ONCE DAILY NEEDED for allergy, # 90 tablet, 1 Refills, Maintenance, 08/24/22 11:40:00 EDT, [facility], 167, cm, 08/01/22 10:08:00 EDT, Height, 89.9, kg, 05/25/21 10:21:00 EST, Dry Weight Start Date: 08/24/22 Status: Ordered coloplast #88332 pouch coloplast #74608 pouch, See Instructions, # 20 each, Refills 11, Tot. Refills 11, Maintenance, use as needed for ostomy care. 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 Fax to Andre ([facility]), 06/25/19 12:46:00 EST, Compound Start Date: 06/25/19 Status: Ordered coloplast 24934 convex 1 piece coloplast 73659 convex 1 piece, See Instructions, # 1 box, Refills 11, Tot. Refills 11, Maintenance, use for ostomy changes Dx- uc/ileostomy, 07/25/18 11:04:40 EDT, Compound Start Date: 07/25/18 Status: Ordered coloplast bags #52828 coloplast bags #92780, See Instructions, # 20 each, Refills 11, [...] Gm, 5 Refills, Maintenance, 06/27/22 16:38:00 EST, [facility], 30, APPLY TO PAINFUL KNEES 1 TO 2 TIMES A DAY maximum. WASH HANDS AFTER USE, 167, cm,... Start Date: 06/27/22 Status: Ordered Dovato 50 mg-300 mg oral tablet 1 tablet, By Mouth, Daily, # 90 tablet, 3 Refills, Maintenance, 12/11/22 11:27:00 EDT, Tablet, [place], [place] - [id number], Partial fill upon patient request if the [...] tablet, 11 Refills, Maintenance, 12/11/22 11:28:00 EDT, [place], [place] - [id number], 167, cm, 10/10/22 10:21:00 EDT, Height,89.9, kg, [...] Z93. 3; K51 RICH 99 Fax to [facility] [phone], 09/28/22 14:39:00 EDT, Supply Start Date: 09/28/22 [...] tablet, 3 Refills, Maintenance, 12/11/22 11:29:00 EDT, [place], [place] - [id number], 167, cm, 10/10/22 10:21:00 EDT, Height, 89.9, [...] 3 Refills, Maintenance, 12/11/22 11:28:00 EDT, Tablet, [facility] [id number], Partial fill upon patient request if the prescription is... Start Date: 12/11/22 Stop Date: 12/06/23 Status: Ordered LifeLine LifeLine, See Instructions, # 1 each, Refills 0, Tot. Refills 0, Maintenance, use to call for help in the home as directed length of need 99 B20, F32.9, F11.2 Pt address/#: [address] [facility] [address], [address] [phone] Critical Signal... Start Date: 01/15/18 Status: Ordered Lokelma 10 g oral powder for reconstitution See Instructions, DISSOLVE THE CONTENT OF 1 PACKET IN WATER AND DRINK ONCE DAILY. DO NOT TAKE WITHIN 2 HOURS OF other MEDICATIONS, # 30 pack/packet, 5 Refills, Maintenance, 12/11/22 11:32:00 EDT, [place], [place] - [id number], 167, cm... Start Date: 12/11/22 Status: Ordered [...] Date: 09/12/18 Status: Ordered No-nsting skin prep #98967196 No-nsting skin prep #32920410, See Instructions, # 1 bottle, Refills 11, Tot. Refills 11, Maintenance, Use as needed for ostomy care Dx: colostomy, 01/31/18 11:44:14 EDT, Compound Start Date: 01/31/18 Status: Ordered omeprazole 40 mg oral enteric coated capsule 1 capsule, By Mouth, 2 times a day, for acid reflux /heartburn, # 180 capsule, 3 Refills, Maintenance, 12/11/22 11:29:00 EDT, [place], [place] - [id number], 167, cm, 10/10/22 10:21:00 EDT, Height, 89.9, [...] Gm, 5 Refills, Maintenance, 08/24/22 15:20:00 EDT, [facility], 30, DISSOLVE 17GM IN WATER BEFORE TAKING. TAKE WHILE ON SUBOXONE, 167, cm, 08/01/22 10:08:00 EDT,... Start Date: 08/24/22 Status: Ordered pravastatin 40 mg oral tablet 1 tablet, By Mouth, Daily at bedtime, cholesterol reducing medication, # 90 tablet, 3 Refills, Maintenance, 12/11/22 11:30:00 EDT, [facility] - [place], [place] - [id number], 167, cm, 10/10/22 10:21:00 EDT, Height, 89.9, [...] 135 tablet, 3 Refills, Maintenance, 12/11/2310:30:00 EDT, [place], [place] - [id number], 167, cm, 10/10/22 10:21:00 EDT, Height, 89.9, [...] 90 film,1 Refills, Maintenance, 12/06/22 15:38:00 EDT, [facility] [id number], 3 film Sublingual Daily,x30 days,Instr:Fill on/after 8... Start Date: 12/06/22 Stop Date: 02/04/23 Status: Ordered traZODone 100 mg oral tablet 1, tablet, By Mouth, Daily at bedtime, PRN, as needed for sleep, # 90 tablet, Refills 3, Tot. Refills 3, Maintenance, NEEDED FOR insomnia, 12/11/22 11:32:00 EDT, Route to Pharmacy Electronically, [facility] [id number], 167,... Start Date: 12/11/22 Status: Ordered Trulicity Pen 0.75 mg/0.5 mL subcutaneous solution 0.5 mL = 0.75 mg, Subcutaneous Injection, Every week, rotate injection sites diabetes control, # 2 mL, 11 Refills, Maintenance, 12/11/22 11:27:00 EDT, Solution, [facility] [id number], Partial fill upon patient request if the... Start Date: 12/11/22 Status: Ordered Unisolve adhesive remover #[id number] Unisolve adhesive remover #439127, See Instructions, # 1 box, Refills 11, [...] Active Osteoarthritis of both hands Confirmed Active *[phone]-Genoveva katie Harris Confirmed Active SLAC (scapholunate advanced [...] Team Personnel Name: Maru Grey NP Position: [facility]O Associate Professional Member Role: Primary Care Nurse Address: Address: [address] [place] [address] Name: Arianne George RN Position: [facility] RN Member Role: Primary Care Nurse Name: Radha Ewing RN Position: [facility] RN Member Role: Primary Care Nurse Name: Macey Trevino RN Position: [facility] AMB Nurse Member Role: Primary Care Nurse Name: Nesha Leigh RN Position: [facility] SN RN Member Role: Primary Care Nurse Name: Alanna Ashby RN Position: [facility] RN Member Role: Primary Care Nurse Name: Loren Jimenez RN Position: [facility] RN Member Role: Primary Care Nurse Name: Starr Poon RN Position: [facility] SN RN Member Role: Primary Care Nurse Name: Vilma Perez RN Position: [facility] MR W/ Merge Member Role: Primary Care Nurse Name: John Noguera RN Position: [facility] RN Member Role: Primary Care Nurse Name: Dunia Arechiga RN Position: [facility] RN Member Role: Primary Care Nurse Name: Kamilah Baron Position: [facility] PCO TA Member Role: Primary Care Nurse Name: Ro Lopez RN Position: [facility] RN Member Role: Primary Care Nurse Name: Kosta Braun III, RN Position: [facility] RN Member Role: Primary Care Nurse Name: Lauryn Jiménez RN Position: [facility] Hospital Cutting Supervisor Member Role: Primary Care Nurse Name: Jorge Ching RN Position: [facility] RN Member Role: Primary Care Nurse Name: Valarie Srivastava RN Position: [facility] RN Member Role: Primary Care Nurse Name: Monica Jacobs RN Position: [facility] RN Member Role: Primary Care Nurse Name: Johanna Castaneda RN Position: [facility] RN Member Role: Primary Care Nurse Address: Address: [address] [place] [address]- Name: Luisa Zavaleta RN Position: [facility] AMB Nurse Member Role: Primary Care Nurse Name: Yulissa Mora RN Position: [facility] SN RN Member Role: Primary Care Nurse Name: Francine Abrams RN Position: [facility] RN Member Role: Primary Care Nurse Name: Shea Marinelli RN Position: [facility] RN Member Role: Primary Care Nurse Name: Mora Gooden MD Position: [facility] Physician - Primary Care Member Role: PCP Address: Address: [address] [place] [address]- Care Team Related Persons Name: PEGGY GARDNER Address: home [address] [place] [address] Name: JLUIS WHITE STAGE NAME Name: ADIA WINETRS
--- NOTE | 2023-01-11 13:36 | ECG_ITS ---
Test Reason : FALL Blood Pressure : / mmHG Vent. Rate : 074 BPM Atrial Rate : 074 BPM P-R Int : 148 ms QRS Dur : 086 ms QT Int : 380 ms P-R-T Axes : 009 006 052 degrees QTc Int : 421 ms Normal sinus rhythm Septal infarct , age undetermined Abnormal ECG When compared with ECG of 18-JUN-2021 17:57, Septal infarct is now Present Referred By: Chayito Fabian Electronically Signed By:ALBINA VALLADARES
--- NOTE | 2023-01-11 13:59 | ED_ITS ---
HPI - Fall General Chief Complaint: Fall Stated Complaint: FALL T-1,ON FLOOR SINCE,LOW BACK PAIN Time Seen by Provider: 01/11/23 13:07 Source: patient Mode of arrival: EMS History of Present Illness HPI Narrative: 72-year-old male who lives at home by himself, has undergone a recent exploratory laparotomy and states that his legs were weak and gave out on him last night causing him to fall on his bottom. He denies any current pain, he denies any head strike, use blood thinners, and denies any dizziness/palpitations/shortness of breath prior to the fall. The fall occurred at 20:00 last night and he was found by his home health aide this morning. Related Data Home Medications Medication Instructions Recorded Confirmed albuterol sulfate 90 mcg/actuation 2 puff inhalation QID PRN 06/06/21 01/11/23 aerosol inhaler Respiratory Distress buprenorphine 8 mg-naloxone 2 mg 1 film sublingual TID 06/06/21 01/11/23 sublingual film buspirone 5 mg tablet 5 mg PO TID 06/06/21 01/11/23 carvedilol 12.5 mg tablet 12.5 mg PO BID 06/06/21 01/11/23 cetirizine 10 mg tablet 10 mg PO DAILY PRN Allergic 06/06/21 01/11/23 Symptoms gabapentin 600 mg tablet 600 mg PO BID 06/06/21 01/11/23 hydrochlorothiazide 12.5 mg tablet 12.5 mg PO DAILY 06/06/21 01/11/23 pravastatin 40 mg tablet 40 mg PO BEDTIME 06/06/21 01/11/23 sertraline 50 mg tablet 75 mg PO DAILY 06/06/21 01/11/23 trazodone 100 mg tablet 100 mg PO BEDTIME PRN Sleep 06/06/21 01/11/23 amlodipine 5 mg tablet 5 mg PO DAILY 12/18/22 01/11/23 dolutegravir 50 mg-lamivudine 300 1 tab PO DAILY 12/18/22 01/11/23 mg tablet (Dovato) dulaglutide 0.75 mg/0.5 mL 0.75 mg subcut MO 12/18/22 01/11/23 subcutaneous pen injector (Trulicity) empagliflozin 10 mg tablet 10 mg PO DAILY 12/18/22 01/11/23 (Jardiance) loperamide 2 mg tablet 2 mg PO Q6H PRN Diarrhea 12/18/22 01/11/23 (Anti-Diarrheal (loperamide)) Previous Rx's Medication Instructions Recorded omeprazole 40 mg capsule,delayed 40 mg PO BID 30 days #60 caps 06/10/21 release sodium bicarbonate 650 mg tablet 1,300 mg (2 x 650 mg) PO BID #120 01/08/23 tabs oxycodone 5 mg tablet 5 mg PO Q4H PRN pain (scale score 01/10/23 7-10) #14 tabs Allergies Allergy/AdvReac Type Severity Reaction Status Date / Time ampicillin [AMPICILLIN] Allergy Mild HIVES Verified 06/07/21 12:29 aspirin [ASPIRIN] Allergy Unknown RASH Verified 06/07/21 12:29 Review of Systems 2 Review of Systems: Pertinent positives and negatives as stated in HPI [facility] Past Medical History Source: nursing notes reviewed Medical History Hyperlipemia Pancreatitis CKD (chronic kidney disease) HIV (human immunodeficiency virus infection) Chronic hepatitis Chronic use of nonprescription opiate drugs Ulcerative colitis Diabetes mellitus HTN (hypertension), benign Surgical History Hx of cholecystectomy Hx of splenectomy Status post right hip replacement History of total left knee replacement (TKR) H/O colectomy Social History Social History Household Members: None Housing: Apartment Do you presently have visiting nurse or other home services: No Alcohol intake: never Patient Tobacco Use Status: Former Tobacco user Quit Date: 15 yrs ago Tobacco use type: Cigarette Smoked in Last 30 Days: No Use of substances other than those prescribed or required for medical reasons: No Advance Directives: Yes Advance Directives on File: Yes Advance Directives Date on File: 06/07/21 service: No Current occupational status: disabled Physical Exam 2 Vital Signs: Vital Signs: Last Vital Signs Temp 98.1 F 01/11/23 21:08 Pulse 71 01/11/23 21:08 Resp 16 01/11/23 21:08 BP 143/67 H 01/11/23 21:08 Pulse Ox 95 01/11/23 21:08 O2 Del Method Room Air 01/11/23 21:08 BMI result Body Mass Index 31.0 VITAL SIGNS: Reviewed. GENERAL: Well developed, well nourished, in no acute distress. HEAD: Normocephalic/atraumatic EYES: PERRLA, EOMI EARS: Ext canals without abnormality NOSE: Nares patent bilateral OROPHARYNX: no oral lesions noted, posterior pharynx clear and non-erythematous without noted tonsillar enlargement/erythema/exudates NECK: C-collar in place, Supple, no adenopathy, no cervical spine tenderness on palpation or step-offs LUNGS: Normal breath sounds. No adventitious sounds or accessory muscle use. SpO2<97> CARDIOVASCULAR: Regular rate and rhythm without noted murmurs, no JVD or lower extremity edema. ABDOMEN: Soft, non-tender, non-distended with bowel sounds, there is a midline abdominal dressing in place, there is also an ostomy located at the right lower abdomen that is patent with gas and liquid stool. PELVIS: Stable, nontender MUSCULOSKELETAL: No tenderness, deformities, or effusions noted on gross inspection. EXTREMITIES: No cyanosis, clubbing or edema. SKIN: Inspection of the skin reveals no rashes, ulcerations, jaundice, pallor, or petechiae. NEUROLOGIC: Alert and oriented x 3. Strength and sensation to light touch were grossly intact x 4. Medications Administered Discontinued Medications Generic Name Dose Route Start Last Admin Trade Name Freq PRN Reason Stop Dose Admin Fentanyl 25 mcg 01/11/23 17:27 01/11/23 20:52 Fentanyl Citrate/Pf 100 Mcg/2 Ml Vial IVPUSH 01/11/23 17:28 Not Given ONCE ONE Protocol Sodium Chloride 500 mls @ 999 mls/hr 01/11/23 17:30 01/11/23 20:52 Ns IV 01/11/23 18:00 Not Given .Q31M RASHAD Oxycodone HCl 5 mg 01/11/23 20:39 01/11/23 20:50 Oxycodone Hcl Immed Release 5 Mg Tablet PO 01/11/23 20:40 5 mg ONCE ONE Administration Medical Decision Making Medical Decision Making [facility] Narrative: 1402: 72-year-old male with history and clinical presentation, DDX: Fall secondary to infection, dehydration, physical deconditioning, low clinical suspicion for intracranial bleed, cervical spine fracture/subluxation. I reviewed all investigations patient has a chronically stable leukocytosis with chronically stable macrocytic anemia, platelet count was not reported but history consistent with elevated platelet count. On review of chemistry indices the potassium level is within normal limits, patient has chronic CKD which is likely the etiology behind the mild metabolic acidosis. Liver enzyme values are without abnormalities. Urinalysis negative for UTI or hematuria. There is no elevation of CK. CT of the head negative for intracranial hemorrhage and no evidence on C-spine of fracture or subluxation and otherwise my interpretation is in agreement with radiology's impression of both studies. Ambulation test at the bedside with a walker demonstrates that patient is pretty physically deconditioned, slightly unsteady on his feet although he is able to ambulate with a walker. Patient appears to be quite stiff . I will place patient in for case management and physical therapy, possibly short-term rehab. Patient placed in physician observation because the patient needed more time for evaluation by case management and physical therapy. At the time observation was started the patient's vital signs were stable, patient is alert, neuro: Nonfocal, CV RRR, lungs clear In the meantime, I have placed a wound care consult in the event that it takes some time to get patient placed in to short-term rehab. In addition, there were C-spine findings on the CT scan that raise questions for possible infiltrative disease such as myeloma and I placed a consult for evaluation by hematology/oncology. Differential Diagnosis Differential Diagnoses: The differential diagnosis associated with the presentation includes Please see the discussion above Admission/Observation Consideration of admission/observation: Escalation of care including admission/observation considered Please see the discussion above Consult Healthcare Provider Management of the patient was discussed with: Customer Sales Advisor Please see the discussion above Lab Data MDM Lab Attestation statement: I reviewed the patient's lab results. Please see the discussion above 01/11/23 14:57 01/11/23 14:25 Labs: Lab Results 01/11/23 01/11/23 Range/Units 14:25 14:57 WBC 25.4 H (4.8-10.8) X10*3/uL RBC 2.93 L (4.60-5.80) X10*6/uL Hgb 9.9 L (14.0-18.0) g/dl Hct 29.4 L (42.0-52.0) % MCV 100.3 H (80.0-98.0) fL MCH 33.8 H (27.0-33.0) pg MCHC 33.7 (31.0-36.0) g/dl RDW 14.2 (11.0-16.0) % Plt Count Not Reportable MPV 10.4 (9.4-12.4) fL Immature Gran % (Auto) Cancelled Neut % (Auto) Cancelled Lymph % (Auto) Cancelled [place] % (Auto) Cancelled Eos % (Auto) Cancelled Baso % (Auto) Cancelled Lymph # (Auto) Cancelled [place] # (Auto) Cancelled Eos # (Auto) Cancelled Baso # (Auto) Cancelled Abs Immat Gran (auto) Cancelled Absolute Neuts (auto) Cancelled Absolute Nucleated RBC 0.030 H (0.0-0.012) X10*3/uL Nucleated RBC % (auto) 0.1 (0.0-0.2) /100WBC Neutrophils % (Manual) 88 H (45-73) % Band Neutrophils % 3 (3-5) % Lymphocytes % (Manual) 7 L (20-40) % Monocytes % (Manual) 2 (2-11) % Abs Neuts (Manual) 23.1 H (2.0-8.3) X10*3/uL Lymphocytes # (Manual) 1.8 (1.2-4.9) X10*3/uL Monocytes # (Manual) 0.5 (0.1-1.2) X10*3/uL Toxic Vacuolation PRESENT Platelet Estimate INCREASED (NORMAL) Plt Morphology Comment NORMAL RBC Morphology NOTED Polychromasia 1+ (0-2) /OIF Macrocytosis 1+ (5-14) /OIF [place] Cells 1+ (0-2) /OIF Sodium 140 (135-145) mmol/L Potassium 4.4 (3.3-5.1) mmol/L Chloride 115 H (96-108) mmol/L Carbon Dioxide 20 L (22-29) mmol/L Anion Gap 9 L (12-20) BUN 36 H (9-16) mg/dL Creatinine 1.61 H (0.5-1.4) mg/dL Estim Creat Clear Calc 42.2 Estimated GFR 42 Random Glucose 177 H (60-115) mg/dL Calcium 9.3 D (8.4-10.2) mg/dL Total Bilirubin 0.3 (0.0-1.0) mg/dL AST 19 (5-37) U/L ALT 10 (0-40) U/L Alkaline Phosphatase 62 (39-117) U/L Total Creatine Kinase 103 (38-174) U/L Total Protein 6.9 (6.5-8.0) g/dL Albumin 2.6 L (3.5-5.0) g/dL Urine Color Yellow Urine Appearance Clear Urine pH 5.5 (5.0-9.0) Ur Specific [place] 1.015 (1.005-1.025) Urine Protein 30 (1+) H (Neg-Trace) mg/dL Urine Glucose (UA) Negative (Negative) mg/dL Urine Ketones Negative (Negative) mg/dL Urine Blood Small (1+) H (Negative) Urine Nitrite Negative (Negative) Ur Leukocyte Esterase Negative (Negative) Urine RBC 0-2 (0-2) /HPF Urine WBC 0-5 (0-5) /HPF Ur Squamous Epith Cells 0-2 (0-2) /HPF Urine Bacteria None Seen (None Seen) Hyaline Casts 0-2 (0-2) /LPF Independent Interpretation I performed an independent interpretation of an: EKG Interpretation: Normal sinus rhythm, HR-74, no STEMI, AL/QRS/QTC is within normal limits. Radiology Impression Discussion of test interpretation with radiology: I have reviewed the radiologist's reading. Radiologist Impression: Please see the discussion above External Record Review External record reviewed: Outpatient record, Prior outpatient labs and Prior outpatient radiology Chronic Conditions Patient?s care impacted by: Hypertension and Other CKD Critical Care Time Critical Care Time Critical Care Time: Yes Total Critical Care Time: 30 Attestation: I personally attest to this time spent taking care of the patient. Discharge Plan Discharge Clinical Impression: Physical deconditioning, Leukocytosis, CKD (chronic kidney disease), Open abdominal wall wound Patient Disposition: Still a Patient Prescriptions: No Action buspirone 5 mg Tablet 5 mg PO TID gabapentin 600 mg Tablet 600 mg PO BID carvedilol 12.5 mg Tablet 12.5 mg PO BID Rx Instructions: must administer with a meal/food cetirizine 10 mg Tablet 10 mg PO DAILY PRN (Reason: Allergic Symptoms) pravastatin 40 mg Tablet 40 mg PO BEDTIME trazodone 100 mg Tablet 100 mg PO BEDTIME PRN (Reason: Sleep) albuterol sulfate 90 mcg/actuation Hfa Aerosol Inhaler 2 puff INHALATION QID PRN (Reason: Respiratory Distress) sertraline 50 mg Tablet 75 mg PO DAILY hydrochlorothiazide 12.5 mg Tablet 12.5 mg PO DAILY Hold Instructions: hold until repeat labs in one week or you speak with PCP buprenorphine-naloxone 8-2 mg Film 1 film SUBLINGUAL TID omeprazole 40 mg capsule,delayed release(DR/EC) 40 mg PO BID 30 Days Qty: 60 0RF loperamide [Anti-Diarrheal (loperamide)] 2 mg tablet 2 mg PO Q6H PRN (Reason: Diarrhea) amlodipine 5 mg tablet 5 mg PO DAILY Jardiance 10 mg tablet 10 mg PO DAILY Dovato 50-300 mg tablet 1 tab PO DAILY Trulicity 0.75 mg/0.5 mL pen injector 0.75 mg subcut MO sodium bicarbonate 650 mg Tablet 1,300 mg PO BID Qty: 120 0RF oxycodone 5 mg tablet 5 mg PO Q4H PRN (Reason: pain (scale score 7-10)) Qty: 14 0RF Rx Instructions: Partial Fill upon patient request.
[2023-01-11 14:35] LABS: Appearance Urine Clear; Color Urine Yellow; Glucose Urine UA Negative (Negative); Leukocyte Esterase Urine Negative (Negative); Nitrite Urine Negative (Negative); PH 5.5 (5.0-9.0); Specific Gravity - Urine 1.015 (1.005-1.025); UMIC TRIGGER UACC YES; Urine Blood Small (1+) (Negative); Urine Ketones Negative (Negative); Urine Protein 30 (1+) mg/dL (Neg-Trace)
[2023-01-11 14:48] LABS: Bacteria Urine None Seen (None Seen); Hyaline Casts Urine 0-2 /LPF (0-2); RBC Urine 0-2 /HPF (0-2); Squamous Epithelial Cell Urine 0-2 /HPF (0-2); WBC Urine 0-5 /HPF (0-5)
[2023-01-11 14:51] LABS: Alanine Aminotransferase 10 U/L (0-40); Albumin Level 2.6 g/dL (3.5-5.0); Alkaline Phosphatase 62 U/L (39-117); Anion Gap 9 (12-20); Aspartate Amino Transferase 19 U/L (5-37); Bilirubin Total 0.3 mg/dL (0.0-1.0); Blood Urea Nitrogen 36 mg/dL (9-16); Calcium 9.3 mg/dL (8.4-10.2); Carbon Dioxide 20 mmol/L (22-29); Chloride 115 mmol/L (96-108); Creatinine Clr Calc Pharmacy 42.2; Estimated Glomerular Filt Rate 42; Glucose Random 177 mg/dL (60-115); Potassium 4.4 mmol/L (3.3-5.1); Sodium 140 mmol/L (135-145); Total Protein 6.9 g/dL (6.5-8.0)
[2023-01-11 15:15] LABS: NRBC Pct Auto 0.1 /100WBC (0.0-0.2); PLT CLUMP 1
[2023-01-11 15:17] LABS: Hematocrit 29.4 % (42.0-52.0); Hemoglobin 9.9 g/dl (14.0-18.0); Mean Corpuscular HGB Conc 33.7 g/dl (31.0-36.0); Mean Corpuscular Hemoglobin 33.8 pg (27.0-33.0); Mean Corpuscular Volume 100.3 fL (80.0-98.0); Mean Platelet Volume 10.4 fL (9.4-12.4); Red Blood Count 2.93 X10*6/uL (4.60-5.80); Red Cell Distribution Width 14.2 % (11.0-16.0)
[2023-01-11 15:19] LABS: WBC ABN SCTR FOR CBC 1; White Blood Count 25.4 X10*3/uL (4.8-10.8)
[2023-01-11 15:44] LABS: Band Neutrophils Percent 3 % (3-5); Lymphocytes Absolute Manual 1.8 X10*3/uL (1.2-4.9); Lymphocytes Percent Manual 7 % (20-40); Monocytes Absolute Manual 0.5 X10*3/uL (0.1-1.2); Monocytes Percent Manual 2 % (2-11); Neutrophils Absolute Manual 23.1 X10*3/uL (2.0-8.3); Neutrophils Percent Manual 88 % (45-73)
[2023-01-11 15:45] LABS: RBC Morphology NOTED
[2023-01-11 15:46] LABS: Burr Cells 1+ (0-2) /OIF; Macrocytosis 1+ (5-14) /OIF; Polychromasia 1+ (0-2) /OIF; Toxic Vacuolation PRESENT
[2023-01-11 15:47] LABS: Platelet Estimate INCREASED (NORMAL); Platelet Morphology Comment NORMAL
[2023-01-11 17:09] VITALS: BP 172/82; PULSE 76; RESP 15; O2SAT 98
[2023-01-11] MEDS: oxyCODONE HCl Immed Release 5 MG TABLET PO (20:50)
[2023-01-11 21:08] VITALS: BP 143/67; PULSE 71; RESP 16; TEMP 36.7; O2SAT 95
[2023-01-11 22:13] VITALS: BP 127/64; PULSE 69; RESP 20; TEMP 36.8; O2SAT 96
[2023-01-12] VITALS (8 sets, daily range): BP systolic 121–176; BP diastolic 55–82; PULSE 67–76; RESP 13–20; TEMP 36.7; O2SAT 93–97
--- NOTE | 2023-01-12 04:54 | PC.NURSE ---
This RN took over care at approxiately 1900. Pt wi no IV access. This RN unable to obtain access. Discussed with another nurse who was also unable to get IV access. notified. PO pain meds ordered, and adminitered. Patient ambulated 2 assist to BR. Pt very weak, discussed with . Pt will stay and see PT/Case management.
--- NOTE | 2023-01-12 08:10 | PHA.MEDREC ---
Pharmacy Consult ? Medication Reconciliation Pharmacy has completed the medication reconciliation. Reviewed med rec done by nursing
[2023-01-12 08:53] LABS: COVID-19 Test Negative (Negative); IDNOW Serial# BCCEAD1C
--- NOTE | 2023-01-12 08:55 | MHC.CM.ED ---
Received case management consult overnight. Patient was d/c'd from [facility] [facility] on 01/10/23. STR was rec at that time. Patient declined and went home with resumption of [facility]. Patient fell and returned to ER 01/11. Physical therapy eval completed. Short term rehab is recommended. Patient is on Suboxone from Dr Gooden in [place]. Anticipate patient will be difficult to place due to this. Referral broadcasted to all facilities contracted with insurance within 25 miles of patient's residence. [facility] is able to offer a bed. Patient is agreeable. [facility] has been asked to go for ins auth. ER provider will need to send a 7 day prescription for Suboxone. Continue to monitor for d/c needs.
--- NOTE | 2023-01-12 10:59 | PC.NURSE ---
emptied the pt's colostomy bag of medium amount of loose stool, stoma appears good/pink in color
[2023-01-12] MEDS: Sertraline HCL 25 MG TABLET 75 MG PO (11:06)
[2023-01-12] MEDS: carvediloL 12.5 MG TABLET PO (11:07)
[2023-01-12] MEDS: busPIRone HCl 5 MG TABLET PO (11:07)
[2023-01-12] MEDS: Sodium Bicarbonate 650 MG TABLET 1300 MG PO (11:07)
[2023-01-12] MEDS: hydroCHLOROthiazide 12.5 MG TABLET PO (11:07)
[2023-01-12] MEDS: Buprenorphine/Naloxone 8/2 mg FILM 1 FILM SUBLINGUAL (11:08)
[2023-01-12] MEDS: Gabapentin 600 MG TABLET PO (11:08)
[2023-01-12] MEDS: amLODIPine Besylate 5 MG TABLET PO (11:08)
--- NOTE | 2023-01-12 12:22 | P.CONWO_ITS ---
History of Present Illness Data of Consult Service Date: 01/12/23 Requesting physician: Chayito Fabian Primary Care Provider: Noemi Ruffin MD HPI Reason for consult: healing ex lap incision, awaitng STR placement This is a 72-year-old man who is postop day 6 from general surgery for small bowel obstruction. This is an inappropriate consult for wound care. If you need Dr. Hicks, please go through Dr. Vo saw office for general surgery. Review of Systems 2 Review of Systems: Patient is a poor historian. He does not know his date of surgery. He does not feel well. His appetite is poor. [facility] Medical History Hyperlipemia Pancreatitis CKD (chronic kidney disease) HIV (human immunodeficiency virus infection) Chronic hepatitis Chronic use of nonprescription opiate drugs Ulcerative colitis Diabetes mellitus HTN (hypertension), benign Surgical History Hx of cholecystectomy Hx of splenectomy Status post right hip replacement History of total left knee replacement (TKR) H/O colectomy Social History Household Members: None Housing: Apartment Do you presently have visiting nurse or other home services: No Alcohol intake: never Patient Tobacco Use Status: Former Tobacco user Quit Date: 15 yrs ago Tobacco use type: Cigarette Smoked in Last 30 Days: No Use of substances other than those prescribed or required for medical reasons: No Advance Directives: Yes Advance Directives on File: Yes Advance Directives Date on File: 06/07/21 service: No Current occupational status: disabled Meds Allergies Allergy/AdvReac Type Severity Reaction Status Date / Time ampicillin [AMPICILLIN] Allergy Mild HIVES Verified 06/07/21 12:29 aspirin [ASPIRIN] Allergy Unknown RASH Verified 06/07/21 12:29 Active Medications: Current Medications Albuterol Sulfate (Albuterol Sulfate 90 Mcg 8 Gm Inhaler) 2 puff INHALE QID PRN PRN Reason: Respiratory Distress Amlodipine Besylate (Amlodipine Besylate 5 Mg Tablet) 5 mg PO DAILY RASHAD; Protocol Last Admin: 01/12/23 11:08 Dose: 5 mg Buprenorphine/Naloxone (Buprenorphine/Naloxone 8/2 Mg Film) 1 film SUBLINGUAL TID RASHAD Last Admin: 01/12/23 11:08 Dose: 1 film Buspirone HCl (Buspirone Hcl 5 Mg Tablet) 5 mg PO TID [facility] Last Admin: 01/12/23 11:07 Dose: 5 mg Carvedilol (Carvedilol 12.5 Mg Tablet) 12.5 mg PO BID [facility]; Protocol Last Admin: 01/12/23 11:07 Dose: 12.5 mg Dolutegravir Sodium (Dolutegravir Sodium 50 Mg Tablet) 50 mg PO DAILY [facility] Empagliflozin (Empagliflozin 10 Mg Tablet) 10 mg PO DAILY [facility] Gabapentin (Gabapentin 600 Mg Tablet) 600 mg PO BID [facility] Last Admin: 01/12/23 11:08 Dose: 600 mg Hydrochlorothiazide (Hydrochlorothiazide 12.5 Mg Tablet) 12.5 mg PO DAILY [facility]; Protocol Last Admin: 01/12/23 11:07 Dose: 12.5 mg Lamivudine (Lamivudine 150 Mg Tablet) 300 mg PO DAILY [facility] Loperamide HCl (Loperamide Hcl 2 Mg Capsule) 2 mg PO Q6H PRN PRN Reason: Diarrhea Loratadine (Loratadine 10 Mg Tablet) 10 mg PO DAILY PRN PRN Reason: Allergic Symptoms Non-Formulary Medication (Dulaglutide [Trulicity]) 0.75 mg SUBCUT MO [facility] Omeprazole (Omeprazole 40 Mg Capsule.Dr) 40 mg PO BID@0630,1630 [facility] Oxycodone HCl (Oxycodone Hcl Immed Release 5 Mg Tablet) 5 mg PO Q4H PRN PRN Reason: pain (scale score 7-10) Pravastatin Sodium (Pravastatin Sodium 40 Mg Tablet) 40 mg PO BEDTIME [facility] Sertraline HCl (Sertraline Hcl 25 Mg Tablet) 75 mg PO DAILY [facility] Last Admin: 01/12/23 11:06 Dose: 75 mg Sodium Bicarbonate (Sodium Bicarbonate 650 Mg Tablet) 1,300 mg PO BID [facility] Last Admin: 01/12/23 11:07 Dose: 1,300 mg Trazodone HCl (Trazodone Hcl 100 Mg Tablet) 100 mg PO BEDTIME PRN PRN Reason: Sleep Home Medications Medication Instructions Recorded Confirmed Last Taken Type albuterol sulfate 90 mcg/actuation 2 puff inhalation QID PRN 06/06/21 01/11/23 2 Days Ago History aerosol inhaler Respiratory Distress ~12/16/22 buprenorphine 8 mg-naloxone 2 mg 1 film sublingual TID 06/06/21 01/11/23 2 Days Ago History sublingual film ~12/16/22 buspirone 5 mg tablet 5 mg PO TID 06/06/21 01/11/23 2 Days Ago History ~12/16/22 carvedilol 12.5 mg tablet 12.5 mg PO BID 06/06/21 01/11/23 2 Days Ago History ~12/16/22 cetirizine 10 mg tablet 10 mg PO DAILY PRN Allergic 06/06/21 01/11/23 2 Days Ago History Symptoms ~12/16/22 gabapentin 600 mg tablet 600 mg PO BID 06/06/21 01/11/23 2 Days Ago History ~12/16/22 hydrochlorothiazide 12.5 mg tablet 12.5 mg PO DAILY 06/06/21 01/11/23 2 Days Ago History ~12/16/22 pravastatin 40 mg tablet 40 mg PO BEDTIME 06/06/21 01/11/23 2 Days Ago History ~12/16/22 sertraline 50 mg tablet 75 mg PO DAILY 06/06/21 01/11/23 2 Days Ago History ~12/16/22 trazodone 100 mg tablet 100 mg PO BEDTIME PRN Sleep 06/06/21 01/11/23 2 Days Ago History ~12/16/22 amlodipine 5 mg tablet 5 mg PO DAILY 12/18/22 01/11/23 2 Days Ago History ~12/16/22 dolutegravir 50 mg-lamivudine 300 1 tab PO DAILY 12/18/22 01/11/23 2 Days Ago History mg tablet (Dovato) ~12/16/22 dulaglutide 0.75 mg/0.5 mL 0.75 mg subcut MO 12/18/22 01/11/23 2 Days Ago History subcutaneous pen injector ~12/16/22 (Trulicity) empagliflozin 10 mg tablet 10 mg PO DAILY 12/18/22 01/11/23 2 Days Ago History (Jardiance) ~12/16/22 loperamide 2 mg tablet 2 mg PO Q6H PRN Diarrhea 12/18/22 01/11/23 2 Days Ago History (Anti-Diarrheal (loperamide)) ~12/16/22 Physical Exam 2 Vital Signs and Narrative: Vital Signs: Last Vital Signs Temp 98.1 F 01/12/23 10:41 Pulse 75 01/12/23 12:00 Resp 14 01/12/23 12:00 BP 148/77 H 01/12/23 12:00 Pulse Ox 94 01/12/23 12:00 O2 Del Method Room Air 01/12/23 12:00 BMI result Body Mass Index 31.0 Yobani are observed along the midline abdomen. There is dehiscence above and below the yobani. There is some drainage from these areas. Results Labs 01/11/23 14:57 01/11/23 14:25 Labs: Laboratory Results - last 24 hr 01/11/23 01/11/23 01/12/23 14:25 14:57 08:21 MCV 100.3 H MCH 33.8 H MCHC 33.7 RDW 14.2 Plt Count Not Reportable MPV 10.4 Immature Gran % (Auto) Cancelled Neut % (Auto) Cancelled Lymph % (Auto) Cancelled Mobile % (Auto) Cancelled Eos % (Auto) Cancelled Baso % (Auto) Cancelled Lymph # (Auto) Cancelled Mobile # (Auto) Cancelled Eos # (Auto) Cancelled Baso # (Auto) Cancelled Abs Immat Gran (auto) Cancelled Absolute Neuts (auto) Cancelled Absolute Nucleated RBC 0.030 H Nucleated RBC % (auto) 0.1 Neutrophils % (Manual) 88 H Band Neutrophils % 3 Lymphocytes % (Manual) 7 L Monocytes % (Manual) 2 Abs Neuts (Manual) 23.1 H Lymphocytes # (Manual) 1.8 Monocytes # (Manual) 0.5 Toxic Vacuolation PRESENT Platelet Estimate INCREASED Plt Morphology Comment NORMAL RBC Morphology NOTED Polychromasia 1+ (0-2) Macrocytosis 1+ (5-14) York Cells 1+ (0-2) Anion Gap 9 L Estim Creat Clear Calc 42.2 Estimated GFR 42 Random Glucose 177 H Calcium 9.3 D Total Bilirubin 0.3 AST 19 ALT 10 Alkaline Phosphatase 62 Total Creatine Kinase 103 Total Protein 6.9 Albumin 2.6 L Urine Color Yellow Urine Appearance Clear Urine pH 5.5 Ur Specific Coyote 1.015 Urine Protein 30 (1+) H Urine Glucose (UA) Negative Urine Ketones Negative Urine Blood Small (1+) H Urine Nitrite Negative Ur Leukocyte Esterase Negative Urine RBC 0-2 Urine WBC 0-5 Ur Squamous Epith Cells 0-2 Urine Bacteria None Seen Hyaline Casts 0-2 COVID-19 (RAYNA) Negative COVID-19 Clin Com See Note Imaging Radiologist's Impressions: Impressions Cervical Spine CT 01/11/23 14:26 IMPRESSION: 1. No acute fracture or subluxation of the cervical spine. 2. Mottled appearance to the vertebral marrow in the cervical spine, raising the possibility of marrow infiltrative disease. Suggest correlation with serum history, chemistry, etc. as myeloma, lymphoma or other marrow infiltrative disease including metastasis could have this appearance. Alternatively, this could be due to inhomogeneous osteoporosis. Fleischner guidelines were followed. Head CT 01/11/23 14:26 IMPRESSION: 1. Mild stable Age-related involutional changes and microvascular disease. No acute hemorrhage, mass effect or shift. 2. No acute intracranial pathology. Assessment and Plan (1) Disruption of external operation (surgical) wound, not elsewhere classified, sequela: Status: Acute Plan Postop day 6 from general surgery for bowel obstruction. Wound is dehisced. Please consult surgery. Dr. Hicks is not available through the wound center to provide this service. Time Spent With Patient Time: Total time managing care of this patient today ____ minutes.
[2023-01-12] MEDS: Empagliflozin 10 MG TABLET PO (12:25)
[2023-01-12] MEDS: Dolutegravir Sodium 50 MG TABLET PO (12:26)
[2023-01-12] MEDS: lamiVUDine 150 MG TABLET 300 MG PO (12:33)
--- NOTE | 2023-01-12 13:07 | MHC.CM.ED ---
Addendum entered by Anila Grover 01/12/23 13:29: Pt booked for a 3:30 [facility] p/u to [facility]: suboxone script faxed to [facility] at [phone] and uploaded to [facility] for [facility]. Hard copy with d/c packet. Pt aware suboxone will be given as ordered and not how he was home dosing. ED Care team aware of d/c plan. Original Note: Waiting for payor auth to transfer to [facility]. ED provider Lana RAE to write script for Suboxone which will need to be faxed to [facility] at [phone] and included in pt's d/c packet to facility. The script must include the full amount for the next 7 days. Provider aware and will complete once payor auth secured. Of note, pt does not take suboxone as directed at home and states he takes the entire 3 packets in the am. [facility] to be booked once facility receives payor auth.
--- NOTE | 2023-01-12 14:52 | PC.NURSE ---
report given to vale yeung at [facility]
== END 2023-01-12 15:53 | disposition skilled nursing facility (03) ==
PROVIDERS: Physician Assistant Medical; Emergency Provider Student in an Organized Health Care Education/Training Program; PCP Internal Medicine
DX: R53.81 Other malaise (principal); D72.829 Elevated white blood cell count, unspecified; E11.22 Type 2 diabetes mellitus with diabetic chronic kidney disease; I12.9 Hypertensive chronic kidney disease with stage 1 through stage 4 chronic kidney disease, or unspecified chronic kidney disease; N18.9 Chronic kidney disease, unspecified; S31.109A Unspecified open wound of abdominal wall, unspecified quadrant without penetration into peritoneal cavity, initial encounter; D64.9 Anemia, unspecified; R26.81 Unsteadiness on feet; Z20.822 Contact with and (suspected) exposure to COVID-19; B20 Human immunodeficiency virus [HIV] disease; E78.5 Hyperlipidemia, unspecified; K73.9 Chronic hepatitis, unspecified; F11.20 Opioid dependence, uncomplicated; Z79.899 Other long term (current) drug therapy; Z87.891 Personal history of nicotine dependence; Z93.3 Colostomy status; X58.XXXA Exposure to other specified factors, initial encounter; Y93.9 Activity, unspecified; Y92.9 Unspecified place or not applicable; Y99.9 Unspecified external cause status
CPT/HCPCS: 36415; 70450; 72125; 80053; 81001; 82550; 85007; 85027; 87635; 93005; 97162; 99285

== ENCOUNTER 2023-01-25 14:23 | Outpatient (AMB) | payer OTHER, SELFPAY ==
--- NOTE | 2023-01-25 14:24 | A.OFFVIS_ITS ---
Intake Vital Signs 3 01/25/23 14:35 Height 5 ft 6 in Weight 191 lb 12.835 oz BMI 31.0 BP 130/72 Blood Pressure Location Lt brachial Position Sitting Intake Visit Reasons: s/p ex.lap , small bowel resection 12/20/22 HIV+ Intake Note: Patient is seen in office for post op assessment post exploratory laparoscopy, small bowel resection. 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 Accompanied by: Self / Same As Patient Allergies ampicillin [AMPICILLIN] Allergy (Mild, Verified 01/25/23 14:29) HIVES aspirin [ASPIRIN] Allergy (Unknown, Verified 01/25/23 14:29) RASH Medication List - Last Reconciled 01/25/23 by Jacky Vo MD acetaminophen 650 mg PO Q4H PRN albuterol sulfate 90 mcg/actuation 2 puffs inhalation QID PRN amlodipine 5 mg PO DAILY buprenorphine-naloxone 8-2 mg 1 film sublingual TID buprenorphine-naloxone 8-2 mg 1 film buccal TID 7 days buspirone 5 mg PO TID carvedilol 12.5 mg PO BID cetirizine 10 mg PO DAILY PRN diclofenac sodium 1% topical dolutegravir-lamivudine 50-300 mg (Dovato) 1 tab PO DAILY dulaglutide (Trulicity) 0.75 mg subcut MO empagliflozin (Jardiance) 10 mg PO DAILY gabapentin 600 mg PO BID glucagon (Glucagon Emergency Kit) 1 mg subcut Q20M PRN hydrochlorothiazide 12.5 mg PO DAILY loperamide (Anti-Diarrheal (loperamide)) 2 mg PO Q6H PRN omeprazole 40 mg PO BID 30 days oxycodone 5 mg PO Q4H PRN pravastatin 40 mg PO BEDTIME sertraline 75 mg PO DAILY sitagliptin phosphate (Januvia) 25 mg PO DAILY sodium bicarbonate 1,300 mg (2 x 650 mg) PO BID trazodone 100 mg PO BEDTIME PRN HPI HPI Comments 2 History of Present Illness0 Details 72-year-old male patient with prior hist ory of ulcerative colitis status post total colectomy with ileostomy as well as a history of HIV, returning following recent hospitalization for small-bowel obstruction. He subsequently underwent exploratory laparotomy, lysis of adhesions and small- bowel resection. He had a prolonged hospitalization due to ileus and subsequently developed an abdominal wound infection. He is currently in a rehab center he reports eating well without nausea or vomiting. His ostomy is been working well. He continues to have discharge from the incision which is being packed daily basis. He presents today for staple removal. [facility] Medical History Duodenal ulcer Severe anemia Hyperlipemia Pancreatitis CKD (chronic kidney disease) HIV (human immunodeficiency virus infection) Chronic hepatitis Chronic use of nonprescription opiate drugs Ulcerative colitis Diabetes mellitus HTN (hypertension), benign Surgical History H/O exploratory laparotomy (12/20/22) Hx of cholecystectomy Hx of splenectomy Status post right hip replacement History of total left knee replacement (TKR) H/O colectomy Social History Household Members: None Housing: Apartment Do you presently have visiting nurse or other home services: No Alcohol intake: never Patient Tobacco Use Status: Former Tobacco user Quit Date: 15 yrs ago Tobacco use type: Cigarette Advance Directives Date on File: 06/07/21 service: No Current occupational status: disabled Physical Exam Vital Signs: Last Vital Signs BP 130/72 01/25/23 14:35 BMI result Body Mass Index 31.0 Const General: comfortable Nutritional Appearance: obese Orientation/consciousness: patient oriented x3 Resp Effort & Inspection: normal respiratory effort GI Other: Ostomy is pink and patent both gas and stool. Midline incision reveals 3 open areas which are packed with Xeroform. Dressings were changed and radha removed in the midline incision. Wounds were repacked with 2 x 2 gauze and covered with fluff gauze. Abdomen image: 2 1. Midline incision 2. Ostomy right lower quadrant Skin General skin exam: no rashes or lesions noted Neuro General: patient oriented x3 Assessment & Plan Assessment & Plan (1) Open abdominal wall wound: Code(s): S31.109A - Unspecified open wound of abdominal wall, unspecified quadrant without penetration into peritoneal cavity, initial encounter Qualifiers: Encounter type: subsequent encounter Qualified Code(s): S31.109D - Unspecified open wound of abdominal wall, unspecified quadrant without penetration into peritoneal cavity, subsequent encounter (2) Complete small bowel obstruction: Code(s): K56.601 - Complete intestinal obstruction, unspecified as to cause Plan Patient returns for wound check and staple removal following exploratory laparotomy and small-bowel resection. His wounds are improving but still open and draining. He should continue with the local wound care and dry sterile dressings. I have asked him to return approximately 1 month for wound examination. Coding Level of Care Code Global (05146) Diagnoses Open wound of abdominal wall, subsequent encounter S31.109D Encounter type: subsequent encounter Complete small bowel obstruction K56.601
[2023-01-25 14:35] VITALS: BP 130/72; BMI 31.0
== END 2023-01-25 14:52 | disposition home or self-care (01) ==
PROVIDERS: PCP Internal Medicine; Visit Provider Surgery
DX: S31.109D Unspecified open wound of abdominal wall, unspecified quadrant without penetration into peritoneal cavity, subsequent encounter (principal); K56.601 Complete intestinal obstruction, unspecified as to cause
CPT/HCPCS: 99024

== ENCOUNTER → 2023-01-25 14:23 | Outpatient (BNVA) | payer OTHER, SELFPAY | PROVIDERS: PCP Internal Medicine; Visit Provider Surgery ==

== ENCOUNTER 2023-02-22 12:55 | Outpatient (AMB) | payer OTHER, SELFPAY ==
--- NOTE | 2023-02-22 12:57 | A.OFFVIS_ITS ---
Intake Vital Signs 3 02/22/23 13:40 Height 5 ft 6 in Weight 191 lb 12.835 oz BMI 31.0 Pulse 62 Intake Visit Reasons: s/p ex.lap , small bowel resection 12/20/22 HIV+ Intake Note: Patient is seen in office for post op assessment post exploratory laparoscopy, SBO. 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 He subsequently underwent exploratory laparotomy, lysis of adhesions and small- bowel resection. He had a prolonged hospitalization due to ileus and subsequently developed an abdominal wound infection. His previous open wounds have now healed completely with no further discharge. He is eating well without nausea or vomiting and is ostomy is functioning well. He reports falling against the tub and striking his chest. He still has some pain but is able to take deep breaths without coughing. [facility]LY [facility] Medical History Duodenal ulcer Severe anemia Hyperlipemia Pancreatitis CKD (chronic kidney disease) HIV (human immunodeficiency virus infection) Chronic hepatitis Chronic use of nonprescription opiate drugs Ulcerative colitis Diabetes mellitus HTN (hypertension), benign Surgical History H/O exploratory laparotomy (12/20/22) Hx of cholecystectomy Hx of splenectomy Status post right hip replacement History of total left knee replacement (TKR) H/O colectomy Social History Household Members: None Housing: Apartment Do you presently have visiting nurse or other home services: No Alcohol intake: never Patient Tobacco Use Status: Former Tobacco user Quit Date: 15 yrs ago Tobacco use type: Cigarette Advance Directives Date on File: 06/07/21 service: No Current occupational status: disabled Physical Exam Const General: comfortable Nutritional Appearance: obese Orientation/consciousness: patient oriented x3 Chest Chest palpation & inspection: normal inspection of the chest and tenderness sternum Chest/axillae images: 2 1. Area of palpable tenderness mid chest after fall; no step-off noted Resp Effort & Inspection: normal respiratory effort GI Other: Ostomy is pink and patent both gas and stool. Midline incision reveals 3 open areas which are packed with Xeroform. Dressings were changed and radha removed in the midline incision. Wounds were repacked with 2 x 2 gauze and covered with fluff gauze. Skin General skin exam: no rashes or lesions noted Neuro General: patient oriented x3 Assessment & Plan Assessment & Plan (1) Open abdominal wall wound: Code(s): S31.109A - Unspecified open wound of abdominal wall, unspecified quadrant without penetration into peritoneal cavity, initial encounter Qualifiers: Encounter type: subsequent encounter Qualified Code(s): S31.109D - Unspecified open wound of abdominal wall, unspecified quadrant without penetration into peritoneal cavity, subsequent encounter (2) Complete small bowel obstruction: Code(s): K56.601 - Complete intestinal obstruction, unspecified as to cause Plan Patient returns for wound check following exploratory laparotomy and small-bowel resection. He reports falling in striking his chest against the tub approximately 1 week ago. He still has some soreness in the anterior chest. He denies cough or shortness of breath. The previously open wounds in the midline incision are now healed with no further discharge. He is eating well without nausea, vomiting or constipation. His ostomy is working well. He should follow up as needed. Coding Level of Care Code Global (81416) Diagnoses Open wound of abdominal wall, subsequent encounter S31.109D Encounter type: subsequent encounter Complete small bowel obstruction K56.601
[2023-02-22 13:40] VITALS: PULSE 62; BMI 31.0
== END 2023-02-22 13:43 | disposition home or self-care (01) ==
PROVIDERS: PCP Internal Medicine; Visit Provider Surgery
DX: S31.109D Unspecified open wound of abdominal wall, unspecified quadrant without penetration into peritoneal cavity, subsequent encounter (principal); K56.601 Complete intestinal obstruction, unspecified as to cause
CPT/HCPCS: 99024

== ENCOUNTER → 2023-02-22 12:55 | Outpatient (BNVA) | payer OTHER, SELFPAY | PROVIDERS: PCP Internal Medicine; Visit Provider Surgery ==

== ENCOUNTER 2024-04-26 06:52 | Inpatient (IN) | payer OTHER, SELFPAY ==
[2024-04-26] VITALS (9 sets, daily range): BP systolic 104–161; BP diastolic 51–73; PULSE 75–88; RESP 12–20; TEMP 36.3–36.8; O2SAT 93–97; BMI 30.7
--- NOTE | ~2024-04-26 | US_ITS ---
CLINICAL HISTORY: pain, swelling, redness, wounds, no palpable pulse Left lower extremity duplex arterial Doppler Comparison: None Technique: Grayscale/Color/Duplex Doppler sonographic evaluation of the arterial system of the left Findings: Left lower extremity SIMULATION ENGINEER: Monophasic: 143.0 cm/s SFA: Monophasic: 252.0 cm/s distally with surrounding collaterals Popliteal artery: Monophasic: 98.0 cm/s Posterior tibial: Monophasic: 100 cm/s Dorsalis pedis: Monophasic: 20.1 cm/s Anterior tibial: Not imaged due to overlying blister Peroneal: Not visualized Impression: 1. 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 2. Predominantly monophasic flow seen throughout. Femoral profundus is patent. This document has been electronically signed by: Washington Thakur MD on 04/26/2024 09:54:26
--- NOTE | ~2024-04-26 | CT_ITS ---
CLINICAL HISTORY: wounds, ?osteo CT left lower extremity without contrast Comparison: None Findings: Evaluation was performed from the level of the knee to the level of the midfoot. Prior open reduction internal fixation of the distal tibia and metallic fusion of the tibiotalar joint. Partial visualization of knee replacement hardware. No acute hardware failure. 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 No acute fracture. No dislocation. No bony destruction or periostitis to suggest osteomyelitis. There is severe and extensive edema of the soft tissues. This is most pronounced anteriorly and laterally. There appears to be a fluid collection within the mid anterolateral aspect of the foley measuring up to 6 x 2 cm in transverse dimension and extending over 10 cm in craniocaudal length. There is no gas within the soft tissues. No radiopaque foreign body. There are extensive peripheral vascular calcifications, compatible with diabetes. Impression: 1. Findings are suspicious for an abscess within the anterolateral soft tissues. This could be further evaluated with ultrasound or contrast-enhanced CT. 2. No evidence of osteomyelitis. This document has been electronically signed by: Radha Lynn MD on 04/26/2024 17:41:03
--- NOTE | ~2024-04-26 | US_ITS ---
CLINICAL HISTORY: pain, swelling, redness, wounds, no palpable pulse Left lower extremity duplex venous Doppler Comparison: US/MD/SR - US VENOUS DUPLEX LE BI - 06/18/2021 09:34 PM EST Technique: Grayscale/Color/Duplex Doppler sonographic evaluation of the deep venous system within the left lower extremity. Findings: Left lower extremity Common femoral vein: Patent bilaterally CFV/GSV junction: Patent Femoral vein: Patent Popliteal vein: Patent Infrapopliteal veins: Patent where seen Soft tissue: No focal abnormality Impression: 1. Negative for left lower extremity DVT. 2. No Blanchard's cyst This document has been electronically signed by: Washington Thakur MD on 04/26/2024 09:26:10
--- NOTE | ~2024-04-26 | US_ITS ---
CLINICAL HISTORY: left leg abcess ? Ultrasound soft tissue left lower extremity Comparison: CT/SR - LOWER EXTREMITIES LOWER_LEG_WITHOUT_IV (ADULT) - 04/26/24 14:30 EST Findings: Diffuse soft tissue edema of the imaged left leg. Within this is a complex collection measuring approximately 1.6 x 3.8 x 5.8 cm AP, transverse in length respectively. Complex internal echoes, in diffuse peripheral hyperemia supporting soft tissue abscess. IMPRESSION: Complex collection lower lateral left leg compatible with abscess. This document has been electronically signed by: Caesar Soto MD on 04/27/2024 10:10:40
--- NOTE | 2024-04-26 07:51 | ED.WOUNDLAC ---
HPI - Wound/Laceration General Chief Complaint: Wound/Laceration Stated Complaint: Swollen L leg for 10x days Time Seen by Provider: 04/26/24 06:54 Source: patient Mode of arrival: ambulatory Limitations: no limitations History of Present Illness ED Provider: Kassie Urena NP HPI narrative: Patient is a 73 year old male who presents emergency department for evaluation. Reports over the past 10 days he has been noticing that his left lower extremity has become red and swollen it is painful. Over the past few days it started to blister and now is oozing with yellow drainage. He states he is unable to walk on the leg due to the pain he is experiencing. He admits to a history of this happening once quite a few years ago on the right leg which she states was due to an infection. He has not yet seen his doctor about this he states ?I thought it was going to get better?. He denies any precipitating cause such as a wound, laceration, bug bite. Denies associated fevers, chills, numbness or tingling to the extremity, chest pain, shortness of breath. Related Data Home Medications ?Medication ?Instructions ?Recorded ?Confirmed albuterol sulfate 90 mcg/actuation 2 puff inhalation QID PRN 06/06/21 04/26/24 aerosol inhaler Respiratory Distress buprenorphine 8 mg-naloxone 2 mg 2 film sublingual DAILY 06/06/21 04/26/24 sublingual film cetirizine 10 mg tablet 10 mg PO DAILY PRN Allergic 06/06/21 04/26/24 Symptoms gabapentin 600 mg tablet 600 mg PO BID 06/06/21 04/26/24 pravastatin 40 mg tablet 40 mg PO BEDTIME 06/06/21 04/26/24 trazodone 100 mg tablet 200 mg PO DAILY@1700 PRN Insomnia 06/06/21 04/26/24 amlodipine 5 mg tablet 5 mg PO DAILY 12/18/22 04/26/24 dolutegravir 50 mg-lamivudine 300 1 tab PO DAILY 12/18/22 04/26/24 mg tablet (Dovato) dulaglutide 0.75 mg/0.5 mL 0.75 mg subcut MO@0900 12/18/22 04/26/24 subcutaneous pen injector (Trulicity) acetaminophen 500 mg tablet 1,000 mg PO Q4H PRN Pain 04/26/24 04/26/24 buprenorphine 8 mg-naloxone 2 mg 1 film sublingual BEDTIME 04/26/24 04/26/24 sublingual film empagliflozin 10 mg tablet 10 mg PO DAILY 04/26/24 04/26/24 (Jardiance) escitalopram oxalate 10 mg tablet 10 mg PO DAILY 04/26/24 04/26/24 furosemide 80 mg tablet 80 mg PO BID@0900,1700 04/26/24 04/26/24 methylcellulose (laxative) 500 mg 500 mg PO BID 04/26/24 04/26/24 tablet (Fiber Therapy (methylcellulose)) omeprazole 40 mg capsule,delayed 40 mg PO BID@0630,1630 04/26/24 04/26/24 release tamsulosin 0.4 mg capsule 0.4 mg PO DAILY 04/26/24 04/26/24 Allergies Allergy/AdvReac Type Severity Reaction Status Date / Time ampicillin [AMPICILLIN] Allergy Mild HIVES Verified 04/26/24 07:07 aspirin [ASPIRIN] Allergy Unknown RASH Verified 04/26/24 07:07 Review of Systems Review of Systems: Yes all other systems are reviewed and are negative [facility] Past Medical History Attestation statement: The following information was validated with the patient. Source: old records reviewed Medical History Duodenal ulcer Severe anemia Hyperlipemia Pancreatitis CKD (chronic kidney disease) HIV (human immunodeficiency virus infection) Chronic hepatitis Chronic use of nonprescription opiate drugs Ulcerative colitis Diabetes mellitus HTN (hypertension), benign Surgical History H/O exploratory laparotomy (12/20/22) Hx of cholecystectomy Hx of splenectomy Status post right hip replacement History of total left knee replacement (TKR) H/O colectomy Social History Social History Household Members: None Housing: Apartment Do you presently have visiting nurse or other home services: Yes Alcohol intake: never Patient Tobacco Use Status: Former Tobacco user Tobacco use type: Cigarette Advance Directives Date on File: 06/07/21 service: No Current occupational status: disabled Physical Exam Vital Signs: Vital Signs: Last Vital Signs Temp 97.7 F 04/26/24 19:27 Pulse 78 04/26/24 19:27 Resp 16 04/26/24 19:27 BP 150/70 H 04/26/24 19:27 Pulse Ox 97 04/26/24 19:27 O2 Del Method Room Air 04/26/24 19:27 BMI result Body Mass Index 30.7 Appearance: Alert.?Oriented to person, place and time. No acute distress.?Normal affect. Eyes: Pupils equal, round and reactive to light.? ENT: Pharynx normal.?? Neck: Normal inspection.? Neck supple.?? CVS: Heart sounds normal. Normal heart rate and rhythm.? Pulses normal.?? Respiratory: No respiratory distress.? Lung sounds clear to auscultation bilaterally?? Abdomen: Soft and non-tender. Normoactive bowel sounds. Skin: Skin warm and dry.? Normal skin color.? Extremities: Left lower extremity redness swelling and warmth. Unable to palpate DP/PT pulse, positive Doppler signal on DP. Blistering and peeling of the skin. Neuro: Moves all extremities spontaneously. Sensation intact bilaterally. Course Reevaluation(s) Reevaluation #1: Received call from laboratory regarding critical Creatinine 4.27, BUN of 61 MARY JO on CKD. He has an obvious infection of the left lower extremity, otherwise is not meeting SIRS criteria affirm sepsis. Has history of CKD, otherwise no acute symptoms that would suggest alternative pathology for MARY JO on CKD. Sepsis fluid bolus has been ordered based on ideal body weight given obesity, . Blood cultures have already been obtained, no lactic acididosis, no hypotension. Has been covered with cefazolin. Has no significant electrolyte derangement. LFTs unremarkable. CBC revealing a mild leukocytosis of 11.2 with left shift. Macrocytic anemia chronic and stable does not meet transfusion criteria, no thrombocytopenia. Anticipated admission to medicine service, consult with hospitalist given infection and MARY JO. Patient offers no urinary complaints however will obtain urinalysis to exclude infection/microscopic hematuria that might suggest potential alternative etiology. Time: 09:20 Medications Administered Generic Name Dose Route Start Last Admin Trade Name Freq PRN Reason Stop Dose Admin Acetaminophen 650 mg 04/26/24 12:19 04/26/24 15:23 Acetaminophen 325 Mg Tablet PO 650 mg Q6H PRN Administration Pain, Mild 1-3,fever,headache Buprenorphine/Naloxone 1 film 04/26/24 21:00 04/26/24 20:33 Buprenorphine/Naloxone 8/2 Mg Film SUBLINGUAL 1 film BEDTIME RASHAD Administration Calcium Polycarbophil 1 tab 04/26/24 21:00 04/26/24 20:33 Calcium Polycarbophil Tablet PO 1 tab BID RASHAD Administration Gabapentin 600 mg 04/26/24 21:00 04/26/24 20:33 Gabapentin 600 Mg Tablet PO 600 mg BID RASHAD Administration Heparin Sodium (Porcine) 5,000 unit 04/26/24 12:30 04/26/24 13:35 Heparin Sodium,Porcine 5,000 Unit/Ml Vial SUBCUT 5,000 unit Q12H RASHAD Administration Cefepime HCl 1 gm/ Sodium 50 mls @ 100 mls/hr 04/26/24 13:00 04/26/24 14:30 Chloride IV Infused Q24H [facility] Infusion Linezolid 600 mg in 300 mls @ 300 mls/hr 04/26/24 14:00 04/26/24 16:42 Zyvox/D5w IV Infused Q12H [facility] Infusion Insulin Human Lispro 0 unit 04/26/24 16:30 04/26/24 20:22 Insulin Lispro 100 Unit/Ml 3 Ml Vial SUBCUT Not Given QIDACHS [facility] Protocol Morphine Sulfate 2 mg 04/26/24 12:41 04/26/24 21:09 Morphine Sulfate 2 Mg/Ml Cartridge IVPUSH 2 mg Q4H PRN Administration Pain, Severe (Pain Scale 7-10) Protocol Omeprazole 40 mg 04/26/24 16:30 04/26/24 16:58 Omeprazole 40 Mg Capsule.Dr PO 40 mg BID@0630,1630 [facility] Administration Ondansetron HCl 4 mg 04/26/24 12:19 04/26/24 14:57 Ondansetron Hcl 4 Mg/2 Ml Vial IVPUSH 4 mg Q8H PRN Administration Nausea and Vomiting Pravastatin Sodium 40 mg 04/26/24 21:00 04/26/24 20:33 Pravastatin Sodium 40 Mg Tablet PO 40 mg BEDTIME RASHAD Administration Sodium Chloride 3 ml 04/26/24 16:00 04/26/24 20:33 0.9 % Sodium Chloride Flush 3 Ml Syringe IVFLUSH 3 ml QSHIFT RASHAD Administration Discontinued Medications Generic Name Dose Route Start Last Admin Trade Name Freq PRN Reason Stop Dose Admin Cefazolin Sodium 2 gm 04/26/24 07:49 04/26/24 08:56 Cefazolin Sodium 1 Gm Vial IVPUSH 04/26/24 07:50 2 gm ONCE ONE Administration Sodium Chloride 1,914 mls @ 1,914 mls/hr 04/26/24 09:18 04/26/24 12:00 Ns IV 04/26/24 10:17 Infused .Q1H STA Infusion Sodium Chloride 1,000 mls @ 999 mls/hr 04/26/24 12:45 04/26/24 15:47 Ns IV 04/26/24 13:45 Infused .Q1H1M RASHAD Infusion Morphine Sulfate 2 mg 04/26/24 08:42 04/26/24 08:56 Morphine Sulfate 2 Mg/Ml Cartridge IVPUSH 04/26/24 08:43 2 mg ONCE ONE Administration Protocol Medical Decision Making Medical Decision Making MDM Narrative: Patient is a 73-year-old male with past medical history of duodenal ulcer, anemia, hyperlipidemia, pancreatitis, CKD, HIV, chronic hepatitis, ulcerative colitis, diabetes, hypertension presents emergency department for evaluation of left lower extremity redness pain swelling and weeping with blisters. Will obtain CBC to evaluate for leukocytosis/ anemia, CMP and lipase to evaluate for abnormal electrolytes /abnormal renal function/ abnormal hepatic/biliary function, blood cultures in additional lactic acid and will cover with cefazolin will when due to concern for infection. I am unable to palpate DP/PT pulse though I do a Doppler signal for BP. Reviewed patient case my attending, recommends arterial duplex ultrasound in addition to venous duplex. Differential Diagnosis Differential Diagnoses: The differential diagnosis associated with the presentation includes (See narrative above) Admission/Observation Consideration of admission/observation: Escalation of care including admission/observation considered (See course naris) Lab Data MDM Lab Attestation statement: I reviewed the patient's lab results. (See course narrative) 04/26/24 08:28 04/26/24 08:28 Labs: Lab Results 04/26/24 04/26/24 Range/Units 08:28 11:18 WBC 11.2 H (4.8-10.8) X10*3/uL RBC 3.49 L (4.60-5.80) X10*6/uL Hgb 12.1 L D (14.0-18.0) g/dl Hct 36.2 L D (42.0-52.0) % MCV 103.7 H (80.0-98.0) fL MCH 34.7 H (27.0-33.0) pg MCHC 33.4 (31.0-36.0) g/dl RDW 14.3 (11.0-16.0) % Plt Count 388 D (160-400) X10*3/uL MPV 9.6 (9.4-12.4) fL Immature Gran % (Auto) 0.6 H (0.0-0.4) % Neut % (Auto) 72.3 (45-73) % Lymph % (Auto) 16.6 L (20-40) % [place] % (Auto) 8.8 (2-11) % Eos % (Auto) 1.2 (0-4) % Baso % (Auto) 0.5 (0-2) % Lymph # (Auto) 1.9 (1.2-4.9) X10*3/uL [place] # (Auto) 1.0 (0.1-1.2) X10*3/uL Eos # (Auto) 0.1 (0.0-0.4) X10*3/uL Baso # (Auto) 0.1 (0.0-0.2) X10*3/uL Abs Immat Gran (auto) 0.07 H (0.00-0.03) X10*3/uL Absolute Neuts (auto) 8.1 (2.0-8.3) x10*3/uL Absolute Nucleated RBC 0.050 H (0.0-0.012) X10*3/uL Nucleated RBC % (auto) 0.4 H (0.0-0.2) /100WBC PT 12.3 (10.9-12.4) SEC INR 1.1 (0.9-1.1) Sodium 136 (135-145) mmol/L Potassium 4.8 (3.3-5.1) mmol/L Chloride 109 H (96-108) mmol/L Carbon Dioxide 18 L (22-29) mmol/L Anion Gap 14 (12-20) BUN 61 H (9-16) mg/dL Creatinine 4.27 H* (0.5-1.4) mg/dL Estim Creat Clear Calc 15.6 Estimated GFR 14 Random Glucose 172 H (60-115) mg/dL Lactic Acid 1.3 (0.5-2.0) mmol/L Calcium 9.2 (8.4-10.2) mg/dL Total Bilirubin 0.1 (0.0-1.0) mg/dL AST 21 (5-37) U/L ALT 23 (0-40) U/L Alkaline Phosphatase 105 (39-117) U/L Total Creatine Kinase 49 (38-174) U/L C-Reactive Protein 8.17 H (< or = 0.50) mg/dL B-Natriuretic Peptide 18 (<100) pg/mL Total Protein 7.0 (6.5-8.0) g/dL Albumin 3.1 L (3.5-5.0) g/dL Urine Color Yellow Urine Appearance Clear Urine pH 5.0 (5.0-9.0) Ur Specific [place] <= 1.005 (1.005-1.025) Urine Protein Negative (Neg-Trace) mg/dL Urine Glucose (UA) 250 H (Negative) mg/dL Urine Ketones Negative (Negative) mg/dL Urine Blood Negative (Negative) Urine Nitrite Negative (Negative) Ur Leukocyte Esterase Negative (Negative) Urine Opiates Screen Not Detected (Not Detect) Ur Buprenorphine Scrn Positive H (Not Detect) ng/mL Ur Oxycodone Screen Not Detected (Not Detect) ng/mL Urine Methadone Screen Not Detected (Not Detect) ng/mL Urine Fentanyl Screen Not Detected (Not Detect) Ur Barbiturates Screen Not Detected (Not Detect) Ur Phencyclidine Scrn Not Detected (Not Detect) Ur Amphetamines Screen Not Detected (Not Detect) U Benzodiazepines Scrn Not Detected (Not Detect) Urine Cocaine Screen Not Detected (Not Detect) U Marijuana (THC) Screen Not Detected (Not Detect) Radiology Impression Discussion of test interpretation with radiology: I have reviewed the radiologist's reading. Radiologist Impression: Impression: 1. 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 2. Predominantly monophasic flow seen throughout. Femoral profundus is patent. mpression: 1. Negative for left lower extremity DVT. 2. No Blanchard's cyst Independent Historian Clinical information obtained from an independent historian. History obtained from or confirmed by: EMS External Record Review External record reviewed: Outpatient record Discharge Plan Discharge Clinical Impression: Cellulitis Qualifiers: Site of cellulitis: extremity Site of cellulitis of extremity: lower extremity Laterality: left Qualified Code(s): L03.116 - Cellulitis of left lower limb Patient Disposition: Admitted As Inpatient Interventions: Admission Worksheet (ED) Last Done: 04/26/24 15:28 Discharge Date/Time: 04/26/24 16:27
[2024-04-26 08:36] LABS: MANUAL DIFF FLAG NO
[2024-04-26 08:38] LABS: Basophils Absolute Auto 0.1 X10*3/uL (0.0-0.2); Basophils Percent Auto 0.5 % (0-2); Eosinophils Absolute Auto 0.1 X10*3/uL (0.0-0.4); Eosinophils Percent Auto 1.2 % (0-4); Hematocrit 36.2 % (42.0-52.0); Hemoglobin 12.1 g/dl (14.0-18.0); Imm Gran Abs Auto 0.07 X10*3/uL (0.00-0.03); Imm Gran Pct Auto 0.6 % (0.0-0.4); Lymphocytes Absolute Auto 1.9 X10*3/uL (1.2-4.9); Lymphocytes Percent Auto 16.6 % (20-40); Mean Corpuscular HGB Conc 33.4 g/dl (31.0-36.0); Mean Corpuscular Hemoglobin 34.7 pg (27.0-33.0); Mean Corpuscular Volume 103.7 fL (80.0-98.0); Mean Platelet Volume 9.6 fL (9.4-12.4); Monocytes Percent Auto 8.8 % (2-11); NRBC Pct Auto 0.4 /100WBC (0.0-0.2); Neutrophils Absolute Auto 8.1 x10*3/uL (2.0-8.3); Neutrophils Percent Auto 72.3 % (45-73); Platelet Count 388 X10*3/uL (160-400); Red Blood Count 3.49 X10*6/uL (4.60-5.80); Red Cell Distribution Width 14.3 % (11.0-16.0); White Blood Count 11.2 X10*3/uL (4.8-10.8)
[2024-04-26 08:43] LABS: INTERNATIONAL NORM RATIO 1.1 (0.9-1.1); Prothrombin Time 12.3 SEC (10.9-12.4)
[2024-04-26] MEDS: ceFAZolin Sodium 1 GM VIAL 2 GM IVPUSH (08:56)
[2024-04-26] MEDS: Morphine Sulfate 2 MG/ML CARTRIDGE IVPUSH ×4 (08:56→21:09)
[2024-04-26 08:57] LABS: Lactic Acid 1.3 mmol/L (0.5-2.0)
[2024-04-26 09:02] LABS: Alanine Aminotransferase 23 U/L (0-40); Albumin Level 3.1 g/dL (3.5-5.0); Alkaline Phosphatase 105 U/L (39-117); Anion Gap 14 (12-20); Aspartate Amino Transferase 21 U/L (5-37); Bilirubin Total 0.1 mg/dL (0.0-1.0); Blood Urea Nitrogen 61 mg/dL (9-16); Calcium 9.2 mg/dL (8.4-10.2); Carbon Dioxide 18 mmol/L (22-29); Chloride 109 mmol/L (96-108); Creatinine Clr Calc Pharmacy 15.6; Estimated Glomerular Filt Rate 14; Glucose Random 172 mg/dL (60-115); Potassium 4.8 mmol/L (3.3-5.1); Sodium 136 mmol/L (135-145)
[2024-04-26 10:20] LABS: B Type Natriuretic Peptide 18 pg/mL (<100)
[2024-04-26 11:31] LABS: Appearance Urine Clear; Color Urine Yellow; Glucose Urine UA 250 mg/dL (Negative); Leukocyte Esterase Urine Negative (Negative); Nitrite Urine Negative (Negative); Specific Gravity - Urine <= 1.005 (1.005-1.025); Urine Blood Negative (Negative); Urine Ketones Negative (Negative); Urine Protein Negative (Neg-Trace)
--- NOTE | 2024-04-26 11:56 | P.HPHOSP_ITS ---
History of Present Illness Date of Service: 04/26/24 Chief Complaint: Leg wound 73 year old male history of chronic hepatitis, opiate use disorder, CKD, diabetes, HIV, hypotension, hyperlipidemia, pancreatitis, ulcerative colitis who presented to the emergency department with complaints of left lower extremity pain, swelling and a worsening painful wound. He reports he 1st noticed this 10 days ago and it rapidly progressed. He reports it started as redness, swelling and a few days later he started having blistering and yellow drainage coming from the site. He reports very painful when he bears weight on left lower extremity. Denies associated numbness, tingling, fevers, chills sore, trauma to left lower extremity, chest pain, shortness of breath. Patient not on anticoagulation. Review of Systems 2 Review of Systems: Yes all other systems are reviewed and are negative [facility] Medical History (Updated 04/26/24 @ 12:26 by BUTCH Blackmon) Duodenal ulcer Severe anemia Hyperlipemia Pancreatitis CKD (chronic kidney disease) HIV (human immunodeficiency virus infection) Chronic hepatitis Chronic use of nonprescription opiate drugs Ulcerative colitis Diabetes mellitus HTN (hypertension), benign Functional capacity: independent ambulation Surgical History H/O exploratory laparotomy (12/20/22) Hx of cholecystectomy Hx of splenectomy Status post right hip replacement History of total left knee replacement (TKR) H/O colectomy Social History Household Members: None Housing: Apartment Do you presently have visiting nurse or other home services: No Alcohol intake: never Patient Tobacco Use Status: Former Tobacco user Tobacco use type: Cigarette Advance Directives: Yes Advance Directives on File: Yes Advance Directives Date on File: 06/07/21 Do you have a plan to hurt others: No Plan service: No Current occupational status: disabled Meds Allergies Allergy/AdvReac Type Severity Reaction Status Date / Time ampicillin [AMPICILLIN] Allergy Mild HIVES Verified 04/26/24 07:07 aspirin [ASPIRIN] Allergy Unknown RASH Verified 04/26/24 07:07 Home Medications ?Medication ?Instructions ?Recorded ?Confirmed ?Last Taken ?Type albuterol sulfate 90 mcg/actuation 2 puff inhalation QID PRN 06/06/21 01/25/23 2 Days Ago History aerosol inhaler Respiratory Distress ~12/16/22 buprenorphine 8 mg-naloxone 2 mg 1 film sublingual TID 06/06/21 01/11/23 2 Days Ago History sublingual film ~12/16/22 buspirone 5 mg tablet 5 mg PO TID 06/06/21 01/25/23 2 Days Ago History ~12/16/22 carvedilol 12.5 mg tablet 12.5 mg PO BID 06/06/21 01/11/23 2 Days Ago History ~12/16/22 cetirizine 10 mg tablet 10 mg PO DAILY PRN Allergic 06/06/21 01/25/23 2 Days Ago History Symptoms ~12/16/22 gabapentin 600 mg tablet 600 mg PO BID 06/06/21 01/25/23 2 Days Ago History ~12/16/22 hydrochlorothiazide 12.5 mg tablet 12.5 mg PO DAILY 06/06/21 01/11/23 2 Days Ago History ~12/16/22 pravastatin 40 mg tablet 40 mg PO BEDTIME 06/06/21 01/11/23 2 Days Ago History ~12/16/22 sertraline 50 mg tablet 75 mg PO DAILY 06/06/21 01/25/23 2 Days Ago History ~12/16/22 trazodone 100 mg tablet 100 mg PO BEDTIME PRN Sleep 06/06/21 01/25/23 2 Days Ago History ~12/16/22 amlodipine 5 mg tablet 5 mg PO DAILY 12/18/22 01/25/23 2 Days Ago History ~12/16/22 dolutegravir 50 mg-lamivudine 300 1 tab PO DAILY 12/18/22 01/25/23 2 Days Ago History mg tablet (Dovato) ~12/16/22 dulaglutide 0.75 mg/0.5 mL 0.75 mg subcut MO 12/18/22 01/25/23 2 Days Ago History subcutaneous pen injector ~12/16/22 (Trulicity) empagliflozin 10 mg tablet 10 mg PO DAILY 12/18/22 01/11/23 2 Days Ago History (Jardiance) ~12/16/22 loperamide 2 mg tablet 2 mg PO Q6H PRN Diarrhea 12/18/22 01/25/23 2 Days Ago History (Anti-Diarrheal (loperamide)) ~12/16/22 acetaminophen 325 mg capsule 650 mg PO Q4H PRN 01/25/23 01/25/23 Unknown History diclofenac sodium 1 % topical gel topical 01/25/23 01/25/23 Unknown History glucagon 1 mg solution for 1 mg subcut Q20M PRN 01/25/23 01/25/23 Unknown History injection (Glucagon Emergency Kit) sitagliptin phosphate 25 mg tablet 25 mg PO DAILY 01/25/23 01/25/23 Unknown History (Kietuvia) Physical Exam 2 Vital Signs and Narrative: Vital Signs: Last Vital Signs Temp 98.1 F 04/26/24 10:14 Pulse 79 04/26/24 10:14 Resp 12 04/26/24 10:14 BP 161/73 H 04/26/24 10:14 Pulse Ox 93 04/26/24 10:14 O2 Del Method Room Air 04/26/24 10:14 BMI result Body Mass Index 30.7 Appearance: Alert.? Oriented X3.? No acute cardiopulmonary distress distress.? Head: Normocephalic, atraumatic, no step-offs or deformities Neck: Normal inspection.? Neck supple.? CVS: Pulses normal.? Respiratory: No respiratory distress.? Skin: ? + erythema, warmth, open wounds to left anterior foley with a tense calf. Wounds are draining yellow purulence ( images in chart) Extremities: 5/5 strength to bilateral upper and lower extremities Neuro: Oriented X 3.? No motor deficit.? No sensory deficit. Results Labs 04/26/24 08:28 04/26/24 08:28 Labs: Laboratory Results - last 24 hr 04/26/24 04/26/24 08:28 11:18 MCV 103.7 H MCH 34.7 H MCHC 33.4 RDW 14.3 Plt Count 388 D MPV 9.6 Immature Gran % (Auto) 0.6 H Neut % (Auto) 72.3 Lymph % (Auto) 16.6 L Mcculloch % (Auto) 8.8 Eos % (Auto) 1.2 Baso % (Auto) 0.5 Lymph # (Auto) 1.9 Mcculloch # (Auto) 1.0 Eos # (Auto) 0.1 Baso # (Auto) 0.1 Abs Immat Gran (auto) 0.07 H Absolute Neuts (auto) 8.1 Absolute Nucleated RBC 0.050 H Nucleated RBC % (auto) 0.4 H PT 12.3 INR 1.1 Anion Gap 14 Estim Creat Clear Calc 15.6 Estimated GFR 14 Random Glucose 172 H Lactic Acid 1.3 Calcium 9.2 Total Bilirubin 0.1 AST 21 ALT 23 Alkaline Phosphatase 105 B-Natriuretic Peptide 18 Total Protein 7.0 Albumin 3.1 L Urine Color Yellow Urine Appearance Clear Urine pH 5.0 Ur Specific [place] <= 1.005 Urine Protein Negative Urine Glucose (UA) 250 H Urine Ketones Negative Urine Blood Negative Urine Nitrite Negative Ur Leukocyte Esterase Negative Assessment and Plan (1) Wound of left lower extremity: Qualifiers: Encounter type: initial encounter Qualified Code(s): S81.802A - Unspecified open wound, left lower leg, initial encounter Status: Acute (2) Cellulitis: Qualifiers: Laterality: left Site of cellulitis: extremity Site of cellulitis of extremity: lower extremity Qualified Code(s): L03.116 - Cellulitis of left lower limb Status: Acute (3) HTN (hypertension), benign: Status: Acute (4) Hyperlipemia: Qualifiers: Hyperlipidemia type: unspecified Qualified Code(s): E78.5 - Hyperlipidemia, unspecified Status: Acute (5) Diabetes mellitus: Status: Acute (6) Apnjg-la-[id number] kidney injury: Qualifiers: Acute renal failure type: unspecified Status: Acute (7) HIV (human immunodeficiency virus infection): Qualifiers: HIV symptom status: unspecified Qualified Code(s): Z21 - Asymptomatic human immunodeficiency virus [HIV] infection status Status: Acute (8) Chronic hepatitis: Status: Acute (9) Chronic use of nonprescription opiate drugs: Status: Acute Plan 73-year-old male presents to the emergency department with left lower extremity pain, swelling and worsening wound over the past 10 days. Clinically noted to have cellulitis with purulent wound drainage. While in the emergency department patient had laboratory studies done which showed leukocytosis of 11.2 no left shift. Chemistry with elevated BUN and creatinine, BUN 61 creatinine 4.27, this is deviating significantly from his baseline. Albumin of 3.1. CPK, ESR and CRP were not ordered however were added to his laboratory studies in are currently pending. UA without infection. He also had a DVT steady to the left lower extremity which was negative for DVT. No Blanchard's cyst identified. Arterial scan also done and negative no signs of arterial occlusion. Pain was treated with 2 mg of IV morphine. He received a total of 1914 mL of IV normal saline. And 2 g of cefazolin. 1)Wound of LLE 2)Cellulitis 04/26- This is likely an acute infection to the left lower extremities resulting in cellulitis he has associated leukocytosis. Will order cefepime 1 G Q24HH and Daptomycin 6mg/kg Q48H due to kidney function. Dr. Chinchilla gen surgery recommends CT LLE to further investigate cellulitis and will consult ID for input on atbx selection. Dr. Walker recommends Linezolid and continue cefepime no need for dapto only if bacterimia present. 3) HTN 04/26- patient with mild hypertension 161/73 on admission this is likely his baseline. Has not taken home meds today. Will continue home medications amlodipine 5 mg p.o. daily, carvedilol 12.5 mg p.o. b.i.d., hydrochlorothiazide 12.5 mg p.o. daily( will d/c this at this time due to kidney function) 4) HLD 04/26- will continue pravastatin 40 mg p.o. at bedtime 5)DM 04/26- patient's blood with glucose 172, will start sliding scale in order diabetic diet. 6) CKD 04/26- patient's BUN 61 creatinine 4.27 this is deviating significantly from his baseline. Receiving IV fluids, 2 L ordered by this PA-C Will repeat labs in the morning. Patient is still making urine, eating and drinking. Will also put in nephro consult 7) HIV 04/26 continue home Dovato 1 tab po daily 8) Chronic hepatitis 04/26- chronic in nature no elevations in transaminases should not be a barrier to patient's care 9)Choric use of non prescription opiates 04/26- patient is on home buprenorphine, naloxone 1 film sublingual TID will continue this Code status: Do not intubate DVTP: Heparin Sodium 5,000 units SQ q12 ( DUE TO PATIENT CrCl < 30) Quality Stroke Does the patient have a stroke diagnosis?: No VTE Prior VTE?: No VTE Risk Level:: Medical - moderate - high VTE Device Contraindication: Treatment Not Indicated VTE Drug Contraindication: N/A - Med Ordered
--- NOTE | 2024-04-26 12:22 | PC.NURSE ---
Sepsis fluids ordered. Per PA Juan, no sepsis alert at this time d/t pt not meeting sepsis criteria.
[2024-04-26 12:27] LABS: C Reactive Protein 8.17 mg/dL (< or = 0.50)
[2024-04-26] MEDS: 0.9 % Sodium Chloride 1,000 ML 999 ML IV (12:55)
[2024-04-26 13:10] LABS: Amphetamine Screen Urine Not Detected (Not Detect); Barbiturates, Urine Not Detected (Not Detect); Benzodiazepines Screen Urine Not Detected (Not Detect); Buprenorphine Scr Positive (Not Detect); Cannabinoid Screen Urine Not Detected (Not Detect); Cocaine Screen Urine Not Detected (Not Detect); Fentanyl, urine Not Detected (Not Detect); Methadone Screen, Urine Not Detected (Not Detect); Opiate Screen Urine Not Detected (Not Detect); Oxycodone Screen Urine Not Detected (Not Detect); Phencyclidine Screen Urine Not Detected (Not Detect)
[2024-04-26] MEDS: Heparin Sodium,Porcine 5,000 UNIT/ML VIAL 5000 UNIT SUBCUT (13:35)
[2024-04-26] MEDS: cefEPime HCl 1 GM in 0.9 % Sodium Chloride 50 ML IV (13:35)
[2024-04-26 14:01] LABS: Erythrocyte Sedimentation Rate 85 MM/HR (0-15)
[2024-04-26] MEDS: ondansetron HCL 4 MG/2 ML VIAL IVPUSH (14:57)
[2024-04-26] MEDS: Linezolid/D5W 600 MG/300 ML PIGGYBACK 300 MG IV (15:13)
[2024-04-26] MEDS: Acetaminophen 325 MG TABLET 650 MG PO ×2 (15:23→23:09)
--- NOTE | 2024-04-26 15:40 | PHA.MEDREC ---
Addendum entered by Nidia Carbajal RPh 04/26/24 16:07: reviewed by [facility]. Original Note: Pharmacy Consult ? Medication Reconciliation Pharmacy has completed the medication reconciliation. Spoke to pt to confirm meds. Per pt, no longer taking docusate. Pt takes suboxone 2 films AM and 1 film PM.
[2024-04-26 16:48] LABS: Glucose, Whole Blood 191 mg/dL (60-115)
[2024-04-26] MEDS: 0.9 % Sodium Chloride Flush 3 ML SYRINGE IVFLUSH ×2 (16:58→20:33)
[2024-04-26] MEDS: Omeprazole 40 MG CAPSULE.DR PO (16:58)
[2024-04-26] MEDS: Insulin Lispro 100 UNIT/ML 3 ML VIAL SUBCUT (16:58)
[2024-04-26 20:19] LABS: Glucose, Whole Blood 124 mg/dL (60-115)
[2024-04-26] MEDS: calcium polycarbophiL TABLET 1 TAB PO (20:33)
[2024-04-26] MEDS: Gabapentin 600 MG TABLET PO (20:33)
[2024-04-26] MEDS: Pravastatin Sodium 40 MG TABLET PO (20:33)
[2024-04-26] MEDS: Buprenorphine/Naloxone 8/2 mg FILM 1 FILM SUBLINGUAL (20:33)
[2024-04-27] MEDS: Heparin Sodium,Porcine 5,000 UNIT/ML VIAL 5000 UNIT SUBCUT ×2 (01:12→11:40)
[2024-04-27] MEDS: Linezolid/D5W 600 MG/300 ML PIGGYBACK IV ×2 (01:12→12:53)
[2024-04-27] MEDS: Morphine Sulfate 2 MG/ML CARTRIDGE IVPUSH ×5 (01:12→23:00)
[2024-04-27 04:00] VITALS: BP 141/63; PULSE 71; RESP 18; TEMP 36.1; O2SAT 95
[2024-04-27] MEDS: Omeprazole 40 MG CAPSULE.DR PO ×2 (06:06→15:52)
[2024-04-27 06:57] VITALS: BP 161/79; PULSE 74; RESP 18; TEMP 36.3; O2SAT 95
[2024-04-27 07:21] LABS: Glucose, Whole Blood 119 mg/dL (60-115)
[2024-04-27 07:46] LABS: MANUAL DIFF FLAG NO
[2024-04-27 07:53] LABS: Basophils Absolute Auto 0.1 X10*3/uL (0.0-0.2); Basophils Percent Auto 0.5 % (0-2); Eosinophils Absolute Auto 0.1 X10*3/uL (0.0-0.4); Eosinophils Percent Auto 0.5 % (0-4); Hematocrit 37.1 % (42.0-52.0); Hemoglobin 12.3 g/dl (14.0-18.0); Imm Gran Abs Auto 0.05 X10*3/uL (0.00-0.03); Imm Gran Pct Auto 0.4 % (0.0-0.4); Lymphocytes Absolute Auto 1.9 X10*3/uL (1.2-4.9); Lymphocytes Percent Auto 15.8 % (20-40); Mean Corpuscular HGB Conc 33.2 g/dl (31.0-36.0); Mean Corpuscular Hemoglobin 34.4 pg (27.0-33.0); Mean Corpuscular Volume 103.6 fL (80.0-98.0); Mean Platelet Volume 9.5 fL (9.4-12.4); Monocytes Absolute Auto 0.9 X10*3/uL (0.1-1.2); Monocytes Percent Auto 7.6 % (2-11); NRBC Pct Auto 0.2 /100WBC (0.0-0.2); Neutrophils Percent Auto 75.2 % (45-73); Platelet Count 425 X10*3/uL (160-400); Red Blood Count 3.58 X10*6/uL (4.60-5.80); Red Cell Distribution Width 14.1 % (11.0-16.0); White Blood Count 11.9 X10*3/uL (4.8-10.8)
[2024-04-27] MEDS: Escitalopram Oxalate 10 MG TABLET PO (08:20)
[2024-04-27] MEDS: Tamsulosin HCL 0.4 MG CAPSULE PO (08:20)
[2024-04-27] MEDS: amLODIPine Besylate 5 MG TABLET PO (08:20)
[2024-04-27] MEDS: Empagliflozin 10 MG TABLET PO (08:20)
[2024-04-27] MEDS: Gabapentin 600 MG TABLET PO ×2 (08:20→21:48)
[2024-04-27] MEDS: calcium polycarbophiL TABLET 1 TAB PO ×2 (08:20→21:48)
[2024-04-27] MEDS: LAMIVUDINE 300 MG PO (08:21)
[2024-04-27] MEDS: DOLUTEGRAVIR 50 MG PO (08:21)
[2024-04-27] MEDS: Acetaminophen 325 MG TABLET 650 MG PO (08:22)
[2024-04-27] MEDS: 0.9 % Sodium Chloride Flush 3 ML SYRINGE IVFLUSH ×3 (08:22→21:49)
[2024-04-27] MEDS: Buprenorphine/Naloxone 8/2 mg FILM 2 FILM SUBLINGUAL (08:22)
[2024-04-27 08:36] LABS: Alanine Aminotransferase 14 U/L (0-40); Alkaline Phosphatase 87 U/L (39-117); Anion Gap 15 (12-20); Aspartate Amino Transferase 26 U/L (5-37); Bilirubin Total 0.2 mg/dL (0.0-1.0); Blood Urea Nitrogen 37 mg/dL (9-16); Calcium 9.2 mg/dL (8.4-10.2); Carbon Dioxide 17 mmol/L (22-29); Chloride 114 mmol/L (96-108); Creatinine Clr Calc Pharmacy 24.7; Estimated Glomerular Filt Rate 23; Glucose Random 124 mg/dL (60-115); Potassium 4.8 mmol/L (3.3-5.1); Sodium 141 mmol/L (135-145); Total Protein 6.8 g/dL (6.5-8.0)
[2024-04-27 11:22] LABS: Glucose, Whole Blood 147 mg/dL (60-115)
[2024-04-27] MEDS: cefEPime HCl 1 GM in 0.9 % Sodium Chloride 50 ML IV (11:49)
--- NOTE | 2024-04-27 11:59 | PM.CNGS ---
History of Present Illness Consult details Consult date: 04/27/24 Narrative: Patient is a 73-year-old male with a plethora of comorbidities who presents with a 11 day or so history of left lower extremity cellulitis. Because of progression of symptoms he presents emergency department and was admitted for local wound care and IV antibiotics. CT scan demonstrates along with the cellulitis a in the anterolateral left mid leg consistent with an abscess. Chart was reviewed and patient evaluated PMFSH Past Medical History Medical History (Updated 04/27/24 @ 12:03 by Jose Luis Chinchilla MD) Duodenal ulcer Severe anemia Hyperlipemia Pancreatitis CKD (chronic kidney disease) HIV (human immunodeficiency virus infection) Chronic hepatitis Chronic use of nonprescription opiate drugs Ulcerative colitis Diabetes mellitus HTN (hypertension), benign Surgical History Surgical History H/O exploratory laparotomy (12/20/22) Hx of cholecystectomy Hx of splenectomy Status post right hip replacement History of total left knee replacement (TKR) H/O colectomy Social History Social History Household Members: None Housing: Apartment Do you presently have visiting nurse or other home services: Yes Alcohol intake: never Patient Tobacco Use Status: Former Tobacco user Tobacco use type: Cigarette Advance Directives Date on File: 06/07/21 service: No Current occupational status: disabled Meds Allergies Allergy/AdvReac Type Severity Reaction Status Date / Time ampicillin [AMPICILLIN] Allergy Mild HIVES Verified 04/26/24 07:07 aspirin [ASPIRIN] Allergy Unknown RASH Verified 04/26/24 07:07 Active Medications: Current Medications Acetaminophen (Acetaminophen 325 Mg Tablet) 650 mg PO Q6H PRN PRN Reason: Pain, Mild 1-3,fever,headache Last Admin: 04/27/24 08:22 Dose: 650 mg Albuterol Sulfate (Albuterol Sulfate 90 Mcg 8 Gm Inhaler) 2 puff INHALE QID PRN PRN Reason: Respiratory Distress Amlodipine Besylate (Amlodipine Besylate 5 Mg Tablet) 5 mg PO DAILY RASHAD; Protocol Last Admin: 04/27/24 08:20 Dose: 5 mg Buprenorphine/Naloxone (Buprenorphine/Naloxone 8/2 Mg Film) 2 film SUBLINGUAL DAILY RASHAD Last Admin: 04/27/24 08:22 Dose: 2 film Buprenorphine/Naloxone (Buprenorphine/Naloxone 8/2 Mg Film) 1 film SUBLINGUAL BEDTIME [facility] Last Admin: 04/26/24 20:33 Dose: 1 film Calcium Carbonate (Calcium Carbonate 750 Mg Tab.Chew) 750 mg PO Q4H PRN PRN Reason: Heartburn Calcium Polycarbophil (Calcium Polycarbophil Tablet) 1 tab PO BID [facility] Last Admin: 04/27/24 08:20 Dose: 1 tab Dolutegravir Sodium 50 mg/ (Lamivudine 300 mg) 0 mg PO DAILY [facility] Last Admin: 04/27/24 08:21 Dose: 300 tablet Empagliflozin (Empagliflozin 10 Mg Tablet) 10 mg PO DAILY [facility] Last Admin: 04/27/24 08:20 Dose: 10 mg Escitalopram Oxalate (Escitalopram Oxalate 10 Mg Tablet) 10 mg PO DAILY [facility] Last Admin: 04/27/24 08:20 Dose: 10 mg Gabapentin (Gabapentin 600 Mg Tablet) 600 mg PO BID [facility] Last Admin: 04/27/24 08:20 Dose: 600 mg Glucose (Glucose Gel 15 Gm Gel..Gram.) 15 gm PO Q15M PRN; Protocol PRN Reason: per Hypoglycemia Standing Ord. Heparin Sodium (Porcine) (Heparin Sodium,Porcine 5,000 Unit/Ml Vial) 5,000 unit SUBCUT Q12H [facility] Last Admin: 04/27/24 11:40 Dose: 5,000 unit Dextrose (D10) 250 mls @ 750 mls/hr IV Q15M PRN; Protocol PRN Reason: per Hypoglycemia Standing Ord. Cefepime HCl 1 gm/ Sodium (Chloride) 50 mls @ 100 mls/hr IV Q24H [facility] Last Admin: 04/27/24 11:49 Dose: 100 mls/hr Linezolid (Zyvox/D5w) 600 mg in 300 mls @ 300 mls/hr IV Q12H [facility] Last Infusion: 04/27/24 02:24 Dose: Infused Influenza Virus Vaccine (Flu Vacc [id number](6mos Up)/Pf 0.5 Ml Syringe) 0.5 ml IM .ONCE ONE Stop: 04/28/24 08:01 Insulin Human Lispro (Insulin Lispro 100 Unit/Ml 3 Ml Vial) 0 unit SUBCUT QIDACHS [facility]; Protocol Last Admin: 04/27/24 11:52 Dose: Not Given Loratadine (Loratadine 10 Mg Tablet) 10 mg PO DAILY PRN PRN Reason: Allergic Symptoms Magnesium Hydroxide (Milk Of Magnesia 30 Ml Oral.Susp) 30 ml PO DAILY PRN PRN Reason: Constipation Melatonin (Melatonin 3 Mg Tablet) 6 mg PO BEDTIME PRN PRN Reason: Insomnia Morphine Sulfate (Morphine Sulfate 2 Mg/Ml Cartridge) 2 mg IVPUSH Q4H PRN; Protocol PRN Reason: Pain, Severe (Pain Scale 7-10) Last Admin: 04/27/24 11:40 Dose: 2 mg Non-Formulary Medication (Dulaglutide [Trulicity]) 0.75 mg SUBCUT MO@0900 [facility] Omeprazole (Omeprazole 40 Mg Capsule.Dr) 40 mg PO BID@0630,1630 [facility] Last Admin: 04/27/24 06:06 Dose: 40 mg Ondansetron HCl (Ondansetron Hcl 4 Mg/2 Ml Vial) 4 mg IVPUSH Q8H PRN PRN Reason: Nausea and Vomiting Last Admin: 04/26/24 14:57 Dose: 4 mg Pravastatin Sodium (Pravastatin Sodium 40 Mg Tablet) 40 mg PO BEDTIME [facility] Last Admin: 04/26/24 20:33 Dose: 40 mg Sodium Chloride (0.9 % Sodium Chloride Flush 3 Ml Syringe) 3 ml IVFLUSH QSHIFT [facility] Last Admin: 04/27/24 08:22 Dose: 3 ml Tamsulosin HCl (Tamsulosin Hcl 0.4 Mg Capsule) 0.4 mg PO DAILY [facility] Last Admin: 04/27/24 08:20 Dose: 0.4 mg Trazodone HCl (Trazodone Hcl 100 Mg Tablet) 200 mg PO DAILY@1700 PRN PRN Reason: Insomnia Home Medications ?Medication ?Instructions ?Recorded ?Confirmed ?Last Taken ?Type albuterol sulfate 90 mcg/actuation 2 puff inhalation QID PRN 06/06/21 04/26/24 2 Days Ago History aerosol inhaler Respiratory Distress ~12/16/22 buprenorphine 8 mg-naloxone 2 mg 2 film sublingual DAILY 06/06/21 04/26/24 04/26/24 09:00 History sublingual film cetirizine 10 mg tablet 10 mg PO DAILY PRN Allergic 06/06/21 04/26/24 2 Days Ago History Symptoms ~12/16/22 gabapentin 600 mg tablet 600 mg PO BID 06/06/21 04/26/24 04/26/24 09:00 History pravastatin 40 mg tablet 40 mg PO BEDTIME 06/06/21 04/26/24 2 Days Ago History ~12/16/22 trazodone 100 mg tablet 200 mg PO DAILY@1700 PRN Insomnia 06/06/21 04/26/24 2 Days Ago History ~12/16/22 amlodipine 5 mg tablet 5 mg PO DAILY 12/18/22 04/26/24 04/26/24 09:00 History dolutegravir 50 mg-lamivudine 300 1 tab PO DAILY 12/18/22 04/26/24 04/26/24 09:00 History mg tablet (Dovato) dulaglutide 0.75 mg/0.5 mL 0.75 mg subcut MO@0900 12/18/22 04/26/24 04/21/24 History subcutaneous pen injector (Trulicity) acetaminophen 500 mg tablet 1,000 mg PO Q4H PRN Pain 04/26/24 04/26/24 Unknown History buprenorphine 8 mg-naloxone 2 mg 1 film sublingual BEDTIME 04/26/24 04/26/24 Unknown History sublingual film empagliflozin 10 mg tablet 10 mg PO DAILY 04/26/24 04/26/24 04/26/24 09:00 History (Jardiance) escitalopram oxalate 10 mg tablet 10 mg PO DAILY 04/26/24 04/26/24 04/26/24 09:00 History furosemide 80 mg tablet 80 mg PO BID@0900,1700 04/26/24 04/26/24 04/26/24 09:00 History methylcellulose (laxative) 500 mg 500 mg PO BID 04/26/24 04/26/24 04/26/24 09:00 History tablet (Fiber Therapy (methylcellulose)) omeprazole 40 mg capsule,delayed 40 mg PO BID@0630,1630 04/26/24 04/26/24 04/26/24 09:00 History release tamsulosin 0.4 mg capsule 0.4 mg PO DAILY 04/26/24 04/26/24 04/26/24 09:00 History Physical Exam Vital Signs: Vital Signs: Last Vital Signs Temp 97.3 F 04/27/24 06:57 Pulse 74 04/27/24 06:57 Resp 18 04/27/24 06:57 BP 161/79 H 04/27/24 06:57 Pulse Ox 95 04/27/24 06:57 O2 Del Method Room Air 04/27/24 06:57 BMI result Body Mass Index 30.7 Extrem: Other: Significant anterior lateral mid left leg cellulitis with a fluctuant area measuring roughly 10 x 4 cm consistent with an abscess. Results Labs 04/27/24 07:33 04/27/24 07:33 Labs: Abnormal lab results 04/26/24 04/26/24 04/26/24 Range/Units 08:28 11:18 13:15 WBC (4.8-10.8) X10*3/uL RBC (4.60-5.80) X10*6/uL Hgb (14.0-18.0) g/dl Hct (42.0-52.0) % MCV (80.0-98.0) fL MCH (27.0-33.0) pg Plt Count (160-400) X10*3/uL Neut % (Auto) (45-73) % Lymph % (Auto) (20-40) % Abs Immat Gran (auto) (0.00-0.03) X10*3/uL Absolute Neuts (auto) (2.0-8.3) x10*3/uL Absolute Nucleated RBC (0.0-0.012) X10*3/uL ESR 85 H (0-15) MM/HR Chloride (96-108) mmol/L Carbon Dioxide (22-29) mmol/L BUN (9-16) mg/dL Creatinine (0.5-1.4) mg/dL POC Glucose (60-115) mg/dL Random Glucose (60-115) mg/dL C-Reactive Protein 8.17 H (< or = 0.50) mg/dL Albumin (3.5-5.0) g/dL Ur Buprenorphine Scrn Positive H (Not Detect) ng/mL 04/26/24 04/26/24 04/27/24 Range/Units 16:42 20:15 06:56 WBC (4.8-10.8) X10*3/uL RBC (4.60-5.80) X10*6/uL Hgb (14.0-18.0) g/dl Hct (42.0-52.0) % MCV (80.0-98.0) fL MCH (27.0-33.0) pg Plt Count (160-400) X10*3/uL Neut % (Auto) (45-73) % Lymph % (Auto) (20-40) % Abs Immat Gran (auto) (0.00-0.03) X10*3/uL Absolute Neuts (auto) (2.0-8.3) x10*3/uL Absolute Nucleated RBC (0.0-0.012) X10*3/uL ESR (0-15) MM/HR Chloride (96-108) mmol/L Carbon Dioxide (22-29) mmol/L BUN (9-16) mg/dL Creatinine (0.5-1.4) mg/dL POC Glucose 191 H 124 H 119 H (60-115) mg/dL Random Glucose (60-115) mg/dL C-Reactive Protein (< or = 0.50) mg/dL Albumin (3.5-5.0) g/dL Ur Buprenorphine Scrn (Not Detect) ng/mL 04/27/24 04/27/24 Range/Units 07:33 11:15 WBC 11.9 H (4.8-10.8) X10*3/uL RBC 3.58 L (4.60-5.80) X10*6/uL Hgb 12.3 L (14.0-18.0) g/dl Hct 37.1 L (42.0-52.0) % MCV 103.6 H (80.0-98.0) fL MCH 34.4 H (27.0-33.0) pg Plt Count 425 H (160-400) X10*3/uL Neut % (Auto) 75.2 H (45-73) % Lymph % (Auto) 15.8 L (20-40) % Abs Immat Gran (auto) 0.05 H (0.00-0.03) X10*3/uL Absolute Neuts (auto) 9.0 H (2.0-8.3) x10*3/uL Absolute Nucleated RBC 0.020 H (0.0-0.012) X10*3/uL ESR (0-15) MM/HR Chloride 114 H (96-108) mmol/L Carbon Dioxide 17 L (22-29) mmol/L BUN 37 H (9-16) mg/dL Creatinine 2.69 H (0.5-1.4) mg/dL POC Glucose 147 H (60-115) mg/dL Random Glucose 124 H (60-115) mg/dL C-Reactive Protein (< or = 0.50) mg/dL Albumin 3.0 L (3.5-5.0) g/dL Ur Buprenorphine Scrn (Not Detect) ng/mL Short CBC 04/27/24 Range/Units 07:33 WBC 11.9 H (4.8-10.8) X10*3/uL Hgb 12.3 L (14.0-18.0) g/dl Hct 37.1 L (42.0-52.0) % Plt Count 425 H (160-400) X10*3/uL BMP 04/27/24 07:33 Sodium 141 Potassium 4.8 Chloride 114 H Carbon Dioxide 17 L BUN 37 H Creatinine 2.69 H Calcium 9.2 Cardiac Enzymes 04/26/24 Range/Units 08:28 Total Creatine Kinase 49 (38-174) U/L Liver Function 04/27/24 Range/Units 07:33 Total Bilirubin 0.2 (0.0-1.0) mg/dL AST 26 (5-37) U/L ALT 14 (0-40) U/L Alkaline Phosphatase 87 (39-117) U/L Albumin 3.0 L (3.5-5.0) g/dL Urine 04/26/24 Range/Units 11:18 Urine Color Yellow Urine Appearance Clear Urine pH 5.0 (5.0-9.0) Ur Specific [place] <= 1.005 (1.005-1.025) Urine Protein Negative (Neg-Trace) mg/dL Urine Glucose (UA) 250 H (Negative) mg/dL All other labs normal. Assessment and Plan (1) Cellulitis of left lower extremity from knee to ankle: Status: Acute (2) Abscess of left leg: Status: Acute Plan See procedure note. Continue IV antibiotics, local wound care and elevation of extremity. Dressing changes ordered. Procedures Date of Service Date of Service: 04/27/24 Abscess I/D Site: lower extremity Side (if applicable): left (Patient underwent 1% lidocaine and Betadine prep and a longitudinal incision was made) Anesthetic used: lidocaine 1% Additional comments: Patient underwent 1% lidocaine and Betadine prep and longitudinal was made over the abscess cavity in the anterolateral mid left leg. Copious amounts of purulent material were retrieved. Cultures were obtained. Wound was irrigated, secured hemostasis, packed, and dressing and Kerlix wrap applied. Patient tolerated procedure well.
--- NOTE | 2024-04-27 13:38 | HO.PM.IMPN ---
Subjective Subjective Date of Service: 04/27/24 Interval History: triny ,leg cellulitis with possible abcess Physical Exam Vital Signs: Vital Signs: Last Vital Signs Temp 97.3 F 04/27/24 06:57 Pulse 74 04/27/24 06:57 Resp 18 04/27/24 06:57 BP 161/79 H 04/27/24 06:57 Pulse Ox 95 04/27/24 06:57 O2 Del Method Room Air 04/27/24 06:57 BMI result Body Mass Index 30.7 Objective Data Active Medications Acetaminophen (Acetaminophen 325 Mg Tablet) 650 mg PO Q6H PRN PRN Reason: Pain, Mild 1-3,fever,headache Last Admin: 04/27/24 08:22 Dose: 650 mg Documented By: VAN Albuterol Sulfate (Albuterol Sulfate 90 Mcg 8 Gm Inhaler) 2 puff INHALE QID PRN PRN Reason: Respiratory Distress Amlodipine Besylate (Amlodipine Besylate 5 Mg Tablet) 5 mg PO DAILY [facility]; Protocol Last Admin: 04/27/24 08:20 Dose: 5 mg Documented By: VAN Buprenorphine/Naloxone (Buprenorphine/Naloxone 8/2 Mg Film) 2 film SUBLINGUAL DAILY [facility] Last Admin: 04/27/24 08:22 Dose: 2 film Documented By: VAN Buprenorphine/Naloxone (Buprenorphine/Naloxone 8/2 Mg Film) 1 film SUBLINGUAL BEDTIME [facility] Last Admin: 04/26/24 20:33 Dose: 1 film Documented By: FESTUS Calcium Carbonate (Calcium Carbonate 750 Mg Tab.Chew) 750 mg PO Q4H PRN PRN Reason: Heartburn Calcium Polycarbophil (Calcium Polycarbophil Tablet) 1 tab PO BID [facility] Last Admin: 04/27/24 08:20 Dose: 1 tab Documented By: VAN Dolutegravir Sodium 50 mg/ (Lamivudine 300 mg) 0 mg PO DAILY [facility] Last Admin: 04/27/24 08:21 Dose: 300 tablet Documented By: VAN Empagliflozin (Empagliflozin 10 Mg Tablet) 10 mg PO DAILY [facility] Last Admin: 04/27/24 08:20 Dose: 10 mg Documented By: VAN Escitalopram Oxalate (Escitalopram Oxalate 10 Mg Tablet) 10 mg PO DAILY [facility] Last Admin: 04/27/24 08:20 Dose: 10 mg Documented By: VAN Gabapentin (Gabapentin 600 Mg Tablet) 600 mg PO BID [facility] Last Admin: 04/27/24 08:20 Dose: 600 mg Documented By: VAN Glucose (Glucose Gel 15 Gm Gel..Gram.) 15 gm PO Q15M PRN; Protocol PRN Reason: per Hypoglycemia Standing Ord. Heparin Sodium (Porcine) (Heparin Sodium,Porcine 5,000 Unit/Ml Vial) 5,000 unit SUBCUT Q12H [facility] Last Admin: 04/27/24 11:40 Dose: 5,000 unit Documented By: VAN Dextrose (D10) 250 mls @ 750 mls/hr IV Q15M PRN; Protocol PRN Reason: per Hypoglycemia Standing Ord. Cefepime HCl 1 gm/ Sodium (Chloride) 50 mls @ 100 mls/hr IV Q24H [facility] Last Infusion: 04/27/24 12:56 Dose: Infused Documented By: VAN Linezolid (Zyvox/D5w) 600 mg in 300 mls @ 300 mls/hr IV Q12H [facility] Last Admin: 04/27/24 12:53 Dose: 600 mls/hr Documented By: VAN Influenza Virus Vaccine (Flu Vacc [id number](6mos Up)/Pf 0.5 Ml Syringe) 0.5 ml IM .ONCE ONE Stop: 04/28/24 08:01 Insulin Human Lispro (Insulin Lispro 100 Unit/Ml 3 Ml Vial) 0 unit SUBCUT QIDACHS [facility]; Protocol Last Admin: 04/27/24 11:52 Dose: Not Given Documented By: VAN Non-Admin Reason: No Insulin Coverage Loratadine (Loratadine 10 Mg Tablet) 10 mg PO DAILY PRN PRN Reason: Allergic Symptoms Magnesium Hydroxide (Milk Of Magnesia 30 Ml Oral.Susp) 30 ml PO DAILY PRN PRN Reason: Constipation Melatonin (Melatonin 3 Mg Tablet) 6 mg PO BEDTIME PRN PRN Reason: Insomnia Morphine Sulfate (Morphine Sulfate 2 Mg/Ml Cartridge) 2 mg IVPUSH Q4H PRN; Protocol PRN Reason: Pain, Severe (Pain Scale 7-10) Last Admin: 04/27/24 11:40 Dose: 2 mg Documented By: VAN Non-Formulary Medication (Dulaglutide [Trulicity]) 0.75 mg SUBCUT MO@0900 [facility] Omeprazole (Omeprazole 40 Mg Capsule.) 40 mg PO BID@0630,1630 [facility] Last Admin: 04/27/24 06:06 Dose: 40 mg Documented By: FESTUS Ondansetron HCl (Ondansetron Hcl 4 Mg/2 Ml Vial) 4 mg IVPUSH Q8H PRN PRN Reason: Nausea and Vomiting Last Admin: 04/26/24 14:57 Dose: 4 mg Documented By: YONATHAN Pravastatin Sodium (Pravastatin Sodium 40 Mg Tablet) 40 mg PO BEDTIME [facility] Last Admin: 04/26/24 20:33 Dose: 40 mg Documented By: FESTUS Sodium Chloride (0.9 % Sodium Chloride Flush 3 Ml Syringe) 3 ml IVFLUSH QSHIFT [facility] Last Admin: 04/27/24 08:22 Dose: 3 ml Documented By: VAN Tamsulosin HCl (Tamsulosin Hcl 0.4 Mg Capsule) 0.4 mg PO DAILY [facility] Last Admin: 04/27/24 08:20 Dose: 0.4 mg Documented By: VAN Trazodone HCl (Trazodone Hcl 100 Mg Tablet) 200 mg PO DAILY@1700 PRN PRN Reason: Insomnia Labs 04/27/24 07:33 04/27/24 07:33 Labs: Laboratory Results - last 24 hr 04/26/24 04/26/24 04/26/24 13:15 16:42 20:15 MCV MCH MCHC RDW Plt Count MPV Immature Gran % (Auto) Neut % (Auto) Lymph % (Auto) [place] % (Auto) Eos % (Auto) Baso % (Auto) Lymph # (Auto) [place] # (Auto) Eos # (Auto) Baso # (Auto) Abs Immat Gran (auto) Absolute Neuts (auto) Absolute Nucleated RBC Nucleated RBC % (auto) ESR 85 H Anion Gap Estim Creat Clear Calc Estimated GFR POC Glucose 191 H 124 H Random Glucose Calcium Total Bilirubin AST ALT Alkaline Phosphatase Total Protein Albumin 04/27/24 04/27/24 04/27/24 06:56 07:33 11:15 MCV 103.6 H MCH 34.4 H MCHC 33.2 RDW 14.1 Plt Count 425 H MPV 9.5 Immature Gran % (Auto) 0.4 Neut % (Auto) 75.2 H Lymph % (Auto) 15.8 L [place] % (Auto) 7.6 Eos % (Auto) 0.5 Baso % (Auto) 0.5 Lymph # (Auto) 1.9 [place] # (Auto) 0.9 Eos # (Auto) 0.1 Baso # (Auto) 0.1 Abs Immat Gran (auto) 0.05 H Absolute Neuts (auto) 9.0 H Absolute Nucleated RBC 0.020 H Nucleated RBC % (auto) 0.2 ESR Anion Gap 15 Estim Creat Clear Calc 24.7 Estimated GFR 23 POC Glucose 119 H 147 H Random Glucose 124 H Calcium 9.2 Total Bilirubin 0.2 AST 26 ALT 14 Alkaline Phosphatase 87 Total Protein 6.8 Albumin 3.0 L Microbiology Microbiology Results: Microbiology 04/26/24 08:50 Blood Culture - Preliminary Blood - Venous No growth after 24 hours. 04/26/24 08:28 Blood Culture - Preliminary Blood - Venous No growth after 24 hours. Assessment and Plan (1) Abscess of left leg: Status: Acute Plan 73-year-old male presents to the emergency department with left lower extremity pain, swelling and worsening wound over the past 10 days. Clinically noted to have cellulitis with purulent wound drainage.triny. Cellulitis of left lower leg- acute infection to the left lower extremities resulting in cellulitis he has associated leukocytosis. esr 85, crp 8 continue cefepime 1 G Q24HH and Daptomycin 6mg/kg Q48H due to kidney function. surgery saw the patient-s/p i&D , cultures sent by surgery blood cultures neg@24hrs continue Linezolid and continue cefepime no need for dapto only if bacterimia present. wound care and Id eval. HTN continue home medications amlodipine 5 mg p.o. daily, carvedilol 12.5 mg p.o. b.i.d., hydrochlorothiazide 12.5 mg p.o. daily( will d/c this at this time due to kidney function) HLD- continue pravastatin 40 mg p.o. at bedtime DM fs with sliding scale in order diabetic diet. triny on CKD patient's BUN 61 creatinine 4.27 this is deviating significantly from his baseline. Receiving IV fluids, 2 L ordered by this PA-C Will repeat labs in the morning. Patient is still making urine, eating and drinking. Will also put in nephro consult HIV continue home Dovato 1 tab po daily Chronic hepatitis -chronic in nature no elevations in transaminases should not be a barrier to patient's care Choric use of non prescription opiates -patient is on home buprenorphine, naloxone 1 film sublingual TID . ongoing need for hospilisation stay- right leg cellulitis/abcess ,triny-need iv antibiotics ,fluids , blood cultures and wound cultures pending ,ID and wound care eval. Quality Stroke Does the patient have a stroke diagnosis?: No VTE Prior VTE?: No VTE Risk Level:: Medical - moderate - high VTE Device Contraindication: Treatment Not Indicated VTE Drug Contraindication: N/A - Med Ordered
--- NOTE | 2024-04-27 14:17 | MHC.CM.PN ---
IMM 04/27/24, Pt lives alone, he has home health services from [facility] of 2 hrs a day of [employer], and MOW. HCP is confirmed: his son Dhiraj in [place]. PCP is confirmed: Mora Gooden. For DME he has: w/c. walker and a cane. He is able to arrange transport home at [place]. DCP: home, resume services. CM to follow for DC needs.
[2024-04-27 15:15] VITALS: BP 154/65; PULSE 64; RESP 18; TEMP 36.9; O2SAT 95
[2024-04-27 15:32] LABS: Glucose, Whole Blood 171 mg/dL (60-115)
[2024-04-27] MEDS: Insulin Lispro 100 UNIT/ML 3 ML VIAL SUBCUT ×2 (15:52→21:48)
[2024-04-27 20:00] VITALS: BP 147/55; PULSE 70; RESP 20; TEMP 36.5; O2SAT 94
[2024-04-27 21:15] LABS: Glucose, Whole Blood 167 mg/dL (60-115)
[2024-04-27] MEDS: Pravastatin Sodium 40 MG TABLET PO (21:48)
[2024-04-27] MEDS: Buprenorphine/Naloxone 8/2 mg FILM 1 FILM SUBLINGUAL (21:49)
[2024-04-27] MEDS: traZODone HCL 100 MG TABLET 200 MG PO (21:50)
[2024-04-27 22:58] VITALS: BP 177/79; PULSE 62; RESP 20; TEMP 36.6; O2SAT 95
[2024-04-28] VITALS (7 sets, daily range): BP systolic 139–170; BP diastolic 64–78; PULSE 60–67; RESP 14–20; TEMP 36.5–37.1; O2SAT 94–98
--- NOTE | 2024-04-28 00:55 | W.PM.IDCN ---
History of Present Illness Data of Consult Service Date: 04/27/24 Requesting physician: Wander Aggarwal Primary Care Provider: Mora Gooden MD HPI Reason for consult: LLE cellulitis He presents with reddened LLE for 10 days. He has HIV and is under care of Mora Gooden at [facility] and takes Dovato. He says he is compliant. He reports pancreatitis,ulcerative colitis. He has no specific organism. Review of Systems Review of Systems: Yes all other systems are reviewed and are negative PMFSH Past Medical History Medical History Duodenal ulcer Severe anemia Hyperlipemia Pancreatitis CKD (chronic kidney disease) HIV (human immunodeficiency virus infection) Chronic hepatitis Chronic use of nonprescription opiate drugs Ulcerative colitis Diabetes mellitus HTN (hypertension), benign Family History Family history: reviewed and not pertinent Surgical History Surgical History H/O exploratory laparotomy (12/20/22) Hx of cholecystectomy Hx of splenectomy Status post right hip replacement History of total left knee replacement (TKR) H/O colectomy Social History Social History Household Members: None Housing: Apartment Do you presently have visiting nurse or other home services: Yes Alcohol intake: never Patient Tobacco Use Status: Former Tobacco user Tobacco use type: Cigarette Advance Directives Date on File: 06/07/21 service: No Current occupational status: disabled Meds Allergies Allergy/AdvReac Type Severity Reaction Status Date / Time ampicillin [AMPICILLIN] Allergy Mild HIVES Verified 04/26/24 07:07 aspirin [ASPIRIN] Allergy Unknown RASH Verified 04/26/24 07:07 Active Medications: Current Medications Acetaminophen (Acetaminophen 325 Mg Tablet) 650 mg PO Q6H PRN PRN Reason: Pain, Mild 1-3,fever,headache Last Admin: 04/27/24 08:22 Dose: 650 mg Albuterol Sulfate (Albuterol Sulfate 90 Mcg 8 Gm Inhaler) 2 puff INHALE QID PRN PRN Reason: Respiratory Distress Amlodipine Besylate (Amlodipine Besylate 5 Mg Tablet) 5 mg PO DAILY [facility]ASHAD; Protocol Last Admin: 04/27/24 08:20 Dose: 5 mg Buprenorphine/Naloxone (Buprenorphine/Naloxone 8/2 Mg Film) 2 film SUBLINGUAL DAILY [facility] Last Admin: 04/27/24 08:22 Dose: 2 film Buprenorphine/Naloxone (Buprenorphine/Naloxone 8/2 Mg Film) 1 film SUBLINGUAL BEDTIME [facility] Last Admin: 04/27/24 21:49 Dose: 1 film Calcium Carbonate (Calcium Carbonate 750 Mg Tab.Chew) 750 mg PO Q4H PRN PRN Reason: Heartburn Calcium Polycarbophil (Calcium Polycarbophil Tablet) 1 tab PO BID [facility] Last Admin: 04/27/24 21:48 Dose: 1 tab Dolutegravir Sodium 50 mg/ (Lamivudine 300 mg) 0 mg PO DAILY [facility] Last Admin: 04/27/24 08:21 Dose: 300 tablet Empagliflozin (Empagliflozin 10 Mg Tablet) 10 mg PO DAILY [facility] Last Admin: 04/27/24 08:20 Dose: 10 mg Escitalopram Oxalate (Escitalopram Oxalate 10 Mg Tablet) 10 mg PO DAILY [facility] Last Admin: 04/27/24 08:20 Dose: 10 mg Gabapentin (Gabapentin 600 Mg Tablet) 600 mg PO BID [facility] Last Admin: 04/27/24 21:48 Dose: 600 mg Glucose (Glucose Gel 15 Gm Gel..Gram.) 15 gm PO Q15M PRN; Protocol PRN Reason: per Hypoglycemia Standing Ord. Heparin Sodium (Porcine) (Heparin Sodium,Porcine 5,000 Unit/Ml Vial) 5,000 unit SUBCUT Q12H [facility] Last Admin: 04/27/24 11:40 Dose: 5,000 unit Dextrose (D10) 250 mls @ 750 mls/hr IV Q15M PRN; Protocol PRN Reason: per Hypoglycemia Standing Ord. Cefepime HCl 1 gm/ Sodium (Chloride) 50 mls @ 100 mls/hr IV Q24H [facility] Last Infusion: 04/27/24 12:56 Dose: Infused Linezolid (Zyvox/D5w) 600 mg in 300 mls @ 300 mls/hr IV Q12H [facility] Last Infusion: 04/27/24 14:35 Dose: Infused Influenza Virus Vaccine (Flu Vacc [id number](6mos Up)/Pf 0.5 Ml Syringe) 0.5 ml IM .ONCE ONE Stop: 04/28/24 08:01 Insulin Human Lispro (Insulin Lispro 100 Unit/Ml 3 Ml Vial) 0 unit SUBCUT QIDACHS [facility]; Protocol Last Admin: 04/27/24 21:48 Dose: 2 unit Loratadine (Loratadine 10 Mg Tablet) 10 mg PO DAILY PRN PRN Reason: Allergic Symptoms Magnesium Hydroxide (Milk Of Magnesia 30 Ml Oral.Susp) 30 ml PO DAILY PRN PRN Reason: Constipation Melatonin (Melatonin 3 Mg Tablet) 6 mg PO BEDTIME PRN PRN Reason: Insomnia Morphine Sulfate (Morphine Sulfate 2 Mg/Ml Cartridge) 2 mg IVPUSH Q4H PRN; Protocol PRN Reason: Pain, Severe (Pain Scale 7-10) Last Admin: 04/27/24 23:00 Dose: 2 mg Non-Formulary Medication (Dulaglutide [Trulicity]) 0.75 mg SUBCUT MO@0900 [facility] Omeprazole (Omeprazole 40 Mg Capsule.Dr) 40 mg PO BID@0630,1630 [facility] Last Admin: 04/27/24 15:52 Dose: 40 mg Ondansetron HCl (Ondansetron Hcl 4 Mg/2 Ml Vial) 4 mg IVPUSH Q8H PRN PRN Reason: Nausea and Vomiting Last Admin: 04/26/24 14:57 Dose: 4 mg Pravastatin Sodium (Pravastatin Sodium 40 Mg Tablet) 40 mg PO BEDTIME [facility] Last Admin: 04/27/24 21:48 Dose: 40 mg Sodium Chloride (0.9 % Sodium Chloride Flush 3 Ml Syringe) [address] [facility] Last Admin: 04/27/24 21:49 Dose: 3 ml Tamsulosin HCl (Tamsulosin Hcl 0.4 Mg Capsule) 0.4 mg PO DAILY [facility] Last Admin: 04/27/24 08:20 Dose: 0.4 mg Trazodone HCl (Trazodone Hcl 100 Mg Tablet) 200 mg PO DAILY@1700 PRN PRN Reason: Insomnia Last Admin: 04/27/24 21:50 Dose: 200 mg Home Medications ?Medication ?Instructions ?Recorded ?Confirmed ?Last Taken ?Type albuterol sulfate 90 mcg/actuation 2 puff inhalation QID PRN 06/06/21 04/26/24 2 Days Ago History aerosol inhaler Respiratory Distress ~12/16/22 buprenorphine 8 mg-naloxone 2 mg 2 film sublingual DAILY 06/06/21 04/26/24 04/26/24 09:00 History sublingual film cetirizine 10 mg tablet 10 mg PO DAILY PRN Allergic 06/06/21 04/26/24 2 Days Ago History Symptoms ~12/16/22 gabapentin 600 mg tablet 600 mg PO BID 06/06/21 04/26/24 04/26/24 09:00 History pravastatin 40 mg tablet 40 mg PO BEDTIME 06/06/21 04/26/24 2 Days Ago History ~12/16/22 trazodone 100 mg tablet 200 mg PO DAILY@1700 PRN Insomnia 06/06/21 04/26/24 2 Days Ago History ~12/16/22 amlodipine 5 mg tablet 5 mg PO DAILY 12/18/22 04/26/24 04/26/24 09:00 History dolutegravir 50 mg-lamivudine 300 1 tab PO DAILY 12/18/22 04/26/24 04/26/24 09:00 History mg tablet (Dovato) dulaglutide 0.75 mg/0.5 mL 0.75 mg subcut MO@0900 12/18/22 04/26/24 04/21/24 History subcutaneous pen injector (Trulicity) acetaminophen 500 mg tablet 1,000 mg PO Q4H PRN Pain 04/26/24 04/26/24 Unknown History buprenorphine 8 mg-naloxone 2 mg 1 film sublingual BEDTIME 04/26/24 04/26/24 Unknown History sublingual film empagliflozin 10 mg tablet 10 mg PO DAILY 04/26/24 04/26/24 04/26/24 09:00 History (Jardiance) escitalopram oxalate 10 mg tablet 10 mg PO DAILY 04/26/24 04/26/24 04/26/24 09:00 History furosemide 80 mg tablet 80 mg PO BID@0900,1700 04/26/24 04/26/24 04/26/24 09:00 History methylcellulose (laxative) 500 mg 500 mg PO BID 04/26/24 04/26/24 04/26/24 09:00 History tablet (Fiber Therapy (methylcellulose)) omeprazole 40 mg capsule,delayed 40 mg PO BID@0630,1630 04/26/24 04/26/24 04/26/24 09:00 History release tamsulosin 0.4 mg capsule 0.4 mg PO DAILY 04/26/24 04/26/24 04/26/24 09:00 History Physical Exam Vital Signs: Vital Signs: Last Vital Signs Temp 97.8 F 04/28/24 00:46 Pulse 67 04/28/24 00:46 Resp 16 04/28/24 00:46 BP 156/70 H 04/28/24 00:46 Pulse Ox 98 04/28/24 00:46 O2 Del Method Room Air 04/28/24 00:46 BMI result Body Mass Index 30.7 Const: General: cooperative HEENT: Head: Yes normal to inspection Face and sinus: Yes normal facial exam Mouth: Normal oral and palatal mucosa present Teeth and gingiva: dentition normal Eyes: General: appearance normal, both eyes and all related structures Pupils: Equal, round and reactive pupils present Resp: Effort & Inspection: normal respiratory effort Cardio: Rate: regular rate Rhythm: regular rhythm GI: Palpation (GI): Soft to palpation and nontender : General: Yes no CVA tenderness Back/Spine/Pelvis: Back: no CVA tenderness Skin: General skin exam: no rashes or lesions noted Neuro: General: moves all extremities Cranial nerves: Yes Equal, round and reactive pupils present Extrem: Other: reddened LLE Psych: Appearance: grossly normal Results Labs 04/27/24 07:33 04/27/24 07:33 Labs: Short CBC 04/27/24 Range/Units 07:33 WBC 11.9 H (4.8-10.8) X10*3/uL Hgb 12.3 L (14.0-18.0) g/dl Hct 37.1 L (42.0-52.0) % Plt Count 425 H (160-400) X10*3/uL BMP 04/27/24 07:33 Sodium 141 Potassium 4.8 Chloride 114 H Carbon Dioxide 17 L BUN 37 H Creatinine 2.69 H Calcium 9.2 Liver Function 04/27/24 Range/Units 07:33 Total Bilirubin 0.2 (0.0-1.0) mg/dL AST 26 (5-37) U/L ALT 14 (0-40) U/L Alkaline Phosphatase 87 (39-117) U/L Albumin 3.0 L (3.5-5.0) g/dL Microbiology Microbiology Results: Microbiology 04/27/24 12:03 Leg Left Gram Stain - Final 04/26/24 08:50 Blood - Venous Blood Culture - Preliminary No growth after 24 hours. 04/26/24 08:28 Blood - Venous Blood Culture - Preliminary No growth after 24 hours. Assessment and Plan (1) Abscess of left leg: Status: Acute (2) Cellulitis of left lower extremity from knee to ankle: Status: Acute (3) HIV (human immunodeficiency virus infection): Qualifiers: HIV symptom status: unspecified Qualified Code(s): Z21 - Asymptomatic human immunodeficiency virus [HIV] infection status Status: Acute Plan Continue Cefepime. Add linezolid Duration antibiotics to be determined. Add Dovato back.
[2024-04-28] MEDS: Heparin Sodium,Porcine 5,000 UNIT/ML VIAL 5000 UNIT SUBCUT ×3 (01:20→23:41)
[2024-04-28] MEDS: Linezolid/D5W 600 MG/300 ML PIGGYBACK IV ×2 (01:20→17:18)
[2024-04-28] MEDS: Morphine Sulfate 2 MG/ML CARTRIDGE IVPUSH ×4 (05:14→20:02)
[2024-04-28] MEDS: Omeprazole 40 MG CAPSULE.DR PO ×2 (05:14→17:17)
[2024-04-28 07:23] LABS: Glucose, Whole Blood 102 mg/dL (60-115)
[2024-04-28 07:41] LABS: Anion Gap 10 (12-20); Blood Urea Nitrogen 31 mg/dL (9-16); Calcium 8.8 mg/dL (8.4-10.2); Carbon Dioxide 21 mmol/L (22-29); Chloride 115 mmol/L (96-108); Creatinine Clr Calc Pharmacy 29.3; Estimated Glomerular Filt Rate 28; Glucose Random 114 mg/dL (60-115); Potassium 4.5 mmol/L (3.3-5.1); Sodium 141 mmol/L (135-145)
[2024-04-28] MEDS: DOLUTEGRAVIR 50 MG PO (08:51)
[2024-04-28] MEDS: LAMIVUDINE 300 MG PO (08:51)
[2024-04-28] MEDS: amLODIPine Besylate 5 MG TABLET PO (08:52)
[2024-04-28] MEDS: Gabapentin 600 MG TABLET PO ×2 (08:52→20:02)
[2024-04-28] MEDS: Tamsulosin HCL 0.4 MG CAPSULE PO (08:52)
[2024-04-28] MEDS: Empagliflozin 10 MG TABLET PO (08:52)
[2024-04-28] MEDS: Buprenorphine/Naloxone 8/2 mg FILM 2 FILM SUBLINGUAL (08:52)
[2024-04-28] MEDS: 0.9 % Sodium Chloride Flush 3 ML SYRINGE IVFLUSH ×2 (08:52→20:02)
[2024-04-28] MEDS: calcium polycarbophiL TABLET 1 TAB PO ×2 (08:52→20:02)
[2024-04-28] MEDS: Escitalopram Oxalate 10 MG TABLET PO (08:52)
--- NOTE | 2024-04-28 09:23 | P.CONNP_ITS ---
History of Present Illness Reason for Consult Consult date: 04/28/24 Reason for consult: MARY JO Chief Complaint Chief complaint: LLE wound/cellulitis History of Present Illness Narrative: 73-year-old male presents to the emergency department with left lower extremity pain, swelling and worsening wound over the past 10 days. Clinically noted to have cellulitis with purulent wound drainage Consulted for MARY JO h/o MARY JO in past Currrently cr is improving Review of Systems Constitutional: Denies fever(s) and Denies weight loss Cardiovascular: Denies chest pain Respiratory: Denies cough and Denies hemoptysis Gastrointestinal: Denies abdominal pain, Denies diarrhea and Denies nausea Musculoskeletal: Denies back pain Denies focal weakness PMFSH Past Medical History Medical History Duodenal ulcer Severe anemia Hyperlipemia Pancreatitis CKD (chronic kidney disease) HIV (human immunodeficiency virus infection) Chronic hepatitis Chronic use of nonprescription opiate drugs Ulcerative colitis Diabetes mellitus HTN (hypertension), benign Family History Family history: reviewed and not pertinent Surgical History Surgical History H/O exploratory laparotomy (12/20/22) Hx of cholecystectomy Hx of splenectomy Status post right hip replacement History of total left knee replacement (TKR) H/O colectomy Social History Social History Household Members: None Housing: Apartment Do you presently have visiting nurse or other home services: Yes Alcohol intake: never Patient Tobacco Use Status: Former Tobacco user Tobacco use type: Cigarette Advance Directives Date on File: 06/07/21 service: No Current occupational status: disabled Meds Allergies Allergy/AdvReac Type Severity Reaction Status Date / Time ampicillin [AMPICILLIN] Allergy Mild HIVES Verified 04/26/24 07:07 aspirin [ASPIRIN] Allergy Unknown RASH Verified 04/26/24 07:07 Active Medications: Current Medications Acetaminophen (Acetaminophen 325 Mg Tablet) 650 mg PO Q6H PRN PRN Reason: Pain, Mild 1-3,fever,headache Last Admin: 04/27/24 08:22 Dose: 650 mg Albuterol Sulfate (Albuterol Sulfate 90 Mcg 8 Gm Inhaler) 2 puff INHALE QID PRN PRN Reason: Respiratory Distress Amlodipine Besylate (Amlodipine Besylate 5 Mg Tablet) 5 mg PO DAILY [facility]; Protocol Last Admin: 04/28/24 08:52 Dose: 5 mg Buprenorphine/Naloxone (Buprenorphine/Naloxone 8/2 Mg Film) 2 film SUBLINGUAL DAILY [facility] Last Admin: 04/28/24 08:52 Dose: 2 film Buprenorphine/Naloxone (Buprenorphine/Naloxone 8/2 Mg Film) 1 film SUBLINGUAL BEDTIME [facility] Last Admin: 04/27/24 21:49 Dose: 1 film Calcium Carbonate (Calcium Carbonate 750 Mg Tab.Chew) 750 mg PO Q4H PRN PRN Reason: Heartburn Calcium Polycarbophil (Calcium Polycarbophil Tablet) 1 tab PO BID [facility] Last Admin: 04/28/24 08:52 Dose: 1 tab Dolutegravir Sodium 50 mg/ (Lamivudine 300 mg) 0 mg PO DAILY [facility] Last Admin: 04/28/24 08:51 Dose: 300 tablet Empagliflozin (Empagliflozin 10 Mg Tablet) 10 mg PO DAILY [facility] Last Admin: 04/28/24 08:52 Dose: 10 mg Escitalopram Oxalate (Escitalopram Oxalate 10 Mg Tablet) 10 mg PO DAILY [facility] Last Admin: 04/28/24 08:52 Dose: 10 mg Gabapentin (Gabapentin 600 Mg Tablet) 600 mg PO BID [facility] Last Admin: 04/28/24 08:52 Dose: 600 mg Glucose (Glucose Gel 15 Gm Gel..Gram.) 15 gm PO Q15M PRN; Protocol PRN Reason: per Hypoglycemia Standing Ord. Heparin Sodium (Porcine) (Heparin Sodium,Porcine 5,000 Unit/Ml Vial) 5,000 unit SUBCUT Q12H [facility] Last Admin: 04/28/24 01:20 Dose: 5,000 unit Dextrose (D10) 250 mls @ 750 mls/hr IV Q15M PRN; Protocol PRN Reason: per Hypoglycemia Standing Ord. Cefepime HCl 1 gm/ Sodium (Chloride) 50 mls @ 100 mls/hr IV Q24H [facility] Last Infusion: 04/27/24 12:56 Dose: Infused Linezolid (Zyvox/D5w) 600 mg in 300 mls @ 300 mls/hr IV Q12H [facility] Last Infusion: 04/28/24 01:50 Dose: Infused Insulin Human Lispro (Insulin Lispro 100 Unit/Ml 3 Ml Vial) 0 unit SUBCUT QIDACHS [facility]; Protocol Last Admin: 04/28/24 08:18 Dose: Not Given Loratadine (Loratadine 10 Mg Tablet) 10 mg PO DAILY PRN PRN Reason: Allergic Symptoms Magnesium Hydroxide (Milk Of Magnesia 30 Ml Oral.Susp) 30 ml PO DAILY PRN PRN Reason: Constipation Melatonin (Melatonin 3 Mg Tablet) 6 mg PO BEDTIME PRN PRN Reason: Insomnia Morphine Sulfate (Morphine Sulfate 2 Mg/Ml Cartridge) 2 mg IVPUSH Q4H PRN; Protocol PRN Reason: Pain, Severe (Pain Scale 7-10) Last Admin: 04/28/24 08:58 Dose: 2 mg Non-Formulary Medication (Dulaglutide [Trulicity]) 0.75 mg SUBCUT MO@0900 [facility] Omeprazole (Omeprazole 40 Mg Capsule.Dr) 40 mg PO BID@0630,1630 [facility] Last Admin: 04/28/24 05:14 Dose: 40 mg Ondansetron HCl (Ondansetron Hcl 4 Mg/2 Ml Vial) 4 mg IVPUSH Q8H PRN PRN Reason: Nausea and Vomiting Last Admin: 04/26/24 14:57 Dose: 4 mg Pravastatin Sodium (Pravastatin Sodium 40 Mg Tablet) 40 mg PO BEDTIME [facility] Last Admin: 04/27/24 21:48 Dose: 40 mg Sodium Chloride (0.9 % Sodium Chloride Flush 3 Ml Syringe) [facility] Last Admin: 04/28/24 08:52 Dose: 3 ml Tamsulosin HCl (Tamsulosin Hcl 0.4 Mg Capsule) 0.4 mg PO DAILY [facility] Last Admin: 04/28/24 08:52 Dose: 0.4 mg Trazodone HCl (Trazodone Hcl 100 Mg Tablet) 200 mg PO DAILY@1700 PRN PRN Reason: Insomnia Last Admin: 04/27/24 21:50 Dose: 200 mg Home Medications ?Medication ?Instructions ?Recorded ?Confirmed ?Last Taken ?Type albuterol sulfate 90 mcg/actuation 2 puff inhalation QID PRN 06/06/21 04/26/24 2 Days Ago History aerosol inhaler Respiratory Distress ~12/16/22 buprenorphine 8 mg-naloxone 2 mg 2 film sublingual DAILY 06/06/21 04/26/24 04/26/24 09:00 History sublingual film cetirizine 10 mg tablet 10 mg PO DAILY PRN Allergic 06/06/21 04/26/24 2 Days Ago History Symptoms ~12/16/22 gabapentin 600 mg tablet 600 mg PO BID 06/06/21 04/26/24 04/26/24 09:00 History pravastatin 40 mg tablet 40 mg PO BEDTIME 06/06/21 04/26/24 2 Days Ago History ~12/16/22 trazodone 100 mg tablet 200 mg PO DAILY@1700 PRN Insomnia 06/06/21 04/26/24 2 Days Ago History ~12/16/22 amlodipine 5 mg tablet 5 mg PO DAILY 12/18/22 04/26/24 04/26/24 09:00 History dolutegravir 50 mg-lamivudine 300 1 tab PO DAILY 12/18/22 04/26/24 04/26/24 09:00 History mg tablet (Dovato) dulaglutide 0.75 mg/0.5 mL 0.75 mg subcut MO@0900 12/18/22 04/26/24 04/21/24 History subcutaneous pen injector (Trulicity) acetaminophen 500 mg tablet 1,000 mg PO Q4H PRN Pain 04/26/24 04/26/24 Unknown History buprenorphine 8 mg-naloxone 2 mg 1 film sublingual BEDTIME 04/26/24 04/26/24 Unknown History sublingual film empagliflozin 10 mg tablet 10 mg PO DAILY 04/26/24 04/26/24 04/26/24 09:00 History (Jardiance) escitalopram oxalate 10 mg tablet 10 mg PO DAILY 04/26/24 04/26/24 04/26/24 09:00 History furosemide 80 mg tablet 80 mg PO BID@0900,1700 04/26/24 04/26/24 04/26/24 09:00 History methylcellulose (laxative) 500 mg 500 mg PO BID 04/26/24 04/26/24 04/26/24 09:00 History tablet (Fiber Therapy (methylcellulose)) omeprazole 40 mg capsule,delayed 40 mg PO BID@0630,1630 04/26/24 04/26/24 04/26/24 09:00 History release tamsulosin 0.4 mg capsule 0.4 mg PO DAILY 04/26/24 04/26/24 04/26/24 09:00 History Physical Exam Vital Signs: Last Vital Signs Temp 98.0 F 04/28/24 07:35 Pulse 64 04/28/24 07:35 Resp 20 04/28/24 07:35 BP 155/73 H 04/28/24 07:35 Pulse Ox 94 04/28/24 07:35 O2 Del Method Room Air 04/28/24 07:35 BMI result Body Mass Index 30.7 Awake. Comfortable. Neck is supple. Mucosa moist. Lungs bilateral scattered rhonchi. Heart S1-S2 heard no gallop. Abdomen soft. Extremities no edema. No involuntary movements. No myoclonus. Results Lab Results 04/27/24 07:33 04/28/24 06:56 Lab results: Chemistry 04/26/24 04/27/24 04/28/24 08:28 07:33 06:56 Sodium 136 141 141 Potassium 4.8 4.8 4.5 Carbon Dioxide 18 L 17 L 21 L BUN 61 H 37 H 31 H Creatinine 4.27 H* 2.69 H 2.27 H Calcium 9.2 9.2 8.8 Hematology 04/26/24 04/27/24 08:28 07:33 WBC 11.2 H 11.9 H Hgb 12.1 L D 12.3 L Plt Count 388 D 425 H Urinalysis 04/26/24 11:18 Urine Color Yellow Urine Appearance Clear Urine pH 5.0 Ur Specific [place] <= 1.005 Urine Protein Negative Urine Glucose (UA) 250 H Urine Ketones Negative Urine Blood Negative Urine Nitrite Negative Ur Leukocyte Esterase Negative Assessment and Plan (1) CKD (chronic kidney disease): Status: Acute (2) [id number] kidney injury: Qualifiers: Acute renal failure type: unspecified Status: Acute Plan MARY JO superimposed on CKD most likely due to hypoperfusion. Renal function is improving. Keep intake more than output Continue overt nephrotoxic agents. Watch urine output. No indication for dialysis. Procedures Date of Service Date of Service: 04/28/24
[2024-04-28 11:14] LABS: Glucose, Whole Blood 119 mg/dL (60-115)
--- NOTE | 2024-04-28 13:32 | P.PNIM_ITS ---
Subjective Subjective Date of Service: 04/28/24 Interval History: leg cellulitis /abcess ?pvd on art dupplex Review of Systems leg swelling/erythema improving no fever Physical Exam 2 Vital Signs: Vital Signs: Last Vital Signs Temp 98.0 F 04/28/24 07:35 Pulse 64 04/28/24 07:35 Resp 20 04/28/24 07:35 BP 155/73 H 04/28/24 07:35 Pulse Ox 94 04/28/24 07:35 O2 Del Method Room Air 04/28/24 07:35 BMI result Body Mass Index 30.7 Appearance: Alert.? Oriented X3.? not in distress.? cvs: rrr, [id number] , no murmur res: clear to auscultation ,no rhonchii or wheezing abd: no rebound or guarding ,nt, bs present. ext pulses present , no cyanosis . skin-+ erythema, warmth imrpoving ,has wrapped leg neuro: axo3 , nonfocal. Objective Data Active Medications Acetaminophen (Acetaminophen 325 Mg Tablet) 650 mg PO Q6H PRN PRN Reason: Pain, Mild 1-3,fever,headache Last Admin: 04/27/24 08:22 Dose: 650 mg Documented By: VAN Albuterol Sulfate (Albuterol Sulfate 90 Mcg 8 Gm Inhaler) 2 puff INHALE QID PRN PRN Reason: Respiratory Distress Amlodipine Besylate (Amlodipine Besylate 5 Mg Tablet) 5 mg PO DAILY [facility]AD; Protocol Last Admin: 04/28/24 08:52 Dose: 5 mg Documented By: VAN Buprenorphine/Naloxone (Buprenorphine/Naloxone 8/2 Mg Film) 2 film SUBLINGUAL DAILY RASHAD Last Admin: 04/28/24 08:52 Dose: 2 film Documented By: VAN Buprenorphine/Naloxone (Buprenorphine/Naloxone 8/2 Mg Film) 1 film SUBLINGUAL BEDTIME RASHAD Last Admin: 04/27/24 21:49 Dose: 1 film Documented By: JEANNIE Calcium Carbonate (Calcium Carbonate 750 Mg Tab.Chew) 750 mg PO Q4H PRN PRN Reason: Heartburn Calcium Polycarbophil (Calcium Polycarbophil Tablet) 1 tab PO BID [facility] Last Admin: 04/28/24 08:52 Dose: 1 tab Documented By: VAN Dolutegravir Sodium 50 mg/ (Lamivudine 300 mg) 0 mg PO DAILY [facility] Last Admin: 04/28/24 08:51 Dose: 300 tablet Documented By: VAN Empagliflozin (Empagliflozin 10 Mg Tablet) 10 mg PO DAILY [facility] Last Admin: 04/28/24 08:52 Dose: 10 mg Documented By: VAN Escitalopram Oxalate (Escitalopram Oxalate 10 Mg Tablet) 10 mg PO DAILY [facility] Last Admin: 04/28/24 08:52 Dose: 10 mg Documented By: VAN Gabapentin (Gabapentin 600 Mg Tablet) 600 mg PO BID [facility] Last Admin: 04/28/24 08:52 Dose: 600 mg Documented By: VAN Glucose (Glucose Gel 15 Gm Gel..Gram.) 15 gm PO Q15M PRN; Protocol PRN Reason: per Hypoglycemia Standing Ord. Heparin Sodium (Porcine) (Heparin Sodium,Porcine 5,000 Unit/Ml Vial) 5,000 unit SUBCUT Q12H [facility] Last Admin: 04/28/24 01:20 Dose: 5,000 unit Documented By: JEANNIE Dextrose (D10) 250 mls @ 750 mls/hr IV Q15M PRN; Protocol PRN Reason: per Hypoglycemia Standing Ord. Cefepime HCl 1 gm/ Sodium (Chloride) 50 mls @ 100 mls/hr IV Q24H [facility] Last Infusion: 04/27/24 12:56 Dose: Infused Documented By: VAN Linezolid (Zyvox/D5w) 600 mg in 300 mls @ 300 mls/hr IV Q12H [facility] Last Infusion: 04/28/24 01:50 Dose: Infused Documented By: JEANNIE Insulin Human Lispro (Insulin Lispro 100 Unit/Ml 3 Ml Vial) 0 unit SUBCUT QIDACHS [facility]; Protocol Last Admin: 04/28/24 11:22 Dose: Not Given Documented By: ALYSIA Non-Admin Reason: No Insulin Coverage Loratadine (Loratadine 10 Mg Tablet) 10 mg PO DAILY PRN PRN Reason: Allergic Symptoms Magnesium Hydroxide (Milk Of Magnesia 30 Ml Oral.Susp) 30 ml PO DAILY PRN PRN Reason: Constipation Melatonin (Melatonin 3 Mg Tablet) 6 mg PO BEDTIME PRN PRN Reason: Insomnia Morphine Sulfate (Morphine Sulfate 2 Mg/Ml Cartridge) 2 mg IVPUSH Q4H PRN; Protocol PRN Reason: Pain, Severe (Pain Scale 7-10) Last Admin: 04/28/24 08:58 Dose: 2 mg Documented By: VAN Non-Formulary Medication (Dulaglutide [Trulicity]) 0.75 mg SUBCUT MO@0900 [facility] Omeprazole (Omeprazole 40 Mg Capsule.) 40 mg PO BID@0630,1630 [facility] Last Admin: 04/28/24 05:14 Dose: 40 mg Documented By: JEANNIE Ondansetron HCl (Ondansetron Hcl 4 Mg/2 Ml Vial) 4 mg IVPUSH Q8H PRN PRN Reason: Nausea and Vomiting Last Admin: 04/26/24 14:57 Dose: 4 mg Documented By: YONATHAN Pravastatin Sodium (Pravastatin Sodium 40 Mg Tablet) 40 mg PO BEDTIME [facility] Last Admin: 04/27/24 21:48 Dose: 40 mg Documented By: JEANNIE Sodium Chloride (0.9 % Sodium Chloride Flush 3 Ml Syringe) 3 ml IVFLUSH QSHIFT [facility] Last Admin: 04/28/24 08:52 Dose: 3 ml Documented By: VAN Tamsulosin HCl (Tamsulosin Hcl 0.4 Mg Capsule) 0.4 mg PO DAILY [facility] Last Admin: 04/28/24 08:52 Dose: 0.4 mg Documented By: VAN Trazodone HCl (Trazodone Hcl 100 Mg Tablet) 200 mg PO DAILY@1700 PRN PRN Reason: Insomnia Last Admin: 04/27/24 21:50 Dose: 200 mg Documented By: JEANNIE Comments: Labs 04/27/24 07:33 04/28/24 06:56 Labs: Laboratory Results - last 24 hr 04/27/24 04/27/24 04/28/24 15:18 21:09 06:56 Hold Purple Top SEE NOTE Anion Gap 10 L Estim Creat Clear Calc 29.3 Estimated GFR 28 POC Glucose 171 H 167 H Random Glucose 114 Calcium 8.8 04/28/24 04/28/24 07:19 11:08 Hold Purple Top Anion Gap Estim Creat Clear Calc Estimated GFR POC Glucose 102 119 H Random Glucose Calcium Microbiology Microbiology Results: Microbiology 04/27/24 12:03 Gram Stain - Final Leg Left Routine Culture - Preliminary Culture in progress. Anaerobic Culture - Preliminary Culture in progress. 04/26/24 08:50 Blood Culture - Preliminary Blood - Venous No growth after 48 hours. 04/26/24 08:28 Blood Culture - Preliminary Blood - Venous No growth after 48 hours. Assessment and Plan (1) Abscess of left leg: Status: Acute Plan 73-year-old male presents to the emergency department with left lower extremity pain, swelling and worsening wound over the past 10 days. Clinically noted to have cellulitis with purulent wound drainage.triny. Cellulitis of left lower leg- acute infection to the left lower extremities resulting in cellulitis he has associated leukocytosis. esr 85, crp 8 surgery saw the patient-s/p i&D , cultures sent by surgery blood cultures neg@48 hrs wound (leg) cultures pending continue Linezolid and continue cefepime no need for dapto only if bacterimia present. wound care and Id eval. HTN continue home medications amlodipine 5 mg p.o. daily, carvedilol 12.5 mg p.o. b.i.d., hydrochlorothiazide 12.5 mg p.o. daily( will d/c this at this time due to kidney function) HLD- continue pravastatin 40 mg p.o. at bedtime DM fs with sliding scale in order diabetic diet. triny on CKD patient's BUN 61 creatinine 4.27 this is deviating significantly from his baseline. Receiving IV fluids, 2 L ordered by this PA-C Will repeat labs in the morning. Patient is still making urine, eating and drinking. Will also put in nephro consult HIV continue home Dovato 1 tab po daily Chronic hepatitis -chronic in nature no elevations in transaminases should not be a barrier to patient's care Choric use of non prescription opiates -patient is on home buprenorphine, naloxone 1 film sublingual TID . ongoing need for hospilisation stay- right leg cellulitis/abcess ,triny-need iv antibiotics ,fluids , blood cultures and wound cultures pending ,ID and wound care eval. Quality Stroke Does the patient have a stroke diagnosis?: No VTE Prior VTE?: No VTE Risk Level:: Medical - moderate - high VTE Device Contraindication: Treatment Not Indicated VTE Drug Contraindication: N/A - Med Ordered
--- NOTE | 2024-04-28 14:59 | P.CONGS_ITS ---
<Statement entered by Josh Clark MD - 04/28/24 15:10> I have seen and evaluated the patient and agree with history, findings, assessment and plan documented by Radha Valencia PA-c. Dressing was changed with PA. patient with significant PA D including SFA and distal disease. This was noted on noninvasive testing. Would like infection to clear. We will schedule for elective outpatient angiogram upon discharge. Thank you for allowing us to assist in his care History of Present Illness Consult details Consult date: 04/28/24 <Radha Valencia PA-C - Last Filed: 04/28/24 15:11> Narrative: We were consulted for Dhiraj, a pleasant 73 yo male patient, for a left lower extremity wound/abscess and cellulitis. He presented to the ER on 04/26 with a 10d hx of LLE wound that started weeping a couple of days prior to coming to the ER. He was found to have an abscess and admitted for IV abx. He was also found to have an MARY JO on CKD. He continues to endorse significant pain of the left lower extremity. An I&D was done on the abscess. He denies any fever/chills. <Radha Valencia PA-C - Last Filed: 04/28/24 15:11> Review of Systems 2 Constitutional: Constitutional: Reports as per HPI and Denies weakness < Radha Valencia PA-C - Last Filed: 04/28/24 15:11> ENT: Reports Normal hearing present and Denies dizziness <Radha Valencia PA-C - Last Filed: 04/28/24 15:11> Cardiovascular: Cardiovascular: Reports as per HPI, Denies chest pain, Denies chest pain at rest, Denies chest pain with activity, Denies dyspnea and Denies dyspnea on exertion <Radha Valencia PA-C - Last Filed: 04/28/24 15:11> Respiratory: Respiratory: Reports as per HPI, Denies cough, Denies dyspnea and Denies dyspnea on exertion <Radha Valencia PA-C - Last Filed: 04/28/24 15:11> Gastrointestinal: Gastrointestinal: Reports as per HPI, Denies abdominal pain, Denies nausea and Denies vomiting <Radha Valencia PA-C - Last Filed: 04/28/24 15:11> Musculoskeletal: Musculoskeletal: Denies numbness <Radha Valencia PA-C - Last Filed: 04/28/24 15:11> Integumentary/Breasts: Skin/Breast: Reports as per HPI, Denies erythema and Denies wounds <Radha Valencia PA-C Last Filed: 04/28/24 15:11> Neurologic: Reports Normal hearing present, Denies dizziness, Denies numbness, Denies Sensory deficit (Neuro) and Denies weakness <Radha Valencia PA-C Last Filed: 04/28/24 15:11> Psychiatric: Psychiatric: Reports no additional psychiatric complaints < Radha Valencia PA-C Last Filed: 04/28/24 15:11> Endocrine: Endocrine: Reports no additional endocrine complaints <Radha Valencia PA-C Last Filed: 04/28/24 15:11> PMFSH Past Medical History Medical History: Medical History Duodenal ulcer Severe anemia Hyperlipemia Pancreatitis CKD (chronic kidney disease) HIV (human immunodeficiency virus infection) Chronic hepatitis Chronic use of nonprescription opiate drugs Ulcerative colitis Diabetes mellitus HTN (hypertension), benign <Radha Valencia PA-C Last Filed: 04/28/24 15:11> Family History Family history: reviewed and not pertinent <Radha Valencia PA-C Last Filed: 04/28/24 15:11> Surgical History Surgical History: Surgical History H/O exploratory laparotomy (12/20/22) Hx of cholecystectomy Hx of splenectomy Status post right hip replacement History of total left knee replacement (TKR) H/O colectomy <Radha Valencia PA-C Last Filed: 04/28/24 15:11> Social History Social History: Social History Household Members: None Housing: Apartment Do you presently have visiting nurse or other home services: Yes Alcohol intake: never Patient Tobacco Use Status: Former Tobacco user Tobacco use type: Cigarette Advance Directives Date on File: 06/07/21 service: No Current occupational status: disabled <Radha Valencia PA-C - Last Filed: 04/28/24 15:11> Meds Allergies/Adverse reactions: Allergies Allergy/AdvReac Type Severity Reaction Status Date / Time ampicillin [AMPICILLIN] Allergy Mild HIVES Verified 04/26/24 07:07 aspirin [ASPIRIN] Allergy Unknown RASH Verified 04/26/24 07:07 <Radha Valencia PA-C - Last Filed: 04/28/24 15:11> Active Medications: Current Medications Acetaminophen (Acetaminophen 325 Mg Tablet) 650 mg PO Q6H PRN PRN Reason: Pain, Mild 1-3,fever,headache Last Admin: 04/27/24 08:22 Dose: 650 mg Albuterol Sulfate (Albuterol Sulfate 90 Mcg 8 Gm Inhaler) 2 puff INHALE QID PRN PRN Reason: Respiratory Distress Amlodipine Besylate (Amlodipine Besylate 5 Mg Tablet) 5 mg PO DAILY [facility]; Protocol Last Admin: 04/28/24 08:52 Dose: 5 mg Buprenorphine/Naloxone (Buprenorphine/Naloxone 8/2 Mg Film) 2 film SUBLINGUAL DAILY [facility] Last Admin: 04/28/24 08:52 Dose: 2 film Buprenorphine/Naloxone (Buprenorphine/Naloxone 8/2 Mg Film) 1 film SUBLINGUAL BEDTIME [facility] Last Admin: 04/27/24 21:49 Dose: 1 film Calcium Carbonate (Calcium Carbonate 750 Mg Tab.Chew) 750 mg PO Q4H PRN PRN Reason: Heartburn Calcium Polycarbophil (Calcium Polycarbophil Tablet) 1 tab PO BID [facility] Last Admin: 04/28/24 08:52 Dose: 1 tab Dolutegravir Sodium 50 mg/ (Lamivudine 300 mg) 0 mg PO DAILY [facility] Last Admin: 04/28/24 08:51 Dose: 300 tablet Empagliflozin (Empagliflozin 10 Mg Tablet) 10 mg PO DAILY [facility] Last Admin: 04/28/24 08:52 Dose: 10 mg Escitalopram Oxalate (Escitalopram Oxalate 10 Mg Tablet) 10 mg PO DAILY [facility] Last Admin: 04/28/24 08:52 Dose: 10 mg Gabapentin (Gabapentin 600 Mg Tablet) 600 mg PO BID [facility] Last Admin: 04/28/24 08:52 Dose: 600 mg Glucose (Glucose Gel 15 Gm Gel..Gram.) 15 gm PO Q15M PRN; Protocol PRN Reason: per Hypoglycemia Standing Ord. Heparin Sodium (Porcine) (Heparin Sodium,Porcine 5,000 Unit/Ml Vial) 5,000 unit SUBCUT Q12H [facility] Last Admin: 04/28/24 01:20 Dose: 5,000 unit Dextrose (D10) 250 mls @ 750 mls/hr IV Q15M PRN; Protocol PRN Reason: per Hypoglycemia Standing Ord. Cefepime HCl 1 gm/ Sodium (Chloride) 50 mls @ 100 mls/hr IV Q24H [facility] Last Infusion: 04/27/24 12:56 Dose: Infused Linezolid (Zyvox/D5w) 600 mg in 300 mls @ 300 mls/hr IV Q12H [facility] Last Infusion: 04/28/24 01:50 Dose: Infused Insulin Human Lispro (Insulin Lispro 100 Unit/Ml 3 Ml Vial) 0 unit SUBCUT QIDACHS [facility]; Protocol Last Admin: 04/28/24 11:22 Dose: Not Given Loratadine (Loratadine 10 Mg Tablet) 10 mg PO DAILY PRN PRN Reason: Allergic Symptoms Magnesium Hydroxide (Milk Of Magnesia 30 Ml Oral.Susp) 30 ml PO DAILY PRN PRN Reason: Constipation Melatonin (Melatonin 3 Mg Tablet) 6 mg PO BEDTIME PRN PRN Reason: Insomnia Morphine Sulfate (Morphine Sulfate 2 Mg/Ml Cartridge) 2 mg IVPUSH Q4H PRN; Protocol PRN Reason: Pain, Severe (Pain Scale 7-10) Last Admin: 04/28/24 08:58 Dose: 2 mg Non-Formulary Medication (Dulaglutide [Trulicity]) 0.75 mg SUBCUT MO@0900 [facility] Omeprazole (Omeprazole 40 Mg Capsule.) 40 mg PO BID@0630,1630 [facility] Last Admin: 04/28/24 05:14 Dose: 40 mg Ondansetron HCl (Ondansetron Hcl 4 Mg/2 Ml Vial) 4 mg IVPUSH Q8H PRN PRN Reason: Nausea and Vomiting Last Admin: 04/26/24 14:57 Dose: 4 mg Pravastatin Sodium (Pravastatin Sodium 40 Mg Tablet) 40 mg PO BEDTIME [facility] Last Admin: 04/27/24 21:48 Dose: 40 mg Sodium Chloride (0.9 % Sodium Chloride Flush 3 Ml Syringe) 3 ml IVFLUSH QSHIFT [facility] Last Admin: 04/28/24 08:52 Dose: 3 ml Tamsulosin HCl (Tamsulosin Hcl 0.4 Mg Capsule) 0.4 mg PO DAILY [facility] Last Admin: 04/28/24 08:52 Dose: 0.4 mg Trazodone HCl (Trazodone Hcl 100 Mg Tablet) 200 mg PO DAILY@1700 PRN PRN Reason: Insomnia Last Admin: 04/27/24 21:50 Dose: 200 mg <Radha Valencia PA-C - Last Filed: 04/28/24 15:11> Home medications: Home Medications ?Medication ?Instructions ?Recorded ?Confirmed ?Last Taken ?Type albuterol sulfate 90 mcg/actuation 2 puff inhalation QID PRN 06/06/21 04/26/24 2 Days Ago History aerosol inhaler Respiratory Distress ~12/16/22 buprenorphine 8 mg-naloxone 2 mg 2 film sublingual DAILY 06/06/21 04/26/24 04/26/24 09:00 History sublingual film cetirizine 10 mg tablet 10 mg PO DAILY PRN Allergic 06/06/21 04/26/24 2 Days Ago History Symptoms ~12/16/22 gabapentin 600 mg tablet 600 mg PO BID 06/06/21 04/26/24 04/26/24 09:00 History pravastatin 40 mg tablet 40 mg PO BEDTIME 06/06/21 04/26/24 2 Days Ago History ~12/16/22 trazodone 100 mg tablet 200 mg PO DAILY@1700 PRN Insomnia 06/06/21 04/26/24 2 Days Ago History ~12/16/22 amlodipine 5 mg tablet 5 mg PO DAILY 12/18/22 04/26/24 04/26/24 09:00 History dolutegravir 50 mg-lamivudine 300 1 tab PO DAILY 12/18/22 04/26/24 04/26/24 09:00 History mg tablet (Dovato) dulaglutide 0.75 mg/0.5 mL 0.75 mg subcut MO@0900 12/18/22 04/26/24 04/21/24 History subcutaneous pen injector (Trulicity) acetaminophen 500 mg tablet 1,000 mg PO Q4H PRN Pain 04/26/24 04/26/24 Unknown History buprenorphine 8 mg-naloxone 2 mg 1 film sublingual BEDTIME 04/26/24 04/26/24 Unknown History sublingual film empagliflozin 10 mg tablet 10 mg PO DAILY 04/26/24 04/26/24 04/26/24 09:00 History (Jardiance) escitalopram oxalate 10 mg tablet 10 mg PO DAILY 04/26/24 04/26/24 04/26/24 09:00 History furosemide 80 mg tablet 80 mg PO BID@0900,1700 04/26/24 04/26/24 04/26/24 09:00 History methylcellulose (laxative) 500 mg 500 mg PO BID 04/26/24 04/26/24 04/26/24 09:00 History tablet (Fiber Therapy (methylcellulose)) omeprazole 40 mg capsule,delayed 40 mg PO BID@0630,1630 04/26/24 04/26/24 04/26/24 09:00 History release tamsulosin 0.4 mg capsule 0.4 mg PO DAILY 04/26/24 04/26/24 04/26/24 09:00 History <CLAIRE Llamas Last Filed: 04/28/24 15:11> Physical Exam 2 Vital Signs: Vital Signs: Last Vital Signs Temp 98.0 F 04/28/24 07:35 Pulse 64 04/28/24 07:35 Resp 20 04/28/24 07:35 BP 155/73 H 04/28/24 07:35 Pulse Ox 94 04/28/24 07:35 O2 Del Method Room Air 04/28/24 07:35 BMI result Body Mass Index 30.7 <CLAIRE Llamas Last Filed: 04/28/24 15:11> Const: General: comfortable and no acute distress <CLAIRE Llamas Last Filed: 04/28/24 15:11> Orientation/consciousness: patient oriented x3 <CLAIRE Llamas Last Filed: 04/28/24 15:11> HEENT: Ears: hearing grossly normal bilaterally <CLAIRE Llamas Last Filed: 04/28/24 15:11> Resp: Effort & Inspection: normal respiratory effort and able to speak in complete sentences <CLAIRE Llamas Last Filed: 04/28/24 15:11> Auscultation: clear to auscultation bilaterally <CLAIRE Llamas Last Filed: 04/28/24 15:11> Cardio: Rate: regular rate <CLAIRE Llamas Last Filed: 04/28/24 15:11> Rhythm: regular rhythm <Radha Valencia PA-C - Last Filed: 04/28/24 15:11> Heart sounds: S1 normal heart sound present and S2 normal heart sound present <Radha Valencia PA-C - Last Filed: 04/28/24 15:11> Bruits: no abdominal aortic bruits, no carotid bruits, no femoral bruits and no renal bruits <Radha Valencia PA-C - Last Filed: 04/28/24 15:11> GI: Palpation (GI): No Abdominal aortic bruit present <CLAIRE Llamas Last Filed: 04/28/24 15:11> Neuro: General: patient oriented x3 <CLAIRE Llamas Last Filed: 04/28/24 15:11> Cranial nerves: Yes Normal hearing present <CLAIRE Llamas Last Filed: 04/28/24 15:11> Sensory Exam: No Sensory deficit (Neuro) <CLAIRE Llamas Last Filed: 04/28/24 15:11> Extrem: Other: LLE: discoloration noted from below the knee to the ankle. NO palpable pulses felt. * Wound - surrounding erythema. Appx 4cm deep. Very painful to palpation. Dressing is drainage packing, 4x4, abd pad, Kerlix wrap <CLAIRE Llamas Last Filed: 04/28/24 15:11> Results Labs Result diagrams: 04/27/24 07:33 04/28/24 06:56 <CLAIRE Llamas Last Filed: 04/28/24 15:11> Labs: Abnormal lab results 04/27/24 04/27/24 04/28/24 Range/Units 15:18 21:09 06:56 Chloride 115 H (96-108) mmol/L Carbon Dioxide 21 L (22-29) mmol/L Anion Gap 10 L (12-20) BUN 31 H (9-16) mg/dL Creatinine 2.27 H (0.5-1.4) mg/dL POC Glucose 171 H 167 H (60-115) mg/dL 04/28/24 Range/Units 11:08 Chloride (96-108) mmol/L Carbon Dioxide (22-29) mmol/L Anion Gap (12-20) BUN (9-16) mg/dL Creatinine (0.5-1.4) mg/dL POC Glucose 119 H (60-115) mg/dL BMP 04/28/24 06:56 Sodium 141 Potassium 4.5 Chloride 115 H Carbon Dioxide 21 L BUN 31 H Creatinine 2.27 H Calcium 8.8 Urine 04/26/24 Range/Units 11:18 Urine Color Yellow Urine Appearance Clear Urine pH 5.0 (5.0-9.0) Ur Specific Davis <= 1.005 (1.005-1.025) Urine Protein Negative (Neg-Trace) mg/dL Urine Glucose (UA) 250 H (Negative) mg/dL All other labs normal. <Radha Valencia PA-C - Last Filed: 04/28/24 15:11> Assessment and Plan (1) Abscess of left leg: Status: Acute <Radha Valencia PA-C - Last Filed: 04/28/24 15:11> We were consulted for Dhiraj due to an ongoing, nonhealing wound of the left lower extremity. An abscess was found and I&D performed yesterday. The pt continues to endorse pain at the site/wound. We have reviewed his imaging. We were unable to find palpable pulses in the left foot. There are no acute vascular surgery interventions at this time. We suggest continuing with IV Abx as well as daily dressing changes. We suggest he follow up with us outpatient for further evaluation and treatment. Thank you for the consult. If there are any questions or concerns, please do not hesitate to reach out to us. <Radha Valencia PA-C - Last Filed: 04/28/24 15:11> Procedures Date of Service Date of Service: 04/28/24 <Radha Valencia PA-C - Last Filed: 04/28/24 15:11> 04/28/24 <Josh Clark MD - Last Filed: 04/28/24 15:09>
[2024-04-28] MEDS: cefEPime HCl 1 GM in 0.9 % Sodium Chloride 50 ML IV (15:48)
--- NOTE | 2024-04-28 16:08 | MHC.CM.PN ---
EMR REVIEWED, PT W/CELLULITIS/WOUND OF LLE, PT REMAINS ON IV ABX, WOUND CULTURES PENDING, CM WILL CONT TO FOLLOW DC NEEDS.
[2024-04-28 16:21] LABS: Glucose, Whole Blood 133 mg/dL (60-115)
[2024-04-28] MEDS: Insulin Lispro 100 UNIT/ML 3 ML VIAL SUBCUT (20:01)
[2024-04-28 20:02] LABS: Glucose, Whole Blood 186 mg/dL (60-115)
[2024-04-28] MEDS: Buprenorphine/Naloxone 8/2 mg FILM 1 FILM SUBLINGUAL (20:02)
[2024-04-28] MEDS: Pravastatin Sodium 40 MG TABLET PO (20:02)
[2024-04-28] MEDS: Acetaminophen 325 MG TABLET 650 MG PO (23:41)
[2024-04-28] MEDS: traZODone HCL 100 MG TABLET 200 MG PO (23:44)
[2024-04-29] MEDS: Linezolid/D5W 600 MG/300 ML PIGGYBACK 300 MG IV (01:34)
[2024-04-29] MEDS: Morphine Sulfate 2 MG/ML CARTRIDGE IVPUSH ×5 (01:34→21:40)
[2024-04-29 03:23] VITALS: BP 172/81; PULSE 61; RESP 20; TEMP 37.1; O2SAT 93
[2024-04-29] MEDS: Omeprazole 40 MG CAPSULE.DR PO ×2 (06:16→17:35)
[2024-04-29 07:14] VITALS: BP 158/78; PULSE 58; RESP 16; TEMP 36.1; O2SAT 93
[2024-04-29 07:30] LABS: Glucose, Whole Blood 117 mg/dL (60-115)
--- NOTE | 2024-04-29 08:45 | PM.PNGS ---
Subjective Subjective Date of Service: 04/29/24 Interval history: Complains of pressure of left lower leg at abscess site. No new complaints. Physical Exam Vital Signs: Vital Signs: Last Vital Signs Temp 96.9 F 04/29/24 07:14 Pulse 58 04/29/24 07:14 Resp 16 04/29/24 07:14 BP 158/78 H 04/29/24 07:14 Pulse Ox 93 04/29/24 07:14 O2 Del Method Room Air 04/29/24 07:14 BMI result Body Mass Index 30.7 Const: General: comfortable, no acute distress and alert Orientation/consciousness: patient oriented x3 Resp: Effort & Inspection: normal respiratory effort Neuro: General: patient oriented x3 and moves all extremities Extrem: Other: left lower leg with improving edema, erythema; I&D side without signficant drainage, wound cavity with granulation tissue at base, no necrosis noted, no further fluctuance appreciated Objective Data Active Medications Acetaminophen (Acetaminophen 325 Mg Tablet) 650 mg PO Q6H PRN PRN Reason: Pain, Mild 1-3,fever,headache Last Admin: 04/28/24 23:41 Dose: 650 mg Documented By: FESTUS Albuterol Sulfate (Albuterol Sulfate 90 Mcg 8 Gm Inhaler) 2 puff INHALE QID PRN PRN Reason: Respiratory Distress Amlodipine Besylate (Amlodipine Besylate 5 Mg Tablet) 5 mg PO DAILY ON LICENSE OF [facility]; Protocol Last Admin: 04/28/24 08:52 Dose: 5 mg Documented By: VAN Buprenorphine/Naloxone (Buprenorphine/Naloxone 8/2 Mg Film) 2 film SUBLINGUAL DAILY ON LICENSE OF [facility] Last Admin: 04/28/24 08:52 Dose: 2 film Documented By: VAN Buprenorphine/Naloxone (Buprenorphine/Naloxone 8/2 Mg Film) 1 film SUBLINGUAL BEDTIME ON LICENSE OF [facility] Last Admin: 04/28/24 20:02 Dose: 1 film Documented By: FESTUS Calcium Carbonate (Calcium Carbonate 750 Mg Tab.Chew) 750 mg PO Q4H PRN PRN Reason: Heartburn Calcium Polycarbophil (Calcium Polycarbophil Tablet) 1 tab PO BID ON LICENSE OF [facility] Last Admin: 04/28/24 20:02 Dose: 1 tab Documented By: FESTUS Dolutegravir Sodium 50 mg/ (Lamivudine 300 mg) 0 mg PO DAILY ON LICENSE OF [facility] Last Admin: 04/28/24 08:51 Dose: 300 tablet Documented By: VAN Empagliflozin (Empagliflozin 10 Mg Tablet) 10 mg PO DAILY ON LICENSE OF [facility] Last Admin: 04/28/24 08:52 Dose: 10 mg Documented By: VAN Escitalopram Oxalate (Escitalopram Oxalate 10 Mg Tablet) 10 mg PO DAILY ON LICENSE OF [facility] Last Admin: 04/28/24 08:52 Dose: 10 mg Documented By: VAN Gabapentin (Gabapentin 600 Mg Tablet) 600 mg PO BID ON LICENSE OF [facility] Last Admin: 04/28/24 20:02 Dose: 600 mg Documented By: FESTUS Glucose (Glucose Gel 15 Gm Gel..Gram.) 15 gm PO Q15M PRN; Protocol PRN Reason: per Hypoglycemia Standing Ord. Heparin Sodium (Porcine) (Heparin Sodium,Porcine 5,000 Unit/Ml Vial) 5,000 unit SUBCUT Q12H ON LICENSE OF [facility] Last Admin: 04/28/24 23:41 Dose: 5,000 unit Documented By: FESTUS Dextrose (D10) 250 mls @ 750 mls/hr IV Q15M PRN; Protocol PRN Reason: per Hypoglycemia Standing Ord. Cefepime HCl 1 gm/ Sodium (Chloride) 50 mls @ 100 mls/hr IV Q24H ON LICENSE OF [facility] Last Infusion: 04/28/24 17:23 Dose: Infused Documented By: VAN Insulin Human Lispro (Insulin Lispro 100 Unit/Ml 3 Ml Vial) 0 unit SUBCUT QIDACHS ON LICENSE OF [facility]; Protocol Last Admin: 04/29/24 07:44 Dose: Not Given Documented By: MARY Non-Admin Reason: No Insulin Coverage Linezolid (Linezolid 600 Mg Tablet) 600 mg PO Q12H ON LICENSE OF [facility] Loratadine (Loratadine 10 Mg Tablet) 10 mg PO DAILY PRN PRN Reason: Allergic Symptoms Magnesium Hydroxide (Milk Of Magnesia 30 Ml Oral.Susp) 30 ml PO DAILY PRN PRN Reason: Constipation Melatonin (Melatonin 3 Mg Tablet) 6 mg PO BEDTIME PRN PRN Reason: Insomnia Morphine Sulfate (Morphine Sulfate 2 Mg/Ml Cartridge) 2 mg IVPUSH Q4H PRN; Protocol PRN Reason: Pain, Severe (Pain Scale 7-10) Last Admin: 04/29/24 06:19 Dose: 2 mg Documented By: FESTUS Non-Formulary Medication (Dulaglutide [Trulicity]) 0.75 mg SUBCUT MO@0900 ON LICENSE OF [facility] Omeprazole (Omeprazole 40 Mg Capsule.Dr) 40 mg PO BID@0630,1630 ON LICENSE OF [facility] Last Admin: 04/29/24 06:16 Dose: 40 mg Documented By: FESTUS Ondansetron HCl (Ondansetron Hcl 4 Mg/2 Ml Vial) 4 mg IVPUSH Q8H PRN PRN Reason: Nausea and Vomiting Last Admin: 04/26/24 14:57 Dose: 4 mg Documented By: YONATHAN Pravastatin Sodium (Pravastatin Sodium 40 Mg Tablet) 40 mg PO BEDTIME ON LICENSE OF [facility] Last Admin: 04/28/24 20:02 Dose: 40 mg Documented By: FESTUS Sodium Chloride (0.9 % Sodium Chloride Flush 3 Ml Syringe) 3 ml IVFLUSH QSHIFT ON LICENSE OF [facility] Last Admin: 04/28/24 20:02 Dose: 3 ml Documented By: FESTUS Tamsulosin HCl (Tamsulosin Hcl 0.4 Mg Capsule) 0.4 mg PO DAILY ON LICENSE OF [facility] Last Admin: 04/28/24 08:52 Dose: 0.4 mg Documented By: VAN Trazodone HCl (Trazodone Hcl 100 Mg Tablet) 200 mg PO DAILY@1700 PRN PRN Reason: Insomnia Last Admin: 04/28/24 23:44 Dose: 200 mg Documented By: FESTUS Labs 04/27/24 07:33 04/28/24 06:56 Labs: Laboratory Results - last 24 hr 04/28/24 04/28/24 04/28/24 11:08 16:09 19:08 POC Glucose 119 H 133 H 186 H 04/29/24 07:18 POC Glucose 117 H Microbiology Microbiology Results: Microbiology 04/27/24 12:03 Gram Stain - Final Leg Left Routine Culture - Preliminary Gram negative tesha Anaerobic Culture - Preliminary Culture in progress. 04/26/24 08:50 Blood Culture - Preliminary Blood - Venous No growth after 48 hours. 04/26/24 08:28 Blood Culture - Preliminary Blood - Venous No growth after 48 hours. Procedures Date of Service Date of Service: 04/29/24 Progress Note: A&P Assessment and plan (1) Abscess of left leg: Status: Acute (2) Cellulitis of left lower extremity from knee to ankle: Status: Acute Plan Dressing changed at beside this morning; cellulitis improving, I&D site remains open, scant drainage, no further abscess appreciated. Cont daily dressing changes with wet to dry saline soaked fluff followed by dry fluffs and kerlix roll. Cont left leg elevation. Will follow up with vascular surgery for further treatment of PAD, wound care. Time Spent With Patient Time: Total time managing care of this patient today ____ minutes. Quality Stroke Does the patient have a stroke diagnosis?: No VTE Prior VTE?: No VTE Risk Level:: Medical - moderate - high VTE Device Contraindication: Treatment Not Indicated VTE Drug Contraindication: N/A - Med Ordered
--- NOTE | 2024-04-29 08:51 | HO.VASCPN ---
Subjective Subjective Date of Service: 04/29/24 Interval history: Dhiraj is doing well this morning. He is eating and drinking well. He continues to endorse pain at the site of the wound on his left lower extremity. He denies any new complaints. Physical Exam Vital Signs: Vital Signs: Last Vital Signs Temp 96.9 F 04/29/24 07:14 Pulse 58 04/29/24 07:14 Resp 16 04/29/24 07:14 BP 158/78 H 04/29/24 07:14 Pulse Ox 93 04/29/24 07:14 O2 Del Method Room Air 04/29/24 07:14 BMI result Body Mass Index 30.7 Const: General: comfortable and no acute distress Orientation/consciousness: patient oriented x3 HEENT: Ears: hearing grossly normal bilaterally Resp: Effort & Inspection: normal respiratory effort and able to speak in complete sentences Auscultation: clear to auscultation bilaterally Cardio: Rate: regular rate Rhythm: regular rhythm Heart sounds: S1 normal heart sound present and S2 normal heart sound present Bruits: no abdominal aortic bruits, no carotid bruits, no femoral bruits and no renal bruits GI: Palpation (GI): No Abdominal aortic bruit present Neuro: General: patient oriented x3 Cranial nerves: Yes CN's II-XII intact bilaterally Extrem: Other: Left lower extremity: with improving edema, erythema; I&D side without significant drainage, wound cavity with granulation tissue at base, no necrosis noted, no further fluctuance appreciated. Dressing taken down with Gen Sx PA. Progress Note: A&P Assessment and plan (1) Abscess of left leg: Status: Acute Assessment and Plan: Dhiraj remains stable from a vascular surgery standpoint. I discussed with him today that we would like to follow up with him outpatient for further evaluation and treatment for PAD. The Gen Sx PA and myself changed the packing and dressing this morning. It looks a little better. We will follow up with him outpatient. If there are any questions or concerns, please do not hesitate to reach out to us. Time Spent With Patient Time: Total time managing care of this patient today ____ minutes. Procedures Date of Service Date of Service: 04/29/24 Quality Stroke Does the patient have a stroke diagnosis?: No VTE Prior VTE?: No VTE Risk Level:: Medical - moderate - high VTE Device Contraindication: Treatment Not Indicated VTE Drug Contraindication: N/A - Med Ordered
[2024-04-29] MEDS: Tamsulosin HCL 0.4 MG CAPSULE PO (08:59)
[2024-04-29] MEDS: Escitalopram Oxalate 10 MG TABLET PO (08:59)
[2024-04-29] MEDS: Empagliflozin 10 MG TABLET PO (08:59)
[2024-04-29] MEDS: Gabapentin 600 MG TABLET PO ×2 (08:59→21:39)
[2024-04-29] MEDS: amLODIPine Besylate 5 MG TABLET PO (08:59)
[2024-04-29] MEDS: calcium polycarbophiL TABLET 1 TAB PO ×2 (08:59→21:39)
[2024-04-29] MEDS: LAMIVUDINE 300 MG PO (09:00)
[2024-04-29] MEDS: Buprenorphine/Naloxone 8/2 mg FILM 2 FILM SUBLINGUAL (09:00)
[2024-04-29] MEDS: 0.9 % Sodium Chloride Flush 3 ML SYRINGE IVFLUSH ×3 (09:00→21:40)
[2024-04-29] MEDS: DOLUTEGRAVIR 50 MG PO (09:00)
[2024-04-29] MEDS: Acetaminophen 325 MG TABLET 650 MG PO (09:06)
[2024-04-29 09:10] LABS: Hematocrit 37.8 % (42.0-52.0); Hemoglobin 12.6 g/dl (14.0-18.0); Mean Corpuscular HGB Conc 33.3 g/dl (31.0-36.0); Mean Corpuscular Hemoglobin 34.1 pg (27.0-33.0); Mean Corpuscular Volume 102.2 fL (80.0-98.0); Mean Platelet Volume 9.5 fL (9.4-12.4); NRBC Pct Auto 0.5 /100WBC (0.0-0.2); Platelet Count 387 X10*3/uL (160-400); Red Cell Distribution Width 14.1 % (11.0-16.0); White Blood Count 10.4 X10*3/uL (4.8-10.8)
[2024-04-29 09:31] LABS: Anion Gap 11 (12-20); Blood Urea Nitrogen 30 mg/dL (9-16); Calcium 8.8 mg/dL (8.4-10.2); Carbon Dioxide 18 mmol/L (22-29); Chloride 115 mmol/L (96-108); Creatinine Clr Calc Pharmacy 33.8; Estimated Glomerular Filt Rate 33; Glucose Random 200 mg/dL (60-115); Potassium 4.7 mmol/L (3.3-5.1); Sodium 139 mmol/L (135-145)
--- NOTE | 2024-04-29 10:28 | HO.PM.IMPN ---
Subjective Subjective Date of Service: 04/29/24 Interval History: seen and examined reports pain at site of wound otherwise no complaints Review of Systems Negative except HPI/interval history. Physical Exam Vital Signs: Vital Signs: Last Vital Signs Temp 96.9 F 04/29/24 07:14 Pulse 58 04/29/24 07:14 Resp 16 04/29/24 07:14 BP 158/78 H 04/29/24 07:14 Pulse Ox 93 04/29/24 07:14 O2 Del Method Room Air 04/29/24 07:14 BMI result Body Mass Index 30.7 Const: Other: General - no acute distress, appears comfortable Cardiovascular - regular rate and rhythm, S1-S2 Lungs - normal respiratory effort, clear to auscultation bilaterally, no wheezing Abdomen - soft, nontender, no rebound or guarding Extremities - dressing in placed - changed by surg this AM Neuro - awake and alert, no focal deficits Objective Data Active Medications Acetaminophen (Acetaminophen 325 Mg Tablet) 650 mg PO Q6H PRN PRN Reason: Pain, Mild 1-3,fever,headache Last Admin: 04/29/24 09:06 Dose: 650 mg Documented By: MARY Albuterol Sulfate (Albuterol Sulfate 90 Mcg 8 Gm Inhaler) 2 puff INHALE QID PRN PRN Reason: Respiratory Distress Amlodipine Besylate (Amlodipine Besylate 5 Mg Tablet) 5 mg PO DAILY [facility]; Protocol Last Admin: 04/29/24 08:59 Dose: 5 mg Documented By: MARY Buprenorphine/Naloxone (Buprenorphine/Naloxone 8/2 Mg Film) 2 film SUBLINGUAL DAILY [facility] Last Admin: 04/29/24 09:00 Dose: 2 film Documented By: MARY Buprenorphine/Naloxone (Buprenorphine/Naloxone 8/2 Mg Film) 1 film SUBLINGUAL BEDTIME [facility] Last Admin: 04/28/24 20:02 Dose: 1 film Documented By: FESTUS Calcium Carbonate (Calcium Carbonate 750 Mg Tab.Chew) 750 mg PO Q4H PRN PRN Reason: Heartburn Calcium Polycarbophil (Calcium Polycarbophil Tablet) 1 tab PO BID [facility] Last Admin: 04/29/24 08:59 Dose: 1 tab Documented By: MARY Dolutegravir Sodium 50 mg/ (Lamivudine 300 mg) 0 mg PO DAILY [facility] Last Admin: 04/29/24 09:00 Dose: 300 tablet Documented By: MARY Empagliflozin (Empagliflozin 10 Mg Tablet) 10 mg PO DAILY [facility] Last Admin: 04/29/24 08:59 Dose: 10 mg Documented By: MARY Escitalopram Oxalate (Escitalopram Oxalate 10 Mg Tablet) 10 mg PO DAILY [facility] Last Admin: 04/29/24 08:59 Dose: 10 mg Documented By: MARY Gabapentin (Gabapentin 600 Mg Tablet) 600 mg PO BID [facility] Last Admin: 04/29/24 08:59 Dose: 600 mg Documented By: MARY Glucose (Glucose Gel 15 Gm Gel..Gram.) 15 gm PO Q15M PRN; Protocol PRN Reason: per Hypoglycemia Standing Ord. Heparin Sodium (Porcine) (Heparin Sodium,Porcine 5,000 Unit/Ml Vial) 5,000 unit SUBCUT Q12H [facility] Last Admin: 04/28/24 23:41 Dose: 5,000 unit Documented By: FESTUS Dextrose (D10) 250 mls @ 750 mls/hr IV Q15M PRN; Protocol PRN Reason: per Hypoglycemia Standing Ord. Cefepime HCl 1 gm/ Sodium (Chloride) 50 mls @ 100 mls/hr IV Q24H [facility] Last Infusion: 04/28/24 17:23 Dose: Infused Documented By: VAN Insulin Human Lispro (Insulin Lispro 100 Unit/Ml 3 Ml Vial) 0 unit SUBCUT QIDACHS [facility]; Protocol Last Admin: 04/29/24 07:44 Dose: Not Given Documented By: MARY Non-Admin Reason: No Insulin Coverage Linezolid (Linezolid 600 Mg Tablet) 600 mg PO Q12H [facility] Loratadine (Loratadine 10 Mg Tablet) 10 mg PO DAILY PRN PRN Reason: Allergic Symptoms Magnesium Hydroxide (Milk Of Magnesia 30 Ml Oral.Susp) 30 ml PO DAILY PRN PRN Reason: Constipation Melatonin (Melatonin 3 Mg Tablet) 6 mg PO BEDTIME PRN PRN Reason: Insomnia Morphine Sulfate (Morphine Sulfate 2 Mg/Ml Cartridge) 2 mg IVPUSH Q4H PRN; Protocol PRN Reason: Pain, Severe (Pain Scale 7-10) Last Admin: 04/29/24 06:19 Dose: 2 mg Documented By: FESTUS Non-Formulary Medication (Dulaglutide [Trulicity]) 0.75 mg SUBCUT MO@0900 [facility] Omeprazole (Omeprazole 40 Mg Capsule.) 40 mg PO BID@0630,1630 [facility] Last Admin: 04/29/24 06:16 Dose: 40 mg Documented By: FESTUS Ondansetron HCl (Ondansetron Hcl 4 Mg/2 Ml Vial) 4 mg IVPUSH Q8H PRN PRN Reason: Nausea and Vomiting Last Admin: 04/26/24 14:57 Dose: 4 mg Documented By: YONATHAN Pravastatin Sodium (Pravastatin Sodium 40 Mg Tablet) 40 mg PO BEDTIME [facility] Last Admin: 04/28/24 20:02 Dose: 40 mg Documented By: FESTUS Sodium Chloride (0.9 % Sodium Chloride Flush 3 Ml Syringe) 3 ml IVFLUSH QSHIFT [facility] Last Admin: 04/29/24 09:00 Dose: 3 ml Documented By: MARY Tamsulosin HCl (Tamsulosin Hcl 0.4 Mg Capsule) 0.4 mg PO DAILY [facility] Last Admin: 04/29/24 08:59 Dose: 0.4 mg Documented By: MARY Trazodone HCl (Trazodone Hcl 100 Mg Tablet) 200 mg PO DAILY@1700 PRN PRN Reason: Insomnia Last Admin: 04/28/24 23:44 Dose: 200 mg Documented By: FESTUS Labs 04/29/24 08:51 04/29/24 08:51 Labs: Laboratory Results - last 24 hr 04/28/24 04/28/24 04/28/24 11:08 16:09 19:08 MCV MCH MCHC RDW Plt Count MPV Absolute Nucleated RBC Nucleated RBC % (auto) Anion Gap Estim Creat Clear Calc Estimated GFR POC Glucose 119 H 133 H 186 H Random Glucose Calcium 04/29/24 04/29/24 07:18 08:51 MCV 102.2 H MCH 34.1 H MCHC 33.3 RDW 14.1 Plt Count 387 MPV 9.5 Absolute Nucleated RBC 0.050 H Nucleated RBC % (auto) 0.5 H Anion Gap 11 L Estim Creat Clear Calc 33.8 Estimated GFR 33 POC Glucose 117 H Random Glucose 200 H Calcium 8.8 Microbiology Microbiology Results: Microbiology 04/27/24 12:03 Gram Stain - Final Leg Left Routine Culture - Preliminary Gram negative tesha Anaerobic Culture - Preliminary Culture in progress. 04/26/24 08:50 Blood Culture - Preliminary Blood - Venous No growth after 48 hours. 04/26/24 08:28 Blood Culture - Preliminary Blood - Venous No growth after 48 hours. Assessment and Plan (1) Abscess of left leg: Status: Acute Plan Patient is a 73-year-old male with a past medical history of diabetes, hypertension, CKD, hyperlipidemia, HIV on HAART who presented to the emergency room with low were left extremity pain, swelling and wound. He was found to have cellulitis with purulent drainage. 1. Acute cellulitis and abscess of left lower extremity Status post I and by General surgery, cultures growing Gram-negative rods ID consulted with recommendations of cefepime and Zyvox Continue wound care per general surgeon Follow final culture data 2. MARY JO on CKD, likely stage III Due to acute infection Slowly improving Nephrology input appreciated 3. HIV on HAART Continue baseline meds 4. Diabetes mellitus Continue baseline meds 6. Chronic opiate dependence Continue Suboxone Full code DVT prophylaxis, heparin Reason for ongoing hospitalization: Slowly improving cellulitis and abscess still requiring IV medications, MARY JO on CKD slowly improving - anticipate discharge in the next 1-2 days Quality Stroke Does the patient have a stroke diagnosis?: No VTE Prior VTE?: No VTE Risk Level:: Medical - moderate - high VTE Device Contraindication: Treatment Not Indicated VTE Drug Contraindication: N/A - Med Ordered
--- NOTE | 2024-04-29 10:36 | P.PNNP_ITS ---
Subjective Subjective Date of Service: 04/29/24 Interval history: Events noted Physical Exam 2 Vital Signs: Vital Signs: Last Vital Signs Temp 96.9 F 04/29/24 07:14 Pulse 58 04/29/24 07:14 Resp 16 04/29/24 07:14 BP 158/78 H 04/29/24 07:14 Pulse Ox 93 04/29/24 07:14 O2 Del Method Room Air 04/29/24 07:14 BMI result Body Mass Index 30.7 Const: Other: General - no acute distress, appears comfortable Cardiovascular - regular rate and rhythm, S1-S2 Lungs - normal respiratory effort, clear to auscultation bilaterally, no wheezing Abdomen - soft, nontender, no rebound or guarding Extremities - dressing in placed - changed by surg this AM Neuro - awake and alert, no focal deficits Objective Data Labs 04/29/24 08:51 04/29/24 08:51 Labs: Laboratory Results - last 24 hr 04/28/24 04/28/24 04/28/24 11:08 16:09 19:08 WBC RBC Hgb Hct MCV MCH MCHC RDW Plt Count MPV Absolute Nucleated RBC Nucleated RBC % (auto) Sodium Potassium Chloride Carbon Dioxide Anion Gap BUN Creatinine Estim Creat Clear Calc Estimated GFR POC Glucose 119 H 133 H 186 H Random Glucose Calcium 04/29/24 04/29/24 07:18 08:51 WBC 10.4 RBC 3.70 L Hgb 12.6 L Hct 37.8 L MCV 102.2 H MCH 34.1 H MCHC 33.3 RDW 14.1 Plt Count 387 MPV 9.5 Absolute Nucleated RBC 0.050 H Nucleated RBC % (auto) 0.5 H Sodium 139 Potassium 4.7 Chloride 115 H Carbon Dioxide 18 L Anion Gap 11 L BUN 30 H Creatinine 1.97 H Estim Creat Clear Calc 33.8 Estimated GFR 33 POC Glucose 117 H Random Glucose 200 H Calcium 8.8 Microbiology Microbiology Results: Microbiology 04/27/24 12:03 Leg Left Gram Stain - Final 04/27/24 12:03 Leg Left Routine Culture - Preliminary Gram negative tesha 04/27/24 12:03 Leg Left Anaerobic Culture - Preliminary Culture in progress. 04/26/24 08:50 Blood - Venous Blood Culture - Preliminary No growth after 48 hours. 04/26/24 08:28 Blood - Venous Blood Culture - Preliminary No growth after 48 hours. Procedures Date of Service Date of Service: 04/29/24 Assessment & Plan Assessment and plan (1) CKD (chronic kidney disease): Status: Acute (2) [id number] kidney injury: Status: Acute Plan MARY JO superimposed on CKD most likely due to hypoperfusion. Renal function is improving. Keep intake more than output Continue to avoid nephrotoxic agents. Watch urine output. No indication for dialysis. Time Spent With Patient Time: Total time managing care of this patient today ____ minutes. Progress Note: Quality Stroke Does the patient have a stroke diagnosis?: No
[2024-04-29 11:25] LABS: Glucose, Whole Blood 120 mg/dL (60-115)
[2024-04-29] MEDS: cefEPime HCl 1 GM in 0.9 % Sodium Chloride 50 ML IV (12:59)
[2024-04-29] MEDS: Heparin Sodium,Porcine 5,000 UNIT/ML VIAL 5000 UNIT SUBCUT (13:00)
[2024-04-29] MEDS: Linezolid 600 MG TABLET PO (14:04)
--- NOTE | 2024-04-29 14:43 | HO.SKINPHOTO ---
Location: Category: Stage: Length: Width: Depth: cm Location: Category: Stage: Length: Width: Depth: cm Location:rt hip stage 2 Category: Stage: Length: Width: Depth: cm Location: Category: Stage: Length: Width: Depth: cm Location: Category: Stage: Length: Width: Depth: cm Location: Category: Stage: Length: Width: Depth: cm
--- NOTE | 2024-04-29 14:45 | HO.SKINPHOTO ---
Location:coccyx DTI Category: Stage: Length: Width: Depth: cm Location: Category: Stage: Length: Width: Depth: cm Location: Category: Stage: Length: Width: Depth: cm Location: Category: Stage: Length: Width: Depth: cm Location: Category: Stage: Length: Width: Depth: cm Location: Category: Stage: Length: Width: Depth: cm
--- NOTE | 2024-04-29 14:46 | HO.SKINPHOTO ---
Location:lt heel unstagable Category: Stage: Length: Width: Depth: cm Location: Category: Stage: Length: Width: Depth: cm Location: Category: Stage: Length: Width: Depth: cm Location: Category: Stage: Length: Width: Depth: cm Location: Category: Stage: Length: Width: Depth: cm Location: Category: Stage: Length: Width: Depth: cm
--- NOTE | 2024-04-29 14:47 | HO.SKINPHOTO ---
Location:rt heel unstagable Category: Stage: Length: Width: Depth: cm Location: Category: Stage: Length: Width: Depth: cm Location: Category: Stage: Length: Width: Depth: cm Location: Category: Stage: Length: Width: Depth: cm Location: Category: Stage: Length: Width: Depth: cm Location: Category: Stage: Length: Width: Depth: cm
[2024-04-29 15:51] VITALS: BP 140/68; PULSE 62; RESP 16; TEMP 36.6; O2SAT 94
[2024-04-29 16:07] LABS: Glucose, Whole Blood 117 mg/dL (60-115)
[2024-04-29 19:24] VITALS: BP 170/80; PULSE 59; RESP 17; TEMP 36.1; O2SAT 97
[2024-04-29 19:51] LABS: Glucose, Whole Blood 167 mg/dL (60-115)
[2024-04-29] MEDS: traZODone HCL 100 MG TABLET 200 MG PO (21:39)
[2024-04-29] MEDS: Pravastatin Sodium 40 MG TABLET PO (21:39)
[2024-04-29] MEDS: Insulin Lispro 100 UNIT/ML 3 ML VIAL SUBCUT (21:39)
[2024-04-29] MEDS: Buprenorphine/Naloxone 8/2 mg FILM 1 FILM SUBLINGUAL (21:40)
[2024-04-30] MEDS: Heparin Sodium,Porcine 5,000 UNIT/ML VIAL 5000 UNIT SUBCUT ×2 (01:55→12:43)
[2024-04-30] MEDS: Linezolid 600 MG TABLET PO ×2 (02:03→15:06)
[2024-04-30] MEDS: Morphine Sulfate 2 MG/ML CARTRIDGE IVPUSH ×3 (02:04→12:43)
[2024-04-30 04:00] VITALS: BP 131/58; PULSE 65; RESP 20; TEMP 36.4; O2SAT 96
[2024-04-30 07:16] LABS: Glucose, Whole Blood 90 mg/dL (60-115)
[2024-04-30] MEDS: Omeprazole 40 MG CAPSULE.DR PO (07:19)
[2024-04-30 07:43] VITALS: BP 170/76; PULSE 58; RESP 14; TEMP 36.8; O2SAT 94
[2024-04-30] MEDS: calcium polycarbophiL TABLET 1 TAB PO (08:12)
[2024-04-30] MEDS: LAMIVUDINE 300 MG PO (08:12)
[2024-04-30] MEDS: Gabapentin 600 MG TABLET PO (08:12)
[2024-04-30] MEDS: amLODIPine Besylate 5 MG TABLET PO (08:12)
[2024-04-30] MEDS: Escitalopram Oxalate 10 MG TABLET PO (08:12)
[2024-04-30] MEDS: DOLUTEGRAVIR 50 MG PO (08:12)
[2024-04-30] MEDS: Buprenorphine/Naloxone 8/2 mg FILM 2 FILM SUBLINGUAL (08:13)
[2024-04-30] MEDS: Tamsulosin HCL 0.4 MG CAPSULE PO (08:13)
[2024-04-30] MEDS: Empagliflozin 10 MG TABLET PO (08:13)
[2024-04-30] MEDS: 0.9 % Sodium Chloride Flush 3 ML SYRINGE IVFLUSH (08:14)
--- NOTE | 2024-04-30 11:13 | PM.DS ---
DS: Providers Provider Date of Service: 04/30/24 Date of admission: 04/26/24 12:19 Date of discharge: 04/30/24 Primary care physician: Mora Gooden MD Consults: 04/26/24 11:58 Consult to General Surgery Routine Consulting Provider: [facility] [place] [facility] Reason for consultation: right leg cellulitis Has provider been notified: No 04/26/24 12:38 Consult to Infectious Diseases Routine Consulting Provider: [facility] [place] [facility] Reason for consultation: left leg cellulitis Has provider been notified: No Consult to Infectious Diseases Routine Consulting Provider: FRACISCO MATSON Reason for consultation: LLE cellulitis 04/26/24 16:57 Consult to Wound Care Routine Reason for consultation: cellulitis left leg, DTI coccyx, unstagable pressure to rt and lt heel 04/26/24 19:33 Consult to Nephrology Routine Consulting Provider: [facility] [place] [facility] Reason for consultation: MARY JO 04/28/24 09:08 Consult to Vascular Surgery Routine Consulting Provider: [facility] [place] [facility] Reason for consultation: PVD and leg wound Has provider been notified: No DS: Diagnosis Discharge Diagnosis (1) CKD (chronic kidney disease): Status: Acute (2) [id number] kidney injury: Status: Acute DS: Summary Hospital Course Hospital Course: History and physical as per admitting provider. 73 year old male history of chronic hepatitis, opiate use disorder, CKD, diabetes, HIV, hypotension, hyperlipidemia, pancreatitis, ulcerative colitis who presented to the emergency department with complaints of left lower extremity pain, swelling and a worsening painful wound. He reports he 1st noticed this 10 days ago and it rapidly progressed. He reports it started as redness, swelling and a few days later he started having blistering and yellow drainage coming from the site. He reports very painful when he bears weight on left lower extremity. Denies associated numbness, tingling, fevers, chills sore, trauma to left lower extremity, chest pain, shortness of breath. Patient not on anticoagulation. 73-year-old man treated for acute cellulitis and abscess to left lower extremity. Seen evaluated by General surgery and is status post I&D. Also seen by Infectious Disease with recommendations to start on cefepime and Zyvox. Culture grew out Morganella Morgagni, we will send home with Levaquin and Zyvox total of 10 day treatment. She was also noted to have MARY JO on CKD stage 3 likely secondary to infection improved significantly, seen evaluated by Nephrology, no indication for dialysis, likely secondary to hypoperfusion. Wound care as per General surgery, change daily dressing wet-to-dry saline soaked flap followed by dry fluff and Kerlix roll, elevate extremity while seated. Follow up with vascular surgery for further treatment of peripheral arterial disease. History of HIV on heart Diabetes mellitus type 2. Continue home medications History of chronic opiate dependence. Continue Suboxone Time Attestation Discharge Coordination Time (in mins): 40 Quality: Safe Use of Opioids Does Pt have an Active Cancer Diagnosis on the Problem List?: No Quality: Stroke Does the patient have a stroke diagnosis?: No Physical Exam Vital Signs: Vital Signs: Last Vital Signs Temp 98.2 F 04/30/24 07:43 Pulse 58 04/30/24 07:43 Resp 14 04/30/24 07:43 BP 170/76 H 04/30/24 07:43 Pulse Ox 94 04/30/24 07:43 O2 Del Method Room Air 04/30/24 07:43 BMI result Body Mass Index 30.7 Appearing in no acute distress head is normocephalic atraumatic eyes pupils are PERRLA sclera is anicteric mouth throat mucous membranes are intact and moist neck is supple no lymphadenopathy, no JVD noted lung sounds are clear to auscultation heart regular rate rhythm, clear S1, S2 positive bowel sounds, abdomen is soft, nontender neuro patient is alert x3, no focal deficits Left LE wound DS: Data Data Completed and Pending Completed studies during hospitalization [Text1]: Procedures Drainage of Abdomen Skin, External Approach (12/18/22) Excision of Small Intestine, Open Approach (12/18/22) Excision of Stomach, Pylorus, Via Natural or Artificial Opening Endoscopic, Diagnostic (06/06/21) Insertion of Infusion Device into Superior Vena Cava, Percutaneous Approach (12/18/22) Introduction of Other Therapeutic Substance into Upper GI, Via Natural or Artificial Opening Endoscopic (06/06/21) Release Small Intestine, Open Approach (12/18/22) Transfusion of Nonautologous Red Blood Cells into Peripheral Vein, Percutaneous Approach (06/06/21) Ultrasonography of Superior Vena Cava, Guidance (12/18/22) Labs on day of discharge: Laboratory Results - last 24 hr 1204/29/24 04/29/24 11:02 16:02 19:43 POC Glucose 120 H 117 H 167 H 04/30/24 07:11 POC Glucose 90 Preliminary micro results at discharge 04/27/24 12:03 Anaerobic Culture - Preliminary Leg Left Culture in progress. 04/26/24 08:50 Blood Culture - Preliminary Blood - Venous No growth after 48 hours. 04/26/24 08:28 Blood Culture - Preliminary Blood - Venous No growth after 48 hours. Discharge Plan Discharge Anticipated Discharge Date/Time: 04/30/24 11:07 Patient Disposition: Home Health Service Discharge Diagnosis: Cellulitis, abscess left lower extremity MARY JO on CKD stage 3 Referrals: Radha Valencia PA-C [Physician [employer]] - 1 Week Mora Gooden MD [Primary Care Provider] - 1 Week Discharge Medications: New linezolid 600 mg Tablet 600 mg PO Q12H Qty: 10 0RF levofloxacin 500 mg tablet 500 mg PO DAILY Qty: 5 0RF Continued gabapentin 600 mg Tablet 600 mg PO BID cetirizine 10 mg Tablet 10 mg PO DAILY PRN (Reason: Allergic Symptoms) pravastatin 40 mg Tablet 40 mg PO BEDTIME trazodone 100 mg Tablet 200 mg PO DAILY@1700 PRN (Reason: Insomnia) albuterol sulfate 90 mcg/actuation Hfa Aerosol Inhaler 2 puff INHALATION QID PRN (Reason: Respiratory Distress) buprenorphine-naloxone 8-2 mg Film 2 film SUBLINGUAL DAILY amlodipine 5 mg tablet 5 mg PO DAILY Dovato 50-300 mg tablet 1 tab PO DAILY Trulicity 0.75 mg/0.5 mL pen injector 0.75 mg subcut MO@0900 acetaminophen 500 mg tablet 1,000 mg PO Q4H PRN (Reason: Pain) Rx Instructions: DO NOT EXCEED 3 GRAMS PER DAY tamsulosin 0.4 mg capsule 0.4 mg PO DAILY furosemide 80 mg tablet 80 mg PO BID@0900,1700 Fiber Therapy (m-cellulose) 500 mg tablet 500 mg PO BID escitalopram oxalate 10 mg tablet 10 mg PO DAILY Jardiance 10 mg tablet 10 mg PO DAILY omeprazole 40 mg capsule,delayed release(DR/EC) 40 mg PO BID@0630,1630 buprenorphine-naloxone 8-2 mg film 1 film sublingual BEDTIME Discharge Orders: Discharge Order (Routine); Ordered 04/30/24 Ordered By: Adelina Dennison Diet: Advance to usual diet Activity on Discharge: As tolerated Stand Alone Forms: Patient Portal Discharge page Print Language: South African Care Plan Goals: Dressing change: Change daily with wet-to-dry saline soaked fluff followed by dry fluff and Kerlix roll, elevate left extremity while seated Health Concerns: Cellulitis, abscess left lower extremity MARY JO on CKD stage 3 Plan of Treatment: Follow-up with primary care provider as needed Take all medications as prescribed Follow up with vascular surgery for further treatment of peripheral arterial disease Assessment: See discharge summary
[2024-04-30 11:28] LABS: Glucose, Whole Blood 132 mg/dL (60-115)
--- NOTE | 2024-04-30 11:55 | MHC.CM.PN ---
Addendum entered by Ro Matta RN 04/30/24 12:01: BLS transport scheduled for 3pm. RN aware. IMM delivered. Original Note: Patient medically cleared for dc home w/ new VNA services through [facility] for wound care. Wound care currently ordered as daily. Patient and [employer] are aware that VNA is not able to provide daily visits. Per [employer], patient can manage dressings on days VNA is not available. RN to provide teach to patient. Patient requesting transport home via BLS.
[2024-04-30 12:05] VITALS: BP 158/68; PULSE 63; RESP 16; TEMP 36.6; O2SAT 97
[2024-04-30] MEDS: cefEPime HCl 1 GM in 0.9 % Sodium Chloride 50 ML IV (12:51)
--- NOTE | 2024-04-30 14:25 | W.MHC.F2F ---
Service Date Service Date: 04/30/24 Encounter Date of encounter: 04/30/24 Reasons for Services Signs and symptoms assessed: Cellulitis, abscess. LLE Reason for senior living: wound care (every other day, wet to dry dressing) Homebound: Leaving the home is medically contraindicated at this time without the asist of a device and/or another person due th the listed conditions above and below. Reason homebound: unsteady gait / fall risk and weakness related to hospital stay Certification: Based on the above findings, I certify that this patient is confined to the home and needs intermittent senior living care, physical therapy and/or speech therapy, or continues to need occupational therapy. The patient is under my care, and I have initiated the establishment of the plan of care. The patient will be followed by a physician who will periodically review the plan of care. Time Spent With Patient Time: Total time managing care of this patient today ____ minutes.
== END 2024-04-30 15:31 | disposition home health service (06) | DRG 603 ==
LOC: HO.ED 10:19 → HO.EDOVER 12:40 → HO.IMC 16:02
PROVIDERS: Family Medicine; Internal Medicine; Nurse Practitioner Family; Student in an Organized Health Care Education/Training Program; Admitting Provider Physician Assistant; Emergency Provider Emergency Medicine; PCP Internal Medicine; Visit Provider Nurse Practitioner Acute Care
DX: L02.416 Cutaneous abscess of left lower limb (principal); F11.20 Opioid dependence, uncomplicated; N17.9 Acute kidney failure, unspecified; L03.116 Cellulitis of left lower limb; E78.5 Hyperlipidemia, unspecified; I12.9 Hypertensive chronic kidney disease with stage 1 through stage 4 chronic kidney disease, or unspecified chronic kidney disease; E11.22 Type 2 diabetes mellitus with diabetic chronic kidney disease; K73.9 Chronic hepatitis, unspecified; N18.30 Chronic kidney disease, stage 3 unspecified; Z21 Asymptomatic human immunodeficiency virus [HIV] infection status; Z87.891 Personal history of nicotine dependence; Z79.85 Long-term (current) use of injectable non-insulin antidiabetic drugs; Z79.899 Other long term (current) drug therapy
CPT/HCPCS: 36415; 73700; 76882; 80048; 80053; 80307; 81003; 82550; 82947; 83605; 83880; 85025; 85027; 85610; 85652; 86140; 87040; 87070; 87073; 87077; 87186; 87205; 93926; 93971; 99285; J0690; J0692; J1644; J2020; J2270; J2405

== ENCOUNTER → 2024-04-26 08:02 | Outpatient (BNV) | payer OTHER, SELFPAY | PROVIDERS: PCP Internal Medicine; Visit Provider Radiology Diagnostic Radiology | DX: I70.221 Atherosclerosis of native arteries of extremities with rest pain, right leg (principal); S81.802A Unspecified open wound, left lower leg, initial encounter | CPT/HCPCS: 73700; 93926; 93971 ==

== ENCOUNTER 2024-04-26 12:19 | Outpatient (BNV) | payer OTHER, SELFPAY | END 2024-04-27 09:00 | PROVIDERS: Admitting Provider Physician Assistant; Emergency Provider Emergency Medicine; PCP Internal Medicine; Visit Provider Radiology Diagnostic Radiology | DX: L02.416 Cutaneous abscess of left lower limb (principal) | CPT/HCPCS: 76882 ==

== ENCOUNTER → 2024-04-26 12:19 | Outpatient (BNV) | payer OTHER, SELFPAY | PROVIDERS: Admitting Provider Physician Assistant; Emergency Provider Emergency Medicine; PCP Internal Medicine; Visit Provider Physician Assistant | DX: L02.416 Cutaneous abscess of left lower limb (principal) | CPT/HCPCS: 99232 ==

== ENCOUNTER → 2024-04-26 12:19 | Outpatient (BNV) | payer OTHER, SELFPAY | PROVIDERS: Admitting Provider Physician Assistant; Emergency Provider Emergency Medicine; PCP Internal Medicine; Visit Provider Physician Assistant Surgical | DX: L02.416 Cutaneous abscess of left lower limb (principal) | CPT/HCPCS: 99222; 99232 ==

== ENCOUNTER → 2024-04-26 12:19 | Outpatient (BNV) | payer OTHER, SELFPAY | PROVIDERS: Admitting Provider Physician Assistant; Emergency Provider Emergency Medicine; PCP Internal Medicine; Visit Provider Internal Medicine | DX: L02.416 Cutaneous abscess of left lower limb (principal); L03.116 Cellulitis of left lower limb; Z21 Asymptomatic human immunodeficiency virus [HIV] infection status | CPT/HCPCS: 99222 ==

== ENCOUNTER → 2024-04-26 12:19 | Outpatient (BNV) | payer OTHER, SELFPAY | PROVIDERS: Admitting Provider Physician Assistant; Emergency Provider Emergency Medicine; PCP Internal Medicine; Visit Provider Internal Medicine Hypertension Specialist | DX: N17.9 Acute kidney failure, unspecified (principal); N18.9 Chronic kidney disease, unspecified | CPT/HCPCS: 99223; 99232 ==

== ENCOUNTER → 2024-04-26 12:19 | Outpatient (BNV) | payer OTHER, SELFPAY | PROVIDERS: Admitting Provider Physician Assistant; Emergency Provider Emergency Medicine; PCP Internal Medicine; Visit Provider Surgery | DX: L02.416 Cutaneous abscess of left lower limb (principal); L03.116 Cellulitis of left lower limb | CPT/HCPCS: 10060; 99024; 99222 ==

== ENCOUNTER 2024-10-16 20:55 | Inpatient (IN) | payer OTHER, SELFPAY ==
--- NOTE | ~2024-10-16 | XR_ITS ---
CLINICAL HISTORY: ng tube placement 1 view chest x-ray Comparison: None provided Findings: Low lung volumes. Left base atelectasis. Moderate cardiomegaly. No acute fracture. There is a enteric tube with tip in the gastric fundus. Side hole is located in the mid stomach. IMPRESSION: Enteric tube with tip and side hole within the stomach in good position. This document has been electronically signed by: Luiz Henry MD on 10/17/2024 01:58:41
--- NOTE | ~2024-10-16 | CT_ITS ---
CLINICAL HISTORY: diffuse abd pain, hx U colitis, pancreatitis, sbo CT abdomen and pelvis without contrast Comparison: None provided Findings: Atelectasis. Gynecomastia. Cardiomegaly without significant pericardial effusion. Coronary artery calcifications. Hepatomegaly. Evidence of prior splenectomy with scattered splenules in the left upper quadrant. Bilateral perinephric stranding, nonspecific. Bilateral hypodense and intermediate dense renal cysts. If clinical concern persists consider follow-up MRI. Scattered punctate less than 2 mm calculi in the left lower pole kidney, nonobstructive. Status post near-complete total colectomy with a right lower quadrant diverting ileostomy, with a parastomal hernia containing loops of nonobstructive bowel in the hernia sac. However, there is proximal small bowel dilatation with air-fluid levels and gradual tapering to decompression in the left abdomen suggesting a component of partial SBO. Nonspecific oval-shaped radiopaque density within a distended loop of bowel measuring 2.2 cm series 7, image 34. Postsurgical abdominal wall changes. Fat containing inguinal hernias. Prominent inguinal nodes. Prostate is not visualized either atrophic or absent. Mildly distended bladder. Osteopenia with diffuse multilevel spondylosis. Chronic appearing multilevel vertebral body height loss. Grade 1 anterolisthesis at L5-S1. Diffuse atheromatous plaque disease throughout the aorta and branch vessels, without aneurysmal dilatation. Postcholecystectomy. IMPRESSION: 1. Proximal partial SBO as described. 2. Near-complete total colectomy, diverting right lower quadrant ileostomy and parastomal hernia. 3. Additional findings described. This document has been electronically signed by: Neymar Alejandro MD on 10/16/2024 23:20:42
[2024-10-16 21:04] VITALS: BP 183/84; PULSE 56; RESP 16; TEMP 36.8; O2SAT 95
[2024-10-16 21:10] VITALS: BP 198/86; PULSE 55; O2SAT 94
[2024-10-16 21:50] LABS: Basophils Percent Auto 0.1 % (0-2); Hematocrit 41.3 % (42.0-52.0); Imm Gran Abs Auto 0.06 X10*3/uL (0.00-0.03); Imm Gran Pct Auto 0.4 % (0.0-0.4); Lymphocytes Absolute Auto 1.4 X10*3/uL (1.2-4.9); Lymphocytes Percent Auto 9.3 % (20-40); MANUAL DIFF FLAG NO; Mean Corpuscular HGB Conc 33.9 g/dl (31.0-36.0); Mean Corpuscular Hemoglobin 34.5 pg (27.0-33.0); Mean Corpuscular Volume 101.7 fL (80.0-98.0); Mean Platelet Volume 10.8 fL (9.4-12.4); Monocytes Percent Auto 6.7 % (2-11); NRBC Pct Auto 0.1 /100WBC (0.0-0.2); Neutrophils Absolute Auto 12.8 x10*3/uL (2.0-8.3); Neutrophils Percent Auto 83.5 % (45-73); Platelet Count 376 X10*3/uL (160-400); Red Blood Count 4.06 X10*6/uL (4.60-5.80); Red Cell Distribution Width 14.3 % (11.0-16.0); White Blood Count 15.3 X10*3/uL (4.8-10.8)
--- NOTE | 2024-10-16 21:56 | PC.NURSE ---
Addendum entered by Norma Deal LPN 10/16/24 22:01: per pt and EMS pt vomited x1 en route to dept. per ems emesis appeared bilious Original Note: pt brought in via EMS w/ c/o 02/06 abdominal pain x 3 hours. pt has hx of bowel obstruction and reports this feels the same. pt has a right sided colostomy, stoma red in appearance. Pt reports color of effluent has changed- pt reports black at times. no bright red blood per pt. 22g IV access was obtained in left posterior forearm, basic labs obtained. pt awaiting provider eval, urinal and call lyle within reach.
[2024-10-16 22:04] VITALS: BMI 32.5
[2024-10-16 22:07] LABS: Alanine Aminotransferase 11 U/L (0-40); Albumin Level 4.5 g/dL (3.5-5.0); Alkaline Phosphatase 100 U/L (39-117); Anion Gap 19 (12-20); Aspartate Amino Transferase 26 U/L (5-37); Bilirubin Total 0.2 mg/dL (0.0-1.0); Blood Urea Nitrogen 78 mg/dL (9-16); Calcium 9.5 mg/dL (8.4-10.2); Carbon Dioxide 25 mmol/L (22-29); Chloride 99 mmol/L (96-108); Creatinine Clr Calc Pharmacy 17.8; Estimated Glomerular Filt Rate 15; Glucose Random 173 mg/dL (60-115); Potassium 5.1 mmol/L (3.3-5.1); Sodium 138 mmol/L (135-145)
--- NOTE | 2024-10-16 22:08 | ED.ABDPAIN ---
HPI - Abdominal Pain General Chief Complaint: Abdominal Pain Stated Complaint: 02/06 abd pain Time Seen by Provider: 10/16/24 21:55 Source: patient and EMS Mode of arrival: EMS Limitations: no limitations History of Present Illness ED Provider: Dr. Luisa Theodore HPI narrative: Patient comes to the emergency room complaining of 3 hours of abdominal pain, nausea and vomiting. Patient reports that the pain started 3 hours ago, sudden. Patient has history of small-bowel obstructions in the past and states it feels very similar. Patient denies fever chills, denies hematuria or dysuria. Denies flank pain. Related Data Home Medications ?Medication ?Instructions ?Recorded ?Confirmed albuterol sulfate 90 mcg/actuation 2 puff inhalation QID PRN 06/06/21 04/26/24 aerosol inhaler Respiratory Distress buprenorphine 8 mg-naloxone 2 mg 2 film sublingual DAILY 06/06/21 04/26/24 sublingual film cetirizine 10 mg tablet 10 mg PO DAILY PRN Allergic 06/06/21 04/26/24 Symptoms gabapentin 600 mg tablet 600 mg PO BID 06/06/21 04/26/24 pravastatin 40 mg tablet 40 mg PO BEDTIME 06/06/21 04/26/24 trazodone 100 mg tablet 200 mg PO DAILY@1700 PRN Insomnia 06/06/21 04/26/24 amlodipine 5 mg tablet 5 mg PO DAILY 12/18/22 04/26/24 dolutegravir 50 mg-lamivudine 300 1 tab PO DAILY 12/18/22 04/26/24 mg tablet (Dovato) dulaglutide 0.75 mg/0.5 mL 0.75 mg subcut MO@0900 12/18/22 04/26/24 subcutaneous pen injector (Trulicity) acetaminophen 500 mg tablet 1,000 mg PO Q4H PRN Pain 04/26/24 04/26/24 buprenorphine 8 mg-naloxone 2 mg 1 film sublingual BEDTIME 04/26/24 04/26/24 sublingual film empagliflozin 10 mg tablet 10 mg PO DAILY 04/26/24 04/26/24 (Jardiance) escitalopram oxalate 10 mg tablet 10 mg PO DAILY 04/26/24 04/26/24 furosemide 80 mg tablet 80 mg PO BID@0900,1700 04/26/24 04/26/24 methylcellulose (laxative) 500 mg 500 mg PO BID 04/26/24 04/26/24 tablet (Fiber Therapy (methylcellulose)) omeprazole 40 mg capsule,delayed 40 mg PO BID@0630,1630 04/26/24 04/26/24 release tamsulosin 0.4 mg capsule 0.4 mg PO DAILY 04/26/24 04/26/24 Previous Rx's ?Medication ?Instructions ?Recorded levofloxacin 500 mg tablet 500 mg PO DAILY #5 tabs 04/30/24 linezolid 600 mg tablet 600 mg PO Q12H #10 tabs 04/30/24 Allergies Allergy/AdvReac Type Severity Reaction Status Date / Time ampicillin (AMPICILLIN) Allergy Mild HIVES Verified 10/16/24 22:05 aspirin (ASPIRIN) Allergy Unknown RASH Verified 10/16/24 22:05 Review of Systems Review of Systems Constitutional : No Weight loss, No Fever, No Chills, No Night Sweats, No Fatigue, No Malaise ENT/Mouth : No Hearing loss, No Ear Pain, No Nasal Congestion, No Sinus Pain, No Hoarseness, No sore throat, No Rhinorrhea, No Swallowing Difficulty Eyes: No Eye Pain, No Swelling, No Redness, No Foreign Body, No Discharge, No Vision Changes Cardiovascular : No Chest Pain, No SOB, No Dyspnea on Exertion, No Orthopnea, No Edema, No Palpitations Respiratory : No Cough, No Sputum, No Wheezing, No Smoke Exposure, No Dyspnea Gastrointestinal : Complaining of nausea and vomiting x1, complaining of diffuse abdominal pain Genitourinary : no irregular bleeding, No Dysuria, No Urinary Frequency, No Hematuria, No Urinary Incontinence, No Urgency, No Flank Pain, No Urinary Flow Changes, No Hesitancy Musculoskeletal : No joint pain, No Myalgias, No Joint Swelling Skin : No Skin Lesions, No rash Neuro : No Weakness, No Numbness, No Paresthesias, No Loss of Consciousness, No Dizziness, No Headache Psych : No Anxiety/Panic, No Depression, No SI/HI/AH/VH, No Social Issues, Heme/Lymph: No Bruising, No Bleeding,No Lymphadenopathy Endocrine : No Polyuria, No Polydipsia, No Temperature Intolerance PMFSH Past Medical History Medical History Duodenal ulcer Severe anemia Hyperlipemia Pancreatitis CKD (chronic kidney disease) HIV (human immunodeficiency virus infection) Chronic hepatitis Chronic use of nonprescription opiate drugs Ulcerative colitis Diabetes mellitus HTN (hypertension), benign Surgical History H/O exploratory laparotomy (12/20/22) Hx of cholecystectomy Hx of splenectomy Status post right hip replacement History of total left knee replacement (TKR) H/O colectomy Social History Social History Household Members: None Housing: Apartment Do you presently have visiting nurse or other home services: Yes Alcohol intake: never Patient Tobacco Use Status: Former Tobacco user Tobacco use type: Cigarette Smoked in Last 30 Days: No Use of substances other than those prescribed or required for medical reasons: No Advance Directives: Yes Advance Directives on File: Yes Advance Directives Date on File: 06/07/21 Do you have a plan to hurt others: No Plan service: No Current occupational status: disabled Physical Exam ED Vital Signs: Vital Signs - 24 hr 10/16/24 21:04 10/16/24 22:30 Temperature 98.3 F 98.2 F Pulse Rate 56 66 Respiratory Rate 16 18 Blood Pressure 183/84 H 187/96 H Pulse Oximetry 95 94 Oxygen Delivery Method Room Air Room Air BMI result Body Mass Index 32.5 Const Other: Appearance: Alert. Oriented X3. Seems a bit uncomfortable Eyes: Pupils equal, round and reactive to light. ENT: Pharynx normal. Neck: Normal inspection. Neck supple. No lymph nodes noted. No crepitus CVS: Normal heart rate and rhythm. Pulses normal. Normal S1 and S2 Respiratory: No respiratory distress. Breath sounds normal. No Wheezing. No rales Abdomen: Soft , colostomy bag in place, solid stool, no distention, discomfort to palpation especially in the periumbilical area and epigastric area. No rebound or guarding Skin: Skin warm and dry. Normal skin color. Normal skin turgor. Extremities: No lower extremity edema. No Lacerations. No Rash Neuro: Oriented X 3. No motor deficit. No sensory deficit. Moving all extremities. No slurred speech. CN 2 through 12 grossly intact Psych: calm, cooperative, normal affect Course Course Course Narrative: Patient has history of ulcerative colitis with a colostomy bag, pancreatitis, small bowel obstructions. Patient reports the pain is 9/10. All of patient's labs and imaging pending Patient receiving IV fluids, IV Zofran and morphine. Medical Decision Making Medical Decision Making [facility] Narrative: My interpretation of labs: Patient's white blood cell count is 15.3, hemoglobin hematocrit and platelets at baseline, patient's creatinine is a bit more elevated than usual, today is 3.91, baseline is approximately 2. Patient receiving IV fluids, morphine, Zofran CT scan: Proximal partial SBO Discussed the patient with Dr. Vo from General surgery. Recommendations: NG-tube placement and admission Differential Diagnosis Differential Diagnoses: The differential diagnosis associated with the presentation includes (SBO, perforation, colitis, gastroenteritis) Admission/Observation Consideration of admission/observation: Escalation of care including admission/observation considered Consult Healthcare Provider Management of the patient was discussed with: [employer] Lab Data [facility] Lab Attestation statement: I reviewed the patient's lab results. 10/16/24 21:43 10/16/24 21:43 Labs: Lab Results 10/16/24 10/16/24 Range/Units 21:43 22:55 WBC 15.3 H (4.8-10.8) X10*3/uL RBC 4.06 L (4.60-5.80) X10*6/uL Hgb 14.0 (14.0-18.0) g/dl Hct 41.3 L (42.0-52.0) % MCV 101.7 H (80.0-98.0) fL MCH 34.5 H (27.0-33.0) pg MCHC 33.9 (31.0-36.0) g/dl RDW 14.3 (11.0-16.0) % Plt Count 376 (160-400) X10*3/uL MPV 10.8 (9.4-12.4) fL Immature Gran % (Auto) 0.4 (0.0-0.4) % Neut % (Auto) 83.5 H (45-73) % Lymph % (Auto) 9.3 L (20-40) % Vilas % (Auto) 6.7 (2-11) % Eos % (Auto) 0.0 (0-4) % Baso % (Auto) 0.1 (0-2) % Lymph # (Auto) 1.4 (1.2-4.9) X10*3/uL Vil[place] # (Auto) 1.0 (0.1-1.2) X10*3/uL Eos # (Auto) 0.0 (0.0-0.4) X10*3/uL Baso # (Auto) 0.0 (0.0-0.2) X10*3/uL Abs Immat Gran (auto) 0.06 H (0.00-0.03) X10*3/uL Absolute Neuts (auto) 12.8 H (2.0-8.3) x10*3/uL Absolute Nucleated RBC 0.020 H (0.0-0.012) X10*3/uL Nucleated RBC % (auto) 0.1 (0.0-0.2) /100WBC Sodium 138 (135-145) mmol/L Potassium 5.1 (3.3-5.1) mmol/L Chloride 99 (96-108) mmol/L Carbon Dioxide 25 (22-29) mmol/L Anion Gap 19 (12-20) BUN 78 H (9-16) mg/dL Creatinine 3.91 H (0.5-1.4) mg/dL Estim Creat Clear Calc 17.8 Estimated GFR 15 Random Glucose 173 H (60-115) mg/dL Calcium 9.5 D (8.4-10.2) mg/dL Total Bilirubin 0.2 (0.0-1.0) mg/dL AST 26 (5-37) U/L ALT 11 (0-40) U/L Alkaline Phosphatase 100 (39-117) U/L Total Protein 8.0 (6.5-8.0) g/dL Albumin 4.5 (3.5-5.0) g/dL Lipase 38 (8-78) U/L Urine Opiates Screen Not Detected (Not Detect) Ur Buprenorphine Scrn Positive H (Not Detect) ng/mL Ur Oxycodone Screen Not Detected (Not Detect) ng/mL Urine Methadone Screen Not Detected (Not Detect) ng/mL Urine Fentanyl Screen Not Detected (Not Detect) Ur Barbiturates Screen Not Detected (Not Detect) Ur Phencyclidine Scrn Not Detected (Not Detect) Ur Amphetamines Screen Not Detected (Not Detect) U Benzodiazepines Scrn Not Detected (Not Detect) Urine Cocaine Screen Not Detected (Not Detect) U Marijuana (THC) Screen Not Detected (Not Detect) Independent Interpretation I performed an independent interpretation of an: CT Scan Radiology Impression Discussion of test interpretation with radiology: I have reviewed the radiologist's reading. Radiologist Impression: Findings: Atelectasis. Gynecomastia. Cardiomegaly without significant pericardial effusion. Coronary artery calcifications. Hepatomegaly. Evidence of prior splenectomy with scattered splenules in the left upper quadrant. Bilateral perinephric stranding, nonspecific. Bilateral hypodense and intermediate dense renal cysts. If clinical concern persists consider follow-up MRI. Scattered punctate less than 2 mm calculi in the left lower pole kidney, nonobstructive. Status post near-complete total colectomy with a right lower quadrant diverting ileostomy, with a parastomal hernia containing loops of nonobstructive bowel in the hernia sac. However, there is proximal small bowel dilatation with air-fluid levels and gradual tapering to decompression in the left abdomen suggesting a component of partial SBO. Nonspecific oval-shaped radiopaque density within a distended loop of bowel measuring 2.2 cm series 7, image 34. Postsurgical abdominal wall changes. Fat containing inguinal hernias. Prominent inguinal nodes. Prostate is not visualized either atrophic or absent. Mildly distended bladder. Osteopenia with diffuse multilevel spondylosis. Chronic appearing multilevel vertebral body height loss. Grade 1 anterolisthesis at L5-S1. Diffuse atheromatous plaque disease throughout the aorta and branch vessels, without aneurysmal dilatation. Postcholecystectomy. IMPRESSION: 1. Proximal partial SBO as described. 2. Near-complete total colectomy, diverting right lower quadrant ileostomy and parastomal hernia. 3. Additional findings described. Medications Administered Discontinued Medications Generic Name Dose Route Start Last Admin Trade Name Freq PRN Reason Stop Dose Admin Sodium Chloride 1,000 mls @ 999 mls/hr 10/16/24 22:06 10/16/24 23:40 Ns IVCONT 10/16/24 23:06 Infused .Q1H1M ONE Infusion Morphine Sulfate 4 mg 10/16/24 22:10/16/24 22:37 Morphine Sulfate 4 Mg/Ml Cartridge IVPUSH 10/16/24 22:07 4 mg ONCE ONE Administration Protocol Ondansetron HCl 4 mg 10/16/24 22:06 10/16/24 22:32 Ondansetron Hcl 4 Mg/2 Ml Vial IVPUSH 10/16/24 22:07 4 mg ONCE ONE Administration Critical Care Time Critical Care Time Critical Care Time: Yes Total Critical Care Time: 60 Attestation: I have personally provided critical care time. Time includes review of lab data, radiology results, discussion with consultants, and monitoring for potential decompensation. Intervention performed as documented. Discharge Plan Discharge Clinical Impression: Hx SBO, Nausea & vomiting Patient Disposition: Admitted As Inpatient Print Language: Frisian
[2024-10-16 22:19] LABS: Lipase 38 U/L (8-78)
[2024-10-16] MEDS: 0.9 % Sodium Chloride 1,000 ML 999 ML IVCONT (22:28)
[2024-10-16 22:30] VITALS: BP 187/96; PULSE 66; RESP 18; TEMP 36.8; O2SAT 94
[2024-10-16] MEDS: ondansetron HCL 4 MG/2 ML VIAL IVPUSH (22:32)
[2024-10-16] MEDS: Morphine Sulfate 4 MG/ML CARTRIDGE IVPUSH (22:37)
[2024-10-16 23:07] LABS: Appearance Urine Clear; Color Urine Yellow; Glucose Urine UA 250 mg/dL (Negative); Leukocyte Esterase Urine Negative (Negative); Nitrite Urine Negative (Negative); PH 5.5 (5.0-9.0); Urine Blood Negative (Negative); Urine Ketones Negative (Negative); Urine Protein Negative (Neg-Trace)
[2024-10-16 23:15] LABS: Amphetamine Screen Urine Not Detected (Not Detect); Barbiturates, Urine Not Detected (Not Detect); Benzodiazepines Screen Urine Not Detected (Not Detect); Buprenorphine Scr Positive (Not Detect); Cannabinoid Screen Urine Not Detected (Not Detect); Cocaine Screen Urine Not Detected (Not Detect); Fentanyl, urine Not Detected (Not Detect); Methadone Screen, Urine Not Detected (Not Detect); Opiate Screen Urine Not Detected (Not Detect); Oxycodone Screen Urine Not Detected (Not Detect); Phencyclidine Screen Urine Not Detected (Not Detect)
[2024-10-17] VITALS (14 sets, daily range): BP systolic 137–187; BP diastolic 60–96; PULSE 60–68; RESP 14–20; TEMP 36–36.9; O2SAT 92–95; BMI 28.3
[2024-10-17] MEDS: Lidocaine HCl 4 % Laryng-O-Jet 4 ML 1 APPL TOPICAL (00:10)
[2024-10-17] MEDS: HYDROmorphone HCl 0.5 MG/0.5 ML SYRINGE IVPUSH ×3 (00:28→10:34)
[2024-10-17] MEDS: 0.9 % Sodium Chloride Flush 3 ML SYRINGE IVFLUSH ×2 (00:29→08:32)
[2024-10-17] MEDS: Lactated Ringers 1,000 ML 100 ML IVCONT ×3 (00:32→19:44)
--- NOTE | 2024-10-17 01:37 | HO.PM.IMCN ---
History of Present Illness Data of Consult Service Date: 10/17/24 Requesting physician: Jacky Vo Primary Care Provider: Mora Gooden MD [facility] Reason for consult: medical management Patient is a 74-year-old male with a past medical history significant for type 2 diabetes, hypertension, substance use disorder on buprenorphine, HIV, GERD, HLD, CKD 4, pancreatitis, history small-bowel obstruction and ulcerative colitis, who presented to the ED with abdominal pain, nausea and vomiting with change to color and output in his colostomy bag. He was diagnosed with another partial small-bowel obstruction an NG tube was placed. The patient reports that his nausea and vomiting have improved. Hospitalist consult was placed for medical management. The patient denies any chest pain, headache, change in vision, nasal congestion, sore throat, urinary symptoms or lower extremity edema. Review of Systems Constitutional: Constitutional: Denies body ache(s), Reports chills, Denies fatigue, Denies fever(s) and Denies headache(s) Eyes: Eyes: Denies change in vision and Denies loss of vision ENT: Denies headache(s), Denies nasal congestion and Denies nasal discharge Cardiovascular: Cardiovascular: Denies chest pain, Denies rapid heart rate, Denies leg edema, Denies lightheadedness and Denies dyspnea Respiratory: Respiratory: Denies chest congestion, Denies cough, Denies dyspnea and Denies wheezing Gastrointestinal: Gastrointestinal: Reports as per HPI Genitourinary: Genitourinary: Denies oliguria, Denies urinary frequency and Denies urinary urgency Musculoskeletal: Musculoskeletal: Denies back pain Integumentary/Breasts: Skin/Breast: Denies rash Neurologic: Denies confusion, Denies headache(s) and Denies loss of vision Psychiatric: Psychiatric: Denies confusion Endocrine: Endocrine: Denies fatigue Hematologic/Lymphatic: Hematologic/Lymphatic: Denies easy bleeding and Denies easy bruising Allergic/Immunologic: Allergic/Immunologic: Denies wheezing PMFSH Medical History Duodenal ulcer Severe anemia Hyperlipemia Pancreatitis CKD (chronic kidney disease) HIV (human immunodeficiency virus infection) Chronic hepatitis Chronic use of nonprescription opiate drugs Ulcerative colitis Diabetes mellitus HTN (hypertension), benign Surgical History H/O exploratory laparotomy (12/20/22) Hx of cholecystectomy Hx of splenectomy Status post right hip replacement History of total left knee replacement (TKR) H/O colectomy Social History Household Members: None Housing: Apartment Do you presently have visiting nurse or other home services: Yes Alcohol intake: never Patient Tobacco Use Status: Former Tobacco user Tobacco use type: Cigarette Smoked in Last 30 Days: No Use of substances other than those prescribed or required for medical reasons: No Advance Directives: Yes Advance Directives on File: Yes Advance Directives Date on File: 06/07/21 Do you have a plan to hurt others: No Plan service: No Current occupational status: disabled Narrative: No smoking, alcohol or drug use Meds Allergies Allergy/AdvReac Type Severity Reaction Status Date / Time ampicillin (AMPICILLIN) Allergy Mild HIVES Verified 10/16/24 22:05 aspirin (ASPIRIN) Allergy Unknown RASH Verified 10/16/24 22:05 Active Medications: Current Medications Calcium Carbonate (Calcium Carbonate 750 Mg Tab.Chew) 750 mg PO Q4H PRN PRN Reason: Heartburn Dextrose (Dextrose 50 % 25 Gm/50 Ml Syringe) 25 gm IVPUSH Q15M PRN; Protocol PRN Reason: per Hypoglycemia Standing Ord. Enoxaparin Sodium (Enoxaparin Sodium 30 Mg/0.3 Ml Syringe) 30 mg SUBCUT Q24H RASHAD Glucose (Glucose Gel 15 Gm Gel..Gram.) 15 gm PO Q15M PRN; Protocol PRN Reason: per Hypoglycemia Standing Ord. Hydromorphone HCl (Hydromorphone Hcl 0.5 Mg/0.5 Ml Syringe) 0.5 mg IVPUSH Q3H PRN; Protocol PRN Reason: Pain, Severe (Pain Scale 7-10) Last Admin: 10/17/24 00:28 Dose: 0.5 mg Acetaminophen (Ofirmev) 1,000 mg in 100 mls @ 400 mls/hr IV Q6H PRN PRN Reason: Pain, Mild (Pain Scale 1-3) Lactated Ringer's (Lr) 1,000 mls @ 100 mls/hr IVCONT .Q10H RASHAD Last Admin: 10/17/24 00:32 Dose: 100 mls/hr Insulin Human Lispro (Insulin Lispro 100 Unit/Ml 3 Ml Vial) 0 unit SUBCUT RQ6H [facility]; Protocol Melatonin (Melatonin 3 Mg Tablet) 6 mg PO BEDTIME PRN PRN Reason: Insomnia Ondansetron HCl (Ondansetron Hcl 4 Mg/2 Ml Vial) 4 mg IVPUSH Q8H PRN PRN Reason: Nausea and Vomiting Oxycodone HCl (Oxycodone Hcl Immed Release 5 Mg Tablet) 5 mg PO Q6H PRN PRN Reason: Pain, Moderate(Pain Scale 4-6) Sodium Chloride (0.9 % Sodium Chloride Flush 3 Ml Syringe) [facility] Last Admin: 10/17/24 00:29 Dose: 3 ml Home Medications ?Medication ?Instructions ?Recorded ?Confirmed ?Last Taken ?Type albuterol sulfate 90 mcg/actuation 2 puff inhalation QID PRN 06/06/21 04/26/24 2 Days Ago History aerosol inhaler Respiratory Distress ~12/16/22 buprenorphine 8 mg-naloxone 2 mg 2 film sublingual DAILY 06/06/21 04/26/24 04/26/24 09:00 History sublingual film cetirizine 10 mg tablet 10 mg PO DAILY PRN Allergic 06/06/21 04/26/24 2 Days Ago History Symptoms ~12/16/22 gabapentin 600 mg tablet 600 mg PO BID 06/06/21 04/26/24 04/26/24 09:00 History pravastatin 40 mg tablet 40 mg PO BEDTIME 06/06/21 04/26/24 2 Days Ago History ~12/16/22 trazodone 100 mg tablet 200 mg PO DAILY@1700 PRN Insomnia 06/06/21 04/26/24 2 Days Ago History ~12/16/22 amlodipine 5 mg tablet 5 mg PO DAILY 12/18/22 04/26/24 04/26/24 09:00 History dolutegravir 50 mg-lamivudine 300 1 tab PO DAILY 12/18/22 04/26/24 04/26/24 09:00 History mg tablet (Dovato) dulaglutide 0.75 mg/0.5 mL 0.75 mg subcut MO@0900 12/18/22 04/26/24 04/21/24 History subcutaneous pen injector (Trulicity) acetaminophen 500 mg tablet 1,000 mg PO Q4H PRN Pain 04/26/24 04/26/24 Unknown History buprenorphine 8 mg-naloxone 2 mg 1 film sublingual BEDTIME 04/26/24 04/26/24 Unknown History sublingual film empagliflozin 10 mg tablet 10 mg PO DAILY 04/26/24 04/26/24 04/26/24 09:00 History (Jardiance) escitalopram oxalate 10 mg tablet 10 mg PO DAILY 04/26/24 04/26/24 04/26/24 09:00 History furosemide 80 mg tablet 80 mg PO BID@0900,1700 04/26/24 04/26/24 04/26/24 09:00 History methylcellulose (laxative) 500 mg 500 mg PO BID 04/26/24 04/26/24 04/26/24 09:00 History tablet (Fiber Therapy (methylcellulose)) omeprazole 40 mg capsule,delayed 40 mg PO BID@0630,1630 04/26/24 04/26/24 04/26/24 09:00 History release tamsulosin 0.4 mg capsule 0.4 mg PO DAILY 04/26/24 04/26/24 04/26/24 09:00 History Physical Exam Vital Signs and Narrative: Vital Signs: Last Vital Signs Temp 98.2 F 10/16/24 22:30 Pulse 62 10/17/24 00:27 Resp 20 10/17/24 00:27 BP 169/96 H 10/17/24 00:27 Pulse Ox 95 10/17/24 00:27 O2 Del Method Room Air 10/17/24 00:27 BMI result Body Mass Index 32.5 General: AOx3, no acute distress Resp: CTA bilaterally CVS: S1, S2, RRR GI: hypoactive BS, NT, no distention. minimal output in NG tube Skin: Warm, dry Neuro: Cranial nerves II-XII grossly intact bilaterally. Motor grossly intact bilaterally Extremities: No LE edema Psych: Appropriate affect Const: General: No confusion Orientation/consciousness: No confusion Neuro: General: No confusion Results Labs 10/16/24 21:43 10/16/24 21:43 Labs: Laboratory Results - last 24 hr 10/16/24 10/16/24 21:43 22:55 MCV 101.7 H MCH 34.5 H MCHC 33.9 RDW 14.3 Plt Count 376 MPV 10.8 Immature Gran % (Auto) 0.4 Neut % (Auto) 83.5 H Lymph % (Auto) 9.3 L [place] % (Auto) 6.7 Eos % (Auto) 0.0 Baso % (Auto) 0.1 Lymph # (Auto) 1.4 [place] # (Auto) 1.0 Eos # (Auto) 0.0 Baso # (Auto) 0.0 Abs Immat Gran (auto) 0.06 H Absolute Neuts (auto) 12.8 H Absolute Nucleated RBC 0.020 H Nucleated RBC % (auto) 0.1 Anion Gap 19 Estim Creat Clear Calc 17.8 Estimated GFR 15 Random Glucose 173 H Calcium 9.5 D Total Bilirubin 0.2 AST 26 ALT 11 Alkaline Phosphatase 100 Total Protein 8.0 Albumin 4.5 Lipase 38 Urine Color Yellow Urine Appearance Clear Urine pH 5.5 Ur Specific [place] 1.010 Urine Protein Negative Urine Glucose (UA) 250 H Urine Ketones Negative Urine Blood Negative Urine Nitrite Negative Ur Leukocyte Esterase Negative Urine Opiates Screen Not Detected Ur Buprenorphine Scrn Positive H Ur Oxycodone Screen Not Detected Urine Methadone Screen Not Detected Urine Fentanyl Screen Not Detected Ur Barbiturates Screen Not Detected Ur Phencyclidine Scrn Not Detected Ur Amphetamines Screen Not Detected U Benzodiazepines Scrn Not Detected Urine Cocaine Screen Not Detected U Marijuana (THC) Screen Not Detected Assessment and Plan (1) Partial small bowel obstruction: Status: Acute (2) Acute kidney injury superimposed on stage 4 chronic kidney disease: Status: Acute (3) Class 1 obesity: Status: Acute Plan Patient is a 74-year-old male with a past medical history significant for type 2 diabetes, hypertension, substance use disorder on buprenorphine, HIV, GERD, HLD, CKD 4, pancreatitis, history small-bowel obstruction and ulcerative colitis, who presented to the ED with abdominal pain, nausea and vomiting with change to color and output in his colostomy bag. Hospitalist consult placed for medical management, patient admitted by surgery for partial small-bowel obstruction. partial small bowel obstruction - plan per surgery - NG tube in place - patient reports nausea and vomiting improved MARY JO on CKD 4 - creatinine 3.91 - given 2 L IV fluids in ED and on LR 100 mL/HR - hold lasix - avoid nephrotoxins when possible - monitor BMP Type 2 diabetes - hold p.o. meds - currently NPO - sliding scale insulin q.6h HTN - IV hydralazine 5mg Q4H PRN for systolic >160 - currently NPO therefore holding amlodipine and holding lasix due to MARY JO HIV - resume dovato when appropriate PABLO - resume buprenorphine when appropriate GERD - resume omeprazole when appropriate, consider IV pantoprazole if needed HLD - resume statin when appropriate full code VTE prophy: genevieve Thank you for allowing me to participate in the pt's care. Will continue to follow. Please contact the medical team if any questions or concerns.
[2024-10-17 02:19] LABS: Glucose, Whole Blood 130 mg/dL (60-115)
[2024-10-17] MEDS: hydrALAZINE HCl 20 MG/ML VIAL 5 MG IVPUSH ×2 (02:48→10:34)
--- NOTE | 2024-10-17 06:23 | PC.NURSE ---
patients colostomy bag noted to be leaking. patient had large BM in bag. patient cleaned and linens changed. NG tube continues to drain.
[2024-10-17 06:59] LABS: MANUAL DIFF FLAG NO
[2024-10-17 07:12] LABS: Basophils Percent Auto 0.1 % (0-2); Eosinophils Percent Auto 0.1 % (0-4); Hematocrit 44.2 % (42.0-52.0); Hemoglobin 14.9 g/dl (14.0-18.0); Imm Gran Abs Auto 0.08 X10*3/uL (0.00-0.03); Imm Gran Pct Auto 0.5 % (0.0-0.4); Lymphocytes Absolute Auto 2.2 X10*3/uL (1.2-4.9); Lymphocytes Percent Auto 13.4 % (20-40); Mean Corpuscular HGB Conc 33.7 g/dl (31.0-36.0); Mean Corpuscular Hemoglobin 34.1 pg (27.0-33.0); Mean Corpuscular Volume 101.1 fL (80.0-98.0); Mean Platelet Volume 10.5 fL (9.4-12.4); Monocytes Absolute Auto 1.4 X10*3/uL (0.1-1.2); Monocytes Percent Auto 8.7 % (2-11); NRBC Pct Auto 0.1 /100WBC (0.0-0.2); Neutrophils Absolute Auto 12.6 x10*3/uL (2.0-8.3); Neutrophils Percent Auto 77.2 % (45-73); Platelet Count 384 X10*3/uL (160-400); Red Blood Count 4.37 X10*6/uL (4.60-5.80); Red Cell Distribution Width 14.1 % (11.0-16.0); White Blood Count 16.3 X10*3/uL (4.8-10.8)
[2024-10-17 07:31] LABS: Anion Gap 17 (12-20); Blood Urea Nitrogen 67 mg/dL (9-16); Calcium 9.3 mg/dL (8.4-10.2); Carbon Dioxide 27 mmol/L (22-29); Chloride 101 mmol/L (96-108); Creatinine Clr Calc Pharmacy 20.6; Estimated Glomerular Filt Rate 18; Glucose Random 140 mg/dL (60-115); Potassium 4.6 mmol/L (3.3-5.1); Sodium 140 mmol/L (135-145)
[2024-10-17] MEDS: Enoxaparin Sodium 30 MG/0.3 ML SYRINGE SUBCUT (08:31)
[2024-10-17] MEDS: oxyCODONE HCl Immed Release 5 MG TABLET PO ×3 (08:51→22:49)
--- NOTE | 2024-10-17 09:29 | PM.HPGS ---
History of Present Illness History of Present Illness Date of Service: 10/17/24 Chief complaint: SBO Narrative: Dhiraj Huntley is a 74 year old male with a history of stage IV CKD, recurrent SBO, cholecystectomy, splenectomy, colectomy, small-bowel resection who presented to the emergency room with abdominal pain nausea and vomiting that started a few hours prior. Patient states this feels like his previous small-bowel obstructions. Denies fever, chills. Pain was located in the periumbilical and epigastric area. Patient had CT in the ED showing a distended loop of bowel and proximal small bowel dilation with air-fluid levels. NG tube was placed in the ED. patient now feeling better pain is improving, abdomen is less distended, currently not nauseous, no recent episodes of vomiting. He continues to have output via ostomy Review of Systems Review of Systems: Yes all other systems are reviewed and are negative PMFSH Past Medical History Medical History Duodenal ulcer Severe anemia Hyperlipemia Pancreatitis CKD (chronic kidney disease) HIV (human immunodeficiency virus infection) Chronic hepatitis Chronic use of nonprescription opiate drugs Ulcerative colitis Diabetes mellitus HTN (hypertension), benign Surgical History Surgical History H/O exploratory laparotomy (12/20/22) Hx of cholecystectomy Hx of splenectomy Status post right hip replacement History of total left knee replacement (TKR) H/O colectomy Social History Social History Household Members: None Housing: Apartment Do you presently have visiting nurse or other home services: No Alcohol intake: never Comment: room not yet assigned Patient Tobacco Use Status: Former Tobacco user Tobacco use type: Cigarette Advance Directives Date on File: 06/07/21 service: No Current occupational status: disabled Meds Allergies Allergy/AdvReac Type Severity Reaction Status Date / Time ampicillin (AMPICILLIN) Allergy Mild HIVES Verified 10/16/24 22:05 aspirin (ASPIRIN) Allergy Unknown RASH Verified 10/16/24 22:05 Active Medications: Current Medications Calcium Carbonate (Calcium Carbonate 750 Mg Tab.Chew) 750 mg PO Q4H PRN PRN Reason: Heartburn Dextrose (Dextrose 50 % 25 Gm/50 Ml Syringe) 25 gm IVPUSH Q15M PRN; Protocol PRN Reason: per Hypoglycemia Standing Ord. Enoxaparin Sodium (Enoxaparin Sodium 30 Mg/0.3 Ml Syringe) 30 mg SUBCUT Q24H [facility] Last Admin: 10/17/24 08:31 Dose: 30 mg Glucose (Glucose Gel 15 Gm Gel..Gram.) 15 gm PO Q15M PRN; Protocol PRN Reason: per Hypoglycemia Standing Ord. Hydralazine HCl (Hydralazine Hcl 20 Mg/Ml Vial) 5 mg IVPUSH Q4H PRN; Protocol PRN Reason: SBP > 160 Last Admin: 10/17/24 02:48 Dose: 5 mg Hydromorphone HCl (Hydromorphone Hcl 0.5 Mg/0.5 Ml Syringe) 0.5 mg IVPUSH Q3H PRN; Protocol PRN Reason: Pain, Severe (Pain Scale 7-10) Last Admin: 10/17/24 06:12 Dose: 0.5 mg Acetaminophen (Ofirmev) 1,000 mg in 100 mls @ 400 mls/hr IV Q6H PRN PRN Reason: Pain, Mild (Pain Scale 1-3) Lactated Ringer's (Lr) 1,000 mls @ 100 mls/hr IVCONT .Q10H [facility] Last Admin: 10/17/24 00:32 Dose: 100 mls/hr Insulin Human Lispro (Insulin Lispro 100 Unit/Ml 3 Ml Vial) 0 unit SUBCUT RQ6H RASHAD; Protocol Last Admin: 10/17/24 03:08 Dose: Not Given Melatonin (Melatonin 3 Mg Tablet) 6 mg PO BEDTIME PRN PRN Reason: Insomnia Ondansetron HCl (Ondansetron Hcl 4 Mg/2 Ml Vial) 4 mg IVPUSH Q8H PRN PRN Reason: Nausea and Vomiting Oxycodone HCl (Oxycodone Hcl Immed Release 5 Mg Tablet) 5 mg PO Q6H PRN PRN Reason: Pain, Moderate(Pain Scale 4-6) Last Admin: 10/17/24 08:51 Dose: 5 mg Sodium Chloride (0.9 % Sodium Chloride Flush 3 Ml Syringe) 3 ml IVFLUSH QSHIFT [facility] Last Admin: 10/17/24 08:32 Dose: 3 ml Home Medications ?Medication ?Instructions ?Recorded ?Confirmed ?Last Taken ?Type albuterol sulfate 90 mcg/actuation 2 puff inhalation QID PRN 06/06/21 04/26/24 2 Days Ago History aerosol inhaler Respiratory Distress ~12/16/22 buprenorphine 8 mg-naloxone 2 mg 2 film sublingual DAILY 06/06/21 04/26/24 04/26/24 09:00 History sublingual film cetirizine 10 mg tablet 10 mg PO DAILY PRN Allergic 06/06/21 04/26/24 2 Days Ago History Symptoms ~12/16/22 gabapentin 600 mg tablet 600 mg PO BID 06/06/21 04/26/24 04/26/24 09:00 History pravastatin 40 mg tablet 40 mg PO BEDTIME 06/06/21 04/26/24 2 Days Ago History ~12/16/22 trazodone 100 mg tablet 200 mg PO DAILY@1700 PRN Insomnia 06/06/21 04/26/24 2 Days Ago History ~12/16/22 amlodipine 5 mg tablet 5 mg PO DAILY 12/18/22 04/26/24 04/26/24 09:00 History dolutegravir 50 mg-lamivudine 300 1 tab PO DAILY 12/18/22 04/26/24 04/26/24 09:00 History mg tablet (Dovato) dulaglutide 0.75 mg/0.5 mL 0.75 mg subcut MO@0900 12/18/22 04/26/24 04/21/24 History subcutaneous pen injector (Trulicity) acetaminophen 500 mg tablet 1,000 mg PO Q4H PRN Pain 04/26/24 04/26/24 Unknown History buprenorphine 8 mg-naloxone 2 mg 1 film sublingual BEDTIME 04/26/24 04/26/24 Unknown History sublingual film empagliflozin 10 mg tablet 10 mg PO DAILY 04/26/24 04/26/24 04/26/24 09:00 History (Jardiance) escitalopram oxalate 10 mg tablet 10 mg PO DAILY 04/26/24 04/26/24 04/26/24 09:00 History furosemide 80 mg tablet 80 mg PO BID@0900,1700 04/26/24 04/26/24 04/26/24 09:00 History methylcellulose (laxative) 500 mg 500 mg PO BID 04/26/24 04/26/24 04/26/24 09:00 History tablet (Fiber Therapy (methylcellulose)) omeprazole 40 mg capsule,delayed 40 mg PO BID@0630,1630 04/26/24 04/26/24 04/26/24 09:00 History release tamsulosin 0.4 mg capsule 0.4 mg PO DAILY 04/26/24 04/26/24 04/26/24 09:00 History carbidopa 25 mg-levodopa 100 mg 1.5 tab PO DAILY 10/17/24 Unknown History tablet Physical Exam Vital Signs: Vital Signs: Last Vital Signs Temp 96.8 F 10/17/24 08:00 Pulse 67 10/17/24 08:00 Resp 18 10/17/24 08:00 BP 165/71 H 10/17/24 08:00 Pulse Ox 95 10/17/24 08:00 O2 Del Method Room Air 10/17/24 08:00 BMI result Body Mass Index 32.5 Const: General: comfortable and no acute distress Orientation/consciousness: patient oriented x3 GI: Other: Ostomy present, functioning adequately. NG tube in place about 150 cc yellow fluid. Inspection: No distended Palpation (GI): Soft to palpation, not firm, Tenderness to palpation present (GI) (Mild epigastric), no guarding and not rigid Percussion: Yes normal to percussion Neuro: General: patient oriented x3 Results Results Labs: Short CBC 10/16/24 10/17/24 Range/Units 21:43 06:53 WBC 15.3 H 16.3 H (4.8-10.8) X10*3/uL Hgb 14.0 14.9 (14.0-18.0) g/dl Hct 41.3 L 44.2 (42.0-52.0) % Plt Count 376 384 (160-400) X10*3/uL BMP 10/16/24 10/17/24 21:43 06:53 Sodium 138 140 Potassium 5.1 4.6 Chloride 99 101 Carbon Dioxide 25 27 BUN 78 H 67 H Creatinine 3.91 H 3.38 H Calcium 9.5 D 9.3 Liver Function 10/16/24 Range/Units 21:43 Total Bilirubin 0.2 (0.0-1.0) mg/dL AST 26 (5-37) U/L ALT 11 (0-40) U/L Alkaline Phosphatase 100 (39-117) U/L Albumin 4.5 (3.5-5.0) g/dL Urine 10/16/24 Range/Units 22:55 Urine Color Yellow Urine Appearance Clear Urine pH 5.5 (5.0-9.0) Ur Specific [place] 1.010 (1.005-1.025) Urine Protein Negative (Neg-Trace) mg/dL Urine Glucose (UA) 250 H (Negative) mg/dL Assessment and Plan (1) Partial small bowel obstruction: Status: Acute Plan 74 year old male with a history of stage IV CKD, recurrent SBO, cholecystectomy, splenectomy, colectomy, small-bowel resection found to have postural small-bowel obstruction on imaging. Patient had NG tube placed in ED, tolerating well. Abdomen is less distended now. Pain, Nausea and vomiting improved. On exam he is still mildly tender in the epigastric area. NG tube output about 150 cc. He continues to pass stool the ostomy. We will clamp NG and re-evaluate in 4 hours if output less than 100 cc we will remove and trochlear diet. Clamp NG this morning, output less than 100 we will remove NG Serial abdominal exams NPO for now, if able to remove NG we will try a clear diet Pain control as needed Quality Stroke Does the patient have a stroke diagnosis?: No VTE Prior VTE?: No VTE Risk Level:: Surgical - moderate VTE Device Contraindication: N/A - Device Ordered VTE Drug Contraindication: N/A - Med Ordered Procedures Date of Service Date of Service: 10/17/24
--- NOTE | 2024-10-17 09:36 | MHC.CM.PN ---
[T LIVES ALONE HAS BOTTLE TESTER AND MOW HE WILL ARRANGE OWN TRANSPORTATION HOME DC PLAN HOME WITH BOTTLE TESTER
--- NOTE | 2024-10-17 10:50 | PHA.MEDREC ---
Addendum entered by Sathya Aguila [facility] 10/17/24 11:24: MED REC CHECKED PER [facility] Original Note: Pharmacy Consult ? Medication Reconciliation Pharmacy has completed the medication reconciliation. Spoke with pt and he confirmed his medications. Pt confirmed his Carbidopa-Levodopa taking 1/2 tab TID. He confirmed his Trulicity once a week on Mondays and states he took it this past Sunday.
[2024-10-17 11:22] LABS: Glucose, Whole Blood 117 mg/dL (60-115)
[2024-10-17 15:35] LABS: Glucose, Whole Blood 101 mg/dL (60-115)
--- NOTE | 2024-10-17 18:01 | PC.NURSE ---
NG clamped per order. Residual 20cc. NG removed per order. Pt tolerating sips and chips. Colostomy emptied x2 for liquid brown then mushy brown/green stool.
[2024-10-17 18:09] LABS: Glucose, Whole Blood 85 mg/dL (60-115)
[2024-10-18] VITALS (10 sets, daily range): BP systolic 124–172; BP diastolic 58–79; PULSE 64–79; RESP 16–18; TEMP 36.3–37.6; O2SAT 90–94
[2024-10-18 00:22] LABS: Glucose, Whole Blood 106 mg/dL (60-115)
[2024-10-18] MEDS: hydrALAZINE HCl 20 MG/ML VIAL 5 MG IVPUSH (02:53)
--- NOTE | 2024-10-18 03:49 | PC.NURSE ---
Pt BP-172/79 p-62 medicated with hydralazine 5mg IV at 0300.Repeat BP-158/73 p-67 at 0345.
[2024-10-18] MEDS: Lactated Ringers 1,000 ML 100 ML IVCONT ×2 (04:57→15:20)
[2024-10-18 06:12] LABS: Glucose, Whole Blood 127 mg/dL (60-115)
[2024-10-18] MEDS: HYDROmorphone HCl 0.5 MG/0.5 ML SYRINGE IVPUSH (06:15)
--- NOTE | 2024-10-18 07:34 | P.PNIM_ITS ---
Subjective Subjective Date of Service: 10/18/24 Interval History: Pt has been passing gas and stool through stoma since yesterday evening Denies N/V/abd pain Has been tolerating liquid diet Denies any acute medical complaints Review of Systems Review of Systems: Yes all other systems are reviewed and are negative Physical Exam 2 Vital Signs: Vital Signs: Last Vital Signs Temp 98.3 F 10/18/24 07:20 Pulse 69 10/18/24 07:20 Resp 16 10/18/24 07:20 BP 170/75 H 10/18/24 07:20 Pulse Ox 90 L 10/18/24 07:20 O2 Del Method Room Air 10/18/24 07:20 O2 Flow Rate 2 10/17/24 13:47 BMI result Body Mass Index 28.3 General: AOx3, no acute distress Resp: CTA bilaterally CVS: S1, S2, RRR GI: +BS, NT, no distention. Stoma with small amount of stool in it Skin: Warm, dry Neuro: Cranial nerves II-XII grossly intact bilaterally. Motor grossly intact bilaterally Extremities: No edema Psych: Appropriate affect Objective Data Active Medications Albuterol Sulfate (Albuterol Sulfate 90 Mcg 8 Gm Inhaler) 2 puff INHALE QID PRN PRN Reason: Respiratory Distress Amlodipine Besylate (Amlodipine Besylate 5 Mg Tablet) 5 mg PO DAILY [facility]; Protocol Calcium Carbonate (Calcium Carbonate 750 Mg Tab.Chew) 750 mg PO Q4H PRN PRN Reason: Heartburn Carbidopa/Levodopa (Carbidopa/Levodopa 25/100 Tablet) 0.5 tab PO TID [facility] Dextrose (Dextrose 50 % 25 Gm/50 Ml Syringe) 25 gm IVPUSH Q15M PRN; Protocol PRN Reason: per Hypoglycemia Standing Ord. Enoxaparin Sodium (Enoxaparin Sodium 30 Mg/0.3 Ml Syringe) 30 mg SUBCUT Q24H [facility] Last Admin: 10/17/24 08:31 Dose: 30 mg Documented By: ALBERT Escitalopram Oxalate (Escitalopram Oxalate 10 Mg Tablet) 10 mg PO DAILY [facility] Gabapentin (Gabapentin 600 Mg Tablet) 600 mg PO BID [facility] Glucose (Glucose Gel 15 Gm Gel..Gram.) 15 gm PO Q15M PRN; Protocol PRN Reason: per Hypoglycemia Standing Ord. Hydralazine HCl (Hydralazine Hcl 20 Mg/Ml Vial) 5 mg IVPUSH Q4H PRN; Protocol PRN Reason: SBP > 160 Last Admin: 10/18/24 02:53 Dose: 5 mg Documented By: SARAHI Hydromorphone HCl (Hydromorphone Hcl 0.5 Mg/0.5 Ml Syringe) 0.5 mg IVPUSH Q3H PRN; Protocol PRN Reason: Pain, Severe (Pain Scale 7-10) Last Admin: 10/18/24 06:15 Dose: 0.5 mg Documented By: SARAHI Acetaminophen (Ofirmev) 1,000 mg in 100 mls @ 400 mls/hr IV Q6H PRN PRN Reason: Pain, Mild (Pain Scale 1-3) Lactated Ringer's (Lr) 1,000 mls @ 100 mls/hr IVCONT .Q10H [facility] Last Admin: 10/18/24 04:57 Dose: 100 mls/hr Documented By: SARAHI Insulin Human Lispro (Insulin Lispro 100 Unit/Ml 3 Ml Vial) 0 unit SUBCUT RQ6H [facility]; Protocol Last Admin: 10/18/24 06:10 Dose: Not Given Documented By: SARAHI Non-Admin Reason: No Insulin Coverage Melatonin (Melatonin 3 Mg Tablet) 6 mg PO BEDTIME PRN PRN Reason: Insomnia Non-Formulary Medication (Dolutegravir-Lamivudine [Dovato]) 1 tab PO DAILY [facility] Ondansetron HCl (Ondansetron Hcl 4 Mg/2 Ml Vial) 4 mg IVPUSH Q8H PRN PRN Reason: Nausea and Vomiting Oxycodone HCl (Oxycodone Hcl Immed Release 5 Mg Tablet) 5 mg PO Q6H PRN PRN Reason: Pain, Moderate(Pain Scale 4-6) Last Admin: 10/17/24 22:49 Dose: 5 mg Documented By: SARAHI Sodium Chloride (0.9 % Sodium Chloride Flush 3 Ml Syringe) 3 ml IVFLUSH QSHIFT [facility] Last Admin: 10/18/24 07:03 Dose: Not Given Documented By: BRUCE Non-Admin Reason: IV Running Tamsulosin HCl (Tamsulosin Hcl 0.4 Mg Capsule) 0.4 mg PO DAILY [facility] Labs 10/17/24 06:53 10/17/24 06:53 Labs: Laboratory Results - last 24 hr 10/17/24 10/17/24 10/17/24 11:18 15:12 18:03 POC Glucose 117 H 101 85 10/18/24 10/18/24 00:16 06:04 POC Glucose 106 127 H Assessment and Plan (1) Partial small bowel obstruction: Status: Acute Plan Patient is a 74-year-old male with a past medical history significant for type 2 diabetes, hypertension, substance use disorder on buprenorphine, HIV, GERD, HLD, CKD 4, pancreatitis, history small-bowel obstruction and ulcerative colitis, who presented to the ED with abdominal pain, nausea and vomiting with change to color and output in his colostomy bag. Hospitalist consult placed for medical management, patient admitted by surgery for partial small-bowel obstruction. Partial small bowel obstruction Appears resolved, now passing gas and stool in ostomy Diet advanced Plan per surgery MARY JO on CKD 4 Improving: creatinine 3.38 Given 2 L IV fluids in ED and on LR 100 mL/HR Continue to hold lasix Avoid nephrotoxins when possible Monitor BMP Type 2 diabetes Hold p.o. meds Sliding scale insulin HTN BP better controlled with SBO resolution Continue amlodipine HIV Continue Dovato Parkinsonism Continue carbidopa levodopa PABLO Continue buprenorphine when appropriate GERD Continue omeprazole HLD Continue statin Full code VTE prophy: Lovenox Will continue to follow. Please contact the medical team if any questions or concerns. Quality Stroke Does the patient have a stroke diagnosis?: No VTE Prior VTE?: No VTE Risk Level:: Surgical - moderate VTE Device Contraindication: N/A - Device Ordered VTE Drug Contraindication: N/A - Med Ordered
[2024-10-18] MEDS: Gabapentin 600 MG TABLET PO ×2 (08:25→20:42)
[2024-10-18] MEDS: oxyCODONE HCl Immed Release 5 MG TABLET PO ×2 (08:25→20:41)
[2024-10-18] MEDS: Carbidopa/Levodopa 25/100 TABLET 0.5 TAB PO ×3 (08:25→20:42)
[2024-10-18] MEDS: lamiVUDine 150 MG TABLET PO (08:26)
[2024-10-18] MEDS: Enoxaparin Sodium 30 MG/0.3 ML SYRINGE SUBCUT (08:26)
[2024-10-18] MEDS: amLODIPine Besylate 5 MG TABLET PO (08:26)
[2024-10-18] MEDS: Escitalopram Oxalate 10 MG TABLET PO (08:26)
--- NOTE | 2024-10-18 08:59 | PM.PNGS ---
Subjective Subjective Date of Service: 10/19/24 Interval history: feels well Has had good output from his stoma Denies any pain Tolerating liquids well Physical Exam Vital Signs: Vital Signs: Last Vital Signs Temp 98.3 F 10/18/24 07:20 Pulse 69 10/18/24 07:20 Resp 16 10/18/24 07:20 BP 170/75 H 10/18/24 08:26 Pulse Ox 90 L 10/18/24 07:20 O2 Del Method Room Air 10/18/24 07:20 O2 Flow Rate 2 10/17/24 13:47 BMI result Body Mass Index 28.3 Const: General: comfortable and no acute distress Resp: Effort & Inspection: normal respiratory effort Cardio: Rate: regular rate GI: Other: Stoma with good output, appliance currently being changed Palpation (GI): Soft to palpation, not firm, nontender and no guarding Objective Data Active Medications Albuterol Sulfate (Albuterol Sulfate 90 Mcg 8 Gm Inhaler) 2 puff INHALE QID PRN PRN Reason: Respiratory Distress Amlodipine Besylate (Amlodipine Besylate 5 Mg Tablet) 5 mg PO DAILY [facility]; Protocol Last Admin: 10/18/24 08:26 Dose: 5 mg Documented By: BRUCE Buprenorphine/Naloxone (Buprenorphine/Naloxone 8/2 Mg Film) 2 film SUBLINGUAL DAILY [facility] Buprenorphine/Naloxone (Buprenorphine/Naloxone 8/2 Mg Film) 1 film SUBLINGUAL BEDTIME [facility] Calcium Carbonate (Calcium Carbonate 750 Mg Tab.Chew) 750 mg PO Q4H PRN PRN Reason: Heartburn Carbidopa/Levodopa (Carbidopa/Levodopa 25/100 Tablet) 0.5 tab PO TID [facility] Last Admin: 10/18/24 08:25 Dose: 0.5 tab Documented By: BRUCE Dextrose (Dextrose 50 % 25 Gm/50 Ml Syringe) 25 gm IVPUSH Q15M PRN; Protocol PRN Reason: per Hypoglycemia Standing Ord. Dolutegravir Sodium (Dolutegravir Sodium 50 Mg Tablet) 50 mg PO DAILY [facility] Enoxaparin Sodium (Enoxaparin Sodium 30 Mg/0.3 Ml Syringe) 30 mg SUBCUT Q24H [facility] Last Admin: 10/18/24 08:26 Dose: 30 mg Documented By: BRUCE Escitalopram Oxalate (Escitalopram Oxalate 10 Mg Tablet) 10 mg PO DAILY [facility] Last Admin: 10/18/24 08:26 Dose: 10 mg Documented By: BRUCE Gabapentin (Gabapentin 600 Mg Tablet) 600 mg PO BID [facility] Last Admin: 10/18/24 08:25 Dose: 600 mg Documented By: BRUCE Glucose (Glucose Gel 15 Gm Gel..Gram.) 15 gm PO Q15M PRN; Protocol PRN Reason: per Hypoglycemia Standing Ord. Hydralazine HCl (Hydralazine Hcl 20 Mg/Ml Vial) 5 mg IVPUSH Q4H PRN; Protocol PRN Reason: SBP > 160 Last Admin: 10/18/24 02:53 Dose: 5 mg Documented By: SARAHI Hydromorphone HCl (Hydromorphone Hcl 0.5 Mg/0.5 Ml Syringe) 0.5 mg IVPUSH Q3H PRN; Protocol PRN Reason: Pain, Severe (Pain Scale 7-10) Last Admin: 10/18/24 06:15 Dose: 0.5 mg Documented By: SARAHI Acetaminophen (Ofirmev) 1,000 mg in 100 mls @ 400 mls/hr IV Q6H PRN PRN Reason: Pain, Mild (Pain Scale 1-3) Lactated Ringer's (Lr) 1,000 mls @ 100 mls/hr IVCONT .Q10H [facility] Last Admin: 10/18/24 04:57 Dose: 100 mls/hr Documented By: SARAHI Insulin Human Lispro (Insulin Lispro 100 Unit/Ml 3 Ml Vial) 0 unit SUBCUT RQ6H [facility]; Protocol Last Admin: 10/18/24 06:10 Dose: Not Given Documented By: SARAHI Non-Admin Reason: No Insulin Coverage Lamivudine (Lamivudine 150 Mg Tablet) 150 mg PO DAILY [facility] Last Admin: 10/18/24 08:26 Dose: 150 mg Documented By: BRUCE Melatonin (Melatonin 3 Mg Tablet) 6 mg PO BEDTIME PRN PRN Reason: Insomnia Ondansetron HCl (Ondansetron Hcl 4 Mg/2 Ml Vial) 4 mg IVPUSH Q8H PRN PRN Reason: Nausea and Vomiting Oxycodone HCl (Oxycodone Hcl Immed Release 5 Mg Tablet) 5 mg PO Q6H PRN PRN Reason: Pain, Moderate(Pain Scale 4-6) Last Admin: 10/18/24 08:25 Dose: 5 mg Documented By: BRUCE Sodium Chloride (0.9 % Sodium Chloride Flush 3 Ml Syringe) 3 ml IVFLUSH QSHIFT [facility] Last Admin: 10/18/24 07:03 Dose: Not Given Documented By: BRUCE Non-Admin Reason: IV Running Tamsulosin HCl (Tamsulosin Hcl 0.4 Mg Capsule) 0.4 mg PO DAILY@1730 [facility] Labs 10/17/24 06:53 10/19/24 07:32 Labs: Laboratory Results - last 24 hr 10/17/24 10/17/24 10/17/24 11:18 15:12 18:03 POC Glucose 117 H 101 85 10/18/24 10/18/24 00:16 06:04 POC Glucose 106 127 H Procedures Date of Service Date of Service: 10/19/24 Progress Note: A&P Assessment and plan (1) Partial small bowel obstruction: Status: Acute Assessment and Plan: Has had good output from his stoma Abdomen is soft and benign Clinically doing well Tolerating clear liquids Diet as tolerated BUN creatinine still elevated Continue IV fluids Discussed with the hospitalist service Time Spent With Patient Time: Total time managing care of this patient today ____ minutes. Quality Stroke Does the patient have a stroke diagnosis?: No VTE Prior VTE?: No VTE Risk Level:: Surgical - moderate VTE Device Contraindication: N/A - Device Ordered VTE Drug Contraindication: N/A - Med Ordered
[2024-10-18] MEDS: Buprenorphine/Naloxone 8/2 mg FILM 2 FILM SUBLINGUAL (09:51)
[2024-10-18] MEDS: Dolutegravir Sodium 50 MG TABLET PO (09:51)
[2024-10-18 12:31] LABS: Glucose, Whole Blood 240 mg/dL (60-115)
[2024-10-18] MEDS: Insulin Lispro 100 UNIT/ML 3 ML VIAL SUBCUT (12:32)
[2024-10-18 16:25] LABS: Glucose, Whole Blood 109 mg/dL (60-115)
[2024-10-18] MEDS: Tamsulosin HCL 0.4 MG CAPSULE PO (16:54)
[2024-10-18 20:22] LABS: Glucose, Whole Blood 134 mg/dL (60-115)
[2024-10-18] MEDS: Pravastatin Sodium 40 MG TABLET PO (20:42)
[2024-10-18] MEDS: Buprenorphine/Naloxone 8/2 mg FILM 1 FILM SUBLINGUAL (20:42)
[2024-10-19] MEDS: traZODone HCL 100 MG TABLET 200 MG PO (00:27)
[2024-10-19 03:15] VITALS: BP 163/79; PULSE 51; RESP 18; TEMP 36.7; O2SAT 93
[2024-10-19] MEDS: oxyCODONE HCl Immed Release 5 MG TABLET PO ×2 (05:12→12:37)
[2024-10-19] MEDS: Omeprazole 40 MG CAPSULE.DR PO (05:12)
[2024-10-19 07:42] VITALS: BP 157/69; PULSE 53; RESP 16; TEMP 36.9; O2SAT 92
[2024-10-19 07:52] LABS: Glucose, Whole Blood 111 mg/dL (60-115)
[2024-10-19] MEDS: 0.9 % Sodium Chloride Flush 3 ML SYRINGE IVFLUSH (08:00)
[2024-10-19 08:01] VITALS: BP 157/69
[2024-10-19] MEDS: lamiVUDine 150 MG TABLET PO (08:01)
[2024-10-19] MEDS: Enoxaparin Sodium 30 MG/0.3 ML SYRINGE SUBCUT (08:01)
[2024-10-19] MEDS: Carbidopa/Levodopa 25/100 TABLET 0.5 TAB PO (08:01)
[2024-10-19] MEDS: amLODIPine Besylate 5 MG TABLET PO (08:01)
[2024-10-19] MEDS: Escitalopram Oxalate 10 MG TABLET PO (08:01)
[2024-10-19] MEDS: Dolutegravir Sodium 50 MG TABLET PO (08:01)
[2024-10-19] MEDS: Buprenorphine/Naloxone 8/2 mg FILM 2 FILM SUBLINGUAL (08:01)
[2024-10-19] MEDS: Gabapentin 600 MG TABLET PO (08:01)
[2024-10-19 08:03] LABS: Anion Gap 13 (12-20); Blood Urea Nitrogen 46 mg/dL (9-16); Calcium 9.2 mg/dL (8.4-10.2); Carbon Dioxide 25 mmol/L (22-29); Chloride 110 mmol/L (96-108); Creatinine Clr Calc Pharmacy 32.7; Estimated Glomerular Filt Rate 33; Glucose Random 125 mg/dL (60-115); Potassium 4.6 mmol/L (3.3-5.1); Sodium 143 mmol/L (135-145)
--- NOTE | 2024-10-19 09:08 | P.PNIM_ITS ---
Subjective Subjective Date of Service: 10/19/24 Interval History: Pt seen and evaluated at bedside where he is resting comfortably in bed Overall doing well and feeling back to baseline Has been tolerating solid diet with copious amounts of stool in colostomy bag Denies nausea, vomiting, abdominal pain Pt has no acute medical complaints Feels ready to be sent home Morning labs show resolution of MARY JO with creatinine normalized Review of Systems Pt has no acute medical complaints Physical Exam 2 Vital Signs: Vital Signs: Last Vital Signs Temp 98.4 F 10/19/24 07:42 Pulse 53 10/19/24 07:42 Resp 16 10/19/24 07:42 BP 157/69 H 10/19/24 08:01 Pulse Ox 92 10/19/24 07:42 O2 Del Method Room Air 10/19/24 07:42 O2 Flow Rate 2 10/17/24 13:47 BMI result Body Mass Index 28.3 General: AOx3, no acute distress Resp: CTA bilaterally CVS: S1, S2, RRR GI: +BS, NT, no distention. Significant amount of semi formed stool in colostomy bag Skin: Warm, dry Neuro: Cranial nerves II-XII grossly intact bilaterally. Motor grossly intact bilaterally Extremities: No edema Psych: Appropriate affect Objective Data Active Medications Albuterol Sulfate (Albuterol Sulfate 90 Mcg 8 Gm Inhaler) 2 puff INHALE QID PRN PRN Reason: Respiratory Distress Amlodipine Besylate (Amlodipine Besylate 5 Mg Tablet) 5 mg PO DAILY [facility]; Protocol Last Admin: 10/19/24 08:01 Dose: 5 mg Documented By: BRUCE Buprenorphine/Naloxone (Buprenorphine/Naloxone 8/2 Mg Film) 2 film SUBLINGUAL DAILY [facility] Last Admin: 10/19/24 08:01 Dose: 2 film Documented By: BRUCE Buprenorphine/Naloxone (Buprenorphine/Naloxone 8/2 Mg Film) 1 film SUBLINGUAL BEDTIME [facility] Last Admin: 10/18/24 20:42 Dose: 1 film Documented By: SARAHI Calcium Carbonate (Calcium Carbonate 750 Mg Tab.Chew) 750 mg PO Q4H PRN PRN Reason: Heartburn Carbidopa/Levodopa (Carbidopa/Levodopa 25/100 Tablet) 0.5 tab PO TID [facility] Last Admin: 10/19/24 08:01 Dose: 0.5 tab Documented By: BRUCE Dextrose (Dextrose 50 % 25 Gm/50 Ml Syringe) 25 gm IVPUSH Q15M PRN; Protocol PRN Reason: per Hypoglycemia Standing Ord. Dolutegravir Sodium (Dolutegravir Sodium 50 Mg Tablet) 50 mg PO DAILY [facility] Last Admin: 10/19/24 08:01 Dose: 50 mg Documented By: BRUCE Enoxaparin Sodium (Enoxaparin Sodium 30 Mg/0.3 Ml Syringe) 30 mg SUBCUT Q24H [facility] Last Admin: 10/19/24 08:01 Dose: 30 mg Documented By: BRUCE Escitalopram Oxalate (Escitalopram Oxalate 10 Mg Tablet) 10 mg PO DAILY [facility] Last Admin: 10/19/24 08:01 Dose: 10 mg Documented By: BRUCE Gabapentin (Gabapentin 600 Mg Tablet) 600 mg PO BID [facility] Last Admin: 10/19/24 08:01 Dose: 600 mg Documented By: BRUCE Hydralazine HCl (Hydralazine Hcl 20 Mg/Ml Vial) 5 mg IVPUSH Q4H PRN; Protocol PRN Reason: SBP > 160 Last Admin: 10/18/24 02:53 Dose: 5 mg Documented By: SARAHI Hydromorphone HCl (Hydromorphone Hcl 0.5 Mg/0.5 Ml Syringe) 0.5 mg IVPUSH Q3H PRN; Protocol PRN Reason: Pain, Severe (Pain Scale 7-10) Last Admin: 10/18/24 06:15 Dose: 0.5 mg Documented By: SARAHI Acetaminophen (Ofirmev) 1,000 mg in 100 mls @ 400 mls/hr IV Q6H PRN PRN Reason: Pain, Mild (Pain Scale 1-3) Insulin Human Lispro (Insulin Lispro 100 Unit/Ml 3 Ml Vial) 0 unit SUBCUT QIDACHS [facility]; Protocol Last Admin: 10/19/24 07:53 Dose: Not Given Documented By: BRUCE Non-Admin Reason: No Insulin Coverage Lamivudine (Lamivudine 150 Mg Tablet) 150 mg PO DAILY [facility] Last Admin: 10/19/24 08:01 Dose: 150 mg Documented By: BRUCE Melatonin (Melatonin 3 Mg Tablet) 6 mg PO BEDTIME PRN PRN Reason: Insomnia Omeprazole (Omeprazole 40 Mg Capsule.) 40 mg PO BID@0630,1630 [facility] Last Admin: 10/19/24 05:12 Dose: 40 mg Documented By: SARAHI Ondansetron HCl (Ondansetron Hcl 4 Mg/2 Ml Vial) 4 mg IVPUSH Q8H PRN PRN Reason: Nausea and Vomiting Oxycodone HCl (Oxycodone Hcl Immed Release 5 Mg Tablet) 5 mg PO Q6H PRN PRN Reason: Pain, Moderate(Pain Scale 4-6) Last Admin: 10/19/24 05:12 Dose: 5 mg Documented By: SARAHI Pravastatin Sodium (Pravastatin Sodium 40 Mg Tablet) 40 mg PO BEDTIME [facility] Last Admin: 10/18/24 20:42 Dose: 40 mg Documented By: SARAHI Sodium Chloride (0.9 % Sodium Chloride Flush 3 Ml Syringe) 3 ml IVFLUSH QSHIFT [facility] Last Admin: 10/19/24 08:00 Dose: 3 ml Documented By: BRUCE Tamsulosin HCl (Tamsulosin Hcl 0.4 Mg Capsule) 0.4 mg PO DAILY@1730 [facility] Last Admin: 10/18/24 16:54 Dose: 0.4 mg Documented By: BRUCE Trazodone HCl (Trazodone Hcl 100 Mg Tablet) 200 mg PO DAILY@1700 PRN PRN Reason: Insomnia Last Admin: 10/19/24 00:27 Dose: 200 mg Documented By: SARAHI Labs 10/17/24 06:53 10/19/24 07:32 Labs: Laboratory Results - last 24 hr 10/18/24 10/18/24 10/18/24 12:23 16:15 20:13 Anion Gap Estim Creat Clear Calc Estimated GFR POC Glucose 240 H 109 134 H Random Glucose Calcium 10/19/24 10/19/24 07:32 07:40 Anion Gap 13 Estim Creat Clear Calc 32.7 Estimated GFR 33 POC Glucose 111 Random Glucose 125 H Calcium 9.2 Assessment and Plan (1) Partial small bowel obstruction: Status: Acute Plan Patient is a 74-year-old male with a past medical history significant for type 2 diabetes, hypertension, substance use disorder on buprenorphine, HIV, GERD, HLD, CKD 4, pancreatitis, history small-bowel obstruction and ulcerative colitis, who presented to the ED with abdominal pain, nausea and vomiting with change to color and output in his colostomy bag. Hospitalist consult placed for medical management, patient admitted by surgery for partial small-bowel obstruction. Partial small bowel obstruction Resolved, now passing gas and stool in ostomy Diet advanced, tolerating full diet Plan per surgery MARY JO on CKD 4 Resolved: creatinine 2.00, now back to baseline Multifactorial: Secondary to partial SBO, N/V, reduced p.o. intake, and continued diuretic use Lasix can be resumed on discharge [id number] type 2 diabetes Has been on Sliding scale insulin Resume p.o. meds upon discharge HTN BP better controlled with SBO resolution, though still elevated this morning Continue amlodipine and restart Lasix HIV Continue Dovato Parkinsonism Continue carbidopa levodopa PABLO Continue buprenorphine when appropriate GERD Continue omeprazole HLD Continue statin Full code VTE prophy: Lovenox Will continue to follow. Please contact the medical team if any questions or concerns. Quality Stroke Does the patient have a stroke diagnosis?: No VTE Prior VTE?: No VTE Risk Level:: Surgical - moderate VTE Device Contraindication: N/A - Device Ordered VTE Drug Contraindication: N/A - Med Ordered
--- NOTE | 2024-10-19 09:44 | PM.PNGS ---
Subjective Subjective Date of Service: 10/19/24 Interval history: Tolerating regular diet Passing flatus and stool via the stoma Denies any abdominal pain Denies nausea or vomiting Physical Exam Vital Signs: Vital Signs: Last Vital Signs Temp 98.4 F 10/19/24 07:42 Pulse 53 10/19/24 07:42 Resp 16 10/19/24 07:42 BP 157/69 H 10/19/24 08:01 Pulse Ox 92 10/19/24 07:42 O2 Del Method Room Air 10/19/24 07:42 O2 Flow Rate 2 10/17/24 13:47 BMI result Body Mass Index 28.3 Const: General: comfortable and no acute distress Resp: Effort & Inspection: normal respiratory effort Cardio: Rate: regular rate GI: Other: Stoma with good output, stool and gas Palpation (GI): Soft to palpation, not firm, nontender and no guarding Objective Data Active Medications Albuterol Sulfate (Albuterol Sulfate 90 Mcg 8 Gm Inhaler) 2 puff INHALE QID PRN PRN Reason: Respiratory Distress Amlodipine Besylate (Amlodipine Besylate 5 Mg Tablet) 5 mg PO DAILY [facility]; Protocol Last Admin: 10/19/24 08:01 Dose: 5 mg Documented By: BRUCE Buprenorphine/Naloxone (Buprenorphine/Naloxone 8/2 Mg Film) 2 film SUBLINGUAL DAILY [facility] Last Admin: 10/19/24 08:01 Dose: 2 film Documented By: BRUCE Buprenorphine/Naloxone (Buprenorphine/Naloxone 8/2 Mg Film) 1 film SUBLINGUAL BEDTIME [facility] Last Admin: 10/18/24 20:42 Dose: 1 film Documented By: SARAHI Calcium Carbonate (Calcium Carbonate 750 Mg Tab.Chew) 750 mg PO Q4H PRN PRN Reason: Heartburn Carbidopa/Levodopa (Carbidopa/Levodopa 25/100 Tablet) 0.5 tab PO TID [facility] Last Admin: 10/19/24 08:01 Dose: 0.5 tab Documented By: BRUCE Dextrose (Dextrose 50 % 25 Gm/50 Ml Syringe) 25 gm IVPUSH Q15M PRN; Protocol PRN Reason: per Hypoglycemia Standing Ord. Dolutegravir Sodium (Dolutegravir Sodium 50 Mg Tablet) 50 mg PO DAILY [facility] Last Admin: 10/19/24 08:01 Dose: 50 mg Documented By: BRUCE Enoxaparin Sodium (Enoxaparin Sodium 30 Mg/0.3 Ml Syringe) 30 mg SUBCUT Q24H [facility] Last Admin: 10/19/24 08:01 Dose: 30 mg Documented By: BRUCE Escitalopram Oxalate (Escitalopram Oxalate 10 Mg Tablet) 10 mg PO DAILY [facility] Last Admin: 10/19/24 08:01 Dose: 10 mg Documented By: BRUCE Gabapentin (Gabapentin 600 Mg Tablet) 600 mg PO BID [facility] Last Admin: 10/19/24 08:01 Dose: 600 mg Documented By: BRUCE Hydralazine HCl (Hydralazine Hcl 20 Mg/Ml Vial) 5 mg IVPUSH Q4H PRN; Protocol PRN Reason: SBP > 160 Last Admin: 10/18/24 02:53 Dose: 5 mg Documented By: SARAHI Hydromorphone HCl (Hydromorphone Hcl 0.5 Mg/0.5 Ml Syringe) 0.5 mg IVPUSH Q3H PRN; Protocol PRN Reason: Pain, Severe (Pain Scale 7-10) Last Admin: 10/18/24 06:15 Dose: 0.5 mg Documented By: SARAHI Acetaminophen (Ofirmev) 1,000 mg in 100 mls @ 400 mls/hr IV Q6H PRN PRN Reason: Pain, Mild (Pain Scale 1-3) Insulin Human Lispro (Insulin Lispro 100 Unit/Ml 3 Ml Vial) 0 unit SUBCUT QIDACHS [facility]; Protocol Last Admin: 10/19/24 07:53 Dose: Not Given Documented By: BRUCE Non-Admin Reason: No Insulin Coverage Lamivudine (Lamivudine 150 Mg Tablet) 150 mg PO DAILY [facility] Last Admin: 10/19/24 08:01 Dose: 150 mg Documented By: BRUCE Melatonin (Melatonin 3 Mg Tablet) 6 mg PO BEDTIME PRN PRN Reason: Insomnia Omeprazole (Omeprazole 40 Mg Capsule.) 40 mg PO BID@0630,1630 [facility] Last Admin: 10/19/24 05:12 Dose: 40 mg Documented By: SARAHI Ondansetron HCl (Ondansetron Hcl 4 Mg/2 Ml Vial) 4 mg IVPUSH Q8H PRN PRN Reason: Nausea and Vomiting Oxycodone HCl (Oxycodone Hcl Immed Release 5 Mg Tablet) 5 mg PO Q6H PRN PRN Reason: Pain, Moderate(Pain Scale 4-6) Last Admin: 10/19/24 05:12 Dose: 5 mg Documented By: SARAHI Pravastatin Sodium (Pravastatin Sodium 40 Mg Tablet) 40 mg PO BEDTIME [facility] Last Admin: 10/18/24 20:42 Dose: 40 mg Documented By: SARAHI Sodium Chloride (0.9 % Sodium Chloride Flush 3 Ml Syringe) 3 ml IVFLUSH QSHIFT [facility] Last Admin: 10/19/24 08:00 Dose: 3 ml Documented By: BRUCE Tamsulosin HCl (Tamsulosin Hcl 0.4 Mg Capsule) 0.4 mg PO DAILY@1730 [facility] Last Admin: 10/18/24 16:54 Dose: 0.4 mg Documented By: BRUCE Trazodone HCl (Trazodone Hcl 100 Mg Tablet) 200 mg PO DAILY@1700 PRN PRN Reason: Insomnia Last Admin: 10/19/24 00:27 Dose: 200 mg Documented By: SARAHI Labs 10/17/24 06:53 10/19/24 07:32 Labs: Laboratory Results - last 24 hr 10/18/24 10/18/24 10/18/24 12:23 16:15 20:13 Anion Gap Estim Creat Clear Calc Estimated GFR POC Glucose 240 H 109 134 H Random Glucose Calcium 10/19/24 10/19/24 07:32 07:40 Anion Gap 13 Estim Creat Clear Calc 32.7 Estimated GFR 33 POC Glucose 111 Random Glucose 125 H Calcium 9.2 Procedures Date of Service Date of Service: 10/19/24 Progress Note: A&P Assessment and plan (1) Partial small bowel obstruction: Status: Acute Assessment and Plan: Symptoms have resolved Tolerating diet well Okay to DC home Kidney functions back to baseline Discussed with hospitalist service Patient also instructed to follow up with his PCP Time Spent With Patient Time: Total time managing care of this patient today ____ minutes. Quality Stroke Does the patient have a stroke diagnosis?: No VTE Prior VTE?: No VTE Risk Level:: Surgical - moderate VTE Device Contraindication: N/A - Device Ordered VTE Drug Contraindication: N/A - Med Ordered
[2024-10-19 11:17] LABS: Glucose, Whole Blood 130 mg/dL (60-115)
--- NOTE | 2024-10-19 11:45 | P.DS_ITS ---
DS: Providers Provider Date of Service: 10/19/24 Date of admission: 10/16/24 23:48 Date of discharge: 10/19/24 Primary care physician: Mora Gooden MD Attending physician on admission: Jacky Vo Consults: 10/16/24 23:52 Consult to Hospitalist Routine Comment: Consulting Provider: [facility] Hospitalists Reason For Exam: SBO, Diabetes, med management Attending physician on discharge: Jourdan Blankenship DS: Diagnosis Discharge Diagnosis (1) Partial small bowel obstruction: Status: Acute DS: Summary Hospital Course Hospital Course: HPI AT ADMISSION: Dhiraj Huntley is a 74 year old male with a history of stage IV CKD, recurrent SBO, cholecystectomy, splenectomy, colectomy, small- bowel resection who presented to the emergency room with abdominal pain nausea and vomiting that started a few hours prior. Patient states this feels like his previous small-bowel obstructions. Denies fever, chills. Pain was located in the periumbilical and epigastric area. Patient had CT in the ED showing a distended loop of bowel and proximal small bowel dilation with air-fluid levels. NG tube was placed in the ED. patient now feeling better pain is improving, abdomen is less distended, currently not nauseous, no recent episodes of vomiting. He continues to have output via ostomy. HOSPITAL COURSE: He was admitted to the surgical service for further treatment of the SBO. Hospitalist consult was obtained for management of his medical comorbidities. He felt improved symptomatically the following day with a benign abd exam and scant NGT output. His ostomy continued to function. His NGT was clamped with scant residual and was removed. His diet was slowly advanced following to clear liquids and then solids as tolerated. He had an MARY JO on CKD on admission and his renal function improved slowly with IVF. On the day of discharge, he was tolerating a solid diet without abd pain, nausea or vomiting. He had good ostomy output. He was hemodynamically stable. His abdomen was benign. His renal function was back to baseline upon discharge. He was discharged to home on 10/19/24 in stable condition. He is to follow up with his PCP upon discharge. Status at Discharge Overall status at discharge: patient is progressing back to baseline Time Attestation Discharge Coordination Time (in mins): 30 Quality: Safe Use of Opioids Does Pt have an Active Cancer Diagnosis on the Problem List?: No Quality: Stroke Does the patient have a stroke diagnosis?: No Physical Exam Vital Signs: Vital Signs: Last Vital Signs Temp 98.4 F 10/19/24 07:42 Pulse 53 10/19/24 07:42 Resp 16 10/19/24 07:42 BP 157/69 H 10/19/24 08:01 Pulse Ox 92 10/19/24 07:42 O2 Del Method Room Air 10/19/24 07:42 O2 Flow Rate 2 10/17/24 13:47 BMI result Body Mass Index 28.3 Const: General: comfortable and alert Orientation/consciousness: patient oriented x3 GI: Other: ostomy with good gas and stool output Inspection: No distended Palpation (GI): Soft to palpation and nontender Neuro: General: patient oriented x3 DS: Data Data Completed and Pending Completed studies during hospitalization [Text1]: Procedures Drainage of Abdomen Skin, External Approach (12/18/22) Drainage of Left Lower Leg Skin, External Approach (04/26/24) Excision of Small Intestine, Open Approach (12/18/22) Excision of Stomach, Pylorus, Via Natural or Artificial Opening Endoscopic, Diagnostic (06/06/21) Insertion of Infusion Device into Superior Vena Cava, Percutaneous Approach (12/18/22) Introduction of Other Therapeutic Substance into Upper GI, Via Natural or Artificial Opening Endoscopic (06/06/21) Release Small Intestine, Open Approach (12/18/22) Transfusion of Nonautologous Red Blood Cells into Peripheral Vein, Percutaneous Approach (06/06/21) Ultrasonography of Superior Vena Cava, Guidance (12/18/22) Discharge Plan Discharge Anticipated Discharge Date/Time: 10/19/24 13:02 Patient Disposition: Home, Self-Care Discharge Diagnosis: small bowel obstruction Referrals: Mora Gooden MD [Primary Care Provider, Medical] - 1 Week Discharge Medications: Continued gabapentin 600 mg Tablet 600 mg PO BID cetirizine 10 mg Tablet 10 mg PO DAILY PRN (Reason: Allergic Symptoms) pravastatin 40 mg Tablet 40 mg PO BEDTIME trazodone 100 mg Tablet 200 mg PO DAILY@1700 PRN (Reason: Insomnia) albuterol sulfate 90 mcg/actuation Hfa Aerosol Inhaler 2 puff INHALATION QID PRN (Reason: Respiratory Distress) buprenorphine-naloxone 8-2 mg Film 2 film SUBLINGUAL DAILY amlodipine 5 mg tablet 5 mg PO DAILY Dovato 50-300 mg tablet 1 tab PO DAILY Trulicity 0.75 mg/0.5 mL pen injector 0.75 mg subcut MO@0900 acetaminophen 500 mg tablet 1,000 mg PO Q4H PRN (Reason: Pain) Rx Instructions: DO NOT EXCEED 3 GRAMS PER DAY tamsulosin 0.4 mg capsule 0.4 mg PO DAILY furosemide 80 mg tablet 80 mg PO BID@0900,1700 Fiber Therapy (m-cellulose) 500 mg tablet 500 mg PO BID escitalopram oxalate 10 mg tablet 10 mg PO DAILY Jardiance 10 mg tablet 10 mg PO DAILY omeprazole 40 mg capsule,delayed release(DR/EC) 40 mg PO BID@0630,1630 buprenorphine-naloxone 8-2 mg film 1 film sublingual BEDTIME carbidopa-levodopa 25-100 mg tablet 0.5 tab PO TID docusate sodium 100 mg capsule 100 mg PO DAILY PRN (Reason: constipation) Discharge Orders: Discharge Order (Routine); Ordered 10/19/24 Ordered By: Jourdan Blankenship Diet: Advance to usual diet Activity on Discharge: As tolerated Stand Alone Forms: Patient Portal Discharge page Print Language: Syriac Care Plan Goals: Returned to baseline Health Concerns: Chronic kidney disease History of small-bowel obstruction from previous surgery Plan of Treatment: Follow up with primary care physician Stoma care Assessment: Doing well currently Patient Instructions: Bowel Obstruction (DC) Discharge Date/Time: 10/19/24 14:29
--- NOTE | 2024-10-19 13:34 | MHC.CM.PN ---
PT CLEARED TO DC HOME TODAY WITH [employer] OF [employer] PT TO ARRANGE TRANSPORT
== END 2024-10-19 14:29 | disposition home or self-care (01) | DRG 386 ==
LOC: HO.ED 23:49 → HO.EDOVER 23:59 → HO.S3 10-17 06:55
PROVIDERS: Student in an Organized Health Care Education/Training Program; Admitting Provider Surgery; Emergency Provider Emergency Medicine; PCP Internal Medicine; Visit Provider Surgery
DX: K51.912 Ulcerative colitis, unspecified with intestinal obstruction (principal); F11.20 Opioid dependence, uncomplicated; N17.9 Acute kidney failure, unspecified; N18.4 Chronic kidney disease, stage 4 (severe); I12.9 Hypertensive chronic kidney disease with stage 1 through stage 4 chronic kidney disease, or unspecified chronic kidney disease; K21.9 Gastro-esophageal reflux disease without esophagitis; E78.5 Hyperlipidemia, unspecified; G20.C Parkinsonism, unspecified; E11.22 Type 2 diabetes mellitus with diabetic chronic kidney disease; Z21 Asymptomatic human immunodeficiency virus [HIV] infection status; Z93.3 Colostomy status; Z87.891 Personal history of nicotine dependence; Z79.85 Long-term (current) use of injectable non-insulin antidiabetic drugs; Z79.899 Other long term (current) drug therapy
CPT/HCPCS: 36415; 71045; 74176; 80048; 80053; 80307; 81003; 82947; 83690; 85025; 99285; J0360; J1171; J1650; J2270; J2405; J7120

== ENCOUNTER → 2024-10-16 22:05 | Outpatient (BNV) | payer OTHER, SELFPAY | PROVIDERS: Admitting Provider Surgery; Emergency Provider Emergency Medicine; PCP Internal Medicine; Visit Provider Radiology Diagnostic Radiology | DX: K56.690 Other partial intestinal obstruction (principal) | CPT/HCPCS: 74176 ==

== ENCOUNTER 2024-10-16 23:48 | Outpatient (BNV) | payer OTHER, SELFPAY | END 2024-10-17 23:52 | PROVIDERS: Admitting Provider Surgery; Emergency Provider Emergency Medicine; PCP Internal Medicine; Visit Provider Radiology Diagnostic Radiology | DX: Z46.59 Encounter for fitting and adjustment of other gastrointestinal appliance and device (principal) | CPT/HCPCS: 71045 ==

== ENCOUNTER → 2024-10-16 23:48 | Outpatient (BNV) | payer OTHER, SELFPAY | PROVIDERS: Admitting Provider Surgery; Emergency Provider Emergency Medicine; PCP Internal Medicine; Visit Provider Surgery | DX: K56.600 Partial intestinal obstruction, unspecified as to cause (principal) | CPT/HCPCS: 99222; 99232; 99238; 99499 ==

== ENCOUNTER → 2024-10-16 23:48 | Outpatient (BNV) | payer OTHER, SELFPAY | PROVIDERS: Admitting Provider Surgery; Emergency Provider Emergency Medicine; PCP Internal Medicine; Visit Provider Physician Assistant | DX: K56.600 Partial intestinal obstruction, unspecified as to cause (principal) | CPT/HCPCS: 99223; 99232; 99233 ==